=== PATIENT | female | born 1955 | race Caucasian/White ===

== ENCOUNTER 2016-07-27 08:10 | Emergency (ER) | payer MEDICARE, MEDICAID ==
[~2016-07-27 08:10] MED LIST: ACET50TA PO; ACID1CAP PO; ADV250INH INH; ALBU17IN2 INH; ALBUTEROL INH INH; ANTI25TA; ANTI50TA PO; ANTISOL30 AD; ANTIVERT PO; BABY81CH; BACITAB3 PO; BACT400T OR; CARI350T20 PO; CIPRHCOTIC AD; CLON0.5T PO; COLA100C PO; COLACE PO; CYCL10TA PO; DIFL50TA; DIPH2.5L; DIPH2.5L PO; DRIS50002 PO; DULC5TAB PO; ELIQ2.5T PO; ELIQ5TAB PO; FIBERCON PO; FLEX10TA2 PO; FLON0.05; FLON0.054; HYDR-3716 PO; HYDR12.55 PO; IBUP200C PO; IMMODIUM PO; IMOD2CHW PO; IMOD2TAB14 PO; KLON0.5T PO; KLONOPIN PO; KLOR20TA PO; LAMI25TA PO; LEVA250T PO; LIDO2JELLY TOP; LISI10TA4 PO; LOMO2.5T PO; LOPE2CA PO; LOPE2TAB PO; LORA10TA2 PO; MAAL600C PO; MACR100C3 PO; MECL-68 PO; MICR10CA PO; MIRA3350 PO; MOTR200T4; MOTR200T4 PO; NASONEX; NITR50CA2 PO; NORC7.5T PO; OMEP40CA2 PO; POLYBTL PO; POTA10CA2 PO; POTASSIUM PO; PROM125TA PO; PROM25SU5 PR; PROM25TA3 PO; PROM50TA2 PO; PROT1TAB2 PO; PULM0.25 INH; SALI0.653; SENO8.6T10 PO; SUDA30TA PO; SUDO30TA PO; TUMS500C PO; TYLE167L PO; TYLE325T5 PO; VALT500T OR; VICO5TAB; VICO5TAB PO; ZOFR20TA PO; ZPACK OR; ZYPR10TA PO; ZYPR2.5T2 PO; [UNRECOGNIZED DRUG - CODE] PO; compazine OR
[2016-07-27] MEDS ORDERED: AMOXICILLIN 500 MG CAP As Ordered ONE (09:53)
--- NOTE | 2016-07-27 10:19 | EDDOCDS ---
Physician Documentation [facility] Name: Sole Ramirez Age: 61 yrs Sex: Female : 1955 Arrival Date: 07/27/2016 Time: 08:10 Bed 18 Private MD: Koffi Shea Disposition: 07/27/16 09:32 Discharged to Home/Self Care. Impression: Streptococcal pharyngitis, Urinary tract infection, site not specified. - Condition is Stable. - Discharge Instructions: Strep Throat, Urinary Tract Infection. - Prescriptions for Amoxicillin 500 mg Oral Capsule - take 1 capsule by ORAL route every 8 hours for 10 days; 30 tablet. magic mouthwash Mucous Membrane Solution - as directed 5 milliliters by ORAL route 3-4 times daily As needed GARGLE, SWISH, SPIT. MAALOX, LIQUID BENADRYL, VISCOUS LIDOCAINE. 1:1:1; 237 milliliter. - Medication Reconciliation, Local Pharmacy Hours form. - Follow up: Emergency Department; When: As needed; Reason: Worsening of conditions. Follow up: Private Physician; When: 2 - 3 days; Reason: Wound/Symptom Recheck, Recheck today's complaints, Continuance of care. - Problem is new. - Symptoms are unchanged. Historical: - Allergies: Darvocet-N 100 (Hives); Darvon (itching); Demerol (Vomit); Macrodantin (Vomit); PENICILLINS (Hives); - Home Meds: 1. albuterol sulfate 90 mcg/actuation Inhl HFAA 2 puffs every 4-6 hours (Last dose: 07/27/2016 07:00) 2. Eliquis 5 mg oral tab 1 tab 2 times per day (Last dose: 07/27/2016 07:00) 3. hydrocodone-acetaminophen 7.5-750 mg Oral tab 1 tab every 4 hours as needed for Pain &#13(Last dose: 07/27/2016 07:00) 4. Klonopin 0.25 mg Oral tab 1 tab nightly (Last dose: 07/26/2016 20:00) 5. Lamictal 25 mg Oral tab 2 times per day (Last dose: 07/27/2016 07:00) 6. Lomotil 2.5-0.025 mg oral tab 2 tabs 3 times per day (Last dose: 07/27/2016 07:00) 7. loperamide 2 mg Oral tab as needed (Last dose: 07/27/2016 07:00) 8. meclizine 50 mg Oral tab 1 tab 2 times per day (Last dose: 07/27/2016 07:00) 9. Miralax 17 gram/dose Oral powd once daily (Last dose: 07/27/2016 07:00) 10. Motrin 400 mg Oral tab 1 tab every 4 hours (Last dose: 07/27/2016 07:00) 11. potassium chloride 20 mEq Oral TbER 1 tab as needed (Last dose: 07/27/2016 07:00) 12. promethazine 25 mg Oral tab 1 tab every 6 hours as needed (Last dose: 07/27/2016 07:00) 13. Sudafed 60 mg Oral tab 1 tab twice a day (Last dose: 07/27/2016 07:00) 14. Zyprexa 2.5 mg Oral tab once daily (Last dose: 07/27/2016 07:00) - PMHx: Anxiety; Asthma; Bipolar disorder; Cancer, Bone; Chronic Back pain; chronic vega catheter; DVT; GERD; spinal tumor; - PSHx: spinal tumor removed; Appendectomy; Hernia repair; - Social history: Smoking status: Patient states was never smoker of tobacco. No barriers to communication noted, Speaks appropriately for age. - Family history: Not pertinent. - : The pt / caregiver states he / she is on a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: Eliquis Home medication list is obtained from the patient, Unable to Verify Home Med List with the patient / caregiver. - Exposure Risk Screening:: None identified. Vital Signs: 07/27 08:16 BP 176 / 95; Pulse 82; Resp 18; Temp 97.3(TE); Pulse Ox 97% on R/A; Weight 77.11 kg / dem1 170 lbs; Height 4 ft. 11 in. (149.86 cm) (R); Pain 9/10; 09:36 BP 144 / 77; Pulse 74; Resp 18; Temp 97.9(O); Pulse Ox 96% on R/A; Pain 10/10; nb2 08:16 Body Mass Index 34.34 (77.11 kg, 149.86 cm) dem1 MDM: 08:30 Urinalysis Ordered. EDMS 08:30 Urine Culture Ordered. EDMS 08:39 Strep Screen, Nursing ordered. dt4 08:49 [facility] Payment Agreement was scanned into [employer] and attached to record. dm19 08:49 Financial registration complete. dm19 09:31 Amoxicillin 500 mg PO once ordered. dt4 Administered Medications: 09:52 Drug: Amoxicillin 500 mg [amoxicillin 500 mg capsule (1 caps)] Route: PO; ml6 Signatures: Dispatcher [employer] EDMS Adi Cain RN RN ml6 Letty Shaw, JOSH PAJesse dt4 Letty Henry dm19 The chart was reviewed and I authenticate all verbal orders and agree with the evaluation and treatment provided.Attachments: 08:49 [facility] Payment Agreement dm19 MTDD
--- NOTE | 2016-07-27 10:19 | EDDOCDS ---
Nurse's Notes [facility] Name: Sole Ramirez Age: 61 yrs Sex: Female : 1955 Arrival Date: 07/27/2016 Time: 08:10 Bed 18 Private MD: Koffi Shea Diagnosis: Streptococcal pharyngitis;Urinary tract infection, site not specified Presentation: 07/27 08:28 Presenting complaint: Patient states: states that she noticed blood in her catheter 2 ml6 days ago, patient states that she is suppose to change the tubing to her catheter biweekly, but hasn't changed it in two weeks. Adult Sepsis Screening: The patient does not have new or worsening altered mentation. Patient's respiratory rate is less than 22. Systolic blood pressure is greater than 100. Patient has a qSOFA score of 0- Negative Sepsis Screen. Suicide/Homicide risk assessment- the patient denies having any suicidal and/or homicidal ideations and does not present with any other emotional, behavioral or mental health complaints. Status: Patient is not a community service representative or dependent. Transition of care: patient was not received from another setting of care. 08:28 Acuity: KIM Level 4 ml6 08:28 Method Of Arrival: Ambulance ml6 Triage Assessment: 08:28 General: Appears in no apparent distress, comfortable, Behavior is appropriate for age, ml6 cooperative. Pain: Denies pain. HIV screening NA for this visit Offered previously. Neurological: No deficits noted. Level of Consciousness is awake, alert, Oriented to person, place, time, Players [employer] Representative are equal bilaterally Moves all extremities. Full function Gait is steady, Speech is normal. Cardiovascular: No deficits noted. Capillary refill < 3 seconds is brisk Heart tones S1 S2 present Edema is absent. Pulses are all present. : Vega in place to gravity drainage. Historical: - Allergies: Darvocet-N 100 (Hives); Darvon (itching); Demerol (Vomit); Macrodantin (Vomit); PENICILLINS (Hives); - Home Meds: 1. albuterol sulfate 90 mcg/actuation Inhl HFAA 2 puffs every 4-6 hours (Last dose: 07/27/2016 07:00) 2. Eliquis 5 mg oral tab 1 tab 2 times per day (Last dose: 07/27/2016 07:00) 3. hydrocodone-acetaminophen 7.5-750 mg Oral tab 1 tab every 4 hours as needed for Pain &#13(Last dose: 07/27/2016 07:00) 4. Klonopin 0.25 mg Oral tab 1 tab nightly (Last dose: 07/26/2016 20:00) 5. Lamictal 25 mg Oral tab 2 times per day (Last dose: 07/27/2016 07:00) 6. Lomotil 2.5-0.025 mg oral tab 2 tabs 3 times per day (Last dose: 07/27/2016 07:00) 7. loperamide 2 mg Oral tab as needed (Last dose: 07/27/2016 07:00) 8. meclizine 50 mg Oral tab 1 tab 2 times per day (Last dose: 07/27/2016 07:00) 9. Miralax 17 gram/dose Oral powd once daily (Last dose: 07/27/2016 07:00) 10. Motrin 400 mg Oral tab 1 tab every 4 hours (Last dose: 07/27/2016 07:00) 11. potassium chloride 20 mEq Oral TbER 1 tab as needed (Last dose: 07/27/2016 07:00) 12. promethazine 25 mg Oral tab 1 tab every 6 hours as needed (Last dose: 07/27/2016 07:00) 13. Sudafed 60 mg Oral tab 1 tab twice a day (Last dose: 07/27/2016 07:00) 14. Zyprexa 2.5 mg Oral tab once daily (Last dose: 07/27/2016 07:00) - PMHx: Anxiety; Asthma; Bipolar disorder; Cancer, Bone; Chronic Back pain; chronic vega catheter; DVT; GERD; spinal tumor; - PSHx: spinal tumor removed; Appendectomy; Hernia repair; - Social history: Smoking status: Patient states was never smoker of tobacco. No barriers to communication noted, Speaks appropriately for age. - Family history: Not pertinent. - : The pt / caregiver states he / she is on a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: Eliquis Home medication list is obtained from the patient, Unable to Verify Home Med List with the patient / caregiver. - Exposure Risk Screening:: None identified. Screenin:16 Screening information is obtained from the patient. Fall risk: No risks identified. ml6 Assistance ADL's: requires no assistance with activities of daily living. Abuse/DV Screen: The patient / caregiver reports he/she is: not in a situation that causes fear, pain or injury. Nutritional screening: No deficits noted. Advance Directives: Currently, there is no health care proxy. home support is adequate. Assessment: 08:38 General: Appears in no apparent distress, comfortable. General: see triage assessment. ml6 Pain: Denies pain. 10:17 General: Appears in no apparent distress, comfortable, Behavior is appropriate for age, ml6 cooperative. Pain: Denies pain. Neurological: No deficits noted. Level of Consciousness is awake, alert, Oriented to person, place, time, Players [employer] Representative are equal bilaterally. Cardiovascular: No deficits noted. Capillary refill < 3 seconds is brisk in bilateral fingers toes. Respiratory: No deficits noted. Airway is patent Respiratory effort is even, unlabored, Respiratory pattern is regular, symmetrical, Breath sounds are clear bilaterally. GI: No deficits noted. Abdomen is flat, non- distended Bowel sounds present X 4 quads. Abd is soft and non tender X 4 quads. Vital Signs: 08:16 BP 176 / 95; Pulse 82; Resp 18; Temp 97.3(TE); Pulse Ox 97% on R/A; Weight 77.11 kg; dem1 Height 4 ft. 11 in. (149.86 cm) (R); Pain 9/10; 09:36 BP 144 / 77; Pulse 74; Resp 18; Temp 97.9(O); Pulse Ox 96% on R/A; Pain 10/10; nb2 08:16 Body Mass Index 34.34 (77.11 kg, 149.86 cm) [facility] Vitals: 08:16 Log In Time N/A - ambulance arrival. dem1 09:09 Strep Screen is obtained and tested: Positive. ml6 ED Course: 08:11 Patient visited by Janis Pierre PCA. ar3 08:11 Koffi Shea MD is Private Physician. ar3 08:11 Patient moved to Waiting ar3 08:11 Patient moved to 18 ar3 08:18 Patient visited by Francisco Madden. dem1 08:18 Pt greeted and oriented to ED. Patient advised of names of staff involved in care, [facility] location of call [place], wait times and NPO status. Patient has correct armband on for positive identification. Placed in gown. Call light in reach. Side rails up X2. 08:29 Letty Shaw [facility]C [facility] dt4 08:29 Antonio Chairez MD is Attending Physician. dt4 08:29 Patient visited by Letty Shaw PA-C. dt4 08:29 Triage Initiated ml6 08:49 [facility] Payment Agreement was scanned into [employer] and attached to record. dm19 08:53 Patient visited by Adi Cain, GEORGE. ml6 09:00 Patient name changed from Sole\S\\S\Lettiere\S\ to Sole\S\J\S\Lettiere. EDMS 09:33 Adi Cain, GEORGE is Primary Nurse. ml6 09:37 Patient visited by Anita Ramos. nb2 10:16 The patient / caregiver is instructed regarding the plan of care and ED course. ml6 10:16 No IV's were initiated during this patient's visit. No procedures done that require ml6 assistance. Administered Medications: 09:52 Drug: Amoxicillin 500 mg [amoxicillin 500 mg capsule (1 caps)] Route: PO; ml6 Order Results: Lab Order: Urinalysis; SPEC'M 07/27/16 09:08 Test: APPEARANCE, URINE; Value: HAZY; Range: CLEAR; Status: F Test: COLOR, URINE; Value: YELLOW; Range: YELLOW; Status: F Test: PH,URINE; Value: 8.0; Range: 5.0-9.0; Units: UNITS; Status: F Test: SPECIFIC GRAVITY URINE AUTO; Value: 1.012; Range: 1.002-1.035; Status: F Test: PROTEIN, URINE AUTO; Value: 1+; Range: NEGATIVE; Abnormal: Above high normal; Units: mg/dL; Status: F Test: GLUCOSE, URINE (UA) AUTO; Value: NEGATIVE; Range: NEGATIVE; Units: mg/dL; Status: F Test: KETONE, URINE AUTO; Value: NEGATIVE; Range: NEGATIVE; Units: mg/dL; Status: F Test: UROBILINOGEN, URINE AUTO; Value: 0.2; Range: 0.0-2.0; Units: mg/dL; Status: F Test: BILIRUBIN, URINE AUTO; Value: NEGATIVE; Range: NEGATIVE; Status: F Test: NITRITE, URINE AUTO; Value: POSITIVE; Range: NEGATIVE; Status: F Test: LEUKOCYTE ESTERASE, URINE AUTO; Value: 1+; Range: NEGATIVE; Abnormal: Above high normal; Status: F Test: BLOOD, URINE BLOOD; Value: 2+; Range: NEGATIVE; Abnormal: Above high normal; Status: F Test: WBC, URINE AUTO; Value: 14; Range: 0-3; Abnormal: Above high normal; Units: /HPF; Status: F Test: RBC, URINE AUTO; Value: 177; Range: 0-3; Abnormal: Above high normal; Units: /HPF; Status: F Test: BACTERIA, URINE AUTO; Value: NEGATIVE; Range: NEGATIVE; Status: F Test: SQUAMOUS EPITHELIAL CELL UR AU; Value: 0; Range: 0-6; Units: /HPF; Status: F Test: MUCUS, URINE; Value: SMALL; Range: NEGATIVE; Status: F Test: HYALINE CAST, URINE AUTO; Value: 0; Range: 0-1; Units: /LPF; Status: F Test: AMORPHOUS SEDIMENT; Value: SMALL; Range: NEGATIVE; Abnormal: Above high normal; Status: F Outcome: 09:32 Discharge ordered by Provider. dt4 10:18 Discharge Assessment: patient administered narcotics - no. The following High Risk ml6 Discharge criteria are identified: None. Discharged to home via wheelchair. Condition: stable. Discharge instructions given to patient, Instructed on discharge instructions, follow up and referral plans. medication usage, Demonstrated understanding of instructions, medications, Pt was receptive of discharge instructions/ teaching. Prescriptions given X 2. No special radiology studies were completed. Property sent home with patient. :Personal belongings accompany Pt. 10:18 Patient left the ED. ml6 Signatures: Dispatcher [employer] EDMS Adi Cain RN RN ml6 Janis Pierre, SWEATBAND PERFORATOR SWEATBAND PERFORATOR ar3 Francisco Madden dem1 Letty Shaw PA-C PA-C dt4 Anita Ramos2 Letty Henry dm19 Corrections: (The following items were deleted from the chart) 08:18 08:16 BP 176 / 95; Pulse 82bpm; Resp 18bpm; Pulse Ox 97% RA; Temp 97.3F Temporal; dem1 Height 4 ft. 11 in. Reported; Pain 9/10; dem1 MTDD
--- NOTE | 2016-07-30 10:45 | EDDOCDS ---
Physician Documentation [facility] Name: Sole Ramirez Age: 61 yrs Sex: Female : 1955 Arrival Date: 07/27/2016 Time: 08:10 Bed 18 Private MD: Koffi Shea Disposition: 07/27/16 09:32 Discharged to Home/Self Care. Impression: Streptococcal pharyngitis, Urinary tract infection, site not specified. - Condition is Stable. - Discharge Instructions: Strep Throat, Urinary Tract Infection. - Prescriptions for Amoxicillin 500 mg Oral Capsule - take 1 capsule by ORAL route every 8 hours for 10 days; 30 tablet. magic mouthwash Mucous Membrane Solution - as directed 5 milliliters by ORAL route 3-4 times daily As needed GARGLE, SWISH, SPIT. MAALOX, LIQUID BENADRYL, VISCOUS LIDOCAINE. 1:1:1; 237 milliliter. - Medication Reconciliation, Local Pharmacy Hours form. - Follow up: Emergency Department; When: As needed; Reason: Worsening of conditions. Follow up: Private Physician; When: 2 - 3 days; Reason: Wound/Symptom Recheck, Recheck today's complaints, Continuance of care. - Problem is new. - Symptoms are unchanged. Historical: - Allergies: Darvocet-N 100 (Hives); Darvon (itching); Demerol (Vomit); Macrodantin (Vomit); PENICILLINS (Hives); - Home Meds: 1. albuterol sulfate 90 mcg/actuation Inhl HFAA 2 puffs every 4-6 hours (Last dose: 07/27/2016 07:00) 2. Eliquis 5 mg oral tab 1 tab 2 times per day (Last dose: 07/27/2016 07:00) 3. hydrocodone-acetaminophen 7.5-750 mg Oral tab 1 tab every 4 hours as needed for Pain &#13(Last dose: 07/27/2016 07:00) 4. Klonopin 0.25 mg Oral tab 1 tab nightly (Last dose: 07/26/2016 20:00) 5. Lamictal 25 mg Oral tab 2 times per day (Last dose: 07/27/2016 07:00) 6. Lomotil 2.5-0.025 mg oral tab 2 tabs 3 times per day (Last dose: 07/27/2016 07:00) 7. loperamide 2 mg Oral tab as needed (Last dose: 07/27/2016 07:00) 8. meclizine 50 mg Oral tab 1 tab 2 times per day (Last dose: 07/27/2016 07:00) 9. Miralax 17 gram/dose Oral powd once daily (Last dose: 07/27/2016 07:00) 10. Motrin 400 mg Oral tab 1 tab every 4 hours (Last dose: 07/27/2016 07:00) 11. potassium chloride 20 mEq Oral TbER 1 tab as needed (Last dose: 07/27/2016 07:00) 12. promethazine 25 mg Oral tab 1 tab every 6 hours as needed (Last dose: 07/27/2016 07:00) 13. Sudafed 60 mg Oral tab 1 tab twice a day (Last dose: 07/27/2016 07:00) 14. Zyprexa 2.5 mg Oral tab once daily (Last dose: 07/27/2016 07:00) - PMHx: Anxiety; Asthma; Bipolar disorder; Cancer, Bone; Chronic Back pain; chronic vega catheter; DVT; GERD; spinal tumor; - PSHx: spinal tumor removed; Appendectomy; Hernia repair; - Social history: Smoking status: Patient states was never smoker of tobacco. No barriers to communication noted, Speaks appropriately for age. - Family history: Not pertinent. - : The pt / caregiver states he / she is on a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: Eliquis Home medication list is obtained from the patient, Unable to Verify Home Med List with the patient / caregiver. - Exposure Risk Screening:: None identified. Vital Signs: 07/27 08:16 BP 176 / 95; Pulse 82; Resp 18; Temp 97.3(TE); Pulse Ox 97% on R/A; Weight 77.11 kg / dem1 170 lbs; Height 4 ft. 11 in. (149.86 cm) (R); Pain 9/10; 09:36 BP 144 / 77; Pulse 74; Resp 18; Temp 97.9(O); Pulse Ox 96% on R/A; Pain 10/10; nb2 08:16 Body Mass Index 34.34 (77.11 kg, 149.86 cm) dem1 MDM: 08:30 Urinalysis Ordered. EDMS 08:30 Urine Culture Ordered. EDMS 08:39 Strep Screen, Nursing ordered. dt4 08:49 [facility] Payment Agreement was scanned into [employer] and attached to record. dm19 08:49 Financial registration complete. dm19 09:31 Amoxicillin 500 mg PO once ordered. dt4 11:38 T-Sheet-- Draft Copy was scanned into [employer] and attached to record. [facility] Administered Medications: 09:52 Drug: Amoxicillin 500 mg [amoxicillin 500 mg capsule (1 caps)] Route: PO; ml6 Signatures: Dispatcher [employer] Adi Barker, RN RN ml6 Letty Shaw, JOSH MORENO dt4 Sunitha Garcia Diane dm19 The chart was reviewed and I authenticate all verbal orders and agree with the evaluation and treatment provided.Attachments: 08:49 [facility] Payment Agreement dm19 11:38 T-Sheet-- Draft Copy [facility] Chart Complete MTDD
--- NOTE | 2016-07-30 10:45 | EDDOCDS ---
Nurse's Notes [facility] Name: Sole Ramirez Age: 61 yrs Sex: Female : 1955 Arrival Date: 07/27/2016 Time: 08:10 Bed 18 Private MD: Koffi Shea Diagnosis: Streptococcal pharyngitis;Urinary tract infection, site not specified Presentation: 07/27 08:28 Presenting complaint: Patient states: states that she noticed blood in her catheter 2 ml6 days ago, patient states that she is suppose to change the tubing to her catheter biweekly, but hasn't changed it in two weeks. Adult Sepsis Screening: The patient does not have new or worsening altered mentation. Patient's respiratory rate is less than 22. Systolic blood pressure is greater than 100. Patient has a qSOFA score of 0- Negative Sepsis Screen. Suicide/Homicide risk assessment- the patient denies having any suicidal and/or homicidal ideations and does not present with any other emotional, behavioral or mental health complaints. Status: Patient is not a service line layer or dependent. Transition of care: patient was not received from another setting of care. 08:28 Acuity: KIM Level 4 ml6 08:28 Method Of Arrival: Ambulance ml6 Triage Assessment: 08:28 General: Appears in no apparent distress, comfortable, Behavior is appropriate for age, ml6 cooperative. Pain: Denies pain. HIV screening NA for this visit Offered previously. Neurological: No deficits noted. Level of Consciousness is awake, alert, Oriented to person, place, time, Farmworker Machine are equal bilaterally Moves all extremities. Full function Gait is steady, Speech is normal. Cardiovascular: No deficits noted. Capillary refill < 3 seconds is brisk Heart tones S1 S2 present Edema is absent. Pulses are all present. : Vega in place to gravity drainage. Historical: - Allergies: Darvocet-N 100 (Hives); Darvon (itching); Demerol (Vomit); Macrodantin (Vomit); PENICILLINS (Hives); - Home Meds: 1. albuterol sulfate 90 mcg/actuation Inhl HFAA 2 puffs every 4-6 hours (Last dose: 07/27/2016 07:00) 2. Eliquis 5 mg oral tab 1 tab 2 times per day (Last dose: 07/27/2016 07:00) 3. hydrocodone-acetaminophen 7.5-750 mg Oral tab 1 tab every 4 hours as needed for Pain &#13(Last dose: 07/27/2016 07:00) 4. Klonopin 0.25 mg Oral tab 1 tab nightly (Last dose: 07/26/2016 20:00) 5. Lamictal 25 mg Oral tab 2 times per day (Last dose: 07/27/2016 07:00) 6. Lomotil 2.5-0.025 mg oral tab 2 tabs 3 times per day (Last dose: 07/27/2016 07:00) 7. loperamide 2 mg Oral tab as needed (Last dose: 07/27/2016 07:00) 8. meclizine 50 mg Oral tab 1 tab 2 times per day (Last dose: 07/27/2016 07:00) 9. Miralax 17 gram/dose Oral powd once daily (Last dose: 07/27/2016 07:00) 10. Motrin 400 mg Oral tab 1 tab every 4 hours (Last dose: 07/27/2016 07:00) 11. potassium chloride 20 mEq Oral TbER 1 tab as needed (Last dose: 07/27/2016 07:00) 12. promethazine 25 mg Oral tab 1 tab every 6 hours as needed (Last dose: 07/27/2016 07:00) 13. Sudafed 60 mg Oral tab 1 tab twice a day (Last dose: 07/27/2016 07:00) 14. Zyprexa 2.5 mg Oral tab once daily (Last dose: 07/27/2016 07:00) - PMHx: Anxiety; Asthma; Bipolar disorder; Cancer, Bone; Chronic Back pain; chronic vega catheter; DVT; GERD; spinal tumor; - PSHx: spinal tumor removed; Appendectomy; Hernia repair; - Social history: Smoking status: Patient states was never smoker of tobacco. No barriers to communication noted, Speaks appropriately for age. - Family history: Not pertinent. - : The pt / caregiver states he / she is on a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: Eliquis Home medication list is obtained from the patient, Unable to Verify Home Med List with the patient / caregiver. - Exposure Risk Screening:: None identified. Screenin:16 Screening information is obtained from the patient. Fall risk: No risks identified. ml6 Assistance ADL's: requires no assistance with activities of daily living. Abuse/DV Screen: The patient / caregiver reports he/she is: not in a situation that causes fear, pain or injury. Nutritional screening: No deficits noted. Advance Directives: Currently, there is no health care proxy. home support is adequate. Assessment: 08:38 General: Appears in no apparent distress, comfortable. General: see triage assessment. ml6 Pain: Denies pain. 10:17 General: Appears in no apparent distress, comfortable, Behavior is appropriate for age, ml6 cooperative. Pain: Denies pain. Neurological: No deficits noted. Level of Consciousness is awake, alert, Oriented to person, place, time, Farmworker Machine are equal bilaterally. Cardiovascular: No deficits noted. Capillary refill < 3 seconds is brisk in bilateral fingers toes. Respiratory: No deficits noted. Airway is patent Respiratory effort is even, unlabored, Respiratory pattern is regular, symmetrical, Breath sounds are clear bilaterally. GI: No deficits noted. Abdomen is flat, non- distended Bowel sounds present X 4 quads. Abd is soft and non tender X 4 quads. Vital Signs: 08:16 BP 176 / 95; Pulse 82; Resp 18; Temp 97.3(TE); Pulse Ox 97% on R/A; Weight 77.11 kg; dem1 Height 4 ft. 11 in. (149.86 cm) (R); Pain 9/10; 09:36 BP 144 / 77; Pulse 74; Resp 18; Temp 97.9(O); Pulse Ox 96% on R/A; Pain 10/10; nb2 08:16 Body Mass Index 34.34 (77.11 kg, 149.86 cm) [facility] Vitals: 08:16 Log In Time N/A - ambulance arrival. dem1 09:09 Strep Screen is obtained and tested: Positive. ml6 ED Course: 08:11 Patient visited by Janis Pierre PCA. ar3 08:11 Koffi Shea MD is Private Physician. ar3 08:11 Patient moved to Waiting ar3 08:11 Patient moved to 18 ar3 08:18 Patient visited by Francisco Madden. dem1 08:18 Pt greeted and oriented to ED. Patient advised of names of staff involved in care, [facility] location of call [place], wait times and NPO status. Patient has correct armband on for positive identification. Placed in gown. Call light in reach. Side rails up X2. 08:29 [facility] dt4 08:29 Antonio Chairez MD is Attending Physician. dt4 08:29 Patient visited by Letty Shaw PA-C. dt4 08:29 Triage Initiated ml6 08:49 [facility] Payment Agreement was scanned into [employer] and attached to record. dm19 08:53 Patient visited by Adi Cain, GEORGE. ml6 09:00 Patient name changed from Sole\S\\S\Lettiere\S\ to Sole\S\J\S\Lettiere. EDMS 09:33 Adi Cain, GEORGE is Primary Nurse. ml6 09:37 Patient visited by Anita Ramos. nb2 10:16 The patient / caregiver is instructed regarding the plan of care and ED course. ml6 10:16 No IV's were initiated during this patient's visit. No procedures done that require ml6 assistance. 11:38 T-Sheet-- Draft Copy was scanned into [employer] and attached to record. seh Administered Medications: 09:52 Drug: Amoxicillin 500 mg [amoxicillin 500 mg capsule (1 caps)] Route: PO; ml6 Order Results: Lab Order: Urinalysis; SPEC'M 07/27/16 09:08 Test: APPEARANCE, URINE; Value: HAZY; Range: CLEAR; Status: F Test: COLOR, URINE; Value: YELLOW; Range: YELLOW; Status: F Test: PH,URINE; Value: 8.0; Range: 5.0-9.0; Units: UNITS; Status: F Test: SPECIFIC GRAVITY URINE AUTO; Value: 1.012; Range: 1.002-1.035; Status: F Test: PROTEIN, URINE AUTO; Value: 1+; Range: NEGATIVE; Abnormal: Above high normal; Units: mg/dL; Status: F Test: GLUCOSE, URINE (UA) AUTO; Value: NEGATIVE; Range: NEGATIVE; Units: mg/dL; Status: F Test: KETONE, URINE AUTO; Value: NEGATIVE; Range: NEGATIVE; Units: mg/dL; Status: F Test: UROBILINOGEN, URINE AUTO; Value: 0.2; Range: 0.0-2.0; Units: mg/dL; Status: F Test: BILIRUBIN, URINE AUTO; Value: NEGATIVE; Range: NEGATIVE; Status: F Test: NITRITE, URINE AUTO; Value: POSITIVE; Range: NEGATIVE; Status: F Test: LEUKOCYTE ESTERASE, URINE AUTO; Value: 1+; Range: NEGATIVE; Abnormal: Above high normal; Status: F Test: BLOOD, URINE BLOOD; Value: 2+; Range: NEGATIVE; Abnormal: Above high normal; Status: F Test: WBC, URINE AUTO; Value: 14; Range: 0-3; Abnormal: Above high normal; Units: /HPF; Status: F Test: RBC, URINE AUTO; Value: 177; Range: 0-3; Abnormal: Above high normal; Units: /HPF; Status: F Test: BACTERIA, URINE AUTO; Value: NEGATIVE; Range: NEGATIVE; Status: F Test: SQUAMOUS EPITHELIAL CELL UR AU; Value: 0; Range: 0-6; Units: /HPF; Status: F Test: MUCUS, URINE; Value: SMALL; Range: NEGATIVE; Status: F Test: HYALINE CAST, URINE AUTO; Value: 0; Range: 0-1; Units: /LPF; Status: F Test: AMORPHOUS SEDIMENT; Value: SMALL; Range: NEGATIVE; Abnormal: Above high normal; Status: F Lab Order: Urine Culture; SPEC'M 07/27/16 09:08 Test: URINE CULTURE; Value: ORGANISM 1: ESCHERICHIA COLI; Status: F Test: URINE CULTURE; Value: ESCHERICHIA COLI; Status: F Test: URINE CULTURE; Value: COLONY COUNT CFU/ml >100,000; Status: F Test: URINE CULTURE; Value: GRAM NEG SENSI - VITEK 80; Status: F Test: URINE CULTURE; Value: Method: VIT2; Status: F Test: URINE CULTURE; Value: EXTD BRD SPCTRM BETA LACTAMASE -; Status: F Test: URINE CULTURE; Value: TRIMETHOPRIM/SULFAMETHOXAZOLE <=20 S; Status: F Test: URINE CULTURE; Value: AMPICILLIN >=32 R; Status: F Test: URINE CULTURE; Value: GENTAMICIN <=1 S; Status: F Test: URINE CULTURE; Value: NITROFURANTOIN <=16 S; Status: F Test: URINE CULTURE; Value: CEFAZOLIN <=4 S; Status: F Test: URINE CULTURE; Value: LEVOFLOXACIN >=8 R; Status: F Test: URINE CULTURE; Value: TOBRAMYCIN <=1 S; Status: F Test: URINE CULTURE; Value: CEFTRIAXONE <=1 S; Status: F Test: URINE CULTURE; Value: CEFTAZIDIME <=1 S; Status: F Test: URINE CULTURE; Value: AMPICILLIN/SULBACTAM 16 I; Status: F Test: URINE CULTURE; Value: PIPERACILLIN/TAZOBACTAM <=4 S; Status: F Test: URINE CULTURE; Value: AZTREONAM <=1 S; Status: F Test: URINE CULTURE; Value: ERTAPENEM <=0.5 S; Status: F Test: URINE CULTURE; Value: MEROPENEM <=0.25 S; Status: F Test: URINE CULTURE; Value: TIGECYCLINE <=0.5 S; Status: F Test: URINE CULTURE; Value: CEFEPIME <=1 S; Status: F Outcome: 09:32 Discharge ordered by Provider. dt4 10:18 Discharge Assessment: patient administered narcotics - no. The following High Risk ml6 Discharge criteria are identified: None. Discharged to home via wheelchair. Condition: stable. Discharge instructions given to patient, Instructed on discharge instructions, follow up and referral plans. medication usage, Demonstrated understanding of instructions, medications, Pt was receptive of discharge instructions/ teaching. Prescriptions given X 2. No special radiology studies were completed. Property sent home with patient. :Personal belongings accompany Pt. 10:18 Patient left the ED. ml6 Signatures: Dispatcher [employer] Adi Barker RN RN ml6 Janis Pierre, [employer] ar3 Francisco Madden dem1 Letty Shaw PA-C PA-C dt4 Sunitha Garcia Nicole nb2 McLear, Diane dm19 Corrections: (The following items were deleted from the chart) 08:18 08:16 BP 176 / 95; Pulse 82bpm; Resp 18bpm; Pulse Ox 97% RA; Temp 97.3F Temporal; dem1 Height 4 ft. 11 in. Reported; Pain 9/10; dem1 Chart Complete MTDD
--- NOTE | 2016-07-30 10:45 | EDDOCDS ---
Physician Documentation [facility] Name: Sole Ramirez Age: 61 yrs Sex: Female : 1955 Arrival Date: 07/27/2016 Time: 08:10 Bed 18 Private MD: Koffi Shea Disposition: 07/27/16 09:32 Discharged to Home/Self Care. Impression: Streptococcal pharyngitis, Urinary tract infection, site not specified. - Condition is Stable. - Discharge Instructions: Strep Throat, Urinary Tract Infection. - Prescriptions for Amoxicillin 500 mg Oral Capsule - take 1 capsule by ORAL route every 8 hours for 10 days; 30 tablet. magic mouthwash Mucous Membrane Solution - as directed 5 milliliters by ORAL route 3-4 times daily As needed GARGLE, SWISH, SPIT. MAALOX, LIQUID BENADRYL, VISCOUS LIDOCAINE. 1:1:1; 237 milliliter. - Medication Reconciliation, Local Pharmacy Hours form. - Follow up: Emergency Department; When: As needed; Reason: Worsening of conditions. Follow up: Private Physician; When: 2 - 3 days; Reason: Wound/Symptom Recheck, Recheck today's complaints, Continuance of care. - Problem is new. - Symptoms are unchanged. Historical: - Allergies: Darvocet-N 100 (Hives); Darvon (itching); Demerol (Vomit); Macrodantin (Vomit); PENICILLINS (Hives); - Home Meds: 1. albuterol sulfate 90 mcg/actuation Inhl HFAA 2 puffs every 4-6 hours (Last dose: 07/27/2016 07:00) 2. Eliquis 5 mg oral tab 1 tab 2 times per day (Last dose: 07/27/2016 07:00) 3. hydrocodone-acetaminophen 7.5-750 mg Oral tab 1 tab every 4 hours as needed for Pain &#13(Last dose: 07/27/2016 07:00) 4. Klonopin 0.25 mg Oral tab 1 tab nightly (Last dose: 07/26/2016 20:00) 5. Lamictal 25 mg Oral tab 2 times per day (Last dose: 07/27/2016 07:00) 6. Lomotil 2.5-0.025 mg oral tab 2 tabs 3 times per day (Last dose: 07/27/2016 07:00) 7. loperamide 2 mg Oral tab as needed (Last dose: 07/27/2016 07:00) 8. meclizine 50 mg Oral tab 1 tab 2 times per day (Last dose: 07/27/2016 07:00) 9. Miralax 17 gram/dose Oral powd once daily (Last dose: 07/27/2016 07:00) 10. Motrin 400 mg Oral tab 1 tab every 4 hours (Last dose: 07/27/2016 07:00) 11. potassium chloride 20 mEq Oral TbER 1 tab as needed (Last dose: 07/27/2016 07:00) 12. promethazine 25 mg Oral tab 1 tab every 6 hours as needed (Last dose: 07/27/2016 07:00) 13. Sudafed 60 mg Oral tab 1 tab twice a day (Last dose: 07/27/2016 07:00) 14. Zyprexa 2.5 mg Oral tab once daily (Last dose: 07/27/2016 07:00) - PMHx: Anxiety; Asthma; Bipolar disorder; Cancer, Bone; Chronic Back pain; chronic vega catheter; DVT; GERD; spinal tumor; - PSHx: spinal tumor removed; Appendectomy; Hernia repair; - Social history: Smoking status: Patient states was never smoker of tobacco. No barriers to communication noted, Speaks appropriately for age. - Family history: Not pertinent. - : The pt / caregiver states he / she is on a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: Eliquis Home medication list is obtained from the patient, Unable to Verify Home Med List with the patient / caregiver. - Exposure Risk Screening:: None identified. Vital Signs: 07/27 08:16 BP 176 / 95; Pulse 82; Resp 18; Temp 97.3(TE); Pulse Ox 97% on R/A; Weight 77.11 kg / dem1 170 lbs; Height 4 ft. 11 in. (149.86 cm) (R); Pain 9/10; 09:36 BP 144 / 77; Pulse 74; Resp 18; Temp 97.9(O); Pulse Ox 96% on R/A; Pain 10/10; nb2 08:16 Body Mass Index 34.34 (77.11 kg, 149.86 cm) dem1 MDM: 08:30 Urinalysis Ordered. EDMS 08:30 Urine Culture Ordered. EDMS 08:39 Strep Screen, Nursing ordered. dt4 08:49 [facility] Payment Agreement was scanned into [employer] and attached to record. dm19 08:49 Financial registration complete. dm19 09:31 Amoxicillin 500 mg PO once ordered. dt4 11:38 T-Sheet-- Draft Copy was scanned into [employer] and attached to record. [facility] Administered Medications: 09:52 Drug: Amoxicillin 500 mg [amoxicillin 500 mg capsule (1 caps)] Route: PO; ml6 Signatures: Dispatcher [employer] Adi Barker, RN RN ml6 Letty Shaw, JOSH MORENO dt4 Sunitha Garcia Diane dm19 The chart was reviewed and I authenticate all verbal orders and agree with the evaluation and treatment provided.Attachments: 08:49 [facility] Payment Agreement dm19 11:38 T-Sheet-- Draft Copy [facility] Chart Complete MTDD
== END 2016-07-27 10:18 | disposition home or self-care (01) ==
LOC: M ED 08:10
DX: N39.0 Urinary tract infection, site not specified (principal); J02.0 Streptococcal pharyngitis; J45.909 Unspecified asthma, uncomplicated; F41.9 Anxiety disorder, unspecified; F31.9 Bipolar disorder, unspecified; G89.4 Chronic pain syndrome; M51.9 Unspecified thoracic, thoracolumbar and lumbosacral intervertebral disc disorder; K21.9 Gastro-esophageal reflux disease without esophagitis; Z96.0 Presence of urogenital implants; Z79.01 Long term (current) use of a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; Z79.899 Other long term (current) drug therapy; Z88.5 Allergy status to narcotic agent; Z88.0 Allergy status to penicillin; Z88.1 Allergy status to other antibiotic agents; Z86.718 Personal history of other venous thrombosis and embolism

== ENCOUNTER 2016-07-29 07:01 | Emergency (ER) | payer MEDICARE, MEDICAID ==
--- NOTE | 2016-07-29 08:39 | REP ---
CT Head without contrast HISTORY: Trauma COMPARISON: 10/08/2015 There is no intraparenchymal hemorrhage, acute infarct, mass or midline shift. The ventricular system and cortical sulci are dilated consistent with minimal volume loss. There is no extra cerebral collection. There is no fracture. The visualized sinuses are clear. IMPRESSION: Minimal volume loss. Signed by Myles Nesbitt MD 07/29/2016 08:30 A
[2016-07-29] MEDS ORDERED: ANEXSIA, NORCO 7.5MG/325MG TABLET(HYDROCODONE/APAP) As Ordered ONE (08:45)
--- NOTE | 2016-07-29 09:01 | REP ---
Clinical: Trauma. Technique: AP, lateral, bilateral oblique and sunrise views of the right and left knee. Comparison: Left knee dated 07/05/2016. Findings: Moderate, symmetric, tricompartmental osteoarthritic degenerative changes are appreciated. Left knee is unchanged when compared to prior examination. There is no evidence for acute fracture / compression injury or subluxation. A small chronic left suprapatellar effusion cannot be excluded. No right effusion identified. Impression: 1. Moderate symmetric bilateral tricompartmental osteoarthritic degenerative changes. 2. Cannot exclude small chronic left suprapatellar effusion. Signed by Boyd Ford MD 07/29/2016 08:53 A
--- NOTE | 2016-07-29 09:12 | REP ---
CT study of the cervical spine without contrast: History: Trauma. Comparison CT study is from November 15, 2014. Technique: Helical scanning is acquired and overlapping 2 mm high resolution axial images were generated and reviewed at bone and soft tissue window settings. Coronal and sagittal multiplanar re-formations images are generated. CT findings: There is no evidence of cervical spine element fracture. No skull base fracture is seen. Cervical vertebral body heights are preserved. Alignment is normal. There is reversal of the normal cervical lordosis and a levoconvex curve is seen on coronal multiplanar re-formation images. This may reflect spasm. There is degenerative disc disease at C5-6 and some osteoarthritic facet changes are noted. There is osteoarthritis is C1-2 again noted. Facet joints are normally aligned bilaterally at each cervical level on multiplanar re-formations images. There is no evidence of intraspinal or paraspinal hematoma. No extra vertebral abnormality is seen. Impression: Degenerative spondylosis, reversal of the normal cervical lordosis, and levoconvex curvature consistent with spasm. Otherwise negative CT study of the cervical spine without contrast. No fracture seen. Signed by Trung Jensen MD 07/29/2016 10:30 A
--- NOTE | 2016-07-29 09:13 | REP ---
CT THORACIC SPINE WITHOUT CONTRAST: HISTORY: Trauma. There is no acute fracture or subluxation. There is no definite disc bulge or herniation. The spinal canal and neural foramina are patent. The intervertebral discs are normal in height. There is scoliosis of the mid and lower thoracic spine convex to the left. IMPRESSION: There is no acute fracture or subluxation. Signed by Myles Nesbitt MD 07/29/2016 09:29 A
--- NOTE | 2016-07-29 09:14 | REP ---
CT lumbosacral spine 07/29/2016 Indication: Trauma Comparison: CT abdomen pelvis 05/20/2015 Technique: 4 mm reconstructed axial images were obtained of the lumbosacral spine without contrast. Sagittal and coronal reconstructed images were also created. Findings: There is significant rotatory dextroscoliosis of the lumbar spine. Advanced degenerative disc changes are noted at L1-2, L4-5, L5- S1. There has been previous bilateral L5 laminectomy defects. There is no acute fracture or paraspinal widening. Stable 9 mm hyperdense focus within the lower pole left kidney most compatible with hemorrhagic cyst. 1.3 cm exophytic cyst is noted off lower pole kidney. There is dilatation of left renal pelvis most compatible with a extrarenal pelvis. Visualized portions of the SI joints are intact. Benign appearing erosions are seen within the lower sacrum and coccyx, most compatible with a meningocele. Impression: Significant rotatory dextroscoliosis of the lumbar spine. No acute fracture or spondylolisthesis. Degenerative disc changes at multiple levels as above. Previous bilateral L5 laminectomies. Benign appearing erosive changes within the sacrum/coccyx most compatible with a meningocele, and unchanged. Stable probable hemorrhagic cyst lower pole left kidney. 1.3 cm exophytic cyst also off lower pole left kidney Signed by Lucero Jacobsen MD 07/29/2016 09:05 A
[2016-07-29] MEDS ORDERED: NITROFURANTOIN (MACROBID) 100 MG CAP As Ordered ONE (13:22)
--- NOTE | 2016-07-29 13:59 | EDDOCDS ---
Nurse's Notes [facility] Name: Sole Ramirez Age: 61 yrs Sex: Female : 1955 Arrival Date: 07/29/2016 Time: 07:01 Bed 7 Private MD: Diagnosis: Unspecified injury of head;Contusion of back wall of thorax;Contusion of knee;Urinary tract infection, site not specified Presentation: 07/29 07:05 Presenting complaint: EMS states: Patient reports falling and getting back up herself, mgs patient now reporting neck, back and bilateral knee pain. Patient has blood in catheter. 07:20 Acute neurological deficits are not present. Mechanism of Injury: Fall out of bed. jr Adult Sepsis Screening: The patient does not have new or worsening altered mentation. Patient's respiratory rate is less than 22. Systolic blood pressure is greater than 100. Patient has a qSOFA score of 0- Negative Sepsis Screen. Suicide/Homicide risk assessment- the patient denies having any suicidal and/or homicidal ideations and does not present with any other emotional, behavioral or mental health complaints. 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 Transition of care: patient was not received from another setting of care. 07:20 Acuity: KIM Level 3 r 07:20 Method Of Arrival: Ambulance jr Triage Assessment: 07:19 General: Appears in no apparent distress. Pain: Location: right low back, right knee jjr and left knee and CHASE. HIV screening NA for this visit Offered previously. Musculoskeletal: No deficits noted. cervical spine is non-tender. Historical: - Allergies: PENICILLINS (Hives); Darvocet-N 100 (Hives); Demerol (Vomit); Darvon (itching); Macrodantin (Vomit); - Home Meds: 1. promethazine 25 mg Oral tab 1 tab every 6 hours as needed 2. hydrocodone-acetaminophen 7.5-750 mg Oral tab 1 tab every 4 hours as needed for Pain 3. Klonopin 0.25 mg Oral tab 1 tab nightly 4. Motrin 400 mg Oral tab 1 tab every 4 hours 5. Lamictal 25 mg Oral tab 2 times per day 6. Sudafed 60 mg Oral tab 1 tab twice a day 7. potassium chloride 20 mEq Oral cpER 1 tab as needed 8. Zyprexa 10 mg oral tab qhs 9. albuterol sulfate 90 mcg/actuation Inhl HFAA 2 puffs every 4-6 hours 10. meclizine 50 mg Oral tab 1 tab 2 times per day 11. Miralax 17 gram/dose Oral powd once daily 12. Eliquis 5 mg oral tab 1 tab 2 times per day 13. loperamide 2 mg Oral tab as needed 14. Lomotil 2.5-0.025 mg oral tab 2 tabs prn - PMHx: Anxiety; Asthma; Bipolar disorder; Chronic Back pain; chronic vega catheter; DVT; GERD; spinal tumor; - PSHx: spinal tumor removed; Appendectomy; Hernia repair; - Social history: Smoking status: Patient states was never smoker of tobacco. No barriers to communication noted, The patient speaks fluent Faroese. - Family history: Not pertinent. - : The pt / caregiver states he / she is on a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: Eliquis Home medication list is obtained from the patient. - Exposure Risk Screening:: None identified. Screenin:20 Fall Risk. jjr 07:25 Screening information is obtained from the patient. Fall risk: At risk due to gait aa3 disturbance, immobility, prior history of falls. Nutritional screening: No deficits noted. 09:53 Assistance ADL's: Requires assistance with housework, assistance is provided by Home aa3 Health Aides. Abuse/DV Screen: The patient / caregiver reports he/she is: not in a situation that causes fear, pain or injury. home support is adequate. 13:57 Advance Directives: Currently, there is no health care proxy. There is no active DNR aa3 order. Assessment: 07:25 General: Appears in no apparent distress, Behavior is cooperative. Pain: Location: left aa3 side of neck, lower back, Pain currently is 9 out of 10 on a pain scale. Neurological: Level of Consciousness is awake, alert, Oriented to person, place, time. Cardiovascular: Capillary refill < 3 seconds. Respiratory: Airway is patent Respiratory effort is even, unlabored, Respiratory pattern is regular, symmetrical. : Vega in place Patient has chronic vega catheter Urine is cloudy. Musculoskeletal: Reports numbness in right foot and left foot. 08:38 General: Patient currently getting scans done. . aa3 08:52 General: Appears in no apparent distress, comfortable, Behavior is cooperative. Pain: aa3 Location: left neck, bilateral knees, lower back Pain currently is 8 out of 10 on a pain scale. Neurological: Level of Consciousness is awake, alert, Oriented to person, place, time. 09:00 Reassessment: Reassessment: Patient's vega catheter bag switched to new bag. Urine in aa3 new bag, clear and yellow. No foul odor noted. . 09:44 Reassessment: Patient sleeping soundly in bed, with no distress noted. Respirations aa3 even and unlabored. Patient wakes easily to verbal stimuli. States her pain is still 8/10. Patient resting comfortably. Safety precautions in place, will continue to monitor.. 10:59 General: Appears in no apparent distress, comfortable, Behavior is appropriate for age, aa3 cooperative. Neurological: Level of Consciousness is awake, alert. Cardiovascular: Capillary refill < 3 seconds. Respiratory: Airway is patent Respiratory effort is even, unlabored, Respiratory pattern is regular, symmetrical. : Vega in place to gravity drainage Urine is clear. 11:45 General: Appears in no apparent distress, comfortable, Behavior is appropriate for age, ms18 cooperative, pleasant. Neurological: Level of Consciousness is awake, alert, obeys commands, Oriented to person, place, time. Respiratory: Airway is patent Respiratory effort is even, unlabored. : catheter changed at this time. Derm: Skin is pink, warm & dry. 12:26 General:. aa3 Vital Signs: 07:12 BP 129 / 72; Pulse 82; Resp 18; Temp 97.4(O); Pulse Ox 95% on R/A; Weight 58.97 kg (R); jr Height 4 ft. 11 in. (149.86 cm) (R); Pain 9/10; 13:12 BP 123 / 69; Pulse 82; Resp 18; Temp 97.6(O); Pulse Ox 98% on R/A; Pain 9/10; ct3 07:12 Body Mass Index 26.26 (58.97 kg, 149.86 cm) [facility] Vitals: 07:12 Log In Time N/A - ambulance arrival. [facility] ED Course: 07:01 Patient visited by Trudi Coon, Filter Pulp Washer. deg 07:01 Patient moved to Waiting deg 07:03 Patient moved to 13 deg 07:06 Patient moved to 7 deg 07:21 Triage Initiated jjr 07:25 Sunitha Nair,GEORGE is Primary Nurse. aa3 07:26 Patient visited by Sunitha Nair RN. aa3 07:46 Gab Longoria MD is Attending Physician. br1 07:54 Patient visited by Gab Longoria MD. br1 08:38 Patient visited by Sunitha Nair RN. aa3 08:52 Patient visited by Sunitha Nair RN. aa3 09:00 CT Head Without Contrast Returned. EDMS 09:12 [facility] Payment Agreement was scanned into [employer] and attached to record. mm15 09:13 [facility] Payment Agreement was scanned into [employer] and attached to record. mm15 09:23 Knee, Complete Returned. EDMS 09:23 CT Spine,Cervical W/o Contrast Returned. EDMS 09:23 CT Spine,Thoracic W/o Contrast Returned. EDMS 09:23 CT Spine, Lumbar W/o Contrast Returned. EDMS 09:53 The patient / caregiver is instructed regarding the plan of care and ED course. Diet: aa3 Patient given regular meal. Tolerated well. 09:55 Patient visited by Sunitha Nair RN. aa3 10:57 Patient visited by Renetta Dukes PCA. ct3 11:00 Patient visited by Sunitha Nair RN. aa3 11:45 Patient has correct armband on for positive identification. Placed in gown. Call light ms18 in reach. Property :Personal belongings accompany Pt. 11:45 Vega cath inserted 16 Fr. Balloon inflated. To gravity drainage. ms18 11:47 Patient visited by Flakita Oliva RN. ms18 12:30 Patient visited by Renetta Dukes PCA. ct3 13:08 Patient visited by Gab Longoria MD. br1 13:11 Daisy Rodriguez is Referral Physician. br1 13:11 [facility] is Referral Physician. br1 13:13 Patient visited by Renetta Dukes PCA. ct3 13:57 No IV's were initiated during this patient's visit. No procedures done that require aa3 assistance. Administered Medications: 08:52 Drug: HYDROcodone-acetaminophen 1 tabs [hydrocodone 7.5 mg-acetaminophen 325 mg tablet aa3 (1 tabs)] Route: PO; 13:24 Drug: Nitrofurantoin 100 mg [nitrofurantoin macrocrystal 50 mg capsule (2 caps)] Route: hs1 PO; Order Results: Radiology Order: CT Head Without Contrast Test: CT Head Without Contrast REASON FOR EXAMINATION: Trauma; CT Head without contrast; ; HISTORY: Trauma; ; COMPARISON: 10/08/2015; ; There is no intraparenchymal hemorrhage, acute infarct, mass or midline shift.; The ventricular system and cortical sulci are dilated consistent with minimal; volume loss. There is no extra cerebral collection. There is no fracture. The; visualized sinuses are clear.; ; IMPRESSION: Minimal volume loss.; ; ; ; ; Signed by; Myles Nesbitt MD 07/29/2016 08:30 A; Radiology Order: CT Spine,Cervical W/o Contrast Test: CT Spine,Cervical W/o Contrast REASON FOR EXAMINATION: Trauma; CT study of the cervical spine without contrast:; ; History: Trauma. Comparison CT study is from November 15, 2014.; ; Technique: Helical scanning is acquired and overlapping 2 mm high resolution; axial images were generated and reviewed at bone and soft tissue window settings.; Coronal and sagittal multiplanar re-formations images are generated.; ; CT findings: There is no evidence of cervical spine element fracture. No skull; base fracture is seen. Cervical vertebral body heights are preserved. Alignment; is normal. There is reversal of the normal cervical lordosis and a levoconvex; curve is seen on coronal multiplanar re-formation images. This may reflect; spasm. There is degenerative disc disease at C5-6 and some osteoarthritic facet; changes are noted. There is osteoarthritis is C1-2 again noted. Facet joints are; normally aligned bilaterally at each cervical level on multiplanar re-formations; images. There is no evidence of intraspinal or paraspinal hematoma. No extra; vertebral abnormality is seen.; ; Impression:; ; Degenerative spondylosis, reversal of the normal cervical lordosis, and; levoconvex curvature consistent with spasm. Otherwise negative CT study of the; cervical spine without contrast. No fracture seen.; ; ; Signed by; Trung Jensen MD 07/29/2016 10:30 A; Radiology Order: CT Spine,Thoracic W/o Contrast Test: CT Spine,Thoracic W/o Contrast REASON FOR EXAMINATION: Trauma; CT THORACIC SPINE WITHOUT CONTRAST:; ; HISTORY: Trauma.; ; There is no acute fracture or subluxation. There is no definite disc bulge or; herniation. The spinal canal and neural foramina are patent. The intervertebral; discs are normal in height. There is scoliosis of the mid and lower thoracic; spine convex to the left.; ; IMPRESSION:; ; There is no acute fracture or subluxation.; ; ; Signed by; Myles Nesbitt MD 07/29/2016 09:29 A; Radiology Order: CT Spine, Lumbar W/o Contrast Test: CT Spine, Lumbar W/o Contrast REASON FOR EXAMINATION: Trauma; CT lumbosacral spine 07/29/2016; ; Indication: Trauma; ; Comparison: CT abdomen pelvis 05/20/2015; ; Technique: 4 mm reconstructed axial images were obtained of the lumbosacral; spine without contrast. Sagittal and coronal reconstructed images were also; created.; ; Findings: There is significant rotatory dextroscoliosis of the lumbar spine.; Advanced degenerative disc changes are noted at L1-2, L4-5, L5- S1. There has; been previous bilateral L5 laminectomy defects.; ; There is no acute fracture or paraspinal widening.; ; Stable 9 mm hyperdense focus within the lower pole left kidney most compatible; with hemorrhagic cyst. 1.3 cm exophytic cyst is noted off lower pole kidney.; There is dilatation of left renal pelvis most compatible with a extrarenal; pelvis. Visualized portions of the SI joints are intact. Benign appearing; erosions are seen within the lower sacrum and coccyx, most compatible with a; meningocele.; ; Impression:; ; Significant rotatory dextroscoliosis of the lumbar spine. No acute fracture or; spondylolisthesis.; ; Degenerative disc changes at multiple levels as above. Previous bilateral L5; laminectomies.; ; Benign appearing erosive changes within the sacrum/coccyx most compatible with a; meningocele, and unchanged.; ; Stable probable hemorrhagic cyst lower pole left kidney. 1.3 cm exophytic cyst; also off lower pole left kidney; ; ; ; ; ; ; Signed by; Lucero Jacobsen MD 07/29/2016 09:05 A; Radiology Order: Knee, Complete Test: Knee, Complete REASON FOR EXAMINATION: Trauma; Clinical: Trauma.; ; Technique: AP, lateral, bilateral oblique and sunrise views of the right and; left knee.; ; Comparison: Left knee dated 07/05/2016.; ; Findings:; Moderate, symmetric, tricompartmental osteoarthritic degenerative changes are; appreciated. Left knee is unchanged when compared to prior examination. There; is no evidence for acute fracture / compression injury or subluxation. A small; chronic left suprapatellar effusion cannot be excluded. No right effusion; identified.; ; Impression:; 1. Moderate symmetric bilateral tricompartmental osteoarthritic degenerative; changes.; 2. Cannot exclude small chronic left suprapatellar effusion.; ; ; Signed by; Boyd Ford MD 07/29/2016 08:53 A; Outcome: 13:13 Discharge ordered by Provider. br1 13:56 Discharge Assessment: Patient awake and alert. Oriented to person, place and time. aa3 Patient verbalized understanding of disposition instructions. Patient has no functional deficits. patient administered narcotics - no. The following High Risk Discharge criteria are identified: None. Discharged to home via ambulance, via wheelchair. Condition: good. Discharge instructions given to patient, Instructed on discharge instructions, follow up and referral plans. medication usage, Demonstrated understanding of instructions, medications, Pt was receptive of discharge instructions/ teaching. Prescriptions given X 2. CT Study completed. 13:57 Patient left the ED. aa3 Signatures: Dispatcher [employer] EDMS Trudi Coon, Filter Pulp Washer Unit deg Gab Longoria MD MD br1 Jesusita Jacobson RN Flory Sim RN RN hs1 Renetta Dukes, LEADERSHIP COACH LEADERSHIP COACH ct3 Vale Morris mm15 Sunitha Nair RN RN aa3 Flakita Oliva,GEORGE RN ms18 Adi Vegas,GEORGE RN mgs MTDD
--- NOTE | 2016-07-29 13:59 | EDDOCDS ---
Physician Documentation [facility] Name: Sole Ramirez Age: 61 yrs Sex: Female : 1955 Arrival Date: 07/29/2016 Time: 07:01 Bed 7 Private MD: Disposition: 07/29/16 13:13 Discharged to Home/Self Care. Impression: Unspecified injury of head, Contusion of back wall of thorax, Contusion of knee, Urinary tract infection, site not specified. - Condition is Stable. - Discharge Instructions: Back Pain, Adult, Head Injury, Adult, Knee Effusion, Urinary Tract Infection. - Prescriptions for Macrobid 100 mg Oral Capsule - take 100 milligrams by ORAL route every 12 hours for 7 days; 14 capsule. ZOFRAN ODT 4 mg - dissolve 1 tablet by ORAL route 4 times per day As needed do not chew, do not swallow whole; 10 tablet. - Medication Reconciliation, Local Pharmacy Hours form. - Follow up: Daisy Rodriguez; When: 4 - 5 days; Reason: Recheck today's complaints. Follow up: [facility]; When: 4 - 5 days; Reason: Further diagnostic work-up. - Problem is new. - Symptoms have improved. - Notes: You were seen in the ED for back and knee pain after rolling out of bed. CT scan of the head, neck and back showed no acute fractures. Xrays of the knees revealed no acute fractures but possible small joint effusion on the left. Urine test from previous visits shows UTI as well. You may return home. You may switch the antibiotic to Macrobid and may take Zofran as needed for nausea. You may follow up at this week's already scheduled Orthopedic appointment and also with your primary doctor - please call to arrange to be seen. Return to the ED for any new or worse pain, or any other concerns. Historical: - Allergies: PENICILLINS (Hives); Darvocet-N 100 (Hives); Demerol (Vomit); Darvon (itching); Macrodantin (Vomit); - Home Meds: 1. promethazine 25 mg Oral tab 1 tab every 6 hours as needed 2. hydrocodone-acetaminophen 7.5-750 mg Oral tab 1 tab every 4 hours as needed for Pain 3. Klonopin 0.25 mg Oral tab 1 tab nightly 4. Motrin 400 mg Oral tab 1 tab every 4 hours 5. Lamictal 25 mg Oral tab 2 times per day 6. Sudafed 60 mg Oral tab 1 tab twice a day 7. potassium chloride 20 mEq Oral cpER 1 tab as needed 8. Zyprexa 10 mg oral tab qhs 9. albuterol sulfate 90 mcg/actuation Inhl HFAA 2 puffs every 4-6 hours 10. meclizine 50 mg Oral tab 1 tab 2 times per day 11. Miralax 17 gram/dose Oral powd once daily 12. Eliquis 5 mg oral tab 1 tab 2 times per day 13. loperamide 2 mg Oral tab as needed 14. Lomotil 2.5-0.025 mg oral tab 2 tabs prn - PMHx: Anxiety; Asthma; Bipolar disorder; Chronic Back pain; chronic vega catheter; DVT; GERD; spinal tumor; - PSHx: spinal tumor removed; Appendectomy; Hernia repair; - Social history: Smoking status: Patient states was never smoker of tobacco. No barriers to communication noted, The patient speaks fluent Turkish. - Family history: Not pertinent. - : The pt / caregiver states he / she is on a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: Eliquis Home medication list is obtained from the patient. - Exposure Risk Screening:: None identified. Vital Signs: 07/29 07:12 BP 129 / 72; Pulse 82; Resp 18; Temp 97.4(O); Pulse Ox 95% on R/A; Weight 58.97 kg / jjr 130.01 lbs (R); Height 4 ft. 11 in. (149.86 cm) (R); Pain 9/10; 13:12 BP 123 / 69; Pulse 82; Resp 18; Temp 97.6(O); Pulse Ox 98% on R/A; Pain 9/10; ct3 07:12 Body Mass Index 26.26 (58.97 kg, 149.86 cm) jjr MDM: 07:56 Misc. Nursing Order ordered. br1 07:57 CT Head Without Contrast Ordered. EDMS 07:57 HYDROcodone-acetaminophen 7.5 mg-325 mg 1 tabs PO once ordered. br1 07:57 CT Spine,Cervical W/o Contrast Ordered. EDMS 07:57 CT Spine,Thoracic W/o Contrast Ordered. EDMS 07:57 CT Spine, Lumbar W/o Contrast Ordered. EDMS 07:57 Knee, Complete Ordered. EDMS 08:55 Financial registration complete. mm15 09:12 [facility] Payment Agreement was scanned into [email or web address] and attached to record. mm15 09:13 [facility] Payment Agreement was scanned into [employer] and attached to record. mm15 11:00 Misc. Nursing Order ordered. br1 13:09 Nitrofurantoin 100 mg PO once ordered. br1 Administered Medications: 08:52 Drug: HYDROcodone-acetaminophen 1 tabs [hydrocodone 7.5 mg-acetaminophen 325 mg tablet aa3 (1 tabs)] Route: PO; 13:24 Drug: Nitrofurantoin 100 mg [nitrofurantoin macrocrystal 50 mg capsule (2 caps)] Route: hs1 PO; Signatures: Dispatcher [employer] EDMS Gab Longoria MD MD br1 Jesusita Jacobson RN RN Vale Sue mm15 Sunitha Nair RN RN aa3 Flory Lu RN hs1 The chart was reviewed and I authenticate all verbal orders and agree with the evaluation and treatment provided.Attachments: 09:13 [facility] Payment Agreement mm15 MTDD
--- NOTE | 2016-07-31 14:59 | EDDOCDS ---
Physician Documentation [facility] Name: Sole Ramirez Age: 61 yrs Sex: Female : 1955 Arrival Date: 07/29/2016 Time: 07:01 Bed 7 Private MD: Disposition: 07/29/16 13:13 Discharged to Home/Self Care. Impression: Unspecified injury of head, Contusion of back wall of thorax, Contusion of knee, Urinary tract infection, site not specified. - Condition is Stable. - Discharge Instructions: Back Pain, Adult, Head Injury, Adult, Knee Effusion, Urinary Tract Infection. - Prescriptions for Macrobid 100 mg Oral Capsule - take 100 milligrams by ORAL route every 12 hours for 7 days; 14 capsule. ZOFRAN ODT 4 mg - dissolve 1 tablet by ORAL route 4 times per day As needed do not chew, do not swallow whole; 10 tablet. - Medication Reconciliation, Local Pharmacy Hours form. - Follow up: Daisy Rodriguez; When: 4 - 5 days; Reason: Recheck today's complaints. Follow up: [facility]; When: 4 - 5 days; Reason: Further diagnostic work-up. - Problem is new. - Symptoms have improved. - Notes: You were seen in the ED for back and knee pain after rolling out of bed. CT scan of the head, neck and back showed no acute fractures. Xrays of the knees revealed no acute fractures but possible small joint effusion on the left. Urine test from previous visits shows UTI as well. You may return home. You may switch the antibiotic to Macrobid and may take Zofran as needed for nausea. You may follow up at this week's already scheduled Orthopedic appointment and also with your primary doctor - please call to arrange to be seen. Return to the ED for any new or worse pain, or any other concerns. Historical: - Allergies: PENICILLINS (Hives); Darvocet-N 100 (Hives); Demerol (Vomit); Darvon (itching); Macrodantin (Vomit); - Home Meds: 1. promethazine 25 mg Oral tab 1 tab every 6 hours as needed 2. hydrocodone-acetaminophen 7.5-750 mg Oral tab 1 tab every 4 hours as needed for Pain 3. Klonopin 0.25 mg Oral tab 1 tab nightly 4. Motrin 400 mg Oral tab 1 tab every 4 hours 5. Lamictal 25 mg Oral tab 2 times per day 6. Sudafed 60 mg Oral tab 1 tab twice a day 7. potassium chloride 20 mEq Oral cpER 1 tab as needed 8. Zyprexa 10 mg oral tab qhs 9. albuterol sulfate 90 mcg/actuation Inhl HFAA 2 puffs every 4-6 hours 10. meclizine 50 mg Oral tab 1 tab 2 times per day 11. Miralax 17 gram/dose Oral powd once daily 12. Eliquis 5 mg oral tab 1 tab 2 times per day 13. loperamide 2 mg Oral tab as needed 14. Lomotil 2.5-0.025 mg oral tab 2 tabs prn - PMHx: Anxiety; Asthma; Bipolar disorder; Chronic Back pain; chronic vega catheter; DVT; GERD; spinal tumor; - PSHx: spinal tumor removed; Appendectomy; Hernia repair; - Social history: Smoking status: Patient states was never smoker of tobacco. No barriers to communication noted, The patient speaks fluent Azeri. - Family history: Not pertinent. - : The pt / caregiver states he / she is on a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: Eliquis Home medication list is obtained from the patient. - Exposure Risk Screening:: None identified. Vital Signs: 07/29 07:12 BP 129 / 72; Pulse 82; Resp 18; Temp 97.4(O); Pulse Ox 95% on R/A; Weight 58.97 kg / jjr 130.01 lbs (R); Height 4 ft. 11 in. (149.86 cm) (R); Pain 9/10; 13:12 BP 123 / 69; Pulse 82; Resp 18; Temp 97.6(O); Pulse Ox 98% on R/A; Pain 9/10; ct3 07:12 Body Mass Index 26.26 (58.97 kg, 149.86 cm) jjr MDM: 07:56 Misc. Nursing Order ordered. br1 07:57 CT Head Without Contrast Ordered. EDMS 07:57 HYDROcodone-acetaminophen 7.5 mg-325 mg 1 tabs PO once ordered. br1 07:57 CT Spine,Cervical W/o Contrast Ordered. EDMS 07:57 CT Spine,Thoracic W/o Contrast Ordered. EDMS 07:57 CT Spine, Lumbar W/o Contrast Ordered. EDMS 07:57 Knee, Complete Ordered. EDMS 08:55 Financial registration complete. mm15 09:12 [facility] Payment Agreement was scanned into [employer] and attached to record. mm15 09:13 [facility] Payment Agreement was scanned into [employer] and attached to record. mm15 11:00 Misc. Nursing Order ordered. br1 13:09 Nitrofurantoin 100 mg PO once ordered. br1 07/30 11:32 T-Sheet-- Draft Copy was scanned into [employer] and attached to record. gb 11:32 Radiology Report was scanned into [employer] and attached to record. gb Administered Medications: 07/29 08:52 Drug: HYDROcodone-acetaminophen 1 tabs [hydrocodone 7.5 mg-acetaminophen 325 mg tablet aa3 (1 tabs)] Route: PO; 13:24 Drug: Nitrofurantoin 100 mg [nitrofurantoin macrocrystal 50 mg capsule (2 caps)] Route: hs1 PO; Signatures: Dispatcher [employer] EDMS Deonna Sy, Reg Reg gb Gab Longoria MD MD br1 Jesusita Jacobson RN RN Vale Sue mm15 Sunitha Nair RN RN aa3 Flory Lu RN hs1 The chart was reviewed and I authenticate all verbal orders and agree with the evaluation and treatment provided.Attachments: 09:13 [facility] Payment Agreement mm15 07/30 11:32 T-Sheet-- Draft Copy gb Chart Complete MTDD
--- NOTE | 2016-07-31 14:59 | EDDOCDS ---
Physician Documentation [facility] Name: Sole Ramirez Age: 61 yrs Sex: Female : 1955 Arrival Date: 07/29/2016 Time: 07:01 Bed 7 Private MD: Disposition: 07/29/16 13:13 Discharged to Home/Self Care. Impression: Unspecified injury of head, Contusion of back wall of thorax, Contusion of knee, Urinary tract infection, site not specified. - Condition is Stable. - Discharge Instructions: Back Pain, Adult, Head Injury, Adult, Knee Effusion, Urinary Tract Infection. - Prescriptions for Macrobid 100 mg Oral Capsule - take 100 milligrams by ORAL route every 12 hours for 7 days; 14 capsule. ZOFRAN ODT 4 mg - dissolve 1 tablet by ORAL route 4 times per day As needed do not chew, do not swallow whole; 10 tablet. - Medication Reconciliation, Local Pharmacy Hours form. - Follow up: Daisy Rodriguez; When: 4 - 5 days; Reason: Recheck today's complaints. Follow up: [facility]; When: 4 - 5 days; Reason: Further diagnostic work-up. - Problem is new. - Symptoms have improved. - Notes: You were seen in the ED for back and knee pain after rolling out of bed. CT scan of the head, neck and back showed no acute fractures. Xrays of the knees revealed no acute fractures but possible small joint effusion on the left. Urine test from previous visits shows UTI as well. You may return home. You may switch the antibiotic to Macrobid and may take Zofran as needed for nausea. You may follow up at this week's already scheduled Orthopedic appointment and also with your primary doctor - please call to arrange to be seen. Return to the ED for any new or worse pain, or any other concerns. Historical: - Allergies: PENICILLINS (Hives); Darvocet-N 100 (Hives); Demerol (Vomit); Darvon (itching); Macrodantin (Vomit); - Home Meds: 1. promethazine 25 mg Oral tab 1 tab every 6 hours as needed 2. hydrocodone-acetaminophen 7.5-750 mg Oral tab 1 tab every 4 hours as needed for Pain 3. Klonopin 0.25 mg Oral tab 1 tab nightly 4. Motrin 400 mg Oral tab 1 tab every 4 hours 5. Lamictal 25 mg Oral tab 2 times per day 6. Sudafed 60 mg Oral tab 1 tab twice a day 7. potassium chloride 20 mEq Oral cpER 1 tab as needed 8. Zyprexa 10 mg oral tab qhs 9. albuterol sulfate 90 mcg/actuation Inhl HFAA 2 puffs every 4-6 hours 10. meclizine 50 mg Oral tab 1 tab 2 times per day 11. Miralax 17 gram/dose Oral powd once daily 12. Eliquis 5 mg oral tab 1 tab 2 times per day 13. loperamide 2 mg Oral tab as needed 14. Lomotil 2.5-0.025 mg oral tab 2 tabs prn - PMHx: Anxiety; Asthma; Bipolar disorder; Chronic Back pain; chronic vega catheter; DVT; GERD; spinal tumor; - PSHx: spinal tumor removed; Appendectomy; Hernia repair; - Social history: Smoking status: Patient states was never smoker of tobacco. No barriers to communication noted, The patient speaks fluent Yoruba. - Family history: Not pertinent. - : The pt / caregiver states he / she is on a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: Eliquis Home medication list is obtained from the patient. - Exposure Risk Screening:: None identified. Vital Signs: 07/29 07:12 BP 129 / 72; Pulse 82; Resp 18; Temp 97.4(O); Pulse Ox 95% on R/A; Weight 58.97 kg / jjr 130.01 lbs (R); Height 4 ft. 11 in. (149.86 cm) (R); Pain 9/10; 13:12 BP 123 / 69; Pulse 82; Resp 18; Temp 97.6(O); Pulse Ox 98% on R/A; Pain 9/10; ct3 07:12 Body Mass Index 26.26 (58.97 kg, 149.86 cm) jjr MDM: 07:56 Misc. Nursing Order ordered. br1 07:57 CT Head Without Contrast Ordered. EDMS 07:57 HYDROcodone-acetaminophen 7.5 mg-325 mg 1 tabs PO once ordered. br1 07:57 CT Spine,Cervical W/o Contrast Ordered. EDMS 07:57 CT Spine,Thoracic W/o Contrast Ordered. EDMS 07:57 CT Spine, Lumbar W/o Contrast Ordered. EDMS 07:57 Knee, Complete Ordered. EDMS 08:55 Financial registration complete. mm15 09:12 [facility] Payment Agreement was scanned into HuodongxingHOST and attached to record. mm15 09:13 [facility] Payment Agreement was scanned into MEDHOST and attached to record. mm15 11:00 Misc. Nursing Order ordered. br1 13:09 Nitrofurantoin 100 mg PO once ordered. br1 07/30 11:32 T-Sheet-- Draft Copy was scanned into HuodongxingHOST and attached to record. gb 11:32 Radiology Report was scanned into HuodongxingHOST and attached to record. gb Administered Medications: 07/29 08:52 Drug: HYDROcodone-acetaminophen 1 tabs [hydrocodone 7.5 mg-acetaminophen 325 mg tablet aa3 (1 tabs)] Route: PO; 13:24 Drug: Nitrofurantoin 100 mg [nitrofurantoin macrocrystal 50 mg capsule (2 caps)] Route: hs1 PO; Signatures: Dispatcher MedHost EDMS Deonna Sy, Reg Reg gb Gab Longoria MD MD br1 Jesusita Jacobson RN RN Vale Sue mm15 Sunitha Nair RN RN aa3 Flory Lu RN hs1 The chart was reviewed and I authenticate all verbal orders and agree with the evaluation and treatment provided.Attachments: 09:13 [facility] Payment Agreement mm15 07/30 11:32 T-Sheet-- Draft Copy gb Chart Complete MTDD
--- NOTE | 2016-07-31 14:59 | EDDOCDS ---
Nurse's Notes [facility] Name: Sole Ramirez Age: 61 yrs Sex: Female : 1955 Arrival Date: 07/29/2016 Time: 07:01 Bed 7 Private MD: Diagnosis: Unspecified injury of head;Contusion of back wall of thorax;Contusion of knee;Urinary tract infection, site not specified Presentation: 07/29 07:05 Presenting complaint: EMS states: Patient reports falling and getting back up herself, mgs patient now reporting neck, back and bilateral knee pain. Patient has blood in catheter. 07:20 Acute neurological deficits are not present. Mechanism of Injury: Fall out of bed. jr Adult Sepsis Screening: The patient does not have new or worsening altered mentation. Patient's respiratory rate is less than 22. Systolic blood pressure is greater than 100. Patient has a qSOFA score of 0- Negative Sepsis Screen. Suicide/Homicide risk assessment- the patient denies having any suicidal and/or homicidal ideations and does not present with any other emotional, behavioral or mental health complaints. Status: Patient is not a sales service technician or dependent. Transition of care: patient was not received from another setting of care. 07:20 Acuity: KIM Level 3 r 07:20 Method Of Arrival: Ambulance jr Triage Assessment: 07:19 General: Appears in no apparent distress. Pain: Location: right low back, right knee jjr and left knee and CHASE. HIV screening NA for this visit Offered previously. Musculoskeletal: No deficits noted. cervical spine is non-tender. Historical: - Allergies: PENICILLINS (Hives); Darvocet-N 100 (Hives); Demerol (Vomit); Darvon (itching); Macrodantin (Vomit); - Home Meds: 1. promethazine 25 mg Oral tab 1 tab every 6 hours as needed 2. hydrocodone-acetaminophen 7.5-750 mg Oral tab 1 tab every 4 hours as needed for Pain 3. Klonopin 0.25 mg Oral tab 1 tab nightly 4. Motrin 400 mg Oral tab 1 tab every 4 hours 5. Lamictal 25 mg Oral tab 2 times per day 6. Sudafed 60 mg Oral tab 1 tab twice a day 7. potassium chloride 20 mEq Oral cpER 1 tab as needed 8. Zyprexa 10 mg oral tab qhs 9. albuterol sulfate 90 mcg/actuation Inhl HFAA 2 puffs every 4-6 hours 10. meclizine 50 mg Oral tab 1 tab 2 times per day 11. Miralax 17 gram/dose Oral powd once daily 12. Eliquis 5 mg oral tab 1 tab 2 times per day 13. loperamide 2 mg Oral tab as needed 14. Lomotil 2.5-0.025 mg oral tab 2 tabs prn - PMHx: Anxiety; Asthma; Bipolar disorder; Chronic Back pain; chronic vega catheter; DVT; GERD; spinal tumor; - PSHx: spinal tumor removed; Appendectomy; Hernia repair; - Social history: Smoking status: Patient states was never smoker of tobacco. No barriers to communication noted, The patient speaks fluent Bulgarian. - Family history: Not pertinent. - : The pt / caregiver states he / she is on a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: Eliquis Home medication list is obtained from the patient. - Exposure Risk Screening:: None identified. Screenin:20 Fall Risk. jjr 07:25 Screening information is obtained from the patient. Fall risk: At risk due to gait aa3 disturbance, immobility, prior history of falls. Nutritional screening: No deficits noted. 09:53 Assistance ADL's: Requires assistance with housework, assistance is provided by Home aa3 Health Aides. Abuse/DV Screen: The patient / caregiver reports he/she is: not in a situation that causes fear, pain or injury. home support is adequate. 13:57 Advance Directives: Currently, there is no health care proxy. There is no active DNR aa3 order. Assessment: 07:25 General: Appears in no apparent distress, Behavior is cooperative. Pain: Location: left aa3 side of neck, lower back, Pain currently is 9 out of 10 on a pain scale. Neurological: Level of Consciousness is awake, alert, Oriented to person, place, time. Cardiovascular: Capillary refill < 3 seconds. Respiratory: Airway is patent Respiratory effort is even, unlabored, Respiratory pattern is regular, symmetrical. : Vega in place Patient has chronic vega catheter Urine is cloudy. Musculoskeletal: Reports numbness in right foot and left foot. 08:38 General: Patient currently getting scans done. . aa3 08:52 General: Appears in no apparent distress, comfortable, Behavior is cooperative. Pain: aa3 Location: left neck, bilateral knees, lower back Pain currently is 8 out of 10 on a pain scale. Neurological: Level of Consciousness is awake, alert, Oriented to person, place, time. 09:00 Reassessment: Reassessment: Patient's vega catheter bag switched to new bag. Urine in aa3 new bag, clear and yellow. No foul odor noted. . 09:44 Reassessment: Patient sleeping soundly in bed, with no distress noted. Respirations aa3 even and unlabored. Patient wakes easily to verbal stimuli. States her pain is still 8/10. Patient resting comfortably. Safety precautions in place, will continue to monitor.. 10:59 General: Appears in no apparent distress, comfortable, Behavior is appropriate for age, aa3 cooperative. Neurological: Level of Consciousness is awake, alert. Cardiovascular: Capillary refill < 3 seconds. Respiratory: Airway is patent Respiratory effort is even, unlabored, Respiratory pattern is regular, symmetrical. : Vega in place to gravity drainage Urine is clear. 11:45 General: Appears in no apparent distress, comfortable, Behavior is appropriate for age, ms18 cooperative, pleasant. Neurological: Level of Consciousness is awake, alert, obeys commands, Oriented to person, place, time. Respiratory: Airway is patent Respiratory effort is even, unlabored. : catheter changed at this time. Derm: Skin is pink, warm & dry. 12:26 General:. aa3 Vital Signs: 07:12 BP 129 / 72; Pulse 82; Resp 18; Temp 97.4(O); Pulse Ox 95% on R/A; Weight 58.97 kg (R); jr Height 4 ft. 11 in. (149.86 cm) (R); Pain 9/10; 13:12 BP 123 / 69; Pulse 82; Resp 18; Temp 97.6(O); Pulse Ox 98% on R/A; Pain 9/10; ct3 07:12 Body Mass Index 26.26 (58.97 kg, 149.86 cm) [facility] Vitals: 07:12 Log In Time N/A - ambulance arrival. [facility] ED Course: 07:01 Patient visited by Trudi Coon, Emergency Nurse. deg 07:01 Patient moved to Waiting deg 07:03 Patient moved to 13 deg 07:06 Patient moved to 7 deg 07:21 Triage Initiated jjr 07:25 Sunitha Nair,GEORGE is Primary Nurse. aa3 07:26 Patient visited by Sunitha Nair RN. aa3 07:46 Gab Longoria MD is Attending Physician. br1 07:54 Patient visited by Gab Longoria MD. br1 08:38 Patient visited by Sunitha Nair RN. aa3 08:52 Patient visited by Sunitha Nair RN. aa3 09:00 CT Head Without Contrast Returned. EDMS 09:12 [facility] Payment Agreement was scanned into Synack and attached to record. mm15 09:13 [facility] Payment Agreement was scanned into [employer] and attached to record. mm15 09:23 Knee, Complete Returned. EDMS 09:23 CT Spine,Cervical W/o Contrast Returned. EDMS 09:23 CT Spine,Thoracic W/o Contrast Returned. EDMS 09:23 CT Spine, Lumbar W/o Contrast Returned. EDMS 09:53 The patient / caregiver is instructed regarding the plan of care and ED course. Diet: aa3 Patient given regular meal. Tolerated well. 09:55 Patient visited by Sunitha Nair RN. aa3 10:57 Patient visited by Renetta Dukes PCA. ct3 11:00 Patient visited by Sunitha Nair RN. aa3 11:45 Patient has correct armband on for positive identification. Placed in gown. Call light ms18 in reach. Property :Personal belongings accompany Pt. 11:45 Vega cath inserted 16 Fr. Balloon inflated. To gravity drainage. ms18 11:47 Patient visited by Flakita Oliva RN. ms18 12:30 Patient visited by Renetta Dukes PCA. ct3 13:08 Patient visited by Gab Longoria MD. br1 13:11 Daiys Rodriguez is Referral Physician. br1 13:11 [facility] is Referral Physician. br1 13:13 Patient visited by Renetta Dukes PCA. ct3 13:57 No IV's were initiated during this patient's visit. No procedures done that require aa3 assistance. 07/30 11:32 T-Sheet-- Draft Copy was scanned into Synack and attached to record. gb 11:32 Radiology Report was scanned into Synack and attached to record. gb Administered Medications: 07/29 08:52 Drug: HYDROcodone-acetaminophen 1 tabs [hydrocodone 7.5 mg-acetaminophen 325 mg tablet aa3 (1 tabs)] Route: PO; 13:24 Drug: Nitrofurantoin 100 mg [nitrofurantoin macrocrystal 50 mg capsule (2 caps)] Route: hs1 PO; Order Results: Radiology Order: CT Head Without Contrast Test: CT Head Without Contrast REASON FOR EXAMINATION: Trauma; CT Head without contrast; ; HISTORY: Trauma; ; COMPARISON: 10/08/2015; ; There is no intraparenchymal hemorrhage, acute infarct, mass or midline shift.; The ventricular system and cortical sulci are dilated consistent with minimal; volume loss. There is no extra cerebral collection. There is no fracture. The; visualized sinuses are clear.; ; IMPRESSION: Minimal volume loss.; ; ; ; ; Signed by; Myles Nesbtit MD 07/29/2016 08:30 A; Radiology Order: CT Spine,Cervical W/o Contrast Test: CT Spine,Cervical W/o Contrast REASON FOR EXAMINATION: Trauma; CT study of the cervical spine without contrast:; ; History: Trauma. Comparison CT study is from November 15, 2014.; ; Technique: Helical scanning is acquired and overlapping 2 mm high resolution; axial images were generated and reviewed at bone and soft tissue window settings.; Coronal and sagittal multiplanar re-formations images are generated.; ; CT findings: There is no evidence of cervical spine element fracture. No skull; base fracture is seen. Cervical vertebral body heights are preserved. Alignment; is normal. There is reversal of the normal cervical lordosis and a levoconvex; curve is seen on coronal multiplanar re-formation images. This may reflect; spasm. There is degenerative disc disease at C5-6 and some osteoarthritic facet; changes are noted. There is osteoarthritis is C1-2 again noted. Facet joints are; normally aligned bilaterally at each cervical level on multiplanar re-formations; images. There is no evidence of intraspinal or paraspinal hematoma. No extra; vertebral abnormality is seen.; ; Impression:; ; Degenerative spondylosis, reversal of the normal cervical lordosis, and; levoconvex curvature consistent with spasm. Otherwise negative CT study of the; cervical spine without contrast. No fracture seen.; ; ; Signed by; Trung Jensen MD 07/29/2016 10:30 A; Radiology Order: CT Spine,Thoracic W/o Contrast Test: CT Spine,Thoracic W/o Contrast REASON FOR EXAMINATION: Trauma; CT THORACIC SPINE WITHOUT CONTRAST:; ; HISTORY: Trauma.; ; There is no acute fracture or subluxation. There is no definite disc bulge or; herniation. The spinal canal and neural foramina are patent. The intervertebral; discs are normal in height. There is scoliosis of the mid and lower thoracic; spine convex to the left.; ; IMPRESSION:; ; There is no acute fracture or subluxation.; ; ; Signed by; Myles Nesbitt MD 07/29/2016 09:29 A; Radiology Order: CT Spine, Lumbar W/o Contrast Test: CT Spine, Lumbar W/o Contrast REASON FOR EXAMINATION: Trauma; CT lumbosacral spine 07/29/2016; ; Indication: Trauma; ; Comparison: CT abdomen pelvis 05/20/2015; ; Technique: 4 mm reconstructed axial images were obtained of the lumbosacral; spine without contrast. Sagittal and coronal reconstructed images were also; created.; ; Findings: There is significant rotatory dextroscoliosis of the lumbar spine.; Advanced degenerative disc changes are noted at L1-2, L4-5, L5- S1. There has; been previous bilateral L5 laminectomy defects.; ; There is no acute fracture or paraspinal widening.; ; Stable 9 mm hyperdense focus within the lower pole left kidney most compatible; with hemorrhagic cyst. 1.3 cm exophytic cyst is noted off lower pole kidney.; There is dilatation of left renal pelvis most compatible with a extrarenal; pelvis. Visualized portions of the SI joints are intact. Benign appearing; erosions are seen within the lower sacrum and coccyx, most compatible with a; meningocele.; ; Impression:; ; Significant rotatory dextroscoliosis of the lumbar spine. No acute fracture or; spondylolisthesis.; ; Degenerative disc changes at multiple levels as above. Previous bilateral L5; laminectomies.; ; Benign appearing erosive changes within the sacrum/coccyx most compatible with a; meningocele, and unchanged.; ; Stable probable hemorrhagic cyst lower pole left kidney. 1.3 cm exophytic cyst; also off lower pole left kidney; ; ; ; ; ; ; Signed by; Lucero Jacobsen MD 07/29/2016 09:05 A; Radiology Order: Knee, Complete Test: Knee, Complete REASON FOR EXAMINATION: Trauma; Clinical: Trauma.; ; Technique: AP, lateral, bilateral oblique and sunrise views of the right and; left knee.; ; Comparison: Left knee dated 07/05/2016.; ; Findings:; Moderate, symmetric, tricompartmental osteoarthritic degenerative changes are; appreciated. Left knee is unchanged when compared to prior examination. There; is no evidence for acute fracture / compression injury or subluxation. A small; chronic left suprapatellar effusion cannot be excluded. No right effusion; identified.; ; Impression:; 1. Moderate symmetric bilateral tricompartmental osteoarthritic degenerative; changes.; 2. Cannot exclude small chronic left suprapatellar effusion.; ; ; Signed by; Boyd Ford MD 07/29/2016 08:53 A; Outcome: 13:13 Discharge ordered by Provider. br1 13:56 Discharge Assessment: Patient awake and alert. Oriented to person, place and time. aa3 Patient verbalized understanding of disposition instructions. Patient has no functional deficits. patient administered narcotics - no. The following High Risk Discharge criteria are identified: None. Discharged to home via ambulance, via wheelchair. Condition: good. Discharge instructions given to patient, Instructed on discharge instructions, follow up and referral plans. medication usage, Demonstrated understanding of instructions, medications, Pt was receptive of discharge instructions/ teaching. Prescriptions given X 2. CT Study completed. 13:57 Patient left the ED. aa3 Signatures: Dispatcher MedHost EDMS Trudi Coon, Emergency Nurse Unit deg Deonna Sy, Reg Reg Gab Buckley MD MD br1 Jesusita Jacobson RN RN Flory Perry RN RN hs1 Renetta Dukes, BLOW MOLDING MACHINE OPERATOR BLOW MOLDING MACHINE OPERATOR ct3 Vale Morris mm15 Sunitha Nair RN RN aa3 Flakita Oliva RN RN ms18 Adi Vegas,GEORGE RN mgs Chart Complete MTDD
== END 2016-07-29 13:57 | disposition home or self-care (01) ==
LOC: M ED 07:01
DX: S09.90XA Unspecified injury of head, initial encounter (principal); S30.0XXA Contusion of lower back and pelvis, initial encounter; S80.02XA Contusion of left knee, initial encounter; S80.01XA Contusion of right knee, initial encounter; W06.XXXA Fall from bed, initial encounter; Y92.003 Bedroom of unspecified non-institutional (private) residence as the place of occurrence of the external cause; Y93.89 Activity, other specified; Y99.8 Other external cause status; N39.0 Urinary tract infection, site not specified; F41.9 Anxiety disorder, unspecified; J45.909 Unspecified asthma, uncomplicated; F31.9 Bipolar disorder, unspecified; Z86.718 Personal history of other venous thrombosis and embolism; K21.9 Gastro-esophageal reflux disease without esophagitis; Z79.01 Long term (current) use of a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; Z79.899 Other long term (current) drug therapy; Z88.0 Allergy status to penicillin; Z88.8 Allergy status to other drugs, medicaments and biological substances; Z79.51 Long term (current) use of inhaled steroids
CPT/HCPCS: 70450; 72125; 72128; 72131; 73564; 99284; P9612

== ENCOUNTER 2016-08-02 15:46 | Emergency (ER) | payer MEDICARE, MEDICAID ==
[2016-08-02] MEDS ORDERED: ACETAMINOPHEN 325 MG TAB As Ordered ONE (17:55)
--- NOTE | 2016-08-02 18:15 | REP ---
Clinical: Fall with bilateral knee pain. Technique: AP, lateral, bilateral oblique views of the right and left knee. Findings: Moderate tricompartmental osteoarthritic degenerative changes are appreciated bilaterally. Findings include osteophytosis, spurring of the tibial spines and chondrocalcinosis. No obvious acute fracture or dislocation. No definite effusion. Impression: Moderate tricompartmental osteoarthritic degenerative changes appear relatively symmetric. No obvious acute fracture or dislocation. Signed by Boyd Ford MD 08/02/2016 06:06 P
--- NOTE | 2016-08-02 18:17 | REP ---
Clinical: Pain with recent trauma/fall. Technique: AP, lateral, swimmers, and open mouth views. Comparison: 07/04/2012. Findings: Moderate to early advanced degenerative disc osteophyte complexes are appreciated along with age-related osteopenia. Alignment is maintained. No obvious acute fracture / compression injury or subluxation. Open mouth view demonstrates normal C1-C2 articulation and odontoid process. Impression: Osteopenia and moderate to early advanced multilevel degenerative changes. No obvious acute fracture or subluxation. Signed by Boyd Ford MD 08/02/2016 06:08 P
--- NOTE | 2016-08-02 20:31 | EDDOCDS ---
Physician Documentation [facility] Name: Sole Ramirez Age: 61 yrs Sex: Female : 1955 Arrival Date: 08/02/2016 Time: 15:46 Bed 30 Private MD: Daisy Rodriguez Disposition: 08/02/16 19:06 Discharged to Home/Self Care. Impression: Fall from chair, Abrasion of back wall of thorax, Contusion of knee. - Condition is Stable. - Discharge Instructions: Back Pain, Adult, Knee Pain, Fall Prevention and Home Safety. - Medication Reconciliation, Local Pharmacy Hours form. - Follow up: Emergency Department; When: As needed; Reason: Worsening of conditions. Follow up: Daisy Rodriguez; When: 2 - 3 days; Reason: Wound/Symptom Recheck, Recheck today's complaints, Continuance of care. - Problem is new. - Symptoms are unchanged. Historical: - Allergies: Darvocet-N 100 (Hives); Darvon (itching); Demerol (Vomit); Macrodantin (Vomit); PENICILLINS (Hives); - Home Meds: 1. albuterol sulfate 90 mcg/actuation Inhl HFAA 2 puffs every 4-6 hours 2. Eliquis 5 mg oral tab 1 tab 2 times per day 3. hydrocodone-acetaminophen 7.5-750 mg Oral tab 1 tab every 4 hours as needed for Pain 4. Klonopin 0.25 mg Oral tab 1 tab nightly 5. Lamictal 25 mg Oral tab 2 times per day 6. Lomotil 2.5-0.025 mg oral tab 2 tabs prn 7. loperamide 2 mg Oral tab as needed 8. meclizine 50 mg Oral tab 1 tab 2 times per day 9. Miralax 17 gram/dose Oral powd once daily 10. Motrin 400 mg Oral tab 1 tab every 4 hours 11. potassium chloride 20 mEq Oral cpER 1 tab as needed 12. promethazine 25 mg Oral tab 1 tab every 6 hours as needed 13. Sudafed 60 mg Oral tab 1 tab twice a day 14. Zyprexa 10 mg Oral tab QHS - PMHx: Anxiety; Asthma; Bipolar disorder; Chronic Back pain; chronic vega catheter; DVT; GERD; spinal tumor; - PSHx: spinal tumor removal; - Social history: Smoking status: Patient states former smoker of tobacco. No barriers to communication noted. - Family history: Not pertinent. - : The pt / caregiver states he / she is on a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: Eliquis Home medication list is obtained from the patient. - Exposure Risk Screening:: None identified. Vital Signs: 08/02 16:01 BP 130 / 88; Pulse 95; Resp 20; Temp 100.0(TE); Pulse Ox 96% on R/A; nb2 MDM: 17:28 Spine, Cerv-3 View; No Collar Ordered. EDMS 17:29 Knee, Complete Ordered. EDMS 17:35 Acetaminophen Tablet 650 mg PO once ordered. dt4 17:36 Consult PFS/PSA/Senior Net Programmer: Safety Concerns ordered. dt4 17:39 ED course: PT WITH PRESSURED SPEECH, TANGENTIAL THOUGHTS. UNABLE TO ANSWER ALL dt4 PROVIDER'S QUESTIONS, PT AGITATED. SWEARING AT STAFF. MADE AWARE BY KURT ALANIS THAT PT MADE SUICIDAL REMARK TO HER WHILE SHE WAS IN THE ROOM. PSA CONSULT PLACED AT THAT TIME.. 19:09 Financial registration complete. zo 19:09 Consult PFS/PSA/Senior Net Programmer: Safety Concerns complete. af2 19:24 [facility] Payment Agreement was scanned into prollie and attached to record. zo Administered Medications: 17:57 Drug: Acetaminophen 650 mg [acetaminophen 325 mg tablet (2 tabs)] Route: PO; jmk 19:09 Follow up: Response: No Adverse Reaction af2 Signatures: Dispatcher MedHost EDMS Sanford Alexis RN RN jmk Peters, Mary, RN RN mcp Olin, Zoeann zo O'Hagan, Michael, PA PA mo1 Letty Shaw PA-C PAJesse dt4 So Gonzales RN RN af2 The chart was reviewed and I authenticate all verbal orders and agree with the evaluation and treatment provided.Attachments: 19:24 [facility] Payment Agreement [facility]
--- NOTE | 2016-08-02 20:32 | EDDOCDS ---
Nurse's Notes [facility] Name: Sole Ramirez Age: 61 yrs Sex: Female : 1955 Arrival Date: 08/02/2016 Time: 15:46 Bed 30 Private MD: Daisy Rodriguez Diagnosis: Fall from chair;Abrasion of back wall of thorax;Contusion of knee Presentation: 08/02 15:54 Presenting complaint: EMS states: pt lifting box with legs going numb and falling kc3 today. Pt c/o leg and knee pain. Adult Sepsis Screening: The patient does not have new or worsening altered mentation. Patient's respiratory rate is less than 22. Systolic blood pressure is greater than 100. Patient has a qSOFA score of 0- Negative Sepsis Screen. Suicide/Homicide risk assessment- the patient denies having any suicidal and/or homicidal ideations and does not present with any other emotional, behavioral or mental health complaints. Status: Patient is not a service vehicle operator or dependent. Transition of care: patient was not received from another setting of care. 15:54 Acuity: KIM Level 4 kc3 15:54 Method Of Arrival: Ambulance kc3 Triage Assessment: 16:00 General: Appears overall presentation unchanged from multiple prior ED visits, last jmk being 48 hours prior to arrival. Whimpering and variety of complaints that vary from back pain to dizziness to headache and overall pain. Vega intact with cloudy urine. Hesitant to provide history as she views questions as to mechanism of injury as interrogation and elects not to provide information/. Historical: - Allergies: Darvocet-N 100 (Hives); Darvon (itching); Demerol (Vomit); Macrodantin (Vomit); PENICILLINS (Hives); - Home Meds: 1. albuterol sulfate 90 mcg/actuation Inhl HFAA 2 puffs every 4-6 hours 2. Eliquis 5 mg oral tab 1 tab 2 times per day 3. hydrocodone-acetaminophen 7.5-750 mg Oral tab 1 tab every 4 hours as needed for Pain 4. Klonopin 0.25 mg Oral tab 1 tab nightly 5. Lamictal 25 mg Oral tab 2 times per day 6. Lomotil 2.5-0.025 mg oral tab 2 tabs prn 7. loperamide 2 mg Oral tab as needed 8. meclizine 50 mg Oral tab 1 tab 2 times per day 9. Miralax 17 gram/dose Oral powd once daily 10. Motrin 400 mg Oral tab 1 tab every 4 hours 11. potassium chloride 20 mEq Oral cpER 1 tab as needed 12. promethazine 25 mg Oral tab 1 tab every 6 hours as needed 13. Sudafed 60 mg Oral tab 1 tab twice a day 14. Zyprexa 10 mg Oral tab QHS - PMHx: Anxiety; Asthma; Bipolar disorder; Chronic Back pain; chronic vega catheter; DVT; GERD; spinal tumor; - PSHx: spinal tumor removal; - Social history: Smoking status: Patient states former smoker of tobacco. No barriers to communication noted. - Family history: Not pertinent. - : The pt / caregiver states he / she is on a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: Eliquis Home medication list is obtained from the patient. - Exposure Risk Screening:: None identified. Screenin:07 Screening information is obtained from the patient. Fall risk: At risk due to prior k history of falls. Assistance ADL's: requires no assistance with activities of daily living. Abuse/DV Screen: The patient / caregiver reports he/she is: not in a situation that causes fear, pain or injury. Nutritional screening: No deficits noted. Advance Directives: Currently, there is no health care proxy. There is no active DNR order. There is no living will. There is no Power of Fuel Cell Test Engineer. Advance directive information has not previously been placed in an [facility] medical record. Further advance directive information is declined. home support is adequate. Assessment: 16:07 General: Appears presently resting in right side laying position and is resistant to jmk interventions. Manipulative with responses and becomes argumentative. resistant ot performing of body survey . 17:11 General: Appears throwing medical equipment at staff. demanding blankets, Vaseline, x jmk rays, departure etc. etc. 18:23 General: Appears stated during her tirade that she intended to kill self. awaiting PSA jmk intervention. 18:31 General: Pt given sandwich and orange juice per request. . kc3 19:09 General: Appears in no apparent distress, Behavior is agitated, uncooperative, pt af2 assisted to get dressed at this time, shouting making threats, states to EMRE Rodriguez "I will call the police on you.". Neurological: Level of Consciousness is awake, alert, Speech is normal. Respiratory: Airway is patent Respiratory effort is even, unlabored. Derm: Skin is normal. Musculoskeletal: No deficits noted. 19:26 General: this screenplay writer called medicaid for transport home, [facility] to take pt home via af2 stretcher. . Social Work Consult: 19:11 Social Work Note: Met with Pt at bedside per request EMRE Rodriguez. Pt was A&Ox3, calm and rb cooperative, denied SI/HI, denied AH/VH, used good eye contact, and pleasant to talk with. Pt stated foot hurts when she walks on it. Pt uses a walker at home. Pt declines referrals for services in the home. No safety concerns noted. No further interventions needed at this time. Vital Signs: 16:01 BP 130 / 88; Pulse 95; Resp 20; Temp 100.0(TE); Pulse Ox 96% on R/A; nb2 Vitals: 16:01 Log In Time N/A - ambulance arrival. nb2 ED Course: 15:48 Patient visited by Madalyn Mancuso, Lumber Tailer. lbd 15:48 Daisy Rodriguez is Private Physician. lbd 15:48 Patient moved to Waiting lbd 15:48 Patient moved to I4 / M4 lbd 15:56 Triage Initiated kc3 16:01 Patient visited by Anita Ramos. nb2 16:01 Placed in gown. Bed in low position. Call light in reach. Side rails up X2. nb2 17:18 Patient visited by Shandra Rodriguez PCA. jb5 17:18 Patient visited by Shandra Rodriguez PCA. jb5 17:18 elevated feet per patient swab for dry mouth. jb5 17:21 Letty Shaw PA-C is PHCP. dt4 17:21 Sunitha Shepard MD is Attending Physician. dt4 17:21 Patient visited by Letty Shaw PA-C. dt4 17:29 Warm blanket given. Pillow given. jb5 17:30 PO fluids given. jb5 17:31 ice pack given. jb5 17:32 Patient visited by Shandra Rodriguez PCA. jb5 18:02 PHCP role handed off by Letty Shaw PA-C mo1 18:02 Jasen Rodriguez PA is PHCP. mo1 18:31 Patient visited by Pamela Campos RN. kc3 19:05 Daisy Rodriguez is Referral Physician. mo1 19:08 Knee, Complete Returned. EDMS 19:08 Spine, Cerv-3 View; No Collar Returned. EDMS 19:17 Patient visited by So Gonzales RN. af2 19:24 [facility] Payment Agreement was scanned into [employer] and attached to record. zo 19:27 Patient visited by So Gonzales RN. af2 19:28 Patient moved to 30 ajs 19:35 Pt ambulated from stretcher to chair with staff by side. pt noted to ambulate without ajs assistance from staff. Pt agitated with discharge findings, yelling at staff. Pt states that she "wants to rip out his gut" when referring to EMRE Rodriguez. Pt also states she is going to have the mafia come after physician that saw her and kill him in his car. Pt states she wants the physician that saw her arrested and that staff needs to call the police. Pt assisted to wheelchair and wheeled to RM 30 to await transportation home while wheeling pt to room pt ripped part of purell dispenser off the wall and grabbed the linen cart. marketing strategist aware. 19:[address] ajs Administered Medications: 17:57 Drug: Acetaminophen 650 mg [acetaminophen 325 mg tablet (2 tabs)] Route: PO; jmk 19:09 Follow up: Response: No Adverse Reaction af2 Output: 17:30 Urine: 700.00ml (Vega); Total: 700.00ml. jb5 Order Results: Radiology Order: Spine, Cerv-3 View; No Collar Test: Spine, Cerv-3 View; No Collar REASON FOR EXAMINATION: PT STATES FALL, NECK PAIN; Clinical: Pain with recent trauma/fall.; ; Technique: AP, lateral, swimmers, and open mouth views.; ; Comparison: 07/04/2012.; ; Findings:; Moderate to early advanced degenerative disc osteophyte complexes are appreciated; along with age-related osteopenia. Alignment is maintained. No obvious acute; fracture / compression injury or subluxation. Open mouth view demonstrates; normal C1-C2 articulation and odontoid process.; ; Impression:; Osteopenia and moderate to early advanced multilevel degenerative changes.; No obvious acute fracture or subluxation.; ; ; Signed by; Boyd Ford MD 08/02/2016 06:08 P; Radiology Order: Knee, Complete Test: Knee, Complete REASON FOR EXAMINATION: PT STATES FALL, BILAT KNEE PAIN; Clinical: Fall with bilateral knee pain.; ; Technique: AP, lateral, bilateral oblique views of the right and left knee.; ; Findings: Moderate tricompartmental osteoarthritic degenerative changes are; appreciated bilaterally. Findings include osteophytosis, spurring of the tibial; spines and chondrocalcinosis. No obvious acute fracture or dislocation. No; definite effusion.; ; Impression:; Moderate tricompartmental osteoarthritic degenerative changes appear relatively; symmetric.; No obvious acute fracture or dislocation.; ; ; Signed by; Boyd Ford MD 08/02/2016 06:06 P; Outcome: 19:06 Discharge ordered by Provider. mo1 20:30 Patient left the ED. mcp Signatures: Dispatcher [employer] EDMS Madalyn Mancuso, Lumber Tailer Unit lbd Sanford Alexis RN RN jmk Peters, Mary, RN RN chandana Vargas, Jojo, PSA PSA rb Shandra Rodriguez, ENERGY CONSERVATION ENGINEER ENERGY CONSERVATION ENGINEER jb5 Janis Robles Amanda ajs O'Hagan, Michael, PA PA mo1 Letty Shaw PA-C PA-C dt4 So GonzalesRN RN af2 Pamela Campos,GEORGE RN kc3 Anita Ramos2 MTDD
--- NOTE | 2016-08-04 21:31 | EDDOCDS ---
Physician Documentation [facility] Name: Sole Ramirez Age: 61 yrs Sex: Female : 1955 Arrival Date: 08/02/2016 Time: 15:46 Bed 30 Private MD: Daisy Rodriguez Disposition: 08/02/16 19:06 Discharged to Home/Self Care. Impression: Fall from chair, Abrasion of back wall of thorax, Contusion of knee. - Condition is Stable. - Discharge Instructions: Back Pain, Adult, Knee Pain, Fall Prevention and Home Safety. - Medication Reconciliation, Local Pharmacy Hours form. - Follow up: Emergency Department; When: As needed; Reason: Worsening of conditions. Follow up: Daisy Rodriguez; When: 2 - 3 days; Reason: Wound/Symptom Recheck, Recheck today's complaints, Continuance of care. - Problem is new. - Symptoms are unchanged. Historical: - Allergies: Darvocet-N 100 (Hives); Darvon (itching); Demerol (Vomit); Macrodantin (Vomit); PENICILLINS (Hives); - Home Meds: 1. albuterol sulfate 90 mcg/actuation Inhl HFAA 2 puffs every 4-6 hours 2. Eliquis 5 mg oral tab 1 tab 2 times per day 3. hydrocodone-acetaminophen 7.5-750 mg Oral tab 1 tab every 4 hours as needed for Pain 4. Klonopin 0.25 mg Oral tab 1 tab nightly 5. Lamictal 25 mg Oral tab 2 times per day 6. Lomotil 2.5-0.025 mg oral tab 2 tabs prn 7. loperamide 2 mg Oral tab as needed 8. meclizine 50 mg Oral tab 1 tab 2 times per day 9. Miralax 17 gram/dose Oral powd once daily 10. Motrin 400 mg Oral tab 1 tab every 4 hours 11. potassium chloride 20 mEq Oral cpER 1 tab as needed 12. promethazine 25 mg Oral tab 1 tab every 6 hours as needed 13. Sudafed 60 mg Oral tab 1 tab twice a day 14. Zyprexa 10 mg Oral tab QHS - PMHx: Anxiety; Asthma; Bipolar disorder; Chronic Back pain; chronic vega catheter; DVT; GERD; spinal tumor; - PSHx: spinal tumor removal; - Social history: Smoking status: Patient states former smoker of tobacco. No barriers to communication noted. - Family history: Not pertinent. - : The pt / caregiver states he / she is on a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: Eliquis Home medication list is obtained from the patient. - Exposure Risk Screening:: None identified. Vital Signs: 08/02 16:01 BP 130 / 88; Pulse 95; Resp 20; Temp 100.0(TE); Pulse Ox 96% on R/A; nb2 MDM: 17:28 Spine, Cerv-3 View; No Collar Ordered. EDMS 17:29 Knee, Complete Ordered. EDMS 17:35 Acetaminophen Tablet 650 mg PO once ordered. dt4 17:36 Consult PFS/PSA/Freight Brakeman: Safety Concerns ordered. dt4 17:39 ED course: PT WITH PRESSURED SPEECH, TANGENTIAL THOUGHTS. UNABLE TO ANSWER ALL dt4 PROVIDER'S QUESTIONS, PT AGITATED. SWEARING AT STAFF. MADE AWARE BY KURT ALANIS THAT PT MADE SUICIDAL REMARK TO HER WHILE SHE WAS IN THE ROOM. PSA CONSULT PLACED AT THAT TIME.. 19:09 Financial registration complete. zo 19:09 Consult PFS/PSA/Freight Brakeman: Safety Concerns complete. af2 19:24 [facility] Payment Agreement was scanned into [employer] and attached to record. zo 08/03 09:27 T-Sheet-- Draft Copy was scanned into [employer] and attached to record. gb Administered Medications: 08/02 17:57 Drug: Acetaminophen 650 mg [acetaminophen 325 mg tablet (2 tabs)] Route: PO; jmk 19:09 Follow up: Response: No Adverse Reaction af2 Signatures: Dispatcher [employer] EDSanford Koo RN RN jmk Peters, Mary, RN RN mcp Barnhardt, Gloria, Anderson Reg Janis Osborne Michael, PA PA mo1 Letty Shaw PA-C PAJesse dt4 So Gonzales RN RN af2 The chart was reviewed and I authenticate all verbal orders and agree with the evaluation and treatment provided.Attachments: 19:24 [facility] Payment Agreement zo 08/03 09:27 T-Sheet-- Draft Copy gb Chart Complete MTDD
--- NOTE | 2016-08-04 21:31 | EDDOCDS ---
Nurse's Notes [facility] Name: Sole Ramirez Age: 61 yrs Sex: Female : 1955 Arrival Date: 08/02/2016 Time: 15:46 Bed 30 Private MD: Daisy Rodriguez Diagnosis: Fall from chair;Abrasion of back wall of thorax;Contusion of knee Presentation: 08/02 15:54 Presenting complaint: EMS states: pt lifting box with legs going numb and falling kc3 today. Pt c/o leg and knee pain. Adult Sepsis Screening: The patient does not have new or worsening altered mentation. Patient's respiratory rate is less than 22. Systolic blood pressure is greater than 100. Patient has a qSOFA score of 0- Negative Sepsis Screen. Suicide/Homicide risk assessment- the patient denies having any suicidal and/or homicidal ideations and does not present with any other emotional, behavioral or mental health complaints. Status: Patient is not a school services officer or dependent. Transition of care: patient was not received from another setting of care. 15:54 Acuity: KIM Level 4 kc3 15:54 Method Of Arrival: Ambulance kc3 Triage Assessment: 16:00 General: Appears overall presentation unchanged from multiple prior ED visits, last jmk being 48 hours prior to arrival. Whimpering and variety of complaints that vary from back pain to dizziness to headache and overall pain. Vega intact with cloudy urine. Hesitant to provide history as she views questions as to mechanism of injury as interrogation and elects not to provide information/. Historical: - Allergies: Darvocet-N 100 (Hives); Darvon (itching); Demerol (Vomit); Macrodantin (Vomit); PENICILLINS (Hives); - Home Meds: 1. albuterol sulfate 90 mcg/actuation Inhl HFAA 2 puffs every 4-6 hours 2. Eliquis 5 mg oral tab 1 tab 2 times per day 3. hydrocodone-acetaminophen 7.5-750 mg Oral tab 1 tab every 4 hours as needed for Pain 4. Klonopin 0.25 mg Oral tab 1 tab nightly 5. Lamictal 25 mg Oral tab 2 times per day 6. Lomotil 2.5-0.025 mg oral tab 2 tabs prn 7. loperamide 2 mg Oral tab as needed 8. meclizine 50 mg Oral tab 1 tab 2 times per day 9. Miralax 17 gram/dose Oral powd once daily 10. Motrin 400 mg Oral tab 1 tab every 4 hours 11. potassium chloride 20 mEq Oral cpER 1 tab as needed 12. promethazine 25 mg Oral tab 1 tab every 6 hours as needed 13. Sudafed 60 mg Oral tab 1 tab twice a day 14. Zyprexa 10 mg Oral tab QHS - PMHx: Anxiety; Asthma; Bipolar disorder; Chronic Back pain; chronic vega catheter; DVT; GERD; spinal tumor; - PSHx: spinal tumor removal; - Social history: Smoking status: Patient states former smoker of tobacco. No barriers to communication noted. - Family history: Not pertinent. - : The pt / caregiver states he / she is on a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: Eliquis Home medication list is obtained from the patient. - Exposure Risk Screening:: None identified. Screenin:07 Screening information is obtained from the patient. Fall risk: At risk due to prior k history of falls. Assistance ADL's: requires no assistance with activities of daily living. Abuse/DV Screen: The patient / caregiver reports he/she is: not in a situation that causes fear, pain or injury. Nutritional screening: No deficits noted. Advance Directives: Currently, there is no health care proxy. There is no active DNR order. There is no living will. There is no Power of Concrete Finisher Apprentice. Advance directive information has not previously been placed in an [facility] medical record. Further advance directive information is declined. home support is adequate. Assessment: 16:07 General: Appears presently resting in right side laying position and is resistant to jmk interventions. Manipulative with responses and becomes argumentative. resistant ot performing of body survey . 17:11 General: Appears throwing medical equipment at staff. demanding blankets, Vaseline, x jmk rays, departure etc. etc. 18:23 General: Appears stated during her tirade that she intended to kill self. awaiting PSA jmk intervention. 18:31 General: Pt given sandwich and orange juice per request. . kc3 19:09 General: Appears in no apparent distress, Behavior is agitated, uncooperative, pt af2 assisted to get dressed at this time, shouting making threats, states to EMRE Rodriguez "I will call the police on you.". Neurological: Level of Consciousness is awake, alert, Speech is normal. Respiratory: Airway is patent Respiratory effort is even, unlabored. Derm: Skin is normal. Musculoskeletal: No deficits noted. 19:26 General: this financial writer called medicaid for transport home, [facility] to take pt home via af2 stretcher. . Social Work Consult: 19:11 Social Work Note: Met with Pt at bedside per request EMRE Rodriguez. Pt was A&Ox3, calm and rb cooperative, denied SI/HI, denied AH/VH, used good eye contact, and pleasant to talk with. Pt stated foot hurts when she walks on it. Pt uses a walker at home. Pt declines referrals for services in the home. No safety concerns noted. No further interventions needed at this time. Vital Signs: 16:01 BP 130 / 88; Pulse 95; Resp 20; Temp 100.0(TE); Pulse Ox 96% on R/A; nb2 Vitals: 16:01 Log In Time N/A - ambulance arrival. nb2 ED Course: 15:48 Patient visited by Madalyn Mancuso, Junior Qa Analyst. lbd 15:48 Daisy Rodriguez is Private Physician. lbd 15:48 Patient moved to Waiting lbd 15:48 Patient moved to I4 / M4 lbd 15:56 Triage Initiated kc3 16:01 Patient visited by Anita Ramos. nb2 16:01 Placed in gown. Bed in low position. Call light in reach. Side rails up X2. nb2 17:18 Patient visited by Shandra Rodriguez PCA. jb5 17:18 Patient visited by Shandra Rodriguez PCA. jb5 17:18 elevated feet per patient swab for dry mouth. jb5 17:21 Letty Shaw PA-C is PHCP. dt4 17:21 Sunitha Shepard MD is Attending Physician. dt4 17:21 Patient visited by Letty Shaw PA-C. dt4 17:29 Warm blanket given. Pillow given. jb5 17:30 PO fluids given. jb5 17:31 ice pack given. jb5 17:32 Patient visited by Shandra Rodriguez PCA. jb5 18:02 PHCP role handed off by Letty Shaw PA-C mo1 18:02 Jasen Rodriguez PA is PHCP. mo1 18:31 Patient visited by Pamela Campos RN. kc3 19:05 Daisy Rodriguez is Referral Physician. mo1 19:08 Knee, Complete Returned. EDMS 19:08 Spine, Cerv-3 View; No Collar Returned. EDMS 19:17 Patient visited by So Gonzales RN. af2 19:24 [facility] Payment Agreement was scanned into [employer] and attached to record. zo 19:27 Patient visited by So Gonzales RN. af2 19:28 Patient moved to 30 ajs 19:35 Pt ambulated from stretcher to chair with staff by side. pt noted to ambulate without ajs assistance from staff. Pt agitated with discharge findings, yelling at staff. Pt states that she "wants to rip out his gut" when referring to EMRE Rodriguez. Pt also states she is going to have the mafia come after physician that saw her and kill him in his car. Pt states she wants the physician that saw her arrested and that staff needs to call the police. Pt assisted to wheelchair and wheeled to RM 30 to await transportation home while wheeling pt to room pt ripped part of purell dispenser off the wall and grabbed the linen cart. residential designer aware. 19:[address] ajs 08/03 09:27 T-Sheet-- Draft Copy was scanned into [employer] and attached to record. gb Administered Medications: 08/02 17:57 Drug: Acetaminophen 650 mg [acetaminophen 325 mg tablet (2 tabs)] Route: PO; jmk 19:09 Follow up: Response: No Adverse Reaction af2 Output: 17:30 Urine: 700.00ml (Vega); Total: 700.00ml. jb5 Order Results: Radiology Order: Spine, Cerv-3 View; No Collar Test: Spine, Cerv-3 View; No Collar REASON FOR EXAMINATION: PT STATES FALL, NECK PAIN; Clinical: Pain with recent trauma/fall.; ; Technique: AP, lateral, swimmers, and open mouth views.; ; Comparison: 07/04/2012.; ; Findings:; Moderate to early advanced degenerative disc osteophyte complexes are appreciated; along with age-related osteopenia. Alignment is maintained. No obvious acute; fracture / compression injury or subluxation. Open mouth view demonstrates; normal C1-C2 articulation and odontoid process.; ; Impression:; Osteopenia and moderate to early advanced multilevel degenerative changes.; No obvious acute fracture or subluxation.; ; ; Signed by; Boyd Ford MD 08/02/2016 06:08 P; Radiology Order: Knee, Complete Test: Knee, Complete REASON FOR EXAMINATION: PT STATES FALL, BILAT KNEE PAIN; Clinical: Fall with bilateral knee pain.; ; Technique: AP, lateral, bilateral oblique views of the right and left knee.; ; Findings: Moderate tricompartmental osteoarthritic degenerative changes are; appreciated bilaterally. Findings include osteophytosis, spurring of the tibial; spines and chondrocalcinosis. No obvious acute fracture or dislocation. No; definite effusion.; ; Impression:; Moderate tricompartmental osteoarthritic degenerative changes appear relatively; symmetric.; No obvious acute fracture or dislocation.; ; ; Signed by; Boyd Ford MD 08/02/2016 06:06 P; Outcome: 19:06 Discharge ordered by Provider. mo1 20:30 Patient left the ED. [facility] Signatures: Dispatcher [employer] EDMS Madalyn Mancuso, Junior Qa Analyst Unit lbd Sanford Alexis RN RN jmk Peters, Mary RN RN [facility] Jojo Vargas, PSA PSA rb Deonna Sy, Anderson Reg gb Shandra Rodriguez, HORSE BUYER HORSE BUYER jb5 Janis Robles Amanda ajs O'Hagan, Michael, PA PA mo1 Letty Shaw PA-C PA-C dt4 So Gonzales RN RN af2 Pamela Campos,GEORGE RN kc3 Anita Ramos Chart Complete MTDD
--- NOTE | 2016-08-04 21:31 | EDDOCDS ---
Physician Documentation [facility] Name: Sole Ramirez Age: 61 yrs Sex: Female : 1955 Arrival Date: 08/02/2016 Time: 15:46 Bed 30 Private MD: Daisy Rodriguez Disposition: 08/02/16 19:06 Discharged to Home/Self Care. Impression: Fall from chair, Abrasion of back wall of thorax, Contusion of knee. - Condition is Stable. - Discharge Instructions: Back Pain, Adult, Knee Pain, Fall Prevention and Home Safety. - Medication Reconciliation, Local Pharmacy Hours form. - Follow up: Emergency Department; When: As needed; Reason: Worsening of conditions. Follow up: Daisy Rodriguez; When: 2 - 3 days; Reason: Wound/Symptom Recheck, Recheck today's complaints, Continuance of care. - Problem is new. - Symptoms are unchanged. Historical: - Allergies: Darvocet-N 100 (Hives); Darvon (itching); Demerol (Vomit); Macrodantin (Vomit); PENICILLINS (Hives); - Home Meds: 1. albuterol sulfate 90 mcg/actuation Inhl HFAA 2 puffs every 4-6 hours 2. Eliquis 5 mg oral tab 1 tab 2 times per day 3. hydrocodone-acetaminophen 7.5-750 mg Oral tab 1 tab every 4 hours as needed for Pain 4. Klonopin 0.25 mg Oral tab 1 tab nightly 5. Lamictal 25 mg Oral tab 2 times per day 6. Lomotil 2.5-0.025 mg oral tab 2 tabs prn 7. loperamide 2 mg Oral tab as needed 8. meclizine 50 mg Oral tab 1 tab 2 times per day 9. Miralax 17 gram/dose Oral powd once daily 10. Motrin 400 mg Oral tab 1 tab every 4 hours 11. potassium chloride 20 mEq Oral cpER 1 tab as needed 12. promethazine 25 mg Oral tab 1 tab every 6 hours as needed 13. Sudafed 60 mg Oral tab 1 tab twice a day 14. Zyprexa 10 mg Oral tab QHS - PMHx: Anxiety; Asthma; Bipolar disorder; Chronic Back pain; chronic vega catheter; DVT; GERD; spinal tumor; - PSHx: spinal tumor removal; - Social history: Smoking status: Patient states former smoker of tobacco. No barriers to communication noted. - Family history: Not pertinent. - : The pt / caregiver states he / she is on a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: Eliquis Home medication list is obtained from the patient. - Exposure Risk Screening:: None identified. Vital Signs: 08/02 16:01 BP 130 / 88; Pulse 95; Resp 20; Temp 100.0(TE); Pulse Ox 96% on R/A; nb2 MDM: 17:28 Spine, Cerv-3 View; No Collar Ordered. EDMS 17:29 Knee, Complete Ordered. EDMS 17:35 Acetaminophen Tablet 650 mg PO once ordered. dt4 17:36 Consult PFS/PSA/Dog Sitter: Safety Concerns ordered. dt4 17:39 ED course: PT WITH PRESSURED SPEECH, TANGENTIAL THOUGHTS. UNABLE TO ANSWER ALL dt4 PROVIDER'S QUESTIONS, PT AGITATED. SWEARING AT STAFF. MADE AWARE BY KURT ALANIS THAT PT MADE SUICIDAL REMARK TO HER WHILE SHE WAS IN THE ROOM. PSA CONSULT PLACED AT THAT TIME.. 19:09 Financial registration complete. zo 19:09 Consult PFS/PSA/Dog Sitter: Safety Concerns complete. af2 19:24 [facility] Payment Agreement was scanned into [employer] and attached to record. zo 08/03 09:27 T-Sheet-- Draft Copy was scanned into [employer] and attached to record. gb Administered Medications: 08/02 17:57 Drug: Acetaminophen 650 mg [acetaminophen 325 mg tablet (2 tabs)] Route: PO; jmk 19:09 Follow up: Response: No Adverse Reaction af2 Signatures: Dispatcher [employer] EDSanford Koo RN RN jmk Peters, Mary, RN RN mcp Barnhardt, Gloria, Anderson Reg Janis Osborne Michael, PA PA mo1 Letty Shaw PA-C PAJesse dt4 So Gonzales RN RN af2 The chart was reviewed and I authenticate all verbal orders and agree with the evaluation and treatment provided.Attachments: 19:24 [facility] Payment Agreement zo 08/03 09:27 T-Sheet-- Draft Copy gb Chart Complete MTDD
== END 2016-08-02 20:30 | disposition home or self-care (01) ==
LOC: M ED 15:46
DX: S80.01XA Contusion of right knee, initial encounter (principal); S20.229A Contusion of unspecified back wall of thorax, initial encounter; W07.XXXA Fall from chair, initial encounter; Y92.019 Unspecified place in single-family (private) house as the place of occurrence of the external cause; Y93.89 Activity, other specified; Y99.8 Other external cause status; F31.9 Bipolar disorder, unspecified; J45.909 Unspecified asthma, uncomplicated; M54.9 Dorsalgia, unspecified; Z86.718 Personal history of other venous thrombosis and embolism; K21.9 Gastro-esophageal reflux disease without esophagitis; Z87.891 Personal history of nicotine dependence; Z79.01 Long term (current) use of a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; Z79.51 Long term (current) use of inhaled steroids; Z79.899 Other long term (current) drug therapy; Z88.8 Allergy status to other drugs, medicaments and biological substances; Z88.0 Allergy status to penicillin

== ENCOUNTER 2016-08-11 08:33 | Emergency (ER) | payer MEDICARE, MEDICAID ==
--- NOTE | 2016-08-11 09:30 | REP ---
PA and lateral chest 08/11/2016 Indication: Cough Comparison: PA and lateral chest 03/25/2016, 03/14/2015 Findings: Cardiomediastinal silhouette is normal. Small amount of fibrotic scarring is identified in the lingula and left lower lobe. There is mild eventration of the right hemidiaphragm without change. There is generalized osteopenia within the spine; and moderate rotatory dextroscoliosis with apex at approximately T12-L1. Impression: No acute cardiopulmonary process or interval change Signed by Lucero Jacobsen MD 08/11/2016 09:21 A
[2016-08-11] MEDS ORDERED: ANEXSIA, NORCO 7.5MG/325MG TABLET(HYDROCODONE/APAP) As Ordered ONE ×2 (09:36→14:33)
[2016-08-11 10:07] LABS: CALCIUM OXALATE CRYSTALS SMALL
[2016-08-11 10:27] LABS: BASO % 0.4 % (0.0-1.0); EOS # 0.1 K/mm3 (0.0-0.50); LARGE UNSTAINED CELL # 0.1 K/mm3 (0.0-0.4); LARGE UNSTAINED CELL % 2.3 % (0.0-4.0); LYMPH # 1.3 K/mm3 (1.5-4.5); LYMPH % 39.1 % (24.0-44.0); MEAN CORPUSCULAR HGB CONC 30.1 g/dl (32.0-36.5); MEAN CORPUSCULAR VOLUME 99.8 fl (80.0-96.0); MONO # 0.1 K/mm3 (0.0-0.8); MONO % 3.4 % (0.0-5.0); NEUTROPHILS # 1.7 K/mm3 (1.8-7.7); NEUTROPHILS % 50.8 % (36.0-66.0); PLATELET COUNT, AUTOMATED 155 k/mm3 (150-450); RED CELL DISTRIBUTION WIDTH 14.1 % (11.5-14.5); WHITE BLOOD COUNT 3.2 K/mm3 (4.0-10.0)
[2016-08-11 10:49] LABS: ANION GAP 6 MEQ/L (8-16); BLOOD UREA NITROGEN 13 MG/DL (7-18); CALCIUM LEVEL 8.7 MG/DL (8.8-10.2); CARBON DIOXIDE LEVEL 31 MEQ/L (21-32); CHLORIDE LEVEL 106 MEQ/L (98-107); CREATININE FOR GFR 0.75 MG/DL (0.55-1.02); GLOMERULAR FILTRATION RATE > 60.0 (>45); GLUCOSE, FASTING 101 MG/DL (80-110); SODIUM LEVEL 143 MEQ/L (136-145)
--- NOTE | 2016-08-11 15:52 | EDDOCDS ---
Nurse's Notes [facility] Name: Sole Ramirez Age: 61 yrs Sex: Female : 1955 Arrival Date: 08/11/2016 Time: 08:33 Bed 8 Private MD: Koffi Shea Diagnosis: Acute pharyngitis;Hematuria Presentation: 08/11 08:35 Presenting complaint: EMS states: cough, pain in buttocks and blood in urinary pml catheter. Adult Sepsis Screening: The patient does not have new or worsening altered mentation. Patient's respiratory rate is less than 22. Systolic blood pressure is greater than 100. Patient has a qSOFA score of 0- Negative Sepsis Screen. Suicide/Homicide risk assessment- the patient denies having any suicidal and/or homicidal ideations and does not present with any other emotional, behavioral or mental health complaints. Status: Patient is not a vice president of consulting services or dependent. Transition of care: patient was not received from another setting of care. 08:35 Acuity: KIM Level 4 pml 08:35 Method Of Arrival: Ambulance pml Triage Assessment: 08:39 General: Appears in no apparent distress, Behavior is appropriate for age, cooperative. pml Pain: Location: sore throat Pain currently is 10 out of 10 on a pain scale. HIV screening NA for this visit Offered previously. The patient is triaged at the bedside. See Assessment in Nurses Notes section of ED record. Neurological: Level of Consciousness is awake, alert, Oriented to person, place, time. EENT: Reports pain when swallowing. Cardiovascular: Capillary refill < 3 seconds. Respiratory: Airway is patent Respiratory effort is even, unlabored, Respiratory pattern is regular, symmetrical. GI: Abdomen is non- distended. : Reports hematuria noted in bag last night - urine dark erick with sediment. : Vega in place to gravity drainage. Derm: Skin is pink, warm & dry. Historical: - Allergies: Darvocet-N 100 (Hives); Darvon (itching); Demerol (Vomit); Macrodantin (Vomit); PENICILLINS (Hives); - Home Meds: 1. albuterol sulfate 90 mcg/actuation Inhl HFAA 2 puffs every 4-6 hours 2. Eliquis 5 mg oral tab 1 tab 2 times per day 3. hydrocodone-acetaminophen 7.5-750 mg Oral tab 1 tab every 4 hours as needed for Pain &#13(Last dose: 08/10/2016) 4. Klonopin 0.25 mg Oral tab 1 tab nightly (Last dose: 08/10/2016) 5. Lomotil 2.5-0.025 mg oral tab 2 tabs prn 6. loperamide 2 mg Oral tab as needed 7. meclizine 50 mg Oral tab 1 tab 2 times per day 8. Miralax 17 gram/dose Oral powd once daily 9. Motrin 400 mg Oral tab 1 tab every 4 hours 10. Sudafed 60 mg Oral tab 1 tab twice a day 11. Zyprexa 10 mg Oral tab QHS - PMHx: Anxiety; Asthma; Bipolar disorder; Chronic Back pain; chronic vega catheter; DVT; GERD; spinal tumor; - PSHx: spinal tumor removal; - Social history: Smoking status: Patient states was never smoker of tobacco. No barriers to communication noted, The patient speaks fluent Scottish, Speaks appropriately for age. - Family history: Not pertinent. - : The pt / caregiver states he / she is on a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: [employer] Home medication list is obtained from the patient. - Exposure Risk Screening:: None identified. Screenin:53 Screening information is obtained from the patient. Fall risk: No risks identified. pml Assistance ADL's: requires no assistance with activities of daily living. Abuse/DV Screen: The patient / caregiver reports he/she is: not in a situation that causes fear, pain or injury. Nutritional screening: No deficits noted. Advance Directives: Currently, there is no health care proxy. home support is adequate. Assessment: 08:41 General: see triage note. pml 09:53 General: Appears in no apparent distress, Behavior is appropriate for age, cooperative. pml Pain: Location: sore throat and buttocks. Neurological: Level of Consciousness is awake, alert, Oriented to person, place, time. Cardiovascular: Capillary refill < 3 seconds. Respiratory: Airway is patent Respiratory effort is even, unlabored. GI: Abdomen is non- distended. Derm: Skin is pink, warm & dry. 11:30 General: Appears in no apparent distress, comfortable, Behavior is cooperative, first [facility] contact with patient, report received from GEORGE Zepeda. Patient reports back pain 10/10 unrelieved from medications and ongoing pain in upper chest when coughing. Respiratory: Airway is patent Respiratory effort is even, unlabored, Breath sounds are clear bilaterally. 12:30 General: patient offered turkey sandwich/boxed lunch per request, patient refuses [facility] stating "I don't like it". 13:30 General: patient has declined to eat meal tray placed at bedside, states "I don't want [facility] that, I want something else". 14:40 General: patient has wheeled herself into hallway states no one is helping me and my [facility] foot hurts and I can't get my boot on. Nursing acoustical tile carpenters supervisor aware and obtained soup per patient request. Dr. Longoria in room to evaluate, offered patient Xray of foot, patient refuses. . 14:55 General: Patient refuses pain meds after multiple attempts to offer, prolonged [facility] discussion and many explanations patient states "I'll just take meds when I get home". 15:00 General: approached room and found patient walking around in room, observed bearing [facility] weight on both feet, patient returns to wheelchair when approached by this racebook writer. 15:16 General: patient stating she won't sign discharge papers. [facility] Social Work Consult: 15:04 Social Work Note: Patient transportation via [employer] stretcher arranged with [employer], as the Service was unable to secure any transport via ambulette at this time. Vital Signs: 08:40 BP 153 / 71; Pulse 85; Resp 18; Temp 99.0(TE); Pulse Ox 98% on R/A; Weight 86.18 kg ct3 (R); Height 5 ft. 3 in. (160.02 cm) (R); 11:30 BP 139 / 70; Pulse 74; Resp 16; Pulse Ox 96% ; Pain 10/10; cjh 08:40 Body Mass Index 33.66 (86.18 kg, 160.02 cm) ct3 Vitals: 08:41 Log In Time N/A - ambulance arrival. ct3 09:19 Strep Screen is obtained and tested: Negative, a GATSNEG culture is ordered in [facility] and sent. ED Course: 08:34 Patient visited by Janis Pierre PCA. ar3 08:34 Patient moved to Waiting ar3 08:35 Katelyn MartinGEORGE is Primary Nurse. ar3 08:35 Koffi Shea MD is Private Physician. ar3 08:35 Patient moved to 8 ar3 08:36 Triage Initiated pml 08:41 Patient visited by Katelyn Martin RN. pml 08:41 Patient visited by Renetta Dukes PCA. ct3 08:41 Patient has correct armband on for positive identification. Placed in gown. Bed in low ct3 position. Call light in reach. Side rails up X2. Cardiac monitoring not applicable on this patient. 09:01 Gab Longoria MD is Attending Physician. br1 09:26 Patient visited by Gab Longoria MD. br1 09:46 Chest, 2 View (pa\\E\\lat) Returned. EDMS 09:53 Patient visited by Katelyn Martin RN. pml 09:53 The patient / caregiver is instructed regarding the plan of care and ED course. pml 09:53 Labs drawn. (by ED staff). Sent per order to lab. pml 09:53 No IV's were initiated during this patient's visit. No procedures done that require pml assistance. 09:54 Patient visited by Katelyn Martin RN. pml 10:00 Diet: Patient given snack. Patient given juice. nb2 10:20 [facility] Payment Agreement was scanned into [employer] and attached to record. mpb 11:01 Patient visited by Renetta Dukes PCA. ct3 11:32 Patient visited by Maria R Chang RN. cjh 11:45 Diet: Patient given juice. nb2 12:30 Patient visited by Renetta Dukes PCA. ct3 13:38 Patient visited by Renetta Dukes PCA. ct3 14:08 Patient visited by Gab Longoria MD. br1 14:10 Koffi Shea MD is Referral Physician. br1 15:52 Patient visited by Chester Tobin RN. bcj Administered Medications: 09:40 Drug: HYDROcodone-acetaminophen 1 tabs [hydrocodone 7.5 mg-acetaminophen 325 mg tablet pml (1 tabs)] Route: PO; 11:32 Follow up: Response: Confirmed pt not driving.; No Adverse Reaction; No significant cjh change. 15:26 Not Given (Patient Refused): HYDROcodone-acetaminophen 7.5 mg-325 mg 1 tabs PO once cjh Order Results: Lab Order: Urinalysis; SPEC'M 08/11/16 09:51 Test: APPEARANCE, URINE; Value: CLOUDY; Range: CLEAR; Abnormal: Above high normal; Status: F Test: COLOR, URINE; Value: YELLOW; Range: YELLOW; Status: F Test: PH,URINE; Value: 6.0; Range: 5.0-9.0; Units: UNITS; Status: F Test: SPECIFIC GRAVITY URINE AUTO; Value: 1.020; Range: 1.002-1.035; Status: F Test: PROTEIN, URINE AUTO; Value: 1+; Range: NEGATIVE; Abnormal: Above high normal; Units: mg/dL; Status: F Test: GLUCOSE, URINE (UA) AUTO; Value: NEGATIVE; Range: NEGATIVE; Units: mg/dL; Status: F Test: KETONE, URINE AUTO; Value: NEGATIVE; Range: NEGATIVE; Units: mg/dL; Status: F Test: UROBILINOGEN, URINE AUTO; Value: 0.2; Range: 0.0-2.0; Units: mg/dL; Status: F Test: BILIRUBIN, URINE AUTO; Value: NEGATIVE; Range: NEGATIVE; Status: F Test: NITRITE, URINE AUTO; Value: POSITIVE; Range: NEGATIVE; Status: F Test: LEUKOCYTE ESTERASE, URINE AUTO; Value: 3+; Range: NEGATIVE; Abnormal: Above high normal; Status: F Test: BLOOD, URINE BLOOD; Value: 3+; Range: NEGATIVE; Abnormal: Above high normal; Status: F Test: WBC, URINE AUTO; Value: 137; Range: 0-3; Abnormal: Above high normal; Units: /HPF; Status: F Test: RBC, URINE AUTO; Value: TNTC; Range: 0-3; Abnormal: Above high normal; Units: /HPF; Status: F Test: BACTERIA, URINE AUTO; Value: NEGATIVE; Range: NEGATIVE; Status: F Test: SQUAMOUS EPITHELIAL CELL UR AU; Value: 10; Range: 0-6; Units: /HPF; Status: F Test: TRANSITIONAL EPITHELIAL AUTO; Value: 2; Range: NONE; Units: /HPF; Status: F Test: HYALINE CAST, URINE AUTO; Value: 0; Range: 0-1; Units: /LPF; Status: F Test: AMORPHOUS SEDIMENT; Value: SMALL; Range: NEGATIVE; Abnormal: Above high normal; Status: F Test: CALCIUM OXALATE CRYSTALS; Value: SMALL; Range: NONE; Status: F Lab Order: CBC with Diff; SPEC'M 08/11/16 10:21 Test: WHITE BLOOD COUNT; Value: 3.2; Range: 4.0-10.0; Abnormal: Below low normal; Units: K/mm3; Status: F Test: RED BLOOD COUNT; Value: 3.68; Range: 4.00-5.40; Abnormal: Below low normal; Units: M/mm3; Status: F Test: HEMOGLOBIN; Value: 11.1; Range: 12.0-16.0; Abnormal: Below low normal; Units: g/dl; Status: F Test: HEMATOCRIT; Value: 36.8; Range: 36.0-47.0; Units: %; Status: F Test: MEAN CORPUSCULAR VOLUME; Value: 99.8; Range: 80.0-96.0; Abnormal: Above high normal; Units: fl; Status: F Test: MEAN CORPUSCULAR HEMOGLOBIN; Value: 30.0; Range: 27.0-33.0; Units: pg; Status: F Test: MEAN CORPUSCULAR HGB CONC; Value: 30.1; Range: 32.0-36.5; Abnormal: Below low normal; Units: g/dl; Status: F Test: RED CELL DISTRIBUTION WIDTH; Value: 14.1; Range: 11.5-14.5; Units: %; Status: F Test: PLATELET COUNT, AUTOMATED; Value: 155; Range: 150-450; Units: k/mm3; Status: F Test: NEUTROPHILS %; Value: 50.8; Range: 36.0-66.0; Units: %; Status: F Test: LYMPH %; Value: 39.1; Range: 24.0-44.0; Units: %; Status: F Test: MONO %; Value: 3.4; Range: 0.0-5.0; Units: %; Status: F Test: EOS %; Value: 4.0; Range: 0.0-3.0; Abnormal: Above high normal; Units: %; Status: F Test: BASO %; Value: 0.4; Range: 0.0-1.0; Units: %; Status: F Test: LARGE UNSTAINED CELL %; Value: 2.3; Range: 0.0-4.0; Units: %; Status: F Test: NEUTROPHILS #; Value: 1.7; Range: 1.8-7.7; Abnormal: Below low normal; Units: K/mm3; Status: F Test: LYMPH #; Value: 1.3; Range: 1.5-4.5; Abnormal: Below low normal; Units: K/mm3; Status: F Test: MONO #; Value: 0.1; Range: 0.0-0.8; Units: K/mm3; Status: F Test: EOS #; Value: 0.1; Range: 0.0-0.50; Units: K/mm3; Status: F Test: BASO #; Value: 0.0; Range: 0.0-0.2; Units: K/mm3; Status: F Test: LARGE UNSTAINED CELL #; Value: 0.1; Range: 0.0-0.4; Units: K/mm3; Status: F Lab Order: [facility]; SPEC'M 08/11/16 10:21 Test: GLUCOSE, FASTING; Value: 101; Range: 80-110; Units: MG/DL; Status: F Test: BLOOD UREA NITROGEN; Value: 13; Range: 7-18; Units: MG/DL; Status: F Test: CREATININE FOR GFR; Value: 0.75; Range: 0.55-1.02; Units: MG/DL; Status: F Test: GLOMERULAR FILTRATION RATE; Value: > 60.0; Range: >45; Status: F Test: SODIUM LEVEL; Value: 143; Range: 136-145; Units: MEQ/L; Status: F Test: POTASSIUM SERUM; Value: 4.0; Range: 3.5-5.1; Units: MEQ/L; Status: F Test: CHLORIDE LEVEL; Value: 106; Range: 98-107; Units: MEQ/L; Status: F Test: CARBON DIOXIDE LEVEL; Value: 31; Range: 21-32; Units: MEQ/L; Status: F Test: ANION GAP; Value: 6; Range: 8-16; Abnormal: Below low normal; Units: MEQ/L; Status: F Test: CALCIUM LEVEL; Value: 8.7; Range: 8.8-10.2; Abnormal: Below low normal; Units: MG/DL; Status: F Test Note: ; Units are mL/min/1.73 m2 Chronic Kidney Disease Staging per NKF: Stage I & II GFR >=60 Normal to Mildly Decreased Stage III GFR 30-59 Moderately Decreased Stage IV GFR 15-29 Severely Decreased Stage V GFR <15 Very Little GFR Left ESRD GFR <15 on EMOTIONAL DISABILITIES TEACHER Radiology Order: Chest, 2 View (pa\\E\\lat) Test: Chest, 2 View (pa\\E\\lat) REASON FOR EXAMINATION: Cough; PA and lateral chest 08/11/2016; ; Indication: Cough; ; Comparison: PA and lateral chest 03/25/2016, 03/14/2015; ; Findings: Cardiomediastinal silhouette is normal. Small amount of fibrotic; scarring is identified in the lingula and left lower lobe. There is mild; eventration of the right hemidiaphragm without change.; ; There is generalized osteopenia within the spine; and moderate rotatory; dextroscoliosis with apex at approximately T12-L1.; ; Impression: No acute cardiopulmonary process or interval change; ; ; ; ; Signed by; Lucero Jacobsen MD 08/11/2016 09:21 A; Outcome: 14:13 Discharge ordered by Provider. br1 15:23 Discharge Assessment: Patient awake, alert and oriented x 3. No cognitive and/or cjh functional deficits noted. Patient verbalized understanding of disposition instructions. patient administered narcotics - yes. Pt provided with safe discharge. The following High Risk Discharge criteria are identified: None. Discharged to home via ambulance, [facility]. Condition: good Condition: stable. Discharge instructions given to patient, Instructed on discharge instructions, follow up and referral plans. Demonstrated understanding of patient refuses to sign paper work, states she doesn't want to call for appointment with PCP in morning because she thinks she will have to crawl around all night and be in the morning. Provider aware and heard discussing at length her observed abilities and patient continues to refuse offer of XRay evaluation of right foot. No special radiology studies were completed. Property :Personal belongings accompany Pt. 15:51 Patient left the ED. ar3 Signatures: Dispatcher [employer] EDChester Butterfield RN RN bcj LaFontaine, Jon, HENRIQUE PSA Gab Landin MD MD br1 Gabby, Janis, GRADES 1 6 TUTOR GRADES 1 6 TUTOR ar3 Dukes, Renetta, GRADES 1 6 TUTOR GRADES 1 6 TUTOR ct3 Katelyn MartinRN RN Maria R Blount RN RN [facility] Jasen Conteh, Anita Perez nb2 Corrections: (The following items were deleted from the chart) 15:34 10:00 Diet: Patient given juice. nb2 nb2 MTDD
--- NOTE | 2016-08-11 15:52 | EDDOCDS ---
Physician Documentation [facility] Name: Sole Ramirez Age: 61 yrs Sex: Female : 1955 Arrival Date: 08/11/2016 Time: 08:33 Bed 8 Private MD: Koffi Shea Disposition: 08/11/16 14:13 Discharged to Home/Self Care. Impression: Acute pharyngitis, Hematuria. - Condition is Stable. - Discharge Instructions: Vega Catheter Care, Adult, Pharyngitis. - Medication Reconciliation, Local Pharmacy Hours form. - Follow up: Koffi Shea MD; When: 2 - 3 days; Reason: Recheck today's complaints. - Problem is new. - Symptoms are unchanged. - Notes: You were seen in the ED for sore throat, cough and blood in the urinary catheter. Bloodwork showed no acute findings. Urine tests showed the blood in the urine. Strep test is negative and chest Xray showed no other acute findings. You may return home to follow up with your primary doctor. Please call tomorrow to arrange to be seen. Return to the ED for fever, trouble breathing or swallowing, or any other concerns. Historical: - Allergies: Darvocet-N 100 (Hives); Darvon (itching); Demerol (Vomit); Macrodantin (Vomit); PENICILLINS (Hives); - Home Meds: 1. albuterol sulfate 90 mcg/actuation Inhl HFAA 2 puffs every 4-6 hours 2. Eliquis 5 mg oral tab 1 tab 2 times per day 3. hydrocodone-acetaminophen 7.5-750 mg Oral tab 1 tab every 4 hours as needed for Pain &#13(Last dose: 08/10/2016) 4. Klonopin 0.25 mg Oral tab 1 tab nightly (Last dose: 08/10/2016) 5. Lomotil 2.5-0.025 mg oral tab 2 tabs prn 6. loperamide 2 mg Oral tab as needed 7. meclizine 50 mg Oral tab 1 tab 2 times per day 8. Miralax 17 gram/dose Oral powd once daily 9. Motrin 400 mg Oral tab 1 tab every 4 hours 10. Sudafed 60 mg Oral tab 1 tab twice a day 11. Zyprexa 10 mg Oral tab QHS - PMHx: Anxiety; Asthma; Bipolar disorder; Chronic Back pain; chronic vega catheter; DVT; GERD; spinal tumor; - PSHx: spinal tumor removal; - Social history: Smoking status: Patient states was never smoker of tobacco. No barriers to communication noted, The patient speaks fluent Guamanian, Speaks appropriately for age. - Family history: Not pertinent. - : The pt / caregiver states he / she is on 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[facility] [place] [facility] is obtained from the patient. - Exposure Risk Screening:: None identified. Vital Signs: 08/11 08:40 BP 153 / 71; Pulse 85; Resp 18; Temp 99.0(TE); Pulse Ox 98% on R/A; Weight 86.18 kg / ct3 189.99 lbs (R); Height 5 ft. 3 in. (160.02 cm) (R); 11:30 BP 139 / 70; Pulse 74; Resp 16; Pulse Ox 96% ; Pain 10/10; cjh 08:40 Body Mass Index 33.66 (86.18 kg, 160.02 cm) ct3 MDM: 08:50 Strep Screen, Nursing ordered. br1 08:52 Chest, 2 View (pa\E\lat) Ordered. EDMS 09:19 GATS (NEGATIVE STREP SCREEN) Ordered. EDMS 09:27 HYDROcodone-acetaminophen 7.5 mg-325 mg 1 tabs PO once ordered. br1 09:27 Urinalysis Ordered. EDMS 09:27 CBC with Diff Ordered. EDMS 09:27 BMP Ordered. EDMS 09:27 Urine Culture Ordered. EDMS 10:19 Financial registration complete. mpb 10:20 [facility] Payment Agreement was scanned into [employer] and attached to record. mpb 13:43 Urinalysis Reviewed. br1 13:43 CBC with Diff Reviewed. br1 13:43 BMP Reviewed. br1 13:43 Chest, 2 View (pa\E\lat) Reviewed. br1 14:01 HYDROcodone-acetaminophen 7.5 mg-325 mg 1 tabs PO once ordered. br1 14:41 ED course: Called to bedside to assess patient's right foot as she is now complaining br1 of pain. Patient has no deformity, complains of tenderness to palpation. Is able to bear weight on foot in ED. Offered patient Xray of foot, patient declines and states she wishes DC home. Will proceed with plan for DC home. Conversation witnessed by Maria R Chang RN and Renée Norman RN, nursing magnetic prospecting supervisor.. Administered Medications: 09:40 Drug: HYDROcodone-acetaminophen 1 tabs [hydrocodone 7.5 mg-acetaminophen 325 mg tablet pml (1 tabs)] Route: PO; 11:32 Follow up: Response: Confirmed pt not driving.; No Adverse Reaction; No significant cjh change. 15:26 Not Given (Patient Refused): HYDROcodone-acetaminophen 7.5 mg-325 mg 1 tabs PO once [facility] Signatures: Dispatcher [employer] EDGab Rojas MD MD br1 Janis Pierre, HVAC SHEET METAL INSTALLER HVAC SHEET METAL INSTALLER ar3 Katelyn Martin RN RN pml Jasen Conteh, Reg Reg mpb Maria R Chang RN [facility] The chart was reviewed and I authenticate all verbal orders and agree with the evaluation and treatment provided.Attachments: 10:20 [facility] Payment Agreement [email or web address] MTDD
--- NOTE | 2016-08-13 16:53 | EDDOCDS ---
Physician Documentation [facility] Name: Sole Ramirez Age: 61 yrs Sex: Female : 1955 Arrival Date: 08/11/2016 Time: 08:33 Bed 8 Private MD: Koffi Shea Disposition: 08/11/16 14:13 Discharged to Home/Self Care. Impression: Acute pharyngitis, Hematuria. - Condition is Stable. - Discharge Instructions: Vega Catheter Care, Adult, Pharyngitis. - Medication Reconciliation, Local Pharmacy Hours form. - Follow up: Koffi Shea MD; When: 2 - 3 days; Reason: Recheck today's complaints. - Problem is new. - Symptoms are unchanged. - Notes: You were seen in the ED for sore throat, cough and blood in the urinary catheter. Bloodwork showed no acute findings. Urine tests showed the blood in the urine. Strep test is negative and chest Xray showed no other acute findings. You may return home to follow up with your primary doctor. Please call tomorrow to arrange to be seen. Return to the ED for fever, trouble breathing or swallowing, or any other concerns. Historical: - Allergies: Darvocet-N 100 (Hives); Darvon (itching); Demerol (Vomit); Macrodantin (Vomit); PENICILLINS (Hives); - Home Meds: 1. albuterol sulfate 90 mcg/actuation Inhl HFAA 2 puffs every 4-6 hours 2. Eliquis 5 mg oral tab 1 tab 2 times per day 3. hydrocodone-acetaminophen 7.5-750 mg Oral tab 1 tab every 4 hours as needed for Pain &#13(Last dose: 08/10/2016) 4. Klonopin 0.25 mg Oral tab 1 tab nightly (Last dose: 08/10/2016) 5. Lomotil 2.5-0.025 mg oral tab 2 tabs prn 6. loperamide 2 mg Oral tab as needed 7. meclizine 50 mg Oral tab 1 tab 2 times per day 8. Miralax 17 gram/dose Oral powd once daily 9. Motrin 400 mg Oral tab 1 tab every 4 hours 10. Sudafed 60 mg Oral tab 1 tab twice a day 11. Zyprexa 10 mg Oral tab QHS - PMHx: Anxiety; Asthma; Bipolar disorder; Chronic Back pain; chronic vega catheter; DVT; GERD; spinal tumor; - PSHx: spinal tumor removal; - Social history: Smoking status: Patient states was never smoker of tobacco. No barriers to communication noted, The patient speaks fluent [place]guill[place], Speaks appropriately for age. - Family history: Not pertinent. - : The pt / caregiver states he / she is on a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: [facility] is obtained from the patient. - Exposure Risk Screening:: None identified. Vital Signs: 08/11 08:40 BP 153 / 71; Pulse 85; Resp 18; Temp 99.0(TE); Pulse Ox 98% on R/A; Weight 86.18 kg / ct3 189.99 lbs (R); Height 5 ft. 3 in. (160.02 cm) (R); 11:30 BP 139 / 70; Pulse 74; Resp 16; Pulse Ox 96% ; Pain 10/10; cjh 08:40 Body Mass Index 33.66 (86.18 kg, 160.02 cm) ct3 MDM: 08:50 Strep Screen, Nursing ordered. br1 08:52 Chest, 2 View (pa\E\lat) Ordered. EDMS 09:19 GATS (NEGATIVE STREP SCREEN) Ordered. EDMS 09:27 HYDROcodone-acetaminophen 7.5 mg-325 mg 1 tabs PO once ordered. br1 09:27 Urinalysis Ordered. EDMS 09:27 CBC with Diff Ordered. EDMS 09:27 BMP Ordered. EDMS 09:27 Urine Culture Ordered. EDMS 10:19 Financial registration complete. mpb 10:20 [facility] Payment Agreement was scanned into [employer] and attached to record. mpb 13:43 Urinalysis Reviewed. br1 13:43 CBC with Diff Reviewed. br1 13:43 BMP Reviewed. br1 13:43 Chest, 2 View (pa\E\lat) Reviewed. br1 14:01 HYDROcodone-acetaminophen 7.5 mg-325 mg 1 tabs PO once ordered. br1 14:41 ED course: Called to bedside to assess patient's right foot as she is now complaining br1 of pain. Patient has no deformity, complains of tenderness to palpation. Is able to bear weight on foot in ED. Offered patient Xray of foot, patient declines and states she wishes DC home. Will proceed with plan for DC home. Conversation witnessed by Maria R Chang RN and Renée Norman RN, nursing field pipe lines supervisor.. 08/12 11:21 T-Sheet-- Draft Copy was scanned into [employer] and attached to record. 11:21 Radiology Report was scanned into [employer] and attached to record. gb 08/13 12:15 Lab / Xray Callback was scanned into [employer] and attached to record. [email or web address] Administered Medications: 08/11 09:40 Drug: HYDROcodone-acetaminophen 1 tabs [hydrocodone 7.5 mg-acetaminophen 325 mg tablet pml (1 tabs)] Route: PO; 11:32 Follow up: Response: Confirmed pt not driving.; No Adverse Reaction; No significant cj change. 15:26 Not Given (Patient Refused): HYDROcodone-acetaminophen 7.5 mg-325 mg 1 tabs PO once cj Signatures: Dispatcher [employer] EDMS Deonna Sy, Reg Reg gb Gab Longoria MD MD br1 Janis Pierre, STATION AGENT STATION AGENT ar3 Rajiv Doan jml1 Katelyn MartinRN RN pml Jasen Conteh, Reg Reg mpMaria R Fuentes RN [facility] The chart was reviewed and I authenticate all verbal orders and agree with the evaluation and treatment provided.Attachments: 10:20 [facility] Payment Agreement b 08/12 11:21 T-Sheet-- Draft Copy gb Chart Complete MTDD
--- NOTE | 2016-08-13 16:53 | EDDOCDS ---
Physician Documentation [facility] Name: Sole Ramirez Age: 61 yrs Sex: Female : 1955 Arrival Date: 08/11/2016 Time: 08:33 Bed 8 Private MD: Koffi Shea Disposition: 08/11/16 14:13 Discharged to Home/Self Care. Impression: Acute pharyngitis, Hematuria. - Condition is Stable. - Discharge Instructions: Vega Catheter Care, Adult, Pharyngitis. - Medication Reconciliation, Local Pharmacy Hours form. - Follow up: Koffi Shea MD; When: 2 - 3 days; Reason: Recheck today's complaints. - Problem is new. - Symptoms are unchanged. - Notes: You were seen in the ED for sore throat, cough and blood in the urinary catheter. Bloodwork showed no acute findings. Urine tests showed the blood in the urine. Strep test is negative and chest Xray showed no other acute findings. You may return home to follow up with your primary doctor. Please call tomorrow to arrange to be seen. Return to the ED for fever, trouble breathing or swallowing, or any other concerns. Historical: - Allergies: Darvocet-N 100 (Hives); Darvon (itching); Demerol (Vomit); Macrodantin (Vomit); PENICILLINS (Hives); - Home Meds: 1. albuterol sulfate 90 mcg/actuation Inhl HFAA 2 puffs every 4-6 hours 2. Eliquis 5 mg oral tab 1 tab 2 times per day 3. hydrocodone-acetaminophen 7.5-750 mg Oral tab 1 tab every 4 hours as needed for Pain &#13(Last dose: 08/10/2016) 4. Klonopin 0.25 mg Oral tab 1 tab nightly (Last dose: 08/10/2016) 5. Lomotil 2.5-0.025 mg oral tab 2 tabs prn 6. loperamide 2 mg Oral tab as needed 7. meclizine 50 mg Oral tab 1 tab 2 times per day 8. Miralax 17 gram/dose Oral powd once daily 9. Motrin 400 mg Oral tab 1 tab every 4 hours 10. Sudafed 60 mg Oral tab 1 tab twice a day 11. Zyprexa 10 mg Oral tab QHS - PMHx: Anxiety; Asthma; Bipolar disorder; Chronic Back pain; chronic vega catheter; DVT; GERD; spinal tumor; - PSHx: spinal tumor removal; - Social history: Smoking status: Patient states was never smoker of tobacco. No barriers to communication noted, The patient speaks fluent Brazilian, Speaks appropriately for age. - Family history: Not pertinent. - : The pt / caregiver states he / she is on a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: [facility] is obtained from the patient. - Exposure Risk Screening:: None identified. Vital Signs: 08/11 08:40 BP 153 / 71; Pulse 85; Resp 18; Temp 99.0(TE); Pulse Ox 98% on R/A; Weight 86.18 kg / ct3 189.99 lbs (R); Height 5 ft. 3 in. (160.02 cm) (R); 11:30 BP 139 / 70; Pulse 74; Resp 16; Pulse Ox 96% ; Pain 10/10; cjh 08:40 Body Mass Index 33.66 (86.18 kg, 160.02 cm) ct3 MDM: 08:50 Strep Screen, Nursing ordered. br1 08:52 Chest, 2 View (pa\E\lat) Ordered. EDMS 09:19 GATS (NEGATIVE STREP SCREEN) Ordered. EDMS 09:27 HYDROcodone-acetaminophen 7.5 mg-325 mg 1 tabs PO once ordered. br1 09:27 Urinalysis Ordered. EDMS 09:27 CBC with Diff Ordered. EDMS 09:27 BMP Ordered. EDMS 09:27 Urine Culture Ordered. EDMS 10:19 Financial registration complete. mpb 10:20 [facility] Payment Agreement was scanned into [employer] and attached to record. mpb 13:43 Urinalysis Reviewed. br1 13:43 CBC with Diff Reviewed. br1 13:43 BMP Reviewed. br1 13:43 Chest, 2 View (pa\E\lat) Reviewed. br1 14:01 HYDROcodone-acetaminophen 7.5 mg-325 mg 1 tabs PO once ordered. br1 14:41 ED course: Called to bedside to assess patient's right foot as she is now complaining br1 of pain. Patient has no deformity, complains of tenderness to palpation. Is able to bear weight on foot in ED. Offered patient Xray of foot, patient declines and states she wishes DC home. Will proceed with plan for DC home. Conversation witnessed by Maria R Chang RN and Renée Norman RN, nursing solar panel installation supervisor.. 08/12 11:21 T-Sheet-- Draft Copy was scanned into [employer] and attached to record. 11:21 Radiology Report was scanned into [employer] and attached to record. gb 08/13 12:15 Lab / Xray Callback was scanned into [employer] and attached to record. [email or web address] Administered Medications: 08/11 09:40 Drug: HYDROcodone-acetaminophen 1 tabs [hydrocodone 7.5 mg-acetaminophen 325 mg tablet pml (1 tabs)] Route: PO; 11:32 Follow up: Response: Confirmed pt not driving.; No Adverse Reaction; No significant cj change. 15:26 Not Given (Patient Refused): HYDROcodone-acetaminophen 7.5 mg-325 mg 1 tabs PO once cj Signatures: Dispatcher [employer] EDMS Deonna Sy, Reg Reg gb Gab Longoria MD MD br1 Janis Pierre, SENIOR QUALITY ASSURANCE ENGINEER SENIOR QUALITY ASSURANCE ENGINEER ar3 Rajiv Doan jml1 Katelyn MartinRN RN pml Jasen Conteh, Reg Reg mpMaria R Fuentes RN [facility] The chart was reviewed and I authenticate all verbal orders and agree with the evaluation and treatment provided.Attachments: 10:20 [facility] Payment Agreement b 08/12 11:21 T-Sheet-- Draft Copy gb Chart Complete MTDD
--- NOTE | 2016-08-13 16:53 | EDDOCDS ---
Nurse's Notes [facility] Name: Sole Ramirez Age: 61 yrs Sex: Female : 1955 Arrival Date: 08/11/2016 Time: 08:33 Bed 8 Private MD: Koffi Shea Diagnosis: Acute pharyngitis;Hematuria Presentation: 08/11 08:35 Presenting complaint: EMS states: cough, pain in buttocks and blood in urinary pml catheter. Adult Sepsis Screening: The patient does not have new or worsening altered mentation. Patient's respiratory rate is less than 22. Systolic blood pressure is greater than 100. Patient has a qSOFA score of 0- Negative Sepsis Screen. Suicide/Homicide risk assessment- the patient denies having any suicidal and/or homicidal ideations and does not present with any other emotional, behavioral or mental health complaints. Status: Patient is not a director service or dependent. Transition of care: patient was not received from another setting of care. 08:35 Acuity: KIM Level 4 pml 08:35 Method Of Arrival: Ambulance pml Triage Assessment: 08:39 General: Appears in no apparent distress, Behavior is appropriate for age, cooperative. pml Pain: Location: sore throat Pain currently is 10 out of 10 on a pain scale. HIV screening NA for this visit Offered previously. The patient is triaged at the bedside. See Assessment in Nurses Notes section of ED record. Neurological: Level of Consciousness is awake, alert, Oriented to person, place, time. EENT: Reports pain when swallowing. Cardiovascular: Capillary refill < 3 seconds. Respiratory: Airway is patent Respiratory effort is even, unlabored, Respiratory pattern is regular, symmetrical. GI: Abdomen is non- distended. : Reports hematuria noted in bag last night - urine dark erick with sediment. : Vega in place to gravity drainage. Derm: Skin is pink, warm & dry. Historical: - Allergies: Darvocet-N 100 (Hives); Darvon (itching); Demerol (Vomit); Macrodantin (Vomit); PENICILLINS (Hives); - Home Meds: 1. albuterol sulfate 90 mcg/actuation Inhl HFAA 2 puffs every 4-6 hours 2. Eliquis 5 mg oral tab 1 tab 2 times per day 3. hydrocodone-acetaminophen 7.5-750 mg Oral tab 1 tab every 4 hours as needed for Pain &#13(Last dose: 08/10/2016) 4. Klonopin 0.25 mg Oral tab 1 tab nightly (Last dose: 08/10/2016) 5. Lomotil 2.5-0.025 mg oral tab 2 tabs prn 6. loperamide 2 mg Oral tab as needed 7. meclizine 50 mg Oral tab 1 tab 2 times per day 8. Miralax 17 gram/dose Oral powd once daily 9. Motrin 400 mg Oral tab 1 tab every 4 hours 10. Sudafed 60 mg Oral tab 1 tab twice a day 11. Zyprexa 10 mg Oral tab QHS - PMHx: Anxiety; Asthma; Bipolar disorder; Chronic Back pain; chronic evga catheter; DVT; GERD; spinal tumor; - PSHx: spinal tumor removal; - Social history: Smoking status: Patient states was never smoker of tobacco. No barriers to communication noted, The patient speaks fluent Ghanaian, Speaks appropriately for age. - Family history: Not pertinent. - : The pt / caregiver states he / she is on a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: EliBlowtorch Home medication list is obtained from the patient. - Exposure Risk Screening:: None identified. Screenin:53 Screening information is obtained from the patient. Fall risk: No risks identified. pml Assistance ADL's: requires no assistance with activities of daily living. Abuse/DV Screen: The patient / caregiver reports he/she is: not in a situation that causes fear, pain or injury. Nutritional screening: No deficits noted. Advance Directives: Currently, there is no health care proxy. home support is adequate. Assessment: 08:41 General: see triage note. pml 09:53 General: Appears in no apparent distress, Behavior is appropriate for age, cooperative. pml Pain: Location: sore throat and buttocks. Neurological: Level of Consciousness is awake, alert, Oriented to person, place, time. Cardiovascular: Capillary refill < 3 seconds. Respiratory: Airway is patent Respiratory effort is even, unlabored. GI: Abdomen is non- distended. Derm: Skin is pink, warm & dry. 11:30 General: Appears in no apparent distress, comfortable, Behavior is cooperative, first [facility] contact with patient, report received from GEORGE Zepeda. Patient reports back pain 10/10 unrelieved from medications and ongoing pain in upper chest when coughing. Respiratory: Airway is patent Respiratory effort is even, unlabored, Breath sounds are clear bilaterally. 12:30 General: patient offered turkey sandwich/boxed lunch per request, patient refuses [facility] stating "I don't like it". 13:30 General: patient has declined to eat meal tray placed at bedside, states "I don't want [facility] that, I want something else". 14:40 General: patient has wheeled herself into hallway states no one is helping me and my [facility] foot hurts and I can't get my boot on. Nursing booking supervisor aware and obtained soup per patient request. Dr. Longoria in room to evaluate, offered patient Xray of foot, patient refuses. . 14:55 General: Patient refuses pain meds after multiple attempts to offer, prolonged [facility] discussion and many explanations patient states "I'll just take meds when I get home". 15:00 General: approached room and found patient walking around in room, observed bearing [facility] weight on both feet, patient returns to wheelchair when approached by this signwriter. 15:16 General: patient stating she won't sign discharge papers. [facility] Social Work Consult: 15:04 Social Work Note: Patient transportation via [employer] stretcher arranged with [employer], as the Service was unable to secure any transport via ambulette at this time. Vital Signs: 08:40 BP 153 / 71; Pulse 85; Resp 18; Temp 99.0(TE); Pulse Ox 98% on R/A; Weight 86.18 kg ct3 (R); Height 5 ft. 3 in. (160.02 cm) (R); 11:30 BP 139 / 70; Pulse 74; Resp 16; Pulse Ox 96% ; Pain 10/10; cjh 08:40 Body Mass Index 33.66 (86.18 kg, 160.02 cm) ct3 Vitals: 08:41 Log In Time N/A - ambulance arrival. ct3 09:19 Strep Screen is obtained and tested: Negative, a GATSNEG culture is ordered in [facility] and sent. ED Course: 08:34 Patient visited by Janis Pierre PCA. ar3 08:34 Patient moved to Waiting ar3 08:35 Katelyn MartinGEORGE is Primary Nurse. ar3 08:35 Koffi Shea MD is Private Physician. ar3 08:35 Patient moved to 8 ar3 08:36 Triage Initiated pml 08:41 Patient visited by Katelyn Martin RN. pml 08:41 Patient visited by Renetta Dukes PCA. ct3 08:41 Patient has correct armband on for positive identification. Placed in gown. Bed in low ct3 position. Call light in reach. Side rails up X2. Cardiac monitoring not applicable on this patient. 09:01 Gab Longoria MD is Attending Physician. br1 09:26 Patient visited by Gab Longoria MD. br1 09:46 Chest, 2 View (pa\\E\\lat) Returned. EDMS 09:53 Patient visited by Katelyn Martin RN. pml 09:53 The patient / caregiver is instructed regarding the plan of care and ED course. pml 09:53 Labs drawn. (by ED staff). Sent per order to lab. pml 09:53 No IV's were initiated during this patient's visit. No procedures done that require pml assistance. 09:54 Patient visited by Katelyn Martin RN. pml 10:00 Diet: Patient given snack. Patient given juice. nb2 10:20 [facility] [place] Agreement was scanned into [facility]LL[facility] and attached to record. mpb 11:01 Patient visited by Renetta Dukes PCA. ct3 11:32 Patient visited by Maria R Chang RN. cjh 11:45 Diet: Patient given juice. nb2 12:30 Patient visited by Renetta Dukes PCA. ct3 13:38 Patient visited by Renetta Dukes PCA. ct3 14:08 Patient visited by Gab Longoria MD. br1 14:10 Koffi Shea MD is Referral Physician. br1 15:52 Patient visited by Chester Tobin RN. bcj 08/12 11:21 T-Sheet-- Draft Copy was scanned into HOLLR and attached to record. gb 11:21 Radiology Report was scanned into HOLLR and attached to record. gb 08/13 12:15 Lab / Xray Callback was scanned into HOLLR and attached to record. [email or web address] Administered Medications: 08/11 09:40 Drug: HYDROcodone-acetaminophen 1 tabs [hydrocodone 7.5 mg-acetaminophen 325 mg tablet pml (1 tabs)] Route: PO; 11:32 Follow up: Response: Confirmed pt not driving.; No Adverse Reaction; No significant cjh change. 15:26 Not Given (Patient Refused): HYDROcodone-acetaminophen 7.5 mg-325 mg 1 tabs PO once [facility] Order Results: Lab Order: GATS (NEGATIVE STREP SCREEN); SPEC'M 08/11/16 09:14 Test: GATS CULTURE (NEG STREP SCR); Value: GATS RESULT NEGATIVE FOR STREP PYOGENES (GROUP A); Status: F Lab Order: Urinalysis; SPEC'M 08/11/16 09:51 Test: APPEARANCE, URINE; Value: CLOUDY; Range: CLEAR; Abnormal: Above high normal; Status: F Test: COLOR, URINE; Value: YELLOW; Range: YELLOW; Status: F Test: PH,URINE; Value: 6.0; Range: 5.0-9.0; Units: UNITS; Status: F Test: SPECIFIC GRAVITY URINE AUTO; Value: 1.020; Range: 1.002-1.035; Status: F Test: PROTEIN, URINE AUTO; Value: 1+; Range: NEGATIVE; Abnormal: Above high normal; Units: mg/dL; Status: F Test: GLUCOSE, URINE (UA) AUTO; Value: NEGATIVE; Range: NEGATIVE; Units: mg/dL; Status: F Test: KETONE, URINE AUTO; Value: NEGATIVE; Range: NEGATIVE; Units: mg/dL; Status: F Test: UROBILINOGEN, URINE AUTO; Value: 0.2; Range: 0.0-2.0; Units: mg/dL; Status: F Test: BILIRUBIN, URINE AUTO; Value: NEGATIVE; Range: NEGATIVE; Status: F Test: NITRITE, URINE AUTO; Value: POSITIVE; Range: NEGATIVE; Status: F Test: LEUKOCYTE ESTERASE, URINE AUTO; Value: 3+; Range: NEGATIVE; Abnormal: Above high normal; Status: F Test: BLOOD, URINE BLOOD; Value: 3+; Range: NEGATIVE; Abnormal: Above high normal; Status: F Test: WBC, URINE AUTO; Value: 137; Range: 0-3; Abnormal: Above high normal; Units: /HPF; Status: F Test: RBC, URINE AUTO; Value: TNTC; Range: 0-3; Abnormal: Above high normal; Units: /HPF; Status: F Test: BACTERIA, URINE AUTO; Value: NEGATIVE; Range: NEGATIVE; Status: F Test: SQUAMOUS EPITHELIAL CELL UR AU; Value: 10; Range: 0-6; Units: /HPF; Status: F Test: TRANSITIONAL EPITHELIAL AUTO; Value: 2; Range: NONE; Units: /HPF; Status: F Test: HYALINE CAST, URINE AUTO; Value: 0; Range: 0-1; Units: /LPF; Status: F Test: AMORPHOUS SEDIMENT; Value: SMALL; Range: NEGATIVE; Abnormal: Above high normal; Status: F Test: CALCIUM OXALATE CRYSTALS; Value: SMALL; Range: NONE; Status: F Lab Order: Urine Culture; SPEC'M 08/11/16 09:51 Test: URINE CULTURE; Value: <EXTERNAL COMMENT eCWMed> FULL REPORT IN LAB NOTES (eCW and Medent).; Status: F Test: URINE CULTURE; Value: ORGANISM 1: KLEBSIELLA PNEUMONIAE; Status: F Test: URINE CULTURE; Value: KLEBSIELLA PNEUMONIAE; Status: F Test: URINE CULTURE; Value: COLONY COUNT CFU/ml >100,000; Status: F Test: URINE CULTURE; Value: GRAM NEG SENSI - VITEK 80; Status: F Test: URINE CULTURE; Value: Method: VIT2; Status: F Test: URINE CULTURE; Value: EXTD BRD SPCTRM BETA LACTAMASE -; Status: F Test: URINE CULTURE; Value: TRIMETHOPRIM/SULFAMETHOXAZOLE <=20 S; Status: F Test: URINE CULTURE; Value: AMPICILLIN >=32 R; Status: F Test: URINE CULTURE; Value: GENTAMICIN <=1 S; Status: F Test: URINE CULTURE; Value: NITROFURANTOIN 256 R; Status: F Test: URINE CULTURE; Value: CEFAZOLIN <=4 S; Status: F Test: URINE CULTURE; Value: LEVOFLOXACIN 1 S; Status: F Test: URINE CULTURE; Value: TOBRAMYCIN <=1 S; Status: F Test: URINE CULTURE; Value: CEFTRIAXONE <=1 S; Status: F Test: URINE CULTURE; Value: CEFTAZIDIME <=1 S; Status: F Test: URINE CULTURE; Value: AMPICILLIN/SULBACTAM 16 I; Status: F Test: URINE CULTURE; Value: PIPERACILLIN/TAZOBACTAM 8 S; Status: F Test: URINE CULTURE; Value: AZTREONAM <=1 S; Status: F Test: URINE CULTURE; Value: ERTAPENEM <=0.5 S; Status: F Test: URINE CULTURE; Value: MEROPENEM <=0.25 S; Status: F Test: URINE CULTURE; Value: CEFEPIME <=1 S; Status: F Lab Order: CBC with Diff; SPEC'M 08/11/16 10:21 Test: WHITE BLOOD COUNT; Value: 3.2; Range: 4.0-10.0; Abnormal: Below low normal; Units: K/mm3; Status: F Test: RED BLOOD COUNT; Value: 3.68; Range: 4.00-5.40; Abnormal: Below low normal; Units: M/mm3; Status: F Test: HEMOGLOBIN; Value: 11.1; Range: 12.0-16.0; Abnormal: Below low normal; Units: g/dl; Status: F Test: HEMATOCRIT; Value: 36.8; Range: 36.0-47.0; Units: %; Status: F Test: MEAN CORPUSCULAR VOLUME; Value: 99.8; Range: 80.0-96.0; Abnormal: Above high normal; Units: fl; Status: F Test: MEAN CORPUSCULAR HEMOGLOBIN; Value: 30.0; Range: 27.0-33.0; Units: pg; Status: F Test: MEAN CORPUSCULAR HGB CONC; Value: 30.1; Range: 32.0-36.5; Abnormal: Below low normal; Units: g/dl; Status: F Test: RED CELL DISTRIBUTION WIDTH; Value: 14.1; Range: 11.5-14.5; Units: %; Status: F Test: PLATELET COUNT, AUTOMATED; Value: 155; Range: 150-450; Units: k/mm3; Status: F Test: NEUTROPHILS %; Value: 50.8; Range: 36.0-66.0; Units: %; Status: F Test: LYMPH %; Value: 39.1; Range: 24.0-44.0; Units: %; Status: F Test: MONO %; Value: 3.4; Range: 0.0-5.0; Units: %; Status: F Test: EOS %; Value: 4.0; Range: 0.0-3.0; Abnormal: Above high normal; Units: %; Status: F Test: BASO %; Value: 0.4; Range: 0.0-1.0; Units: %; Status: F Test: LARGE UNSTAINED CELL %; Value: 2.3; Range: 0.0-4.0; Units: %; Status: F Test: NEUTROPHILS #; Value: 1.7; Range: 1.8-7.7; Abnormal: Below low normal; Units: K/mm3; Status: F Test: LYMPH #; Value: 1.3; Range: 1.5-4.5; Abnormal: Below low normal; Units: K/mm3; Status: F Test: MONO #; Value: 0.1; Range: 0.0-0.8; Units: K/mm3; Status: F Test: EOS #; Value: 0.1; Range: 0.0-0.50; Units: K/mm3; Status: F Test: BASO #; Value: 0.0; Range: 0.0-0.2; Units: K/mm3; Status: F Test: LARGE UNSTAINED CELL #; Value: 0.1; Range: 0.0-0.4; Units: K/mm3; Status: F Lab Order: [facility]; SPEC'M 08/11/16 10:21 Test: GLUCOSE, FASTING; Value: 101; Range: 80-110; Units: MG/DL; Status: F Test: BLOOD UREA NITROGEN; Value: 13; Range: 7-18; Units: MG/DL; Status: F Test: CREATININE FOR GFR; Value: 0.75; Range: 0.55-1.02; Units: MG/DL; Status: F Test: GLOMERULAR FILTRATION RATE; Value: > 60.0; Range: >45; Status: F Test: SODIUM LEVEL; Value: 143; Range: 136-145; Units: MEQ/L; Status: F Test: POTASSIUM SERUM; Value: 4.0; Range: 3.5-5.1; Units: MEQ/L; Status: F Test: CHLORIDE LEVEL; Value: 106; Range: 98-107; Units: MEQ/L; Status: F Test: CARBON DIOXIDE LEVEL; Value: 31; Range: 21-32; Units: MEQ/L; Status: F Test: ANION GAP; Value: 6; Range: 8-16; Abnormal: Below low normal; Units: MEQ/L; Status: F Test: CALCIUM LEVEL; Value: 8.7; Range: 8.8-10.2; Abnormal: Below low normal; Units: MG/DL; Status: F Test Note: ; Units are mL/min/1.73 m2 Chronic Kidney Disease Staging per NKF: Stage I & II GFR >=60 Normal to Mildly Decreased Stage III GFR 30-59 Moderately Decreased Stage IV GFR 15-29 Severely Decreased Stage V GFR <15 Very Little GFR Left ESRD GFR <15 on [facility]SM[facility] APPRENTICE Radiology Order: Chest, 2 View (pa\\E\\lat) Test: Chest, 2 View (pa\\E\\lat) REASON FOR EXAMINATION: Cough; PA and lateral chest 08/11/2016; ; Indication: Cough; ; Comparison: PA and lateral chest 03/25/2016, 03/14/2015; ; Findings: Cardiomediastinal silhouette is normal. Small amount of fibrotic; scarring is identified in the lingula and left lower lobe. There is mild; eventration of the right hemidiaphragm without change.; ; There is generalized osteopenia within the spine; and moderate rotatory; dextroscoliosis with apex at approximately T12-L1.; ; Impression: No acute cardiopulmonary process or interval change; ; ; ; ; Signed by; Lucero Jacobsen MD 08/11/2016 09:21 A; Outcome: 14:13 Discharge ordered by Provider. br1 15:23 Discharge Assessment: Patient awake, alert and oriented x 3. No cognitive and/or cjh functional deficits noted. Patient verbalized understanding of disposition instructions. patient administered narcotics - yes. Pt provided with safe discharge. The following High Risk Discharge criteria are identified: None. Discharged to home via ambulance, [facility]. Condition: good Condition: stable. Discharge instructions given to patient, Instructed on discharge instructions, follow up and referral plans. Demonstrated understanding of patient refuses to sign paper work, states she doesn't want to call for appointment with PCP in morning because she thinks she will have to crawl around all night and be in the morning. Provider aware and heard discussing at length her observed abilities and patient continues to refuse offer of XRay evaluation of right foot. No special radiology studies were completed. Property :Personal belongings accompany Pt. 15:51 Patient left the ED. ar3 08/13 11:39 Urine culture report reviewed with Dr. Villalta and report to be faxed to PCP.:. naheed Signatures: Dispatcher [employer] Christy Davila RN RN Chester Proctor RN RN bcJayson Lawler, PSA PSA jl Deonna Sy, Reg Reg gb Gab Longoria MD MD br1 Janis Pierre, STREET AND BUILDING DECORATOR STREET AND BUILDING DECORATOR ar3 Renetta Dukes, STREET AND BUILDING DECORATOR STREET AND BUILDING DECORATOR ct3 Rajiv Doan jml1 Katelyn MartinRN RN Maria R BlountRN RN [facility] Jasen Conteh, Reg Reg mpAnita Awad nb2 Corrections: (The following items were deleted from the chart) 08/11 15:34 10:00 Diet: Patient given juice. nb2 nb2 Chart Complete MTDD
== END 2016-08-11 15:51 | disposition home or self-care (01) ==
LOC: M ED 08:33
DX: J02.9 Acute pharyngitis, unspecified (principal); R31.9 Hematuria, unspecified; F31.9 Bipolar disorder, unspecified; J45.909 Unspecified asthma, uncomplicated; G89.29 Other chronic pain; M54.9 Dorsalgia, unspecified; K21.9 Gastro-esophageal reflux disease without esophagitis; Z86.718 Personal history of other venous thrombosis and embolism; Z79.01 Long term (current) use of a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; Z92.240 Personal history of inhaled steroid therapy; Z79.891 Long term (current) use of opiate analgesic; Z79.899 Other long term (current) drug therapy; Z88.0 Allergy status to penicillin; Z88.5 Allergy status to narcotic agent; Z88.8 Allergy status to other drugs, medicaments and biological substances

== ENCOUNTER 2016-08-27 09:27 | Emergency (ER) | payer MEDICARE, MEDICAID ==
[2016-08-27] MEDS ORDERED: ANEXSIA, NORCO 7.5MG/325MG TABLET(HYDROCODONE/APAP) As Ordered ONE (09:59)
--- NOTE | 2016-08-27 12:20 | EDDOCDS ---
Nurse's Notes [facility] Name: Sole Ramirez Age: 61 yrs Sex: Female : 1955 Arrival Date: 08/27/2016 Time: 09:27 Bed 17 Private MD: Koffi Shea Diagnosis: Acute frontal sinusitis;Acute upper respiratory infection, unspecified;Cystitis-chronic Presentation: 08/27 09:31 Presenting complaint: EMS states: Sore throat headache and Vega catheter irritation. mlb1 Risk factors: Stridor is not present. Drooling is not present. Shortness of breath is not present. Cellulitis is not present. Adult Sepsis Screening: The patient does not have new or worsening altered mentation. Patient's respiratory rate is less than 22. Systolic blood pressure is greater than 100. Patient has a qSOFA score of 0- Negative Sepsis Screen. Suicide/Homicide risk assessment- the patient denies having any suicidal and/or homicidal ideations and does not present with any other emotional, behavioral or mental health complaints. Status: Patient is not a guest service agent or dependent. Transition of care: patient was not received from another setting of care. 09:31 Acuity: KIM Level 4 mlb1 09:31 Method Of Arrival: Ambulance mlb1 Triage Assessment: 09:34 General: Appears in no apparent distress, comfortable, Behavior is appropriate for age, mlb1 cooperative. Pain: Location: head, back, throat Pain currently is 10 out of 10 on a pain scale. HIV screening NA for this visit Offered previously. The patient is triaged at the bedside. See Assessment in Nurses Notes section of ED record. EENT: Throat is clear. Respiratory: No deficits noted. Historical: - Allergies: Darvocet-N 100 (Hives); Darvon (itching); Demerol (Vomit); Macrodantin (Vomit); PENICILLINS (Hives); - Home Meds: 1. albuterol sulfate 90 mcg/actuation Inhl HFAA 2 puffs every 4-6 hours 2. Eliquis 5 mg oral tab 1 tab 2 times per day 3. hydrocodone-acetaminophen 7.5-750 mg Oral tab 1 tab every 4 hours as needed for Pain 4. Klonopin 0.25 mg Oral tab 1 tab nightly 5. Lamictal 25 mg Oral tab 2 times per day 6. Lomotil 2.5-0.025 mg oral tab 2 tabs prn 7. loperamide 2 mg Oral tab as needed 8. meclizine 50 mg Oral tab 1 tab 2 times per day 9. Miralax 17 gram/dose Oral powd once daily 10. Motrin 400 mg Oral tab 1 tab every 4 hours 11. Sudafed 60 mg Oral tab 1 tab twice a day 12. Zyprexa 10 mg Oral tab QHS - PMHx: Anxiety; Asthma; Bipolar disorder; Chronic Back pain; chronic vega catheter; DVT; GERD; spinal tumor; - PSHx: spinal tumor removal; - Social history: Smoking status: Patient states was never smoker of tobacco. No barriers to communication noted, The patient speaks fluent Portuguese, Speaks appropriately for age. - Family history: Not pertinent. - : The pt / caregiver states he / she is on a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: [facility] Home medication list is obtained from the patient. - Exposure Risk Screening:: None identified. Screenin:37 Screening information is obtained from the patient. Fall risk: No risks identified. mlb1 Assistance ADL's: requires no assistance with activities of daily living. Abuse/DV Screen: The patient / caregiver reports he/she is: not in a situation that causes fear, pain or injury. Nutritional screening: No deficits noted. Advance Directives: Currently, there is no health care proxy. home support is adequate. Assessment: 09:35 General: Appears in no apparent distress, comfortable, Behavior is appropriate for age, mlb1 cooperative. Pain: Location: head, back, throat Pain currently is 10 out of 10 on a pain scale. Neurological: Level of Consciousness is awake, alert, Oriented to person, place, time. EENT: Throat is clear. Respiratory: Airway is patent Respiratory effort is even, unlabored, Breath sounds are clear bilaterally. : Vega in place to gravity drainage. Derm: No deficits noted. 11:34 General: Appears in no apparent distress, comfortable, Behavior is inappropriate for ttb age, uncooperative. Neurological: Level of Consciousness is awake, alert. Respiratory: Airway is patent Respiratory effort is even, unlabored, Respiratory pattern is regular, symmetrical. GI: other pt tolerated large meal prior to DC. 12:00 General: pt given extra meal and soup per request : she states she has now missed her ttb [id number] delivery.. 12:17 General: pharmacy contacted regarding pt concerns for hard copy of scripts. No hard ttb copy needed for home delivery per [employer]. 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 . Vital Signs: 09:35 BP 158 / 90; Pulse 87; Resp 18; Temp 97.2(O); Pulse Ox 98% on R/A; Weight 68.04 kg (R); ct3 Height 4 ft. 11 in. (149.86 cm) (R); Pain 10/10; 11:47 BP 148 / 95; Pulse 101; Resp 19; Temp 99.5(T); Pulse Ox 98% on R/A; lr2 09:35 Body Mass Index 30.30 (68.04 kg, 149.86 cm) ct3 Vitals: 09:35 Log In Time N/A - ambulance arrival. ct3 10:01 Strep Screen is obtained and tested: Negative, a GATSNEG culture is ordered in [place] [address] and sent. ED Course: 09:28 Patient visited by Madalyn Mancuso, Content Creation Manager. lbd 09:28 Patient moved to Waiting lbd 09:29 Koffi Shea MD is Private Physician. lbd 09:29 So Gonzales,GEORGE is Primary Nurse. lbd 09:29 Patient moved to 17 lbd 09:30 Patient visited by Jasen Rivera, GEORGE. mlb1 09:31 Patient visited by Jasen Rivera, RN. mlb1 09:32 Triage Initiated mlb1 09:36 Patient visited by Renetta Dukes PCA. ct3 09:37 Patient visited by Jasen Rivera, RN. mlb1 09:37 The patient / caregiver is instructed regarding the plan of care and ED course. mlb1 09:42 Jos Zimmerman PA-C is PHCP. cc10 09:42 Sunitha Shepard MD is Attending Physician. cc10 09:54 Patient visited by Jos Zimmerman PA-C. cc10 09:54 Patient visited by Jos Zimmerman PA-C. cc10 09:58 Urine Culture Sent. mlb1 09:58 UA Sent. mlb1 10:04 GATS (NEGATIVE STREP SCREEN) Sent. mlb1 10:22 Koffi Shea MD is Referral Physician. cc10 10:26 [facility] Payment Agreement was scanned into [employer] and attached to record. mm15 10:42 Vega cath removed intact, balloon deflated. mlb1 10:42 Vega cath inserted 16 Fr. Balloon inflated. To gravity drainage. mlb1 11:19 Primary Nurse role handed off by So Gonzales RN mcp 11:34 Patient has correct armband on for positive identification. ttb 11:34 No IV's were initiated during this patient's visit. No procedures done that require ttb assistance. Labs drawn. (by ED staff). 11:36 Patient visited by Marylu Anders RN. ttb 11:48 Patient visited by Roxanne Ohara. lr2 Administered Medications: 10:04 Drug: HYDROcodone-acetaminophen 1 tabs [hydrocodone 7.5 mg-acetaminophen 325 mg tablet mlb1 (1 tabs)] Route: PO; Order Results: Lab Order: UA; SPEC'M 08/27/16 09:56 Test: APPEARANCE, URINE; Value: CLOUDY; Range: CLEAR; Abnormal: Above high normal; Status: F Test: COLOR, URINE; Value: YELLOW; Range: YELLOW; Status: F Test: PH,URINE; Value: 6.0; Range: 5.0-9.0; Units: UNITS; Status: F Test: SPECIFIC GRAVITY URINE AUTO; Value: 1.018; Range: 1.002-1.035; Status: F Test: PROTEIN, URINE AUTO; Value: 1+; Range: NEGATIVE; Abnormal: Above high normal; Units: mg/dL; Status: F Test: GLUCOSE, URINE (UA) AUTO; Value: NEGATIVE; Range: NEGATIVE; Units: mg/dL; Status: F Test: KETONE, URINE AUTO; Value: NEGATIVE; Range: NEGATIVE; Units: mg/dL; Status: F Test: UROBILINOGEN, URINE AUTO; Value: 0.2; Range: 0.0-2.0; Units: mg/dL; Status: F Test: BILIRUBIN, URINE AUTO; Value: NEGATIVE; Range: NEGATIVE; Status: F Test: NITRITE, URINE AUTO; Value: POSITIVE; Range: NEGATIVE; Status: F Test: LEUKOCYTE ESTERASE, URINE AUTO; Value: 3+; Range: NEGATIVE; Abnormal: Above high normal; Status: F Test: BLOOD, URINE BLOOD; Value: 3+; Range: NEGATIVE; Abnormal: Above high normal; Status: F Test: WBC, URINE AUTO; Value: TNTC; Range: 0-3; Abnormal: Above high normal; Units: /HPF; Status: F Test: RBC, URINE AUTO; Value: TNTC; Range: 0-3; Abnormal: Above high normal; Units: /HPF; Status: F Test: BACTERIA, URINE AUTO; Value: 3+; Range: NEGATIVE; Abnormal: Above high normal; Status: F Test: SQUAMOUS EPITHELIAL CELL UR AU; Value: 10; Range: 0-6; Units: /HPF; Status: F Test: MUCUS, URINE; Value: SMALL; Range: NEGATIVE; Status: F Test: HYALINE CAST, URINE AUTO; Value: 0; Range: 0-1; Units: /LPF; Status: F Test: URIC ACID CRYSTALS; Value: SMALL; Range: NONE; Status: F Outcome: 10:22 Discharge ordered by Provider. cc10 11:34 Discharge Assessment: Patient awake, alert and oriented x 3. No cognitive and/or ttb functional deficits noted. Patient verbalized understanding of disposition instructions. Patient awake and alert. patient administered narcotics - no. The following High Risk Discharge criteria are identified: None. Discharged to home via wheelchair, [facility]. Condition: good Condition: stable Condition: improved. Discharge instructions given to patient, Instructed on discharge instructions, follow up and referral plans. medication usage, Demonstrated understanding of instructions, medications, Other uncooperative at discharge. Prescriptions given X 2. No special radiology studies were completed. Property :Personal belongings accompany Pt. 12:19 Patient left the ED. ttb Signatures: Madalyn Mancuso, Content Creation Manager Unit lbd Louise Conte RN RN mcp Barney, Michael B, RN RN mlb1 Renetta Dukes, CAKE BATTER MIXER CAKE BATTER MIXER ct3 Marylu Anders RN RN ttb Vale Morris mm15 Jos Zimmerman PA-C PAElenoC cc10 Roxanne Ohara lr2 MTDD
--- NOTE | 2016-08-27 12:20 | EDDOCDS ---
Physician Documentation [facility] Name: Sole Ramirez Age: 61 yrs Sex: Female : 1955 Arrival Date: 08/27/2016 Time: 09:27 Bed 17 Private MD: Koffi Shea Disposition: 08/27/16 10:22 Discharged to Home/Self Care. Impression: Acute frontal sinusitis, Acute upper respiratory infection, unspecified, Cystitis - chronic. - Condition is Stable. - Discharge Instructions: Sinusitis, Adult, Urinary Tract Infection. - Prescriptions for lidocaine HCl 2 % Mucous Membrane solution - take 15 milliliter by ORAL route every 3 hours As needed; 200 milliliter. Levaquin 500 mg Oral Tablet - take 1 tablet by ORAL route once daily for 7 days; 7 tablet. - Medication Reconciliation form. - Follow up: Koffi Shea MD; When: Call to arrange an appointment; Reason: Wound/Symptom Recheck, Recheck today's complaints, Worsening of conditions, Continuance of care. - Problem is an ongoing problem. - Symptoms are unchanged. Historical: - Allergies: Darvocet-N 100 (Hives); Darvon (itching); Demerol (Vomit); Macrodantin (Vomit); PENICILLINS (Hives); - Home Meds: 1. albuterol sulfate 90 mcg/actuation Inhl HFAA 2 puffs every 4-6 hours 2. Eliquis 5 mg oral tab 1 tab 2 times per day 3. hydrocodone-acetaminophen 7.5-750 mg Oral tab 1 tab every 4 hours as needed for Pain 4. Klonopin 0.25 mg Oral tab 1 tab nightly 5. Lamictal 25 mg Oral tab 2 times per day 6. Lomotil 2.5-0.025 mg oral tab 2 tabs prn 7. loperamide 2 mg Oral tab as needed 8. meclizine 50 mg Oral tab 1 tab 2 times per day 9. Miralax 17 gram/dose Oral powd once daily 10. Motrin 400 mg Oral tab 1 tab every 4 hours 11. Sudafed 60 mg Oral tab 1 tab twice a day 12. Zyprexa 10 mg Oral tab QHS - PMHx: Anxiety; Asthma; Bipolar disorder; Chronic Back pain; chronic vega catheter; DVT; GERD; spinal tumor; - PSHx: spinal tumor removal; - Social history: Smoking status: Patient states was never smoker of tobacco. No barriers to communication noted, The patient speaks fluent Cymro, Speaks appropriately for age. - Family history: Not pertinent. - : The pt / caregiver states he / she is on a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: Eliqu Home medication list is obtained from the patient. - Exposure Risk Screening:: None identified. Vital Signs: 08/27 09:35 BP 158 / 90; Pulse 87; Resp 18; Temp 97.2(O); Pulse Ox 98% on R/A; Weight 68.04 kg / ct3 150 lbs (R); Height 4 ft. 11 in. (149.86 cm) (R); Pain 10/10; 11:47 BP 148 / 95; Pulse 101; Resp 19; Temp 99.5(T); Pulse Ox 98% on R/A; lr2 09:35 Body Mass Index 30.30 (68.04 kg, 149.86 cm) ct3 MDM: 09:42 Strep Screen, Nursing ordered. cc10 09:44 UA Ordered. EDMS 09:44 Urine Culture Ordered. EDMS 09:56 HYDROcodone-acetaminophen 7.5 mg-325 mg 1 tabs PO once ordered. cc10 10:01 GATS (NEGATIVE STREP SCREEN) Ordered. EDMS 10:20 UA Reviewed. cc10 10:25 Financial registration complete. mm15 10:26 [facility] Payment Agreement was scanned into [employer] and attached to record. mm15 10:31 Vega ordered. cc10 10:31 Misc. Nursing Order ordered. cc10 Administered Medications: 10:04 Drug: HYDROcodone-acetaminophen 1 tabs [hydrocodone 7.5 mg-acetaminophen 325 mg tablet mlb1 (1 tabs)] Route: PO; Signatures: Dispatcher [employer] EDMS Jasen Rivera RN RN mlb1 Marylu Anders RN RN Vale Xiong mm15 Jos Zimmerman PA-C PAJesse cc10 The chart was reviewed and I authenticate all verbal orders and agree with the evaluation and treatment provided.Attachments: 10:26 [facility] Payment Agreement mm15 MTDD
--- NOTE | 2016-08-29 13:19 | EDDOCDS ---
Physician Documentation [facility] Name: Sole Ramirez Age: 61 yrs Sex: Female : 1955 Arrival Date: 08/27/2016 Time: 09:27 Bed 17 Private MD: Koffi Shea Disposition: 08/27/16 10:22 Discharged to Home/Self Care. Impression: Acute frontal sinusitis, Acute upper respiratory infection, unspecified, Cystitis - chronic. - Condition is Stable. - Discharge Instructions: Sinusitis, Adult, Urinary Tract Infection. - Prescriptions for lidocaine HCl 2 % Mucous Membrane solution - take 15 milliliter by ORAL route every 3 hours As needed; 200 milliliter. Levaquin 500 mg Oral Tablet - take 1 tablet by ORAL route once daily for 7 days; 7 tablet. - Medication Reconciliation form. - Follow up: Koffi Shea MD; When: Call to arrange an appointment; Reason: Wound/Symptom Recheck, Recheck today's complaints, Worsening of conditions, Continuance of care. - Problem is an ongoing problem. - Symptoms are unchanged. Historical: - Allergies: Darvocet-N 100 (Hives); Darvon (itching); Demerol (Vomit); Macrodantin (Vomit); PENICILLINS (Hives); - Home Meds: 1. albuterol sulfate 90 mcg/actuation Inhl HFAA 2 puffs every 4-6 hours 2. Eliquis 5 mg oral tab 1 tab 2 times per day 3. hydrocodone-acetaminophen 7.5-750 mg Oral tab 1 tab every 4 hours as needed for Pain 4. Klonopin 0.25 mg Oral tab 1 tab nightly 5. Lamictal 25 mg Oral tab 2 times per day 6. Lomotil 2.5-0.025 mg oral tab 2 tabs prn 7. loperamide 2 mg Oral tab as needed 8. meclizine 50 mg Oral tab 1 tab 2 times per day 9. Miralax 17 gram/dose Oral powd once daily 10. Motrin 400 mg Oral tab 1 tab every 4 hours 11. Sudafed 60 mg Oral tab 1 tab twice a day 12. Zyprexa 10 mg Oral tab QHS - PMHx: Anxiety; Asthma; Bipolar disorder; Chronic Back pain; chronic vega catheter; DVT; GERD; spinal tumor; - PSHx: spinal tumor removal; - Social history: Smoking status: Patient states was never smoker of tobacco. No barriers to communication noted, The patient speaks fluent French, Speaks appropriately for age. - Family history: Not pertinent. - : The pt / caregiver states he / she is on a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: [facility] Home medication list is obtained from the patient. - Exposure Risk Screening:: None identified. Vital Signs: 08/27 09:35 BP 158 / 90; Pulse 87; Resp 18; Temp 97.2(O); Pulse Ox 98% on R/A; Weight 68.04 kg / ct3 150 lbs (R); Height 4 ft. 11 in. (149.86 cm) (R); Pain 10/10; 11:47 BP 148 / 95; Pulse 101; Resp 19; Temp 99.5(T); Pulse Ox 98% on R/A; lr2 09:35 Body Mass Index 30.30 (68.04 kg, 149.86 cm) ct3 MDM: 09:42 Strep Screen, Nursing ordered. cc10 09:44 UA Ordered. EDMS 09:44 Urine Culture Ordered. EDMS 09:56 HYDROcodone-acetaminophen 7.5 mg-325 mg 1 tabs PO once ordered. cc10 10:01 GATS (NEGATIVE STREP SCREEN) Ordered. EDMS 10:20 UA Reviewed. cc10 10:25 Financial registration complete. mm15 10:26 [facility] Payment Agreement was scanned into [employer] and attached to record. mm15 10:31 Vega ordered. cc10 10:31 Misc. Nursing Order ordered. cc10 15:34 T-Sheet-- Draft Copy was scanned into [employer] and attached to record. gb Administered Medications: 10:04 Drug: HYDROcodone-acetaminophen 1 tabs [hydrocodone 7.5 mg-acetaminophen 325 mg tablet mlb1 (1 tabs)] Route: PO; Signatures: Dispatcher Med[employer] EDMS Deonna Sy, Jasen Oneill RN RN mlb1 Marylu Anders RN RN Vale Xiong mm15 Jos Zimmerman PAElenoC PA-C cc10 The chart was reviewed and I authenticate all verbal orders and agree with the evaluation and treatment provided.Attachments: 10:26 [facility] Payment Agreement mm15 15:34 T-Sheet-- Draft Copy gb Chart Complete MTDD
--- NOTE | 2016-08-29 13:19 | EDDOCDS ---
Physician Documentation [facility] Name: Sole Ramirez Age: 61 yrs Sex: Female : 1955 Arrival Date: 08/27/2016 Time: 09:27 Bed 17 Private MD: Koffi Shea Disposition: 08/27/16 10:22 Discharged to Home/Self Care. Impression: Acute frontal sinusitis, Acute upper respiratory infection, unspecified, Cystitis - chronic. - Condition is Stable. - Discharge Instructions: Sinusitis, Adult, Urinary Tract Infection. - Prescriptions for lidocaine HCl 2 % Mucous Membrane solution - take 15 milliliter by ORAL route every 3 hours As needed; 200 milliliter. Levaquin 500 mg Oral Tablet - take 1 tablet by ORAL route once daily for 7 days; 7 tablet. - Medication Reconciliation form. - Follow up: Koffi Shea MD; When: Call to arrange an appointment; Reason: Wound/Symptom Recheck, Recheck today's complaints, Worsening of conditions, Continuance of care. - Problem is an ongoing problem. - Symptoms are unchanged. Historical: - Allergies: Darvocet-N 100 (Hives); Darvon (itching); Demerol (Vomit); Macrodantin (Vomit); PENICILLINS (Hives); - Home Meds: 1. albuterol sulfate 90 mcg/actuation Inhl HFAA 2 puffs every 4-6 hours 2. Eliquis 5 mg oral tab 1 tab 2 times per day 3. hydrocodone-acetaminophen 7.5-750 mg Oral tab 1 tab every 4 hours as needed for Pain 4. Klonopin 0.25 mg Oral tab 1 tab nightly 5. Lamictal 25 mg Oral tab 2 times per day 6. Lomotil 2.5-0.025 mg oral tab 2 tabs prn 7. loperamide 2 mg Oral tab as needed 8. meclizine 50 mg Oral tab 1 tab 2 times per day 9. Miralax 17 gram/dose Oral powd once daily 10. Motrin 400 mg Oral tab 1 tab every 4 hours 11. Sudafed 60 mg Oral tab 1 tab twice a day 12. Zyprexa 10 mg Oral tab QHS - PMHx: Anxiety; Asthma; Bipolar disorder; Chronic Back pain; chronic vega catheter; DVT; GERD; spinal tumor; - PSHx: spinal tumor removal; - Social history: Smoking status: Patient states was never smoker of tobacco. No barriers to communication noted, The patient speaks fluent Solomon Islander, Speaks appropriately for age. - Family history: Not pertinent. - : The pt / caregiver states he / she is on a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: [facility] Home medication list is obtained from the patient. - Exposure Risk Screening:: None identified. Vital Signs: 08/27 09:35 BP 158 / 90; Pulse 87; Resp 18; Temp 97.2(O); Pulse Ox 98% on R/A; Weight 68.04 kg / ct3 150 lbs (R); Height 4 ft. 11 in. (149.86 cm) (R); Pain 10/10; 11:47 BP 148 / 95; Pulse 101; Resp 19; Temp 99.5(T); Pulse Ox 98% on R/A; lr2 09:35 Body Mass Index 30.30 (68.04 kg, 149.86 cm) ct3 MDM: 09:42 Strep Screen, Nursing ordered. cc10 09:44 UA Ordered. EDMS 09:44 Urine Culture Ordered. EDMS 09:56 HYDROcodone-acetaminophen 7.5 mg-325 mg 1 tabs PO once ordered. cc10 10:01 GATS (NEGATIVE STREP SCREEN) Ordered. EDMS 10:20 UA Reviewed. cc10 10:25 Financial registration complete. mm15 10:26 [facility] Payment Agreement was scanned into [employer] and attached to record. mm15 10:31 Vega ordered. cc10 10:31 Misc. Nursing Order ordered. cc10 15:34 T-Sheet-- Draft Copy was scanned into [employer] and attached to record. gb Administered Medications: 10:04 Drug: HYDROcodone-acetaminophen 1 tabs [hydrocodone 7.5 mg-acetaminophen 325 mg tablet mlb1 (1 tabs)] Route: PO; Signatures: Dispatcher [employer] EDMS Deonna Sy, Jasen Oneill RN RN mlb1 Marylu Anders RN RN Vale Xiong mm15 Jos Zimmerman PAElenoC PA-C cc10 The chart was reviewed and I authenticate all verbal orders and agree with the evaluation and treatment provided.Attachments: 10:26 [facility] Payment Agreement mm15 15:34 T-Sheet-- Draft Copy gb Chart Complete MTDD
--- NOTE | 2016-08-29 13:20 | EDDOCDS ---
Nurse's Notes [facility] Name: Sole Ramirez Age: 61 yrs Sex: Female : 1955 Arrival Date: 08/27/2016 Time: 09:27 Bed 17 Private MD: Koffi Shea Diagnosis: Acute frontal sinusitis;Acute upper respiratory infection, unspecified;Cystitis-chronic Presentation: 08/27 09:31 Presenting complaint: EMS states: Sore throat headache and Vega catheter irritation. mlb1 Risk factors: Stridor is not present. Drooling is not present. Shortness of breath is not present. Cellulitis is not present. Adult Sepsis Screening: The patient does not have new or worsening altered mentation. Patient's respiratory rate is less than 22. Systolic blood pressure is greater than 100. Patient has a qSOFA score of 0- Negative Sepsis Screen. Suicide/Homicide risk assessment- the patient denies having any suicidal and/or homicidal ideations and does not present with any other emotional, behavioral or mental health complaints. Status: Patient is not a support services rep or dependent. Transition of care: patient was not received from another setting of care. 09:31 Acuity: KIM Level 4 mlb1 09:31 Method Of Arrival: Ambulance mlb1 Triage Assessment: 09:34 General: Appears in no apparent distress, comfortable, Behavior is appropriate for age, mlb1 cooperative. Pain: Location: head, back, throat Pain currently is 10 out of 10 on a pain scale. HIV screening NA for this visit Offered previously. The patient is triaged at the bedside. See Assessment in Nurses Notes section of ED record. EENT: Throat is clear. Respiratory: No deficits noted. Historical: - Allergies: Darvocet-N 100 (Hives); Darvon (itching); Demerol (Vomit); Macrodantin (Vomit); PENICILLINS (Hives); - Home Meds: 1. albuterol sulfate 90 mcg/actuation Inhl HFAA 2 puffs every 4-6 hours 2. Eliquis 5 mg oral tab 1 tab 2 times per day 3. hydrocodone-acetaminophen 7.5-750 mg Oral tab 1 tab every 4 hours as needed for Pain 4. Klonopin 0.25 mg Oral tab 1 tab nightly 5. Lamictal 25 mg Oral tab 2 times per day 6. Lomotil 2.5-0.025 mg oral tab 2 tabs prn 7. loperamide 2 mg Oral tab as needed 8. meclizine 50 mg Oral tab 1 tab 2 times per day 9. Miralax 17 gram/dose Oral powd once daily 10. Motrin 400 mg Oral tab 1 tab every 4 hours 11. Sudafed 60 mg Oral tab 1 tab twice a day 12. Zyprexa 10 mg Oral tab QHS - PMHx: Anxiety; Asthma; Bipolar disorder; Chronic Back pain; chronic vega catheter; DVT; GERD; spinal tumor; - PSHx: spinal tumor removal; - Social history: Smoking status: Patient states was never smoker of tobacco. No barriers to communication noted, The patient speaks fluent Bahraini, Speaks appropriately for age. - Family history: Not pertinent. - : The pt / caregiver states he / she is on a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: EliquPixplit Home medication list is obtained from the patient. - Exposure Risk Screening:: None identified. Screenin:37 Screening information is obtained from the patient. Fall risk: No risks identified. mlb1 Assistance ADL's: requires no assistance with activities of daily living. Abuse/DV Screen: The patient / caregiver reports he/she is: not in a situation that causes fear, pain or injury. Nutritional screening: No deficits noted. Advance Directives: Currently, there is no health care proxy. home support is adequate. Assessment: 09:35 General: Appears in no apparent distress, comfortable, Behavior is appropriate for age, mlb1 cooperative. Pain: Location: head, back, throat Pain currently is 10 out of 10 on a pain scale. Neurological: Level of Consciousness is awake, alert, Oriented to person, place, time. EENT: Throat is clear. Respiratory: Airway is patent Respiratory effort is even, unlabored, Breath sounds are clear bilaterally. : Vega in place to gravity drainage. Derm: No deficits noted. 11:34 General: Appears in no apparent distress, comfortable, Behavior is inappropriate for ttb age, uncooperative. Neurological: Level of Consciousness is awake, alert. Respiratory: Airway is patent Respiratory effort is even, unlabored, Respiratory pattern is regular, symmetrical. GI: other pt tolerated large meal prior to DC. 12:00 General: pt given extra meal and soup per request : she states she has now missed her ttb [id number] delivery.. 12:17 General: pharmacy contacted regarding pt concerns for hard copy of scripts. No hard ttb copy needed for home delivery per pharmacy benefits coordinator. Pt escorted out at this time with [facility] shag truck driver in WC. . Vital Signs: 09:35 BP 158 / 90; Pulse 87; Resp 18; Temp 97.2(O); Pulse Ox 98% on R/A; Weight 68.04 kg (R); ct3 Height 4 ft. 11 in. (149.86 cm) (R); Pain 10/10; 11:47 BP 148 / 95; Pulse 101; Resp 19; Temp 99.5(T); Pulse Ox 98% on R/A; lr2 09:35 Body Mass Index 30.30 (68.04 kg, 149.86 cm) ct3 Vitals: 09:35 Log In Time N/A - ambulance arrival. ct3 10:01 Strep Screen is obtained and tested: Negative, a GATSNEG culture is ordered in [place] [id number] and sent. ED Course: 09:28 Patient visited by Madalyn Mancuso, Quality Improvement Consultant. lbd 09:28 Patient moved to Waiting lbd 09:29 Koffi Shea MD is Private Physician. lbd 09:29 So Gonzales,GEORGE is Primary Nurse. lbd 09:29 Patient moved to 17 lbd 09:30 Patient visited by Jasen Rivera, GEORGE. mlb1 09:31 Patient visited by Jasen Rivera, RN. mlb1 09:32 Triage Initiated mlb1 09:36 Patient visited by Renetta Dukes PCA. ct3 09:37 Patient visited by Jasen Rivera, RN. mlb1 09:37 The patient / caregiver is instructed regarding the plan of care and ED course. mlb1 09:42 Jos Zimmerman PA-C is PHCP. cc10 09:42 Sunitha Shepard MD is Attending Physician. cc10 09:54 Patient visited by Jos Zimmerman PA-C. cc10 09:54 Patient visited by Jos Zimmerman PA-C. cc10 09:58 Urine Culture Sent. mlb1 09:58 UA Sent. mlb1 10:04 GATS (NEGATIVE STREP SCREEN) Sent. mlb1 10:22 Koffi Shea MD is Referral Physician. cc10 10:26 [facility] Payment Agreement was scanned into [employer] and attached to record. mm15 10:42 Vega cath removed intact, balloon deflated. mlb1 10:42 Vega cath inserted 16 Fr. Balloon inflated. To gravity drainage. mlb1 11:19 Primary Nurse role handed off by So Gonzales RN mcp 11:34 Patient has correct armband on for positive identification. ttb 11:34 No IV's were initiated during this patient's visit. No procedures done that require ttb assistance. Labs drawn. (by ED staff). 11:36 Patient visited by Marylu Anders RN. ttb 11:48 Patient visited by Roxanne Ohara. lr2 15:34 T-Sheet-- Draft Copy was scanned into [employer] and attached to record. gb Administered Medications: 10:04 Drug: HYDROcodone-acetaminophen 1 tabs [hydrocodone 7.5 mg-acetaminophen 325 mg tablet mlb1 (1 tabs)] Route: PO; Order Results: Lab Order: UA; SPEC'M 08/27/16 09:56 Test: APPEARANCE, URINE; Value: CLOUDY; Range: CLEAR; Abnormal: Above high normal; Status: F Test: COLOR, URINE; Value: YELLOW; Range: YELLOW; Status: F Test: PH,URINE; Value: 6.0; Range: 5.0-9.0; Units: UNITS; Status: F Test: SPECIFIC GRAVITY URINE AUTO; Value: 1.018; Range: 1.002-1.035; Status: F Test: PROTEIN, URINE AUTO; Value: 1+; Range: NEGATIVE; Abnormal: Above high normal; Units: mg/dL; Status: F Test: GLUCOSE, URINE (UA) AUTO; Value: NEGATIVE; Range: NEGATIVE; Units: mg/dL; Status: F Test: KETONE, URINE AUTO; Value: NEGATIVE; Range: NEGATIVE; Units: mg/dL; Status: F Test: UROBILINOGEN, URINE AUTO; Value: 0.2; Range: 0.0-2.0; Units: mg/dL; Status: F Test: BILIRUBIN, URINE AUTO; Value: NEGATIVE; Range: NEGATIVE; Status: F Test: NITRITE, URINE AUTO; Value: POSITIVE; Range: NEGATIVE; Status: F Test: LEUKOCYTE ESTERASE, URINE AUTO; Value: 3+; Range: NEGATIVE; Abnormal: Above high normal; Status: F Test: BLOOD, URINE BLOOD; Value: 3+; Range: NEGATIVE; Abnormal: Above high normal; Status: F Test: WBC, URINE AUTO; Value: TNTC; Range: 0-3; Abnormal: Above high normal; Units: /HPF; Status: F Test: RBC, URINE AUTO; Value: TNTC; Range: 0-3; Abnormal: Above high normal; Units: /HPF; Status: F Test: BACTERIA, URINE AUTO; Value: 3+; Range: NEGATIVE; Abnormal: Above high normal; Status: F Test: SQUAMOUS EPITHELIAL CELL UR AU; Value: 10; Range: 0-6; Units: /HPF; Status: F Test: MUCUS, URINE; Value: SMALL; Range: NEGATIVE; Status: F Test: HYALINE CAST, URINE AUTO; Value: 0; Range: 0-1; Units: /LPF; Status: F Test: URIC ACID CRYSTALS; Value: SMALL; Range: NONE; Status: F Lab Order: Urine Culture; SPEC'M 08/27/16 09:56 Test: URINE CULTURE; Value: <EXTERNAL COMMENT eCWMed> FULL REPORT IN LAB NOTES (eCW and Medent).; Status: F Test: URINE CULTURE; Value: URINE CULTURE RESULT SPECIMEN APPEARS CONTAMINATED; Status: F Lab Order: GATS (NEGATIVE STREP SCREEN); SPEC'M 08/27/16 09:56 Test: GATS CULTURE (NEG STREP SCR); Value: GATS RESULT NEGATIVE FOR STREP PYOGENES (GROUP A); Status: F Test: GATS CULTURE (NEG STREP SCR); Value: <EXTERNAL COMMENT eCWMed> FULL REPORT IN LAB NOTES (eCW and Medent).; Status: F Outcome: 10:22 Discharge ordered by Provider. cc10 11:34 Discharge Assessment: Patient awake, alert and oriented x 3. No cognitive and/or ttb functional deficits noted. Patient verbalized understanding of disposition instructions. Patient awake and alert. patient administered narcotics - no. The following High Risk Discharge criteria are identified: None. Discharged to home via wheelchair, [facility]. Condition: good Condition: stable Condition: improved. Discharge instructions given to patient, Instructed on discharge instructions, follow up and referral plans. medication usage, Demonstrated understanding of instructions, medications, Other uncooperative at discharge. Prescriptions given X 2. No special radiology studies were completed. Property :Personal belongings accompany Pt. 12:19 Patient left the ED. ttb Signatures: Madalyn Mancuso, Quality Improvement Consultant Unit lbd Louise Conte, RN RN Deonna Jett, Anderson Reg charity Rivera, Jasen Jeffers RN RN mlb1 Renetta Dukes, FINANCE BUSINESS MANAGER FINANCE BUSINESS MANAGER ct3 Marylu Anders, GEORGE RN ttb Vale Morris mm15 Jos Zimmerman, PA-C PA-C cc10 Roxanne Ohara lr2 Chart Complete MTDD
== END 2016-08-27 12:19 | disposition home or self-care (01) ==
LOC: M ED 09:27
DX: J01.90 Acute sinusitis, unspecified (principal); J45.909 Unspecified asthma, uncomplicated; F31.9 Bipolar disorder, unspecified; M54.9 Dorsalgia, unspecified; Z86.718 Personal history of other venous thrombosis and embolism; K21.9 Gastro-esophageal reflux disease without esophagitis; Z85.830 Personal history of malignant neoplasm of bone; Z79.01 Long term (current) use of a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; Z79.899 Other long term (current) drug therapy; Z88.5 Allergy status to narcotic agent; Z88.8 Allergy status to other drugs, medicaments and biological substances; Z88.0 Allergy status to penicillin; Z93.6 Other artificial openings of urinary tract status
CPT/HCPCS: 36415; 81001; 87086; 87880; 99284; P9612

== ENCOUNTER 2016-09-19 01:16 | Emergency (ER) | payer MEDICARE, MEDICAID ==
[~2016-09-19] VITALS: Ht 149.9 cm; Wt 59.9 kg
[2016-09-19] MEDS ORDERED: NS 1,000 ML IV ONE (03:00)
[2016-09-19] MEDS ORDERED: ONDANSETRON 4MG/2ML VIAL (J2405) IV ONE (03:00)
[2016-09-19 03:27] LABS: BASO % 0.2 % (0.0-1.0); EOS # 0.1 K/mm3 (0.0-0.50); LARGE UNSTAINED CELL # 0.1 K/mm3 (0.0-0.4); LARGE UNSTAINED CELL % 1.1 % (0.0-4.0); LYMPH # 0.8 K/mm3 (1.5-4.5); LYMPH % 15.4 % (24.0-44.0); MEAN CORPUSCULAR HGB CONC 33.5 g/dl (32.0-36.5); MEAN CORPUSCULAR VOLUME 92.4 fl (80.0-96.0); MONO # 0.2 K/mm3 (0.0-0.8); MONO % 4.4 % (0.0-5.0); NEUTROPHILS # 3.7 K/mm3 (1.8-7.7); NEUTROPHILS % 76.9 % (36.0-66.0); PLATELET COUNT, AUTOMATED 164 k/mm3 (150-450); RED CELL DISTRIBUTION WIDTH 13.9 % (11.5-14.5); WHITE BLOOD COUNT 4.9 K/mm3 (4.0-10.0)
[2016-09-19 04:19] LABS: ALBUMIN 3.7 GM/DL (3.2-5.2); ALBUMIN/GLOBULIN RATIO 1.06 (1.00-1.93); ALKALINE PHOSPHATASE 65 U/L (45-117); ALT/SGPT 17 U/L (12-78); ANION GAP 7 MEQ/L (8-16); AST/SGOT 16 U/L (15-37); BILIRUBIN,DIRECT < 0.1 MG/DL (0.0-0.2); BILIRUBIN,TOTAL 0.4 MG/DL (0.2-1.0); BLOOD UREA NITROGEN 22 MG/DL (7-18); CALCIUM LEVEL 8.6 MG/DL (8.8-10.2); CARBON DIOXIDE LEVEL 32 MEQ/L (21-32); CHLORIDE LEVEL 107 MEQ/L (98-107); CREATININE FOR GFR 0.97 MG/DL (0.55-1.02); GLOMERULAR FILTRATION RATE > 60.0 (>45); GLUCOSE, FASTING 119 MG/DL (80-110); POTASSIUM SERUM 3.6 MEQ/L (3.5-5.1); SODIUM LEVEL 146 MEQ/L (136-145); TOTAL PROTEIN 7.2 GM/DL (6.4-8.2)
[2016-09-19] MEDS ORDERED: ONDA4TAB6 PO (05:41)
[2016-09-19] MEDS ORDERED: ZOFR4TAB3 PO (05:42)
[2016-09-19 06:06] VITALS: BP 136/75
== END 2016-09-19 07:10 | disposition home or self-care (01) ==
LOC: EDBD 01:16 → M ED 03:47
DX: A09 Infectious gastroenteritis and colitis, unspecified (principal); Z88.6 Allergy status to analgesic agent; Z88.0 Allergy status to penicillin; Z88.8 Allergy status to other drugs, medicaments and biological substances; Z91.040 Latex allergy status; Z86.718 Personal history of other venous thrombosis and embolism; M19.90 Unspecified osteoarthritis, unspecified site; M54.9 Dorsalgia, unspecified; D64.9 Anemia, unspecified; K58.9 Irritable bowel syndrome, unspecified; F31.9 Bipolar disorder, unspecified; Z79.899 Other long term (current) drug therapy
CPT/HCPCS: 36415; 80048; 80076; 83690; 85025; 93041; 96374; 99285; J2405

== ENCOUNTER 2016-10-07 08:39 | Emergency (ER) | payer MEDICARE, MEDICAID ==
[~2016-10-07 08:39] MED LIST changes: +ONDA4TAB6 PO; +ZOFR4TAB3 PO
[2016-10-07 09:59] LABS: CALCIUM OXALATE CRYSTALS MODERATE; RENAL EPITHELIAL CELLS 1 /HPF
--- NOTE | 2016-10-07 10:14 | REP ---
Clinical: Cough. Technique: PA and lateral. Comparison: 08/11/2016. Findings: Mediastinum and cardiac silhouette are stable. Lung webb demonstrate chronic stable changes without acute consolidation, effusion, or pneumothorax. Skeletal structures demonstrate age-related degenerative changes. Impression: Chronic stable changes. No acute cardiopulmonary process. Signed by Boyd Ford MD 10/07/2016 10:06 A
[2016-10-07] MEDS ORDERED: CIPR500T89 PO (10:33)
[2016-10-07] MEDS ORDERED: ZITHTAB PO (10:34)
[2016-10-07] MEDS ORDERED: PYRI200T5 PO (10:35)
[2016-10-07 11:01] VITALS: BP 116/58
== END 2016-10-07 11:02 | disposition home or self-care (01) ==
LOC: M ED 09:19
DX: J01.10 Acute frontal sinusitis, unspecified (principal); N39.0 Urinary tract infection, site not specified; Z79.899 Other long term (current) drug therapy; Z88.6 Allergy status to analgesic agent; Z88.8 Allergy status to other drugs, medicaments and biological substances; Z91.040 Latex allergy status; Z88.0 Allergy status to penicillin; Z88.5 Allergy status to narcotic agent; Z88.1 Allergy status to other antibiotic agents

== ENCOUNTER 2016-10-10 07:30 | Emergency (ER) | payer MEDICARE, MEDICAID ==
[~2016-10-10 07:30] MED LIST changes: +CIPR500T89 PO; +PYRI200T5 PO; +ZITHTAB PO
--- NOTE | 2016-10-10 09:27 | REP ---
Clinical: Lower back pain. Technique: AP, lateral, bilateral oblique and cone down views of the lumbosacral spine. Comparison: 06/25/2015. Findings: Advanced chronic marked dextroconvex scoliosis and associated multilevel degenerative changes are again noted and essentially unchanged. There is no obvious acute fracture / compression injury or subluxation. Impression: Advanced marked scoliosis and multilevel degenerative changes similar to prior examination. No obvious acute fracture / compression injury. Signed by Boyd Ford MD 10/10/2016 08:56 A
[2016-10-10] MEDS ORDERED: FLON1SPR (09:43)
[2016-10-10] MEDS ORDERED: ZITHTAB PO (09:43)
[2016-10-10 09:56] VITALS: BP 132/78
== END 2016-10-10 10:10 | disposition home or self-care (01) ==
LOC: EDBD 07:30 → M ED 08:36
DX: J01.90 Acute sinusitis, unspecified (principal); M54.5 Low back pain; Z88.6 Allergy status to analgesic agent; Z88.0 Allergy status to penicillin; Z91.040 Latex allergy status; Z79.899 Other long term (current) drug therapy; G43.909 Migraine, unspecified, not intractable, without status migrainosus; D43.4 Neoplasm of uncertain behavior of spinal cord; N31.9 Neuromuscular dysfunction of bladder, unspecified; Z86.718 Personal history of other venous thrombosis and embolism; J45.909 Unspecified asthma, uncomplicated; K57.32 Diverticulitis of large intestine without perforation or abscess without bleeding; F31.9 Bipolar disorder, unspecified

== ENCOUNTER 2016-10-14 05:26 | Emergency (ER) | payer MEDICARE, MEDICAID ==
[~2016-10-14] VITALS: Ht 149.9 cm; Wt 72.6 kg
[~2016-10-14 05:26] MED LIST changes: -COLA100C PO; +COLA100C3 PO; +FLON1SPR
[2016-10-14] MEDS ORDERED: LAMI25TA PO (05:52)
[2016-10-14] MEDS ORDERED: ZYPR10TA PO (05:52)
[2016-10-14] MEDS ORDERED: MECL-68 PO (05:52)
[2016-10-14] MEDS ORDERED: K-TA1TAB PO (05:52)
[2016-10-14] MEDS ORDERED: ALBU17IN2 INH (05:52)
[2016-10-14] MEDS ORDERED: ELIQ5TAB PO (05:52)
[2016-10-14] MEDS ORDERED: SUDA30TA PO (05:52)
[2016-10-14] MEDS ORDERED: MIRA3350 PO (05:52)
[2016-10-14] MEDS ORDERED: LOMO2.5T PO (05:52)
[2016-10-14] MEDS ORDERED: LOPE2TAB5 PO (05:52)
[2016-10-14 09:57] LABS: ANION GAP 6 MEQ/L (8-16); BLOOD UREA NITROGEN 23 MG/DL (7-18); CALCIUM LEVEL 9.3 MG/DL (8.8-10.2); CARBON DIOXIDE LEVEL 31 MEQ/L (21-32); CHLORIDE LEVEL 106 MEQ/L (98-107); CREATININE FOR GFR 0.97 MG/DL (0.55-1.02); GLOMERULAR FILTRATION RATE > 60.0 (>45); GLUCOSE, FASTING 94 MG/DL (80-110); POTASSIUM SERUM 3.9 MEQ/L (3.5-5.1); SODIUM LEVEL 143 MEQ/L (136-145)
[2016-10-14 10:40] VITALS: BP 119/73
== END 2016-10-14 11:16 | disposition home or self-care (01) ==
LOC: EDBD 05:26 → M ED 06:30
DX: T36.8X5A Adverse effect of other systemic antibiotics, initial encounter (principal)

== ENCOUNTER 2016-12-17 07:19 | Emergency (ER) | payer MEDICARE, MEDICAID ==
[~2016-12-17 07:19] MED LIST changes: +K-TA1TAB PO; +LOPE2TAB5 PO
--- NOTE | 2016-12-17 09:24 | REP ---
CT CERVICAL SPINE WITHOUT CONTRAST: HISTORY: Trauma. COMPARISON: 07/29/2016 There is no acute fracture or subluxation. A disc bulge is present at the C5-6 level. There is minimal narrowing of the spinal canal. Bilateral uncinate process hypertrophy is present. This produces minimal narrowing of the C5 neural foramina. The remaining neural foramina are patent. The C5-6 intervertebral disc is decreased in height consistent with disc degeneration. Anterior osteophytes are present at the C1-2, C4-5 and C5-6 levels. There is loss of the normal lordotic curve. IMPRESSION: 1. There is no acute fracture or subluxation. 2. There is cervical spondylosis at the C1-2, C4-5, and C5-6 levels. Signed by Myles Nesbitt MD 12/17/2016 09:26 A
--- NOTE | 2016-12-17 09:25 | REP ---
THORACIC SPINE: Three views of the thoracic spine performed. There is no compression fracture. There is mild diffuse spurring. There is curvature of the thoracolumbar spine convex to the right. The posterior elements appear intact. IMPRESSION: No evidence of acute fracture or dislocation. Scoliosis with degenerative changes. Signed by Andrei Crump MD 12/19/2016 06:53 P
--- NOTE | 2016-12-17 09:33 | REP ---
LUMBOSACRAL SPINE SERIES: Five views of the lumbosacral spine are performed and compared to a prior study of 10/10/2016. There is significant curvature of the lumbar spine, convex to the right. There is no compression fracture. There is spurring and disc space narrowing mainly on the left at L1-2. There is moderate disc space narrowing with subchondral sclerosis and vacuum at L5-S1. IMPRESSION: Arthritic changes and scoliosis without evidence of acute fracture or dislocation. Signed by Andrei Crump MD 12/19/2016 06:53 P
--- NOTE | 2016-12-17 09:35 | REP ---
LEFT KNEE: Five views of the left knee are performed. There is no acute fracture or dislocation. There is mild medial joint space narrowing with subchondral sclerosis and spurring. There is moderate patellofemoral compartment narrowing with subchondral sclerosis. There is moderate lateral patellar facet spurring. IMPRESSION: Degenerative changes. No evidence of acute fracture or dislocation. Signed by Andrei Crump MD 12/19/2016 06:53 P
--- NOTE | 2016-12-17 09:36 | REP ---
RIGHT FOOT SERIES: Four views right foot performed. There is no acute fracture or dislocation. There is mild narrowing at the 1st metatarsophalangeal joint. There is a moderate sized inferior calcaneal spur. IMPRESSION: Mild degenerative changes. No acute fracture or dislocation. Signed by Andrei Crump MD 12/19/2016 06:53 P
[2016-12-17 09:43] VITALS: BP 131/78
[2017-01-04] MEDS ORDERED: CIPR500T89 PO (16:22)
== END 2016-12-17 10:02 | disposition home or self-care (01) ==
LOC: M ED 07:42
DX: T14.8 Other injury of unspecified body region (principal); Y92.018 Other place in single-family (private) house as the place of occurrence of the external cause; W01.0XXA Fall on same level from slipping, tripping and stumbling without subsequent striking against object, initial encounter; Y93.89 Activity, other specified; Y99.8 Other external cause status; F41.9 Anxiety disorder, unspecified; F33.9 Major depressive disorder, recurrent, unspecified; Z79.899 Other long term (current) drug therapy; Z79.51 Long term (current) use of inhaled steroids; Z79.01 Long term (current) use of a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; Z88.0 Allergy status to penicillin; Z88.8 Allergy status to other drugs, medicaments and biological substances; Z91.040 Latex allergy status

== ENCOUNTER 2017-01-04 11:30 | Emergency (ER) | payer MEDICARE, MEDICAID ==
[~2017-01-04] VITALS: Ht 162.6 cm; Wt 60.0 kg
[~2017-01-04 11:30] MED LIST changes: +BACITAB PO; -BACITAB3 PO; +CARI350T PO; -CARI350T20 PO; +CIPR-249 PO; -CIPR500T89 PO; -COLA100C3 PO; +COLA100C5 PO; -IBUP200C PO; +IBUP200C10 PO; +LEVA1TAB PO; -LEVA250T PO; +LOPE2CAP PO; -LOPE2TAB PO; -NORC7.5T PO; +NORC7.5T35 PO; +PROM12.55 PO; -PROM125TA PO; -PROM50TA2 PO; +PROM50TA4 PO; +PYRI1TAB5 PO; -PYRI200T5 PO; +SALI0.6523; -SALI0.653
[2017-01-04] MEDS ORDERED: LOMO2.5T PO (11:57)
[2017-01-04] MEDS ORDERED: MIRA3350 PO (11:57)
[2017-01-04] MEDS ORDERED: MOTR200T44 PO (11:57)
[2017-01-04] MEDS ORDERED: KLON0.5T PO (11:57)
[2017-01-04] MEDS ORDERED: PROM25TA GT (11:57)
[2017-01-04] MEDS ORDERED: VICO7.5T11 PO (11:57)
[2017-01-04] MEDS ORDERED: ELIQ2.5T PO (11:57)
[2017-01-04] MEDS ORDERED: HYDR-3716 PO (11:57)
[2017-01-04 12:50] LABS: BASO % 0.3 % (0.0-1.0); EOS # 0.1 K/mm3 (0.0-0.50); EOS % 2.7 % (0.0-3.0); LARGE UNSTAINED CELL # 0.1 K/mm3 (0.0-0.4); LARGE UNSTAINED CELL % 1.7 % (0.0-4.0); LYMPH # 1.7 K/mm3 (1.5-4.5); MEAN CORPUSCULAR HEMOGLOBIN 32.3 pg (27.0-33.0); MEAN CORPUSCULAR HGB CONC 33.6 g/dl (32.0-36.5); MEAN CORPUSCULAR VOLUME 96.3 fl (80.0-96.0); MONO # 0.2 K/mm3 (0.0-0.8); MONO % 4.1 % (0.0-5.0); NEUTROPHILS # 2.3 K/mm3 (1.8-7.7); NEUTROPHILS % 53.3 % (36.0-66.0); PLATELET COUNT, AUTOMATED 177 k/mm3 (150-450); RED CELL DISTRIBUTION WIDTH 13.6 % (11.5-14.5); WHITE BLOOD COUNT 4.3 K/mm3 (4.0-10.0)
[2017-01-04 13:03] LABS: CALCIUM OXALATE CRYSTALS SMALL
[2017-01-04 13:09] LABS: INR 1.01
[2017-01-04] MEDS ORDERED: GASTROGRAFIN SOLUTION 30ML (Q9963) PO ONE ×2 (13:45)
[2017-01-04 13:58] LABS: ALBUMIN 3.7 GM/DL (3.2-5.2); ALBUMIN/GLOBULIN RATIO 0.93 (1.00-1.93); ALKALINE PHOSPHATASE 69 U/L (45-117); ALT/SGPT 18 U/L (12-78); ANION GAP 4 MEQ/L (8-16); AST/SGOT 17 U/L (15-37); BILIRUBIN,DIRECT < 0.1 MG/DL (0.0-0.2); BILIRUBIN,TOTAL 0.3 MG/DL (0.2-1.0); BLOOD UREA NITROGEN 15 MG/DL (7-18); CALCIUM LEVEL 9.1 MG/DL (8.8-10.2); CARBON DIOXIDE LEVEL 29 MEQ/L (21-32); CHLORIDE LEVEL 105 MEQ/L (98-107); CREATININE FOR GFR 0.78 MG/DL (0.55-1.02); GLOMERULAR FILTRATION RATE > 60.0 (>45); GLUCOSE, FASTING 82 MG/DL (80-110); POTASSIUM SERUM 4.2 MEQ/L (3.5-5.1); SODIUM LEVEL 138 MEQ/L (136-145); TOTAL PROTEIN 7.7 GM/DL (6.4-8.2)
[2017-01-04] MEDS ORDERED: CIPROFLOXACIN 400 MG in APPROPRIATE DILUENT 1 EA IV ONE (14:30)
[2017-01-04] MEDS ORDERED: ISOVUE-370 76% 100ML VIAL (Q9967) As Ordered ONE (15:12)
[2017-01-04] MEDS ORDERED: CIPR-249 PO (16:22)
[2017-01-04] MEDS ORDERED: GI COCKTAIL 50ML BTL(HYOSCYAMINE/MAALOX/LIDOCAINE VISCOUS)(1:3:1) PO ONE (16:30)
[2017-01-04 18:18] VITALS: BP 147/77
--- NOTE | 2017-01-05 08:17 | REP ---
CT abdomen and pelvis with IV and with oral contrast: History: Diffuse abdominal pain. Comparison CT study is from May 20, 2015. CT contrast dose: 100 ml of Isovue [address] findings: Preliminary meat dresser radiograph demonstrates a moderate dextroconvex scoliotic curve in the lumbar spine. The lung bases are essentially clear. There are clips in the gallbladder fossa consistent with cholecystectomy. There is intra- and extrahepatic biliary ductal dilation noted with common bile duct measuring up to 20 mm in AP dimension gradually tapering distally. No pancreatic mass or cholelithiasis is seen by CT criteria. The common bile duct had a similar appearance on CT study of the abdomen from May 20, 2015. Pancreas is otherwise unremarkable. No adrenal lesion is seen on either side. The kidneys enhance symmetrically and are morphologically intact. There are several scattered small hepatic cysts again noted. Normal caliber aorta is seen. There is a small ventral hernia near the umbilicus containing unobstructed loops of air and fluid-filled small bowel. A Islas catheter is seen in the urinary bladder. The appendix is surgically absent. Small and large intestinal bowel loops are otherwise unremarkable. There are degenerative disc and facet changes in the lumbar spine. There are perineural cysts in the sacrum. These are unchanged from 2015. The ventral hernia is unchanged from the April 2015 prior study. Impression: No acute abnormality noted. Post cholecystectomy biliary ductal dilation, CBD measuring up to 2.0 cm, but unchanged from the April 2015 study. Stable hepatic cysts. Scoliosis and degenerative spondylosis changes. Stable ventral hernia containing nonobstructed loop of small bowel. Signed by Trung Jensen MD 01/05/2017 09:00 A
== END 2017-01-04 18:19 | disposition home or self-care (01) ==
LOC: M ED 13:31
DX: N30.00 Acute cystitis without hematuria (principal); K43.1 Incisional hernia with gangrene; Z79.01 Long term (current) use of a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; G89.29 Other chronic pain; R10.9 Unspecified abdominal pain; N31.9 Neuromuscular dysfunction of bladder, unspecified; J45.909 Unspecified asthma, uncomplicated; F41.9 Anxiety disorder, unspecified; M54.30 Sciatica, unspecified side; F31.9 Bipolar disorder, unspecified; D33.4 Benign neoplasm of spinal cord; Z96.0 Presence of urogenital implants; Z86.718 Personal history of other venous thrombosis and embolism; Z79.899 Other long term (current) drug therapy; Z88.0 Allergy status to penicillin; Z88.5 Allergy status to narcotic agent; Z88.8 Allergy status to other drugs, medicaments and biological substances; Z91.040 Latex allergy status
CPT/HCPCS: 36415; 74177; 80048; 80076; 81001; 83690; 85025; 85610; 87088; 87186; 93041; 96374; 99285; J0744; Q9963; Q9967

== ENCOUNTER 2017-01-09 04:56 | Emergency (ER) | payer MEDICARE, MEDICAID ==
[~2017-01-09] VITALS: Ht 152.4 cm; Wt 61.4 kg
[~2017-01-09 04:56] MED LIST changes: +MOTR200T44 PO; +PROM25TA GT; +VICO7.5T11 PO
[2017-01-09 06:55] LABS: BASO % 0.4 % (0.0-1.0); EOS # 0.1 K/mm3 (0.0-0.50); EOS % 3.3 % (0.0-3.0); LARGE UNSTAINED CELL # 0.1 K/mm3 (0.0-0.4); LYMPH # 1.8 K/mm3 (1.5-4.5); LYMPH % 42.5 % (24.0-44.0); MEAN CORPUSCULAR HEMOGLOBIN 31.8 pg (27.0-33.0); MEAN CORPUSCULAR HGB CONC 32.8 g/dl (32.0-36.5); MEAN CORPUSCULAR VOLUME 96.9 fl (80.0-96.0); MONO # 0.2 K/mm3 (0.0-0.8); MONO % 4.5 % (0.0-5.0); NEUTROPHILS % 47.3 % (36.0-66.0); PLATELET COUNT, AUTOMATED 187 k/mm3 (150-450); RED CELL DISTRIBUTION WIDTH 13.5 % (11.5-14.5); WHITE BLOOD COUNT 4.1 K/mm3 (4.0-10.0)
[2017-01-09 07:04] LABS: INR 1.16
[2017-01-09 07:08] LABS: ANION GAP 4 MEQ/L (8-16); BLOOD UREA NITROGEN 20 MG/DL (7-18); CALCIUM LEVEL 9.2 MG/DL (8.8-10.2); CARBON DIOXIDE LEVEL 31 MEQ/L (21-32); CHLORIDE LEVEL 109 MEQ/L (98-107); CREATININE FOR GFR 0.88 MG/DL (0.55-1.02); GLOMERULAR FILTRATION RATE > 60.0 (>45); GLUCOSE, FASTING 95 MG/DL (80-110); POTASSIUM SERUM 3.4 MEQ/L (3.5-5.1); SODIUM LEVEL 144 MEQ/L (136-145)
[2017-01-09] MEDS ORDERED: BACT800T5 PO (07:45)
[2017-01-09] MEDS ORDERED: BACTRIM 160MG/800MG DS TAB PO ONE (07:45)
[2017-01-09 08:40] VITALS: BP 170/81
== END 2017-01-09 10:16 | disposition home or self-care (01) ==
LOC: EDBD 04:56 → M ED 06:34
DX: R31.9 Hematuria, unspecified (principal); B96.20 Unspecified Escherichia coli [E. coli] as the cause of diseases classified elsewhere; R19.7 Diarrhea, unspecified; H81.09 Meniere's disease, unspecified ear; Z96.0 Presence of urogenital implants; Z79.899 Other long term (current) drug therapy; Z88.0 Allergy status to penicillin; Z88.8 Allergy status to other drugs, medicaments and biological substances; Z91.040 Latex allergy status

== ENCOUNTER 2017-01-26 00:46 | Emergency (ER) | payer MEDICARE, MEDICAID ==
[~2017-01-26] VITALS: Ht 152.4 cm; Wt 64.0 kg
[~2017-01-26 00:46] MED LIST changes: +BACT800T5 PO
[2017-01-26 02:08] LABS: CALCIUM OXALATE CRYSTALS SMALL
[2017-01-26] MEDS ORDERED: CIPR-249 PO (02:49)
[2017-01-26 02:54] VITALS: BP 115/63
[2017-01-26] MEDS ORDERED: CIPROFLOXACIN 500 MG TAB PO ONE (03:00)
[2017-01-26] MEDS: FOSFOMYCIN TROMETHAMINE 3 GM POWDER PACKET (MONUROL) PO ONE (03:05)
== END 2017-01-26 03:17 | disposition home or self-care (01) ==
LOC: M ED 00:46 → EDBD 00:46 → M ED 03:17
DX: N39.0 Urinary tract infection, site not specified (principal); N31.9 Neuromuscular dysfunction of bladder, unspecified

== ENCOUNTER 2017-01-30 18:58 | Emergency (ER) | payer MEDICARE, MEDICAID ==
[~2017-01-30] VITALS: Ht 157.5 cm; Wt 53.2 kg
[2017-01-30] MEDS ORDERED: ONDANSETRON 4MG/2ML VIAL (J2405) IV ONE (20:30)
[2017-01-30 20:57] LABS: BASO % 0.5 % (0.0-1.0); EOS # 0.1 K/mm3 (0.0-0.50); EOS % 2.7 % (0.0-3.0); LARGE UNSTAINED CELL % 0.8 % (0.0-4.0); LYMPH # 1.1 K/mm3 (1.5-4.5); MEAN CORPUSCULAR HEMOGLOBIN 31.1 pg (27.0-33.0); MEAN CORPUSCULAR HGB CONC 31.9 g/dl (32.0-36.5); MEAN CORPUSCULAR VOLUME 97.5 fl (80.0-96.0); MONO # 0.2 K/mm3 (0.0-0.8); MONO % 4.4 % (0.0-5.0); NEUTROPHILS # 2.6 K/mm3 (1.8-7.7); NEUTROPHILS % 65.5 % (36.0-66.0); PLATELET COUNT, AUTOMATED 176 k/mm3 (150-450); RED CELL DISTRIBUTION WIDTH 13.6 % (11.5-14.5)
[2017-01-30] MEDS: MORPHINE 4 MG/ML 1ML SYRINGE IV PRN ×2 (21:10→21:40)
[2017-01-30 21:13] LABS: ALBUMIN 3.5 GM/DL (3.2-5.2); ALBUMIN/GLOBULIN RATIO 0.81 (1.00-1.93); ALKALINE PHOSPHATASE 93 U/L (45-117); ALT/SGPT 65 U/L (12-78); ANION GAP 5 MEQ/L (8-16); AST/SGOT 26 U/L (15-37); BILIRUBIN,DIRECT < 0.1 MG/DL (0.0-0.2); BILIRUBIN,TOTAL 0.1 MG/DL (0.2-1.0); BLOOD UREA NITROGEN 18 MG/DL (7-18); CALCIUM LEVEL 9.4 MG/DL (8.8-10.2); CARBON DIOXIDE LEVEL 29 MEQ/L (21-32); CHLORIDE LEVEL 108 MEQ/L (98-107); CREATININE FOR GFR 0.72 MG/DL (0.55-1.02); GLOMERULAR FILTRATION RATE > 60.0 (>45); GLUCOSE, FASTING 97 MG/DL (80-110); POTASSIUM SERUM 3.7 MEQ/L (3.5-5.1); SODIUM LEVEL 142 MEQ/L (136-145); TOTAL PROTEIN 7.8 GM/DL (6.4-8.2)
[2017-01-30] MEDS ORDERED: ISOVUE-370 76% 100ML VIAL (Q9967) As Ordered ONE (22:26)
--- NOTE | 2017-01-30 23:20 | REPUSA ---
CT of the abdomen and pelvis with contrast Clinical statement: Pain. Technique: Multiple axial CT images were obtained from the base of the lungs through the floor of the pelvis utilizing 5 mm axial slices after administration of oral and nonionic intravenous contrast. C oronal and sagittal reconstructions were also obtained. Comparison: 01/04/2017. Findings: Chest: The visualized lung bases are clear. Abdomen: The spleen, pancreas, kidneys, and adrenal glands are unremarkable. Multiple low attenuation lesions are scattered throughout the liver. The patient is status post hysterectomy. Prominence of t he extrahepatic intrahepatic biliary ducts are noted. The aorta is within normal limits. There is no evidence of abdominal lymphadenopathy or ascites. Pelvis: The bowel is unremarkable, with no obstructive or inflammatory changes. There is a small midl ine abdominal wall hernia inferior to the umbilicus. No herniating bowel is seen at this site. The ur inary bladder is catheterized. Circumferential bladder wall thickening is noted. The other pelvic str uctures appear grossly intact. There is no evidence of pelvic lymphadenopathy or ascites. Bones: There are no suspicious osseous abnormalities seen. Severe dextroscoliosis is appreciated. Sev ere multilevel degenerative disc disease is noted, most severe L1/L2, L4/L5, and L5/S1. Impression: 1. No acute abnormality to explain the patient's pain. 2. Multiple hepatic cysts, grossly stable. 3. Stable intrahepatic and extrahepatic biliary ductal dilatation, which could be iatrogenic in natur e. The patient is status post cholecystectomy. 4. No obstructive or inflammatory bowel changes. 5. Stable midline anterior abdominal wall hernia. No herniating or incarcerated bowel is seen at this site. 6. Circumferential bladder wall thickening within a catheter is bladder. Cystitis cannot be excluded. This finding is grossly stable. 7. Stable scoliosis and severe multilevel degenerative disc disease.
[2017-01-31 02:55] VITALS: BP 131/90
== END 2017-01-31 03:22 | disposition home or self-care (01) ==
LOC: EDBD 18:58 → M ED 18:58
DX: N39.0 Urinary tract infection, site not specified (principal)
CPT/HCPCS: 74177; 80048; 80076; 81001; 83690; 85025; 87088; 87186; 93041; 96374; 99284; J2405; Q9967

== ENCOUNTER → 2017-03-13 | Outpatient (REF) | payer MEDICARE, MEDICAID ==
[~2017-03-13] MED LIST changes: +AZIT-12 PO; +GUAI100S7 PO; +[UNRECOGNIZED DRUG - CODE] XX
== END ==
LOC: M SMT 17:05
PROVIDERS: ATTEND Urology
DX: N31.9 Neuromuscular dysfunction of bladder, unspecified (principal); Z79.899 Other long term (current) drug therapy

== ENCOUNTER 2017-03-29 15:52 | Emergency (ER) | payer MEDICARE, MEDICAID ==
[~2017-03-29] VITALS: Ht 157.5 cm; Wt 155.0 kg
[~2017-03-29 15:52] MED LIST changes: -AZIT-12 PO; -GUAI100S7 PO; -[UNRECOGNIZED DRUG - CODE] XX
[2017-03-29 17:49] VITALS: BP 137/68
== END 2017-03-29 17:55 | disposition home or self-care (01) ==
LOC: EDBD 15:52 → M ED 15:52
DX: T83.84XA Pain due to genitourinary prosthetic devices, implants and grafts, initial encounter (principal); N31.9 Neuromuscular dysfunction of bladder, unspecified

== ENCOUNTER 2017-04-08 08:28 | Emergency (ER) | payer MEDICARE, MEDICAID ==
[~2017-04-08] VITALS: Ht 157.5 cm; Wt 75.0 kg
[2017-04-08 08:35] VITALS: BP 142/83
[2017-04-08] MEDS ORDERED: SUDA30TA PO (08:43)
[2017-04-08] MEDS ORDERED: BACT800T5 PO (09:25)
[2017-04-08] MEDS ORDERED: BACTRIM 160MG/800MG DS TAB PO ONE (09:30)
== END 2017-04-08 10:22 | disposition home or self-care (01) ==
LOC: M ED 08:28
DX: J01.90 Acute sinusitis, unspecified (principal)

== ENCOUNTER 2017-04-20 08:58 | Emergency (ER) | payer MEDICARE, MEDICAID ==
[~2017-04-20] VITALS: Ht 149.9 cm; Wt 85.9 kg
[2017-04-20 08:59] VITALS: BP 153/83
[2017-04-20] MEDS ORDERED: AZIT-12 PO (09:44)
[2017-04-20] MEDS ORDERED: GUAI100S7 PO (09:44)
[2017-04-20] MEDS ORDERED: guaiFENesin SYRUP 200 MG/10 ML UDC PO ONE (09:45)
[2017-04-20] MEDS ORDERED: ACETAMINOPHEN 325 MG TAB PO ONE (09:45)
[2017-04-20] MEDS ORDERED: AZITHROMYCIN 250 MG TAB PO ONE (09:45)
== END 2017-04-20 10:07 | disposition home or self-care (01) ==
LOC: M ED 08:58
DX: J06.9 Acute upper respiratory infection, unspecified (principal); F41.9 Anxiety disorder, unspecified; F33.9 Major depressive disorder, recurrent, unspecified; G43.909 Migraine, unspecified, not intractable, without status migrainosus; N31.9 Neuromuscular dysfunction of bladder, unspecified; Z79.899 Other long term (current) drug therapy; Z79.01 Long term (current) use of a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; Z88.0 Allergy status to penicillin; Z88.8 Allergy status to other drugs, medicaments and biological substances; Z91.040 Latex allergy status

== ENCOUNTER 2017-05-15 08:51 | Emergency (ER) | payer MEDICARE, MEDICAID ==
[~2017-05-15] VITALS: Ht 149.9 cm; Wt 81.8 kg
[~2017-05-15 08:51] MED LIST changes: +AZIT-12 PO; +GUAI100S7 PO
[2017-05-15] MEDS ORDERED: FLEET ENEMA PR PRN (09:15)
[2017-05-15 09:37] LABS: MEAN CORPUSCULAR HEMOGLOBIN 30.7 pg (27.0-33.0); MEAN CORPUSCULAR HGB CONC 32.5 g/dl (32.0-36.5); MEAN CORPUSCULAR VOLUME 94.5 fl (80.0-96.0); RED CELL DISTRIBUTION WIDTH 14.2 % (11.5-14.5); WHITE BLOOD COUNT 6.8 10^3/uL (4.0-10.0)
[2017-05-15 09:40] LABS: CBCMD ORDERED? YES (YES)
[2017-05-15 09:56] LABS: BANDS 1 % (< 11); EOSINOPHILS 7 % (0-5)
--- NOTE | 2017-05-15 10:06 | REP ---
RIGHT SHOULDER SERIES: Three views of the right shoulder are performed. There is mild narrowing and spurring at the acromioclavicular and glenohumeral joints. I see no acute fracture or dislocation. IMPRESSION: Mild degenerative changes. Signed by Andrei Crump MD 05/15/2017 02:35 P
--- NOTE | 2017-05-15 10:07 | REP ---
RIGHT ANKLE SERIES, FOUR VIEWS: Four views of the right ankle are performed. There is no acute fracture or dislocation. There is moderate inferior calcaneal spurring. The ankle mortise is anatomic. IMPRESSION: No fracture or dislocation. Calcaneal spurring. Signed by Andrei Crump MD 05/15/2017 02:35 P
[2017-05-15 10:11] LABS: ANION GAP 8 MEQ/L (8-16); BLOOD UREA NITROGEN 18 MG/DL (7-18); CALCIUM LEVEL 9.7 MG/DL (8.8-10.2); CARBON DIOXIDE LEVEL 28 MEQ/L (21-32); CHLORIDE LEVEL 107 MEQ/L (98-107); CREATININE FOR GFR 0.84 MG/DL (0.55-1.02); GLOMERULAR FILTRATION RATE > 60.0 (>45); GLUCOSE, FASTING 113 MG/DL (80-110); POTASSIUM SERUM 3.6 MEQ/L (3.5-5.1); SODIUM LEVEL 143 MEQ/L (136-145)
[2017-05-15 11:42] VITALS: BP 122/74
== END 2017-05-15 12:05 | disposition home or self-care (01) ==
LOC: M ED 08:51
DX: N90.89 Other specified noninflammatory disorders of vulva and perineum (principal); K59.00 Constipation, unspecified; S90.01XA Contusion of right ankle, initial encounter; S40.011A Contusion of right shoulder, initial encounter; X58.XXXA Exposure to other specified factors, initial encounter; Y92.89 Other specified places as the place of occurrence of the external cause; Y93.89 Activity, other specified; Y99.8 Other external cause status; Z96.0 Presence of urogenital implants; J45.909 Unspecified asthma, uncomplicated; N31.9 Neuromuscular dysfunction of bladder, unspecified; F41.9 Anxiety disorder, unspecified; F33.9 Major depressive disorder, recurrent, unspecified; M54.9 Dorsalgia, unspecified; Z87.440 Personal history of urinary (tract) infections; Z79.899 Other long term (current) drug therapy; Z79.01 Long term (current) use of a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; Z88.0 Allergy status to penicillin; Z88.8 Allergy status to other drugs, medicaments and biological substances; Z91.040 Latex allergy status

== ENCOUNTER 2017-05-18 19:12 | Emergency (ER) | payer MEDICARE, MEDICAID ==
[~2017-05-18] VITALS: Ht 149.9 cm; Wt 48.6 kg
[2017-05-18 19:12] VITALS: BP 146/76
[2017-05-18 22:21] LABS: CALCIUM OXALATE CRYSTALS SMALL
== END 2017-05-18 23:00 | disposition home or self-care (01) ==
LOC: M ED 19:12
DX: N39.0 Urinary tract infection, site not specified (principal); N02.9 Recurrent and persistent hematuria with unspecified morphologic changes

== ENCOUNTER 2017-05-31 13:29 | Emergency (ER) | payer MEDICARE, MEDICAID ==
[~2017-05-31] VITALS: Ht 149.9 cm; Wt 72.7 kg
[2017-05-31] MEDS ORDERED: [UNRECOGNIZED DRUG - CODE] XX (15:38)
[2017-05-31] MEDS ORDERED: BACT800T5 PO (15:38)
[2017-05-31 15:43] VITALS: BP 136/72
[2017-05-31] MEDS ORDERED: BACTRIM 160MG/800MG DS TAB PO ONE (15:45)
== END 2017-05-31 16:05 | disposition home or self-care (01) ==
LOC: M ED 13:29
DX: Z45.89 Encounter for adjustment and management of other implanted devices (principal); N30.91 Cystitis, unspecified with hematuria; K59.00 Constipation, unspecified; J45.909 Unspecified asthma, uncomplicated; I25.10 Atherosclerotic heart disease of native coronary artery without angina pectoris; N31.9 Neuromuscular dysfunction of bladder, unspecified; G43.909 Migraine, unspecified, not intractable, without status migrainosus; F41.9 Anxiety disorder, unspecified; F33.9 Major depressive disorder, recurrent, unspecified; Z87.19 Personal history of other diseases of the digestive system; Z86.718 Personal history of other venous thrombosis and embolism; Z79.899 Other long term (current) drug therapy; Z79.01 Long term (current) use of a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; Z88.0 Allergy status to penicillin; Z88.8 Allergy status to other drugs, medicaments and biological substances; Z91.040 Latex allergy status

== ENCOUNTER 2017-06-06 13:28 | Emergency (ER) | payer MEDICARE, MEDICAID ==
[~2017-06-06] VITALS: Ht 149.9 cm; Wt 63.3 kg
[~2017-06-06 13:28] MED LIST changes: +[UNRECOGNIZED DRUG - CODE] XX
[2017-06-06 15:19] LABS: MEAN CORPUSCULAR HEMOGLOBIN 30.2 pg (27.0-33.0); MEAN CORPUSCULAR VOLUME 97.7 fl (80.0-96.0); PLATELET COUNT, AUTOMATED 174 10^3/uL (150-450); RED CELL DISTRIBUTION WIDTH 13.8 % (11.5-14.5); WHITE BLOOD COUNT 3.7 10^3/uL (4.0-10.0)
[2017-06-06 18:33] LABS: ALBUMIN 3.3 GM/DL (3.2-5.2); ALKALINE PHOSPHATASE 73 U/L (45-117); ALT/SGPT 39 U/L (12-78); ANION GAP 5 MEQ/L (8-16); AST/SGOT 32 U/L (7-37); BILIRUBIN,DIRECT 0.1 MG/DL (0.0-0.2); BILIRUBIN,TOTAL 0.4 MG/DL (0.2-1.0); BLOOD UREA NITROGEN 17 MG/DL (7-18); CARBON DIOXIDE LEVEL 31 MEQ/L (21-32); CHLORIDE LEVEL 103 MEQ/L (98-107); CREATININE FOR GFR 0.91 MG/DL (0.55-1.02); GLOMERULAR FILTRATION RATE > 60.0 (>45); GLUCOSE, FASTING 97 MG/DL (80-110); POTASSIUM SERUM 4.6 MEQ/L (3.5-5.1); SODIUM LEVEL 139 MEQ/L (136-145); TOTAL PROTEIN 6.6 GM/DL (6.4-8.2)
[2017-06-06 18:34] LABS: METHADONE URINE NEGATIVE (NEGATIVE)
[2017-06-06 19:57] VITALS: BP 139/82
== END 2017-06-06 22:18 | disposition home or self-care (01) ==
LOC: M ED 13:28 → EDBD 13:28 → M ED 22:18
DX: Z96.0 Presence of urogenital implants (principal); R31.9 Hematuria, unspecified; D64.9 Anemia, unspecified; F31.9 Bipolar disorder, unspecified; F22 Delusional disorders; Z79.899 Other long term (current) drug therapy; Z79.01 Long term (current) use of a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; Z88.0 Allergy status to penicillin; Z88.8 Allergy status to other drugs, medicaments and biological substances; Z91.040 Latex allergy status
CPT/HCPCS: 36415; 80048; 80076; 80307; 84443; 85027; 87088; 87186; 99284; G0480

== ENCOUNTER 2017-06-23 12:39 | Emergency (ER) | payer MEDICARE, MEDICAID ==
[~2017-06-23] VITALS: Ht 149.9 cm; Wt 59.1 kg
[2017-06-23 12:40] VITALS: BP 133/84
--- NOTE | 2017-06-23 17:39 | REP ---
Right ankle complete: 06/23/2017: Comparison: 05/15/2017. Clinical history: Trauma, lateral ankle pain. The four views show soft tissue swelling prominent about the anterolateral aspect of the ankle. The mortise joint was symmetric and preserved. I do not see evidence of a fracture of the distal tibia-fibula. There is no talar dome osteochondral defect. No Achilles insertional spur but there is a moderate sized plantar calcaneal spur and a dorsal spur in the anterior process of the talus on the lateral view. Subtalar joints intact. The talonavicular, calcaneocuboid joints normal. The visualized tarsal bones and their articulations included were unremarkable. Impression: 1. Prominent soft tissue swelling anterolateral aspect of the ankle without visible or displaced fracture, avulsion or disruption of the mortise joint. 2. Plantar calcaneal spur. No other significant finding Signed by Arthur Serra MD 06/24/2017 08:18 P
--- NOTE | 2017-06-23 17:41 | REP ---
Right foot series complete: 06/23/2017: Comparison: 12/17/2016, ankle series 06/23/2017. No findings trauma, lateral pain. There is soft tissue swelling anterolateral aspect of the ankle and hind foot. Prominent plantar calcaneal spur. A small dorsal spur on the anterior process of the talus. Talonavicular, calcaneocuboid joints normal. Tarsal bones and articulations are without fracture, subluxation. The TMT and MTP joints show degenerative changes mostly at the first MTP joint minimally at the other joints. No tarsal or metatarsal fractures. The phalanges without fracture. There are some degenerative changes at the IP joints. Impression: 1. Prominent soft tissue swelling anterolateral aspect of the ankle and hind foot without visible or displaced fracture, avulsion, subluxation or other acute finding. There are degenerative changes first MTP joint and some of the tarsal articulations and IP joints. Plantar calcaneal spur. No acute fracture. Signed by Arthur Serra MD 06/24/2017 08:18 P
== END 2017-06-23 18:19 | disposition home or self-care (01) ==
LOC: M ED 12:39
DX: S93.401A Sprain of unspecified ligament of right ankle, initial encounter (principal); X50.1XXA Overexertion from prolonged static or awkward postures, initial encounter; Y92.099 Unspecified place in other non-institutional residence as the place of occurrence of the external cause; Y93.01 Activity, walking, marching and hiking; Y99.9 Unspecified external cause status

== ENCOUNTER 2017-09-01 05:57 | Emergency (ER) | payer MEDICARE, MEDICAID | END 2017-09-01 08:56 | disposition home or self-care (01) | LOC: M ED 05:57 | DX: S93.402A Sprain of unspecified ligament of left ankle, initial encounter (principal); T83.098A Other mechanical complication of other urinary catheter, initial encounter; X58.XXXA Exposure to other specified factors, initial encounter; Y92.89 Other specified places as the place of occurrence of the external cause; J44.9 Chronic obstructive pulmonary disease, unspecified; F31.9 Bipolar disorder, unspecified; N31.9 Neuromuscular dysfunction of bladder, unspecified; Z79.899 Other long term (current) drug therapy; Z79.01 Long term (current) use of a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; Z88.0 Allergy status to penicillin; Z88.8 Allergy status to other drugs, medicaments and biological substances; Z91.040 Latex allergy status | CPT/HCPCS: 73610 ==

== ENCOUNTER 2017-09-06 21:16 | Emergency (ER) | payer MEDICARE, MEDICAID ==
[2017-09-06 22:25] LABS: APPEARANCE, URINE TURBID (CLEAR); BACTERIA, URINE AUTO 3+ (NEGATIVE); BILIRUBIN, URINE AUTO NEGATIVE (NEGATIVE); BLOOD, URINE BLOOD 3+ (NEGATIVE); COLOR, URINE RED (YELLOW); GLUCOSE, URINE (UA) AUTO NEGATIVE (NEGATIVE); KETONE, URINE AUTO NEGATIVE (NEGATIVE); LEUKOCYTE ESTERASE, URINE AUTO 2+ (NEGATIVE); NITRITE, URINE AUTO POSITIVE (NEGATIVE); PROTEIN, URINE AUTO 2+ mg/dL (NEGATIVE); RBC, URINE AUTO TNTC /HPF (0-3); SPECIFIC GRAVITY URINE AUTO 1.025 (1.002-1.035); SQUAMOUS EPITHELIAL CELL UR AU 13 /HPF (0-6); UROBILINOGEN, URINE AUTO 0.2 mg/dL (0.0-2.0); WBC, URINE AUTO TNTC /HPF (0-3)
[2017-09-06 22:27] LABS: BASO % 0.8 % (0.0-1.0); EOS # 0.2 10^3/uL (0.0-0.50); EOS % 4.1 % (0.0-3.0); HEMATOCRIT 34.3 % (36.0-47.0); HEMOGLOBIN 11.2 g/dl (12.0-16.0); IMMATURE GRANULOCYTE % 0.6 % (0-3.0); LYMPH # 2.3 10^3/uL (1.5-4.5); LYMPH % 45.9 % (24.0-44.0); MEAN CORPUSCULAR HEMOGLOBIN 29.6 pg (27.0-33.0); MEAN CORPUSCULAR HGB CONC 32.7 g/dl (32.0-36.5); MEAN CORPUSCULAR VOLUME 90.5 fl (80.0-96.0); MONO # 0.3 10^3/uL (0.0-0.8); MONO % 5.7 % (0.0-5.0); NEUTROPHILS # 2.1 10^3/uL (1.8-7.7); NEUTROPHILS % 42.9 % (36.0-66.0); RED BLOOD COUNT 3.79 10^6/uL (4.00-5.40); RED CELL DISTRIBUTION WIDTH 13.8 % (11.5-14.5); WHITE BLOOD COUNT 4.9 10^3/uL (4.0-10.0)
[2017-09-06 22:32] LABS: INR 1.11; PROTHROMBIN TIME 14.5 SECONDS (12.4-14.5)
[2017-09-06 22:39] LABS: PLATELET COUNT, AUTOMATED 155 10^3/uL (150-450); POS COUNT POS FLAG
[2017-09-06 22:46] LABS: ALBUMIN 3.6 GM/DL (3.2-5.2); ALKALINE PHOSPHATASE 77 U/L (45-117); ALT/SGPT 19 U/L (12-78); ANION GAP 8 MEQ/L (8-16); AST/SGOT 40 U/L (7-37); BILIRUBIN,DIRECT < 0.1 MG/DL (0.0-0.2); BILIRUBIN,TOTAL 0.3 MG/DL (0.2-1.0); BLOOD UREA NITROGEN 22 MG/DL (7-18); CALCIUM LEVEL 9.4 MG/DL (8.8-10.2); CARBON DIOXIDE LEVEL 28 MEQ/L (21-32); CHLORIDE LEVEL 106 MEQ/L (98-107); CREATININE FOR GFR 0.79 MG/DL (0.55-1.30); GLOMERULAR FILTRATION RATE > 60.0 (>45); GLUCOSE, FASTING 122 MG/DL (70-100); SODIUM LEVEL 142 MEQ/L (136-145); TOTAL PROTEIN 7.6 GM/DL (6.4-8.2)
[2017-09-06 22:47] LABS: POTASSIUM SERUM 5.1 MEQ/L (3.5-5.1)
[2017-09-06] MEDS: BACTRIM 160MG/800MG DS TAB PO ×2 (23:15→23:30)
== END 2017-09-06 23:56 | disposition home or self-care (01) ==
LOC: M ED 21:16
DX: N39.0 Urinary tract infection, site not specified (principal); R31.9 Hematuria, unspecified; F41.9 Anxiety disorder, unspecified; K21.9 Gastro-esophageal reflux disease without esophagitis; F31.9 Bipolar disorder, unspecified; G89.29 Other chronic pain; M54.9 Dorsalgia, unspecified; Z86.718 Personal history of other venous thrombosis and embolism; N31.9 Neuromuscular dysfunction of bladder, unspecified; Z96.0 Presence of urogenital implants; Z79.01 Long term (current) use of a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; Z79.899 Other long term (current) drug therapy; Z88.8 Allergy status to other drugs, medicaments and biological substances; Z88.0 Allergy status to penicillin; Z91.040 Latex allergy status
CPT/HCPCS: 73610

== ENCOUNTER 2017-09-21 07:28 | Emergency (ER) | payer MEDICARE, MEDICAID | END 2017-09-21 10:24 | disposition home or self-care (01) | LOC: M ED 07:28 | DX: R19.7 Diarrhea, unspecified (principal); I51.9 Heart disease, unspecified; F31.9 Bipolar disorder, unspecified; N31.9 Neuromuscular dysfunction of bladder, unspecified; Z79.01 Long term (current) use of a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; Z79.2 Long term (current) use of antibiotics; Z79.899 Other long term (current) drug therapy; Z98.890 Other specified postprocedural states; Z86.018 Personal history of other benign neoplasm | CPT/HCPCS: 87507 ==

== ENCOUNTER 2017-10-18 05:36 | Emergency (ER) | payer MEDICARE, MEDICAID | END 2017-10-18 07:39 | disposition home or self-care (01) | LOC: M ED 05:36 | DX: M25.571 Pain in right ankle and joints of right foot (principal); G89.29 Other chronic pain; N31.9 Neuromuscular dysfunction of bladder, unspecified; N39.0 Urinary tract infection, site not specified; I10 Essential (primary) hypertension; R01.1 Cardiac murmur, unspecified; R22.41 Localized swelling, mass and lump, right lower limb; J45.909 Unspecified asthma, uncomplicated; K21.9 Gastro-esophageal reflux disease without esophagitis; Z79.899 Other long term (current) drug therapy; Z88.8 Allergy status to other drugs, medicaments and biological substances; Z91.040 Latex allergy status; Z88.0 Allergy status to penicillin; Z86.69 Personal history of other diseases of the nervous system and sense organs; Z87.448 Personal history of other diseases of urinary system; Z98.890 Other specified postprocedural states | CPT/HCPCS: 99284 ==

== ENCOUNTER 2017-10-19 06:53 | Emergency (ER) | payer MEDICARE, MEDICAID ==
[2017-10-19] MEDS: BACTRIM 160MG/800MG DS TAB PO ×2 (08:56)
[2017-10-19] MEDS: FLUCONAZOLE 50MG TABLET PO (08:56)
== END 2017-10-19 10:41 | disposition home or self-care (01) ==
LOC: M ED 06:53
DX: B37.3 Candidiasis of vulva and vagina (principal); N39.0 Urinary tract infection, site not specified; N31.9 Neuromuscular dysfunction of bladder, unspecified; J45.909 Unspecified asthma, uncomplicated; K21.9 Gastro-esophageal reflux disease without esophagitis; F31.9 Bipolar disorder, unspecified; Z79.899 Other long term (current) drug therapy; Z88.8 Allergy status to other drugs, medicaments and biological substances; Z88.0 Allergy status to penicillin; Z86.718 Personal history of other venous thrombosis and embolism; Z98.890 Other specified postprocedural states; Z86.011 Personal history of benign neoplasm of the brain
CPT/HCPCS: 99283

== ENCOUNTER 2017-11-04 06:12 | Emergency (ER) | payer MEDICARE, MEDICAID ==
[2017-11-04 07:29] LABS: APPEARANCE, URINE MANUAL CLOUDY (CLEAR); BILIRUBIN, URINE MANUAL OBSCURED (NEGATIVE); BLOOD URINE MANUAL OBSCURED (NEGATIVE); COLOR, URINE MANUAL ORANGE (YELLOW); GLUCOSE, URINE (UA) MANUAL OBSCURED mg/dL (NEGATIVE); KETONE, URINE MANUAL OBSCURED mg/dL (NEGATIVE); LEUKOCYTE ESTERASE, URINE MAN OBSCURED (NEGATIVE); MICROSCOPIC INDICATED? MAN YES (NO); NITRITE, URINE MANUAL OBSCURED (NEGATIVE); PH,URINE MAN OBSCURED UNITS (5.0 - 7.0); PROTEIN, URINE MANUAL OBSCURED mg/dL (NEGATIVE); SPECIFIC GRAVITY,URINE MANUAL 1.024 (1.002-1.035); UROBILINOGEN, URINE MANUAL OBSCURED mg/dl (NORMAL)
[2017-11-04 07:40] LABS: RBC, URINE TNTC /hpf (0-3); WBC, URINE TNTC /hpf (0-3)
[2017-11-04 07:41] LABS: BACTERIA, URINE LARGE AMOUNT; HYALINE CAST, URINE NONE SEEN /lpf (0-1); MICROSCOPIC EXAM PERFORMED; SQUAMOUS EPITHELIAL CELL URINE LARGE AMOUNT /hpf (SMALL AMT)
== END 2017-11-04 08:16 | disposition home or self-care (01) ==
LOC: M ED 06:12
DX: N30.90 Cystitis, unspecified without hematuria (principal); Z96.0 Presence of urogenital implants; J45.909 Unspecified asthma, uncomplicated; R56.9 Unspecified convulsions; G43.909 Migraine, unspecified, not intractable, without status migrainosus; K21.9 Gastro-esophageal reflux disease without esophagitis; F41.9 Anxiety disorder, unspecified; F33.9 Major depressive disorder, recurrent, unspecified; Z79.899 Other long term (current) drug therapy; Z79.01 Long term (current) use of a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; Z88.0 Allergy status to penicillin; Z88.8 Allergy status to other drugs, medicaments and biological substances; Z91.040 Latex allergy status
CPT/HCPCS: 81000

== ENCOUNTER 2017-11-09 07:05 | Emergency (ER) | payer MEDICARE, MEDICAID ==
[2017-11-09 08:45] LABS: BASO % 0.6 % (0.0-1.0); EOS # 0.1 10^3/uL (0.0-0.50); EOS % 3.6 % (0.0-3.0); HEMATOCRIT 33.8 % (36.0-47.0); HEMOGLOBIN 10.8 g/dl (12.0-15.5); LYMPH # 1.1 10^3/uL (1.5-4.5); LYMPH % 32.7 % (24.0-44.0); MEAN CORPUSCULAR HEMOGLOBIN 29.5 pg (27.0-33.0); MEAN CORPUSCULAR VOLUME 92.3 fl (80.0-96.0); MONO # 0.2 10^3/uL (0.0-0.8); MONO % 7.2 % (0.0-5.0); NEUTROPHILS # 1.9 10^3/uL (1.8-7.7); NEUTROPHILS % 55.9 % (36.0-66.0); PLATELET COUNT, AUTOMATED 179 10^3/uL (150-450); RED BLOOD COUNT 3.66 10^6/uL (4.00-5.40); RED CELL DISTRIBUTION WIDTH 14.6 % (11.5-14.5); WHITE BLOOD COUNT 3.3 10^3/uL (4.0-10.0)
[2017-11-09] MEDS: NS 1,000 ML IV (08:45)
[2017-11-09 09:29] LABS: ANION GAP 6 MEQ/L (8-16); BLOOD UREA NITROGEN 13 MG/DL (7-18); CALCIUM LEVEL 8.8 MG/DL (8.8-10.2); CARBON DIOXIDE LEVEL 27 MEQ/L (21-32); CHLORIDE LEVEL 111 MEQ/L (98-107); CREATININE FOR GFR 0.74 MG/DL (0.55-1.30); GLOMERULAR FILTRATION RATE > 60.0 (>45); GLUCOSE, FASTING 95 MG/DL (70-100); POTASSIUM SERUM 3.7 MEQ/L (3.5-5.1); SODIUM LEVEL 144 MEQ/L (136-145)
[2017-11-09 09:30] LABS: ALBUMIN 3.3 GM/DL (3.2-5.2); ALBUMIN/GLOBULIN RATIO 0.79 (1.00-1.93); ALKALINE PHOSPHATASE 78 U/L (45-117); ALT/SGPT 13 U/L (12-78); AMYLASE 43 U/L (25-115); AST/SGOT 13 U/L (7-37); BILIRUBIN,TOTAL 0.2 MG/DL (0.2-1.0); TOTAL PROTEIN 7.5 GM/DL (6.4-8.2)
[2017-11-09 09:31] LABS: BILIRUBIN,DIRECT < 0.1 MG/DL (0.0-0.2); LIPASE 118 U/L (73-393)
[2017-11-09] MEDS: MAGNESIUM CITRATE 300 ML BTL PO (10:15)
== END 2017-11-09 14:00 | disposition home or self-care (01) ==
LOC: M ED 07:05
DX: R19.7 Diarrhea, unspecified (principal); F31.9 Bipolar disorder, unspecified; N31.9 Neuromuscular dysfunction of bladder, unspecified; Z79.01 Long term (current) use of a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; Z87.440 Personal history of urinary (tract) infections; Z86.69 Personal history of other diseases of the nervous system and sense organs; Z87.19 Personal history of other diseases of the digestive system; Z88.8 Allergy status to other drugs, medicaments and biological substances; Z91.040 Latex allergy status; Z88.0 Allergy status to penicillin; Z79.899 Other long term (current) drug therapy
CPT/HCPCS: 82150

== ENCOUNTER 2017-11-13 07:53 | Emergency (ER) | payer MEDICARE, MEDICAID | END 2017-11-13 09:50 | disposition home or self-care (01) | LOC: M ED 07:53 | DX: T45.515A Adverse effect of a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, initial encounter (principal); Y92.9 Unspecified place or not applicable; Y93.9 Activity, unspecified; Z96.0 Presence of urogenital implants; F31.9 Bipolar disorder, unspecified; Z79.899 Other long term (current) drug therapy; Z88.8 Allergy status to other drugs, medicaments and biological substances; Z91.040 Latex allergy status; Z88.0 Allergy status to penicillin | CPT/HCPCS: 99284 ==

== ENCOUNTER 2017-11-18 11:56 | Emergency (ER) | payer MEDICARE, MEDICAID | END 2017-11-18 14:19 | disposition home or self-care (01) | LOC: M ED 11:56 | DX: R30.0 Dysuria (principal); Z96.0 Presence of urogenital implants; N31.9 Neuromuscular dysfunction of bladder, unspecified; K21.9 Gastro-esophageal reflux disease without esophagitis; M54.9 Dorsalgia, unspecified; G43.909 Migraine, unspecified, not intractable, without status migrainosus; F31.9 Bipolar disorder, unspecified; F41.9 Anxiety disorder, unspecified; Z88.8 Allergy status to other drugs, medicaments and biological substances; Z88.0 Allergy status to penicillin; Z91.040 Latex allergy status; Z79.899 Other long term (current) drug therapy; Z79.01 Long term (current) use of a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 | CPT/HCPCS: 87088; 87186 ==

== ENCOUNTER 2017-11-29 04:47 | Emergency (ER) | payer MEDICARE, MEDICAID | END 2017-11-29 06:59 | disposition home or self-care (01) | LOC: M ED 04:47 | DX: T83.098A Other mechanical complication of other urinary catheter, initial encounter (principal); Y92.9 Unspecified place or not applicable; Y93.9 Activity, unspecified; N31.9 Neuromuscular dysfunction of bladder, unspecified; Z86.718 Personal history of other venous thrombosis and embolism; D64.9 Anemia, unspecified; F31.9 Bipolar disorder, unspecified; Z79.899 Other long term (current) drug therapy; Z88.0 Allergy status to penicillin; Z88.8 Allergy status to other drugs, medicaments and biological substances; Z91.040 Latex allergy status | CPT/HCPCS: 51702 ==

== ENCOUNTER 2017-12-01 14:20 | Emergency (ER) | payer MEDICARE, MEDICAID | END 2017-12-01 16:30 | disposition home or self-care (01) | LOC: M ED 14:20 | DX: T83.098A Other mechanical complication of other urinary catheter, initial encounter (principal); Z96.0 Presence of urogenital implants; Z79.899 Other long term (current) drug therapy; Z79.01 Long term (current) use of a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; Z88.0 Allergy status to penicillin; Z88.8 Allergy status to other drugs, medicaments and biological substances; Z91.040 Latex allergy status | CPT/HCPCS: 99283 ==

== ENCOUNTER → 2018-01-09 | Outpatient (REF) | payer MEDICARE, MEDICAID | LOC: M SMT 16:54 | DX: R82.90 Unspecified abnormal findings in urine (principal) | CPT/HCPCS: 87186 ==

== ENCOUNTER 2018-01-19 17:47 | Emergency (ER) | payer MEDICARE, MEDICAID ==
[2018-01-19 18:17] LABS: BASO % 0.3 % (0.0-1.0); EOS # 0.2 10^3/uL (0.0-0.50); EOS % 2.1 % (0.0-3.0); HEMATOCRIT 36.6 % (36.0-47.0); HEMOGLOBIN 11.6 g/dl (12.0-15.5); IMMATURE GRANULOCYTE % 0.3 % (0-3.0); LYMPH # 1.7 10^3/uL (1.5-4.5); LYMPH % 23.3 % (24.0-44.0); MEAN CORPUSCULAR HEMOGLOBIN 28.6 pg (27.0-33.0); MEAN CORPUSCULAR HGB CONC 31.7 g/dl (32.0-36.5); MEAN CORPUSCULAR VOLUME 90.4 fl (80.0-96.0); MONO # 0.3 10^3/uL (0.0-0.8); MONO % 4.5 % (0.0-5.0); NEUTROPHILS # 4.9 10^3/uL (1.8-7.7); NEUTROPHILS % 69.5 % (36.0-66.0); PLATELET COUNT, AUTOMATED 219 10^3/uL (150-450); RED BLOOD COUNT 4.05 10^6/uL (4.00-5.40); RED CELL DISTRIBUTION WIDTH 14.8 % (11.5-14.5); WHITE BLOOD COUNT 7.1 10^3/uL (4.0-10.0)
[2018-01-19] MEDS: PANTOPRAZOLE 40MG INJ (PROTONIX) (C9113) IV (18:27)
[2018-01-19] MEDS: PROMETHAZINE INJ 25 MG/ML VIAL (J2550) IV (18:27)
[2018-01-19] MEDS: LOPERAMIDE 2 MG CAP PO (18:27)
[2018-01-19] MEDS: NS 1,000 ML IV (18:27)
[2018-01-19 18:45] LABS: ALBUMIN 3.5 GM/DL (3.2-5.2); ALBUMIN/GLOBULIN RATIO 0.76 (1.00-1.93); ALKALINE PHOSPHATASE 83 U/L (45-117); ALT/SGPT 19 U/L (12-78); AMYLASE 85 U/L (25-115); ANION GAP 9 MEQ/L (8-16); AST/SGOT 17 U/L (7-37); BILIRUBIN,DIRECT < 0.1 MG/DL (0.0-0.2); BILIRUBIN,TOTAL 0.2 MG/DL (0.2-1.0); BLOOD UREA NITROGEN 16 MG/DL (7-18); CALCIUM LEVEL 9.2 MG/DL (8.8-10.2); CARBON DIOXIDE LEVEL 25 MEQ/L (21-32); CHLORIDE LEVEL 107 MEQ/L (98-107); CREATININE FOR GFR 0.73 MG/DL (0.55-1.30); GLOMERULAR FILTRATION RATE > 60.0 (>45); GLUCOSE, FASTING 110 MG/DL (70-100); LIPASE 231 U/L (73-393); POTASSIUM SERUM 3.7 MEQ/L (3.5-5.1); SODIUM LEVEL 141 MEQ/L (136-145); TOTAL PROTEIN 8.1 GM/DL (6.4-8.2)
== END 2018-01-19 20:53 | disposition home or self-care (01) ==
LOC: M ED 17:47
DX: R19.7 Diarrhea, unspecified (principal); Z88.8 Allergy status to other drugs, medicaments and biological substances; Z88.0 Allergy status to penicillin; Z91.040 Latex allergy status; Z79.899 Other long term (current) drug therapy; Z79.01 Long term (current) use of a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
CPT/HCPCS: C9113

== ENCOUNTER 2018-01-27 07:34 | Emergency (ER) | payer MEDICARE, MEDICAID | END 2018-01-27 10:00 | disposition home or self-care (01) | LOC: M ED 07:34 | DX: T83.038A Leakage of other urinary catheter, initial encounter (principal); Y73.2 Prosthetic and other implants, materials and accessory gastroenterology and urology devices associated with adverse incidents; M25.579 Pain in unspecified ankle and joints of unspecified foot; G89.29 Other chronic pain; J45.909 Unspecified asthma, uncomplicated; J44.9 Chronic obstructive pulmonary disease, unspecified; G43.909 Migraine, unspecified, not intractable, without status migrainosus; N31.9 Neuromuscular dysfunction of bladder, unspecified; K21.9 Gastro-esophageal reflux disease without esophagitis; M54.9 Dorsalgia, unspecified; F31.9 Bipolar disorder, unspecified; Z86.718 Personal history of other venous thrombosis and embolism; Z79.899 Other long term (current) drug therapy; Z79.01 Long term (current) use of a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; Z88.8 Allergy status to other drugs, medicaments and biological substances; Z88.0 Allergy status to penicillin; Z88.1 Allergy status to other antibiotic agents; Z91.040 Latex allergy status | CPT/HCPCS: 51702 ==

== ENCOUNTER 2018-01-29 08:52 | Emergency (ER) | payer MEDICARE, MEDICAID | END 2018-01-29 11:29 | disposition home or self-care (01) | LOC: M ED 08:52 | DX: R31.9 Hematuria, unspecified (principal); Z79.899 Other long term (current) drug therapy; Z79.01 Long term (current) use of a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; Z88.8 Allergy status to other drugs, medicaments and biological substances; Z88.0 Allergy status to penicillin; Z91.040 Latex allergy status; Z88.1 Allergy status to other antibiotic agents; Z96.0 Presence of urogenital implants; Z86.19 Personal history of other infectious and parasitic diseases | CPT/HCPCS: 99283; 99284 ==

== ENCOUNTER 2018-01-29 19:50 | Emergency (ER) | payer MEDICARE, MEDICAID | END 2018-01-29 22:13 | disposition home or self-care (01) | LOC: M ED 19:50 | DX: Z46.6 Encounter for fitting and adjustment of urinary device (principal); J45.909 Unspecified asthma, uncomplicated; F31.9 Bipolar disorder, unspecified; N31.9 Neuromuscular dysfunction of bladder, unspecified; Z79.899 Other long term (current) drug therapy; Z79.01 Long term (current) use of a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; Z88.0 Allergy status to penicillin; Z88.8 Allergy status to other drugs, medicaments and biological substances; Z91.040 Latex allergy status | CPT/HCPCS: 99284 ==

== ENCOUNTER 2018-02-12 07:34 | Emergency (ER) | payer MEDICARE, MEDICAID | END 2018-02-12 09:48 | disposition home or self-care (01) | LOC: M ED 07:34 | DX: R09.81 Nasal congestion (principal); G43.909 Migraine, unspecified, not intractable, without status migrainosus; F31.9 Bipolar disorder, unspecified; N31.9 Neuromuscular dysfunction of bladder, unspecified; Z96.0 Presence of urogenital implants; Z79.899 Other long term (current) drug therapy; Z88.8 Allergy status to other drugs, medicaments and biological substances; Z88.0 Allergy status to penicillin | CPT/HCPCS: 99284 ==

== ENCOUNTER 2018-03-01 08:12 | Emergency (ER) | payer MEDICARE, MEDICAID | END 2018-03-01 11:34 | disposition home or self-care (01) | LOC: M ED 08:12 | DX: R19.7 Diarrhea, unspecified (principal); K21.9 Gastro-esophageal reflux disease without esophagitis; F31.9 Bipolar disorder, unspecified | CPT/HCPCS: 87507 ==

== ENCOUNTER 2018-03-02 05:24 | Emergency (ER) | payer MEDICARE, MEDICAID ==
[2018-03-02 06:53] LABS: BASO % 0.2 % (0.0-1.0); EOS # 0.2 10^3/uL (0.0-0.50); EOS % 3.2 % (0.0-3.0); HEMATOCRIT 34.9 % (36.0-47.0); HEMOGLOBIN 10.6 g/dl (12.0-15.5); IMMATURE GRANULOCYTE % 0.2 % (0-3.0); LYMPH # 1.3 10^3/uL (1.5-4.5); LYMPH % 28.4 % (24.0-44.0); MEAN CORPUSCULAR HEMOGLOBIN 27.8 pg (27.0-33.0); MEAN CORPUSCULAR HGB CONC 30.4 g/dl (32.0-36.5); MEAN CORPUSCULAR VOLUME 91.6 fl (80.0-96.0); MONO # 0.3 10^3/uL (0.0-0.8); NEUTROPHILS # 2.9 10^3/uL (1.8-7.7); PLATELET COUNT, AUTOMATED 230 10^3/uL (150-450); RED BLOOD COUNT 3.81 10^6/uL (4.00-5.40); RED CELL DISTRIBUTION WIDTH 15.4 % (11.5-14.5); WHITE BLOOD COUNT 4.7 10^3/uL (4.0-10.0)
[2018-03-02 07:14] LABS: POS COUNT POS FLAG
[2018-03-02 07:31] LABS: ALBUMIN 3.4 GM/DL (3.2-5.2); ALBUMIN/GLOBULIN RATIO 0.85 (1.00-1.93); ALKALINE PHOSPHATASE 89 U/L (45-117); ALT/SGPT 19 U/L (12-78); ANION GAP 6 MEQ/L (8-16); AST/SGOT 23 U/L (7-37); BILIRUBIN,TOTAL 0.4 MG/DL (0.2-1.0); BLOOD UREA NITROGEN 17 MG/DL (7-18); CALCIUM LEVEL 9.1 MG/DL (8.8-10.2); CARBON DIOXIDE LEVEL 28 MEQ/L (21-32); CHLORIDE LEVEL 110 MEQ/L (98-107); CREATININE FOR GFR 0.72 MG/DL (0.55-1.30); GLOMERULAR FILTRATION RATE > 60.0 (>45); GLUCOSE, FASTING 95 MG/DL (70-100); POTASSIUM SERUM 4.4 MEQ/L (3.5-5.1); SODIUM LEVEL 144 MEQ/L (136-145); TOTAL PROTEIN 7.4 GM/DL (6.4-8.2)
== END 2018-03-02 08:32 | disposition home or self-care (01) ==
LOC: M ED 05:24
DX: D64.9 Anemia, unspecified (principal); R19.7 Diarrhea, unspecified; J44.9 Chronic obstructive pulmonary disease, unspecified; J45.909 Unspecified asthma, uncomplicated; N31.9 Neuromuscular dysfunction of bladder, unspecified; F31.9 Bipolar disorder, unspecified; Z88.8 Allergy status to other drugs, medicaments and biological substances; Z91.040 Latex allergy status; Z88.0 Allergy status to penicillin; Z79.01 Long term (current) use of a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; Z79.899 Other long term (current) drug therapy
CPT/HCPCS: 80053

== ENCOUNTER 2018-03-05 06:32 | Emergency (ER) | payer MEDICARE, MEDICAID ==
[2018-03-05 07:57] LABS: BASO % 0.2 % (0.0-1.0); EOS # 0.1 10^3/uL (0.0-0.50); EOS % 2.9 % (0.0-3.0); HEMATOCRIT 35.2 % (36.0-47.0); HEMOGLOBIN 10.6 g/dl (12.0-15.5); IMMATURE GRANULOCYTE % 0.2 % (0-3.0); LYMPH # 1.1 10^3/uL (1.5-4.5); MEAN CORPUSCULAR HEMOGLOBIN 27.5 pg (27.0-33.0); MEAN CORPUSCULAR HGB CONC 30.1 g/dl (32.0-36.5); MEAN CORPUSCULAR VOLUME 91.2 fl (80.0-96.0); MONO # 0.3 10^3/uL (0.0-0.8); MONO % 5.7 % (0.0-5.0); NEUTROPHILS # 3.1 10^3/uL (1.8-7.7); PLATELET COUNT, AUTOMATED 229 10^3/uL (150-450); RED BLOOD COUNT 3.86 10^6/uL (4.00-5.40); WHITE BLOOD COUNT 4.6 10^3/uL (4.0-10.0)
[2018-03-05 08:28] LABS: ANION GAP 8 MEQ/L (8-16); BLOOD UREA NITROGEN 17 MG/DL (7-18); CALCIUM LEVEL 9.1 MG/DL (8.8-10.2); CARBON DIOXIDE LEVEL 27 MEQ/L (21-32); CHLORIDE LEVEL 109 MEQ/L (98-107); GLOMERULAR FILTRATION RATE > 60.0 (>45); GLUCOSE, FASTING 105 MG/DL (70-100); POTASSIUM SERUM 4.1 MEQ/L (3.5-5.1); SODIUM LEVEL 144 MEQ/L (136-145)
== END 2018-03-05 12:01 | disposition home or self-care (01) ==
LOC: M ED 06:32
DX: S92.151A Displaced avulsion fracture (chip fracture) of right talus, initial encounter for closed fracture (principal); W19.XXXA Unspecified fall, initial encounter; Y92.89 Other specified places as the place of occurrence of the external cause; R19.7 Diarrhea, unspecified; T83.011A Breakdown (mechanical) of indwelling urethral catheter, initial encounter; Y84.6 Urinary catheterization as the cause of abnormal reaction of the patient, or of later complication, without mention of misadventure at the time of the procedure; Z96.0 Presence of urogenital implants; K21.9 Gastro-esophageal reflux disease without esophagitis; N31.9 Neuromuscular dysfunction of bladder, unspecified; R56.9 Unspecified convulsions; J44.9 Chronic obstructive pulmonary disease, unspecified; Z86.718 Personal history of other venous thrombosis and embolism; G43.909 Migraine, unspecified, not intractable, without status migrainosus; M54.9 Dorsalgia, unspecified; Z79.899 Other long term (current) drug therapy; Z79.01 Long term (current) use of a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; Z88.8 Allergy status to other drugs, medicaments and biological substances; Z88.0 Allergy status to penicillin; Z91.040 Latex allergy status; Z87.440 Personal history of urinary (tract) infections
CPT/HCPCS: 73610

== ENCOUNTER 2018-03-19 06:27 | Emergency (ER) | payer MEDICARE, MEDICAID ==
[2018-03-19 08:30] LABS: BASO % 0.2 % (0.0-1.0); EOS # 0.2 10^3/uL (0.0-0.50); EOS % 3.5 % (0.0-3.0); HEMATOCRIT 34.8 % (36.0-47.0); HEMOGLOBIN 10.7 g/dl (12.0-15.5); IMMATURE GRANULOCYTE % 0.2 % (0-3.0); LYMPH # 1.3 10^3/uL (1.5-4.5); LYMPH % 29.2 % (24.0-44.0); MEAN CORPUSCULAR HEMOGLOBIN 27.6 pg (27.0-33.0); MEAN CORPUSCULAR HGB CONC 30.7 g/dl (32.0-36.5); MEAN CORPUSCULAR VOLUME 89.9 fl (80.0-96.0); MONO # 0.3 10^3/uL (0.0-0.8); MONO % 5.9 % (0.0-5.0); NEUTROPHILS # 2.8 10^3/uL (1.8-7.7); PLATELET COUNT, AUTOMATED 191 10^3/uL (150-450); RED BLOOD COUNT 3.87 10^6/uL (4.00-5.40); RED CELL DISTRIBUTION WIDTH 14.8 % (11.5-14.5); WHITE BLOOD COUNT 4.6 10^3/uL (4.0-10.0)
[2018-03-19 08:56] LABS: ANION GAP 7 MEQ/L (8-16); BLOOD UREA NITROGEN 22 MG/DL (7-18); CALCIUM LEVEL 8.7 MG/DL (8.8-10.2); CARBON DIOXIDE LEVEL 30 MEQ/L (21-32); CHLORIDE LEVEL 109 MEQ/L (98-107); CREATININE FOR GFR 0.73 MG/DL (0.55-1.30); GLOMERULAR FILTRATION RATE > 60.0 (>45); GLUCOSE, FASTING 85 MG/DL (70-100); POTASSIUM SERUM 3.9 MEQ/L (3.5-5.1); SODIUM LEVEL 146 MEQ/L (136-145)
[2018-03-19 09:18] LABS: AMORPHOUS SEDIMENT MODERATE (NEGATIVE); APPEARANCE, URINE CLOUDY (CLEAR); BACTERIA, URINE AUTO NEGATIVE (NEGATIVE); BILIRUBIN, URINE AUTO NEGATIVE (NEGATIVE); BLOOD, URINE BLOOD 3+ (NEGATIVE); COLOR, URINE YELLOW (YELLOW); GLUCOSE, URINE (UA) AUTO NEGATIVE (NEGATIVE); KETONE, URINE AUTO NEGATIVE (NEGATIVE); LEUKOCYTE ESTERASE, URINE AUTO 3+ (NEGATIVE); NITRITE, URINE AUTO NEGATIVE (NEGATIVE); PROTEIN, URINE AUTO 2+ mg/dL (NEGATIVE); RBC, URINE AUTO TNTC /HPF (0-3); SPECIFIC GRAVITY URINE AUTO 1.018 (1.002-1.035); SQUAMOUS EPITHELIAL CELL UR AU 4 /HPF (0-6); UROBILINOGEN, URINE AUTO 0.2 mg/dL (0.0-2.0); WBC, URINE AUTO 23 /HPF (0-3); YEAST LIKE CELL URINE AUTO SMALL
== END 2018-03-19 10:27 | disposition home or self-care (01) ==
LOC: M ED 06:27
DX: R31.9 Hematuria, unspecified (principal); Z96.0 Presence of urogenital implants; J44.9 Chronic obstructive pulmonary disease, unspecified; K21.9 Gastro-esophageal reflux disease without esophagitis; N31.9 Neuromuscular dysfunction of bladder, unspecified; Z79.899 Other long term (current) drug therapy; Z79.01 Long term (current) use of a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; Z88.0 Allergy status to penicillin; Z88.8 Allergy status to other drugs, medicaments and biological substances; Z91.040 Latex allergy status
CPT/HCPCS: 80048

== ENCOUNTER 2018-04-25 14:20 | Emergency (ER) | payer MEDICARE, MEDICAID | END 2018-04-25 15:20 | disposition home or self-care (01) | LOC: M ED 14:20 | DX: Z45.89 Encounter for adjustment and management of other implanted devices (principal); N31.9 Neuromuscular dysfunction of bladder, unspecified; Z79.899 Other long term (current) drug therapy; Z79.01 Long term (current) use of a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; Z88.0 Allergy status to penicillin; Z88.8 Allergy status to other drugs, medicaments and biological substances; Z91.040 Latex allergy status | CPT/HCPCS: 51702 ==

== ENCOUNTER 2018-04-28 02:30 | Emergency (ER) | payer MEDICARE, MEDICAID | END 2018-04-28 04:32 | disposition home or self-care (01) | LOC: M ED 02:30 | DX: Z46.6 Encounter for fitting and adjustment of urinary device (principal); N31.9 Neuromuscular dysfunction of bladder, unspecified; J45.909 Unspecified asthma, uncomplicated; Z79.01 Long term (current) use of a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; Z79.899 Other long term (current) drug therapy; Z88.8 Allergy status to other drugs, medicaments and biological substances; Z88.0 Allergy status to penicillin; Z91.040 Latex allergy status | CPT/HCPCS: 51702 ==

== ENCOUNTER 2018-04-29 19:30 | Emergency (ER) | payer MEDICARE, MEDICAID ==
[2018-04-29 21:09] LABS: BASO % 0.5 % (0.0-1.0); EOS # 0.2 10^3/uL (0.0-0.50); EOS % 3.8 % (0.0-3.0); HEMATOCRIT 34.4 % (36.0-47.0); HEMOGLOBIN 10.6 g/dl (12.0-15.5); IMMATURE GRANULOCYTE % 0.3 % (0-3.0); LYMPH % 34.1 % (24.0-44.0); MEAN CORPUSCULAR HEMOGLOBIN 27.1 pg (27.0-33.0); MEAN CORPUSCULAR HGB CONC 30.8 g/dl (32.0-36.5); MONO # 0.4 10^3/uL (0.0-0.8); MONO % 6.7 % (0.0-5.0); NEUTROPHILS # 3.2 10^3/uL (1.8-7.7); NEUTROPHILS % 54.6 % (36.0-66.0); PLATELET COUNT, AUTOMATED 215 10^3/uL (150-450); RED BLOOD COUNT 3.91 10^6/uL (4.00-5.40); RED CELL DISTRIBUTION WIDTH 15.9 % (11.5-14.5); WHITE BLOOD COUNT 5.8 10^3/uL (4.0-10.0)
[2018-04-29 21:16] LABS: KETONE, URINE AUTO RFX NEGATIVE (NEGATIVE); MUCUS, URINE RFX SMALL (NEGATIVE); NITRITE, URINE AUTO RFX NEGATIVE (NEGATIVE); RBC, URINE AUTO RFX 21 /HPF (0-3); SPECIFIC GRAVITY UR AUTO RFX 1.033 (1.002-1.035); SQUAM EPITHELIAL CELL UR AURFX 6 /HPF (0-6)
[2018-04-29 21:33] LABS: LACTIC ACID SEPSIS PROTOCOL 1.9 MMOL/L (0.4-2.0)
[2018-04-29 21:34] LABS: ALBUMIN 3.2 GM/DL (3.2-5.2); ALBUMIN/GLOBULIN RATIO 0.78 (1.00-1.93); ALKALINE PHOSPHATASE 93 U/L (45-117); ALT/SGPT 26 U/L (12-78); ANION GAP 7 MEQ/L (8-16); AST/SGOT 21 U/L (7-37); BILIRUBIN,DIRECT < 0.1 MG/DL (0.0-0.2); BILIRUBIN,TOTAL 0.1 MG/DL (0.2-1.0); BLOOD UREA NITROGEN 18 MG/DL (7-18); CARBON DIOXIDE LEVEL 28 MEQ/L (21-32); CHLORIDE LEVEL 109 MEQ/L (98-107); CREATININE FOR GFR 0.86 MG/DL (0.55-1.30); GLOMERULAR FILTRATION RATE > 60.0 (>45); GLUCOSE, FASTING 98 MG/DL (70-100); POTASSIUM SERUM 3.5 MEQ/L (3.5-5.1); SODIUM LEVEL 144 MEQ/L (136-145); TOTAL PROTEIN 7.3 GM/DL (6.4-8.2)
[2018-04-29 21:39] LABS: LEUKOCYTE ESTERASE UR AUTO RFX 3+ (NEGATIVE); WBC, URINE AUTO RFX 55 /HPF (0-3)
== END 2018-04-30 00:45 | disposition home or self-care (01) ==
LOC: M ED 04-30 00:45
DX: R10.31 Right lower quadrant pain (principal); N31.9 Neuromuscular dysfunction of bladder, unspecified; Z96.0 Presence of urogenital implants; Z79.899 Other long term (current) drug therapy; Z79.01 Long term (current) use of a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; Z88.0 Allergy status to penicillin; Z88.5 Allergy status to narcotic agent; Z88.8 Allergy status to other drugs, medicaments and biological substances; Z91.040 Latex allergy status
CPT/HCPCS: 74176

== ENCOUNTER 2018-05-16 07:51 | Emergency (ER) | payer MEDICARE, MEDICAID ==
[2018-05-16] MEDS: NS 1,000 ML IV (08:38)
[2018-05-16 08:46] LABS: BASO % 0.4 % (0.0-1.0); EOS # 0.1 10^3/uL (0.0-0.50); EOS % 1.8 % (0.0-3.0); HEMATOCRIT 35.4 % (36.0-47.0); IMMATURE GRANULOCYTE % 0.4 % (0-3.0); LYMPH # 1.5 10^3/uL (1.5-4.5); LYMPH % 26.7 % (24.0-44.0); MEAN CORPUSCULAR HEMOGLOBIN 27.2 pg (27.0-33.0); MEAN CORPUSCULAR HGB CONC 31.1 g/dl (32.0-36.5); MEAN CORPUSCULAR VOLUME 87.4 fl (80.0-96.0); MONO # 0.3 10^3/uL (0.0-0.8); MONO % 5.5 % (0.0-5.0); NEUTROPHILS # 3.6 10^3/uL (1.8-7.7); NEUTROPHILS % 65.2 % (36.0-66.0); PLATELET COUNT, AUTOMATED 224 10^3/uL (150-450); RED BLOOD COUNT 4.05 10^6/uL (4.00-5.40); RED CELL DISTRIBUTION WIDTH 16.3 % (11.5-14.5); WHITE BLOOD COUNT 5.5 10^3/uL (4.0-10.0)
[2018-05-16 09:18] LABS: BLOOD UREA NITROGEN 19 MG/DL (7-18); CREATININE FOR GFR 0.88 MG/DL (0.55-1.30); GLUCOSE, FASTING 119 MG/DL (70-100)
[2018-05-16 09:19] LABS: LACTIC ACID SEPSIS PROTOCOL 1.7 MMOL/L (0.4-2.0)
[2018-05-16 09:19] LABS: ALBUMIN 3.6 GM/DL (3.2-5.2); ALBUMIN/GLOBULIN RATIO 0.97 (1.00-1.93); ALKALINE PHOSPHATASE 94 U/L (45-117); ALT/SGPT 19 U/L (12-78); ANION GAP 8 MEQ/L (8-16); AST/SGOT 13 U/L (7-37); BILIRUBIN,DIRECT < 0.1 MG/DL (0.0-0.2); BILIRUBIN,TOTAL 0.2 MG/DL (0.2-1.0); CALCIUM LEVEL 9.5 MG/DL (8.8-10.2); CARBON DIOXIDE LEVEL 28 MEQ/L (21-32); CHLORIDE LEVEL 108 MEQ/L (98-107); GLOMERULAR FILTRATION RATE > 60.0 (>45); LIPASE 186 U/L (73-393); SODIUM LEVEL 144 MEQ/L (136-145); TOTAL PROTEIN 7.3 GM/DL (6.4-8.2)
== END 2018-05-16 11:25 | disposition home or self-care (01) ==
LOC: M ED 07:51
DX: R19.7 Diarrhea, unspecified (principal); Z46.6 Encounter for fitting and adjustment of urinary device; K21.9 Gastro-esophageal reflux disease without esophagitis; Z88.8 Allergy status to other drugs, medicaments and biological substances; Z91.040 Latex allergy status; Z88.0 Allergy status to penicillin; Z79.899 Other long term (current) drug therapy
CPT/HCPCS: 83690

== ENCOUNTER 2018-05-17 06:13 | Emergency (ER) | payer MEDICARE, MEDICAID | END 2018-05-17 08:40 | disposition home or self-care (01) | LOC: M ED 06:13 | DX: R19.7 Diarrhea, unspecified (principal); Z46.6 Encounter for fitting and adjustment of urinary device; N31.9 Neuromuscular dysfunction of bladder, unspecified; R51 Headache; J44.9 Chronic obstructive pulmonary disease, unspecified; K21.9 Gastro-esophageal reflux disease without esophagitis; F31.9 Bipolar disorder, unspecified; Z86.718 Personal history of other venous thrombosis and embolism; M54.5 Low back pain; Z79.899 Other long term (current) drug therapy; Z79.01 Long term (current) use of a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; Z88.8 Allergy status to other drugs, medicaments and biological substances; Z91.040 Latex allergy status; Z88.0 Allergy status to penicillin | CPT/HCPCS: 87507 ==

== ENCOUNTER 2018-05-20 17:06 | Emergency (ER) | payer MEDICARE, MEDICAID ==
[2018-05-20 18:53] LABS: BASO % 0.3 % (0.0-1.0); EOS # 0.1 10^3/uL (0.0-0.50); EOS % 1.6 % (0.0-3.0); HEMATOCRIT 35.8 % (36.0-47.0); HEMOGLOBIN 10.8 g/dl (12.0-15.5); IMMATURE GRANULOCYTE % 0.1 % (0-3.0); LYMPH % 14.5 % (24.0-44.0); MEAN CORPUSCULAR HEMOGLOBIN 26.7 pg (27.0-33.0); MEAN CORPUSCULAR HGB CONC 30.2 g/dl (32.0-36.5); MEAN CORPUSCULAR VOLUME 88.4 fl (80.0-96.0); MONO # 0.3 10^3/uL (0.0-0.8); MONO % 4.6 % (0.0-5.0); NEUTROPHILS # 5.5 10^3/uL (1.8-7.7); NEUTROPHILS % 78.9 % (36.0-66.0); PLATELET COUNT, AUTOMATED 210 10^3/uL (150-450); RED BLOOD COUNT 4.05 10^6/uL (4.00-5.40); RED CELL DISTRIBUTION WIDTH 16.3 % (11.5-14.5)
[2018-05-20 19:19] LABS: ANION GAP 9 MEQ/L (8-16); BLOOD UREA NITROGEN 14 MG/DL (7-18); CALCIUM LEVEL 8.7 MG/DL (8.8-10.2); CARBON DIOXIDE LEVEL 27 MEQ/L (21-32); CHLORIDE LEVEL 108 MEQ/L (98-107); CREATININE FOR GFR 0.69 MG/DL (0.55-1.30); GLOMERULAR FILTRATION RATE > 60.0 (>45); GLUCOSE, FASTING 110 MG/DL (70-100); SODIUM LEVEL 144 MEQ/L (136-145)
[2018-05-26 14:15] LABS: BEDSIDE GLUCOSE 134 MG/DL (80-115)
== END 2018-05-20 20:40 | disposition home or self-care (01) ==
LOC: M ED 17:06
DX: R53.1 Weakness (principal); K21.9 Gastro-esophageal reflux disease without esophagitis; Z87.440 Personal history of urinary (tract) infections; Z86.718 Personal history of other venous thrombosis and embolism; Z88.8 Allergy status to other drugs, medicaments and biological substances; Z91.040 Latex allergy status; Z88.0 Allergy status to penicillin; Z96.0 Presence of urogenital implants
CPT/HCPCS: 80048

== ENCOUNTER 2018-07-18 05:06 | Emergency (ER) | payer MEDICARE, MEDICAID ==
[~2018-07-18 05:06] MED LIST changes: +CARI1TAB7 PO; -CARI350T PO; -CLON0.5T PO; +CLON0.5T8 PO; +COLE1TAB PO; +DIPH2.5T14 PO; -DRIS50002 PO; +DRIS50003 PO; +FLUTISP; +GUAI100S27 PO; -GUAI100S7 PO; +IBUP-1114 PO; -IBUP200C10 PO; +IBUP200C25 PO; +LAMO10TA PO; -LEVA1TAB PO; +LEVA250T13 PO; +LOPE2TAB3 PO; +LORA-243 PO; -LORA10TA2 PO; +MACR100C43 PO; +MECL-86 PO; +MIRA33504 PO; -NITR50CA2 PO; +NITR50CA34 PO; +OLAN2.5T PO; +POLY33503 PO; -PROM12.55 PO; +PROM12.56 PO; -PROM25TA GT; +PROM25TA12 GT; -SALI0.6523; +SALI0.6528; -ZOFR20TA PO; +ZOFR4TAB14 PO; +ZOFR4TAB16 PO; -ZOFR4TAB3 PO
[2018-07-18 05:18] VITALS: BP 148/78
[2018-07-18 05:29] LABS: BASO % 0.4 % (0.0-1.0); EOS # 0.2 10^3/uL (0.0-0.50); EOS % 3.3 % (0.0-3.0); HEMATOCRIT 36.5 % (36.0-47.0); HEMOGLOBIN 11.3 g/dl (12.0-15.5); LYMPH # 1.4 10^3/uL (1.5-4.5); LYMPH % 29.4 % (24.0-44.0); MEAN CORPUSCULAR HEMOGLOBIN 27.7 pg (27.0-33.0); MEAN CORPUSCULAR VOLUME 89.5 fl (80.0-96.0); MONO # 0.2 10^3/uL (0.0-0.8); NEUTROPHILS % 61.7 % (36.0-66.0); PLATELET COUNT, AUTOMATED 195 10^3/uL (150-450); RED BLOOD COUNT 4.08 10^6/uL (4.00-5.40); WHITE BLOOD COUNT 4.8 10^3/uL (4.0-10.0)
[2018-07-18] MEDS ORDERED: BACT400T PO (06:02)
[2018-07-18] MEDS ORDERED: BACTRIM 160MG/800MG DS TAB PO ONE (06:15)
== END 2018-07-18 06:21 | disposition home or self-care (01) ==
LOC: M ED 05:06 → EDBD 05:06 → M ED 06:21
DX: N30.01 Acute cystitis with hematuria (principal); N31.9 Neuromuscular dysfunction of bladder, unspecified; Z79.01 Long term (current) use of a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; Z79.899 Other long term (current) drug therapy; Z88.8 Allergy status to other drugs, medicaments and biological substances; Z91.040 Latex allergy status; Z88.0 Allergy status to penicillin

== ENCOUNTER 2018-07-25 18:07 | Emergency (ER) | payer MEDICARE, MEDICAID ==
[~2018-07-25 18:07] MED LIST changes: +BACT400T PO
[2018-07-25 20:14] LABS: BASO % 0.4 % (0.0-1.0); EOS # 0.3 10^3/uL (0.0-0.50); EOS % 4.6 % (0.0-3.0); HEMATOCRIT 36.5 % (36.0-47.0); HEMOGLOBIN 11.3 g/dl (12.0-15.5); LYMPH # 2.7 10^3/uL (1.5-4.5); LYMPH % 39.9 % (24.0-44.0); MEAN CORPUSCULAR HEMOGLOBIN 27.7 pg (27.0-33.0); MEAN CORPUSCULAR VOLUME 89.5 fl (80.0-96.0); MONO # 0.4 10^3/uL (0.0-0.8); MONO % 6.3 % (0.0-5.0); NEUTROPHILS # 3.3 10^3/uL (1.8-7.7); NEUTROPHILS % 48.5 % (36.0-66.0); PLATELET COUNT, AUTOMATED 198 10^3/uL (150-450); RED BLOOD COUNT 4.08 10^6/uL (4.00-5.40); WHITE BLOOD COUNT 6.8 10^3/uL (4.0-10.0)
[2018-07-25 20:19] LABS: BLOOD UREA NITROGEN 14 MG/DL (7-18); CARBON DIOXIDE LEVEL 27 MEQ/L (21-32); CHLORIDE LEVEL 109 MEQ/L (98-107); CREATININE FOR GFR 0.72 MG/DL (0.55-1.30); GLOMERULAR FILTRATION RATE > 60.0 (>45); GLUCOSE, FASTING 84 MG/DL (70-100); POTASSIUM SERUM 4.6 MEQ/L (3.5-5.1); SODIUM LEVEL 144 MEQ/L (136-145)
[2018-07-25] MEDS ORDERED: ISOVUE-370 76% 100ML VIAL (Q9967) As Ordered ONE (20:22)
[2018-07-25 21:09] LABS: INR 1.07; PARTIAL THROMBOPLASTIN TIME 29.4 SECONDS (25.4-37.6); PROTHROMBIN TIME 14.1 SECONDS (12.1-14.4)
--- NOTE | 2018-07-25 23:02 | REPVR ---
EXAM: CT Abdomen and Pelvis With Contrast EXAM DATE/TIME: 07/25/2018 8:27 PM CLINICAL HISTORY: 63 years old, female; Condition or disease; Hernia; Complications not specified; Other: Umbilical; Additional info: Umbilical hernia R/O obstruction TECHNIQUE: Axial computed tomography images of the abdomen and pelvis with intravenous contrast. All CT scans at this facility use at least one of these dose optimization techniques: automated exposure control; mA and/or kV adjustment per patient size (includes targeted exams where dose is matched to clinical indication); or iterative reconstruction. Coronal and sagittal reformatted images were created and reviewed. CONTRAST: 100 ml of ISOVUE 370 administered intravenously. COMPARISON: CT ABD PELVIS W/O CONTRAST 04/29/2018 8:42 PM FINDINGS: Lower thorax: Lung bases appear clear. There is mild cardiomegaly. ABDOMEN: Liver: There several scattered cysts throughout the liver. Gallbladder and bile ducts: There is severe intrahepatic biliary dilatation and the common bile duct measures 2.5 CM. This is unchanged since 01/30/2017 exam. The patient is status post cholecystectomy. Pancreas: The pancreas is normal in size. Spleen: The spleen is normal in size. Adrenals: Normal adrenal glands. Kidneys and ureters: Normal kidneys. Small cyst lower pole left kidney. There is no evidence of stone in the right or left ureter. Stomach and bowel: There is a large amount stool throughout the colon consistent with constipation. There is moderate dilatation of all of the small bowel and filled with secretions. This could be the result of ileus or enteritis. If there is concern for developing bowel obstruction than I would recommend oral contrast and a followup CT scan to ensure that the contrast enters the right colon. There are secretions within the cecum at the right pelvis. PELVIS: Bladder: Normal urinary bladder. Reproductive: Unremarkable as visualized. ABDOMEN and PELVIS: Intraperitoneal space: There is no evidence of pneumoperitoneum. There is no evidence of free fluid in the abdomen or pelvis. Bones/joints: There is severe scoliosis as the thoracolumbar junction convexity to the right. There is sclerosis and osteophyte formation along the right side of the lower lumbar spine and along the left side at the thoracolumbar junction. Soft tissues: There is a 4 CM umbilical hernia with protrusion of mesenteric fat and a single loop of small bowel. This loop of small bowel has secretions and not a point of obstruction. Vasculature: Portal vein and splenic vein are prominent. The aorta opacifies and appears intact. Lymph nodes: Normal. No enlarged lymph nodes. IMPRESSION: 1. Severe biliary dilatation unchanged since 2017. 2. Moderate distention of almost all of the small bowel and filled with secretions. This may be the result of ileus or enteritis. If there is further concern of developing bowel obstruction suggest correlation with CT scan with oral contrast to be followed to the colon. 3. Severe changes of constipation. 4. Umbilical hernia measuring 4 cm with protrusion of a fluid filled loop of small bowel but not a point of obstruction. Electronically signed by: Nilay Ann On 07/25/2018 23:01:56 PM
[2018-07-25] MEDS ORDERED: META0.52 PO (23:43)
[2018-07-26 00:08] VITALS: BP 121/65
[2018-07-26] MEDS ORDERED: GAS1CHW PO (08:10)
[2018-07-26] MEDS ORDERED: CYCL10TA PO (08:10)
[2018-07-26] MEDS ORDERED: ANTA1CHW4 PO (08:10)
[2018-07-26] MEDS ORDERED: VOLT1GEL15 TOP (08:10)
[2018-07-26] MEDS ORDERED: LAMI25TA PO (08:10)
[2018-07-26] MEDS ORDERED: MAPA325T2 PO (08:10)
[2018-07-26] MEDS ORDERED: ZYPR10TA PO (08:10)
[2018-07-26] MEDS ORDERED: ADV100INH INH (08:10)
[2018-07-26] MEDS ORDERED: PROAAER10 INH (08:10)
[2018-07-26] MEDS ORDERED: BANO25CA PO (08:10)
[2018-07-26] MEDS ORDERED: K-TA10TA2 PO (08:10)
[2018-07-26] MEDS ORDERED: FLEET ENEMA PR ONE (09:00)
[2018-07-26] MEDS ORDERED: COLA100C5 PO (11:57)
--- NOTE | 2018-07-28 09:12 | ED PDOC ---
Post-Departure Follow-Up dr guillen faxed fomal report of ct abd/p for fu Antonio Adorno MD Jul 28, 2018 09:12
== END 2018-07-26 00:30 | disposition home or self-care (01) ==
LOC: M ED 19:50
DX: K59.00 Constipation, unspecified (principal); K42.9 Umbilical hernia without obstruction or gangrene; N31.9 Neuromuscular dysfunction of bladder, unspecified; J45.909 Unspecified asthma, uncomplicated; J44.9 Chronic obstructive pulmonary disease, unspecified; G43.909 Migraine, unspecified, not intractable, without status migrainosus; Z88.0 Allergy status to penicillin; Z88.8 Allergy status to other drugs, medicaments and biological substances; Z91.040 Latex allergy status; Z79.899 Other long term (current) drug therapy; Z79.2 Long term (current) use of antibiotics; Z79.01 Long term (current) use of a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; Z87.891 Personal history of nicotine dependence
CPT/HCPCS: 36415; 74177; 80048; 80053; 81001; 82150; 83690; 85025; 85610; 85730; 99284; Q9967

== ENCOUNTER 2018-07-26 07:52 | Emergency (ER) | payer MEDICARE, MEDICAID ==
[~2018-07-26] VITALS: Ht 149.9 cm; Wt 57.3 kg
[~2018-07-26 07:52] MED LIST changes: +META0.52 PO
[2018-07-26 08:03] VITALS: BP 140/78
[2018-07-26] MEDS ORDERED: ZYPR10TA PO (08:10)
[2018-07-26] MEDS ORDERED: MAPA325T2 PO (08:10)
[2018-07-26] MEDS ORDERED: GAS1CHW PO (08:10)
[2018-07-26] MEDS ORDERED: K-TA10TA2 PO (08:10)
[2018-07-26] MEDS ORDERED: CYCL10TA PO (08:10)
[2018-07-26] MEDS ORDERED: BANO25CA PO (08:10)
[2018-07-26] MEDS ORDERED: ADV100INH INH (08:10)
[2018-07-26] MEDS ORDERED: PROAAER10 INH (08:10)
[2018-07-26] MEDS ORDERED: ANTA1CHW4 PO (08:10)
[2018-07-26] MEDS ORDERED: VOLT1GEL15 TOP (08:10)
[2018-07-26] MEDS ORDERED: LAMI25TA PO (08:10)
[2018-07-26] MEDS ORDERED: METHYLNALTREXONE BROMIDE 12 MG/0.6 ML VIAL (RELISTOR) SC ONE (09:45)
[2018-07-26] MEDS ORDERED: NS 1,000 ML IV ONE (09:45)
[2018-07-26 10:46] LABS: BASO % 0.5 % (0.0-1.0); EOS # 0.2 10^3/uL (0.0-0.50); EOS % 2.5 % (0.0-3.0); HEMATOCRIT 39.5 % (36.0-47.0); HEMOGLOBIN 12.4 g/dl (12.0-15.5); LYMPH # 2.4 10^3/uL (1.5-4.5); LYMPH % 40.4 % (24.0-44.0); MEAN CORPUSCULAR HEMOGLOBIN 28.1 pg (27.0-33.0); MEAN CORPUSCULAR HGB CONC 31.4 g/dl (32.0-36.5); MEAN CORPUSCULAR VOLUME 89.6 fl (80.0-96.0); MONO # 0.3 10^3/uL (0.0-0.8); MONO % 5.4 % (0.0-5.0); NEUTROPHILS % 50.9 % (36.0-66.0); PLATELET COUNT, AUTOMATED 240 10^3/uL (150-450); RED BLOOD COUNT 4.41 10^6/uL (4.00-5.40)
[2018-07-26 11:13] LABS: ALT/SGPT 23 U/L (12-78); BLOOD UREA NITROGEN 13 MG/DL (7-18); CALCIUM LEVEL 9.2 MG/DL (8.8-10.2); CARBON DIOXIDE LEVEL 25 MEQ/L (21-32); CHLORIDE LEVEL 109 MEQ/L (98-107); GLOMERULAR FILTRATION RATE > 60.0 (>45); GLUCOSE, FASTING 80 MG/DL (70-100); POTASSIUM SERUM 4.4 MEQ/L (3.5-5.1); SODIUM LEVEL 141 MEQ/L (136-145)
[2018-07-26 11:14] LABS: ALBUMIN 3.7 GM/DL (3.2-5.2); AMYLASE 62 U/L (25-115); BILIRUBIN,TOTAL 0.3 MG/DL (0.2-1.0); LIPASE 147 U/L (73-393); TOTAL PROTEIN 8.1 GM/DL (6.4-8.2)
[2018-07-26] MEDS ORDERED: COLA100C5 PO (11:57)
== END 2018-07-26 13:18 | disposition home or self-care (01) ==
LOC: M ED 07:52
DX: K59.00 Constipation, unspecified (principal); K42.9 Umbilical hernia without obstruction or gangrene; N31.9 Neuromuscular dysfunction of bladder, unspecified; J45.909 Unspecified asthma, uncomplicated; J44.9 Chronic obstructive pulmonary disease, unspecified; G43.909 Migraine, unspecified, not intractable, without status migrainosus; Z88.0 Allergy status to penicillin; Z88.8 Allergy status to other drugs, medicaments and biological substances; Z91.040 Latex allergy status; Z79.899 Other long term (current) drug therapy; Z79.2 Long term (current) use of antibiotics; Z79.01 Long term (current) use of a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; Z87.891 Personal history of nicotine dependence
CPT/HCPCS: 36415; 74177; 80048; 80053; 81001; 82150; 83690; 85025; 85610; 85730; 99284; Q9967

== ENCOUNTER 2018-07-31 14:04 | Emergency (ER) | payer MEDICARE, MEDICAID ==
[~2018-07-31] VITALS: Ht 149.9 cm; Wt 57.0 kg
[~2018-07-31 14:04] MED LIST changes: +ADV100INH INH; +ANTA1CHW4 PO; +BANO25CA PO; +GAS1CHW PO; +K-TA10TA2 PO; +MAPA325T2 PO; +PROAAER10 INH; +VOLT1GEL15 TOP
[2018-07-31 14:17] VITALS: BP 139/70
[2018-07-31] MEDS ORDERED: MAGNESIUM CITRATE 300 ML BTL PO ONE (16:00)
[2018-07-31] MEDS ORDERED: BISACODYL 10 MG SUPP PR ONE (16:00)
--- NOTE | 2018-07-31 16:48 | REP ---
Abdomen series: Three views. History: Constipation. Comparison radiographs are from July 24, 2018. Findings: Upright chest radiograph shows no evidence of infiltrate or free subdiaphragmatic air. Heart size is borderline. There is a levoconvex thoracic curvature. There is an old healed rib fracture on the right side. Supine and erect views of the abdomen show severe dextroconvex lumbar curvature. There are clips in right upper quadrant. The bowel gas pattern shows less stool in the right colon and rectum when compared with the recent prior study of 07/24/2018. There is still formed stool in the left colon. Impression: Moderate stool persists in the left colon. There is less stool visible in the rectum and right colon when compared with the July 24, 2018 study. Severe rotoscoliosis. Right upper quadrant clips. Electronically Signed by Trung Jensen MD 07/31/2018 06:57 P
== END 2018-07-31 17:39 | disposition home or self-care (01) ==
LOC: EDBD 14:04 → M ED 14:04
DX: K59.00 Constipation, unspecified (principal); J45.909 Unspecified asthma, uncomplicated; Z79.899 Other long term (current) drug therapy; Z79.01 Long term (current) use of a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; Z88.0 Allergy status to penicillin; Z88.8 Allergy status to other drugs, medicaments and biological substances; Z91.040 Latex allergy status

== ENCOUNTER 2018-08-06 05:49 | Emergency (ER) | payer MEDICARE, MEDICAID ==
[~2018-08-06] VITALS: Ht 149.9 cm; Wt 65.9 kg
[2018-08-06] MEDS ORDERED: FLEET ENEMA PR ONE (07:00)
[2018-08-06] MEDS ORDERED: LACT10SO29 PO (07:55)
--- NOTE | 2018-08-06 08:02 | REP ---
ACUTE ABDOMINAL SERIES: Three views. HISTORY: Abdomen pain. Constipation. Comparison chest x-ray July 31, 2018. FINDINGS: Upright chest radiograph shows a levoconvex scoliotic curve. The lungs are well inflated and free of infiltrate. Heart size is borderline unchanged. There is no evidence of free subdiaphragmatic air. There is an old healed rib fracture on the right. Supine and erect views of the abdomen demonstrate a moderate to marked dextroconvex rotoscoliotic curve in the lumbar spine. There are clips in right upper quadrant consistent with a previous cholecystectomy. The bowel gas pattern is unremarkable with air and stool in a nondistended colon. Flank stripes are intact. Sacrum and SI joints are intact. IMPRESSION: Scoliosis. Clips in the right upper quadrant. Bowel gas pattern is normal. Borderline heart size unchanged. Electronically Signed by Trung Jensen MD 08/06/2018 08:57 A
[2018-08-06 08:44] VITALS: BP 154/85
== END 2018-08-06 08:54 | disposition home or self-care (01) ==
LOC: M ED 05:49
DX: K59.00 Constipation, unspecified (principal); R32 Unspecified urinary incontinence; M41.9 Scoliosis, unspecified; Z79.02 Long term (current) use of antithrombotics/antiplatelets; Z79.899 Other long term (current) drug therapy; Z91.040 Latex allergy status; Z88.0 Allergy status to penicillin; Z88.8 Allergy status to other drugs, medicaments and biological substances

== ENCOUNTER 2018-08-23 17:18 | Emergency (ER) | payer MEDICARE, MEDICAID ==
[~2018-08-23] VITALS: Ht 149.9 cm; Wt 50.0 kg
[~2018-08-23 17:18] MED LIST changes: +LACT10SO29 PO
[2018-08-23] MEDS ORDERED: NS 1,000 ML IV ONE (18:30)
[2018-08-23] MEDS ORDERED: ONDANSETRON 4MG/2ML VIAL (J2405) IV ONE (18:30)
[2018-08-23 18:48] LABS: BASO % 0.4 % (0.0-1.0); EOS # 0.2 10^3/uL (0.0-0.50); EOS % 2.7 % (0.0-3.0); HEMATOCRIT 38.9 % (36.0-47.0); HEMOGLOBIN 11.9 g/dl (12.0-15.5); LYMPH # 1.7 10^3/uL (1.5-4.5); MEAN CORPUSCULAR HEMOGLOBIN 28.5 pg (27.0-33.0); MEAN CORPUSCULAR HGB CONC 30.6 g/dl (32.0-36.5); MEAN CORPUSCULAR VOLUME 93.1 fl (80.0-96.0); MONO # 0.3 10^3/uL (0.0-0.8); MONO % 5.7 % (0.0-5.0); NEUTROPHILS # 3.4 10^3/uL (1.8-7.7); PLATELET COUNT, AUTOMATED 198 10^3/uL (150-450); RED BLOOD COUNT 4.18 10^6/uL (4.00-5.40); WHITE BLOOD COUNT 5.6 10^3/uL (4.0-10.0)
[2018-08-23 19:10] LABS: ALBUMIN 3.5 GM/DL (3.2-5.2); ALT/SGPT 57 U/L (12-78); BILIRUBIN,DIRECT < 0.1 MG/DL (0.0-0.2); BILIRUBIN,TOTAL 0.1 MG/DL (0.2-1.0); BLOOD UREA NITROGEN 16 MG/DL (7-18); CALCIUM LEVEL 8.8 MG/DL (8.8-10.2); CARBON DIOXIDE LEVEL 26 MEQ/L (21-32); CHLORIDE LEVEL 109 MEQ/L (98-107); CREATININE FOR GFR 0.76 MG/DL (0.55-1.30); GLOMERULAR FILTRATION RATE > 60.0 (>45); GLUCOSE, FASTING 129 MG/DL (70-100); LIPASE 150 U/L (73-393); POTASSIUM SERUM 4.5 MEQ/L (3.5-5.1); SODIUM LEVEL 142 MEQ/L (136-145); TOTAL PROTEIN 7.3 GM/DL (6.4-8.2)
--- NOTE | 2018-08-23 19:17 | REP ---
Clinical: Diarrhea. Technique: Upright view of the chest and abdomen with supine view of the abdomen and pelvis. Findings: Lung bases are clear. No free air below the diaphragm to suspect pneumoperitoneum. Bowel gas pattern is nonspecific. No evidence for obstruction or perforation. No obvious organomegaly. Severe scoliosis. Prior cholecystectomy. Impression: Nonspecific bowel gas pattern. Electronically Signed by Boyd Ford MD 08/23/2018 07:09 P
[2018-08-23] MEDS ORDERED: GI COCKTAIL 50ML BTL(HYOSCYAMINE/MAALOX/LIDOCAINE VISCOUS)(1:3:1) PO ONE (21:00)
[2018-08-23] MEDS ORDERED: BACT800T5 PO (21:45)
[2018-08-23 21:55] VITALS: BP 152/83
[2018-08-23] MEDS ORDERED: BACTRIM 160MG/800MG DS TAB PO ONE (22:30)
[2018-08-25] MEDS ORDERED: FLUTISP (14:18)
[2018-08-25] MEDS ORDERED: LINZ290C PO (14:18)
== END 2018-08-23 23:20 | disposition home or self-care (01) ==
LOC: M ED 17:18
DX: N30.01 Acute cystitis with hematuria (principal); R19.7 Diarrhea, unspecified; N31.9 Neuromuscular dysfunction of bladder, unspecified; G43.909 Migraine, unspecified, not intractable, without status migrainosus; J45.909 Unspecified asthma, uncomplicated; J44.9 Chronic obstructive pulmonary disease, unspecified; Z87.440 Personal history of urinary (tract) infections; M54.9 Dorsalgia, unspecified; F41.9 Anxiety disorder, unspecified; F32.9 Major depressive disorder, single episode, unspecified; Z79.01 Long term (current) use of a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; Z79.899 Other long term (current) drug therapy; Z88.8 Allergy status to other drugs, medicaments and biological substances; Z88.0 Allergy status to penicillin; Z91.040 Latex allergy status
CPT/HCPCS: 74019; 80048; 80076; 81001; 83690; 85025; 87086; 87507; 96361; 96374; 99284; J2405

== ENCOUNTER 2018-08-28 11:48 | Emergency (ER) | payer MEDICARE, MEDICAID ==
[~2018-08-28] VITALS: Ht 149.9 cm; Wt 76.8 kg
[~2018-08-28 11:48] MED LIST changes: +LINZ290C PO
--- NOTE | 2018-08-28 13:00 | REP ---
KUB: Single view. History: Constipation versus obstruction. Comparison study August 23, 2018. Findings: Supine view of the abdomen demonstrates a marked dextroconvex lumbar scoliotic curve. There are clips in right upper quadrant. There is moderate amount of formed stool in the left colon within the pelvis. Moderate formed stool seen in the ascending colon and near the splenic flexure. No small bowel dilation is seen. No evidence of obstruction. Flank stripes are intact. No mass or organomegaly. Impression: Moderate stool proximally and distally in the colon. No evidence of obstruction. Electronically Signed by Trung Jensen MD 08/28/2018 03:36 P
[2018-08-28] MEDS ORDERED: FLEET ENEMA PR STA (13:16)
[2018-08-28 14:51] VITALS: BP 139/90
== END 2018-08-28 15:09 | disposition home or self-care (01) ==
LOC: EDBD 11:48 → M ED 11:48
DX: K59.00 Constipation, unspecified (principal); G43.909 Migraine, unspecified, not intractable, without status migrainosus; Z87.440 Personal history of urinary (tract) infections; Z79.01 Long term (current) use of a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; Z79.899 Other long term (current) drug therapy; Z88.0 Allergy status to penicillin; Z88.8 Allergy status to other drugs, medicaments and biological substances; Z91.040 Latex allergy status

== ENCOUNTER 2018-09-02 09:25 | Inpatient (IN) | payer MEDICARE, MEDICAID ==
[~2018-09-02] VITALS: Ht 149.9 cm; Wt 69.8 kg
[2018-09-02] MEDS: MIRALAX *UNIT DOSE* 17GM PACKET PO SCH (09:00)
[2018-09-02] MEDS: FLUTICASONE PROP 0.05% NASAL SPRAY 16 GM (FLONASE) SCH (09:00)
[~2018-09-02 09:25] MED LIST changes: +GLYCOPYRROLATE INJ 0.2 MG/ML 2 ML VIAL As Ordered ONE; +LIDOCAINE 2% JELLY 30 ML As Ordered ONE; +LIDOCAINE PRES-FREE 2% 10ML AMP As Ordered ONE; +MIDAZOLAM INJ 2 MG/2 ML VIAL (J2250) As Ordered ONE; +NEOSTIGMINE 10 MG/10 ML VIAL (J2710) As Ordered ONE; +ONDANSETRON 4MG/2ML VIAL (J2405) As Ordered ONE; +PROPOFOL 200 MG/20 ML VIAL As Ordered ONE; +ROCURONIUM BROMIDE 50 MG/5 ML VIAL As Ordered ONE; +dexameTHASONE 4 MG/ML 1ML VIAL (J1100) As Ordered ONE; +fentaNYL 100 MCG/2 ML INJECTION (J3010) As Ordered ONE
[2018-09-02] MEDS ORDERED: LevoFLOXacin IV 500 MG in APPROPRIATE DILUENT 1 EA IV ONE (09:45)
[2018-09-02] MEDS ORDERED: BUPIVACAINE/EPIN 0.25% 30 ML VIAL As Ordered ONE (10:45)
[2018-09-02] MEDS ORDERED: LR 1,000 ML IV ONE (11:30)
[2018-09-02] MEDS ORDERED: BUPIVACAINE LIPOSOME/PF 1.3% 20ML VIAL (13.3MG/ML)(EXPAREL)(C9290 PER1MG) As Ordered ONE (11:44)
[2018-09-02] MEDS ORDERED: BUPIVACAINE HCL 0.25% 30 ML VIAL As Ordered ONE (11:44)
[2018-09-02] MEDS ORDERED: fentaNYL 100 MCG/2 ML INJECTION (J3010) As Ordered ONE (11:49)
[2018-09-02] MEDS ORDERED: LABETALOL HCL 100 MG/20 ML VIAL As Ordered ONE (12:01)
[2018-09-02] MEDS ORDERED: ROCURONIUM BROMIDE 50 MG/5 ML VIAL As Ordered ONE (12:31)
[2018-09-02] MEDS ORDERED: D5W/LR 1,000 ML IV SCH (13:20)
[2018-09-02] MEDS ORDERED: MECLIZINE 25 MG TABLET PO PRN (13:30)
[2018-09-02] MEDS ORDERED: MORPHINE 4 MG/ML 1ML VIAL/SYRINGE (J2270) IV PRN (13:30)
[2018-09-02] MEDS ORDERED: IPRATROPIUM 0.5MG/ALBUTEROL 2.5MG INH SOL UD 3ML (DUONEB)(J7620) NEB PRN (13:30)
[2018-09-02] MEDS ORDERED: KETOROLAC 30 MG/ML VIAL (J1885) IV PRN (13:30)
[2018-09-02] MEDS: IPRATROPIUM 0.5MG/ALBUTEROL 2.5MG INH SOL UD 3ML (DUONEB)(J7620) NEB SCH ×2 (14:00→20:00)
[2018-09-02] MEDS ORDERED: METOCLOPRAMIDE INJ 10MG/2ML VIAL (J2765) IV PRN (14:15)
[2018-09-02] MEDS ORDERED: LR 1,000 ML IV SCH (14:15)
[2018-09-02] MEDS ORDERED: ONDANSETRON 4MG/2ML VIAL (J2405) IV PRN (14:15)
[2018-09-02] MEDS ORDERED: fentaNYL 100 MCG/2 ML INJECTION (J3010) IV PRN (14:15)
[2018-09-02] MEDS ORDERED: PERCOCET 5MG/325MG TAB PO PRN (14:15)
[2018-09-02] MEDS ORDERED: ALBUTEROL SULFATE 2.5 MG/0.5 ML INH NEB SOLN INH ONE (15:15)
[2018-09-02 15:16] VITALS: BP 130/61
[2018-09-02 15:45] VITALS: BP 127/66
[2018-09-02] MEDS: CALCIUM CARBONATE 500 MG CHEW U/D PO SCH ×2 (16:00→21:06)
[2018-09-02 17:00] VITALS: BP 129/70
[2018-09-02 18:05] VITALS: BP 127/72
[2018-09-02 19:00] VITALS: BP 127/68
[2018-09-02] MEDS: ADVAIR HFA 45/21MCG INHALER INH SCH (20:43)
[2018-09-02] MEDS: PROMETHAZINE 25 MG TAB PO SCH ×2 (21:01→23:15)
[2018-09-02] MEDS: BACTRIM 160MG/800MG DS TAB PO SCH (21:05)
[2018-09-02] MEDS: OLANZapine 5 MG TAB PO SCH (21:05)
[2018-09-02] MEDS: NORCO, ANEXSIA 5/325MG TABLET (HYDROcodone/ACETAMINOPHEN) PO PRN (21:05)
[2018-09-02] MEDS: clonazePAM 0.5 MG TAB PO SCH (21:06)
[2018-09-02] MEDS: DOCUSATE SODIUM 100 MG CAP PO SCH (21:06)
[2018-09-02] MEDS: PERCOCET 5MG/325MG TAB PO PRN (22:27)
[2018-09-02 23:22] VITALS: BP 168/76
[2018-09-03] MEDS ORDERED: clonazePAM 0.5 MG TAB PO ONE
[2018-09-03] MEDS: NORCO, ANEXSIA 5/325MG TABLET (HYDROcodone/ACETAMINOPHEN) PO PRN ×4 (04:25→23:16)
[2018-09-03 04:41] VITALS: BP 161/72
[2018-09-03] MEDS: PROMETHAZINE 25 MG TAB PO SCH ×4 (05:52→23:16)
[2018-09-03] MEDS: PERCOCET 5MG/325MG TAB PO PRN (05:53)
[2018-09-03] MEDS: ADVAIR HFA 45/21MCG INHALER INH SCH ×2 (07:48→20:08)
[2018-09-03] MEDS: IPRATROPIUM 0.5MG/ALBUTEROL 2.5MG INH SOL UD 3ML (DUONEB)(J7620) NEB SCH ×3 (07:48→20:00)
--- NOTE | 2018-09-03 09:23 | RO ---
DATE OF PROCEDURE: 09/02/2018 PREOPERATIVE DIAGNOSIS: Incisional hernia. POSTOPERATIVE DIAGNOSIS: Incisional hernia. PROCEDURE: Laparoscopic incisional hernia repair with Ventralight mesh (15 cm round). SURGEON: Dr. Griffin Shepherd RISK MANAGEMENT SPECIALIST: ANESTHESIA: General endotracheal anesthesia. ESTIMATED BLOOD LOSS: Minimal. FLUIDS: Crystalloid. BRIEF PROCEDURE SUMMARY: The patient was brought to the operating room and was given general anesthesia. After adequate anesthesia and preoperative antibiotics were given, the patient was prepped and draped in the usual sterile fashion. Next, a right subcostal incision was made with skin knife. Blunt dissection was carried down to fascia. The fascia was entered and the peritoneum was entered using a Veress needle. The Veress needle was used to insufflate up to 15 mm of pressure. Then a dilating 5 mm trocar was placed. Once this was placed, the numerous adhesions of the omentum up against the anterior abdominal wall was appreciated on the previous mesh repair. In the periumbilical area, the patient did have a few fascial defects that were present. Thus at this point, a right lower quadrant 5 mm trocar was placed and later on two 5 mm left lower quadrant trocars were placed. Using a harmonic scalpel, the adhesions were taken down off the mesh itself and in portions the mesh was actually taken down right off the abdominal wall in this area. Most of the omentum was taken down and provided better exposure to the fascia/the mesh underlying this area. Eventually after extensive dissection in this area with care noting that no bowel was up against the anterior abdominal wall and just the omentum; thus, a 12 mm trocar was placed at the umbilicus and a 15 cm mesh was placed with Secure Straps circumferentially. Exparel was placed circumferentially as well and all trocars removed under direct visualization. #4-0 Vicryl was used to close all incisions. Steri-Strips and a dry sterile dressing was applied. The patient was awakened, extubated and brought to recovery room awake, alert and hemodynamically stable. Sponge and needle counts were correct times two.
--- NOTE | 2018-09-03 09:27 | IPN ---
DATE: 09/03/2018 The patient underwent laparoscopic incisional hernia repair yesterday and today has her usual complaints, which is everything (essentially is nervous about everything, is nervous about a wound falling apart, her insides falling out, her ability to reach up, worried about taking a shower, and the worries continue on for several minutes). In any case, she is actually doing very well and moving around in bed fine without any complaints of pain or discomfort. When she is moving, she does not seem to have any wincing and she is moving fine. She is eating a breakfast without nausea and tolerating this well. Her incisions are healing nicely without any erythema, drainage or discharge. IMPRESSION AND PLAN: The patient is status post laparoscopic incisional hernia repair and seems to be doing quite well at this point. Unfortunately, subjectively, she does not think she is doing well and mostly this an anxiety issue that has been going on for years. I have known her for years and this is as per normal as can be seen with her multiple ER visits. She will continue to have ongoing issues. One day she will have some diarrhea and other days constipation, some urinary incontinence, etc., and I expect those things to continue on even after discharge. However, today will keep her in the hospital and will watch her and encourage her to get up and move around and see if we can make her more comfortable with some of the activities that she is about to do when she is discharged.
[2018-09-03 10:00] VITALS: BP 129/60
[2018-09-03] MEDS: BACTRIM 160MG/800MG DS TAB PO SCH ×2 (10:12→20:12)
[2018-09-03] MEDS: DOCUSATE SODIUM 100 MG CAP PO SCH ×3 (10:12→20:15)
[2018-09-03] MEDS: CALCIUM CARBONATE 500 MG CHEW U/D PO SCH ×3 (10:13→20:12)
[2018-09-03] MEDS: FLUTICASONE PROP 0.05% NASAL SPRAY 16 GM (FLONASE) SCH (10:13)
[2018-09-03] MEDS: MIRALAX *UNIT DOSE* 17GM PACKET PO SCH (10:13)
[2018-09-03 14:00] VITALS: BP 134/68
[2018-09-03 18:00] VITALS: BP 154/84
[2018-09-03] MEDS: clonazePAM 0.5 MG TAB PO SCH (20:12)
[2018-09-03] MEDS: OLANZapine 5 MG TAB PO SCH (20:12)
[2018-09-03 22:00] VITALS: BP 139/68
[2018-09-04 02:00] VITALS: BP 142/72
[2018-09-04] MEDS: PERCOCET 5MG/325MG TAB PO PRN (02:00)
[2018-09-04] MEDS: PROMETHAZINE 25 MG TAB PO SCH ×2 (05:11→11:27)
[2018-09-04] MEDS: NORCO, ANEXSIA 5/325MG TABLET (HYDROcodone/ACETAMINOPHEN) PO PRN ×2 (05:12→11:56)
[2018-09-04 06:00] VITALS: BP 146/70
[2018-09-04] MEDS: IPRATROPIUM 0.5MG/ALBUTEROL 2.5MG INH SOL UD 3ML (DUONEB)(J7620) NEB SCH ×2 (07:41→13:24)
[2018-09-04] MEDS: ADVAIR HFA 45/21MCG INHALER INH SCH (07:42)
[2018-09-04] MEDS: DOCUSATE SODIUM 100 MG CAP PO SCH (09:00)
[2018-09-04] MEDS: FLUTICASONE PROP 0.05% NASAL SPRAY 16 GM (FLONASE) SCH (09:00)
[2018-09-04] MEDS: MIRALAX *UNIT DOSE* 17GM PACKET PO SCH (09:00)
[2018-09-04] MEDS ORDERED: PERCOCET PO (09:25)
[2018-09-04] MEDS: BACTRIM 160MG/800MG DS TAB PO SCH (11:27)
[2018-09-04] MEDS: CALCIUM CARBONATE 500 MG CHEW U/D PO SCH (11:28)
--- NOTE | 2018-09-28 05:46 | DSES ---
DATE OF ADMISSION: 09/02/2018 DATE OF DISCHARGE: 09/04/2018 PRINCIPAL DIAGNOSIS: Incisional hernia. BRIEF HISTORY OF PRESENT ILLNESS: The patient is a 63-year-old female who had a previous incisional hernia repair and developed a recurrence at the lower portion of the incision. She now presents for treatment/evaluation of this. HOSPITAL COURSE SUMMARY: The patient had a laparoscopic incisional hernia repair and circumferentially I was able to anesthetize this and she actually had relatively good pain relief but because of anxiety issues she did not feel comfortable going home. She was kept overnight and then the following day it was hard to mobilize her adequately to feel comfortable that she would do well and thus was kept for a few days; eventually getting her comfortable enough to move around well enough. She was tolerating a regular diet, had no nausea or vomiting, had incisions which were clean, dry and healing nicely without any erythema, drainage or discharge. No significant ecchymosis was appreciated. DISCHARGE MEDICATIONS: She was discharged home on the following medications: - Vicodin - Mapap - albuterol - Tums - Eliquis - Banophen - clonazepam - Bentyl - Lomotil - fluconazole - fluticasone - loperamide - Meclizine - Zyprexa - promethazine - Sudafed - Advair diskus - simethicone The patient was instructed to follow up with me in two weeks. Follow up with her primary care the next week.
== END 2018-09-04 13:45 | disposition home or self-care (01) | DRG 876 ==
LOC: M SDC 09:25 → M MS4PR 15:35 → M SDC 09-03 09:37 → M MS4PR 09-03 09:38
PROVIDERS: ADMIT Surgery; ATTEND Surgery
PROC: 0WUF4JZ Supplement Abdominal Wall with Synthetic Substitute, Percutaneous Endoscopic Approach (ICD-10-PCS; principal; 2018-09-02 12:00)
DX: F41.8 Other specified anxiety disorders (principal); K43.2 Incisional hernia without obstruction or gangrene; K21.9 Gastro-esophageal reflux disease without esophagitis; J45.909 Unspecified asthma, uncomplicated

== ENCOUNTER 2018-09-09 19:52 | Emergency (ER) | payer MEDICARE, MEDICAID ==
[~2018-09-09 19:52] MED LIST changes: -GLYCOPYRROLATE INJ 0.2 MG/ML 2 ML VIAL As Ordered ONE; -LIDOCAINE 2% JELLY 30 ML As Ordered ONE; -LIDOCAINE PRES-FREE 2% 10ML AMP As Ordered ONE; -MIDAZOLAM INJ 2 MG/2 ML VIAL (J2250) As Ordered ONE; -NEOSTIGMINE 10 MG/10 ML VIAL (J2710) As Ordered ONE; -ONDANSETRON 4MG/2ML VIAL (J2405) As Ordered ONE; +PERCOCET PO; -PROPOFOL 200 MG/20 ML VIAL As Ordered ONE; -ROCURONIUM BROMIDE 50 MG/5 ML VIAL As Ordered ONE; -dexameTHASONE 4 MG/ML 1ML VIAL (J1100) As Ordered ONE; -fentaNYL 100 MCG/2 ML INJECTION (J3010) As Ordered ONE
[2018-09-09] MEDS ORDERED: OXYC1TAB23 (20:11)
[2018-09-09] MEDS ORDERED: SIMETHICONE 80 MG CHEW TAB PO ONE (21:30)
[2018-09-09 22:01] VITALS: BP 128/74
== END 2018-09-09 23:02 | disposition home or self-care (01) ==
LOC: M ED 19:52
DX: R10.9 Unspecified abdominal pain (principal); G89.18 Other acute postprocedural pain; Z79.899 Other long term (current) drug therapy; Z79.01 Long term (current) use of a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; Z88.0 Allergy status to penicillin; Z88.8 Allergy status to other drugs, medicaments and biological substances; Z91.040 Latex allergy status

== ENCOUNTER 2018-09-17 11:36 | Emergency (ER) | payer MEDICARE, MEDICAID ==
[~2018-09-17] VITALS: Ht 149.9 cm; Wt 68.2 kg
[~2018-09-17 11:36] MED LIST changes: +OXYC1TAB23
[2018-09-17] MEDS ORDERED: MAALSUS2 PO (15:23)
[2018-09-17 15:28] VITALS: BP 129/73
== END 2018-09-17 15:37 | disposition home or self-care (01) ==
LOC: M ED 11:36
DX: K59.09 Other constipation (principal); K29.70 Gastritis, unspecified, without bleeding; R10.9 Unspecified abdominal pain; Z88.8 Allergy status to other drugs, medicaments and biological substances; Z88.0 Allergy status to penicillin; Z91.040 Latex allergy status; Z79.899 Other long term (current) drug therapy; Z79.51 Long term (current) use of inhaled steroids

== ENCOUNTER 2018-09-19 18:11 | Emergency (ER) | payer MEDICARE, MEDICAID ==
[~2018-09-19] VITALS: Ht 149.9 cm; Wt 70.0 kg
[~2018-09-19 18:11] MED LIST changes: +MAALSUS2 PO
--- NOTE | 2018-09-19 20:38 | REP ---
Clinical: Abdominal pain. Technique: Supine and cross-table lateral views of the abdomen and pelvis. Findings: The bowel gas pattern is essentially nonspecific and without obstruction or perforation. Moderate fecal stasis and possible constipation cannot be excluded. No organomegaly. Evidence of prior cholecystectomy. Advanced scoliosis and degenerative changes. Impression: Nonspecific bowel gas pattern without obstruction or perforation. Possible moderate fecal stasis. Electronically Signed by Boyd Ford MD 09/19/2018 08:29 P
[2018-09-19 22:40] LABS: AMORPHOUS SEDIMENT MODERATE (NEGATIVE); APPEARANCE, URINE TURBID (CLEAR); BACTERIA, URINE AUTO 1+ (NEGATIVE); BILIRUBIN, URINE AUTO NEGATIVE (NEGATIVE); BLOOD, URINE BLOOD 3+ (NEGATIVE); COLOR, URINE AMBER (YELLOW); GLUCOSE, URINE (UA) AUTO NEGATIVE (NEGATIVE); KETONE, URINE AUTO NEGATIVE (NEGATIVE); LEUKOCYTE ESTERASE, URINE AUTO 2+ (NEGATIVE); MUCUS, URINE SMALL (NEGATIVE); NITRITE, URINE AUTO NEGATIVE (NEGATIVE); PROTEIN, URINE AUTO 2+ mg/dL (NEGATIVE); RBC, URINE AUTO TNTC /HPF (0-3); SPECIFIC GRAVITY URINE AUTO 1.027 (1.002-1.035); SQUAMOUS EPITHELIAL CELL UR AU 4 /HPF (0-6); TRIPLE PHOSPHATE CRYSTALS SMALL; UROBILINOGEN, URINE AUTO 0.2 mg/dL (0.0-2.0); WBC, URINE AUTO 41 /HPF (0-3)
[2018-09-19] MEDS ORDERED: BACT800T5 PO (23:00)
[2018-09-19] MEDS ORDERED: BACTRIM 160MG/800MG DS TAB PO ONE (23:00)
[2018-09-19 23:03] VITALS: BP 125/67
== END 2018-09-19 23:47 | disposition home or self-care (01) ==
LOC: M ED 18:11
DX: R19.7 Diarrhea, unspecified (principal); N39.0 Urinary tract infection, site not specified; Z88.8 Allergy status to other drugs, medicaments and biological substances; Z91.040 Latex allergy status; Z88.0 Allergy status to penicillin; Z79.899 Other long term (current) drug therapy; Z79.01 Long term (current) use of a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; Z79.51 Long term (current) use of inhaled steroids
CPT/HCPCS: 74019; 81001; 87088; 87186; 99284; P9612

== ENCOUNTER 2018-11-12 05:25 | Emergency (ER) | payer MEDICARE, MEDICAID ==
[~2018-11-12] VITALS: Ht 149.9 cm; Wt 75.0 kg
[~2018-11-12 05:25] MED LIST changes: -ACET50TA PO; +GAS125CH PO; -GAS1CHW PO; +GUAI100L6 PO; -GUAI100S27 PO; +LAMO100T80 PO; -LAMO10TA PO; +MAPA500T17 PO; +NORC1TAB8 PO; -NORC7.5T35 PO; -OLAN2.5T PO; +OLAN2.5T25 PO
--- NOTE | 2018-11-12 08:25 | REP ---
KUB: Two views. History: History of hernia. Comparison abdominal films are from September 19, 2018. Findings: There is a moderate to marked dextroconvex scoliotic curve in the lumbar spine with degenerative disc and facet changes as before. The bowel gas pattern is normal with air and stool in a nondistended colon proximally and distally. There are clips in the right upper quadrant suggesting previous cholecystectomy. No small or large bowel dilation is seen. Flank stripes are intact. There is some pleural thickening at the left base laterally blunting the left lateral pleural angle. Similar changes were noted in September. Impression: Blunted left lateral pleural angle. Normal bowel gas pattern. Scoliosis. Right upper quadrant clips. No acute abdominal abnormality. Electronically Signed by Trung Jensen MD 11/12/2018 08:58 A
[2018-11-12 08:42] LABS: BASO % 0.4 % (0.0-1.0); EOS # 0.1 10^3/uL (0.0-0.50); EOS % 2.7 % (0.0-3.0); HEMATOCRIT 37.8 % (36.0-47.0); HEMOGLOBIN 11.7 g/dl (12.0-15.5); LYMPH # 1.4 10^3/uL (1.5-4.5); LYMPH % 29.3 % (24.0-44.0); MEAN CORPUSCULAR HEMOGLOBIN 28.4 pg (27.0-33.0); MEAN CORPUSCULAR VOLUME 91.7 fl (80.0-96.0); MONO # 0.3 10^3/uL (0.0-0.8); MONO % 5.9 % (0.0-5.0); NEUTROPHILS # 2.9 10^3/uL (1.8-7.7); NEUTROPHILS % 61.3 % (36.0-66.0); PLATELET COUNT, AUTOMATED 229 10^3/uL (150-450); RED BLOOD COUNT 4.12 10^6/uL (4.00-5.40); WHITE BLOOD COUNT 4.8 10^3/uL (4.0-10.0)
[2018-11-12 08:54] LABS: ALBUMIN 3.8 GM/DL (3.2-5.2); ALT/SGPT 25 U/L (12-78); BILIRUBIN,DIRECT < 0.1 MG/DL (0.0-0.2); BILIRUBIN,TOTAL 0.2 MG/DL (0.2-1.0); BLOOD UREA NITROGEN 20 MG/DL (7-18); CALCIUM LEVEL 10.8 MG/DL (8.8-10.2); CARBON DIOXIDE LEVEL 32 MEQ/L (21-32); CHLORIDE LEVEL 106 MEQ/L (98-107); CREATININE FOR GFR 0.87 MG/DL (0.55-1.30); GLOMERULAR FILTRATION RATE > 60.0 (>45); GLUCOSE, FASTING 97 MG/DL (70-100); LIPASE 184 U/L (73-393); POTASSIUM SERUM 4.3 MEQ/L (3.5-5.1); SODIUM LEVEL 142 MEQ/L (136-145); TOTAL PROTEIN 7.6 GM/DL (6.4-8.2)
[2018-11-12] MEDS ORDERED: PYRI1TAB5 PO (09:10)
[2018-11-12 09:38] VITALS: BP 148/86
== END 2018-11-12 09:49 | disposition home or self-care (01) ==
LOC: M ED 05:25
DX: R30.0 Dysuria (principal); E86.0 Dehydration; R10.9 Unspecified abdominal pain; R79.89 Other specified abnormal findings of blood chemistry; M25.571 Pain in right ankle and joints of right foot; G89.29 Other chronic pain; M54.9 Dorsalgia, unspecified; G43.909 Migraine, unspecified, not intractable, without status migrainosus; J45.909 Unspecified asthma, uncomplicated; K57.92 Diverticulitis of intestine, part unspecified, without perforation or abscess without bleeding; M41.9 Scoliosis, unspecified; Z87.891 Personal history of nicotine dependence; Z88.0 Allergy status to penicillin; Z88.8 Allergy status to other drugs, medicaments and biological substances; Z91.040 Latex allergy status; Z79.899 Other long term (current) drug therapy; Z79.01 Long term (current) use of a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; Z79.51 Long term (current) use of inhaled steroids

== ENCOUNTER 2019-02-06 08:31 | Emergency (ER) | payer MEDICARE, MEDICAID ==
[~2019-02-06] VITALS: Ht 149.9 cm; Wt 63.6 kg
[2019-02-06] MEDS ORDERED: AZELASTINE 137MCG NASAL SPY 30 ML (ASTELIN) ONE (09:00)
[2019-02-06] MEDS ORDERED: AZEL1SPR3 NARES (09:55)
[2019-02-06 10:11] VITALS: BP 156/93
== END 2019-02-06 10:34 | disposition home or self-care (01) ==
LOC: M ED 08:31
DX: J30.9 Allergic rhinitis, unspecified (principal); F31.9 Bipolar disorder, unspecified; G43.909 Migraine, unspecified, not intractable, without status migrainosus; J45.909 Unspecified asthma, uncomplicated; J44.9 Chronic obstructive pulmonary disease, unspecified; K21.9 Gastro-esophageal reflux disease without esophagitis; Z86.718 Personal history of other venous thrombosis and embolism; I80.9 Phlebitis and thrombophlebitis of unspecified site; N31.9 Neuromuscular dysfunction of bladder, unspecified; Z79.01 Long term (current) use of a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; Z79.899 Other long term (current) drug therapy; Z88.0 Allergy status to penicillin; Z88.8 Allergy status to other drugs, medicaments and biological substances; Z91.040 Latex allergy status

== ENCOUNTER 2019-03-09 08:37 | Emergency (ER) | payer MEDICARE, MEDICAID ==
[~2019-03-09 08:37] MED LIST changes: +AZEL1SPR3 NARES; -VICO7.5T11 PO; +VICO7.5T12 PO
[2019-03-09] MEDS ORDERED: ACETAMINOPHEN 325 MG TAB PO ONE (11:30)
--- NOTE | 2019-03-09 11:30 | REP ---
CT BRAIN WITHOUT CONTRAST: CT brain performed without IV contrast and compared to prior study of 07/29/2016. There is mild age related atrophy. There is no midline shift or mass effect. Crump-white differentiation is well maintained. There is no acute intracranial hemorrhage or extra-axial fluid collection. There is no skull fracture. IMPRESSION: No acute intracranial hemorrhage or skull fracture. Electronically Signed by Andrei Crump MD 03/10/2019 09:34 A
--- NOTE | 2019-03-09 11:32 | REP ---
RIGHT ANKLE, FOUR VIEWS: Four views of the right ankle are performed. There is no acute fracture or dislocation. The ankle mortise is anatomic. There is mild to moderate inferior calcaneal spurring. A rounded calcific density at the dorsal aspect of the talonavicular joint could represent an old fracture. IMPRESSION: No acute fracture or dislocation. Electronically Signed by Andrei Crump MD 03/10/2019 09:34 A
--- NOTE | 2019-03-09 11:35 | REP ---
LUMBOSACRAL SPINE, FIVE VIEWS: Five views of the lumbosacral spine are performed and compared to a prior study of 10/10/2016. No definite compression fracture is seen. There is fairly significant right thoracolumbar scoliosis which somewhat limits the exam. Diffuse disc space narrowing, subchondral sclerosis, and spurring is noted once again with vacuum phenomenon at L4-5 and L5-S1. There is also sclerosis and spurring at the posterior facet joints diffusely. IMPRESSION: Diffuse degenerative changes with significant right thoracolumbar scoliosis. No definite acute fracture or dislocation. Electronically Signed by Andrei Crump MD 03/10/2019 09:38 A
[2019-03-09 11:53] VITALS: BP 180/90
== END 2019-03-09 11:58 | disposition home or self-care (01) ==
LOC: M ED 08:37 → EDBD 08:37 → M ED 11:58
DX: S93.401A Sprain of unspecified ligament of right ankle, initial encounter (principal); S90.31XA Contusion of right foot, initial encounter; M54.5 Low back pain; W01.0XXA Fall on same level from slipping, tripping and stumbling without subsequent striking against object, initial encounter; Y92.092 Bedroom in other non-institutional residence as the place of occurrence of the external cause; N31.9 Neuromuscular dysfunction of bladder, unspecified; Z86.718 Personal history of other venous thrombosis and embolism; K21.9 Gastro-esophageal reflux disease without esophagitis; K58.9 Irritable bowel syndrome, unspecified; F41.9 Anxiety disorder, unspecified; F32.9 Major depressive disorder, single episode, unspecified; M51.36 Other intervertebral disc degeneration, lumbar region; Z88.0 Allergy status to penicillin; Z88.8 Allergy status to other drugs, medicaments and biological substances; Z88.1 Allergy status to other antibiotic agents; Z91.040 Latex allergy status; Z79.899 Other long term (current) drug therapy; Z79.01 Long term (current) use of a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; Z79.51 Long term (current) use of inhaled steroids

== ENCOUNTER → 2019-03-18 | Outpatient (REF) | payer MEDICARE, MEDICAID | LOC: M LAB REF 16:20 | PROVIDERS: ATTEND Nurse Practitioner Adult Health | DX: E83.52 Hypercalcemia (principal) ==

== ENCOUNTER 2019-03-27 06:32 | Emergency (ER) | payer MEDICARE, MEDICAID ==
[~2019-03-27] VITALS: Ht 149.9 cm; Wt 72.7 kg
--- NOTE | 2019-03-27 08:09 | REP ---
Clinical: Right ankle pain. Technique: AP, lateral, bilateral oblique views of the right ankle. Findings: Age-related osteopenia and degenerative changes are appreciated and limit evaluation for subtle injury. Lateral soft tissue swelling is appreciated. No obvious acute fracture or dislocation. Ankle mortise appears intact. Impression: Lateral swelling. No definite acute fracture. Electronically Signed by Boyd Ford MD 03/27/2019 08:01 A
--- NOTE | 2019-03-27 08:11 | REP ---
Clinical: Abdominal pain. Technique: Single supine view of the abdomen and pelvis. Comparison: 11/12/2018. Findings: Chronic rotoscoliosis. Bowel gas pattern is nonspecific and without obstruction or perforation. Fecal stasis and constipation cannot be excluded. No organomegaly. Impression: Findings suggest chronic constipation and appears stable compared to 11/12/2018. Electronically Signed by Boyd Ford MD 03/27/2019 08:02 A
[2019-03-27 09:30] VITALS: BP 142/88
== END 2019-03-27 09:34 | disposition home or self-care (01) ==
LOC: M ED 06:32
DX: K59.00 Constipation, unspecified (principal); S93.401A Sprain of unspecified ligament of right ankle, initial encounter; Y92.89 Other specified places as the place of occurrence of the external cause; Y93.89 Activity, other specified; Y99.8 Other external cause status; X58.XXXA Exposure to other specified factors, initial encounter; M41.9 Scoliosis, unspecified; R10.9 Unspecified abdominal pain; F31.9 Bipolar disorder, unspecified; J45.909 Unspecified asthma, uncomplicated; Z79.891 Long term (current) use of opiate analgesic; Z79.899 Other long term (current) drug therapy; Z88.0 Allergy status to penicillin; Z88.8 Allergy status to other drugs, medicaments and biological substances; Z90.49 Acquired absence of other specified parts of digestive tract

== ENCOUNTER 2019-06-12 01:19 | Emergency (ER) | payer MEDICARE, MEDICAID ==
[~2019-06-12] VITALS: Ht 149.9 cm; Wt 70.5 kg
[~2019-06-12 01:19] MED LIST changes: -OMEP40CA2 PO; +OMEP40CA97 PO
[2019-06-12] MEDS ORDERED: KLON0.5T PO (01:33)
[2019-06-12] MEDS ORDERED: LAMI25TA PO (01:43)
[2019-06-12] MEDS ORDERED: MECL-68 PO (01:43)
[2019-06-12] MEDS ORDERED: MOTR200T44 PO (01:43)
[2019-06-12] MEDS ORDERED: K-TA10TA2 PO (01:43)
[2019-06-12] MEDS ORDERED: ZITHTAB PO (01:52)
[2019-06-12 02:00] VITALS: BP 166/87
[2019-06-12] MEDS ORDERED: AZITHROMYCIN 250 MG TAB PO ONE (02:00)
== END 2019-06-12 02:45 | disposition home or self-care (01) ==
LOC: M ED 01:19
DX: J02.9 Acute pharyngitis, unspecified (principal); H81.09 Meniere's disease, unspecified ear; F31.9 Bipolar disorder, unspecified; Z79.01 Long term (current) use of a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; Z79.899 Other long term (current) drug therapy; Z88.0 Allergy status to penicillin; Z88.8 Allergy status to other drugs, medicaments and biological substances; Z91.040 Latex allergy status

== ENCOUNTER 2019-07-05 02:13 | Emergency (ER) | payer MEDICARE, MEDICAID ==
[~2019-07-05] VITALS: Ht 149.9 cm; Wt 70.4 kg
[~2019-07-05 02:13] MED LIST changes: +CLON0.5T2 PO; -CLON0.5T8 PO
[2019-07-05] MEDS ORDERED: CYCL10TA PO (04:43)
[2019-07-05] MEDS ORDERED: BANO25CA PO (04:43)
[2019-07-05] MEDS ORDERED: PHENAZOPYRIDINE 100 MG TAB PO ONE (05:15)
[2019-07-05 05:29] VITALS: BP 141/87
== END 2019-07-05 05:30 | disposition home or self-care (01) ==
LOC: M ED 02:13
DX: K59.00 Constipation, unspecified (principal); R39.9 Unspecified symptoms and signs involving the genitourinary system; N95.1 Menopausal and female climacteric states; K21.9 Gastro-esophageal reflux disease without esophagitis; Z86.718 Personal history of other venous thrombosis and embolism; Z79.01 Long term (current) use of a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; Z79.899 Other long term (current) drug therapy; Z88.0 Allergy status to penicillin; Z88.8 Allergy status to other drugs, medicaments and biological substances; Z91.040 Latex allergy status

== ENCOUNTER 2019-07-23 16:12 | Emergency (ER) | payer MEDICARE, MEDICAID ==
[~2019-07-23] VITALS: Ht 157.5 cm; Wt 72.7 kg
[2019-07-23 17:25] LABS: BASO % 0.3 % (0.0-1.0); EOS # 0.1 10^3/uL (0.0-0.5); EOS % 2.1 % (0.0-3.0); HEMATOCRIT 37.6 % (36.0-47.0); HEMOGLOBIN 11.6 g/dl (12.0-15.5); LYMPH # 1.1 10^3/uL (1.5-5.0); MEAN CORPUSCULAR HGB CONC 30.9 g/dl (32.0-36.5); MONO # 0.3 10^3/uL (0.0-0.8); MONO % 4.8 % (0.0-5.0); NEUTROPHILS # 4.3 10^3/uL (1.5-8.5); NEUTROPHILS % 73.6 % (36.0-66.0); PLATELET COUNT, AUTOMATED 222 10^3/uL (150-450); WHITE BLOOD COUNT 5.8 10^3/uL (4.0-10.0)
[2019-07-23 18:04] LABS: BLOOD UREA NITROGEN 23 MG/DL (7-18); CALCIUM LEVEL 9.1 MG/DL (8.8-10.2); CARBON DIOXIDE LEVEL 27 MEQ/L (21-32); CHLORIDE LEVEL 108 MEQ/L (98-107); CK-MB VALUE MASS 1.8 NG/ML (<3.6); CPK CREATINE PHOSPHOKINASE 95 U/L (26-192); GLOMERULAR FILTRATION RATE 59.6 (>45); GLUCOSE, FASTING 161 MG/DL (70-100); MB/CK RELATIVE INDEX 1.89 (< OR =4); POTASSIUM SERUM 3.8 MEQ/L (3.5-5.1); SODIUM LEVEL 143 MEQ/L (136-145); THYROID STIMULATING HORMONE 0.327 uIU/ML (0.358-3.740); TROPONIN I < 0.02 NG/ML (< 0.10)
--- NOTE | 2019-07-23 18:08 | REP ---
Portable chest x-ray: Single view. History: Syncope. Comparison chest x-ray: September 17, 2018. Findings: Today's views exposed at a somewhat lesser level of inspiration. No infiltrate is seen. Heart is mildly prominent, unchanged. There are old healed rib fractures on the right. There is a levoconvex curve in the thoracic spine and a dextroconvex scoliosis in the lumbar spine, unchanged. Impression: Thoracolumbar scoliosis. Old healed rib fractures on the right. Borderline heart size. Otherwise no acute disease. Electronically Signed by Trung Jensen MD 07/23/2019 06:43 P
--- NOTE | 2019-07-23 19:51 | ECGEPIP ---
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
[2019-07-23] MEDS ORDERED: methylPREDNISolone INJ 125 MG/2 ML VIAL (J2930) IV ONE (20:30)
[2019-07-23] MEDS ORDERED: LevoFLOXacin 250 MG TABLET PO ONE (20:30)
[2019-07-23] MEDS ORDERED: NS 500 ML IV ONE (20:30)
[2019-07-23] MEDS ORDERED: PRED20TA PO (20:38)
[2019-07-23] MEDS ORDERED: LEVA1TAB2 PO (20:38)
[2019-07-23 21:30] VITALS: BP 131/65
== END 2019-07-23 21:59 | disposition home or self-care (01) ==
LOC: M ED 16:12 → EDBD 16:12 → M ED 21:59
DX: J01.90 Acute sinusitis, unspecified (principal); N31.8 Other neuromuscular dysfunction of bladder; F31.9 Bipolar disorder, unspecified; M41.35 Thoracogenic scoliosis, thoracolumbar region; Z87.81 Personal history of (healed) traumatic fracture; Z79.01 Long term (current) use of a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; Z79.899 Other long term (current) drug therapy; Z88.0 Allergy status to penicillin; Z88.8 Allergy status to other drugs, medicaments and biological substances; Z91.040 Latex allergy status
CPT/HCPCS: 71045; 80048; 82550; 82553; 84443; 84484; 85025; 93005; 93041; 94760; 96361; 96374; 99285; J2930

== ENCOUNTER 2019-09-02 07:35 | Emergency (ER) | payer MEDICARE, MEDICAID ==
[~2019-09-02 07:35] MED LIST changes: +LEVA1TAB2 PO; -MECL-68 PO; +MECL1TAB31 PO; +PRED20TA PO
[2019-09-02 08:30] VITALS: BP 153/95
== END 2019-09-02 08:53 | disposition home or self-care (01) ==
LOC: M ED 07:35 → EDBD 07:35 → M ED 08:53
DX: F45.0 Somatization disorder (principal); F31.9 Bipolar disorder, unspecified; K21.9 Gastro-esophageal reflux disease without esophagitis; J45.909 Unspecified asthma, uncomplicated; G89.29 Other chronic pain; R10.9 Unspecified abdominal pain; Z79.01 Long term (current) use of a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; Z79.899 Other long term (current) drug therapy; Z88.0 Allergy status to penicillin; Z88.6 Allergy status to analgesic agent; Z88.8 Allergy status to other drugs, medicaments and biological substances; Z91.040 Latex allergy status

== ENCOUNTER 2019-09-26 08:51 | Emergency (ER) | payer MEDICARE, MEDICAID ==
[~2019-09-26] VITALS: Ht 149.9 cm; Wt 75.1 kg
--- NOTE | 2019-09-26 09:53 | REP ---
Chest x-ray: Two views. History: Shortness of breath and cough. Comparison chest x-ray: July 23, 2019. Findings: The lungs are symmetrically aerated and free of infiltrate. Pleural angles are sharp. Heart size is borderline unchanged. The aorta is tortuous. There are old healed rib fractures on the right. No infiltrate is seen. There are clips in right upper quadrant. Impression: No active disease. Electronically Signed by Trung Jensen MD 09/26/2019 09:45 A
[2019-09-26 09:55] VITALS: BP 146/70
[2019-09-26 10:20] LABS: INFLUENZA A AMPLIFICATION NEGATIVE (NEGATIVE); INFLUENZA B AMPLIFICATION NEGATIVE (NEGATIVE)
[2019-09-26] MEDS ORDERED: OXYMETAZOLINE NASAL SPRAY (AFRIN) ONE (10:45)
[2019-09-26] MEDS ORDERED: BENZ200C70 PO (10:46)
== END 2019-09-26 11:16 | disposition home or self-care (01) ==
LOC: M ED 08:51
DX: J06.9 Acute upper respiratory infection, unspecified (principal); B34.9 Viral infection, unspecified; R05 Cough; J45.909 Unspecified asthma, uncomplicated; E16.2 Hypoglycemia, unspecified; Z79.01 Long term (current) use of a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; Z79.899 Other long term (current) drug therapy; Z88.0 Allergy status to penicillin; Z88.6 Allergy status to analgesic agent; Z88.8 Allergy status to other drugs, medicaments and biological substances; Z91.040 Latex allergy status

== ENCOUNTER 2019-10-02 13:27 | Emergency (ER) | payer MEDICARE, MEDICAID ==
[~2019-10-02] VITALS: Ht 149.9 cm; Wt 75.1 kg
[~2019-10-02 13:27] MED LIST changes: +BENZ200C70 PO
[2019-10-02] MEDS ORDERED: NS 1,000 ML IV SCH (14:18)
[2019-10-02 15:07] LABS: BASO % 0.4 % (0.0-1.0); EOS # 0.2 10^3/uL (0.0-0.5); EOS % 2.9 % (0.0-3.0); HEMATOCRIT 38.9 % (36.0-47.0); HEMOGLOBIN 12.2 g/dl (12.0-15.5); LYMPH # 1.9 10^3/uL (1.5-5.0); LYMPH % 26.7 % (24.0-44.0); MEAN CORPUSCULAR HEMOGLOBIN 29.7 pg (27.0-33.0); MEAN CORPUSCULAR HGB CONC 31.4 g/dl (32.0-36.5); MEAN CORPUSCULAR VOLUME 94.6 fl (80.0-96.0); MONO # 0.6 10^3/uL (0.0-0.8); MONO % 7.9 % (0.0-5.0); NEUTROPHILS # 4.5 10^3/uL (1.5-8.5); PLATELET COUNT, AUTOMATED 215 10^3/uL (150-450); RED BLOOD COUNT 4.11 10^6/uL (4.00-5.40); WHITE BLOOD COUNT 7.2 10^3/uL (4.0-10.0)
[2019-10-02 15:39] LABS: ALBUMIN 3.5 GM/DL (3.2-5.2); ALT/SGPT 20 U/L (12-78); BILIRUBIN,DIRECT < 0.1 MG/DL (0.0-0.2); BILIRUBIN,TOTAL 0.2 MG/DL (0.2-1.0); BLOOD UREA NITROGEN 15 MG/DL (7-18); CALCIUM LEVEL 8.6 MG/DL (8.8-10.2); CARBON DIOXIDE LEVEL 31 MEQ/L (21-32); CHLORIDE LEVEL 109 MEQ/L (98-107); GLOMERULAR FILTRATION RATE > 60.0 (>45); GLUCOSE, FASTING 118 MG/DL (70-100); LIPASE 177 U/L (73-393); POTASSIUM SERUM 4.3 MEQ/L (3.5-5.1); SODIUM LEVEL 143 MEQ/L (136-145)
[2019-10-02 16:00] VITALS: BP 129/60
--- NOTE | 2019-10-03 10:03 | REP ---
REASON FOR EXAM: Generalized abdominal pain and diarrhea. COMPARISON: Multiple, the latest 07/25/2018, a contrast-enhanced exam. There is no change in the lung bases. Limited evaluation of the solid intra-abdominal organs shows no significant changes from the prior exam. There are hepatic cysts, status quo. Surgical clips are again seen in the gallbladder fossa from previous cholecystectomy. There is common bile duct dilatation, status quo. Limited evaluation of the pancreas, adrenal glands, and kidneys shows no significant changes. The bowel loops and their mesenteries are unremarkable. There is no free fluid or free air. CT pelvis: There is no mass or adenopathy. There is no free fluid or free air. The bowel loops and their mesenteries are unremarkable. Bone window technique throughout the examination shows chronic osseous changes, status quo. IMPRESSION: Limited examination shows essentially stable chronic changes without evidence of acute disease. Unreviewed
[2019-10-03] MEDS ORDERED: BACT800T5 PO (10:24)
== END 2019-10-02 17:11 | disposition home or self-care (01) ==
LOC: M ED 13:27
DX: R19.7 Diarrhea, unspecified (principal); J45.909 Unspecified asthma, uncomplicated; K21.9 Gastro-esophageal reflux disease without esophagitis; G43.909 Migraine, unspecified, not intractable, without status migrainosus; F41.9 Anxiety disorder, unspecified; F32.9 Major depressive disorder, single episode, unspecified; Z79.01 Long term (current) use of a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; Z79.899 Other long term (current) drug therapy; Z88.0 Allergy status to penicillin; Z88.6 Allergy status to analgesic agent; Z88.8 Allergy status to other drugs, medicaments and biological substances; Z91.040 Latex allergy status

== ENCOUNTER 2019-10-03 06:32 | Emergency (ER) | payer MEDICARE, MEDICAID ==
[~2019-10-03] VITALS: Ht 149.9 cm; Wt 72.7 kg
[2019-10-03 08:49] LABS: BASO % 0.4 % (0.0-1.0); EOS # 0.2 10^3/uL (0.0-0.5); EOS % 3.3 % (0.0-3.0); HEMATOCRIT 39.8 % (36.0-47.0); HEMOGLOBIN 12.4 g/dl (12.0-15.5); LYMPH # 1.6 10^3/uL (1.5-5.0); LYMPH % 28.3 % (24.0-44.0); MEAN CORPUSCULAR HEMOGLOBIN 29.6 pg (27.0-33.0); MEAN CORPUSCULAR HGB CONC 31.2 g/dl (32.0-36.5); MONO # 0.3 10^3/uL (0.0-0.8); NEUTROPHILS # 3.3 10^3/uL (1.5-8.5); NEUTROPHILS % 61.1 % (36.0-66.0); PLATELET COUNT, AUTOMATED 222 10^3/uL (150-450); RED BLOOD COUNT 4.19 10^6/uL (4.00-5.40); WHITE BLOOD COUNT 5.5 10^3/uL (4.0-10.0)
[2019-10-03 09:06] LABS: ALBUMIN 3.6 GM/DL (3.2-5.2); ALT/SGPT 21 U/L (12-78); BILIRUBIN,DIRECT < 0.1 MG/DL (0.0-0.2); BILIRUBIN,TOTAL 0.3 MG/DL (0.2-1.0); TOTAL PROTEIN 7.1 GM/DL (6.4-8.2)
[2019-10-03] MEDS ORDERED: BACT800T5 PO (10:24)
[2019-10-03] MEDS ORDERED: BACTRIM 160MG/800MG DS TAB PO ONE ×2 (10:30→11:00)
[2019-10-03 12:34] VITALS: BP 119/75
== END 2019-10-03 12:40 | disposition home or self-care (01) ==
LOC: M ED 06:32
DX: N39.0 Urinary tract infection, site not specified (principal); F03.90 Unspecified dementia, unspecified severity, without behavioral disturbance, psychotic disturbance, mood disturbance, and anxiety; M54.9 Dorsalgia, unspecified; Z87.440 Personal history of urinary (tract) infections; F41.9 Anxiety disorder, unspecified; F32.9 Major depressive disorder, single episode, unspecified; Z79.01 Long term (current) use of a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; Z79.899 Other long term (current) drug therapy; Z88.0 Allergy status to penicillin; Z88.8 Allergy status to other drugs, medicaments and biological substances; Z91.040 Latex allergy status

== ENCOUNTER 2019-11-06 08:21 | Emergency (ER) | payer MEDICARE, MEDICAID ==
[~2019-11-06] VITALS: Ht 175.3 cm; Wt 72.7 kg
[~2019-11-06 08:21] MED LIST changes: +CYCL-707 PO; -CYCL10TA PO
[2019-11-06] MEDS ORDERED: SUDO30TA PO (08:54)
[2019-11-06] MEDS ORDERED: IBUP200C33 PO (08:54)
[2019-11-06] MEDS ORDERED: CALCIUM CARBONATE PO (08:54)
[2019-11-06] MEDS ORDERED: CLON0.5T2 PO (08:54)
[2019-11-06 09:30] VITALS: BP 163/94
[2019-11-08] MEDS ORDERED: MACR100C43 PO (08:09)
== END 2019-11-06 10:28 | disposition home or self-care (01) ==
LOC: M ED 08:21 → EDBD 08:21 → M ED 10:28
DX: M25.571 Pain in right ankle and joints of right foot (principal); R30.0 Dysuria; J30.9 Allergic rhinitis, unspecified; J02.9 Acute pharyngitis, unspecified; Z88.0 Allergy status to penicillin; Z88.6 Allergy status to analgesic agent; Z88.8 Allergy status to other drugs, medicaments and biological substances; Z88.5 Allergy status to narcotic agent; Z91.040 Latex allergy status; Z79.899 Other long term (current) drug therapy; Z79.01 Long term (current) use of a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

== ENCOUNTER 2019-11-27 07:25 | Emergency (ER) | payer MEDICARE, MEDICAID ==
[~2019-11-27] VITALS: Ht 149.9 cm; Wt 61.4 kg
[~2019-11-27 07:25] MED LIST changes: +CALCIUM CARBONATE PO; +IBUP200C33 PO; -MAPA325T2 PO; +MAPA325T8 PO
[2019-11-27] MEDS ORDERED: PYRI1TAB5 PO (08:39)
[2019-11-27] MEDS ORDERED: BACT800T5 PO (08:39)
[2019-11-27] MEDS ORDERED: BACTRIM 160MG/800MG DS TAB PO ONE (08:45)
[2019-11-27] MEDS ORDERED: PHENAZOPYRIDINE 100 MG TAB PO ONE (08:45)
[2019-11-27 08:54] VITALS: BP 138/74
== END 2019-11-27 09:13 | disposition home or self-care (01) ==
LOC: M ED 07:25
DX: N39.0 Urinary tract infection, site not specified (principal); N30.00 Acute cystitis without hematuria; Z88.0 Allergy status to penicillin; Z88.8 Allergy status to other drugs, medicaments and biological substances; Z91.040 Latex allergy status

== ENCOUNTER 2019-12-26 05:00 | Emergency (ER) | payer MEDICARE, MEDICAID ==
[~2019-12-26] VITALS: Ht 149.9 cm; Wt 72.7 kg
[~2019-12-26 05:00] MED LIST changes: -LACT10SO29 PO; +LACT20EL PO
[2019-12-26 05:11] VITALS: BP 126/64
[2019-12-26] MEDS ORDERED: FOSFOMYCIN TROMETHAMINE 3 GM POWDER PACKET (MONUROL) PO ONE (06:15)
== END 2019-12-26 07:24 | disposition home or self-care (01) ==
LOC: M ED 05:00
DX: N39.0 Urinary tract infection, site not specified (principal); F41.9 Anxiety disorder, unspecified; M54.9 Dorsalgia, unspecified; G89.29 Other chronic pain; Z88.0 Allergy status to penicillin; Z88.6 Allergy status to analgesic agent; Z88.8 Allergy status to other drugs, medicaments and biological substances; Z88.1 Allergy status to other antibiotic agents; Z91.040 Latex allergy status; Z79.899 Other long term (current) drug therapy; Z79.01 Long term (current) use of a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

== ENCOUNTER 2020-01-01 08:02 | Emergency (ER) | payer MEDICARE, MEDICAID ==
[2020-01-01 08:11] VITALS: BP 145/63
== END 2020-01-01 09:48 | disposition home or self-care (01) ==
LOC: EDBD 08:02 → M ED 08:02
DX: R30.0 Dysuria (principal); L98.9 Disorder of the skin and subcutaneous tissue, unspecified; G43.909 Migraine, unspecified, not intractable, without status migrainosus; K21.9 Gastro-esophageal reflux disease without esophagitis; F41.9 Anxiety disorder, unspecified; F32.9 Major depressive disorder, single episode, unspecified; Z79.01 Long term (current) use of a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; Z79.899 Other long term (current) drug therapy; Z88.0 Allergy status to penicillin; Z88.6 Allergy status to analgesic agent; Z88.8 Allergy status to other drugs, medicaments and biological substances; Z91.040 Latex allergy status

== ENCOUNTER 2020-01-23 08:28 | Emergency (ER) | payer MEDICARE, MEDICAID ==
[~2020-01-23] VITALS: Ht 149.9 cm; Wt 72.3 kg
[2020-01-23] MEDS ORDERED: LAMI25TA PO (09:04)
[2020-01-23] MEDS ORDERED: NITROFURANTOIN (MACROBID) 100 MG CAP PO ONE (09:30)
[2020-01-23] MEDS ORDERED: MACR100C43 PO (11:07)
[2020-01-23 11:12] VITALS: BP 152/84
== END 2020-01-23 11:26 | disposition home or self-care (01) ==
LOC: M ED 08:28 → EDBD 08:28 → M ED 11:26
DX: N39.0 Urinary tract infection, site not specified (principal); F41.9 Anxiety disorder, unspecified; F32.9 Major depressive disorder, single episode, unspecified; Z87.440 Personal history of urinary (tract) infections; Z79.01 Long term (current) use of a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; Z79.899 Other long term (current) drug therapy; Z88.0 Allergy status to penicillin; Z88.6 Allergy status to analgesic agent; Z88.8 Allergy status to other drugs, medicaments and biological substances; Z91.040 Latex allergy status

== ENCOUNTER 2020-01-29 05:22 | Emergency (ER) | payer MEDICARE, MEDICAID ==
[~2020-01-29] VITALS: Ht 149.9 cm; Wt 70.5 kg
[2020-01-29 08:51] VITALS: BP 149/82
--- NOTE | 2020-01-29 10:01 | REP ---
RIGHT ANKLE COMPLETE: 01/29/2020. Clinical history: Ankle pain and tenderness. Comparison: 03/27/2019. Findings: Four view show the ankle mortise joint intact. There is no talar dome osteochondral defect. The distal tibia shows no fracture or focal bone lesion. The distal fibula is without evidence of acute fracture. There is a small spur at its inferior margin. Subtalar joints are intact. Prominent plantar calcaneal spur. There is a dorsal spur at the articular aspect of the anterior process of the talus as well as an ossific density superimposed over the talonavicular joint on that same lateral view representing old avulsion. This is unchanged from previous study. Visualized tarsal bones and proximal metatarsals included were unremarkable. Soft tissue swelling anterolateral aspect of the ankle. Impression: 1. Soft tissue swelling anterolateral ankle without visible or displaced acute fracture. 2. Spurring at the dorsal aspect of the talonavicular joint calculi from the talus and its anterior process and ossific density above the joint representing old avulsion. All of this stable. 3. Mortise joint preserved. 4. Plantar calcaneal spur. Electronically Signed by Arthur Serra MD 01/29/2020 09:53 A
--- NOTE | 2020-01-29 10:09 | REP ---
RIGHT FOOT COMPLETE: 01/29/2020. Comparison: 11/24/2012, CT 03/05/2018, ankle 03/27/2019. Clinical history: Pain and tenderness right foot. Findings: Four views are provided. Dorsal spur at the talonavicular joint on the anterior process of the talus and an ossific density adjacent to that spur overlying the joint proper with well corticated margins are again seen and unchanged from ankle series last year. It is new compared to the radiograph in 2017 and is seen on a CT in 2018. Subtalar joints are intact. There is a plantar calcaneal spur. The tarsal bones and articulations are grossly intact. Metatarsals and TMP joints were unremarkable. MTP joints show mild narrowing at the first MTP joint with small marginal osteophytes. IP joint of the great toe with small spurs. The other IP joints with slight narrowing but no significant spur formation. There is soft tissue swelling anterolateral aspect of the ankle and hind foot. Impression: 1. Some degenerative changes at the first MTP joint with heel spur, degenerative change at the talonavicular joint and an old avulsion fragment above the talonavicular joint, stable from last fall. 2. Soft tissue swelling anterolateral aspect of the ankle and hind foot. 3. No new finding. Electronically Signed by Arthur Serra MD 01/29/2020 10:00 A
== END 2020-01-29 09:07 | disposition home or self-care (01) ==
LOC: EDBD 05:22 → M ED 05:22
DX: R23.4 Changes in skin texture (principal); M77.31 Calcaneal spur, right foot; Z79.01 Long term (current) use of a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; Z79.899 Other long term (current) drug therapy; Z88.0 Allergy status to penicillin; Z88.6 Allergy status to analgesic agent; Z88.8 Allergy status to other drugs, medicaments and biological substances; Z91.040 Latex allergy status

== ENCOUNTER 2020-02-12 06:02 | Emergency (ER) | payer MEDICARE, MEDICAID ==
[~2020-02-12 06:02] MED LIST changes: -GAS125CH PO; -SUDO30TA PO; +SUDO30TA2 PO; +[UNRECOGNIZED DRUG - CODE] PO
== END 2020-02-12 09:20 | disposition home or self-care (01) ==
LOC: M ED 06:02
DX: N30.90 Cystitis, unspecified without hematuria (principal); S93.402A Sprain of unspecified ligament of left ankle, initial encounter; X50.9XXA Other and unspecified overexertion or strenuous movements or postures, initial encounter; Y92.512 Supermarket, store or market as the place of occurrence of the external cause

== ENCOUNTER 2020-02-19 07:45 | Emergency (ER) | payer MEDICARE, MEDICAID ==
[~2020-02-19 07:45] MED LIST changes: +LIDOCAINE 5% (LIDODERM) PATCH As Ordered ONE; +LIDOCAINE 5% (LIDODERM) PATCH ONE
== END 2020-02-19 08:20 | disposition home or self-care (01) ==
LOC: M ED 07:45
DX: M54.5 Low back pain (principal); M19.90 Unspecified osteoarthritis, unspecified site; E16.2 Hypoglycemia, unspecified; Z86.718 Personal history of other venous thrombosis and embolism

== ENCOUNTER 2020-02-25 11:45 | Emergency (ER) | payer MEDICARE, MEDICAID ==
[~2020-02-25 11:45] MED LIST changes: -LIDOCAINE 5% (LIDODERM) PATCH As Ordered ONE; -LIDOCAINE 5% (LIDODERM) PATCH ONE
--- NOTE | 2020-04-12 10:43 | REP ---
SOFT TISSUE NECK X-RAY: HISTORY: Soft tissue neck foreign body sensation. Feels like chicken bone stuck. FINDINGS: AP and lateral views were presented. There is some vascular and thyroid cartilage calcification noted. No opaque foreign body is appreciated. There are degenerative disc changes at C5-6 with disc space narrowing and anterior osteophyte formation. There is some straightening. The patient is edentulous. No glottic or subglottic airway narrowing is seen. IMPRESSION: No opaque foreign body seen. MTDD
== END 2020-02-25 15:34 | disposition home or self-care (01) ==
LOC: M ED 11:45
DX: S10.15XA Superficial foreign body of throat, initial encounter (principal); X58.XXXA Exposure to other specified factors, initial encounter; Y92.9 Unspecified place or not applicable; Y93.89 Activity, other specified; Y99.9 Unspecified external cause status

== ENCOUNTER 2020-04-01 05:13 | Emergency (ER) | payer MEDICARE, MEDICAID ==
[~2020-04-01] VITALS: Ht 149.9 cm; Wt 68.2 kg
[2020-04-01] MEDS ORDERED: ACET1TAB55 PO (05:35)
[2020-04-01] MEDS ORDERED: ADV100INH INH (05:35)
[2020-04-01] MEDS ORDERED: FLUTISP NARES (05:35)
[2020-04-01] MEDS ORDERED: CYCL-707 PO (05:35)
[2020-04-01] MEDS ORDERED: DIPH25TA4 PO (05:35)
[2020-04-01] MEDS ORDERED: ACETAMINOPHEN TAB 650MG DOSE (2X325MG) PO ONE (09:00)
[2020-04-01 10:15] VITALS: BP 145/86
--- NOTE | 2020-04-01 10:17 | REPVR ---
PROCEDURE INFORMATION: Exam: XR Right Tibia and Fibula Exam date and time: 04/01/2020 9:10 AM Age: 64 years old Clinical indication: Pain; Lower leg; Right; Additional info: Reported trauma TECHNIQUE: Imaging protocol: XR Right tibia and fibula. Views: 2 views. COMPARISON: CR Knee, complete 08/02/2016 5:42 PM FINDINGS: Bones/joints: Degenerative change at the ankle with bulky anterior talar osteophyte formation and large plantar enthesophyte. Large patellofemoral osteophytes. No acute fracture or traumatic malalignment. Soft tissues: Normal. IMPRESSION: No acute osseous abnormality. Electronically signed by: Sixto Galloway On 04/01/2020 10:17:37 AM
--- NOTE | 2020-04-01 10:19 | REPVR ---
PROCEDURE INFORMATION: Exam: XR Lumbosacral Spine, 4 or 5 Views Exam date and time: 04/01/2020 9:10 AM Age: 64 years old Clinical indication: Low back pain; Additional info: Reported trauma TECHNIQUE: Imaging protocol: XR of the lumbosacral spine, 4 or 5 views. COMPARISON: CR Spine. Lumbosacral, complete 03/09/2019 9:41 AM FINDINGS: Vertebrae: Severe dextroscoliosis again noted. There is moderate degenerative disc disease along the inner scoliotic curvature. No convincing acute lumbar spine fracture or traumatic malalignment. Soft tissues: Unremarkable. Intraperitoneal space: Right upper quadrant surgical clips are present. IMPRESSION: No acute lumbar spine fracture or traumatic malalignment within constraints of severe dextroscoliosis. If there are persistent symptoms, consider CT. Electronically signed by: Sixto Galloway On 04/01/2020 10:19:00 AM
[2020-04-01] MEDS ORDERED: PYRI1TAB5 PO (11:47)
== END 2020-04-01 10:45 | disposition home or self-care (01) ==
LOC: M ED 05:13
DX: R30.0 Dysuria (principal); Z79.899 Other long term (current) drug therapy; Z88.0 Allergy status to penicillin; Z88.8 Allergy status to other drugs, medicaments and biological substances; Z91.040 Latex allergy status

== ENCOUNTER 2020-04-23 11:14 | Inpatient (IN) | payer MEDICARE, MEDICAID ==
[~2020-04-23] VITALS: Ht 154.9 cm; Wt 68.0 kg
[~2020-04-23 11:14] MED LIST changes: +ACET1TAB55 PO; +DIPH25TA4 PO; +FLUTISP NARES
[2020-04-23] MEDS ORDERED: NS 1,000 ML IV ONE (11:45)
[2020-04-23 13:06] LABS: BASO % 0.4 % (0.0-1.0); EOS # 0.2 10^3/uL (0.0-0.5); EOS % 2.2 % (0.0-3.0); HEMATOCRIT 38.6 % (36.0-47.0); HEMOGLOBIN 12.1 g/dl (12.0-15.5); LYMPH # 1.7 10^3/uL (1.5-5.0); LYMPH % 25.2 % (24.0-44.0); MEAN CORPUSCULAR HEMOGLOBIN 29.7 pg (27.0-33.0); MEAN CORPUSCULAR HGB CONC 31.3 g/dl (32.0-36.5); MEAN CORPUSCULAR VOLUME 94.8 fl (80.0-96.0); MONO # 0.4 10^3/uL (0.0-0.8); MONO % 5.8 % (0.0-5.0); NEUTROPHILS # 4.5 10^3/uL (1.5-8.5); NEUTROPHILS % 66.3 % (36.0-66.0); PLATELET COUNT, AUTOMATED 219 10^3/uL (150-450); RED BLOOD COUNT 4.07 10^6/uL (4.00-5.40); WHITE BLOOD COUNT 6.8 10^3/uL (4.0-10.0)
[2020-04-23] MEDS: GASTROGRAFIN SOLUTION 30ML PO SCH ×2 (13:15→13:45)
[2020-04-23 13:16] LABS: INR 1.16
[2020-04-23 13:17] LABS: PARTIAL THROMBOPLASTIN TIME 32.5 SECONDS (24.2-38.5)
[2020-04-23 13:30] LABS: ALBUMIN 3.6 GM/DL (3.2-5.2); ALT/SGPT 24 U/L (12-78); BILIRUBIN,DIRECT < 0.1 MG/DL (0.0-0.2); BILIRUBIN,TOTAL 0.2 MG/DL (0.2-1.0); BLOOD UREA NITROGEN 18 MG/DL (7-18); CALCIUM LEVEL 9.7 MG/DL (8.8-10.2); CARBON DIOXIDE LEVEL 29 MEQ/L (21-32); CHLORIDE LEVEL 106 MEQ/L (98-107); CREATININE FOR GFR 0.96 MG/DL (0.55-1.30); GLOMERULAR FILTRATION RATE > 60.0 (>45); GLUCOSE, FASTING 106 MG/DL (70-100); LIPASE 244 U/L (73-393); POTASSIUM SERUM 4.2 MEQ/L (3.5-5.1); SODIUM LEVEL 140 MEQ/L (136-145); TOTAL PROTEIN 7.6 GM/DL (6.4-8.2)
[2020-04-23] MEDS ORDERED: ISOVUE-370 76% 100ML VIAL As Ordered ONE (13:41)
[2020-04-23 13:46] LABS: CPK CREATINE PHOSPHOKINASE 103 U/L (26-192); MB/CK RELATIVE INDEX 1.94 (< OR =4); TROPONIN I < 0.02 NG/ML (< 0.10)
--- NOTE | 2020-04-23 15:41 | REPVR ---
PROCEDURE INFORMATION: Exam: CT Abdomen And Pelvis With Contrast Exam date and time: 04/23/2020 2:24 PM Age: 64 years old Clinical indication: Abdominal pain; Additional info: Abd pain with heavy rectal bleeding TECHNIQUE: Imaging protocol: Computed tomography of the abdomen and pelvis with intravenous contrast. Radiation optimization: All CT scans at this facility use at least one of these dose optimization techniques: automated exposure control; mA and/or kV adjustment per patient size (includes targeted exams where dose is matched to clinical indication); or iterative reconstruction. Contrast material: ISOVUE 370; Contrast volume: 100 ml; Contrast route: INTRAVENOUS (IV); COMPARISON: 1. CT ABD PELVIS W/O CONTRAST 10/02/2019 2:29 PM 2. CR - Spine. Lumbosacral, complete 04/01/2020 9:10:[address] ABD/PEL W/IV CONTRAST ONLY 07/25/2018 8:20:47 PM FINDINGS: Lungs: There is mild discoid atelectasis or scar at the lung bases. Mildly tortuous distal thoracic aorta. Liver: Multiple small hypodense hepatic lesions are stable compared to 07/25/2018 and consistent with simple cysts the largest of these is in the inferior aspect of the left hepatic lobe measuring 1.9 cm. Gallbladder and bile ducts: There is persistent severe intra and extrahepatic biliary ductal dilatation in the setting of prior cholecystectomy. Pancreas: Normal. No ductal dilation. Spleen: Normal. No splenomegaly. Small splenule adjacent to the spleen. Adrenals: Normal. No mass. Kidneys and ureters: There is bilateral renal atrophy with multifocal renal cortical scarring, more pronounced on the left. There is again an extrarenal pelvis on the left, more dilated than on the prior studies. 1.1 cm exophytic simple cyst at the lower pole left kidney, unchanged. There are 5 and 7 mm hypodense lesions in the mid left kidney and a 4 mm hypodense lesion in the upper pole left kidney which may be new since 07/25/2018. Stomach and bowel: There is no bowel dilatation to indicate obstruction. No pneumatosis. There are multiple scattered diverticula in the colon, without adjacent fat stranding. Contrast has only reached the cecum at the ileocecal valve where it is slightly dilute and presumably ingested oral contrast rather than blood products or extravasated intravenous contrast, although this is difficult to confirm. Hyperdense material in 2 diverticula in the right colon appeared to be present on 10/02/2019. Hyperdense material in a diverticulum at the splenic flexure of the colon is new since 10/02/2019 and is indeterminate, either ingested radiodense material between that study and this study or intraluminal contrast extravasation from active bleeding. The cecum is located low in the central pelvis. Questionable mild wall thickening in the proximal jejunum. Appendix: Appendix is not visualized. Intraperitoneal space: There is no free fluid or free air. Ring of minimal fat stranding in the presacral fat is unchanged, likely residual scarring from prior fat necrosis or infarct. Vasculature: Small amount of atherosclerotic calcification in the iliac arteries bilaterally. No abdominal aortic aneurysm. Lymph nodes: There are small periaortic lymph nodes. Urinary bladder: There are small calcifications layering posteriorly in the bladder, changed in location since 10/02/2019. Reproductive: Unremarkable as visualized. Bones/joints: There is multilevel degenerative disc and facet disease in the lumbar spine. Postoperative changes from posterior decompression in the lower lumbar spine. There is severe dextroconvex thoracolumbar scoliosis, with severe levoconvex lower lumbar scoliosis. Soft tissues: There is atrophy of the left piriformis muscle. There is fatty atrophy of the right gluteus minimus muscle. Surgical clips and scarring in the subcutaneous fat of the posterior lower back. Calcification in the right breast from prior fat necrosis partially included. IMPRESSION: 1. Dense material in a diverticulum at the splenic flexure of the colon which appears new since 10/02/2019. This could represent ingested radiodense material between that study and this study or intraluminal contrast extravasation from active bleeding. 2. Suspected dilute oral contrast in the distal small bowel and cecum. Dilute oral contrast is more likely than dilute extravasated intraluminal contrast from active bleeding. 3. Multiple colonic diverticula without inflammatory changes to indicate diverticulitis. 4. Continued marked intra and extrahepatic biliary ductal dilatation status post cholecystectomy. 5. Stable simple hepatic cysts. 6. Small simple cyst in the lower pole left kidney. Three smaller 5-7 mm hypodense lesions in the upper to mid left kidney which may be new since 07/25/2018, difficult to characterize given their small size but statistically most likely cysts. COMMENTS: Consistent with the [employer]'s Incidental Findings Committee white paper (J Am Lowell Radiol 2018): Any incidental renal lesion less than 1.0 cm or classified as too small to characterize, or any incidental cystic renal lesion characterized as simple-appearing, is likely benign. No follow-up imaging is recommended for these lesions per consensus recommendations based on imaging criteria. Electronically signed by: Sadia Lennon On 04/23/2020 15:41:26 PM
[2020-04-23] MEDS ORDERED: POLY1POW38 PO (17:43)
[2020-04-23] MEDS ORDERED: OLAN2.5T25 PO (17:43)
--- NOTE | 2020-04-23 17:44 | HPEPDOC ---
[facility] Medical History & Physical Date of Admission Apr 23, 2020 Date of Service: Apr 23, 2020 Attending Physician: VIRGINIE PELAEZ MD History and Physical CHIEF COMPLAINT: rectal bleeding HISTORY OF PRESENT ILLNESS: Mrs. Ramirez is a 64 yo F with a history of bipolar disorder, DVTs (on eliquis), GI bleeding, anemia, asthma, presenting to the ED c/o of large bloody BM with clots this morning. Patient describes large formed clots, dark and bright blood mixed with stool. She is a poor historian. She is very concerned about getting a hospital bed at this time. At present time she denies dizziness, lightheadedness, chest pain, blurred vision. On arrival to the ED, BP 135/96, HR 98, RR 18, SpO2 97% on RA, T 98.1. Laboratory values significant for Hgb 12.1. HCT 38.6. PLT 219. BUN 18. LA 1.3. BG 106. AST 13. ALT 24. ALP 66. Trop < 0.02. EKG showing no acute ischemic changes. CT of the abdo men and pelvis with contrast showed dense material in a diverticulum splenic flexure of the colon, which could represent radiodense material between prior study and now versus luminal contrast extravasation suggestive of active bleeding from possibly a diverticulum. Last colonoscopy was in February 2016 for persistent diarrhea/anemia. Noted 2 small polyps of the rectosigmoid colon, removed with hot snare. Otherwise, sigmoid, descending, transverse, ascending, cecum and appendiceal orifice and il eocecal valve were normal. Recommendation was for repeat colonoscopy in 3-5 years for surveillance. Pathology showed inflammatory polyp. Admitted to hospitalist service for LGIB workup, monitoring of hemoglobin. PAST MEDICAL HISTORY: Panic attacks. Gastroesophageal reflux disease (GERD). Recurrent GI bleed Myxopapillary ependymoma. Asthma. Deep vein thromboses (DVTs). Bipolar disorder. Low back pain. Sciatica. Ankle contusion. Neck sprain. Chronic abdominal pain. PAST SURGICAL HISTORY: Laparoscopic incisional hernia repair Cholecystectomy. Total dental extraction. Previous spine surgery SOCIAL HISTORY: Patient denies smoking Patient denies etoh use Patient denies illicit drug use FAMILY HISTORY: Father - history of Alzheimer's, ALLERGIES: Please see below. REVIEW OF SYSTEMS: CONSTITUTIONAL: patient denies fevers, chills, dizziness HEENT: patient denies blurred vision, loss of vision, headache CARDIOVASCULAR: patient denies chest pain, palpitations. RESPIRATORY: patient denies shortness of breath, cough, hemoptysis. GASTROINTESTINAL: Describes gross blood per rectum with large clots, mixed with stool GENITOURINARY: patient denies dysuria, discharge. SKIN: patient denies rashes. MUSCULOSKELETAL: patient denies joint pain, neck pain. NEUROLOGICAL: patient denies focal weakness, numbness, seizures. PSYCHIATRIC: patient denies SI/HI. ENDOCRINE: patient denies polyuria, heat intolerance, cold intolerance. HEMATOLOGIC/LYMPHATIC: patient denies easy bruising. HOME MEDICATIONS: Please see below. PHYSICAL EXAMINATION: VITAL SIGNS: please see below General: NAD, comfortable HEENT: PERRLA, EOMI, sclerae clear Neck: supple, normal ROM, no JVD Respiratory: lungs CTAB, no wheeze, no rales, no crackles CVS: RRR, normal S1, S2, no murmurs Abdo: soft, no masses, no hepatosplenomegaly, BS+, no rebound tenderness. Examined bedside commode, lots of tissues with bloody smears, one small stool mixed with red blood Extremities: no edema, pulses 2+ MSK: no joint deformities, normal ROM. Right ankle in Aircast. Neuro: no focal neuro deficits, moving all 4 extremities, CN2-12 intact. Strength 5/5 in all 4 extremities. No nystagmus. Psych: Patient is alert and oriented 3, however, tangential, rapid speech, crying LABORATORY DATA: See below. IMAGING: FINDINGS: Lungs: There is mild discoid atelectasis or scar at the lung bases. Mildly tortuous distal thoracic aorta. Liver: Multiple small hypodense hepatic lesions are stable compared to 07/25/2018 and consistent with simple cysts the largest of these is in the inferior aspect of the left hepatic lobe measuring 1.9 cm. Gallbladder and bile ducts: There is persistent severe intra and extrahepatic biliary ductal dilatation in the setting of prior cholecystectomy. Pancreas: Normal. No ductal dilation. Spleen: Normal. No splenomegaly. Small splenule adjacent to the spleen. Adrenals: Normal. No mass. Kidneys and ureters: There is bilateral renal atrophy with multifocal renal cortical scarring, more pronounced on the left. There is again an extrarenal pelvis on the left, more dilated than on the prior studies. 1.1 cm exophytic simple cyst at the lower pole left kidney, unchanged. There are 5 and 7 mm hypodense lesions in the mid left kidney and a 4 mm hypodense lesion in the upper pole left kidney which may be new since 07/25/2018. Stomach and bowel: There is no bowel dilatation to indicate obstruction. No pneumatosis. There are multiple scattered diverticula in the colon, without adjacent fat stranding. Contrast has only reached the cecum at the ileocecal valve where it is slightly dilute and presumably ingested oral contrast rather than blood products or extravasated intravenous contrast, although this is difficult to confirm. Hyperdense material in 2 diverticula in the right colon appeared to be present on 10/02/2019. Hyperdense material in a diverticulum at the splenic flexure of the colon is new since 10/02/2019 and is indeterminate, either ingested radiodense material between that study and this study or intraluminal contrast extravasation from active bleeding. The cecum is located low in the central pelvis. Questionable mild wall thickening in the proximal jejunum. Appendix: Appendix is not visualized. Intraperitoneal space: There is no free fluid or free air. Ring of minimal fat stranding in the presacral fat is unchanged, likely residual scarring from prior fat necrosis or infarct. Vasculature: Small amount of atherosclerotic calcification in the iliac arteries bilaterally. No abdominal aortic aneurysm. Lymph nodes: There are small periaortic lymph nodes. Urinary bladder: There are small calcifications layering posteriorly in the bladder, changed in location since 10/02/2019. Reproductive: Unremarkable as visualized. Bones/joints: There is multilevel degenerative disc and facet disease in the lumbar spine. Postoperative changes from posterior decompression in the lower lumbar spine. There is severe dextroconvex thoracolumbar scoliosis, with severe levoconvex lower lumbar scoliosis. Soft tissues: There is atrophy of the left piriformis muscle. There is fatty atrophy of the right gluteus minimus muscle. Surgical clips and scarring in the subcutaneous fat of the posterior lower back. Calcification in the right breast from prior fat necrosis partially included. IMPRESSION: 1. Dense material in a diverticulum at the splenic flexure of the colon which appears new since 10/02/2019. This could represent ingested radiodense material between that study and this study or intraluminal contrast extravasation from active bleeding. 2. Suspected dilute oral contrast in the distal small bowel and cecum. Dilute oral contrast is more likely than dilute extravasated intraluminal contrast from active bleeding. 3. Multiple colonic diverticula without inflammatory changes to indicate diverticulitis. 4. Continued marked intra and extrahepatic biliary ductal dilatation status post cholecystectomy. 5. Stable simple hepatic cysts. 6. Small simple cyst in the lower pole left kidney. Three smaller 5-7 mm hypodense lesions in the upper to mid left kidney which may be new since 07/25/2018, difficult to characterize given their small size but statistically most likely cysts. MICROBIOLOGY: Please see below. ASSESSMENT: Mrs. Ramirez is a 64 yo F with a hx of bipolar disorder, DVTs (on eliquis), recurrent GI bleeding, asthma, presenting to the ED c/o of large bloody BM with clots this morning. On arrival hemoglobin normal and stable. Had repeat LGIB in the ED. CT of the abdomen and pelvis with contrast showed dense material in a diverticulum splenic flexure of the colon, which could represent radiodense material between prior study and now versus luminal contrast extravasation of active bleeding. I discussed the patient's case with Dr. Juan. He suspects based on CT findings that this could be a diverticular bleed. Given that hemoglobin is normal, patient has had a decrease in the f requency and volume of bloody bowel movements, advised to admit the patient and monitor hemoglobin closely. If patient should become acutely anemic, advised to consult him for inpatient colonoscopy. PLAN: #LGIB: Hgb 12.1. Asymptomatic at time of admission. Had a bloody BM with clots while in ED. Trend H/H q6h. Transfuse for Hgb < 7. Discussed case with Dr. Juan, based on CT findings, likely a diverticular bleed. To monitor for re- bleed. If stable hgb, consider outpatient colonoscopy vs inpatient in the event of acute worsening anemia. To consult if hgb should suddenly drop. CLD for now. #Hx of DVT: on eliquis 5 mg po bid at home. Hold in the setting of LGIB. Chronicity of use is unclear, however records suggest patient has been taking it since at least 2015. Will speak to patient's PCP to help determine frequency of DVTs, and any prior hypercoagulable workup. 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 Consider hematology input. Patient may be candidate for IVC filter based on thromboembolic history. # bipolar disorder: olanzapine 5 mg po QHS. Consider psychiatry consult in am if patient becomes increasingly upset, emotionally labile. #hx R ankle fx: states saw Dr. Denny. Currently wearing air cast. Will clarify with Dr. Denny's office any recent follow up. #Asthma: cont home advair #Back pain: cyclobenzaprine prn, norco 7.5 1 tab po q6h prn #Anxiety: home clonazepam 0.5 mg PO qhs DVT ppx: TEDs, SCDs. Hold chemoppx in setting of LGIB. Vital Signs Vital Signs Date Time Temp Pulse Resp B/P (MAP) Pulse Ox O2 Delivery O2 Flow Rate FiO2 04/23/20 13:15 98 135/96 (109) 97 04/23/20 12:47 99.1 18 Room Air Laboratory Data Labs 24H Laboratory Tests 2 04/23/20 12:55: Immature Granulocyte % (Auto) 0.1, Neutrophils (%) (Auto) 66.3H, Lymphocytes (%) (Auto) 25.2, Monocytes (%) (Auto) 5.8H, Eosinophils (%) (Auto) 2.2, Basophils (%) (Auto) 0.4, Neutrophils # (Auto) 4.5, Lymphocytes # (Auto) 1.7, Monocytes # (Auto) 0.4, Eosinophils # (Auto) 0.2, Basophils # (Auto) 0.0, Nucleated Red Blood Cells % (auto) 0.0, Prothrombin Time 15.0H, Prothromb Time International Ratio 1.16, Activated Partial Thromboplast Time 32.5, Anion Gap 5L, Glomerular Filtration Rate > 60.0, Calcium Level 9.7, Total Bilirubin 0.2, Direct Bilirubin < 0.1, Aspartate Amino Transf (AST/SGOT) 13, Alanine Aminotransferase (ALT/SGPT) 24, Alkaline Phosphatase 66, Total Creatine Kinase 103, Creatine Kinase MB 2.0, Creatine Kinase MB Relative Index 1.94, Troponin I < 0.02, Total Protein 7.6, Albumin 3.6, Albumin/Globulin Ratio 0.9L, Lipase 244 04/23/20 13:44: Lactic Acid Level 1.3 CBC/BMP Laboratory Tests 04/23/20 12:55 Microbiology Microbiology 04/23/20 Blood Culture, Received Pending 04/23/20 Blood Culture, Received Pending Home Medications Scheduled Apixaban (Eliquis) 5 Mg Tab, 5 MG PO BID Clonazepam (Clonazepam) 0.5 Mg Tablet, 0.5 MG PO QHS Olanzapine (Olanzapine) 2.5 Mg Tablet, 5 MG PO QHS Potassium Chloride (K-Tab ER) 10 Meq Tablet.er, 20 MEQ PO BID Pseudoephedrine HCl (Sudogest) 30 Mg Tablet, 30 MG PO BID Salmeterol/Fluticasone (Advair 100-50 Diskus) 1 Each Blst.w.dev, 1 PUFF INH BID diphenhydrAMINE HCl (diphenhydrAMINE HCl) 25 Mg Tablet, 25 MG PO QHS Scheduled PRN Acetaminophen (Acetaminophen) 325 Mg Tablet, 325 MG PO Q4H PRN for PAIN / FEVER Albuterol Sulfate (Proair Hfa) 108 Mcg/Act Aer, 2 PUFF INH Q4H PRN for wheezing Cyclobenzaprine HCl (Cyclobenzaprine HCl) 10 Mg Tablet, 10 MG PO BID PRN for MUSCLE SPASMS Fluticasone Propionate (Fluticasone Propionate) 16 Gm [place].susp, 2 SPRAY NARES DAILY PRN for CONGESTION Hydrocodone/Acetaminophen (Hydrocodone-Acetamin 7.5-325) 1 Tab Tab, 1 TAB PO Q6H PRN for PAIN Meclizine HCl (Meclizine HCl) 25 Mg Tablet, 25 MG PO Q8H PRN for NAUSEA OR VOMITING Polyethylene Glycol 3350 (Polyethylene Glycol 3350) 17 Gm Powd.pack, 17 GRAM PO DAILY PRN for CONSTIPATION Allergies Coded Allergies: Penicillins (Verified Allergy, Intermediate, RASH, 10/02/19) magnesium citrate (Verified Allergy, Intermediate, HIVES, 10/02/19) latex (Verified Allergy, Mild, 10/02/19) diazepam (Verified Adverse Reaction, Mild, SPINNING, 10/02/19) meperidine (Verified Adverse Reaction, Mild, DIZZINESS, 10/02/19) nitrofurantoin (Verified Adverse Reaction, Mild, GI UPSET, 10/02/19) propoxyphene (Verified Adverse Reaction, Mild, DIZZINESS, 10/02/19) A-FIB/CHADSVASC A-FIB History Current/History of A-Fib/PAF?: No Current PO Anticoag Therapy: No VIRGINIE PELAEZ MD Apr 23, 2020 17:44
[2020-04-23] MEDS ORDERED: ALBUTEROL 90 MCG/ACT 8GM HFA INHALER INH PRN (18:45)
[2020-04-23] MEDS ORDERED: FLUTICASONE PROP 0.05% NASAL SPRAY 16 GM (FLONASE) NARES PRN (18:45)
[2020-04-23] MEDS ORDERED: MIRALAX *UNIT DOSE* 17GM PACKET PO PRN (18:45)
[2020-04-23] MEDS: ADVAIR HFA 45/21MCG INHALER INH SCH (19:16)
[2020-04-23 19:40] VITALS: BP 153/95
[2020-04-23] MEDS ORDERED: OLANZapine 5 MG TAB PO ONE (20:00)
[2020-04-23] MEDS ORDERED: diphenhydrAMINE 25MG CAP PO ONE (20:00)
[2020-04-23] MEDS: POTASSIUM CHLORIDE 10 MEQ SR TABLET PO SCH (20:21)
[2020-04-23] MEDS: ANEXSIA, NORCO 7.5MG/325MG TABLET(HYDROCODONE/APAP) PO PRN (20:23)
[2020-04-23] MEDS: DOCUSATE SODIUM 100 MG CAP PO SCH (20:24)
[2020-04-23] MEDS: clonazePAM 0.5 MG TAB PO SCH (20:24)
[2020-04-23] MEDS: CYCLOBENZAPRINE 10MG TABLET PO PRN (20:24)
[2020-04-23] MEDS: PSEUDOEPHEDRINE 30 MG TAB PO SCH (21:00)
[2020-04-23 22:58] LABS: HEMOGLOBIN 11.5 g/dl (12.0-15.5)
[2020-04-24] MEDS: RAMELTEON 8 MG TAB (ROZEREM) PO PRN ×2 (01:03→20:45)
[2020-04-24] MEDS: ANEXSIA, NORCO 7.5MG/325MG TABLET(HYDROCODONE/APAP) PO PRN ×3 (04:44→20:44)
[2020-04-24 06:00] VITALS: BP 139/83
[2020-04-24 06:34] LABS: BASO % 0.4 % (0.0-1.0); EOS # 0.2 10^3/uL (0.0-0.5); HEMATOCRIT 37.1 % (36.0-47.0); HEMOGLOBIN 11.6 g/dl (12.0-15.5); LYMPH # 1.6 10^3/uL (1.5-5.0); LYMPH % 27.3 % (24.0-44.0); MEAN CORPUSCULAR HEMOGLOBIN 30.1 pg (27.0-33.0); MEAN CORPUSCULAR HGB CONC 31.3 g/dl (32.0-36.5); MEAN CORPUSCULAR VOLUME 96.4 fl (80.0-96.0); MONO # 0.4 10^3/uL (0.0-0.8); MONO % 7.5 % (0.0-5.0); NEUTROPHILS # 3.5 10^3/uL (1.5-8.5); NEUTROPHILS % 61.4 % (36.0-66.0); PLATELET COUNT, AUTOMATED 204 10^3/uL (150-450); RED BLOOD COUNT 3.85 10^6/uL (4.00-5.40); WHITE BLOOD COUNT 5.7 10^3/uL (4.0-10.0)
[2020-04-24 07:00] LABS: ALBUMIN 3.6 GM/DL (3.2-5.2); ALT/SGPT 21 U/L (12-78); BILIRUBIN,TOTAL 0.4 MG/DL (0.2-1.0); BLOOD UREA NITROGEN 9 MG/DL (7-18); CALCIUM LEVEL 9.1 MG/DL (8.8-10.2); CARBON DIOXIDE LEVEL 28 MEQ/L (21-32); CHLORIDE LEVEL 108 MEQ/L (98-107); GLOMERULAR FILTRATION RATE > 60.0 (>45); GLUCOSE, FASTING 107 MG/DL (70-100); MAGNESIUM LEVEL 2.2 MG/DL (1.8-2.4); POTASSIUM SERUM 4.2 MEQ/L (3.5-5.1); SODIUM LEVEL 140 MEQ/L (136-145); TOTAL PROTEIN 7.1 GM/DL (6.4-8.2)
[2020-04-24] MEDS: DOCUSATE SODIUM 100 MG CAP PO SCH ×3 (07:39→20:43)
[2020-04-24] MEDS: PSEUDOEPHEDRINE 30 MG TAB PO SCH ×2 (07:39→20:43)
[2020-04-24] MEDS: MECLIZINE 25 MG TABLET PO PRN (07:39)
[2020-04-24] MEDS: POTASSIUM CHLORIDE 10 MEQ SR TABLET PO SCH ×2 (07:39→20:44)
[2020-04-24] MEDS: ADVAIR HFA 45/21MCG INHALER INH SCH ×2 (07:55→20:15)
[2020-04-24] MEDS: CYCLOBENZAPRINE 10MG TABLET PO PRN ×2 (09:53→20:44)
[2020-04-24] MEDS ORDERED: FIORICET TAB PO ONE (10:00)
[2020-04-24] MEDS ORDERED: PROMETHAZINE 25 MG TAB PO ONE (12:00)
[2020-04-24 14:00] VITALS: BP 143/87
[2020-04-24 15:33] LABS: HEMATOCRIT 35.8 % (36.0-47.0); HEMOGLOBIN 11.2 g/dl (12.0-15.5)
[2020-04-24] MEDS ORDERED: LACTULOSE 20 GM/30 ML SYRUP UD PO ONE (18:15)
--- NOTE | 2020-04-24 18:33 | MHCRPDOC ---
[facility] Consultation Consultation DATE OF CONSULTATION: 04/24/20 CONSULTATION REQUESTED BY: VIRGINIE PELAEZ MD REASON FOR CONSULTATION: the patient has a h/o bipolar disorder RELEVANT HISTORY: As per previous notes: "Mrs. Ramirez is a 64 yo F with a history of bipolar disorder, DVTs (on eliquis), GI bleeding, anemia, asthma, presenting to the ED c/o of large bloody BM with clots this morning. Patient describes large formed clots, dark and bright blood mixed with stool. She is a poor historian. She is very concerned about getting a hospital bed at this time. At present time she denies dizziness, lightheadedness, chest pain, blurred vision. On arrival to the ED, BP 135/96, HR 98, RR 18, SpO2 97% on RA, T 98.1. Laboratory values significant for Hgb 12.1. HCT 38.6. PLT 219. BUN 18. LA 1.3. BG 106. AST 13. ALT 24. ALP 66. Trop < 0.02. EKG showing no acute ischemic changes. CT of the abdomen and pelvis with contrast showed dense material in a diverticulum splenic flexure of the colon, which could represent radiodense material between prior study and now versus luminal contrast extravasation suggestive of active bleeding from possibly a diverticulum. Last colonoscopy was in February 2016 for persistent diarrhea/anemia. Noted 2 small polyps of the rectosigmoid colon, removed with hot snare. Otherwise, sigmoid, descending, transverse, ascending, cecum and appendiceal orifice and ileocecal valve were normal. Recommendation was for repeat colonoscopy in 3-5 years for surveillance. Pathology showed inflammatory polyp. Admitted to hospitalist service for LGIB workup, monitoring of hemoglobin." PAST PSYCHIATRIC HISTORY: The patient confirms she has a h/o bipolar disorder. She says she used to see Dr. [place] but has not seen him in a long time because she thinks she is doing fine. she says she takes Zyprexa twice/day and Klonopin. she can't remember any other medications. She says she has never attempted suicide and says she has never had inpatient hospitalizations PAST MEDICAL HISTORY: As per previous records: "Panic attacks,Gastroesophageal reflux disease (GERD), Recurrent GI bleed, Myxopapillary ependymoma, Asthma, Deep vein thromboses (DVTs), Bipolar disorder, Low back pain, Sciatica, Ankle contusion, Neck sprain, Chronic abdominal pain. PAST SURGICAL HISTORY: Laparoscopic incisional hernia repair, Cholecystectomy, Total dental extraction,Previous spine surgery SOCIAL HISTORY: Patient denies smoking Patient denies etoh use Patient denies illicit drug use FAMILY HISTORY: Mother: According to the patient, her mother is Father: , had Alzheimer's Siblings: "I have a brother, he's a billionaire but he doesn't want to know anything about me, we don't talk" Children: None PERSONAL AND SOCIAL HISTORY: The patient was born and raised in [place]. Resides in: [place] Marital Status: D Children: None Employment: None SUBSTANCE ABUSE HISTORY: Smoking: Denies ETOH: Denies Illicit Drugs: Denies LEGAL HISTORY: . MENTAL STATUS EXAMINATION: Patient is a 64 year old female, who is alert, cooperative, pleasant, dressed in hospital gown, laying on hospital bed. Speech is rapid, pressured,normal tone and volume. Language skills are intact. Thought processes including: circumstantial, tangential, disorganized. Thought content: negative for suicidal ideation, negative for homicidal ideation, negative for paranoid delusions, for thought insertion positive for some grandiose delusions Abstract reasoning, and computation: unable to assess, patient has FOI, her thought process is very disorganized at this time, she can't focus Description of associations: loose Description of abnormal or psychotic thoughts: She denies TAV hallucinations, she is not responding to internal stimuli, has mild grandiose thoughts about some of her family members being in high and important jobs. Judgment: impaired. Insight: poor. Orientation to year, place and herself. Recent and remote memory: fair. Attention span and concentration: easily distracted. Language: adequate. Fund of knowledge: average. Mood: happy Affect: congruent with mood. DIAGNOSIS: 1. Bipolar I disorder, manic episode PLAN: 1. Will increase Zyprexa to 5 mgs PO TID 2. Will increase Klonopin to 0.5 mgs PO BID 3. Patient can't be transferred today to [facility] because she is having a colonoscopy on Friday 4. patient needs to continue on a 1:1, she is manic, impulsive, has poor insight and judgement 5. Will re evaluate after her medications are adjusted 6. Thanks for the consult Vital Signs Vital Signs Date Time Temp Pulse Resp B/P (MAP) Pulse Ox O2 Delivery O2 Flow Rate FiO2 04/24/20 14:00 98.4 83 18 143/87 (105) 94 Room Air Laboratory Data 24H Labs Laboratory Tests 2 04/24/20 06:14: Immature Granulocyte % (Auto) 0.4, Neutrophils (%) (Auto) 61.4, Lymphocytes (%) (Auto) 27.3, Monocytes (%) (Auto) 7.5H, Eosinophils (%) (Auto) 3.0, Basophils (%) (Auto) 0.4, Neutrophils # (Auto) 3.5, Lymphocytes # (Auto) 1.6, Monocytes # (Auto) 0.4, Eosinophils # (Auto) 0.2, Basophils # (Auto) 0.0, Nucleated Red Bl ood Cells % (auto) 0.0, Anion Gap 4L, Glomerular Filtration Rate > 60.0, Calcium Level 9.1, Magnesium Level 2.2, Total Bilirubin 0.4#, Aspartate Amino Transf (AST/SGOT) 15, Alanine Aminotransferase (ALT/SGPT) 21, Alkaline Phosphatase 58, Total Protein 7.1, Albumin 3.6, Albumin/Globulin Ratio 1.0L Home Medications Current Medications Current Medications Medications (Trade) Dose Ordered Sig/Marielle Route PRN Reason Start Time Stop Time Status Last Admin Dose Admin Acetaminophen/ Hydrocodone Bitart (Anexsia, [place] 7.5mg/325mg) 1 tab Q6H PRN PO PAIN 04/23/20 18:45 04/24/20 12:24 Albuterol Sulfate (Proventil, Ventolin Hfa) 2 puff Q4H PRN INH wheezing 04/23/20 18:45 Clonazepam (KlonoPIN) 0.5 mg QHS PO 04/23/20 21:00 04/23/20 20:24 Cyclobenzaprine HCl (Flexeril) 10 mg BID PRN PO MUSCLE SPASMS 04/23/20 18:45 04/24/20 09:53 Diatrizoate Meglum/ Diatrizoate Sod (Gastrografin) 10 ml Q30M PO 04/23/20 12:15 04/23/20 12:46 DC 04/23/20 13:45 Docusate Sodium (Colace) 100 mg BID PO 04/23/20 21:00 Fluticasone Propionate (Flonase 0.05% Nasal [place]) 2 spray DAILY PRN NARES CONGESTION 04/23/20 18:45 Home Med (Med Rec Complete!) ASDIRECTED XX 04/23/20 17:45 04/23/20 17:49 DC Meclizine HCl (Antivert) 25 mg Q8H PRN PO NAUSEA OR VOMITING 04/23/20 18:45 04/24/20 07:39 Polyethylene Glycol (Miralax) 1 pkt DAILY PRN PO CONSTIPATION 04/23/20 18:45 Potassium Chloride (Micro-K Extencaps) 20 meq BID PO 04/23/20 21:00 04/24/20 07:39 Pseudoephedrine HCl (Sudafed) 30 mg BID PO 04/23/20 21:00 04/24/20 07:39 Ramelteon (Rozerem) 8 mg QHS PRN PO INSOMNIA 04/24/20 00:45 Salmeterol Xinafoate/ Fluticasone (Advair Hfa 45-21 Mcg/Act) 2 puff BID INH 04/23/20 21:00 04/24/20 07:55 Scheduled Apixaban (Eliquis) 5 Mg Tab, 5 MG PO BID, (Reported) Clonazepam (Clonazepam) 0.5 Mg Tablet, 0.5 MG PO QHS, (Reported) Olanzapine (Olanzapine) 2.5 Mg Tablet, 5 MG PO QHS, (Reported) Potassium Chloride (K-Tab ER) 10 Meq Tablet.er, 20 MEQ PO BID, (Reported) Pseudoephedrine HCl (Sudogest) 30 Mg Tablet, 30 MG PO BID, (Reported) Salmeterol/Fluticasone (Advair 100-50 Diskus) 1 Each Blst.w.dev, 1 PUFF INH BID, (Reported) diphenhydrAMINE HCl (diphenhydrAMINE HCl) 25 Mg Tablet, 25 MG PO QHS, (Reported) Scheduled PRN Acetaminophen (Acetaminophen) 325 Mg Tablet, 325 MG PO Q4H PRN for PAIN / FEVER, (Reported) Albuterol Sulfate (Proair Hfa) 108 Mcg/Act Aer, 2 PUFF INH Q4H PRN for wheezing, (Reported) Cyclobenzaprine HCl (Cyclobenzaprine HCl) 10 Mg Tablet, 10 MG PO BID PRN for MUSCLE SPASMS, (Reported) Fluticasone Propionate (Fluticasone Propionate) 16 Gm [place].susp, 2 SPRAY NARES DAILY PRN for CONGESTION, (Reported) Hydrocodone/Acetaminophen (Hydrocodone-Acetamin 7.5-325) 1 Tab Tab, 1 TAB PO Q6H PRN for PAIN, (Reported) Meclizine HCl (Meclizine HCl) 25 Mg Tablet, 25 MG PO Q8H PRN for NAUSEA OR VOMITING, (Reported) Polyethylene Glycol 3350 (Polyethylene Glycol 3350) 17 Gm Powd.pack, 17 GRAM PO DAILY PRN for CONSTIPATION, (Reported) Allergies Coded Allergies: Penicillins (Verified Allergy, Intermediate, RASH, 10/02/19) magnesium citrate (Verified Allergy, Intermediate, HIVES, 10/02/19) latex (Verified Allergy, Mild, 10/02/19) diazepam (Verified Adverse Reaction, Mild, SPINNING, 10/02/19) meperidine (Verified Adverse Reaction, Mild, DIZZINESS, 10/02/19) nitrofurantoin (Verified Adverse Reaction, Mild, GI UPSET, 10/02/19) propoxyphene (Verified Adverse Reaction, Mild, DIZZINESS, 10/02/19) KAYLA PATEL MD Apr 24, 2020 18:25
--- NOTE | 2020-04-24 18:58 | IPNPDOC ---
Date Seen The patient was seen on 04/24/20. Progress Note SUBJECTIVE: Patient was seen and examined. Patient appears to be manic, tangential and difficult to maintain a conversation. Patient reports mild diffuse middle pain. He needs to have a small hard stools streaked with red blood. She denies chest pain, SOB, breath, palpitations. Just endorses a h eadache, back pain, numerous somatic complaints. She is seen ambulating with a walker. OBJECTIVE PHYSICAL EXAMINATION: General: NAD, comfortable HEENT: PERRLA, EOMI, sclerae clear Neck: supple, normal ROM, no JVD Respiratory: lungs CTAB, no wheeze, no rales, no crackles CVS: RRR, normal S1, S2, no murmurs Abdo: soft, no masses, no hepatosplenomegaly, BS+, no rebound tenderness. Rectal exam: small non bleeding anal fissure at 4 o'clock. No external hemorrhoids seen. Internal hemorrhoids palpated. Small amount of bright red blood on glove. Normal voluntary rectal tone. Extremities: no edema, pulses 2+ MSK: no joint deformities, normal ROM. Right ankle in Aircast. Neuro: no focal neuro deficits, moving all 4 extremities, CN2-12 intact. Strength 5/5 in all 4 extremities. No nystagmus. Psych: Patient is alert and oriented 3, however, tangential, rapid speech, manic LABORATORY DATA, IMAGING STUDIES, MICROBIOLOGY: Please see below. DVT prophylaxis ordered?: SCD, TEDs ASSESSMENT AND PLAN: rs. Ramirez is a 64 yo F with a hx of bipolar disorder, DVTs (on eliquis), recurrent GI bleeding, asthma, presenting to the ED c/o of large bloody BM with clots this morning. On arrival hemoglobin normal and stable. Had repeat LGIB in the ED. CT of the abdomen and pelvis with contrast showed dense material in a diverticulum splenic flexure of the colon, which could represent radiodense material between prior study and now versus luminal contrast extravasation of active bleeding. I discussed the patient's case with Dr. Juan. He suspects based on CT findings that this could be a diverticular bleed. Given that hemoglobin is normal, patient has had a decrease in the frequency and volume of bloody bowel movements, advised to admit the patient and monitor hemoglobin closely. Planned for colonsscopy with Dr. Juan on 04/26/20. PROBLEMS: #LGIB: Hgb 12.1. Asymptomatic at time of admission. Had a bloody BM with clots while in ED. Trend H/H q6h. Transfuse for Hgb < 7. Hgb remained 12.1 --> 11.2. Patient seen by Dr. Juan. Plan for colonoscopy 04/26/20. Patient agrees. #Hx of DVT: on eliquis 5 mg po bid at home. Hold in the setting of LGIB. Chronicity of use is unclear, however records suggest patient has been taking it since at least 2015. Spoke to PCP, Daisy Rodriguez. Patient recurrent DVT off eliquis, last one ~ 5 years ago. Obtained hematology consult, Dr. Tipton. Recommends await colonoscopy. Will help assess need for AC vs bleeding risk. # bipolar disorder: patient seen and evaluated by Dr. Villalpando. Patient is manic, impulsive, has poor insight and judgement. Zyprexa increased to 0.5 mg PO TID. Increased klonopin to 0.5 mg PO BID. Re-eval after colonoscopy, may consider [facility] transfer. #hx R ankle fx: states saw Dr. Denny. Currently wearing air cast. States she follows with Dr. Denny. #Asthma: cont home advair #Back pain: cyclobenzaprine prn, norco 7.5 1 tab po q6h prn #Anxiety: klonopin DVT ppx: TEDs, SCDs. Hold chemoppx in setting of LGIB. VS, I&O, 24H, Fishbone Vital Signs/I&O Vital Signs Date Time Temp Pulse Resp B/P (MAP) Pulse Ox O2 Delivery O2 Flow Rate FiO2 04/24/20 14:00 98.4 83 18 143/87 (105) 94 Room Air I&O- Last 24 Hours up to 6 AM 04/24/20 06:00 Intake Total 2080 ml Output Total 600 ml Balance 1480 ml Laboratory Data 24H LABS Laboratory Tests 2 04/24/20 06:14: Immature Granulocyte % (Auto) 0.4, Neutrophils (%) (Auto) 61.4, Lymphocytes (%) (Auto) 27.3, Monocytes (%) (Auto) 7.5H, Eosinophils (%) (Auto) 3.0, Basophils (%) (Auto) 0.4, Neutrophils # (Auto) 3.5, Lymphocytes # (Auto) 1.6, Monocytes # (Auto) 0.4, Eosinophils # (Auto) 0.2, Basophils # (Auto) 0.0, Nucleated Red Blood Cells % (auto) 0.0, Anion Gap 4L, Glomerular Filtration Rate > 60.0, Calcium Level 9.1, Magnesium Level 2.2, Total Bilirubin 0.4#, Aspartate Amino Transf (AST/SGOT) 15, Alanine Aminotransferase (ALT/SGPT) 21, Alkaline Phosphatase 58, Total Protein 7.1, Albumin 3.6, Albumin/Globulin Ratio 1.0L CBC/BMP Laboratory Tests 04/23/20 22:48 04/24/20 06:14 04/24/20 15:17 Microbiology Microbiology 04/23/20 Blood Culture - Preliminary, Resulted No growth after 24 hours . All specim... 04/23/20 Blood Culture - Preliminary, Resulted No growth after 24 hours . All specim... VIRGINIE PELAEZ MD Apr 24, 2020 18:58
--- NOTE | 2020-04-24 19:17 | CR.PDOC ---
General Date of Consultation: Apr 24, 2020 Referring Provider: VIRGINIE PELAEZ MD Primary Care Physician: Jr Shea Collins Attending Physician: VIRGINIE PELAEZ MD Consultation REASON FOR CONSULTATION/CHIEF COMPLAINT: History of DVT on apixaban anticoagulation, now with GI bleed. HISTORY OF PRESENT ILLNESS: 64-year-old on anticoagulation for recurrent DVTs since at least as far back as 2014. (Vascular ultrasound 06/25/2015 showed left lower extremity DVT.) The patient noted rectal bleeding with passage of blood clots in stools today. CT abdomen suggestive of diverticular bleeding. Hemoglobin seems to be trending down. ALLERGIES: Please see below. HOME MEDICATIONS: Please see below. PAST MEDICAL HISTORY: GERD. Asthma. History of DVTs. Bipolar disorder. Sciatica. PAST SURGICAL HISTORY: Laparoscopic incisional hernia repair. Cholecystectomy. SOCIAL HISTORY: Denies smoking. Does not drink alcohol. Lives by herself. REVIEW OF SYSTEMS: CONSTITUTIONAL: Reports mostly stable weight with weight going up and down area did no fevers. No night sweats. HEENT: Reports no difficulty swallowing. Occasional headaches. CARDIOVASCULAR: Reports no chest pain. No shortness of breath. No palpitations. RESPIRATORY: Reports no shortness of breath. No cough. GENITOURINARY: Reports no urinary problems. MUSCULOSKELETAL: Reports no joint pains. GASTROINTESTINAL: Reports hematochezia. No hematemesis. No nausea. No vomiting. SKIN: Reports easy bruising. NEUROLOGICAL: Reports no motor weakness. PSYCHIATRIC: Reports no anxiety. HEMATOLOGIC/LYMPHATIC: Reports rectal bleeding and easy bruising. No other bleeding issues noted PHYSICAL EXAMINATION: VITAL SIGNS: Please see below. GENERAL APPEARANCE: Alert, communicative, lying in bed, comfortable, not in dist ress HEENT: Pinkish conjunctiva, anicteric. Moist oral mucosa. RESPIRATORY: Fair air entry. Nor also rhonchi. CARDIOVASCULAR: S1, S2 regular. No murmur. ABDOMEN: Soft, nontender, no masses, positive bowel sounds. EXTREMITIES: No edema. Right leg brace/cast. NEUROLOGICAL: Alert, oriented to person and place and partly to time. PSYCHIATRIC: No anxiety. LABORATORY DATA: Please see below. ASSESSMENT/PLAN: History of recurrent DVT on apixaban anticoagulation, now with GI bleed. Agree with holding anticoagulation at this point in time. Continue monitoring hemoglobin/hematocrit . Transfusion support if necessary. I understand that patient is to have a colonoscopy tomorrow. Would consider restarting anticoagulation if hemoglobin/hematocrit stable and source of GI bleed can be controlled/addressed. Thank you for referring Ms. Sole Ramirez. Vital Signs/I&O Vital Signs Date Time Temp Pulse Resp B/P (MAP) Pulse Ox O2 Delivery O2 Flow Rate FiO2 04/24/20 14:00 98.4 83 18 143/87 (105) 94 Room Air I&O- Last 24 Hours up to 6 AM 04/24/20 06:00 Intake Total 2080 ml Output Total 600 ml Balance 1480 ml Laboratory Data Labs 24H Laboratory Tests 2 04/24/20 06:14: Immature Granulocyte % (Auto) 0.4, Neutrophils (%) (Auto) 61.4, Lymphocytes (%) (Auto) 27.3, Monocytes (%) (Auto) 7.5H, Eosinophils (%) (Auto) 3.0, Basophils (%) (Auto) 0.4, Neutrophils # (Auto) 3.5, Lymphocytes # (Auto) 1.6, Monocytes # (Auto) 0.4, Eosinophils # (Auto) 0.2, Basophils # (Auto) 0.0, Nucleated Red Blood Cells % (auto) 0.0, Anion Gap 4L, Glomerular Filtration Rate > 60.0, Calcium Level 9.1, Magnesium Level 2.2, Total Bilirubin 0.4#, Aspartate Amino Transf (AST/SGOT) 15, Alanine Aminotransferase (ALT/SGPT) 21, Alkaline Phosphatase 58, Total Protein 7.1, Albumin 3.6, Albumin/Globulin Ratio 1.0L CBC/BMP Laboratory Tests 04/23/20 22:48 04/24/20 06:14 04/24/20 15:17 Microbiology Microbiology 04/23/20 Blood Culture - Preliminary, Resulted No growth after 24 hours . All specim... 04/23/20 Blood Culture - Preliminary, Resulted No growth after 24 hours . All specim... Allergies Coded Allergies: Penicillins (Verified Allergy, Intermediate, RASH, 10/02/19) magnesium citrate (Verified Allergy, Intermediate, HIVES, 10/02/19) latex (Verified Allergy, Mild, 10/02/19) diazepam (Verified Adverse Reaction, Mild, SPINNING, 10/02/19) meperidine (Verified Adverse Reaction, Mild, DIZZINESS, 10/02/19) nitrofurantoin (Verified Adverse Reaction, Mild, GI UPSET, 10/02/19) propoxyphene (Verified Adverse Reaction, Mild, DIZZINESS, 10/02/19) Home Medications Scheduled Apixaban (Eliquis) 5 Mg Tab, 5 MG PO BID, (Reported) Clonazepam (Clonazepam) 0.5 Mg Tablet, 0.5 MG PO QHS, (Reported) Olanzapine (Olanzapine) 2.5 Mg Tablet, 5 MG PO QHS, (Reported) Potassium Chloride (K-Tab ER) 10 Meq Tablet.er, 20 MEQ PO BID, (Reported) Pseudoephedrine HCl (Sudogest) 30 Mg Tablet, 30 MG PO BID, (Reported) Salmeterol/Fluticasone (Advair 100-50 Diskus) 1 Each Blst.w.dev, 1 PUFF INH BID, (Reported) diphenhydrAMINE HCl (diphenhydrAMINE HCl) 25 Mg Tablet, 25 MG PO QHS, (Reported) Scheduled PRN Acetaminophen (Acetaminophen) 325 Mg Tablet, 325 MG PO Q4H PRN for PAIN / FEVER, (Reported) Albuterol Sulfate (Proair Hfa) 108 Mcg/Act Aer, 2 PUFF INH Q4H PRN for wheezing, (Reported) Cyclobenzaprine HCl (Cyclobenzaprine HCl) 10 Mg Tablet, 10 MG PO BID PRN for MUSCLE SPASMS, (Reported) Fluticasone Propionate (Fluticasone Propionate) 16 Gm [place].susp, 2 SPRAY NARES DAILY PRN for CONGESTION, (Reported) Hydrocodone/Acetaminophen (Hydrocodone-Acetamin 7.5-325) 1 Tab Tab, 1 TAB PO Q6H PRN for PAIN, (Reported) Meclizine HCl (Meclizine HCl) 25 Mg Tablet, 25 MG PO Q8H PRN for NAUSEA OR VOMITING, (Reported) Polyethylene Glycol 3350 (Polyethylene Glycol 3350) 17 Gm Powd.pack, 17 GRAM PO DAILY PRN for CONSTIPATION, (Reported) NANCY CHOI MD Apr 24, 2020 19:17
[2020-04-24] MEDS: OLANZapine 5 MG TAB PO SCH (20:44)
[2020-04-24] MEDS: clonazePAM 0.5 MG TAB PO SCH (20:45)
[2020-04-24 22:00] VITALS: BP 145/86
[2020-04-25] MEDS ORDERED: FAMOTIDINE 20 MG TAB PO ONE (00:45)
[2020-04-25 06:00] VITALS: BP 135/79
[2020-04-25 06:31] LABS: BASO % 0.5 % (0.0-1.0); EOS # 0.1 10^3/uL (0.0-0.5); EOS % 2.4 % (0.0-3.0); HEMATOCRIT 35.5 % (36.0-47.0); HEMOGLOBIN 11.1 g/dl (12.0-15.5); LYMPH # 1.2 10^3/uL (1.5-5.0); MEAN CORPUSCULAR HEMOGLOBIN 30.2 pg (27.0-33.0); MEAN CORPUSCULAR HGB CONC 31.3 g/dl (32.0-36.5); MEAN CORPUSCULAR VOLUME 96.5 fl (80.0-96.0); MONO # 0.4 10^3/uL (0.0-0.8); MONO % 6.8 % (0.0-5.0); PLATELET COUNT, AUTOMATED 194 10^3/uL (150-450); RED BLOOD COUNT 3.68 10^6/uL (4.00-5.40); WHITE BLOOD COUNT 5.8 10^3/uL (4.0-10.0)
[2020-04-25 06:58] LABS: ALBUMIN 3.3 GM/DL (3.2-5.2); ALT/SGPT 18 U/L (12-78); BILIRUBIN,TOTAL 0.6 MG/DL (0.2-1.0); BLOOD UREA NITROGEN 10 MG/DL (7-18); CALCIUM LEVEL 9.1 MG/DL (8.8-10.2); CARBON DIOXIDE LEVEL 25 MEQ/L (21-32); CHLORIDE LEVEL 110 MEQ/L (98-107); CREATININE FOR GFR 0.74 MG/DL (0.55-1.30); GLOMERULAR FILTRATION RATE > 60.0 (>45); GLUCOSE, FASTING 123 MG/DL (70-100); MAGNESIUM LEVEL 2.2 MG/DL (1.8-2.4); POTASSIUM SERUM 4.3 MEQ/L (3.5-5.1); SODIUM LEVEL 140 MEQ/L (136-145); TOTAL PROTEIN 7.2 GM/DL (6.4-8.2)
[2020-04-25] MEDS ORDERED: LACTULOSE 20 GM/30 ML SYRUP UD PO ONE (08:00)
[2020-04-25] MEDS: ADVAIR HFA 45/21MCG INHALER INH SCH ×2 (08:11→19:40)
[2020-04-25] MEDS: clonazePAM 0.5 MG TAB PO PRN (08:17)
[2020-04-25] MEDS: CYCLOBENZAPRINE 10MG TABLET PO PRN (08:17)
[2020-04-25] MEDS: POTASSIUM CHLORIDE 10 MEQ SR TABLET PO SCH ×2 (08:17→20:14)
[2020-04-25] MEDS: PSEUDOEPHEDRINE 30 MG TAB PO SCH ×2 (08:17→20:13)
[2020-04-25] MEDS: DOCUSATE SODIUM 100 MG CAP PO SCH ×3 (08:18→20:18)
[2020-04-25] MEDS: OLANZapine 5 MG TAB PO SCH ×3 (08:18→20:13)
[2020-04-25] MEDS: ANEXSIA, NORCO 7.5MG/325MG TABLET(HYDROCODONE/APAP) PO PRN (09:40)
[2020-04-25 14:00] VITALS: BP 142/89
[2020-04-25] MEDS ORDERED: POLYETHYLENE GLYCOL (MIRALAX) 238GM BOTTLE PO ONE (14:00)
[2020-04-25] MEDS ORDERED: ONDANSETRON 4MG/2ML VIAL IV SCH (18:00)
--- NOTE | 2020-04-25 18:10 | IPNPDOC ---
Date Seen The patient was seen on 04/25/20. Progress Note SUBJECTIVE: Patient still appearing to be in manic state with being difficult to redirect to conversation, rapid speaking. Nay worsened with diarrhea following colonoscopy prep. States that "she is going to ", pulled IV out. Still reporting mild diffuse abdominal pain. She denied chest pain, SOB, breath, palpitations. OBJECTIVE: PHYSICAL EXAMINATION: VS: Please see below General: NAD, sitting up at side of bed HEENT: PERRLA, EOMI, sclerae clear Neck: supple, normal ROM, no JVD Respiratory: lungs CTAB, no wheeze, no rales, no crackles CVS: RRR, normal S1, S2, no murmurs Abdo: soft, no masses, no hepatosplenomegaly, BS+, no rebound tenderness. : Deferred Extremities: no edema, pulses 2+ MSK: no joint deformities, normal ROM. Right ankle in Aircast. Neuro: no focal neuro deficits, moving all 4 extremities, CN2-12 intact. Strength 5/5 in all 4 extremities. No nystagmus. Psych: Patient is alert and oriented 3, however, tangential, rapid speech, manic LABORATORY DATA, IMAGING STUDIES, MICROBIOLOGY: Please see below. ASSESSMENT: Patient is a 64 yo F with a hx of bipolar disorder, DVTs (on eliquis), recurrent GI bleeding, asthma admitted and getting treated for acute lower GI bleed. PLAN: #LGIB, acute and possibly diverticular bleed from findings on CT. Hx of GI bleed in past. H/H . No transfusion this admission. Transfuse for Hgb < 7. GI consulted and following, plan for colonoscopy 04/26/20. #Hx of recurrent DVT on eliquis 5 mg po bid at home. Hold in the setting of LGIB. Chronicity of use is unclear, however records suggest patient has been taking it since at least 2016. Spoke to PCP, Daisy Rodriguez. Patient recurrent DVT off eliquis, last one ~ 5 years ago. Hematology recommends await colonoscopy. Will help assess need for AC vs bleeding risk. # Bipolar disorder. Patient seen and evaluated by Dr. Villalpando. Patient is manic, impulsive, has poor insight and judgement. Zyprexa increased to 0.5 mg PO TID. Increased klonopin to 0.5 mg PO BID. If patient continues to refuse PO meds, will need to discuss with psych about other options. Re-eval after colonoscopy, may consider [facility] transfer. #Hx R ankle fx. Currently wearing air cast. States she follows with Dr. Denny. #Asthma: Stable on RA. Cont home advair #Back pain: cyclobenzaprine prn, norco 7.5 1 tab po q6h prn #Anxiety: klonopin DVT ppx: TEDs, SCDs. Hold chemoppx in setting of LGIB. DISPOSITION: colonoscopy 04/26/20. GI following. Possibly transferring to [facility] after acute issues addressed inpatient. VS, I&O, 24H, Fishbone Vital Signs/I&O Vital Signs Date Time Temp Pulse Resp B/P (MAP) Pulse Ox O2 Delivery O2 Flow Rate FiO2 04/25/20 14:00 98.7 95 18 142/89 (106) 94 Room Air I&O- Last 24 Hours up to 6 AM 04/25/20 06:00 Intake Total 1620 ml Output Total 250 ml Balance 1370 ml Laboratory Data 24H LABS Laboratory Tests 2 04/25/20 06:00: Immature Granulocyte % (Auto) 0.3, Neutrophils (%) (Auto) 70.0H, Lymphocytes (%) (Auto) 20.0L, Monocytes (%) (Auto) 6.8H, Eosinophils (%) (Auto) 2.4, Basophils (%) (Auto) 0.5, Neutrophils # (Auto) 4.0, Lymphocytes # (Auto) 1.2L, Monocytes # (Auto) 0.4, Eosinophils # (Auto) 0.1, Basophils # (Auto) 0.0, Nucleated Red Blood Cells % (auto) 0.0, Anion Gap 5L, Glomerular Filtration Rate > 60.0, Calcium Level 9.1, Magnesium Level 2.2, Total Bilirubin 0.6, Aspartate Amino Tra nsf (AST/SGOT) 13, Alanine Aminotransferase (ALT/SGPT) 18, Alkaline Phosphatase 58, Total Protein 7.2, Albumin 3.3, Albumin/Globulin Ratio 0.8L 04/25/20 09:15: Coronavirus (COVID-19)(PCR) NEGATIVE CBC/BMP Laboratory Tests 04/25/20 06:00 Microbiology Microbiology 04/23/20 Blood Culture - Preliminary, Resulted No Growth after 48 hours. All Specime... 04/23/20 Blood Culture - Preliminary, Resulted No Growth after 48 hours. All Specime... Current Medications Current Medications Medications (Trade) Dose Ordered Sig/Marielle Route PRN Reason Start Time Stop Time Status Last Admin Dose Admin Acetaminophen/ Hydrocodone Bitart (Anexsia, [place] 7.5mg/325mg) 1 tab Q6H PRN PO PAIN 04/23/20 18:45 04/25/20 09:40 Albuterol Sulfate (Proventil, Ventolin Hfa) 2 puff Q4H PRN INH wheezing 04/23/20 18:45 Clonazepam (KlonoPIN) 0.5 mg BID PRN PO ANXIETY/AGITATION 04/24/20 18:45 04/25/20 08:17 Clonazepam (KlonoPIN) 0.5 mg QHS PO 04/23/20 21:00 04/24/20 20:45 Cyclobenzaprine HCl (Flexeril) 10 mg BID PRN PO MUSCLE SPASMS 04/23/20 18:45 04/25/20 08:17 Diatrizoate Meglum/ Diatrizoate Sod (Gastrografin) 10 ml Q30M PO 04/23/20 12:15 04/23/20 12:46 DC 04/23/20 13:45 Docusate Sodium (Colace) 100 mg BID PO 04/23/20 21:00 04/25/20 08:18 Fluticasone Propionate (Flonase 0.05% Nasal [place]) 2 spray DAILY PRN NARES CONGESTION 04/23/20 18:45 Home Med (Med Rec Complete!) ASDIRECTED XX 04/23/20 17:45 04/23/20 17:49 DC Meclizine HCl (Antivert) 25 mg Q8H PRN PO NAUSEA OR VOMITING 04/23/20 18:45 04/24/20 07:39 Olanzapine (ZyPREXA) 5 mg TID PO 04/24/20 21:00 04/25/20 08:18 Ondansetron HCl (ZOFRAN INJection) 4 mg Q4H IV 04/25/20 18:00 Polyethylene Glycol (Miralax) 1 pkt DAILY PRN PO CONSTIPATION 04/23/20 18:45 Potassium Chloride (Micro-K Extencaps) 20 meq BID PO 04/23/20 21:00 04/25/20 08:17 Pseudoephedrine HCl (Sudafed) 30 mg BID PO 04/23/20 21:00 04/25/20 08:17 Ramelteon (Rozerem) 8 mg QHS PRN PO INSOMNIA 04/24/20 00:45 04/24/20 20:45 Salmeterol Xinafoate/ Fluticasone (Advair Hfa 45-21 Mcg/Act) 2 puff BID INH 04/23/20 21:00 04/25/20 08:11 Allergies Coded Allergies: Penicillins (Verified Allergy, Intermediate, RASH, 10/02/19) magnesium citrate (Verified Allergy, Intermediate, HIVES, 10/02/19) latex (Verified Allergy, Mild, 10/02/19) diazepam (Verified Adverse Reaction, Mild, SPINNING, 10/02/19) meperidine (Verified Adverse Reaction, Mild, DIZZINESS, 10/02/19) nitrofurantoin (Verified Adverse Reaction, Mild, GI UPSET, 10/02/19) propoxyphene (Verified Adverse Reaction, Mild, DIZZINESS, 10/02/19) Gauri Bowie MD Apr 25, 2020 18:10
[2020-04-25 18:44] VITALS: BP 149/77
[2020-04-25] MEDS: ONDANSETRON 4 MG ORAL DISINTEGRATING TAB PO PRN (18:49)
[2020-04-25] MEDS: clonazePAM 0.5 MG TAB PO SCH (20:13)
[2020-04-25] MEDS: RAMELTEON 8 MG TAB (ROZEREM) PO PRN (20:13)
[2020-04-25 22:00] VITALS: BP 141/86
[2020-04-26] MEDS ORDERED: POLYETHYLENE GLYCOL (MIRALAX) 238GM BOTTLE PO ONE (05:00)
[2020-04-26 06:00] VITALS: BP 134/81
[2020-04-26 06:12] LABS: BASO % 0.4 % (0.0-1.0); EOS # 0.2 10^3/uL (0.0-0.5); EOS % 3.4 % (0.0-3.0); HEMATOCRIT 32.9 % (36.0-47.0); LYMPH # 1.1 10^3/uL (1.5-5.0); LYMPH % 23.2 % (24.0-44.0); MEAN CORPUSCULAR HEMOGLOBIN 29.3 pg (27.0-33.0); MEAN CORPUSCULAR HGB CONC 30.4 g/dl (32.0-36.5); MEAN CORPUSCULAR VOLUME 96.5 fl (80.0-96.0); MONO # 0.3 10^3/uL (0.0-0.8); MONO % 5.9 % (0.0-5.0); NEUTROPHILS # 3.2 10^3/uL (1.5-8.5); NEUTROPHILS % 66.9 % (36.0-66.0); PLATELET COUNT, AUTOMATED 181 10^3/uL (150-450); RED BLOOD COUNT 3.41 10^6/uL (4.00-5.40); WHITE BLOOD COUNT 4.7 10^3/uL (4.0-10.0)
[2020-04-26 06:40] LABS: ALBUMIN 3.3 GM/DL (3.2-5.2); ALT/SGPT 20 U/L (12-78); BILIRUBIN,TOTAL 0.5 MG/DL (0.2-1.0); BLOOD UREA NITROGEN 8 MG/DL (7-18); CALCIUM LEVEL 9.2 MG/DL (8.8-10.2); CARBON DIOXIDE LEVEL 26 MEQ/L (21-32); CHLORIDE LEVEL 113 MEQ/L (98-107); CREATININE FOR GFR 0.69 MG/DL (0.55-1.30); GLOMERULAR FILTRATION RATE > 60.0 (>45); GLUCOSE, FASTING 117 MG/DL (70-100); MAGNESIUM LEVEL 2.2 MG/DL (1.8-2.4); POTASSIUM SERUM 4.5 MEQ/L (3.5-5.1); SODIUM LEVEL 142 MEQ/L (136-145); TOTAL PROTEIN 6.9 GM/DL (6.4-8.2)
[2020-04-26] MEDS: ADVAIR HFA 45/21MCG INHALER INH SCH ×2 (07:50→20:27)
[2020-04-26] MEDS: ANEXSIA, NORCO 7.5MG/325MG TABLET(HYDROCODONE/APAP) PO PRN ×2 (08:11→20:44)
[2020-04-26] MEDS: ONDANSETRON 4 MG ORAL DISINTEGRATING TAB PO PRN (08:12)
[2020-04-26] MEDS: CYCLOBENZAPRINE 10MG TABLET PO PRN (08:12)
[2020-04-26] MEDS: clonazePAM 0.5 MG TAB PO PRN (08:12)
[2020-04-26] MEDS: PSEUDOEPHEDRINE 30 MG TAB PO SCH ×2 (08:12→20:44)
[2020-04-26] MEDS: OLANZapine 5 MG TAB PO SCH ×3 (08:12→20:44)
[2020-04-26] MEDS: POTASSIUM CHLORIDE 10 MEQ SR TABLET PO SCH ×2 (08:16→20:44)
[2020-04-26] MEDS: DOCUSATE SODIUM 100 MG CAP PO SCH ×2 (08:16→20:44)
[2020-04-26] MEDS ORDERED: LORazepam 2 MG/ML VIAL IV STA (11:01)
[2020-04-26] MEDS ORDERED: LORazepam 2 MG/ML VIAL IV ONE (11:30)
[2020-04-26] MEDS ORDERED: propofoL 200 MG/20 ML VIAL As Ordered ONE ×2 (15:44→16:31)
[2020-04-26] MEDS ORDERED: LIDOCAINE 2% 100MG/5ML SDV (FOR ANES.) As Ordered ONE (15:44)
--- NOTE | 2020-04-26 16:58 | ROOR ---
Patient Name: Sole Ramirez Procedure Date: 04/26/2020 4:09 PM Date of : 1955 Age: 64 Room: [facility] Gender: Female Note Status: Finalized Procedure: Colonoscopy Indications: Hematochezia Providers: Edis JUAN MD Referring MD: Daisy Rodriguez NP Requesting Provider: Medicines: Monitored Anesthesia Care Complications: No immediate complications. Procedure: Pre-Anesthesia Assessment: - The heart rate, respiratory rate, oxygen saturations, blood pressure, adequacy of pulmonary ventilation, and response to care were monitored throughout the procedure. The Colonoscope was introduced through the anus and advanced to 5 cm into the ileum. The colonoscopy was performed without difficulty. The patient tolerated the procedure well. The quality of the bowel preparation was adequate. Findings: The perianal and digital rectal examinations were normal. A single (solitary) ten mm ulcer was found in the mid rectum. Biopsies were taken with a cold forceps for histology. Internal hemorrhoids were found during retroflexion. The hemorrhoids were moderate. A 5 mm polyp was found in the splenic flexure. The polyp was sessile. The polyp was removed with a cold snare. Resection and retrieval were complete. To prevent bleeding after the polypectomy, one hemostatic clip was successfully placed. There was no bleeding at the end of the procedure. A few medium-mouthed diverticula were found in the entire colon. The exam was otherwise normal throughout the examined colon. The terminal ileum appeared normal. Impression: - A single (solitary) ulcer in the mid rectum, likely related to past fecal impaction Biopsied. - Moderate Internal hemorrhoids. - One 5 mm polyp at the splenic flexure, removed with a cold snare. Resected and retrieved. Clip was placed. - Mild diverticulosis in the entire examined colon. - The colon was otherwise normal. - The examined portion of the ileum was normal. Recommendation: - Use Lactulose at 1 tbsp PO BID indefinitely. - Repeat colonoscopy in 5 years for surveillance. - Return to referring physician as previously scheduled. - Pt does not need routine office follow up with me. Will place her on recall 5 years. Edis Juan MD Edis JUAN MD 04/26/2020 4:58:24 PM Electronically signed by Edis JUAN MD Number of Addenda: 0 Note Initiated On: 04/26/2020 4:09 PM Estimated Blood Loss: Estimated blood loss: none.
[2020-04-26 17:30] VITALS: BP 130/79
[2020-04-26] MEDS: MECLIZINE 25 MG TABLET PO PRN (17:40)
[2020-04-26 18:00] VITALS: BP 119/75
--- NOTE | 2020-04-26 18:02 | IPNPDOC ---
Date Seen The patient was seen on 04/26/20. Progress Note SUBJECTIVE: Even today, still appearing to be in manic state with being difficult to redirect to conversation, rapid speaking, demanding things such as [facility]", talking over me continuously. Increased agitation with nursing, apparently tried to punch one 04/25/20. Given one dose extra of ativan today for increased agitation. Feels overall "not good" but has previously had many somatic symptoms. OBJECTIVE: PHYSICAL EXAMINATION: VS: Please see below General: NAD, sitting up at side of bed, agitated HEENT: PERRLA, EOMI, sclerae clear Neck: supple, normal ROM, no JVD Respiratory: lungs CTAB, no wheeze, no rales, no crackles CVS: RRR, normal S1, S2, no murmurs Abdo: soft, no masses, no hepatosplenomegaly, BS+, no rebound tenderness. : Deferred Extremities: no edema, pulses 2+ MSK: no joint deformities, normal ROM. Right ankle in Aircast. Neuro: no focal neuro deficits, moving all 4 extremities, CN2-12 intact. Strength 5/5 in all 4 extremities. No nystagmus. Psych: tangential, rapid speech, manic LABORATORY DATA, IMAGING STUDIES, MICROBIOLOGY: Please see below. ASSESSMENT: Patient is a 64 yo F with a hx of bipolar disorder, DVTs (on eliquis), recurrent GI bleeding, asthma admitted and getting treated for acute lower GI bleed. PLAN: #LGIB, acute and possibly diverticular bleed from findings on CT. Hx of GI bleed in past. H/H stable. No transfusion this admission. Transfuse for Hgb < 7. GI consulted and following, plan for colonoscopy 04/26/20. #Hx of recurrent DVT on eliquis 5 mg po bid at home. Hold in the setting of LG IB. Chronicity of use is unclear, however records suggest patient has been taking it since at least 2015. Spoke to PCP, Daisy Rodriguez. Patient recurrent DVT off eliquis, last one ~ 5 years ago. Hematology recommends await colonoscopy. # Bipolar disorder. Patient seen and evaluated by Dr. Villalpando. Patient is manic, impulsive, has poor insight and judgement. Zyprexa increased to 0.5 mg PO TID. Increased klonopin to 0.5 mg PO BID. If patient continues to refuse PO meds, will need to discuss with psych about other options. Re-eval after colonoscopy, may consider [facility] transfer. #Hx R ankle fx. Currently wearing air cast. States she follows with Dr. Denny. #Asthma: Stable on RA. Cont home advair #Back pain: cyclobenzaprine prn, norco 7.5 1 tab po q6h prn #Anxiety: klonopin DVT ppx: TEDs, SCDs. Hold chemoppx in setting of LGIB. DISPOSITION: colonoscopy today, f/u results. GI following. Possibly transferring to [facility] after acute issues addressed inpatient. VS, I&O, 24H, Fishbone Vital Signs/I&O Vital Signs Date Time Temp Pulse Resp B/P (MAP) Pulse Ox O2 Delivery O2 Flow Rate FiO2 04/26/20 17:20 76 18 144/82 (102) 96 Room Air 04/26/20 16:55 98.2 I&O- Last 24 Hours up to 6 AM 04/26/20 06:00 Intake Total 1360 ml Output Total 300 ml Balance 1060 ml Laboratory Data 24H LABS Laboratory Tests 2 04/26/20 05:57: Immature Granulocyte % (Auto) 0.2, Neutrophils (%) (Auto) 66.9H, Lymphocytes (%) (Auto) 23.2L, Monocytes (%) (Auto) 5.9H, Eosinophils (%) (Auto) 3.4H, Basophils (%) (Auto) 0.4, Neutrophils # (Auto) 3.2, Lymphocytes # (Auto) 1.1L, Monocytes # (Auto) 0.3, Eosinophils # (Auto) 0.2, Basophils # (Auto) 0.0, Nucleated Red Blood Cells % (auto) 0.0, Anion Gap 3L, Glomerular Filtration Rate > 60.0, Calcium Level 9.2, Magnesium Level 2.2, Total Bilirubin 0.5, Aspartate Amino Transf (AST/SGOT) 13, Alanine Aminotransferase (ALT/SGPT) 20, Alkaline Phosphatase 62, Total Protein 6.9, Albumin 3.3, Albumin/Globulin Ratio 0.9L 04/26/20 14:41: Bedside Glucose (Misc Panel) 93 CBC/BMP Laboratory Tests 04/26/20 05:57 Microbiology Microbiology 04/23/20 Blood Culture - Preliminary, Resulted No Growth after 72 hours. All specime... 04/23/20 Blood Culture - Preliminary, Resulted No Growth after 72 hours. All specime... Current Medications Current Medications Medications (Trade) Dose Ordered Sig/Marielle Route PRN Reason Start Time Stop Time Status Last Admin Dose Admin Acetaminophen/ Hydrocodone Bitart (Anexsia, [place] 7.5mg/325mg) 1 tab Q6H PRN PO PAIN 04/23/20 18:45 04/26/20 08:11 Albuterol Sulfate (Proventil, Ventolin Hfa) 2 puff Q4H PRN INH wheezing 04/23/20 18:45 Clonazepam (KlonoPIN) 0.5 mg BID PRN PO ANXIETY/AGITATION 04/24/20 18:45 04/26/20 08:12 Clonazepam (KlonoPIN) 0.5 mg QHS PO 04/23/20 21:00 04/25/20 20:13 Cyclobenzaprine HCl (Flexeril) 10 mg BID PRN PO MUSCLE SPASMS 04/23/20 18:45 04/26/20 08:12 Diatrizoate Meglum/ Diatrizoate Sod (Gastrografin) 10 ml Q30M PO 04/23/20 12:15 04/23/20 12:46 DC 04/23/20 13:45 Docusate Sodium (Colace) 100 mg BID PO 04/23/20 21:00 04/25/20 08:18 Fluticasone Propionate (Flonase 0.05% Nasal [place]) 2 spray DAILY PRN NARES CONGESTION 04/23/20 18:45 Home Med (Med Rec Complete!) ASDIRECTED XX 04/23/20 17:45 04/23/20 17:49 DC Lactulose (Cephulac) 30 ml BID@0800,2000 PO 04/27/20 08:00 Lorazepam (Ativan) 1 mg STAT STAT IV 04/26/20 11:01 04/26/20 11:11 DC Meclizine HCl (Antivert) 25 mg Q8H PRN PO NAUSEA OR VOMITING 04/23/20 18:45 04/26/20 17:40 Olanzapine (ZyPREXA) 5 mg TID PO 04/24/20 21:00 04/26/20 08:12 Ondansetron HCl (ZOFRAN INJection) 4 mg Q4H IV 04/25/20 18:00 04/25/20 18:01 DC Ondansetron HCl (Zofran Odt) 4 mg Q4HP PRN PO NAUSEA OR VOMITING 04/25/20 18:00 04/26/20 08:12 Polyethylene Glycol (Miralax) 1 pkt DAILY PRN PO CONSTIPATION 04/23/20 18:45 Potassium Chloride (Micro-K Extencaps) 20 meq BID PO 04/23/20 21:00 04/26/20 08:16 Pseudoephedrine HCl (Sudafed) 30 mg BID PO 04/23/20 21:00 04/26/20 08:12 Ramelteon (Rozerem) 8 mg QHS PRN PO INSOMNIA 04/24/20 00:45 04/25/20 20:13 Salmeterol Xinafoate/ Fluticasone (Advair Hfa 45-21 Mcg/Act) 2 puff BID INH 04/23/20 21:00 04/26/20 07:50 Allergies Coded Allergies: Penicillins (Verified Allergy, Intermediate, RASH, 10/02/19) magnesium citrate (Verified Allergy, Intermediate, HIVES, 10/02/19) latex (Verified Allergy, Mild, 10/02/19) diazepam (Verified Adverse Reaction, Mild, SPINNING, 10/02/19) meperidine (Verified Adverse Reaction, Mild, DIZZINESS, 10/02/19) nitrofurantoin (Verified Adverse Reaction, Mild, GI UPSET, 10/02/19) propoxyphene (Verified Adverse Reaction, Mild, DIZZINESS, 10/02/19) Gauri Bowie MD Apr 26, 2020 18:02
[2020-04-26 19:00] VITALS: BP 120/77
[2020-04-26 20:00] VITALS: BP 121/77
[2020-04-26] MEDS: RAMELTEON 8 MG TAB (ROZEREM) PO PRN (20:43)
[2020-04-26] MEDS: clonazePAM 0.5 MG TAB PO SCH (20:44)
[2020-04-26 22:17] VITALS: BP 126/64
[2020-04-27 02:00] VITALS: BP 124/70
[2020-04-27 06:41] VITALS: BP 147/88
[2020-04-27] MEDS: ADVAIR HFA 45/21MCG INHALER INH SCH (07:39)
[2020-04-27 07:48] LABS: BASO % 0.6 % (0.0-1.0); EOS # 0.2 10^3/uL (0.0-0.5); HEMOGLOBIN 11.7 g/dl (12.0-15.5); LYMPH # 1.5 10^3/uL (1.5-5.0); LYMPH % 29.7 % (24.0-44.0); MEAN CORPUSCULAR HGB CONC 30.8 g/dl (32.0-36.5); MEAN CORPUSCULAR VOLUME 97.4 fl (80.0-96.0); MONO # 0.3 10^3/uL (0.0-0.8); MONO % 5.4 % (0.0-5.0); NEUTROPHILS # 3.1 10^3/uL (1.5-8.5); NEUTROPHILS % 61.1 % (36.0-66.0); PLATELET COUNT, AUTOMATED 215 10^3/uL (150-450)
[2020-04-27] MEDS ORDERED: LACTULOSE 20 GM/30 ML SYRUP UD PO SCH ×2 (08:00→09:00)
[2020-04-27] MEDS: PSEUDOEPHEDRINE 30 MG TAB PO SCH (08:06)
[2020-04-27] MEDS: DOCUSATE SODIUM 100 MG CAP PO SCH ×2 (08:06→09:00)
[2020-04-27] MEDS: OLANZapine 5 MG TAB PO SCH (08:06)
[2020-04-27] MEDS: POTASSIUM CHLORIDE 10 MEQ SR TABLET PO SCH (08:06)
[2020-04-27] MEDS: ANEXSIA, NORCO 7.5MG/325MG TABLET(HYDROCODONE/APAP) PO PRN (08:07)
[2020-04-27] MEDS ORDERED: DOCU100C16 PO (08:16)
[2020-04-27] MEDS ORDERED: OLAN5TAB PO (08:16)
[2020-04-27] MEDS ORDERED: LACT20EL PO (08:16)
[2020-04-27] MEDS ORDERED: CLON0.5T2 PO ×2 (08:16)
[2020-04-27 08:18] LABS: ALBUMIN 3.4 GM/DL (3.2-5.2); ALT/SGPT 21 U/L (12-78); BILIRUBIN,TOTAL 0.4 MG/DL (0.2-1.0); BLOOD UREA NITROGEN 11 MG/DL (7-18); CALCIUM LEVEL 8.9 MG/DL (8.8-10.2); CARBON DIOXIDE LEVEL 26 MEQ/L (21-32); CHLORIDE LEVEL 110 MEQ/L (98-107); CREATININE FOR GFR 0.92 MG/DL (0.55-1.30); GLOMERULAR FILTRATION RATE > 60.0 (>45); GLUCOSE, FASTING 168 MG/DL (70-100); POTASSIUM SERUM 4.3 MEQ/L (3.5-5.1); SODIUM LEVEL 141 MEQ/L (136-145); TOTAL PROTEIN 7.3 GM/DL (6.4-8.2)
[2020-04-27 10:00] VITALS: BP 136/88
--- NOTE | 2020-04-27 11:50 | MHIPNPDOC ---
[facility] Progress Note Progress Note DATE OF SERVICE: 04/27/20 HISTORY: Patient is a 64 year old Single, Retired/Disabled, Domiciled, Female who is consulted today at request of Dr. Bowie and Dr. Villalpando who evaluated patient on 04/24/20 (Please see Dr. Villalpando's Consultation on 04/24/20. To review, patient admitted to [address] [place] [address] for complaints of GI bleeding. She had a colonoscopy yesterday which showed inflammatory polyp. This patient also has a history of Bipolar Disorder. In today's visit, she reported that she is awaiting a cast for her right leg, as she had fractured it again. Reporting that she has fractured it 17 times over the course of several years. She also reports the need to return home because she has someone that is expected to be there to clean her home, states has several workers that are due today in her home. VITAL SIGNS: See below. NEW TEST RESULTS: Please see results CURRENT MEDICATIONS: See below. MENTAL STATUS EXAMINATION: Patient is a 64-year old Single, Retired/Disabled, Domiciled female, who is alert and oriented to person, place and time. She is calm and cooperative during interview. She is dressed in hospital gown, sitting upright in a chair. Her hygiene and grooming is fair, she makes good eye contact, no evidence of psychomotor retardation or agitation during the interview. She has a sitter with her, sitter was asked to leave during the consultation. Speech: Is rapid, mildly pressured but extremely Language skills are intact Thought processes including: disorganized, circumstantial and tangential Thought content: she denies depression, anxiety, suicidal/homicidal ideation, she is not observed with paranoia, auditory or visual hallucinations. She is however demonstrating manic behaviors and delusions of grandeur. Abstract reasoning, and computation: poor/impaired Description of associations: loose Description of abnormal or psychotic thoughts: no paranoia, rumination, dichotomous, psychotic thoughts but she has strong delusions of grandeur stating that she has a brother who is a billionaire and a neighbor who wants to give her money. Judgment: poor Insight: poor Orientation: Alert and oriented to person, place and time. Poor articulation as to her reason for admission. Recent and remote memory: Fair Attention span and concentration: Fair, is often not able to be redirected Language: average Fund of knowledge: Average Mood: euthymic Affect: flat DIAGNOSES: Bipolar Disorder, Recurrent, Manic Episode ASSESSMENT: Patient remains tangential, disorganized and circumstantial in speech. Throughout the interview patient was difficult to redirect and was manic and demonstrated delusions of grandeur. She is observed with symptoms of racing and excessive talking, delusions, irritability with other staff and had an episode where she threatened to harm a provider, delusions of grandeur and importance. Stating that she has been with Kelvin Parra of [facility] and had a baby with him, as well as having a baby with an [place] Or[place]. When asked why she is in the hospital today, she is unable to answer, reporting that she is waiting to be casted for fractured leg. The consult was discussed with Dr. Villalpando, given the patient's history and lack of insight and judgment our recommendation is to admit patient to [facility] for further hospitalization and stabilization. MANAGEMENT PLAN: At this time, patient can be admitted to [facility] as she exhibits moderate symptoms of Bipolar I Disorder. Patient will continue on medications that were recommended by Dr. Villalpando. TIME SPENT: 35 minutes. Vital Signs Vital Signs Date Time Temp Pulse Resp B/P (MAP) Pulse Ox O2 Delivery O2 Flow Rate FiO2 04/27/20 10:00 98.4 86 14 136/88 (104) 91 Room Air Laboratory Data 24H Labs Laboratory Tests 2 04/26/20 14:41: Bedside Glucose (Misc Panel) 93 04/27/20 07:28: Immature Granulocyte % (Auto) 0.2, Neutrophils (%) (Auto) 61.1, Lymphocytes (%) (Auto) 29.7, Monocytes (%) (Auto) 5.4H, Eosinophils (%) (Auto) 3.0, Basophils (%) (Auto) 0.6, Neutrophils # (Auto) 3.1, Lymphocytes # (Auto) 1.5, Monocytes # (Auto) 0.3, Eosinophils # (Auto) 0.2, Basophils # (Auto) 0.0, Nucleated Red Blo od Cells % (auto) 0.0, Anion Gap 5L, Glomerular Filtration Rate > 60.0, Calcium Level 8.9, Magnesium Level 2.0, Total Bilirubin 0.4, Aspartate Amino Transf (AST/SGOT) 15, Alanine Aminotransferase (ALT/SGPT) 21, Alkaline Phosphatase 65, Total Protein 7.3, Albumin 3.4, Albumin/Globulin Ratio 0.9L CBC/BMP Laboratory Tests 04/27/20 07:28 Current Medications Current Medications Medications (Trade) Dose Ordered Sig/Marielle Route PRN Reason Start Time Stop Time Status Last Admin Dose Admin Acetaminophen/ Hydrocodone Bitart (Anexsia, [place] 7.5mg/325mg) 1 tab Q6H PRN PO PAIN 04/23/20 18:45 04/27/20 08:07 Albuterol Sulfate (Proventil, Ventolin Hfa) 2 puff Q4H PRN INH wheezing 04/23/20 18:45 Clonazepam (KlonoPIN) 0.5 mg BID PRN PO ANXIETY/AGITATION 04/24/20 18:45 04/26/20 08:12 Clonazepam (KlonoPIN) 0.5 mg QHS PO 04/23/20 21:00 04/26/20 20:44 Cyclobenzaprine HCl (Flexeril) 10 mg BID PRN PO MUSCLE SPASMS 04/23/20 18:45 04/26/20 08:12 Diatrizoate Meglum/ Diatrizoate Sod (Gastrografin) 10 ml Q30M PO 04/23/20 12:15 04/23/20 12:46 DC 04/23/20 13:45 Docusate Sodium (Colace) 100 mg BID PO 04/23/20 21:00 04/25/20 08:18 Fluticasone Propionate (Flonase 0.05% Nasal [place]) 2 spray DAILY PRN NARES CONGESTION 04/23/20 18:45 Home Med (Med Rec Complete!) ASDIRECTED XX 04/23/20 17:45 04/23/20 17:49 DC Lactulose (Cephulac) 15 ml BID PO 04/27/20 09:00 Lactulose (Cephulac) 30 ml BID@0800,2000 PO 04/27/20 08:00 04/27/20 09:08 DC Lorazepam (Ativan) 1 mg STAT STAT IV 04/26/20 11:01 04/26/20 11:11 DC Meclizine HCl (Antivert) 25 mg Q8H PRN PO NAUSEA OR VOMITING 04/23/20 18:45 04/26/20 17:40 Miscellaneous (Unresolved Clarification Entry) SEE LABEL COMMENTS DAILY XX 04/26/20 09:00 04/27/20 09:14 DC Olanzapine (ZyPREXA) 5 mg TID PO 04/24/20 21:00 04/27/20 08:06 Ondansetron HCl (ZOFRAN INJection) 4 mg Q4H IV 04/25/20 18:00 04/25/20 18:01 DC Ondansetron HCl (Zofran Odt) 4 mg Q4HP PRN PO NAUSEA OR VOMITING 04/25/20 18:00 04/26/20 08:12 Polyethylene Glycol (Miralax) 1 pkt DAILY PRN PO CONSTIPATION 04/23/20 18:45 Potassium Chloride (Micro-K Extencaps) 20 meq BID PO 04/23/20 21:00 04/27/20 08:06 Pseudoephedrine HCl (Sudafed) 30 mg BID PO 04/23/20 21:00 04/27/20 08:06 Ramelteon (Rozerem) 8 mg QHS PRN PO INSOMNIA 04/24/20 00:45 04/26/20 20:43 Salmeterol Xinafoate/ Fluticasone (Advair Hfa 45-21 Mcg/Act) 2 puff BID INH 04/23/20 21:00 04/27/20 07:39 Allergies Coded Allergies: Penicillins (Verified Allergy, Intermediate, RASH, 10/02/19) magnesium citrate (Verified Allergy, Intermediate, HIVES, 10/02/19) latex (Verified Allergy, Mild, 10/02/19) diazepam (Verified Adverse Reaction, Mild, SPINNING, 10/02/19) meperidine (Verified Adverse Reaction, Mild, DIZZINESS, 10/02/19) nitrofurantoin (Verified Adverse Reaction, Mild, GI UPSET, 10/02/19) propoxyphene (Verified Adverse Reaction, Mild, DIZZINESS, 10/02/19) JHOAN LARSON NP Apr 27, 2020 11:50
--- NOTE | 2020-04-27 17:27 | DS.PDOC ---
Discharge Summary General Date of Admission Apr 23, 2020 at 17:32 Date of Discharge 04/28/20 Attending Physician: Gauri Bowie MD Discharge Summary HISTORY OF PRESENT ILLNESS: Mrs. Ramirez is a 64 yo F with a history of bipolar disorder, DVTs (on eliquis), GI bleeding, anemia, asthma, presenting to the ED c/o of large bloody BM with clots this morning. Patient describes large formed clots, dark and bright blood mixed with stool. She is a poor historian. She is very concerned about getting a hospital bed at this time. At present time she denies dizziness, lightheadedness, chest pain, blurred vision. On arrival to the ED, BP 135/96, HR 98, RR 18, SpO2 97% on RA, T 98.1. Laboratory values significant for Hgb 12.1. HCT 38.6. PLT 219. BUN 18. LA 1.3. BG 106. AST 13. ALT 24. ALP 66. Trop < 0.02. EKG showing no acute ischemic changes. CT of the abdomen and pelvis with contrast showed dense material in a diverticulum splenic flexure of the colon, which could represent radiodense material between prior study and now versus luminal contrast extravasation suggestive of active bleeding from possibly a diverticulum. Last colonoscopy was in February 2016 for persistent diarrhea/anemia. Noted 2 small polyps of the rectosigmoid colon, removed with hot snare. Otherwise, sigmoid, descending, transverse, ascending, cecum and appendiceal orifice and ileocecal valve were normal. Recommendation was for repeat colonoscopy in 3-5 years for surveillance. Pathology showed inflammatory polyp. Admitted to hospitalist service for LGIB workup, monitoring of hemoglobin. HOSPITAL COURSE: AC was stopped on admission. Patient's required no transfusions this hospital stay but she did have several bloody bowel movements seen. She was seen by GI and taken for colonoscopy on 04/27/20. A single (solitary) ulcer in the mid rectum, likely related to past fecal impaction was seen and biopsied. Other findings include: 1. moderate Internal hemorrhoids, 2. one 5 mm polyp at the splenic flexure, removed with a cold snare. Resected and retrieved. Clip was placed. 3. mild diverticulosis in the entire examined colon. It was recommended to use Lactulose at 1 tbsp PO BID indefinitely, repeat colonoscopy in 5 years for surveillance, return to referring physician as previously scheduled and the patient did not need routine office follow up with GI. Dr. Tipton (hematology/onc) had seen patient due to hx of recurrent DVt on xarelto. She recommended staying off AC for 2 weeks and reassessing possibility then to restart due to high risk of having recurrent DVT or PE. Dr. Villalpando, psychiatry, was consulted this stay due to bipolar I disorder, manic episode. Zyprexa was increased to 5 mgs PO TID, klonopin to 0.5 mgs PO BID and she had a 1:1 during her hospital stay. On 04/27/20, patient had not had bloody bowel movement in 48 hrs. She was reassessed by psychiatry and after discharge from inpatient, was involuntarily admitted to inpatient mental health unit. At the time of discharge , patient was hemodynamically stable. PAST MEDICAL HISTORY: Panic attacks. Gastroesophageal reflux disease (GERD). Recurrent GI bleed Myxopapillary ependymoma. Asthma. Deep vein thromboses (DVTs). Bipolar disorder. Low back pain. Sciatica. Ankle contusion. Neck sprain. Chronic abdominal pain. PAST SURGICAL HISTORY: Laparoscopic incisional hernia repair Cholecystectomy. Total dental extraction. Previous spine surgery SOCIAL HISTORY: Patient denies smoking Patient denies etoh use Patient denies illicit drug use FAMILY HISTORY: Father - history of Alzheimer's, ALLERGIES: Please see below. DISCHARGE MEDICATIONS: Please see below. PHYSICAL EXAMINATION: VS: Please see below General: NAD, sitting up at side of bed, agitated HEENT: PERRLA, EOMI, sclerae clear Neck: supple, normal ROM, no JVD Respiratory: lungs CTAB, no wheeze, no rales, no crackles CVS: RRR, normal S1, S2, no murmurs Abdo: soft, no masses, no hepatosplenomegaly, BS+, no rebound tenderness. : Deferred Extremities: no edema, pulses 2+ MSK: no joint deformities, normal ROM. Right ankle in Aircast. Neuro: no focal neuro deficits, moving all 4 extremities, CN2-12 intact. Strength 5/5 in all 4 extremities. No nystagmus. Psych: tangential, rapid speech, manic LABORATORY DATA, IMAGING STUDIES, MICROBIOLOGY: Colonoscopy: - A single (solitary) ulcer in the mid rectum, likely related to past fecal impaction Biopsied. - Moderate Internal hemorrhoids. - One 5 mm polyp at the splenic flexure, removed with a cold snare. Resected and retrieved. Clip was placed. - Mild diverticulosis in the entire examined colon. - The colon was otherwise normal. - The examined portion of the ileum was normal. ASSESSMENT: Patient is a 64 yo F with a hx of bipolar disorder, DVTs (on eliquis), recurrent GI bleeding, asthma admitted for lower GI bleed likely 2/2 to rectal ulcer bleeding and bipolar disorder, manic episode. PLAN: #LGIB, acute likely 2/2 to rectal ulcer. Hx of GI bleed in past. Bleeding has stopped, H/H stable. No transfusion this admission. Colonoscopy above. c/w lactulose BID indefinetly. Hold off on AC for now. Reassess when to restart by PCP in 2 weeks time. #Hx of recurrent DVT on eliquis 5 mg po bid at home. Held in the setting of recent LGIB but high risk according to heme/onc. Will need to f/u in 2 weeks with PCP to assess if patient can be restarted on AC at that time. Hematology recommends holding off on IVC filter placement currently. # Bipolar disorder, manic episode. C/w current meds. Admitting to [facility] after inpatient discharge. Dr. Villalpando discussed case today with me. #Hx R ankle fx. Currently wearing air cast. States she follows with Dr. Tracy bardales. #Asthma: Stable on RA. Cont home med #Chronic back pain: cyclobenzaprine prn, norco 7.5 1 tab po q6h prn #Anxiety: klonopin DISPOSITION: Discharging today to be admitted to [facility], Dr. Villalpando. Will need f/u with PCP in 2 weeks to reevaluate restarting xarelto due to high risk of clot formation and other complications. TIME SPENT ON DISCHARGE: Greater than 30 minutes. Vital Signs/I&Os Vital Signs Date Time Temp Pulse Resp B/P (MAP) Pulse Ox O2 Delivery O2 Flow Rate FiO2 04/27/20 10:00 98.4 86 14 136/88 (104) 91 Room Air I&O- Last 24 Hours up to 6 AM 04/27/20 06:00 Intake Total 500 ml Output Total 0 ml Balance 500 ml Laboratory Data Labs 24H Laboratory Tests 2 04/27/20 07:28: Immature Granulocyte % (Auto) 0.2, Neutrophils (%) (Auto) 61.1, Lymphocytes (%) (Auto) 29.7, Monocytes (%) (Auto) 5.4H, Eosinophils (%) (Auto) 3.0, Basophils ( %) (Auto) 0.6, Neutrophils # (Auto) 3.1, Lymphocytes # (Auto) 1.5, Monocytes # (Auto) 0.3, Eosinophils # (Auto) 0.2, Basophils # (Auto) 0.0, Nucleated Red Blood Cells % (auto) 0.0, Anion Gap 5L, Glomerular Filtration Rate > 60.0, Calcium Level 8.9, Magnesium Level 2.0, Total Bilirubin 0.4, Aspartate Amino Transf (AST/SGOT) 15, Alanine Aminotransferase (ALT/SGPT) 21, Alkaline Phosphatase 65, Total Protein 7.3, Albumin 3.4, Albumin/Globulin Ratio 0.9L CBC/BMP Laboratory Tests 04/27/20 07:28 Microbiology Microbiology 04/23/20 Blood Culture - Preliminary, Resulted No Growth after 72 hours. All specime... 04/23/20 Blood Culture - Preliminary, Resulted No Growth after 72 hours. All specime... Discharge Medications Scheduled Apixaban (Eliquis) 5 Mg Tab, 5 MG PO BID, (Reported) Clonazepam (Clonazepam) 0.5 Mg Tablet, 0.5 MG PO QHS Docusate Sodium (Docusate Sodium) 100 Mg Capsule, 100 MG PO BID Lactulose (Lactulose) 10 Gm/15 Ml Solution, 30 ML PO BID@0800,2000 Olanzapine (Olanzapine) 5 Mg Tablet, 5 MG PO TID Potassium Chloride (K-Tab ER) 10 Meq Tablet.er, 20 MEQ PO BID, (Reported) Pseudoephedrine HCl (Sudogest) 30 Mg Tablet, 30 MG PO BID, (Reported) Salmeterol/Fluticasone (Advair 100-50 Diskus) 1 Each Blst.w.dev, 1 PUFF INH BID, (Reported) Scheduled PRN Acetaminophen (Acetaminophen) 325 Mg Tablet, 325 MG PO Q4H PRN for PAIN / FEVER, (Reported) Albuterol Sulfate (Proair Hfa) 108 Mcg/Act Aer, 2 PUFF INH Q4H PRN for wheezing, (Reported) Clonazepam (Clonazepam) 0.5 Mg Tablet, 0.5 MG PO BID PRN for ANXIETY/AGITATION Cyclobenzaprine HCl (Cyclobenzaprine HCl) 10 Mg Tablet, 10 MG PO BID PRN for MUSCLE SPASMS, (Reported) Fluticasone Propionate (Fluticasone Propionate) 16 Gm [place].susp, 2 SPRAY NARES DAILY PRN for CONGESTION, (Reported) Hydrocodone/Acetaminophen (Hydrocodone-Acetamin 7.5-325) 1 Tab Tab, 1 TAB PO Q6H PRN for PAIN, (Reported) Meclizine HCl (Meclizine HCl) 25 Mg Tablet, 25 MG PO Q8H PRN for NAUSEA OR VOMITING, (Reported) Polyethylene Glycol 3350 (Polyethylene Glycol 3350) 17 Gm Powd.pack, 17 GRAM PO DAILY PRN for CONSTIPATION, (Reported) Allergies Coded Allergies: Penicillins (Verified Allergy, Intermediate, RASH, 10/02/19) magnesium citrate (Verified Allergy, Intermediate, HIVES, 10/02/19) latex (Verified Allergy, Mild, 10/02/19) diazepam (Verified Adverse Reaction, Mild, SPINNING, 10/02/19) meperidine (Verified Adverse Reaction, Mild, DIZZINESS, 10/02/19) nitrofurantoin (Verified Adverse Reaction, Mild, GI UPSET, 10/02/19) propoxyphene (Verified Adverse Reaction, Mild, DIZZINESS, 10/02/19) Gauri Bowie MD Apr 27, 2020 17:27
--- NOTE | 2020-05-01 16:09 | MHDSPDOC ---
[facility] Discharge Summary Discharge Summary DATE OF ADMISSION: Apr 23, 2020 at 17:32 DATE OF DISCHARGE: Apr 27, 2020 at 14:55 DISCHARGE DIAGNOSES: Bipolar I Disorder, Recurrent, Manic Episode REASON FOR ADMISSION: Patient is a 64 year old Single, Retired, Domiciled woman who is admitted directly to [facility] from [facility] for bipolar symptoms. She had initially been admitted to the hospital for GI bleeding and diarrhea. Possible Diverticulosis. She had a colonoscopy last week that showed an inflamed polyp. She was seen by this provider on [facility] and was circumstantial, tangential, hyperverbal and hypomanic. She had poor insight and judgment and was threatening to staff, agitated, and reporting that the staff were assaultive. She was mildly paranoid of the staff and was fabricating stories that she was being assaulted. CONSULTANTS INVOLVED: Please see consultations reports by medical provider TREATMENT AND PROGRESS ON THE UNIT : Patient was admitted to [facility] on a 2 PC status. She was afforded the following treatment modalities: 1) individual therapy 2) group therapy 3) medication management 4) milieu therapy 5) safe environment HOSPITAL COURSE: Patient was restarted on her medications and was hypomanic over the weekend. She appeared to be mildly paranoid, refusing to sign ROIs for providers. DISCHARGE ASSESSMENT: In today's interview, patient is calm and cooperative. She was not tangential, superficial, circumstantial and was greatly improved from my last assessment of the patient. She was calm and cooperative, still mildly grandiose but was stable. MENTAL STATUS EXAMINATION ON DISCHARGE: Patient is a 64-year old female, who is slam and cooperative in the interview. Her hygiene and grooming is well-kempt, eye contact is good. No psychomotor agitation or retardation Speech is spontaneous, fluid and normal rate, tone and volume. Language skills are intact Thought processes including: linear and goal oriented Thought content: denies depression, anxiety, suicidal ideation, homicidal i deation, manic, paranoia, delusion, psychosis or a/v hallucinations Abstract reasoning, and computation: fair. Description of associations: none notes, patient denies Description of abnormal or psychotic thoughts: none noted, patient denies. Judgment: fair to good Insight: fair to good Orientation to person, place, time and situation Recent and remote memory: intact Attention span and concentration: good Language: expansive Fund of knowledge: average. Mood: euthymic Affect: congruent with mood MEDICATIONS ON DISCHARGE: See Medication Reconciliation PLAN/FOLLOWUP ARRANGEMENTS: Patient is following up with her primary care provider and refused mental health outpatient services. The amount of time spent in the coordination of care for this patient was approximately 35 minutes. Vital Signs/I&Os Vital Signs Date Time Temp Pulse Resp B/P (MAP) Pulse Ox O2 Delivery O2 Flow Rate FiO2 04/27/20 10:00 98.4 86 14 136/88 (104) 91 Room Air Laboratory Data Microbiology Microbiology 04/23/20 Blood Culture - Final, Complete NO GROWTH AFTER 5 DAYS 04/23/20 Blood Culture - Final, Complete NO GROWTH AFTER 5 DAYS Medications Scheduled Aripiprazole (Abilify) 2 Mg Tablet, 2 MG PO DAILY for antipsychotic, #7 Divalproex Sodium (Depakote) 250 Mg Tablet.dr, 250 MG PO TID for Mood Stabilizer, #21 Olanzapine (Olanzapine) 5 Mg Tablet, 5 MG PO BID for antipsychotic, #14 Salmeterol/Fluticasone (Advair 100-50 Diskus) 1 Each Blst.w.dev, 1 PUFF INH BID, (Reported) Scheduled PRN Acetaminophen (Acetaminophen) 325 Mg Tablet, 325 MG PO Q4H PRN for PAIN / FEVER, (Reported) Albuterol Sulfate (Proair Hfa) 108 Mcg/Act Aer, 2 PUFF INH Q4H PRN for wheezing, (Reported) Clonazepam (Clonazepam) 0.5 Mg Tablet, 0.5 MG PO BID PRN for ANXIETY/AGITATION, #14 Cyclobenzaprine HCl (Cyclobenzaprine HCl) 10 Mg Tablet, 10 MG PO BID PRN for MUSCLE SPASMS, (Reported) Fluticasone Propionate (Fluticasone Propionate) 16 Gm [place].susp, 2 SPRAY NARES DAILY PRN for CONGESTION, (Reported) Hydrocodone/Acetaminophen (Hydrocodone-Acetamin 7.5-325) 1 Tab Tab, 1 TAB PO Q6H PRN for PAIN, (Reported) Meclizine HCl (Meclizine HCl) 25 Mg Tablet, 25 MG PO Q8H PRN for NAUSEA OR VOMITING, (Reported) Polyethylene Glycol 3350 (Polyethylene Glycol 3350) 17 Gm Powd.pack, 17 GRAM PO DAILY PRN for CONSTIPATION, (Reported) Allergies Coded Allergies: Penicillins (Verified Allergy, Intermediate, RASH, 10/02/19) magnesium citrate (Verified Allergy, Intermediate, HIVES, 10/02/19) latex (Verified Allergy, Mild, 10/02/19) diazepam (Verified Adverse Reaction, Mild, SPINNING, 10/02/19) meperidine (Verified Adverse Reaction, Mild, DIZZINESS, 10/02/19) nitrofurantoin (Verified Adverse Reaction, Mild, GI UPSET, 10/02/19) propoxyphene (Verified Adverse Reaction, Mild, DIZZINESS, 10/02/19) JHOAN LARSON NP May 01, 2020 16:09
== END 2020-04-27 14:55 | DRG 394 ==
LOC: M ED 11:14 → M ED INP 17:32 → ENRESERV 18:02 → M MS5PR 19:47
PROVIDERS: ADMIT Family Medicine; ATTEND Internal Medicine
PROC: 0W3P8ZZ Control Bleeding in Gastrointestinal Tract, Via Natural or Artificial Opening Endoscopic (ICD-10-PCS; 2020-04-26)
PROC: 0DBL8ZX Excision of Transverse Colon, Via Natural or Artificial Opening Endoscopic, Diagnostic (ICD-10-PCS; principal; 2020-04-26 14:30)
DX: K62.6 Ulcer of anus and rectum (principal); F31.2 Bipolar disorder, current episode manic severe with psychotic features; K59.00 Constipation, unspecified; Z79.01 Long term (current) use of a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; Z86.718 Personal history of other venous thrombosis and embolism; J45.909 Unspecified asthma, uncomplicated; K21.9 Gastro-esophageal reflux disease without esophagitis; M54.5 Low back pain; R10.9 Unspecified abdominal pain; K64.8 Other hemorrhoids; K57.30 Diverticulosis of large intestine without perforation or abscess without bleeding; D12.3 Benign neoplasm of transverse colon; F41.9 Anxiety disorder, unspecified; Z79.899 Other long term (current) drug therapy; Z88.0 Allergy status to penicillin; Z91.040 Latex allergy status; Z88.8 Allergy status to other drugs, medicaments and biological substances

== ENCOUNTER 2020-04-27 12:58 | Inpatient (IN) | payer MEDICARE, MEDICAID ==
[~2020-04-27] VITALS: Ht 154.9 cm; Wt 67.6 kg
[~2020-04-27 12:58] MED LIST changes: +DOCU100C16 PO; +OLAN5TAB PO; +POLY1POW38 PO
[2020-04-27] MEDS ORDERED: MAALOX 30 ML SUSP *UDC PO PRN (13:45)
[2020-04-27] MEDS ORDERED: MOM 30ML SUSPENSION UDC PO PRN (13:45)
[2020-04-27] MEDS ORDERED: MECLIZINE 25 MG TABLET PO PRN (15:30)
[2020-04-27] MEDS ORDERED: ALBUTEROL 90 MCG/ACT 8GM HFA INHALER INH PRN (15:30)
[2020-04-27] MEDS ORDERED: ACETAMINOPHEN 325 MG TAB PO PRN (15:30)
[2020-04-27] MEDS ORDERED: FLUTICASONE PROP 0.05% NASAL SPRAY 16 GM (FLONASE) NARES PRN (15:30)
[2020-04-27] MEDS: ARIPiprazole 2 MG TAB PO SCH (15:51)
[2020-04-27] MEDS: DIVALPROEX 250 MG TAB PO SCH ×2 (15:51→20:35)
[2020-04-27] MEDS: DOCUSATE SODIUM 100 MG CAP PO SCH (20:53)
[2020-04-27] MEDS: OLANZapine ORAL DISINTEGRATING TAB 5MG PO PRN (21:27)
[2020-04-28 06:33] VITALS: BP 150/80
[2020-04-28] MEDS: DOCUSATE SODIUM 100 MG CAP PO SCH ×2 (09:00→20:39)
[2020-04-28] MEDS: ARIPiprazole 2 MG TAB PO SCH (09:06)
[2020-04-28] MEDS: DIVALPROEX 250 MG TAB PO SCH ×3 (09:07→20:39)
[2020-04-28] MEDS: CYCLOBENZAPRINE 10MG TABLET PO PRN (09:07)
[2020-04-28] MEDS: clonazePAM 0.5 MG TAB PO PRN (09:07)
--- NOTE | 2020-04-28 12:58 | HPEPDOC ---
[facility] Medical History & Physical Date of Admission Apr 27, 2020 Date of Service: Apr 28, 2020 Attending Physician: Gauri Bowie MD History and Physical MEDICINE CONSULT H&P HISTORY OF PRESENT ILLNESS: Patient is a 64 yo F with a history of bipolar disorder, DVTs (on eliquis), GI bleeding, anemia, asthma with recent hospitalization on 04/23/20-04/27/20 for rectal bleeding. During her hospitalization AC was stopped on admission. Patient's required no transfusions this hospital stay but she did have several bloody bowel movements seen. She was seen by GI and taken for colonoscopy on 04/27/20. A single (solitary) ulcer in the mid rectum, likely related to past fecal impaction was seen and biopsied. Other findings include: 1. moderate Internal hemorrhoids, 2. one 5 mm polyp at the splenic flexure, removed with a cold snare. Resected and retrieved. Clip was placed. 3. mild diverticulosis in the entire examined colon. It was recommended to use Lactulose at 1 tbsp PO BID indefinitely, repeat colonoscopy in 5 years for surveillance, return to referring physician as previously scheduled and the patient did not need routine office follow up with GI. Dr. Tipton (hematology/onc) had seen patient due to hx of recurrent DVt on xarelto. She recommended staying off AC for 2 weeks and reassessing possibility then to restart due to high risk of having recurrent DVT or PE. Dr. Villalpando, psychiatry, was consulted that stay due to bipolar I disorder, manic episode. Zyprexa was increased to 5 mgs PO TID, klonopin to 0.5 mgs PO BID and she had a 1:1 during her hospital stay. On 04/27/20, patient had not had bloody bowel movement in 48 hrs. She was reassessed by psychiatry and after discharge from inpatient, was involuntarily admitted to inpatient mental health unit for bipolar disorder, sofia. At the time of discharge, patient was hemodynamically stable. Patient is still having pressured speech, manic state. She is also somewhat paranoid that the sitting is trying to "kill her" and "doesn't want her to do anything". She is demanding a new sitter. She is complaining about the state of her bedroom and bathroom. She denies HI/SI, VH or AH, chest pain, n/v/d or any more rectal bleeding since her discharge from inpatient. PAST MEDICAL HISTORY: Panic attacks. Gastroesophageal reflux disease (GERD). Recurrent GI bleed Myxopapillary ependymoma. Asthma. Deep vein thromboses (DVTs). Bipolar disorder. Low back pain. Sciatica. Ankle contusion. Neck sprain. Chronic abdominal pain. PAST SURGICAL HISTORY: Laparoscopic incisional hernia repair Cholecystectomy. Total dental extraction. Previous spine surgery SOCIAL HISTORY: Patient denies smoking Patient denies etoh use Patient denies illicit drug use FAMILY HISTORY: Father - history of Alzheimer's, ALLERGIES: Please see below. PHYSICAL EXAMINATION: VS: Please see below General: NAD, sitting up at side of bed, agitated HEENT: PERRLA, EOMI, sclerae clear Neck: supple, normal ROM, no JVD Respiratory: lungs CTAB, no wheeze, no rales, no crackles CVS: RRR, normal S1, S2, no murmurs Abdo: soft, no masses, no hepatosplenomegaly, BS+, no rebound tenderness. : Deferred Extremities: no edema, pulses 2+ MSK: no joint deformities, normal ROM. Right ankle in Aircast. Neuro: no focal neuro deficits, moving all 4 extremities, CN2-12 intact. Strength 5/5 in all 4 extremities. No nystagmus. Psych: tangential, rapid speech, manic LABORATORY DATA, IMAGING STUDIES, MICROBIOLOGY: Colonoscopy: - A single (solitary) ulcer in the mid rectum, likely related to past fecal impaction Biopsied. - Moderate Internal hemorrhoids. - One 5 mm polyp at the splenic flexure, removed with a cold snare. Resected and retrieved. Clip was placed. - Mild diverticulosis in the entire examined colon. - The colon was otherwise normal. - The examined portion of the ileum was normal. ASSESSMENT: Patient is a 64 yo F with a hx of bipolar disorder, DVTs (on eliquis), asthma admitted, recent diagnosis of lower GI bleed likely 2/2 to rectal ulcer bleeding and bipolar disorder, manic episode admitted to [facility] for bipolar disorder, sofia. PLAN: #LGIB, acute likely 2/2 to rectal ulcer. Hx of GI bleed in past. Bleeding has stopped, H/H stable. No transfusion this admission. Colonoscopy above. c/w lactulose BID indefinetly. Hold off on AC for now. Reassess when to restart by PCP in 2 weeks time. #Hx of recurrent DVT on eliquis 5 mg po bid at home. Held in the setting of recent LGIB but high risk according to heme/onc. Will need to f/u in 2 weeks with PCP to assess if patient can be restarted on AC at that time. Hematology recommends holding off on IVC filter placement currently. #Bipolar disorder, manic episode. C/w current meds. Plan per psychiatry. #Hx R ankle fx. Currently wearing air cast. States she follows with Dr. Denny. #Asthma: Stable on RA. Cont home med #Chronic back pain: cyclobenzaprine prn, norco 7.5 1 tab po q6h prn #Anxiety. Per psychiatry team DISPOSITION: Will need f/u with PCP in 2 weeks to reevaluate restarting xarelto due to high risk of clot formation and other complications. Vital Signs Vital Signs Date Time Temp Pulse Resp B/P (MAP) Pulse Ox O2 Delivery O2 Flow Rate FiO2 04/28/20 06:33 98.1 84 16 150/80 (103) Room Air Laboratory Data Labs 24H Laboratory Tests 2 04/28/20 11:00: Home Medications Scheduled Apixaban (Eliquis) 5 Mg Tab, 5 MG PO BID Clonazepam (Clonazepam) 0.5 Mg Tablet, 0.5 MG PO QHS Docusate Sodium (Docusate Sodium) 100 Mg Capsule, 100 MG PO BID Lactulose (Lactulose) 10 Gm/15 Ml Solution, 30 ML PO BID@0800,2000 Olanzapine (Olanzapine) 5 Mg Tablet, 5 MG PO TID Potassium Chloride (K-Tab ER) 10 Meq Tablet.er, 20 MEQ PO BID Pseudoephedrine HCl (Sudogest) 30 Mg Tablet, 30 MG PO BID Salmeterol/Fluticasone (Advair 100-50 Diskus) 1 Each Blst.w.dev, 1 PUFF INH BID Scheduled PRN Acetaminophen (Acetaminophen) 325 Mg Tablet, 325 MG PO Q4H PRN for PAIN / FEVER Albuterol Sulfate (Proair Hfa) 108 Mcg/Act Aer, 2 PUFF INH Q4H PRN for wheezing Clonazepam (Clonazepam) 0.5 Mg Tablet, 0.5 MG PO BID PRN for ANXIETY/AGITATION Cyclobenzaprine HCl (Cyclobenzaprine HCl) 10 Mg Tablet, 10 MG PO BID PRN for MUSCLE SPASMS Fluticasone Propionate (Fluticasone Propionate) 16 Gm [place].susp, 2 SPRAY NARES DAILY PRN for CONGESTION Hydrocodone/Acetaminophen (Hydrocodone-Acetamin 7.5-325) 1 Tab Tab, 1 TAB PO Q6H PRN for PAIN Meclizine HCl (Meclizine HCl) 25 Mg Tablet, 25 MG PO Q8H PRN for NAUSEA OR VOMITING Polyethylene Glycol 3350 (Polyethylene Glycol 3350) 17 Gm Powd.pack, 17 GRAM PO DAILY PRN for CONSTIPATION Allergies Coded Allergies: Penicillins (Verified Allergy, Intermediate, RASH, 10/02/19) magnesium citrate (Verified Allergy, Intermediate, HIVES, 10/02/19) latex (Verified Allergy, Mild, 10/02/19) diazepam (Verified Adverse Reaction, Mild, SPINNING, 10/02/19) meperidine (Verified Adverse Reaction, Mild, DIZZINESS, 10/02/19) nitrofurantoin (Verified Adverse Reaction, Mild, GI UPSET, 10/02/19) propoxyphene (Verified Adverse Reaction, Mild, DIZZINESS, 10/02/19) A-FIB/CHADSVASC A-FIB History Current/History of A-Fib/PAF?: No Current PO Anticoag Therapy: No Age/Risk Factor Scoring CHADSVASC: CHADSVASC Response (Comments) Value Age Risk Factor Age < 65 years old 0 Gender Risk Factor Female 1 Hx of CHF No 0 Hx of HTN No 0 Hx of Stroke/TIA/or VTE No 0 Hx of Diabetes No 0 Hx of Vascular Disease No 0 Total 1 Treatment Treatment ordered: NONE Reason Anticoagulant not given: Current bleeding Gauri Bowie MD Apr 28, 2020 12:58
[2020-04-28 18:02] VITALS: BP 142/76
[2020-04-29 06:45] VITALS: BP 154/99
[2020-04-29] MEDS: DOCUSATE SODIUM 100 MG CAP PO SCH (09:00)
[2020-04-29] MEDS: ARIPiprazole 2 MG TAB PO SCH (09:13)
[2020-04-29] MEDS: DIVALPROEX 250 MG TAB PO SCH ×3 (09:13→21:05)
[2020-04-29] MEDS: LOPERAMIDE 2 MG CAPLET PO PRN (16:59)
[2020-04-29 18:09] VITALS: BP 136/74
[2020-04-29] MEDS: clonazePAM 0.5 MG TAB PO PRN (21:04)
[2020-04-29] MEDS: CYCLOBENZAPRINE 10MG TABLET PO PRN (21:05)
[2020-04-29] MEDS: traZODone 50 MG TAB PO PRN (21:06)
[2020-04-30 07:03] VITALS: BP 143/81
[2020-04-30] MEDS: CYCLOBENZAPRINE 10MG TABLET PO PRN (08:21)
[2020-04-30] MEDS: DIVALPROEX 250 MG TAB PO SCH ×3 (08:22→21:10)
[2020-04-30] MEDS: ARIPiprazole 2 MG TAB PO SCH (08:22)
[2020-04-30] MEDS: LOPERAMIDE 2 MG CAPLET PO PRN (09:34)
[2020-04-30] MEDS: OLANZapine ORAL DISINTEGRATING TAB 5MG PO PRN (10:04)
[2020-04-30] MEDS: clonazePAM 0.5 MG TAB PO PRN (10:04)
[2020-04-30] MEDS ORDERED: LOPERAMIDE 2 MG CAPLET PO PRN (10:45)
--- NOTE | 2020-04-30 16:11 | MHIPN ---
DATE: 04/29/2020 The patient today was focused on the fact that her only problem is her colonoscopy. No insight as to why she is in the hospital. She kept tell me that she was deaf and wanted me to speak very loudly to her. MENTAL STATUS EXAMINATION: This patient appears to be alert. She is oriented times three. Her thoughts are very disorganized. Her insight is very poor. She appears to be having delusions, although I could not elicit any today. Insight and judgment are poor. She said HER mood was fine. Her affect appeared to be hypomanic. DIAGNOSIS: Bipolar disorder, type 1, manic with psychotic symptoms. TREATMENT PLAN: We will continue to monitor this patient for ongoing manic episode and psychotic symptoms, and we will continue to titrate her medications as indicated. ILA
[2020-04-30] MEDS: ANEXSIA, NORCO 7.5MG/325MG TABLET(HYDROCODONE/APAP) PO PRN (16:45)
[2020-04-30 18:16] VITALS: BP 127/73
[2020-04-30] MEDS: traZODone 50 MG TAB PO PRN (21:11)
[2020-05-01] MEDS: ANEXSIA, NORCO 7.5MG/325MG TABLET(HYDROCODONE/APAP) PO PRN (06:16)
[2020-05-01 06:38] VITALS: BP 131/78
[2020-05-01] MEDS: DIVALPROEX 250 MG TAB PO SCH (08:46)
[2020-05-01] MEDS: ARIPiprazole 2 MG TAB PO SCH (08:46)
[2020-05-01] MEDS ORDERED: OLAN5TAB PO (10:34)
[2020-05-01] MEDS ORDERED: CLON0.5T2 PO (10:34)
[2020-05-01] MEDS ORDERED: ABIL1TAB13 PO (10:34)
[2020-05-01] MEDS ORDERED: DEPA250T32 PO (10:41)
--- NOTE | 2020-05-02 09:38 | MHIPN ---
DATE: 04/30/2020 The patient today did come to see me in the office. She, however, just focused on her colonoscopy and her medical condition and I could not get her to describe her mood and could not really assess her further. MENTAL STATUS EXAMINATION: She does appear to be alert and oriented times three. Her speech is pressured. She has poor insight. Insight and judgment is poor. She denied suicidal or homicidal ideations. I could not elicit any psychotic symptoms but I suspect that she still has significant paranoid thoughts. Concentration is poor. Memory appears to be intact. Insight and judgment is poor. DIAGNOSIS: Bipolar disorder type 1, manic with psychotic symptoms. TREATMENT PLAN: The patient remains psychotic. We will continue her current medications as indicated. ILA
--- NOTE | 2020-05-02 11:02 | MHCR ---
DATE: 04/27/2020 BRIEF REASON FOR ADMISSION: The patient is a 64-year-old single retired, domicile female with a history of bipolar disorder. The patient is admitted to inpatient mental health unit on a 2PC. She was originally on 5 [facility] with complaints of gastrointestinal bleeding. She also has a history of deep venous thromboses (DVTs), anemia, asthma. She represented to the emergency department complaining of large bloody bowel movements with clots this morning and she had described these large formed clots, dark and bright red mixed with stool. She presented as a poor historian, very concerned about getting a cast for her leg. The patient was seen by Dr. Villalpando on 04/24/2020 and reassessed by this ghost writer, Brenda Hart, Nurse Practitioner, on 04/27/2020. The patient presented with tangential and circumstantial speech at that time. She is very delusional and grandiose. States that she did not need any more assessments by any providers as she needed to return home. Due to her agitation, physical threats to her doctor, continued manic behaviors, disorganized and scattered thinking, it was clear that the patient was not safe to discharge from medical and that she may have been exhibiting an exacerbation of her bipolar disorder. SUICIDE AND HOMICIDE HISTORY: The patient reports no suicide or homicide history. It was difficult to ascertain and she is very tangential and circumstantial. HOMICIDE OR VIOLENCE HISTORY: She reports no history of homicide or violent history, but again very difficult to ascertain as she has difficulty staying on topic and is tangential. EOTH/DRUG HISTORY: The patient denies any substance abuse history. She denies smoking and denies illicit drug use, denies alcohol use. PAST PSYCHIATRIC HISTORY: The patient confirms she has a history of bipolar disorder. She states she used to see Dr. [place], but has not seen him in quite a long time and feels that she is doing fine. She is prescribed Zyprexa twice daily and Klonopin and she cannot remember any other medication. She states she has never attempted to hurt herself during this portion of the conversation and states that she is doing well and does not need to be seen by psychiatrist. HISTORY AT ADMISSIONS: She reports no history of admissions, no past substance abuse treatment admissions. MEDICAL HISTORY: As per records, history of panic attacks, gastroesophageal reflux disease, recurrent gastrointestinal bleed, myxopapillary epidermoma, asthma, deep venous thrombosis, bipolar disorder, low back pain, sciatica, ankle contusion, neck sprain, chronic abdominal pain, cholecystectomy, total dental extractions, spine surgery. FAMILY HISTORY: Mother . Father and had Alzheimers. Siblings: I have a brother, he is a billionaire, but he does not want to know anything about me. We dont talk. Children: The patient has no children, but reports that she was twice, once by Kelvin Juarez from the [employer] and she also reports that she also had a baby by an Polish farhana. I believe the patient was very grandiose during this conversation. PERSONAL AND SOCIAL HISTORY: The patient was born and raised in [place], currently resides in [place] in an apartment in the [facility] area [facility]. . She is single, once and . No children. No current employment at this time. No history of legal issues. MENTAL STATUS EXAMINATION: The patient is a 64-year-old, single, retired, domicile female. She is alert and oriented, pleasant, dressed in a hospital gown, sitting upright in a chair. Speech is rapid, pressured, normal tone and volume. Language skills are intact. Thought processes include disorganized thinking, circumstantial and tangential. Thought content: She denies depression, anxiety, suicidal and homicidal ideation. Denies paranoia, delusions, but she is positive for grandiose delusions. Abstract reasoning and computation unable to assess. The patient has disorganized thinking and she is difficult to follow. She has difficulty focusing and paying attention, description of associations, loose description of abnormal or psychotic thoughts. She denies tactile, auditory and visual hallucinations. She is not responding to internal stimuli. She is moderately grandiose. believes that her family members are high powered and very important people. Judgment is very impaired. Insight is poor. Orientation: To person, place and time. Recent and remote memory: Fair. Attention span and concentration: She is easily distracted. Language: Adequate. Fund of knowledge: Average. Mood: Mildly irritable. Affect: Congruent with her mood. DIAGNOSIS: Bipolar I Disorder, recurrent manic episode. PLAN: Continue current medications. At this time, her medications are Zyprexa 5 mg 3 x daily, also Klonopin 0.5 mg twice daily as needed for anxiety. All other medical medications are continued. The patient has a sitter. She remains manic and impulsive, has poor insight and judgment and we are looking to stabilize her and return her to her apartment in her community. ILA
--- NOTE | 2020-06-02 14:00 | MHDSPDOC ---
[facility] Discharge Summary Discharge Summary DATE OF ADMISSION: Apr 27, 2020 at 15:00 DATE OF DISCHARGE: Apr 27, 2020 at 14:55 DISCHARGE DIAGNOSES: Bipolar I Disorder, Recurrent, Manic Episode REASON FOR ADMISSION: Patient is a 64 year old Single, Retired, Domiciled woman who is admitted directly to [facility] from [facility] for bipolar sympto ms. She had initially been admitted to the hospital for GI bleeding and diarrhea. Possible Diverticulosis. She had a colonoscopy last week that showed an inflamed polyp. She was seen by this provider on Pham and was circumstantial, tangential, hyperverbal and hypomanic. She had poor insight and judgment and was threatening to staff, agitated, and reporting that the staff were assaultive. She was mildly paranoid of the staff and was fabricating stories that she was being assaulted. CONSULTANTS INVOLVED: Please see consultations reports by medical provider TREATMENT AND PROGRESS ON THE UNIT : Patient was admitted to [facility] on a 2 PC status. She was afforded the following treatment modalities: 1) individual therapy 2) group therapy 3) medication management 4) milieu therapy 5) safe environment HOSPITAL COURSE: Patient was restarted on her medications and was hypomanic over the weekend. She appeared to be mildly paranoid, refusing to sign ROIs for providers. DISCHARGE ASSESSMENT: In today's interview, patient is calm and cooperative. She was not tangential, superficial, circumstantial and was greatly improved from my last assessment of the patient. She was calm and cooperative, still mildly grandiose but was stable. MENTAL STATUS EXAMINATION ON DISCHARGE: Patient is a 64-year old female, who is slam and cooperative in the interview. Her hygiene and grooming is well-kempt, eye contact is good. No psychomotor agitation or retardation Speech is spontaneous, fluid and normal rate, tone and volume. Language skills are intact Thought processes including: linear and goal oriented Thought content: denies depression, anxiety, suicidal ideation, homicidal ideation, manic, paranoia, delusion, psychosis or a/v hallucinations Abstract reasoning, and computation: fair. Description of associations: none notes, patient denies Description of abnormal or psychotic thoughts: none noted, patient denies. Judgment: fair to good Insight: fair to good Orientation to person, place, time and situation Recent and remote memory: intact Attention span and concentration: good Language: expansive Fund of knowledge: average. Mood: euthymic Affect: congruent with mood MEDICATIONS ON DISCHARGE: See Medication Reconciliation PLAN/FOLLOWUP ARRANGEMENTS: Patient is following up with her primary care provider and refused mental health outpatient services. The amount of time spent in the coordination of care for this patient was approximately 35 minutes. Medications Scheduled Aripiprazole (Abilify) 2 Mg Tablet, 2 MG PO DAILY for antipsychotic, #7 Divalproex Sodium (Depakote) 250 Mg Tablet.dr, 250 MG PO TID for Mood Stabilizer, #21 Olanzapine (Olanzapine) 5 Mg Tablet, 5 MG PO BID for antipsychotic, #14 Salmeterol/Fluticasone (Advair 100-50 Diskus) 1 Each Blst.w.dev, 1 PUFF INH BID, (Reported) Scheduled PRN Acetaminophen (Acetaminophen) 325 Mg Tablet, 325 MG PO Q4H PRN for PAIN / FEVER, (Reported) Albuterol Sulfate (Proair Hfa) 108 Mcg/Act Aer, 2 PUFF INH Q4H PRN for wheezing, (Reported) Clonazepam (Clonazepam) 0.5 Mg Tablet, 0.5 MG PO BID PRN for ANXIETY/AGITATION, #14 Cyclobenzaprine HCl (Cyclobenzaprine HCl) 10 Mg Tablet, 10 MG PO BID PRN for MUSCLE SPASMS, (Reported) Fluticasone Propionate (Fluticasone Propionate) 16 Gm [place].susp, 2 SPRAY NARES DAILY PRN for CONGESTION, (Reported) Hydrocodone/Acetaminophen (Hydrocodone-Acetamin 7.5-325) 1 Tab Tab, 1 TAB PO Q6H PRN for PAIN, (Reported) Meclizine HCl (Meclizine HCl) 25 Mg Tablet, 25 MG PO Q8H PRN for NAUSEA OR VOMITING, (Reported) Polyethylene Glycol 3350 (Polyethylene Glycol 3350) 17 Gm Powd.pack, 17 GRAM PO DAILY PRN for CONSTIPATION, (Reported) Miscellaneous Medications Simethicone (Gas Relief) 125 Mg Tab.chew, (Reported) Allergies Coded Allergies: Penicillins (Verified Allergy, Intermediate, RASH, 10/02/19) magnesium citrate (Verified Allergy, Intermediate, HIVES, 10/02/19) latex (Verified Allergy, Mild, 10/02/19) diazepam (Verified Adverse Reaction, Mild, SPINNING, 10/02/19) meperidine (Verified Adverse Reaction, Mild, DIZZINESS, 10/02/19) nitrofurantoin (Verified Adverse Reaction, Mild, GI UPSET, 10/02/19) propoxyphene (Verified Adverse Reaction, Mild, DIZZINESS, 10/02/19) JHOAN LARSON NP Jun 02, 2020 14:00
--- NOTE | 2020-06-02 14:08 | MHHPEPDOC ---
General Date Of Admission: Apr 28, 2020 Legal Status: 9.27 Chief Complaint "HISTORY: Patient is a 64 year old Single, Retired/Disabled, Domiciled, Female who is consulted today at request of Dr. Bowie and Dr. Villalpando who evaluated patient on 04/24/20 (Please see Dr. Villalpando's Consultation on 04/24/20. To review, patient admitted to [address] [place] [address] for complaints of GI bleeding. She had a colonoscopy yesterday which showed inflammatory polyp. This patient also has a history of Bipolar Disorder. In today's visit, she reported that she is awaiting a cast for her right leg, as she had fractured it again. Reporting that she has fractured it 17 times over the course of several years. She also reports the need to return home because she has someone that is expected to be there to clean her home, states has several workers that are due today in her home. As per previous notes: "Mrs. Ramirez is a 64 yo F with a history of bipolar disorder, DVTs (on eliquis), GI bleeding, anemia, asthma, presenting to the ED c/o of large bloody BM with clots this morning. Patient describes large formed clots, dark and bright blood mixed with stool. She is a poor historian. She is very concerned about getting a hospital bed at this time. At present time she denies dizziness, lightheadedness, chest pain, blurred vision. On arrival to the ED, BP 135/96, HR 98, RR 18, SpO2 97% on RA, T 98.1. Laboratory values significant for Hgb 12.1. HCT 38.6. PLT 219. BUN 18. LA 1.3. BG 106. AST 13. ALT 24. ALP 66. Trop < 0.02. EKG showing no acute ischemic changes. CT of the abdomen and pelvis with contrast showed dense material in a diverticulum splenic flexure of the colon, which could represent radiodense material between prior study and now versus luminal contrast extravasation suggestive of active bleeding from possibly a diverticulum. Last colonoscopy was in February 2016 for persistent diarrhea/anemia. Noted 2 small polyps of the rectosigmoid colon, removed with hot snare. Otherwise, sigmoid, descending, transverse, ascending, cecum and appendiceal orifice and ileocecal valve were normal. Recommendation was for repeat colonoscopy in 3-5 years for surveillance. Pathology showed inflammatory polyp. Admitted to hospitalist service for LGIB workup, monitoring of hemoglobin." PAST PSYCHIATRIC HISTORY: The patient confirms she has a h/o bipolar disorder. She says she used to see Dr. Colorado but has not seen him in a long time because she thinks she is doing fine. she says she takes Zyprexa twice/day and Klonopin. she can't remember any other medications. She says she has never attempted suicide and says she has never had inpatient hospitalizations PAST MEDICAL HISTORY: As per previous records: "Panic attacks,Gastroesophageal reflux disease (GERD), Recurrent GI bleed, Myxopapillary ependymoma, Asthma, Deep vein thromboses (DVTs), Bipolar disorder, Low back pain, Sciatica, Ankle contusion, Neck sprain, Chronic abdominal pain. PAST SURGICAL HISTORY: Laparoscopic incisional hernia repair, Cholecystectomy, Total dental extraction,Previous spine surgery SOCIAL HISTORY: Patient denies smoking Patient denies etoh use Patient denies illicit drug use FAMILY HISTORY: Mother: According to the patient, her mother is Father: , had Alzheimer's Siblings: "I have a brother, he's a billionaire but he doesn't want to know anything about me, we don't talk" Children: None PERSONAL AND SOCIAL HISTORY: The patient was born and raised in [place]. Resides in: [place] Marital Status: D Children: None Employment: None SUBSTANCE ABUSE HISTORY: Smoking: Denies ETOH: Denies Illicit Drugs: Denies LEGAL HISTORY: . MENTAL STATUS EXAMINATION: Patient is a 64 year old female, who is alert, cooperative, pleasant, dressed in hospital gown, laying on hospital bed. Speech: Is rapid, mildly pressured but extremely Language skills are intact Thought processes including: disorganized, circumstantial and tangential Thought content: she denies depression, anxiety, suicidal/homicidal ideation, she is not observed with paranoia, auditory or visual hallucinations. She is however demonstrating manic behaviors and delusions of grandeur. Abstract reasoning, and computation: poor/impaired Description of associations: loose Description of abnormal or psychotic thoughts: no paranoia, rumination, dichotomous, psychotic thoughts but she has strong delusions of grandeur stating that she has a brother who is a billionaire and a neighbor who wants to give her money. Judgment: poor Insight: poor Orientation: Alert and oriented to person, place and time. Poor articulation as to her reason for admission. Recent and remote memory: Fair Attention span and concentration: Fair, is often not able to be redirected Language: average Fund of knowledge: Average Mood: labile Affect: flat DIAGNOSIS: 1. Bipolar I disorder, manic episode PLAN: 1. Will increase Zyprexa to 5 mgs PO TID 2. Will increase Klonopin to 0.5 mgs PO BID 3. Patient can't be transferred today to [facility] because she is having a colonoscopy on Friday 4. patient needs to continue on a 1:1, she is manic, impulsive, has poor insight and judgement 5. Will re evaluate after her medications are adjusted 6. Thanks for the consult VITAL SIGNS: See below. NEW TEST RESULTS: Please see results CURRENT MEDICATIONS: See below. MANAGEMENT PLAN: At this time, patient can be admitted to [facility] as she exhibits moderate symptoms of Bipolar I Disorder. Patient will continue on medications that were recommended by Dr. Villalpando. TIME SPENT: 35 minutes. History of Present Illness HISTORY OF THE PRESENT ILLNESS: Patient is a 64 -year-old , female, who . Past Psychiatric History Previous Psychiatric Diagnosis: . Previous Psychiatric Admissions: . Suicide Attempts: . Psychiatric Follow-up: . Psychiatric medications: . Social History Childhood: . Abuse/Trauma:. Current Living Situation: . Education: . Employment: . Social Support: . Legal: . Marital: . A-FIB/CHADSVASC A-FIB History Current/History of A-Fib/PAF?: No Initial Treatment Plan 1. Patient was admitted on a [9.39] status. 2. Complete history was obtained. 3. With patients permission, family will be contacted and database will be expanded. 4. Patients medication regimen will be reviewed and changed accordingly. 5. Patient will be provided with protected environment. 6. Patient will be treated with individual, group, and milieu therapies. 7. Patient will receive supportive psych-education. 8. Discharge planning will commence immediately. 9. Outpatient follow-up treatment will be strongly recommended. 10. The initial treatment plan will focus initially on: * Depression. * Risk for suicide. ESTIMATED LENGTH OF STAY: - DAYS. TIME SPENT COUNSELING AND COORDINATING INITIAL CARE: minutes. Medications Scheduled Aripiprazole (Abilify) 2 Mg Tablet, 2 MG PO DAILY for antipsychotic Divalproex Sodium (Depakote) 250 Mg Tablet.dr, 250 MG PO TID for Mood Stabilizer Olanzapine (Olanzapine) 5 Mg Tablet, 5 MG PO BID for antipsychotic Salmeterol/Fluticasone (Advair 100-50 Diskus) 1 Each Blst.w.dev, 1 PUFF INH BID, (Reported) Scheduled PRN Acetaminophen (Acetaminophen) 325 Mg Tablet, 325 MG PO Q4H PRN for PAIN / FEVER, (Reported) Albuterol Sulfate (Proair Hfa) 108 Mcg/Act Aer, 2 PUFF INH Q4H PRN for wheezing, (Reported) Clonazepam (Clonazepam) 0.5 Mg Tablet, 0.5 MG PO BID PRN for ANXIETY/AGITATION Cyclobenzaprine HCl (Cyclobenzaprine HCl) 10 Mg Tablet, 10 MG PO BID PRN for MUSCLE SPASMS, (Reported) Fluticasone Propionate (Fluticasone Propionate) 16 Gm [place].susp, 2 SPRAY NARES DAILY PRN for CONGESTION, (Reported) Hydrocodone/Acetaminophen (Hydrocodone-Acetamin 7.5-325) 1 Tab Tab, 1 TAB PO Q6H PRN for PAIN, (Reported) Meclizine HCl (Meclizine HCl) 25 Mg Tablet, 25 MG PO Q8H PRN for NAUSEA OR VOMITING, (Reported) Polyethylene Glycol 3350 (Polyethylene Glycol 3350) 17 Gm Powd.pack, 17 GRAM PO DAILY PRN for CONSTIPATION, (Reported) Miscellaneous Medications Simethicone (Gas Relief) 125 Mg Tab.chew, (Reported) Allergies Coded Allergies: Penicillins (Verified Allergy, Intermediate, RASH, 10/02/19) magnesium citrate (Verified Allergy, Intermediate, HIVES, 10/02/19) latex (Verified Allergy, Mild, 10/02/19) diazepam (Verified Adverse Reaction, Mild, SPINNING, 10/02/19) meperidine (Verified Adverse Reaction, Mild, DIZZINESS, 10/02/19) nitrofurantoin (Verified Adverse Reaction, Mild, GI UPSET, 10/02/19) propoxyphene (Verified Adverse Reaction, Mild, DIZZINESS, 10/02/19) JHOAN LARSON NP Jun 02, 2020 14:07
--- NOTE | 2020-06-02 14:13 | MHDSPDOC ---
[facility] Discharge Summary Discharge Summary DATE OF ADMISSION: Apr 27, 2020 at 15:00 DATE OF DISCHARGE: Apr 27, 2020 at 14:55 DISCHARGE DIAGNOSES: Bipolar I Disorder, Recurrent, Manic Episode REASON FOR ADMISSION: Patient is a 64 year old Single, Retired, Domiciled woman who is admitted directly to [facility] from [place] for bipolar symptoms. She had initially been admitted to the hospital for GI bleeding and diarrhea. Possible Diverticulosis. She had a colonoscopy last week that showed an inflamed polyp. She was seen by this provider on [facility] and was circumstantial, tangential, hyperverbal and hypomanic. She had poor insight and judgment and was threatening to staff, agitated, and reporting that the staff were assaultive. She was mildly paranoid of the staff and was fabricating stories that she was being assaulted. CONSULTANTS INVOLVED: Please see consultations reports by medical provider TREATMENT AND PROGRESS ON THE UNIT : Patient was admitted to [facility] on a 2 PC status. She was afforded the following treatment modalities: 1) individual therapy 2) group therapy 3) medication management 4) milieu therapy 5) safe environment HOSPITAL COURSE: Patient was restarted on her medications and was hypomanic over the weekend. She appeared to be mildly paranoid, refusing to sign ROIs for providers. DISCHARGE ASSESSMENT: In today's interview, patient is calm and cooperative. She was not tangential, superficial, circumstantial and was greatly improved from my last assessment of the patient. She was calm and cooperative, still mildly grandiose but was stable. MENTAL STATUS EXAMINATION ON DISCHARGE: Patient is a 64-year old female, who is slam and cooperative in the interview. Her hygiene and grooming is well-kempt, eye contact is good. No psychomotor agitation or retardation Speech is spontaneous, fluid and normal rate, tone and volume. Language skills are intact Thought processes including: linear and goal oriented Thought content: denies depression, anxiety, suicidal ideation, homicidal i deation, manic, paranoia, delusion, psychosis or a/v hallucinations Abstract reasoning, and computation: fair. Description of associations: none notes, patient denies Description of abnormal or psychotic thoughts: none noted, patient denies. Judgment: fair to good Insight: fair to good Orientation to person, place, time and situation Recent and remote memory: intact Attention span and concentration: good Language: expansive Fund of knowledge: average. Mood: euthymic Affect: congruent with mood MEDICATIONS ON DISCHARGE: See Medication Reconciliation PLAN/FOLLOWUP ARRANGEMENTS: Patient is following up with her primary care provider and refused mental health outpatient services. The amount of time spent in the coordination of care for this patient was approximately 35 minutes. Medications Scheduled Aripiprazole (Abilify) 2 Mg Tablet, 2 MG PO DAILY for antipsychotic, #7 Divalproex Sodium (Depakote) 250 Mg Tablet.dr, 250 MG PO TID for Mood Stabilizer, #21 Olanzapine (Olanzapine) 5 Mg Tablet, 5 MG PO BID for antipsychotic, #14 Salmeterol/Fluticasone (Advair 100-50 Diskus) 1 Each Blst.w.dev, 1 PUFF INH BID, (Reported) Scheduled PRN Acetaminophen (Acetaminophen) 325 Mg Tablet, 325 MG PO Q4H PRN for PAIN / FEVER, (Reported) Albuterol Sulfate (Proair Hfa) 108 Mcg/Act Aer, 2 PUFF INH Q4H PRN for wheezing, (Reported) Clonazepam (Clonazepam) 0.5 Mg Tablet, 0.5 MG PO BID PRN for ANXIETY/AGITATION, #14 Cyclobenzaprine HCl (Cyclobenzaprine HCl) 10 Mg Tablet, 10 MG PO BID PRN for MUSCLE SPASMS, (Reported) Fluticasone Propionate (Fluticasone Propionate) 16 Gm [place].susp, 2 SPRAY NARES DAILY PRN for CONGESTION, (Reported) Hydrocodone/Acetaminophen (Hydrocodone-Acetamin 7.5-325) 1 Tab Tab, 1 TAB PO Q6H PRN for PAIN, (Reported) Meclizine HCl (Meclizine HCl) 25 Mg Tablet, 25 MG PO Q8H PRN for NAUSEA OR VOMITING, (Reported) Polyethylene Glycol 3350 (Polyethylene Glycol 3350) 17 Gm Powd.pack, 17 GRAM PO DAILY PRN for CONSTIPATION, (Reported) Miscellaneous Medications Simethicone (Gas Relief) 125 Mg Tab.chew, (Reported) Allergies Coded Allergies: Penicillins (Verified Allergy, Intermediate, RASH, 10/02/19) magnesium citrate (Verified Allergy, Intermediate, HIVES, 10/02/19) latex (Verified Allergy, Mild, 10/02/19) diazepam (Verified Adverse Reaction, Mild, SPINNING, 10/02/19) meperidine (Verified Adverse Reaction, Mild, DIZZINESS, 10/02/19) nitrofurantoin (Verified Adverse Reaction, Mild, GI UPSET, 10/02/19) propoxyphene (Verified Adverse Reaction, Mild, DIZZINESS, 10/02/19) JHOAN LARSON NP Jun 02, 2020 14:13
== END 2020-05-01 13:50 | disposition home or self-care (01) | DRG 885 ==
LOC: M PSY 15:00
PROVIDERS: ADMIT Psychiatry & Neurology Psychiatry; ATTEND Psychiatry & Neurology Psychiatry
DX: F31.2 Bipolar disorder, current episode manic severe with psychotic features (principal); K62.6 Ulcer of anus and rectum; K21.9 Gastro-esophageal reflux disease without esophagitis; J45.909 Unspecified asthma, uncomplicated; Z86.718 Personal history of other venous thrombosis and embolism; K64.8 Other hemorrhoids; K57.30 Diverticulosis of large intestine without perforation or abscess without bleeding; Z79.01 Long term (current) use of a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; F41.9 Anxiety disorder, unspecified; M54.5 Low back pain; Z79.899 Other long term (current) drug therapy; Z88.0 Allergy status to penicillin; Z91.040 Latex allergy status; Z88.8 Allergy status to other drugs, medicaments and biological substances

== ENCOUNTER 2020-06-01 08:12 | Emergency (ER) | payer MEDICARE, MEDICAID ==
[~2020-06-01] VITALS: Ht 149.9 cm; Wt 73.0 kg
[~2020-06-01 08:12] MED LIST changes: +ABIL1TAB13 PO; +DEPA250T32 PO
[2020-06-01] MEDS ORDERED: [UNRECOGNIZED DRUG - OTHER] (08:29)
[2020-06-01 08:32] VITALS: BP 141/72
--- NOTE | 2020-06-01 08:49 | REP ---
INDICATION: food bolus obstruction. COMPARISON: 02/25/2020 TECHNIQUE: Three views FINDINGS: Three views show no prevertebral soft tissue swelling. Do not see an air-fluid level in the upper neck. The nasopharynx, oropharynx and hypopharynx were normal the epiglottis and its folds are intact calcified thyroid cartilage again seen. No visible mass bones show no compression deformity there is spondylosis at C5-6 with anterior osteophytes. No visible mass or radiopaque foreign body IMPRESSION: 1. No radiopaque foreign body or may visible mass. Normal appearing calcifications of the thyroid cartilage. Airway intact. Epiglottis normal in appearance. 2. No prevertebral swelling or air-fluid level in the neck. Some degenerative changes in the spine. 3. X-ray file indicates the patient had a modified barium swallow on 07/31/2007. That study indicated repeated episodes of laryngeal penetration with thin liquids representing a level of swallowing dysfunction at that time.. <Electronically signed by Arthur Serra > 06/01/20 [id number]
--- NOTE | 2020-06-05 10:22 | ED PDOC ---
Post-Departure Follow-Up dr guillen faxed formal result of st neck for fu Antonio Adorno MD Jun 05, 2020 10:21
== END 2020-06-01 09:35 | disposition home or self-care (01) ==
LOC: M ED 08:12
DX: K22.4 Dyskinesia of esophagus (principal); G43.909 Migraine, unspecified, not intractable, without status migrainosus; N31.9 Neuromuscular dysfunction of bladder, unspecified; Z86.718 Personal history of other venous thrombosis and embolism; J45.909 Unspecified asthma, uncomplicated; K21.9 Gastro-esophageal reflux disease without esophagitis; Z87.440 Personal history of urinary (tract) infections; M54.9 Dorsalgia, unspecified; F41.9 Anxiety disorder, unspecified; F31.89 Other bipolar disorder; Z79.899 Other long term (current) drug therapy; Z88.0 Allergy status to penicillin; Z88.8 Allergy status to other drugs, medicaments and biological substances; Z91.040 Latex allergy status

== ENCOUNTER 2020-07-08 06:21 | Emergency (ER) | payer MEDICARE, MEDICAID ==
[~2020-07-08] VITALS: Ht 149.9 cm; Wt 72.7 kg
[~2020-07-08 06:21] MED LIST changes: +[UNRECOGNIZED DRUG - OTHER] PO
[2020-07-08] MEDS ORDERED: CIPR250T3 PO (06:46)
[2020-07-08] MEDS ORDERED: BENA25CA4 PO (06:51)
[2020-07-08] MEDS ORDERED: OLAN5TAB PO (06:51)
[2020-07-08] MEDS ORDERED: ARIP1TAB4 PO (06:51)
[2020-07-08] MEDS ORDERED: DIVA250T67 PO (06:52)
[2020-07-08 08:29] LABS: HEMATOCRIT 38.1 % (36.0-47.0); HEMOGLOBIN 11.6 g/dl (12.0-15.5); MEAN CORPUSCULAR HEMOGLOBIN 29.1 pg (27.0-33.0); MEAN CORPUSCULAR HGB CONC 30.4 g/dl (32.0-36.5); MEAN CORPUSCULAR VOLUME 95.5 fl (80.0-96.0); PLATELET COUNT, AUTOMATED 195 10^3/uL (150-450); RED BLOOD COUNT 3.99 10^6/uL (4.00-5.40); WHITE BLOOD COUNT 3.9 10^3/uL (4.0-10.0)
[2020-07-08 08:54] LABS: ALBUMIN 3.5 GM/DL (3.2-5.2); ALT/SGPT 119 U/L (12-78); BILIRUBIN,TOTAL 0.4 MG/DL (0.2-1.0); BLOOD UREA NITROGEN 14 MG/DL (7-18); CALCIUM LEVEL 9.2 MG/DL (8.8-10.2); CARBON DIOXIDE LEVEL 30 MEQ/L (21-32); CHLORIDE LEVEL 107 MEQ/L (98-107); CREATININE FOR GFR 0.83 MG/DL (0.55-1.30); GLOMERULAR FILTRATION RATE > 60.0 (>45); GLUCOSE, FASTING 89 MG/DL (70-100); POTASSIUM SERUM 4.5 MEQ/L (3.5-5.1); SODIUM LEVEL 142 MEQ/L (136-145); TOTAL PROTEIN 7.4 GM/DL (6.4-8.2)
== END 2020-07-08 10:19 | disposition home or self-care (01) ==
LOC: M ED 06:21
DX: R94.5 Abnormal results of liver function studies (principal); T36.95XA Adverse effect of unspecified systemic antibiotic, initial encounter; K21.9 Gastro-esophageal reflux disease without esophagitis; F31.9 Bipolar disorder, unspecified; Z87.19 Personal history of other diseases of the digestive system; Z79.899 Other long term (current) drug therapy; Z88.0 Allergy status to penicillin; Z88.8 Allergy status to other drugs, medicaments and biological substances; Z91.040 Latex allergy status

== ENCOUNTER 2020-07-15 04:48 | Emergency (ER) | payer MEDICARE, MEDICAID ==
[~2020-07-15] VITALS: Ht 149.9 cm; Wt 72.7 kg
[~2020-07-15 04:48] MED LIST changes: +ARIP1TAB4 PO; +BENA25CA4 PO; +CIPR250T3 PO; +DIVA250T67 PO
[2020-07-15] MEDS ORDERED: HYDR25OIN TOP (05:40)
[2020-07-15 06:30] VITALS: BP 150/77
== END 2020-07-15 06:50 | disposition home or self-care (01) ==
LOC: M ED 04:48
DX: S40.862A Insect bite (nonvenomous) of left upper arm, initial encounter (principal); W57.XXXA Bitten or stung by nonvenomous insect and other nonvenomous arthropods, initial encounter; Y92.099 Unspecified place in other non-institutional residence as the place of occurrence of the external cause; Y93.9 Activity, unspecified; Y99.9 Unspecified external cause status; K21.9 Gastro-esophageal reflux disease without esophagitis; F31.9 Bipolar disorder, unspecified; J45.909 Unspecified asthma, uncomplicated; K92.2 Gastrointestinal hemorrhage, unspecified; Z79.899 Other long term (current) drug therapy; Z88.0 Allergy status to penicillin; Z88.8 Allergy status to other drugs, medicaments and biological substances; Z91.040 Latex allergy status

== ENCOUNTER 2020-07-22 04:15 | Emergency (ER) | payer MEDICARE, MEDICAID ==
[~2020-07-22] VITALS: Ht 149.9 cm; Wt 68.0 kg
[~2020-07-22 04:15] MED LIST changes: +HYDR25OIN TOP
[2020-07-22] MEDS ORDERED: PROM50TA4 PO (05:18)
[2020-07-22] MEDS ORDERED: MIRA3350 PO (05:25)
[2020-07-22] MEDS ORDERED: LAMI25TA PO (05:25)
[2020-07-22] MEDS ORDERED: POTA10TA16 PO (05:25)
[2020-07-22] MEDS ORDERED: IBUP200T45 PO (05:25)
[2020-07-22] MEDS ORDERED: PSEU30TA85 PO (05:25)
[2020-07-22] MEDS ORDERED: KLON0.5T PO (05:25)
[2020-07-22 06:15] VITALS: BP 120/63
[2020-07-22] MEDS ORDERED: PYRI1TAB5 PO (06:18)
[2020-07-22] MEDS ORDERED: PHENAZOPYRIDINE 100 MG TAB PO ONE (06:30)
[2020-07-22] MEDS ORDERED: ELIQ5TAB PO (06:38)
== END 2020-07-22 06:50 | disposition home or self-care (01) ==
LOC: M ED 04:15
DX: R30.0 Dysuria (principal); N31.9 Neuromuscular dysfunction of bladder, unspecified; Z79.01 Long term (current) use of a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; Z79.899 Other long term (current) drug therapy; Z88.0 Allergy status to penicillin; Z88.8 Allergy status to other drugs, medicaments and biological substances; Z91.040 Latex allergy status

== ENCOUNTER 2020-08-12 06:25 | Emergency (ER) | payer MEDICARE, MEDICAID ==
[~2020-08-12] VITALS: Ht 149.9 cm; Wt 68.2 kg
[~2020-08-12 06:25] MED LIST changes: +IBUP200T45 PO; +POTA10TA16 PO; +PSEU30TA85 PO
[2020-08-12] MEDS ORDERED: BENZONATATE 100 MG CAP PO ONE (07:00)
[2020-08-12 07:35] LABS: RSV AMPLIFICATION NEGATIVE (NEGATIVE)
[2020-08-12] MEDS ORDERED: TESS100C PO (07:44)
[2020-08-12 07:56] VITALS: BP 146/69
--- NOTE | 2020-08-12 08:11 | REP ---
INDICATION: cough. COMPARISON: 10/16/2019 a two view exam TECHNIQUE: Portable FINDINGS: The technique utilized in obtaining the radiograph has magnified the cardiac silhouette and accentuated the interstitial markings. The superior mediastinal structures are midline. The cardiac silhouette is unremarkable in size, shape, and position. The diaphragmatic surfaces of the lungs are regular, and the costophrenic angles are clear. The pulmonary webb are clear. The imaged osseous structures are intact. IMPRESSION: There is no acute cardiopulmonary disease. No change from the prior exam other than technique. <Electronically signed by Kye Leary > 08/12/20 0832
[2020-08-12] MEDS ORDERED: PYRI1TAB5 PO (08:29)
[2020-08-12] MEDS ORDERED: FOSFOMYCIN TROMETHAMINE 3 GM POWDER PACKET (MONUROL) PO ONE (08:30)
== END 2020-08-12 08:45 | disposition home or self-care (01) ==
LOC: M ED 06:25
DX: J06.9 Acute upper respiratory infection, unspecified (principal); B34.9 Viral infection, unspecified; R05 Cough; N39.0 Urinary tract infection, site not specified; R30.0 Dysuria; J45.909 Unspecified asthma, uncomplicated; J44.9 Chronic obstructive pulmonary disease, unspecified; Z86.718 Personal history of other venous thrombosis and embolism; Z87.442 Personal history of urinary calculi; G89.29 Other chronic pain; M54.9 Dorsalgia, unspecified; M54.30 Sciatica, unspecified side; F31.9 Bipolar disorder, unspecified; K92.2 Gastrointestinal hemorrhage, unspecified; Z79.01 Long term (current) use of a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; Z79.899 Other long term (current) drug therapy; Z88.0 Allergy status to penicillin; Z88.8 Allergy status to other drugs, medicaments and biological substances; Z91.040 Latex allergy status

== ENCOUNTER 2020-09-08 23:34 | Emergency (ER) | payer MEDICARE, MEDICAID ==
[~2020-09-08] VITALS: Ht 149.9 cm; Wt 68.2 kg
[~2020-09-08 23:34] MED LIST changes: +LISI10TA22 PO; -LISI10TA4 PO; +TESS100C PO
[2020-09-09 00:43] LABS: BASO % 0.2 % (0.0-1.0); EOS # 0.2 10^3/uL (0.0-0.5); EOS % 3.3 % (0.0-3.0); HEMATOCRIT 38.6 % (36.0-47.0); HEMOGLOBIN 11.7 g/dl (12.0-15.5); LYMPH # 1.9 10^3/uL (1.5-5.0); LYMPH % 37.5 % (24.0-44.0); MEAN CORPUSCULAR HEMOGLOBIN 28.8 pg (27.0-33.0); MEAN CORPUSCULAR HGB CONC 30.3 g/dl (32.0-36.5); MEAN CORPUSCULAR VOLUME 95.1 fl (80.0-96.0); MONO # 0.4 10^3/uL (0.0-0.8); MONO % 7.9 % (2.0-8.0); NEUTROPHILS # 2.6 10^3/uL (1.5-8.5); NEUTROPHILS % 50.9 % (36.0-66.0); PLATELET COUNT, AUTOMATED 180 10^3/uL (150-450); RED BLOOD COUNT 4.06 10^6/uL (4.00-5.40); WHITE BLOOD COUNT 5.2 10^3/uL (4.0-10.0)
[2020-09-09 01:18] LABS: ALBUMIN 3.2 GM/DL (3.2-5.2); ALT/SGPT 16 U/L (12-78); BILIRUBIN,DIRECT < 0.1 MG/DL (0.0-0.2); BILIRUBIN,TOTAL 0.2 MG/DL (0.2-1.0); LIPASE 141 U/L (73-393); TOTAL PROTEIN 7.2 GM/DL (6.4-8.2)
--- OUTSIDE RECORDS SUMMARY | 2020-09-09 01:54 | CCD | Continuity of Care Document ---
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 NONI Villatoro Onset: 06/27/2015 Asthma without status asthmaticus NONI Villatoro Onset : 06/27/2015 Non-infective non-allergic rhinitis NONI Villatroo Ons et: 06/27/2015 Social History Type Date Description Comments Sex Unknown ETOH Use Denies alcohol use Tobacco Use Start: Unknown Patient has never smoked Allergies, Adverse Reactions, Alerts Active Allergies Reaction Severity Comments Date Penicillin 06/06/2010 Demerol 06/06/2010 Darvocet 06/06/2010 Darvon 06/06/2010 Medications Active Medications SIG Qnty Indications Ordering Provide r Date Olanzapine 5mg Tablets 1 by mouth three times a day 90tabs Daisy Rodriguez [facility] 07/12/2020 Acetaminophen 325mg Tablets Take One Tablet By Mouth Every 3 Hours as Needed Maximum Daily Dose = Six Tablets 180tabs Daisy Rodriguez, [facility] 06/06/2020 Diphenhydramine HCL 25mg Tablets Take One Tablet By Mouth Every Day (Benadryl) 30tabs Daisy lopez, [facility] 04/04/2020 Azelastine HCL (Nasal) 0.1% Soluti on [place] Two Sprays In One Nostril Every Day 30units Johana Camargo, [facility] 01/27/2020 Miralax 17GM/Scoop Powder use 17grams daily as needed for constipation in juice or water. 357gm Johana Camargo [facility] 01/04/2020 Multi Vitamin Tablets 1 by mouth every day 30tabs Johana Camargo [facility] 01/04/2020 FQ Prevail Protect Underwear Med Change as Needed Up To 8 Ti mes Per Day 234units Daisy Rodriguez, [facility] 05/25/2019 SM Gas Relief 125mg Chewtabs Chew 1 Tablet By Mouth After Each Meal And Before Bed 100units Daisy Rodriguez, [facility] 05/04/2019 Prevail Women Underwear SM-Med Change as Needed Up To 8 Times A Day 240units Johana Camargo, [facility] 12/07/2018 Ondansetron 4mg Tablets Dispers take one tablet by mouth every 6 hours as needed for nausea 45tabs EMRE Madison JR 06/30/2018 Prevail For Women Underwear/Small-Medium Misc Use as Directed. Uses 8 A Day DX:R15.9 240units Daisy Rodriguez, [facility] 06/17/2018 Sudogest 30mg Tablets Take One Tablet By Mouth Twice A Day 60tabs Daisy Rodriguez, [facility] 8 Cyclobenzaprine HCL 10mg Tablets take one tablet by mouth twice a day as needed 60tabs Daisy nunez, [facility] 08/28/2017 FQ Underpads 23X36 Apply To Bed as Needed Up To 10 Times Per Day 30 0units Johana Camargo [facility] 10/21/2016 Clonazepam 0.5mg Tablets Take One Tablet By Mouth Twice A Day Maximum Daily Dose = Two Tablets 60tabs Daisy Rodriguez, [facility] 10/01/2016 Sea Soft Nasal Mist 0.65% Solution Use Three Times A Day And as Needed as Directed 88units Susan Rodriguez, [facility] 10/01/2016 Diphenoxylate-Atropine 2.5-0.025mg Tablets take one tablet by mouth every day as ne eded for diarrhea maximum daily dose = 1 30tabs Daisy Rodriguez, [facility] 2016 Meclizine HCL 25mg Tablets Take One Tablet By Mouth Every 8 Hours as Needed For Dizziness 90tabs A00.0 Daisy Rodriguez, NONI 06/05/2016 Loperamide HCL 2mg Capsules take 1 capsule by mouth after each loose stool maximum daily dose = 5 capsules 150caps Michael Cuellar M.D. 03/28/2016 Vitamin D (Ergocalciferol) [id number] Capsules take 1 capsule by mouth every week 4caps Daisy Rodriguez, [facility] 02/11/2016 Baby Wipes Misc for chronic diarrhea dx K58.0 8Boxes Daisy Rodriguez, [facility] 01/02/2016 Underpads 34"X36" Misc apply to bed as needed up to 10 a day dx: 787.61 290units Daisy Rodriguez , [facility] 10/16/2015 Eliquis 5mg Tablets Take One Tablet By Mouth Twice A Day 180tabs Daisy Rodriguez, NONI 5 Hydrocodone-Acetaminophen 7.5-325mg Tablets Take One Tablet By Mouth Every 6 Hours a s Needed Maximum Daily Dose = Four Tablets 120tabs Daisy Rodriguez, [facility] 11/11/2013 Tums 500mg Chewtabs 2 by mouth three times a day, fruit flavored 180units Daisy Rodriguez, [facility] 10/05 Hearing Aid Batteries use as directed size 312 2Packs Daisy Rodriguez, [facility] 08/10/2012 Aripiprazole 2mg Tablets 1 by mouth every day 90tabs Daisy Rodriguez, NONI Divalproex Sodium 250mg Tablets DR twice a day 180tabs Daisy Rodriguez, [facility] History Medications Olanzapine 5mg Tablets Take 1 tab tid 90tabs Daisy Rodriguez, NONI 05/01/2020 - 2019 Medications Administered in Office Medication SIG Qnty Indications Ordering Provider Date Administration Of Flu Vaccine Inj ection Daisy Rodriguez, [facility] 06/10/2017 Administration Of Flu Vaccine Inj ection Daisy Torrescer, [facility] 05/16/2016 Administration Of Flu Vaccine Inj ection Daisy Burdick [place], [facility] 05/11/2015 Administration Of Flu Vaccine Inj ection Daisy Torrescer, [facility] 05/06/2012 Administration Of Flu Vaccine Inj ection Daisy TellezFreya Rodriguez, [facility] 05/15/2011 [facility] 05/02/2010 Administration Of Flu Vaccine Inj ection Daisy Burdick Jennifer, [facility] 04/20/2009 Administration Of Flu Vaccine Inj ectrosalie Burdick Jennifer, [facility] 05/12/2008 Administration Of Flu Vaccine Inj ection Daisy Burdick Jennifer, [facility] 05/11/2007 Administration Of Flu Vaccine Inj ection Daisy Burdick Jennifer, [facility] 07/07/2006 Administration Of Flu Vaccine Inj fei Burdick Jennifer, [facility] 05/06/2005 Administration Of Flu Vaccine Inj ection Daisy Burdick [place], [facility] 05/14/2004 Immunizations CPT Code Status Date Vaccine Lot # [id number] Given 05/01/2020 Influenza Vaccin e Quadrivalent Preser/Antibiotic Free Im Use [id number] U-Flu Given 05/10/2018 Influenza,Unspecified 04549 Given 06/10/2017 Influenza Vaccin e Quadrivalent Preser/Antibiotic Free Im Use [id number] Q2037 Given 05/16/2016 Fluvirin Virus Vaccine 76363 01 Q2037 Given 05/11/2015 Fluvirin Virus Vaccine 13428 01 Q2037 Given 07/04/2014 Fluvirin Virus Vaccine 37019 01 Q2037 Given 05/06/2012 Fluvirin Virus Vaccine Q2037 Given 05/15/2011 Fluvirin Virus Vaccine 39906 Given 07/04/2010 Pneumovax 23 19159 Given 05/02/2010 Influenza Virus Vaccine 83404 Given 04/20/2009 Influenza Virus Vaccine 96323 Given 05/12/2008 Influenza Virus Vaccine 69468 Given 05/11/2007 Influenza Virus Vaccine 85602 Given 07/07/2006 Influenza Virus Vaccine 80043 Given 05/06/2005 Influenza Virus Vaccine 64735 Given 05/14/2004 Influenza Virus Vaccine 74450 Given 05/12/2001 Tetanus Toxoid Vital Signs Date Vital Result Comment 08/31/2020 2:34pm BP Systolic 122 mmHg BP Diastolic 80 mmHg Heart Rate 102 /min Height 59 inches 4'11" Weight 157.00 lb O2 % BldC Oximetry 97 % BMI (Body Mass Index) 31.7 kg/m2 06/08/2020 2:23pm Heart Rate 94 /min Height 59 inches 4'11" Weight 156.00 lb O2 % BldC Oximetry 96 % BMI (Body Mass Index) 31.5 kg/m2 Results Test Acquired Date Facility Test Result H/L Range Note Ua W/ Reflex To Culture 08/12/2020 [facility] [address] [place] [address] [phone] Appearance, Urine RFX CLOUDY High Clear Color, Urine RFX YELLOW Normal Yellow PH,Urine RFX 7.0 units Normal 5.0-9.0 Specific [place] Ur Auto RFX 1.008 Normal 1.002-1.035 Protein, Urine Auto RFX 1+ mg/dL High Negative Glucose, Urine (Ua) Auto RFX NEGATIVE mg/dL Normal Negative Ketone, Urine Auto RFX NEGATIVE mg/dL Normal Negative Urobilinogen, Urine Auto RFX 0.2 mg/dL Normal 0.0-2.0 Bilirubin, Urine Auto RFX NEGATIVE Normal Negative Nitrite, Urine Auto RFX NEGATIVE Normal Negative Leukocyte Esterase Ur Auto RFX 3+ High Negative Blood, Urine Blood RFX 2+ High Negative WBC, Urine Auto RFX 9 /HPF High 0-3 RBC, Urine Auto RFX 9 /HPF High 0-3 Bacteria, Urine Auto RFX 2+ High Negative Squam Epithelial Cell Ur Aurfx 5 /HPF Normal 0-6 Mucus, Urine RFX SMALL Normal Negative Hyaline Cast, Urine Auto RFX 0 /LPF Normal 0-1 Amorphous Sediment RFX SMALL High Negative Reflex Urine Culture 08/12/2020 [facility] [address] [place] [address] [phone] Reflex Urine Culture FULL REPORT IN L <SEE NOTE> Norm al 1 Gats (Negative Strep Screen) 08/12/2020 [facility] [address] [place] [address] [phone] Gats Culture (Neg Strep SCR) FULL REPORT IN L <SEE N OTE> Normal 2 Influenza A/B RSV Covid Amp 08/12/2020 [facility] [address] [place] [address] [phone] Influenza A Amplification NEGATIVE Normal Negati ve 3 Influenza B Amplification NEGATIVE Normal Negative 4 RSV Amplification NEGATIVE Normal Negative 5 Sars Covid-19 Amplification NEGATIVE Normal Negative 6 Ua W/ Reflex To Culture 07/22/2020 [facility] [address] [place] [address] [phone] Appearance, Urine RFX HAZY Normal Clear Color, Urine RFX YELLOW Normal Yellow PH,Urine RFX 7.0 units Normal 5.0-9.0 Specific [place] Ur Auto RFX 1.005 Normal 1.002-1.035 Protein, Urine Auto RFX NEGATIVE mg/dL Normal Negative Glucose, Urine (Ua) Auto RFX NEGATIVE mg/dL Normal Negative Ketone, Urine Auto RFX NEGATIVE mg/dL Normal Negative Urobilinogen, Urine Auto RFX 0.2 mg/dL Normal 0.0-2.0 Bilirubin, Urine Auto RFX NEGATIVE Normal Negative Nitrite, Urine Auto RFX POSITIVE High Negative Leukocyte Esterase Ur Auto RFX 2+ High Negative Blood, Urine Blood RFX 1+ High Negative WBC, Urine Auto RFX 11 /HPF High 0-3 RBC, Urine Auto RFX 1 /HPF Normal 0-3 Bacteria, Urine Auto RFX 1+ High Negative Squam Epithelial Cell Ur Aurfx 0 /HPF Normal 0-6 Mucus, Urine RFX SMALL Normal Negative Hyaline Cast, Urine Auto RFX 0 /LPF Normal 0-1 Reflex Urine Culture 07/22/2020 [facility] enter [address] [place] [address] [phone] Reflex Urine Culture FULL REPORT IN L <SEE NOTE> Norm al 7 Urinalysis 07/01/2020 [facility] [address] [place] [address] [phone] Urinalysis (SEE NOTE) 8, 9 Source R Color yellow Normal: Yellow Clarity clear Normal: Clear Spec [place] 1.010 1.001 - 1.030 pH 7 5 - 9 Glucose NORM Normal: Negative Bilirubin NEG Normal: Negative Ketone NEG Normal: Negative Protein NEG Normal: Negative Nitrite POS Normal: Negative Blood 150 Abnormal Normal: Negative Leuk Est 500 Abnormal Normal: Negative Urobilinogen NOR less than 1.0 mg/dL Microscopic See Below WBC 5 - 7 Abnormal Normal: None Seen RBC 7 - 10 Abnormal Normal: None Seen Epithelial MODERATE Abnormal Normal: None Seen Bacteria 3+ LARGE Abnormal Normal: None Seen Culture Urine 07/01/2020 [facility] [address], [place] [id number] [phone] Culture Urine (SEE NOTE) 10 Complete Blood Count 06/08/2020 [facility] Truck Supervisor: [place] [address] [phone] WBC 5.4 x10*3/UL 4.1 - 10.9 RBC 4.16 x10*6/UL Low 4.20 - 6.30 Hemoglobin 12.5 g/dL 12.0 - 18.0 Hematocrit 37.8 % 37.0 - 51.0 MCV 91.0 fL 80.0 - 97.0 MCH 30.1 pg 26.0 - 32.0 MCHC 33.0 g/dL 31.0 - 38.0 RDW 14.4 % High 11.6 - 13.7 PLT 219 x10*3/UL 140 - 440 MPV 6.9 FL Low 7.8 - 11.0 Lymph % 27.9 % 10.0 - 58.5 Mid % 6.5 % 1.7 - 9.3 Neut % 65.6 % 37.0 - 92.0 Lymph # 1.5 x10*3/UL 0.6 - 4.1 Mid # 0.4 x10*3/UL 0.1 - 0.6 Neut # 3.5 x10*3/UL 2.0 - 7.8 Complete Blood Count 05/04/2020 [facility] Truck Supervisor: [place] [address] [phone] WBC 5.8 x10*3/UL 4.1 - 10.9 RBC 4.06 x10*6/UL Low 4.20 - 6.30 Hemoglobin 12.1 g/dL 12.0 - 18.0 Hematocrit 37.2 % 37.0 - 51.0 MCV 91.6 fL 80.0 - 97.0 MCH 29.8 pg 26.0 - 32.0 MCHC 32.6 g/dL 31.0 - 38.0 RDW 14.4 % High 11.6 - 13.7 PLT 240 x10*3/UL 140 - 440 MPV 7.1 FL Low 7.8 - 11.0 Lymph % 26.4 % 10.0 - 58.5 Mid % 7.1 % 1.7 - 9.3 Neut % 66.5 % 37.0 - 92.0 Lymph # 1.5 x10*3/UL 0.6 - 4.1 Mid # 0.5 x10*3/UL 0.1 - 0.6 Neut # 3.8 x10*3/UL 2.0 - 7.8 Comprehensive Chem Profile 05/04/2020 [facility] Truck Supervisor: [place] [address] [phone] Glucose 86 mg/dL 74 - 99 11 BUN 14 mg/dL 7 - 18 Creatinine 1.0 mg/dL 0.6 - 1.3 Sodium 144 mEq/L 136 - 145 Potassium 4.0 mEq/L 3.5 - 5.1 Chloride 105 mEq/L 98 - 107 Carbon Dioxide 36 mEq/L High 21 - 32 Calcium 9.9 mg/dL 8.5 - 10.1 Alk. Phosphatase 55 mg/dL 46 - 116 Total Bilirubin 0.2 mg/dL 0.2 - 1.0 Ast (Sgot) 23 U/L 15 - 37 Alt (SGPT) 26 U/L 12 - 78 Albumin 3.7 g/dL 3.4 - 5.0 Total Protein 7.7 g/dL 6.4 - 8.2 A/G Ratio 0.93 CALC Low 1.00 - 1.90 GFR 56 mL/min Low >60 GFR >= 60 mL/min >60 12 Lipid Profile 05/04/2020 [facility] Truck Supervisor: [place] [address] [phone] Cholesterol 180 mg/dL 131 - 200 Triglycerides 186 mg/dL High 30 - 150 HDL Cholesterol 55 mg/dL 35 - 60 LDL (Calculated) 88 CALC 50 - 159 Laboratory test finding 04/23/2020 [facility] [address] [place] [address] [phone] Lactic Acid Sepsis Protocol 1.3 mmol/L Normal 0.4- 2.0 13 Ua W/ Reflex To Culture 04/01/2020 [facility] [address], [place] [id number] [phone] Appearance, Urine RFX CLOUDY High Clear Color, Urine RFX YELLOW Normal Yellow PH,Urine RFX 8.0 units Normal 5.0-9.0 Specific [place] Ur Auto RFX 1.006 Normal 1.002-1.035 Protein, Urine Auto RFX NEGATIVE mg/dL Normal Negative Glucose, Urine (Ua) Auto RFX NEGATIVE mg/dL Normal Negative Ketone, Urine Auto RFX NEGATIVE mg/dL Normal Negative Urobilinogen, Urine Auto RFX 0.2 mg/dL Normal 0.0-2.0 Bilirubin, Urine Auto RFX NEGATIVE Normal Negative Nitrite, Urine Auto RFX NEGATIVE Normal Negative Leukocyte Esterase Ur Auto RFX NEGATIVE Normal Negative Blood, Urine Blood RFX NEGATIVE Normal Negative WBC, Urine Auto RFX 1 /HPF Normal 0-3 RBC, Urine Auto RFX 2 /HPF Normal 0-3 Bacteria, Urine Auto RFX NEGATIVE Normal Negative Squam Epithelial Cell Ur Aurfx 1 /HPF Normal 0-6 Hyaline Cast, Urine Auto RFX 0 /LPF Normal 0-1 Amorphous Sediment RFX LARGE High Negative Sedimentation Rate 03/18/2020 [facility] [address] [place] [address] [phone] Sed Rate 46 mm/hr High 0 - 30 Sed Rate Reenter 46 Laboratory test finding 03/18/2020 [facility] [address] [place] [address] [phone] Uric Acid 6.4 mg/dL 2.5 - 8.5 CRP (High Sensitivity) 6.67 mg/L High 1.00 - 3.00 14 1 FULL REPORT IN LAB NOTES (eC W and [facility]). ORGANISM 1: ESCHERICHIA COLI COLONY COUNT >100,000 ORGANISM 1: ESCHERICHIA COLI ESCHERICHIA COLI: REACTION TRIMETHOPRIM/SULFAMETHOXAZOLE IV 160mg TMP & 800mg SMXq6h <=20 S TRIMETHOPRIM/SULFAMETHOXAZOLE PO Bactrim DS Bid <=20 S AMPICILLIN IV 500mg q6h >=32 R AMPICILLIN PO 500mg q6h fasting >=32 R GENTAMICIN IV 80mg q8h <=1 S NITROFURANTOIN PO 100mg BID <=16 S CEFAZOLIN IV 1gm q8h <=4 S LEVOFLOXACIN IV 500mg qd >=8 R LEVOFLOXACIN PO 250mg qd >=8 R LEVOFLOXACIN PO 500mg qd >=8 R TOBRAMYCIN IV 80mg q8h <=1 S CEFTRIAXONE IV 1gm q24h <=1 S CEFTAZIDIME IV 1gm q8h <=1 S AMPICILLIN/SULBACTAM IV 1.5g q6h >=32 R PIPERACILLIN/TAZOBACTAM IV 2.25 gm q6h <=4 S AZTREONAM IV 1gm q8h <=1 S ERTAPENEM IV 1gm qd <=0.5 S MEROPENEM IV 1 gm q8h <=0.25 S MEROPENEM IV 500 mg q8h <=0.25 S TIGECYCLINE IV 50mg q12h <=0.5 S CEFEPIME IV 1 gm q12h <=1 S CEFEPIME IV 2 gm q12h <=1 S EXTD BRD SPCTRM BETA LACTAMASE IV NEGATIVE FOR ESBL 2 FULL REPORT IN LAB NOTES (eC W and [facility]). NEGATIVE FOR STREP PYOGENES (GROUP A) 3 Negative results do not prec lude influenza or RSV virus infection and should not be used as the sole basis for treatment or other patient management decisions. 4 Negative results do not prec lude influenza or RSV virus infection and should not be used as the sole basis for treatment or other patient management decisions. 5 Negative results do not prec lude influenza or RSV virus infection and should not be used as the sole basis for treatment or other patient management decisions. 6 A false negative result may occur if a specimen is improperly collected, transported or handled. False negative results may also occur if inadequate numbers of organisms are present in the specimen. As with any molecular test, mutations within the target regions of Xpert Xpress SARS-CoV-2 could affect primer and/or probe binding resulting in failure to detect the presence of virus. This test cannot rule out diseases caused by other bacterial or viral pathogens. DISCLAIMER: Testing was performed using the [employer] SARS-CoV-2 test. This test was developed and its performance characteristics determined by [employer]. This test has not been FDA cleared or approved. This test has been authorized by FDA under an Emergency Use Authorization (EUA). This test is only authorized for the duration of time the declaration that circumstances exist justifying the authorization of the emergency use of in vitro diagnostic tests for detection of SARS-CoV-2 virus and/or diagnosis of COVID-19 infection under section 564(b)(1) of the Act, 21 U.S.C. 360bbb-3(b)(1), unless the authorization is terminated or revoked sooner. 7 FULL REPORT IN LAB NOTES (eC W and [facility]). ORGANISM 1: ESCHERICHIA COLI COLONY COUNT >100,000 ORGANISM 2: ENTEROCOCCUS FAECALIS COLONY COUNT 40,000 ORGANISM 1: ESCHERICHIA COLI ORGANISM 2: ENTEROCOCCUS FAECALIS ESCHERICHIA COLI: REACTION TRIMETHOPRIM/SULFAMETHOXAZOLE IV 160mg TMP & 800mg SMXq6h <=20 S TRIMETHOPRIM/SULFAMETHOXAZOLE PO Bactrim DS Bid <=20 S AMPICILLIN IV 500mg q6h >=32 R AMPICILLIN PO 500mg q6h fasting >=32 R GENTAMICIN IV 80mg q8h <=1 S NITROFURANTOIN PO 100mg BID 64 I CEFAZOLIN IV 1gm q8h <=4 S LEVOFLOXACIN IV 500mg qd >=8 R LEVOFLOXACIN PO 250mg qd >=8 R LEVOFLOXACIN PO 500mg qd >=8 R TOBRAMYCIN IV 80mg q8h <=1 S CEFTRIAXONE IV 1gm q24h <=1 S CEFTAZIDIME IV 1gm q8h <=1 S AMPICILLIN/SULBACTAM IV 1.5g q6h 16 I PIPERACILLIN/TAZOBACTAM IV 2.25 gm q6h <=4 S AZTREONAM IV 1gm q8h <=1 S ERTAPENEM IV 1gm qd <=0.5 S MEROPENEM IV 1 gm q8h <=0.25 S MEROPENEM IV 500 mg q8h <=0.25 S TIGECYCLINE IV 50mg q12h <=0.5 S CEFEPIME IV 1 gm q12h <=1 S CEFEPIME IV 2 gm q12h <=1 S EXTD BRD SPCTRM BETA LACTAMASE IV NEGATIVE FOR ESBL ENTEROCOCCUS FAECALIS: REACTION TETRACYCLINE PO 250 mg qid >=16 R PENICILLIN G IV 1 mu q6H 2 S PENICILLIN G IV 1 mu q6h 2 S PENICILLIN G PO 250mg q6h fasting 2 S AMPICILLIN IV 500mg q6h <=2 S AMPICILLIN PO 500mg q6h fasting <=2 S ERYTHROMYCIN IV 500mg q6h >=8 R ERYTHROMYCIN PO 500mg q6h >=8 R GENTAMICIN 500 IV 80mg q8h R NITROFURANTOIN PO 100mg BID <=16 S LEVOFLOXACIN IV 500mg qd >=8 R LEVOFLOXACIN PO 250mg qd >=8 R LEVOFLOXACIN PO 500mg qd >=8 R CIPROFLOXACIN IV 400mg bid >=8 R CIPROFLOXACIN PO 500mg q12h >=8 R VANCOMYCIN IV 500mg q8h 1 S LINEZOLID (ZYVOX) IV 600MG Q12HR 1 S LINEZOLID (ZYVOX) PO 600MG Q12HR 1 S 8 SOURCE: Clean Catch 9 URINALYSIS 10 _CULTURE URINE_ ^$[id number] ^^[id number] $$[id number] ^^[id number] $$673514 $$285661 $$145897 $$679063 $$599861 $$043966 $$317479 $$254181 $$586115 $$716053 $$699610 $$487665 $$752289 $$770257 $$139041 $$432253 $$302898 $$176755 $$906298 $$510598 $$828367 $$087023 $$331155 ^^[id number] $$727363 $$001334 $$[id number] -- Continued on next page -- Patient: LETTIERE SOLE Order: [id number] Page 2 Culture: CULTURE URINE Status: Final -- Continued on next page -- Patient: LETTIERE SOLE Order: [id number] Page 2 Culture: CULTURE URINE Status: Prelim -- Continued on next page -- Patient: CANDIDO MARIO Order: [id number] Page 2 Culture: CULTURE URINE Status: Prelim $$[id number] $$[id number] REPORTED DATE/TIME: 07/05/2020 11:06 Culture: CULTURE URINE Status: Final Isolate 1 Escherichia coli Flag: A . . . . . . .1 Greater than 100,000 colony forming units per mL Cefazolin <=4 ug/mL Cefazolin with an YONG <=16 predicts susceptibility to the oral agents cefaclor, cefdinir, cefpodoxime, cefprozil, cefuroxime, cephalexin, and loracarbef when used for therapy of uncomplicated urinary tract infections due to E. coli, Klebsiella pneumoniae, and Proteus mirabilis. Previous result entered on 07/04/2020 10:19 ET Gram negative rods Previous result entered on 07/03/2020 14:54 ET Microbiological testing to rule out the presence of possible pathogens is in progress. Urine Culture,Comprehensive: P1 Escherichia coli Flag: A Patient: CANDIDO MARIO Order: [id number] Page 3 Culture: CULTURE URINE Status: Final ISOLATE 1 Escherichia coli Isolate 1 Antibiotic YONG Int Units ug/mL Amoxicillin/Clavulanic Acid S S . . . . . .20-8 Ampicillin S S . . . . . .28-1 Cefepime S S . . . . . .6644-9 Ceftriaxone S S . . . . . .141-2 Cefuroxime S S . . . . . .145-3 Ciprofloxacin S S . . . . . .185-9 Ertapenem S S . . . . . .58907-8 Gentamicin S S . . . . . .267-5 Imipenem S S . . . . . .279-0 Levofloxacin S S . . . . . .80421-2 Meropenem S S . . . . . .6652-2 Nitrofurantoin S S . . . . . .363-2 Piperacillin/Tazobactam S S . . . . . .412-7 Tetracycline S S . . . . . .496-0 Tobramycin S S . . . . . .508-2 Trimethoprim/Sulfa S S . . . . . .516-5 P1 Test performed by: [facility] #: [id number] [address] [place] [address] [address] [id number] [facility] [address] Cardiovascular Tech : Ross Jeffers MD NPI #: Truck Supervisor : 07/03/20.1551.XMT.SENT REF 07/04/20.1209.XMT.SENT REF 07/05/20.1201.XMT.SENT REF 11 100-125 mg/dL PRE-DIABET ES/FASTING >126 mg/dL DIABETES/FASTING 12 CHRONIC KIDNEY DISEASE STAGI NG PER NKF STAGE I & II GFR >= 60 NORMAL TO MILDLY DECREASED STAGE III GFR 30-59 MODERATELY DECREASED STAGE IV GFR 15-29 SEVERELY DECREASED STAGE V GFR <15 VERY LITTLE GFR LEFT ESRD GFR <15 ON PLANT OPERATOR CONTROL ROOM OPERATOR 13 Y/N query for Sepsis Lactate Rule: Y 14 CDC/S HS-CRP CUT-OFF: RELATIVE RISK: <1.0 mg/L Low 1.0 - 3.0 mg/L A verage >3.0 mg/L High Optimally, the average of HS-CRP results repeated two weeks apart should be used for risk assessment. Procedures Date Code Description Status 04/26/2020 95812952 Colonoscopy Completed 09/30/2019 [id number] Mammogram Completed 09/10/2019 [id number] Mammogram Completed 06/08/2018 [id number] Bone Mineral Density Test Comple laureen 06/08/2018 [id number] Mammogram Completed 02/26/2016 [id number] Colonoscopy Completed 10/02/2015 [id number] Mammogram Completed 08/04/2014 [id number] Mammogram Completed 07/19/2013 [id number] Mammogram Completed 11/10/2012 [id number] Colonoscopy Completed 06/10/2012 [id number] Bone Mineral Density Test Comple laureen 06/10/2012 [id number] Mammogram Completed 06/06/2011 [id number] Mammogram Completed 05/10/2010 [id number] Mammogram Completed Medical Devices Description No Information Available Encounters Type Date Location Provider Dx Diagnosis Office Visit 06/08/2020 2:45p [facility].CNONI Vázquez K62.5 Hemorrhage of anus and rectum 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 F31.9 Bipolar disorder, unspecifie d Office Visit 05/04/2020 2:45p [facility], PNONI Obando K62.5 Hemorrhage of anus and rectum 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 M48.061 Spinal stenosis, lumbar billy on without neurogenic eric E55.9 Vitamin D deficiency, unspec ified F41.1 Generalized anxiety disorder F31.9 Bipolar disorder, unspecifie d E78.00 Pure hypercholesterolemia, u nspecified Assessments Date Code Description Provider 08/31/2020 F31.9 Bipolar disorder, unspecified Na NONI Cassidy 08/31/2020 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 of NONI Villatoro 08/31/2020 Z79.01 senior care (current) use of a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 NONI Villatoro 08/31/2020 M48.061 Spinal stenosis, lumbar region w ithout neurogenic claudicati Daisy Rodriguez, ANP 08/31/2020 E55.9 Vitamin D deficiency, unspecifie d Daisy Rodriguez, ANP 08/31/2020 F41.1 Generalized anxiety disorder Kayla Rodriguez, ANP 08/31/2020 K62.5 Hemorrhage of anus and rectum Na wendy Rodriguez, ANP 06/08/2020 K62.5 Hemorrhage of anus and rectum Na wendy Rodriguez, ANP 06/08/2020 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 of Daisy Rodriguez, ANP 06/08/2020 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 Daisy Rodriguez, ANP 06/08/2020 F31.9 Bipolar disorder, unspecified Na wendy Rodriguez, ANP 05/04/2020 K62.5 Hemorrhage of anus and rectum Na wendy Rodriguez, ANP 05/04/2020 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 of Daisy Rodriguez, ANP 05/04/2020 Z79.01 senior care (current) use of a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 Daisy Rodriguez, ANP 05/04/2020 M48.061 Spinal stenosis, lumbar region w [facility] neurogenic claudicati Daisy Rodriguez, ANP 05/04/2020 E55.9 Vitamin D deficiency, unspecifie d Daisy Rodriguez, ANP 05/04/2020 F41.1 Generalized anxiety disorder Kayla Rodriguez, ANP 05/04/2020 F31.9 Bipolar disorder, unspecified Na wendy Rodriguez, ANP 05/04/2020 E78.00 Pure hypercholesterolemia, unspe cified NONI Villatoro Plan of Treatment Future Appointment(s):* 11/30/2020 2:40 pm - NONI Villatoro at [facility] 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
--- OUTSIDE RECORDS SUMMARY | 2020-09-09 01:54 | CCD | Continuity of Care Document ---
Author Author Sole Rodriguez Organization Unknown Address [address] [facility] [address] [place] [address] Phone [phone] Care Team Providers Care Ecommerce Analyst Name Role Phone Daisy Rodriguez AUTM [phone] Gurinder Gallagher MD AUTM [phone] Griffin Shepherd JR, MD AUTM [phone] Problems Active Problems Provider Date Retention of [...] Onset : 06/27/2015 Non-infective non-allergic rhinitis NONI Villatoro Ons et: 06/27/2015 Social History Type Date [...] mouth three times a day 90tabs Daisy Rodriguez, NONI 07/12/2020 Acetaminophen 325mg Tablets Take One Tablet By Mouth Every 3 Hours as Needed Maximum Daily Dose = Six Tablets 180tabs Daisy Rodriguez, NONI 06/06/2020 Diphenhydramine HCL 25mg Tablets Take One Tablet By Mouth Every Day (Benadryl) 30tabs Daisy Black icer, [facility] 04/04/2020 Azelastine HCL (Nasal) 0.1% Soluti on [place] Two Sprays In One Nostril Every Day 30units Johana Camargo [facility] 01/27/2020 Miralax 17GM/Scoop Powder use 17grams daily as needed for constipation in juice or water. 357gm Johana Camargo [facility] 01/04/2020 Multi Vitamin Tablets 1 by mouth every day 30tabs Johana Camargo [facility] 01/04/2020 Guaifenesin 100mg/5ML Liquid 10ml by mouth bid 240ml Koffi Shea MD 08/31/2019 Nitrofurantoin Monohydrate/Macrocrystals 100mg Capsules 1 by mouth twice a day for 7 days 14caps Jonelle Pina FNP 07/06/2019 FQ Prevail Protect Underwear Med Change as Needed Up To 8 Ti mes Per Day 234units Daisy Rodriguez, NONI 05/25/2019 Glucose 4gm Chewtabs Chew 2 Tablets By Mouth as Needed 40units Daisy Rodriguez, NONI 05/11/2019 SM Gas Relief 125mg Chewtabs Chew 1 Tablet By Mouth After Each Meal And Before Bed 100units Daisy Rodriguez, NONI 05/04/2019 Tessalon Perles 100mg Capsules 2 by mouth every 8 hours as needed please deliver early tomorrow morning 30caps Daisy Rodriguez, NONI 03/04/2019 Prevail Women Underwear SM-Med Change as Needed Up To 8 Times A Day 240units Johana Camargo [facility] 12/07/2018 Mapap 325mg Tablets take one tablet by mouth every 3 hours as needed maximum daily dose = 6 tablets 180tabs Jonelle Pina FNP 07/13/2018 Ondansetron 4mg Tablets Dispers take one tablet by mouth every 6 hours as needed for nausea 45tabs EMRE Madison JR 06/30/2018 Prevail For Women Underwear/Small-Medium Misc Use as Directed. Uses 8 A Day DX:R15.9 240units Daisy Rodriguez, [facility] 06/17/2018 Sudogest 30mg Tablets Take One Tablet By Mouth Twice A Day 60tabs Daisy Rodriguez, NONI 8 Pedialyte Solution ta ke as needed 3000units Michael Cuellar M.D. 08/28/2017 Cyclobenzaprine HCL 10mg Tablets take one tablet by mouth twice a day as needed 60tabs Daisy nunez, NONI 08/28/2017 Antacid Calcium Regular Strength 500mg Chewtabs Take 2 Tablets By Mouth Three Times A Day 180units Johana Camargo, [facility] 11/18/2016 FQ Underpads 23X36 Apply To Bed as Needed Up To 10 Times Per Day 30 0units Johana Camagro [facility] 10/21/2016 Shower Chair Device shower chair dx: M48.07 in white with back 1units Daisy Rodriguez, ANP 0 10/09/2016 Sea Soft Nasal Mist 0.65% Solution Use Three Times A Day And as Needed as Directed 88units Susan Rodriguez, [facility] 10/01/2016 Clonazepam 0.5mg Tablets Take One Tablet By Mouth Twice A Day Maximum Daily Dose = Two Tablets 60tabs Daisy Rodriguez, NONI 10/01/2016 Fluticasone Propionate 50mcg/Act Suspension 2 sprays each nostril daily 16gm Daisy Peralta er, [facility] 09/03/2016 Bard ALL-Purpose Urethral Catheter 16"/F unnel End Cath 16" Misc 18 fr with 10cc balloon use as directed R33.9 2units Daisy Rodriguez, NONI 07/04/2016 Diphenoxylate-Atropine 2.5-0.025mg Tablets take one tablet by mouth every day as ne eded for diarrhea maximum daily dose = 1 30tabs Daisy Rodriguez, NONI 2016 Meclizine HCL 25mg Tablets Take One Tablet By Mouth Every 8 Hours as Needed For Dizziness 90tabs A00.0 Daisy Rodriguez, NONI 06/05/2016 Underpads 30"X36" Misc Use as Directed On Bedding And Chair 5-10 A Day 290units Johana Camargo, [facility] Colestid 1gm Tablets take three tablets by mouth twice a day, may increase mdd to 9 tablets during episodes of extreme diarrhea 180tabs Daisy Rodriguez, [facility] 04/04/2016 Walker With Wheels Misc walker with seat, 4 wheels, brakes as directed dx: M62.81 M48.06 1units Chandrakant Shea MD 04/01/2016 Loperamide HCL 2mg Capsules take 1 capsule by mouth after each loose stool maximum daily dose = 5 capsules 150caps Michael Cuellar M.D. 03/28/2016 Bedside Drainage Bag Misc medline dynd 54072 4000ml bag r33.9 2units Johana Camargo, [facility] 03/08/20 16 Vitamin D (Ergocalciferol) 15963Fxwa Capsules take 1 capsule by mouth every week 4caps Daisy Rodriguez, NONI 02/11/2016 Baby Wipes Misc for chronic diarrhea dx K58.0 8Boxes Daisy Rodriguez, NONI 01/02/2016 Depend Protection Briefs Maximum Absorbe ncy/Large Misc moderate to mild absorbancy incontinent r15.9 wt 135, waist 44 8/day 240units Daisy Rodriguez, NONI 01/02/2016 Urinary Leg Bag Straps Medium/23" Misc for daytime collection of urine dx: r33.9 2Mo Johana Camargo, [facility] 01/02/2016 Night Drainage Container Misc as needed for night urine collection dx: r33.9 4units Daisy Black icer, [facility] 01/02/2016 Underpads 34"X36" Misc apply to bed as needed up to 10 a day dx: 787.61 290units Daisy Rodriguez , NONI 10/16/2015 Eliquis 5mg Tablets Take One Tablet By Mouth Twice A Day 180tabs Dasiy Rodriguez, NONI 5 Colace 100mg Capsules 1 by mouth one a day 30caps Daisy Rodriguez, NONI 12/02/2013 Hydrocodone-Acetaminophen 7.5-325mg Tablets Take One Tablet By Mouth Every 6 Hours a s Needed Maximum Daily Dose = Four Tablets 120tabs Daisy Rodriguez, ANP 11/11/2013 Tums 500mg Chewtabs 2 by mouth three times a day, fruit flavored 180units Daisy Rodriguez, ANP 10/05 Hearing Aid Batteries use as directed size 312 2Packs Daisy Rodriguez, ANP 08/10/2012 Hospital Bed Mis with rails and mattress,semi electric. indefinitly 1units Daisy Black icer, ANP 03/09/2012 Aripiprazole 2mg Tablets 1 by mouth every day 90tabs Daisy Rodriguez, ANP Divalproex Sodium 250mg Tablets DR twice a day 180tabs Daisy Rodriguez, ANP History Medications Olanzapine 5mg Tablets Take 1 tab tid 90tabs Daisy Rodriguez, [facility] 05/01/2020 - 2019 Medications Administered in Office Medication SIG Qnty Indications Ordering Provider Date Administration Of Flu Vaccine Inj ection Daisy Rodriguez, [facility] 06/10/2017 Administration Of Flu Vaccine Inj ection Daisy Rodriguez, [facility] 05/16/2016 Administration Of Flu Vaccine Inj jamiion Daisy Rodriguez, [facility] 05/11/2015 Administration Of Flu Vaccine Inj jamiion Daisy Rodriguez, [facility] 05/06/2012 Administration Of Flu Vaccine Inj ection Daisy Rodriguez, [facility] 05/15/2011 Administration Of Flu Vaccine Inj jamiion Koffi Shea MD 05/02/2010 Administration Of Flu Vaccine Inj ection Daisy Rodriguez, [facility] 04/20/2009 Administration Of Flu Vaccine Inj ection Daisy Rodriguez, [facility] 05/12/2008 Administration Of Flu Vaccine Inj ection Daisy Rodriguez, [facility] 05/11/2007 Administration Of Flu Vaccine Inj jamiion Daisy Rodriguez, [facility] 07/07/2006 Administration Of Flu Vaccine Inj jamiion Daisy Rodriguez, [facility] 05/06/2005 Administration Of Flu Vaccine Inj ection Daisy Rodriguez, [facility] 05/14/2004 Immunizations CPT Code Status Date Vaccine Lot # [id number] Given 05/01/2020 Influenza Vaccin e Quadrivalent Preser/Antibiotic Free Im Use [id number] U-Flu Given 05/10/2018 Influenza,Unspecified 71490 Given 06/10/2017 Influenza Vaccin e Quadrivalent Preser/Antibiotic Free Im Use [id number] Q2037 Given 05/16/2016 Fluvirin Virus Vaccine 62647 01 Q2037 Given 05/11/2015 Fluvirin Virus Vaccine 52053 01 Q2037 Given 07/04/2014 Fluvirin Virus Vaccine 61062 01 Q2037 Given 05/06/2012 Fluvirin Virus Vaccine Q2037 Given 05/15/2011 Fluvirin Virus Vaccine 72794 Given 07/04/2010 Pneumovax 23 07912 Given 05/02/2010 Influenza Virus Vaccine 18763 Given 04/20/2009 Influenza Virus Vaccine 83081 Given 05/12/2008 Influenza Virus Vaccine 86028 Given 05/11/2007 Influenza Virus Vaccine 40543 Given 07/07/2006 Influenza Virus Vaccine 90975 Given 05/06/2005 Influenza Virus Vaccine 14423 Given 05/14/2004 Influenza Virus Vaccine 16334 Given 05/12/2001 Tetanus Toxoid Vital Signs Date [...] Note Ua W/ Reflex To Culture 08/12/2020 [facility] [address] [place] [address] [id number] [phone] Appearance, Urine RFX CLOUDY High Clear Color, Urine RFX YELLOW Normal Yellow PH,Urine RFX 7.0 units Normal 5.0-9.0 Specific [place] Ur Auto RFX 1.008 Normal 1.002-1.035 Protein, [...] SMALL High Negative Reflex Urine Culture 08/12/2020 [facility] enter [address] [place], [place] [id number] [phone] Reflex Urine Culture FULL REPORT IN L <SEE NOTE> Norm al 1 Gats (Negative Strep Screen) 08/12/2020 [facility] [address] [place], [place] [id number] [phone] Gats Culture (Neg Strep SCR) FULL REPORT IN L <SEE N OTE> Normal 2 Influenza A/B RSV Covid Amp [facility] [address] [place], [place] [id number] [phone] Influenza A Amplification NEGATIVE Normal Negati ve 3 Influenza B Amplification NEGATIVE Normal Negative 4 RSV Amplification NEGATIVE Normal Negative 5 Sars Covid-19 Amplification NEGATIVE Normal Negative 6 Ua W/ Reflex To Culture 07/22/2020 [facility] [address] [place] [address] [phone] Appearance, Urine RFX HAZY Normal Clear Color, Urine RFX YELLOW Normal Yellow PH,Urine RFX 7.0 units Normal 5.0-9.0 Specific [place] Ur Auto RFX 1.005 Normal 1.002-1.035 Protein, [...] /LPF Normal 0-1 Reflex Urine Culture 07/22/2020 [facility] enter [address] [place] [address] [phone] Reflex Urine Culture FULL REPORT IN L <SEE NOTE> Norm al 7 Urinalysis 07/01/2020 [facility] [address] [place] [address] [phone] Urinalysis (SEE NOTE) 8, 9 Source R Color yellow Normal: Yellow Clarity clear Normal: Clear Spec [place] 1.010 1.001 - 1.030 pH 7 5 [...] Abnormal Normal: None Seen Culture Urine 07/01/2020 [facility] [address] [place] [address] [phone] Culture Urine (SEE NOTE) 10 Complete Blood Count 06/08/2020 [facility] Waste Elimination: Dr Koffi Shea [place], [place] [id number] [phone] WBC 5.4 x10*3/UL 4.1 - 10.9 RBC [...] 2.0 - 7.8 Complete Blood Count 05/04/2020 [facility] Waste Elimination: [place] [address] [phone] WBC 5.8 x10*3/UL 4.1 - 10.9 RBC [...] 2.0 - 7.8 Comprehensive Chem Profile 05/04/2020 [facility] Waste Elimination: [place] [address] [phone] Glucose 86 mg/dL 74 - 99 11 [...] 60 mL/min >60 12 Lipid Profile 05/04/2020 [facility] Waste Elimination: [place] [address] [phone] Cholesterol 180 mg/dL 131 - 200 Triglycerides 186 mg/dL High 30 - 150 HDL Cholesterol 55 mg/dL 35 - 60 LDL (Calculated) 88 CALC 50 - 159 Laboratory test finding 04/23/[address] [address] [phone] Lactic Acid Sepsis Protocol 1.3 mmol/L Normal 0.4- 2.0 13 Ua W/ Reflex To Culture 04/01/[address] [address] [phone] Appearance, Urine RFX CLOUDY High Clear Color, Urine RFX YELLOW Normal Yellow PH,Urine RFX 8.0 units Normal 5.0-9.0 Specific [place] Ur Auto RFX 1.006 Normal 1.002-1.035 Protein, [...] RFX LARGE High Negative Sedimentation Rate 03/18/2020 [facility] [address] [place], [place] [id number] [phone] Sed Rate 46 mm/hr High 0 - 30 Sed Rate Reenter 46 Laboratory test finding 03/18/2020 [facility] [address] [place] [address] [phone] Uric Acid 6.4 mg/dL 2.5 - 8.5 [...] pathogens. DISCLAIMER: Testing was performed using the [employer] SARS-CoV-2 test. This test was developed and its performance characteristics determined by [employer]. This test has not been FDA cleared [...] Clean Catch 9 URINALYSIS 10 _CULTURE URINE_ ^$[id number] ^^[id number] $$430366 ^^[id number] $$531097 $$175720 $$598778 $$613999 $$524083 $$194075 $$229033 $$059089 $$887662 $$570189 $$149839 $$642451 $$653507 $$379134 $$724806 $$903281 $$151919 $$665524 $$228667 $$962811 $$957168 $$793504 $$713415 ^^960973 $$525894 $$319897 $$692438 -- Continued on next page -- Patient: CANDIDO MARIO Order: [id number] Page 2 Culture: CULTURE URINE Status: Final -- Continued on next page -- Patient: CANDIDO MARIO Order: [id number] Page 2 Culture: CULTURE URINE Status: Prelim -- Continued on next page -- Patient: CANDIDO MARIO Order: [id number] Page 2 Culture: CULTURE URINE Status: Prelim $$[id number] $$[id number] REPORTED DATE/TIME: 07/05/2020 11:06 Culture: CULTURE URINE [...] coli Flag: A Patient: CANDIDO MARIO Order: [id number] Page 3 Culture: CULTURE URINE Status: Final [...] S S . . . . . .40237-0 Gentamicin S S . . . . . .267-5 Imipenem S S . . . . . .279-0 Levofloxacin S S . . . . . .61055-5 Meropenem S S . . . . . .6652-2 Nitrofurantoin S S . . . . . .363-2 Piperacillin/Tazobactam S S . . . . . .412-7 Tetracycline S S . . . . . .496-0 Tobramycin S S . . . . . .508-2 Trimethoprim/Sulfa S S . . . . . .516-5 P1 [facility] performed [facility]: [facility] #: [id number] [address] [place] [id number] [facility] [address] [employer] : Ross Jeffers MD NPI #: Waste Elimination : 07/03/20.1551.XMT.SENT REF 07/04/20.1209.XMT.SENT REF 07/05/20.1201.XMT.SENT REF 11 100-125 mg/dL PRE-DIABET ES/FASTING >126 mg/dL DIABETES/FASTING 12 CHRONIC KIDNEY DISEASE STAGI NG PER NKF STAGE I & II GFR >= 60 NORMAL TO MILDLY DECREASED STAGE III GFR 30-59 MODERATELY DECREASED STAGE IV GFR 15-29 SEVERELY DECREASED STAGE V GFR <15 VERY LITTLE GFR LEFT ESRD GFR <15 ON BOOKMAKER'S CLERK 13 Y/N query for Sepsis Lactate Rule: Y 14 CDC/[facility] HS-CRP CUT-OFF: RELATIVE RISK: <1.0 mg/L Low 1.0 - 3.0 mg/L A verage >3.0 mg/L High Optimally, the average of HS-CRP results repeated two weeks apart should be used for risk assessment. Procedures Date Code Description Status 04/26/2020 [id number] Colonoscopy Completed 09/30/2019 [id number] Mammogram Completed 09/10/2019 [id number] Mammogram Completed 06/08/2018 [id number] Bone Mineral Density Test Comple laureen 06/08/2018 [id number] Mammogram Completed 02/26/2016 [id number] Colonoscopy Completed 10/02/2015 [id number] Mammogram Completed 08/04/2014 [id number] Mammogram Completed 07/19/2013 [id number] Mammogram Completed 11/10/2012 [id number] Colonoscopy Completed 06/10/2012 [id number] Bone Mineral Density Test Comple [facility] 06/10/2012 [id number] Mammogram Completed 06/06/2011 [id number] Mammogram Completed 05/10/2010 [id number] Mammogram Completed Medical Devices Description No Information Available Encounters Type Date Location Provider Dx Diagnosis [facility] K62.5 Hemorrhage of anus and rectum 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 of Daisy Rodriguez, NONI 06/08/2020 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 Daisy Rodriguez, NONI 06/08/2020 F31.9 Bipolar disorder, unspecified Na wendy Rodriguez, NONI 05/04/2020 K62.5 Hemorrhage of anus and rectum Na wendy Rodriguez, NONI 05/04/2020 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
--- OUTSIDE RECORDS SUMMARY | 2020-09-09 01:54 | CCD ---
Continuity of Care Document (CCD) Created on: 09/03/2020 MichelleNazia keenra External Reference #: [id number] : [id number] Sex: Female Author Author Sole Shea MD Organization Unknown Address [address] [facility] [address] [place] [address] Phone [phone] Care Team Providers Care Executive Marketing Assistant Name Role Phone Daisy Rodriguez AUTM [phone] Gurinder Gallagher MD AUTM [phone] Griffin Shepherd JR, MD AUTM [phone] Problems Active Problems Provider Date Retention of [...] Every Day (Benadryl) 30tabs Daisy Black icer, [facility] 04/04/2020 Azelastine HCL (Nasal) 0.1% [place] on [place] Two Sprays In One Nostril Every Day 30units Johana Camargo [facility] 01/27/2020 Miralax 17GM/Scoop Powder use 17grams daily as needed for constipation in juice or water. 357gm Johana Camargo [facility] 01/04/2020 Multi Vitamin Tablets 1 by mouth every day 30tabs Johana Camargo [facility] 01/04/2020 Guaifenesin 100mg/5ML Liquid 10ml by [...] 8 Times A Day 240units Johana Camargo [facility] 12/07/2018 Mapap 325mg Tablets take one tablet by mouth every 3 hours as needed maximum daily dose = 6 tablets 180tabs Jonelle Pina FNP 07/13/2018 Ondansetron 4mg Tablets Dispers take one tablet by mouth every 6 hours as needed for nausea 45tabs EMRE Madison JR 06/30/2018 Prevail For Women Underwear/Small-Medium Misc Use as Directed. Uses 8 A Day DX:R15.9 240units Daisy Rodriguez, NONI 06/17/2018 Sudogest 30mg Tablets Take One Tablet [...] Three Times A Day 180units Johana Camargo, [facility] 11/18/2016 FQ Underpads 23X36 Apply To Bed as Needed Up To 10 Times Per Day 30 0units Johana Camargo [facility] 10/21/2016 Shower Chair Device shower chair dx: M48.07 in white with back 1units Daisy Rodriguez, ANP 0 10/09/2016 Sea Soft Nasal Mist 0.65% Solution Use Three Times A Day And as Needed as Directed 88units Susan Rodriguez, NONI 10/01/2016 Clonazepam 0.5mg Tablets Take One Tablet By Mouth Twice A Day Maximum Daily Dose = Two Tablets 60tabs Daisy Rodriguez, NONI 10/01/2016 Fluticasone Propionate 50mcg/Act Suspension 2 sprays each nostril daily 16gm Daisy Peralta er, ANP 09/03/2016 Bard ALL-Purpose Urethral Catheter 16"/F unnel [...] And Chair 5-10 A Day 290units Johana Camargo [facility] Colestid 1gm Tablets take three tablets by mouth twice a day, may increase mdd to 9 tablets during episodes of extreme diarrhea 180tabs Daisy Rodriguez, [facility] 04/04/2016 Walker With Wheels Misc walker with seat, 4 wheels, brakes as directed dx: M62.81 M48.06 1units Chandrakant Shea MD 04/01/2016 Loperamide HCL 2mg Capsules take 1 capsule by mouth after each loose stool maximum daily dose = 5 capsules 150caps Michael Cuellar M.D. 03/28/2016 Bedside Drainage Bag Misc medline dynd 04301 4000ml bag r33.9 2units Johana Camargo, [facility] 03/08/20 16 Vitamin D (Ergocalciferol) 85492Fqjp Capsules take 1 capsule by mouth every [...] collection of urine dx: r33.9 2Mo Johana Camargo [facility] 01/02/2016 Night Drainage Container Misc as needed for night urine collection dx: r33.9 4units Daisy Black icer, [facility] 01/02/2016 Underpads 34"X36" Misc apply to bed as needed up to 10 a day dx: 787.61 290units Daisy Rodriguez , NONI 10/16/2015 Eliquis 5mg Tablets Take One Tablet By Mouth Twice A Day 180tabs Daisy Rodriguez, NONI 5 Colace 100mg Capsules 1 by mouth one a day 30caps Daisy Rodriguez, [facility] 12/02/2013 Hydrocodone-Acetaminophen 7.5-325mg Tablets Take One Tablet By Mouth Every 6 Hours a s Needed Maximum Daily Dose = Four Tablets 120tabs Daisy Rodriguez, [facility] 11/11/2013 Tums 500mg Chewtabs 2 by mouth three times a day, fruit flavored 180units Daisy Rodriguez, ANP 10/05 Hearing Aid Batteries use as directed size 312 2Packs Daisy Rodriguez, [facility] 08/10/2012 Hospital Bed Mis with rails and mattress,semi electric. indefinitly 1units Daisy Black icer, [facility] 03/09/2012 Aripiprazole 2mg Tablets 1 by mouth every day 90tabs Daisy Rodriguez, ANP Divalproex Sodium 250mg Tablets DR twice a day 180tabs Daisy Rodriguez, ANP History Medications Olanzapine 5mg Tablets Take 1 tab tid 90tabs Daisy Rodriguez, [facility] 05/01/2020 - 2019 Medications Administered in Office Medication SIG Qnty Indications Ordering Provider Date Administration Of Flu Vaccine Inj ection Daisy Rodriguez, [facility] 06/10/2017 Administration Of Flu Vaccine Inj ection Daisy Rodriguez, [facility] 05/16/2016 Administration Of Flu Vaccine Inj jamiion Daisy Rodriguez, [facility] 05/11/2015 Administration Of Flu Vaccine Inj jamiion Daisy Rodriguez, [facility] 05/06/2012 Administration Of Flu Vaccine Inj ection Daisy Rodriguez, [facility] 05/15/2011 Administration Of Flu Vaccine Inj jamiion Koffi Shea MD 05/02/2010 Administration Of Flu Vaccine Inj ection Daisy Rodriguez, [facility] 04/20/2009 Administration Of Flu Vaccine Inj ection Daisy Rodriguez, [facility] 05/12/2008 Administration Of Flu Vaccine Inj ection Daisy Rodriguez, [facility] 05/11/2007 Administration Of Flu Vaccine Inj jamiion Daisy Rodriguez, [facility] 07/07/2006 Administration Of Flu Vaccine Inj ection Daisy Rodriguez, [facility] 05/06/2005 Administration Of Flu Vaccine Inj ection Daisy Rodriguez, [facility] 05/14/2004 Immunizations CPT Code Status Date Vaccine Lot # [id number] Given 05/01/2020 Influenza Vaccin e Quadrivalent Preser/Antibiotic Free Im Use [id number] U-Flu Given 05/10/2018 Influenza,Unspecified 10627 Given 06/10/2017 Influenza Vaccin e Quadrivalent Preser/Antibiotic Free Im Use [id number] Q2037 Given 05/16/2016 Fluvirin Virus Vaccine 02940 01 Q2037 Given 05/11/2015 Fluvirin Virus Vaccine 44726 01 Q2037 Given 07/04/2014 Fluvirin Virus Vaccine 67785 01 Q2037 Given 05/06/2012 Fluvirin Virus Vaccine Q2037 Given 05/15/2011 Fluvirin Virus Vaccine 48604 Given 07/04/2010 Pneumovax 23 08527 Given 05/02/2010 Influenza Virus Vaccine 61643 Given 04/20/2009 Influenza Virus Vaccine 52389 Given 05/12/2008 Influenza Virus Vaccine 34924 Given 05/11/2007 Influenza Virus Vaccine 90114 Given 07/07/2006 Influenza Virus Vaccine 02522 Given 05/06/2005 Influenza Virus Vaccine 22583 Given 05/14/2004 Influenza Virus Vaccine 92388 Given 05/12/2001 Tetanus Toxoid Vital Signs Date [...] Note Ua W/ Reflex To Culture 08/12/[address] [id number] [phone] Appearance, Urine RFX CLOUDY High Clear Color, Urine RFX YELLOW Normal Yellow PH,Urine RFX 7.0 units Normal 5.0-9.0 Specific [place] Ur Auto RFX 1.008 Normal 1.002-1.035 Protein, [...] SMALL High Negative Reflex Urine Culture 08/12/2020 [facility] [address] [place], [place] [id number] [phone] Reflex Urine Culture FULL REPORT IN L <SEE NOTE> Norm al 1 Gats (Negative Strep Screen) 08/12/2020 [facility] [address] [place] [address] [id number] [phone] Gats Culture (Neg Strep SCR) FULL REPORT IN L <SEE N OTE> Normal 2 Influenza A/B RSV Covid Amp 08/[facility] [place] [address] [place], [place] [id number] [phone] Influenza A Amplification NEGATIVE Normal Negati ve 3 Influenza B Amplification NEGATIVE Normal Negative 4 RSV Amplification NEGATIVE Normal Negative 5 Sars Covid-19 Amplification NEGATIVE Normal Negative 6 Ua W/ Reflex To Culture 07/22/2020 [facility] [address] [place] [address] [phone] Appearance, Urine RFX HAZY Normal Clear Color, Urine RFX YELLOW Normal Yellow PH,Urine RFX 7.0 units Normal 5.0-9.0 Specific [place] Ur Auto RFX 1.005 Normal 1.002-1.035 Protein, [...] /LPF Normal 0-1 Reflex Urine Culture 07/22/2020 [facility] [address] [place], [place] [id number] [phone] Reflex Urine Culture FULL REPORT IN L <SEE NOTE> Norm al 7 Urinalysis 07/01/2020 [facility] [address] [place] [address] [phone] Urinalysis (SEE NOTE) 8, 9 Source R Color yellow Normal: Yellow Clarity clear Normal: Clear Spec [place] 1.010 1.001 - 1.030 pH 7 5 [...] Abnormal Normal: None Seen Culture Urine 07/01/2020 [facility] [address] [place] [address] [phone] Culture Urine (SEE NOTE) 10 Complete Blood Count 06/08/2020 [facility] Speech Language Pathologist Assistant: Dr Koffi Shea [place], [place] [id number] [phone] WBC 5.4 x10*3/UL 4.1 - 10.9 RBC [...] 2.0 - 7.8 Complete Blood Count 05/04/2020 [facility] Speech Language Pathologist Assistant: [place] [address] [phone] WBC 5.8 x10*3/UL 4.1 - 10.9 RBC [...] 2.0 - 7.8 Comprehensive Chem Profile 05/04/2020 [facility] Speech Language Pathologist Assistant: [place] [address] [phone] Glucose 86 mg/dL 74 - 99 11 [...] 60 mL/min >60 12 Lipid Profile 05/04/2020 [facility] Speech Language Pathologist Assistant: [place] [address] [phone] Cholesterol 180 mg/dL 131 - 200 Triglycerides 186 mg/dL High 30 - 150 HDL Cholesterol 55 mg/dL 35 - 60 LDL (Calculated) 88 CALC 50 - 159 Laboratory test finding 04/23/[address] [address] [phone] Lactic Acid Sepsis Protocol 1.3 mmol/L Normal 0.4- 2.0 13 Ua W/ Reflex To Culture 04/01/[address] [address] [phone] Appearance, Urine RFX CLOUDY High Clear Color, Urine RFX YELLOW Normal Yellow PH,Urine RFX 8.0 units Normal 5.0-9.0 Specific [place] Ur Auto RFX 1.006 Normal 1.002-1.035 Protein, [...] RFX LARGE High Negative [facility] [address] [place], [place] [id number] [phone] Sed Rate 46 mm/hr High 0 - 30 Sed Rate Reenter 46 Laboratory test finding 03/18/2020 [facility] [address] [place] [address] [phone] Uric Acid 6.4 mg/dL 2.5 - 8.5 [...] pathogens. DISCLAIMER: Testing was performed using the [employer] SARS-CoV-2 test. This test was developed and its performance characteristics determined by [employer]. This test has not been FDA cleared [...] Clean Catch 9 URINALYSIS 10 _CULTURE URINE_ ^$[id number] ^^[id number] $$801341 ^^[id number] $$901377 $$457382 $$521477 $$547347 $$010246 $$146538 $$362426 $$812284 $$802080 $$405975 $$350557 $$829403 $$439123 $$457062 $$448685 $$761751 $$246990 $$209070 $$395073 $$009400 $$354117 $$055696 $$740697 ^^405294 $$235851 $$872678 $$581829 -- Continued on next page -- Patient: CANDIDO MARIO Order: [id number] Page 2 Culture: CULTURE URINE Status: Final -- Continued on next page -- Patient: CANDIDO MARIO Order: [id number] Page 2 Culture: CULTURE URINE Status: Prelim -- Continued on next page -- Patient: CANDIDO MARIO Order: [id number] Page 2 Culture: CULTURE URINE Status: Prelim $$[id number] $$[id number] REPORTED DATE/TIME: 07/05/2020 11:06 Culture: CULTURE URINE [...] coli Flag: A Patient: CANDIDO MARIO Order: [id number] Page 3 Culture: CULTURE URINE Status: Final [...] S S . . . . . .22666-3 Gentamicin S S . . . . . .267-5 Imipenem S S . . . . . .279-0 Levofloxacin S S . . . . . .49083-8 Meropenem S S . . . . . .6652-2 Nitrofurantoin S S . . . . . .363-2 Piperacillin/Tazobactam S S . . . . . .412-7 Tetracycline S S . . . . . .496-0 Tobramycin S S . . . . . .508-2 Trimethoprim/Sulfa S S . . . . . .516-5 P1 Test performed by: Rose Islas [facility] #: [id number] [address] [id number] [facility] [id number] Airplane Pilot Supervisor : Ross Jeffers MD NPI #: Speech Language Pathologist Assistant : 07/03/20.1551.XMT.SENT REF 07/04/20.1209.XMT.SENT REF 07/05/20.1201.XMT.SENT REF 11 100-125 mg/dL PRE-DIABET ES/FASTING >126 mg/dL DIABETES/FASTING 12 CHRONIC KIDNEY DISEASE STAGI NG PER NKF STAGE I & II GFR >= 60 NORMAL TO MILDLY DECREASED STAGE III GFR 30-59 MODERATELY DECREASED STAGE IV GFR 15-29 SEVERELY DECREASED STAGE V GFR <15 VERY LITTLE GFR LEFT ESRD GFR <15 ON SONAR WATCHSTANDER 13 Y/N query for Sepsis Lactate Rule: Y 14 [facility] HS-CRP CUT-OFF: RELATIVE RISK: <1.0 mg/L Low 1.0 - 3.0 mg/L A verage >3.0 mg/L High Optimally, the average of HS-CRP results repeated two weeks apart should be used for risk assessment. Procedures Date Code Description Status 04/26/2020 [id number] Colonoscopy Completed 09/30/2019 [id number] Mammogram Completed 09/10/2019 [id number] Mammogram Completed 06/08/2018 966307232 Bone Mineral Density Test Comple laureen 06/08/2018 [id number] Mammogram Completed 02/26/2016 [id number] Colonoscopy Completed 10/02/2015 [id number] Mammogram Completed 08/04/2014 94714801 Mammogram Completed 07/19/2013 [id number] Mammogram Completed 11/10/2012 [id number] Colonoscopy Completed 06/10/2012 030552200 Bone Mineral Density Test Comple [facility] 06/10/2012 [id number] Mammogram Completed 06/06/2011 95832467 Mammogram Completed 05/10/2010 56583555 Mammogram Completed Medical Devices Description No Information Available Encounters Type Date Location Provider Dx Diagnosis Office Visit 06/08/2020 2[facility]p [facility] K62.5 Hemorrhage of anus and rectum 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
--- OUTSIDE RECORDS SUMMARY | 2020-09-09 01:56 | CCD ---
Author Author [facility] Organization [facility] Address Unknown Phone Unavailable Care Team Providers Care Petroleum Sampler Name Role Phone JENNY, J Daisy ANP Unavailable Unavailable JENNY, J Daisy ANP Unavailable Unavailable JENNY, J Daisy ANP Unavailable Unavailable JENNY, J Daisy ANP Unavailable Unavailable JENNY, J Daisy ANP Unavailable Unavailable JENNY, J Daisy ANP Unavailable Unavailable JENNY, J Daisy ANP Unavailable Unavailable JENNY, J Daisy ANP Unavailable Unavailable JENNY, J Daisy ANP Unavailable Unavailable JENNY, J Daisy ANP Unavailable Unavailable JENNY, J Daisy ANP Unavailable Unavailable JENNY, J Daisy ANP Unavailable Unavailable JENNY, J Daisy ANP Unavailable Unavailable JENNY, J Daisy ANP Unavailable Unavailable JENNY, J Daisy ANP Unavailable Unavailable JENNY, J Daisy ANP Unavailable Unavailable JENNY, J Daisy ANP Unavailable Unavailable JENNY, J Daisy ANP Unavailable Unavailable JENNY, J Daisy ANP Unavailable Unavailable JENNY, J Daisy ANP Unavailable Unavailable JENNY, J Daisy ANP Unavailable Unavailable JENNY, J Daisy ANP Unavailable Unavailable JENNY, J Daisy ANP Unavailable Unavailable JENNY, J Daisy ANP Unavailable Unavailable JENNY, J Daisy ANP Unavailable Unavailable JENNY, J Daisy ANP Unavailable Unavailable JENNY, J Daisy ANP Unavailable Unavailable JENNY, J Daisy ANP Unavailable Unavailable JENNY, J Daisy ANP Unavailable Unavailable JENNY, J Daisy ANP Unavailable Unavailable JENNY, J Daisy ANP Unavailable Unavailable JENNY, J Daisy ANP Unavailable Unavailable JENNY, J Daisy ANP Unavailable Unavailable JENNY, J Daisy ANP Unavailable Unavailable JENNY, J Daisy ANP Unavailable Unavailable JENNY, J Daisy ANP Unavailable Unavailable JENNY, J Daisy ANP Unavailable Unavailable JENNY, J Daisy ANP Unavailable Unavailable JENNY, J Daisy ANP Unavailable Unavailable JENNY, J Daisy ANP Unavailable Unavailable JENNY, J Daisy ANP Unavailable Unavailable JENNY, J Daisy ANP Unavailable Unavailable JENNY, J Daisy ANP Unavailable Unavailable JENNY, J Daisy ANP Unavailable Unavailable JENNY, J Daisy ANP Unavailable Unavailable JENNY, J Daisy ANP Unavailable Unavailable JENNY, J Daisy ANP Unavailable Unavailable JENNY, J Daisy ANP Unavailable Unavailable JENNY, J Daisy ANP Unavailable Unavailable JENNY, J Daisy ANP Unavailable Unavailable JENNY, J Daisy ANP Unavailable Unavailable JENNY, J Daisy ANP Unavailable Unavailable JENNY, J Daisy ANP Unavailable Unavailable JENNY, J Daisy ANP Unavailable Unavailable JENNY, J Daisy ANP Unavailable Unavailable JENNY, J Daisy ANP Unavailable Unavailable JENNY, J Daisy ANP Unavailable Unavailable JENNY, J Daisy ANP Unavailable Unavailable JENNY, J Daisy ANP Unavailable Unavailable JENNY, J Daisy ANP Unavailable Unavailable JENNY, J Daisy ANP Unavailable Unavailable JENNY, J Daisy ANP Unavailable Unavailable JENNY, J Daisy ANP Unavailable Unavailable JENNY, J Daisy ANP Unavailable Unavailable JENNY, J Daisy ANP Unavailable Unavailable JENNY, J Daisy ANP Unavailable Unavailable Lulu, Constance LINE INSPECTOR Unavailable Unavailable Lulu, Cosntance LINE INSPECTOR Unavailable Unavailable Lulu, Constance LINE INSPECTOR Unavailable Unavailable Lulu, Constance LINE INSPECTOR Unavailable Unavailable Lulu, Constance LINE INSPECTOR Unavailable Unavailable Lulu, Constance LINE INSPECTOR Unavailable Unavailable Lulu, Constance LINE INSPECTOR Unavailable Unavailable Lulu, Constance LINE INSPECTOR Unavailable Unavailable Lulu, Constance LINE INSPECTOR Unavailable Unavailable Lulu, Constance LINE INSPECTOR Unavailable Unavailable Lulu, Constance LINE INSPECTOR Unavailable Unavailable Lulu, Constance LINE INSPECTOR Unavailable Unavailable Lulu, Constance LINE INSPECTOR Unavailable Unavailable Lulu, Constance LINE INSPECTOR Unavailable Unavailable Lulu, Constance LINE INSPECTOR Unavailable Unavailable Lulu, Constance LINE INSPECTOR Unavailable Unavailable Lulu, Constance LINE INSPECTOR Unavailable Unavailable Lulu, Constance LINE INSPECTOR Unavailable Unavailable Lulu, Constance LINE INSPECTOR Unavailable Unavailable Lulu, Constance LINE INSPECTOR Unavailable Unavailable Lulu, Constance LINE INSPECTOR Unavailable Unavailable Lulu, Constance LINE INSPECTOR Unavailable Unavailable Lulu, Constance LINE INSPECTOR Unavailable Unavailable Lulu, Constance LINE INSPECTOR Unavailable Unavailable Lulu, Constance LINE INSPECTOR Unavailable Unavailable Lulu, Constance LINE INSPECTOR Unavailable Unavailable Lulu, Constance LINE INSPECTOR Unavailable Unavailable NON, PHYSICIAN STAFF Unavailable Unavailable KIARA SHERWOOD MD Unavailable Unavailable KIARA SHERWOOD MD Unavailable Unavailable KIARA SHERWOOD MD Unavailable Unavailable KIARA SHERWOOD MD Unavailable Unavailable KIARA SHERWOOD MD Unavailable Unavailable KIARA SHERWOOD MD Unavailable Unavailable KIARA SHERWOOD MD Unavailable Unavailable KIARA SHERWOOD MD Unavailable Unavailable KIARA SHERWOOD MD Unavailable Unavailable KIARA SHERWOOD MD Unavailable Unavailable KIARA SHERWOOD MD Unavailable Unavailable KIARA SHERWOOD MD Unavailable Unavailable JENNY, J Daisy ANP Unavailable Unavailable JENNY, J Daisy ANP Unavailable Unavailable JENNY, J Daisy ANP Unavailable Unavailable JENNY, J Daisy ANP Unavailable Unavailable JENNY, J Daisy ANP Unavailable Unavailable JENNY, J Daisy ANP Unavailable Unavailable JENNY, J Daisy ANP Unavailable Unavailable JENNY, J Daisy ANP Unavailable Unavailable JENNY, J Daisy ANP Unavailable Unavailable JENNY, J Daisy ANP Unavailable Unavailable JENNY, J Daisy ANP Unavailable Unavailable JENNY, J Daisy ANP Unavailable Unavailable JENNY, J Daisy ANP Unavailable Unavailable JENNY, J Daisy ANP Unavailable Unavailable JENNY, J Daisy ANP Unavailable Unavailable JENNY, J Daisy ANP Unavailable Unavailable JENNY, J Daisy ANP Unavailable Unavailable JENNY, J Daisy ANP Unavailable Unavailable JENNY, J Daisy ANP Unavailable Unavailable JENNY, J Daisy ANP Unavailable Unavailable JENNY, J Daisy ANP Unavailable Unavailable JENNY, J Daisy ANP Unavailable Unavailable JENNY, J Daisy ANP Unavailable Unavailable JENNY, J Daisy ANP Unavailable Unavailable JENNY, J Daisy ANP Unavailable Unavailable JENNY, J Daisy ANP Unavailable Unavailable JENNY, J Daisy ANP Unavailable Unavailable JENNY, J Daisy ANP Unavailable Unavailable JENNY, J Daisy ANP Unavailable Unavailable JENNY, J Daisy ANP Unavailable Unavailable JENNY, J Daisy ANP Unavailable Unavailable JENNY, J Daisy ANP Unavailable Unavailable JENNY, J Daisy ANP Unavailable Unavailable JENNY, J Daisy ANP Unavailable Unavailable JENNY, J Daisy ANP Unavailable Unavailable JENNY, J Daisy ANP Unavailable Unavailable JENNY, J Daisy ANP Unavailable Unavailable JENNY, J Daisy ANP Unavailable Unavailable JENNY, J Daisy ANP Unavailable Unavailable JENNY, J Daisy ANP Unavailable Unavailable JENNY, J Daisy ANP Unavailable Unavailable JENNY, J Daisy ANP Unavailable Unavailable JENNY, J Daisy ANP Unavailable Unavailable JENNY, J Daisy ANP Unavailable Unavailable JENNY, J Daisy ANP Unavailable Unavailable JENNY, J Daisy ANP Unavailable Unavailable JENNY, J Daisy ANP Unavailable Unavailable JENNY, J Daisy ANP Unavailable Unavailable JENNY, J Daisy ANP Unavailable Unavailable JENNY, J Daisy ANP Unavailable Unavailable JENNY, J Daisy ANP Unavailable Unavailable JENNY, J Daisy ANP Unavailable Unavailable JENNY, J Daisy ANP Unavailable Unavailable JENNY, J Daisy ANP Unavailable Unavailable JENNY, J Daisy ANP Unavailable Unavailable JENNY, J Daisy ANP Unavailable Unavailable JENNY, J Daisy ANP Unavailable Unavailable JENNY, J Daisy ANP Unavailable Unavailable JENNY, J Daisy ANP Unavailable Unavailable JENNY, J Daisy ANP Unavailable Unavailable JENNY, J Daisy ANP Unavailable Unavailable JENNY, J Daisy ANP Unavailable Unavailable JENNY, J Daisy ANP Unavailable Unavailable JENNY, J Daisy ANP Unavailable Unavailable JENNY, J Daisy ANP Unavailable Unavailable JENNY, J Daisy ANP Unavailable Unavailable Rosalinda BOYLE MD Unavailable Unavailable Rosalinda BOYLE MD Unavailable Unavailable Rosalinda BOYLE MD Unavailable Unavailable Rosalinda BOYLE MD Unavailable Unavailable Rosalinda BOYLE MD Unavailable Unavailable Rosalinda BOYLE MD Unavailable Unavailable Rosalinda BOYLE MD Unavailable Unavailable Rosalinda BOYLE MD Unavailable Unavailable Rosalinda BOYLE MD Unavailable Unavailable JENNY, J Daisy ANP Unavailable Unavailable JENNY, J Daisy ANP Unavailable Unavailable JENNY, J Daisy ANP Unavailable Unavailable JENNY, J Daisy ANP Unavailable Unavailable JENNY, J Daisy ANP Unavailable Unavailable JENNY, J Daisy ANP Unavailable Unavailable JENNY, J Daisy ANP Unavailable Unavailable JENNY, J Daisy ANP Unavailable Unavailable JENNY, J Daisy ANP Unavailable Unavailable JENNY, J Daisy ANP Unavailable Unavailable JENNY, J Daisy ANP Unavailable Unavailable JENNY, J Daisy ANP Unavailable Unavailable JENNY, J Daisy ANP Unavailable Unavailable JENNY, J Daisy ANP Unavailable Unavailable JENNY, J Daisy ANP Unavailable Unavailable JENNY, J Daisy ANP Unavailable Unavailable JENNY, J Daisy ANP Unavailable Unavailable JENNY, J Daiys ANP Unavailable Unavailable JENNY, J Daisy ANP Unavailable Unavailable JENNY, J Daisy ANP Unavailable Unavailable JENNY, J Daisy ANP Unavailable Unavailable JENNY, J Daisy ANP Unavailable Unavailable JENNY, J Daisy ANP Unavailable Unavailable JENNY, J Daisy ANP Unavailable Unavailable JENNY, J Daisy ANP Unavailable Unavailable JENNY, J Daisy ANP Unavailable Unavailable JENNY, J Daisy ANP Unavailable Unavailable JENNY, J Daisy ANP Unavailable Unavailable JENNY, J Daisy ANP Unavailable Unavailable JENNY, J Daisy ANP Unavailable Unavailable JENNY, J Daisy ANP Unavailable Unavailable JENNY, J Daisy ANP Unavailable Unavailable JENNY, J Daisy ANP Unavailable Unavailable JENNY, J Daisy ANP Unavailable Unavailable JENNY, J Daisy ANP Unavailable Unavailable JENNY, J Daisy ANP Unavailable Unavailable JENNY, J Daisy ANP Unavailable Unavailable JENNY, J Daisy ANP Unavailable Unavailable JENNY, J Daisy ANP Unavailable Unavailable JENNY, J Daisy ANP Unavailable Unavailable JENNY, J Daisy ANP Unavailable Unavailable JENNY, J Daisy ANP Unavailable Unavailable JENNY, J Daisy ANP Unavailable Unavailable JENNY, J Daisy ANP Unavailable Unavailable JENNY, J Daisy ANP Unavailable Unavailable JENNY, J Daisy ANP Unavailable Unavailable JENNY, J Daisy ANP Unavailable Unavailable JENNY, J Daisy ANP Unavailable Unavailable JENNY, J Daisy ANP Unavailable Unavailable JENNY, J Daisy ANP Unavailable Unavailable JENNY, J Daisy ANP Unavailable Unavailable JENNY, J Daisy ANP Unavailable Unavailable JENNY, J Daisy ANP Unavailable Unavailable JENNY, J Daisy ANP Unavailable Unavailable JENNY, J Daisy ANP Unavailable Unavailable JENNY, J Daisy ANP Unavailable Unavailable JENNY, J Daisy ANP Unavailable Unavailable JENNY, J Daisy ANP Unavailable Unavailable JENNY, J Daisy ANP Unavailable Unavailable JENNY, J Daisy ANP Unavailable Unavailable JENNY, J Daisy ANP Unavailable Unavailable JENNY, J Daisy ANP Unavailable Unavailable JENNY, J Daisy ANP Unavailable Unavailable JENNY, J Daisy ANP Unavailable Unavailable JENNY, J Daisy ANP Unavailable Unavailable JENNY, J Daisy ANP Unavailable Unavailable Re-disclosure Warning The records that you are about to access may contain information from federally-assisted alcohol or drug abuse programs. If such information is present, then the following federally mandated warning applies: This information has been disclosed to you from records protected by federal confidentiality rules (42 CFR part 2). The federal rules prohibit you from making any further disclosure of this information unless further disclosure is expressly permitted by the written consent of the person to whom it pertains or as otherwise permitted by 42 CFR part 2. A general authorization for the release of medical or other information is NOT sufficient for this purpose. The Federal rules restrict any use of the information to criminally investigate or prosecute any alcohol or drug abuse patient.The records that you are about to access may contain highly sensitive health information, the redisclosure of which is protected by Article 27-F of the [place] Public Health law. If you continue you may have access to information: Regarding HIV / AIDS; Provided by facilities licensed or operated by the [place] Office of Mental Health; or Provided by the [place] Office for People With Developmental Disabilities. If such information is present, then the following [place] mandated warning applies: This information has been disclosed to you from confidential records which are protected by state law. State law prohibits you from making any further disclosure of this information without the specific written consent of the person to whom it pertains, or as otherwise permitted by law. Any unauthorized further disclosure in violation of state law may result in a fine or long-term sentence or both. A general authorization for the release of medical or other information is NOT sufficient authorization for further disc losure. Family History Family Member Name Family Member Gender Family Member Status Date o f Status Description Data Source(s) Unknown Male Problem [facility] ([facility] () Unknown Female Problem [facility] ([facility]) Unknown Female Problem [facility] ([facility]) Unknown Female Problem [facility] ([facility]) Encounters Encounter Providers Location Date Indications Data Source(s ) Emergency Attender: HENRI BOYLE MDConsultant: [facility] ANP 07/01/2020 06:35:00 AM EST - 07/01/2020 07:46:00 AM EST [facility] Patient discharged. Outpatient Attender: Daisy Craig 01:45:00 PM EST [facility] ([facility] ) Outpatient Attender: Daisy Craig 02:45:00 PM EDT [facility] ([facility] ) Emergency Attender: HENRI BOYLE MDConsultant: [facility] ANP 03/18/2020 04:56:00 AM EDT - 03/18/2020 06:29:00 AM EDT [facility] Patient discharged. Emergency Attender: KIARA SHERWOOD MDConsultant: STAFF NON 03/02/2020 12:27:00 PM EDT - 03/02/2020 02:30:00 PM EDT [facility] Patient discharged. Outpatient Attender: Constance Craig 02:20:00 PM EDT [facility] ([facility] ) Outpatient Referrer: Daisy CHENEY 10/05/2019 10:34:00 AM EDT [facility] Outpatient Referrer: Daisy CHENEY 09/30/2019 01:49:00 PM EDT [facility] Outpatient Referrer: Daisy CHENEY 09/13/2019 09:40:00 AM EST [facility] Outpatient Referrer: Daisy CHENEY 09/10/2019 01:33:00 PM EST [facility] Outpatient Referrer: Daisy CHENEY 08/12/2019 11:13:00 AM EST [facility] Outpatient Referrer: Daisy CHENEY 08/11/2019 08:52:00 AM EST [facility] Outpatient Attender: Daisy Craig 01:30:00 PM EST [facility] ([facility] ) Immunizations Vaccine Date Status Description Data Source(s) Influenza, injectable, MDCK, preservative free, stefania valent 05/01/2020 02:55:00 PM EDT completed [facility] ([facility]) Medications Medication Brand Name Start Date Product Form Dose Route Admi nistrative Instructions Pharmacy Instructions Status Indications Reaction Description Data Source(s) 1 gram 09/05/2020 12:00:00 AM EST tablet 180 TAKE THREE TABLETS BY MOUTH TWICE A DAY MAY INCREASE DURING EPISODES OF EXTREME DIARRHEA MAXIMUM DAILY DOSE = 9 TABLETS TAKE THREE TABLETS BY MOUTH TWICE A DAY MAY INCREASE DURING EPISODES OF EXTREME DIARRHEA MAXIMUM DAILY DOSE = 9 TABLETS SOLD: 09/05/2020 [facility] 25 mg 09/03/2020 12:00:00 AM EST tablet 30 TAKE ONE TABLET BY MOUTH EVERY DAY (BENADRYL) TAKE ONE TABLET BY MOUTH EVERY DAY (BENADRYL) SOLD: 09/05/2020 [facility] olanzapine 5 MG Oral Tablet OLANZAPINE 09/03/2020 12:00:00 AM EST tabl et 90 TAKE ONE TABLET BY MOUTH THREE TIMES A DAY TAKE ONE TABLET BY MOUTH THREE TIMES A DAY SOLD: 09/05/2020 [facility] 0.5 mg 08/30/2020 12:00:00 AM EST tablet 60 TAKE ONE TABLET BY MOUTH TWICE A DAY MAXIMUM DAILY DOSE = TWO TABLETS TAKE ONE TABLET BY MOUTH TWICE A DAY MAXIMUM DAILY DOSE = TWO TABLETS SOLD: 09/05/2020 [facility] 8 % 08/30/2020 12:00:00 AM EST solution 6 APPL Y TO NAILS ONCE DAILY APPLY TO NAILS ONCE DAILY SOLD: 09/05/2020 [facility] 125 mg 08/12/2020 12:00:00 AM EST tablet,chewable 100 CHEW 1 TABLET BY MOUTH AFTER EACH MEAL AND BEFORE BED CHEW 1 TABLET BY MOUTH AFTER EACH MEAL A ND BEFORE BED SOLD: 08/15/2020 [facility] benzonatate 100 MG Oral Capsule BENZONATATE 08/12/2020 12:00:00 AM EST capsule 21 TAKE ONE CAPSULE BY MOUTH THREE TIMES A DAY FOR COUGH TAKE ONE CAPSULE BY MOUTH THREE TIMES A DAY FOR COUGH SOLD: 08/15/2020 [facility] 125 mg 08/12/2020 12:00:00 AM EST tablet,chewable 100 CHEW 1 TABLET BY MOUTH AFTER EACH MEAL AND BEFORE BED CHEW 1 TABLET BY MOUTH AFTER EACH MEAL A ND BEFORE BED SOLD: 09/05/2020 [facility] 7.5-325 mg 08/08/2020 12:00:00 AM EST tablet 120 TAKE ONE TABLET BY MOUTH EVERY 6 HOURS NEEDED MAXIMUM DAILY DOSE = 4 TABLETS TAKE ONE TABLET BY MOUTH EVERY 6 HOURS NEEDED MAXIMUM DAILY DOSE = 4 TABLETS SOLD: 08/15/2020 [facility] 25 mg 08/08/2020 12:00:00 AM EST tablet 30 TAKE ONE TABLET BY MOUTH EVERY DAY (BENADRYL) TAKE ONE TABLET BY MOUTH EVERY DAY (BENADRYL) SOLD: 08/08/2020 [facility] 150 mg 08/01/2020 12:00:00 AM EST tablet 1 TAKE 1 TABLET BY MOUTH IMMEDIATELY TAKE 1 TABLET BY MOUTH IMMEDIATELY SOLD: 08/01/2020 [facility] Cephalexin 500 MG Oral Capsule CEPHALEXIN 07/30/2020 12:00:00 AM EST capsule 21 TAKE ONE CAPSULE BY MOUTH THREE TIMES A DAY TAKE ONE C APSULE BY MOUTH THREE TIMES A DAY SOLD: 07/30/2020 [facility] 2 mg 07/27/2020 12:00:00 AM EST tablet 90 TAKE ONE TABLET BY MOUTH EVERY DAY TAKE ONE TABLET BY MOUTH EVERY DAY SOLD: 07/28/2020 [facility] 23 X 36 " 07/19/2020 12:00:00 AM EST pad 150 APPLY TO BED NEEDED FOR UP TO 10 A DAY APPLY TO BED NEEDED FOR UP TO 10 A DAY SOLD: 07/25/2020 [facility] 23 X 36 " 07/19/2020 12:00:00 AM EST pad 150 APPLY TO BED NEEDED FOR UP TO 10 A DAY APPLY TO BED NEEDED FOR UP TO 10 A DAY SOLD: 07/19/2020 [facility] 23 X 36 " 07/19/2020 12:00:00 AM EST pad 300 APPLY TO BED NEEDED FOR UP TO 10 A DAY APPLY TO BED NEEDED FOR UP TO 10 A DAY SOLD: 08/01/2020 [facility] 23 X 36 " 07/19/2020 12:00:00 AM EST pad 150 APPLY TO BED NEEDED FOR UP TO 10 A DAY APPLY TO BED NEEDED FOR UP TO 10 A DAY SOLD: 09/05/2020 [facility] 23 X 36 " 07/19/2020 12:00:00 AM EST pad 150 APPLY TO BED NEEDED FOR UP TO 10 A DAY APPLY TO BED NEEDED FOR UP TO 10 A DAY SOLD: 08/08/2020 [facility] 23 X 36 " 07/19/2020 12:00:00 AM EST pad 150 APPLY TO BED NEEDED FOR UP TO 10 A DAY APPLY TO BED NEEDED FOR UP TO 10 A DAY SOLD: 08/22/2020 [facility] 23 X 36 " 07/19/2020 12:00:00 AM EST pad 300 APPLY TO BED NEEDED FOR UP TO 10 A DAY APPLY TO BED NEEDED FOR UP TO 10 A DAY SOLD: 08/29/2020 [facility] olanzapine 5 MG Oral Tablet OLANZAPINE 07/18/2020 12:00:00 AM EST tabl et 60 TAKE ONE TABLET BY MOUTH TWICE A DAY (ZYPREXA) TAKE ONE TABLET BY MOUTH TWICE A DAY (ZYPREXA) SOLD: 08/15/2020 [facility] olanzapine 5 MG Oral Tablet OLANZAPINE 07/18/2020 12:00:00 AM EST tabl et 60 TAKE ONE TABLET BY MOUTH TWICE A DAY (ZYPREXA) TAKE ONE TABLET BY MOUTH TWICE A DAY (ZYPREXA) SOLD: 07/18/2020 [facility] 2.5 % 07/15/2020 12:00:00 AM EST ointment 40 APPLY TO AFFECTED AREA(S) ON LEFT ARM TWO TIMES A DAY APPLY TO AFFECTED AREA(S) ON LEFT ARM TWO TIMES A DAY SOLD: 07/18/2020 [facility] olanzapine 5 MG Oral Tablet Olanzapine 07/12/2020 12:00:00 AM EST ORAL active [facility] ([facility]) 0.5 mg 07/12/2020 12:00:00 AM EST tablet 60 TAKE ONE TABLET BY MOUTH TWICE A DAY MAXIMUM DAILY DOSE = TWO TABLETS TAKE ONE TABLET BY MOUTH TWICE A DAY MAXIMUM DAILY DOSE = TWO TABLETS SOLD: 07/18/2020 [facility] Cyclobenzaprine hydrochloride 10 MG Oral Tablet CYCLOBENZAPR INE HCL 07/11/2020 12:00:00 AM EST tablet 60 TAKE ONE TABLET BY MOUTH TWICE A DAY NEEDED TAKE ONE TABLET BY MOUTH TWICE A DAY NEEDED SOLD: 07/18/2020 [facility] Cyclobenzaprine hydrochloride 10 MG Oral Tablet CYCLOBENZAPR INE HCL 07/11/2020 12:00:00 AM EST tablet 60 TAKE ONE TABLET BY MOUTH TWICE A DAY NEEDED TAKE ONE TABLET BY MOUTH TWICE A DAY NEEDED SOLD: 08/08/2020 [facility] 25 mg 07/11/2020 12:00:00 AM EST tablet 30 TAKE ONE TABLET BY MOUTH EVERY DAY (BENADRYL) TAKE ONE TABLET BY MOUTH EVERY DAY (BENADRYL) SOLD: 07/11/2020 [facility] 250 mg 07/01/2020 12:00:00 AM EST tablet 14 TAKE ONE TABLET BY MOUTH TWICE A DAY TAKE ONE TABLET BY MOUTH TWICE A DAY SOLD: 07/04/2020 [facility] 7.5-325 mg 06/29/2020 12:00:00 AM EST tablet 120 TAKE ONE TABLET BY MOUTH EVERY 6 HOURS NEEDED MAXIMUM DAILY DOSE = FOUR TABLETS TAKE ONE TABLET BY MOUTH EVERY 6 HOURS NEEDED MAXIMUM DAILY DOSE = FOUR TABLETS SOLD: 07/04/2020 [facility] 325 mg 06/07/2020 12:00:00 AM EST tablet 180 TAKE ONE TABLET BY MOUTH EVERY 3 HOURS NEEDED MAXIMUM DAILY DOSE = SIX TABLETS TAKE ONE TABLET BY MOUTH EVERY 3 HOURS NEEDED MAXIMUM DAILY DOSE = SIX TABLETS SOLD: 08/08/2020 [facility] 25 mg 06/07/2020 12:00:00 AM EST tablet 30 TAKE ONE TABLET BY MOUTH EVERY DAY (BENADRYL) TAKE ONE TABLET BY MOUTH EVERY DAY (BENADRYL) SOLD: 06/13/2020 [facility] 325 mg 06/07/2020 12:00:00 AM EST tablet 180 TAKE ONE TABLET BY MOUTH EVERY 3 HOURS NEEDED MAXIMUM DAILY DOSE = SIX TABLETS TAKE ONE TABLET BY MOUTH EVERY 3 HOURS NEEDED MAXIMUM DAILY DOSE = SIX TABLETS SOLD: 07/11/2020 [facility] 325 mg 06/07/2020 12:00:00 AM EST tablet 180 TAKE ONE TABLET BY MOUTH EVERY 3 HOURS NEEDED MAXIMUM DAILY DOSE = SIX TABLETS TAKE ONE TABLET BY MOUTH EVERY 3 HOURS NEEDED MAXIMUM DAILY DOSE = SIX TABLETS SOLD: 06/13/2020 [facility] Acetaminophen 325 MG Oral Tablet Acetaminophen 06/06/2020 12:00:00 AM EST active [facility] ([facility]) Meclizine Hydrochloride 25 MG Oral Tablet MECLIZINE HCL 05/30/2020 12:00:00 AM EST tablet 90 TAKE ONE TABLET BY MOUTH VICKI RY 8 HOURS NEEDED FOR DIZZINESS TAKE ONE TABLET BY MOUTH EVERY 8 HOURS NEEDED FOR DIZZINESS SOLD: 07/25/2020 [facility] Meclizine Hydrochloride 25 MG Oral Tablet MECLIZINE HCL 05/30/2020 12:00:00 AM EST tablet 90 TAKE ONE TABLET BY MOUTH VICKI RY 8 HOURS NEEDED FOR DIZZINESS TAKE ONE TABLET BY MOUTH EVERY 8 HOURS NEEDED FOR DIZZINESS SOLD: 09/05/2020 [facility] Meclizine Hydrochloride 25 MG Oral Tablet MECLIZINE HCL 05/30/2020 12:00:00 AM EST tablet 90 TAKE ONE TABLET BY MOUTH VICKI RY 8 HOURS NEEDED FOR DIZZINESS TAKE ONE TABLET BY MOUTH EVERY 8 HOURS NEEDED FOR DIZZINESS SOLD: 05/30/2020 [facility] 0.5 mg 05/16/2020 12:00:00 AM EDT tablet 60 TAKE ONE TABLET BY MOUTH TWICE A DAY MAXIMUM DAILY DOSE = 2 TABLETS TAKE ONE TABLET BY MOUTH TWICE A DAY MAX IMUM DAILY DOSE = 2 TABLETS SOLD: 05/23/2020 [facility] 200 mg calcium (500 mg) 05/16/2020 12:00:00 AM EDT tablet,ch ewable 180 TAKE 2 TABLETS BY MOUTH THREE TIMES A DAY TAKE 2 TABLETS BY MOUTH THREE TIMES A DAY SOLD: 05/16/2020 [facility] 200 mg calcium (500 mg) 05/16/2020 12:00:00 AM EDT tablet,ch ewable 180 TAKE 2 TABLETS BY MOUTH THREE TIMES A DAY TAKE 2 TABLETS BY MOUTH THREE TIMES A DAY SOLD: 07/06/2020 [facility] 200 mg calcium (500 mg) 05/16/2020 12:00:00 AM EDT tablet,ch ewable 180 TAKE 2 TABLETS BY MOUTH THREE TIMES A DAY TAKE 2 TABLETS BY MOUTH THREE TIMES A DAY SOLD: 06/13/2020 [facility] 200 mg calcium (500 mg) 05/16/2020 12:00:00 AM EDT tablet,ch ewable 180 TAKE 2 TABLETS BY MOUTH THREE TIMES A DAY TAKE 2 TABLETS BY MOUTH THREE TIMES A DAY SOLD: 08/08/2020 [facility] 200 mg calcium (500 mg) 05/16/2020 12:00:00 AM EDT tablet,ch ewable 180 TAKE 2 TABLETS BY MOUTH THREE TIMES A DAY TAKE 2 TABLETS BY MOUTH THREE TIMES A DAY SOLD: 09/05/2020 [facility] 25 mg 05/16/2020 12:00:00 AM EDT tablet 30 TAKE ONE TABLET BY MOUTH EVERY DAY (BENADRYL) TAKE ONE TABLET BY MOUTH EVERY DAY (BENADRYL) SOLD: 05/16/2020 [facility] 23 X 36 " 05/09/2020 12:00:00 AM EDT pad 150 APPLY TO BED NEEDED UP TO 10 TIMES PER DAY APPLY TO BED NEEDED UP TO 10 TIMES PER DAY SOLD: 05/23/2020 [facility] 23 X 36 " 05/09/2020 12:00:00 AM EDT pad 150 APPLY TO BED NEEDED UP TO 10 TIMES PER DAY APPLY TO BED NEEDED UP TO 10 TIMES PER DAY SOLD: 05/30/2020 [facility] 23 X 36 " 05/09/2020 12:00:00 AM EDT pad 300 APPLY TO BED NEEDED UP TO 10 TIMES PER DAY APPLY TO BED NEEDED UP TO 10 TIMES PER DAY SOLD: 06/06/2020 [facility] 23 X 36 " 05/09/2020 12:00:00 AM EDT pad 150 APPLY TO BED NEEDED UP TO 10 TIMES PER DAY APPLY TO BED NEEDED UP TO 10 TIMES PER DAY SOLD: 07/11/2020 [facility] 23 X 36 " 05/09/2020 12:00:00 AM EDT pad 150 APPLY TO BED NEEDED UP TO 10 TIMES PER DAY APPLY TO BED NEEDED UP TO 10 TIMES PER DAY SOLD: 05/16/2020 [facility] 23 X 36 " 05/09/2020 12:00:00 AM EDT pad 150 APPLY TO BED NEEDED UP TO 10 TIMES PER DAY APPLY TO BED NEEDED UP TO 10 TIMES PER DAY SOLD: 06/27/2020 [facility] 23 X 36 " 05/09/2020 12:00:00 AM EDT pad 150 APPLY TO BED NEEDED UP TO 10 TIMES PER DAY APPLY TO BED NEEDED UP TO 10 TIMES PER DAY SOLD: 06/20/2020 [facility] 23 X 36 " 05/09/2020 12:00:00 AM EDT pad 300 APPLY TO BED NEEDED UP TO 10 TIMES PER DAY APPLY TO BED NEEDED UP TO 10 TIMES PER DAY SOLD: 05/09/2020 [facility] 23 X 36 " 05/09/2020 12:00:00 AM EDT pad 300 APPLY TO BED NEEDED UP TO 10 TIMES PER DAY APPLY TO BED NEEDED UP TO 10 TIMES PER DAY SOLD: 07/04/2020 [facility] DIAPER,BRIEF,ADULT, DISPOSABLE 05/07/2020 12:00:00 AM EDT mi sc 240 CHANGE NEEDED UP TO 8 TIMES A DAY CHANGE NEEDED UP TO 8 TIMES A DAY SOLD: 06/06/2020 [facility] DIAPER,BRIEF,ADULT, DISPOSABLE 05/07/2020 12:00:00 AM EDT mi sc 240 CHANGE NEEDED UP TO 8 TIMES A DAY CHANGE NEEDED UP TO 8 TIMES A DAY SOLD: 07/04/2020 [facility] DIAPER,BRIEF,ADULT, DISPOSABLE 05/07/2020 12:00:00 AM EDT mi sc 234 CHANGE NEEDED UP TO 8 TIMES A DAY CHANGE NEEDED UP TO 8 TIMES A DAY SOLD: 08/17/2020 [facility] 2 mg 05/07/2020 12:00:00 AM EDT tablet 90 TAKE ONE TABLET BY MOUTH EVERY DAY TAKE ONE TABLET BY MOUTH EVERY DAY SOLD: 05/09/2020 [facility] DIAPER,BRIEF,ADULT, DISPOSABLE 05/07/2020 12:00:00 AM EDT mi sc 240 CHANGE NEEDED UP TO 8 TIMES A DAY CHANGE NEEDED UP TO 8 TIMES A DAY SOLD: 05/09/2020 [facility] 250 mg 05/07/2020 12:00:00 AM EDT tablet,delayed release (DR/EC) 180 TAKE ONE TABLET BY MOUTH TWICE A DAY TAKE ONE TABLET BY MOUTH TWICE A DAY SOLD: 05/09/2020 [facility] 250 mg 05/07/2020 12:00:00 AM EDT tablet,delayed release (DR/EC) 180 TAKE ONE TABLET BY MOUTH TWICE A DAY TAKE ONE TABLET BY MOUTH TWICE A DAY SOLD: 07/28/2020 [facility] 4 mg 05/05/2020 12:00:00 AM EDT tablet,disintegrating 4 5 DISSOLVE ONE TABLET ON TONGUE EVERY 6 HOURS NEEDED FOR NAUSEA DISSOLVE ONE TABLET ON TONGUE EVERY 6 HOURS NEEDED FOR NAUSEA SOLD: 06/20/2020 [facility] 4 mg 05/05/2020 12:00:00 AM EDT tablet,disintegrating 4 5 DISSOLVE ONE TABLET ON TONGUE EVERY 6 HOURS NEEDED FOR NAUSEA DISSOLVE ONE TABLET ON TONGUE EVERY 6 HOURS NEEDED FOR NAUSEA SOLD: 08/29/2020 [facility] 4 mg 05/05/2020 12:00:00 AM EDT tablet,disintegrating 4 5 DISSOLVE ONE TABLET ON TONGUE EVERY 6 HOURS NEEDED FOR NAUSEA DISSOLVE ONE TABLET ON TONGUE EVERY 6 HOURS NEEDED FOR NAUSEA SOLD: 05/09/2020 [facility] 2.5-0.025 mg 05/02/2020 12:00:00 AM EDT tablet 30 TAKE ONE TABLET BY MOUTH EVERY DAY NEEDED FOR DIARRHEA MAXIMUM DAILY DOSE = ONE TABLET TAKE ONE TABLET BY MOUTH EVERY DAY NEEDED FOR DIARRHEA MAXIMUM DAILY DOSE = ONE TABLET SOLD: 05/02/2020 [facility] 250 mg 05/01/2020 12:00:00 AM EDT tablet,delayed release (DR/EC) 21 TAKE ONE TABLET BY MOUTH THREE TIMES A DAY FOR MOOD STABILIZER (DEPAKOTE) TAKE ONE TABLET BY MOUTH THREE TIMES A DAY FOR MOOD STABILIZER (DEPAKOTE) SOLD: 05/02/2020 [facility] olanzapine 5 MG Oral Tablet OLANZAPINE 05/01/2020 12:00:00 AM EDT tabl et 14 TAKE ONE TABLET BY MOUTH TWICE A DAY TAKE ONE TABLET BY MOUTH TWICE A DAY SOLD: 05/02/2020 [facility] olanzapine 5 MG Oral Tablet OLANZAPINE 05/01/2020 12:00:00 AM EDT tabl et 14 TAKE ONE TABLET BY MOUTH TWICE A DAY TAKE ONE TABLET BY MOUTH TWICE A DAY SOLD: 06/20/2020 [facility] 2 mg 05/01/2020 12:00:00 AM EDT tablet 7 TAKE ONE TABLET BY MOUTH EVERY DAY TAKE ONE TABLET BY MOUTH EVERY DAY SOLD: 05/02/2020 [facility] olanzapine 5 MG Oral Tablet OLANZAPINE 05/01/2020 12:00:00 AM EDT tabl et 14 TAKE ONE TABLET BY MOUTH TWICE A DAY TAKE ONE TABLET BY MOUTH TWICE A DAY SOLD: 06/13/2020 [facility] olanzapine 5 MG Oral Tablet OLANZAPINE 05/01/2020 12:00:00 AM EDT tabl et 14 TAKE ONE TABLET BY MOUTH TWICE A DAY TAKE ONE TABLET BY MOUTH TWICE A DAY SOLD: 05/30/2020 [facility] olanzapine 5 MG Oral Tablet OLANZAPINE 05/01/2020 12:00:00 AM EDT tabl et 14 TAKE ONE TABLET BY MOUTH TWICE A DAY TAKE ONE TABLET BY MOUTH TWICE A DAY SOLD: 06/06/2020 [facility] olanzapine 5 MG Oral Tablet Olanzapine 05/01/2020 12:00:00 AM EDT completed [facility] ([facility]) 0.5 mg 05/01/2020 12:00:00 AM EDT tablet 14 TAKE ONE TABLET BY MOUTH TWICE A DAY NEEDED FOR ANXIETY/ AGITATION MAXIMUM DAILY DOSE = 2 TABLETS TAKE ONE TABLET BY MOUTH TWICE A DAY NEEDED FOR ANXIETY/ AGITATION MAXIMUM DAILY DOSE = 2 TABLETS SOLD: 05/02/2020 [facility] 7.5-325 mg 04/19/2020 12:00:00 AM EDT tablet 120 TAKE ONE TABLET BY MOUTH EVERY 6 HOURS NEEDED MAXIMUM DAILY DOSE = 4 TAKE ONE TABLET BY MOUTH EVERY 6 HOURS NEEDED MAXIMUM DAILY DOSE = 4 SOLD: 04/20/2020 [facility] 30 mg 04/18/2020 12:00:00 AM EDT tablet 60 TAKE ONE TABLET BY MOUTH TWICE A DAY TAKE ONE TABLET BY MOUTH TWICE A DAY SOLD: 04/18/2020 [facility] 30 mg 04/18/2020 12:00:00 AM EDT tablet 60 TAKE ONE TABLET BY MOUTH TWICE A DAY TAKE ONE TABLET BY MOUTH TWICE A DAY SOLD: 06/27/2020 [facility] 30 mg 04/18/2020 12:00:00 AM EDT tablet 60 TAKE ONE TABLET BY MOUTH TWICE A DAY TAKE ONE TABLET BY MOUTH TWICE A DAY SOLD: 08/29/2020 [facility] 30 mg 04/18/2020 12:00:00 AM EDT tablet 60 TAKE ONE TABLET BY MOUTH TWICE A DAY TAKE ONE TABLET BY MOUTH TWICE A DAY SOLD: 08/01/2020 [facility] 30 mg 04/18/2020 12:00:00 AM EDT tablet 60 TAKE ONE TABLET BY MOUTH TWICE A DAY TAKE ONE TABLET BY MOUTH TWICE A DAY SOLD: 05/16/2020 [facility] 125 mg 04/14/2020 12:00:00 AM EDT tablet,chewable 100 CHEW 1 TABLET BY MOUTH AFTER EACH MEAL AND BEFORE BED CHEW 1 TABLET BY MOUTH AFTER EACH MEAL A ND BEFORE BED SOLD: 07/25/2020 [facility] 125 mg 04/14/2020 12:00:00 AM EDT tablet,chewable 100 CHEW 1 TABLET BY MOUTH AFTER EACH MEAL AND BEFORE BED CHEW 1 TABLET BY MOUTH AFTER EACH MEAL A ND BEFORE BED SOLD: 05/23/2020 [facility] 125 mg 04/14/2020 12:00:00 AM EDT tablet,chewable 100 CHEW 1 TABLET BY MOUTH AFTER EACH MEAL AND BEFORE BED CHEW 1 TABLET BY MOUTH AFTER EACH MEAL A ND BEFORE BED SOLD: 05/02/2020 [facility] 125 mg 04/14/2020 12:00:00 AM EDT tablet,chewable 100 CHEW 1 TABLET BY MOUTH AFTER EACH MEAL AND BEFORE BED CHEW 1 TABLET BY MOUTH AFTER EACH MEAL A ND BEFORE BED SOLD: 04/18/2020 [facility] 125 mg 04/14/2020 12:00:00 AM EDT tablet,chewable 40 CHEW 1 TABLET BY MOUTH AFTER EACH MEAL AND BEFORE BED CHEW 1 TABLET BY MOUTH AFTER EACH MEAL A ND BEFORE BED SOLD: 07/11/2020 [facility] 125 mg 04/14/2020 12:00:00 AM EDT tablet,chewable 50 CHEW 1 TABLET BY MOUTH AFTER EACH MEAL AND BEFORE BED CHEW 1 TABLET BY MOUTH AFTER EACH MEAL A ND BEFORE BED SOLD: 06/20/2020 [facility] Diphenhydramine Hydrochloride 25 MG Oral Tablet Diphenhydram ine HCL 04/04/2020 12:00:00 AM EDT active M [facility] ([facility]) 25 mg 04/04/2020 12:00:00 AM EDT tablet 30 TAKE ONE TABLET BY MOUTH EVERY DAY (BENADRYL) TAKE ONE TABLET BY MOUTH EVERY DAY (BENADRYL) SOLD: 04/04/2020 [facility] 300 mg 03/08/2020 12:00:00 AM EDT capsule 20 TAKE ONE CAPSULE BY MOUTH TWICE A DAY FOR 10 DAYS TAKE ONE CAPSULE BY MOUTH TWICE A DAY FOR 10 DAYS SOLD : 03/08/2020 [facility] 25 mg 03/07/2020 12:00:00 AM EDT tablet 30 TAKE ONE TABLET BY MOUTH EVERY DAY (BENADRYL) TAKE ONE TABLET BY MOUTH EVERY DAY (BENADRYL) SOLD: 03/07/2020 [facility] 400-80 mg 03/02/2020 12:00:00 AM EDT tablet 10 TAKE ONE TABLET BY MOUTH TWICE A DAY TAKE ONE TABLET BY MOUTH TWICE A DAY SOLD: 03/07/2020 [facility] 0.5 mg 02/22/2020 12:00:00 AM EDT tablet 60 TAKE ONE TABLET BY MOUTH TWICE A DAY MAXIMUM DAILY DOSE = 2 TAKE ONE TABLET BY MOUTH TWICE A DAY MAX IMUM DAILY DOSE = 2 SOLD: 02/22/2020 [facility] 300 mg 02/12/2020 12:00:00 AM EDT capsule 20 TAKE ONE CAPSULE BY MOUTH TWICE A DAY FOR 10 DAYS TAKE ONE CAPSULE BY MOUTH TWICE A DAY FOR 10 DAYS SOLD : 02/12/2020 [facility] olanzapine 2.5 MG Oral Tablet OLANZAPINE 02/08/2020 12:00:00 AM EDT ta blet 60 TAKE TWO TABLETS BY MOUTH AT BEDTIME TAKE TWO TABLETS BY MOUTH AT BEDTIME SOLD: 04/18/2020 [facility] olanzapine 2.5 MG Oral Tablet OLANZAPINE 02/08/2020 12:00:00 AM EDT ta blet 60 TAKE TWO TABLETS BY MOUTH AT BEDTIME TAKE TWO TABLETS BY MOUTH AT BEDTIME SOLD: 03/07/2020 [facility] olanzapine 2.5 MG Oral Tablet OLANZAPINE 02/08/2020 12:00:00 AM EDT ta blet 60 TAKE TWO TABLETS BY MOUTH AT BEDTIME TAKE TWO TABLETS BY MOUTH AT BEDTIME SOLD: 02/08/2020 [facility] 137 mcg (0.1 %) 01/27/2020 12:00:00 AM EDT aerosol,spray 30 SPRAY TWO SPRAYS IN ONE NOSTRIL ONCE DAILY SPRAY TWO SPRAYS IN ONE NOSTRIL ONCE DAILY SOLD: 05/16/2020 [facility] 137 mcg (0.1 %) 01/27/2020 12:00:00 AM EDT aerosol,spray 30 SPRAY TWO SPRAYS IN ONE NOSTRIL ONCE DAILY SPRAY TWO SPRAYS IN ONE NOSTRIL ONCE DAILY SOLD: 01/31/2020 [facility] Azelastine HCL (Nasal) Azelastine HCL (Nasal) 01/27/2020 12:00:00 AM E DT active [facility] ([facility]) 50 mcg/actuation 01/25/2020 12:00:00 AM EDT spray,suspension 16 SPRAY TWO SPRAYS IN EACH NOSTRIL EVERY DAY SPRAY TWO SPRAYS IN EACH NOSTRIL EVERY DAY SOLD: 06/27/2020 [facility] 50 mcg/actuation 01/25/2020 12:00:00 AM EDT spray,suspension 16 SPRAY TWO SPRAYS IN EACH NOSTRIL EVERY DAY SPRAY TWO SPRAYS IN EACH NOSTRIL EVERY DAY SOLD: 01/25/2020 [facility] 100 mg 01/23/2020 12:00:00 AM EDT capsule 10 TAKE ONE CAPSULE BY MOUTH TWICE A DAY TAKE ONE CAPSULE BY MOUTH TWICE A DAY SOLD: 01/25/2020 [facility] Cyclobenzaprine hydrochloride 10 MG Oral Tablet CYCLOBENZAPR INE HCL 01/19/2020 12:00:00 AM EDT tablet 60 TAKE ONE TABLET BY MOUTH TWICE A DAY NEEDED TAKE ONE TABLET BY MOUTH TWICE A DAY NEEDED SOLD: 06/13/2020 [facility] Cyclobenzaprine hydrochloride 10 MG Oral Tablet CYCLOBENZAPR INE HCL 01/19/2020 12:00:00 AM EDT tablet 60 TAKE ONE TABLET BY MOUTH TWICE A DAY NEEDED TAKE ONE TABLET BY MOUTH TWICE A DAY NEEDED SOLD: 02/15/2020 [facility] Cyclobenzaprine hydrochloride 10 MG Oral Tablet CYCLOBENZAPR INE HCL 01/19/2020 12:00:00 AM EDT tablet 60 TAKE ONE TABLET BY MOUTH TWICE A DAY NEEDED TAKE ONE TABLET BY MOUTH TWICE A DAY NEEDED SOLD: 01/25/2020 [facility] Cyclobenzaprine hydrochloride 10 MG Oral Tablet CYCLOBENZAPR INE HCL 01/19/2020 12:00:00 AM EDT tablet 60 TAKE ONE TABLET BY MOUTH TWICE A DAY NEEDED TAKE ONE TABLET BY MOUTH TWICE A DAY NEEDED SOLD: 05/16/2020 [facility] Cyclobenzaprine hydrochloride 10 MG Oral Tablet CYCLOBENZAPR INE HCL 01/19/2020 12:00:00 AM EDT tablet 60 TAKE ONE TABLET BY MOUTH TWICE A DAY NEEDED TAKE ONE TABLET BY MOUTH TWICE A DAY NEEDED SOLD: 04/04/2020 [facility] 100-50 mcg/dose 01/13/2020 12:00:00 AM EDT blister with roxy ce 60 INHALE ONE PUFF BY MOUTH TWICE A DAY INHALE ONE PUFF BY MOUTH TWICE A DAY SOLD: 05/16/2020 [facility] 100-50 mcg/dose 01/13/2020 12:00:00 AM EDT blister with roxy ce 60 INHALE ONE PUFF BY MOUTH TWICE A DAY INHALE ONE PUFF BY MOUTH TWICE A DAY SOLD: 01/15/2020 [facility] 325 mg 01/04/2020 12:00:00 AM EDT tablet 180 TAKE ONE TABLET BY MOUTH EVERY 3 HOURS NEEDED MAXIMUM DAILY DOSE = SIX TABLETS TAKE ONE TABLET BY MOUTH EVERY 3 HOURS NEEDED MAXIMUM DAILY DOSE = SIX TABLETS SOLD: 04/11/2020 [facility] 325 mg 01/04/2020 12:00:00 AM EDT tablet 180 TAKE ONE TABLET BY MOUTH EVERY 3 HOURS NEEDED MAXIMUM DAILY DOSE = SIX TABLETS TAKE ONE TABLET BY MOUTH EVERY 3 HOURS NEEDED MAXIMUM DAILY DOSE = SIX TABLETS SOLD: 01/25/2020 [facility] 325 mg 01/04/2020 12:00:00 AM EDT tablet 180 TAKE ONE TABLET BY MOUTH EVERY 3 HOURS NEEDED MAXIMUM DAILY DOSE = SIX TABLETS TAKE ONE TABLET BY MOUTH EVERY 3 HOURS NEEDED MAXIMUM DAILY DOSE = SIX TABLETS SOLD: 02/29/2020 [facility] 325 mg 01/04/2020 12:00:00 AM EDT tablet 180 TAKE ONE TABLET BY MOUTH EVERY 3 HOURS NEEDED MAXIMUM DAILY DOSE = SIX TABLETS TAKE ONE TABLET BY MOUTH EVERY 3 HOURS NEEDED MAXIMUM DAILY DOSE = SIX TABLETS SOLD: 01/04/2020 [facility] 325 mg 01/04/2020 12:00:00 AM EDT tablet 180 TAKE ONE TABLET BY MOUTH EVERY 3 HOURS NEEDED MAXIMUM DAILY DOSE = SIX TABLETS TAKE ONE TABLET BY MOUTH EVERY 3 HOURS NEEDED MAXIMUM DAILY DOSE = SIX TABLETS SOLD: 05/16/2020 [facility] POLYETHYLENE GLYCOL 3350 142 MG/ML Oral Solution [Miralax] M iralax 01/04/2020 12:00:00 AM EDT active M [facility] ([facility]) Multi Vitamin 01/04/2020 12:00:00 AM EDT ORAL acti ve [facility] ([facility]) Cephalexin 500 MG Oral Capsule CEPHALEXIN 01/03/2020 12:00:00 AM EDT capsule 14 TAKE ONE CAPSULE BY MOUTH TWICE A DAY FOR 7 DAYS TAKE ONE CAPSULE BY MOUTH TWICE A DAY FOR 7 DAYS SOLD: 01/04/2020 [facility] 2.5-0.025 mg 01/01/2020 12:00:00 AM EDT tablet 30 TAKE ONE TABLET BY MOUTH EVERY 4 HOURS NEEDED MAXIMUM DAILY DOSE = SIX TABLETS TAKE ONE TABLET BY MOUTH EVERY 4 HOURS NEEDED MAXIMUM DAILY DOSE = SIX TABLETS SOLD: 01/01/2020 [facility] 0.5 mg 12/28/2019 12:00:00 AM EDT tablet 60 TAKE ONE TABLET BY MOUTH TWICE A DAY MAXIMUM DAILY DOSE = TWO TABLETS TAKE ONE TABLET BY MOUTH TWICE A DAY MAXIMUM DAILY DOSE = TWO TABLETS SOLD: 12/28/2019 [facility] 2 mg 12/28/2019 12:00:00 AM EDT capsule 150 TAKE 1 CAPSULE BY MOUTH AFTER EACH LOOSE STOOL MAXIMUM DAILY DOSE = 5 CAPSULES TAKE 1 CAPSULE BY MOUTH AFTER EACH LOOSE STOOL MAXIMUM DAILY DOSE = 5 CAPSULES SOLD: 05/02/2020 [facility] 2.5-0.025 mg 12/28/2019 12:00:00 AM EDT tablet 30 TAKE ONE TABLET BY MOUTH EVERY DAY NEEDED MAXIMUM DAILY DOSE = ONE TABLET TAKE ONE TABLET BY MOUTH EVERY DAY NEEDED MAXIMUM DAILY DOSE = ONE TABLET SOLD: 12/28/2019 [facility] 2 mg 12/28/2019 12:00:00 AM EDT capsule 150 TAKE 1 CAPSULE BY MOUTH AFTER EACH LOOSE STOOL MAXIMUM DAILY DOSE = 5 CAPSULES TAKE 1 CAPSULE BY MOUTH AFTER EACH LOOSE STOOL MAXIMUM DAILY DOSE = 5 CAPSULES SOLD: 12/28/2019 [facility] 30 mg 12/21/2019 12:00:00 AM EDT tablet 60 TAKE ONE TABLET BY MOUTH TWICE A DAY TAKE ONE TABLET BY MOUTH TWICE A DAY SOLD: 03/21/2020 [facility] 30 mg 12/21/2019 12:00:00 AM EDT tablet 60 TAKE ONE TABLET BY MOUTH TWICE A DAY TAKE ONE TABLET BY MOUTH TWICE A DAY SOLD: 02/15/2020 [facility] 30 mg 12/21/2019 12:00:00 AM EDT tablet 60 TAKE ONE TABLET BY MOUTH TWICE A DAY TAKE ONE TABLET BY MOUTH TWICE A DAY SOLD: 12/21/2019 [facility] 30 mg 12/21/2019 12:00:00 AM EDT tablet 60 TAKE ONE TABLET BY MOUTH TWICE A DAY TAKE ONE TABLET BY MOUTH TWICE A DAY SOLD: 01/18/2020 [facility] 23 X 36 " 12/20/2019 12:00:00 AM EDT pad 300 APPLY TO BED NEEDED UP TO 10 TIMES DAILY APPLY TO BED NEEDED UP TO 10 TIMES DAILY SOLD: 12/21/2019 [facility] 23 X 36 " 12/20/2019 12:00:00 AM EDT pad 150 APPLY TO BED NEEDED UP TO 10 TIMES DAILY APPLY TO BED NEEDED UP TO 10 TIMES DAILY SOLD: 02/08/2020 [facility] 23 X 36 " 12/20/2019 12:00:00 AM EDT pad 300 APPLY TO BED NEEDED UP TO 10 TIMES DAILY APPLY TO BED NEEDED UP TO 10 TIMES DAILY SOLD: 02/15/2020 [facility] 23 X 36 " 12/20/2019 12:00:00 AM EDT pad 150 APPLY TO BED NEEDED UP TO 10 TIMES DAILY APPLY TO BED NEEDED UP TO 10 TIMES DAILY SOLD: 02/29/2020 [facility] 23 X 36 " 12/20/2019 12:00:00 AM EDT pad 150 APPLY TO BED NEEDED UP TO 10 TIMES DAILY APPLY TO BED NEEDED UP TO 10 TIMES DAILY SOLD: 03/07/2020 [facility] 23 X 36 " 12/20/2019 12:00:00 AM EDT pad 150 APPLY TO BED NEEDED UP TO 10 TIMES DAILY APPLY TO BED NEEDED UP TO 10 TIMES DAILY SOLD: 01/11/2020 [facility] 23 X 36 " 12/20/2019 12:00:00 AM EDT pad 300 APPLY TO BED NEEDED UP TO 10 TIMES DAILY APPLY TO BED NEEDED UP TO 10 TIMES DAILY SOLD: 01/18/2020 [facility] 23 X 36 " 12/20/2019 12:00:00 AM EDT pad 300 APPLY TO BED NEEDED UP TO 10 TIMES DAILY APPLY TO BED NEEDED UP TO 10 TIMES DAILY SOLD: 03/14/2020 [facility] 7.5-325 mg 12/07/2019 12:00:00 AM EDT tablet 120 TAKE ONE TABLET BY MOUTH EVERY 6 HOURS NEEDED MAXIMUM DAILY DOSE = 4 TABLETS TAKE ONE TABLET BY MOUTH EVERY 6 HOURS NEEDED MAXIMUM DAILY DOSE = 4 TABLETS SOLD: 12/07/2019 [facility] 0.1 % 12/02/2019 12:00:00 AM EDT ointment 15 APPLY TO HAND TWO TIMES A DAY FOR 10 DAYS APPLY TO HAND TWO TIMES A DAY FOR 10 DAYS SOLD: 12/07/2019 [facility] 0.5 mg 11/30/2019 12:00:00 AM EDT tablet 60 TAKE ONE TABLET BY MOUTH TWICE A DAY MAXIMUM DAILY DOSE = 2 TABLETS TAKE ONE TABLET BY MOUTH TWICE A DAY MAX IMUM DAILY DOSE = 2 TABLETS SOLD: 11/30/2019 [facility] 800-160 mg 11/27/2019 12:00:00 AM EDT tablet 14 TAKE ONE TABLET BY MOUTH EVERY 12 HOURS UNTIL GONE TAKE ONE TABLET BY MOUTH EVERY 12 HOURS UNTIL GONE SOLD: 11/30/2019 [facility] 200 mg calcium (500 mg) 11/26/2019 12:00:00 AM EDT tablet,ch ewable 180 TAKE TWO TABLETS BY MOUTH THREE TIMES A DAY TAKE TWO TABLETS BY MOUTH THREE TIMES A DAY SOLD: 02/15/2020 [facility] 200 mg calcium (500 mg) 11/26/2019 12:00:00 AM EDT tablet,ch ewable 180 TAKE TWO TABLETS BY MOUTH THREE TIMES A DAY TAKE TWO TABLETS BY MOUTH THREE TIMES A DAY SOLD: 12/28/2019 [facility] 200 mg calcium (500 mg) 11/26/2019 12:00:00 AM EDT tablet,ch ewable 180 TAKE TWO TABLETS BY MOUTH THREE TIMES A DAY TAKE TWO TABLETS BY MOUTH THREE TIMES A DAY SOLD: 04/11/2020 [facility] 200 mg calcium (500 mg) 11/26/2019 12:00:00 AM EDT tablet,ch ewable 180 TAKE TWO TABLETS BY MOUTH THREE TIMES A DAY TAKE TWO TABLETS BY MOUTH THREE TIMES A DAY SOLD: 11/30/2019 [facility] DIAPER,BRIEF,ADULT, DISPOSABLE 11/15/2019 12:00:00 AM EDT mi sc 240 CHANGE NEEDED UP TO 8 TIMES A DAY CHANGE NEEDED UP TO 8 TIMES A DAY SOLD: 01/18/2020 [facility] DIAPER,BRIEF,ADULT, DISPOSABLE 11/15/2019 12:00:00 AM EDT mi sc 240 CHANGE NEEDED UP TO 8 TIMES A DAY CHANGE NEEDED UP TO 8 TIMES A DAY SOLD: 11/16/2019 [facility] DIAPER,BRIEF,ADULT, DISPOSABLE 11/15/2019 12:00:00 AM EDT mi sc 240 CHANGE NEEDED UP TO 8 TIMES A DAY CHANGE NEEDED UP TO 8 TIMES A DAY SOLD: 03/14/2020 [facility] DIAPER,BRIEF,ADULT, DISPOSABLE 11/15/2019 12:00:00 AM EDT mi sc 240 CHANGE NEEDED UP TO 8 TIMES A DAY CHANGE NEEDED UP TO 8 TIMES A DAY SOLD: 02/15/2020 [facility] DIAPER,BRIEF,ADULT, DISPOSABLE 11/15/2019 12:00:00 AM EDT mi sc 240 CHANGE NEEDED UP TO 8 TIMES A DAY CHANGE NEEDED UP TO 8 TIMES A DAY SOLD: 12/14/2019 [facility] DIAPER,BRIEF,ADULT, DISPOSABLE 11/15/2019 12:00:00 AM EDT mi sc 240 CHANGE NEEDED UP TO 8 TIMES A DAY CHANGE NEEDED UP TO 8 TIMES A DAY SOLD: 04/11/2020 [facility] 7.5-325 mg 11/10/2019 12:00:00 AM EDT tablet 120 TAKE ONE TABLET BY MOUTH EVERY 6 HOURS NEEDED MAXIMUM DAILY DOSE = FOUR TABLETS TAKE ONE TABLET BY MOUTH EVERY 6 HOURS NEEDED MAXIMUM DAILY DOSE = FOUR TABLETS SOLD: 11/16/2019 [facility] 125 mg 11/09/2019 12:00:00 AM EDT tablet,chewable 42 ONE BY MOUTH FOUR TIMES A DAY AFTER MEALS AND AT BEDTIME ONE BY MOUTH FOUR TIMES A DAY AFTER MEAL S AND AT BEDTIME SOLD: 12/07/2019 [facility] 125 mg 11/09/2019 12:00:00 AM EDT tablet,chewable 100 ONE BY MOUTH FOUR TIMES A DAY AFTER MEALS AND AT BEDTIME ONE BY MOUTH FOUR TIMES A DAY AFTER MEAL S AND AT BEDTIME SOLD: 11/09/2019 [facility] 100-50 mcg/dose 11/09/2019 12:00:00 AM EDT blister with roxy ce 60 INHALE ONE PUFF BY MOUTH TWICE A DAY INHALE ONE PUFF BY MOUTH TWICE A DAY SOLD: 11/09/2019 [facility] 100 mg 11/08/2019 12:00:00 AM EDT capsule 14 TAKE ONE CAPSULE BY MOUTH TWICE A DAY TAKE ONE CAPSULE BY MOUTH TWICE A DAY SOLD: 11/09/2019 [facility] 0.5 mg 10/27/2019 12:00:00 AM EDT tablet 60 TAKE ONE TABLET BY MOUTH TWICE A DAY MAXIMUM DAILY DOSE = 2 TABLETS TAKE ONE TABLET BY MOUTH TWICE A DAY MAX IMUM DAILY DOSE = 2 TABLETS SOLD: 11/02/2019 [facility] 23 X 36 " 10/27/2019 12:00:00 AM EDT pad 150 APPLY TO BED NEEDED UP TO 10 TIMES PER DAY APPLY TO BED NEEDED UP TO 10 TIMES PER DAY SOLD: 11/01/2019 [facility] 23 X 36 " 10/27/2019 12:00:00 AM EDT pad 150 APPLY TO BED NEEDED UP TO 10 TIMES PER DAY APPLY TO BED NEEDED UP TO 10 TIMES PER DAY SOLD: 03/21/2020 [facility] 23 X 36 " 10/27/2019 12:00:00 AM EDT pad 150 APPLY TO BED NEEDED UP TO 10 TIMES PER DAY APPLY TO BED NEEDED UP TO 10 TIMES PER DAY SOLD: 11/23/2019 [facility] 23 X 36 " 10/27/2019 12:00:00 AM EDT pad 150 APPLY TO BED NEEDED UP TO 10 TIMES PER DAY APPLY TO BED NEEDED UP TO 10 TIMES PER DAY SOLD: 03/28/2020 [facility] 23 X 36 " 10/27/2019 12:00:00 AM EDT pad 300 APPLY TO BED NEEDED UP TO 10 TIMES PER DAY APPLY TO BED NEEDED UP TO 10 TIMES PER DAY SOLD: 04/11/2020 [facility] 23 X 36 " 10/27/2019 12:00:00 AM EDT pad 150 APPLY TO BED NEEDED UP TO 10 TIMES PER DAY APPLY TO BED NEEDED UP TO 10 TIMES PER DAY SOLD: 04/18/2020 [facility] 23 X 36 " 10/27/2019 12:00:00 AM EDT pad 300 APPLY TO BED NEEDED UP TO 10 TIMES PER DAY APPLY TO BED NEEDED UP TO 10 TIMES PER DAY SOLD: 11/09/2019 [facility] 23 X 36 " 10/27/2019 12:00:00 AM EDT pad 150 APPLY TO BED NEEDED UP TO 10 TIMES PER DAY APPLY TO BED NEEDED UP TO 10 TIMES PER DAY SOLD: 05/02/2020 [facility] 23 X 36 " 10/27/2019 12:00:00 AM EDT pad 150 APPLY TO BED NEEDED UP TO 10 TIMES PER DAY APPLY TO BED NEEDED UP TO 10 TIMES PER DAY SOLD: 04/04/2020 [facility] 7.5-325 mg 10/13/2019 12:00:00 AM EDT tablet 120 TAKE ONE TABLET BY MOUTH EVERY 6 HOURS NEEDED MAXIMUM DAILY DOSE = 4 TAKE ONE TABLET BY MOUTH EVERY 6 HOURS NEEDED MAXIMUM DAILY DOSE = 4 SOLD: 10/19/2019 [facility] 5 mg 10/12/2019 12:00:00 AM EDT tablet 180 TAKE ONE TABLET BY MOUTH TWICE A DAY TAKE ONE TABLET BY MOUTH TWICE A DAY SOLD: 07/18/2020 [facility] 2 mg 10/12/2019 12:00:00 AM EDT capsule 150 TAKE 1 CAPSULE BY MOUTH AFTER EACH LOOSE STOOL MAXIMUM DAILY DOSE = 5 CAPSULES TAKE 1 CAPSULE BY MOUTH AFTER EACH LOOSE STOOL MAXIMUM DAILY DOSE = 5 CAPSULES SOLD: 10/19/2019 [facility] 25 mg 10/12/2019 12:00:00 AM EDT capsule 30 TAKE ONE CAPSULE BY MOUTH EVERY DAY (BENADRYL) TAKE ONE CAPSULE BY MOUTH EVERY DAY (BENADRYL) SOLD: 020 [facility] 25 mg 10/12/2019 12:00:00 AM EDT capsule 30 TAKE ONE CAPSULE BY MOUTH EVERY DAY (BENADRYL) TAKE ONE CAPSULE BY MOUTH EVERY DAY (BENADRYL) SOLD: 020 [facility] 5 mg 10/12/2019 12:00:00 AM EDT tablet 180 TAKE ONE TABLET BY MOUTH TWICE A DAY TAKE ONE TABLET BY MOUTH TWICE A DAY SOLD: 10/19/2019 [facility] 5 mg 10/12/2019 12:00:00 AM EDT tablet 180 TAKE ONE TABLET BY MOUTH TWICE A DAY TAKE ONE TABLET BY MOUTH TWICE A DAY SOLD: 02/08/2020 [facility] 25 mg 10/12/2019 12:00:00 AM EDT capsule 30 TAKE ONE CAPSULE BY MOUTH EVERY DAY (BENADRYL) TAKE ONE CAPSULE BY MOUTH EVERY DAY (BENADRYL) SOLD: [facility] 25 mg 10/12/2019 12:00:00 AM EDT capsule 30 TAKE ONE CAPSULE BY MOUTH EVERY DAY (BENADRYL) TAKE ONE CAPSULE BY MOUTH EVERY DAY (BENADRYL) SOLD: [facility] 25 mg 10/12/2019 12:00:00 AM EDT capsule 30 TAKE ONE CAPSULE BY MOUTH EVERY DAY (BENADRYL) TAKE ONE CAPSULE BY MOUTH EVERY DAY (BENADRYL) SOLD: [facility] ELECTROLYTES/DEXTROSE 10/05/2019 12:00:00 AM EDT solution 3 000 DIRECTED NEEDED DIRECTED NEEDED SOLD: 10/11/2019 [facility] 125 mg 10/04/2019 12:00:00 AM EDT tablet,chewable 100 TAKE 1 TABLET BY MOUTH AFTER EACH MEAL AND BEFORE BED TAKE 1 TABLET BY MOUTH AFTER EACH MEAL A ND BEFORE BED SOLD: 10/11/2019 [facility] 125 mg 10/04/2019 12:00:00 AM EDT tablet,chewable 100 TAKE 1 TABLET BY MOUTH AFTER EACH MEAL AND BEFORE BED TAKE 1 TABLET BY MOUTH AFTER EACH MEAL A ND BEFORE BED SOLD: 02/08/2020 [facility] 125 mg 10/04/2019 12:00:00 AM EDT tablet,chewable 35 TAKE 1 TABLET BY MOUTH AFTER EACH MEAL AND BEFORE BED TAKE 1 TABLET BY MOUTH AFTER EACH MEAL A ND BEFORE BED SOLD: 01/01/2020 [facility] 125 mg 10/04/2019 12:00:00 AM EDT tablet,chewable 100 TAKE 1 TABLET BY MOUTH AFTER EACH MEAL AND BEFORE BED TAKE 1 TABLET BY MOUTH AFTER EACH MEAL A ND BEFORE BED SOLD: 01/18/2020 [facility] 125 mg 10/04/2019 12:00:00 AM EDT tablet,chewable 100 TAKE 1 TABLET BY MOUTH AFTER EACH MEAL AND BEFORE BED TAKE 1 TABLET BY MOUTH AFTER EACH MEAL A ND BEFORE BED SOLD: 03/21/2020 [facility] 800-160 mg 10/04/2019 12:00:00 AM EDT tablet 10 TAKE ONE TABLET BY MOUTH EVERY 12 HOURS TAKE ONE TABLET BY MOUTH EVERY 12 HOURS SOLD: 10/04/2019 [facility] 125 mg 10/04/2019 12:00:00 AM EDT tablet,chewable 100 TAKE 1 TABLET BY MOUTH AFTER EACH MEAL AND BEFORE BED TAKE 1 TABLET BY MOUTH AFTER EACH MEAL A ND BEFORE BED SOLD: 02/29/2020 [facility] 25 mg 09/28/2019 12:00:00 AM EDT tablet 90 TAKE ONE TABLET BY MOUTH EVERY 8 HOURS NEEDED FOR DIZZINESS TAKE ONE TABLET BY MOUTH EVERY 8 HOURS A S NEEDED FOR DIZZINESS SOLD: 02/15/2020 [facility] 25 mg 09/28/2019 12:00:00 AM EDT tablet 90 TAKE ONE TABLET BY MOUTH EVERY 8 HOURS NEEDED FOR DIZZINESS TAKE ONE TABLET BY MOUTH EVERY 8 HOURS A S NEEDED FOR DIZZINESS SOLD: 04/04/2020 [facility] 0.5 mg 09/28/2019 12:00:00 AM EDT tablet 60 TAKE ONE TABLET BY MOUTH TWICE A DAY MAXIMUM DAILY DOSE = 2 TABLETS TAKE ONE TABLET BY MOUTH TWICE A DAY MAX IMUM DAILY DOSE = 2 TABLETS SOLD: 10/04/2019 [facility] 25 mg 09/28/2019 12:00:00 AM EDT tablet 90 TAKE ONE TABLET BY MOUTH EVERY 8 HOURS NEEDED FOR DIZZINESS TAKE ONE TABLET BY MOUTH EVERY 8 HOURS A S NEEDED FOR DIZZINESS SOLD: 01/04/2020 [facility] 25 mg 09/28/2019 12:00:00 AM EDT tablet 90 TAKE ONE TABLET BY MOUTH EVERY 8 HOURS NEEDED FOR DIZZINESS TAKE ONE TABLET BY MOUTH EVERY 8 HOURS A S NEEDED FOR DIZZINESS SOLD: 11/23/2019 [facility] 25 mg 09/28/2019 12:00:00 AM EDT tablet 90 TAKE ONE TABLET BY MOUTH EVERY 8 HOURS NEEDED FOR DIZZINESS TAKE ONE TABLET BY MOUTH EVERY 8 HOURS A S NEEDED FOR DIZZINESS SOLD: 10/04/2019 [facility] benzonatate 200 MG Oral Capsule BENZONATATE 09/26/2019 12:00:00 AM EST capsule 30 TAKE ONE CAPSULE BY MOUTH THREE TIMES A DAY NEEDED FOR COUGH TAKE ONE CAPSULE BY MOUTH THREE TIMES A DAY NEEDED FOR COUGH SOLD: 09/28/2019 [facility] 7.5-325 mg 09/14/2019 12:00:00 AM EST tablet 120 TAKE ONE TABLET BY MOUTH EVERY 6 HOURS MAXIMUM DAILY DOSE = FOUR TABLETS TAKE ONE TABLET BY MOUTH EVERY 6 HOURS MAXIMUM DAILY DOSE = FOUR TABLETS SOLD: 09/14/2019 [facility] Guaifenesin 20 MG/ML Oral Solution Guaifenesin 08/31/2019 12:00:00 AM EST ORAL active [facility]ENT ([facility]) 4 mg 08/31/2019 12:00:00 AM EST tablet,disintegrating 4 5 TAKE ONE TABLET BY MOUTH EVERY 6 HOURS NEEDED FOR NAUSEA TAKE ONE TABLET BY MOUTH EVERY 6 HOURS NEEDED FOR NAUSEA SOLD: 10/19/2019 [facility] 100 mg/5 mL 08/31/2019 12:00:00 AM EST liquid 240 TAKE 10ML BY MOUTH TWO TIMES A DAY TAKE 10ML BY MOUTH TWO TIMES A DAY SOLD: 08/31/2019 [facility] 4 mg 08/31/2019 12:00:00 AM EST tablet,disintegrating 4 5 TAKE ONE TABLET BY MOUTH EVERY 6 HOURS NEEDED FOR NAUSEA TAKE ONE TABLET BY MOUTH EVERY 6 HOURS NEEDED FOR NAUSEA SOLD: 12/07/2019 [facility] 4 mg 08/31/2019 12:00:00 AM EST tablet,disintegrating 4 5 TAKE ONE TABLET BY MOUTH EVERY 6 HOURS NEEDED FOR NAUSEA TAKE ONE TABLET BY MOUTH EVERY 6 HOURS NEEDED FOR NAUSEA SOLD: 10/04/2019 [facility] 4 mg 08/31/2019 12:00:00 AM EST tablet,disintegrating 4 5 TAKE ONE TABLET BY MOUTH EVERY 6 HOURS NEEDED FOR NAUSEA TAKE ONE TABLET BY MOUTH EVERY 6 HOURS NEEDED FOR NAUSEA SOLD: 08/31/2019 [facility] 2.5 mg 08/22/2019 12:00:00 AM EST tablet 60 TAKE TWO TABLETS BY MOUTH AT BEDTIME (ZYPREXA) TAKE TWO TABLETS BY MOUTH AT BEDTIME (ZYPREXA) SOLD: 09/14/2019 [facility] 2.5 mg 08/22/2019 12:00:00 AM EST tablet 60 TAKE TWO TABLETS BY MOUTH AT BEDTIME (ZYPREXA) TAKE TWO TABLETS BY MOUTH AT BEDTIME (ZYPREXA) SOLD: 08/24/2019 [facility] 2.5 mg 08/22/2019 12:00:00 AM EST tablet 60 TAKE TWO TABLETS BY MOUTH AT BEDTIME (ZYPREXA) TAKE TWO TABLETS BY MOUTH AT BEDTIME (ZYPREXA) SOLD: 12/28/2019 [facility] 2.5 mg 08/22/2019 12:00:00 AM EST tablet 60 TAKE TWO TABLETS BY MOUTH AT BEDTIME (ZYPREXA) TAKE TWO TABLETS BY MOUTH AT BEDTIME (ZYPREXA) SOLD: 11/16/2019 [facility] 2.5 mg 08/22/2019 12:00:00 AM EST tablet 60 TAKE TWO TABLETS BY MOUTH AT BEDTIME (ZYPREXA) TAKE TWO TABLETS BY MOUTH AT BEDTIME (ZYPREXA) SOLD: 10/04/2019 [facility] 2.5 mg 08/22/2019 12:00:00 AM EST tablet 60 TAKE TWO TABLETS BY MOUTH AT BEDTIME (ZYPREXA) TAKE TWO TABLETS BY MOUTH AT BEDTIME (ZYPREXA) SOLD: 12/07/2019 [facility] 0.5 mg 08/17/2019 12:00:00 AM EST tablet 60 TAKE ONE TABLET BY MOUTH TWICE A DAY MAXIMUM DAILY DOSE = 2 TABLETS TAKE ONE TABLET BY MOUTH TWICE A DAY MAX IMUM DAILY DOSE = 2 TABLETS SOLD: 08/17/2019 [facility] 1 gram 07/27/2019 12:00:00 AM EST tablet 180 TAKE THREE TABLETS BY MOUTH TWICE A DAY MAY INCREASE DURING EPISODES OF EXTREME DIARRHEA MAXIMUM DAILY DOSE = 9 TABLETS TAKE THREE TABLETS BY MOUTH TWICE A DAY MAY INCREASE DURING EPISODES OF EXTREME DIARRHEA MAXIMUM DAILY DOSE = 9 TABLETS SOLD: 07/27/2019 [facility] 1 gram 07/27/2019 12:00:00 AM EST tablet 150 TAKE THREE TABLETS BY MOUTH TWICE A DAY MAY INCREASE DURING EPISODES OF EXTREME DIARRHEA MAXIMUM DAILY DOSE = 9 TABLETS TAKE THREE TABLETS BY MOUTH TWICE A DAY MAY INCREASE DURING EPISODES OF EXTREME DIARRHEA MAXIMUM DAILY DOSE = 9 TABLETS SOLD: 07/28/2020 [facility] 1 gram 07/27/2019 12:00:00 AM EST tablet 180 TAKE THREE TABLETS BY MOUTH TWICE A DAY MAY INCREASE DURING EPISODES OF EXTREME DIARRHEA MAXIMUM DAILY DOSE = 9 TABLETS TAKE THREE TABLETS BY MOUTH TWICE A DAY MAY INCREASE DURING EPISODES OF EXTREME DIARRHEA MAXIMUM DAILY DOSE = 9 TABLETS SOLD: 10/04/2019 [facility] 500 mg 07/24/2019 12:00:00 AM EST tablet 10 TAKE ONE TABLET BY MOUTH EVERY DAY TAKE ONE TABLET BY MOUTH EVERY DAY SOLD: 07/24/2019 [facility] 20 mg 07/24/2019 12:00:00 AM EST tablet 15 TAKE THREE TABLETS BY MOUTH EVERY DAY WITH FOOD TAKE THREE TABLETS BY MOUTH EVERY DAY WITH FOOD SOLD: 2019 [facility] 0.5 mg 07/13/2019 12:00:00 AM EST tablet 60 TAKE ONE TABLET BY MOUTH TWICE A DAY MAXIMUM DAILY DOSE = 2 TABLETS TAKE ONE TABLET BY MOUTH TWICE A DAY MAX IMUM DAILY DOSE = 2 TABLETS SOLD: 07/13/2019 [facility] 23 X 36 " 07/07/2019 12:00:00 AM EST pad 300 APPLY TO BED NEEDED UP TO 10 TIMES PER DAY APPLY TO BED NEEDED UP TO 10 TIMES PER DAY SOLD: 10/11/2019 [facility] 23 X 36 " 07/07/2019 12:00:00 AM EST pad 300 APPLY TO BED NEEDED UP TO 10 TIMES PER DAY APPLY TO BED NEEDED UP TO 10 TIMES PER DAY SOLD: 07/20/2019 [facility] 23 X 36 " 07/07/2019 12:00:00 AM EST pad 150 APPLY TO BED NEEDED UP TO 10 TIMES PER DAY APPLY TO BED NEEDED UP TO 10 TIMES PER DAY SOLD: 07/20/2019 [facility] 23 X 36 " 07/07/2019 12:00:00 AM EST pad 300 APPLY TO BED NEEDED UP TO 10 TIMES PER DAY APPLY TO BED NEEDED UP TO 10 TIMES PER DAY SOLD: 09/21/2019 [facility] 23 X 36 " 07/07/2019 12:00:00 AM EST pad 90 APPLY TO BED NEEDED UP TO 10 TIMES PER DAY APPLY TO BED NEEDED UP TO 10 TIMES PER DAY SOLD: 07/13/2019 [facility] 23 X 36 " 07/07/2019 12:00:00 AM EST pad 300 APPLY TO BED NEEDED UP TO 10 TIMES PER DAY APPLY TO BED NEEDED UP TO 10 TIMES PER DAY SOLD: 08/31/2019 [facility] 23 X 36 " 07/07/2019 12:00:00 AM EST pad 150 APPLY TO BED NEEDED UP TO 10 TIMES PER DAY APPLY TO BED NEEDED UP TO 10 TIMES PER DAY SOLD: 09/12/2019 [facility] 23 X 36 " 07/07/2019 12:00:00 AM EST pad 60 APPLY TO BED NEEDED UP TO 10 TIMES PER DAY APPLY TO BED NEEDED UP TO 10 TIMES PER DAY SOLD: 08/10/2019 [facility] 325 mg 07/06/2019 12:00:00 AM EST tablet 180 TAKE ONE TABLET BY MOUTH EVERY 3 HOURS NEEDED MAXIMUM DAILY DOSE = 6 TABLETS TAKE ONE TABLET BY MOUTH EVERY 3 HOURS NEEDED MAXIMUM DAILY DOSE = 6 TABLETS SOLD: 09/14/2019 [facility] 325 mg 07/06/2019 12:00:00 AM EST tablet 180 TAKE ONE TABLET BY MOUTH EVERY 3 HOURS NEEDED MAXIMUM DAILY DOSE = 6 TABLETS TAKE ONE TABLET BY MOUTH EVERY 3 HOURS NEEDED MAXIMUM DAILY DOSE = 6 TABLETS SOLD: 08/17/2019 [facility] 325 mg 07/06/2019 12:00:00 AM EST tablet 180 TAKE ONE TABLET BY MOUTH EVERY 3 HOURS NEEDED MAXIMUM DAILY DOSE = 6 TABLETS TAKE ONE TABLET BY MOUTH EVERY 3 HOURS NEEDED MAXIMUM DAILY DOSE = 6 TABLETS SOLD: 10/04/2019 [facility] 325 mg 07/06/2019 12:00:00 AM EST tablet 80 TAKE ONE TABLET BY MOUTH EVERY 3 HOURS NEEDED MAXIMUM DAILY DOSE = 6 TABLETS TAKE ONE TABLET BY MOUTH EVERY 3 HOURS NEEDED MAXIMUM DAILY DOSE = 6 TABLETS SOLD: 11/16/2019 [facility] 325 mg 07/06/2019 12:00:00 AM EST tablet 180 TAKE ONE TABLET BY MOUTH EVERY 3 HOURS NEEDED MAXIMUM DAILY DOSE = 6 TABLETS TAKE ONE TABLET BY MOUTH EVERY 3 HOURS NEEDED MAXIMUM DAILY DOSE = 6 TABLETS SOLD: 12/14/2019 [facility] 30 mg 06/13/2019 12:00:00 AM EST tablet 60 TAKE ONE TABLET BY MOUTH TWICE A DAY TAKE ONE TABLET BY MOUTH TWICE A DAY SOLD: 08/31/2019 [facility] 30 mg 06/13/2019 12:00:00 AM EST tablet 60 TAKE ONE TABLET BY MOUTH TWICE A DAY TAKE ONE TABLET BY MOUTH TWICE A DAY SOLD: 09/28/2019 [facility] 30 mg 06/13/2019 12:00:00 AM EST tablet 40 TAKE ONE TABLET BY MOUTH TWICE A DAY TAKE ONE TABLET BY MOUTH TWICE A DAY SOLD: 07/13/2019 [facility] 30 mg 06/13/2019 12:00:00 AM EST tablet 60 TAKE ONE TABLET BY MOUTH TWICE A DAY TAKE ONE TABLET BY MOUTH TWICE A DAY SOLD: 11/23/2019 [facility] 30 mg 06/13/2019 12:00:00 AM EST tablet 60 TAKE ONE TABLET BY MOUTH TWICE A DAY TAKE ONE TABLET BY MOUTH TWICE A DAY SOLD: 10/26/2019 [facility] 0.2 % 06/04/2019 12:00:00 AM EST drops 2 INSTILL ONE DROP IN EACH EYE ONCE DAILY DIRECTED INSTILL ONE DROP IN EACH EYE ONCE DAILY DIRECTED SO LD: 04/04/2020 [facility] 0.2 % 06/04/2019 12:00:00 AM EST drops 2 INSTILL ONE DROP IN EACH EYE ONCE DAILY DIRECTED INSTILL ONE DROP IN EACH EYE ONCE DAILY DIRECTED SO LD: 02/22/2020 [facility] 0.2 % 06/04/2019 12:00:00 AM EST drops 2 INSTILL ONE DROP IN EACH EYE ONCE DAILY DIRECTED INSTILL ONE DROP IN EACH EYE ONCE DAILY DIRECTED SO LD: 12/21/2019 [facility] DIAPER,BRIEF,ADULT, DISPOSABLE 06/01/2019 12:00:00 AM EST mi sc 240 CHANGE NEEDED UP TO 8 TIMES PER DAY CHANGE NEEDED UP TO 8 TIMES PER DAY SOLD: 08/31/2019 [facility] DIAPER,BRIEF,ADULT, DISPOSABLE 06/01/2019 12:00:00 AM EST mi sc 240 CHANGE NEEDED UP TO 8 TIMES PER DAY CHANGE NEEDED UP TO 8 TIMES PER DAY SOLD: 07/27/2019 [facility] DIAPER,BRIEF,ADULT, DISPOSABLE 06/01/2019 12:00:00 AM EST mi sc 240 CHANGE NEEDED UP TO 8 TIMES PER DAY CHANGE NEEDED UP TO 8 TIMES PER DAY SOLD: 10/11/2019 [facility] DIAPER,BRIEF,ADULT, DISPOSABLE 06/01/2019 12:00:00 AM EST mi sc 240 CHANGE NEEDED UP TO 8 TIMES PER DAY CHANGE NEEDED UP TO 8 TIMES PER DAY SOLD: 09/21/2019 [facility] DIAPER,BRIEF,ADULT, DISPOSABLE 06/01/2019 12:00:00 AM EST mi sc 240 CHANGE NEEDED UP TO 8 TIMES PER DAY CHANGE NEEDED UP TO 8 TIMES PER DAY SOLD: 07/16/2019 [facility] 200 mg calcium (500 mg) 05/18/2019 12:00:00 AM EDT tablet,ch ewable 180 TAKE 2 TABLETS BY MOUTH THREE TIMES A DAY TAKE 2 TABLETS BY MOUTH THREE TIMES A DAY SOLD: 10/26/2019 [facility] Cyclobenzaprine hydrochloride 10 MG Oral Tablet CYCLOBENZAPR INE HCL 05/18/2019 12:00:00 AM EDT tablet 60 TAKE ONE TABLET BY MOUTH TWICE A DAY NEEDED TAKE ONE TABLET BY MOUTH TWICE A DAY NEEDED SOLD: 10/04/2019 [facility] 200 mg calcium (500 mg) 05/18/2019 12:00:00 AM EDT tablet,ch ewable 180 TAKE 2 TABLETS BY MOUTH THREE TIMES A DAY TAKE 2 TABLETS BY MOUTH THREE TIMES A DAY SOLD: 07/13/2019 [facility] Cyclobenzaprine hydrochloride 10 MG Oral Tablet CYCLOBENZAPR INE HCL 05/18/2019 12:00:00 AM EDT tablet 60 TAKE ONE TABLET BY MOUTH TWICE A DAY NEEDED TAKE ONE TABLET BY MOUTH TWICE A DAY NEEDED SOLD: 09/14/2019 [facility] 200 mg calcium (500 mg) 05/18/2019 12:00:00 AM EDT tablet,ch ewable 180 TAKE 2 TABLETS BY MOUTH THREE TIMES A DAY TAKE 2 TABLETS BY MOUTH THREE TIMES A DAY SOLD: 08/31/2019 [facility] Cyclobenzaprine hydrochloride 10 MG Oral Tablet CYCLOBENZAPR INE HCL 05/18/2019 12:00:00 AM EDT tablet 60 TAKE ONE TABLET BY MOUTH TWICE A DAY NEEDED TAKE ONE TABLET BY MOUTH TWICE A DAY NEEDED SOLD: 07/13/2019 [facility] 200 mg calcium (500 mg) 05/18/2019 12:00:00 AM EDT tablet,ch ewable 180 TAKE 2 TABLETS BY MOUTH THREE TIMES A DAY TAKE 2 TABLETS BY MOUTH THREE TIMES A DAY SOLD: 09/28/2019 [facility] 125 mg 05/06/2019 12:00:00 AM EDT tablet,chewable 100 TAKE 1 TABLET BY MOUTH AFTEREACH MEAL AND BEFORE BED TAKE 1 TABLET BY MOUTH AFTEREACH MEAL AN D BEFORE BED SOLD: 07/20/2019 [facility] 125 mg 05/06/2019 12:00:00 AM EDT tablet,chewable 100 TAKE 1 TABLET BY MOUTH AFTEREACH MEAL AND BEFORE BED TAKE 1 TABLET BY MOUTH AFTEREACH MEAL AN D BEFORE BED SOLD: 08/10/2019 [facility] 125 mg 05/06/2019 12:00:00 AM EDT tablet,chewable 100 TAKE 1 TABLET BY MOUTH AFTEREACH MEAL AND BEFORE BED TAKE 1 TABLET BY MOUTH AFTEREACH MEAL AN D BEFORE BED SOLD: 08/31/2019 [facility] 25 mg 03/30/2019 12:00:00 AM EDT capsule 30 TAKE ONE CAPSULE BY MOUTH EVERY DAY (BENADRYL) TAKE ONE CAPSULE BY MOUTH EVERY DAY (BENADRYL) SOLD: [facility] 4 mg 03/30/2019 12:00:00 AM EDT tablet,disintegrating 4 5 TAKE ONE TABLET BY MOUTH EVERY 6 HOURS NEEDED FOR NAUSEA TAKE ONE TABLET BY MOUTH EVERY 6 HOURS NEEDED FOR NAUSEA SOLD: 07/13/2019 [facility] 25 mg 03/30/2019 12:00:00 AM EDT capsule 30 TAKE ONE CAPSULE BY MOUTH EVERY DAY (BENADRYL) TAKE ONE CAPSULE BY MOUTH EVERY DAY (BENADRYL) SOLD: 020 [facility] 137 mcg (0.1 %) 03/18/2019 12:00:00 AM EDT aerosol,spray 30 SPRAY TWO SPRAYS IN ONE NOSTRIL EVERY DAY SPRAY TWO SPRAYS IN ONE NOSTRIL EVERY DAY SOLD: 08/17/2019 [facility] ELECTROLYTES/DEXTROSE 03/18/2019 12:00:00 AM EDT solution 3 000 TAKE NEEDED TAKE NEEDED SOLD: 08/31/2019 [facility] 137 mcg (0.1 %) 03/18/2019 12:00:00 AM EDT aerosol,spray 30 SPRAY TWO SPRAYS IN ONE NOSTRIL EVERY DAY SPRAY TWO SPRAYS IN ONE NOSTRIL EVERY DAY SOLD: 11/23/2019 [facility] 137 mcg (0.1 %) 03/18/2019 12:00:00 AM EDT aerosol,spray 30 SPRAY TWO SPRAYS IN ONE NOSTRIL EVERY DAY SPRAY TWO SPRAYS IN ONE NOSTRIL EVERY DAY SOLD: 10/04/2019 [facility] ELECTROLYTES/DEXTROSE 03/18/2019 12:00:00 AM EDT solution 3 000 TAKE NEEDED TAKE NEEDED SOLD: 07/13/2019 [facility] 137 mcg (0.1 %) 03/18/2019 12:00:00 AM EDT aerosol,spray 30 SPRAY TWO SPRAYS IN ONE NOSTRIL EVERY DAY SPRAY TWO SPRAYS IN ONE NOSTRIL EVERY DAY SOLD: 07/20/2019 [facility] 25 mg 03/10/2019 12:00:00 AM EDT tablet 90 TAKE ONE TABLET BY MOUTH EVERY 8 HOURS NEEDED FOR DIZZINESS TAKE ONE TABLET BY MOUTH EVERY 8 HOURS A S NEEDED FOR DIZZINESS SOLD: 08/17/2019 [facility] 2.5 mg 01/22/2019 12:00:00 AM EDT tablet 60 TAKE TWO TABLETS BY MOUTH AT BEDTIME (ZYPREXA) TAKE TWO TABLETS BY MOUTH AT BEDTIME (ZYPREXA) SOLD: 07/13/2019 [facility] 50 mcg/actuation 12/01/2018 12:00:00 AM EDT spray,suspension 16 SPRAY TWO SPRAYS IN EACH NOSTRIL EVERY DAY SPRAY TWO SPRAYS IN EACH NOSTRIL EVERY DAY SOLD: 07/20/2019 [facility] 5 mg 07/28/2018 12:00:00 AM EST tablet 180 TAKE ONE TABLET BY MOUTH TWICE A DAY TAKE ONE TABLET BY MOUTH TWICE A DAY SOLD: 07/20/2019 [facility] Insurance Providers Payer name Policy type / Coverage type Policy ID Covered democrat ID Covered democrat's relationship to laura Policy Laura Plan Information EMEDNY [id number] SP [id number] MEDICARE [id number] SP [id number] MEDICARE PART A -O/P [id number] 18 [id number] MEDICAID -O/P EMERGENCY ROOM [id number] MEDICARE C [id number] S [id number] MEDICAID M [id number] S [id number] MEDICARE PART A -O/P [id number] 18 [id number] MEDICARE PART A -O/P [id number] MEDICAID [id number] SP [id number] MEDICAID [id number] SP [id number] Medicaid Medigap Part B [id number] Self [id number] Medicare [place] Medicare Primary [id number] Self [id number] [place] B [id number] Self [id number] BS [place] Medig[place] Part B [id number] Self [id number] Medicaid Medigap Part B [id number] Self [id number] Medicare [place] Medicare Primary [id number] Self [id number] Medicaid [place] Medig[place] Part B [id number] Self [id number] Medicare - NGS Medicare Primary [id number] Self [id number] [place] Medigap Part B [id number] Self [id number] MEDICARE [id number] SP [id number] [facility] [id number] Self [id number] Medicare Pending [facility] To [facility] Govt Serv Medicare Primary [id number] Self [id number] ANSI-Medicare Part B [id number] ANSI-Medicaid [id number] ANS-Medicaid [id number] ANS-Medicare Part B [id number] ANS-Medicaid [id number] ANSI-Medicare Part B [id number] Medicaid [facility] Part B [id number] Self [id number] [facility] Primary [id number] Self [id number] ANSI-Medicare Part B [id number] ANS-Medicaid [id number] ANS-Medicare Part B [id number] ANSI-Medicaid [id number] ANSI-Medicare Part B [id number] ANSI-Medicaid [id number] ANSI-Medicare Part B [id number] ANSI-Medicaid [id number] ANSI-Medicaid [id number] ANSI-Medicare Part B [id number] MEDICARE [id number] SP [id number] ANSI-Medicare Part B [id number] ANSI-Medicaid [id number] Medicaid Medigap Part B [id number] Self [id number] Medicare [place] [employer]t [employer] Medicare Primary [id number] Self [id number] [place] Med[place] Part B [id number] Self [id number] Medicare - [place] Medicare Primary [id number] Self [id number] ANSI-Medicaid [id number] ANSI-Medicare Part B [id number] ANSI-Medicare Part B [id number] ANSI-Medicaid [id number] MEDICARE C [id number] S [id number] Medicaid Medigap Part B [id number] Self [id number] Medicare [place] Medicare Primary [id number] Self [id number] Medicaid Medigap Part B [id number] Self [id number] Medicare [place] Medicare Primary [id number] Self [id number] Medicaid Medigap Part B [id number] Self [id number] Medicare [place] Medicare Primary [id number] Self [id number] Medicaid Medigap Part B [id number] Self [id number] Medicare [place] Medicare Primary [id number] Self [id number] [facility] C [id number] S [id number] MEDICARE [id number] SP [id number] BS [place] Medig[place] Part B Self BS [place] Commercial [phone] Self [phone] Medicaid Medigap Part B 1 1 Self 1 1 Medicare [place] Medicare Primary Self BS [place] Medigap Part B Self BS [place] Medigap Part B [id number] Self [id number] [place] Part B Self Medicare [facility] Medicare Primary Self BS [place] [facility] Part B Self [place] 306/806 NOT ACTIVE SP NOT ACTIVE MEDICARE [id number] SP [id number] SELF PAY UNAVAILABLE SP UNAVAILA BLE [place] 306/806 [id number] SP [id number] [place] BCBS S [id number] S [id number] [place] P[place] 302/307 [id number] SP [id number] A [id number] Problems, Conditions, and Diagnoses Code Display Name Description Problem Type Effective Dates Data Source(s) Z70155 Personal history of urinary (tract) infe ctions Personal history of urinary (tract) infections Diagnosis 07/01/2020 06:35:00 AM [facility] 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 long-term (current) use of antithrombotics/antiplatelets Diagnosis 020 06:35:00 AM [facility] G8929 Other chronic pain Other chronic pain Diagnosis 06/2020 06:35:00 AM [facility] E119 Type 2 diabetes mellitus without complic ations Type 2 diabetes mellitus without complications Diagnosis 07/01/2020 06:35:00 AM [facility] [id number] Pain in right ankle and joints of right foot Pain in right ankle and joints of right foot Diagnosis 07/01/2020 06:35:00 AM [facility] N3000 Acute cystitis without hematuria Acute cystitis without hematuria Diagnosis 07/01/2020 06:35:00 AM [facility] R300 Dysuria Dysuria Diagnosis 07/01/2020 06:35:00 AM [facility] [id number] Unspecified place in unspeci fied non-institutional (private) residence as the place of occurrence of the external cause Unspecified place in unspecified non-institutional (private) residence as the place of occurrence of the external cause Diagnosis 03/18/2020 04:56:00 AM EDT [facility] [id number] Fall (on) (from) other stairs and steps, initial encounter Fall (on) (from) other stairs and steps, initial encounter Diagnosis 03/18 04:56:00 AM EDT [facility] [id number] Type 2 diabetes mellitus with hypoglycem ia without coma Type 2 diabetes mellitus with hypoglycemia without coma Diagnosis 03/18/2020 04:56:00 AM EDT [facility] [id number] Primary osteoarthritis, right ankle and foot Primary osteoarthritis, right ankle and foot Diagnosis 03/18/2020 04:56:00 AM EDT [facility] [id number] Unspecified injury of right ankle, initi al encounter Unspecified injury of right ankle, initial encounter Diagnosis 03/18/2020 04:56:00 AM EDT [facility] [id number] Overexertion from prolonged static or awkward postures, initial encounter Overexertion from prolonged static or aw kward postures, initial encounter Diagnosis [id number] Sp[facility] of unspecified ligament of right ankle, initial encounter Sprain of unspecified ligament of right ankle, initial encounter Diagnosis 03/02/2020 12:27:00 PM EDT [facility] Surgeries/Procedures Procedure Description Date Indications Data Source(s) Colonoscopy 04/26/2020 12:00:00 AM EDT [facility] ([facility]) Mammogram 09/30/2019 12:00:00 AM EDT [facility] ([facility]) Mammogram 09/10/2019 12:00:00 AM EST [facility] ([facility]) Results ID Date Data Source [id number] 08/12/2020 08:01:00 AM EST [facility] ([facility]) Name Value Range Interpretation Code Description Data Melanie rce(s) Supporting Document(s) Reflex Urine Culture Laboratory test result [facility] ([facility]) <content>FULL REPORT IN LAB NOTES ([facility] a nd [facility]).</content>
<content></content>
<content>ORGANISM 1: ESCHERICHIA COLI</content>
<content></content>
<content>COLONY COUNT > 100,000</content>
<content></content>
<content></content>
<content>O RGANISM 1: ESCHERICHIA COLI</content>
<content></content>
<content> ESCHERICHIA COLI: REACTION</content>
<content>TRIMETHOPRIM/SULFAMETHOXAZOLE IV 160mg TMP & 800mg SMXq6h <=20 S</content>
<content> TRIMETHOPRIM/SULFAMETHOXAZOLE PO Bactrim DS Bid <=20 S</content>
<content>AMPICILLIN IV 500mg q6h >=32 R</content>
<content>AMPICILLIN PO 500mg q6h fasting >=32 R</content>
<content>GENTAMICIN IV 80mg q8h <=1 S</content>
<content>NITROFURANTOIN PO 100mg BID <=16 S</content>
<content>CEFAZOLIN IV 1gm q8h <=4 S</content>
<content>LEVOFLOXACIN IV 500mg qd >=8 R</content>
<content>LEVOFLOXACIN PO 250mg qd >=8 R</content>
<content>LEVOFLOXACIN PO 500mg qd >=8 R</content>
<content>TOBRAMYCIN IV 80mg q8h <=1 S</content>
<content> CEFTRIAXONE IV 1gm q24h <=1 S</content>
<content>CEFTAZIDIME IV 1gm q8h <=1 S</content>
<content>AMPICILLIN/SULBACTAM IV 1.5g q6h >=32 R</content>
<content>PIPERACILLIN/TAZOBACTAM IV 2.25 gm q6h <=4 S</content>
<content>AZTREONAM IV 1gm q8h <=1 S</content>
<content>ERTAPENEM IV 1gm qd <=0.5 S</content>
<content> MEROPENEM IV 1 gm q8h <=0.25 S</content>
<content>MEROPENEM IV 500 mg q8h <=0.25 S</content>
<content>TIGECYCLINE IV 50mg q12h <=0.5 S</content>
<content>CEFEPIME IV 1 gm q12h <=1 S</content>
<content>CEFEPIME IV 2 gm q12h <=1 S</content>
<content>EXTD BRD SPCTRM BETA LACTAMASE IV NEGATIVE FOR ESBL</content>
<content></content> ID Date Data Source [id number] 08/12/2020 08:01:00 AM EST [facility] Name Value Range Interpretation Code Description Data Melanie rce(s) Supporting Document(s) Color, Urine RFX Laboratory test result [facility]) Appearance, Urine RFX Laboratory test [facility] Protein, Urine Auto RFX Laboratory test result [facility]) PH,Urine RFX 7.0 units 5.0-9.0 [facility] ([facility]) Specific Dawson Ur Auto RFX 1.008 1.002-1.035 [facility] Ketone, Urine Auto RFX Laboratory test result [facility] ([facility]) Glucose, Urine (Ua) Auto RFX Laboratory test result [facility]) Urobilinogen, Urine Auto RFX 0.2 mg/dL 0.0-2.0 [facility]) Nitrite, Urine Auto RFX Laboratory test result [facility] ([facility]) Bilirubin, Urine Auto RFX Laboratory test result [facility] ([facility]) Leukocyte Esterase Ur Auto RFX Laboratory test result [facility] ([facility]) WBC, Urine Auto RFX 9 /HPF 0-3 [facility] ([facility] Blood, Urine Blood RFX Laboratory test result [facility] ([facility]) RBC, Urine Auto RFX 9 /HPF 0-3 [facility] ([facility] Squam Epithelial Cell Ur Aurfx 5 /HPF 0-6 [facility] ([facility]) Mucus, Urine RFX Laboratory test result [facility] ([facility]) Bacteria, Urine Auto RFX Laboratory test result [facility] ([facility]) Hyaline Cast, Urine Auto RFX 0 /LPF 0-1 M [facility] ([facility]) Amorphous Sediment RFX Laboratory test result [facility] ([facility]) ID Date Data Source [id number] 08/12/2020 07:52:00 AM EST [facility] ([facility] Name Value Range Interpretation Code Description Data Melanie rce(s) Supporting Document(s) Gats Culture (Neg Strep SCR) Laboratory test result [facility] ([facility]) FULL REPORT IN LAB NOTES ([facility] and [facility] ). NEGATIVE FOR STREP PYOGENES (GROUP A) ID Date Data Source [id number] 08/12/2020 06:51:00 AM EST [facility] ([facility] Name Value Range Interpretation Code Description Data Melanie rce(s) Supporting Document(s) Influenza A Amplification Laboratory test result [facility] ([facility]) Negative results do not preclude influen za or RSV virus infection and should not be used as the sole basis for treatment or other patient management decisions. Influenza B Amplification Laboratory test result [facility] ([facility] Negative results do not preclude influen za or RSV virus infection and should not be used as the sole basis for treatment or other patient management decisions. RSV Amplification Laboratory test result [facility] ([facility] Negative results do not preclude influen za or RSV virus infection and should not be used as the sole basis for treatment or other patient management decisions. Laboratory test finding (navigational concept) Laboratory test result [facility] ([facility]) A false negative result may occur if a s pecimen is improperly collected, transported or handled. False [...] pathogens. DISCLAIMER: Testing was performed using the [employer] SARS-CoV-2 test. This test was developed and its performance characteristics determined by [employer]. This test has not been FDA cleared [...] the authorization is terminated or revoked sooner. ID Date Data Source [id number] 08/12/2020 06:51:00 AM EST [facility] Name Value Range Interpretation Code Description Data Melanie rce(s) Supporting Document(s) SARS coronavirus 2 RNA [Presence] in Res piratory specimen by [facility] with probe detection NEGATIVE [facility] This lab was ordered by [facility] a nd reported by [facility]. ID Date Data Source [id number] 07/22/2020 04:54:00 AM EST [facility] ([facility]) Name Value Range Interpretation Code Description Data Melanie rce(s) Supporting Document(s) Reflex Urine Culture Laboratory test result [facility] ([facility]) <content>FULL REPORT IN LAB NOTES ([facility] a nd [facility]).</content>
<content></content>
<content>ORGANISM 1: ESCHERICHIA COLI</content>
<content></content>
<content>COLONY COUNT >100,000</content>
<content></content>
<content>ORGANISM 2: ENTEROCOCCUS FAECALIS</content>
<content></content>
<content>COLONY COUNT 40,000</content>
<content> </content>
<content></content>
<content>ORGANISM 1: ESCHERICHIA COLI</content>
<content>ORGANISM 2: ENTEROCOCCUS FAECALIS</content>
<content></content>
<content>ESCHERICHIA COLI: REACTION</content>
<content>TRIMETHOPRIM/SULFAMETHOXAZOLE IV 160mg TMP & 800mg SMXq6h <=20 S</content>
<content> TRIMETHOPRIM/SULFAMETHOXAZOLE PO Bactrim DS Bid <=20 S</content>
<content>AMPICILLIN IV 500mg q6h >=32 R</content>
<content>AMPICILLIN PO 500mg q6h fasting >=32 R</content>
<content>GENTAMICIN IV 80mg q8h <=1 S</content>
<content>NITROFURANTOIN PO 100mg BID 64 I</content>
<content>CEFAZOLIN IV 1gm q8h <=4 S</content>
<content>LEVOFLOXACIN IV 500mg qd >=8 R</content>
<content>LEVOFLOXACIN PO 250mg qd >=8 R</content>
<content>LEVOFLOXACIN PO 500mg qd >=8 R</content>
<content>TOBRAMYCIN IV 80mg q8h <=1 S</content>
<content> CEFTRIAXONE IV 1gm q24h <=1 S</content>
<content>CEFTAZIDIME IV 1gm q8h <=1 S</content>
<content>AMPICILLIN/SULBACTAM IV 1.5g q6h 16 I</content>
<content>PIPERACILLIN/TAZOBACTAM IV 2.25 gm q6h <=4 S</content>
<content>AZTREONAM IV 1gm q8h <=1 S</content>
<content>ERTAPENEM IV 1gm qd <=0.5 S</content>
<content> MEROPENEM IV 1 gm q8h <=0.25 S</content>
<content>MEROPENEM IV 500 mg q8h <=0.25 S</content>
<content>TIGECYCLINE IV 50mg q12h <=0.5 S</content>
<content>CEFEPIME IV 1 gm q12h <=1 S</content>
<content>CEFEPIME IV 2 gm q12h <=1 S</content>
<content>EXTD BRD SPCTRM BETA LACTAMASE IV NEGATIVE FOR ESBL</content>
<content></content>
<content>ENTEROCOCCUS FAECALIS: REACTION</content>
<content>TETRACYCLINE PO 250 mg qid >=16 R</content>
<content>PENICILLIN G IV 1 mu q6H 2 S</content>
<content>PENICILLIN G IV 1 mu q6h 2 S</content>
<content>PENICILLIN G PO 250mg q6h fasting 2 S</content>
<content>AMPICILLIN IV 500mg q6h <=2 S</content>
<content>AMPICILLIN PO 500mg q6h fasting <=2 S</content>
<content>ERYTHROMYCIN IV 500mg q6h >=8 R</content>
<content>ERYTHROMYCIN PO 500mg q6h >=8 R</content>
<content>GENTAMICIN 500 IV 80mg q8h R</content>
<content>NITROFURANTOIN PO 100mg BID <=16 S</content>
<content>LEVOFLOXACIN IV 500mg qd >=8 R</content>
<content> LEVOFLOXACIN PO 250mg qd >=8 R</content>
<content>LEVOFLOXACIN PO 500mg qd >=8 R</content>
<content>CIPROFLOXACIN IV 400mg bid >=8 R</content>
<content>CIPROFLOXACIN PO 500mg q12h >=8 R</content>
<content>VANCOMYCIN IV 500mg q8h 1 S</content>
<content>LINEZOLID (ZYVOX) IV 600MG Q12HR 1 S</content>
<content> LINEZOLID (ZYVOX) PO 600MG Q12HR 1 S</content>
<content></content> ID Date Data Source [id number] 07/22/2020 04:54:00 AM EST [facility] ([facility]) Name Value Range Interpretation Code Description Data Melanie rce(s) Supporting Document(s) Color, Urine RFX Laboratory test result [facility] ([facility]) Appearance, Urine RFX Laboratory test result [facility] ([facility]) PH,Urine RFX 7.0 units 5.0-9.0 [facility] ([facility]) Specific Dawson Ur Auto RFX 1.005 1.002-1.035 [facility] ([facility]) Protein, Urine Auto RFX Laboratory test result [facility] ([facility]) Glucose, Urine (Ua) Auto RFX Laboratory test result [facility] ([facility]) Ketone, Urine Auto RFX Laboratory test result [facility] ([facility]) Urobilinogen, Urine Auto RFX 0.2 mg/dL 0.0-2.0 [facility] ([facility]) Bilirubin, Urine Auto RFX Laboratory test result [facility] ([facility]) Nitrite, Urine Auto RFX Laboratory test result [facility] ([facility]) Leukocyte Esterase Ur Auto RFX Laboratory test result [facility] ([facility]) Blood, Urine Blood RFX Laboratory test result [facility] ([facility]) WBC, Urine Auto RFX 11 /HPF 0-3 [facility] ([facility]) Bacteria, Urine Auto RFX Laboratory test result [facility] ([facility]) RBC, Urine Auto RFX 1 /HPF 0-3 [facility] ([facility]) Squam Epithelial Cell Ur Aurfx 0 /HPF 0-6 [facility] ([facility]) Mucus, Urine RFX Laboratory test result [facility] ([facility]) Hyaline Cast, Urine Auto RFX 0 /LPF 0-1 M [facility] ([facility]) ID Date Data Source [id number] 07/01/2020 06:35:00 AM EST [facility] 1 OrderSheet [facility] Emergency Department [address] [place] [address] Phone #: ext- [phone] 07/01/2020 06:35 Patient: FABIANO RAMIREZ Sex: F : 1955 Age: 64yWEIGHT:76.2 kg (M)ALLERGIES: Darvacet, Demerol, MicrodentinCHIEF COMPLAINT: dysuriaDIAGNOSIS: Urinary tract infectious diseaseLAB ORDERSOrder Description Priority Entered Acknowledged InitialedUrinalysis (Clean STAT 06:47 07/01/2020 06:54 Tamia Hemphill) Tamia EganNFreya R.NFreya; Per protocol; Henri Boyle PhysicianCulture, Urine STAT 07:31 07/01/2020 07:35 Antionette(Urine, Clean Xavier Keenan) Physician;DIAGNOSTIC STUDY ORDERSOrder Description Priority Entered Acknowledged InitialedMEDICATION/IV/DRIP/FLUID ORDERSOrder Description Priority Entered Acknowledged InitialedGENERAL ORDERSOrder Description Priority Entered Acknowledged InitialedSplint (Aircast) R 06:49 07/01/2020 06:50 Tamia Clements RN; Starr Rollins Verbal order per; Xavier Robertson Physician[Electronically signed by Liset Adan (07:46 07/01/2020)][Electronically signed by Xavier Robertson Physician (08:41 07/01/2020)][Electronically locked by Liset Adan (07:46 07/01/2020)] Name Value Range Interpretation Code Description Data Melanie rce(s) Supporting Document(s) ID Date Data Source [id number] 07/01/2020 06:35:00 AM EST [facility] 1 Medication Reconciliation Report [facility] Emergency Department [address] [place] [address] Phone #: ext- [phone] 07/01/2020 06:35 Patient: FABIANO RAMIREZ Sex: F : 1955 Age: 64yWeight: 76.2 kgHeight/Length: 59 in.BMI: 34.0ALLERGIES: Darvacet, Demerol, MicrodentinThe patient's Home Medications are listed below:CONTINUE TAKING THE FOLLOWING MEDICATIONS: Albuterol Sulfate Inhalation 2 unit doses Eliquis Oral HYDROcodone-Acetaminophen Oral (7.5-325 mg/15mL), prn KlonoPIN Oral 0.25 mg, at bedtime LaMICtal Oral (25 mg), 2x a day Meclizine HCl Oral 50 mg, 2x a day MiraLax Oral 1 packet Motrin IB Oral 400, prn Potassium Chloride Oral (20 meq), 2x a day Promethazine HCl Oral (25 mg), prn Sudafed Oral 60 mg, 2x a day ZyPREXA Oral (10 mg), at bedtimeThe source(s) of the original Home Medication information:Not obtained.The following Medications were given to the patient in the Emergency Department: 2 Medication Reconciliation Report [facility] Emergency Department [address] [place] [address] Phone #: ext- [phone] 07/01/2020 06:35 Patient: FABIANO RAMIREZ Sex: F : 1955 Age: 64yNone.The following Medications were prescribed to the patient:ciprofloxacin 250 mg tablet Take 1 tablet twice a day for 7 days -- Dispense 14 tablet. Refills: 0.Substitution permitted.Pharmacy - [id number] - [address] ; [place] [address]. . -- Xavier Robertson, Physician Name Value Range Interpretation Code Description Data Melanie rce(s) Supporting Document(s) ID Date Data Source [id number] 07/01/2020 06:35:00 AM EST [facility] 1 Medication Administration Record [facility] Emergency Department [address] [place] [address] Phone #: ext- [phone] 07/01/2020 06:35 Patient: FABIANO RAMIREZ Sex: F : 1955 Age: 64yWeight: 76.2 kgHeight/Length: 59 inBMI: 34ALLERGIES: Darvacet, Demerol, MicrodentinDate/Time Medication Administered Medication Ordered Name Value Range Interpretation Code Description Data Melanie rce(s) Supporting Document(s) ID Date Data Source [id number] 07/01/2020 06:35:00 AM EST [facility] 1 General Instructions [facility] Emergency Department [address] [place] [address] Phone #: ext- [phone] 07/01/2020 06:35 Patient: FABIANO RAMIREZ Sex: F : 1955 Age: 64yAcute urinary tract infection with cystitis. No hem aturia.Chronic right ankle pain.INSTRUCTIONSDrink plenty of fluids.Warnings: GENERAL WARNINGS: Return or contact your physician immediately if your conditionworsens or changes unexpectedly, if not improving as expected, or if other problems arise.Your Current Medications: Your current home medications have been reviewed.CONTINUE TAKING THE FOLLOWING MEDICATIONS:Albuterol Sulfate Inhalation : 2 unit doses.HYDROcodone-Acetaminophen Oral : Solution 7.5-325 mg/15mL, prn.LaMICtal Oral : Tablet 25 mg, 2x a day.MiraLax Oral : 1 packet.Motrin IB Oral : 400, prn.Potassium Chloride Oral : Packet 20 meq, 2x a day.ZyPREXA Oral : Tablet 10 mg, at bedtime.Eliquis Oral.KlonoPIN Oral : 0.25 mg, at bedtime.Meclizine HCl Oral : 50 mg 2x a day.Promethazine HCl Oral : Tablet 25 mg, prn.Sudafed Oral : 60 mg 2x a day.Prescription Medications:ciprofloxacin 250 mg tablet Take 1 tablet twice a day for 7 days -- Dispense 14 tablet. Refills: 0.Substitution permitted.Pharmacy - [id number] - [address] ; [place] [address]. .Follow-up:Follow up with your healthcare provider in four days. Call for an appointment.Understanding of the discharge instructions v erbalized by patient. ADDITIONAL INFORMATION 2 General Instructions [facility] Emergency Department [address] [place] [address] Phone #: ext- [phone] 07/01/2020 06:35 Patient: FABIANO RAMIREZ Sex: F : 1955 Age: 64yBladder Infection, Female (Adult)Urine normally doesn't have any germs (bacteria) in it. But bacteria can get into the urinary tract fromthe skin around the rectum. Or they can travel in the blood from other parts of the body. Once theyare in your urinary tract, they can cause infection in these areas: The urethra (urethritis) The bladder (cystitis) The kidneys (pyelonephritis)The most common place for an infection is in the bladder. This is called a bladder infection. This isone of the most common infections in women. Most bladder infections are easily treated. They arenot serious unless the infection spreads to the kidney.The terms bladder infection, UTI, and cystitis are often used to describe the same thing. But they arenot always the same. Cystitis is an inflammation of the bladder. The most common cause of cystitis isan infection.SymptomsThe infection causes inflammation in the urethra and bladder. This causes many of the symptoms.The most common symptoms of a bladder infection are: Pain or burning when urinating 3 General Instructions [facility] Emergency Department [address] [place] [address] Phone #: ext- [phone] 07/01/2020 06:35 Patient: FABIANO RAMIREZ Sex: F : 1955 Age: 64y Having to urinate more often than normal Urgent need to urinate Only a small amount of urine comes out Blood in urine Belly (abdominal) discomfort. This is often in the lower belly above the pubic bone. Cloudy urine Strong- or bad-smelling urine Unable to urinate (urinary retention) Unable to hold urine in (urinary incontinence) Fever Loss of appetite Confusion (in older adults)CausesBladder infections are not contagious. You can't get one from someone else, from a toilet seat, orfrom sharing a bath.The most common cause of bladder infections is bacteria from the bowels. The bacteria get onto theskin around the opening of the urethra. From there, they can get into the urine. Then they travel up tothe bladder, causing inflammation and infection. This often happens because of: Wiping incorrectly after urinating. Always wipe from front to back. Bowel incontinence Procedures such as having a catheter put in Older age Not emptying your bladder. This can give bacteria a chance to grow in your urine. Fluid loss (dehydration) Constipation Having sex 4 General In structions [facility] Emergency Department [address] [place] [address] Phone #: ext- [phone] 07/01/2020 06:35 Patient: FABIANO RAMIREZ Sex: F : 1955 Age: 64y Using a diaphragm for controlTreatmentBladder infections are diagnosed by a urine test and urine culture. They are treated with antibiotics.They often clear up quickly without problems. Treatment helps prevent a more serious kidneyinfection.MedicinesMedicines can help in the treatment of a bladder infection: Take antibiotics until they are used up, even if you feel better. It's important to finish them to make sure the in fection has cleared. You can use acetaminophen or ibuprofen for pain, fever, or discomfort, unless another medicine was prescribed. If you have long-term (chronic) liver or kidney disease, talk with your healthcare provider before using these medicines. Also talk with your provider if you've ever had a stomach ulcer or GI (gastrointestinal) bleeding, or are taking blood-thinner medicines. If you are given phenazopydridine to reduce burning with urination, it will make your urine a bright orange color. This can stain clothing.Care and preventionThese self-care steps can help prevent future infections: Drink plenty of fluids. This helps to prevent dehydration and flush out your bladder. Do this unless you must restrict fluids for other health reasons, or your healthcare provider told you not to. Clean yourself correctly after going to the bathroom. Wipe from front to back after using the toilet. This helps prevent the spread of bacteria. Urinate more often. Don't try to hold urine in for a long time. Wear loose-fitting clothes and cotton underwear. Don't wear tight-fitting pants. Improve your diet and prevent constipation. Eat more fresh fruits and vegetables, and fiber. Eat less junk foods and fatty foods. Don't have sex until your symptoms are gone. Don't have caffeine, alcohol, and spicy foods. These can irritate your bladder. Urinate right after you have sex to flush out your bladder. 5 General Instructions [facility] Emergency Department [address] [place] [address] Phone #: sqk- [phone] 07/01/2020 06:35 Patient: FAIBANO RAMIREZ Sex: F : 1955 Age: 64y If you use control pills and have frequent bladder infections, discuss it with your healthcare provider.Follow-up careCall your healthcare provider if all symptoms are not gone after 3 days of treatment. This is especiallyimportant if you have repeat infections.If a culture was done, you will be told if your treatment needs to be changed. If directed, you cancall to find out the results.If X-rays were done, you will be told if the results will affect your treatment.Call 911Call 911 if any of the following occur: Trouble breathing Hard to wake up or confusion Fainting (loss of consciousness) Fast heart rateWhen to get medical adviceCall your healthcare provider right away if any of these occur: Fever of 100.4F (38.0C) or higher, or as directed by your healthcare provider Symptoms are not better after 3 days of treatment Back or belly pain that gets worse Repeated vomiting, or unable to keep medicine down Weakness or dizziness Vaginal discharge Pain, redness, or swelling in the outer vaginal area (labia) [id number] [employer]. [address] [place] [address]. All rights reserved. This information is not intended as asubstitute for professional medical care. Always follow your healthcare professional's instructions. You have been given the following additional information: Bladder Infection, Female (Adult) 6 General Instructions [facility] Emergency Department [address] [place] [address] Phone #: ext- [phone] 07/01/2020 06:35 Patient: FABIANO RAMIREZ Sex: F : 1955 Age: 64y(Electronically signed by Xavier Robertson, Physician 07/01/2020 08:41) Name Value Range Interpretation Code Description Data Melanie rce(s) Supporting Document(s) ID Date Data Source [id number] 07/01/2020 06:35:00 AM EST [facility] 1 Clinical Report - Nurses [facility] Emergency Department [address] [place] [address] Phone #: ext- [phone] 07/01/2020 06:35 Patient: FABIANO RAMIREZ Sex: F : 1955 Age: 64yTRIAGEArrived by EMS. Historian: patient.Triage time: 06:35 07/01/2020. Acuity: LEVEL 4.Chief Complaint: PAINFUL URINATION.Onset. (2 days). 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 No suspected or confirmed signs of infection present.--06:47 07/01/20 Tamia Clements R.N.06:43 07/01/20. BP: 133/83. MAP: 99. HR: 83. RR: 16. O2 saturation: 98%. Temp: 97.4 F. Pain level now:02/27. --06:47 07/01/20 Tamia Clements R.N.Weight: 76.2 kg measured. Height/Length: 59 inches Per Patient. BMI: 34. --06:35 07/01/20 Tamia Barker R.N.MedicationsAlbuterol Sulfate Inhalation 2 unit doses. Eliquis Oral. HYDROcodone-Acetaminophen Oral (Solution 7.5-325 m g/15mL), as needed. KlonoPIN Oral 0.25 mg, at bedtime. LaMICtal Oral (Tablet 25 mg), 2x a day. Meclizine HCl Oral 50 mg, 2x a day. MiraLax Oral 1 packet. Motrin IB Oral 400, as needed. Potassium Chloride Oral (Packet 20 meq), 2x a day. Promethazine HCl Oral (Tablet 25 mg), as needed. Sudafed Oral 60 mg, 2x a day. ZyPREXA Oral (Tablet 10 mg), at bedtime. --06:48 07/01/20 Tamia Clements R.N.AllergiesDarvacet. --06:48 07/01/20 Tamia Clements R.N.Demerol.Microdentin. --06:48 07/01/20 Tamia Clements R.N.PROBLEMS: 2 Clinical Report - Nurses [facility] Emergency Department [address] [place] [address] Phone #: ext- [phone] 07/01/2020 06:35 Patient: FABIANO RAMIREZ Sex: F : 1955 Age: 64y Diabetes Mellitus Type 2. Contusion. Arthritis. Ankle Injury. Cervical Strain. Spinal Tumor. Sprain. UTI - Urinary Tract Infection. Hypoglycemia. Incontinence. Lower Extremity Pain. --06:48 07/01/20 Tamia Clements R.N. ADDITIONAL SURGERIES: Appendectomy. Hernia Repair. Spinal surgery. --06:48 07/01/20 Tamia Clements R.N. History PAST MEDICAL HX: ( hx multiple UTIs). --06:47 07/01/20 Tamia Clements R.N. SOCIAL HX: Never smoker. No alcohol use or drug use. She was offered HIV testing but declined and hepatitis C testing but declined. She has not traveled outside the [place] Infectious disease exposure: No infectious disease exposure. SELF HARM ASSESSMENT: Self harm assessment was performed. The patient answered "no" to the question(s) "Do you have thoughts of harming or killing yourself?" and "Do you have a plan for harming or killing yourself?". ABUSE ASSESSMENT: No report of abuse. FALL RISK ASSESSMENT: Fall risk assessment completed. Risk factors identified include severe pain and patient impairment of mobility. Fall interventions initiated. Bed in low position. Brakes on. Call light in reach of patient. --06:54 07/01/20 Tamia Clements R.N. FAMILY HX: Negative - denies family medical history. --07:23 07/01/20 Xavier Robertson, Physician.PHYSICAL ASSESSMENTTo room via nate eganGENERAL / NEURO / PSYCH: Alert. Oriented X 4. Appears anxious.HEENT: Mucous membranes are pink.RESPIRATORY: Respirations not labored.CVS: Capillary refill less than 2 seconds.GI / : No emesis noted. Pain with urination. She has had frequency of urination. Urgency ofurination. Patient is incontinent of urine. 3 Clinical Report - Nurses [facility] Emergency Department [address] [place] [address] Phone #: ext- [phone] 07/01/2020 06:35 Patient: FABIANO RAMIREZ Sex: F : 1955 Age: 64y SKIN: Skin is warm and dry. --06:50 07/01/20 Tamia Clements R.N.NURSING PROGRESS NOTESReassurance given. Call light placed in reach. Bed placed in lowest position. Brakes of bed on.--06:48 07/01/20 Tamia Clements R.N. Urine collected. --06:49 07/01/20 Tamia Clements R.N. Point of Care Testing: Finger stick glucose: 144. --06:55 07/01/20 Tamia Clements R.N. Patient ID band checked for patient name and birthdate: patient confirmed. Instructions provided to collect clean catch urine and patient verbalized understanding. Clean catch urine collected with return of cloudy urine; sample sent to lab for urinalysis. Specimen labeled in the presence of the patient. --06:59 07/01/20 Alessandro Clements RN ( Dr. Robertson in room to assess patient.). --07:20 07/01/20 Liset Adan.DISPOSITION / DISCHARGE Condition at departure: unchanged. No learning barriers present. Discharge instructions provided and reviewed with the patient. Reviewed medication(s). Treatments reviewed. Patient verbalized understanding. The patient was discharged by the physician. She was discharged home and unaccompanied at time of discharge. She left ambulatory and via taxi. Driving (taxi). --07:45 07/01/20 Liset Adan 07:44 07/01/20. BP: 144/92. MAP: 109. HR: 95. RR: 18. O2 saturation: 99%. Temp: 98.7 F. Pain level now: 0/10. --07:45 07/01/20 Liset Adan Departure time: 07:46 07/01/2020. --07:46 07/01/20 Liset Adan.Locked/Released at 07/01/2020 07:46 by Liset Adan Name Value Range Interpretation Code Description Data Melanie rce(s) Supporting Document(s) ID Date Data Source [id number] 07/01/2020 06:35:00 AM EST [facility] 1 Clinical Report - Physicians/Mid Levels [facility] Emergency Department [address] [place] [address] Phone #: ext- [phone] 07/01/2020 06:35 Patient: FABIANO RAMIREZ Sex: F : 1955 Age: 64y Time Seen: 07:17 07/01/2020. Arrived- By ambulance. Historian- patient. Disposition decision: 07:31 07/01/2020.HISTORY OF PRESENT ILLNESS Chief Complaint: DYSURIA. This started 2 days ago and still present. The symptoms are described as moderate. Modifying factors. Not worsened by anything. Not relieved by anything. No abdominal pain, pelvic pain, vaginal pain, low back pain or missed period(s). No irregular periods, abnormal bleeding, vaginal discharge, vaginal itching or genital lesions. She has had pain with urination and urgency of urination. The patient has had urinary frequency. Not sexually active. Denies current . Similar symptoms previously. Patient has had similar symptoms occasionally. Recent medical care: Not recently seen/assessed.REVIEW OF SYSTEMSNo nausea, vomiting, diarrhea, black stools or headache. No fever, chill s, anorexia, eye discomfort orsore throat. No cough, difficulty breathing, chest pain, skin rash or enlarged lymph nodes. The patienthas had moderate joint pain (chronic right ankle pain).PAST HISTORYSee nurses notes. Problems: Fall. Diabetes Mellitus Type 2. Contusion. Arthritis. Ankle Injury. Cervical Strain. Spinal Tumor. Sprain. UTI - Urinary Tract Infection. Hypoglycemia. Incontinence. Lower Extremity Pain. Additional Surgeries: Appendectomy. 2 Clinical Report - Physicians/Mid Levels [facility] Emergency Department [address] [place] [address] Phone #: ext- [phone] 07/01/2020 06:35 Patient: FABIANO RAMIREZ Sex: F : 1955 Age: 64y Hernia Repair. Spinal surgery. Medications: Albuterol Sulfate Inhalation 2 unit doses. Eliquis Oral. HYDROcodone-Acetaminophen Oral (Solution 7.5-325 mg/15mL), as needed. KlonoPIN Oral 0.25 mg, at bedtime. LaMICtal Oral (Tablet 25 mg), 2x a day. Meclizine HCl Oral 50 mg, 2x a day. MiraLax Oral 1 packet. Motrin IB Oral 400, as needed. Potassium Chloride Oral (Packet 20 meq), 2x a day. Promethazine HCl Oral (Tablet 25 mg), as needed. Sudafed Oral 60 mg, 2x a day. ZyPREXA Oral (Tablet 10 mg), at bedtime. Allergies: Darvacet. Demerol. Microdentin.SOCIAL HISTORYNever smoker. No alcohol use or drug use. No recent t ravel. Resides in an apartment.FAMILY HISTORYNegative - denies family medical history.ADDITIONAL NOTESThe nursing notes have been reviewed with agreement regarding the chief complaint, HPI, ROS, PMH andpatient medications and allergies.PHYSICAL EXAMVital Signs: 07/01/2020 06:43 BP: 133/83. MAP: 99. HR: 83. RR: 16. O2 saturation: 98%. Temp: 97.4 F.Pain level now: 02/27. Have been reviewed. Blood pressure normal. Heart rate normal. Respiratoryrate normal. Temperature normal. Oxygen saturation normal.Appearance: Alert. Oriented X3. Patient in mild distress.HEENT: Normal external inspection.ENT: Pharynx no rmal.Neck: Neck supple.CVS: Heart sounds normal.Respiratory: No respiratory distress. Painless inspiration. Breath sounds normal. Chest nontender.Abdomen: Soft and nontender. Bowel sounds normal. No organomegaly. No mass.Back: Normal external inspection.Skin: Skin warm and dry. Normal skin color. No rash. Normal skin turgor. 3 Clinical Report - Physicians/Mid Levels [facility] Emergency Department [address] [place] [address] Phone #: ext- [phone] 07/01/2020 06:35 Patient: FABIANO RAMIREZ Sex: F : 1955 Age: 64y Extremities: No lower extremity edema. (right ankle pain with internal strain). Neuro: Oriented X 3. Mood/affect normal. No motor deficit. No sensory deficit.LABS, X-RAYS, AND EKGLaboratory Tests: Laboratory tests have been ordered, with results reviewed and considered in themedical decision making process. Urinalysis: (OLE: 07/01/2020 06:50) ( MsgRcvd 07/01/2020 07:08) Final results Test Result Flag Units (Reference) URINALYSIS URINALYSIS SOURCE R COLOR yellow (NORMAL: Yello CLARITY clear (NORMAL: Clear SPEC GRAVITY 1.010 (1.001 - 1.030 pH 7 (5 - 9) GLUCOSE NORM (NORMAL: Negat BILIRUBIN NEG (NORMAL: Negat KETONE NEG (NORMAL: Negat PROTEIN NEG (NORMAL: Negat NITRITE POS (NORMAL: Negat BLOOD 150 A (NORMAL: Negat LEUK EST 500 A (NORMAL: Negat UROBILINOGEN NOR (less than 1.0 MICROSCOPIC See Below WBC 5 - 7 A (NORMAL: NONE RBC 7 - 10 A (NORMAL: NONE EPITHELIAL MODERATE A (NORMAL: NONE BACTERIA 3+ LARGE A (NORMAL: NONE . Bedside Tests: Glucose - 144 (performed at bedside).PROGRESS AND PROCEDURESCourse of Care: 07:25 Jul 01 2020. (Patient's history obtained and exam completed. Treatment plandiscussed and agreed upon. UA suspicious for UTI. Will treat with Cipro 250 mg BiD for 7 days. Will returnif worsen and follow up with PMD. New Air cast splint provided and patient will continue to use walker asprevious.). Disposition: Condition: stable.CLINICAL IMPRESSION Acute urinary tract infection with cystitis. No hematuria. Chronic right ankle pain.INSTRUCTIONS 4 Clinical Report - Physicians/[facility] Emergency Department [address] [place] [address] Phone #: ext- [phone] 07/01/2020 06:35 Patient: FABIANO RAMIREZ Sex: F : 1955 Age: 64y Drink plenty of fluids. Warnings: GENERAL WARNINGS: Return or contact your physician immediately if your condition worsens or changes unexpectedly, if not improving as expected, or if other problems arise. Your Current Medications: Your current home medications have been reviewed. CONTINUE TAKING THE FOLLOWING MEDICATIONS: Albuterol Sulfate Inhalation : 2 unit doses. HYDROcodone-Acetaminophen Oral : Solution 7.5-325 mg/15mL, prn. LaMICtal Oral : Tablet 25 mg, 2x a day. MiraLax Oral : 1 packet. Motrin IB Oral : 400, prn. Potassium Chloride Oral : Packet 20 meq, 2x a day. ZyPREXA Oral : Tablet 10 mg, at bedtime. Eliquis Oral. KlonoPIN Oral : 0.25 mg, at bedtime. Meclizine HCl Oral : 50 mg 2x a day. Promethazine HCl Oral : Tablet 25 mg, prn. Sudafed Oral : 60 mg 2x a day. Prescription Medications: ciprofloxacin 250 mg tablet Take 1 tablet twice a day for 7 days -- Dispense 14 tablet. Refills: 0. Substitution permitted. Pharmacy - [id number] - [address] ; [place] [address]. . Follow-up: Follow up with your healthcare provider in four days. Call for an appointment. Understanding of the discharge instructions verbalized by patient.(Electronically signed by Xavier Robertson, Physician 07/01/2020 08:41) Name Value Range Interpretation Code Description Data Melanie rce(s) Supporting Document(s) ID Date Data Source [id number] 07/01/2020 06:50:00 AM EST [facility] ([facility]) Name Value Range Interpretation Code Description Data Melanie rce(s) Supporting Document(s) Culture Urine Laboratory test result [facility] ([facility]) SOURCE: Clean Catch ID Date Data Source [id number] 07/01/2020 06:50:00 AM EST [facility] ([facility]) Name Value Range Interpretation Code Description Data Melanie rce(s) Supporting Document(s) Source Laboratory test result [facility] ([facility]) SOURCE: Clean Catch Urinalysis Laboratory test result [facility] ([facility]) SOURCE: Clean Catch Color Laboratory test result [facility] ([facility]) SOURCE: Clean Catch Clarity Laboratory test result [facility] ([facility]) SOURCE: Clean Catch pH 7 5-9 [facility] SOURCE: Clean Catch Spec Dawson 1.010 1.001-1.030 [facility] ([facility]) SOURCE: Clean Catch Glucose Laboratory test result [facility] ([facility]) SOURCE: Clean Catch Ketone Laboratory test result [facility] ([facility]) SOURCE: Clean Catch Bilirubin Laboratory test result [facility] ([facility]) SOURCE: Clean Catch Protein Laboratory test result [facility] ([facility]) SOURCE: Clean Catch Nitrite Laboratory test [facility] SOURCE: Clean Catch Blood 150 Abnormal (applies to non-numeric res ults) [facility] ([facility]) SOURCE: Clean Catch Leuk Est 500 Abnormal (applies to non-numeric res ults) [facility] SOURCE: Clean Catch Urobilinogen Laboratory test result [facility] SOURCE: Clean Catch WBC Laboratory test result Abnormal (applies to non -numeric results) [facility] [facility] SOURCE: Clean Catch Microscopic Laboratory test result [facility] SOURCE: Clean Catch RBC Laboratory test result Abnormal (applies to non -numeric results) [facility] [facility] SOURCE: Clean Catch Bacteria Laboratory test result Abnormal (applies to non -numeric results) [facility] [facility] SOURCE: Clean Catch Epithelial Laboratory test result Abnormal (applies to non -numeric results) [facility] [facility] SOURCE: Clean Catch ID Date Data Source [id number] 07/05/2020 12:01:00 PM [facility] Name Value Range Interpretation Code Description Data Melanie rce(s) Supporting Document(s) CULTURE URINE [facility] _CULTURE URINE_$$[id number]$$[id number]$$199158$$491408$$814532$$272560$$261656$$993896$$538342$$ 925688$$610610$$554181$$576223$$796464$$079510$$745648$$755249$$074944$$180657$$ 170103$$938865$$249018$$077251$$809193$$734738$$111138$$200103 -- Continued on next page --Patient: CANDIDO MARIO Order: [id number] Page 2Culture: CULTURE URINE Status: Final ==== -- Continued on next page --Patient: CNADIDO MARIO Order: [id number] Page 2Culture: CULTURE URINE Status: Prelim ===== -- Continued on next page --Patient: CANDIDO MARIO Order: [id number] Page 2Culture: CULTURE URINE Status: Prelim =====$$[id number]$$[id number] DATE/TIME: 07/05/2020 11:06Culture: CULTURE URINE Status: FinalIsolate 1 Escherichia coli Flag: A . . . . . . .1Greater than 100,000 colony forming units per mLCefazolin <=4 ug/mLCefazolin with an YONG <=16 predicts susceptibility to the oral agentscefaclor, cefdinir, cefpodoxime, cefprozil, cefuroxime, cephalexin,and loracarbef when used for therapy of uncomplicated urinary tractinfections due to E. coli, Klebsiella pneumoniae, and Proteusmirabilis. Previous result entered on 07/04/2020 10:19 ET Gram negative rods Previous result entered on 07/03/2020 14:54 ET Microbiological testing to rule out the presence of possible pathogensis in progress.Urine Culture,Comprehensive: Y7Wrgddopohac coli Flag: APatient: CANDIDO MARIO Order: [id number] Page 3Culture: CULTURE URINE Status: Final ====ISOLATE 1 Escherichia coli Isolate 1Antibiotic YONG IntUnits ug/mL ----Amoxicillin/Clavulanic Acid S S . . . . . .20-8Ampicillin S S . . . . . .28-1Cefepime S S . . . . . .6644-9Ceftriaxone S S . . . . . .141-2Cefuroxime S S . . . . . .145-3Ciprofloxacin S S . . . . . .185-9Ertapenem S S . . . . . .99627-3Urnhknrwwi S S . . . . . .267-5Imipenem S S . . . . . .279- 0Levofloxacin S S . . . . . .51271-3Vmmfipblh S S . . . . . .6652-2Nitrofurantoin S S . . . . . .363-2Piperacillin/Tazobactam S S . . . . . .412-7Tetracycline S S . . . . . .496-0Tobramycin S S . . . . . .508-2Trimethoprim/Sulfa S S . . . . . .516-5P1 Test performed by: Rose HURTADO #: [id number] [address] [place] [address] [id number] [facility] [id number] Director : Ross Jeffers MD NPI #:Forensic Audit Expert : 07/03/201551.XMT.SENT REF 07/04/20.XMT.SENT REF 07/05/20.XMT.SENT REF ID Date Data Source [id number] 07/01/2020 07:08:00 AM EST [facility] Name Value Range Interpretation Code Description Data Melanie rce(s) Supporting Document(s) [facility] COL[facility] yellow NORMAL: Yellow [facility] CLARITY clear NORMAL: Clear [facility] Specific gravity of Urine by Test strip 1.010 1.001 - 1.030 [facility] pH 7 5 - 9 [facility] al Glucose [Mass/volume] in Urine by Test strip NORM NORMAL: Negat [facility] Bilirubin.total [Presence] in Urine by Test strip NEG NORMAL: Negative [facility] Ketones [Presence] in Urine by Test strip NEG NORMAL: Negative [facility] Protein [Mass/volume] in Urine by Test strip NEG NORMAL: Negat [facility] Nitrite [Presence] in Urine by Test strip POS NORMAL: Negative [facility] BLOOD 150 NORMAL: Negative [facility] Leukocyte esterase [Presence] in Urine by Test strip 500 KANE L: Negative [facility] Urobilinogen [Mass/volume] in Urine by Test strip NOR less deanna n 1.0 mg/dL [facility] MICROSCOPIC See Below [facility] ital WBC 5 - 7 NORMAL: NONE SEEN A [facility] Erythrocytes [#/volume] in Urine by Test strip 7 - 10 NORMAL: NON E SEEN A [facility] EPITHELIAL MODERATE NORMAL: NONE SEEN A [facility] Bacteria [Presence] in Urine sediment by Light microscopy 3+ LARGE NORMAL: NONE SEEN A [facility] ID Date Data Source [id number] 06/08/2020 02:10:00 PM EST [facility] ([facility]) Name Value Range Interpretation Code Description Data Melanie rce(s) Supporting Document(s) Leukocytes [#/volume] in Blood by Automated count 5.4 x10*3/UL 4.1-10 .9 [facility] ([facility]) Hemoglobin [Mass/volume] in Blood 12.5 g/dL 12.0-18.0 [facility] ([facility]) Erythrocytes [#/volume] in Blood by Automated count 4.16 x10*6/UL 4.2 0-6.30 [facility] ([facility]) Hematocrit [Volume Fraction] of Blood by Automated count 37.8 % 3 7.0-51.0 [facility] ([facility]) MCH 30.1 pg 26.0-32.0 [facility] [facility]) MCV 91.0 fL 80.0-97.0 [facility] [facility]) Platelets [#/volume] in Blood by Automated count 219 x10*3/UL 140-440 [facility] ([facility]) MCHC 33.0 g/dL 31.0-38.0 [facility] [facility] Erythrocyte distribution width [Ratio] by Automated count 14.4 % 11.6-13.7 [facility] ([facility]) MPV 6.9 FL 7.8-11.0 [facility] [facility]) Mid % 6.5 % 1.7-9.3 [facility] ([place] [facility]) Lymph % 27.9 % 10.0-58.5 [facility] ([place] [facility]) Neut % 65.6 % 37.0-92.0 [facility] [facility]) Lymph # 1.5 x10*3/UL 0.6-4.1 [facility] ([facility]) Mid # 0.4 x10*3/UL 0.1-0.6 [facility] ([facility]) Neut # 3.5 x10*3/UL 2.0-7.8 [facility] ([facility]) ID Date Data Source [id number] 05/04/2020 01:59:00 PM EDT [facility] ([facility]) Name Value Range Interpretation Code Description Data Melanie rce(s) Supporting Document(s) Triglyceride [Mass/volume] in Serum or Plasma 186 mg/dL 30-150 [facility] ([facility]) Cholesterol in HDL [Mass/volume] in Serum or Plasma 55 mg/dL 35-60 [facility] ([facility]) Cholesterol [Mass/volume] in Serum or Plasma 180 mg/dL 131-200 [facility] ([facility]) Cholesterol in LDL [Mass/volume] in Serum or Plasma by calcu lation 88 CALC 50-159 [facility] ([facility]) ID Date Data Source [id number] 05/04/2020 01:59:00 PM EDT [facility] ([facility]) Name Value Range Interpretation Code Description Data Melanie rce(s) Supporting Document(s) Creatinine 1.0 mg/dL 0.6-1.3 [facility] Glucose [Mass/volume] in Serum or Plasma 86 mg/dL 74-99 [facility] ([facility]) 100-125 mg/dL PRE-DIABETES/FASTING >126 mg/dL DIABETES/FASTING Urea nitrogen [Mass/volume] in Serum or Plasma 14 mg/dL 7-18 [facility] ([facility]) Sodium [Moles/volume] in Serum or Plasma 144 meq/L 136-145 [facility] ([facility]) Chloride [Moles/volume] in Serum or Plasma 105 meq/L 98-107 [facility] ([facility]) Potassium [Moles/volume] in Serum or Plasma 4.0 meq/L 3.5-5.1 [facility] ([facility]) Calcium [Mass/volume] in Serum or Plasma 9.9 mg/dL 8.5-10.1 [facility] ([facility]) Alkaline phosphatase isoenzyme [Units/volume] in Serum or Pl asma 55 mg/dL 46-116 [facility] ([facility]) Carbon dioxide, total [Moles/volume] in Serum or Plasma 36 meq/L 21 -32 [facility] ([facility]) Total Bilirubin 0.2 mg/dL 0.2-1.0 [facility] ([facility]) Aspartate aminotransferase [Enzymatic activity/volume] in Serum or Plasma 23 U/L 15-37 [facility] ([facility] ) Alanine aminotransferase [Enzymatic activity/volume] in Seru m or Plasma 26 U/L 12-78 [facility] ([facility]) Albumin [Mass/volume] in Serum or Plasma 3.7 g/dL 3.4-5.0 [facility] ([facility]) A/G Ratio 0.93 CALC 1.00-1.90 [facility] ([facility]) Proteinase 3 Ab [Units/volume] in Serum 7.7 g/dL 6.4-8.2 [facility] Glomerular filtration rate/1.73 sq M pre dicted among blacks [Volume Rate/Area] in Serum or Plasma by Creatinine-based formula (MDRD) Laboratory test result [facility] ([facility]) <content>CHRONIC KIDNEY DISEASE STAGING PER NKF</content>
<content></content>
<content>STAGE I & II GFR >= 60 NORMAL TO MILDLY DECREASED</content>
<content>STAGE III GFR 30-59 MODERATELY DECREASED</content>
<content>STAGE IV GFR 15-29 SEVERELY DECREASED</content>
<content>STAGE V GFR <15 VERY LITTLE GFR LEFT</content>
<content>ESRD GFR <15 ON DATA TRANSCRIBER</content>
<content></content> Glomerular filtration rate/1.73 sq M pre dicted among non-blacks [Volume Rate/Area] in Serum or Plasma by Creatinine-based formula (MDRD) 56 mL/min [facility] ID Date Data Source [id number] 05/04/2020 01:59:00 PM EDT [facility] Name Value Range Interpretation Code Description Data Melanie rce(s) Supporting Document(s) Leukocytes [#/volume] in Blood by Automated count 5.8 x10*3/UL 4.1-10 .9 [facility] [facility] Erythrocytes [#/volume] in Blood by Automated count 4.06 x10*6/UL 4.2 0-6.30 [facility] ([facility]) Hemoglobin [Mass/volume] in Blood 12.1 g/dL 12.0-18.0 [facility] ([facility]) MCV 91.6 fL 80.0-97.0 [facility] ([facility]) Hematocrit [Volume Fraction] of Blood by Automated count 37.2 % 3 7.0-51.0 [facility] ([facility]) MCHC 32.6 g/dL 31.0-38.0 [facility] [facility]) Erythrocyte distribution width [Ratio] by Automated count 14.4 % 11.6-13.7 [facility] ([facility]) MCH 29.8 pg 26.0-32.0 [facility] ([place] [facility]) MPV 7.1 FL 7.8-11.0 [facility] ([place] [facility]) Lymph % 26.4 % 10.0-58.5 [facility] ([place] [facility]) Platelets [#/volume] in Blood by Automated count 240 x10*3/UL 140-440 [facility] ([facility]) Mid % 7.1 % 1.7-9.3 [facility] ([place] [facility]) Neut % 66.5 % 37.0-92.0 [facility] ([facility]) Lymph # 1.5 x10*3/UL 0.6-4.1 [facility] ([facility]) Neut # 3.8 x10*3/UL 2.0-7.8 [facility] ([facility]) Mid # 0.5 x10*3/UL 0.1-0.6 [facility] ([facility]) ID Date Data Source [id number] 04/23/2020 01:44:00 PM EDT [facility] Name Value Range Interpretation Code Description Data Melanie rce(s) Supporting Document(s) Lactate [Mass/volume] in Serum or Plasma 1.3 mmol/L 0.4-2.0 [facility] [facility] Y/N query for Sepsis Lactate Rule: Y ID Date Data Source [id number] 04/01/2020 06:10:00 AM EDT [facility] Name Value Range Interpretation Code Description Data Melanie rce(s) Supporting Document(s) Color, Urine RFX Laboratory test result [facility] ([facility]) Appearance, Urine RFX Laboratory test result [facility] [facility] Specific Dawson Ur Auto RFX 1.006 1.002-1.035 [facility] ([facility]) PH,Urine RFX 8.0 units 5.0-9.0 [facility] ([facility]) Protein, Urine Auto RFX Laboratory test result [facility] [facility] Ketone, Urine Auto RFX Laboratory test result [facility] ([facility]) Glucose, Urine (Ua) Auto RFX Laboratory test result [facility] [facility] Bilirubin, Urine Auto RFX Laboratory test result [facility] ([facility]) Urobilinogen, Urine Auto RFX 0.2 mg/dL 0.0-2.0 [facility] ([facility]) Nitrite, Urine Auto RFX Laboratory test result [facility] ([facility]) Blood, Urine Blood RFX Laboratory test result [facility] [facility] WBC, Urine Auto RFX 1 /HPF 0-3 [facility] Leukocyte Esterase Ur Auto RFX Laboratory test result [facility] ([facility]) Squam Epithelial Cell Ur Aurfx 1 /HPF 0-6 [facility] ([facility] Bacteria, Urine Auto RFX Laboratory test result [facility] ([facility]) RBC, Urine Auto RFX 2 /HPF 0-3 [facility] ([facility] Hyaline Cast, Urine Auto RFX 0 /LPF 0-1 M EDENT ([facility]) Amorphous Sediment RFX Laboratory test result [facility] ([facility]) ID Date Data Source [id number] 03/21/2020 08:47:00 [place] [address] PHONE: [phone] FAX: [phone] Name .................. : YUNIGavin OCHOARA Acct Number.................. : [id number] ROOM. ................. : TR-06 MR Number ................... : [id number] Stay type ............. : E/R Discharge Date......... ... : 03/18/20 Admit Date ......... : 03/18/20 Admit Phys .................... : PABLITOS YONY Date of ....... : 1955 Family Phys ................... : JENNY NAN Phone .................. : [phone] Age ................................ : 64 Film# .................. .:[id number] Sex ................................. : F Unsigned transcriptions are preliminary reports and do not represent a medical or legal document FOOT COMPLETE-[address] [place] [id number] COMPLETE:03/18/20 05:31 KJE [id number] Reason(s): Pain RIGHT FOOT X-RAY: HISTORY: Pain. COMPARISON: None. FINDINGS: No fracture or malalignment. Osteopenia is noted. Mild hallux valgus. Mild midfoot degenerative arthritis. Moderate size claudicated plantar calcaneal spur. IMPRESSION: No acute findings. Electronically Reviewed and Signed By Shashank Kitchen MD , 03/21/20 08:47, APM Transcribe Initials: SHANNAN , Transcribe Date: 03/18/20 09:23, Dictation Date: Copy for: 710 MED REC DISCHARGED Page 1 of 1 Name Value Range Interpretation Code Description Data Melanie rce(s) Supporting Document(s) ID Date Data Source [id number] 03/21/2020 08:47:00 AM EDT [facility] [address] [place] [address] PHONE: [phone] FAX: [phone] Name .................. : CANDIDO MARIO Acct Number.................. : [id number] ROOM. ................. : TR-06 Number ................... : [id number] Stay type ............. : E/R Discharge Date......... ... : 03/18/20 Admit Date ......... : 03/18/20 Admit Phys .................... : TAMAR BHAKTA Date of ....... : 1955 Family Phys ................... : JENNY NAN Phone .................. : [phone] Age ................................ : 64 Film# .................. .:[id number] Sex ................................. : F Unsigned transcriptions are preliminary reports and do not represent a medical or legal document ANKLE COMPLETE RT [id number] COMPLETE:03/18/20 05:31 E [id number] Reas on(s): Trauma/Injury RIGHT ANKLE X-RAY: 3-VIEWS HISTORY: Trauma/injury. COMPARISON: None. FINDINGS: No fracture, malalignment or destructive osseous abnormality. Symmetric ankle mortise. No syndesmotic widening. No ankle joint effusion. Mild lateral malleolar soft tissue swelling. IMPRESSION: No fracture. Electronically Reviewed and Signed By Shashank Kitchen MD , 03/21/20 08:47, APM Transcribe Initials: SHANNAN , Transcribe Date: 03/18/20 09:21, Dictation Date: Copy for: 710 MED REC DISCHARGED Page 1 of 1 Name Value Range Interpretation Code Description Data Melanie rce(s) Supporting Document(s) ID Date Data Source [id number] 03/18/2020 04:56:00 AM EDT [facility] 1 OrderSheet [facility] Emergency Department [address] [place] [address] Phone #: ext- [phone] 03/18/2020 04:56 Patient: FABIANO RAMIREZ Sex: F : 1955 Age: 64yWEIGHT:73.0 kg (M) HEIGHT:59 inches (S) BMI:32.5ALLERGIES: Darvacet, Demerol, MicrodentinCHIEF COMPLAINT: Rt, ankle, Rt, footDIAGNOSIS: Arthritis, Urinary tract infectious disease, Pain in lower limbLAB ORDERSOrder Description Priority Entered Acknowledged InitialedUric Acid STAT 05:14 03/18/2020 06:04 Henri Oliva R.N. Physician;Sed. Rate STAT 05:14 03/18/2020 06:04 Henri Oliva R.N. Physician;CRP STAT 05:14 03/18/2020 06:04 Henri Oliva R.N. Physician;DIAGNOSTIC STUDY ORDERSOrder Description Priority Entered Acknowledged InitialedAnkle Complete STAT 05:07 03/18/2020 06:04 Right Henri Oliva R.N.(Oxygen?(No)) Physician; Reason for Study: Trauma/InjuryFoot Complete STAT 05:07 03/18/2020 06:04 Right Henri Oliva R.N.(Oxygen?(No)) Physician; Reason for Study: Pain, Trauma/InjuryMEDICATION/IV/DRIP/FLUID ORDERSOrder Description Priority Entered Acknowledged InitialedGENERAL ORDERSOrder Description Priority Entered Acknowledged InitialedOrthopedic Shoe (R 05:43 03/18/2020 06:04 demetrio Oliva) Henri Inman R.N. Physician;[Electronically signed by Storm Oliva R.N. (06:29 03/18/2020)] 2 OrderSheet [facility] Emergency Department [address] [place] [address] Phone #: ext- [phone] 03/18/2020 04:56 Patient: FABIANO RAMIREZ Sex: F : 1955 Age: 64y[Electronically signed by Henri Boyle Physician (07:31 03/19/2020)][Electronically locked by Storm Oliva R.N. (06:29 03/18/2020)] Name Value Range Interpretation Code Description Data Melanie rce(s) Supporting Document(s) ID Date Data Source [id number] 03/18/2020 04:56:00 AM EDT [facility] 1 Medication Reconciliation Report [facility] Emergency Department [address] [place] [address] Phone #: ext- [phone] 03/18/2020 04:56 Patient: FABIANO RAMIREZ Sex: F : 1955 Age: 64yWeight: 73.0 kgHeight/Length: 59 in.BMI: 32.5ALLERGIES: Darvacet, Demerol, MicrodentinThe patient's Home Medications are listed below:THE FOLLOWING MEDICATIONS NEED TO BE RECONCILED: Albuterol Sulfate Inhalation 2 unit doses Eliquis Oral HYDROcodone-Acetaminophen Oral (7.5-325 mg/15mL), prn KlonoPIN Oral 0.25 mg, at bedtime LaMICtal Oral (25 mg), 2x a day Meclizine HCl Oral 50 mg, 2x a day MiraLax Oral 1 packet Motrin IB Oral 400, prn Potassium Chloride Oral (20 meq), 2x a day Promethazine HCl Oral (25 mg), prn Sudafed Oral 60 mg, 2x a day ZyPREXA Oral (10 mg), at bedtimeThe source(s) of the original Home Medication information:Not obtained.The following Medications were given to the patient in the Emergency Department: 2 Medication Reconciliation Report [facility] Emergency Department [address] [place] [address] Phone #: ext- [phone] 03/18/2020 04:56 Patient: FABIANO RAMIREZ Sex: F : 1955 Age: 64yNone.The following Medications were prescribed to the patient:None. Name Value Range Interpretation Code Description Data Melanie rce(s) Supporting Document(s) ID Date Data Source [id number] 03/18/2020 04:56:00 AM EDT [facility] 1 Medication Administration Record [facility] Emergency Department [address] [place] [address] Phone #: ext- [phone] 03/18/2020 04:56 Patient: FABIANO RAMIREZ Sex: F : 1955 Age: 64yWeight: 73.0 kgHeight/Length: 59 inBMI: 32.5ALLERGIES: Darvacet, Demerol, MicrodentinDate/Time Medication Administered Medication Ordered Name Value Range Interpretation Code Description Data Melanie rce(s) Supporting Document(s) ID Date Data Source [id number] 03/18/2020 04:56:00 AM EDT [facility] 1 General Instructions [facility] Emergency Department [address] [place] [address] Phone #: ext- [phone] 03/18/2020 04:56 Patient: FABIANO RAMIREZ Sex: F : 1955 Age: 64yAcute right ankle and foot pain (and chronic).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 Aeruginosa - Treated). No hematuria. Not associated withindwelling catheter or obstruction .INSTRUCTIONSApply ice. Elevate affected areas above chest level. Wear fracture shoe as needed. You may walk andbear weight as tolerated.(Motrin / Tylenol for pain. Follow-up with primary MD for further treatment of UTI / arthritis. Need to usevery cushioned footwear and gel inserts to minimize impact from footfalls.).Follow-up:Follow up with a driver's education instructor as needed. Call for the next available appointment. Reason for referral:evaluation, treatment and R foot / ankle pain.Understanding of the discharge instructions verbalized by patient. ADDITIONAL INFORMATIONOsteoa rthritisOsteoarthritis (also called degenerative joint disease) happens when the cartilage in a joint becomesdamaged and worn. This may be due to age, wear and tear, overuse of the joint, or other problems.Osteoarthritis can affect any joint. But it is most common in hands, knees, spine, hips, and feet.Symptoms include joint stiffness, pain, and swelling.Home care When a joint is more sore than usual, rest it for a day or two. Heat can help relieve stiffness. Take a hot bath or apply a heating pad for up to 30 minutes at a time. If symptoms are worse in the morning, using heat just after awakening can help relax the muscle and soothe the joints. Ice helps relieve pain and swelling. It is often used after activity. Use a cold pack wrapped in a thin cloth on the joint for 10 to 15 minutes at a time. 2 General Instructions [facility] Emergency Department [address] [place] [address] Phone #: ext- [phone] 03/18/2020 04:56 Patient: FABIANO RAMIREZ Sex: F : 1955 Age: 64y Alternating hot and cold can also help relieve pain. Try this for 20 minutes at a time, several times per day. Exercise helps prevent the muscles and ligaments around the joint from becoming weak. It also helps maintain function in the joint. Be as active as you can. Talk to your healthcare provider about what activity program is best for you. Excess weight puts a lot of extra strain on weight-bearing joints of the lower back, hips, knees, feet and ankles. If you are overweight, talk to your healthcare provider about a safe and effective weight loss program. Use anti-inflammatory medicines as prescribed for pain. This includes acetaminophen or NSAIDs such as ibuprofen or naproxen. If needed, topical or injected medicines may be recommended. Talk to your healthcare provider if these options are not enough to manage your pain. Talk with your healthcare provider about devices that might help improve your function and reduce pain.Follow-up careFollow up with your healthcare provider as advised by our staff.When to seek medical adviceCall your healthcare provider right away if any of these occur: Redness or swelling of a painful joint Discharge or pus from a painful joint Fever of 100.4F (38C) or higher, or as directed by your healthcare provider Worsening joint pain Decreased ability to move the joint or bear weight on the joint 4519-[address] [employer]. [address] [place] [address], [place] [address]. All rights reserved. This information is not intended as asubstitute for professional medical care. Always follow your healthcare professional's instructions.Arthralgia 3 General Instructions [facility] Emergency Department [address] [place] [address] Phone #: ext- [phone] 03/18/2020 04:56 Patient: FABIANO RAMIREZ Sex: F : 1955 Age: 64yArthralgia is the term for pain in or around the joint. It is a symptom, not a disease. This pain mayinvolve one or more joints. In some cases, the pain moves from joint to joint.There are many causes for joint pain. These include: Injury Osteoarthritis (wearing out of the joint surface) Gout (inflammation of the joint due to crystals in the joint fluid) Infection inside the joint Bursitis (inflammation of the fluid-filled sacs around the joint) Autoimmune disorders such as rheumatoid arthritis or lupus Tendonitis (inflammation of chords that attach muscle to bone)Home care Rest the involved joint(s) until your symptoms improve. You may be prescribed pain medicine. If none is prescribed, you may use acetaminophen or ibuprofen to control pain and inflammation.Follow-up careFollow up with your healthcare provider or as advised. 4 General Instructions [facility] Emergency Department [address] [place] [address] Phone #: ext- [phone] 03/18/2020 04:56 Patient: FABIANO RAMIREZ Sex: F : 1955 Age: 64yWhen to seek medical adviceContact your healthcare provider right away if any of the following occurs: Pain, swelling, or redness of joint increases Pain worsens or recurs after a period of improvement Pain moves to other joints You cannot bear weight on the affected joint You cannot move the affected joint Joint appears deformed New rash appears Fever of 100.4F (38C) or higher, or as directed by your healthcare provider 9417-3744 [employer]. [address] [place] [address], [place] [address]. All rights reserved. This information is not intended as asubstitute for professional medical care. Always follow your healthcare professional's instructions.Bladder Infection, Female (Adult)Urine is normally doesn't have any bacteria in it. But bacteria can get into the urinary tract from theskin around the rectum. Or they can travel in the blood from elsewhere in the body. Once they are inyour urinary tract, they can cause infection in the urethra (urethritis), the bladder (cystitis), or the 5 General Instructions [facility] Emergency Department [address] [place] [address] Phone #: ext- [phone] 03/18/2020 04:56 Patient: FABIANO RAMIREZ Sex: F : 1955 Age: 64ykidneys (pyelonephritis).The most common place for an infection is in the bladder. This is called a bladder infection. This isone of the most common infections in women. Most bladder infections are easily treated. They arenot serious unless the infection spreads to the kidney.The phrases "bladder infection," "UTI," and "cystitis" are often used to describe the same thing. Butthey are not always the same. Cystitis is an inflammation of the bladder. The most common cause ofcystitis is an infection.SymptomsThe infection causes inflammation in the urethra and bladder. This causes many of the symptoms.The most common symptoms of a bladder infection are: Pain or burning when urinating Having to urinate more often than usual Urgent need to urinate Only a small amount of urine comes out Blood in urine Abdominal discomfort. This is usually in the lower abdomen above the pubic bone. Cloudy urine Strong- or bad-smelling urine Unable to urinate (urinary retention) Unable to hold urine in (urinary incontinence) Fever Loss of appetite Confusion (in older adults)CausesBladder infections are not contagious. You can't get one from someone else, from a toilet seat, orfrom sharing a bath.The most common cause of bladder infections is bacteria from the bowels. The bacteria get onto theskin around the opening of the urethra. From there, they can get into the urine and travel up to thebladder, causing inflammation and infection. This usually happens because of: 6 General Instructions [facility] Emergency Department [address] [place] [address] Phone #: ext- [phone] 03/18/2020 04:56 Patient: FABIANO RAMIREZ Sex: F : 1955 Age: 64y Wiping improperly after urinating. Always wipe from front to back. Bowel incontinence Procedures such as having a catheter inserted Older age Not emptying your bladder. This can allow bacteria a chance to grow in your urine. Dehydration Constipation Sex Use of a diaphragm for controlTreatmentBladder infections are diagnosed by a urine test. They are treated with antibiotics and usually clear upquickly without complications. Treatment helps prevent a more serious kidney infection.MedicinesMedicines can help in the treatment of a bladder infection: Take antibiotics until they are used up, even if you feel better. It is important to finish them to make sure the infection has cleared. You can use acetaminophen or ibuprofen for pain, fever, or discomfort, unless another medicine was prescribed. If you have chronic liver or kidney disease, talk with your healthcare provider before using these medicines. Also talk with your provider if you've ever had a stomach ulcer or gastrointestinal bleeding, or are taking blood-thinner medicines. If you are given phenazopydridine to reduce burning with urination, it will cause your urine to become a bright orange color. This can stain clothing.Care and preventionThese self-care steps can help prevent future infections: Drink plenty of fluids to prevent dehydration and flush out your bladder. Do this unless you must restrict fluids for other health reasons, or your doctor told you not to. Proper cleaning after going to the bathroom is important. Wipe from front to back after using 7 General Instructions [facility] Emergency Department [address] [place] [address] Phone #: ext- [phone] 03/18/2020 04:56 Patient: FABIANO RAMIREZ Sex: F : 1955 Age: 64y the toilet to prevent the spread of bacteria. Urinate more often. Don't try to hold urine in for a long time. Wear loose-fitting clothes and cotton underwear. Avoid tight-fitting pants. Improve your diet and prevent constipation. Eat more fresh fruit and vegetables, and fiber, and less junk and fatty foods. Avoid sex until your symptoms are gone. Avoid caffeine, alcohol, and spicy foods. These can irritate your bladder. Urinate right after intercourse to flush out your bladder. If you use control pills and have frequent bladder infections, discuss it with your doctor.Follow-up careCall your healthcare provider if all symptoms are not gone after 3 days of treatment. This is especiallyimportant if you have repeat infections.If a culture was done, you will be told if your treatment needs to be changed. If directed, you cancall to find out the results.If X-rays were done, you will be told if the results will affect your treatment.Call [phone] if any of the following occur: Trouble breathing Hard to wake up or confusion Fainting or loss of consciousness Rapid heart rateWhen to seek medical adviceCall your healthcare provider right away if any of these occur: Fever of 100.4F (38.0C) or higher, or as directed by your healthcare provider Symptoms are not better by the third day of treatment Back or belly (abdominal) pain that gets worse Repeated vomiting, or unable to keep medicine down 8 General Instructions [facility] Emergency Department [address] [place] [address] Phone #: ext- [phone] 03/18/2020 04:56 Patient: FABIANO RAMIREZ Sex: F : 1955 Age: 64y Weakness or dizziness Vaginal discharge Pain, redness, or swelling in the outer vaginal area (labia) [phone] [employer]. [address] [place] [address], [place] [address]. All rights reserved. This information is not intended as asubstitute for professional medical care. Always follow your healthcare professional's instructions.OsteoarthritisOsteoarthritis (also called degenerative joint disease) happens when the cartilage in a joint becomesdamaged and worn. This may be due to age, wear and tear, overuse of the joint, or other problems.Osteoarthritis can affect any joint. But it is most common in hands, knees, spine, hips, and feet.Symptoms include joint stiffness, pain, and swelling.Home care When a joint is more sore than usual, rest it for a day or two. Heat can help relieve stiffness. Take a hot bath or apply a heating pad for up to 30 minutes at a time. If symptoms are worse in the morning, using heat just after awakening can help relax the muscle and soothe the joints. Ice helps relieve pain and swelling. It is often used after activity. Use a cold pack wrapped in a thin cloth on the joint for 10 to 15 minutes at a time. Alternating hot and cold can also help relieve pain. Try this for 20 minutes at a time, several times per day. Exercise helps prevent the muscles and ligaments around the joint from becoming weak. It also helps maintain function in the joint. Be as active as you can. Talk to your healthcare provider about what activity program is best for you. Excess weight puts a lot of extra strain on weight-bearing joints of the lower back, hips, knees, feet and ankles. If you are overweight, talk to your healthcare provider about a safe and effective weight loss program. Use anti-inflammatory medicines as prescribed for pain. This includes acetaminophen or NSAIDs such as ibuprofen or naproxen. If needed, topical or injected medicines may be recommended. Talk to your healthcare provider if these options are not enough to manage your pain. Talk with your healthcare provider about devices that might help improve your function and reduce pain. 9 General Instructions [facility] Emergency Department [address] [place] [address] Phone #: ext- [phone] 03/18/2020 04:56 Patient: FABIANO RAMIREZ Sex: F D OB: 1955 Age: 64yFollow-up careFollow up with your healthcare provider as advised by our staff.When to seek medical adviceCall your healthcare provider right away if any of these occur: Redness or swelling of a painful joint Discharge or pus from a painful joint Fever of 100.4F (38C) or higher, or as directed by your healthcare provider Worsening joint pain Decreased ability to move the joint or bear weight on the joint [phone] [employer]. [address] [place] [address]. All rights reserved. This information is not intended as asubstitute for professional medical care. Always follow your healthcare professional's instructions. You have been given the following additional information: Osteoarthritis Arthralgia Bladder Infection, Female (Adult) Osteoarthritis You may walk and bear weight as tolerated.(Electronically signed by Henri Boyle, Physician 03/19/2020 07:31) Name Value Range Interpretation Code Description Data Melanie rce(s) Supporting Document(s) ID Date Data Source [id number] 03/18/2020 04:56:00 AM EDT [facility] 1 Clinical Report - Nurses [facility] Emergency Department [address] [place] [address] Phone #: ext- [phone] 03/18/2020 04:56 Patient: FABIANO RAMIREZ Sex: F : 1955 Age: 64yTRIAGEArrived by EMS. Historian: patient.Triage time: 05:01 03/18/2020. Acuity: LEVEL 4.Chief Complaint: INJURY TO RIGHT ANKLE.Alert. No acute distress.This occurred (actual time) (03/02/2020). Occurred 05:03 03/02/2020. ( originally injured right ankle on03/02/2020). She has had trouble walking. 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 Sepsis Screen negative. No suspected or confirmed signs ofinfection present.ARRON COMA SCORE: 15- eyes open- spo ntaneous (4); best verbal response- oriented (5); bestmotor response- obeys commands (6). --05:10 03/18/20 Storm Oliva R.N.05:04 03/18/20. BP: 164/82. MAP: 109. HR: 90. RR: 16. O2 saturation: 98%. Temp: 98.2 F. Pain levelnow: 5/10. --06:25 03/18/20 Storm Oliva R.N.Weight: 73 kg measured. Height/Length: 59 inches Per Patient. BMI: 32.5. --05:08 03/18/20 Storm Oliva R.N.MedicationsAlbuterol Sulfate Inhalation 2 unit doses. Eliquis Oral. HYDROcodone-Acetaminophen Oral (Solution 7.5-325 mg/15mL), as needed. KlonoPIN Oral 0.25 mg, at bedtime. LaMICtal Oral (Tablet 25 mg), 2x a day. Meclizine HCl Oral 50 mg, 2x a day. MiraLax Oral 1 packet. Motrin IB Oral 400, as needed. Potassium Chloride Oral (Packet 20 meq), 2x a day. Promethazine HCl Oral (Tablet 25 mg), as needed. Sudafed Oral 60 mg, 2x a day. ZyPREXA Oral (Tablet 10 mg), at bedtime. --05:02 03/18/20 Storm Oliva R.N. 2 Clinical Report - Nurses [facility] Emergency Department [address] [place] [address] Phone #: ext- [phone] 03/18/2020 04:56 Patient: FABIANO RAMIREZ Sex: F : 1955 Age: 64yAllergiesDarvacet.Demerol.Microdentin. --05:02 03/18/20 Storm Oliva R.N.PROBLEMS:Diabetes Mellitus Type 2.Fall.Contusion.Ankle Injury.Cervical Strain.Sprain.UTI - Urinary Tract Infection.Spinal Tumor.Hypoglycemia.Incontin ence. --05:02 03/18/20 Storm Oliva R.N.HistoryPAST MEDICAL HX: Tetanus status: up-to-date. Immunizations: up-to-date. The patient ispost-menopausal. ( pt is currently taking Bactrim DS for a ongoing bladder infection).SOCIAL HX: Never smoker. She was offered HIV testing but declined. Patient education was provided.She was offered hepatitis C testing but declined. Patient education was provided. She has not traveledoutside the [place]Infectious disease exposure: The patient was not exposed to chicken pox, measles, mumps, meningitis,staph, strep, mono, C-diff, MRSA, VRE, CRE, influenza, Corey flu, H1N1 flu, Hepatitis A, B and C,Coronavirus, MERS, SARS, tuberculosis, Ebola, HIV, Typhoid or Zika.SELF HARM ASSESSMENT: Self harm assessment was performed. The patient answered "no" to thequestion(s) "Have you recently felt down, depressed, or hopeless?", "Do you have thoughts of harming orkilling yourself?", "Do you have a plan for harming or killing yourself?", "Have you recently had thoughtsabout harming or killing others?", "Do you have any dangerous items in your possession?", "Have younoticed less interest or pleasure in doing things?", "Are you here because you tried to hurt yourself?" and"Have you ever tried to hurt yourself before today?".ABUSE ASSESSMENT: Abuse assessment. Abuse denied. No suspicion of abuse.NUTRITIONAL RISK ASSESSMENT: The nutritional risk assessment revealed no deficiencies.FUNCTIONAL ASSESSMENT: Functional assessment: no impairments noted.LEARNING NEEDS ASSESSMENT: The learning needs assessment revealed no barriers.FALL RISK ASSESSMENT: Fall risk assessment completed. Risk factors identified include weakness and 3 Clinical Report - Nurses [facility] Emergency Department [address] [place] [address] Phone #: ext- [phone] 03/18/2020 04:56 Patient: FABIANO RAMIREZ Sex: F : 1955 Age: 64y patient history of fall and impairment of mobility. Fall interventions initiated. Side rails up x2. Bed in low position. Brakes on. Patient visible from nurses' station. Call light in reach of patient. Instructed not to get up without assistance. Instructions given to patient. Verbalizes understanding. SKIN INTEGRITY ASSESSMENT: Skin integrity risk assessment completed. No skin integrity risk identified. --05:03/18/20 Storm Oliva R.N. Assessment The patient states feels the same. --05:03/18/20 Storm Oliva R.N. Interventions Identification band on patient. --05:03/18/20 Storm Oliva R.N. Advanced care plan. Patient does not have advanced directive. --05:03/18/20 Storm Oliva R.N.PHYSICAL [id number]:03/18/20. To room via stretcher.GENERAL / NEURO / PSYCH: Oriented X 4. Alert. Appears in no acute distress. Appears anxious.EXTREMITIES: Capillary refill is less than 2 seconds in the extremities. Extremity pulses are withinnormal limits. Extremities exhibit normal ROM. Limping gait. Neuro-vascular status intact to theextremity.SKIN: Skin intact. Skin is warm and dry. --06:06 03/18/20 Storm Oliva R.N.NURSING PROGRESS NOTESExtremities: Neuro-vascular status intact to the extremities. Reassessment acuity: LEVEL 4. The patientreports no complaints and she is calm, resting quietly and sleeping.GENERAL / NEURO / PSYCH: Alert. Oriented X 4.RESPIRATORY: No respiratory distress.CVS: Capillary refill less than 2 seconds.SKIN: Skin is warm and dry. Two patient identifiers checked. Call light placed in reach. Side rails up x2. Bed placed in lowest position. Brakes of bed on. --06:07 03/18/20 Storm Oliva R.N.DISPOSITION / DISCHARGE Condition at departure: improved. No learning barriers present. Discharge instructions provided and reviewed with the patient. Reviewed warnings. Reviewed medication(s). Treatments reviewed. Reviewed referrals. Patient verbalized understanding. Written instructions p rovided in Eritrean. The patient was discharged by the physician. She was discharged home. She left ambulatory and via taxi. Patient driving. ( pt to the waiting room to wait for cab). Patient has no belongings. --06:08 03/18/20 Storm Oliva R.N. 06:07 03/18/20. BP: 155/85. MAP: 108. HR: 92. RR: 20. O2 saturation: 98%. Temp: 97.8 F. Pain level now: 08/30. --06:08 03/18/20 Storm Oliva R.N. Departure time: 06:23 03/18/2020. --06:23 03/18/20 Storm Oliva R.N. 4 Clinical Report - Nurses [facility] Emergency Department [address] [place] [address] Phone #: ext- [phone] 03/18/2020 04:56 Patient: FABIANO RAMIREZ Sex: F : 1955 Age: 64yLocked/Released at 03/18/2020 06:29 by Storm Oliva R.N. Name Value Range Interpretation Code Description Data Melanie rce(s) Supporting Document(s) ID Date Data Source [id number] 03/18/2020 04:56:00 AM EDT [facility] 1 Clinical Report - Physicians/Mid Levels [facility] Emergency Department [address] [place] [address] Phone #: ext- [phone] 03/18/2020 04:56 Patient: FABIANO RAMIREZ Sex: F : 1955 Age: 64y Time Seen: 05:00 03/18/2020. Arrived- By ambulance. Historian- EMS personnel. Disposition decision: 05:37 03/18/2020.HISTORY OF PRESENT ILLNESS Chief Complaint: Injury to the right foot and right ankle. The injury happened about 2 weeks ago. The patient sustained an inversion injury while walking. Occurred at home. Patient is experiencing moderate pain. No injury to the head or neck or other injury.REVIEW OF SYSTEMSThe patient complains of pain on weight bearing. No swelling, tingling, weakness, numbness or suspectedforeign body. No skin laceration.PAST HISTORYPast history not negative. See nurses notes. DMFallContusionsAnkle injuryCervical strainSprainChronic UTIsSpinal tumorHypoglycemiaIncontinenceAnticoagulationChronic pain. Tetanus immunization status is up-to-date.SOCIAL HISTORYNever smoker. No alcohol use or drug use. No recent travel.ADDITIONAL NOTESThe nursing notes have been reviewed with agreement regarding the chief complaint, HPI, ROS, PMH andpatient medications and allergies.PHYSICAL EXAMAppearance: Alert. Oriented X3. Anxious. Appears to be in pain. In distress. Patient in moderatedistress. No backboard or C- collar.Skin: Skin intact. Skin warm and dry.Extremities: Moderate soft-tissue tenderness in the right lateral and dorsal foot and right lateral andanterior ankle. Ankle injury present. Ankle stable. Right lateral ankle and anterior ankle. Foot injury 2 Clinical Report - Physicians/Mid Levels [facility] Emergency Department [address] [place] [address] Phone #: ext- [phone] 03/18/2020 04:56 Patient: FABIANO RAMIREZ Sex: F : 1955 Age: 64y present. No signs of infection present in the feet or ankles. Foot and ankle exam otherwise negative. Extremities otherwise negative. Neuro, Vascular and Tendons: Vascular status intact. Sensation intact. Motor intact. Tendon function intact. Gait: Normal gait. Neuro: Oriented X 3. No sensory deficit.LABS, X-RAYS, AND EKGX-Rays: Right ankle negative.Laboratory Tests: Laboratory tests have been ordered, with results reviewed and considered in themedical decision making process. Uric Acid: (OLE: 03/18/2020 05:40) ( [facility] 03/18/2020 06:10) Final results Test Result Flag Units (Reference) URIC ACID 6.4 MG/DL (2.5 - 8.5) Sed. Rate: (OLE: 03/18/2020 05:40) ( [facility] 03/18/2020 06:05) Final results Test Result Flag Units (Reference) SED RATE 46 H mm/hr (0 - 30) SED RATE REENTER 46 CRP: (OLE: 03/18/2020 05:40) ( [facility] 03/18/2020 06:10) Final results Test Result Flag Units (Reference) CRP-HS 6.67 H MG/L (1.00 - 3.00) CDC/AHS HS-CRP CUT-OFF: RELATIVE RISK: <1.0 mg/L Low 1.0 - 3.0 mg/L Average >3.0 mg/L High Optimally, the average of HS-CRP results repeated two weeks apart should be used for risk assessment. Ankle Complete Right: (OLE: 03/18/2020 05:07) ( MsgRcvd 03/18/2020 09:23) In Progress ANKLE COMPLETE RT Reason(s): Trauma/Injury TRANSPORTATION: IV? O2? Oxygen?(No) Room: ED Exam ANKLE COMPLETE RT [facility] [address] [place] [address] PHONE: [phone] FAX: [phone] Name .................. : CANDIDO MARIO Acct Number.................. : [id number] ROOM. ................. : TR-06 Number ................... : [id number] Stay type ............. : E/R Discharge Date......... ... : 03/18/20 Admit Date ......... : 03/18/20 Admit Phys .................... : TAMAR BHAKTA Date of ....... : 1955 Family Phys ................... : JENNY NAN Phone .................. : [phone] Age ................................ : 64 Film# .................. .:[id number] Sex ................................. : F Unsigned transcriptions are preliminary reports and do not represent a medical or legal document [place] [id number] COMPLETE:03/18/20 05:31 KJE [id number] Reason(s): Trauma/Injury 3 Clinical Report - Physicians/Mid Levels [facility] Emergency Department [address] [place] [address] Phone #: ext- [phone] 03/18/2020 04:56 Patient: FABIANO RAMIREZ Sex: F : 1955 Age: 64y RIGHT ANKLE X-RAY: 3-VIEWS HISTORY: Trauma/injury. COMPARISON: None. FINDINGS: No fracture, malalignment or destructive osseous abnormality. Symmetric ankle mortise. No syndesmotic widening. No ankle joint effusion. Mild lateral malleolar soft tissue swelling. IMPRESSION: No fracture. Electronically Reviewed and Signed By DCTNAME , SIGNDATE, APM Transcribe Initials: SHANNAN , Transcribe Date: 03/18/20 09:21, Dictation Date: <<REPDIST>> Page1 of 1Foot Complete Right: (OLE: 03/18/2020 05:07) ( MsgRcvd 03/18/2020 09:24) In ProgressFOOT COMPLETE-3 OR MORE VW RTReason(s): PainTRANSPORTATION: WC IV? O2? Oxygen?(No) Room: ED Exam FOOT COMPLETE-3 [place] [address] PHONE: [phone] FAX: [phone] Name .............. .... : CANDIDO MARIO Acct Number.................. : [id number] ROOM. ................. : TR-06 MR Number ................... : [id number] Stay type ............. : E/R Discharge Date......... ... : 03/18/20 Admit Date ......... : 03/18/20 Admit Phys .................... : VENERUS YONY Date of ....... : 1955 Family Phys ................... : JENNY Vehrity Phone .................. : [phone] Age ................................ : 64 Film# .................. .:[id number] Sex ................................. : F Unsigned transcriptions are preliminary reports and do not represent a medical or legal document [place] COMPLETE-[address] [place] [id number] COMPLETE:03/18/20 05:31 KJE [id number] Reason(s): Pain Trauma/Injury 4 Clinical Report - Physicians/Mid Levels [facility] Emergency Department [address] [place] [address] Phone #: ext- [phone] 03/18/2020 04:56 Patient: FABIANO RAMIREZ Sex: F : 1955 Age: 64y RIGHT FOOT X-RAY: HISTORY: Pain. COMPARISON: None. FINDINGS: No fracture or malalignment. Osteopenia is noted. Mild hallux valgus. Mild midfoot degenerative arthritis. Moderate size claudicated plantar calcaneal spur. IMPRESSION: No acute findings. Electronically Reviewed and Signed By DCTARVIND SIGNDATE, DARIEL Transcribe Initials: SHANNAN , Transcribe Date: 03/18/20 09:23, Dictation Date: <<REPDIST>> Page 1 of 1 . Note - Tests: (R foot - Heel spur. Osteoarthritic changes.).PROGRESS AND PROCEDURESCourse of Care: 05:Mar 18 2020. Patient is stable. 05:Mar 18 2020. No evidence of any acute bony injury to R foot or ankle. She does have some arthritic and osteopenic changes. I recommend cushioned footwear with gel or foam inserts for more shock absorption. Pt. has P. aeruginosa UTI from cx done at [facility] ED visit 2 weeks ago. She is finishing a Bactrim Rx. Will discharge. Need to get repeat urinalysis with primary physician and treatment for osteoarthritis. Disposition: Discharged home in good and improved condition (05:Mar 18 2020). Condition: good.CLINICAL IMPRESSION Acute right ankle and foot pain (and chronic). 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 Chronic urinary tract infection with cystitis (P. Aeruginosa - Treated). No hematuria. Not associated with indwelling catheter or obstruction. 5 Clinical Report - Physicians/Mid Levels [facility] Emergency Department [address] [place] [address] Phone #: ext- [phone] 03/18/2020 04:56 Patient: FABIANO RAMIREZ Sex: F : 1955 Age: 64 yINSTRUCTIONS Apply ice. Elevate affected areas above chest level. Wear fracture shoe as needed. You may walk and bear weight as tolerated. (Motrin / Tylenol for pain. Follow-up with primary MD for further treatment of UTI / arthritis. Need to use very cushioned footwear and gel inserts to minimize impact from footfalls.). Follow-up: Follow up with a driver's education instructor as needed. Call for the next available appointment. Reason for referral: evaluation, treatment and R foot / ankle pain. Understanding of the discharge instructions verbalized by patient.(Electronically signed by Henri Boyle, Physician 03/19/2020 07:31) Name Value Range Interpretation Code Description Data Melanie rce(s) Supporting Document(s) ID Date Data Source [id number] 03/18/2020 05:40:00 AM EDT [facility] ([facility]) Name Value Range Interpretation Code Description Data Melanie rce(s) Supporting Document(s) Urate [Mass/volume] in Serum or Plasma 6.4 mg/dL 2.5-8.5 [facility] ([facility]) C reactive protein [Mass/volume] in Serum or Plasma by High sensitivity method 6.67 mg/L 1.00-3.00 [facility] ([facility] ) <content>CDC/S HS-CRP CUT-OFF: RELATIVE RISK:</content>
<content><1.0 mg/L Low</content>
<content>1.0 - 3.0 mg/L Average</laron nt>
<content>>3.0 mg/L High</content>
<content>Optimally, the average of HS-CRP results repeated</content>
<content>two weeks apart should be used for risk assessment.</content>
<content></content> ID Date Data Source [id number] 03/18/2020 05:40:00 AM EDT [facility] ([facility]) Name Value Range Interpretation Code Description Data Melanie rce(s) Supporting Document(s) Sed Rate 46 mm/hr 0-30 [facility] ([facility]) Sed Rate Reenter 46 [facility] ([facility]) ID Date Data Source [id number] 03/18/2020 06:10:00 AM EDT [facility] Name Value Range Interpretation Code Description Data Melanie rce(s) Supporting Document(s) C reactive protein [Mass/volume] in Serum or Plasma by High sensitivity method 6.67 MG/L 1.00 - 3.00 [facility]/S HS-CRP CUT-OFF: RELATIVE RISK: <1.0 mg/L Low 1.0 - 3.0 mg/L Average >3.0 mg/L High Optimally, the average of HS-CRP results repeated two weeks apart should be used for risk assessment. ID Date Data Source [id number] 03/18/2020 06:10:00 AM EDT [facility] Name Value Range Interpretation Code Description Data Melanie rce(s) Supporting Document(s) Urate [Mass/volume] in Serum or Plasma 6.4 MG/DL 2.5 - 8.5 [facility] ID Date Data Source [id number] 03/18/2020 06:05:00 AM EDT [facility] Name Value Range Interpretation Code Description Data Melanie rce(s) Supporting Document(s) Erythrocyte sedimentation rate by Westergren method 46 mm/hr 0 - 30 H [facility] SED RATE REENTER 46 [facility] ID Date Data Source [id number] 03/02/2020 12:27:00 PM EDT [facility] 1 OrderSheet [facility] Emergency Department [address] [place] [address] Phone #: ext- [phone] 03/02/2020 12:19 Patient: FABIANO RAMIREZ Sex: F : 1955 Age: 64yWEIGHT:73.4 kg HEIGHT:59 inches BMI:32.7ALLERGIES: Darvacet, Demerol, MicrodentinCHIEF COMPLAINT: Rt, ankleDIAGNOSIS: Sprain of joint, Urinary tract infectious diseaseLAB ORDERSOrder Description Priority Entered Acknowledged InitialedUrinalysis (Clean STAT 12:49 03/02/2020 12:51 TerryCatch) Charlene Wang RN PA;DIAGNOSTIC STUDY ORDERSOrder Description Priority Entered Acknowledged InitialedAnkle Complete STAT 12:49 03/02/2020 12:51 BonillayRight Charlene Wang RN(Oxygen?(No)) PA; Reason for Study: rolled ankle this AM now c/o lateral ankle painFoot Complete STAT 12:49 03/02/2020 12:51 Criss Wang RN(Oxygen?(No)) PA; Reason for Study: lateral foot pain after rolling ankle this AMMEDICATION/IV/DRIP/FLUID ORDERSOrder Description Priority Entered Acknowledged InitialedGENERAL ORDERSOrder Description Priority Entered Acknowledged InitialedSplint (Aircast) R 14:05 03/02/2020 14:25 Sylwia Kohli RN PA;Orthopedic Shoe 14:05 03/02/2020 14:25 Concha Kohli RN PA;[Electronically signed by Ac Wang RN (16:00 03/02/2020)][Electronically signed by Charlene Fuentes (22:54 03/02/2020)][Electronically locked by Ac Wang RN (16:00 03/02/2020)] Name Value Range Interpretation Code Description Data Melanie rce(s) Supporting Document(s) ID Date Data Source [id number] 03/02/2020 12:27:00 PM EDT [facility] 1 Medication Reconciliation Report [facility] Emergency Department [address] [place] [address] Phone #: ext- [phone] 03/02/2020 12:19 Patient: FABIANO RAMIREZ Sex: F : 1955 Age: 64yWeight: 73.4 kgHeight/Length: 59 in.BMI: 32.7ALLERGIES: Darvacet, Demerol, MicrodentinThe patient's Home Medications are listed below:CONTINUE TAKING THE FOLLOWING MEDICATIONS: Albuterol Sulfate Inhalation 2 unit doses Eliquis Oral HYDROcodone-Acetaminophen Oral (7.5-325 mg/15mL), prn KlonoPIN Oral 0.25 mg, at bedtime LaMICtal Oral (25 mg), 2x a day Meclizine HCl Oral 50 mg, 2x a day MiraLax Oral 1 packet Motrin IB Oral 400, prn Potassium Chloride Oral (20 meq), 2x a day Promethazine HCl Oral (25 mg), prn Sudafed Oral 60 mg, 2x a day ZyPREXA Oral (10 mg), at bedtimeThe source(s) of the original Home Medication information:Not obtained.The following Medications were given to the patient in the Emergency Department: 2 Medication Reconciliation Report [facility] Emergency Department [address] [place] [address] Phone #: ext- [phone] 03/02/2020 12:19 Patient: FABIANO RAMIREZ Sex: F : 1955 Age: 64yNone.The following Medications were prescribed to the patient:Cipro 500 mg tablet Take 1 tablet twice a day -- Dispense 10 tablet. Refills: 0. Substitution permitted.[facility] [employer] [address] - [address] [place] [address]. .Bactrim 400 mg-80 mg tablet Take 1 tablet twice a day -- Dispense 10 tablet. Refills: 0. Substitutionpermitted.[employer] [address] - [address] [facility] [facility] ; [place] [address]. . -- EMRE Puga Name Value Range Interpretation Code Description Data [facility] Supporting Document(s) ID Date Data Source [id number] 03/02/2020 12:27:00 PM EDT [facility] 1 Medication Administration Record [facility] Emergency Department [address] [place] [address] Phone #: ext- [phone] 03/02/2020 12:19 Patient: FABIANO RAMIREZ Sex: F : 1955 Age: 64yWeight: 73.4 kgHeight/Length: 59 inBMI: 32.7ALLERGIES: Microdentin, Darvacet, DemerolDate/Time Medication Administered Medication Ordered Name Value Range Interpretation Code Description Data [facility](s) Supporting Document(s) ID Date Data Source [id number] 03/02/2020 12:27:00 PM EDT [facility] 1 General Instructions [facility] Emergency Department [address] [place] [address] Phone #: ext [phone] 03/02/2020 12:19 Patient: FABIANO RAMIREZ Sex: F : 1955 Age: 64ySprain of the right ankle.Acute urinary tract infection with cystitis.heel spur noted on foot x-ray (chronic).INSTRUCTIONSApply ice. Wear air splint as needed. Elevate affected areas above chest level.(Take the prescribed medication as directed for the UTI. You can wear the foot and ankle brace asneeded for the foot and ankle pain. Because the pain is chronic, you may want to speak your regularprovider to see if you would benefit from an orthopedic consult.).War nings: GENERAL WARNINGS: Return or contact your physician immediately if your conditionworsens or changes unexpectedly, if not improving as expected, or if other problems arise. Specificallyreturn if problem worsens or fails to resolve.Your Current Medications: Your current home medications have been reviewed.CONTINUE TAKING THE FOLLOWING MEDICATIONS:Albuterol Sulfate Inhalation : 2 unit doses.Eliquis Oral.HYDROcodone-Acetaminophen Oral : Solution 7.5-325 mg/15mL, prn.KlonoPIN Oral : 0.25 mg, at bedtime.LaMICtal Oral : Tablet 25 mg, 2x a day.Meclizine HCl Oral : 50 mg 2x a day.MiraLax Oral : 1 packet.Motrin IB Oral : 400, prn.Potassium Chloride Oral : Packet 20 meq, 2x a day.Promethazine HCl Oral : Tablet 25 mg, prn.Sudafed Oral : 60 mg 2x a day.ZyPREXA Oral : Tablet 10 mg, at bedtime.Prescription Medications:Cipro 500 mg tablet Take 1 tablet twice a day -- Dispense 10 tablet. Refills: 0. Substitution permitted.[employer] [address] - [address] [place] [address]. Phone: .Bactrim 400 mg-80 mg tablet Take 1 tablet twice a day -- Dispense 10 tablet. Refills: 0. Substitutionpermitted.[employer] #02 - [address] [place] [address]. Phone: [phone] General Instructions [facility] Emergency Department [address] [place] [address] Phone #: ext- [phone] 03/02/2020 12:19 Patient: FABIANO RAMIREZ Sex: F : 1955 Age: [id number] .Understanding of the discharge instructions verbalized by patient. ADDITIONAL INFORMATIONAnkle Sprain (Adult)An ankle sprain is a stretching or tearing of the ligaments that hold the ankle joint together. There areno broken bones.An ankle sprain is a common injury for both children and adults. It happens when the ankle turns,twists, or rolls in an awkward way. This can be caused by a sports injury. Or it can happen from doingsomething as simple as stepping on an uneven surface.Ligaments are made of tough connective tissue. Normally, ligaments stretch a certain amount andthen go back to their normal place. A sprain happens when a ligament is forced to stretch more thanthe normal amount. A severe sprain can actually tear the ligaments. If you have a severe sprain, youmay have felt or heard something like a pop when you were injured.Ankle sprains are given a grade depending on whether they are mild, moderate, or severe: Grade 1 sprain. A mild sprain with minor stretching and damage to the ligament. Grade 2 sprain. A moderate sprain where the ligament is partly torn. Grade 3 sprain. The most severe kind of sprain. The ligament is completely torn.Most sprains take about 4 to 6 weeks to heal. A severe sprain can take several months to recover. 3 General Instructions [facility] Emergency Department [address] [place] [address] Phone #: ext- [phone] 03/02/2020 12:19 Patient: FABIANO RAMIREZ Sex: F : 1955 Age: 64yYour healthcare provider may order X-rays to be sure you don't have a fracture, or broken bone.The injured area will feel sore. Swelling and pain may make it hard to walk. You may need crutches ifwalking is painful. Or your pr ovider may have you use a cast boot or air splint. This will depend on thegrade of ankle sprain that you have.Home care For a Grade 1 sprain, use RICE (rest, ice, compression, and elevation): Rest your ankle. Don't walk on it. Ice should be used right away to help control swelling. Place an ice pack over the injured area for 20 minutes. Do this every 3 to 6 hours for the first 24 to 48 hours. Keep using ice packs to ease pain and swelling as needed. To make an ice pack, put ice cubes in a plastic bag that seals at the top. Wrap the bag in a clean, thin towel or cloth. Never put ice or an ice pack directly on the skin. The ice pack can be put right on the cast, bandage, or splint. As the ice melts, be careful that the cast, bandage, or splint doesn't get wet. If you have a boot, open it to apply an ice pack, unless told otherwise by your provider. Compression devices help to control swelling. They also keep the ankle from moving and support your injured ankle. These devices include dressings, bandages, and wraps. Elevate or raise your ankle above the level of your heart when sitting or lying down. This is very important for the first 48 hours. Follow the RICE guidelines for a Grade 2 sprain. This type of sprain will take longer to heal. Your provider may have you wear a splint, cast, or brace to keep your ankle from moving. If you have a Grade 3 sprain, you are at risk for long-term ankle instability. In rare cases, surgery may be needed. Your provider may have you wear a short leg cast or a walking boot for 2 to 3 weeks. After 48 hours, it may be helpful to apply heat for 20 minutes several times a day. You can do this with a heating pad or warm compress. Or you may want to go back and forth between using ice and heat. Never apply heat directly to the skin. Always wrap the heating pad or warm compress in a clean, thin towel or cloth. You may use [id number] pain medicine (NSAIDS or nonsteroidal anti-inflammatory drugs) to control pain, unless another pain medicine was prescribed. Talk with your provider before using these medicines if you have chronic liver or kidney disease, or have ever had a stomach ulcer or gastrointestinal bleeding. Follow any rehabilitation exercises your provider gives you. These can help you be more flexible and improve your balance and coordination. This is helpful in preventing long-term 4 General Instructions [facility] Emergency Department [address] [place] [address] Phone #: ext- [phone] 03/02/2020 12:19 Patient: FABIANO RAMIREZ Sex: F : 1955 Age: 64y ankle problems.PreventionTo help prevent ankle sprains, it's important to have good strength, balance, and flexibility. Be sureto: Always warm up before you exercise or do something very active Be careful when walking or running on uneven or cracked surfaces Wear shoes that are in good condition and fit well Listen to your body's signals to slow down when you are in pain or tiredFollow-up careAny X-rays you had today don't show any broken bones, breaks, or fractures. Sometimes fracturesdon't show up on the first X-ray. Bruises and sprains can sometimes hurt as much as a fracture.These injuries can take time to heal completely. If your symptoms don't get better or they get worse,talk with your healthcare provider. You may need a repeat X- ray.Follow up with your healthcare provider, or as advised. Check for any warning signs listed below.When to seek medical adviceCall your healthcare provider right away if any of these occur: Fever of 100.4 F (38 C) or higher, or as directed by your healthcare provider Chills The injury doesn't seem to be healing The swelling comes back The cast or splint has a bad smell The plaster cast or splint gets wet or soft The fiberglass cast or splint gets wet and does not dry for 24 hours The pain or swelling increases, or redness appears Your toes become cold, blue, numb, or tingly The skin is discolored (looks blue, purple, or barboza), has blisters, or is irritated You re-injure your ankle 5 General Instructions [facility] Emergency Department [address] [place] [address] Phone #: ext- [phone] 03/02/2020 12:19 ------- Patient: FABIANO RAMIREZ Sex: F : 1955 Age: 64y [id number] [employer]. [address] [place], [place] [id number]. All rights reserved. This information is not intended as asubstitute for professional medical care. Always follow your healthcare professional's instructions.Bladder Infection, Female (Adult)Urine is normally doesn't have any bacteria in it. But bacteria can get into the urinary tract from theskin around the rectum. Or they can travel in the blood from elsewhere in the body. Once they are inyour urinary tract, they can cause infection in the urethra (urethritis), the bladder (cystitis), or thekidneys (pyelonephritis).The most common place for an infection is in the bladder. This is called a bladder infection. This isone of the most common infections in women. Most bladder infections are easily treated. They arenot serious unless the infection spreads to the kidney.The phrases "bladder infection," "UTI," and "cystitis" are often used to describe the same thing. Butthey are not always the same. Cystitis is an inflammation of the bladder. The most common cause ofcystitis is an infection.SymptomsThe infection causes inflammation in the urethra and bladder. This causes many of the symptoms.The most common symptoms of a bladder infection are: Pain or burning when urinating Having to urinate more often than usual 6 General Instructions [facility] Emergency Department [address] [place] [address] Phone #: ext- [phone] 03/02/2020 12:19 Patient: FABIANO RAMIREZ Sex: F : 1955 Age: 64y Urgent need to urinate Only a small amount of urine comes out Blood in urine Abdominal discomfort. This is usually in the lower abdomen above the pubic bone. Cloudy urine Strong- or bad-smelling urine Unable to urinate (urinary retention) Unable to hold urine in (urinary incon tinence) Fever Loss of appetite Confusion (in older adults)CausesBladder infections are not contagious. You can't get one from someone else, from a toilet seat, orfrom sharing a bath.The most common cause of bladder infections is bacteria from the bowels. The bacteria get onto theskin around the opening of the urethra. From there, they can get into the urine and travel up to thebladder, causing inflammation and infection. This usually happens because of: Wiping improperly after urinating. Always wipe from front to back. Bowel incontinence Procedures such as having a catheter inserted Older age Not emptying your bladder. This can allow bacteria a chance to grow in your urine. Dehydration Constipation Sex Use of a diaphragm for control 7 General Instructions [facility] Emergency Department [address] [place] [address] Phone #: ext- [phone] 03/02/2020 12:19 Patient: FABIANO RAMIREZ Sex: F : 1955 Age: 64yTreatmentBladder infections are diagnosed by a urine test. They are treated with antibiotics and usually clear upquickly without complications. Treatment helps prevent a more serious kidney infection.MedicinesMedicines can help in the treatment of a bladder infection: Take antibiotics until they are used up, even if you feel better. It is important to finish them to make sure the infection has cleared. You can use acetaminophen or ibuprofen for pain, fever, or discomfort, unless another medicine was prescribed. If you have chronic liver or kidney disease, talk with your healthcare provider before using these medicines. Also talk with your provider if you've ever had a stomach ulcer or gastrointestinal bleeding, or are taking blood-thinner medicines. If you are given phenazopydridine to reduce burning with urination, it will cause your urine to become a bright orange color. This can stain clothing.Care and preventionThese self-care steps can help prevent future infections: Drink plenty of fluids to prevent dehydration and flush out your bladder. Do this unless you must restrict fluids for other health reasons, or your doctor told you not to. Proper cleaning after going to the bathroom is important. Wipe from front to back after using the toilet to prevent the spread of bacteria. Urinate more often. Don't try to hold urine in for a long time. Wear loose-fitting clothes and cotton underwear. Avoid tight-fitting pants. Improve your diet and prevent co nstipation. Eat more fresh fruit and vegetables, and fiber, and less junk and fatty foods. Avoid sex until your symptoms are gone. Avoid caffeine, alcohol, and spicy foods. These can irritate your bladder. Urinate right after intercourse to flush out your bladder. If you use control pills and have frequent bladder infections, discuss it with your doctor.Follow-up careCall your healthcare provider if all symptoms are not gone after 3 days of treatment. This is especially 8 General Instructions [facility] Emergency Department [address] [place] [address] Phone #: ext- [phone] 03/02/2020 12:19 Patient: FABIANO RAMIREZ Sex: F : 1955 Age: 64yimportant if you have repeat infections.If a culture was done, you will be told if your treatment needs to be changed. If directed, you cancall to find out the results.If X-rays were done, you will be told if the results will affect your treatment.Call [phone] if any of the following occur: Trouble breathing Hard to wake up or confusion Fainting or loss of consciousness Rapid heart rateWhen to seek medical adviceCall your healthcare provider right away if any of these occur: Fever of 100.4F (38.0C) or higher, or as directed by your healthcare provider Symptoms are not better by the third day of treatment Back or belly (abdominal) pain that gets worse Repeated vomiting, or unable to keep medicine down Weakness or dizziness Vaginal discharge Pain, redness, or swelling in the outer vaginal area (labia) [id number] [employer]. [address] [place] [address], [place] [address]. All rights reserved. This information is not intended as asubstitute for professional medical care. Always follow your healthcare professional's instructions. You have been given the following additional information: Ankle Sprain (Adult) Bladder Infection, Female (Adult) 9 General Instructions [facility] Emergency Department [address] [place] [address] Phone #: ext- [phone] 03/02/2020 12:19 Patient: FABIANO RAMIREZ Sex: F : 1955 Age: 64y(Electronically signed by EMRE Puga 03/02/2020 22:55) Name Value Range Interpretation Code Description Data Melanie rce(s) Supporting Document(s) ID Date Data Source [id number] 03/02/2020 12:27:00 PM EDT [facility] 1 Clinical Report - Nurses [facility] Emergency Department [address] [place] [address] Phone #: [phone] ext- [phone] 03/02/2020 12:19 Patient: FABIANO RAMIREZ Sex: F : 1955 Age: 64yTRIAGEArrived by EMS. Historian: patient. ( per pt she rolled ankle this am. pt put herself in a soft cast andwalking boot.).Triage time: 12:21 03/02/2020. Acuity: LEVEL 4.Chief Complaint: RIGHT LOWER EXTREMITY PAIN.Alert.This started just prior to arrival.Treatment APPRAISAL TECHNICIAN:None. --12:28 03/02/20 Kelly Mahmood R.N.12:03/02/20. BP: 150/84. HR: 97. RR: 16. O2 saturation: 95%. Temp: 99.0 F. Pain level now 04/29.--12:03/02/20 Kelly Mahmood R.N.Weight: 73.4 kg. Height/Length: 59 inches. BMI: 32.7. --12:03/02/20 Kelly Mahmood R.N.MedicationsPromethazine HCl Oral (Tablet 25 mg), as needed. --12:03/02/20 Kelly Mahmood R.N. HYDROcodone-Acetaminophen Oral (Solution 7.5-325 mg/15mL), as needed. --12:03/02/20Kelly Mahmood R.N. KlonoPIN Oral 0.25 mg, at bedtime. --12:03/02/20 Kelly Mahmood R.N. Motrin IB Oral 400, as needed. --12:03/02/20 Kelly Mahmood R.N. LaMICtal Oral (Tablet 25 mg), 2x a day. --12:03/02/20 Kelly Mahmood R.N. Sudafed Oral 60 mg, 2x a day. --12:03/02/20 Kelly Mahmood R.N. Potassium Chloride Oral (Packet 20 meq), 2x a day. --12:03/02/20 Kelly Mahmood R.N. ZyPREXA Oral (Tablet 10 mg), at bedtime. --12:03/02/20 Kelly Mahmood R.N. Albuterol Sulfate Inhalation 2 unit doses. --12:03/02/20 Kelly Mahmood R.N. Meclizine HCl Oral 50 mg, 2x a day. --12:03/02/20 Kelly Mahmood R.N. MiraLax Oral 1 packet. --12:03/02/20 Kelly Mahmood R.N. Eliquis Oral. --12:03/02/20 Kelly Mahmood R.N.AllergiesDemerol. --12:03/02/20 Kelly Mahmood R.N.Darvacet. --12:03/02/20 Kelly Mahmood R.N.Microdentin. --12:03/02/20 Kelly Mahmood R.N.HistoryPAST MEDICAL HX: Tetanus status: up-to-date. Immunizations: up-to-date.SOCIAL HX: Never smoker. No alcohol use or drug use. The patient was offered HIV testing but 2 Clinical Report - Nurses [facility] Emergency Department [address] [place] [address] Phone #: ext- [phone] 03/02/2020 12:19 Patient: FABIANO RAMIREZ Sex: F : 1955 Age: 64y declined. The patient has not traveled outside the [place] Infectious disease exposure: No infectious disease exposure. The patient was not exposed to Coronavirus. Patient is not a known carrier of tuberculosis, hepatitis, HIV, MRSA or VRE. Patient is not a known carrier of CRE. SELF HARM ASSESSMENT: Self harm assessment was performed. The patient answered "no" to the question(s) "Have you recently felt down, depressed, or hopeless?", "Do you have thoughts of harming or killing yourself?", "Do you have a plan for harming or killing yourself?", "Have you recently had thoughts about harming or killing others?", "Do you have any dangerous items in your possession?", "Have you noticed less interest or pleasure in doing things?", "Are you here because you tried to hurt yourself?" and "Have you ever tried to hurt yourself before today?". ABUSE ASSESSMENT: Abuse assessment. Abuse denied. No suspicion of abuse. No report of abuse. --12:28 03/02/20 Kelly Mahmood R.N. FALL RISK ASSESSMENT: Fall risk assessment completed. Risk factors identified include weakness. Fall interventions initiated. Patient placed on stretcher. Side rails up x2. Bed in low position. Brakes on. Patient visible from nurses' station. Call light in reach of patient. Instructions given to patient. --15:59 03/02/20 Ac Wang RN. Interventions Identification band on patient. To treatment room. --12:28 03/02/20 Kelly Mahmood R.N.PHYSICAL [id number] 03/02/20. Ambulatory to room.GENERAL / NEURO / PSYCH: Oriented X 4.EXTREMITIES: Extremity pulses are within normal limits. Right foot: tenderness and swelling (top). ( ptwearing air cast and cast shoe).SKIN: Skin is warm and dry. --12:44 03/02/20 Ac Wang RN.NURSING PROGRESS NOTESBed placed in lowest position. Brakes of bed on. --12:03/02/20 Kelly Mahmood R.N. Checked patient name and birthdate: patient confirmed. Clean catch urine collected; sample sent to lab for urinalysis. Specimen labeled in the presence of the patient ([id number]). Two patient identifiers checked. Call light placed in reach. Side rails up x 2. Bed placed in lowest position. Brakes of bed on. Patient ready for evaluation- PA notified. --12:45 03/02/20 Ac Wang RN 12:52 03/02/20. Patient transported to radiology by wheelchair with career guidance technician. ([id number]). --12:57 03/02/20 Ac Wang RN 13:01 03/02/20. BP: 93/42. MAP: 59. HR: 91. RR: 24. O2 saturation: 100%. --13:01 03/02/20 Kelly Sotelo ED, ER Tech1 3 Clinical Report - Nurses [facility] Emergency Department [address] [place] [address] Phone #: ext- [phone] 03/02/2020 12:19 Patient: FABIANO RAMIREZ Sex: F : 1955 Age: 64y Patient returned from radiology by wheelchair with career guidance technician. ([id number]). --13: 08 03/02/20 Ac Wang RN ( 1330 pt moved to hallway 3 to open rm 7 for ambulance). --13:58 03/02/20 Ac Wang RN ( 1345 pt fitted with new air cast and cast shoe). --16:00 03/02/20 Ac Wang RN.DISPOSITION / DISCHARGE 14:08 03/02/20. BP: 124/76. MAP: 92. HR: 75. RR: 16. O2 saturation: 99%. Temp: 98.1 F. --14:08 03/02/20 [facility] Tech1 Departure time: 14:30 03/02/2020. --15:35 03/02/20 Concha Kohli RN Departure time: 14:30 03/02/2020. Condition at departure: unchanged. No learning barriers present. Discharge instructions provided and reviewed with the patient. Reviewed medication(s) side effects, precautions, dosing and course information. Prescription(s) sent electronically to pharmacy. Reviewed splint care instructions. Reviewed referrals. Provided to follow-up provider. Patient verbalized understanding. Written instructions provided in Eritrean. The patient was discharged by the physician assistant news director. She was discharged home. She left in a wheelchair and via taxi. --15:57 03/02/20 Ac Wang RN 14:30 03/02/20. Pain level now: 2/10. --15:58 03/02/20 Ac Wang RN.Locked/Released at 03/02/2020 16:00 by Ac Wang RN Name Value Range Interpretation Code Description Data Melanie rce(s) Supporting Document(s) ID Date Data Source [id number] 03/02/2020 12:27:00 PM EDT [facility] 1 Clinical Report - Physicians/Mid Levels [facility] Emergency Department [address] [place] [address] Phone #: ext- [phone] 03/02/2020 12:19 Patient: FABIANO RAMIREZ Sex: F : 1955 Age: 64y Time Seen: 12:21 03/02/2020. Arrived- By private vehicle. Historian- patient (Pt is a poor historian). Disposition decision: 14:04 03/02/2020.HISTORY OF PRESENT ILLNESS Chief Complaint: Injury to the right ankle. The injury happened just prior to arrival. The patient sustained a twisting injury (Pt states she rolled her right ankle this AM and now has lateral foot and ankle pain. She reports a longstanding h/o right ankle problems. She broke it several times as a child. She now wears an air splint routinely to help stabilize it. She does not follow podiatry ortho for this matter. No numbness or tingling). Occurred at home. Patient is experiencing moderate pain. No other injury. (Pt also c/o some urinary urgency and frequency for the past few days. She thinks she might have a UTI. She reports a h/o chronic UTIs. No fever or chills. She also states her seasonal allergies are exacerbated right now as well. She usually takes benadryl but only at night because it makes her tired.).REVIEW OF SYSTEMSNo chills, fatigue, fever, double vision or ear pain. No chest pain, cough, difficulty breathing, abdominalpain or diarrhea. No nausea, vomiting, skin rash or headache. She has had nasal congestion, urinaryproblems, joint pain, and difficulty with urination. She has had a runny nose (allergies). She has had asore throat (allergies). The patient has had urinary frequency.PAST HISTORYMedications:Eliquis Oral. MiraLax Oral 1 packet. Meclizine HCl Oral 50 mg , 2x a day. Albuterol Sulfate Inhalation 2 unit doses. ZyPREXA Oral (Tablet 10 mg), at bedtime. Potassium Chloride Oral (Packet 20 meq), 2x a day. Sudafed Oral 60 mg, 2x a day. LaMICtal Oral (Tablet 25 mg), 2x a day. Motrin IB Oral 400, as needed. KlonoPIN Oral 0.25 mg, at bedtime. HYDROcodone-Acetaminophen Oral (Solution 7.5-325 mg/15mL), as needed. Promethazine HCl Oral (Tablet 25 mg), as needed.Allergies:Darvacet.Demerol. 2 Clinical Report - Physicians/Mid Levels [facility] Emergency Department [address] [place] [address] Phone #: ext- [phone] 03/02/2020 12:19 Patient: FABIANO RAMIREZ Sex: F : 1955 Age: 64y Microdentin.SOCIAL HISTORYNever smoker. No alcohol use or drug use.ADDITIONAL NOTESThe nursing notes have been reviewed with agreement regarding the chief complaint, HPI, ROS, PMH andpatient medications and allergies.PHYSICAL EXAMVital Signs: 03/02/2020 12:21 BP: 150/84. MAP: 106. HR: 97. RR: 16. O2 saturation: 95%. Temp: 99.0 F.Have been reviewed and appear to be correct. Hypertensive. Heart rate normal. Respiratory ratenormal. Temperature normal. Oxygen saturation normal.Appearance: Alert. Oriented X3. No acute distress.Head: Head atraumatic.Eyes: Eyes normal inspection.ENT: Ears normal. Nose normal. Pharynx normal.Neck: Normal inspection.CVS: Normal heart rate and rhythm. Heart sounds normal.Respiratory: No respiratory distress. Breath sounds normal. Chest nontender.Abdomen: No visible injury. Soft and nontender.Back: Normal inspectio n.Skin: Skin intact. Skin warm and dry.Extremities: Right lateral ankle: moderate tenderness of the lateral ligaments. Neurovascular intactdistally. No erythema, swelling, laceration or deformity. No limitation in ROM. Right foot: moderatetenderness located in the proximal dorsal lateral aspect of the foot. Limited weight bearing secondary topain. No erythema or swelling. Foot and ankle exam otherwise negative. Extremities otherwise negative.CONFEDERATED SALISH ANKLE RULES: The need for X-rays is supported by the presence of bony tenderness at theposterior edge or tip of the lateral malleolus.Gait: The patient was unable to bear weight. (pt presents via EMS. states she cannot weight bear althoughshe was able to transfer from the bed to the commode).Neuro, Vascular and Tendons: Vascular status intact. Sensation intact. Motor intact. Tendon functionintact.Neuro: Oriented X 3.LABS, X-RAYS, AND EKGLaboratory Tests: Urinalysis: (OLE: 03/02/2020 12:40) ( MsgRcvd 03/02/2020 13:09) Final results Test Result Flag Units (Reference) URINALYSIS URINALYSIS SOURCE Clean Catch COLOR yellow (NORMAL: Yello CLARITY clear (NORMAL: Clear SPEC GRAVITY 1.010 (1.001 - 1.030 3 Clinical Report - Physicians/Mid Levels [facility] Emergency Department [address] [place] [address] Phone #: ext- [phone] 03/02/2020 12:19 --- Patient: FABIANO RAMIREZ Sex: F : 1955 Age: 64y pH 7 (5 - 9) GLUCOSE NORM (NORMAL: Negat BILIRUBIN NEG (NORMAL: Negat KETONE NEG (NORMAL: Negat PROTEIN NEG (NORMAL: Negat NITRITE POS (NORMAL: Negat BLOOD 10 A (NORMAL: Negat LEUK EST 500 A (NORMAL: Negat UROBILINOGEN NOR (less than 1.0 MICROSCOPIC See Below WBC 40 - 50 A (NORMAL: NONE RBC 1 - 3 (NORMAL: NONE EPITHELIAL MANY A (NORMAL: NONE BACTERIA 2+ MOD A (NORMAL: NONE Ankle Complete Right: (OLE: 03/02/2020 12:49) ( MsgRcvd 03/02/2020 15:57) In Progress ANKLE COMPLETE RT Reason(s): rolled ankle this AM now c/o lateral ankle pain TRANSPORTATION: S IV? O2? Oxygen?(No) Room: ED Foot Complete Right: (OLE: 03/02/2020 12:49) ( MsgRcvd 03/02/2020 15:57) In Progress FOOT COMPLETE-3 OR MORE VW RT Reason(s): lateral foot pain after rolling ankle this AM TRANSPORTATION: WC IV? O2? Oxygen?(No) Room: ED.PROGRESS AND PROCEDURESCourse of Care: 12:56 03/02/20. Right foot and ankle pain after rolling it this AM. X-rays ordered. Willadjust plan prn based on results. Pt also c/o UTI symptoms. UA pending. 13:15 03/02/20. UA consistent with UTI. Pt afebrile and tolerating PO well. Will treat with bactrim and adjust plan prn based on urine culture and sensitivity. 14:03 03/02/20. right ankle x-ray: Hoang richard Michael - 03/02/2020 1:44:19 PM No acute disease right foot x- ray: Hoang richard Michael - 03/02/2020 1:43:24 PM inf calc spur. Disposition: Discharged home. Discharge decision based on the following: patient's condition is stable; patient's exam is stable; moderately abnormal test results; stable condition on repeat evaluation; social support is adequate; transportation is available; follow-up is available; clinical impression is consistent with outpatient treatment.CLINICAL IMPRESSION Sprain of the right ankle. Acute urinary tract infection with cystitis. heel spur noted on foot x- ray (chronic). 4 Clinical Report - Physicians/Mid Levels [facility] Emergency Department [address] [place] [address] Phone #: ext- [phone] 03/02/2020 12:19 Patient: [facility]ABIAN[facility]IRE[id number] Sex: F : 1955 Age: 64yINSTRUCTIONS Apply ice. Wear air splint as needed. Elevate affected areas above chest level. (Take the prescribed medication as directed for the UTI. You can wear the foot and ankle brace as needed for the foot and ankle pain. Because the pain is chronic, you may want to speak your regular provider to see if you would benefit from an orthopedic consult.). Warnings: GENERAL WARNINGS: Return or contact your physician immediately if your condition worsens or changes unexpectedly, if not improving as expected, or if other problems arise. Specifically return if problem worsens or fails to resolve. Your Current Medications: Your current home medications have been reviewed. CONTINUE TAKING THE FOLLOWING MEDICATIONS: Albuterol Sulfate Inhalation : 2 unit doses. Eliquis Oral. HYDROcodone-Acetaminophen Oral : Solution 7.5-325 mg/15mL, prn. KlonoPIN Oral : 0.25 mg, at bedtime. LaMICtal Oral : Tablet 25 mg, 2x a day. Meclizine HCl Oral : 50 mg 2x a day. MiraLax Oral : 1 packet. Motrin IB Oral : 400, prn. Potassium Chloride Oral : Packet 20 meq, 2x a day. Promethazine HCl Oral : Tablet 25 mg, prn. Sudafed Oral : 60 mg 2x a day. ZyPREXA Oral : Tablet 10 mg, at bedtime. Prescription Medications: Cipro 500 mg tablet Take 1 tablet twice a day -- Dispense 10 tablet. Refills: 0. Substitution permitted. [employer] [id number] - [address] [place] [address]. . Bactrim 400 mg-80 mg tablet Take 1 tablet twice a day -- Dispense 10 tablet. Refills: 0. Substitution permitted. [employer] [address][id number] - [address] [facility] ; [place] [address]. . Understanding of the discharge instructions verbalized by patient. 5 Clinical Report - Physicians/Mid Levels [facility] Emergency Department [address] [place] [address] Phone #: ext- [phone] 03/02/2020 12:19 Patient: FABIANO RAMIREZ Sex: F : 1955 Age: 64y(Electronically signed by EMRE Puga 03/02/2020 22:55) Name Value Range Interpretation Code Description Data Melanie rce(s) Supporting Document(s) ID Date Data Source [id number] 03/02/2020 12:27:00 PM EDT [facility] FABIANO RAMIRE[facility] VisitID: [id number] Date: 11:50Pt urine grew pseudomonas aeruginosea; Pt was d/c on Cipro 500mg PO BID, and Bactrim PO SSCx0cync; Cipro is resistent and bactrim not tested. Attempted to call pt multiple times on 03/05/20 but said"busy", left voicemail for emergency contact who did not call back. Called again today at 1004 and ptanswered, per MD boyle yesterday pt is supposed to reculture urine in 10 days, pt verbalizedunderstanding; Pt states antbx will be delivered tomorrow and she was talked to at length about when tocome back to ER, or if she feels worse in any way, fever, unable to get prescriptions, etc, and sheverbalized understanding.(Electronically signed by Rhiannon Latham R.N. - 03/06/2020 11:50) Name Value Range Interpretation Code Description Data Melanie rce(s) Supporting Document(s) ID Date Data Source [id number] 03/06/2020 09:28:00 AM EDT [address] [address] [place] [address] PHONE: [phone] FAX: [phone] Name .................. : CANDIDO MARIO Acct Number.................. : [id number] [facility]......... [facility] Number ................... : [id number] Stay type ............. : E/R Discharge Date......... ... : 03/02/20 Admit Date ......... : 03/02/20 Admit Phys .................... : GREG Kenny Date of ....... : 1955 Family Phys ................... : NON STAFF Phone .................. : [phone] Age ................................ : 64 Film# .................. .:[id number] Sex ................................. : F Unsigned transcriptions are preliminary reports and do not represent a medical or legal document [place] COMPLETE RT [id number] COMPLETE:03/02/20 15:57 MICHAEL [id number] Reason(s): rolled ankle this AM now c/o lateral ankle pain RIGHT ANKLE X- RAY: HISTORY: Trauma. FINDINGS: There is prominent inferior calcaneal spurring. No acute fractures are seen. The ankle mortise is intact. The bony density adjacent to the dorsal aspect of the talonavicular joint suggests an old nonunited fracture. IMPRESSION: Inferior calcaneal spurring. Electronically Reviewed and Signed By Jasen Bolton MD , 03/06/20 09:28, [facility] Transcribe Initials: DZ , Transcribe Date: 03/03/20 06:07, Dictation Date: Copy for: MAYE CHARLENE via fax Copy for: EMERGENCY DEPT via modem Copy for: 710 MED REC DISCHARGED Page 1 of 1 Name Value Range Interpretation Code Description Data Melanie rce(s) Supporting Document(s) ID Date Data Source [id number] 03/06/2020 09:28:00 AM EDT [facility] [address] [place] [address] PHONE: [phone] FAX: [phone] Name .................. : CANDIDO MARIO Acct Number.................. : [id number] ROOM. ................. : TR-07 Number ................... : [id number] Stay type ............. : E/R Discharge Date......... ... : 03/02/20 Admit Date ......... : 03/02/20 Admit Phys .................... : AMERNATH L Date of ....... : 1955 Family Phys ................... : NON STAFF Phone .................. : [phone] Age ................................ : 64 Film# .................. .:[id number] Sex ................................. : F Unsigned transcriptions are preliminary reports and do not represent a medical or legal document [place]OT COMPLETE-[address] [place] [id number] COMPLETE:03/02/20 15:57 MICHAEL [id number] Reason(s): lateral foot pain after rolling ankle this AM RIGHT FOOT X-RAY: HISTORY: Trauma. FINDINGS: There is prominent inferior calcaneal spurring. A bony density adjacent to the dorsal aspects of the talonavicular joint suggests an old fracture. No acute fractures are seen. The articular surfaces are intact. IMPRESSION: Inferior calcaneal spurring. Electronically Reviewed and Signed By Jasen Bolton MD , 03/06/20 09:28, [facility] Transcribe Initials: SHANNAN , Transcribe Date: 03/03/20 06:06, Dictation Date: Copy for: MAYE CHANG via fax Copy for: EMERGENCY DEPT via modem Copy for: 710 MED REC DISCHARGED Page 1 of 1 Name Value Range Interpretation Code Description Data Melanie rce(s) Supporting Document(s) ID Date Data Source [id number] 03/05/2020 03:48:00 PM EDT [facility] Name Value Range Interpretation Code Description Data Melanie rce(s) Supporting Document(s) CULTURE URINE [facility] spital _CULTURE URINE_$$[id number]$$[id number]$$855320$$393512$$363649$$820727$$705032$$825776$$982022$$ 158658$$717348$$806141$$671522$$723368$$917386$$950660$$836987$$045348$$979265$$ 843234$$058208$$189135$$183685$$913148$$613852$$847135$$967855 -- Continued on next page --Patient: CANDIDO MARIO Order: [id number] Page 2Culture: CULTURE URINE Status: Final ==== -- Continued on next page --Patient: CANDIDO MARIO Order: [id number] Page 2Culture: CULTURE URINE Status: Prelim =====$$[id number]$$[id number] DATE/TIME: 03/05/2020 15:05Culture: CULTURE URINE Status: FinalIsolate 1 Pseudomonas aeruginosa Flag: A . . . . . . .5Greater than 100,000 colony forming units per mL Previous result entered on 03/04/2020 05:39 ET Gram negative rodsUrine Culture,Comprehensive: [id number] aeruginosa Flag: APatient: CANDIDO MARIO Order: [id number] Page 3Culture: CULTURE URINE Status: Final ====ISOLATE 1 Pseudomonas aeruginosa Isolate 1Antibiotic YONG IntUnits ug/mL -----Amikacin S S . . . . . .12-5Cefepime S S . . . . . .6644-9Ceftazidime S S . . . . . .133-9Ciprofloxacin R R . . . . . .185-9Gentamicin I I . . . . . .267-5Imipenem S S . . . . . .279-0Levofloxacin R R . . . . . .63378- 8Meropenem S S . . . . . .6652-2Piperacillin S S . . . . . .408-5Ticarcillin S S . . . . . .500-9Tobramycin S S . . . . . .508-2P1 Test performed by: [facility] #: [id number] [address] [place] [address] [id number] [facility] [id number] Director : Ross Jeffers MD NPI #:Forensic Audit Expert : 03/05/[email or web address].SENT REF 03/05/20.1548.XMT.SENT REF ID Date Data Source [id number] 03/02/2020 01:08:00 PM EDT [facility] Name Value Range Interpretation Code Description Data Melanie rce(s) Supporting Document(s) URINALYSIS [facility] Hospi alberto URINALYSIS SOURCE Clean Catch [facility] ital COLOR yellow NORMAL: Yellow [facility] H ospital CLARITY clear NORMAL: Clear [facility] Ho spital Specific gravity of Urine by Test strip 1.010 1.001 - 1.030 [facility] pH 7 5 - 9 [facility] Glucose [Mass/volume] in Urine by Test strip NORM [facility] Bilirubin.total [Presence] in Urine by Test strip NEG NORMAL: Negative [facility] Ketones [Presence] in Urine by Test strip NEG NORMAL: Negative [facility] Protein [Mass/volume] in Urine by Test strip NEG [facility]AL[facility] Nitrite [Presence] in Urine by Test strip POS NORMAL: Negative [facility] BLOOD 10 NORMAL: Negative [facility] Leukocyte esterase [Presence] in Urine by Test strip 500 KANE L: Negative [facility] Urobilinogen [Mass/volume] in Urine by Test strip NOR less deanna n 1.0 mg/dL [facility] MICROSCOPIC See Below [facility] Hosp ital WBC 40 - 50 NORMAL: NONE SEEN A [facility] Erythrocytes [#/volume] in Urine by Test strip 1 - 3 NORMAL: NON E SEEN [facility] EPITHELIAL MANY NORMAL: NONE SEEN A [facility] Bacteria [Presence] in Urine sediment by Light microscopy 2+ MOD NORMAL: NONE SEEN A [facility] ID Date Data Source [id number] 01/23/2020 09:17:00 AM EDT [facility] ([facility]) Name Value Range Interpretation Code Description Data Melanie rce(s) Supporting Document(s) Bedside Glucose 115 mg/dL 80-115 [facility] ([facility]) ID Date Data Source [id number] 01/23/2020 08:56:00 AM EDT [facility] ([facility]) Name Value Range Interpretation Code Description Data Melanie rce(s) Supporting Document(s) Reflex Urine Culture Laboratory test result [facility] ([facility]) <content>FULL REPORT IN LAB NOTES ([facility] a nd [facility]).</content>
<content></content>
<content>ORGANISM 1: PSEUDOMONAS AERUGINOSA</content>
<content></content>
<content>COLONY COUNT 50,000</content>
<content></content>
<content></content>
<content>OR GANISM 1: PSEUDOMONAS AERUGINOSA</content>
<content></content>
<content> PSEUDOMONAS AERUGINOSA: REACTION</content>
<content>GENTAMICIN IV 80mg q8h 8 I</content>
<content>LEVOFLOXACIN IV 500mg qd >=8 R</content>
<content>LEVOFLOXACIN PO 250mg qd >=8 R</content>
<content>LEVOFLOXACIN PO 500mg qd >=8 R</content>
<content>TOBRAMYCIN IV 80mg q8h <=1 S</content>
<content>CEFTAZIDIME IV 1gm q8h 2 S</content>
<content>PIPERACILLIN/TAZOBACTAM IV 2.25 gm q6h <=4 S</content>
<content>MEROPENEM IV 1 gm q8h 0.5 S</content>
<content>MEROPENEM IV 500 mg q8h 0.5 S</content>
<content>CEFEPIME IV 1 gm q12h 4 S</content>
<content> CEFEPIME IV 2 gm q12h 4 S</content>
<content></content> ID Date Data Source [id number] 01/23/2020 08:56:00 AM EDT [facility] Name Value Range Interpretation Code Description Data Melanie rce(s) Supporting Document(s) Appearance, Urine RFX Laboratory test result [facility] Specific [place] Ur Auto RFX 1.006 1.002-1.035 [facility] PH,Urine RFX 8.0 units 5.0-9.0 [facility] Color, Urine RFX Laboratory test result [facility] Protein, Urine Auto RFX Laboratory test result [facility] Ketone, Urine Auto RFX Laboratory test result [facility] Glucose, Urine (Ua) Auto RFX Laboratory test result [facility] Urobilinogen, Urine Auto RFX 2.0 mg/dL 0.0-2.0 [facility] Nitrite, Urine Auto RFX Laboratory test result [facility] Bilirubin, Urine Auto RFX Laboratory test result [facility] Leukocyte Esterase Ur Auto RFX Laboratory test result [facility] WBC, Urine Auto RFX 16 /HPF 0-3 [facility] Blood, Urine Blood RFX Laboratory test result [facility] RBC, Urine Auto RFX 7 /HPF 0-3 [facility] Squam Epithelial Cell Ur Aurfx 1 /HPF 0-6 [facility] ([facility]) Bacteria, Urine Auto RFX Laboratory test result [facility] Hyaline Cast, Urine Auto RFX 0 /LPF 0-1 M [facility] Amorphous Sediment RFX Laboratory test result [facility] ID Date Data Source [id number] 01/01/2020 08:31:00 AM EDT [facility] Name Value Range Interpretation Code Description Data Melanie rce(s) Supporting Document(s) Reflex Urine Culture Laboratory test result [facility] <content>FULL REPORT IN LAB NOTES ([facility]).</content>
<content></content>
<content>ORGANISM 1: ENTEROCOCCUS FAECALIS</content>
<content></content>
<content>COLONY COUNT >100,000</content>
<content></content>
<content></content>
<content> ORGANISM 1: ENTEROCOCCUS FAECALIS</content>
<content></content>
<content>ENTEROCOCCUS FAECALIS: REACTION</content>
<content>TETRACYCLINE PO 250 mg qid >=16 R</content>
<content> PENICILLIN G IV 1 mu q6H 2 S</content>
<content>PENICILLIN G IV 1 mu q6h 2 S</content>
<content>PENICILLIN G PO 250mg q6h fasting 2 S</content>
<content>AMPICILLIN IV 500mg q6h <=2 S</content>
<content>AMPICILLIN PO 500mg q6h fasting <=2 S</content>
<content>ERYTHROMYCIN IV 500mg q6h >=8 R</content>
<content>ERYTHROMYCIN PO 500mg q6h >=8 R</content>
<content>GENTAMICIN 500 IV 80mg q8h R</content>
<content>NITROFURANTOIN PO 100mg BID <=16 S</content>
<content>LEVOFLOXACIN IV 500mg qd >=8 R</content>
<content> LEVOFLOXACIN PO 250mg qd >=8 R</content>
<content>LEVOFLOXACIN PO 500mg qd >=8 R</content>
<content>CIPROFLOXACIN IV 400mg bid >=8 R</content>
<content>CIPROFLOXACIN PO 500mg q12h >=8 R</content>
<content>VANCOMYCIN IV 500mg q8h 1 S</content>
<content>LINEZOLID (ZYVOX) IV 600MG Q12HR 1 S</content>
<content> LINEZOLID (ZYVOX) PO 600MG Q12HR 1 S</content>
<content></content> ID Date Data Source [id number] 01/01/2020 08:31:00 AM EDT [facility] Name Value Range Interpretation Code Description Data Melanie rce(s) Supporting Document(s) PH,Urine RFX 7.0 units 5.0-9.0 [facility] Color, Urine RFX Laboratory test result [facility]) Appearance, Urine RFX Laboratory test result [facility] Specific Dawson Ur Auto RFX 1.016 1.002-1.035 [facility] Glucose, Urine (Ua) Auto RFX Laboratory test result [facility] Protein, Urine Auto RFX Laboratory test result [facility]) Urobilinogen, Urine Auto RFX 0.2 mg/dL 0.0-2.0 [facility]) Bilirubin, Urine Auto RFX Laboratory test result [facility] Ketone, Urine Auto RFX Laboratory test result [facility]) Nitrite, Urine Auto RFX Laboratory test result [facility] WBC, Urine Auto RFX 5 /HPF 0-3 [facility] ([facility] Blood, Urine Blood RFX Laboratory test result [facility] ([facility]) Leukocyte Esterase Ur Auto RFX Laboratory test result [facility] ([facility]) RBC, Urine Auto RFX 1 /HPF 0-3 [facility] ([facility]) Bacteria, Urine Auto RFX Laboratory test result [facility] ([facility]) Mucus, Urine RFX Laboratory test result [facility] ([facility]) Squam Epithelial Cell Ur Aurfx 3 /HPF 0-6 [facility] ([facility]) Hyaline Cast, Urine Auto RFX 0 /LPF 0-1 M [facility] ([facility]) ID Date Data Source [id number] 12/26/2019 05:47:00 AM EDT [facility] ([facility]) Name Value Range Interpretation Code Description Data Melanie rce(s) Supporting Document(s) Reflex Urine Culture Laboratory test result [facility] <content>FULL REPORT IN LAB NOTES ([facility] a [facility]).</content>
<content></content>
<content>ORGANISM 1: ENTEROCOCCUS FAECALIS</content>
<content></content>
<content>COLONY COUNT >100,000</content>
<content></content>
<content></content>
<content> ORGANISM 1: ENTEROCOCCUS FAECALIS</content>
<content></content>
<content>ENTEROCOCCUS FAECALIS: REACTION</content>
<content>TETRACYCLINE PO 250 mg qid >=16 R</content>
<content> PENICILLIN G IV 1 mu q6H 4 S</content>
<content>PENICILLIN G IV 1 mu q6h 4 S</content>
<content>PENICILLIN G PO 250mg q6h fasting 4 S</content>
<content>AMPICILLIN IV 500mg q6h <=2 S</content>
<content>AMPICILLIN PO 500mg q6h fasting <=2 S</content>
<content>ERYTHROMYCIN IV 500mg q6h >=8 R</content>
<content>ERYTHROMYCIN PO 500mg q6h >=8 R</content>
<content>GENTAMICIN 500 IV 80mg q8h R</content>
<content>NITROFURANTOIN PO 100mg BID <=16 S</content>
<content>LEVOFLOXACIN IV 500mg qd >=8 R</content>
<content> LEVOFLOXACIN PO 250mg qd >=8 R</content>
<content>LEVOFLOXACIN PO 500mg qd >=8 R</content>
<content>CIPROFLOXACIN IV 400mg bid >=8 R</content>
<content>CIPROFLOXACIN PO 500mg q12h >=8 R</content>
<content>VANCOMYCIN IV 500mg q8h 1 S</content>
<content>LINEZOLID (ZYVOX) IV 600MG Q12HR 1 S</content>
<content> LINEZOLID (ZYVOX) PO 600MG Q12HR 1 S</content>
<content></content> ID Date Data Source [id number] 12/26/2019 05:47:00 AM EDT [facility] Name Value Range Interpretation Code Description Data Melanie rce(s) Supporting Document(s) Appearance, Urine RFX Laboratory test result [facility]) Specific [place] Ur Auto RFX 1.015 1.002-1.035 [facility] PH,Urine RFX 7.0 units 5.0-9.0 [facility] ([facility]) Color, Urine RFX Laboratory test result [facility] ([facility]) Protein, Urine Auto RFX Laboratory test result [facility] Glucose, Urine (Ua) Auto RFX Laboratory test result [facility] ([facility]) Ketone, Urine Auto RFX Laboratory test result [facility] ([facility]) Nitrite, Urine Auto RFX Laboratory test result [facility] Urobilinogen, Urine Auto RFX 0.2 mg/dL 0.0-2.0 [facility]) Bilirubin, Urine Auto RFX Laboratory test result [facility]) Leukocyte Esterase Ur Auto RFX Laboratory test result [facility] ([facility]) WBC, Urine Auto RFX 6 /HPF 0-3 [facility] Blood, Urine Blood RFX Laboratory test result [facility] ([facility]) RBC, Urine Auto RFX 13 /HPF 0-3 [facility] Mucus, Urine RFX Laboratory test result [facility] ([facility]) Hyaline Cast, Urine Auto RFX 0 /LPF 0-1 [facility] ([facility]) Squam Epithelial Cell Ur Aurfx 3 /HPF 0-6 [facility] ([facility]) Bacteria, Urine Auto RFX Laboratory test result [facility] ([facility]) Amorphous Sediment RFX Laboratory test result [facility] ([facility]) ID Date Data Source [id number] 11/27/2019 07:23:00 AM EDT [facility] Name Value Range Interpretation Code Description Data Melanie rce(s) Supporting Document(s) Reflex Urine Culture Laboratory test result [facility]) FULL REPORT IN LAB NOTES ([facility] ). SPECIMEN APPEARS CONTAMINATED ID Date Data Source [id number] 11/27/2019 07:23:00 AM EDT [facility] Name Value Range Interpretation Code Description Data Melanie rce(s) Supporting Document(s) Appearance, Urine RFX Laboratory test result [facility] ([facility]) Color, Urine RFX Laboratory test result [facility] ([facility]) PH,Urine RFX 7.0 units 5.0-9.0 [facility] ([facility]) Glucose, Urine (Ua) Auto RFX Laboratory test result [facility] ([facility]) Protein, Urine Auto RFX Laboratory test result [facility] ([facility]) Specific Dawson Ur Auto RFX 1.006 1.002-1.035 [facility] ([facility]) Urobilinogen, Urine Auto RFX 0.2 mg/dL 0.0-2.0 [facility] Bilirubin, Urine Auto RFX Laboratory test result [facility] ([facility]) Ketone, Urine Auto RFX Laboratory test result [facility] Blood, Urine Blood RFX Laboratory test result [facility]) Leukocyte Esterase Ur Auto RFX Laboratory test result [facility]) Nitrite, Urine Auto RFX Laboratory test result [facility]) Bacteria, Urine Auto RFX Laboratory test result [facility] RBC, Urine Auto RFX 4 /HPF 0-3 [facility] WBC, Urine Auto RFX 12 /HPF 0-3 [facility] Mucus, Urine RFX Laboratory test result [facility] ([facility]) Squam Epithelial Cell Ur Aurfx 8 /HPF 0-6 [facility] Hyaline Cast, Urine Auto RFX 0 /LPF 0-1 [facility] Amorphous Sediment RFX Laboratory test result [facility] ID Date Data Source [id number] 11/06/2019 08:38:00 AM EDT [facility] ([facility]) Name Value Range Interpretation Code Description Data Melanie rce(s) Supporting Document(s) Reflex Urine Culture Laboratory test result [facility] ([facility]) <content>FULL REPORT IN LAB NOTES ([facility] a nd [facility]).</content>
<content></content>
<content>ORGANISM 1: ENTEROCOCCUS FAECALIS</content>
<content></content>
<content>COLONY COUNT >100,000</content>
<content></content>
<content></content>
<content> ORGANISM 1: ENTEROCOCCUS FAECALIS</content>
<content></content>
<content>ENTEROCOCCUS FAECALIS: REACTION</content>
<content>TETRACYCLINE PO 250 mg qid >=16 R</content>
<content> PENICILLIN G IV 1 mu q6H 2 S</content>
<content>PENICILLIN G IV 1 mu q6h 2 S</content>
<content>PENICILLIN G PO 250mg q6h fasting 2 S</content>
<content>AMPICILLIN IV 500mg q6h <=2 S</content>
<content>AMPICILLIN PO 500mg q6h fasting <=2 S</content>
<content>ERYTHROMYCIN IV 500mg q6h >=8 R</content>
<content>ERYTHROMYCIN PO 500mg q6h >=8 R</content>
<content>GENTAMICIN 500 IV 80mg q8h R</content>
<content>NITROFURANTOIN PO 100mg BID <=16 S</content>
<content>LEVOFLOXACIN IV 500mg qd >=8 R</content>
<content> LEVOFLOXACIN PO 250mg qd >=8 R</content>
<content>LEVOFLOXACIN PO 500mg qd >=8 R</content>
<content>CIPROFLOXACIN IV 400mg bid >=8 R</content>
<content>CIPROFLOXACIN PO 500mg q12h >=8 R</content>
<content>VANCOMYCIN IV 500mg q8h 1 S</content>
<content>LINEZOLID (ZYVOX) IV 600MG Q12HR 1 S</content>
<content> LINEZOLID (ZYVOX) PO 600MG Q12HR 1 S</content>
<content></content> ID Date Data Source [id number] 11/06/2019 08:38:00 AM EDT [facility] Name Value Range Interpretation Code Description Data Melanie rce(s) Supporting Document(s) Gats Culture (Neg Strep SCR) Laboratory test result [facility] FULL REPORT IN LAB NOTES ([facility] and [facility] ). NEGATIVE FOR STREP PYOGENES (GROUP A) ID Date Data Source [id number] 11/06/2019 08:38:00 AM EDT [facility] Name Value Range Interpretation Code Description Data Melanie rce(s) Supporting Document(s) Appearance, Urine RFX Laboratory test result [facility] ([facility]) Color, Urine RFX Laboratory test result [facility] ([facility]) PH,Urine RFX 8.0 units 5.0-9.0 [facility] Protein, Urine Auto RFX Laboratory test result [facility] Glucose, Urine (Ua) Auto RFX Laboratory test result [facility] Specific Dawson Ur Auto RFX 1.003 1.002-1.035 [facility] Ketone, Urine Auto RFX Laboratory test result [facility] Nitrite, Urine Auto RFX Laboratory test result [facility] ([facility]) Urobilinogen, Urine Auto RFX 0.2 mg/dL 0.0-2.0 [facility] ([facility] Bilirubin, Urine Auto RFX Laboratory test result [facility] ([facility]) WBC, Urine Auto RFX 3 /HPF 0-3 [facility] Leukocyte Esterase Ur Auto RFX Laboratory test result [facility] ([facility]) Blood, Urine Blood RFX Laboratory test result [facility]) Squam Epithelial Cell Ur Aurfx 2 /HPF 0-6 [facility] ([facility]) Bacteria, Urine Auto RFX Laboratory test result [facility] ([facility]) RBC, Urine Auto RFX 1 /HPF 0-3 [facility] ([facility]) Mucus, Urine RFX Laboratory test result [facility] ([facility]) Hyaline Cast, Urine Auto RFX 0 /LPF 0-1 M [facility] ([facility] Amorphous Sediment RFX Laboratory test result [facility]) ID Date Data Source [id number] 10/03/2019 09:43:00 AM EDT [facility] ([facility]) Name Value Range Interpretation Code Description Data Melanie rce(s) Supporting Document(s) Appearance, Urine RFX Laboratory test result [facility] ([facility]) Color, Urine RFX Laboratory test result [facility] ([facility]) Specific Dawson Ur Auto RFX 1.023 1.002-1.035 [facility] PH,Urine RFX 6.0 units 5.0-9.0 [facility] ([facility]) Protein, Urine Auto RFX Laboratory test result [facility] ([facility]) Glucose, Urine (Ua) Auto RFX Laboratory test result [facility] ([facility]) Urobilinogen, Urine Auto RFX 0.2 mg/dL 0.0-2.0 [facility] ([facility]) Ketone, Urine Auto RFX Laboratory test result [facility] ([facility]) Blood, Urine Blood RFX Laboratory test result [facility] ([facility]) Nitrite, Urine Auto RFX Laboratory test result [facility] ([facility]) Bilirubin, Urine Auto RFX Laboratory test result [facility] ([facility]) Leukocyte Esterase Ur Auto RFX Laboratory test result [facility] ([facility]) Bacteria, Urine Auto RFX Laboratory test result [facility] ([facility]) WBC, Urine Auto RFX 41 /HPF 0-3 [facility] ([facility] RBC, Urine Auto RFX 11 /HPF 0-3 [facility] ([facility]) Squam Epithelial Cell Ur Aurfx 8 /HPF 0-6 [facility] ([facility]) Mucus, Urine RFX Laboratory test result [facility] ([facility]) Hyaline Cast, Urine Auto RFX 0 /LPF 0-1 M [facility] ([facility]) Calcium Oxalate Crystals RFX Laboratory test result [facility] ([facility]) ID Date Data Source [id number] 10/03/2019 09:43:00 AM EDT [facility] ([facility]) Name Value Range Interpretation Code Description Data Melanie rce(s) Supporting Document(s) Reflex Urine Culture Laboratory test result [facility]) FULL REPORT IN LAB NOTES (eCW and [facility] ). SPECIMEN APPEARS CONTAMINATED ID Date Data Source [id number] 10/03/2019 08:28:00 AM EDT [facility] ([facility]) Name Value Range Interpretation Code Description Data Melanie rce(s) Supporting Document(s) Laboratory test finding (navigational concept) 38.0 % 38.0-51.0 [facility] ([facility]) Laboratory test finding (navigational concept) 143 meq/L 136-145 [facility] ([facility]) Laboratory test finding (navigational concept) 81 mg/dL 70-105 [facility] ([facility]) Laboratory test finding (navigational concept) 4.1 meq/L 3.5-5.1 [facility] ([facility]) Laboratory test finding (navigational concept) 104 meq/L 98-109 [facility] ([facility]) Laboratory test finding (navigational concept) 5.0 mg/dL 4.5-5.3 [facility] ([facility]) Laboratory test finding (navigational concept) 28.0 MM/L 23.0-27.0 [facility] ([facility]) Laboratory test finding (navigational concept) 0.9 mg/dL 0.6-1.3 [facility] ([facility]) Laboratory test finding (navigational concept) 12 mg/dL 8-26 [facility] ([facility]) ID Date Data Source [id number] 10/03/2019 08:23:00 AM EDT [facility] ([facility]) Name Value Range Interpretation Code Description Data Melanie rce(s) Supporting Document(s) Red Blood Count 4.19 10 4.00-5.40 [facility] ([facility]) White Blood Count 5.5 10 4.0-10.0 [facility] ([facility]) Mean Corpuscular Volume 95.0 fl 80.0-96.0 [facility] ([facility]) Hemoglobin 12.4 g/dL 12.0-15.5 [facility] ([facility]) Hematocrit 39.8 % 36.0-47.0 [facility] [facility] Mean Corpuscular Hemoglobin 29.6 pg 27.0-33.0 [place] [facility] ([facility]) Platelet Count, Automated 222 10 150-450 [facility] NT ([facility]) Mean Corpuscular HGB Conc 31.2 g/dL 32.0-36.5 [facility] NT ([facility]) Red Cell Distribution Width 15.4 % 11.5-14.5 [place] [facility] ([facility]) Lymph % 28.3 % 24.0-44.0 [facility] ([place] [facility]) [place] % 6.0 % 0.0-5.0 [facility] ([place] [facility]) Eos % 3.3 % 0.0-3.0 [facility] ([place] [facility]) Neutrophils % 61.1 % 36.0-66.0 [facility] ([facility]) Immature Granulocyte % 0.9 % 0-3.0 [facility] ([facility]) Baso % 0.4 % 0.0-1.0 [facility] ([place] [facility]) Nucleated Red Blood Cell % 0.0 % 0-0 MED [facility] ([facility]) [place] # 0.3 10 0.0-0.8 [facility] ([place] [facility]) Lymph # 1.6 10 1.5-5.0 [facility] ([place] [facility]) Neutrophils # 3.3 10 1.5-8.5 [facility] ([facility]) Eos # 0.2 10 0.0-0.5 [facility] ([place] [facility]) Baso # 0.0 10 0.0-0.2 [facility] ([place] [facility]) ID Date Data Source [id number] 10/03/2019 08:23:00 AM EDT [facility] ([facility]) Name Value Range Interpretation Code Description Data Melanie rce(s) Supporting Document(s) Alt/SGPT 21 U/L 12-78 [facility] ([place] [facility]) Alkaline Phosphatase 66 U/L 45-117 [facility] ([facility]) Ast/Sgot 15 U/L 7-37 [facility] ([place] [facility]) Bilirubin,Total 0.3 mg/dL 0.2-1.0 [facility] ([facility]) Total Protein 7.1 GM/DL 6.4-8.2 [facility] ([facility]) Bilirubin,Direct Laboratory test result 0.0-0.2 [facility] ([facility]) Albumin/Globulin Ratio 1.03 1.00-1.93 [facility] ([facility]) Albumin 3.6 GM/DL 3.2-5.2 [facility] ([place] [facility]) ID Date Data Source [id number] 10/02/2019 02:57:00 PM EDT [facility] ([facility]) Name Value Range Interpretation Code Description Data Melanie rce(s) Supporting Document(s) Lipoprotein lipase [Enzymatic activity/volume] in Serum or P lasma 177 U/L 73-393 [facility] ([facility]) ID Date Data Source [id number] 10/02/2019 02:57:00 PM EDT [facility] ([facility]) Name Value Range Interpretation Code Description Data Melanie rce(s) Supporting Document(s) Glucose, Fasting 118 mg/dL 70-100 [facility] ([facility]) Creatinine For GFR 0.80 mg/dL 0.55-1.30 [facility] ([facility]) Blood Urea Nitrogen 15 mg/dL 7-18 [facility] ([facility]) Glomerular Filtration Rate Laboratory test result [facility] ([facility]) <content>Units are mL/min/1.73 m2</content>
<content></content>
<content>Chronic Kidney Disease Staging per NKF:</content>
<content></content>
<content>Stage I & II GFR >=60 Normal to Mildly Decreased</content>
<content>Stage III GFR 30-59 Moderately Decreased</content>
<content>Stage IV GFR 15-29 Severely Decreased</content>
<content>Stage V GFR <15 Very Little GFR Left</content>
<content>ESRD GFR <15 on DATA TRANSCRIBER</content>
<content></content> Sodium Level 143 meq/L 136-145 [facility] ([facility]) Chloride Level 109 meq/L 98-107 [facility] ([facility]) Potassium Serum 4.3 meq/L 3.5-5.1 [facility] ([facility]) Anion Gap 3 meq/L 8-16 [facility] ([place] [facility]) Calcium Level 8.6 mg/dL 8.8-10.2 [facility] ([facility]) Carbon Dioxide Level 31 meq/L 21-32 [facility] ([facility]) ID Date Data Source [id number] 10/02/2019 02:57:00 PM EDT [facility] ([facility]) Name Value Range Interpretation Code Description Data Melanie rce(s) Supporting Document(s) Alkaline Phosphatase 69 U/L 45-117 [facility] Ast/Sgot 17 U/L 7-37 [facility] ([place] [facility]) Alt/SGPT 20 U/L 12-78 [facility] ([place] [facility]) Albumin 3.5 GM/DL 3.2-5.2 [facility] ([place] [facility]) Bilirubin,Total 0.2 mg/dL 0.2-1.0 [facility] ([facility]) Total Protein 7.0 GM/DL 6.4-8.2 [facility] ([facility]) Bilirubin,Direct Laboratory test result 0.0-0.2 [facility] ([facility]) Albumin/Globulin Ratio 1.00 1.00-1.93 [facility] ([facility]) ID Date Data Source [id number] 10/02/2019 02:57:00 PM EDT [facility] ([facility]) Name Value Range Interpretation Code Description Data Melanie rce(s) Supporting Document(s) Red Blood Count 4.11 10 4.00-5.40 [facility] ([facility]) Hemoglobin 12.2 g/dL 12.0-15.5 [facility] [facility]) White Blood Count 7.2 10 4.0-10.0 [facility] ([facility]) Mean Corpuscular Hemoglobin 29.7 pg 27.0-33.0 [place] [facility] ([facility]) Mean Corpuscular Volume 94.6 fl 80.0-96.0 [facility] ([facility]) Mean Corpuscular HGB Conc 31.4 g/dL 32.0-36.5 MED[facility] NT ([facility]) Hematocrit 38.9 % 36.0-47.0 [facility] ([place] [facility]) Neutrophils % 62.0 % 36.0-66.0 [facility] ([facility]) Platelet Count, Automated 215 10 150-450 [facility] NT ([facility]) Red Cell Distribution Width 15.3 % 11.5-14.5 [facility] ([facility]) [place] % 7.9 % 0.0-5.0 [facility] ([place] [facility]) Lymph % 26.7 % 24.0-44.0 [facility] ([place] [facility]) Eos % 2.9 % 0.0-3.0 [facility] ([place] [facility]) Baso % 0.4 % 0.0-1.0 [facility] ([place] [facility]) Neutrophils # 4.5 10 1.5-8.5 [facility] ([facility]) Nucleated Red Blood Cell % 0.0 % 0-0 [facility] ([facility]) Immature Granulocyte % 0.1 % 0-3.0 [facility] ([facility]) Lymph # 1.9 10 1.5-5.0 [facility] ([place] [facility]) [place] # 0.6 10 0.0-0.8 [facility] ([place] [facility]) Eos # 0.2 10 0.0-0.5 [facility] ([place] [facility]) Baso # 0.0 10 0.0-0.2 [facility] ([place] [facility]) ID Date Data Source [id number] 09/30/2019 12:00:00 AM EDT [facility] [place] Patient Name:FABIANO [id number] [facility] Date of : 1955 [address] Date of Exam:09/30/2019ANDREW Malin [id number]#: [phone]: [phone] EXAM: MAMMO UNI DIAGNOSTIC INCLUD CAD AND ULTRASOUND BREAST UNI LIMITEDCLINICAL INFORMATION: Diagnostic left breast.Diagnostic digital magnified spot compression views were obtained leftbreast as part of a diagnostic workup along with ultrasonography due to apotential maury-density in the retroareolar region of the left breast.The diagnostic digital magnified spot compression views show normal breastparenchyma. There is no mass. There are no suspicious calcifications.Diagnostic ultrasonography left breast region of interest shows no cysticor solid masses.IMPRESSION:BI-RADS Category 2 - Benign mammogram. There is no mammographic evidenceor ultrasonographic evidence of malignant alteration of the left breast.Routine bilateral screening mammography recommended at its regularlyscheduled annual interval.NANCY Reynoso/Prem mckeon for referring FABIANO RAMIREZ to our office. Electronically Signed - DORIAN GASCA DO 09/30/19 16:17 Name Value Range Interpretation Code Description Data Melanie rce(s) Supporting Document(s) ID Date Data Source [id number] 09/30/2019 12:00:00 AM EDT [facility] Daisy Cheney, [place] Patient Name:FABIANO [id number] [facility] Date of : 1955 [facility] [id number]#: [phone]: [phone] EXAM: MAMMO UNI DIAGNOSTIC INCLUD CAD AND ULTRASOUND BREAST UNI LIMITEDCLINICAL INFORMATION: Diagnostic left breast.Diagnostic digital magnified spot compression views were obtained leftbreast as part of a diagnostic workup along with ultrasonography due to apotential maury-density in the retroareolar region of the left breast.The diagnostic digital magnified spot compression views show normal breastparenchyma. There is no mass. There are no suspicious calcifications.Diagnostic ultrasonography left breast region of interest shows no cysticor solid masses.IMPRESSION:BI-RADS Category 2 - Benign mammogram. There is no mammographic evidenceor ultrasonographic evidence of malignant alteration of the left breast.Routine bilateral screening mammography recommended at its regularlyscheduled annual interval.NANCY Reynoso/Prem mckeon for referring FABIANO RAMIREZ to our office. Electronically Signed - DORIAN GASCA DO 09/30/19 16:17 Name Value Range Interpretation Code Description Data Melanie rce(s) Supporting Document(s) ID Date Data Source [id number] 09/26/2019 09:36:00 AM EDT [facility] ([facility]) Name Value Range Interpretation Code Description Data Melanie rce(s) Supporting Document(s) Gats Culture (Neg Strep SCR) Laboratory test result [facility] ([facility]) FULL REPORT IN LAB NOTES (eCW and [facility] ). NEGATIVE FOR STREP PYOGENES (GROUP A) ID Date Data Source [id number] 09/26/2019 09:36:00 AM EDT [facility] ([facility]) Name Value Range Interpretation Code Description Data Melanie rce(s) Supporting Document(s) Influenza A Amplification Laboratory test result [facility] ([facility]) Negative results do not preclude influen za or RSV virus infection and should not be used as the sole basis for treatment or other patient management decisions. Influenza B Amplification Laboratory test result [facility] ([facility]) Negative results do not preclude influen za or RSV virus infection and should not be used as the sole basis for treatment or other patient management decisions. ID Date Data Source [id number] 09/10/2019 12:00:00 AM EST [facility] [place] Patient Name:FABIANO [id number] [facility] Date [facility] : 1955[facility] Date of Exam:09/10/2019ANDREW Malin [id number]#: [phone]: [phone] EXAM: MAMMO SCREENING WITH CADCLINICAL INFORMATION: Screening.BILATERAL BREAST SCREENING MAMMOGRAPHY WITH 3D TOMOSYNTHESIS:There are no palpable abnormalities or other breast complaints.The patient states that she has not had a clinical breast examination inover a year.Comparison studies are 08/04/2014 and 06/08/2018.The Volpara volumetric breast density category is B, there are scatteredareas of fibroglandular density.There is a new 5 mm nodule in the subareolar zone of the left breast.There are no other focal suspicious findings.There is a stable benign nodule anteriorly in the right breast containi ngbenign calcifications, not significantly changed from comparison studies.The small 5 mm nodule in the subareolar zone of the left breast isidentified on tomosynthesis, but only on the MLO tomosynthesis images.IMPRESSION:BI-RADS Category 0 - Incomplete: Needs Additional Imaging Evaluation.RECOMMENDATION:The patient should return for spot compression views of the left breast andleft breast ultrasound for further evaluation of this nodule.Our office will attempt to contact the patient for additional imaging.This mammogram was interpreted with the aid of an TLB-csdbudflxetosqbw-hjsrp detection system. A. Negative mammogram reports should not delay biopsy if a dominantor clinically suspicious mass is present. B. Not all breast cancers are identified by mammography ortomosynthesis. C. Adenosis and dense breasts may obscure a lesion.Patient letter M0.Based on the personal and family history information your patient suppliedat the time of imaging, her lifetime risk of breast cancer estimated by theTyrer-Cuzick model is 11.8%. Given that this patient has less than 20% TCrisk score, no further medical management is currently recommended at thistime.Andrei Garsia GUANAKITO/Prem you for referring FABIANO RAMIREZ to our office.Electronically Signed - ANDREI GARSIA MD 09/10/19 15:51 Name Value Range Interpretation Code Description Data Melanie rce(s) Supporting Document(s) ID Date Data Source [id number] 08/05/2019 03:16:00 PM EST [facility] ([facility]) Name Value Range Interpretation Code Description Data Melanie rce(s) Supporting Document(s) Glucose [Mass/volume] in Serum or Plasma 104 mg/dL 74-99 [facility] ([facility]) 100-125 mg/dL PRE-DIABETES/FASTING >126 mg/dL DIABETES/FASTING Creatinine 1.1 mg/dL 0.6-1.3 [facility] ([facility] Urea nitrogen [Mass/volume] in Serum or Plasma 18 mg/dL 7-18 [facility] ([facility]) Sodium [Moles/volume] in Serum or Plasma 144 meq/L 136-145 [facility] ([facility]) Chloride [Moles/volume] in Serum or Plasma 104 meq/L 98-107 [facility] ([facility]) Potassium [Moles/volume] in Serum or Plasma 4.1 meq/L 3.5-5.1 [facility] ([facility]) Calcium [Mass/volume] in Serum or Plasma 9.7 mg/dL 8.5-10.1 [facility] ([facility]) Carbon dioxide, total [Moles/volume] in Serum or Plasma 35 meq/L 21 -32 [facility] ([facility]) Alkaline phosphatase isoenzyme [Units/volume] in Serum or Pl asma 56 mg/dL 46-116 [facility] ([facility]) Alanine aminotransferase [Enzymatic activity/volume] in Seru m or Plasma 22 U/L 12-78 [facility] ([facility]) Total Bilirubin 0.3 mg/dL 0.2-1.0 [facility] ([facility]) Aspartate aminotransferase [Enzymatic activity/volume] in Serum or Plasma 12 U/L 15-37 [facility] ([facility] ) A/G Ratio 0.97 CALC 1.00-1.90 [facility] ([facility]) Proteinase 3 Ab [Units/volume] in Serum 7.3 g/dL 6.4-8.2 [facility] Albumin [Mass/volume] in Serum or Plasma 3.6 g/dL 3.4-5.0 [facility] [facility] Glomerular filtration rate/1.73 sq M pre dicted among blacks [Volume Rate/Area] in Serum or Plasma by Creatinine-based formula (MDRD) >= 60 mL/min [facility] <content>CHRONIC KIDNEY DISEASE STAGING PER NKF</content>
<content></content>
<content>STAGE I & II GFR >= 60 NORMAL TO MILDLY DECREASED</content>
<content>STAGE III GFR 30-59 MODERATELY DECREASED</content>
<content>STAGE IV GFR 15-29 SEVERELY DECREASED</content>
<content>STAGE V GFR <15 VERY LITTLE GFR LEFT</content>
<content>ESRD GFR <15 ON DATA TRANSCRIBER</content>
<content></content> Glomerular filtration rate/1.73 sq M pre dicted among non-blacks [Volume Rate/Area] in Serum or Plasma by Creatinine-based formula (MDRD) 50 mL/min [facility] ID Date Data Source [id number] 08/05/2019 03:16:00 PM EST [facility] ([facility]) Name Value Range Interpretation Code Description Data Melanie rce(s) Supporting Document(s) Hemoglobin [Mass/volume] in Blood 11.7 g/dL 12.0-18.0 [facility] ([facility]) Leukocytes [#/volume] in Blood by Automated count 9.0 x10*3/UL 4.1-10 .9 [facility] ([facility]) Erythrocytes [#/volume] in Blood by Automated count 3.99 x10*6/UL 4.2 0-6.30 [facility] MCV 89.8 fL 80.0-97.0 [facility] ([facility]) Hematocrit [Volume Fraction] of Blood by Automated count 35.9 % 3 7.0-51.0 [facility] ([facility]) MCH 29.2 pg 26.0-32.0 [facility] ([facility]) MCHC 32.5 g/dL 31.0-38.0 [facility] ([facility]) Platelets [#/volume] in Blood by Automated count 208 x10*3/UL 140-440 [facility] Erythrocyte distribution width [Ratio] by Automated count 15.3 % 11.6-13.7 [facility] ([facility] [facility] Lymph % 34.6 % 10.0-58.5 [facility] ([facility]) Mid % 8.0 % 1.7-9.3 [facility] ([facility]) MPV 6.7 FL 7.8-11.0 [facility] ([facility]) Lymph # 3.1 x10*3/UL 0.6-4.1 [facility] ([facility] [facility] Neut % 57.4 % 37.0-92.0 [facility] ([facility]) Neut # 5.2 x10*3/UL 2.0-7.8 [facility] ([facility]) Mid # 0.7 x10*3/UL 0.1-0.6 [facility] ([facility]) ID Date Data Source [id number] 07/23/2019 04:55:00 PM EST [facility] ([facility]) Name Value Range Interpretation Code Description Data Melanie rce(s) Supporting Document(s) Thyrotropin [Units/volume] in Serum or Plasma by Detec tion limit <= 0.05 mIU/L 0.327 uIU/ML 0.358-3.740 [facility] ([facility] [facility] By: Y By: Y ID Date Data Source [id number] 07/23/2019 04:55:00 PM EST [facility] ([facility]) Name Value Range Interpretation Code Description Data Melanie rce(s) Supporting Document(s) Glucose, Fasting 161 mg/dL 70-100 [facility] ([facility]) Creatinine For GFR 1.00 mg/dL 0.55-1.30 [facility] ([facility]) Blood Urea Nitrogen 23 mg/dL 7-18 [facility] ([facility]) Glomerular Filtration Rate 59.6 [facility] ([facility]) <content>Units are mL/min/1.73 m2</content>
<content></content>
<content>Chronic Kidney Disease Staging per NKF:</content>
<content></content>
<content>Stage I & II GFR >=60 Normal to Mildly Decreased</content>
<content>Stage III GFR 30- 59 Moderately Decreased</content>
<content>Stage IV GFR 15-29 Severely Decreased</content>
<content>Stage V GFR <15 Very Little GFR Left</content>
<content>ESRD GFR <15 on DATA TRANSCRIBER</content>
<content></content> Sodium Level 143 meq/L 136-145 [facility] ([facility]) Potassium Serum 3.8 meq/L 3.5-5.1 [facility] ([facility]) Chloride Level 108 meq/L 98-107 [facility] ([facility]) Calcium Level 9.1 mg/dL 8.8-10.2 [facility] ([facility]) Carbon Dioxide Level 27 meq/L 21-32 [facility] ([facility]) Anion Gap 8 meq/L 8-16 [facility] [facility] [facility] Date Data Source [id number] 07/23/2019 04:55:00 PM EST [facility] ([facility]) Name Value Range Interpretation Code Description Data Melanie rce(s) Supporting Document(s) CK-MB Value Mass 1.8 ng/mL [facility] ([facility]) CPK Creatine Phosphokinase 95 U/L 26-192 [facility] ([facility]) Troponin I < 0.02 ng/mL [facility] ([facility]) <content>Troponin I Reference Interval f or Siemens [place] LOCI:</content>
<content></content>
<content>99th Percentile= 0.00-0.045 ng/ml</content>
<content></content>
<content>Risk Stratification:</content>
<content><= 0.10 ng/ml Decreased Risk for Adverse Clinical</content>
<content>Events.</content>
<content>0.10-1.50 ng/ml Increased Risk for Adverse Clinical</content>
<content>Events. Evaluation of additional</content>
<content>criterion and/or repeat testing in 2-6</content>
<content>hours is suggested to rule out myocardial</content>
<content>damage.</content>
<content>>= 1.50 ng/ml Indicative of Myocardial Injury.</content>
<content></content> MB/CK Relative Index 1.89 [facility] ([facility]) <content>DIAGNOSIS CRITERIA</content>
<content>MMB ng/ml Relative Index (RI)</content>
<content>NON-AMI < or = 5 N/A</content>
<content>BARBOZA ZONE > 5 < or = 4</content>
<content>AMI > 5 > 4</content>
<content></content> ID Date Data Source [id number] 07/23/2019 04:55:00 PM EST [facility] ([facility]) Name Value Range Interpretation Code Description Data Melanie rce(s) Supporting Document(s) White Blood Count 5.8 10 4.0-10.0 [facility] ([facility]) Hemoglobin 11.6 g/dL 12.0-15.5 [facility] ([facility]) Red Blood Count 4.00 10 4.00-5.40 [facility] ([facility]) Hematocrit 37.6 % 36.0-47.0 [facility] [facility] Mean Corpuscular Volume 94.0 fl 80.0-96.0 [facility] ([facility]) Mean Corpuscular Hemoglobin 29.0 pg 27.0-33.0 [facility] ([facility]) Mean Corpuscular HGB Conc 30.9 g/dL 32.0-36.5 [facility] NT ([facility]) Platelet Count, Automated 222 10 150-450 [facility] ([facility]) Neutrophils % 73.6 % 36.0-66.0 [facility] ([facility]) Red Cell Distribution Width 16.1 % 11.5-14.5 [facility] ([facility]) Eos % 2.1 % 0.0-3.0 [facility] [facility] [place] % 4.8 % 0.0-5.0 [facility] ([place] [facility]) Lymph % 19.0 % 24.0-44.0 [facility] ([place] [facility]) Immature Granulocyte % 0.2 % 0-3.0 [facility] ([facility]) Nucleated Red Blood Cell % 0.0 % 0-0 [facility] ([facility]) Baso % 0.3 % 0.0-1.0 [facility] ([place] [facility]) [place] # 0.3 10 0.0-0.8 [facility] ([place] [facility]) Lymph # 1.1 10 1.5-5.0 [facility] ([place] [facility]) Neutrophils # 4.3 10 1.5-8.5 [facility] ([facility]) Baso # 0.0 10 0.0-0.2 [facility] [facility] Eos # 0.1 10 0.0-0.5 [facility] ([place] [facility]) Procedure Vital Signs ID Date Data Source UNK Name Value Range Interpretation Code Description Data Source(s) Body mass index (BMI) [Ratio] 31.7 kg/m2 31.7 k g/m2 [facility] ([facility]) Oxygen saturation in Arterial blood by Pulse oximetry 97 % 97 % [facility] ([facility]) Body weight 157.00 [lb_av] 157.00 [lb_av] [facility] T ([facility]) Body height 59 [in_i] 59 [in_i] [facility] ([facility]) 4'11" Heart rate 102 /min 102 /min [facility] ([facility]) Diastolic blood pressure 80 mm[Hg] 80 mm[Hg] [facility] ([facility]) Systolic blood pressure 122 mm[Hg] 122 mm[Hg] [facility] ([facility]) Body mass index (BMI) [Ratio] 31.5 kg/m2 31.5 k g/m2 [facility] Oxygen saturation in Arterial blood by Pulse oximetry 96 % 96 % [facility] ([facility]) Body weight 156.00 [lb_av] 156.00 [lb_av] [facility] T ([facility]) Body height 59 [in_i] 59 [in_i] [facility] " Heart rate 94 /min 94 /min [facility] ([facility]) Body mass index (BMI) [Ratio] 31.3 kg/m2 31.3 k g/m2 [facility] ([facility]) Oxygen saturation in Arterial blood by Pulse oximetry 96 % 96 % [facility] Body weight 155.00 [lb_av] 155.00 [lb_av] [facility] T ([facility]) Body height 59 [in_i] 59 [in_i] [facility] ([facility]) " Heart rate 94 /min 94 /min [facility] ([facility]) Diastolic blood pressure 72 mm[Hg] 72 mm[Hg] [facility] ([facility]) Systolic blood pressure 116 mm[Hg] 116 mm[Hg] [facility] ([facility]) Body mass index (BMI) [Ratio] 32.7 kg/m2 32.7 k g/m2 [facility] Body weight 162.00 [lb_av] 162.00 [lb_av] [facility] T ([facility]) Body height 59 [in_i] 59 [in_i] [facility] ([facility]) " Body temperature 98.0 [degF] 98.0 [degF] [facility] Heart rate 80 /min 80 /min [facility] Diastolic blood pressure 80 mm[Hg] 80 mm[Hg] [facility] ([facility]) RT Arm Systolic blood pressure 136 mm[Hg] 136 mm[Hg] M MAGDI ([facility]) RT Arm Body mass index (BMI) [Ratio] 33.9 kg/m2 33.9 k g/m2 [facility] ([facility]) Body weight 168.00 [lb_av] 168.00 [lb_av] NIXON Daniels ([facility]) Body height 59 [in_i] 59 [in_i] [facility] ([facility]) 4'11" Heart rate 90 /min 90 /min [facility] ([facility]) Diastolic blood pressure 78 mm[Hg] 78 mm[Hg] [facility] ([facility]) Systolic blood pressure 132 mm[Hg] 132 mm[Hg] MAGDI ([facility])
[2020-09-09 02:05] VITALS: BP 122/70
--- NOTE | 2020-09-09 08:45 | REP ---
INDICATION: Abdominal Pain. COMPARISON: 08/12/2020. TECHNIQUE: Single-view chest. Patient declined the abdominal portion of the examination. FINDINGS: PA chest. Of the lung webb are well inflated. Some minor linear scarring in the left CP angle. I see no dense consolidation or pleural effusion. Heart size is borderline but there is left ventricular configuration without left atrial enlargement, vascular redistribution or pulmonary edema. The aorta is mildly tortuous but without gross aneurysm. Airway midline. No widening of the mediastinum. Visualized bones show no acute finding. No free air under the diaphragm. IMPRESSION: Left ventricular configuration of the heart without vascular redistribution, pulmonary edema, pleural effusion or acute infiltrate. Some linear atelectatic change or scarring left CP angle. Lungs otherwise clear. <Electronically signed by Arthur Serra > 09/09/20 [id number]
== END 2020-09-09 02:08 | disposition home or self-care (01) ==
LOC: M ED 23:34
DX: R19.5 Other fecal abnormalities (principal); G43.909 Migraine, unspecified, not intractable, without status migrainosus; K21.9 Gastro-esophageal reflux disease without esophagitis; M54.9 Dorsalgia, unspecified; J45.909 Unspecified asthma, uncomplicated; F31.89 Other bipolar disorder; F41.9 Anxiety disorder, unspecified; Z86.718 Personal history of other venous thrombosis and embolism; N31.9 Neuromuscular dysfunction of bladder, unspecified; Z79.01 Long term (current) use of a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; Z79.899 Other long term (current) drug therapy; Z88.0 Allergy status to penicillin; Z88.8 Allergy status to other drugs, medicaments and biological substances; Z91.040 Latex allergy status

== ENCOUNTER 2020-09-16 03:50 | Emergency (ER) | payer MEDICARE, MEDICAID ==
--- OUTSIDE RECORDS SUMMARY | 2020-09-16 03:55 | CCD | Continuity of Care Document ---
Author Author Sole Rodriguez Organization Unknown Address [address] [facility] [address] [place] [address] Phone [phone] Care Team Providers Care Radial Drill Press Operator Name Role Phone Daisy Rodriguez AUTM [phone] Gurinder Gallagher MD AUTM [phone] Griffin Shepherd JR, MD AUTM [phone] Problems Active Problems Provider Date Retention of [...] SIG Qnty Indications Ordering Provide r Date Colestipol HCL 1gm Tablets Take Three Tablets By Mouth Twice A Day May Increase During Episodes Of Extreme Diarrhea Maximum Daily Dose = 9 Tablets 180tabs Daisy Rodriguez, [facility] 09/05/2020 Olanzapine 5mg Tablets 1 by mouth three times a day 90tabs Daisy Rodriguez, [facility] 07/12/2020 Acetaminophen 325mg Tablets Take One Tablet By Mouth Every 3 Hours as Needed Maximum Daily Dose = Six Tablets 180tabs Daisy Rodriguez, [facility] 06/06/2020 Diphenhydramine HCL 25mg Tablets Take One Tablet By Mouth Every Day (Benadryl) 30tabs Daisy lopez, [facility] 04/04/2020 Azelastine HCL (Nasal) 0.1% Sol[place] on [place] Two Sprays In One Nostril Every Day 30units Johana Camargo, [facility] 01/27/2020 Miralax 17GM/Scoop Powder use 17grams daily as needed for constipation in juice or water. 357gm Johana Camargo, [facility] 01/04/2020 Multi Vitamin Tablets 1 by mouth every day 30tabs Johana Camargo [facility] 01/04/2020 FQ Prevail Protect Underwear Med Change as Needed Up To 8 Ti mes Per Day 234units Daisy Rodriguez, [facility] 05/25/2019 SM Gas Relief 125mg Chewtabs Chew 1 Tablet By Mouth After Each Meal And Before Bed 100units Daisy Rodriguez, [facility] 05/04/2019 Prevail Women Underwear SM-Med Change as Needed Up To 8 Times A Day 240units Johana Camargo, [facility] 12/07/2018 Ondansetron 4mg Tablets Dispers take one tablet by mouth every 6 hours as needed for nausea 45tabs EMRE Madison JR 06/30/2018 Prevail For Women Underwear/Small-Medium Misc Use as Directed. Uses 8 A Day DX:R15.9 240units Daisy Rodriguez, [facility] 06/17/2018 Sudogest 30mg Tablets Take One Tablet By Mouth Twice A Day 60tabs Daisy Rodriguez, [facility] 8 Cyclobenzaprine HCL 10mg Tablets take one tablet by mouth twice a day as needed 60tabs Daisy nunez, [facility] 08/28/2017 FQ Underpads 23X36 Apply To Bed as Needed Up To 10 Times Per Day 30 0units Johana Camargo, [facility] 10/21/2016 Clonazepam 0.5mg Tablets Take One Tablet By Mouth Twice A Day Maximum Daily Dose = Two Tablets 60tabs Daisy Rodriguez, [facility] 10/01/2016 Sea Soft Nasal Mist 0.65% Solution Use Three Times A Day And as Needed as Directed 88units Susan Rodriguez, [facility] 10/01/2016 Diphenoxylate-Atropine 2.5-0.025mg Tablets take one tablet by mouth every day as ne eded for diarrhea maximum daily dose = 1 30tabs Daisy Rodriguez, NONI 2016 Meclizine HCL 25mg Tablets Take One Tablet By Mouth Every 8 Hours as Needed For Dizziness 90tabs A00.0 Daisy Rodriguez, [facility] 06/05/2016 Loperamide HCL 2mg Capsules take 1 capsule by mouth after each loose stool maximum daily dose = 5 capsules 150caps Michael Cuellar M.D. 03/28/2016 Vitamin D (Ergocalciferol) [id number] Capsules take 1 capsule by mouth every week 4caps Daisy Rodriguez, [facility]I 02/11/2016 Baby Wipes Misc for chronic diarrhea dx K58.0 8Boxes Daisy Rodriguez, [facility] 01/02/2016 Underpads 34"X36" Misc apply to bed as needed up to 10 a day dx: 787.61 290units Daisy Rodriguez , [facility] 10/16/2015 Eliquis 5mg Tablets Take One Tablet By Mouth Twice A Day 180tabs Daisy Rodriguez, [facility] 5 Hydrocodone-Acetaminophen 7.5-325mg Tablets Take One Tablet By Mouth Every 6 Hours a s Needed Maximum Daily Dose = Four Tablets 120tabs Daisy Rodriguez, [facility] 11/11/2013 Tums 500mg Chewtabs 2 by mouth three times a day, fruit flavored 180units Daisy Rodriguez, ANP 10/05 Hearing Aid Batteries use as directed size 312 2Packs Daisy Rodriguez, [facility]I 08/10/2012 Aripiprazole 2mg Tablets 1 by mouth every day 90tabs Daisy Rodriguez, ANP Divalproex Sodium 250mg Tablets DR twice a day 180tabs Daisy Rodriguez, [facility] History Medications Olanzapine 5mg Tablets Take 1 tab tid 90tabs Daisy Rodriguez, [facility] 05/01/2020 - 2019 Medications Administered in Office Medication SIG Qnty Indications Ordering Provider Date Administration Of Flu Vaccine Inj [facility] Daisy Rodriguez, [facility] 06/10/2017 Administration Of Flu Vaccine Inj ection Daisy Rodriguez, [facility] 05/16/2016 Administration Of Flu Vaccine Inj ection Daisy Rodriguez, [facility] 05/11/2015 Administration Of Flu Vaccine Inj ection Daisy Rodriguez, [facility] 05/06/2012 Administration Of Flu Vaccine Inj ection Daisy Rodriguez, [facility] 05/15/2011 [facility] 05/02/2010 [facility], [facility] 04/20/2009 Administration Of Flu Vaccine Inj ection Daisy Rodriguez, [facility] 05/12/2008 Administration Of Flu Vaccine Inj ection Daisy Rodriguez, [facility] 05/11/2007 Administration Of Flu Vaccine Inj ection Daisy Rodriguez, [facility] 07/07/2006 Administration Of Flu Vaccine Inj ection Daisy Rodriguez, [facility] 05/06/2005 Administration Of Flu Vaccine Inj ection Daisy Rodriguez, [facility] 05/14/2004 Immunizations CPT Code Status Date Vaccine Lot # [id number] Given 05/01/2020 Influenza Vaccin e Quadrivalent Preser/Antibiotic Free Im Use [id number] U-Flu Given 05/10/2018 Influenza,Unspecified 84153 Given 06/10/2017 Influenza Vaccin e Quadrivalent Preser/Antibiotic Free Im Use [id number] Q2037 Given 05/16/2016 Fluvirin Virus Vaccine 15800 01 Q2037 Given 05/11/2015 Fluvirin Virus Vaccine 02511 01 Q2037 Given 07/04/2014 Fluvirin Virus Vaccine 07378 01 Q2037 Given 05/06/2012 Fluvirin Virus Vaccine Q2037 Given 05/15/2011 Fluvirin Virus Vaccine 45880 Given 07/04/2010 Pneumovax 23 31746 Given 05/02/2010 Influenza Virus Vaccine 80498 Given 04/20/2009 Influenza Virus Vaccine 64926 Given 05/12/2008 Influenza Virus Vaccine 23329 Given 05/11/2007 Influenza Virus Vaccine 33381 Given 07/07/2006 Influenza Virus Vaccine 02025 Given 05/06/2005 Influenza Virus Vaccine 46388 Given 05/14/2004 Influenza Virus Vaccine 71558 Given 05/12/2001 Tetanus Toxoid Vital Signs Date [...] Date Facility Test Result H/L Range Note Istat Chem8+ Panel 09/09/2020 [facility] nter [address] [place], [place] [id number] [phone] iSTAT HCT 39.0 % Normal 38.0-51.0 iSTAT Glucose 85 mg/dL Normal 70-105 iSTAT Sodium 142 mEq/L Normal 136-145 iSTAT Potassium 4.1 mEq/L Normal 3.5-5.1 iSTAT CA++ 5.1 mg/dL Normal 4.5-5.3 iSTAT Chloride 106 mEq/L Normal 98-109 iSTAT Co2 29.0 MM/L High 23.0-27.0 iSTAT BUN 18 mg/dL Normal 8-26 iSTAT Creatinine 0.9 mg/dL Normal 0.6-1.3 CBC With Differential 09/09/2020 [facility] [address], [place] [id number] [phone] White Blood Count 5.2 10 Normal 4.0-10.0 Red Blood Count 4.06 10 Normal 4.00-5.40 Hemoglobin 11.7 g/dL Low 12.0-15.5 Hematocrit 38.6 % Normal 36.0-47.0 Mean Corpuscular Volume 95.1 fl Normal 80.0-96.0 Mean Corpuscular Hemoglobin 28.8 pg Normal 27.0-33.0 Mean Corpuscular HGB Conc 30.3 g/dL Low 32.0-36.5 Red Cell Distribution Width 14.7 % High 11.5-14.5 Platelet Count, Automated 180 10 Normal 150-450 Neutrophils % 50.9 % Normal 36.0-66.0 Lymph % 37.5 % Normal 24.0-44.0 [place] % 7.9 % Normal 2.0-8.0 Eos % 3.3 % High 0.0-3.0 Baso % 0.2 % Normal 0.0-1.0 Immature Granulocyte % 0.2 % Normal 0-3.0 Nucleated Red Blood Cell % 0.0 % Normal 0-0 Neutrophils # 2.6 10 Normal 1.5-8.5 Lymph # 1.9 10 Normal 1.5-5.0 [place] # 0.4 10 Normal 0.0-0.8 Eos # 0.2 10 Normal 0.0-0.5 Baso # 0.0 10 Normal 0.0-0.2 Liver Profile 09/09/2020 [facility] nter [address] [place] [address] [phone] Ast/Sgot 10 U/L Normal 7-37 Alt/SGPT 16 U/L Normal 12-78 Alkaline Phosphatase 60 U/L Normal 45-117 Bilirubin,Total 0.2 mg/dL Normal 0.2-1.0 Bilirubin,Direct < 0.1 mg/dL Normal 0.0-0.2 Total Protein 7.2 GM/DL Normal 6.4-8.2 Albumin 3.2 GM/DL Normal 3.2-5.2 Albumin/Globulin Ratio 0.8 Low 1.2-2.2 Laboratory test finding 09/09/[address] [address] [phone] Lipase 141 U/L Normal 73-393 Ua W/ Reflex To Culture 08/12/[address] [address] [phone] Appearance, Urine RFX CLOUDY High Clear Color, Urine RFX YELLOW Normal Yellow PH,Urine RFX 7.0 units Normal 5.0-9.0 Specific [place] Ur Auto RFX 1.008 Normal 1.002-1.035 Protein, [...] SMALL High Negative Reflex Urine Culture 08/12/2020 [facility] [address] [place] [address] [phone] Reflex Urine Culture FULL REPORT IN L <SEE NOTE> Norm al 1 Gats (Negative Strep Screen) 08/12/2020 [facility] [address] [place], [place] [id number] [phone] Gats Culture (Neg Strep SCR) FULL REPORT IN L <SEE N OTE> Normal 2 Influenza A/B RSV Covid Amp 08/12/[address] [id number] [phone] Influenza A Amplification NEGATIVE Normal Negati ve 3 Influenza B Amplification NEGATIVE Normal Negative 4 RSV Amplification NEGATIVE Normal Negative 5 Sars Covid-19 Amplification NEGATIVE Normal Negative 6 Ua W/ Reflex To Culture 07/22/2020 [facility] [address] [place] [address] [phone] Appearance, Urine RFX HAZY Normal Clear Color, Urine RFX YELLOW Normal Yellow PH,Urine RFX 7.0 units Normal 5.0-9.0 Specific [place] Ur Auto RFX 1.005 Normal 1.002-1.035 Protein, [...] /LPF Normal 0-1 Reflex Urine Culture 07/22/2020 [facility] [address] [place], [place] [address]88[address] [phone] Reflex Urine Culture FULL REPORT IN L <SEE NOTE> Norm al 7 Culture Urine 07/01/2020 [facility] [address] [place], [place] [id number] [phone] Culture Urine (SEE NOTE) 8, 9 Urinalysis 07/01[facility] [address] [place], [place] [id number] [phone] Urinalysis (SEE NOTE) 10 Source R Color yellow Normal: Yellow Clarity clear Normal: Clear Spec [place] 1.010 1.001 - 1.030 pH 7 5 [...] Bacteria 3+ LARGE Abnormal Normal: None Seen Complete Blood Count 06/08/2020 [facility] Machinist 2Nd Shift: Dr Koffi Shea [place], [place] [id number] [phone] WBC 5.4 x10*3/UL 4.1 - 10.9 RBC [...] 2.0 - 7.8 Complete Blood Count 05/04/2020 [facility]y [facility] Machinist 2Nd Shift: [place] [address] [phone] WBC 5.8 x10*3/UL 4.1 - 10.9 RBC [...] 2.0 - 7.8 Comprehensive Chem Profile 05/04/2020 [facility] [employer] 2Nd Shift: [place] [address] [phone] Glucose 86 mg/dL 74 - 99 11 [...] 60 mL/min >60 12 Lipid Profile 05/04/2020 [facility] Machinist 2Nd Shift: [place] [address] [phone] Cholesterol 180 mg/dL 131 - 200 Triglycerides 186 mg/dL High 30 - 150 HDL Cholesterol 55 mg/dL 35 - 60 LDL (Calculated) 88 CALC 50 - 159 Laboratory test finding 04/23/[address] [address] [phone] Lactic Acid Sepsis Protocol 1.3 mmol/L Normal 0.4- 2.0 13 Ua W/ Reflex To Culture 04/01/[address] [address] [phone] Appearance, Urine RFX CLOUDY High Clear Color, Urine RFX YELLOW Normal Yellow PH,Urine RFX 8.0 units Normal 5.0-9.0 Specific [place] Ur Auto RFX 1.006 Normal 1.002-1.035 Protein, [...] RFX LARGE High Negative Sedimentation Rate 03/18/2020 [facility] [address] [place] [address] [phone] Sed Rate 46 mm/hr High 0 - 30 Sed Rate Reenter 46 Laboratory test finding 03/18/2020 [facility] [address] [place], [place] [address]159854 [phone] Uric Acid 6.4 mg/dL 2.5 - 8.5 CRP (High Sensitivity) 6.67 mg/L High 1.00 - 3.00 14 1 FULL REPORT IN LAB NOTES (eC W and Medgeetha). ORGANISM 1: ESCHERICHIA COLI COLONY COUNT >100,000 [...] pathogens. DISCLAIMER: Testing was performed using the [employer] SARS-CoV-2 test. This test was developed and its performance characteristics determined by [employer]. This test has not been FDA cleared [...] 1 S 8 SOURCE: Clean Catch 9 _CULTURE URINE_ ^$[id number] ^^[id number] $$[id number] ^^[id number] $$[id number] $$805335 $$403579 $$848052 $$160734 $$276015 $$317976 $$687726 $$856916 $$005217 $$536111 $$121375 $$278426 $$312902 $$502000 $$996877 $$787001 $$624296 $$612644 $$056332 $$577562 $$824317 $$896070 ^^739287 $$654633 $$829629 $$939739 -- Continued on next page -- Patient: CANDIDO MARIO Order: [id number] Page 2 Culture: CULTURE URINE Status: Final -- Continued on next page -- Patient: CANDIDO MARIO Order: [id number] Page 2 Culture: CULTURE URINE Status: Prelim -- Continued on next page -- Patient: CANDIDO MARIO Order: [id number] Page 2 Culture: CULTURE URINE Status: Prelim $$[id number] $$[id number] REPORTED DATE/TIME: 07/05/2020 11:06 Culture: CULTURE URINE [...] coli Flag: A Patient: CANDIDO MARIO Order: [id number] Page 3 Culture: CULTURE URINE Status: Final [...] S S . . . . . .80108-6 Gentamicin S S . . . . . .267-5 Imipenem S S . . . . . .279-0 Levofloxacin S S . . . . . .43777-7 Meropenem S S . . . . . .6652-2 Nitrofurantoin S S . . . . . .363-2 Piperacillin/Tazobactam S S . . . . . .412-7 Tetracycline S S . . . . . .496-0 Tobramycin S S . . . . . .508-2 Trimethoprim/Sulfa S S . . . . . .516-5 P1 [facility] performed [facility]: [facility] KATY #: [id number] [address] [id number] [facility] [address] Transportation Planning Technician : Ross Jeffers MD NPI #: Machinist 2Nd Shift : 07/03/20.1551.XMT.SENT REF 07/04/20.1209.XMT.SENT REF 07/05/20.1201.XMT.SENT REF 10 URINALYSIS 11 100-125 mg/dL PRE-DIABET ES/FASTING >126 mg/dL DIABETES/FASTING 12 CHRONIC KIDNEY DISEASE STAGI NG PER NKF STAGE I & II GFR >= 60 NORMAL TO MILDLY DECREASED STAGE III GFR 30-59 MODERATELY DECREASED STAGE IV GFR 15-29 SEVERELY DECREASED STAGE V GFR <15 VERY LITTLE GFR LEFT ESRD GFR <15 ON CHILD CARE TEACHER 13 Y/N query for Sepsis Lactate Rule: Y 14 CDC/[facility] HS-CRP CUT-OFF: RELATIVE RISK: <1.0 mg/L Low 1.0 - 3.0 mg/L A verage >3.0 mg/L High Optimally, the average of HS-CRP results repeated two weeks apart should be used for risk assessment. Procedures Date Code Description Status 04/26/2020 04385549 Colonoscopy Completed 09/30/2019 [id number] Mammogram Completed 09/10/2019 [id number] Mammogram Completed 06/08/2018 875994232 Bone Mineral Density Test Comple [facility] 06/08/2018 [id number] Mammogram Completed 02/26/2016 77047023 Colonoscopy Completed 10/02/2015 97558127 Mammogram Completed 08/04/2014 [id number] Mammogram Completed 07/19/2013 [id number] Mammogram Completed 11/10/2012 [id number] Colonoscopy Completed 06/10/2012 063406929 Bone Mineral Density Test Comple [facility] 06/10/2012 78660646 Mammogram Completed 06/06/2011 62355450 Mammogram Completed 05/10/2010 03929066 Mammogram Completed Medical Devices Description No Information Available Encounters Type Date Location Provider Dx Diagnosis Office Visit 08/31/2020 2:40p [facility], NONI Rao F31.9 Bipolar disorder, unspecified 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 M48.061 Spinal stenosis, lumbar billy on without neurogenic eric E55.9 Vitamin D deficiency, unspec ified F41.1 Generalized anxiety disorder K62.5 Hemorrhage of anus and rectu m Office Visit 06/08/2020 2:45p [facility], Vicky Rodriguez, NONI K62.5 Hemorrhage of anus and rectum 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 F31.9 Bipolar disorder, unspecifie d Office Visit 05/04/2020 2:45p [facility], NONI Rao K62.5 Hemorrhage of anus and rectum 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 Z79.01 prison (current) use of a 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 M48.061 Spinal stenosis, lumbar billy on without neurogenic eric E55.9 Vitamin D deficiency, unspec ified F41.1 Generalized anxiety disorder F31.9 Bipolar disorder, unspecifie d E78.00 Pure hypercholesterolemia, u nspecified Assessments Date Code Description Provider 08/31/2020 F31.9 Bipolar disorder, unspecified Na wendy Rodriguez, NONI 08/31/2020 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 of Daisy Rodriguez, NONI 08/31/2020 Z79.01 truck terminal manager (current) use of a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 Daisy Rodriguez, NONI 08/31/2020 M48.061 Spinal stenosis, lumbar region w ithout neurogenic claudicati Daisy Rodriguez, NONI 08/31/2020 E55.9 Vitamin D deficiency, unspecifie d Daisy Rodriguez, NONI 08/31/2020 F41.1 Generalized anxiety disorder Kayla Rodriguez, NONI 08/31/2020 K62.5 Hemorrhage of anus and rectum Na wendy Rodriguez, NONI 06/08/2020 K62.5 Hemorrhage of anus and rectum Na wendy Rodriguez, ANP 06/08/2020 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 of Daisy Rodriguez, NONI 06/08/2020 Z79.01 truck terminal manager (current) use of a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 Daisy Rodriguez, NONI 06/08/2020 F31.9 Bipolar disorder, unspecified Na wendy Rodriguez, ANP 05/04/2020 K62.5 Hemorrhage of anus and rectum Na wendy Rodriguez, ANP 05/04/2020 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 of Daisy Rodriguez, NONI 05/04/2020 Z79.01 truck terminal manager (current) use of a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 Daisy Rodriguez, NONI 05/04/2020 M48.061 Spinal stenosis, lumbar region w ithout neurogenic claudicati NONI Villatoro 05/04/2020 E55.9 Vitamin D deficiency, unspecifie d Daisy Rodriguez, NONI 05/04/2020 F41.1 Generalized anxiety disorder Kayla Rodriguez, NONI 05/04/2020 F31.9 Bipolar disorder, unspecified Na wendy Rodriguez, NONI 05/04/2020 E78.00 Pure hypercholesterolemia, unspe cified NONI Villatoro Plan of Treatment Future Appointment(s):* 11/30/2020 2:40 pm - NONI Villatoro at [facility] 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
--- OUTSIDE RECORDS SUMMARY | 2020-09-16 03:55 | CCD | Continuity of Care Document ---
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 Onse t: 08/09/2014 Ependymoma of spinal [...] Dose = 9 Tablets 180tabs Daisy Rodriguez, [facility] 09/05/2020 Olanzapine 5mg Tablets 1 by mouth three times a day 90tabs Daisy Rodriguez, [facility] 07/12/2020 Acetaminophen 325mg Tablets Take One Tablet By Mouth Every 3 Hours as Needed Maximum Daily Dose = Six Tablets 180tabs Daisy Rodriguez, [facility] 06/06/2020 Diphenhydramine HCL 25mg Tablets Take One Tablet By Mouth Every Day (Benadryl) 30tabs Daisy lopez, [facility] 04/04/2020 Azelastine HCL (Nasal) 0.1% [place] Two Sprays In One Nostril Every Day 30units Johana Camargo, [facility] 01/27/2020 Miralax 17GM/Scoop Powder use 17grams daily as needed for constipation in juice or water. 357gm Johana Camargo, [facility] 01/04/2020 Multi Vitamin Tablets 1 by mouth every day 30tabs Johana Camargo [facility] 01/04/2020 FQ Prevail Protect Underwear Med Change as Needed Up To 8 Ti mes Per Day 234units Daisy Rodriguez, [facility] 05/25/2019 SM Gas Relief 125mg Chewtabs Chew 1 Tablet By Mouth After Each Meal And Before Bed 100units Daisy Rodriguez, [facility] 05/04/2019 Prevail Women Underwear SM-Med Change as Needed Up To 8 Times A Day 240units Johana Camargo, [facility] 12/07/2018 Ondansetron 4mg Tablets Dispers take one tablet by mouth every 6 hours as needed for nausea 45tabs EMRE Madison JR 06/30/2018 Prevail For Women Underwear/Small-Medium Misc Use as Directed. Uses 8 A Day DX:R15.9 240units Daisy Rodriguez, [facility] 06/17/2018 Sudogest 30mg Tablets Take One Tablet By Mouth Twice A Day 60tabs Daisy Rodriguez, [facility] 8 Cyclobenzaprine HCL 10mg Tablets take one tablet by mouth twice a day as needed 60tabs Daisy nunez, [facility] 08/28/2017 FQ Underpads 23X36 Apply To Bed as Needed Up To 10 Times Per Day 30 0units Johana Camargo, [facility] 10/21/2016 Clonazepam 0.5mg Tablets Take One Tablet By Mouth Twice A Day Maximum Daily Dose = Two Tablets 60tabs Daisy Rodriguez, [facility] 10/01/2016 Sea Soft Nasal Mist 0.65% Solution Use Three Times A Day And as Needed as Directed 88units Susan Rodriguez, [facility] 10/01/2016 Diphenoxylate-Atropine 2.5-0.025mg Tablets take one tablet by mouth every day as ne eded for diarrhea maximum daily dose = 1 30tabs Daisy Rodriguez, NONI 2016 Meclizine HCL 25mg Tablets Take One Tablet By Mouth Every 8 Hours as Needed For Dizziness 90tabs A00.0 Daisy Rodriguez, [facility] 06/05/2016 Loperamide HCL 2mg Capsules take 1 capsule by mouth after each loose stool maximum daily dose = 5 capsules 150caps Michael Cuellar M.D. 03/28/2016 Vitamin D (Ergocalciferol) [id number] Capsules take 1 capsule by mouth every week 4caps Daisy Rodriguez, NONI 02/11/2016 Baby Wipes Misc for chronic diarrhea dx K58.0 8Boxes Daisy Rodriguez, [facility] 01/02/2016 Underpads 34"X36" Misc apply to bed as needed up to 10 a day dx: 787.61 290units Daisy Rodriguez , [facility] 10/16/2015 Eliquis 5mg Tablets Take One Tablet By Mouth Twice A Day 180tabs Daisy Rodriguez, [facility] 5 Hydrocodone-Acetaminophen 7.5-325mg Tablets Take One Tablet By Mouth Every 6 Hours a s Needed Maximum Daily Dose = Four Tablets 120tabs Daisy Rodriguez, [facility] 11/11/2013 Tums 500mg Chewtabs 2 by mouth three times a day, fruit flavored 180units Daisy Rodriguez, ANP 10/05 Hearing Aid Batteries use as directed size 312 2Packs Daisy Rodriguez, NONI 08/10/2012 Aripiprazole 2mg Tablets 1 by mouth every day 90tabs Daisy Rodriguez, ANP Divalproex Sodium 250mg Tablets DR twice a day 180tabs Daisy Rodriguez, [facility] History Medications Olanzapine 5mg Tablets Take 1 tab tid 90tabs Daisy Rodriguez, [facility] 05/01/2020 - 2019 Medications Administered in Office Medication SIG Qnty Indications Ordering Provider Date Administration Of Flu Vaccine Inj [facility] Daisy Rodriguez, [facility] 06/10/2017 Administration Of Flu Vaccine Inj ection Daisy Rodriguez, [facility] 05/16/2016 Administration Of Flu Vaccine Inj ection Daisy Rodriguez, [facility] 05/11/2015 Administration Of Flu Vaccine Inj ection Daisy Rodriguez, [facility] 05/06/2012 Administration Of Flu Vaccine Inj ection Daisy Rodriguez, [facility] 05/15/2011 [facility] 05/02/2010 [facility] Daisy Rodriguez, [facility] 04/20/2009 Administration Of Flu Vaccine Inj ection Daisy Rodriguez, [facility] 05/12/2008 Administration Of Flu Vaccine Inj ection Daisy Rodriguez, [facility] 05/11/2007 Administration Of Flu Vaccine Inj ection Daisy Rodriguez, [facility] 07/07/2006 Administration Of Flu Vaccine Inj ection Daisy Rodriguez, [facility] 05/06/2005 Administration Of Flu Vaccine Inj ection Daisy Rodriguez, [facility] 05/14/2004 Immunizations CPT Code Status Date Vaccine Lot # [id number] Given 05/01/2020 Influenza Vaccin e Quadrivalent Preser/Antibiotic Free Im Use [id number] U-Flu Given 05/10/2018 Influenza,Unspecified 52539 Given 06/10/2017 Influenza Vaccin e Quadrivalent Preser/Antibiotic Free Im Use [id number] Q2037 Given 05/16/2016 Fluvirin Virus Vaccine 71992 01 Q2037 Given 05/11/2015 Fluvirin Virus Vaccine 73992 01 Q2037 Given 07/04/2014 Fluvirin Virus Vaccine 80630 01 Q2037 Given 05/06/2012 Fluvirin Virus Vaccine Q2037 Given 05/15/2011 Fluvirin Virus Vaccine 59394 Given 07/04/2010 Pneumovax 23 27629 Given 05/02/2010 Influenza Virus Vaccine 84098 Given 04/20/2009 Influenza Virus Vaccine 99493 Given 05/12/2008 Influenza Virus Vaccine 95980 Given 05/11/2007 Influenza Virus Vaccine 70527 Given 07/07/2006 Influenza Virus Vaccine 36796 Given 05/06/2005 Influenza Virus Vaccine 80460 Given 05/14/2004 Influenza Virus Vaccine 20254 Given 05/12/2001 Tetanus Toxoid Vital Signs Date [...] H/L Range Note Istat Chem8+ Panel 09/09/2020 [facility] nter [address] [place], [place] [address] [phone] iSTAT HCT 39.0 % Normal 38.0-51.0 iSTAT Glucose 85 mg/dL Normal 70-105 iSTAT Sodium 142 mEq/L Normal 136-145 iSTAT Potassium 4.1 mEq/L Normal 3.5-5.1 iSTAT CA++ 5.1 mg/dL Normal 4.5-5.3 iSTAT Chloride 106 mEq/L Normal 98-109 iSTAT Co2 29.0 MM/L High 23.0-27.0 iSTAT BUN 18 mg/dL Normal 8-26 iSTAT Creatinine 0.9 mg/dL Normal 0.6-1.3 CBC With Differential 09/09/2020 [facility] [address] [place], [place] [id number] [phone] White Blood Count 5.2 10 Normal 4.0-10.0 [...] 36.0-66.0 Lymph % 37.5 % Normal 24.0-44.0 [place] % 7.9 % Normal 2.0-8.0 Eos % 3.3 % High 0.0-3.0 Baso % 0.2 % Normal 0.0-1.0 Immature Granulocyte % 0.2 % Normal 0-3.0 Nucleated Red Blood Cell % 0.0 % Normal 0-0 Neutrophils # 2.6 10 Normal 1.5-8.5 Lymph # 1.9 10 Normal 1.5-5.0 [place] # 0.4 10 Normal 0.0-0.8 Eos # 0.2 10 Normal 0.0-0.5 Baso # 0.0 10 Normal 0.0-0.2 Liver Profile 09/09/2020 [facility] nter [address] [place] [phone] [phone] Ast/Sgot 10 U/L Normal 7-37 Alt/SGPT 16 U/L Normal 12-78 Alkaline Phosphatase 60 U/L Normal 45-117 Bilirubin,Total 0.2 mg/dL Normal 0.2-1.0 Bilirubin,Direct < 0.1 mg/dL Normal 0.0-0.2 Total Protein 7.2 GM/DL Normal 6.4-8.2 Albumin 3.2 GM/DL Normal 3.2-5.2 Albumin/Globulin Ratio 0.8 Low 1.2-2.2 Laboratory test finding 09/09/[address] [address] [phone] Lipase 141 U/L Normal 73-393 Ua W/ Reflex To Culture 08/12/[address] [address] [phone] Appearance, Urine RFX CLOUDY High Clear Color, Urine RFX YELLOW Normal Yellow PH,Urine RFX 7.0 units Normal 5.0-9.[address] [place] Ur Auto RFX 1.008 Normal 1.002-1.035 Protein, [...] SMALL High Negative Reflex Urine Culture 08/12/2020 [facility] [address] [place] [phone] Reflex Urine Culture FULL REPORT IN L <SEE NOTE> Norm al 1 Gats (Negative Strep Screen) 08/12/2020 [facility] [address] [place], [place] [address] [phone] Gats Culture (Neg Strep SCR) FULL REPORT IN L <SEE N OTE> Normal 2 Influenza A/B RSV Covid Amp 08/12/[address] [id number] [phone] Influenza A Amplification NEGATIVE Normal Negati ve 3 Influenza B Amplification NEGATIVE Normal Negative 4 RSV Amplification NEGATIVE Normal Negative 5 Sars Covid-19 Amplification NEGATIVE Normal Negative 6 Ua W/ Reflex To Culture 07/22/2020 [facility] [address] [place] [address] [phone] Appearance, Urine RFX HAZY Normal Clear Color, Urine RFX YELLOW Normal Yellow PH,Urine RFX 7.0 units Normal 5.0-9.[address] [place] Ur Auto RFX 1.005 Normal 1.002-1.035 Protein, [...] /LPF Normal 0-1 Reflex Urine Culture 07/22/2020 [facility] [address] [place], [place] [address] [phone] Reflex Urine Culture FULL REPORT IN L <SEE NOTE> Norm al 7 Culture Urine 07/01/2020 [facility] [address] [place], [place] [address] [phone] Culture Urine (SEE NOTE) 8, 9 [facility]inalysis [facility] [address] [place], [place] [address] [phone] Urinalysis (SEE NOTE) 10 Source R Color yellow Normal: Yellow Clarity clear Normal: Clear Spec [place] 1.010 1.001 - 1.030 pH 7 5 [...] Normal: None Seen Complete Blood Count 06/08/2020 [facility] Workers Compensation Attorney: Dr Koffi Shea [place], [place] [id number] [phone] WBC 5.4 x10*3/UL 4.1 - 10.9 RBC [...] 2.0 - 7.8 Complete Blood Count 05/04/2020 [facility] Workers Compensation Attorney: [place] [address] [phone] WBC 5.8 x10*3/UL 4.1 - 10.9 RBC [...] 2.0 - 7.8 Comprehensive Chem Profile 05/04/2020 [facility] Workers Compensation Attorney: [place] [address] [phone] Glucose 86 mg/dL 74 - 99 11 [...] 60 mL/min >60 12 Lipid Profile 05/04/2020 [facility] Workers Compensation Attorney: [place] [address] [phone] Cholesterol 180 mg/dL 131 - 200 Triglycerides 186 mg/dL High 30 - 150 HDL Cholesterol 55 mg/dL 35 - 60 LDL (Calculated) 88 CALC 50 - 159 Laboratory test finding 04/23/[address] [address] [phone] Lactic Acid Sepsis Protocol 1.3 mmol/L Normal 0.4- 2.0 13 Ua W/ Reflex To Culture 04/01/[address] [address] [phone] Appearance, Urine RFX CLOUDY High Clear Color, Urine RFX YELLOW Normal Yellow PH,Urine RFX 8.0 units Normal 5.0-9.[address] [place] Ur Auto RFX 1.006 Normal 1.002-1.035 Protein, [...] RFX LARGE High Negative Sedimentation Rate 03/18/2020 [facility] [address] [place] [address] [phone] Sed Rate 46 mm/hr High 0 - 30 Sed Rate Reenter 46 Laboratory test finding 03/18/2020 [facility] [address] [place], [place] [address] [phone] Uric Acid 6.4 mg/dL 2.5 - 8.5 [...] pathogens. DISCLAIMER: Testing was performed using the [employer] SARS-CoV-2 test. This test was developed and its performance characteristics determined by [employer]. This test has not been FDA cleared [...] 8 SOURCE: Clean Catch 9 _CULTURE URINE_ ^$[id number] ^^[id number] $$[id number] ^^[id number] $$808927 $$385099 $$013838 $$202553 $$480910 $$854379 $$241692 $$613429 $$876277 $$147938 $$511576 $$775797 $$025042 $$333299 $$237206 $$573608 $$662158 $$795585 $$598269 $$372341 $$697890 $$676618 $$769977 ^^854163 $$775472 $$293804 $$859042 -- Continued on next page -- Patient: CANDIDO MARIO Order: [id number] Page 2 Culture: CULTURE URINE Status: Final -- Continued on next page -- Patient: CANDIDO MARIO Order: [id number] Page 2 Culture: CULTURE URINE Status: Prelim -- Continued on next page -- Patient: CANDIDO MARIO Order: [id number] Page 2 Culture: CULTURE URINE Status: Prelim $$[id number] $$[id number] REPORTED DATE/TIME: 07/05/2020 11:06 Culture: CULTURE URINE [...] coli Flag: A Patient: CANDIDO MARIO Order: [id number] Page 3 Culture: CULTURE URINE Status: Final [...] S S . . . . . .69234-9 Gentamicin S S . . . . . .267-5 Imipenem S S . . . . . .279-0 Levofloxacin S S . . . . . .56249-1 Meropenem S S . . . . . .6652-2 Nitrofurantoin S S . . . . . .363-2 Piperacillin/Tazobactam S S . . . . . .412-7 Tetracycline S S . . . . . .496-0 Tobramycin S S . . . . . .508-2 Trimethoprim/Sulfa S S . . . . . .516-5 P1 [facility] KATY #: [id number] [address] [id number] [facility] [address] Costume Draper : Ross Jeffers MD NPI #: Workers Compensation Attorney : 07/03/20.1551.XMT.SENT REF 07/04/20.1209.XMT.SENT REF 07/05/20.1201.XMT.SENT REF 10 URINALYSIS 11 100-125 mg/dL PRE-DIABET ES/FASTING >126 mg/dL DIABETES/FASTING 12 CHRONIC KIDNEY DISEASE STAGI NG PER NKF STAGE I & II GFR >= 60 NORMAL TO MILDLY DECREASED STAGE III GFR 30-59 MODERATELY DECREASED STAGE IV GFR 15-29 SEVERELY DECREASED STAGE V GFR <15 VERY LITTLE GFR LEFT ESRD GFR <15 ON DENTAL PROSTHETIST 13 Y/N query for Sepsis Lactate Rule: Y 14 CDC/[facility] HS-CRP CUT-OFF: RELATIVE RISK: <1.0 mg/L Low 1.0 - 3.0 mg/L A verage >3.0 mg/L High Optimally, the average of HS-CRP results repeated two weeks apart should be used for risk assessment. Procedures Date Code Description Status 04/26/2020 71352001 Colonoscopy Completed 09/30/2019 [id number] Mammogram Completed 09/10/2019 [id number] Mammogram Completed 06/08/2018 [id number] Bone Mineral Density Test Comple [facility] 06/08/2018 [id number] Mammogram Completed 02/26/2016 [id number] Colonoscopy Completed 10/02/2015 [id number] Mammogram Completed 08/04/2014 [id number] Mammogram Completed 07/19/2013 [id number] Mammogram Completed 11/10/2012 [id number] Colonoscopy Completed 06/10/2012 [id number] Bone Mineral Density Test Comple [facility] 06/10/2012 [id number] Mammogram Completed 06/06/2011 [id number] Mammogram Completed 05/10/2010 [id number] Mammogram Completed Medical Devices Description No Information Available Encounters Type Date Location Provider Dx Diagnosis Office Visit 08/31/2020 2:40p [facility], NONI Rao F31.9 Bipolar disorder, unspecified 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 M48.061 Spinal stenosis, lumbar billy on without neurogenic eric E55.9 Vitamin D deficiency, unspec ified F41.1 Generalized anxiety disorder K62.5 Hemorrhage of anus and rectu m Office Visit 06/08/2020 2:45p [facility], Vicky Rodriguez, NONI K62.5 Hemorrhage of anus and rectum 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 F31.9 Bipolar disorder, unspecifie d Office Visit 05/04/2020 2:45p [facility], NONI Rao K62.5 Hemorrhage of anus and rectum 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 Z79.01 assisted (current) use of a 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 M48.061 Spinal [...] veins of Daisy Rodriguez, NONI 08/31/2020 Z79.01 exterminator termite (current) use of a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 Daisy Rodriguez, [...] veins of Daisy Rodriguez, NONI 06/08/2020 Z79.01 exterminator termite (current) use of a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 Daisy Rodriguez, NONI 06/08/2020 F31.9 Bipolar disorder, unspecified Na wendy Rodriguez, ANP 05/04/2020 K62.5 Hemorrhage of anus and rectum Na wendy Rodriguez, ANP 05/04/2020 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
--- OUTSIDE RECORDS SUMMARY | 2020-09-16 03:57 | CCD ---
Author Author [facility] Organization [facility] Address Unknown Phone Unavailable Care Team Providers Care Intervention Analyst Name Role Phone JENNY, J Daisy ANP [...] J Daisy ANP Unavailable Unavailable Lulu, Constance VEGETABLE PACKER Unavailable Unavailable Lulu, Constance VEGETABLE PACKER Unavailable Unavailable Lulu, Constance VEGETABLE PACKER Unavailable Unavailable Lulu, Constance VEGETABLE PACKER Unavailable Unavailable Lulu, Constance VEGETABLE PACKER Unavailable Unavailable Lulu, Constance VEGETABLE PACKER Unavailable Unavailable Lulu, Constance VEGETABLE PACKER Unavailable Unavailable Lulu, Constance VEGETABLE PACKER Unavailable Unavailable Lulu, Constance VEGETABLE PACKER Unavailable Unavailable Lulu, Constance VEGETABLE PACKER Unavailable Unavailable Lulu, Constance VEGETABLE PACKER Unavailable Unavailable Lulu, Constance VEGETABLE PACKER Unavailable Unavailable Lulu, Constance VEGETABLE PACKER Unavailable Unavailable Lulu, Constance VEGETABLE PACKER Unavailable Unavailable Lulu, Constance VEGETABLE PACKER Unavailable Unavailable Lulu, Constance VEGETABLE PACKER Unavailable Unavailable Lulu, Constance VEGETABLE PACKER Unavailable Unavailable Lulu, Constance VEGETABLE PACKER Unavailable Unavailable Lulu, Constance VEGETABLE PACKER Unavailable Unavailable Lulu, Constance VEGETABLE PACKER Unavailable Unavailable Lulu, Constance VEGETABLE PACKER Unavailable Unavailable Lulu, Constance VEGETABLE PACKER Unavailable Unavailable Lulu, Constance VEGETABLE PACKER Unavailable Unavailable Lulu, Constance VEGETABLE PACKER Unavailable Unavailable Lulu, Constance VEGETABLE PACKER Unavailable Unavailable Lulu, Constance VEGETABLE PACKER Unavailable Unavailable Lulu, Constance VEGETABLE PACKER Unavailable Unavailable NON, PHYSICIAN STAFF Unavailable Unavailable [...] Unavailable JENNY, J Daisy ANP Unavailable Unavailable JNENY, J Daisy ANP Unavailable Unavailable JENNY, J [...] is protected by Article 27-F of the [facility] Public Health law. If you continue you may have access to information: Regarding HIV / AIDS; Provided by facilities licensed or operated by the [facility] Office of Mental Health; or Provided by the [facility] Office for People With Developmental Disabilities. If such information is present, then the following [facility] mandated warning applies: This information has been [...] law may result in a fine or fdc sentence or both. A general authorization for the release of medical or other information is NOT sufficient authorization for further disc losure. Family History Family Member Name Family Member Gender Family Member Status Date o f Status Description Data Source(s) Unknown Male Problem [facility] ([facility] () Unknown Female Problem [facility] ([facility]) Unknown Female Problem [facility] ([facility]) Unknown Female Problem [facility] ([facility]) Encounters Encounter Providers Location Date Indications Data Source(s ) Outpatient Attender: Daisy Craig 05/2021 01:40:00 PM EST [facility] ([facility] ) Emergency Attender: HENRI BOYLE MDConsultant: Daisy CHENEY 07/01/2020 06:35:00 AM EST - 07/01/2020 07:46:00 AM EST [facility] Patient discharged. Outpatient Attender: Daisy Craig 01:45:00 PM EST [facility] ([facility] ) Outpatient Attender: Daisy Craig 02:45:00 PM EDT [facility] ([facility] ) Emergency Attender: HENRI BOYLE MDConsultant: Daisy CHENEY 03/18/2020 04:56:00 AM EDT - 03/18/2020 06:29:00 AM EDT [facility] Patient discharged. Emergency Attender: KIARA SHERWOOD MDConsultant: STAFF SHARMAINE 03/02/2020 12:27:00 PM EDT - 03/02/2020 02:30:00 PM EDT [facility] Patient discharged. Outpatient Attender: Constance Craig 02:20:00 PM EDT [facility] ([facility] ) Outpatient Referrer: Daisy CHENEY 10/05/2019 [...] Referrer: Daisy CHENEY 08/11/2019 08:52:00 AM EST [facility] Outpatient Attender: Daisy CHENEY Shabbir Craig 01:30:00 PM EST [facility] ([facility] ) Immunizations Vaccine Date Status Description Data Source(s) Influenza, injectable, MDCK, preservative free, stefania valent 05/01/2020 02:55:00 PM EDT completed [facility]) Medications Medication Brand Name Start Date Product Form Dose Route Admi nistrative Instructions Pharmacy Instructions Status Indications Reaction Description Data Source(s) 2.5-0.025 mg 09/12/2020 12:00:00 AM EST tablet 30 TAKE ONE TABLET BY MOUTH EVERY DAY NEEDED FOR DIARRHEA MAXIMUM DAILY DOSE = ONE TABLET TAKE ONE TABLET BY MOUTH EVERY DAY NEEDED FOR DIARRHEA MAXIMUM DAILY DOSE = ONE TABLET SOLD: 09/12/2020 [facility] 1 gram 09/05/2020 12:00:00 AM EST tablet 180 TAKE THREE TABLETS BY MOUTH TWICE A DAY MAY INCREASE DURING EPISODES OF EXTREME DIARRHEA MAXIMUM DAILY DOSE = 9 TABLETS TAKE THREE TABLETS BY MOUTH TWICE A DAY MAY INCREASE DURING EPISODES OF EXTREME DIARRHEA MAXIMUM DAILY DOSE = 9 TABLETS SOLD: 09/05/2020 [facility] Colestipol Hydrochloride 1000 MG Oral Tablet Colestipol HCL 09/05/2020 12:00:00 AM EST active [facility] ([facility]) 25 mg 09/03/2020 12:00:00 AM EST tablet [...] TIMES A DAY FOR COUGH SOLD: 08/15/2020 [facility] 125 mg 08/12/2020 12:00:00 AM EST [...] FOR UP TO 10 A DAY SOLD: 09/12/2020 [facility] 23 X 36 " 07/19/2020 [...] TWICE A DAY (ZYPREXA) SOLD: 07/18/2020 [facility] 2.5 % 07/15/2020 12:00:00 AM EST ointment 40 APPLY TO AFFECTED AREA(S) ON LEFT ARM TWO TIMES A DAY APPLY TO AFFECTED AREA(S) ON LEFT ARM TWO TIMES A DAY SOLD: 07/18/2020 [facility] olanzapine 5 MG Oral Tablet Olanzapine 07/12/2020 12:00:00 AM EST ORAL active [facility] ([facility]) 0.5 mg 07/12/2020 12:00:00 AM EST tablet 60 TAKE ONE TABLET BY MOUTH TWICE A DAY MAXIMUM DAILY DOSE = TWO TABLETS TAKE ONE TABLET BY MOUTH TWICE A DAY MAXIMUM DAILY DOSE = TWO TABLETS SOLD: 07/18/2020 [facility] Cyclobenzaprine hydrochloride 10 MG Oral Tablet CYCLOBENZAPR INE HCL 07/11/2020 12:00:00 AM EST tablet 60 TAKE ONE TABLET BY MOUTH TWICE A DAY NEEDED TAKE ONE TABLET BY MOUTH TWICE A DAY NEEDED SOLD: 09/12/2020 [facility] Cyclobenzaprine hydrochloride 10 MG Oral Tablet CYCLOBENZAPR INE HCL 07/11/2020 12:00:00 AM EST tablet 60 TAKE ONE TABLET BY MOUTH TWICE A DAY NEEDED TAKE ONE TABLET BY MOUTH TWICE A DAY NEEDED SOLD: 07/18/2020 [facility] Cyclobenzaprine hydrochloride 10 MG Oral [...] MAXIMUM DAILY DOSE = SIX TABLETS SOLD: 09/12/2020 [facility] 325 mg 06/07/2020 12:00:00 AM [...] DOSE = 2 TABLETS SOLD: 05/23/2020 [facility] 200 mg calcium (500 mg) 05/16/2020 [...] Olanzapine 05/01/2020 12:00:00 AM EDT completed [facility] ([facility]) 0.5 mg 05/01/2020 12:00:00 AM EDT [...] MEAL A ND BEFORE BED SOLD: 05/02/2020 [facility] 125 mg 04/14/2020 12:00:00 AM [...] 04/04/2020 12:00:00 AM EDT active M EDENT ([facility]) 25 mg 04/04/2020 12:00:00 AM EDT [...] BY MOUTH TWICE A DAY SOLD: 01/25/2020 [facility] Cyclobenzaprine hydrochloride 10 [...] iralax 01/04/2020 12:00:00 AM EDT active M BRITTANEYENT ([facility]) Multi Vitamin 01/04/2020 12:00:00 AM EDT ORAL acti ve MEDTRES ([facility]) Cephalexin 500 MG Oral Capsule CEPHALEXIN 01/03/2020 12:00:00 AM EDT capsule 14 TAKE ONE CAPSULE BY MOUTH TWICE A DAY FOR 7 DAYS TAKE ONE CAPSULE BY MOUTH TWICE A DAY FOR 7 DAYS SOLD: 01/04/2020 [facility] 2.5-0.025 mg 01/01/2020 12:00:00 AM EDT [...] UP TO 10 TIMES DAILY SOLD: 01/18/2020 [facility] 23 X 36 [...] MOUTH EVERY DAY (BENADRYL) SOLD: [facility] 5 mg 10/12/2019 12:00:00 AM [...] CAPSULE BY MOUTH EVERY DAY (BENADRYL) SOLD: 07/21/2 020 [facility] ELECTROLYTES/DEXTROSE 10/05/2019 12:00:00 AM EDT [...] BY MOUTH EVERY 12 HOURS SOLD: 10/04/2019 [facility] 125 mg 10/04/2019 12:00:00 AM EDT tablet,chewable 100 TAKE 1 TABLET BY MOUTH AFTER EACH MEAL AND BEFORE BED TAKE 1 TABLET BY MOUTH AFTER EACH MEAL A ND BEFORE BED SOLD: 02/29/2020 [facility] 25 mg 09/28/2019 12:00:00 AM EDT tablet 90 TAKE ONE TABLET BY MOUTH EVERY 8 HOURS NEEDED FOR DIZZINESS TAKE ONE TABLET BY MOUTH EVERY 8 HOURS A S NEEDED FOR DIZZINESS SOLD: 02/15/2020 [facility] 25 mg 09/28/2019 12:00:00 AM EDT [...] S NEEDED FOR DIZZINESS SOLD: 10/04/2019 [facility] benzonatate 200 MG Oral Capsule BENZONATATE [...] DAILY DOSE = FOUR TABLETS SOLD: 09/14/2019 [facility] Guaifenesin 20 MG/ML Oral Solution Guaifenesin 08/31/2019 12:00:00 AM EST ORAL active [facility] 4 mg 08/31/2019 12:00:00 AM EST tablet,disintegrating 4 5 TAKE ONE TABLET BY MOUTH EVERY 6 HOURS NEEDED FOR NAUSEA TAKE ONE TABLET BY MOUTH EVERY 6 HOURS NEEDED FOR NAUSEA SOLD: 10/19/2019 [facility] 100 mg/5 mL 08/31/2019 12:00:00 AM EST liquid 240 TAKE 10ML BY MOUTH TWO TIMES A DAY TAKE 10ML BY MOUTH TWO TIMES A DAY SOLD: 08/31/2019 [facility] 4 mg 08/31/2019 12:00:00 AM EST [...] DAY WITH FOOD SOLD: 2019 [facility] 23 X 36 " 07/07/2019 [...] BY MOUTH TWICE A DAY SOLD: 10/26/2019 [facility] 0.2 % 06/04/2019 12:00:00 AM EST [...] TIMES PER DAY SOLD: 09/21/2019 [facility] 200 mg calcium (500 mg) [...] A DAY NEEDED SOLD: 10/04/2019 [facility] Cyclobenzaprine hydrochloride 10 MG Oral [...] TIMES A DAY SOLD: 08/31/2019 [facility] 200 mg calcium (500 mg) [...] (BENADRYL) SOLD: 020 [facility] 25 mg 03/30/2019 12:00:00 AM EDT capsule 30 TAKE ONE CAPSULE BY MOUTH EVERY DAY (BENADRYL) TAKE ONE CAPSULE BY MOUTH EVERY DAY (BENADRYL) SOLD: [facility] 137 mcg (0.1 %) 03/18/2019 12:00:00 AM EDT aerosol,spray 30 SPRAY TWO SPRAYS IN ONE NOSTRIL EVERY DAY SPRAY TWO SPRAYS IN ONE NOSTRIL EVERY DAY SOLD: 08/17/2019 [facility] ELECTROLYTES/DEXTROSE 03/18/2019 12:00:00 AM EDT solution 3 000 TAKE NEEDED TAKE NEEDED SOLD: 08/31/2019 [facility] 137 mcg (0.1 %) 03/18/2019 12:00:00 AM EDT aerosol,spray 30 SPRAY TWO SPRAYS IN ONE NOSTRIL EVERY DAY SPRAY TWO SPRAYS IN ONE NOSTRIL EVERY DAY SOLD: 11/23/2019 [facility] 137 mcg (0.1 %) 03/18/2019 12:00:00 AM EDT aerosol,spray 30 SPRAY TWO SPRAYS IN ONE NOSTRIL EVERY DAY SPRAY TWO SPRAYS IN ONE NOSTRIL EVERY DAY SOLD: 10/04/2019 [facility] 137 mcg (0.1 %) 03/18/2019 [...] FOR DIZZINESS SOLD: 08/17/2019 [facility] 50 mcg/actuation 12/01/2018 12:00:00 AM EDT spray,suspension [...] to laura Policy Laura Plan Information EMEDNY [id number] SP [id number] MEDICARE [id number] SP [id number] MEDICARE PART A -O/P [id number] 18 [id number] MEDICAID -O/P EMERGENCY ROOM [id number] MEDICARE C [id number] S [id number] MEDICAID M [id number] S [id number] MEDICARE PART A -O/P [id number] 18 [id number] MEDICARE PART A -O/P [id number] MEDICAID [id number] SP [id number] MEDICAID [id number] SP [id number] Medicaid Medigap Part B [id number] Self [id number] Medicare [place] Govt Servic Medicare Primary [id number] Self [id number] [place] Medigap Part B [id number] Self [id number] BS [place] Medigap Part B [id number] Self [id number] Medicaid Medigap Part B [id number] Self [id number] Medicare [place] Medicare Primary [id number] Self [id number] [place] Medig[place] Part B [id number] Self [id number] Medicare - [place] Medicare Primary [id number] Self [id number] [place] Medigap Part B [id number] Self [id number] MEDICARE [id number] SP [id number] Medicaid Medigap Part B [id number] Self [id number] Medicare [place] Medicare Primary [id number] Self [id number] ANSI-Medicare Part B [id number] ANSI-Medicaid [id number] ANSI-Medicaid [id number] ANSI-Medicare Part B [id number] ANSI-Medicaid [id number] ANSI-Medicare Part B [id number] Medicaid Medigap Part B [id number] Self [id number] Medicare [facility] Govt Servic Medicare Primary [id number] Self [id number] ANSI-Medicare Part B [id number] ANSI-Medicaid [id number] ANSI-Medicare Part B [id number] ANSI-Medicaid [id number] ANSI-Medicare Part B [id number] ANSI-Medicaid [id number] ANSI-Medicare Part B [id number] ANSI-Medicaid [id number] ANSI-Medicaid [id number] ANSI-Medicare Part B [id number] MEDICARE [id number] SP [id number] ANSI-Medicare Part B [id number] ANSI-Medicaid [id number] Medicaid Medigap Part B [id number] Self [id number] Medicare [place] Govt [place] Medicare Primary [id number] Self [id number] Medicaid [place] Medigap Part B [id number] Self [id number] Medicare - [facility] Medicare Primary [id number] Self [id number] ANSI-Medicaid [id number] ANSI-Medicare Part B [id number] ANSI-Medicare Part B [id number] [facility]-Medicaid [id number] MEDICARE C [id number] S [id number] Medicaid Medigap Part B [id number] Self [id number] Medicare [place] Medicare Primary [id number] Self [id number] Medicaid Medigap Part B [id number] Self [id number] Medicare [place] Medicare Primary [id number] Self [id number] Medicaid Medigap Part B [id number] Self [id number] Medicare [place] Medicare Primary [id number] Self [id number] Medicaid Medigap Part B [id number] Self [id number] Medicare [place] Medicare Primary [id number] Self [id number] [facility] C [id number] S [id number] MEDICARE [id number] SP [id number] BS [place] Medigap Part B Self BS [place] Trad/[place] Commercial 302/802 Self [id number] Medicaid Medigap Part B 1 1 Self 1 1 Medicare Nat[place] Govt [facility] Medicare Primary Self BS [place] Medigap Part B Self BS [place] Medigap Part B [id number] Self [id number] Medicaid [place] Medigap Part B Self [place] Primary Self BS [place] Medigap Part B Self [place] 306/806 NOT ACTIVE SP NOT ACTIVE MEDICARE [id number] SP [id number] SELF PAY UNAVAILABLE SP UNAVAILA BLE [place] 306/806 [id number] SP [id number] [place] BCBS S [id number] S [id number] [place]BS [place] PPO 302/307 [id number] SP [id number] Problems, Conditions, and Diagnoses Code Display Name Description Problem Type Effective Dates Data Source(s) Z90053 Personal history of urinary (tract) infe ctions Personal history of urinary (tract) infections Diagnosis 07/01/2020 06:35:00 AM [facility] Z7902 FDC (current) use of antithromboti cs/antiplatelets FDC (current) use of antithrombotics/antiplatelets Diagnosis 020 06:35:00 AM [facility] G8929 Other chronic pain Other chronic pain Diagnosis 06/2020 06:35:00 AM [facility] E119 Type 2 diabetes mellitus without complic ations Type 2 diabetes mellitus without complications Diagnosis 07/01/2020 06:35:00 AM [facility] K62608 Pain in right ankle and joints of right foot Pain in right ankle and joints of right foot Diagnosis 07/01/2020 06:35:00 AM [facility] N3000 Acute cystitis without hematuria Acute cystitis without hematuria Diagnosis 07/01/2020 06:35:00 AM [facility] R300 Dysuria Dysuria Diagnosis 07/01/2020 06:35:00 AM [facility] L05991 Unspecified place in unspeci fied non-institutional (private) residence as the place of occurrence of the external cause Unspecified place in unspecified non-institutional (private) residence as the place of occurrence of the external cause Diagnosis 03/18/2020 04:56:00 AM [facility] [id number] Fall (on) (from) other stairs and steps, initial encounter Fall (on) (from) other stairs and steps, initial encounter Diagnosis 03/18 04:56:00 AM [facility] Z02456 Type 2 diabetes mellitus with hypoglycem ia without coma Type 2 diabetes mellitus with hypoglycemia without coma Diagnosis 03/18/2020 04:56:00 AM [facility] F70245 Primary osteoarthritis, right ankle and foot Primary osteoarthritis, right ankle and foot Diagnosis 03/18/2020 04:56:00 AM [facility] [id number] Unspecified injury of right ankle, initi al encounter Unspecified injury of right ankle, initial encounter Diagnosis 03/18/2020 04:56:00 AM [facility] [id number] Overexertion from prolonged static or awkward postures, initial encounter Overexertion from prolonged static or aw kward postures, initial encounter Diagnosis 03/02/2020 12:27:00 PM [facility] [id number] Sprain of unspecified ligament of right ankle, initial encounter Sprain of unspecified ligament of right ankle, initial encounter Diagnosis 03/02/2020 12:27:00 PM [facility] Surgeries/Procedures Procedure Description Date Indications Data Source(s) Colonoscopy 04/26/2020 12:00:00 AM EDT M EDENT ([facility]) Mammogram 09/30/2019 12:00:00 AM EDT EDENT ([facility]) Mammogram 09/10/2019 12:00:00 AM EST EDENT ([facility]) Results ID Date Data Source [id number] 09/09/2020 12:43:00 AM EST MEDENT ([facility]) Name Value Range Interpretation Code Description Data Melanie rce(s) Supporting Document(s) Laboratory test finding (navigational concept) 39.0 % 38.0-51.0 [facility] ([facility]) Laboratory test finding (navigational concept) 142 meq/L 136-145 [facility] ([facility]) Laboratory test finding (navigational concept) 85 mg/dL 70-105 [facility] ([facility]) Laboratory test finding (navigational concept) 4.1 meq/L 3.5-5.1 [facility] ([facility]) Laboratory test finding (navigational concept) 5.1 mg/dL 4.5-5.3 [facility] ([facility]) Laboratory test finding (navigational concept) 106 meq/L 98-109 [facility] ([facility]) Laboratory test finding (navigational concept) 18 mg/dL 8-26 [facility] ([facility]) Laboratory test finding (navigational concept) 29.0 MM/L 23.0-27.0 [facility] ([facility]) Laboratory test finding (navigational concept) 0.9 mg/dL 0.6-1.3 [facility] ([facility]) ID Date Data Source [id number] 09/09/2020 12:37:00 AM EST [facility] ([facility]) Name Value Range Interpretation Code Description Data Melanie rce(s) Supporting Document(s) Lipoprotein lipase [Enzymatic activity/volume] in Serum or P lasma 141 U/L 73-393 [facility] ([facility]) ID Date Data Source [id number] 09/09/2020 12:37:00 AM EST [facility] ([facility]) Name Value Range Interpretation Code Description Data Melanie rce(s) Supporting Document(s) Ast/Sgot 10 U/L 7-37 [facility] Alt/SGPT 16 U/L 12-78 [facility] Alkaline Phosphatase 60 U/L 45-117 [facility] Bilirubin,Total 0.2 mg/dL 0.2-1.0 [facility] ([facility]) Bilirubin,Direct Laboratory test result 0.0-0.2 [facility] ([facility]) Total Protein 7.2 GM/DL 6.4-8.2 [facility] ([facility]) Albumin/Globulin Ratio 0.8 1.2-2.2 [facility] ([facility]) Albumin 3.2 GM/DL 3.2-5.2 [facility] ([place] [facility]) ID Date Data Source [id number] 09/09/2020 12:37:00 AM EST [facility] ([facility]) Name Value Range Interpretation Code Description Data Melanie rce(s) Supporting Document(s) Red Blood Count 4.06 10 4.00-5.40 [facility] White Blood Count 5.2 10 4.0-10.0 [facility] Hemoglobin 11.7 g/dL 12.0-15.5 [facility] Hematocrit 38.6 % 36.0-47.0 [facility] Mean Corpuscular Volume 95.1 fl 80.0-96.0 [facility] ([facility]) Mean Corpuscular Hemoglobin 28.8 pg 27.0-33.0 ME DENT ([facility]) Mean Corpuscular HGB Conc 30.3 g/dL 32.0-36.5 MEDE NT ([facility]) Red Cell Distribution Width 14.7 % 11.5-14.5 ME DENT ([facility]) Platelet Count, Automated 180 10 150-450 MEDE NT ([facility]) Neutrophils % 50.9 % 36.0-66.0 [facility] ([facility]) Lymph % 37.5 % 24.0-44.0 [facility] [facility] Eos % 3.3 % 0.0-3.0 [facility] ([place] [facility] [place] % 7.9 % 2.0-8.0 [facility] [facility] Baso % 0.2 % 0.0-1.0 [facility] ([place] [facility]) Immature Granulocyte % 0.2 % 0-3.0 [facility] ([facility]) Neutrophils # 2.6 10 1.5-8.5 [facility] ([facility]) Nucleated Red Blood Cell % 0.0 % 0-0 MED ENT ([facility]) Lymph # 1.9 10 1.5-5.0 [facility] [facility] Gu[place]upe # 0.4 10 0.0-0.8 [facility] [facility] Eos # 0.2 10 0.0-0.5 [facility] [facility] Baso # 0.0 10 0.0-0.2 [facility] [facility] ID Date Data Source [id number] 08/12/2020 08:01:00 AM EST MED[facility] ([facility]) Name Value Range Interpretation Code Description Data Melanie rce(s) Supporting Document(s) Reflex Urine Culture Laboratory test result [facility] ([facility]) <content>FULL REPORT IN LAB NOTES (eCW [...] R</content>
<content>TOBRAMYCIN IV 80mg q8h <=1 S</content>
<content>CEFTRIAXONE IV 1gm q24h <=1 S</content>
<content>CEFTAZIDIME IV [...] FOR ESBL</content>
<content></content> ID Date Data Source [id number] 08/12/2020 08:01:00 AM EST [facility] Name Value Range Interpretation Code Description Data Melanie rce(s) Supporting Document(s) Appearance, Urine RFX Laboratory test result [facility] Color, Urine RFX Laboratory test result [facility] PH,Urine RFX 7.0 units 5.0-9.0 [facility] Protein, Urine Auto RFX Laboratory test result [facility] Specific [place] Ur Auto RFX 1.008 1.002-1.035 [facility] Ketone, Urine Auto RFX Laboratory test result MED[facility] ([facility]) Glucose, Urine (Ua) Auto RFX Laboratory test result [facility] Nitrite, Urine Auto RFX Laboratory test result [facility] Bilirubin, Urine Auto RFX Laboratory test result [facility] ([facility]) Urobilinogen, Urine Auto RFX 0.2 mg/dL 0.0-2.0 [facility] Blood, Urine Blood RFX Laboratory test result [facility] ([facility]) Leukocyte Esterase Ur Auto RFX Laboratory test result [facility] [facility]) WBC, Urine Auto RFX 9 /HPF 0-3 [facility] ([facility] RBC, Urine Auto RFX 9 /HPF 0-3 [facility] ([facility]) Squam Epithelial Cell Ur Aurfx 5 /HPF 0-6 [facility] ([facility]) Mucus, Urine RFX Laboratory test result [facility] ([facility]) Bacteria, Urine Auto RFX Laboratory test result [facility] ([facility] Hyaline Cast, Urine Auto RFX 0 /LPF 0-1 M [facility] ([facility]) Amorphous Sediment RFX Laboratory test result [facility] ([facility]) ID Date Data Source [id number] 08/12/2020 07:52:00 AM EST [facility] ([facility] Name Value Range Interpretation Code Description Data Melanie rce(s) Supporting Document(s) Gats Culture (Neg Strep SCR) Laboratory test result [facility] ([facility]) FULL REPORT IN LAB NOTES (eCW and [facility] ). NEGATIVE FOR STREP PYOGENES (GROUP A) ID Date Data Source [id number] 08/12/2020 06:51:00 AM EST [facility] ([facility] Name Value Range Interpretation Code Description Data Melanie rce(s) Supporting Document(s) Influenza A Amplification Laboratory test result [facility] ([facility]) Negative results do not preclude influen za or RSV virus infection and should not be used as the sole basis for treatment or other patient management decisions. RSV Amplification Laboratory test result [facility] ([facility]) Negative results do not preclude influen za or RSV virus infection and should not be used as the sole basis for treatment or other patient management decisions. Influenza B Amplification Laboratory test result [facility] ([facility]) Negative results do not preclude influen za or RSV virus infection and should not be used as the sole basis for treatment or other patient management decisions. Laboratory test finding (navigational concept) Laboratory test result [facility] ([facility]) A false negative result may occur [...] pathogens. DISCLAIMER: Testing was performed using the [employer] SARS-CoV-2 test. This test was developed and its performance characteristics determined by [employer]. This test has not been FDA cleared [...] or revoked sooner. ID Date Data Source [id number] 08/12/2020 06:51:00 AM EST [facility] Name Value Range Interpretation Code Description Data Melanie rce(s) Supporting Document(s) SARS coronavirus 2 RNA [Presence] in Res piratory specimen by MILAGROS with probe detection NEGATIVE [facility] This lab was ordered by [facility] a nd reported by [facility]. ID Date Data Source [id number] 07/22/2020 04:54:00 AM EST [facility] ([facility]) Name Value Range Interpretation Code Description Data Melanie rce(s) Supporting Document(s) Reflex Urine Culture Laboratory test result [facility] ([facility]) <content>FULL REPORT IN LAB NOTES (eCW [...] 1 S</content>
<content></content> ID Date Data Source [id number] 07/22/2020 04:54:00 AM EST [facility] ([facility]) Name Value Range Interpretation Code Description Data Melanie rce(s) Supporting Document(s) Appearance, Urine RFX Laboratory test result [facility] ([facility] PH,Urine RFX 7.0 units 5.0-9.0 [facility] ([facility]) Color, Urine RFX Laboratory test result [facility] ([facility] Specific [place] Ur Auto RFX 1.005 1.002-1.035 [facility] ([facility]) Protein, Urine Auto RFX Laboratory test result [facility] ([facility]) Glucose, Urine (Ua) Auto RFX Laboratory test result [facility] ([facility]) Ketone, Urine Auto RFX Laboratory test result [facility] ([facility] Urobilinogen, Urine Auto RFX 0.2 mg/dL 0.0-2.0 [facility] ([facility]) Bilirubin, Urine Auto RFX Laboratory test result [facility] ([facility]) Nitrite, Urine Auto RFX Laboratory test result [facility] ([facility]) Leukocyte Esterase Ur Auto RFX Laboratory test result [facility] ([facility]) Blood, Urine Blood RFX Laboratory test result [facility] ([facility]) WBC, Urine Auto RFX 11 /HPF 0-3 [facility] ([facility]) Bacteria, Urine Auto RFX Laboratory test result [facility] ([facility]) RBC, Urine Auto RFX 1 /HPF 0-3 [facility] ([facility]) Squam Epithelial Cell Ur Aurfx 0 /HPF 0-6 [facility] ([facility]) Mucus, Urine RFX Laboratory test result [facility] ([facility]) Hyaline Cast, Urine Auto RFX 0 /LPF 0-1 M [facility] ([facility]) ID Date Data Source [id number] 07/01/2020 06:35:00 AM [facility] 1 OrderSheet [facility] Emergency Department [address] [place] [address] Phone #: ext- [phone] 07/01/2020 06:35 Patient: FABIANO RAMIREZ Sex: F : 1955 Age: 64yWEIGHT:76.2 kg (M)ALLERGIES: Darvacet, Demerol, MicrodentinCHIEF COMPLAINT: dysuriaDIAGNOSIS: Urinary tract infectious diseaseLAB ORDERSOrder Description Priority Entered Acknowledged InitialedUrinalysis (Clean STAT 06:47 07/01/2020 06:54 Tamia Hemphill) Tamia Clements RFreyaN. R.N.; Per protocol; Henri Boyle PhysicianCulture, Urine STAT 07:31 07/01/2020 07:35 Antionette,(Urine, Clean Xavier Keenan) Physician;DIAGNOSTIC STUDY ORDERSOrder Description [...] rce(s) Supporting Document(s) ID Date Data Source [id number] 07/01/2020 06:35:00 AM EST [facility] 1 Medication Reconciliation Report [facility] Emergency Department [address] [place] [address] Phone #: ext- [phone] 07/01/2020 06:35 Patient: [...] the Emergency Department: 2 Medication Reconciliation Report [facility] Emergency Department [address] [place] [address] Phone #: ext- [phone] 07/01/2020 06:35 Patient: FABIANO RAMIREZ Sex: F : 1955 Age: 64yNone.The following Medications were prescribed to the patient:ciprofloxacin 250 mg tablet Take 1 tablet twice a day for 7 days -- Dispense 14 tablet. Refills: 0.Substitution permitted.Pharmacy - [facility] - [address] [facility] ; [place] [address]. . -- Xavier Robertson, Physician Name Value Range Interpretation Code Description Data Melanie rce(s) Supporting Document(s) ID Date Data Source [id number] 07/01/2020 06:35:00 AM [facility] 1 Medication Administration Record [facility] Emergency Department [address] [place] [address] Phone #: ext- [phone] 07/01/2020 06:35 Patient: FABIANO RAMIREZ Sex: F : 1955 Age: 64yWeight: 76.2 kgHeight/Length: 59 inBMI: 34ALLERGIES: Darvacet, Demerol, MicrodentinDate/Time Medication Administered Medication Ordered Name Value Range Interpretation Code Description Data Melanei rce(s) Supporting Document(s) ID Date Data Source [id number] 07/01/2020 06:35:00 AM [facility] 1 General Instructions [facility] Emergency Department [address] [place] [address] Phone #: ext- [phone] 07/01/2020 06:35 Patient: [...] Dispense 14 tablet. Refills: 0.Substitution permitted.Pharmacy - [facility] - [address] [facility] ; [place] [address]. .Follow-up:Follow up with your healthcare provider in four days. Call for an appointment.Understanding of the discharge instructions v erbalized by patient. ADDITIONAL INFORMATION 2 General Instructions [facility] Emergency Department [address] [place] [address] Phone #: ext- [phone] 07/01/2020 06:35 Patient: [...] or burning when urinating 3 General Instructions [facility] Emergency Department [address] [place] [address] Phone #: ext- [phone] 07/01/2020 06:35 Patient: [...] Constipation Having sex 4 General In structions [facility] Emergency Department [address] [place] [address] Phone #: ext- [phone] 07/01/2020 06:35 Patient: [...] flush out your bladder. 5 General Instructions [facility] Emergency Department [address] [place] [address] Phone #: [phone]- [phone] 07/01/2020 06:35 Patient: FABIANO RAMIREZ Sex: F [...] if the results will affect your treatment.Call [phone] if any of the following occur: [...] swelling in the outer vaginal area (labia) [employer]. [address] [place] [address]. All rights reserved. This information is not intended as asubstitute for professional medical care. Always follow your healthcare professional's instructions. You have been given the following additional information: Bladder Infection, Female (Adult) 6 General Instructions [facility] Emergency Department [address] [place] [address] Phone #: ext- [phone] 07/01/2020 06:35 Patient: FABIANO RAMIREZ Sex: F : 1955 Age: 64y(Electronically signed by Xavier Robertson, Physician 07/01/2020 08:41) Name Value Range Interpretation Code Description Data Melanie rce(s) Supporting Document(s) ID Date Data Source [id number] 07/01/2020 06:35:00 AM EST [facility] 1 Clinical Report - Nurses [facility] Emergency Department [address] [place] [address] Phone #: ext- [phone] 07/01/2020 06:35 Patient: FABIANO RAMIREZ Sex: F : 1955 Age: 64yTRIAGEArrived by EMS. Historian: patient.Triage time: 06:35 07/01/2020. Acuity: LEVEL 4.Chief Complaint: PAINFUL URINATION.Onset. (2 days). 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 No suspected or confirmed signs of infection present.--06:47 07/01/20 Tamia Clements R.N.06:43 07/01/20. BP: 133/83. MAP: 99. HR: 83. RR: 16. O2 saturation: 98%. Temp: 97.4 F. Pain level now:8/10. --06:47 07/01/20 Tamia Clements R.N.Weight: 76.2 kg [...] Clements R.N.PROBLEMS: 2 Clinical Report - Nurses [facility] Emergency Department [address] [place] [address] Phone #: ext- [phone] 07/01/2020 06:35 Patient: [...] 07/01/20 Xavier Robertson, Physician.PHYSICAL ASSESSMENTTo room via stretche r.GENERAL / NEURO / PSYCH: Alert. Oriented X 4. Appears anxious.HEENT: Mucous membranes are pink.RESPIRATORY: Respirations not labored.CVS: Capillary refill less than 2 seconds.GI / : No emesis noted. Pain with urination. She has had frequency of urination. Urgency ofurination. Patient is incontinent of urine. 3 Clinical Report - Nurses [facility] Emergency Department [address] [place] [address] Phone #: ext- [phone] 07/01/2020 06:35 Patient: FABIANO RAMIREZ Sex: F : 1955 Age: 64y SKIN: Skin is warm and dry. --06:50 07/01/20 Tamia Clements R.N.NURSING PROGRESS NOTESReassurance given. Call light placed in reach. Bed placed in lowest position. Brakes of bed on.--06:48 07/01/20 Taima Clements R.N. Urine collected. --06:49 07/01/20 Tamia [...] rce(s) Supporting Document(s) ID Date Data Source [id number] 07/01/2020 06:35:00 AM EST [facility] 1 Clinical Report - Physicians/Mid Levels [facility] Emergency Department [address] [place] [address] Phone #: ext- [phone] 07/01/2020 06:35 [id number] Sex: F : 1955 Age: 64y Time [...] Appendectomy. 2 Clinical Report - Physicians/Mid Levels [facility] Emergency Department [address] [place] [address] Phone #: ext- [phone] 07/01/2020 06:35 [facility]: [id number] Sex: F : 1955 Age: 64y Hernia [...] turgor. 3 Clinical Report - Physicians/Mid Levels [facility] Emergency Department [address] [place] [address] Phone #: ext- [phone] 07/01/2020 06:35 Patient: [...] right ankle pain.INSTRUCTIONS 4 Clinical Report - Physicians/Mid Levels [facility] Emergency Department [address] [place] [address] Phone #: ext- [phone] 07/01/2020 06:35 Patient: [...] tablet. Refills: 0. Substitution permitted. Pharmacy - [facility] - [address] [facility] ; [place] [address]. . Follow-up: Follow up with your healthcare provider in four days. Call for an appointment. Understanding of the discharge instructions verbalized by patient.(Electronically signed by Xavier Robertson, Physician 07/01/2020 08:41) Name Value Range Interpretation Code Description Data Melanie rce(s) Supporting Document(s) ID Date Data Source [id number] 07/01/2020 06:50:00 AM EST [facility] ([facility] Name Value Range Interpretation Code Description Data [facility] rce(s) Supporting Document(s) Source Laboratory test result [facility] ([facility]) SOURCE: Clean Catch Urinalysis Laboratory test result [facility] ([facility]) SOURCE: Clean Catch Color Laboratory test result [facility] ([facility]) SOURCE: Clean Catch Clarity Laboratory test result [facility] ([facility]) SOURCE: Clean Catch Glucose Laboratory test result [facility] ([facility]) SOURCE: Clean Catch pH 7 5-9 [facility] SOURCE: Clean Catch Spec [place] 1.010 1.001-1.030 [facility] ([facility]) SOURCE: Clean Catch Ketone Laboratory test result [facility] ([facility]) SOURCE: Clean Catch Bilirubin Laboratory test result [facility] ([facility]) SOURCE: Clean Catch Protein Laboratory test result [facility] ([facility]) SOURCE: Clean Catch Nitrite Laboratory test result [facility] ([facility]) SOURCE: Clean Catch Leuk Est 500 Abnormal (applies to non-numeric res ults) [facility] ([facility]) SOURCE: Clean Catch Blood 150 Abnormal (applies to non-numeric res ults) [facility] ([facility]) SOURCE: Clean Catch Urobilinogen Laboratory test result [facility] NT ([facility]) SOURCE: Clean Catch WBC Laboratory test result Abnormal (applies to non -numeric results) [facility] ([facility]) SOURCE: Clean Catch Microscopic Laboratory test result [facility] T ([facility]) SOURCE: Clean Catch Epithelial Laboratory test result Abnormal (applies to non -numeric results) [facility] ([facility]) SOURCE: Clean Catch RBC Laboratory test result Abnormal (applies to non -numeric results) [facility] ([facility]) SOURCE: Clean Catch Bacteria Laboratory test result Abnormal (applies to non -numeric results) [facility] ([facility]) SOURCE: Clean Catch ID Date Data Source [id number] 07/01/2020 06:50:00 AM EST [facility] ([facility] Name Value Range Interpretation Code Description Data Melanie rce(s) Supporting Document(s) Culture Urine Laboratory test result [facility] ([facility]) SOURCE: Clean Catch ID Date Data Source [id number] 07/05/2020 12:01:00 PM EST [facility] Name Value Range Interpretation Code Description Data Melanie rce(s) Supporting Document(s) CULTURE URINE [facility] _CULTURE URINE_$$[id number]$$[id number]$$[id number]$$048830$$130975$$193614$$465199$$522670$$613281$$ 255444$$492812$$205358$$956551$$018465$$081480$$925307$$442461$$539415$$431632$$ 190685$$882643$$373165$$018264$$063641$$224031$$967432$$937614 -- Continued on next page --Patient: CANDIDO MARIO Order: [id number] Page 2Culture: CULTURE URINE Status: Final ==== -- Continued on next page --Patient: CANDIDO OCHOARA Order: [id number] Page 2Culture: CULTURE URINE Status: Prelim ===== -- Continued on next page --Patient: CANDIDO MARIO Order: [id number] Page 2Culture: CULTURE URINE Status: Prelim =====$$[id number]$$[id number] DATE/TIME: 07/05/2020 11:06Culture: CULTURE URINE Status: FinalIsolate [...] presence of possible pathogensis in progress.Urine Culture,Comprehensive: [id number] coli Flag: APatient: CANDIDO MARIO Order: [id number] Page 3Culture: CULTURE URINE Status: Final ====ISOLATE [...] S S . . . . . .69889-8Rkvqvwmcmp S S . . . . . .267-5Imipenem S S . . . . . .279- 0Levofloxacin S S . . . . . .01899-8Knixglvpj S S . . . . . .6652-2Nitrofurantoin S S . . . . . .363-2Piperacillin/Tazobactam S S . . . . . .412-7Tetracycline S S . . . . . .496-0Tobramycin S S . . . . . .508-2Trimethoprim/Sulfa S S . . . . . .516-5P1 Test performed by: Rose HURTADO #: [id number] [address] [place] [address] [id number] [facility] [id number] Director : Ross Jeffers MD NPI #:Development Eng : 07/03/20.1551.XMT.SENT REF 07/04/20.1209.XMT.SENT REF 07/05/20.1201.XMT.SENT REF ID Date Data Source [id number] 07/01/2020 07:08:00 AM EST [facility] Name Value Range Interpretation Code Description Data Melanie rce(s) Supporting Document(s) [facility] COL[facility] yellow NORMAL: Yellow [facility] CLARITY clear NORMAL: Clear [facility] Specific gravity of Urine by Test strip 1.010 1.001 - 1.030 [facility] pH 7 5 - 9 [facility] al Glucose [Mass/volume] in Urine by Test strip NORM NORMAL: Negat [facility] Bilirubin.total [Presence] in Urine by Test strip NEG NORMAL: Negative [facility] Ketones [Presence] in Urine by Test strip NEG NORMAL: Negative [facility] Protein [Mass/volume] in Urine by Test strip NEG NORMAL: Negat [facility] Nitrite [Presence] in Urine by Test strip POS NORMAL: Negative [facility] BLOOD 150 NORMAL: Negative [facility] Leukocyte esterase [Presence] in Urine by Test strip 500 KANE L: Negative [facility] Urobilinogen [Mass/volume] in Urine by Test strip NOR less deanna n 1.0 mg/dL [facility] MICROSCOPIC See Below [facility] ital WBC 5 - 7 NORMAL: NONE SEEN A [facility] Erythrocytes [#/volume] in Urine by Test strip 7 - 10 NORMAL: NON E SEEN A [facility] EPITHELIAL MODERATE NORMAL: NONE SEEN A [facility] Bacteria [Presence] in Urine sediment by Light microscopy 3+ LARGE NORMAL: NONE SEEN A [facility] ID Date Data Source [id number] 06/08/2020 02:10:00 PM EST [facility] ([facility]) Name Value Range Interpretation Code Description Data Melanie rce(s) Supporting Document(s) Erythrocytes [#/volume] in Blood by Automated count 4.16 x10*6/UL 4.2 0-6.30 [facility] ([facility]) Leukocytes [#/volume] in Blood by Automated count 5.4 x10*3/UL 4.1-10 .9 [facility] ([facility]) Hemoglobin [Mass/volume] in Blood 12.5 g/dL 12.0-18.0 [facility] ([facility]) Hematocrit [Volume Fraction] of Blood by Automated count 37.8 % 3 7.0-51.0 [facility] ([facility]) MCHC 33.0 g/dL 31.0-38.0 [facility] MCH 30.1 pg 26.0-32.0 [facility] MCV 91.0 fL 80.0-97.0 [facility] Platelets [#/volume] in Blood by Automated count 219 x10*3/UL 140-440 [facility] Erythrocyte distribution width [Ratio] by Automated count 14.4 % 11.6-13.7 [facility] ([facility]) MPV 6.9 FL 7.8-11.0 [facility] Mid % 6.5 % 1.7-9.3 [facility] Lymph % 27.9 % 10.0-58.5 [facility] Neut % 65.6 % 37.0-92.0 [facility] Lymph # 1.5 x10*3/UL 0.6-4.1 [facility] ([facility]) Neut # 3.5 x10*3/UL 2.0-7.8 [facility] ([facility]) Mid # 0.4 x10*3/UL 0.1-0.6 [facility] ([facility]) ID Date Data Source [id number] 05/04/2020 01:59:00 PM EDT [facility] ([facility]) Name Value Range Interpretation Code Description Data Melanie rce(s) Supporting Document(s) Triglyceride [Mass/volume] in Serum or Plasma 186 mg/dL 30-150 [facility] ([facility]) Cholesterol in HDL [Mass/volume] in Serum or Plasma 55 mg/dL 35-60 [facility] ([facility]) Cholesterol [Mass/volume] in Serum or Plasma 180 mg/dL 131-200 [facility] ([facility]) Cholesterol in LDL [Mass/volume] in Serum or Plasma by calcu lation 88 CALC 50-159 [facility] ([facility]) ID Date Data Source [id number] 05/04/2020 01:59:00 PM EDT [facility] ([facility]) Name Value Range Interpretation Code Description Data Melanie rce(s) Supporting Document(s) Creatinine 1.0 mg/dL 0.6-1.3 [facility] Glucose [Mass/volume] in Serum or Plasma 86 mg/dL 74-99 [facility] ([facility]) 100-125 mg/dL PRE-DIABETES/FASTING >126 mg/dL DIABETES/FASTING Urea nitrogen [Mass/volume] in Serum or Plasma 14 mg/dL 7-18 [facility] ([facility]) Sodium [Moles/volume] in Serum or Plasma 144 meq/L 136-145 [facility] ([facility]) Potassium [Moles/volume] in Serum or Plasma 4.0 meq/L 3.5-5.1 [facility] ([facility]) Chloride [Moles/volume] in Serum or Plasma 105 meq/L 98-107 [facility] ([facility]) Carbon dioxide, total [Moles/volume] in Serum or Plasma 36 meq/L 21 -32 [facility] ([facility]) Total Bilirubin 0.2 mg/dL 0.2-1.0 [facility] ([facility]) Calcium [Mass/volume] in Serum or Plasma 9.9 mg/dL 8.5-10.1 [facility] ([facility]) Alkaline phosphatase isoenzyme [Units/volume] in Serum or Pl asma 55 mg/dL 46-116 [facility] ([facility]) Aspartate aminotransferase [Enzymatic activity/volume] in Serum or Plasma 23 U/L 15-37 [facility] ([facility] ) Alanine aminotransferase [Enzymatic activity/volume] in Seru m or Plasma 26 U/L 12-78 [facility] ([facility]) Albumin [Mass/volume] in Serum or Plasma 3.7 g/dL 3.4-5.0 [facility] ([facility]) A/G Ratio 0.93 CALC 1.00-1.90 [facility] Proteinase 3 Ab [Units/volume] in Serum 7.7 g/dL 6.4-8.2 [facility] Glomerular filtration rate/1.73 sq M pre dicted among blacks [Volume Rate/Area] in Serum or Plasma by Creatinine-based formula (MDRD) Laboratory test result [facility] ([facility]) <content>CHRONIC KIDNEY DISEASE STAGING PER NKF</content>
<content></content>
<content>STAGE I & II GFR >= 60 NORMAL TO MILDLY DECREASED</content>
<content>STAGE III GFR 30-59 MODERATELY DECREASED</content>
<content>STAGE IV GFR 15-29 SEVERELY DECREASED</content>
<content>STAGE V GFR <15 VERY LITTLE GFR LEFT</content>
<content>ESRD GFR <15 ON VICE PRESIDENT OF SOFTWARE ENGINEERING</content>
<content></content> Glomerular filtration rate/1.73 sq M pre dicted among non-blacks [Volume Rate/Area] in Serum or Plasma by Creatinine-based formula (MDRD) 56 mL/min [facility] ID Date Data Source [id number] 05/04/2020 01:59:00 PM EDT [facility] Name Value Range Interpretation Code Description Data Melanie rce(s) Supporting Document(s) Leukocytes [#/volume] in Blood by Automated count 5.8 x10*3/UL 4.1-10 .9 [facility] ([facility]) Hemoglobin [Mass/volume] in Blood 12.1 g/dL 12.0-18.0 [facility] ([facility]) Hematocrit [Volume Fraction] of Blood by Automated count 37.2 % 3 7.0-51.0 [facility] Erythrocytes [#/volume] in Blood by Automated count 4.06 x10*6/UL 4.2 0-6.30 [facility] ([facility]) MCV 91.6 fL 80.0-97.0 [facility] MCH 29.8 pg 26.0-32.0 [facility] ([facility]) MCHC 32.6 g/dL 31.0-38.0 [facility] ([facility]) Erythrocyte distribution width [Ratio] by Automated count 14.4 % 11.6-13.7 [facility] Platelets [#/volume] in Blood by Automated count 240 x10*3/UL 140-440 [facility] ([facility]) MPV 7.1 FL 7.8-11.0 [facility] ([facility]) Lymph % 26.4 % 10.0-58.5 [facility] ([facility]) Mid % 7.1 % 1.7-9.3 [facility] ([facility]) Neut % 66.5 % 37.0-92.0 [facility] ([facility]) Mid # 0.5 x10*3/UL 0.1-0.6 [facility] ([facility]) Lymph # 1.5 x10*3/UL 0.6-4.1 [facility] ([facility]) Neut # 3.8 x10*3/UL 2.0-7.8 [facility] ([facility]) ID Date Data Source [id number] 04/23/2020 01:44:00 PM EDT [facility] ([facility]) Name Value Range Interpretation Code Description Data Melanie rce(s) Supporting Document(s) Lactate [Mass/volume] in Serum or Plasma 1.3 mmol/L 0.4-2.0 [facility] ([facility]) Y/N query for Sepsis Lactate Rule: Y ID Date Data Source [id number] 04/01/2020 06:10:00 AM EDT [facility] ([facility]) Name Value Range Interpretation Code Description Data Melanie rce(s) Supporting Document(s) Appearance, Urine RFX Laboratory test result [facility] ([facility]) Color, Urine RFX Laboratory test result [facility] ([facility]) PH,Urine RFX 8.0 units 5.0-9.0 [facility] ([facility]) Protein, Urine Auto RFX Laboratory test result [facility] ([facility]) Specific Marsing Ur Auto RFX 1.006 1.002-1.035 [facility] ([facility]) Ketone, Urine Auto RFX Laboratory test result [facility] ([facility]) Glucose, Urine (Ua) Auto RFX Laboratory test result [facility] ([facility]) Bilirubin, Urine Auto RFX Laboratory test result [facility] ([facility]) Urobilinogen, Urine Auto RFX 0.2 mg/dL 0.0-2.0 [facility] ([facility]) Leukocyte Esterase Ur Auto RFX Laboratory test result [facility] ([facility]) Nitrite, Urine Auto RFX Laboratory test result [facility] ([facility]) Blood, Urine Blood RFX Laboratory test result [facility] ([facility]) WBC, Urine Auto RFX 1 /HPF 0-3 [facility] ([facility]) Bacteria, Urine Auto RFX Laboratory test result [facility] ([facility]) RBC, Urine Auto RFX 2 /HPF 0-3 [facility] ([facility]) Squam Epithelial Cell Ur Aurfx 1 /HPF 0-6 [facility] ([facility]) Hyaline Cast, Urine Auto RFX 0 /LPF 0-1 M [facility]ENT ([facility]) Amorphous Sediment RFX Laboratory test result [facility] ([facility]) ID Date Data Source [id number] 03/21/2020 08:47:[address] [facility] [address] [place] [address] PHONE: [phone] FAX: [phone] Name .................. : CANDIDO MARIO Acct Number.................. : [id number] ROOM. ................. : TR-06 Number ................... : [id number] Stay type ............. : E/R Discharge Date......... ... : 03/18/20 Admit Date ......... : 03/18/20 Admit Phys .................... : VENERUS BR Date of ....... : 1955 Family Phys ................... : JENNY NAN Phone .................. : [phone] Age ................................ : 64 Film# .................. .:[id number] Sex ................................. : F Unsigned transcriptions are preliminary reports and do not represent a medical or legal document [place]OT COMPLETE-[address] [place] [id number] COMPLETE:03/18/20 05:31 KJE [id number] Reason(s): Pain RIGHT FOOT X-RAY: HISTORY: Pain. [...] rce(s) Supporting Document(s) ID Date Data Source [id number] 03/21/2020 08:47:[address] [facility] [address] [place] [address] PHONE: [phone] FAX: [phone] Name .................. : CANDIDO MARIO Acct Number.................. : [id number] [facility] ................... : [id number] Stay type ............. : E/R Discharge Date......... ... : 03/18/20 Admit Date ......... : 03/18/20 Admit Phys .................... : TAMAR BHAKTA Date of ....... : 1955 Family Phys ................... : JENNY NAN Phone .................. : [phone] Age ................................ : 64 Film# .................. .:[id number] Sex ................................. : F Unsigned transcriptions are preliminary reports and do not represent a medical or legal document ANKLE COMPLETE RT [id number] COMPLETE:03/18/20 05:31 KJE [id number] Reas on(s): Trauma/Injury RIGHT ANKLE X-RAY: 3-VIEWS [...] rce(s) Supporting Document(s) ID Date Data Source [id number] 03/18/2020 04:56:00 AM EDT [facility] 1 OrderSheet [facility] Emergency Department [address] [place] [address] Phone #: ext- [phone] 03/18/2020 04:56 Patient: FABIANO RAMIREZ Sex: F : 1955 Age: 64yWEIGHT:73.0 kg (M) HEIGHT:59 inches (S) BMI:32.5ALLERGIES: Darvacet, Demerol, MicrodentinCHIEF COMPLAINT: Rt, ankle, Rt, footDIAGNOSIS: Arthritis, Urinary tract infectious disease, Pain in lower limbLAB ORDERSOrder Description Priority Entered Acknowledged InitialedUric Acid STAT 05:03/18/2020 06:04 Henri Oliva R.N. Physician;Sed. Rate STAT 05:03/18/2020 06:04 Henri Oliva R.N. Physician;CRP STAT 05:03/18/2020 06:04 Henri Oliva R.N. Physician;DIAGNOSTIC STUDY ORDERSOrder Description Priority Entered Acknowledged InitialedAnkle Complete STAT 05:07 03/18/2020 06:04 Right Henri Oliva R.N.(Oxygen?(No)) Physician; Reason for Study: Trauma/InjuryFoot Complete STAT 05:03/18/2020 06:04 Right Henri Oliva R.N.(Oxygen?(No)) Physician; Reason for Study: Pain, Trauma/InjuryMEDICATION/IV/DRIP/FLUID ORDERSOrder Description Priority Entered Acknowledged InitialedGENERAL ORDERSOrder Description Priority Entered Acknowledged InitialedOrthopedic Shoe (R 05:43 03/18/2020 06:04 demetrio Oliva) Henri Inman R.N. Physician;[Electronically signed by Storm Oliva R.N. (06:03/18/2020)] 2 OrderSheet [facility] Emergency Department [address] [place] [address] Phone #: ext- [phone] 03/18/2020 04:56 Patient: FABIANO RAMIREZ Sex: F : 1955 Age: 64y[Electronically signed by Henri Boyle Physician (07:31 03/19/2020)][Electronically locked by Storm Oliva R.N. (:03/18/2020)] Name Value Range Interpretation Code Description Data Melanie rce(s) Supporting Document(s) ID Date Data Source [id number] 03/18/2020 04:56:00 AM EDT [facility] 1 Medication Reconciliation Report [facility] Emergency Department [address] [place] [address] Phone #: ext- [phone] 03/18/2020 04:56 Patient: [...] the Emergency Department: 2 Medication Reconciliation Report [facility] Emergency Department [address] [place] [address] Phone #: ext- [phone] 03/18/2020 04:56 Patient: FABIANO RAMIREZ Sex: F : 1955 Age: 64yNone.The following Medications were prescribed to the patient:None. Name Value Range Interpretation Code Description Data Melanie rce(s) Supporting Document(s) ID Date Data Source [id number] 03/18/2020 04:56:00 AM EDT [facility] 1 Medication Administration Record [facility] Emergency Department [address] [place] [address] Phone #: ext- [phone] 03/18/2020 04:56 Patient: FABIANO RAMIREZ Sex: F : 1955 Age: 64yWeight: 73.0 kgHeight/Length: 59 inBMI: 32.5ALLERGIES: Darvacet, Demerol, MicrodentinDate/Time Medication Administered Medication Ordered Name Value Range Interpretation Code Description Data Melanie rce(s) Supporting Document(s) ID Date Data Source [id number] 03/18/2020 04:56:00 AM EDT [facility] 1 General Instructions [facility] Emergency Department [address] [place] [address] Phone #: ext- [phone] 03/18/2020 04:56 Patient: [...] minimize impact from footfalls.).Follow-up:Follow up with a doll surgeon as needed. Call for the next available [...] minutes at a time. 2 General Instructions [facility] Emergency Department [address] [place] [address] Phone #: ext- [phone] 03/18/2020 04:56 Patient: [...] joint or bear weight on the joint [id number] [employer]. [address] [place] [address]. All rights reserved. This information is not intended as asubstitute for professional medical care. Always follow your healthcare professional's instructions.Arthralgia 3 General Instructions [facility] Emergency Department [address] [place] [address] Phone #: ext- [phone] 03/18/2020 04:56 Patient: [...] provider or as advised. 4 General Instructions [facility] Emergency Department [address] [place] [address] Phone #: ext- [phone] 03/18/2020 04:56 Patient: [...] or as directed by your healthcare provider [phone] [employer]. [address] [place] [address]. All rights reserved. This information is not [...] bladder (cystitis), or the 5 General Instructions [facility] Emergency Department [address] [place] [address] Phone #: ext- [phone] 03/18/2020 04:56 Patient: [...] usually happens because of: 6 General Instructions [facility] Emergency Department [address] [place] [address] Phone #: ext- [phone] 03/18/2020 04:56 Patient: [...] to back after using 7 General Instructions [facility] Emergency Department [address] [place] [address] Phone #: ext- [phone] 03/18/2020 04:56 Patient: FABIANO RAMIREZ Sex: F [...] if the results will affect your treatment.Call [phone] if any of the following occur: [...] to keep medicine down 8 General Instructions [facility] Emergency Department [address] [place] [address] Phone #: ext- [phone] 03/18/2020 04:56 Patient: FABIANO RAMIREZ Sex: F : 1955 Age: 64y Weakness or dizziness Vaginal discharge Pain, redness, or swelling in the outer vaginal area (labia) [id number] [employer] [place] [place] [address]. All rights reserved. This information is not [...] function and reduce pain. 9 General Instructions [facility] Emergency Department [address] [place] [address] Phone #: ext- [phone] 03/18/2020 04:56 Patient: [...] joint or bear weight on the joint [id number] [employer]. [address] [place] [place] [address]. All rights reserved. This information is not [...] rce(s) Supporting Document(s) ID Date Data Source [id number] 03/18/2020 04:56:00 AM EDT [facility] 1 Clinical Report - Nurses [facility] Emergency Department [address] [place] [address] Phone #: ext- [phone] 03/18/2020 04:56 Patient: [...] notification of patient arrival was received.EMS Treatment PALLIATIVE NURSE:See EMS report.SEPSIS SCREEN: SIRS Screen negative. Sepsis [...] Oliva R.N. 2 Clinical Report - Nurses [facility] Emergency Department [address] [place] [address] Phone #: ext- [phone] 03/18/2020 04:56 Patient: [...] weakness and 3 Clinical Report - Nurses [facility] Emergency Department [address] [place] [address] Phone #: ext- [phone] 03/18/2020 04:56 Patient: [...] Patient does not have advanced directive. --05:03/18/20 tSorm Oliva R.N.PHYSICAL CRHKLMPWIK30:05 08/29/20. To room via stretcher.GENERAL / NEURO / [...] verbalized understanding. Written instructions p rovided in [place] Islander. The patient was discharged by the physician. [...] Oliva R.N. 4 Clinical Report - Nurses [facility] Emergency Department [address] [place] [address] Phone #: ext- [phone] 03/18/2020 04:56 Patient: FABIANO RAMIREZ Sex: F : 1955 Age: 64yLocked/Released at 03/18/2020 06:29 by Storm Oliva R.N. Name Value Range Interpretation Code Description Data Melanie rce(s) Supporting Document(s) ID Date Data Source [id number] 03/18/2020 04:56:00 AM EDT [facility] 1 Clinical Report - Physicians/Mid Levels [facility] Emergency Department [address] [place] [address] Phone #: ext- [phone] 03/18/2020 04:56 Patient: [...] injury 2 Clinical Report - Physicians/Mid Levels [facility] Emergency Department [address] [place] [address] Phone #: ext- [phone] 03/18/2020 04:56 Patient: FABIANO RAMIREZ Sex: F [...] process. Uric Acid: (OLE: 03/18/2020 05:40) ( [employer] 03/18/2020 06:10) Final results Test Result Flag Units (Reference) URIC ACID 6.4 MG/DL (2.5 - 8.5) Sed. Rate: (OLE: 03/18/2020 05:40) ( [facility] 03/18/2020 06:05) Final results Test Result Flag Units (Reference) SED RATE 46 H mm/hr (0 - 30) SED RATE REENTER 46 CRP: (OLE: 03/18/2020 05:40) ( [employer] 03/18/2020 06:10) Final results Test Result Flag Units (Reference) CRP-HS 6.67 H MG/L (1.00 - 3.00) CDC/S HS-CRP CUT-OFF: RELATIVE RISK: <1.0 mg/L Low 1.0 - 3.0 mg/L Average >3.0 mg/L High Optimally, the average of HS-CRP results repeated two weeks apart should be used for risk assessment. Ankle Complete Right: (OLE: 03/18/2020 05:07) ( MsgRcvd 03/18/2020 09:23) In Progress ANKLE COMPLETE RT Reason(s): Trauma/Injury TRANSPORTATION: WC IV? O2? Oxygen?(No) Room: ED Exam ANKLE COMPLETE RT [facility] [address] [place] [address] PHONE: [phone] FAX: [phone] Name .................. : CANDIDO MARIO Acct Number.................. : [id number] ROOM. ................. : TR-06 MR Number ................... : [id number] Stay type ............. : E/R Discharge Date......... ... : 03/18/20 Admit Date ......... : 03/18/20 Admit Phys .................... : TAMAR BHAKTA Date of ....... : 1955 Family Phys ................... : JENNY GARCIA Phone .................. : [phone] Age ................................ : 64 Film# .................. .:[id number] Sex ................................. : F Unsigned transcriptions are preliminary reports and do not represent a medical or legal document ANKLE COMPLETE RT [id number] COMPLETE:03/18/20 05:31 KJE [id number] Reason(s): Trauma/Injury 3 Clinical Report - Physicians/Mid Levels [facility] Emergency Department [address] [place] [address] Phone #: ext- [phone] 03/18/2020 04:56 Patient: FABIANO RAMIREZ Sex: F [...] Exam FOOT COMPLETE-3 [place] [address] PHONE: [phone] FAX: [phone] Name .............. .... : CANDIDO MARIO Acct Number.................. : [id number] ROOM. ................. : TR-06 MR Number ................... : [id number] Stay type ............. : E/R Discharge Date......... ... : 03/18/20 Admit Date ......... : 03/18/20 Admit Phys .................... : TAMAR BHAKTA Date of ....... : 1955 Family Phys ................... : [employer] Phone .................. : [phone] Age ................................ : 64 Film# .................. .:[id number] Sex ................................. : F Unsigned transcriptions are preliminary reports and do not represent a medical or legal document [place]TE-[address] [place] [id number] COMPLETE:03/18/20 05:31 KJE [id number] Reason(s): Pain Trauma/Injury 4 Clinical Report - Physicians/Mid Levels [facility] Emergency Department [address] [place] [address] Phone #: ext- [phone] 03/18/2020 04:56 Patient: FABIANO RAMIREZ Sex: F : 1955 Age: 64y RIGHT FOOT X-RAY: HISTORY: Pain. COMPARISON: None. FINDINGS: No fracture or malalignment. Osteopenia is noted. Mild hallux valgus. Mild midfoot degenerative arthritis. Moderate size claudicated plantar calcaneal spur. IMPRESSION: No acute findings. Electronically Reviewed and Signed By DCTNAME , SIGNDATE, APM Transcribe Initials: SHANNAN , Transcribe Date: 03/18/20 09:23, Dictation Date: <<REPDIST>> Page 1 of 1 . Note - Tests: (R foot - Heel spur. Osteoarthritic changes.).PROGRESS AND PROCEDURESCourse of Care: 05:Mar 18 2020. Patient is stable. 05:36 Mar 18 2020. No evidence of any acute bony injury to R foot or ankle. She does have some arthritic and osteopenic changes. I recommend cushioned footwear with gel or foam inserts for more shock absorption. Pt. has P. aeruginosa UTI from cx done at [facility] ED visit 2 weeks ago. She is finishing a Bactrim Rx. Will discharge. Need to get repeat urinalysis with primary physician and treatment for osteoarthritis. Disposition: Discharged home in good and improved condition (05:37 Mar 18 2020). Condition: good.CLINICAL IMPRESSION Acute right ankle and foot pain (and chronic). 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 Chronic urinary tract infection with cystitis (P. Aeruginosa - Treated). No hematuria. Not associated with indwelling catheter or obstruction. 5 Clinical Report - Physicians/Mid Levels [facility] Emergency Department [address] [place] [address] Phone #: ext- [phone] 03/18/2020 04:56 Patient: FABIANO RAMIREZ Sex: F [...] from footfalls.). Follow-up: Follow up with a doll surgeon as needed. Call for the next available appointment. Reason for referral: evaluation, treatment and R foot / ankle pain. Understanding of the discharge instructions verbalized by patient.(Electronically signed by Henri Boyle, Physician 03/19/2020 07:31) Name Value Range Interpretation Code Description Data Melanie rce(s) Supporting Document(s) ID Date Data Source [id number] 03/18/2020 05:40:00 AM EDT [facility] ([facility]) Name Value Range Interpretation Code Description Data Melanie rce(s) Supporting Document(s) Urate [Mass/volume] in Serum or Plasma 6.4 mg/dL 2.5-8.5 [facility] ([facility]) C reactive protein [Mass/volume] in Serum or Plasma by High sensitivity method 6.67 mg/L 1.00-3.00 [facility] ([facility] ) <content>CDC/S HS-CRP CUT-OFF: RELATIVE RISK:</content>
<content><1.0 mg/L Low</content>
<content>1.0 - 3.0 mg/L Average</laron nt>
<content>>3.0 mg/L High</content>
<content>Optimally, the average of HS-CRP results repeated</content>
<content>two weeks apart should be used for risk assessment.</content>
<content></content> ID Date Data Source [id number] 03/18/2020 05:40:00 AM EDT [facility] ([facility]) Name Value Range Interpretation Code Description Data Melanie rce(s) Supporting Document(s) Sed Rate 46 mm/hr 0-30 [facility] ([facility]) Sed Rate Reenter 46 [facility] ([facility]) ID Date Data Source [id number] 03/18/2020 06:10:00 AM EDT [facility] Name Value Range Interpretation Code Description Data Melanie rce(s) Supporting Document(s) C reactive protein [Mass/volume] in Serum or Plasma by High sensitivity method 6.67 MG/L 1.00 - 3.00 H [facility] CDC/S HS-CRP CUT-OFF: RELATIVE RISK: <1.0 mg/L Low 1.0 - 3.0 mg/L Average >3.0 mg/L High Optimally, the average of HS-CRP results repeated two weeks apart should be used for risk assessment. ID Date Data Source [id number] 03/18/2020 06:10:00 AM EDT [facility] Name Value Range Interpretation Code Description Data Melanie rce(s) Supporting Document(s) Urate [Mass/volume] in Serum or Plasma 6.4 MG/DL 2.5 - 8.5 [facility] ID Date Data Source [id number] 03/18/2020 06:05:00 AM EDT [facility] Name Value Range Interpretation Code Description Data Melanie rce(s) Supporting Document(s) Erythrocyte sedimentation rate by Westergren method 46 mm/hr 0 - 30 H [facility] SED RATE REENTER 46 [facility] ID Date Data Source [id number] 03/02/2020 12:27:00 PM EDT [facility] 1 OrderSheet [facility] Emergency Department [address] [place] [address] Phone #: ext- [phone] 03/02/2020 12:19 Patient: FABIANO RAMIREZ Sex: F : 1955 Age: 64yWEIGHT:73.4 kg HEIGHT:59 inches BMI:32.7ALLERGIES: Marielena, Kristina, MicrodentinCHIEF COMPLAINT: Rt, ankleDIAGNOSIS: Sprain of joint, Urinary tract infectious diseaseLAB ORDERSOrder Description Priority Entered Acknowledged InitialedUrinalysis (Clean STAT 12:49 03/02/2020 12:51 TerryCatch) Anita Wang RN PA;DIAGNOSTIC STUDY ORDERSOrder Description Priority Entered Acknowledged InitialedAnkle Complete STAT 12:49 03/02/2020 12:51 Criss Wang RN(Oxygen?(No)) PA; Reason for Study: rolled [...] Ac Wang RN (16:00 03/02/2020)][Electronically signed by Anita Fuentes (22:54 03/02/2020)][Electronically locked by Ac Wang RN (16:00 03/02/2020)] Name Value Range Interpretation Code Description Data Melanie rce(s) Supporting Document(s) ID Date Data Source [id number] 03/02/2020 12:27:00 PM EDT [facility] 1 Medication Reconciliation Report [facility] Emergency Department [address] [place] [address] Phone #: ext- [phone] 03/02/2020 12:19 Patient: [...] the Emergency Department: 2 Medication Reconciliation Report [facility] Emergency Department [address] [place] [address] Phone #: ext- [phone] 03/02/2020 12:19 Patient: FABIANO RAMIREZ Sex: F : 1955 Age: 64yNone.The following Medications were prescribed to the patient:Cipro 500 mg tablet Take 1 tablet twice a day -- Dispense 10 tablet. Refills: 0. Substitution permitted.No [employer] [address] [facility] ; [place] [address]. .Bactrim 400 mg-80 mg tablet Take 1 tablet twice a day -- Dispense 10 tablet. Refills: 0. Substitutionpermitted.No [employer] [address] [facility] ; [place] [id number]. . -- EMRE Puga Name Value Range Interpretation Code Description Data Melanie rce(s) Supporting Document(s) ID Date Data Source [id number] 03/02/2020 12:27:00 PM EDT [place] [address] Medication Administration Record [facility] Emergency Department [address] [place] [address] Phone #: ext [phone] 03/02/2020 12:19 Patient: FABIANO RAMIREZ Sex: F : 1955 Age: 64yWeight: 73.4 kgHeight/Length: 59 inBMI: 32.7ALLERGIES: Microdentin, Darvacet, DemerolDate/Time Medication Administered Medication Ordered Name Value Range Interpretation Code Description Data Melanie e(s) Supporting Document(s) ID Date Data Source [id number] 03/02/2020 12:27:00 PM EDT [facility] 1 General Instructions [facility] Emergency Department [address] [place] [address] Phone #: ext [phone] 03/02/2020 12:19 Patient: FABIANO RAMIREZ Sex: F [...] you would benefit from an orthopedic consult.).War [place]: GENERAL WARNINGS: Return or contact your physician [...] -- Dispense 10 tablet. Refills: 0. Substitution permitted.No [employer] [address] [place] [address]. Phone: .Bactrim 400 mg-80 mg tablet Take 1 tablet twice a day -- Dispense 10 tablet. Refills: 0. Substitutionpermitted.No [employer] [address] [place] [address]. Phone: [phone] General Instructions [facility] Emergency Department [address] [place] [address] Phone #: ext- [phone] 03/02/2020 12:19 Patient: FABIANO RAMIREZ Sex: F : 1955 Age: [id number] .Understanding of the discharge instructions verbalized by [...] several months to recover. 3 General Instructions [facility] Emergency Department [address] [place] [address] Phone #: ext- [phone] 03/02/2020 12:19 Patient: FABIANO RAMIREZ Sex: F [...] thin towel or cloth. You may use [id number] pain medicine (NSAIDS or nonsteroidal anti-inflammatory drugs) [...] helpful in preventing long-term 4 General Instructions [facility] Emergency Department [address] [place] [address] Phone #: ext- [phone] 03/02/2020 12:19 Patient: [...] You re-injure your ankle 5 General Instructions [facility] Emergency Department [address] [place] [address] Phone #: ext- [phone] 03/02/2020 12:19 ------- Patient: FABIANO RAMIREZ Sex: F : 1955 Age: 64y [id number] [employer] [place] [address], [place] [id number]. All rights reserved. This information is not [...] more often than usual 6 General Instructions [facility] Emergency Department [address] [place] [address] Phone #: ext- [phone] 03/02/2020 12:19 Patient: [...] a diaphragm for control 7 General Instructions [facility] Emergency Department [address] [place] [address] Phone #: ext- [phone] 03/02/2020 12:19 Patient: [...] treatment. This is especially 8 General Instructions [facility] Emergency Department [address] [place] [address] Phone #: ext- [phone] 03/02/2020 12:19 Patient: [...] swelling in the outer vaginal area (labia) [id number] [employer]. [address] [place] [address]. All rights reserved. This information is not intended as asubstitute for professional medical care. Always follow your healthcare professional's instructions. You have been given the following additional information: Ankle Sprain (Adult) Bladder Infection, Female (Adult) 9 General Instructions [facility] Emergency Department [address] [place] [address] Phone #: ext- [phone] 03/02/2020 12:19 Patient: FABIANO RAMIREZ Sex: F : 1955 Age: 64y(Electronically signed by EMRE Puga 03/02/2020 22:55) Name Value Range Interpretation Code Description Data Melanie rce(s) Supporting Document(s) ID Date Data Source [id number] 03/02/2020 12:27:00 PM EDT [facility] 1 Clinical Report - Nurses [facility] Emergency Department [address] [place] [address] Phone #: [phone] ext- [phone] 03/02/2020 12:19 Patient: FABIANO RAMIREZ Sex: F : 1955 Age: 64yTRIAGEArrived by EMS. Historian: patient. ( per pt she rolled ankle this am. pt put herself in a soft cast andwalking boot.).Triage time: 12:21 03/02/2020. Acuity: LEVEL 4.Chief Complaint: RIGHT LOWER EXTREMITY PAIN.Alert.This started just prior to arrival.Treatment PALLIATIVE NURSE:None. --12:03/02/20 Kelly Mahmood R.N.12:03/02/20. BP: 150/84. HR: 97. RR: 16. O2 saturation: 95%. Temp: 99.0 F. Pain level now 04/29.--12:03/02/20 Kelly Mahmood R.N.Weight: 73.4 kg. Height/Length: 59 inches. BMI: 32.7. --12:03/02/20 Kelly Mahmood R.N.MedicationsPromethazine HCl Oral (Tablet 25 mg), as needed. --12:24 03/02/20 Kelly Mahmood R.N. HYDROcodone-Acetaminophen Oral (Solution 7.5-325 mg/15mL), as needed. --12:24 03/02/20Kelly Mahmood R.N. KlonoPIN Oral 0.25 mg, at bedtime. --12:24 03/02/20 Kelly Mahmood R.N. Motrin IB Oral 400, as needed. --12:25 03/02/20 Kelly Mahmood R.N. LaMICtal Oral (Tablet 25 mg), 2x a day. --12:03/02/20 Kelly Mahmood R.N. Sudafed Oral 60 mg, 2x a day. --12:25 03/02/20 Kelly Mahmood R.N. Potassium Chloride Oral (Packet 20 meq), 2x a day. --12:25 03/02/20 Kelly Mahmood R.N. ZyPREXA Oral (Tablet 10 mg), at bedtime. --12:26 03/02/20 Kelly Mahmood R.N. Albuterol Sulfate Inhalation 2 [...] testing but 2 Clinical Report - Nurses [facility] Emergency Department [address] [place] [address] Phone #: ext- [phone] 03/02/2020 12:19 Patient: [...] treatment room. --12:28 03/02/20 Kelly Mahmood R.N.PHYSICAL [id number] 03/02/20. Ambulatory to room.GENERAL / NEURO / PSYCH: Oriented X 4.EXTREMITIES: Extremity pulses are within normal limits. Right foot: tenderness and swelling (top). ( ptwearing air cast and cast shoe).SKIN: Skin is warm and dry. --12:44 03/02/20 Ac Wang RN.NURSING PROGRESS NOTESBed placed in lowest position. Brakes of bed on. --12:28 03/02/20 Kelly Mahmood R.N. Checked patient name and birthdate: patient confirmed. Clean catch urine collected; sample sent to lab for urinalysis. Specimen labeled in the presence of the patient (2825). Two patient identifiers checked. Call light placed in reach. Side rails up x 2. Bed placed in lowest position. Brakes of bed on. Patient ready for evaluation- PA notified. --12:45 03/02/20 Ac Wang RN 12:52 03/02/20. Patient transported to radiology by wheelchair with critical care technician. ([id number]). --12:57 03/02/20 Ac Wang RN 13:01 03/02/20. BP: 93/42. MAP: 59. HR: 91. RR: 24. O2 saturation: 100%. --13:01 03/02/20 [place] freight coordinator, [facility] Tech1 3 Clinical Report - Nurses [facility] Emergency Department [address] [place] [address] Phone #: ext- [phone] 03/02/2020 12:19 Patient: FABIANO RAMIREZ Sex: F : 1955 Age: 64y Patient returned from radiology by wheelchair with critical care technician. ([id number]). --13: 08 03/02/20 Ac Wang RN ( 1330 pt moved to hallway 3 to open rm 7 for ambulance). --13:58 03/02/20 Ac Wang RN ( 1345 pt fitted with new air cast and cast shoe). --16:00 03/02/20 Ac Wang RN.DISPOSITION / DISCHARGE 14:08 03/02/20. BP: 124/76. MAP: 92. HR: 75. RR: 16. O2 saturation: 99%. Temp: 98.1 F. --14:08 03/02/20 [facility] Tech, Kelly, Tech1 Departure time: 14:30 03/02/2020. --15:35 03/02/20 Concha Kohli RN Departure time: 14:30 03/02/2020. Condition at departure: unchanged. No learning barriers present. Discharge instructions provided and reviewed with the patient. Reviewed medication(s) side effects, precautions, dosing and course information. Prescription(s) sent electronically to pharmacy. Reviewed splint care instructions. Reviewed referrals. Provided to follow-up provider. Patient verbalized understanding. Written instructions provided in [place] Islander. The patient was discharged by the physician quality control assistant. She was discharged home. She left in a wheelchair and via taxi. --15:57 03/02/20 Ac Wang RN 14:30 03/02/20. Pain level now: 08/30. --15:58 03/02/20 Ac Wang RN.Locked/Released at 03/02/2020 16:00 by Ac Wang RN Name Value Range Interpretation Code Description Data Melanie rce(s) Supporting Document(s) ID Date Data Source [id number] 03/02/2020 12:27:00 PM EDT [facility] 1 Clinical Report - Physicians/Mid Levels [facility] Emergency Department [address] [place] [address] Phone #: ext- [phone] 03/02/2020 12:19 Patient: FABIANO RAMIREZ Sex: F [...] needed.Allergies:Darvacet.Demerol. 2 Clinical Report - Physicians/Mid Levels [facility] Emergency Department [address] [place] [address] Phone #: ext- [phone] 03/02/2020 12:19 Patient: [...] and ankle exam otherwise negative. Extremities otherwise negative.SELDOVIA ANKLE RULES: The need for X-rays is [...] 1.030 3 Clinical Report - Physicians/Mid Levels [facility] Emergency Department [address] [place] [address] Phone #: ext- [phone] 03/02/2020 12:19 --- Patient: FABIANO RAMIREZ Sex: [...] Ankle Complete Right: (OLE: 03/02/2020 12:49) ( NhgRcvd 03/02/2020 15:57) In Progress ANKLE COMPLETE RT [...] (chronic). 4 Clinical Report - Physicians/Mid Levels [facility] Emergency Department [address] [place] [address] Phone #: ext- [phone] 03/02/2020 12:19 Patient: FABIANO RAMIREZ Sex: F : 1955 Age: 64yINSTRUCTIONS Apply [...] Dispense 10 tablet. Refills: 0. Substitution permitted. [employer] #57 - [address] [facility] ; [place] [address]. . Bactrim 400 mg-80 mg tablet Take 1 tablet twice a day -- Dispense 10 tablet. Refills: 0. Substitution permitted. [employer] #65 - [address] [facility] ; [place] [id number]. . Understanding of the discharge instructions verbalized by patient. 5 Clinical Report - Physicians/Mid Levels [facility] Emergency Department [address] [place] [address] Phone #: ext- [phone] 03/02/2020 12:19 Patient: FABIANO RAMIREZ Sex: F : 1955 Age: 64y(Electronically signed by EMRE Puga 03/02/2020 22:55) Name Value Range Interpretation Code Description Data Melanie rce(s) Supporting Document(s) ID Date Data Source [id number] 03/02/2020 12:27:00 PM EDT [facility] Addenda for FABIANO RAMIREZ VisitID: [id number] Date: 11:50Pt urine grew pseudomonas aeruginosea; Pt was d/c on Cipro 500mg PO BID, and Bactrim PO [id number]; Cipro is resistent and bactrim not tested. [...] sheverbalized understanding.(Electronically signed by Rhiannon Latham R.N. 03/06/2020 11:50) Name Value Range Interpretation Code Description Data Melanie rce(s) Supporting Document(s) ID Date Data Source [id number] 03/06/2020 09:28:[address] [facility] [address] [place] [address] PHONE: [phone] FAX: [phone] Name .................. : CANDIDO MARIO Acct Number.................. : [id number] ROOM. ................. : TR-07 Number ................... : [id number] Stay type ............. : E/R Discharge Date......... ... : 03/02/20 Admit Date ......... : 03/02/20 Admit Phys .................... : AMERNATH L Date of ....... : 1955 Family Phys ................... : NON STAFF Phone .................. : [phone] Age ................................ : 64 Film# .................. .:[id number] Sex ................................. : F Unsigned transcriptions are preliminary reports and do not represent a medical or legal document [place]PLETE [place] [id number] COMPLETE:03/02/20 15:57 MICHAEL [id number] Reason(s): rolled ankle this AM now c/o [...] By Jasen Bolton MD , 03/06/20 09:28, [facility] Transcribe Initials: DZ , Transcribe Date: 03/03/20 06:07, Dictation Date: Copy for: MAYE CHANG via fax Copy for: EMERGENCY DEPT via modem Copy for: 710 MED REC DISCHARGED Page 1 of 1 Name Value Range Interpretation Code Description Data Melanie rce(s) Supporting Document(s) ID Date Data Source [id number] 03/06/2020 09:28:[address] [facility] [address] [place] [address] PHONE: [phone] FAX: [phone] Name .................. : CANDIDO MARIO Acct Number.................. : [id number] ROOM. ................. : TR-07 MR Number ................... : [id number] Stay type ............. : E/R Discharge Date......... ... : 03/02/20 Admit Date ......... : 03/02/20 Admit Phys .................... : PRESLEY Cox Date of ....... : 1955 Family Phys ................... : NON STAFF Phone .................. : [phone] Age ................................ : 64 Film# .................. .:[id number] Sex ................................. : F Unsigned transcriptions are preliminary reports and do not represent a medical or legal document FOOT COMPLETE-[address] [place] [id number] COMPLETE:03/02/20 15:57 MICHAEL [id number] Reason(s): lateral foot pain after rolling ankle this AM RIGHT FOOT X-RAY: HISTORY: Trauma. FINDINGS: There is prominent inferior calcaneal spurring. A bony density adjacent to the dorsal aspects of the talonavicular joint suggests an old fracture. No acute fractures are seen. The articular surfaces are intact. IMPRESSION: Inferior calcaneal spurring. Electronically Reviewed and Signed By Jasen Bolton MD , 03/06/20 09:28, [facility] Transcribe Initials: DZ , Transcribe Date: 03/03/20 06:06, Dictation Date: Copy for: MAYE CHANG via fax Copy for: EMERGENCY DEPT via modem Copy for: 710 MED REC DISCHARGED Page 1 of 1 Name Value Range Interpretation Code Description Data Melanie rce(s) Supporting Document(s) ID Date Data Source [id number] 03/05/2020 03:48:00 PM EDT [facility] Name Value Range Interpretation Code Description Data Melanie rce(s) Supporting Document(s) CULTURE URINE [facility] spital _CULTURE URINE_$$[id number]$$[id number]$$199438$$061692$$794004$$698075$$778898$$438189$$558071$$ 621572$$058222$$083114$$251783$$743731$$690123$$219779$$166828$$527150$$579267$$ 212173$$461273$$662969$$594850$$979874$$842026$$027295$$159411 -- Continued on next page --Patient: CANDIDO MARIO Order: [id number] Page 2Culture: CULTURE URINE Status: Final ==== -- Continued on next page --Patient: CANDIDO MARIO Order: [id number] Page 2Culture: CULTURE URINE Status: Prelim =====$$[id number]$$[id number] DATE/TIME: 03/05/2020 15:05Culture: CULTURE URINE Status: FinalIsolate 1 Pseudomonas aeruginosa Flag: A . . . . . . .5Greater than 100,000 colony forming units per mL Previous result entered on 03/04/2020 05:39 ET Gram negative rodsUrine Culture,Comprehensive: [id number] aeruginosa Flag: APatient: CANDIDO MARIO Order: [id number] Page 3Culture: CULTURE URINE Status: Final ====ISOLATE [...] R R . . . . . .24889- 8Meropenem S S . . . . . .6652-2Piperacillin S S . . . . . .408-5Ticarcillin S S . . . . . .500-9Tobramycin S S . . . . . .508-2P1 Test performed by: [facility] #: [id number] [address] [place] [address] [id number] [facility] [id number] Director : Ross Jeffers MD NPI #:Development Eng : 03/05/20.1453.XMT.SENT REF 03/05/20.1548.XMT.SENT REF ID Date Data Source [id number] 03/02/2020 01:08:00 PM EDT [facility] Name Value Range Interpretation Code Description Data Melanie rce(s) Supporting Document(s) URINALYSIS [facility] URINALYSIS SOURCE Clean Catch [facility] ital COLOR yellow NORMAL: Yellow [facility] CLARITY clear NORMAL: Clear [facility] Specific gravity of Urine by Test strip 1.010 1.001 - 1.030 [facility] pH 7 5 - 9 [facility] Glucose [Mass/volume] in Urine by Test strip NORM NORMAL: Negat [facility] Bilirubin.total [Presence] in Urine by Test strip NEG NORMAL: Negative [facility] Ketones [Presence] in Urine by Test strip NEG NORMAL: Negative [facility] Protein [Mass/volume] in Urine by Test strip NEG NORMAL: Negat [facility] Nitrite [Presence] in Urine by Test strip POS NORMAL: Negative [facility] BLOOD 10 NORMAL: Negative A [facility] Leukocyte esterase [Presence] in Urine by Test strip 500 KANE L: Negative A [facility] Urobilinogen [Mass/volume] in Urine by Test strip NOR less deanna n 1.0 mg/dL [facility] MICROSCOPIC See Below [facility] ital WBC 40 - 50 NORMAL: NONE SEEN A [facility] Erythrocytes [#/volume] in Urine by Test strip 1 - 3 NORMAL: NON E SEEN [facility] EPITHELIAL MANY NORMAL: NONE SEEN A [facility] Bacteria [Presence] in Urine sediment by Light microscopy 2+ MOD NORMAL: NONE SEEN A [facility] ID Date Data Source [id number] 01/23/2020 09:17:00 AM EDT [facility] ([facility]) Name Value Range Interpretation Code Description Data Melanie rce(s) Supporting Document(s) Bedside Glucose 115 mg/dL 80-115 [facility] ([facility]) ID Date Data Source [id number] 01/23/2020 08:56:00 AM EDT [facility] ([facility]) Name Value Range Interpretation Code Description Data Melanie rce(s) Supporting Document(s) Reflex Urine Culture Laboratory test result [facility] ([facility]) <content>FULL REPORT IN LAB NOTES (eCW [...] 4 S</content>
<content></content> ID Date Data Source [id number] 01/23/2020 08:56:00 AM EDT [facility] Name Value Range Interpretation Code Description Data Melanie rce(s) Supporting Document(s) Appearance, Urine RFX Laboratory test result [facility]) Specific [place] Ur Auto RFX 1.006 1.002-1.035 [facility] PH,Urine RFX 8.0 units 5.0-9.0 [facility]) Color, Urine RFX Laboratory test result [facility]) Protein, Urine Auto RFX Laboratory test result [facility]) Ketone, Urine Auto RFX Laboratory test result [facility]) Glucose, Urine (Ua) Auto RFX Laboratory test result [facility]) Urobilinogen, Urine Auto RFX 2.0 mg/dL 0.0-2.0 [facility] ([facility]) Nitrite, Urine Auto RFX Laboratory test result [facility]) Bilirubin, Urine Auto RFX Laboratory test result [facility]) Leukocyte Esterase Ur Auto RFX Laboratory test result [facility]) WBC, Urine Auto RFX 16 /HPF 0-3 [facility] Blood, Urine Blood RFX Laboratory test result [facility] ([facility]) RBC, Urine Auto RFX 7 /HPF 0-3 [facility] ([facility]) Squam Epithelial Cell Ur Aurfx 1 /HPF 0-6 [facility] ([facility]) Bacteria, Urine Auto RFX Laboratory test result [facility]) Hyaline Cast, Urine Auto RFX 0 /LPF 0-1 [facility] ([facility]) Amorphous Sediment RFX Laboratory test result [facility] ([facility]) ID Date Data Source [id number] 01/01/2020 08:31:00 AM EDT [facility] Name Value Range Interpretation Code Description Data Melanie rce(s) Supporting Document(s) Reflex Urine Culture Laboratory test result [facility]) <content>FULL REPORT IN LAB NOTES (eCW a [...] 1 S</content>
<content></content> ID Date Data Source [id number] 01/01/2020 08:31:00 AM EDT [facility] Name Value Range Interpretation Code Description Data Melanie rce(s) Supporting Document(s) PH,Urine RFX 7.0 units 5.0-9.0 [facility] ([facility]) Color, Urine RFX Laboratory test result [facility]) Appearance, Urine RFX Laboratory test result [facility]) Specific [place] Ur Auto RFX 1.016 1.002-1.035 [facility]) Glucose, Urine (Ua) Auto RFX Laboratory test result [facility]) Protein, Urine Auto RFX Laboratory test result [facility]) Urobilinogen, Urine Auto RFX 0.2 mg/dL 0.0-2.0 [facility] ([facility]) Bilirubin, Urine Auto RFX Laboratory test result [facility]) Ketone, Urine Auto RFX Laboratory test result [facility]) Nitrite, Urine Auto RFX Laboratory test result [facility]) WBC, Urine Auto RFX 5 /HPF 0-3 [facility] Blood, Urine Blood RFX Laboratory test result [facility]) Leukocyte Esterase Ur Auto RFX Laboratory test result [facility]) RBC, Urine Auto RFX 1 /HPF 0-3 [facility]) Bacteria, Urine Auto RFX Laboratory test result [facility]) Mucus, Urine RFX Laboratory test result [facility]) Squam Epithelial Cell Ur Aurfx 3 /HPF 0-6 [facility]) Hyaline Cast, Urine Auto RFX 0 /LPF 0-1 [facility]) ID Date Data Source [id number] 12/26/2019 05:47:00 AM EDT [facility] ([facility]) Name Value Range Interpretation Code Description Data Melanie rce(s) Supporting Document(s) Reflex Urine Culture Laboratory test result [facility] ([facility]) <content>FULL REPORT IN LAB NOTES (eCW [...] 1 S</content>
<content></content> ID Date Data Source [id number] 12/26/2019 05:47:00 AM EDT [facility] Name Value Range Interpretation Code Description Data Melanie rce(s) Supporting Document(s) Appearance, Urine RFX Laboratory test result [facility]) Specific [place] Ur Auto RFX 1.015 1.002-1.035 [facility] ([facility]) PH,Urine RFX 7.0 units 5.0-9.0 [facility] ([facility]) Color, Urine RFX Laboratory test result [facility] ([facility]) Protein, Urine Auto RFX Laboratory test result [facility] ([facility]) Glucose, Urine (Ua) Auto RFX Laboratory test result [facility] ([facility]) Ketone, Urine Auto RFX Laboratory test result [facility]) Nitrite, Urine Auto RFX Laboratory test result [facility] ([facility]) Urobilinogen, Urine Auto RFX 0.2 mg/dL 0.0-2.0 [facility] ([facility]) Bilirubin, Urine Auto RFX Laboratory test result [facility] ([facility]) Leukocyte Esterase Ur Auto RFX Laboratory test result [facility] ([facility]) WBC, Urine Auto RFX 6 /HPF 0-3 [facility] Blood, Urine Blood RFX Laboratory test result [facility] ([facility]) RBC, Urine Auto RFX 13 /HPF 0-3 [facility] Mucus, Urine RFX Laboratory test result [facility] ([facility]) Hyaline Cast, Urine Auto RFX 0 /LPF 0-1 M [facility] ([facility]) Squam Epithelial Cell Ur Aurfx 3 /HPF 0-6 [facility] ([facility]) Bacteria, Urine Auto RFX Laboratory test result [facility] ([facility]) Amorphous Sediment RFX Laboratory test result [facility] ([facility]) ID Date Data Source [id number] 11/27/2019 07:23:00 AM EDT [facility] ([facility]) Name Value Range Interpretation Code Description Data Melanie rce(s) Supporting Document(s) Reflex Urine Culture Laboratory test result [facility] ([facility]) FULL REPORT IN LAB NOTES ([facility] and [facility] ). SPECIMEN APPEARS CONTAMINATED ID Date Data Source [id number] 11/27/2019 07:23:00 AM EDT [facility] ([facility]) Name Value Range Interpretation Code Description Data Melanie rce(s) Supporting Document(s) Appearance, Urine RFX Laboratory test result [facility] ([facility]) Color, Urine RFX Laboratory test result [facility] ([facility]) PH,Urine RFX 7.0 units 5.0-9.0 [facility]) Glucose, Urine (Ua) Auto RFX Laboratory test result [facility]) Protein, Urine Auto RFX Laboratory test result [facility] Specific [place] Ur Auto RFX 1.006 1.002-1.035 [facility]) Urobilinogen, Urine Auto RFX 0.2 mg/dL 0.0-2.0 [facility]) Bilirubin, Urine Auto RFX Laboratory test result [facility]) Ketone, Urine Auto RFX Laboratory test result [facility]) Blood, Urine Blood RFX Laboratory test result [facility]) Leukocyte Esterase Ur Auto RFX Laboratory test result [facility]) Nitrite, Urine Auto RFX Laboratory test result [facility]) Bacteria, Urine Auto RFX Laboratory test result [facility] ([facility]) RBC, Urine Auto RFX 4 /HPF 0-3 [facility] WBC, Urine Auto RFX 12 /HPF 0-3 [facility] Mucus, Urine RFX Laboratory test result [facility] ([facility]) Squam Epithelial Cell Ur Aurfx 8 /HPF 0-6 [facility] Hyaline Cast, Urine Auto RFX 0 /LPF 0-1 [facility] ([facility]) Amorphous Sediment RFX Laboratory test result [facility] ([facility]) ID Date Data Source [id number] 11/06/2019 08:38:00 AM EDT [facility] ([facility]) Name Value Range Interpretation Code Description Data Melanie rce(s) Supporting Document(s) Reflex Urine Culture Laboratory test result [facility] ([facility]) <content>FULL REPORT IN LAB NOTES (eCW [...] 1 S</content>
<content></content> ID Date Data Source [id number] 11/06/2019 08:38:00 AM EDT [facility] ([facility]) Name Value Range Interpretation Code Description Data Melanie rce(s) Supporting Document(s) Gats Culture (Neg Strep SCR) Laboratory test result [facility] FULL REPORT IN LAB NOTES ([facility] and [facility] ). NEGATIVE FOR STREP PYOGENES (GROUP A) ID Date Data Source [id number] 11/06/2019 08:38:00 AM EDT [facility] ([facility] Name Value Range Interpretation Code Description Data Melanie rce(s) Supporting Document(s) Appearance, Urine RFX Laboratory test result [facility] ([facility] Color, Urine RFX Laboratory test result [facility] ([facility]) PH,Urine RFX 8.0 units 5.0-9.0 [facility] ([facility] Protein, Urine Auto RFX Laboratory test result [facility] ([facility]) Glucose, Urine (Ua) Auto RFX Laboratory test result [facility] ([facility]) Specific Marsing Ur Auto RFX 1.003 1.002-1.035 [facility] ([facility]) Ketone, Urine Auto RFX Laboratory test result [facility] ([facility]) Nitrite, Urine Auto RFX Laboratory test result [facility] ([facility]) Urobilinogen, Urine Auto RFX 0.2 mg/dL 0.0-2.0 [facility] ([facility] Bilirubin, Urine Auto RFX Laboratory test result [facility] ([facility]) WBC, Urine Auto RFX 3 /HPF 0-3 [facility] ([facility]) Leukocyte Esterase Ur Auto RFX Laboratory test result [facility] ([facility]) Blood, Urine Blood RFX Laboratory test result [facility] ([facility]) Squam Epithelial Cell Ur Aurfx 2 /HPF 0-6 [facility] ([facility]) Bacteria, Urine Auto RFX Laboratory test result [facility] ([facility]) RBC, Urine Auto RFX 1 /HPF 0-3 [facility] ([facility]) Mucus, Urine RFX Laboratory test result [facility] ([facility]) Hyaline Cast, Urine Auto RFX 0 /LPF 0-1 M [facility]ENT ([facility]) Amorphous Sediment RFX Laboratory test result [facility] ([facility]) ID Date Data Source [id number] 10/03/2019 09:43:00 AM EDT [facility] ([facility]) Name Value Range Interpretation Code Description Data Melanie rce(s) Supporting Document(s) Appearance, Urine RFX Laboratory test result [facility] ([facility]) Color, Urine RFX Laboratory test result [facility] ([facility] Specific [place] Ur Auto RFX 1.023 1.002-1.035 [facility] ([facility]) PH,Urine RFX 6.0 units 5.0-9.0 [facility]) Protein, Urine Auto RFX Laboratory test result [facility] ([facility]) Glucose, Urine (Ua) Auto RFX Laboratory test result [facility] ([facility]) Urobilinogen, Urine Auto RFX 0.2 mg/dL 0.0-2.0 [facility] ([facility]) Ketone, Urine Auto RFX Laboratory test result [facility] ([facility]) Blood, Urine Blood RFX Laboratory test result [facility] ([facility]) Nitrite, Urine Auto RFX Laboratory test result [facility] ([facility]) Bilirubin, Urine Auto RFX Laboratory test result [facility] ([facility]) Leukocyte Esterase Ur Auto RFX Laboratory test result [facility] ([facility]) Bacteria, Urine Auto RFX Laboratory test result [facility] ([facility]) WBC, Urine Auto RFX 41 /HPF 0-3 [facility] ([facility]) RBC, Urine Auto RFX 11 /HPF 0-3 [facility] ([facility]) Squam Epithelial Cell Ur Aurfx 8 /HPF 0-6 [facility] ([facility]) Mucus, Urine RFX Laboratory test result [facility] ([facility]) Hyaline Cast, Urine Auto RFX 0 /LPF 0-1 M [facility] ([facility]) Calcium Oxalate Crystals RFX Laboratory test result [facility] ([facility]) ID Date Data Source [id number] 10/03/2019 09:43:00 AM EDT [facility] ([facility]) Name Value Range Interpretation Code Description Data Melanie rce(s) Supporting Document(s) Reflex Urine Culture Laboratory test result [facility] ([facility]) FULL REPORT IN LAB NOTES (eCW and [facility] ). SPECIMEN APPEARS CONTAMINATED ID Date Data Source [id number] 10/03/2019 08:28:00 AM EDT [facility] ([facility] Name Value Range Interpretation Code Description Data Melanie rce(s) Supporting Document(s) Laboratory test finding (navigational concept) 38.0 % 38.0-51.0 [facility] ([facility]) Laboratory test finding (navigational concept) 143 meq/L 136-145 [facility] ([facility]) Laboratory test finding (navigational concept) 81 mg/dL 70-105 [facility] ([facility]) Laboratory test finding (navigational concept) 4.1 meq/L 3.5-5.1 [facility] ([facility]) Laboratory test finding (navigational concept) 104 meq/L 98-109 [facility] ([facility]) Laboratory test finding (navigational concept) 5.0 mg/dL 4.5-5.3 [facility] ([facility]) Laboratory test finding (navigational concept) 28.0 MM/L 23.0-27.0 [facility] ([facility]) Laboratory test finding (navigational concept) 0.9 mg/dL 0.6-1.3 [facility] ([facility]) Laboratory test finding (navigational concept) 12 mg/dL 8-26 [facility] ([facility]) ID Date Data Source [id number] 10/03/2019 08:23:00 AM EDT [facility] ([facility]) Name Value Range Interpretation Code Description Data Melanie rce(s) Supporting Document(s) Red Blood Count 4.19 10 4.00-5.40 [facility] ([facility]) White Blood Count 5.5 10 4.0-10.0 [facility] ([facility]) Mean Corpuscular Volume 95.0 fl 80.0-96.0 [facility] ([facility]) Hemoglobin 12.4 g/dL 12.0-15.5 [facility] Hematocrit 39.8 % 36.0-47.0 [facility] Mean Corpuscular Hemoglobin 29.6 pg 27.0-33.0 [place] [facility] ([facility]) Platelet Count, Automated 222 10 150-450 [facility] NT ([facility]) Mean Corpuscular HGB Conc 31.2 g/dL 32.0-36.5 [facility] NT ([facility]) Red Cell Distribution Width 15.4 % 11.5-14.5 ME [facility] ([facility]) Lymph % 28.3 % 24.0-44.0 [facility]) Guadalupe % 6.0 % 0.0-5.0 [facility] Eos % 3.3 % 0.0-3.0 [facility]) Neutrophils % 61.1 % 36.0-66.0 [facility] ([facility]) Immature Granulocyte % 0.9 % 0-3.0 [facility] ([facility]) Baso % 0.4 % 0.0-1.0 [facility]) Nucleated Red Blood Cell % 0.0 % 0-0 [facility] ([facility]) Guadalupe # 0.3 10 0.0-0.8 [facility] Lymph # 1.6 10 1.5-5.0 [facility] Neutrophils # 3.3 10 1.5-8.5 [facility] ([facility]) Eos # 0.2 10 0.0-0.5 [facility]) Baso # 0.0 10 0.0-0.2 [facility] [facility] ID Date Data Source [id number] 10/03/2019 08:23:00 AM EDT [facility] ([facility]) Name Value Range Interpretation Code Description Data Melanie rce(s) Supporting Document(s) Alt/SGPT 21 U/L 12-78 [facility] Alkaline Phosphatase 66 U/L 45-117 [facility] ([facility]) Ast/Sgot 15 U/L 7-37 [facility] [facility] Bilirubin,Total 0.3 mg/dL 0.2-1.0 [facility] ([facility]) Total Protein 7.1 GM/DL 6.4-8.2 [facility] ([facility]) Bilirubin,Direct Laboratory test result 0.0-0.2 [facility] ([facility]) Albumin/Globulin Ratio 1.03 1.00-1.93 [facility] ([facility]) Albumin 3.6 GM/DL 3.2-5.2 [facility] ([facility]) ID Date Data Source [id number] 10/02/2019 02:57:00 PM EDT [facility] ([facility]) Name Value Range Interpretation Code Description Data Melanie rce(s) Supporting Document(s) Lipoprotein lipase [Enzymatic activity/volume] in Serum or P lasma 177 U/L 73-393 [facility] ([facility]) ID Date Data Source [id number] 10/02/2019 02:57:00 PM EDT [facility] ([facility]) Name Value Range Interpretation Code Description Data Melanie rce(s) Supporting Document(s) Glucose, Fasting 118 mg/dL 70-100 [facility] ([facility]) Creatinine For GFR 0.80 mg/dL 0.55-1.30 [facility] ([facility] Blood Urea Nitrogen 15 mg/dL 7-18 [facility] ([facility]) Glomerular Filtration Rate Laboratory test result [facility] ([facility]) <content>Units are mL/min/1.73 m2</content>
<content></content>
<content>Chronic Kidney Disease Staging per NKF:</content>
<content></content>
<content>Stage I & II GFR >=60 Normal to Mildly Decreased</content>
<content>Stage III GFR 30-59 Moderately Decreased</content>
<content>Stage IV GFR 15-29 Severely Decreased</content>
<content>Stage V GFR <15 Very Little GFR Left</content>
<content>ESRD GFR <15 on [employer]ICE [employer]</content>
<content></content> Sodium Level 143 meq/L 136-145 [facility] ([facility]) Chloride Level 109 meq/L 98-107 [facility] ([facility]) Potassium Serum 4.3 meq/L 3.5-5.1 [facility] ([facility]) Anion Gap 3 meq/L 8-16 [facility] ([facility]) Calcium Level 8.6 mg/dL 8.8-10.2 [facility] ([facility]) Carbon Dioxide Level 31 meq/L 21-32 [facility] ([facility]) ID Date Data Source [id number] 10/02/2019 02:57:00 PM EDT [facility] ([facility]) Name Value Range Interpretation Code Description Data Melanie rce(s) Supporting Document(s) Alkaline Phosphatase 69 U/L 45-117 [facility] Ast/Sgot 17 U/L 7-37 [facility] ([place] [facility]) Alt/SGPT 20 U/L 12-78 [facility] [facility]) Albumin 3.5 GM/DL 3.2-5.2 [facility] ([place] [facility]) Bilirubin,Total 0.2 mg/dL 0.2-1.0 [facility] ([facility]) Total Protein 7.0 GM/DL 6.4-8.2 [facility] ([facility]) Bilirubin,Direct Laboratory test result 0.0-0.2 [facility] ([facility]) Albumin/Globulin Ratio 1.00 1.00-1.93 [facility] ([facility]) ID Date Data Source [id number] 10/02/2019 02:57:00 PM EDT [facility] ([facility]) Name Value Range Interpretation Code Description Data Melanie rce(s) Supporting Document(s) Red Blood Count 4.11 10 4.00-5.40 [facility] ([facility]) Hemoglobin 12.2 g/dL 12.0-15.5 [facility] [facility] White Blood Count 7.2 10 4.0-10.0 [facility] ([facility]) Mean Corpuscular Hemoglobin 29.7 pg 27.0-33.0 [place] [facility] ([facility]) Mean Corpuscular Volume 94.6 fl 80.0-96.0 [facility] ([facility]) Mean Corpuscular HGB Conc 31.4 g/dL 32.0-36.5 MED[facility] NT ([facility]) Hematocrit 38.9 % 36.0-47.0 [facility] ([facility]) Neutrophils % 62.0 % 36.0-66.0 [facility] ([facility]) Platelet Count, Automated 215 10 150-450 [facility] NT ([facility]) Red Cell Distribution Width 15.3 % 11.5-14.5 ME [facility] ([facility]) Guadalupe % 7.9 % 0.0-5.0 [facility]) Lymph % 26.7 % 24.0-44.0 [facility]) Eos % 2.9 % 0.0-3.0 [facility]) Baso % 0.4 % 0.0-1.0 [facility]) Neutrophils # 4.5 10 1.5-8.5 [facility] ([facility]) Nucleated Red Blood Cell % 0.0 % 0-0 MED [facility] ([facility]) Immature Granulocyte % 0.1 % 0-3.0 [facility] ([facility]) Lymph # 1.9 10 1.5-5.0 [facility]) Guadalupe # 0.6 10 0.0-0.8 [facility] ([facility]) Eos # 0.2 10 0.0-0.5 [facility] ([facility]) Baso # 0.0 10 0.0-0.2 [facility] ([facility]) ID Date Data Source [id number] 09/30/2019 12:00:00 AM EDT [facility] Daisy Cheney, Rnnp Patient Name:FABIANO [id number] [facility] Date of : 1955[facility] [address] Date of Exam:09/30/2019ANDREW Malin [id number]#: [phone]: [phone] EXAM: MAMMO UNI DIAGNOSTIC INCLUD CAD [...] recommended at its regularlyscheduled annual interval.NANCY Reynoso/Prem you for referring FABIANO RAMIREZ to our office. Electronically Signed - DORIAN GASCA DO 09/30/19 16:17 Name Value Range Interpretation Code Description Data Melanie rce(s) Supporting Document(s) ID Date Data Source [id number] 09/30/2019 12:00:00 AM EDT [facility] Imaging Daisy Cheney, Figueroa Patient Name:FABIANO [id number] Date of : 1955 [address] Date of Exam:09/30/2019ANDREW Malin [id number]#: [phone]: [phone] EXAM: MAMMO UNI DIAGNOSTIC INCLUD CAD [...] recommended at its regularlyscheduled annual interval.NANCY Reynoso/Prem you for referring FABIANO RAMIREZ to our office. Electronically Signed - DORIAN GASCA DO 09/30/19 16:17 Name Value Range Interpretation Code Description Data Melanie rce(s) Supporting Document(s) ID Date Data Source [id number] 09/26/2019 09:36:00 AM EDT [facility] ([facility]) Name Value Range Interpretation Code Description Data Melanie rce(s) Supporting Document(s) Gats Culture (Neg Strep SCR) Laboratory test result [facility] ([facility]) FULL REPORT IN LAB NOTES (eCW and [facility] ). NEGATIVE FOR STREP PYOGENES (GROUP A) ID Date Data Source [id number] 09/26/2019 09:36:00 AM EDT [facility] ([facility]) Name Value Range Interpretation Code Description Data Melanie rce(s) Supporting Document(s) Influenza A Amplification Laboratory test result [facility] ([facility]) Negative results do not preclude influen za or RSV virus infection and should not be used as the sole basis for treatment or other patient management decisions. Influenza B Amplification Laboratory test result [facility] ([facility]) Negative results do not preclude influen za or RSV virus infection and should not be used as the sole basis for treatment or other patient management decisions. ID Date Data Source [id number] 09/10/2019 12:00:00 AM EST [facility] Daisy Cheney, Rnnp Patient Name:FABIANO [id number] [facility] Date of : 1955 [facility] Date of Exam:09/10/2019ANDREW Malin [id number]#: [phone]: [phone] EXAM: MAMMO SCREENING WITH CADCLINICAL INFORMATION: [...] was interpreted with the aid of an XRE-ijetmcphepcfknod-[id number] detection system. A. Negative mammogram reports should [...] medical management is currently recommended at thistime.Andrei Garsia, GUANAKITO/Prem mckeon for referring FABIANO RAMIREZ to our office.Electronically Signed - ANDREI GARSIA MD 09/10/19 15:51 Name Value Range Interpretation Code Description Data Melanie rce(s) Supporting Document(s) ID Date Data Source [id number] 08/05/2019 03:16:00 PM EST [facility] ([facility]) Name Value Range Interpretation Code Description Data Melanie rce(s) Supporting Document(s) Glucose [Mass/volume] in Serum or Plasma 104 mg/dL 74-99 [facility] ([facility]) 100-125 mg/dL PRE-DIABETES/FASTING >126 mg/dL DIABETES/FASTING Creatinine 1.1 mg/dL 0.6-1.3 [facility] Urea nitrogen [Mass/volume] in Serum or Plasma 18 mg/dL 7-18 [facility] ([facility]) Sodium [Moles/volume] in Serum or Plasma 144 meq/L 136-145 [facility] ([facility]) Chloride [Moles/volume] in Serum or Plasma 104 meq/L 98-107 [facility] ([facility]) Potassium [Moles/volume] in Serum or Plasma 4.1 meq/L 3.5-5.1 [facility] ([facility]) Calcium [Mass/volume] in Serum or Plasma 9.7 mg/dL 8.5-10.1 [facility] ([facility]) Carbon dioxide, total [Moles/volume] in Serum or Plasma 35 meq/L 21 -32 [facility] ([facility]) Alkaline phosphatase isoenzyme [Units/volume] in Serum or Pl asma 56 mg/dL 46-116 [facility] ([facility]) Alanine aminotransferase [Enzymatic activity/volume] in Seru m or Plasma 22 U/L 12-78 [facility] ([facility]) Total Bilirubin 0.3 mg/dL 0.2-1.0 [facility] ([facility]) Aspartate aminotransferase [Enzymatic activity/volume] in Serum or Plasma 12 U/L 15-37 [facility] ([facility] A/G Ratio 0.97 CALC 1.00-1.90 [facility] ([facility]) Proteinase 3 Ab [Units/volume] in Serum 7.3 g/dL 6.4-8.2 [facility] ([facility]) Albumin [Mass/volume] in Serum or Plasma 3.6 g/dL 3.4-5.0 [facility] ([facility] Glomerular filtration rate/1.73 sq M pre dicted among blacks [Volume Rate/Area] in Serum or Plasma by Creatinine-based formula (MDRD) >= 60 mL/min [facility] ([facility]) <content>CHRONIC KIDNEY DISEASE STAGING PER NKF</content>
<content></content>
<content>STAGE I & II GFR >= 60 NORMAL TO MILDLY DECREASED</content>
<content>STAGE III GFR 30-59 MODERATELY DECREASED</content>
<content>STAGE IV GFR 15-29 SEVERELY DECREASED</content>
<content>STAGE V GFR <15 VERY LITTLE GFR LEFT</content>
<content>ESRD GFR <15 ON VICE PRESIDENT [employer]INEERING</content>
<content></content> Glomerular filtration rate/1.73 sq M pre dicted among non-blacks [Volume Rate/Area] in Serum or Plasma by Creatinine-based formula (MDRD) 50 mL/min [facility] ([facility] ID Date Data Source [id number] 08/05/2019 03:16:00 PM EST [facility] ([facility]) Name Value Range Interpretation Code Description Data Melanie rce(s) Supporting Document(s) Hemoglobin [Mass/volume] in Blood 11.7 g/dL 12.0-18.0 [facility] ([facility]) Leukocytes [#/volume] in Blood by Automated count 9.0 x10*3/UL 4.1-10 .9 [facility] ([facility]) Erythrocytes [#/volume] in Blood by Automated count 3.99 x10*6/UL 4.2 0-6.30 [facility] ([facility] MCV 89.8 fL 80.0-97.0 [facility] ([facility]) Hematocrit [Volume Fraction] of Blood by Automated count 35.9 % 3 7.0-51.0 [facility] ([facility]) MCH 29.2 pg 26.0-32.0 [facility] ([facility]) MCHC 32.5 g/dL 31.0-38.0 [facility] ([facility]) Platelets [#/volume] in Blood by Automated count 208 x10*3/UL 140-440 [facility] ([facility] Erythrocyte distribution width [Ratio] by Automated count 15.3 % 11.6-13.7 [facility] ([facility]) Lymph % 34.6 % 10.0-58.5 [facility] ([facility]) Mid % 8.0 % 1.7-9.3 [facility] ([facility]) MPV 6.7 FL 7.8-11.0 [facility] ([facility]) Lymph # 3.1 x10*3/UL 0.6-4.1 [facility] ([facility]) Neut % 57.4 % 37.0-92.0 [facility] ([facility]) Neut # 5.2 x10*3/UL 2.0-7.8 [facility] ([facility]) Mid # 0.7 x10*3/UL 0.1-0.6 [facility] ([facility]) ID Date Data Source [id number] 07/23/2019 04:55:00 PM EST [facility] ([facility]) Name Value Range Interpretation Code Description Data Melanie rce(s) Supporting Document(s) Thyrotropin [Units/volume] in Serum or Plasma by Detec tion limit <= 0.05 mIU/L 0.327 uIU/ML 0.358-3.740 [facility] ([facility] ) By: Y By: Y ID Date Data Source [id number] 07/23/2019 04:55:00 PM EST [facility] ([facility] Name Value Range Interpretation Code Description Data Melanie rce(s) Supporting Document(s) Glucose, Fasting 161 mg/dL 70-100 [facility] ([facility]) Creatinine For GFR 1.00 mg/dL 0.55-1.30 [facility] ([facility]) Blood Urea Nitrogen 23 mg/dL 7-18 [facility] ([facility]) Glomerular Filtration Rate 59.6 [facility] ([facility]) <content>Units are mL/min/1.73 m2</content>
<content></content>
<content>Chronic Kidney Disease Staging per NKF:</content>
<content></content>
<content>Stage I & II GFR >=60 Normal to Mildly Decreased</content>
<content>Stage III GFR 30- 59 Moderately Decreased</content>
<content>Stage IV GFR 15-29 Severely Decreased</content>
<content>Stage V GFR <15 Very Little GFR Left</content>
<content>ESRD GFR <15 on VICE PRESIDENT [employer]INEER[employer]</content>
<content></content> Sodium Level 143 meq/L 136-145 [facility] ([facility]) Potassium Serum 3.8 meq/L 3.5-5.1 [facility] ([facility]) Chloride Level 108 meq/L 98-107 [facility] ([facility]) Calcium Level 9.1 mg/dL 8.8-10.2 [facility] ([facility]) Carbon Dioxide Level 27 meq/L 21-32 [facility] ([facility]) Anion Gap 8 meq/L 8-16 [facility] ([facility]) ID Date Data Source [id number] 07/23/2019 04:55:00 PM EST [facility] ([facility]) Name Value Range Interpretation Code Description Data Melanie rce(s) Supporting Document(s) CK-MB Value Mass 1.8 ng/mL [facility] ([facility]) CPK Creatine Phosphokinase 95 U/L 26-192 [facility] ([facility]) Troponin I < 0.02 ng/mL [facility] ([facility]) <content>Troponin I Reference Interval f or Siemens [place] LOCI:</content>
<content></content>
<content>99th Percentile= 0.00-0.045 ng/ml</content>
<content></content>
<content>Risk Stratification:</content>
<content><= 0.10 ng/ml Decreased Risk for Adverse Clinical</content>
<content>Events.</content>
<content>0.10-1.50 ng/ml Increased Risk for Adverse Clinical</content>
<content>Events. Evaluation of additional</content>
<content>criterion and/or repeat testing in 2-6</content>
<content>hours is suggested to rule out myocardial</content>
<content>damage.</content>
<content>>= 1.50 ng/ml Indicative of Myocardial Injury.</content>
<content></content> MB/CK Relative Index 1.89 [facility] ([facility]) <content>DIAGNOSIS CRITERIA</content>
<content>MMB ng/ml Relative Index (RI)</content>
<content>NON-AMI < or = 5 N/A</content>
<content>BARBOZA ZONE > 5 < or = 4</content>
<content>AMI > 5 > 4</content>
<content></content> ID Date Data Source [id number] 07/23/2019 04:55:00 PM EST [facility] ([facility]) Name Value Range Interpretation Code Description Data Melanie rce(s) Supporting Document(s) White Blood Count 5.8 10 4.0-10.0 [facility] ([facility]) Hemoglobin 11.6 g/dL 12.0-15.5 [facility] ([facility] Red Blood Count 4.00 10 4.00-5.40 [facility] ([facility]) Hematocrit 37.6 % 36.0-47.0 [facility] ([facility]) Mean Corpuscular Volume 94.0 fl 80.0-96.0 [facility] ([facility]) Mean Corpuscular Hemoglobin 29.0 pg 27.0-33.0 ME [facility] ([facility]) Mean Corpuscular HGB Conc 30.9 g/dL 32.0-36.5 MED[facility] NT ([facility]) Platelet Count, Automated 222 10 150-450 [facility] ([facility]) Neutrophils % 73.6 % 36.0-66.0 [facility] ([facility]) Red Cell Distribution Width 16.1 % 11.5-14.5 [facility] ([facility]) Eos % 2.1 % 0.0-3.0 [facility] ([facility]) Guadalupe % 4.8 % 0.0-5.0 [facility] ([facility]) Lymph % 19.0 % 24.0-44.0 [facility] ([facility]) Immature Granulocyte % 0.2 % 0-3.0 [facility] ([facility]) Nucleated Red Blood Cell % 0.0 % 0-0 [facility] ([facility]) Baso % 0.3 % 0.0-1.0 [facility] ([facility]) Guadalupe # 0.3 10 0.0-0.8 [facility] ([facility]) Lymph # 1.1 10 1.5-5.0 [facility]) Neutrophils # 4.3 10 1.5-8.5 [facility] ([facility]) Baso # 0.0 10 0.0-0.2 [facility] ([facility] [facility]) Eos # 0.1 10 0.0-0.5 [facility] ([facility]) Procedure Vital Signs ID Date Data Source [id number] Name Value Range Interpretation Code Description Data Source(s) Body mass index (BMI) [Ratio] 31.7 kg/m2 31.7 k g/m2 [facility] ([facility]) Oxygen saturation in Arterial blood by Pulse oximetry 97 % 97 % [facility] ([facility]) Body weight 157.00 [lb_av] 157.00 [lb_av] [facility] T ([facility]) Body height 59 [in_i] 59 [in_i] [facility] ([facility]) 4'11" Heart rate 102 /min 102 /min [facility] ([facility]) Diastolic blood pressure 80 mm[Hg] 80 mm[Hg] [facility] ([facility]) Systolic blood pressure 122 mm[Hg] 122 mm[Hg] [facility] ([facility]) Body mass index (BMI) [Ratio] 31.5 kg/m2 31.5 k g/m2 [facility] ([facility]) Oxygen saturation in Arterial blood by Pulse oximetry 96 % 96 % [facility] ([facility]) Body weight 156.00 [lb_av] 156.00 [lb_av] MEDEN T ([facility]) Body height 59 [in_i] 59 [in_i] [facility] ([facility]) 4'11" Heart rate 94 /min 94 /min [facility] ([facility]) Body mass index (BMI) [Ratio] 31.3 kg/m2 31.3 k g/m2 [facility] ([facility]) Oxygen saturation in Arterial blood by Pulse oximetry 96 % 96 % [facility] ([facility]) Body weight 155.00 [lb_av] 155.00 [lb_av] MED[facility] T ([facility]) Body height 59 [in_i] 59 [in_i] [facility] 4'11" Heart rate 94 /min 94 /min [facility] ([facility]) Diastolic blood pressure 72 mm[Hg] 72 mm[Hg] [facility] ([facility]) Systolic blood pressure 116 mm[Hg] 116 mm[Hg] [facility] ([facility]) Body mass index (BMI) [Ratio] 32.7 kg/m2 32.7 k g/m2 [facility] ([facility]) Body weight 162.00 [lb_av] 162.00 [lb_av] MEDEN T ([facility]) Body height 59 [in_i] 59 [in_i] [facility] ([facility]) 4'11" Body temperature 98.0 [degF] 98.0 [degF] [facility] ([facility]) Heart rate 80 /min 80 /min [facility] ([facility]) Diastolic blood pressure 80 mm[Hg] 80 mm[Hg] [facility] ([facility]) RT Arm Systolic blood pressure 136 mm[Hg] 136 mm[Hg] [facility] RT Arm Body mass index (BMI) [Ratio] 33.9 kg/m2 33.9 k g/m2 [facility] ([facility]) Body weight 168.00 [lb_av] 168.00 [lb_av] [facility] Body height 59 [in_i] 59 [in_i] [facility] ([facility]) 4'11" Heart rate 90 /min 90 /min [facility] ([facility]) Diastolic blood pressure 78 mm[Hg] 78 mm[Hg] [facility] ([facility]) Systolic blood pressure 132 mm[Hg] 132 mm[Hg] [facility]
[2020-09-16] MEDS ORDERED: PYRI1TAB5 PO (06:19)
[2020-09-16] MEDS ORDERED: NEOSPORIN OINT 0.9 GM PKT TOP ONE (06:20)
[2020-09-16] MEDS ORDERED: NEOM28.3 TP (06:20)
--- OUTSIDE RECORDS SUMMARY | 2020-09-16 06:53 | CCD ---
Author Author [facility] Organization [facility] Address Unknown Phone Unavailable Care Team Providers Care All Purpose Clerk Name Role Phone JENNY, J Daisy ANP [...] J Daisy ANP Unavailable Unavailable Lulu, Constance LICENSED GUIDE Unavailable Unavailable Lulu, Constance LICENSED GUIDE Unavailable Unavailable Lulu, Constance LICENSED GUIDE Unavailable Unavailable Lulu, Constance LICENSED GUIDE Unavailable Unavailable Lulu, Constance LICENSED GUIDE Unavailable Unavailable Lulu, Constance LICENSED GUIDE Unavailable Unavailable Lulu, Constance LICENSED GUIDE Unavailable Unavailable Lulu, Constance LICENSED GUIDE Unavailable Unavailable Lulu, Constance LICENSED GUIDE Unavailable Unavailable Lulu, Constance LICENSED GUIDE Unavailable Unavailable Lulu, Constance LICENSED GUIDE Unavailable Unavailable Lulu, Constance LICENSED GUIDE Unavailable Unavailable Lulu, Constance LICENSED GUIDE Unavailable Unavailable Lulu, Constance LICENSED GUIDE Unavailable Unavailable Lulu, Constance LICENSED GUIDE Unavailable Unavailable Lulu, Constance LICENSED GUIDE Unavailable Unavailable Lulu, Constance LICENSED GUIDE Unavailable Unavailable Lulu, Constance LICENSED GUIDE Unavailable Unavailable Lulu, Constance LICENSED GUIDE Unavailable Unavailable Lulu, Constance LICENSED GUIDE Unavailable Unavailable Lulu, Constance LICENSED GUIDE Unavailable Unavailable Lulu, Constance LICENSED GUIDE Unavailable Unavailable Lulu, Constance LICENSED GUIDE Unavailable Unavailable Lulu, Constance LICENSED GUIDE Unavailable Unavailable Lulu, Constance LICENSED GUIDE Unavailable Unavailable Lulu, Constance LICENSED GUIDE Unavailable Unavailable Lulu, Constance LICENSED GUIDE Unavailable Unavailable NON, PHYSICIAN STAFF Unavailable Unavailable [...] is protected by Article 27-F of the [facility] Public Health law. If you continue you may have access to information: Regarding HIV / AIDS; Provided by facilities licensed or operated by the [facility] Office of Mental Health; or Provided by the [facility] Office for People With Developmental Disabilities. If such information is present, then the following [facility] mandated warning applies: This information has [...] law may result in a fine or fci sentence or both. A general authorization for the release of medical or other information is NOT sufficient authorization for further disc losure. Family History Family Member Name Family Member Gender Family Member Status Date o f Status Description Data Source(s) Unknown Male Problem [facility] ([facility] () Unknown Female Problem [facility] ([facility]) Unknown Female Problem [facility] ([facility]) Unknown Female Problem [facility] ([facility]) Encounters Encounter Providers Location Date Indications Data Source(s ) Outpatient Attender: Daisy Craig 05/2021 01:40:00 PM EST [facility] ([facility] ) Emergency Attender: HENRI BOYLE MDConsultant: Daisy CHENEY 07/01/2020 06:35:00 AM EST - 07/01/2020 07:46:00 AM EST [facility] Patient discharged. Outpatient Attender: Daisy Craig 01:45:00 PM EST [facility] ([facility] ) Outpatient Attender: Daisy Craig 02:45:00 PM EDT [facility] ([facility] ) Emergency Attender: HENRI BOYLE MDConsultant: Daisy CHENEY 03/18/2020 04:56:00 AM EDT - 03/18/2020 06:29:00 AM EDT [facility] Patient discharged. Emergency Attender: KIARA SHERWOOD MDConsultant: STAFF SHARMAINE 03/02/2020 12:27:00 PM EDT - 03/02/2020 02:30:00 PM EDT [facility] Patient discharged. Outpatient Attender: Constance Craig 02:20:00 PM EDT [facility] ([facility] ) Outpatient Referrer: Daisy CHENEY 10/05/2019 [...] Referrer: Daisy CHENEY 08/11/2019 08:52:00 AM EST [facility] Radiology Imaging Outpatient Attender: Daisy CHENEY [...] ARM TWO TIMES A DAY SOLD: 07/18/2020 [facility] olanzapine 5 MG Oral Tablet [...] UP TO 8 TIMES A DAY SOLD: 09/15/2020 [facility] DIAPER,BRIEF,ADULT, DISPOSABLE 05/07/2020 12:00:00 AM [...] Olanzapine 05/01/2020 12:00:00 AM EDT completed [facility] ([facility]) 0.5 mg 05/01/2020 12:00:00 AM EDT [...] 04/04/2020 12:00:00 AM EDT active M EDENT ([facility]) 25 mg 04/04/2020 12:00:00 AM EDT [...] IN ONE NOSTRIL ONCE DAILY SOLD: 05/16/2020 [facility] 137 mcg (0.1 %) 01/27/2020 12:00:00 AM EDT aerosol,spray 30 SPRAY TWO SPRAYS IN ONE NOSTRIL ONCE DAILY SPRAY TWO SPRAYS IN ONE NOSTRIL ONCE DAILY SOLD: 01/31/2020 [facility] Azelastine HCL (Nasal) Azelastine HCL (Nasal) 01/27/2020 12:00:00 AM E DT active [facility] ([facility]) 50 mcg/actuation 01/25/2020 12:00:00 AM EDT spray,suspension 16 SPRAY TWO SPRAYS IN EACH NOSTRIL EVERY DAY SPRAY TWO SPRAYS IN EACH NOSTRIL EVERY DAY SOLD: 06/27/2020 [facility] 50 mcg/actuation 01/25/2020 12:00:00 AM EDT spray,suspension 16 SPRAY TWO SPRAYS IN EACH NOSTRIL EVERY DAY SPRAY TWO SPRAYS IN EACH NOSTRIL EVERY DAY SOLD: 01/25/2020 [facility] 100 mg 01/23/2020 12:00:00 AM EDT capsule 10 TAKE ONE CAPSULE BY MOUTH TWICE A DAY TAKE ONE CAPSULE BY MOUTH TWICE A DAY SOLD: 01/25/2020 [facility] Cyclobenzaprine hydrochloride 10 MG Oral Tablet CYCLOBENZAPR INE HCL 01/19/2020 12:00:00 AM EDT tablet 60 TAKE ONE TABLET BY MOUTH TWICE A DAY NEEDED TAKE ONE TABLET BY MOUTH TWICE A DAY NEEDED SOLD: 06/13/2020 [facility] Cyclobenzaprine hydrochloride 10 MG Oral Tablet CYCLOBENZAPR INE HCL 01/19/2020 12:00:00 AM EDT tablet 60 TAKE ONE TABLET BY MOUTH TWICE A DAY NEEDED TAKE ONE TABLET BY MOUTH TWICE A DAY NEEDED SOLD: 02/15/2020 [facility] Cyclobenzaprine hydrochloride 10 MG Oral Tablet CYCLOBENZAPR INE HCL 01/19/2020 12:00:00 AM EDT tablet 60 TAKE ONE TABLET BY MOUTH TWICE A DAY NEEDED TAKE ONE TABLET BY MOUTH TWICE A DAY NEEDED SOLD: 01/25/2020 [facility] Cyclobenzaprine hydrochloride 10 MG Oral Tablet CYCLOBENZAPR INE HCL 01/19/2020 12:00:00 AM EDT tablet 60 TAKE ONE TABLET BY MOUTH TWICE A DAY NEEDED TAKE ONE TABLET BY MOUTH TWICE A DAY NEEDED SOLD: 05/16/2020 [facility] Cyclobenzaprine hydrochloride 10 MG Oral Tablet CYCLOBENZAPR [...] BY MOUTH TWICE A DAY SOLD: 01/15/2020 [facility] 325 mg 01/04/2020 12:00:00 AM EDT tablet 180 TAKE ONE TABLET BY MOUTH EVERY 3 HOURS NEEDED MAXIMUM DAILY DOSE = SIX TABLETS TAKE ONE TABLET BY MOUTH EVERY 3 HOURS NEEDED MAXIMUM DAILY DOSE = SIX TABLETS SOLD: 04/11/2020 [facility] 325 mg 01/04/2020 12:00:00 AM EDT tablet 180 TAKE ONE TABLET BY MOUTH EVERY 3 HOURS NEEDED MAXIMUM DAILY DOSE = SIX TABLETS TAKE ONE TABLET BY MOUTH EVERY 3 HOURS NEEDED MAXIMUM DAILY DOSE = SIX TABLETS SOLD: 01/25/2020 [facility] 325 mg 01/04/2020 12:00:00 AM EDT tablet 180 TAKE ONE TABLET BY MOUTH EVERY 3 HOURS NEEDED MAXIMUM DAILY DOSE = SIX TABLETS TAKE ONE TABLET BY MOUTH EVERY 3 HOURS NEEDED MAXIMUM DAILY DOSE = SIX TABLETS SOLD: 02/29/2020 [facility] 325 mg 01/04/2020 12:00:00 AM EDT tablet 180 TAKE ONE TABLET BY MOUTH EVERY 3 HOURS NEEDED MAXIMUM DAILY DOSE = SIX TABLETS TAKE ONE TABLET BY MOUTH EVERY 3 HOURS NEEDED MAXIMUM DAILY DOSE = SIX TABLETS SOLD: 01/04/2020 [facility] 325 mg 01/04/2020 12:00:00 AM EDT tablet 180 TAKE ONE TABLET BY MOUTH EVERY 3 HOURS NEEDED MAXIMUM DAILY DOSE = SIX TABLETS TAKE ONE TABLET BY MOUTH EVERY 3 HOURS NEEDED MAXIMUM DAILY DOSE = SIX TABLETS SOLD: 05/16/2020 [facility] POLYETHYLENE GLYCOL 3350 142 MG/ML Oral Solution [Miralax] M iralax 01/04/2020 12:00:00 AM EDT active M EDENT ([facility]) Multi Vitamin 01/04/2020 12:00:00 AM EDT ORAL acti ve [facility] ([facility]) Cephalexin 500 MG Oral Capsule CEPHALEXIN [...] BY MOUTH TWICE A DAY SOLD: 11/09/2019 [facility] 100 mg 11/08/2019 12:00:00 AM EDT [...] CAPSULE BY MOUTH EVERY DAY (BENADRYL) SOLD: 06/16/2 020 [facility] 25 mg 10/12/2019 12:00:00 [...] S NEEDED FOR DIZZINESS SOLD: 04/04/2020 [facility] 0.5 mg 09/28/2019 12:00:00 AM EDT [...] S NEEDED FOR DIZZINESS SOLD: 01/04/2020 [facility] 25 mg 09/28/2019 12:00:00 AM EDT tablet 90 TAKE ONE TABLET BY MOUTH EVERY 8 HOURS NEEDED FOR DIZZINESS TAKE ONE TABLET BY MOUTH EVERY 8 HOURS A S NEEDED FOR DIZZINESS SOLD: 11/23/2019 [facility] 25 mg 09/28/2019 12:00:00 [...] 12:00:00 AM EST ORAL active [facility] 4 mg 08/31/2019 12:00:00 AM [...] MEAL AN D BEFORE BED SOLD: 08/31/2019 [facility] 25 mg 03/30/2019 12:00:00 AM EDT capsule 30 TAKE ONE CAPSULE BY MOUTH EVERY DAY (BENADRYL) TAKE ONE CAPSULE BY MOUTH EVERY DAY (BENADRYL) SOLD: [facility] 25 mg 03/30/2019 12:00:00 AM EDT capsule 30 TAKE ONE CAPSULE BY MOUTH EVERY DAY (BENADRYL) TAKE ONE CAPSULE BY MOUTH EVERY DAY (BENADRYL) SOLD: [facility] 137 mcg (0.1 %) 03/18/2019 12:00:00 AM EDT aerosol,spray 30 SPRAY TWO SPRAYS IN ONE NOSTRIL EVERY DAY SPRAY TWO SPRAYS IN ONE NOSTRIL EVERY DAY SOLD: 08/17/2019 [facility] ELECTROLYTES/DEXTROSE 03/18/2019 12:00:00 AM EDT solution [...] IN ONE NOSTRIL EVERY DAY SOLD: 07/20/2019 [facility] 25 mg 03/10/2019 12:00:00 AM EDT [...] IN EACH NOSTRIL EVERY DAY SOLD: 07/20/2019 [facility] 5 mg 07/28/2018 12:00:00 AM EST tablet 180 TAKE ONE TABLET BY MOUTH TWICE A DAY TAKE ONE TABLET BY MOUTH TWICE A DAY SOLD: 07/20/2019 [facility] Insurance Providers Payer name Policy type / Coverage type Policy ID Covered constitution party ID Covered constitution party's relationship to laura Policy Laura Plan Information EMEDNY [id number] SP [id number] MEDICARE [id number] SP [id number] MEDICARE PART A -O/P [id number] 18 [id number] MEDICAID -O/P EMERGENCY ROOM [id number] MEDICARE C [id number] S [id number] MEDICAID M [id number] MEDICARE PART A -O/P [id number] 18 [id number] MEDICARE PART A -O/P [id number] 18 [id number] MEDICAID [id number] SP [id number] MEDICAID [id number] SP [id number] Medicaid Medigap Part B [id number] Self [id number] Medicare [place] Gov[place] Medicare Primary [id number] Self [id number] [place] Medig[place] Part B [id number] Self [id number] BS [place] Medigap Part B [id number] Self [id number] Medicaid Medigap Part B [id number] Self [id number] Medicare [place] Medicare Primary [id number] Self [id number] [place] Medig[place] Part B [id number] Self [id number] Medicare - NGS Medicare Primary [id number] Self [id number] [place] Medig[place] Part B [id number] Self [id number] MEDICARE [id number] SP [id number] Medicaid Medigap Part B [id number] Self [id number] Medicare [place] Medicare Primary [id number] Self [id number] ANSI-Medicare Part B [id number] ANSI-Medicaid [id number] ANSI-Medicaid [id number] ANSI-Medicare Part B [id number] ANSI-Medicaid [id number] ANSI-Medicare Part B [id number] Medicaid [facility] Part B [id number] Self [id number] Medicare [place] Govt Servic Medicare Primary [id number] Self [id number] ANSI-Medicare Part B [id number] ANSI-Medicaid [id number] ANSI-Medicare Part B [id number] ANSI-Medicaid [id number] ANSI-Medicare Part B [id number] ANSI-Medicaid [id number] ANSI-Medicare Part B [id number] ANSI-Medicaid [id number] ANSI-Medicaid [id number] ANSI-Medicare Part B [id number] MEDICARE [id number] SP [id number] ANSI-Medicare Part B [id number] ANSI-Medicaid [id number] Medicaid Medigap Part B [id number] Self [id number] Medicare [place] Medicare Primary [id number] Self [id number] [place] Medig[place] Part B [id number] Self [id number] Medicare - NGS Medicare Primary [id number] Self [id number] ANSI-Medicaid [id number] ANSI-Medicare Part B [id number] ANSI-Medicare Part B [id number] ANSI-Medicaid [id number] MEDICARE C [id number] S [id number] Medicaid Medigap Part B [id number] Self [id number] Medicare [place] Medicare Primary [id number] Self [id number] Medicaid Medigap Part B [id number] Self [id number] Medicare [place] Medicare Primary [id number] Self [id number] Medicaid Medigap Part B [id number] Self [id number] Medicare [place] Medicare Primary [id number] Self [id number] Medicaid Medigap Part B [id number] Self [id number] Medicare [place] Medicare Primary [id number] Self [id number] [facility] C [id number] S [id number] MEDICARE [id number] SP [id number] [place] Medigap Part B Self BS [place] Trad/[place] Commercial [phone] Self [id number] Medicaid Medigap Part B 1 1 Self 1 1 Medicare [place] Primary Self BS [place] Medigap Part B Self [place] Medigap Part B [id number] Self [id number] [place]ig[place] Part B Self Medicare [facility] Medicare Primary Self BS [place] Medigap Part B Self [place] 306/806 NOT ACTIVE SP NOT ACTIVE MEDICARE [id number] SP [id number] SELF PAY UNAVAILABLE SP UNAVAILA BLE [place] 306/806 [id number] SP [id number] [place] BCBS S [id number] S [id number] [place]BS [place] PPO 302/307 [id number] SP [id number] A [id number] Problems, Conditions, and Diagnoses Code Display Name Description Problem Type Effective Dates Data Source(s) N34142 Personal history of urinary (tract) infe ctions Personal history of urinary (tract) infections Diagnosis 07/01/2020 06:35:[address] [facility] Z7902 senior living (current) use of antithromboti cs/antiplatelets senior living (current) use of antithrombotics/antiplatelets Diagnosis 020 06:35:[address] [facility] G8929 Other chronic pain Other chronic pain Diagnosis 06/2020 06:35:[address] [facility] E119 Type 2 diabetes mellitus without complic ations Type 2 diabetes mellitus without complications Diagnosis 07/01/2020 06:35:00 AM [facility] E14664 Pain in right ankle and joints of right foot Pain in right ankle and joints of right foot Diagnosis 07/01/2020 06:35:[address] [facility] N3000 Acute cystitis without hematuria Acute cystitis without hematuria Diagnosis 07/01/2020 06:35:[address] [facility] R300 Dysuria Dysuria Diagnosis 07/01/2020 06:35:00 AM [facility] T11046 Unspecified place in unspeci fied non-institutional (private) residence as the place of occurrence of the external cause Unspecified place in unspecified non-institutional (private) residence as the place of occurrence of the external cause Diagnosis 03/18/2020 04:56:00 AM [facility] [id number] Fall (on) (from) other stairs and steps, initial encounter Fall (on) (from) other stairs and steps, initial encounter Diagnosis 03/18 04:56:00 AM [facility] E81645 Type 2 diabetes mellitus with hypoglycem ia without coma Type 2 diabetes mellitus with hypoglycemia without coma Diagnosis 03/18/2020 04:56:00 AM [facility] L27328 Primary osteoarthritis, right ankle and foot Primary osteoarthritis, right ankle and foot Diagnosis 03/18/2020 04:56:00 AM EDT [facility] [id number] Unspecified injury of right ankle, initi al encounter Unspecified injury of right ankle, initial encounter Diagnosis 03/18/2020 04:56:00 AM EDT [facility] [id number] Overexertion from prolonged static or awkward postures, initial encounter Overexertion from prolonged static or aw kward postures, initial encounter Diagnosis 03/02/2020 12:27:00 PM EDT [facility] [id number] Sprain of unspecified ligament of right ankle, initial encounter Sprain of unspecified ligament of right ankle, initial encounter Diagnosis 03/02/2020 12:27:00 PM EDT [facility] Surgeries/Procedures Procedure Description Date Indications Data Source(s) Colonoscopy 04/26/2020 12:00:00 AM EDT M [facility] ([facility]) Mammogram 09/30/2019 12:00:00 AM EDT ED[facility] ([facility]) Mammogram 09/10/2019 12:00:00 AM EST ED[facility] ([facility]) Results ID Date Data Source [id number] 09/09/2020 12:43:00 AM EST [facility] ([facility]) Name Value Range Interpretation Code Description Data Melanie rce(s) Supporting Document(s) Laboratory test finding (navigational concept) 39.0 % 38.0-51.0 [facility] ([facility]) Laboratory test finding (navigational concept) 142 meq/L 136-145 [facility] ([facility]) Laboratory test finding (navigational concept) 85 mg/dL 70-105 [facility] ([facility]) Laboratory test finding (navigational concept) 4.1 meq/L 3.5-5.1 [facility] ([facility]) Laboratory test finding (navigational concept) 5.1 mg/dL 4.5-5.3 [facility] ([facility]) Laboratory test finding (navigational concept) 106 meq/L 98-109 [facility] ([facility]) Laboratory test finding (navigational concept) 18 mg/dL 8-26 [facility] ([facility]) Laboratory test finding (navigational concept) 29.0 MM/L 23.0-27.0 [facility] ([facility]) Laboratory test finding (navigational concept) 0.9 mg/dL 0.6-1.3 [facility] ([facility]) ID Date Data Source [id number] 09/09/2020 12:37:00 AM EST [facility] ([facility]) Name Value Range Interpretation Code Description Data Melanie rce(s) Supporting Document(s) Lipoprotein lipase [Enzymatic activity/volume] in Serum or P lasma 141 U/L 73-393 [facility] ([facility]) ID Date Data Source [id number] 09/09/2020 12:37:00 AM EST [facility] ([facility]) Name Value Range Interpretation Code Description Data Melanie rce(s) Supporting Document(s) Ast/Sgot 10 U/L 7-37 [facility] Alt/SGPT 16 U/L 12-78 [facility] Alkaline Phosphatase 60 U/L 45-117 [facility] ([facility]) Bilirubin,Total 0.2 mg/dL 0.2-1.0 [facility] ([facility]) Bilirubin,Direct Laboratory test result 0.0-0.2 [facility] ([facility]) Total Protein 7.2 GM/DL 6.4-8.2 [facility] ([facility]) Albumin/Globulin Ratio 0.8 1.2-2.2 [facility] ([facility]) Albumin 3.2 GM/DL 3.2-5.2 [facility] ID Date Data Source [id number] 09/09/2020 12:37:00 AM EST [facility] ([facility]) Name Value Range Interpretation Code Description Data Melanie rce(s) Supporting Document(s) Red Blood Count 4.06 10 4.00-5.40 [facility] White Blood Count 5.2 10 4.0-10.0 [facility] ([facility]) Hemoglobin 11.7 g/dL 12.0-15.5 [facility] Hematocrit 38.6 % 36.0-47.0 [facility] Mean Corpuscular Volume 95.1 fl 80.0-96.0 [facility] ([facility]) Mean Corpuscular Hemoglobin 28.8 pg 27.0-33.0 ME DENT ([facility]) Mean Corpuscular HGB Conc 30.3 g/dL 32.0-36.5 MEDE NT ([facility]) Red Cell Distribution Width 14.7 % 11.5-14.5 ME DENT ([facility]) Platelet Count, Automated 180 10 150-450 MEDE NT ([facility]) Neutrophils % 50.9 % 36.0-66.0 [facility] ([facility]) Lymph % 37.5 % 24.0-44.0 [facility] Eos % 3.3 % 0.0-3.0 [facility]) [place] % 7.9 % 2.0-8.0 [facility] Baso % 0.2 % 0.0-1.0 [facility] Immature Granulocyte % 0.2 % 0-3.0 [facility] ([facility]) Neutrophils # 2.6 10 1.5-8.5 [facility] ([facility]) Nucleated Red Blood Cell % 0.0 % 0-0 MED ENT ([facility]) Lymph # 1.9 10 1.5-5.0 [facility] [place] # 0.4 10 0.0-0.8 [facility] Eos # 0.2 10 0.0-0.5 [facility] Baso # 0.0 10 0.0-0.2 [facility] ID Date Data Source [id number] 08/12/2020 08:01:00 AM EST [facility] ([facility]) Name Value Range Interpretation Code Description Data Melanie rce(s) Supporting Document(s) Reflex Urine Culture Laboratory test result [facility] ([facility]) <content>FULL REPORT IN LAB NOTES (eCW [...] FOR ESBL</content>
<content></content> ID Date Data Source [id number] 08/12/2020 08:01:00 AM EST [facility] Name Value Range Interpretation Code Description Data Melanie rce(s) Supporting Document(s) Appearance, Urine RFX Laboratory test result [facility] Color, Urine RFX Laboratory test result [facility] PH,Urine RFX 7.0 units 5.0-9.0 [facility] Protein, Urine Auto RFX Laboratory test result [facility] Specific [place] Ur Auto RFX 1.008 1.002-1.035 [facility] Ketone, Urine Auto RFX Laboratory test result [facility] Glucose, Urine (Ua) Auto RFX Laboratory test result [facility] Nitrite, Urine Auto RFX Laboratory test result [facility] Bilirubin, Urine Auto RFX Laboratory test result [facility] Urobilinogen, Urine Auto RFX 0.2 mg/dL 0.0-2.0 [facility] Blood, Urine Blood RFX Laboratory test result [facility] ([facility]) Leukocyte Esterase Ur Auto RFX Laboratory test result [facility] ([facility]) WBC, Urine Auto RFX 9 /HPF 0-3 [facility] ([facility]) RBC, Urine Auto RFX 9 /HPF 0-3 [facility] Squam Epithelial Cell Ur Aurfx 5 /HPF 0-6 [facility] ([facility]) Mucus, Urine RFX Laboratory test result [facility] ([facility]) Bacteria, Urine Auto RFX Laboratory test result [facility] ([facility]) Hyaline Cast, Urine Auto RFX 0 /LPF 0-1 M EDENT ([facility]) Amorphous Sediment RFX Laboratory test result [facility] ([facility]) ID Date Data Source [id number] 08/12/2020 07:52:00 AM EST [facility] ([facility]) Name Value Range Interpretation Code Description Data Melanie rce(s) Supporting Document(s) Gats Culture (Neg Strep SCR) Laboratory test result [facility] ([facility]) FULL REPORT IN LAB NOTES (eCW and [facility] ). NEGATIVE FOR STREP PYOGENES (GROUP A) ID Date Data Source [id number] 08/12/2020 06:51:00 AM EST [facility] ([facility]) Name Value Range Interpretation Code Description Data Melanie rce(s) Supporting Document(s) Influenza A Amplification Laboratory test result [facility] ([facility]) Negative results do not preclude influen za or RSV virus infection and should not be used as the sole basis for treatment or other patient management decisions. RSV Amplification Laboratory test result [facility] ([facility]) Negative results do not preclude influen za or RSV virus infection and should not be used as the sole basis for treatment or other patient management decisions. Influenza B Amplification Laboratory test result [facility] ([facility]) Negative results do not preclude influen za or RSV virus infection and should not be used as the sole basis for treatment or other patient management decisions. Laboratory test finding (navigational concept) Laboratory test result [facility] ([facility]) A false negative result may occur if [...] pathogens. DISCLAIMER: Testing was performed using the mii SARS-CoV-2 test. This test was developed and its performance characteristics determined by mii. This test has not been FDA cleared [...] or revoked sooner. ID Date Data Source [id number] 08/12/2020 06:51:00 AM EST [facility] Name Value Range Interpretation Code Description Data Melanie rce(s) Supporting Document(s) SARS coronavirus 2 RNA [Presence] in Res piratory specimen by MIL[facility] with probe detection NEGATIVE [facility] This lab was ordered by [facility] a nd reported by [facility]. ID Date Data Source [id number] 07/22/2020 04:54:00 AM EST [facility] ([facility]) Name Value Range Interpretation Code Description Data Melanie rce(s) Supporting Document(s) Reflex Urine Culture Laboratory test result [facility] ([facility]) <content>FULL REPORT IN LAB NOTES (eCW [...] 1 S</content>
<content></content> ID Date Data Source [id number] 07/22/2020 04:54:00 AM EST [facility] ([facility] Name Value Range Interpretation Code Description Data Melanie rce(s) Supporting Document(s) Appearance, Urine RFX Laboratory test result [facility]) PH,Urine RFX 7.0 units 5.0-9.0 [facility] Color, Urine RFX Laboratory test result [facility] ([facility]) Specific [place] Ur Auto RFX 1.005 1.002-1.035 [facility] Protein, Urine Auto RFX Laboratory test result [facility] Glucose, Urine (Ua) Auto RFX Laboratory test result [facility]) Ketone, Urine Auto RFX Laboratory test result [facility] ([facility]) Urobilinogen, Urine Auto RFX 0.2 mg/dL 0.0-2.0 [facility] ([facility]) Bilirubin, Urine Auto RFX Laboratory test result [facility] ([facility]) Nitrite, Urine Auto RFX Laboratory test result [facility]) Leukocyte Esterase Ur Auto RFX Laboratory test result [facility]) Blood, Urine Blood RFX Laboratory test result [facility]) WBC, Urine Auto RFX 11 /HPF 0-3 [facility] ([facility]) Bacteria, Urine Auto RFX Laboratory test result [facility] ([facility]) RBC, Urine Auto RFX 1 /HPF 0-3 [facility] Squam Epithelial Cell Ur Aurfx 0 /HPF 0-6 [facility]) Mucus, Urine RFX Laboratory test result [facility] Hyaline Cast, Urine Auto RFX 0 /LPF 0-1 M [facility] ([facility]) ID Date Data Source [id number] 07/01/2020 06:35:[address] [facility] 1 OrderSheet [facility] Emergency Department [address] [place] [address] Phone #: ext- [phone] 07/01/2020 06:35 Patient: FABIANO RAMIREZ Sex: F : 1955 Age: 64yWEIGHT:76.2 kg (M)ALLERGIES: Darvacet, Demerol, MicrodentinCHIEF COMPLAINT: dysuriaDIAGNOSIS: Urinary tract infectious diseaseLAB ORDERSOrder Description Priority Entered Acknowledged InitialedUrinalysis (Clean STAT 06:47 07/01/2020 06:54 Tamia Hemphill) Tamia Clements RFreyaNFreya R.N.; Per protocol; Henri Boyle PhysicianCulture, Urine STAT 07:31 07/01/2020 07:35 Antionette(Urine, Clean Xavier Keenan) Physician;DIAGNOSTIC STUDY ORDERSOrder Description Priority Entered Acknowledged InitialedMEDICATION/IV/DRIP/FLUID ORDERSOrder Description Priority Entered Acknowledged InitialedGENERAL ORDERSOrder Description Priority Entered Acknowledged InitialedSplint (Aircast) R 06:49 07/01/2020 06:50 Tamia Clements RN; Starr RFreyaNFreya Verbal order per; Xavier Robertson Physician[Electronically signed by Liset Adan (07:46 07/01/2020)][Electronically signed by Xavier Robertson Physician (08:41 07/01/2020)][Electronically locked by Liset Adan (07:46 07/01/2020)] Name Value Range Interpretation Code Description Data Melanie rce(s) Supporting Document(s) ID Date Data Source [id number] 07/01/2020 06:35:[address] [facility] 1 Medication Reconciliation Report [facility] Emergency Department [address] [place] [address] Phone #: ext- [phone] 07/01/2020 06:35 Patient: [...] the Emergency Department: 2 Medication Reconciliation Report [facility] Emergency Department [address] [place] [address] Phone #: ext- [phone] 07/01/2020 06:35 Patient: FABIANO RAMIREZ Sex: F : 1955 Age: 64yNone.The following Medications were prescribed to the patient:ciprofloxacin 250 mg tablet Take 1 tablet twice a day for 7 days -- Dispense 14 tablet. Refills: 0.Substitution permitted.Pharmacy - [id number] - [address] ; [place] [address]. . -- Xavier Robertson Physician Name Value Range Interpretation Code Description Data [facility](s) Supporting Document(s) ID Date Data Source [id number] 07/01/2020 06:35:00 AM [place] [address] Medication Administration Record [facility] Emergency Department [address] [place] [address] Phone #: ext- [phone] 07/01/2020 06:35 Patient: FABIANO RAMIREZ Sex: F : 1955 Age: 64yWeight: 76.2 kgHeight/Length: 59 inBMI: 34ALLERGIES: Darvacet, Demerol, MicrodentinDate/Time Medication Administered Medication Ordered Name Value Range Interpretation Code Description Data [facility](s) Supporting Document(s) ID Date Data Source [id number] 07/01/2020 06:35:[address] [facility] 1 General Instructions [facility] Emergency Department [address] [place] [address] Phone #: ext- [phone] 07/01/2020 06:35 Patient: FABIANO RAMIREZ Sex: F [...] Dispense 14 tablet. Refills: 0.Substitution permitted.Pharmacy - [id number] - [address] ; [place] [address]. .Follow-up:Follow up with your healthcare provider in four days. Call for an appointment.Understanding of the discharge instructions v erbalized by patient. ADDITIONAL INFORMATION 2 General Instructions [facility] Emergency Department [address] [place] [address] Phone #: ext- [phone] 07/01/2020 06:35 Patient: FABIANO RAMIREZ Sex: F [...] or burning when urinating 3 General Instructions [facility] Emergency Department [address] [place] [address] Phone #: ext- [phone] 07/01/2020 06:35 Patient: [...] Constipation Having sex 4 General In structions [facility] Emergency Department [address] [place] [address] Phone #: ext- [phone] 07/01/2020 06:35 Patient: [...] flush out your bladder. 5 General Instructions [facility] Emergency Department [address] [place] [address] Phone #: [phone] lmp- [phone] 07/01/2020 06:35 Patient: FABIANO RAMIREZ Sex: F [...] swelling in the outer vaginal area (labia) [id number] [employer]. [address] [place] [address]. All rights reserved. This information is not intended as asubstitute for professional medical care. Always follow your healthcare professional's instructions. You have been given the following additional information: Bladder Infection, Female (Adult) 6 General Instructions [facility] Emergency Department [address] [place] [address] Phone #: ext- [phone] 07/01/2020 06:35 Patient: FABIANO RAMIREZ Sex: F : 1955 Age: 64y(Electronically signed by Xavier Robertson, Physician 07/01/2020 08:41) Name Value Range Interpretation Code Description Data Melanie rce(s) Supporting Document(s) ID Date Data Source [id number] 07/01/2020 06:35:00 AM EST [facility] 1 Clinical Report - Nurses [facility] Emergency Department [address] [place] [address] Phone #: ext- [phone] 07/01/2020 06:35 Patient: FABIANO RAMIREZ Sex: F : 1955 Age: 64yTRIAGEArrived by EMS. Historian: patient.Triage time: 06:35 07/01/2020. Acuity: LEVEL 4.Chief Complaint: PAINFUL URINATION.Onset. (2 days). 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 [...] Clements R.N.PROBLEMS: 2 Clinical Report - Nurses [facility] Emergency Department [address] [place] [address] Phone #: ext- [phone] 07/01/2020 06:35 Patient: FABIANO RAMIREZ Sex: F : 1955 Age: 64y Diabetes Mellitus Type 2. Contusion. Arthritis. Ankle Injury. Cervical Strain. Spinal Tumor. Sprain. UTI - Urinary Tract Infection. Hypoglycemia. Incontinence. Lower Extremity Pain. --06:48 07/01/20 Tamia Celments R.N. ADDITIONAL SURGERIES: Appendectomy. Hernia Repair. Spinal [...] denies family medical history. --07:23 07/01/20 Xavier Robertson Physician.PHYSICAL ASSESSMENTTo room via [facility].GENERAL / NEURO / PSYCH: Alert. Oriented X 4. Appears anxious.HEENT: Mucous membranes are pink.RESPIRATORY: Respirations not labored.CVS: Capillary refill less than 2 seconds.GI / : No emesis noted. Pain with urination. She has had frequency of urination. Urgency ofurination. Patient is incontinent of urine. 3 Clinical Report - Nurses [facility] Emergency Department [address] [place] [address] Phone #: ext- [phone] 07/01/2020 06:35 Patient: [...] rce(s) Supporting Document(s) ID Date Data Source [id number] 07/01/2020 06:35:[address] [facility] 1 Clinical Report - Physicians/Mid Levels [facility] Emergency Department [address] [place] [address] Phone #: ext- [phone] 07/01/2020 06:35 Patient: [...] Appendectomy. 2 Clinical Report - Physicians/Mid Levels [facility] Emergency Department [address] [place] [address] Phone #: ext- [phone] 07/01/2020 06:35 Patient: [...] Normal skin turgor. 3 Clinical Report - Physicians/[facility] Emergency Department [address] [place] [address] Phone #: ext- [phone] 07/01/2020 06:35 Patient: [...] pain.INSTRUCTIONS 4 Clinical Report - Physicians/Mid Levels [facility] Emergency Department [address] [place] [address] Phone #: ext- [phone] 07/01/2020 06:35 Patient: FABIANO RAMIREZ Sex: F [...] tablet. Refills: 0. Substitution permitted. Pharmacy - [facility] - [address] ; [place] [address]. . Follow-up: Follow up with your healthcare provider in four days. Call for an appointment. Understanding of the discharge instructions verbalized by patient.(Electronically signed by Xavier Robertson, Physician 07/01/2020 08:41) Name Value Range Interpretation Code Description Data [facility] rce(s) Supporting Document(s) ID Date Data Source [id number] 07/01/2020 06:50:00 AM EST [facility] ([facility]) Name Value Range Interpretation Code Description Data Melanie rce(s) Supporting Document(s) Source Laboratory test result [facility] ([facility]) SOURCE: Clean Catch Urinalysis Laboratory test result [facility] ([facility]) SOURCE: Clean Catch Color Laboratory test result [facility] ([facility]) SOURCE: Clean Catch Clarity Laboratory test result [facility] ([facility]) SOURCE: Clean Catch Glucose Laboratory test result [facility] ([facility]) SOURCE: Clean Catch pH 7 5-9 [facility]) SOURCE: Clean Catch Spec [place] 1.010 1.001-1.030 [facility] ([facility]) SOURCE: Clean Catch Ketone Laboratory test result [facility] ([facility]) SOURCE: Clean Catch Bilirubin Laboratory test result [facility] ([facility]) SOURCE: Clean Catch Protein Laboratory test result [facility] ([facility]) SOURCE: Clean Catch Nitrite Laboratory test result [facility] ([facility]) SOURCE: Clean Catch Leuk Est 500 Abnormal (applies to non-numeric res ults) [facility] ([facility]) SOURCE: Clean Catch Blood 150 Abnormal (applies to non-numeric res ults) [facility]) SOURCE: Clean Catch Urobilinogen Laboratory test result [facility] ([facility]) SOURCE: Clean Catch WBC Laboratory test result Abnormal (applies to non -numeric results) [facility] ([facility]) SOURCE: Clean Catch Microscopic Laboratory test result [facility] T ([facility]) SOURCE: Clean Catch Epithelial Laboratory test result Abnormal (applies to non -numeric results) [facility] ([facility]) SOURCE: Clean Catch RBC Laboratory test result Abnormal (applies to non -numeric results) [facility] ([facility]) SOURCE: Clean Catch Bacteria Laboratory test result Abnormal (applies to non -numeric results) [facility] ([facility]) SOURCE: Clean Catch ID Date Data Source [id number] 07/01/2020 06:50:00 AM EST [facility] ([facility] Name Value Range Interpretation Code Description Data Melanie rce(s) Supporting Document(s) Culture Urine Laboratory test result [facility] ([facility]) SOURCE: Clean Catch ID Date Data Source [id number] 07/05/2020 12:01:[address] [facility] Name Value Range Interpretation Code Description Data Melanie rce(s) Supporting Document(s) CULTURE URINE [facility] _CULTURE URINE_$$[id number]$$[id number]$$[id number]$$437998$$963969$$902348$$448872$$070236$$366409$$ 609823$$682326$$175429$$441930$$380762$$481641$$778586$$552641$$918865$$113273$$ 121730$$090539$$419160$$812069$$444026$$953053$$469539$$[id number] -- Continued on next page --Patient: CANDIDO MARIO Order: [id number] Page 2Culture: CULTURE URINE Status: Final ==== -- Continued on next page --Patient: CANDIDO MARIO Order: [id number] Page 2Culture: CULTURE URINE Status: Prelim ===== -- Continued on next page --Patient: CANDIDO MARIO Order: [id number] Page 2Culture: CULTURE URINE Status: Prelim =====$$[id number]$$[id number] DATE/TIME: 07/05/2020 11:06Culture: CULTURE URINE Status: FinalIsolate [...] presence of possible pathogensis in progress.Urine Culture,Comprehensive: I7Peemdpcusie coli Flag: APatient: CANDIDO MARIO Order: [id number] Page 3Culture: CULTURE URINE Status: Final ====ISOLATE [...] S S . . . . . .17276-9Kkhceblpir S S . . . . . .267-5Imipenem S S . . . . . .279- 0Levofloxacin S S . . . . . .60466-1Sqekqyhck S S . . . . . .6652-2Nitrofurantoin S S . . . . . .363-2Piperacillin/Tazobactam S S . . . . . .412-7Tetracycline S S . . . . . .496-0Tobramycin S S . . . . . .508-2Trimethoprim/Sulfa S S . . . . . .516-5P1 Test performed by: [facility] CenterIA #: [id number] [address] [facility] [id number] [facility] [id number] Director : Ross Jeffers MD NPI #:Head Doffer : 07/03/20.1551.XMT.SENT REF 07/04/20.1209.XMT.SENT REF 07/05/20.1201.XMT.SENT REF ID Date Data Source [id number] 07/01/2020 07:08:00 AM EST [facility] Name Value Range Interpretation Code Description Data Melanie rce(s) Supporting Document(s) [facility] COL[facility] yellow NORMAL: Yellow [facility] CLARITY clear NORMAL: Clear [facility] Specific gravity of Urine by Test strip 1.010 1.001 - 1.030 [facility] pH 7 5 - 9 [facility] Glucose [Mass/volume] in Urine by Test strip NORM NORMAL: Negat [facility] Bilirubin.total [Presence] in Urine by Test strip NEG NORMAL: Negative [facility] Ketones [Presence] in Urine by Test strip NEG NORMAL: Negative [facility] Protein [Mass/volume] in Urine by Test strip NEG NORMAL: Negat [facility] Nitrite [Presence] in Urine by Test strip POS NORMAL: Negative [facility] BLOOD 150 NORMAL: Negative [facility] Leukocyte esterase [Presence] in Urine by Test strip 500 KANE L: Negative [facility] Urobilinogen [Mass/volume] in Urine by Test strip NOR less deanna n 1.0 mg/dL [facility] MICROSCOPIC See Below [facility] ital WBC 5 - 7 NORMAL: NONE SEEN A [facility] Erythrocytes [#/volume] in Urine by Test strip 7 - 10 NORMAL: NON E SEEN A [facility] EPITHELIAL MODERATE NORMAL: NONE SEEN A [facility] Bacteria [Presence] in Urine sediment by Light microscopy 3+ LARGE NORMAL: NONE SEEN A [facility] ID Date Data Source [id number] 06/08/2020 02:10:00 PM EST [facility] ([facility]) Name Value Range Interpretation Code Description Data Melanie rce(s) Supporting Document(s) Erythrocytes [#/volume] in Blood by Automated count 4.16 x10*6/UL 4.2 0-6.30 [facility] ([facility]) Leukocytes [#/volume] in Blood by Automated count 5.4 x10*3/UL 4.1-10 .9 [facility] ([facility]) Hemoglobin [Mass/volume] in Blood 12.5 g/dL 12.0-18.0 [facility] ([facility]) Hematocrit [Volume Fraction] of Blood by Automated count 37.8 % 3 7.0-51.0 [facility] ([facility]) MCHC 33.0 g/dL 31.0-38.0 [facility] MCH 30.1 pg 26.0-32.0 [facility] MCV 91.0 fL 80.0-97.0 [facility] Platelets [#/volume] in Blood by Automated count 219 x10*3/UL 140-440 [facility] ([facility]) Erythrocyte distribution width [Ratio] by Automated count 14.4 % 11.6-13.7 [facility] ([facility]) MPV 6.9 FL 7.8-11.0 [facility] Mid % 6.5 % 1.7-9.3 [facility] Lymph % 27.9 % 10.0-58.5 [facility] Neut % 65.6 % 37.0-92.0 [facility] Lymph # 1.5 x10*3/UL 0.6-4.1 [facility] ([facility]) Neut # 3.5 x10*3/UL 2.0-7.8 [facility] ([facility]) Mid # 0.4 x10*3/UL 0.1-0.6 [facility] ([facility]) ID Date Data Source [id number] 05/04/2020 01:59:00 PM EDT [facility] ([facility]) Name Value Range Interpretation Code Description Data Melanie rce(s) Supporting Document(s) Triglyceride [Mass/volume] in Serum or Plasma 186 mg/dL 30-150 [facility] ([facility]) Cholesterol in HDL [Mass/volume] in Serum or Plasma 55 mg/dL 35-60 [facility] ([facility]) Cholesterol [Mass/volume] in Serum or Plasma 180 mg/dL 131-200 [facility] ([facility]) Cholesterol in LDL [Mass/volume] in Serum or Plasma by calcu lation 88 CALC 50-159 [facility] ([facility]) ID Date Data Source [id number] 05/04/2020 01:59:00 PM EDT [facility]) Name Value Range Interpretation Code Description Data Melanie rce(s) Supporting Document(s) Creatinine 1.0 mg/dL 0.6-1.3 [facility] ([facility]) Glucose [Mass/volume] in Serum or Plasma 86 mg/dL 74-99 [facility] ([facility]) 100-125 mg/dL PRE-DIABETES/FASTING >126 mg/dL DIABETES/FASTING Urea nitrogen [Mass/volume] in Serum or Plasma 14 mg/dL 7-18 [facility] ([facility]) Sodium [Moles/volume] in Serum or Plasma 144 meq/L 136-145 [facility] ([facility]) Potassium [Moles/volume] in Serum or Plasma 4.0 meq/L 3.5-5.1 [facility] ([facility]) Chloride [Moles/volume] in Serum or Plasma 105 meq/L 98-107 [facility] ([facility]) Carbon dioxide, total [Moles/volume] in Serum or Plasma 36 meq/L 21 -32 [facility] ([facility]) Total Bilirubin 0.2 mg/dL 0.2-1.0 [facility] ([facility]) Calcium [Mass/volume] in Serum or Plasma 9.9 mg/dL 8.5-10.1 [facility] ([facility]) Alkaline phosphatase isoenzyme [Units/volume] in Serum or Pl asma 55 mg/dL 46-116 [facility] ([facility]) Aspartate aminotransferase [Enzymatic activity/volume] in Serum or Plasma 23 U/L 15-37 [facility] Alanine aminotransferase [Enzymatic activity/volume] in Seru m or Plasma 26 U/L 12-78 [facility]) Albumin [Mass/volume] in Serum or Plasma 3.7 g/dL 3.4-5.0 [facility] ([facility]) A/G Ratio 0.93 CALC 1.00-1.90 [facility] Proteinase 3 Ab [Units/volume] in Serum 7.7 g/dL 6.4-8.2 [facility] ([facility]) Glomerular filtration rate/1.73 sq M pre dicted among blacks [Volume Rate/Area] in Serum or Plasma by Creatinine-based formula (MDRD) Laboratory test result [facility] ([facility]) <content>CHRONIC KIDNEY DISEASE STAGING PER NKF</content>
<content></content>
<content>STAGE I & II GFR >= 60 NORMAL TO MILDLY DECREASED</content>
<content>STAGE III GFR 30-59 MODERATELY DECREASED</content>
<content>STAGE IV GFR 15-29 SEVERELY DECREASED</content>
<content>STAGE V GFR <15 VERY LITTLE GFR LEFT</content>
<content>ESRD GFR <15 ON DEVELOPMENT ANALYST</content>
<content></content> Glomerular filtration rate/1.73 sq M pre dicted among non-blacks [Volume Rate/Area] in Serum or Plasma by Creatinine-based formula (MDRD) 56 mL/min [facility] ID Date Data Source [id number] 05/04/2020 01:59:00 PM EDT [facility] Name Value Range Interpretation Code Description Data Melanie rce(s) Supporting Document(s) Leukocytes [#/volume] in Blood by Automated count 5.8 x10*3/UL 4.1-10 .9 [facility] ([facility]) Hemoglobin [Mass/volume] in Blood 12.1 g/dL 12.0-18.0 [facility] Hematocrit [Volume Fraction] of Blood by Automated count 37.2 % 3 7.0-51.0 [facility] ([facility]) Erythrocytes [#/volume] in Blood by Automated count 4.06 x10*6/UL 4.2 0-6.30 [facility] ([facility]) MCV 91.6 fL 80.0-97.0 [facility] MCH 29.8 pg 26.0-32.0 [facility] MCHC 32.6 g/dL 31.0-38.0 [facility] ([facility]) Erythrocyte distribution width [Ratio] by Automated count 14.4 % 11.6-13.7 [facility] Platelets [#/volume] in Blood by Automated count 240 x10*3/UL 140-440 [facility]) MPV 7.1 FL 7.8-11.0 [facility] Lymph % 26.4 % 10.0-58.5 [facility] Mid % 7.1 % 1.7-9.3 [facility] [facility] Neut % 66.5 % 37.0-92.0 [facility] ([facility]) Mid # 0.5 x10*3/UL 0.1-0.6 [facility] ([facility]) Lymph # 1.5 x10*3/UL 0.6-4.1 [facility] ([facility]) Neut # 3.8 x10*3/UL 2.0-7.8 [facility] ([facility]) ID Date Data Source [id number] 04/23/2020 01:44:00 PM EDT [facility] ([facility]) Name Value Range Interpretation Code Description Data Melanie rce(s) Supporting Document(s) Lactate [Mass/volume] in Serum or Plasma 1.3 mmol/L 0.4-2.0 [facility] ([facility]) Y/N query for Sepsis Lactate Rule: Y ID Date Data Source [id number] 04/01/2020 06:10:00 AM EDT [facility] ([facility]) Name Value Range Interpretation Code Description Data Melaine rce(s) Supporting Document(s) Appearance, Urine RFX Laboratory test result [facility] Color, Urine RFX Laboratory test result [facility]) PH,Urine RFX 8.0 units 5.0-9.0 [facility] Protein, Urine Auto RFX Laboratory test result [facility]) Specific [place] Ur Auto RFX 1.006 1.002-1.035 [facility]) Ketone, Urine Auto RFX Laboratory test result [facility]) Glucose, Urine (Ua) Auto RFX Laboratory test result [facility]) Bilirubin, Urine Auto RFX Laboratory test result [facility]) Urobilinogen, Urine Auto RFX 0.2 mg/dL 0.0-2.0 [facility]) Leukocyte Esterase Ur Auto RFX Laboratory test result [facility]) Nitrite, Urine Auto RFX Laboratory test result [facility]) Blood, Urine Blood RFX Laboratory test result [facility]) WBC, Urine Auto RFX 1 /HPF 0-3 [facility] Bacteria, Urine Auto RFX Laboratory test result [facility]) RBC, Urine Auto RFX 2 /HPF 0-3 [facility]) Squam Epithelial Cell Ur Aurfx 1 /HPF 0-6 [facility]) Hyaline Cast, Urine Auto RFX 0 /LPF 0-1 M [facility] ([facility]) Amorphous Sediment RFX Laboratory test result [facility] ([facility]) ID Date Data Source [id number] 03/21/2020 08:47:00 [place] [address] PHONE: [phone] FAX: [phone] Name .................. : CANDIDO MARIO Acct Number.................. : [id number] ROOM. ................. : TR-06 MR Number ................... : [id number] Stay type ............. : E/R Discharge Date......... ... : 03/18/20 Admit Date ......... : 03/18/20 Admit Phys .................... : VENERUS BR Date of ....... : 1955 Family Phys ................... : JENNY NAN Phone .................. : [phone] Age ................................ : 64 Film# .................. .:[id number] Sex ................................. : F Unsigned transcriptions are preliminary reports and do not represent a medical or legal document FOOT COMPLETE-[address] [place] [id number] COMPLETE:03/18/20 05:31 KJE 10014 Reason(s): Pain RIGHT FOOT X-RAY: HISTORY: Pain. [...] rce(s) Supporting Document(s) ID Date Data Source [id number] 03/21/2020 08:47:00 AM EDT [facility] [address] [place] [address] PHONE: [phone] FAX: [phone] Name .................. : CANDIDO MARIO Acct Number.................. : [id number] ROOM. ................. : TR-06 MR Number ................... : [id number] Stay type ............. : E/R Discharge Date......... ... : 03/18/20 Admit Date ......... : 03/18/20 Admit Phys .................... : VENERUS BR Date of ....... : 1955 Family Phys ................... : JENNY Roomster Phone .................. : [phone] Age ................................ : 64 Film# .................. .:[id number] Sex ................................. : F Unsigned transcriptions are preliminary reports and do not represent a medical or legal document [place]KLE COMPLETE [place] [id number] COMPLETE:03/18/20 05:31 KJE [id number] Reas on(s): Trauma/Injury RIGHT ANKLE X-RAY: 3-VIEWS [...] rce(s) Supporting Document(s) ID Date Data Source [id number] 03/18/2020 04:56:00 AM EDT [facility] 1 OrderSheet [facility] Emergency Department [address] [place] [address] Phone #: ext- [phone] 03/18/2020 04:56 Patient: [...] Acknowledged InitialedOrthopedic Shoe (R 05:43 03/18/2020 06:04 Pjfoot) Henri Inman R.N. Physician;[Electronically signed by Storm Oliva R.N. (:03/18/2020)] 2 OrderSheet [facility] Emergency Department [address] [place] [address] Phone #: ext- [phone] 03/18/2020 04:56 Patient: FABIANO RAMIREZ Sex: F : 1955 Age: 64y[Electronically signed by Henri Boyle Physician (07:31 03/19/2020)][Electronically locked by Storm Oliva R.N. (03/18/2020)] Name Value Range Interpretation Code Description Data Melanie rce(s) Supporting Document(s) ID Date Data Source [id number] 03/18/2020 04:56:00 AM EDT [facility] 1 Medication Reconciliation Report [facility] Emergency Department [address] [place] [address] Phone #: ext- [phone] 03/18/2020 04:56 Patient: [...] the Emergency Department: 2 Medication Reconciliation Report [facility] Emergency Department [address] [place] [address] Phone #: ext- [phone] 03/18/2020 04:56 Patient: FABIANO RAMIREZ Sex: F : 1955 Age: 64yNone.The following Medications were prescribed to the patient:None. Name Value Range Interpretation Code Description Data Melanie rce(s) Supporting Document(s) ID Date Data Source [id number] 03/18/2020 04:56:00 AM EDT [facility] 1 Medication Administration Record [facility] Emergency Department [address] [place] [address] Phone #: ext- [phone] 03/18/2020 04:56 Patient: FABIANO RAMIREZ Sex: F : 1955 Age: 64yWeight: 73.0 kgHeight/Length: 59 inBMI: 32.5ALLERGIES: Darvacet, Demerol, MicrodentinDate/Time Medication Administered Medication Ordered Name Value Range Interpretation Code Description Data Melanie rce(s) Supporting Document(s) ID Date Data Source [id number] 03/18/2020 04:56:00 AM EDT [facility] 1 General Instructions [facility] Emergency Department [address] [place] [address] Phone #: ext- [phone] 03/18/2020 04:56 Patient: [...] minimize impact from footfalls.).Follow-up:Follow up with a bilingual account manager as needed. Call for the next available [...] minutes at a time. 2 General Instructions [facility] Emergency Department [address] [place] [address] Phone #: ext- [phone] 03/18/2020 04:56 Patient: [...] joint or bear weight on the joint [phone] [employer]. [address] [place] [address] 12[address]. All rights reserved. This information is not intended as asubstitute for professional medical care. Always follow your healthcare professional's instructions.Arthralgia 3 General Instructions [facility] Emergency Department [address] [place] [address] Phone #: ext- [phone] 03/18/2020 04:56 Patient: [...] provider or as advised. 4 General Instructions [facility] Emergency Department [address] [place] [address] Phone #: ext- [phone] 03/18/2020 04:56 Patient: FAIBANO RAMIREZ Sex: F : 1955 Age: 64yWhen [...] or as directed by your healthcare provider [phone] [employer]. [address] [place] [address]. All rights reserved. This information is not [...] bladder (cystitis), or the 5 General Instructions [facility] Emergency Department [address] [place] [address] Phone #: ext- [phone] 03/18/2020 04:56 Patient: FABIANO RAMIREZ Sex: F [...] usually happens because of: 6 General Instructions [facility] Emergency Department [address] [place] [address] Phone #: ext- [phone] 03/18/2020 04:56 Patient: [...] to back after using 7 General Instructions [facility] Emergency Department [address] [place] [address] Phone #: ext- [phone] 03/18/2020 04:56 Patient: [...] if the results will affect your treatment.Call [phone] if any of the following occur: Trouble [...] to keep medicine down 8 General Instructions [facility] Emergency Department [address] [place] [address] Phone #: ext- [phone] 03/18/2020 04:56 Patient: FABIANO RAMIREZ Sex: F : 1955 Age: 64y Weakness or dizziness Vaginal discharge Pain, redness, or swelling in the outer vaginal area (labia) 5212-6998 [employer]. [address] [place] [address]. All rights reserved. This information is not [...] function and reduce pain. 9 General Instructions [facility] Emergency Department [address] [place] [address] Phone #: ext- [phone] 03/18/2020 04:56 Patient: [...] joint or bear weight on the joint [phone] [employer] [address] [place] [address]. All rights reserved. This information is not [...] rce(s) Supporting Document(s) ID Date Data Source [id number] 03/18/2020 04:56:00 AM EDT [facility] 1 Clinical Report - Nurses [facility] Emergency Department [address] [place] [address] Phone #: ext- [phone] 03/18/2020 04:56 Patient: FABIANO RAMIREZ Sex: F [...] notification of patient arrival was received.EMS Treatment WIND TURBINE BLADE REPAIR TECHNICIAN:See EMS report.SEPSIS SCREEN: SIRS Screen negative. Sepsis Screen negative. No suspected or confirmed signs ofinfection present.ARRON COMA SCORE: 15- eyes open- spo ntaneous (4); best verbal response- oriented (5); bestmotor response- obeys commands (6). --05:10 03/18/20 Storm Oliva R.N.05:04 03/18/20. BP: 164/82. MAP: 109. HR: 90. RR: 16. O2 saturation: 98%. Temp: 98.2 F. Pain levelnow: 10. --06:25 03/18/20 Storm Oliva R.N.Weight: 73 kg [...] Oliva R.N. 2 Clinical Report - Nurses [facility] Emergency Department [address] [place] [address] Phone #: ext- [phone] 03/18/2020 04:56 [id number] Sex: F : 1955 Age: 64yAllergiesDarvacet.Demerol.Microdentin. --05:02 [...] weakness and 3 Clinical Report - Nurses [facility] Emergency Department [address] [place] [address] Phone #: ext- [phone] 03/18/2020 04:56 Patient: [...] plan. Patient does not have advanced directive. --05:10 03/18/20 Storm Oliva R.N.PHYSICAL WEGYDRRWVC81:05 03/18/20. To room via stretcher.GENERAL / NEURO / [...] verbalized understanding. Written instructions p rovided in Niuean. The patient was discharged by the physician. She was discharged home. She left ambulatory and via taxi. Patient driving. ( pt to the waiting room to wait for cab). Patient has no belongings. --06:08 03/18/20 Sotrm Oliva R.N. 06:07 03/18/20. BP: 155/85. MAP: 108. HR: 92. RR: 20. O2 saturation: 98%. Temp: 97.8 F. Pain level now: 08/30. --06:08 03/18/20 Storm Oliva R.N. Departure time: 06:23 03/18/2020. --06:23 03/18/20 Storm Oliva R.N. 4 Clinical Report - Nurses [facility] Emergency Department [address] [place] [address] Phone #: ext [phone] 03/18/2020 04:56 Patient: FABIANO RAMIREZ Sex: F : 1955 Age: 64yLocked/Released at 03/18/2020 06:29 by Storm Oliva R.N. Name Value Range Interpretation Code Description Data Melanie rce(s) Supporting Document(s) ID Date Data Source [id number] 03/18/2020 04:56:00 AM EDT [facility] 1 Clinical Report - Physicians/Mid Levels [facility] Emergency Department [address] [place] [address] Phone #: ext [phone] 03/18/2020 04:56 Patient: FABIANO RAMIREZ Sex: [...] injury 2 Clinical Report - Physicians/Mid Levels [facility] Emergency Department [address] [place] [address] Phone #: ext- [phone] 03/18/2020 04:56 Patient: [...] process. Uric Acid: (OLE: 03/18/2020 05:40) ( [facility] 03/18/2020 06:10) Final results Test Result Flag Units (Reference) URIC ACID 6.4 MG/DL (2.5 - 8.5) Sed. Rate: (OLE: 03/18/2020 05:40) ( MsgRcvd 03/18/2020 06:05) Final results Test Result Flag Units (Reference) SED RATE 46 H mm/hr (0 - 30) SED RATE REENTER 46 CRP: (OLE: 03/18/2020 05:40) ( MsgRcvd 03/18/2020 06:10) Final results Test Result Flag [...] Oxygen?(No) Room: ED [place] [address] PHONE: [phone] FAX: [phone] Name .................. : ABRANJOHANNGavin FABIANO Acct Number.................. : [id number] ROOM. ................. : TR-06 Number ................... : [id number] Stay type ............. : E/R Discharge Date......... ... : 03/18/20 Admit Date ......... : 03/18/20 Admit Phys .................... : TAMAR BHAKTA Date of ....... : 1955 Family Phys ................... : JENNY GARCIA Phone .................. : [phone] Age ................................ : 64 Film# .................. .:[id number] Sex ................................. : F Unsigned transcriptions are preliminary reports and do not represent a medical or legal document ANKLE COMPLETE RT [id number] COMPLETE:03/18/20 05:31 KJE [id number] Reason(s): Trauma/Injury 3 Clinical Report - Physicians/Mid Levels [facility] Emergency Department [address] [place] [address] Phone #: ext- [phone] 03/18/2020 04:56 Patient: [...] Exam FOOT COMPLETE-3 [place] [address] PHONE: [phone] FAX: [phone] Name .............. .... : CANDIDO MARIO Acct Number.................. : [id number] ROOM. ................. : [address] Number ................... : [id number] Stay type ............. : E/R Discharge Date......... ... : 03/18/20 Admit Date ......... : 03/18/20 Admit Phys .................... : TAMAR BHAKTA Date of ....... : 1955 Family Phys ................... : JENNY NAN Phone .................. : [phone] Age ................................ : 64 Film# .................. .:[id number] Sex ................................. : F Unsigned transcriptions are preliminary reports and do not represent a medical or legal document [place]TE-[address] [place] [id number] COMPLETE:03/18/20 05:31 KJE 53905 Reason(s): Pain Trauma/Injury 4 Clinical Report - Physicians/Mid Levels [facility] Emergency Department [address] [place] [address] Phone #: ext- [phone] 03/18/2020 04:56 Patient: FABIANO RAMIREZ Sex: F [...] spur. Osteoarthritic changes.).PROGRESS AND PROCEDURESCourse of Care: 05:36 Mar 18 2020. Patient is stable. 05:36 Mar 18 2020. No evidence of any acute bony injury to R foot or ankle. She does have some arthritic and osteopenic changes. I recommend cushioned footwear with gel or foam inserts for more shock absorption. Pt. has P. aeruginosa UTI from cx done at [facility] ED visit 2 weeks ago. She is [...] obstruction. 5 Clinical Report - Physicians/Mid Levels [facility] Emergency Department [address] [place] [address] Phone #: ext- [phone] 03/18/2020 04:56 Patient: FABIANO RAMIREZ [facility]#: [id number] Sex: F : 1955 Age: 64 yINSTRUCTIONS Apply ice. Elevate affected areas above chest level. Wear fracture shoe as needed. You may walk and bear weight as tolerated. (Motrin / Tylenol for pain. Follow-up with primary MD for further treatment of UTI / arthritis. Need to use very cushioned footwear and gel inserts to minimize impact from footfalls.). Follow-up: Follow up with a bilingual account manager as needed. Call for the next available appointment. Reason for referral: evaluation, treatment and R foot / ankle pain. Understanding of the discharge instructions verbalized by patient.(Electronically signed by Henri Boyle, Physician 03/19/2020 07:31) Name Value Range Interpretation Code Description Data Melanie rce(s) Supporting Document(s) ID Date Data Source [id number] 03/18/2020 05:40:00 AM EDT [facility] ([facility]) Name Value Range Interpretation Code Description Data Melanie rce(s) Supporting Document(s) Urate [Mass/volume] in Serum or Plasma 6.4 mg/dL 2.5-8.5 [facility] ([facility]) C reactive protein [Mass/volume] in Serum or Plasma by High sensitivity method 6.67 mg/L 1.00-3.00 [facility] ([facility] ) <content>CDC/S HS-CRP CUT-OFF: RELATIVE RISK:</content>
<content><1.0 mg/L Low</content>
<content>1.0 - 3.0 mg/L Average</laron nt>
<content>>3.0 mg/L High</content>
<content>Optimally, the average of HS-CRP results repeated</content>
<content>two weeks apart should be used for risk assessment.</content>
<content></content> ID Date Data Source [id number] 03/18/2020 05:40:00 AM EDT [facility] ([facility]) Name Value Range Interpretation Code Description Data Melanie rce(s) Supporting Document(s) Sed Rate 46 mm/hr 0-30 [facility]) Sed Rate Reenter 46 [facility] ([facility]) ID Date Data Source [id number] 03/18/2020 06:10:00 AM EDT [facility] Name Value Range Interpretation Code Description Data Melanie rce(s) Supporting Document(s) C reactive protein [Mass/volume] in Serum or Plasma by High sensitivity method 6.67 MG/L 1.00 - 3.00 H [facility] CDC/S HS-CRP CUT-OFF: RELATIVE RISK: <1.0 mg/L Low 1.0 - 3.0 mg/L Average >3.0 mg/L High Optimally, the average of HS-CRP results repeated two weeks apart should be used for risk assessment. ID Date Data Source [id number] 03/18/2020 06:10:00 AM EDT [facility] Name Value Range Interpretation Code Description Data Melanie rce(s) Supporting Document(s) Urate [Mass/volume] in Serum or Plasma 6.4 MG/DL 2.5 - 8.5 [facility] ID Date Data Source [id number] 03/18/2020 06:05:00 AM EDT [facility] Name Value Range Interpretation Code Description Data Melanie rce(s) Supporting Document(s) Erythrocyte sedimentation rate by Westergren method 46 mm/hr 0 - 30 H [facility] SED RATE REENTER 46 [facility] ID Date Data Source [id number] 03/02/2020 12:27:00 PM EDT [facility] 1 OrderSheet [facility] Emergency Department [address] [place] [address] Phone #: ext- [phone] 03/02/2020 12:19 Patient: FABIANO RAMIREZ Sex: F : 1955 Age: 64yWEIGHT:73.4 kg HEIGHT:59 inches BMI:32.7ALLERGIES: Marielena Kristina, Kathleen COMPLAINT: Rt, ankleDIAGNOSIS: Sprain of joint, Urinary [...] rce(s) Supporting Document(s) ID Date Data Source [id number] 03/02/2020 12:27:00 PM EDT [facility] 1 Medication Reconciliation Report [facility] Emergency Department [address] [place] [address] Phone #: ext- [phone] 03/02/2020 12:19 Patient: FABIAON RAMIREZ Sex: F : 1955 Age: 64yWeight: [...] the Emergency Department: 2 Medication Reconciliation Report [facility] Emergency Department [address] [place] [address] Phone #: ext- [phone] 03/02/2020 12:19 Patient: FABIANO RAMIREZ Sex: F : 1955 Age: 64yNone.The following Medications were prescribed to the patient:Cipro 500 mg tablet Take 1 tablet twice a day -- Dispense 10 tablet. Refills: 0. Substitution permitted.Pharmacy - [facility] - [address] ; [place] [address]. .Bactrim 400 mg-80 mg tablet Take 1 tablet twice a day -- Dispense 10 tablet. Refills: 0. Substitutionpermitted.Pharmacy - [facility] - [address] ; [place] [address]. . -- EMRE Puga Name Value Range Interpretation Code Description Data Melanie rce(s) Supporting Document(s) ID Date Data Source [id number] 03/02/2020 12:27:00 PM EDT [facility] 1 Medication Administration Record [facility] Emergency Department [address] [place] [address] Phone #: ext- [phone] 03/02/2020 12:19 Patient: FABIANO RAMIREZ Sex: F : 1955 Age: 64yWeight: 73.4 kgHeight/Length: 59 inBMI: 32.7ALLERGIES: Microdentin, Darvacet, DemerolDate/Time Medication Administered Medication Ordered Name Value Range Interpretation Code Description Data Melanie rce(s) Supporting Document(s) ID Date Data Source [id number] 03/02/2020 12:27:00 PM EDT [facility] 1 General Instructions [facility] Emergency Department [address] [place] [address] Phone #: ext- [phone] 03/02/2020 12:19 Patient: [...] -- Dispense 10 tablet. Refills: 0. Substitution permitted.[facility] - [address] [place] [address]. Phone: .Bactrim 400 mg-80 mg tablet Take 1 tablet twice a day -- Dispense 10 tablet. Refills: 0. Substitutionpermitted.[facility] - [address] [place] [address]. Phone: [phone] 2 General Instructions [facility] Emergency Department [address] [place] [address] Phone #: ext- [phone] 03/02/2020 12:19 Patient: FABIANO RAMIREZ Sex: F : 1955 Age: 40y140- [phone] .Understanding of the discharge instructions verbalized by [...] several months to recover. 3 General Instructions [facility] Emergency Department [address] [place] [address] Phone #: ext- [phone] 03/02/2020 12:19 Patient: FABIANO RAMIREZ Sex: F [...] thin towel or cloth. You may use [id number]-wwn-swqmuop pain medicine (NSAIDS or nonsteroidal anti-inflammatory drugs) [...] helpful in preventing long-term 4 General Instructions [facility] Emergency Department [address] [place] [address] Phone #: ext- [phone] 03/02/2020 12:19 Patient: FABIANO RAMIREZ Sex: F [...] You re-injure your ankle 5 General Instructions [facility] Emergency Department [address] [place] [address] Phone #: ext- [phone] 03/02/2020 12:19 ------- Patient: FABIANO RAMIREZ Sex: F : 1955 Age: 64y [phone] [employer]. [address] [place] [address]. All rights reserved. This information is not [...] more often than usual 6 General Instructions [facility] Emergency Department [address] [place] [address] Phone #: ext- [phone] 03/02/2020 12:19 Patient: [...] a diaphragm for control 7 General Instructions [facility] Emergency Department [address] [place] [address] Phone #: ext- [phone] 03/02/2020 12:19 Patient: [...] treatment. This is especially 8 General Instructions [facility] Emergency Department [address] [place] [address] Phone #: ext- [phone] 03/02/2020 12:19 Patient: FABIANO RAMIREZ Sex: F : 1955 Age: 64yimportant if you have repeat infections.If a culture was done, you will be told if your treatment needs to be changed. If directed, you cancall to find out the results.If X-rays were done, you will be told if the results will affect your treatment.Call [phone] if any of the following occur: [...] swelling in the outer vaginal area (labia) 9690-2822 [employer]. [address] [place] [address]. All rights reserved. This information is not intended as asubstitute for professional medical care. Always follow your healthcare professional's instructions. You have been given the following additional information: Ankle Sprain (Adult) Bladder Infection, Female (Adult) 9 General Instructions [facility] Emergency Department [address] [place] [address] Phone #: ext- [phone] 03/02/2020 12:19 Patient: FABIANO RAMIREZ Sex: F : 1955 Age: 64y(Electronically signed by EMRE Puga 03/02/2020 22:55) Name Value Range Interpretation Code Description Data Melanie rce(s) Supporting Document(s) ID Date Data Source [id number] 03/02/2020 12:27:00 PM EDT [facility] 1 Clinical Report - Nurses [facility] Emergency Department [address] [place] [address] Phone #: cyw- [phone] 03/02/2020 12:19 Patient: FABIANO RAMIREZ Sex: F : 1955 Age: 64yTRIAGEArrived by EMS. Historian: patient. ( per pt she rolled ankle this am. pt put herself in a soft cast andwalking boot.).Triage time: 12:03/02/2020. Acuity: LEVEL 4.Chief Complaint: RIGHT LOWER EXTREMITY PAIN.Alert.This started just prior to arrival.Treatment WIND TURBINE BLADE REPAIR TECHNICIAN:None. --12:03/02/20 Kelly Mahmood R.N.12:03/02/20. BP: 150/84. HR: 97. RR: 16. O2 saturation: 95%. Temp: 99.0 F. Pain level now 10/10.--12:03/02/20 Kelly Mahmood R.N.Weight: 73.4 kg. Height/Length: 59 inches. BMI: 32.7. --12:20 03/02/20 Kelly Mahmood R.N.MedicationsPromethazine HCl Oral (Tablet 25 [...] Mahmood R.N.AllergiesDemerol. --12:03/02/20 Kelly Mahmood R.N.Darvacet. --12:03/02/20 eKlly Mahmood R.N.Microdentin. --12:03/02/20 Kelly Mahmood R.N.HistoryPAST MEDICAL HX: Tetanus status: up-to-date. Immunizations: up-to-date.SOCIAL HX: Never smoker. No alcohol use or drug use. The patient was offered HIV testing but 2 Clinical Report - Nurses [facility] Emergency Department [address] [place] [address] Phone #: ext- [phone] 03/02/2020 12:19 Patient: FABIANO RAMIREZ Sex: F [...] suspicion of abuse. No report of abuse. --12:03/02/20 Kelly Mahmood R.N. FALL RISK ASSESSMENT: Fall [...] treatment room. --12:28 03/02/20 Kelly Mahmood R.N.PHYSICAL [id number] 03/02/20. Ambulatory to room.GENERAL / NEURO / [...] labeled in the presence of the patient ([id number]). Two patient identifiers checked. Call light placed in reach. Side rails up x 2. Bed placed in lowest position. Brakes of bed on. Patient ready for evaluation- PA notified. --12:45 03/02/20 Ac Wang RN 12:52 03/02/20. Patient transported to radiology by wheelchair with senior environmental technician. ([id number]). --12:57 03/02/20 Ac Wang RN 13:01 03/02/20. BP: 93/42. MAP: 59. HR: 91. RR: 24. O2 saturation: 100%. --13:01 03/02/20 Mastic cadet deck, [facility] ER Tech1 3 Clinical Report - Nurses [facility] Emergency Department [address] [place] [address] Phone #: ext- [phone] 03/02/2020 12:19 Patient: FABIANO RAMIREZ Sex: F : 1955 Age: 64y Patient returned from radiology by wheelchair with senior environmental technician. ([id number]). --13: 08 03/02/20 Ac Wang RN ( 1330 pt moved to hallway 3 to open rm 7 for ambulance). --13:58 03/02/20 Ac Wang RN ( 1345 pt fitted with new air cast and cast shoe). --16:00 03/02/20 Ac Wang RN.DISPOSITION / DISCHARGE 14:08 03/02/20. BP: 124/76. MAP: 92. HR: 75. RR: 16. O2 saturation: 99%. Temp: 98.1 F. --14:08 03/02/20 Mastic cadet deck, Kelly, ER Tech1 Departure time: 14:30 03/02/2020. --15:35 03/02/20 Concha Kohli RN Departure time: 14:30 03/02/2020. Condition at departure: unchanged. No learning barriers present. Discharge instructions provided and reviewed with the patient. Reviewed medication(s) side effects, precautions, dosing and course information. Prescription(s) sent electronically to pharmacy. Reviewed splint care instructions. Reviewed referrals. Provided to follow-up provider. Patient verbalized understanding. Written instructions provided in Niuean. The patient was discharged by the physician food service assistant. She was discharged home. She left in a wheelchair and via taxi. --15:57 03/02/20 Ac Wang RN 14:30 03/02/20. Pain level now: 08/30. --15:58 03/02/20 Ac Wang RN.Locked/Released at 03/02/2020 16:00 by Ac Wang RN Name Value Range Interpretation Code Description Data Melanie rce(s) Supporting Document(s) ID Date Data Source [id number] 03/02/2020 12:27:00 PM EDT [facility] 1 Clinical Report - Physicians/Mid Levels [facility] Emergency Department [address] [place] [address] Phone #: ext- [phone] 03/02/2020 12:19 Patient: [...] needed.Allergies:Darvacet.Demerol. 2 Clinical Report - Physicians/Mid Levels [facility] Emergency Department [address] [place] [address] Phone #: ext- [phone] 03/02/2020 12:19 Patient: [...] and ankle exam otherwise negative. Extremities otherwise negative.[place] ANKLE RULES: The need for X-rays is [...] 1.030 3 Clinical Report - Physicians/Mid Levels [facility] Emergency Department [address] [place] [address] Phone #: ext- [phone] 03/02/2020 12:19 --- Patient: FABIANO RAMIREZ Sex: [...] Ankle Complete Right: (OLE: 03/02/2020 12:49) ( [facility] 03/02/2020 15:57) In Progress ANKLE COMPLETE RT Reason(s): rolled ankle this AM now c/o lateral ankle pain TRANSPORTATION: S IV? O2? Oxygen?(No) Room: ED Foot Complete Right: (OLE: 03/02/2020 12:49) ( [facility] 03/02/2020 15:57) In Progress FOOT COMPLETE-3 OR [...] (chronic). 4 Clinical Report - Physicians/Mid Levels [facility] Emergency Department [address] [place] [address] Phone #: ext- [phone] 03/02/2020 12:19 Patient: FABIANO RAMIREZ Sex: F [...] Dispense 10 tablet. Refills: 0. Substitution permitted. Pharmacy - [id number] - [address] ; [place] [address]. . Bactrim 400 mg-80 mg tablet Take 1 tablet twice a day -- Dispense 10 tablet. Refills: 0. Substitution permitted. Pharmacy - [id number] - [id number] ; [place] [address]. . Understanding of the discharge instructions verbalized by patient. 5 Clinical Report - Physicians/Mid Levels [facility] Emergency Department [address] [place] [address] Phone #: ext- [phone] 03/02/2020 12:19 Patient: FABIANO RAMIREZ Sex: F : 1955 Age: 64y(Electronically signed by EMRE Puga 03/02/2020 22:55) Name Value Range Interpretation Code Description Data Melanie rce(s) Supporting Document(s) ID Date Data Source [id number] 03/02/2020 12:27:00 PM EDT [facility] Addenda for FABIANO RAMIREZ VisitID: [id number] Date: 11:50Pt urine grew pseudomonas aeruginosea; Pt was d/c on Cipro 500mg PO BID, and Bactrim PO [id number]; Cipro is resistent and bactrim not tested. [...] rce(s) Supporting Document(s) ID Date Data Source [id number] 03/06/2020 09:28:00 AM EDT [facility] [address] [place] [address] PHONE: [phone] FAX: [phone] Name .................. : CANDIDO MARIO Acct Number.................. : [id number] ROOM. ................. : TR-07 Number ................... : [id number] Stay type ............. : E/R Discharge Date......... ... : 03/02/20 Admit Date ......... : 03/02/20 Admit Phys .................... : PRESLEY Cox Date of ....... : 1955 Family Phys ................... : NON STAFF Phone .................. : [phone] Age ................................ : 64 Film# .................. .:[id number] Sex ................................. : F Unsigned transcriptions are preliminary reports and do not represent a medical or legal document [place] [id number] COMPLETE:03/02/20 15:57 MICHAEL [id number] Reason(s): rolled ankle this AM now c/o [...] By Jasen Bolton MD , 03/06/20 09:28, [facility] Transcribe Initials: DZ , Transcribe Date: 03/03/20 06:07, Dictation Date: Copy for: MAYE CHANG via fax Copy for: EMERGENCY DEPT via modem Copy for: 710 MED REC DISCHARGED Page 1 of 1 Name Value Range Interpretation Code Description Data Melanie rce(s) Supporting Document(s) ID Date Data Source [id number] 03/06/2020 09:28:00 [place] [address] PHONE: [phone] FAX: [phone] Name .................. : CANDIDO MARIO Acct Number.................. : [id number] ROOM. ................. : TR-07 Number ................... : [id number] Stay type ............. : E/R Discharge Date......... ... : 03/02/20 Admit Date ......... : 03/02/20 Admit Phys .................... : PRESLEY Cox Date of ....... : 1955 Family Phys ................... : NON STAFF Phone .................. : [phone] Age ................................ : 64 Film# .................. .:[id number] Sex ................................. : F Unsigned transcriptions are preliminary reports and do not represent a medical or legal document [place]OT COMPLETE-[address] [place] [id number] COMPLETE:03/02/20 15:57 MICHAEL [id number] Reason(s): lateral foot pain after rolling ankle this AM RIGHT FOOT X-RAY: HISTORY: Trauma. FINDINGS: There is prominent inferior calcaneal spurring. A bony density adjacent to the dorsal aspects of the talonavicular joint suggests an old fracture. No acute fractures are seen. The articular surfaces are intact. IMPRESSION: Inferior calcaneal spurring. Electronically Reviewed and Signed By Jasen Bolton MD , 03/06/20 09:28, [facility] Transcribe Initials: DZ , Transcribe Date: 03/03/20 06:06, Dictation Date: Copy for: MAYE CHANG via fax Copy for: EMERGENCY DEPT via modem Copy for: 710 MED REC DISCHARGED Page 1 of 1 Name Value Range Interpretation Code Description Data Melanie rce(s) Supporting Document(s) ID Date Data Source [id number] 03/05/2020 03:48:00 PM EDT [facility] Name Value Range Interpretation Code Description Data [facility] rce(s) Supporting Document(s) CULTURE URINE [facility] spital _CULTURE URINE_$$[id number]$$775652$$404000$$396480$$242275$$546362$$075049$$530031$$881015$$ 082508$$907019$$366559$$740032$$643101$$555559$$062788$$927111$$800992$$744807$$ 173006$$629006$$249013$$435741$$449010$$093894$$820687$$166535 -- Continued on next page --Patient: CANDIDO MARIO Order: [id number] Page 2Culture: CULTURE URINE Status: Final ==== -- Continued on next page --Patient: CANDIDO MARIO Order: [id number] Page 2Culture: CULTURE URINE Status: Prelim =====$$[id number]$$[id number] DATE/TIME: 03/05/2020 15:05Culture: CULTURE URINE Status: FinalIsolate 1 Pseudomonas aeruginosa Flag: A . . . . . . .5Greater than 100,000 colony forming units per mL Previous result entered on 03/04/2020 05:39 ET Gram negative rodsUrine Culture,Comprehensive: [id number] aeruginosa Flag: APatient: CANDIDO OCHOARA Order: [id number] Page 3Culture: CULTURE URINE Status: Final ====ISOLATE [...] R R . . . . . .87203- 8Meropenem S S . . . . . .6652-2Piperacillin S S . . . . . .408-5Ticarcillin S S . . . . . .500-9Tobramycin S S . . . . . .508-2P1 Test performed by: 3 Four 5 Group [facility] #: [id number] [address] [place] [id number] [facility] [id number] Director : Ross Jeffers MD NPI #:Head Doffer : 03/05/20.1453.XMT.SENT REF 03/05/20.1548.XMT.SENT REF ID Date Data Source [id number] 03/02/2020 01:08:00 PM EDT [facility] Name Value Range Interpretation Code Description Data Melanie rce(s) Supporting Document(s) URINALYSIS [facility] alberto URINALYSIS SOURCE Clean Catch [facility] ital COLOR yellow NORMAL: Yellow [facility] CLARITY clear NORMAL: Clear [facility] spital Specific gravity of Urine by Test strip 1.010 1.001 - 1.030 [facility] 7 5 - [facility] Gl[facility] [Mass/volume] in Urine by Test strip NORM NORMAL: Negat gabe [facility] Bilirubin.total [Presence] in Urine by Test strip NEG NORMAL: Negative [facility] Ketones [Presence] in Urine by Test strip NEG NORMAL: Negative [facility] Protein [Mass/volume] in Urine by Test strip NEG NORMAL: Negat gabe [facility] Nitrite [Presence] in Urine by Test strip POS NORMAL: Negative [facility] BLOOD 10 NORMAL: Negative [facility] Leukocyte esterase [Presence] in Urine by Test strip 500 KANE L: Negative [facility] Urobilinogen [Mass/volume] in Urine by Test strip NOR less deanna n 1.0 mg/dL [facility] MICROSCOPIC See Below [facility] ital WBC 40 - 50 NORMAL: NONE SEEN A [facility] Erythrocytes [#/volume] in Urine by Test strip 1 - 3 NORMAL: NON E SEEN [facility] EPITHELIAL MANY NORMAL: NONE SEEN A [facility] Bacteria [Presence] in Urine sediment by Light microscopy 2+ MOD NORMAL: NONE SEEN A [facility] ID Date Data Source [id number] 01/23/2020 09:17:00 AM EDT [facility] ([facility]) Name Value Range Interpretation Code Description Data Melanie rce(s) Supporting Document(s) Bedside Glucose 115 mg/dL 80-115 [facility] ([facility]) ID Date Data Source [id number] 01/23/2020 08:56:00 AM EDT [facility] ([facility]) Name Value Range Interpretation Code Description Data Melanie rce(s) Supporting Document(s) Reflex Urine Culture Laboratory test result [facility] ([facility]) <content>FULL REPORT IN LAB NOTES (eCW [...] 4 S</content>
<content></content> ID Date Data Source [id number] 01/23/2020 08:56:00 AM EDT [facility] Name Value Range Interpretation Code Description Data Melanie rce(s) Supporting Document(s) Appearance, Urine RFX Laboratory test result [facility]) Specific [facility] Ur Auto RFX 1.006 1.002-1.035 [facility]) PH,Urine RFX 8.0 units 5.0-9.0 [facility] ([facility]) Color, Urine RFX Laboratory test result [facility] ([facility]) Protein, Urine Auto RFX Laboratory test result [facility]) Ketone, Urine Auto RFX Laboratory test result [facility] ([facility]) Glucose, Urine (Ua) Auto RFX Laboratory test result [facility] ([facility]) Urobilinogen, Urine Auto RFX 2.0 mg/dL 0.0-2.0 [facility] ([facility]) Nitrite, Urine Auto RFX Laboratory test result [facility]) Bilirubin, Urine Auto RFX Laboratory test result [facility] ([facility]) Leukocyte Esterase Ur Auto RFX Laboratory test result [facility]) WBC, Urine Auto RFX 16 /HPF 0-3 [facility] ([facility]) Blood, Urine Blood RFX Laboratory test result [facility]) RBC, Urine Auto RFX 7 /HPF 0-3 [facility]) Squam Epithelial Cell Ur Aurfx 1 /HPF 0-6 [facility]) Bacteria, Urine Auto RFX Laboratory test result [facility]) Hyaline Cast, Urine Auto RFX 0 /LPF 0-1 M [facility] ([facility]) Amorphous Sediment RFX Laboratory test result [facility]) ID Date Data Source [id number] 01/01/2020 08:31:00 AM EDT [facility]) Name Value Range Interpretation Code Description Data Melanie rce(s) Supporting Document(s) Reflex Urine Culture Laboratory test result [facility] ([facility]) <content>FULL REPORT IN LAB NOTES (eCW a [...] 1 S</content>
<content></content> ID Date Data Source [id number] 01/01/2020 08:31:00 AM EDT [facility]) Name Value Range Interpretation Code Description Data Melanie rce(s) Supporting Document(s) PH,Urine RFX 7.0 units 5.0-9.0 [facility] ([facility]) Color, Urine RFX Laboratory test result [facility] ([facility]) Appearance, Urine RFX Laboratory test result [facility]) Specific [place] Ur Auto RFX 1.016 1.002-1.035 [facility] ([facility]) Glucose, Urine (Ua) Auto RFX Laboratory test result [facility] ([facility]) Protein, Urine Auto RFX Laboratory test result [facility]) Urobilinogen, Urine Auto RFX 0.2 mg/dL 0.0-2.0 [facility] ([facility]) Bilirubin, Urine Auto RFX Laboratory test result [facility]) Ketone, Urine Auto RFX Laboratory test result [facility]) Nitrite, Urine Auto RFX Laboratory test result [facility]) WBC, Urine Auto RFX 5 /HPF 0-3 [facility] ([facility]) Blood, Urine Blood RFX Laboratory test result [facility] ([facility]) Leukocyte Esterase Ur Auto RFX Laboratory test result [facility]) RBC, Urine Auto RFX 1 /HPF 0-3 [facility] ([facility]) Bacteria, Urine Auto RFX Laboratory test result [facility]) Mucus, Urine RFX Laboratory test result [facility]) Squam Epithelial Cell Ur Aurfx 3 /HPF 0-6 [facility]) Hyaline Cast, Urine Auto RFX 0 /LPF 0-1 M [facility] ([facility]) ID Date Data Source [id number] 12/26/2019 05:47:00 AM EDT [facility] ([facility]) Name Value Range Interpretation Code Description Data Melanie rce(s) Supporting Document(s) Reflex Urine Culture Laboratory test result [facility] ([facility]) <content>FULL REPORT IN LAB NOTES (eCW a [...] 1 S</content>
<content></content> ID Date Data Source [id number] 12/26/2019 05:47:00 AM EDT [facility] Name Value Range Interpretation Code Description Data Melanie rce(s) Supporting Document(s) Appearance, Urine RFX Laboratory test result [facility]) Specific [place] Ur Auto RFX 1.015 1.002-1.035 [facility]) PH,Urine RFX 7.0 units 5.0-9.0 [facility] ([facility]) Color, Urine RFX Laboratory test result [facility]) Protein, Urine Auto RFX Laboratory test result [facility]) Glucose, Urine (Ua) Auto RFX Laboratory test result [facility] ([facility]) Ketone, Urine Auto RFX Laboratory test result [facility] ([facility]) Nitrite, Urine Auto RFX Laboratory test result [facility] ([facility]) Urobilinogen, Urine Auto RFX 0.2 mg/dL 0.0-2.0 [facility] ([facility]) Bilirubin, Urine Auto RFX Laboratory test result [facility] ([facility]) Leukocyte Esterase Ur Auto RFX Laboratory test result [facility] ([facility]) WBC, Urine Auto RFX 6 /HPF 0-3 [facility] ([facility]) Blood, Urine Blood RFX Laboratory test result [facility] ([facility]) RBC, Urine Auto RFX 13 /HPF 0-3 [facility] ([facility]) Mucus, Urine RFX Laboratory test result [facility] ([facility]) Hyaline Cast, Urine Auto RFX 0 /LPF 0-1 M [facility] ([facility]) Squam Epithelial Cell Ur Aurfx 3 /HPF 0-6 [facility] ([facility]) Bacteria, Urine Auto RFX Laboratory test result [facility] ([facility]) Amorphous Sediment RFX Laboratory test result [facility] ([facility]) ID Date Data Source [id number] 11/27/2019 07:23:00 AM EDT [facility] ([facility]) Name Value Range Interpretation Code Description Data Melanie rce(s) Supporting Document(s) Reflex Urine Culture Laboratory test result [facility] FULL REPORT IN LAB NOTES ([facility] and [facility] ). SPECIMEN APPEARS CONTAMINATED ID Date Data Source [id number] 11/27/2019 07:23:00 AM EDT [facility] ([facility]) Name Value Range Interpretation Code Description Data Melanie rce(s) Supporting Document(s) Appearance, Urine RFX Laboratory test result [facility] ([facility]) Color, Urine RFX Laboratory test result [facility] ([facility]) PH,Urine RFX 7.0 units 5.0-9.0 [facility] ([facility]) Glucose, Urine (Ua) Auto RFX Laboratory test result [facility] ([facility]) Protein, Urine Auto RFX Laboratory test result [facility] ([facility]) Specific [place] Ur Auto RFX 1.006 1.002-1.035 [facility]) Urobilinogen, Urine Auto RFX 0.2 mg/dL 0.0-2.0 [facility]) Bilirubin, Urine Auto RFX Laboratory test result [facility] ([facility]) Ketone, Urine Auto RFX Laboratory test result [facility] ([facility]) Blood, Urine Blood RFX Laboratory test result [facility] ([facility]) Leukocyte Esterase Ur Auto RFX Laboratory test result [facility] ([facility]) Nitrite, Urine Auto RFX Laboratory test result [facility] ([facility]) Bacteria, Urine Auto RFX Laboratory test result [facility] ([facility]) RBC, Urine Auto RFX 4 /HPF 0-3 [facility]) WBC, Urine Auto RFX 12 /HPF 0-3 [facility]) Mucus, Urine RFX Laboratory test result [facility] ([facility]) Squam Epithelial Cell Ur Aurfx 8 /HPF 0-6 [facility] ([facility]) Hyaline Cast, Urine Auto RFX 0 /LPF 0-1 M [facility] ([facility]) Amorphous Sediment RFX Laboratory test result [facility] ([facility]) ID Date Data Source [id number] 11/06/2019 08:38:00 AM EDT [facility] ([facility]) Name Value Range Interpretation Code Description Data Melanie rce(s) Supporting Document(s) Reflex Urine Culture Laboratory test result [facility] ([facility]) <content>FULL REPORT IN LAB NOTES (eCW a [...] 1 S</content>
<content></content> ID Date Data Source [id number] 11/06/2019 08:38:00 AM EDT [facility] ([facility]) Name Value Range Interpretation Code Description Data Melanie rce(s) Supporting Document(s) Gats Culture (Neg Strep SCR) Laboratory test result [facility] ([facility]) FULL REPORT IN LAB NOTES ([facility] and [facility] ). NEGATIVE FOR STREP PYOGENES (GROUP A) ID Date Data Source [id number] 11/06/2019 08:38:00 AM EDT [facility] Name Value Range Interpretation Code Description Data Melanie rce(s) Supporting Document(s) Appearance, Urine RFX Laboratory test result [facility] ([facility]) Color, Urine RFX Laboratory test result [facility] ([facility]) PH,Urine RFX 8.0 units 5.0-9.0 [facility] Protein, Urine Auto RFX Laboratory test result [facility] ([facility]) Glucose, Urine (Ua) Auto RFX Laboratory test result [facility] ([facility]) Specific [place] Ur Auto RFX 1.003 1.002-1.035 [facility]) Ketone, Urine Auto RFX Laboratory test result [facility] ([facility]) Nitrite, Urine Auto RFX Laboratory test result [facility] ([facility]) Urobilinogen, Urine Auto RFX 0.2 mg/dL 0.0-2.0 [facility] ([facility]) Bilirubin, Urine Auto RFX Laboratory test result [facility] ([facility]) WBC, Urine Auto RFX 3 /HPF 0-3 [facility]) Leukocyte Esterase Ur Auto RFX Laboratory test result [facility] ([facility]) Blood, Urine Blood RFX Laboratory test result [facility] ([facility]) Squam Epithelial Cell Ur Aurfx 2 /HPF 0-6 [facility] ([facility]) Bacteria, Urine Auto RFX Laboratory test result [facility]) RBC, Urine Auto RFX 1 /HPF 0-3 [facility]) Mucus, Urine RFX Laboratory test result [facility] ([facility]) Hyaline Cast, Urine Auto RFX 0 /LPF 0-1 M [facility]) Amorphous Sediment RFX Laboratory test result [facility] ([facility]) ID Date Data Source [id number] 10/03/2019 09:43:00 AM EDT [facility] ([facility]) Name Value Range Interpretation Code Description Data Melanie rce(s) Supporting Document(s) Appearance, Urine RFX Laboratory test result [facility] ([facility]) Color, Urine RFX Laboratory test result [facility] ([facility]) Specific [place] Ur Auto RFX 1.023 1.002-1.035 [facility] ([facility]) PH,Urine RFX 6.0 units 5.0-9.0 [facility] ([facility]) Protein, Urine Auto RFX Laboratory test result [facility] ([facility]) Glucose, Urine (Ua) Auto RFX Laboratory test result [facility] ([facility]) Urobilinogen, Urine Auto RFX 0.2 mg/dL 0.0-2.0 [facility] ([facility]) Ketone, Urine Auto RFX Laboratory test result [facility] ([facility]) Blood, Urine Blood RFX Laboratory test result [facility] ([facility]) Nitrite, Urine Auto RFX Laboratory test result [facility] ([facility]) Bilirubin, Urine Auto RFX Laboratory test result [facility] ([facility]) Leukocyte Esterase Ur Auto RFX Laboratory test result [facility] ([facility]) Bacteria, Urine Auto RFX Laboratory test result [facility] ([facility]) WBC, Urine Auto RFX 41 /HPF 0-3 [facility] RBC, Urine Auto RFX 11 /HPF 0-3 [facility] ([facility]) Squam Epithelial Cell Ur Aurfx 8 /HPF 0-6 [facility] Mucus, Urine RFX Laboratory test result [facility] ([facility]) Hyaline Cast, Urine Auto RFX 0 /LPF 0-1 M EDENT ([facility]) Calcium Oxalate Crystals RFX Laboratory test result [facility] ([facility]) ID Date Data Source [id number] 10/03/2019 09:43:00 AM EDT [facility]) Name Value Range Interpretation Code Description Data Melanie rce(s) Supporting Document(s) Reflex Urine Culture Laboratory test result [facility] ([facility]) FULL REPORT IN LAB NOTES (eCW and [facility] ). SPECIMEN APPEARS CONTAMINATED ID Date Data Source [id number] 10/03/2019 08:28:00 AM EDT [facility] ([facility]) Name Value Range Interpretation Code Description Data Melanie rce(s) Supporting Document(s) Laboratory test finding (navigational concept) 38.0 % 38.0-51.0 [facility] ([facility]) Laboratory test finding (navigational concept) 143 meq/L 136-145 [facility] ([facility]) Laboratory test finding (navigational concept) 81 mg/dL 70-105 [facility] ([facility]) Laboratory test finding (navigational concept) 4.1 meq/L 3.5-5.1 [facility] ([facility]) Laboratory test finding (navigational concept) 104 meq/L 98-109 [facility] ([facility]) Laboratory test finding (navigational concept) 5.0 mg/dL 4.5-5.3 [facility] ([facility]) Laboratory test finding (navigational concept) 28.0 MM/L 23.0-27.0 [facility] ([facility]) Laboratory test finding (navigational concept) 0.9 mg/dL 0.6-1.3 [facility] ([facility]) Laboratory test finding (navigational concept) 12 mg/dL 8-26 [facility] ([facility]) ID Date Data Source [id number] 10/03/2019 08:23:00 AM EDT [facility] ([facility]) Name Value Range Interpretation Code Description Data Melanie rce(s) Supporting Document(s) Red Blood Count 4.19 10 4.00-5.40 [facility] ([facility]) White Blood Count 5.5 10 4.0-10.0 [facility] ([facility]) Mean Corpuscular Volume 95.0 fl 80.0-96.0 [facility] ([facility]) Hemoglobin 12.4 g/dL 12.0-15.5 [facility] Hematocrit 39.8 % 36.0-47.0 [facility] Mean Corpuscular Hemoglobin 29.6 pg 27.0-33.0 CA DENT ([facility]) Platelet Count, Automated 222 10 150-450 MEDE NT ([facility]) Mean Corpuscular HGB Conc 31.2 g/dL 32.0-36.5 MEDE NT ([facility]) Red Cell Distribution Width 15.4 % 11.5-14.5 ME DENT ([facility]) Lymph % 28.3 % 24.0-44.0 [facility] [place] % 6.0 % 0.0-5.0 [facility] Eos % 3.3 % 0.0-3.0 [facility] Neutrophils % 61.1 % 36.0-66.0 [facility] ([facility]) Immature Granulocyte % 0.9 % 0-3.0 [facility] ([facility]) Baso % 0.4 % 0.0-1.0 [facility]) Nucleated Red Blood Cell % 0.0 % 0-0 MED ENT ([facility]) [place] # 0.3 10 0.0-0.8 [facility] Lymph # 1.6 10 1.5-5.0 [facility]) Neutrophils # 3.3 10 1.5-8.5 [facility] ([facility]) Eos # 0.2 10 0.0-0.5 [facility] Baso # 0.0 10 0.0-0.2 [facility]) ID Date Data Source [id number] 10/03/2019 08:23:00 AM EDT [facility] ([facility]) Name Value Range Interpretation Code Description Data Melanie rce(s) Supporting Document(s) Alt/SGPT 21 U/L 12-78 [facility] ([facility]) Alkaline Phosphatase 66 U/L 45-117 [facility] ([facility]) Ast/Sgot 15 U/L 7-37 [facility]) Bilirubin,Total 0.3 mg/dL 0.2-1.0 [facility] ([facility]) Total Protein 7.1 GM/DL 6.4-8.2 [facility] ([facility]) Bilirubin,Direct Laboratory test result 0.0-0.2 [facility] ([facility]) Albumin/Globulin Ratio 1.03 1.00-1.93 [facility] ([facility]) Albumin 3.6 GM/DL 3.2-5.2 [facility]) ID Date Data Source [id number] 10/02/2019 02:57:00 PM EDT [facility] ([facility]) Name Value Range Interpretation Code Description Data Melanie rce(s) Supporting Document(s) Lipoprotein lipase [Enzymatic activity/volume] in Serum or P lasma 177 U/L 73-393 [facility] ([facility]) ID Date Data Source [id number] 10/02/2019 02:57:00 PM EDT [facility] ([facility]) Name Value Range Interpretation Code Description Data Melanie rce(s) Supporting Document(s) Glucose, Fasting 118 mg/dL 70-100 [facility] ([facility]) Creatinine For GFR 0.80 mg/dL 0.55-1.30 [facility] ([facility]) Blood Urea Nitrogen 15 mg/dL 7-18 [facility] ([facility]) Glomerular Filtration Rate Laboratory test result [facility] ([facility]) <content>Units are mL/min/1.73 m2</content>
<content></content>
<content>Chronic Kidney Disease Staging per NKF:</content>
<content></content>
<content>Stage I & II GFR >=60 Normal to Mildly Decreased</content>
<content>Stage III GFR 30-59 Moderately Decreased</content>
<content>Stage IV GFR 15-29 Severely Decreased</content>
<content>Stage V GFR <15 Very Little GFR Left</content>
<content>ESRD GFR <15 on DEVELOPMENT ANALYST</content>
<content></content> Sodium Level 143 meq/L 136-145 [facility] ([facility]) Chloride Level 109 meq/L 98-107 [facility] ([facility]) Potassium Serum 4.3 meq/L 3.5-5.1 [facility] ([facility]) Anion Gap 3 meq/L 8-16 [facility]) Calcium Level 8.6 mg/dL 8.8-10.2 [facility] ([facility]) Carbon Dioxide Level 31 meq/L 21-32 [facility] ([facility]) ID Date Data Source [id number] 10/02/2019 02:57:00 PM EDT [facility] ([facility]) Name Value Range Interpretation Code Description Data Melanie rce(s) Supporting Document(s) Alkaline Phosphatase 69 U/L 45-117 [facility] ([facility]) Ast/Sgot 17 U/L 7-37 [facility]) Alt/SGPT 20 U/L 12-78 [facility] Albumin 3.5 GM/DL 3.2-5.2 [facility]) Bilirubin,Total 0.2 mg/dL 0.2-1.0 [facility] ([facility]) Total Protein 7.0 GM/DL 6.4-8.2 [facility] ([facility]) Bilirubin,Direct Laboratory test result 0.0-0.2 [facility] ([facility]) Albumin/Globulin Ratio 1.00 1.00-1.93 [facility] ([facility]) ID Date Data Source [id number] 10/02/2019 02:57:00 PM EDT [facility] ([facility]) Name Value Range Interpretation Code Description Data Melanie rce(s) Supporting Document(s) Red Blood Count 4.11 10 4.00-5.40 [facility] ([facility]) Hemoglobin 12.2 g/dL 12.0-15.5 [facility] White Blood Count 7.2 10 4.0-10.0 [facility] ([facility]) Mean Corpuscular Hemoglobin 29.7 pg 27.0-33.0 ME DENT ([facility]) Mean Corpuscular Volume 94.6 fl 80.0-96.0 [facility] ([facility]) Mean Corpuscular HGB Conc 31.4 g/dL 32.0-36.5 MEDE NT ([facility]) Hematocrit 38.9 % 36.0-47.0 [facility] Neutrophils % 62.0 % 36.0-66.0 [facility] ([facility]) Platelet Count, Automated 215 10 150-450 MED[facility] NT ([facility]) Red Cell Distribution Width 15.3 % 11.5-14.5 ME [facility] ([facility]) [place] % 7.9 % 0.0-5.0 [facility]) Lymph % 26.7 % 24.0-44.0 [facility]) Eos % 2.9 % 0.0-3.0 [facility] Baso % 0.4 % 0.0-1.0 [facility]) Neutrophils # 4.5 10 1.5-8.5 [facility] ([facility]) Nucleated Red Blood Cell % 0.0 % 0-0 MED ENT ([facility]) Immature Granulocyte % 0.1 % 0-3.0 [facility] ([facility]) Lymph # 1.9 10 1.5-5.0 [facility]) [place] # 0.6 10 0.0-0.8 [facility]) Eos # 0.2 10 0.0-0.5 [facility] Baso # 0.0 10 0.0-0.2 [facility]) ID Date Data Source [id number] 09/30/2019 12:00:00 AM EDT [facility] Daisy CheneyFidelnp Patient Name:JOSIE RAMIREZ60 [facility] Date of : 1955 [address] Date of Exam:09/30/2019ANDREW Malin [id number]#: [phone]: [phone] EXAM: MAMMO UNI DIAGNOSTIC INCLUD CAD [...] rce(s) Supporting Document(s) ID Date Data Source [id number] 09/30/2019 12:00:00 AM EDT [facility] Figueroa Kapadia Patient Name:LADY RAMIREZ-60 [facility] Date of : 1955 [address] [facility] [id number]#: [phone]: [phone] EXAM: MAMMO UNI DIAGNOSTIC INCLUD CAD [...] rce(s) Supporting Document(s) ID Date Data Source [id number] 09/26/2019 09:36:00 AM EDT [facility] ([facility]) Name Value Range Interpretation Code Description Data Melanie rce(s) Supporting Document(s) Gats Culture (Neg Strep SCR) Laboratory test result [facility] ([facility]) FULL REPORT IN LAB NOTES (eCW and [facility] ). NEGATIVE FOR STREP PYOGENES (GROUP A) ID Date Data Source [id number] 09/26/2019 09:36:00 AM EDT [facility] ([facility]) Name Value Range Interpretation Code Description Data Melanie rce(s) Supporting Document(s) Influenza A Amplification Laboratory test result [facility] ([facility]) Negative results do not preclude influen za or RSV virus infection and should not be used as the sole basis for treatment or other patient management decisions. Influenza B Amplification Laboratory test result [facility] ([facility]) Negative results do not preclude influen za or RSV virus infection and should not be used as the sole basis for treatment or other patient management decisions. ID Date Data Source [id number] 09/10/2019 12:00:00 AM EST [facility] Daisy Tellez Jenny Anp, Rnnp Patient Name:FABIANO [id number] [facility] Date of : 1955 [facility] Date of Exam:09/10/2019ANDREW Malin [id number]#: [phone]: [phone] EXAM: MAMMO SCREENING WITH CADCLINICAL INFORMATION: [...] was interpreted with the aid of an GET-drkxhiwmlcghcuvp-bhgha detection system. A. Negative mammogram reports should [...] further medical management is currently recommended at thistime.GUANAKITO Guthrie/Prem you for referring FABIANO RAMIREZ to our office.Electronically Signed - ROHAN GARSIA MD 09/10/19 15:51 Name Value Range Interpretation Code Description Data Melanie rce(s) Supporting Document(s) ID Date Data Source [id number] 08/05/2019 03:16:00 PM EST [facility] ([facility]) Name Value Range Interpretation Code Description Data Melanie rce(s) Supporting Document(s) Glucose [Mass/volume] in Serum or Plasma 104 mg/dL 74-99 [facility] ([facility]) 100-125 mg/dL PRE-DIABETES/FASTING >126 mg/dL DIABETES/FASTING Creatinine 1.1 mg/dL 0.6-1.3 [facility] Urea nitrogen [Mass/volume] in Serum or Plasma 18 mg/dL 7-18 [facility] ([facility]) Sodium [Moles/volume] in Serum or Plasma 144 meq/L 136-145 [facility] ([facility]) Chloride [Moles/volume] in Serum or Plasma 104 meq/L 98-107 [facility] ([facility]) Potassium [Moles/volume] in Serum or Plasma 4.1 meq/L 3.5-5.1 [facility] ([facility]) Calcium [Mass/volume] in Serum or Plasma 9.7 mg/dL 8.5-10.1 [facility] ([facility]) Carbon dioxide, total [Moles/volume] in Serum or Plasma 35 meq/L 21 -32 [facility] ([facility]) Alkaline phosphatase isoenzyme [Units/volume] in Serum or Pl asma 56 mg/dL 46-116 [facility] ([facility]) Alanine aminotransferase [Enzymatic activity/volume] in Seru m or Plasma 22 U/L 12-78 [facility] ([facility]) Total Bilirubin 0.3 mg/dL 0.2-1.0 [facility] ([facility]) Aspartate aminotransferase [Enzymatic activity/volume] in Serum or Plasma 12 U/L 15-37 [facility] ([facility] ) A/G Ratio 0.97 CALC 1.00-1.90 [facility] ([facility]) Proteinase 3 Ab [Units/volume] in Serum 7.3 g/dL 6.4-8.2 [facility] ([facility]) Albumin [Mass/volume] in Serum or Plasma 3.6 g/dL 3.4-5.0 [facility] ([facility]) Glomerular filtration rate/1.73 sq M pre dicted among blacks [Volume Rate/Area] in Serum or Plasma by Creatinine-based formula (MDRD) >= 60 mL/min [facility]) <content>CHRONIC KIDNEY DISEASE STAGING PER NKF</content>
<content></content>
<content>STAGE I & II GFR >= 60 NORMAL TO MILDLY DECREASED</content>
<content>STAGE III GFR 30-59 MODERATELY DECREASED</content>
<content>STAGE IV GFR 15-29 SEVERELY DECREASED</content>
<content>STAGE V GFR <15 VERY LITTLE GFR LEFT</content>
<content>ESRD GFR <15 ON DEVELOPMENT ANALYST</content>
<content></content> Glomerular filtration rate/1.73 sq M pre dicted among non-blacks [Volume Rate/Area] in Serum or Plasma by Creatinine-based formula (MDRD) 50 mL/min [facility] ([facility]) ID Date Data Source [id number] 08/05/2019 03:16:00 PM EST [facility] ([facility]) Name Value Range Interpretation Code Description Data Melanie rce(s) Supporting Document(s) Hemoglobin [Mass/volume] in Blood 11.7 g/dL 12.0-18.0 [facility] ([facility]) Leukocytes [#/volume] in Blood by Automated count 9.0 x10*3/UL 4.1-10 .9 [facility] ([facility]) Erythrocytes [#/volume] in Blood by Automated count 3.99 x10*6/UL 4.2 0-6.30 [facility] ([facility]) MCV 89.8 fL 80.0-97.0 [facility] Hematocrit [Volume Fraction] of Blood by Automated count 35.9 % 3 7.0-51.0 [facility] ([facility]) MCH 29.2 pg 26.0-32.0 [facility]) MCHC 32.5 g/dL 31.0-38.0 [facility] ([facility]) Platelets [#/volume] in Blood by Automated count 208 x10*3/UL 140-440 [facility] ([facility]) Erythrocyte distribution width [Ratio] by Automated count 15.3 % 11.6-13.7 [facility] ([facility]) Lymph % 34.6 % 10.0-58.5 [facility] Mid % 8.0 % 1.7-9.3 [facility]) MPV 6.7 FL 7.8-11.0 [facility] ([facility]) Lymph # 3.1 x10*3/UL 0.6-4.1 [facility] ([facility]) Neut % 57.4 % 37.0-92.0 [facility] Neut # 5.2 x10*3/UL 2.0-7.8 [facility] ([facility]) Mid # 0.7 x10*3/UL 0.1-0.6 [facility] ([facility]) ID Date Data Source [id number] 07/23/2019 04:55:00 PM EST [facility] ([facility]) Name Value Range Interpretation Code Description Data Melanie rce(s) Supporting Document(s) Thyrotropin [Units/volume] in Serum or Plasma by Detec tion limit <= 0.05 mIU/L 0.327 uIU/ML 0.358-3.740 [facility] ([facility] ) By: Y By: Y ID Date Data Source [id number] 07/23/2019 04:55:00 PM EST [facility] ([facility]) Name Value Range Interpretation Code Description Data Melanie rce(s) Supporting Document(s) Glucose, Fasting 161 mg/dL 70-100 [facility] ([facility]) Creatinine For GFR 1.00 mg/dL 0.55-1.30 [facility] ([facility]) Blood Urea Nitrogen 23 mg/dL 7-18 [facility] ([facility]) Glomerular Filtration Rate 59.6 [facility] ([facility]) <content>Units are mL/min/1.73 m2</content>
<content></content>
<content>Chronic Kidney Disease Staging per NKF:</content>
<content></content>
<content>Stage I & II GFR >=60 Normal to Mildly Decreased</content>
<content>Stage III GFR 30- 59 Moderately Decreased</content>
<content>Stage IV GFR 15-29 Severely Decreased</content>
<content>Stage V GFR <15 Very Little GFR Left</content>
<content>ESRD GFR <15 on DEVELOPMENT ANALYST</content>
<content></content> Sodium Level 143 meq/L 136-145 [facility] ([facility]) Potassium Serum 3.8 meq/L 3.5-5.1 [facility] ([facility]) Chloride Level 108 meq/L 98-107 [facility] ([facility]) Calcium Level 9.1 mg/dL 8.8-10.2 [facility] ([facility]) Carbon Dioxide Level 27 meq/L 21-32 [facility] ([facility]) Anion Gap 8 meq/L 8-16 [facility] ID Date Data Source [id number] 07/23/2019 04:55:00 PM EST [facility] ([facility]) Name Value Range Interpretation Code Description Data Melanie rce(s) Supporting Document(s) CK-MB Value Mass 1.8 ng/mL [facility] ([facility]) CPK Creatine Phosphokinase 95 U/L 26-192 [facility] ([facility]) Troponin I < 0.02 ng/mL [facility] ([facility]) <content>Troponin I Reference Interval f or Siemens [place] LOCI:</content>
<content></content>
<content>99th Percentile= 0.00-0.045 ng/ml</content>
<content></content>
<content>Risk Stratification:</content>
<content><= 0.10 ng/ml Decreased Risk for Adverse Clinical</content>
<content>Events.</content>
<content>0.10-1.50 ng/ml Increased Risk for Adverse Clinical</content>
<content>Events. Evaluation of additional</content>
<content>criterion and/or repeat testing in 2-6</content>
<content>hours is suggested to rule out myocardial</content>
<content>damage.</content>
<content>>= 1.50 ng/ml Indicative of Myocardial Injury.</content>
<content></content> MB/CK Relative Index 1.89 [facility] ([facility]) <content>DIAGNOSIS CRITERIA</content>
<content>MMB ng/ml Relative Index (RI)</content>
<content>NON-AMI < or = 5 N/A</content>
<content>BARBOZA ZONE > 5 < or = 4</content>
<content>AMI > 5 > 4</content>
<content></content> ID Date Data Source [id number] 07/23/2019 04:55:00 PM EST [facility] ([facility]) Name Value Range Interpretation Code Description Data Melanie rce(s) Supporting Document(s) White Blood Count 5.8 10 4.0-10.0 [facility] Hemoglobin 11.6 g/dL 12.0-15.5 [facility] Red Blood Count 4.00 10 4.00-5.40 [facility] ([facility]) Hematocrit 37.6 % 36.0-47.0 [facility] Mean Corpuscular Volume 94.0 fl 80.0-96.0 [facility] ([facility]) Mean Corpuscular Hemoglobin 29.0 pg 27.0-33.0 ME [facility] ([facility]) Mean Corpuscular HGB Conc 30.9 g/dL 32.0-36.5 MEDE NT ([facility]) Platelet Count, Automated 222 10 150-450 MED[facility] NT ([facility]) Neutrophils % 73.6 % 36.0-66.0 [facility] ([facility]) Red Cell Distribution Width 16.1 % 11.5-14.5 ME [facility] ([facility]) Eos % 2.1 % 0.0-3.0 [facility]) [place] % 4.8 % 0.0-5.0 [facility]) Lymph % 19.0 % 24.0-44.0 [facility]) Immature Granulocyte % 0.2 % 0-3.0 [facility] ([facility]) Nucleated Red Blood Cell % 0.0 % 0-0 MED [facility] ([facility]) Baso % 0.3 % 0.0-1.0 [facility]) [place] # 0.3 10 0.0-0.8 [facility]) Lymph # 1.1 10 1.5-5.0 [facility]) Neutrophils # 4.3 10 1.5-8.5 [facility] ([facility]) Baso # 0.0 10 0.0-0.2 [facility]) Eos # 0.1 10 0.0-0.5 [facility]) Procedure Vital Signs ID Date Data Source [id number] Name Value Range Interpretation Code Description Data Source(s) Body mass index (BMI) [Ratio] 31.7 kg/m2 31.7 k g/m2 [facility] ([facility]) Oxygen saturation in Arterial blood by Pulse oximetry 97 % 97 % [facility] ([facility]) Body weight 157.00 [lb_av] 157.00 [lb_av] [facility] Body height 59 [in_i] 59 [in_i] [facility]) 4'11" Heart rate 102 /min 102 /min [facility] ([facility]) Diastolic blood pressure 80 mm[Hg] 80 mm[Hg] [facility] ([facility]) Systolic blood pressure 122 mm[Hg] 122 mm[Hg] [facility] ([facility]) Body mass index (BMI) [Ratio] 31.5 kg/m2 31.5 k g/m2 [facility] ([facility]) Oxygen saturation in Arterial blood by Pulse oximetry 96 % 96 % [facility] ([facility]) Body weight 156.00 [lb_av] 156.00 [lb_av] [facility] ([facility]) Body height 59 [in_i] 59 [in_i] [facility] ([facility]) 4'11" Heart rate 94 /min 94 /min [facility] ([facility]) Body mass index (BMI) [Ratio] 31.3 kg/m2 31.3 k g/m2 [facility] ([facility]) Oxygen saturation in Arterial blood by Pulse oximetry 96 % 96 % [facility] ([facility]) Body weight 155.00 [lb_av] 155.00 [lb_av] [facility] ([facility]) Body height 59 [in_i] 59 [in_i] [facility] ([facility]) 4'11" Heart rate 94 /min 94 /min [facility]) Diastolic blood pressure 72 mm[Hg] 72 mm[Hg] [facility] ([facility]) Systolic blood pressure 116 mm[Hg] 116 mm[Hg] [facility] ([facility]) Body mass index (BMI) [Ratio] 32.7 kg/m2 32.7 k g/m2 [facility] [facility] ([facility]) Body weight 162.00 [lb_av] 162.00 [lb_av] [facility] ([facility]) Body height 59 [in_i] 59 [in_i] [facility] ([facility]) 4'11" Body temperature 98.0 [degF] 98.0 [degF] [facility] ([facility]) Heart rate 80 /min 80 /min [facility] ([facility]) Diastolic blood pressure 80 mm[Hg] 80 mm[Hg] [facility] ([facility]) RT Arm Systolic blood pressure 136 mm[Hg] 136 mm[Hg] [facility] ([facility]) RT Arm Body mass index (BMI) [Ratio] 33.9 kg/m2 33.9 k g/m2 [facility] ([facility]) Body weight 168.00 [lb_av] 168.00 [lb_av] [facility] Body height 59 [in_i] 59 [in_i] [facility] ([facility]) 4'11" Heart rate 90 /min 90 /min [facility] ([facility]) Diastolic blood pressure 78 mm[Hg] 78 mm[Hg] [facility] ([facility]) Systolic blood pressure 132 mm[Hg] 132 mm[Hg] [facility] ([facility])
[2020-09-16 07:30] VITALS: BP 152/81
== END 2020-09-16 07:35 | disposition home or self-care (01) ==
LOC: M ED 03:50
DX: L53.8 Other specified erythematous conditions (principal); R30.0 Dysuria; G43.909 Migraine, unspecified, not intractable, without status migrainosus; Z86.718 Personal history of other venous thrombosis and embolism; J45.909 Unspecified asthma, uncomplicated; J44.9 Chronic obstructive pulmonary disease, unspecified; K21.9 Gastro-esophageal reflux disease without esophagitis; K57.30 Diverticulosis of large intestine without perforation or abscess without bleeding; K59.00 Constipation, unspecified; F31.9 Bipolar disorder, unspecified; Z87.448 Personal history of other diseases of urinary system; Z79.01 Long term (current) use of a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; Z79.899 Other long term (current) drug therapy; Z88.0 Allergy status to penicillin; Z88.8 Allergy status to other drugs, medicaments and biological substances; Z91.040 Latex allergy status

== ENCOUNTER 2020-09-30 00:33 | Emergency (ER) | payer MEDICARE, MEDICAID ==
[~2020-09-30] VITALS: Ht 149.9 cm; Wt 50.0 kg
[~2020-09-30 00:33] MED LIST changes: +NEOM28.3 TP
[2020-09-30 00:43] VITALS: BP 137/79
== END 2020-09-30 02:10 | disposition home or self-care (01) ==
LOC: M ED 00:33
DX: B35.1 Tinea unguium (principal); J45.909 Unspecified asthma, uncomplicated; K21.9 Gastro-esophageal reflux disease without esophagitis; F41.0 Panic disorder [episodic paroxysmal anxiety]; M54.30 Sciatica, unspecified side; F31.9 Bipolar disorder, unspecified; Z86.718 Personal history of other venous thrombosis and embolism; Z79.899 Other long term (current) drug therapy; Z88.0 Allergy status to penicillin; Z88.8 Allergy status to other drugs, medicaments and biological substances; Z91.040 Latex allergy status

== ENCOUNTER 2020-10-23 02:09 | Emergency (ER) | payer MEDICARE, MEDICAID ==
[~2020-10-23] VITALS: Ht 149.9 cm; Wt 86.4 kg
[2020-10-23] MEDS ORDERED: ARIP1TAB4 PO (02:34)
[2020-10-23] MEDS ORDERED: BACT800T5 PO (02:34)
[2020-10-23] MEDS ORDERED: ONDA4TAB6 PO (02:34)
--- NOTE | 2020-10-23 03:43 | REPVR ---
PROCEDURE INFORMATION: Exam: CT Head Without Contrast Exam date and time: 10/23/2020 2:51 AM Age: 65 years old Clinical indication: Injury or trauma; Fall; Blunt trauma (contusions or hematomas) TECHNIQUE: Imaging protocol: Computed tomography of the head without contrast. Radiation optimization: All CT scans at this facility use at least one of these dose optimization techniques: automated exposure control; mA and/or kV adjustment per patient size (includes targeted exams where dose is matched to clinical indication); or iterative reconstruction. COMPARISON: CT Head without contrast 03/09/2019 9:34 AM FINDINGS: Brain: Normal. No hemorrhage. Unremarkable white matter. No mass effect. Cerebral ventricles: There is slight prominence of the central ventricular system. Bones/joints: Unremarkable. No acute fracture. Paranasal sinuses: Minimal left maxillary rounded mucosal thickening. Mastoid air cells: Visualized mastoid air cells are well aerated. Soft tissues: Unremarkable. IMPRESSION: 1. Minimal atrophic change for age which is similar to 03/09/2019. 2. Otherwise negative noncontrast head CT. Electronically signed by: Ronn Orlando On 10/23/2020 03:43:33 AM
--- NOTE | 2020-10-23 03:47 | REPVR ---
PROCEDURE INFORMATION: Exam: CT Cervical Spine Without Contrast Exam date and time: 10/23/2020 2:51 AM Age: 65 years old Clinical indication: Injury or trauma; Fall; Blunt trauma TECHNIQUE: Imaging protocol: Computed tomography images of the cervical spine without contrast. Radiation optimization: All CT scans at this facility use at least one of these dose optimization techniques: automated exposure control; mA and/or kV adjustment per patient size (includes targeted exams where dose is matched to clinical indication); or iterative reconstruction. COMPARISON: CT Spine,cervical w/o contrast 12/17/2016 7:58 AM FINDINGS: Vertebrae: No acute fracture. Normal alignment. C2-C3: No significant disc protrusion. No severe spinal canal stenosis. No significant neural foraminal narrowing. C3-C4: Slight anterolisthesis with no spinal or foraminal stenosis. C4-C5: Mild anterolisthesis with early degenerative change of the right apophyseal joint and no spinal or foraminal stenosis. C5-C6: Mild interspace narrowing with paracentral osteophytes and degenerative changes of the uncovertebral joints, right greater than left with no spinal or foraminal stenosis. C6-C7: No significant disc protrusion. No severe spinal canal stenosis. No significant neural foraminal narrowing. C7-T1: No significant disc protrusion. No severe spinal canal stenosis. No significant neural foraminal narrowing. Soft tissues: Unremarkable. Lungs: There is minimal biapical scar. IMPRESSION: 1. There has been little change from 12/17/2016. No interval acute fracture or subluxation. 2. Degenerative disc change at C5-C6 with no spinal or foraminal stenosis throughout. Electronically signed by: Ronn Orlando On 10/23/2020 03:47:51 AM
--- NOTE | 2020-10-23 04:00 | REPVR ---
PROCEDURE INFORMATION: Exam: XR Right Knee Exam date and time: 10/23/2020 3:11 AM Age: 65 years old Clinical indication: Pain; Knee; Right; Additional info: Right knee pain TECHNIQUE: Imaging protocol: XR Right knee. Views: 1 or 2 views. COMPARISON: CR Knee, complete 08/02/2016 5:42 PM FINDINGS: Bones/joints: No fracture or malalignment. Tricompartmental osteoarthritis, worst in the patellofemoral joint. Bones are osteopenic. No chondrocalcinosis or erosive changes. Soft tissues: Normal. IMPRESSION: 1. Osteoarthritis. 2. No fracture or malalignment. Electronically signed by: Louie Bhagat On 10/23/2020 04:00:03 AM
--- NOTE | 2020-10-23 04:02 | REPVR ---
PROCEDURE INFORMATION: Exam: XR Pelvis Exam date and time: 10/23/2020 3:11 AM Age: 65 years old Clinical indication: Pelvic pain; Additional info: Right knee pain TECHNIQUE: Imaging protocol: XR pelvis. Views: 1 or 2 view. COMPARISON: CT ABD/PEL W/IV ORAL CONTRAS 04/23/2020 2:04 PM FINDINGS: Bones/joints: There is a severe lumbar dextroscoliosis. Large amount of fecal material throughout the advanced SI joint DJD. No acute fracture or malalignment. Hip joints are unremarkable. Soft tissues: Unremarkable. IMPRESSION: 1. No acute fracture. 2. Advanced degenerative changes as above. 3. Constipation. Electronically signed by: Louie Bhagat On 10/23/2020 04:02:27 AM
--- NOTE | 2020-10-23 04:04 | REPVR ---
PROCEDURE INFORMATION: Exam: XR Right Ankle Exam date and time: 10/23/2020 3:11 AM Age: 65 years old Clinical indication: Pain; Ankle; Right; Additional info: Right ankle pain TECHNIQUE: Imaging protocol: XR Right ankle. Views: 3 or more views. COMPARISON: CR Ankle, complete RIGHT 02/12/2020 6:31 AM FINDINGS: Bones/joints: Bones are osteopenic. No fracture or malalignment. Soft tissues: Unremarkable. IMPRESSION: No fracture or malalignment. Electronically signed by: Louie Bhagat On 10/23/2020 04:05:10 AM
[2020-10-23] MEDS ORDERED: ACETAMINOPHEN TAB 650MG DOSE (2X325MG) PO ONE (04:05)
[2020-10-23 06:30] VITALS: BP 113/66
== END 2020-10-23 07:10 | disposition home or self-care (01) ==
LOC: M ED 02:09
DX: S83.91XA Sprain of unspecified site of right knee, initial encounter (principal); S93.491A Sprain of other ligament of right ankle, initial encounter; W19.XXXA Unspecified fall, initial encounter; Y92.009 Unspecified place in unspecified non-institutional (private) residence as the place of occurrence of the external cause; Y93.9 Activity, unspecified; Y99.9 Unspecified external cause status; K59.00 Constipation, unspecified; M46.1 Sacroiliitis, not elsewhere classified; M41.86 Other forms of scoliosis, lumbar region; M17.11 Unilateral primary osteoarthritis, right knee; M50.322 Other cervical disc degeneration at C5-C6 level; Z79.01 Long term (current) use of a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; Z79.899 Other long term (current) drug therapy; Z88.0 Allergy status to penicillin; Z88.8 Allergy status to other drugs, medicaments and biological substances; Z91.040 Latex allergy status

== ENCOUNTER 2020-10-29 10:17 | Emergency (ER) | payer MEDICARE, MEDICAID ==
[2020-10-29] MEDS ORDERED: CIPR250T26 PO (11:44)
[2020-10-29 12:29] VITALS: BP 124/75
== END 2020-10-29 12:31 | disposition home or self-care (01) ==
LOC: M ED 10:17
DX: N39.0 Urinary tract infection, site not specified (principal); K21.9 Gastro-esophageal reflux disease without esophagitis; J45.909 Unspecified asthma, uncomplicated; F31.9 Bipolar disorder, unspecified; Z87.448 Personal history of other diseases of urinary system; Q05.9 Spina bifida, unspecified; Z86.718 Personal history of other venous thrombosis and embolism; Z79.01 Long term (current) use of a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; Z79.899 Other long term (current) drug therapy; Z88.0 Allergy status to penicillin; Z88.8 Allergy status to other drugs, medicaments and biological substances; Z91.040 Latex allergy status

== ENCOUNTER 2020-11-04 19:40 | Emergency (ER) | payer MEDICARE, MEDICAID ==
[~2020-11-04] VITALS: Ht 154.9 cm; Wt 68.2 kg
[~2020-11-04 19:40] MED LIST changes: +CIPR250T26 PO
[2020-11-04] MEDS ORDERED: ACETAMINOPHEN 325 MG TAB PO ONE (21:50)
[2020-11-04] MEDS ORDERED: CIPROFLOXACIN 500MG TABLET PO ONE (22:35)
[2020-11-04] MEDS ORDERED: CIPR500T39 PO (22:36)
[2020-11-04 22:57] VITALS: BP 122/75
== END 2020-11-04 23:00 | disposition home or self-care (01) ==
LOC: M ED 19:40
DX: N39.0 Urinary tract infection, site not specified (principal); G43.909 Migraine, unspecified, not intractable, without status migrainosus; K21.9 Gastro-esophageal reflux disease without esophagitis; K59.00 Constipation, unspecified; Z86.718 Personal history of other venous thrombosis and embolism; J45.909 Unspecified asthma, uncomplicated; M54.9 Dorsalgia, unspecified; F31.9 Bipolar disorder, unspecified; Z87.19 Personal history of other diseases of the digestive system; N31.9 Neuromuscular dysfunction of bladder, unspecified; Z79.01 Long term (current) use of a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; Z79.899 Other long term (current) drug therapy; Z88.0 Allergy status to penicillin; Z88.8 Allergy status to other drugs, medicaments and biological substances; Z91.040 Latex allergy status

== ENCOUNTER 2020-11-10 14:11 | Emergency (ER) | payer MEDICARE, MEDICAID ==
[~2020-11-10] VITALS: Ht 149.9 cm; Wt 68.2 kg
[~2020-11-10 14:11] MED LIST changes: +CIPR500T39 PO
[2020-11-10] MEDS ORDERED: NS 1,000 ML IV ONE (14:25)
[2020-11-10 15:22] VITALS: BP 125/58
[2020-11-10 15:55] LABS: BASO % 0.6 % (0.0-1.0); EOS # 0.2 10^3/uL (0.0-0.5); EOS % 4.6 % (0.0-3.0); HEMATOCRIT 37.1 % (36.0-47.0); HEMOGLOBIN 11.7 g/dl (12.0-15.5); LYMPH # 1.6 10^3/uL (1.5-5.0); LYMPH % 30.6 % (24.0-44.0); MEAN CORPUSCULAR HEMOGLOBIN 30.5 pg (27.0-33.0); MEAN CORPUSCULAR HGB CONC 31.5 g/dl (32.0-36.5); MEAN CORPUSCULAR VOLUME 96.9 fl (80.0-96.0); MONO # 0.4 10^3/uL (0.0-0.8); MONO % 6.8 % (2.0-8.0); PLATELET COUNT, AUTOMATED 205 10^3/uL (150-450); RED BLOOD COUNT 3.83 10^6/uL (4.00-5.40); WHITE BLOOD COUNT 5.3 10^3/uL (4.0-10.0)
[2020-11-10 16:30] LABS: ALBUMIN 3.5 GM/DL (3.2-5.2); ALT/SGPT 30 U/L (12-78); BILIRUBIN,DIRECT < 0.1 MG/DL (0.0-0.2); BILIRUBIN,TOTAL 0.1 MG/DL (0.2-1.0); BLOOD UREA NITROGEN 13 MG/DL (7-18); CALCIUM LEVEL 8.9 MG/DL (8.8-10.2); CARBON DIOXIDE LEVEL 28 MEQ/L (21-32); CHLORIDE LEVEL 106 MEQ/L (98-107); CPK CREATINE PHOSPHOKINASE 70 U/L (26-192); CREATININE FOR GFR 0.75 MG/DL (0.55-1.30); GLOMERULAR FILTRATION RATE > 60.0 (>45); GLUCOSE, FASTING 104 MG/DL (70-100); LIPASE 163 U/L (73-393); MB/CK RELATIVE INDEX 4.29 (< OR =4); POTASSIUM SERUM 4.3 MEQ/L (3.5-5.1); SODIUM LEVEL 141 MEQ/L (136-145); TOTAL PROTEIN 7.4 GM/DL (6.4-8.2); TROPONIN I < 0.02 NG/ML (< 0.10)
[2020-11-10] MEDS ORDERED: ISOVUE-370 76% 100ML VIAL As Ordered ONE (16:38)
--- NOTE | 2020-11-11 06:23 | ECGEPIP ---
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
== END 2020-11-10 18:38 | disposition home or self-care (01) ==
LOC: M ED 14:11
DX: R10.9 Unspecified abdominal pain (principal); J45.909 Unspecified asthma, uncomplicated; F31.9 Bipolar disorder, unspecified; Z79.01 Long term (current) use of a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; Z79.899 Other long term (current) drug therapy; Z88.0 Allergy status to penicillin; Z88.8 Allergy status to other drugs, medicaments and biological substances; Z91.040 Latex allergy status

== ENCOUNTER 2020-11-11 03:05 | Emergency (ER) | payer MEDICARE, MEDICAID ==
[~2020-11-11] VITALS: Ht 152.4 cm; Wt 68.2 kg
[2020-11-11 03:33] VITALS: BP 139/76
== END 2020-11-11 05:25 | disposition home or self-care (01) ==
LOC: M ED 03:05
DX: R19.7 Diarrhea, unspecified (principal); F31.9 Bipolar disorder, unspecified; Z79.01 Long term (current) use of a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; Z79.899 Other long term (current) drug therapy; Z88.0 Allergy status to penicillin; Z88.8 Allergy status to other drugs, medicaments and biological substances; Z91.040 Latex allergy status

== ENCOUNTER 2020-11-16 09:36 | Emergency (ER) | payer MEDICARE, MEDICAID ==
[~2020-11-16] VITALS: Ht 149.9 cm; Wt 75.9 kg
[2020-11-16] MEDS ORDERED: CEPHALEXIN 500 MG CAP PO ONE (13:40)
[2020-11-16 13:45] VITALS: BP 122/73
[2020-11-16] MEDS ORDERED: CEFD300C PO (13:46)
== END 2020-11-16 14:00 | disposition home or self-care (01) ==
LOC: EDBD 09:36 → M ED 09:36
DX: N39.0 Urinary tract infection, site not specified (principal); J45.909 Unspecified asthma, uncomplicated; F31.9 Bipolar disorder, unspecified; B35.1 Tinea unguium; Z79.01 Long term (current) use of a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; Z79.899 Other long term (current) drug therapy; Z88.0 Allergy status to penicillin; Z88.8 Allergy status to other drugs, medicaments and biological substances; Z91.040 Latex allergy status

== ENCOUNTER 2020-11-30 11:32 | Emergency (ER) | payer MEDICARE, MEDICAID ==
[~2020-11-30 11:32] MED LIST changes: -BANO25CA PO; +CEFD300C PO; +DIPH-319 PO
--- NOTE | 2020-11-30 14:16 | REP ---
INDICATION: ?chicken bone. COMPARISON: 06/01/2020. TECHNIQUE: Three AP and lateral views soft tissues neck. FINDINGS: There is no prevertebral soft tissue swelling. The adenoids and palatine tonsils are not enlarged. The epiglottis is normal in size. No radiopaque foreign body is seen along the course of the widely patent airway. There are mild degenerative changes of the C5-6 disc. IMPRESSION: No radiographic evidence of radiopaque foreign body along the course of the airway. <Electronically signed by Andrei Crump > 11/30/20 [id number]
[2020-11-30] MEDS ORDERED: SULF1TAB23 PO (14:36)
[2020-11-30 15:00] VITALS: BP 140/84
== END 2020-11-30 15:05 | disposition home or self-care (01) ==
LOC: M ED 11:32
DX: N39.0 Urinary tract infection, site not specified (principal); R09.89 Other specified symptoms and signs involving the circulatory and respiratory systems; K21.9 Gastro-esophageal reflux disease without esophagitis; Z87.440 Personal history of urinary (tract) infections; F31.9 Bipolar disorder, unspecified; Z79.01 Long term (current) use of a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; Z79.899 Other long term (current) drug therapy; Z88.0 Allergy status to penicillin; Z88.8 Allergy status to other drugs, medicaments and biological substances; Z91.040 Latex allergy status

== ENCOUNTER 2020-12-07 12:40 | Emergency (ER) | payer MEDICARE, MEDICAID ==
[~2020-12-07] VITALS: Ht 149.9 cm; Wt 72.7 kg
[~2020-12-07 12:40] MED LIST changes: +SULF1TAB23 PO
--- NOTE | 2020-12-07 15:57 | REP ---
INDICATION: feels like chick bone stuck in throat. COMPARISON: 11/30/2020. TECHNIQUE: Three AP and lateral views soft tissues neck. FINDINGS: There is no change since the prior study. Adenoids are not enlarged. There is no prevertebral soft tissue swelling. The epiglottis is normal in size. The airway is widely patent. I see no radiopaque foreign body along the course of the airway or cervical esophagus. There are again degenerative changes of the cervical spine. IMPRESSION: No radiographic evidence of radiopaque foreign body along the course of the airway or cervical esophagus. Further evaluation may be made with noncontrast CT neck soft tissues if clinically indicated. <Electronically signed by Andrei Crump > 12/07/20 [id number]
[2020-12-07 17:14] VITALS: BP 152/72
--- NOTE | 2020-12-11 10:55 | ED PDOC ---
Post-Departure Follow-Up dr guillen faxed formal report of soft tssue neck for fu Antonio Adorno MD December 11, 2020 10:55
== END 2020-12-07 17:20 | disposition home or self-care (01) ==
LOC: M ED 12:40
DX: R09.89 Other specified symptoms and signs involving the circulatory and respiratory systems (principal); J44.9 Chronic obstructive pulmonary disease, unspecified; F31.9 Bipolar disorder, unspecified; N39.0 Urinary tract infection, site not specified; G89.29 Other chronic pain; M54.9 Dorsalgia, unspecified; G43.909 Migraine, unspecified, not intractable, without status migrainosus; Z86.718 Personal history of other venous thrombosis and embolism; Z79.01 Long term (current) use of a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; Z79.899 Other long term (current) drug therapy; Z88.0 Allergy status to penicillin; Z88.8 Allergy status to other drugs, medicaments and biological substances; Z91.040 Latex allergy status

== ENCOUNTER 2021-01-05 08:20 | Emergency (ER) | payer MEDICARE, MEDICAID ==
[~2021-01-05] VITALS: Ht 149.9 cm; Wt 68.2 kg
[~2021-01-05 08:20] MED LIST changes: +OMEP40CA4 PO; -OMEP40CA97 PO
[2021-01-05] MEDS ORDERED: NS 500 ML IV ONE ×2 (08:30→10:25)
--- NOTE | 2021-01-05 08:49 | REP ---
INDICATION: fall. COMPARISON: 09/09/2020. TECHNIQUE: Single portable AP view of the chest was performed. FINDINGS: There is cardiomegaly. The mediastinal silhouette is unchanged. There is poor ventilation, with mild bibasilar atelectatic change. IMPRESSION: No acute pulmonary disease.Poor ventilation with mild bibasilar discoid atelectasis. <Electronically signed by Andrei Crump > 01/05/21 0821
[2021-01-05 09:20] LABS: BASO % 0.5 % (0.0-1.0); EOS # 0.2 10^3/uL (0.0-0.5); EOS % 3.1 % (0.0-3.0); HEMOGLOBIN 12.1 g/dl (12.0-15.5); LYMPH # 1.5 10^3/uL (1.5-5.0); LYMPH % 25.1 % (24.0-44.0); MEAN CORPUSCULAR HEMOGLOBIN 30.2 pg (27.0-33.0); MEAN CORPUSCULAR VOLUME 97.3 fl (80.0-96.0); MONO # 0.5 10^3/uL (0.0-0.8); MONO % 7.7 % (2.0-8.0); NEUTROPHILS # 3.7 10^3/uL (1.5-8.5); NEUTROPHILS % 63.4 % (36.0-66.0); PLATELET COUNT, AUTOMATED 167 10^3/uL (150-450); RED BLOOD COUNT 4.01 10^6/uL (4.00-5.40); WHITE BLOOD COUNT 5.8 10^3/uL (4.0-10.0)
[2021-01-05 09:36] LABS: ALBUMIN 3.5 GM/DL (3.2-5.2); ALT/SGPT 21 U/L (12-78); AMYLASE 58 U/L (25-115); BILIRUBIN,DIRECT < 0.1 MG/DL (0.0-0.2); BILIRUBIN,TOTAL 0.2 MG/DL (0.2-1.0); CK-MB VALUE MASS 2.2 NG/ML (<3.6); CPK CREATINE PHOSPHOKINASE 71 U/L (26-192); LIPASE 129 U/L (73-393); NT-PRO BNP 16 PG/ML (<125); TOTAL PROTEIN 7.5 GM/DL (6.4-8.2); TROPONIN I < 0.02 NG/ML (< 0.10)
--- NOTE | 2021-01-05 10:23 | REPVR ---
PROCEDURE INFORMATION: Exam: CT Cervical Spine Without Contrast Exam date and time: 01/05/2021 8:33 AM Age: 65 years old Clinical indication: Neck pain; Additional info: Fall on eliquis TECHNIQUE: Imaging protocol: Computed tomography images of the cervical spine without contrast. Radiation optimization: All CT scans at this facility use at least one of these dose optimization techniques: automated exposure control; mA and/or kV adjustment per patient size (includes targeted exams where dose is matched to clinical indication); or iterative reconstruction. COMPARISON: CT Spine,cervical w/o contrast 10/23/2020 2:46 AM FINDINGS: Bones/joints: No acute fracture. Mild anterolisthesis of C4 on C5. Mild degenerative changes with facet joint arthropathy and mild anterior osteophyte formation. X Discs/Spinal canal/Neural foramina: No significant disc protrusion. No severe spinal canal stenosis. No significant neural foraminal narrowing. Lungs: Lung apices are normal. Soft tissues: Unremarkable. IMPRESSION: No acute findings. Electronically signed by: Lula Mcdonald On 01/05/2021 10:23:04 AM
--- NOTE | 2021-01-05 10:27 | REPVR ---
PROCEDURE INFORMATION: Exam: CT Head Without Contrast Exam date and time: 01/05/2021 8:33 AM Age: 65 years old Clinical indication: Pain; Headache; Additional info: Fall on eliquis TECHNIQUE: Imaging protocol: Computed tomography of the head without contrast. Radiation optimization: All CT scans at this facility use at least one of these dose optimization techniques: automated exposure control; mA and/or kV adjustment per patient size (includes targeted exams where dose is matched to clinical indication); or iterative reconstruction. COMPARISON: CT Head without contrast 10/23/2020 2:46 AM FINDINGS: Brain: There is no acute intracranial abnormality. Mild small vessel ischemic changes are seen. There is no mass, midline shift, or mass effect. Crump-white matter differentiation is preserved. There is no evidence of hemorrhage. There is no extra-axial fluid collection. Basal cisterns are patent. Cerebral ventricles: Mild prominence of ventricles and sulci representing volume loss. Paranasal sinuses: Visualized sinuses are clear. Mastoid air cells: Mastoid air cells are clear. Bones/joints: The visualized osseous structures are unremarkable. Soft tissues: Unremarkable. IMPRESSION: 1. Mild volume loss and small vessel ischemic changes. . 2. No acute intracranial abnormality. Electronically signed by: Lula Mcdonald On 01/05/2021 10:27:12 AM
[2021-01-05] MEDS ORDERED: NS 1,000 ML IV ONE (12:10)
[2021-01-05 12:48] LABS: BILIRUBIN, URINE MANUAL NEGATIVE (NEGATIVE); GLUCOSE, URINE (UA) MANUAL NEGATIVE (NEGATIVE); KETONE, URINE MANUAL NEGATIVE (NEGATIVE); UROBILINOGEN, URINE MANUAL NORMAL (NORMAL)
[2021-01-05 12:50] LABS: BACTERIA, URINE SMALL AMOUNT; HYALINE CAST, URINE NONE SEEN /lpf (0-1); SQUAMOUS EPITHELIAL CELL URINE SMALL AMOUNT /hpf (SMALL AMT)
[2021-01-05 15:10] VITALS: BP 122/71
--- NOTE | 2021-01-06 06:47 | ECGEPIP ---
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
== END 2021-01-05 15:14 | disposition home or self-care (01) ==
LOC: M ED 08:20
DX: R53.1 Weakness (principal); W06.XXXA Fall from bed, initial encounter; Y92.9 Unspecified place or not applicable; Y93.9 Activity, unspecified; Y99.9 Unspecified external cause status; R06.02 Shortness of breath; G43.909 Migraine, unspecified, not intractable, without status migrainosus; J44.9 Chronic obstructive pulmonary disease, unspecified; K21.9 Gastro-esophageal reflux disease without esophagitis; M54.9 Dorsalgia, unspecified; F31.89 Other bipolar disorder; F41.9 Anxiety disorder, unspecified; Z79.01 Long term (current) use of a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; Z79.899 Other long term (current) drug therapy; Z88.0 Allergy status to penicillin; Z88.8 Allergy status to other drugs, medicaments and biological substances; Z91.040 Latex allergy status

== ENCOUNTER 2021-01-27 06:05 | Emergency (ER) | payer MEDICARE, MEDICAID ==
[~2021-01-27] VITALS: Ht 149.9 cm; Wt 53.1 kg
[~2021-01-27 06:05] MED LIST changes: +OLAN1TAB16 PO; -OLAN5TAB PO
[2021-01-27] MEDS ORDERED: POTA20TA6 PO (06:22)
[2021-01-27] MEDS ORDERED: ZYPR10TA PO (06:23)
[2021-01-27] MEDS ORDERED: PYRI1TAB5 PO (10:12)
[2021-01-27] MEDS ORDERED: BACT800T5 PO (10:18)
[2021-01-27 10:41] VITALS: BP 146/80
== END 2021-01-27 11:12 | disposition home or self-care (01) ==
LOC: M ED 06:05
DX: N30.01 Acute cystitis with hematuria (principal); Z87.440 Personal history of urinary (tract) infections; K21.9 Gastro-esophageal reflux disease without esophagitis; K57.92 Diverticulitis of intestine, part unspecified, without perforation or abscess without bleeding; J45.909 Unspecified asthma, uncomplicated; Z86.718 Personal history of other venous thrombosis and embolism; G43.909 Migraine, unspecified, not intractable, without status migrainosus; N31.9 Neuromuscular dysfunction of bladder, unspecified; Z79.01 Long term (current) use of a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; Z79.899 Other long term (current) drug therapy; Z88.0 Allergy status to penicillin; Z88.8 Allergy status to other drugs, medicaments and biological substances; Z91.040 Latex allergy status

== ENCOUNTER 2021-02-05 15:39 | Emergency (ER) | payer MEDICARE, MEDICAID ==
[~2021-02-05 15:39] MED LIST changes: +POTA20TA6 PO
[2021-02-05 19:33] LABS: BASO % 0.5 % (0.0-1.0); EOS # 0.1 10^3/uL (0.0-0.5); HEMATOCRIT 36.8 % (36.0-47.0); HEMOGLOBIN 11.4 g/dl (12.0-15.5); LYMPH # 2.3 10^3/uL (1.5-5.0); LYMPH % 35.2 % (24.0-44.0); MEAN CORPUSCULAR HEMOGLOBIN 29.7 pg (27.0-33.0); MEAN CORPUSCULAR VOLUME 95.8 fl (80.0-96.0); MONO # 0.6 10^3/uL (0.0-0.8); MONO % 8.6 % (2.0-8.0); NEUTROPHILS # 3.5 10^3/uL (1.5-8.5); NEUTROPHILS % 53.5 % (36.0-66.0); PLATELET COUNT, AUTOMATED 199 10^3/uL (150-450); RED BLOOD COUNT 3.84 10^6/uL (4.00-5.40); WHITE BLOOD COUNT 6.5 10^3/uL (4.0-10.0)
[2021-02-05] MEDS ORDERED: BACT800T5 PO (20:03)
[2021-02-05 20:21] LABS: BLOOD UREA NITROGEN 22 MG/DL (7-18); CARBON DIOXIDE LEVEL 28 MEQ/L (21-32); CHLORIDE LEVEL 108 MEQ/L (98-107); CREATININE FOR GFR 0.88 MG/DL (0.55-1.30); GLOMERULAR FILTRATION RATE > 60.0 (>45); GLUCOSE, FASTING 103 MG/DL (70-100); POTASSIUM SERUM 4.1 MEQ/L (3.5-5.1); SODIUM LEVEL 141 MEQ/L (136-145)
[2021-02-05 20:35] VITALS: BP 167/83
== END 2021-02-05 20:59 | disposition home or self-care (01) ==
LOC: M ED 15:39
DX: N39.0 Urinary tract infection, site not specified (principal); R10.84 Generalized abdominal pain; R11.2 Nausea with vomiting, unspecified; K21.9 Gastro-esophageal reflux disease without esophagitis; K57.92 Diverticulitis of intestine, part unspecified, without perforation or abscess without bleeding; N31.9 Neuromuscular dysfunction of bladder, unspecified; Z79.01 Long term (current) use of a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; Z79.899 Other long term (current) drug therapy; Z88.0 Allergy status to penicillin; Z88.8 Allergy status to other drugs, medicaments and biological substances; Z91.040 Latex allergy status

== ENCOUNTER 2021-02-09 07:16 | Emergency (ER) | payer MEDICARE, MEDICAID ==
[~2021-02-09] VITALS: Ht 149.9 cm; Wt 81.8 kg
[2021-02-09 07:17] VITALS: BP 128/74
== END 2021-02-09 10:54 | disposition home or self-care (01) ==
LOC: M ED 07:16
DX: L25.9 Unspecified contact dermatitis, unspecified cause (principal); G43.909 Migraine, unspecified, not intractable, without status migrainosus; F31.9 Bipolar disorder, unspecified; Z86.718 Personal history of other venous thrombosis and embolism; N31.9 Neuromuscular dysfunction of bladder, unspecified; Z79.01 Long term (current) use of a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; Z79.899 Other long term (current) drug therapy; Z88.0 Allergy status to penicillin; Z88.8 Allergy status to other drugs, medicaments and biological substances; Z91.040 Latex allergy status

== ENCOUNTER 2021-02-11 21:10 | Emergency (ER) | payer MEDICARE, MEDICAID ==
[~2021-02-11] VITALS: Ht 149.9 cm; Wt 68.7 kg
[2021-02-11 21:11] VITALS: BP 131/71
== END 2021-02-11 22:10 | disposition home or self-care (01) ==
LOC: M ED 21:10
DX: Z48.00 Encounter for change or removal of nonsurgical wound dressing (principal); F41.0 Panic disorder [episodic paroxysmal anxiety]; K21.9 Gastro-esophageal reflux disease without esophagitis; F31.9 Bipolar disorder, unspecified; M54.9 Dorsalgia, unspecified; Z86.718 Personal history of other venous thrombosis and embolism; K92.2 Gastrointestinal hemorrhage, unspecified; M54.30 Sciatica, unspecified side; Z79.01 Long term (current) use of a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; Z79.899 Other long term (current) drug therapy; Z88.0 Allergy status to penicillin; Z88.8 Allergy status to other drugs, medicaments and biological substances; Z91.040 Latex allergy status

== ENCOUNTER 2021-02-16 12:36 | Emergency (ER) | payer MEDICARE, MEDICAID ==
[~2021-02-16] VITALS: Ht 157.5 cm; Wt 68.2 kg
--- NOTE | 2021-02-16 13:38 | REP ---
INDICATION: ?FB. COMPARISON: CT cervical spine 01/05/2021 TECHNIQUE: AP and 2 lateral views soft tissue neck FINDINGS: Cervical spondylosis with disc space narrowing and both anterior and posterior osteophytes at C5-6. There is a few mm of anterolisthesis of C4 on C5 unchanged. No compression deformity the other disc space heights and all vertebral body heights included were intact. No change in the prevertebral soft tissues. Dens and anterior arch of C1 show narrowing of that space. Airway grossly intact thyroid cartilage the calcification is present with no gross mass or foreign body identified at this time. Incidental note is that the patient is edentulous. IMPRESSION: 1. Calcifications the thyroid cartilage bilaterally and no visible soft tissue mass, airway stenosis, prevertebral soft tissue swelling nor other acute finding. 2. Cervical spondylosis at C5-6 with disc space narrowing anterior and posterior osteophytes and a few mm of anterolisthesis of C4 on C5 related to facet arthropathy. No compression fracture or other acute finding. <Electronically signed by Arthur Serra > 02/16/21 [id number]
[2021-02-16] MEDS ORDERED: ACETAMINOPHEN TAB 650MG DOSE (2X325MG) PO ONE (15:45)
[2021-02-16 16:36] VITALS: BP 187/97
== END 2021-02-16 16:53 | disposition home or self-care (01) ==
LOC: M ED 12:36
DX: L98.9 Disorder of the skin and subcutaneous tissue, unspecified (principal); R30.0 Dysuria; G43.909 Migraine, unspecified, not intractable, without status migrainosus; F31.9 Bipolar disorder, unspecified; N31.2 Flaccid neuropathic bladder, not elsewhere classified; Z86.718 Personal history of other venous thrombosis and embolism; M47.892 Other spondylosis, cervical region; M25.78 Osteophyte, vertebrae; M43.12 Spondylolisthesis, cervical region; Z79.01 Long term (current) use of a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; Z79.899 Other long term (current) drug therapy; Z88.0 Allergy status to penicillin; Z88.8 Allergy status to other drugs, medicaments and biological substances; Z91.040 Latex allergy status

== ENCOUNTER 2021-02-18 06:02 | Emergency (ER) | payer MEDICARE, MEDICAID ==
[~2021-02-18] VITALS: Ht 149.9 cm; Wt 64.0 kg
[2021-02-18 06:12] VITALS: BP 121/62
--- NOTE | 2021-02-18 11:29 | REP ---
INDICATION: trauma - stubbed. COMPARISON: Right foot, 01/29/2020 TECHNIQUE: Four views of the left foot were obtained. FINDINGS: There are no definite fractures or dislocations identified. There is mild arthritis of the 1st 4th and 5th MTP joints and the PIP joints of the 4th and 5th toes. There is a moderate plantar spur. IMPRESSION: 1. There are no acute fractures identified. 2. Mild multifocal arthropathy. 3. Plantar spur. 4. No significant change. <Electronically signed by Yazan Hung > 02/18/21 2040
== END 2021-02-18 10:07 | disposition home or self-care (01) ==
LOC: M ED 06:02
DX: L25.9 Unspecified contact dermatitis, unspecified cause (principal); F31.9 Bipolar disorder, unspecified; G43.909 Migraine, unspecified, not intractable, without status migrainosus; Z86.718 Personal history of other venous thrombosis and embolism; N31.9 Neuromuscular dysfunction of bladder, unspecified; M77.30 Calcaneal spur, unspecified foot; Z79.01 Long term (current) use of a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; Z79.899 Other long term (current) drug therapy; Z88.0 Allergy status to penicillin; Z88.8 Allergy status to other drugs, medicaments and biological substances; Z91.040 Latex allergy status

== ENCOUNTER 2021-02-24 00:05 | Emergency (ER) | payer MEDICARE, MEDICAID ==
[~2021-02-24] VITALS: Ht 149.9 cm; Wt 70.5 kg
[~2021-02-24 00:05] MED LIST changes: -PSEU30TA85 PO; +PSEU30TA86 PO
[2021-02-24 07:48] VITALS: BP 124/76
== END 2021-02-24 07:50 | disposition home or self-care (01) ==
LOC: M ED 00:05
DX: Z48.01 Encounter for change or removal of surgical wound dressing (principal); R21 Rash and other nonspecific skin eruption; B35.1 Tinea unguium; F41.9 Anxiety disorder, unspecified; F31.89 Other bipolar disorder; K21.9 Gastro-esophageal reflux disease without esophagitis; J45.909 Unspecified asthma, uncomplicated; M54.30 Sciatica, unspecified side; Z79.01 Long term (current) use of a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; Z79.899 Other long term (current) drug therapy; Z88.0 Allergy status to penicillin; Z88.8 Allergy status to other drugs, medicaments and biological substances; Z91.040 Latex allergy status

== ENCOUNTER 2021-03-01 05:44 | Emergency (ER) | payer MEDICARE, MEDICAID ==
[~2021-03-01] VITALS: Ht 149.9 cm; Wt 70.5 kg
[2021-03-01] MEDS ORDERED: DIPH2.5T14 PO (06:04)
[2021-03-01] MEDS ORDERED: CYCL-707 PO (06:04)
[2021-03-01] MEDS ORDERED: ARIP1TAB4 PO (06:04)
[2021-03-01] MEDS ORDERED: LOPE2CAP PO (06:04)
[2021-03-01] MEDS ORDERED: NS 1,000 ML IV SCH (06:40)
[2021-03-01 07:12] LABS: BASO % 0.4 % (0.0-1.0); EOS # 0.1 10^3/uL (0.0-0.5); EOS % 1.8 % (0.0-3.0); HEMATOCRIT 36.7 % (36.0-47.0); HEMOGLOBIN 11.4 g/dl (12.0-15.5); LYMPH % 20.2 % (24.0-44.0); MEAN CORPUSCULAR HEMOGLOBIN 29.6 pg (27.0-33.0); MEAN CORPUSCULAR HGB CONC 31.1 g/dl (32.0-36.5); MEAN CORPUSCULAR VOLUME 95.3 fl (80.0-96.0); MONO # 0.3 10^3/uL (0.0-0.8); MONO % 6.5 % (2.0-8.0); NEUTROPHILS # 3.6 10^3/uL (1.5-8.5); NEUTROPHILS % 70.7 % (36.0-66.0); PLATELET COUNT, AUTOMATED 200 10^3/uL (150-450); RED BLOOD COUNT 3.85 10^6/uL (4.00-5.40); WHITE BLOOD COUNT 5.1 10^3/uL (4.0-10.0)
[2021-03-01 07:35] LABS: ALT/SGPT 38 U/L (12-78); BILIRUBIN,DIRECT < 0.1 MG/DL (0.0-0.2); BILIRUBIN,TOTAL 0.2 MG/DL (0.2-1.0); BLOOD UREA NITROGEN 27 MG/DL (7-18); CALCIUM LEVEL 9.2 MG/DL (8.8-10.2); CARBON DIOXIDE LEVEL 28 MEQ/L (21-32); CHLORIDE LEVEL 109 MEQ/L (98-107); CREATININE FOR GFR 0.93 MG/DL (0.55-1.30); GLOMERULAR FILTRATION RATE > 60.0 (>45); GLUCOSE, FASTING 100 MG/DL (70-100); LIPASE 114 U/L (73-393); POTASSIUM SERUM 4.2 MEQ/L (3.5-5.1); SODIUM LEVEL 143 MEQ/L (136-145); TOTAL PROTEIN 6.9 GM/DL (6.4-8.2)
--- NOTE | 2021-03-01 08:15 | REP ---
INDICATION: abd pain. COMPARISON: Portable chest dated 01/05/2021, PA chest dated 09/09/2020 and supine abdomen dated 03/27/2019. TECHNIQUE: Upright PA chest, supine and upright abdomen. FINDINGS: Upright PA chest: Lung webb are clear except for a chronic parenchymal scar in the left costophrenic angle, unchanged.. Cardiac size is normal. The nelly, mediastinum, and skeletal structures are unremarkable. There is lumbar scoliosis convex right, unchanged. There is no free subdiaphragmatic air. Abdomen, supine and upright views: Are no there is no bowel distention or obstruction. There are no calcifications. There are surgical clips superimposed over the scoliotic mid lumbar spine. There is lumbar scoliosis convex right. This is unchanged. IMPRESSION: No acute cardiopulmonary findings. No bowel distention or obstruction. <Electronically signed by Andrei Lopez > 03/01/21 0812
[2021-03-01 09:25] VITALS: BP 137/75
== END 2021-03-01 09:15 | disposition home or self-care (01) ==
LOC: M ED 05:44
DX: R19.7 Diarrhea, unspecified (principal); J45.909 Unspecified asthma, uncomplicated; K21.9 Gastro-esophageal reflux disease without esophagitis; Z79.899 Other long term (current) drug therapy; Z88.0 Allergy status to penicillin; Z88.8 Allergy status to other drugs, medicaments and biological substances; Z91.040 Latex allergy status; Z87.19 Personal history of other diseases of the digestive system; Z87.39 Personal history of other diseases of the musculoskeletal system and connective tissue

== ENCOUNTER 2021-03-01 16:49 | Emergency (ER) | payer MEDICARE, MEDICAID ==
[~2021-03-01] VITALS: Ht 149.9 cm; Wt 68.2 kg
--- NOTE | 2021-03-01 17:23 | REP ---
INDICATION: chicken bone (ap and lateral please). COMPARISON: None. TECHNIQUE: There are three views. FINDINGS: No radiopaque foreign bodies are identified. There are is partial calcification of the thyroid cartilage. The prevertebral soft tissues are unremarkable. The facets are normally aligned. Visualized vertebral body heights, interspacing and alignment are normal. IMPRESSION: No identifiable foreign body on plain films. Consider follow-up CT. Thyroid cartilage calcification is noted. <Electronically signed by Andrei Lopez > 03/01/21 [id number]
[2021-03-01 19:57] VITALS: BP 123/63
== END 2021-03-01 20:35 | disposition home or self-care (01) ==
LOC: M ED 20:10
DX: E07.9 Disorder of thyroid, unspecified (principal); T18.9XXA Foreign body of alimentary tract, part unspecified, initial encounter; Z79.01 Long term (current) use of a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; Z79.899 Other long term (current) drug therapy; Z88.0 Allergy status to penicillin; Z88.8 Allergy status to other drugs, medicaments and biological substances; Z91.040 Latex allergy status

== ENCOUNTER 2021-03-03 17:40 | Emergency (ER) | payer MEDICARE, MEDICAID ==
--- NOTE | 2021-03-03 19:45 | REPVR ---
PROCEDURE INFORMATION: Exam: XR Abdomen Exam date and time: 03/03/2021 6:34 PM Age: 65 years old Clinical indication: Constipation; Additional info: Abd pain, eval for obstipation, sbo TECHNIQUE: Imaging protocol: XR of the abdomen. Views: 2 Views. Upright and supine views. COMPARISON: CR Abdomen,Flat Upright,PA CHEST 03/01/2021 6:37 AM (The report from this study was not available for review at the time of this interpretation.) FINDINGS: Gastrointestinal tract: There is a large amount of formed stool in the colon. No dilated loops of bowel are noted. No significant air-fluid levels are seen in the bowel. The bowel in the pelvis was not imaged. Intraperitoneal space: No intraperitoneal free air is identified. Organs: There are surgical clips in the right upper quadrant of the abdomen related to a cholecystectomy. Bones/joints: There is a severe dextrorotatory scoliosis of the lumbar spine. IMPRESSION: Large amount of formed stool in the colon. No radiographic evidence for a bowel obstruction. Electronically signed by: Hipolito Tyler On 03/03/2021 19:44:48 PM
[2021-03-03] MEDS ORDERED: MIRA3350 PO (20:27)
[2021-03-03 20:50] VITALS: BP 148/52
== END 2021-03-03 21:00 | disposition home or self-care (01) ==
LOC: M ED 17:40 → EDBD 17:40 → M ED 21:00
DX: K59.00 Constipation, unspecified (principal); K21.9 Gastro-esophageal reflux disease without esophagitis; G43.909 Migraine, unspecified, not intractable, without status migrainosus; J44.9 Chronic obstructive pulmonary disease, unspecified; Z87.19 Personal history of other diseases of the digestive system; Z87.448 Personal history of other diseases of urinary system; F31.89 Other bipolar disorder; Z86.718 Personal history of other venous thrombosis and embolism; Z79.82 Long term (current) use of aspirin; Z79.899 Other long term (current) drug therapy; Z88.0 Allergy status to penicillin; Z88.8 Allergy status to other drugs, medicaments and biological substances; Z91.040 Latex allergy status

== ENCOUNTER 2021-03-07 22:43 | Emergency (ER) | payer MEDICARE, MEDICAID ==
[~2021-03-07] VITALS: Ht 149.9 cm; Wt 71.4 kg
[2021-03-08] MEDS ORDERED: COLA100C5 PO (09:13)
[2021-03-08 09:20] VITALS: BP 142/74
== END 2021-03-08 09:51 | disposition home or self-care (01) ==
LOC: M ED 22:43
DX: R35.0 Frequency of micturition (principal); K59.00 Constipation, unspecified; J44.9 Chronic obstructive pulmonary disease, unspecified; F31.9 Bipolar disorder, unspecified; Z86.718 Personal history of other venous thrombosis and embolism; Z79.01 Long term (current) use of a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; Z79.899 Other long term (current) drug therapy; Z88.0 Allergy status to penicillin; Z88.8 Allergy status to other drugs, medicaments and biological substances; Z91.040 Latex allergy status

== ENCOUNTER 2021-03-15 15:21 | Emergency (ER) | payer MEDICARE, MEDICAID ==
[2021-03-15 15:22] VITALS: BP 120/69
[2021-03-15] MEDS ORDERED: TRIAMCINOLONE ACET 0.1% OINTMENT 15 GM TOP ONE (20:25)
== END 2021-03-15 21:54 | disposition home or self-care (01) ==
LOC: M ED 15:21
DX: L30.9 Dermatitis, unspecified (principal); Z79.01 Long term (current) use of a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; Z79.899 Other long term (current) drug therapy; Z88.0 Allergy status to penicillin; Z91.040 Latex allergy status; Z88.8 Allergy status to other drugs, medicaments and biological substances

== ENCOUNTER 2021-03-17 13:24 | Emergency (ER) | payer MEDICARE, MEDICAID ==
[~2021-03-17] VITALS: Ht 149.9 cm; Wt 130.0 kg
[2021-03-17 13:27] VITALS: BP 128/66
[2021-03-17] MEDS ORDERED: OPTI4PAD XX (15:45)
== END 2021-03-17 16:41 | disposition home or self-care (01) ==
LOC: M ED 13:24
DX: L30.9 Dermatitis, unspecified (principal); G43.909 Migraine, unspecified, not intractable, without status migrainosus; J45.909 Unspecified asthma, uncomplicated; F31.9 Bipolar disorder, unspecified; J44.9 Chronic obstructive pulmonary disease, unspecified; N31.9 Neuromuscular dysfunction of bladder, unspecified; Z86.718 Personal history of other venous thrombosis and embolism; Z79.01 Long term (current) use of a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; Z79.899 Other long term (current) drug therapy; Z88.0 Allergy status to penicillin; Z88.8 Allergy status to other drugs, medicaments and biological substances; Z91.040 Latex allergy status

== ENCOUNTER 2021-03-24 20:05 | Emergency (ER) | payer MEDICARE, MEDICAID ==
[~2021-03-24] VITALS: Ht 149.9 cm; Wt 58.0 kg
[~2021-03-24 20:05] MED LIST changes: +OPTI4PAD XX
[2021-03-24 20:08] VITALS: BP 131/66
[2021-03-24] MEDS ORDERED: APAP325T4 PO (20:23)
--- NOTE | 2021-03-25 02:01 | REPVR ---
PROCEDURE INFORMATION: Exam: XR Right Foot Exam date and time: 03/25/2021 1:24 AM Age: 65 years old Clinical indication: Pain TECHNIQUE: Imaging protocol: XR Right foot. Views: 3 or more views. COMPARISON: CR Foot, complete RIGHT 02/18/2021 7:59 AM FINDINGS: Bones/joints: There is no acute fracture or dislocation of the right foot. No bony destructive changes are noted. There is a well corticated ossicle adjacent to the dorsal aspect of the head of the talus, which is the sequela of old trauma. There is mild cortical irregularity involving the base of the proximal phalanges of the right 4th and 5th toes, which is best appreciated in the AP view and likely the sequela of old healed trauma. There is mild osteoarthritis of the right 1st metatarsophalangeal joint. Soft tissues: There is a plantar calcaneal spur at the origin of the right plantar fascia. There is a soft tissue ulcer lateral to the region of the base of the proximal phalanx of the right little toe and soft tissue swelling in this region. IMPRESSION: 1. Soft tissue ulcer lateral to the region of the base of the proximal phalanx of the right little toe and soft tissue swelling in this region. 2. No acute fracture, dislocation, or bony destructive changes in the right foot. Electronically signed by: Hipolito Tyler On 03/25/2021 02:00:56 AM
--- NOTE | 2021-03-25 02:01 | REPVR ---
PROCEDURE INFORMATION: Exam: XR Right Ankle Exam date and time: 03/25/2021 1:24 AM Age: 65 years old Clinical indication: Pain TECHNIQUE: Imaging protocol: XR Right ankle. Views: 3 or more views. COMPARISON: CR Ankle, complete 10/23/2020 2:36 AM FINDINGS: Bones/joints: There is no acute fracture or dislocation of the right ankle. No bony destructive changes are noted. There is a well corticated ossicle adjacent to the dorsal aspect of the head of the talus, which is the sequela of old trauma. Incidental note is made of a well corticated accessory ossicle lateral to the cuboid, which represents an os peroneum. Soft tissues: There is a plantar calcaneal spur at the origin of the right plantar fascia. IMPRESSION: No acute fracture, dislocation, or bony destructive changes involving the right ankle. Electronically signed by: Hipolito Tyler On 03/25/2021 02:01:17 AM
[2021-03-25] MEDS ORDERED: GNP1CRE5 TOP (02:49)
== END 2021-03-25 03:20 | disposition home or self-care (01) ==
LOC: M ED 20:05
DX: L97.519 Non-pressure chronic ulcer of other part of right foot with unspecified severity (principal); B35.3 Tinea pedis; L25.9 Unspecified contact dermatitis, unspecified cause; G43.909 Migraine, unspecified, not intractable, without status migrainosus; J44.9 Chronic obstructive pulmonary disease, unspecified; K21.9 Gastro-esophageal reflux disease without esophagitis; K59.00 Constipation, unspecified; M54.9 Dorsalgia, unspecified; F31.89 Other bipolar disorder; F41.9 Anxiety disorder, unspecified; N31.9 Neuromuscular dysfunction of bladder, unspecified; Z79.01 Long term (current) use of a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; Z79.899 Other long term (current) drug therapy; Z88.0 Allergy status to penicillin; Z88.8 Allergy status to other drugs, medicaments and biological substances; Z91.040 Latex allergy status

== ENCOUNTER 2021-03-30 02:59 | Emergency (ER) | payer MEDICARE, MEDICAID ==
[~2021-03-30] VITALS: Ht 149.9 cm; Wt 65.3 kg
[~2021-03-30 02:59] MED LIST changes: +APAP325T4 PO; +GNP1CRE5 TOP
[2021-03-30 08:38] VITALS: BP 120/72
== END 2021-03-30 09:33 | disposition home or self-care (01) ==
LOC: M ED 02:59
DX: L97.519 Non-pressure chronic ulcer of other part of right foot with unspecified severity (principal); Z48.00 Encounter for change or removal of nonsurgical wound dressing; G89.4 Chronic pain syndrome; M54.5 Low back pain; G43.909 Migraine, unspecified, not intractable, without status migrainosus; K21.9 Gastro-esophageal reflux disease without esophagitis; J45.909 Unspecified asthma, uncomplicated; F31.9 Bipolar disorder, unspecified; F41.9 Anxiety disorder, unspecified; Z88.0 Allergy status to penicillin; Z88.8 Allergy status to other drugs, medicaments and biological substances; Z91.040 Latex allergy status; Z79.01 Long term (current) use of a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; Z79.899 Other long term (current) drug therapy

== ENCOUNTER 2021-04-01 00:40 | Emergency (ER) | payer MEDICARE, MEDICAID ==
[~2021-04-01] VITALS: Ht 149.9 cm; Wt 65.6 kg
[2021-04-01 00:44] VITALS: BP 128/62
[2021-04-01] MEDS ORDERED: GABAPENTIN 100 MG CAP PO ONE (02:15)
[2021-04-01] MEDS ORDERED: NEUR100C PO (02:16)
== END 2021-04-01 03:15 | disposition home or self-care (01) ==
LOC: M ED 00:40
DX: G62.9 Polyneuropathy, unspecified (principal); G89.4 Chronic pain syndrome; M54.5 Low back pain; G43.909 Migraine, unspecified, not intractable, without status migrainosus; K21.9 Gastro-esophageal reflux disease without esophagitis; J45.909 Unspecified asthma, uncomplicated; F31.9 Bipolar disorder, unspecified; F41.1 Generalized anxiety disorder; Z88.0 Allergy status to penicillin; Z88.8 Allergy status to other drugs, medicaments and biological substances; Z91.040 Latex allergy status; Z79.01 Long term (current) use of a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; Z79.899 Other long term (current) drug therapy

== ENCOUNTER 2021-04-07 11:39 | Emergency (ER) | payer MEDICARE, MEDICAID ==
[~2021-04-07] VITALS: Ht 149.9 cm; Wt 65.0 kg
[~2021-04-07 11:39] MED LIST changes: +NEUR100C PO
== END 2021-04-07 15:27 | disposition home or self-care (01) ==
LOC: EDBD 11:39 → M ED 11:39
DX: J02.9 Acute pharyngitis, unspecified (principal); R30.9 Painful micturition, unspecified; L84 Corns and callosities; N31.9 Neuromuscular dysfunction of bladder, unspecified; K21.9 Gastro-esophageal reflux disease without esophagitis; F31.89 Other bipolar disorder; F41.9 Anxiety disorder, unspecified; Z79.01 Long term (current) use of a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; Z79.899 Other long term (current) drug therapy; Z88.0 Allergy status to penicillin; Z88.8 Allergy status to other drugs, medicaments and biological substances; Z91.040 Latex allergy status

== ENCOUNTER 2021-04-12 09:53 | Emergency (ER) | payer MEDICARE, MEDICAID ==
[2021-04-12 16:02] LABS: BASO % 0.2 % (0.0-1.0); EOS # 0.2 10^3/uL (0.0-0.5); EOS % 2.7 % (0.0-3.0); HEMATOCRIT 35.4 % (36.0-47.0); HEMOGLOBIN 11.2 g/dl (12.0-15.5); LYMPH # 1.6 10^3/uL (1.5-5.0); LYMPH % 29.9 % (24.0-44.0); MEAN CORPUSCULAR HEMOGLOBIN 29.9 pg (27.0-33.0); MEAN CORPUSCULAR HGB CONC 31.6 g/dl (32.0-36.5); MEAN CORPUSCULAR VOLUME 94.7 fl (80.0-96.0); MONO # 0.4 10^3/uL (0.0-0.8); MONO % 6.7 % (2.0-8.0); NEUTROPHILS # 3.3 10^3/uL (1.5-8.5); NEUTROPHILS % 60.1 % (36.0-66.0); PLATELET COUNT, AUTOMATED 169 10^3/uL (150-450); RED BLOOD COUNT 3.74 10^6/uL (4.00-5.40); WHITE BLOOD COUNT 5.5 10^3/uL (4.0-10.0)
[2021-04-12 16:14] LABS: INR 1.02; PROTHROMBIN TIME 13.8 SECONDS (12.7-14.5)
[2021-04-12 16:15] LABS: PARTIAL THROMBOPLASTIN TIME 34.2 SECONDS (25.9-37.0)
[2021-04-12 16:26] LABS: ALBUMIN 3.2 GM/DL (3.2-5.2); ALT/SGPT 16 U/L (12-78); BILIRUBIN,TOTAL 0.2 MG/DL (0.2-1.0); BLOOD UREA NITROGEN 17 MG/DL (7-18); CALCIUM LEVEL 8.9 MG/DL (8.8-10.2); CARBON DIOXIDE LEVEL 30 MEQ/L (21-32); CHLORIDE LEVEL 109 MEQ/L (98-107); CREATININE FOR GFR 0.66 MG/DL (0.55-1.30); GLOMERULAR FILTRATION RATE > 60.0 (>45); GLUCOSE, FASTING 96 MG/DL (70-100); SODIUM LEVEL 144 MEQ/L (136-145); TOTAL PROTEIN 6.9 GM/DL (6.4-8.2)
[2021-04-12 19:38] VITALS: BP 131/72
== END 2021-04-12 20:11 | disposition home or self-care (01) ==
LOC: M ED 09:53
DX: R30.0 Dysuria (principal); R19.5 Other fecal abnormalities; R35.0 Frequency of micturition; Z79.01 Long term (current) use of a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; Z79.899 Other long term (current) drug therapy; Z88.0 Allergy status to penicillin; Z88.8 Allergy status to other drugs, medicaments and biological substances; Z91.040 Latex allergy status

== ENCOUNTER 2021-04-22 07:57 | Emergency (ER) | payer MEDICARE, MEDICAID ==
[~2021-04-22] VITALS: Ht 154.9 cm; Wt 52.4 kg
[2021-04-22 10:56] VITALS: BP 137/73
== END 2021-04-22 11:04 | disposition home or self-care (01) ==
LOC: M ED 07:57
DX: L84 Corns and callosities (principal); F41.9 Anxiety disorder, unspecified; F31.89 Other bipolar disorder; G43.909 Migraine, unspecified, not intractable, without status migrainosus; N31.9 Neuromuscular dysfunction of bladder, unspecified; Z86.718 Personal history of other venous thrombosis and embolism; Z79.01 Long term (current) use of a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; Z79.899 Other long term (current) drug therapy; Z88.0 Allergy status to penicillin; Z88.8 Allergy status to other drugs, medicaments and biological substances; Z91.040 Latex allergy status

== ENCOUNTER 2021-04-27 22:51 | Emergency (ER) | payer MEDICARE, MEDICAID ==
[~2021-04-27] VITALS: Ht 149.9 cm; Wt 68.2 kg
[2021-04-27 22:51] VITALS: BP 131/67
== END 2021-04-28 01:30 | disposition left against medical advice (07) ==
LOC: M ED 22:51
DX: Z53.21 Procedure and treatment not carried out due to patient leaving prior to being seen by health care provider (principal)

== ENCOUNTER 2021-05-06 07:36 | Emergency (ER) | payer MEDICARE, MEDICAID ==
[~2021-05-06 07:36] MED LIST changes: -IBUP200T45 PO; +IBUP200T46 PO
--- OUTSIDE RECORDS SUMMARY | 2021-05-06 08:33 | CCD | Continuity of Care Document ---
Author Author Sole HERRING ANP Organization Unknown Address [address] [place] [address] Phone [phone] Problems Active Problems Provider Date Chronic rhinitis Gurinder Gallagher MD Onset: 10/10/2011 Asthma without status asthmaticus Lazara Herring, A.N.P. Onset: 09/27/2010 Sleep apnea NONI Rojas Onset: 01/13/2020 Syncope and collapse NONI Rojas Onset: 01/13/2020 Social History Type Date Description Comments Sex Unknown ETOH Use Denies alcohol use Tobacco Use Start: Unknown Denies Smoking Recreational Drug Use Denies Drug Use Smoking Status Reviewed: 09/07/20 Denies Smoking Allergies and adverse reactions Active Allergies Criticality Reaction | Severity Comments Date Nitrofurantoin, Macrocrystals / Nitrofurantoin, Monohy drate Unable to assess criticality 05/27/2013 Macrodantin Unable to assess criticality 08/17/2008 Demerol Unable to assess criticality 06/26/2007 Darvocet-N 100 Unable to assess criticality 06/26/2007 Penicillin Unable to assess criticality 06/26/2007 Darvon Unable to assess criticality 06/26/2007 Medications Active Medications SIG Qnty Indications Ordering Provide r Date Advair Diskus 100-50mcg/Dose Aeros ol inhale one puff by mouth twice a day 60units NONI Rojas 11/09/2019 Linzess 290mcg Capsules 1 by mouth each day 90caps Griffin Shepherd JR, MD 08/19/2018 Saline Nasal [place] 0.65% Solution 2 sprays each nostril each morning and as needed 44units Rosalinda Herring, A.N.P. 12/17/2016 Proair HFA 108(90Base) mcg/Act Aer osol Inhale Two Puffs By Mouth Four Times A Day as Needed 8.5units Lazara Herring, A.NFreyaPFreya 12/19/2015 Ondansetron 4mg Tablets Dispers Storm Barney PFreyaA. Ciclopirox 8% Solution Rolando Denny, (DPM) Olanzapine 5mg Tablets Daisy Rodriguez, A.N.P. Meclizine HCL 25mg Tablets Daisy Rodriguez, A.N.P. Colestipol HCL 1gm Tablets Daisy Rodriguez, A.N.P. Tums 500mg Chewtabs 2 by mouth 3 X every day Unknown Eliquis 5mg Tablets 1 tab by mouth twice a day Unknown Clonazepam 0.5mg Tablets 1 tab by mouth bid Unknown Loperamide HCL 2mg Tablets 1 tab by mouth -- upto two times per day, only when needed for diarrhea. stop if developing constipation. Unknown Hydrocodone-Acetaminophen 7.5-325mg Tablets 1 tab by mouth every 6 hours as needed Un known Cyclobenzaprine HCL 10mg Tablets 1 tab by mouth 2 times a day Unknown Benadryl Allergy 25mg Capsules 1 po qhs Unknown Miralax 3350NF Powder one by mouth daily as needed constipation >3 days Unknown Sudafed 12 Hour 120mg Tablets ER 1 2HR 1 by mouth twice a day Unknown Fluticasone Propionate 50mcg/Act Suspension [place] Two Sprays In Each Nostril Every Day 16units NONI Rojas Zyprexa (Olanzapine) 2.5mg Tablets 2 po qhs Unknown Meclizine HCL 25mg Tablets 1 po bid Unknown Immunizations CPT Code Status Date Vaccine Lot # [id number] Given 05/11/2015 Influenza Virus Split 3 Yrs And Above For Intramuscular Use [id number] Given 06/30/2014 Influenza Virus Split 3 Yrs And Above For Intramuscular Use Q2036 Given 05/26/2013 Influenza Vaccine 3 Years Of Age Or Older (Flulaval) Q2036 Given 05/01/2011 Influenza Vaccine 3 Years Of Age Or Older (Flulaval) 55018 Given 05/11/2009 Influenza Vaccine Vital Signs Date Vital Result Comment 09/07/2020 2:34pm BP Systolic 134 mmHg BP Diastolic 84 mmHg Heart Rate 87 /min O2 % BldC Oximetry 93 % Body Temperature 97.0 F Height 59 inches 4'11" Weight 152.00 lb BMI (Body Mass Index) 30.7 kg/m2 [place] Body Weight 100 lb Weight 68.947 kg BSA (Body Surface Area) 1.64 m2 01/13/2020 2:22pm BP Systolic 150 mmHg BP Diastolic 90 mmHg Heart Rate 76 /min Height 59 inches 4'11" [place] Body Weight 100 lb Results Description No Information Available Procedures Description No Information Available Medical Devices Description No Information Available Encounters Description No Information Available Assessments Description No Information Available Plan of Treatment Future Appointment(s):* 09/13/2021 3:00 pm - [facility]I Rojas at [facility] Pulmonary/Thoracic 09/07/2020 - NONI Rojas* J45.909 Unspecified asthma, uncomplicated * * New Labs:* [facility]/Valentino, Scheduled: 09/13/21 * Follow up:* Follow up in 12 months with [facility] Functional Status Description No Information Available Mental Status Description No Information Available Referrals Description No Information Available
--- OUTSIDE RECORDS SUMMARY | 2021-05-06 08:35 | CCD ---
Author Author [facility] Organization [facility] Address Unknown Phone Unavailable Care Team Providers Care Aeronautical Research Engineer Name Role Phone MARK, F XAVIER DO Unavailable Unavailable MARK, F XAVIER DO Unavailable Unavailable MARK, F XAVIER DO Unavailable Unavailable MARK, F XAVIER DO Unavailable Unavailable MARK, F XAVIER DO Unavailable Unavailable MARK, F XAVIER DO Unavailable Unavailable MARK, F XAVIER DO Unavailable Unavailable MARK, F XAVIER DO Unavailable Unavailable MARK, F XAVIER DO Unavailable Unavailable MARK, F XAVIER DO Unavailable Unavailable MARK, F XAVIER DO Unavailable Unavailable MARK, F XAVIER DO Unavailable Unavailable MARK, F XAVIER DO Unavailable Unavailable MARK, F XAVIER DO Unavailable Unavailable MARK, F XAVIER DO Unavailable Unavailable MARK, F XAVIER DO Unavailable Unavailable MARK, F XAVIER DO Unavailable Unavailable MARK, F XAVIER DO Unavailable Unavailable MARK, F XAVIER DO Unavailable Unavailable MARK, F XAVIER DO Unavailable Unavailable MARK, F XAVIER DO Unavailable Unavailable MARK, F XAVIER DO Unavailable Unavailable MARK, F XAVIER DO Unavailable Unavailable MARK, F XAVIER DO Unavailable Unavailable MARK, F XAVIER DO Unavailable Unavailable MARK, F XAVIER DO Unavailable Unavailable MARK, F XAVIER DO Unavailable Unavailable MARK, F XAVIER DO Unavailable Unavailable MARK, F XAVIER DO Unavailable Unavailable MARK, F XAVIER DO Unavailable Unavailable MARK, F XAVIER DO Unavailable Unavailable MARK, F XAVIER DO Unavailable Unavailable MARK, F XAVIER DO Unavailable Unavailable MARK, F XAVIER DO Unavailable [facility]available [facility] Unavailable Unavailable KIARA SHERWOOD MD Unavailable Unavailable KIARA SHERWOOD MD Unavailable Unavailable KIARA SHERWOOD MD Unavailable Unavailable KIARA SHERWOOD MD Unavailable Unavailable KIARA SHERWOOD MD Unavailable Unavailable KIARA SHERWOOD MD Unavailable Unavailable KIARA SHERWOOD MD Unavailable Unavailable KIARA SHERWOOD MD Unavailable Unavailable KIARA SHERWOOD MD Unavailable Unavailable KIARA SHERWOOD MD Unavailable Unavailable KIARA SHERWOOD MD Unavailable Unavailable KIARA SHERWOOD MD Unavailable Unavailable Serge Echeverria MD Unavailable Unavailable Serge Echeverria MD Unavailable Unavailable Serge Echeverria MD Unavailable Unavailable Serge Echeverria MD Unavailable Unavailable Serge Echeverria MD Unavailable Unavailable Serge Echeverria MD Unavailable Unavailable JENNY, J Daisy ANP [...] J Daisy ANP Unavailable Unavailable JENNY, J Adisy ANP Unavailable Unavailable JENNY, J Daisy ANP [...] JENNY, J Daisy ANP Unavailable Unavailable Rosalinda MEDELLIN MD Unavailable Unavailable Rosalinda MEDELLIN MD Unavailable Unavailable Rosalinda MEDELLIN MD Unavailable Unavailable Rosalinda MEDELLIN MD Unavailable Unavailable Rosalinda MEDELLIN MD Unavailable Unavailable Rosalinda MEDELLIN MD Unavailable Unavailable Rosalinda MEDELLIN MD Unavailable Unavailable Rosalinda MEDELLIN MD Unavailable Unavailable Rosalinda MEDELLIN MD Unavailable Unavailable JENNY, J Daisy ANP [...] J Daisy ANP Unavailable Unavailable JENNY, J Adisy ANP Unavailable Unavailable JENNY, J Daisy ANP [...] Unavailable JENNY, J Daisy ANP Unavailable Unavailable CHANLIECCO, C KAREN MD Unavailable Unavailable CHANLIECCO, C KAREN MD Unavailable Unavailable CHANLIECCO, C KAREN MD Unavailable Unavailable CHANLIECCO, C KAREN MD Unavailable Unavailable CHANLIECCO, C KAREN MD Unavailable Unavailable CHANLIECCO, C KAREN MD Unavailable Unavailable CHANLIECCO, C KAREN MD Unavailable Unavailable CHANLIECCO, C KAREN MD Unavailable Unavailable CHANLIECCO, C KAREN MD Unavailable Unavailable CHANLIECCO, C KAREN MD Unavailable Unavailable CHANLIECCO, C KAREN MD Unavailable Unavailable NON, PHYSICIAN STAFF Unavailable Unavailable Re-disclosure Warning The records that [...] is protected by Article 27-F of the [facility] Public Health law. If you continue you may have access to information: Regarding HIV / AIDS; Provided by facilities licensed or operated by the [facility] Office of Mental Health; or Provided by the [facility] Office for People With Developmental Disabilities. If such information is present, then the following [facility] mandated warning applies: This information has [...] law may result in a fine or long term sentence or both. A general authorization for the release of medical or other information is NOT sufficient authorization for further disc losure. Family History Family Member Name Family Member Gender Family Member Status Date o f Status Description Data Source(s) Unknown Male Problem [facility] ([facility] () Unknown Female Problem [facility] ([facility]) Unknown Female Problem [facility] ([facility]) Unknown Female Problem [facility] ([facility]) Encounters Encounter Providers Location Date Indications Data Source(s ) Emergency Attender: Serge Echeverria MDConsultant: Daisy CHENEY 03/04/2021 11:38:00 AM EDT - 03/04/2021 02:32:[address] [facility] Patient discharged. Emergency Attender: Serge Echeverria MDConsultant: Daisy CHENEY 02/17/2021 07:58:00 AM EDT - 02/17/2021 10:25:[address] [facility] Patient discharged. Emergency Attender: XAVIER ROBERTSON DOConsultant: Daisy CHENEY 12/10/2020 05:37:00 AM EDT - 12/10/2020 07:15:00 AM EDT [facility] Patient discharged. Emergency Attender: KAREN LILLY MDConsultant: Meli CHENEY 12/01/2020 12:20:00 PM EDT - 12/01/2020 04:50:00 PM EDT [facility] Patient discharged. Outpatient Attender: [facility] 10/14/2020 12:0 4:00 AM EDT [facility] Emergency Attender: KAREN LILLY MDConsultant: Meli CHENEY 10/13/2020 11:01:00 PM EDT - 10/14/2020 04:24:00 AM EDT [facility] Patient discharged. Outpatient Attender: Daisy Craig 05/2021 01:40:00 PM EST [facility] ([facility] ) Emergency Attender: HENRI MEDELLIN MDConsultant: Daisy TREVINO ANP 07/01/2020 06:35:00 AM EST - 07/01/2020 07:46:00 AM EST [facility] Patient discharged. Outpatient Attender: Daisy Craig 01:45:00 PM EST [facility] ([facility] ) Outpatient Attender: Daisy Craig 02:45:00 PM EDT [facility] ([facility] ) Emergency Attender: HENRI MEDELLIN MDConsultant: Daisy MCMAHON ER ANP 03/18/2020 04:56:00 AM EDT - 03/18/2020 06:29:00 AM EDT [facility] Patient discharged. Emergency Attender: KIARA SHERWOOD MDConsultant: STAFF NON 03/02/2020 12:27:00 PM EDT - 03/02/2020 02:30:00 PM EDT [facility] Patient discharged. Immunizations Vaccine Date Status Description Data Source(s) COVID-19 VACCINE [email or web address] 04/11/2021 12:00:00 AM EDT completed [facility] Vaccine Series Complete: YESThis Data wa s Submitted to [facility] Via [employer]. COVID-19 VACCINE Pfizer 03/21/2021 12:00:00 AM EDT completed [facility] Vaccine Series Complete: NOThis Data was Submitted to [facility] Via [employer]. Influenza, injectable, MDCK, preservative free, stefania valent 05/01/2020 02:55:00 PM EDT completed [facility] ([facility]) Medications Medication Brand Name Start Date Product Form Dose Route Admi nistrative Instructions Pharmacy Instructions Status Indications Reaction Description Data Source(s) 2 mg 04/24/2021 12:00:00 AM EDT capsule 150 TAKE 1 CAPSULE BY MOUTH AFTER EACH LOOSE STOOL MAXIMUM DAILY DOSE = 5 CAPSULES TAKE 1 CAPSULE BY MOUTH AFTER EACH LOOSE STOOL MAXIMUM DAILY DOSE = 5 CAPSULES SOLD: 04/24/2021 [facility] 0.5 mg 04/10/2021 12:00:00 AM EDT tablet 60 TAKE ONE TABLET BY MOUTH TWICE A DAY MAXIMUM DAILY DOSE = 2 TABLETS TAKE ONE TABLET BY MOUTH TWICE A DAY MAX IMUM DAILY DOSE = 2 TABLETS SOLD: 04/10/2021 [facility] Acetaminophen 325 MG / Hydrocodone Bitartrate 7.5 MG O ral Tablet 7.5-325 mg HYDROCODONE/ACETAMINOPHEN 04/10/2021 12:00:00 AM EDT tablet 120 TAKE ONE TABLET BY MOUTH EVERY 6 HOURS NEEDED MAXIMUM DAILY DOSE = 4 TABLETS TAKE ONE TABLET BY MOUTH EVERY 6 HOURS NEEDED MAXIMUM DAILY DOSE = 4 TABLETS SOLD: 04/10/2021 [facility] DIAPER,BRIEF,ADULT, DISPOSABLE 04/09/2021 12:00:00 AM EDT mi sc 234 USE DIRECTED 8 TIMES PER DAY USE DIRECTED 8 TIMES PER DAY SOLD: 05/01/2021 [facility] DIAPER,BRIEF,ADULT, DISPOSABLE 04/09/2021 12:00:00 AM EDT mi sc 234 USE DIRECTED 8 TIMES PER DAY USE DIRECTED 8 TIMES PER DAY SOLD: 04/10/2021 [facility] 100 mg 04/01/2021 12:00:00 AM EDT capsule 90 TAKE ONE CAPSULE BY MOUTH THREE TIMES A DAY TAKE ONE CAPSULE BY MOUTH THREE TIMES A DAY SOLD: 04/03/2021 [facility] 125 mg 03/31/2021 12:00:00 AM EDT tablet,chewable 100 CHEW 1 TABLET BY MOUTH AFTER EACH MEAL AND BEFORE BED CHEW 1 TABLET BY MOUTH AFTER EACH MEAL A ND BEFORE BED SOLD: 04/24/2021 [facility] 125 mg 03/31/2021 12:00:00 AM EDT tablet,chewable 100 CHEW 1 TABLET BY MOUTH AFTER EACH MEAL AND BEFORE BED CHEW 1 TABLET BY MOUTH AFTER EACH MEAL A ND BEFORE BED SOLD: 04/01/2021 [facility] 25 mg 03/27/2021 12:00:00 AM EDT tablet 90 TAKE ONE TABLET BY MOUTH EVERY DAY TAKE ONE TABLET BY MOUTH EVERY DAY SOLD: 04/03/2021 [facility] 1 % 03/25/2021 12:00:00 AM EDT cream 30 USE 1 APPLICATION TOPICALLY TWO TIMES A DAY TO RIGHT FOOT USE 1 APPLICATION TOPICALLY TWO TIMES A DAY TO RIGHT FOOT SOLD: 03/27/2021 [facility] 325 mg 03/19/2021 12:00:00 AM EDT tablet 180 TAKE ONE TABLET BY MOUTH EVERY 3 HOURS NEEDED MAXIMUM DAILY DOSE = 6 TABLETS TAKE ONE TABLET BY MOUTH EVERY 3 HOURS NEEDED MAXIMUM DAILY DOSE = 6 TABLETS SOLD: 04/10/2021 [facility] 325 mg 03/19/2021 12:00:00 AM EDT tablet 180 TAKE ONE TABLET BY MOUTH EVERY 3 HOURS NEEDED MAXIMUM DAILY DOSE = 6 TABLETS TAKE ONE TABLET BY MOUTH EVERY 3 HOURS NEEDED MAXIMUM DAILY DOSE = 6 TABLETS SOLD: 03/20/2021 [facility] 0.5 mg 03/13/2021 12:00:00 AM EDT tablet 60 TAKE ONE TABLET BY MOUTH TWICE A DAY MAXIMUM DAILY DOSE = 2 TABLETS TAKE ONE TABLET BY MOUTH TWICE A DAY MAX IMUM DAILY DOSE = 2 TABLETS SOLD: 03/15/2021 [facility] 100 mg 03/08/2021 12:00:00 AM EDT capsule 60 TAKE ONE CAPSULE BY MOUTH TWICE A DAY TAKE ONE CAPSULE BY MOUTH TWICE A DAY SOLD: 03/15/2021 [facility] 23 X 36 " 03/06/2021 12:00:00 AM EDT pad 300 APPLY TO BED NEEDED FOR UP TO 10 A DAY APPLY TO BED NEEDED FOR UP TO 10 A DAY SOLD: 05/01/2021 [facility] 23 X 36 " 03/06/2021 12:00:00 AM EDT pad 300 APPLY TO BED NEEDED FOR UP TO 10 A DAY APPLY TO BED NEEDED FOR UP TO 10 A DAY SOLD: 03/07/2021 [facility] 23 X 36 " 03/06/2021 12:00:00 AM EDT pad 150 APPLY TO BED NEEDED FOR UP TO 10 A DAY APPLY TO BED NEEDED FOR UP TO 10 A DAY SOLD: 04/01/2021 [facility] 23 X 36 " 03/06/2021 12:00:00 AM EDT pad 300 APPLY TO BED NEEDED FOR UP TO 10 A DAY APPLY TO BED NEEDED FOR UP TO 10 A DAY SOLD: 04/03/2021 [facility] 25 mg 03/04/2021 12:00:00 AM EDT tablet 30 TAKE ONE TABLET BY MOUTH EVERY DAY (BENADRYL) TAKE ONE TABLET BY MOUTH EVERY DAY (BENADRYL) SOLD: 03/06/2021 [facility] 800-160 mg 02/17/2021 12:00:00 AM EDT tablet 14 TAKE ONE TABLET BY MOUTH TWICE A DAY TAKE ONE TABLET BY MOUTH TWICE A DAY SOLD: 02/17/2021 [facility] Acetaminophen 325 MG / Hydrocodone Bitartrate 7.5 MG O ral Tablet 7.5-325 mg HYDROCODONE/ACETAMINOPHEN 02/14/2021 12:00:00 AM EDT tablet 120 TAKE ONE TABLET BY MOUTH EVERY 6 HOURS NEEDED MAXIMUM DAILY DOSE = 4 TABLETS TAKE ONE TABLET BY MOUTH EVERY 6 HOURS NEEDED MAXIMUM DAILY DOSE = 4 TABLETS SOLD: 02/17/2021 [facility] 0.5 mg 02/06/2021 12:00:00 AM EDT tablet 60 TAKE ONE TABLET BY MOUTH TWICE A DAY MAXIMUM DAILY DOSE = 2 TAKE ONE TABLET BY MOUTH TWICE A DAY MAX IMUM DAILY DOSE = 2 SOLD: 02/13/2021 [facility] 800-160 mg 02/06/2021 12:00:00 AM EDT tablet 20 TAKE ONE TABLET BY MOUTH TWICE A DAY TAKE ONE TABLET BY MOUTH TWICE A DAY SOLD: 02/06/2021 [facility] 800-160 mg 01/27/2021 12:00:00 AM EDT tablet 20 TAKE ONE TABLET BY MOUTH EVERY 12 HOURS TAKE ONE TABLET BY MOUTH EVERY 12 HOURS SOLD: 01/27/2021 [facility] Atropine Sulfate 0.025 MG / Diphenoxylat e Hydrochloride 2.5 MG Oral Tablet 2.5- 0.025 mg DIPHENOXYLATE HCL/ATROPINE 01/23/2021 12:00:00 AM EDT tablet 30 TAKE ONE TABLET BY MOUTH EVERY DAY NEEDED FOR DIARRHEA MAXIMUM DAILY DOSE = 1 TABLET TAKE ONE TABLET BY MOUTH EVERY DAY NE EDED FOR DIARRHEA MAXIMUM DAILY DOSE = 1 TABLET SOLD: 01/27/2021 [facility] 25 mg 01/23/2021 12:00:00 AM EDT tablet 30 TAKE ONE TABLET BY MOUTH EVERY DAY (BENADRYL) TAKE ONE TABLET BY MOUTH EVERY DAY (BENADRYL) SOLD: 01/27/2021 [facility] Meclizine Hydrochloride 25 MG Oral Tablet MECLIZINE HCL 01/09/2021 12:00:00 AM EDT tablet 90 TAKE ONE TABLET BY MOUTH VICKI RY 8 HOURS NEEDED FOR DIZZINESS TAKE ONE TABLET BY MOUTH EVERY 8 HOURS NEEDED FOR DIZZINESS SOLD: 01/09/2021 [facility] 0.5 mg 01/09/2021 12:00:00 AM EDT tablet 60 TAKE ONE TABLET BY MOUTH TWICE A DAY MAXIMUM DAILY DOSE = 2 TABLETS TAKE ONE TABLET BY MOUTH TWICE A DAY MAX IMUM DAILY DOSE = 2 TABLETS SOLD: 01/09/2021 [facility] Meclizine Hydrochloride 25 MG Oral Tablet MECLIZINE HCL 01/09/2021 12:00:00 AM EDT tablet 90 TAKE ONE TABLET BY MOUTH VICKI RY 8 HOURS NEEDED FOR DIZZINESS TAKE ONE TABLET BY MOUTH EVERY 8 HOURS NEEDED FOR DIZZINESS SOLD: 02/27/2021 [facility] Meclizine Hydrochloride 25 MG Oral Tablet MECLIZINE HCL 01/09/2021 12:00:00 AM EDT tablet 90 TAKE ONE TABLET BY MOUTH VICKI RY 8 HOURS NEEDED FOR DIZZINESS TAKE ONE TABLET BY MOUTH EVERY 8 HOURS NEEDED FOR DIZZINESS SOLD: 04/10/2021 [facility] 25 mg 12/28/2020 12:00:00 AM EDT tablet 30 TAKE ONE TABLET BY MOUTH EVERY DAY (BENADRYL) TAKE ONE TABLET BY MOUTH EVERY DAY (BENADRYL) SOLD: 12/30/2020 [facility] NITROFURANTOIN, MACROCRYSTALS 25 MG / Ni trofurantoin, Monohydrate 75 MG Oral Capsule 100 mg NITROFURANTOIN MONOHYD/M-CRYST 12/26/2020 12:00:00 AM EDT ca psule 14 TAKE ONE CAPSULE BY MOUTH TWICE A DAY FOR 7 DAYS TAKE ONE CAPSULE BY MOUTH TWICE A DAY FOR 7 DAYS SOLD: 12/26/2020 [facility] Ondansetron 4 MG Disintegrating Oral Tablet ONDANSETRON 12/19/2020 12:00:00 AM EDT tablet,disintegrating 45 TAKE ONE T ABLET BY MOUTH EVERY 6 HOURS NEEDED FOR NAUSEA TAKE ONE TABLET BY MOUTH EVERY 6 HOURS NEEDED FOR N AUSEA SOLD: 03/20/2021 [facility] Ondansetron 4 MG Disintegrating Oral Tablet ONDANSETRON 12/19/2020 12:00:00 AM EDT tablet,disintegrating 45 TAKE ONE T ABLET BY MOUTH EVERY 6 HOURS NEEDED FOR NAUSEA TAKE ONE TABLET BY MOUTH EVERY 6 HOURS NEEDED FOR N AUSEA SOLD: 02/06/2021 [facility] Ondansetron 4 MG Disintegrating Oral Tablet ONDANSETRON 12/19/2020 12:00:00 AM EDT tablet,disintegrating 45 TAKE ONE T ABLET BY MOUTH EVERY 6 HOURS NEEDED FOR NAUSEA TAKE ONE TABLET BY MOUTH EVERY 6 HOURS NEEDED FOR N AUSEA SOLD: 12/19/2020 [facility] Ondansetron 4 MG Disintegrating Oral Tablet ONDANSETRON 12/19/2020 12:00:00 AM EDT tablet,disintegrating 45 TAKE ONE T ABLET BY MOUTH EVERY 6 HOURS NEEDED FOR NAUSEA TAKE ONE TABLET BY MOUTH EVERY 6 HOURS NEEDED FOR N AUSEA SOLD: 01/09/2021 [facility] 0.5 mg 12/13/2020 12:00:00 AM EDT tablet 60 TAKE ONE TABLET BY MOUTH TWICE A DAY MAXIMUM DAILY DOSE = 2 TABLETS TAKE ONE TABLET BY MOUTH TWICE A DAY MAX IMUM DAILY DOSE = 2 TABLETS SOLD: 12/13/2020 [facility] Acetaminophen 325 MG / Hydrocodone Bitartrate 7.5 MG O ral Tablet 7.5-325 mg HYDROCODONE/ACETAMINOPHEN 12/13/2020 12:00:00 AM EDT tablet 120 TAKE ONE TABLET BY MOUTH EVERY 6 HOURS NEEDED MAXIMUM DAILY DOSE = 4 TABLETS TAKE ONE TABLET BY MOUTH EVERY 6 HOURS NEEDED MAXIMUM DAILY DOSE = 4 TABLETS SOLD: 12/13/2020 [facility] Cyclobenzaprine hydrochloride 10 MG Oral Tablet CYCLOBENZAPR INE HCL 12/12/2020 12:00:00 AM EDT tablet 60 TAKE ONE TABLET BY MOUTH TWICE A DAY NEEDED TAKE ONE TABLET BY MOUTH TWICE A DAY NEEDED SOLD: 03/27/2021 [facility] 125 mg 12/12/2020 12:00:00 AM EDT tablet,chewable 100 CHEW 1 TABLET BY MOUTH AFTER EACH MEAL AND BEFORE BED CHEW 1 TABLET BY MOUTH AFTER EACH MEAL A ND BEFORE BED SOLD: 02/06/2021 [facility] Cyclobenzaprine hydrochloride 10 MG Oral Tablet CYCLOBENZAPR INE HCL 12/12/2020 12:00:00 AM EDT tablet 60 TAKE ONE TABLET BY MOUTH TWICE A DAY NEEDED TAKE ONE TABLET BY MOUTH TWICE A DAY NEEDED SOLD: 04/16/2021 [facility] 125 mg 12/12/2020 12:00:00 AM EDT tablet,chewable 70 CHEW 1 TABLET BY MOUTH AFTER EACH MEAL AND BEFORE BED CHEW 1 TABLET BY MOUTH AFTER EACH MEAL A ND BEFORE BED SOLD: 03/15/2021 [facility] Cyclobenzaprine hydrochloride 10 MG Oral Tablet CYCLOBENZAPR INE HCL 12/12/2020 12:00:00 AM EDT tablet 60 TAKE ONE TABLET BY MOUTH TWICE A DAY NEEDED TAKE ONE TABLET BY MOUTH TWICE A DAY NEEDED SOLD: 02/27/2021 [facility] 125 mg 12/12/2020 12:00:00 AM EDT tablet,chewable 100 CHEW 1 TABLET BY MOUTH AFTER EACH MEAL AND BEFORE BED CHEW 1 TABLET BY MOUTH AFTER EACH MEAL A ND BEFORE BED SOLD: 01/17/2021 [facility] 125 mg 12/12/2020 12:00:00 AM EDT tablet,chewable 100 CHEW 1 TABLET BY MOUTH AFTER EACH MEAL AND BEFORE BED CHEW 1 TABLET BY MOUTH AFTER EACH MEAL A ND BEFORE BED SOLD: 12/12/2020 [facility] 23 X 36 " 12/12/2020 12:00:00 AM EDT pad 150 APPLY TO BED NEEDED FOR UP TO 10 A DAY APPLY TO BED NEEDED FOR UP TO 10 A DAY SOLD: 01/23/2021 [facility] 125 mg 12/12/2020 12:00:00 AM EDT tablet,chewable 100 CHEW 1 TABLET BY MOUTH AFTER EACH MEAL AND BEFORE BED CHEW 1 TABLET BY MOUTH AFTER EACH MEAL A ND BEFORE BED SOLD: 12/30/2020 [facility] 23 X 36 " 12/12/2020 12:00:00 AM EDT pad 300 APPLY TO BED NEEDED FOR UP TO 10 A DAY APPLY TO BED NEEDED FOR UP TO 10 A DAY SOLD: 02/27/2021 [facility] 23 X 36 " 12/12/2020 12:00:00 AM EDT pad 150 APPLY TO BED NEEDED FOR UP TO 10 A DAY APPLY TO BED NEEDED FOR UP TO 10 A DAY SOLD: 01/02/2021 [facility] 23 X 36 " 12/12/2020 12:00:00 AM EDT pad 300 APPLY TO BED NEEDED FOR UP TO 10 A DAY APPLY TO BED NEEDED FOR UP TO 10 A DAY SOLD: 01/09/2021 [facility] Cyclobenzaprine hydrochloride 10 MG Oral Tablet CYCLOBENZAPR INE HCL 12/12/2020 12:00:00 AM EDT tablet 60 TAKE ONE TABLET BY MOUTH TWICE A DAY NEEDED TAKE ONE TABLET BY MOUTH TWICE A DAY NEEDED SOLD: 12/12/2020 [facility] 23 X 36 " 12/12/2020 12:00:00 AM EDT pad 150 APPLY TO BED NEEDED FOR UP TO 10 A DAY APPLY TO BED NEEDED FOR UP TO 10 A DAY SOLD: 12/26/2020 [facility] 23 X 36 " 12/12/2020 12:00:00 AM EDT pad 150 APPLY TO BED NEEDED FOR UP TO 10 A DAY APPLY TO BED NEEDED FOR UP TO 10 A DAY SOLD: 02/13/2021 [facility] 23 X 36 " 12/12/2020 12:00:00 AM EDT pad 300 APPLY TO BED NEEDED FOR UP TO 10 A DAY APPLY TO BED NEEDED FOR UP TO 10 A DAY SOLD: 02/06/2021 [facility] 125 mg 12/12/2020 12:00:00 AM EDT tablet,chewable 100 CHEW 1 TABLET BY MOUTH AFTER EACH MEAL AND BEFORE BED CHEW 1 TABLET BY MOUTH AFTER EACH MEAL A ND BEFORE BED SOLD: 02/27/2021 [facility] Cyclobenzaprine hydrochloride 10 MG Oral Tablet CYCLOBENZAPR INE HCL 12/12/2020 12:00:00 AM EDT tablet 60 TAKE ONE TABLET BY MOUTH TWICE A DAY NEEDED TAKE ONE TABLET BY MOUTH TWICE A DAY NEEDED SOLD: 01/09/2021 [facility] 23 X 36 " 12/12/2020 12:00:00 AM EDT pad 300 APPLY TO BED NEEDED FOR UP TO 10 A DAY APPLY TO BED NEEDED FOR UP TO 10 A DAY SOLD: 12/12/2020 [facility] NITROFURANTOIN, MACROCRYSTALS 25 MG / Ni trofurantoin, Monohydrate 75 MG Oral Capsule 100 mg NITROFURANTOIN MONOHYD/M-CRYST 12/10/2020 12:00:00 AM EDT ca psule 14 TAKE ONE CAPSULE BY MOUTH TWICE A DAY TAKE ONE CAPSULE BY MOUTH TWICE A DAY SOLD: 12/12/2020 [facility] 25 mg 12/06/2020 12:00:00 AM EDT tablet 30 TAKE ONE TABLET BY MOUTH EVERY DAY (BENADRYL) TAKE ONE TABLET BY MOUTH EVERY DAY (BENADRYL) SOLD: 12/12/2020 [facility] 800-160 mg 11/30/2020 12:00:00 AM EDT tablet 6 TAKE ONE TABLET BY MOUTH TWICE A DAY TAKE ONE TABLET BY MOUTH TWICE A DAY SOLD: 12/04/2020 [facility] Acetaminophen 325 MG / Hydrocodone Bitartrate 7.5 MG O ral Tablet 7.5-325 mg HYDROCODONE/ACETAMINOPHEN 11/28/2020 12:00:00 AM EDT tablet 60 TAKE ONE TABLET BY MOUTH EVERY 6 HOURS NEEDED MAXIMUM DAILY DOSE = 4 TABLETS TAKE ONE TABLET BY MOUTH EVERY 6 HOURS NEEDED MAXIMUM DAILY DOSE = 4 TABLETS SOLD: 11/28/2020 [facility] 300 mg 11/21/2020 12:00:00 AM EDT capsule 5 TAKE ONE CAPSULE BY MOUTH TWICE A DAY TAKE ONE CAPSULE BY MOUTH TWICE A DAY SOLD: 11/21/2020 [facility] 300 mg 11/16/2020 12:00:00 AM EDT capsule 6 TAKE ONE CAPSULE BY MOUTH TWICE A DAY TAKE ONE CAPSULE BY MOUTH TWICE A DAY SOLD: 11/16/2020 [facility] 325 mg 11/14/2020 12:00:00 AM EDT tablet 180 TAKE ONE TABLET BY MOUTH EVERY 3 HOURS NEEDED MAXIMUM DAILY DOSE = 6 TABLETS TAKE ONE TABLET BY MOUTH EVERY 3 HOURS NEEDED MAXIMUM DAILY DOSE = 6 TABLETS SOLD: 12/30/2020 [facility] 325 mg 11/14/2020 12:00:00 AM EDT tablet 180 TAKE ONE TABLET BY MOUTH EVERY 3 HOURS NEEDED MAXIMUM DAILY DOSE = 6 TABLETS TAKE ONE TABLET BY MOUTH EVERY 3 HOURS NEEDED MAXIMUM DAILY DOSE = 6 TABLETS SOLD: 02/17/2021 [facility] 325 mg 11/14/2020 12:00:00 AM EDT tablet 180 TAKE ONE TABLET BY MOUTH EVERY 3 HOURS NEEDED MAXIMUM DAILY DOSE = 6 TABLETS TAKE ONE TABLET BY MOUTH EVERY 3 HOURS NEEDED MAXIMUM DAILY DOSE = 6 TABLETS SOLD: 01/23/2021 [facility] 325 mg 11/14/2020 12:00:00 AM EDT tablet 180 TAKE ONE TABLET BY MOUTH EVERY 3 HOURS NEEDED MAXIMUM DAILY DOSE = 6 TABLETS TAKE ONE TABLET BY MOUTH EVERY 3 HOURS NEEDED MAXIMUM DAILY DOSE = 6 TABLETS SOLD: 12/04/2020 [facility] 200 mg calcium (500 mg) 11/07/2020 12:00:00 AM EDT tablet,ch ewable 180 TAKE 2 TABLETS BY MOUTH THREE TIMES A DAY TAKE 2 TABLETS BY MOUTH THREE TIMES A DAY SOLD: 01/16/2021 [facility] Calcium Carbonate 500 MG Chewable Tablet Calcium Antacid 11/07/2020 12:00:00 AM EDT active [facility] ([facility]) 30 mg 11/07/2020 12:00:00 AM EDT tablet 60 TAKE ONE TABLET BY MOUTH TWICE A DAY TAKE ONE TABLET BY MOUTH TWICE A DAY SOLD: 12/19/2020 [facility] 30 mg 11/07/2020 12:00:00 AM EDT tablet 60 TAKE ONE TABLET BY MOUTH TWICE A DAY TAKE ONE TABLET BY MOUTH TWICE A DAY SOLD: 02/17/2021 [facility] 30 mg 11/07/2020 12:00:00 AM EDT tablet 60 TAKE ONE TABLET BY MOUTH TWICE A DAY TAKE ONE TABLET BY MOUTH TWICE A DAY SOLD: 01/23/2021 [facility] 30 mg 11/07/2020 12:00:00 AM EDT tablet 60 TAKE ONE TABLET BY MOUTH TWICE A DAY TAKE ONE TABLET BY MOUTH TWICE A DAY SOLD: 03/20/2021 [facility] NITROFURANTOIN, MACROCRYSTALS 25 MG / Ni trofurantoin, Monohydrate 75 MG Oral Capsule 100 mg NITROFURANTOIN MONOHYD/M-CRYST 11/07/2020 12:00:00 AM EDT ca psule 14 TAKE ONE CAPSULE BY MOUTH TWICE A DAY FOR 7 DAYS TAKE ONE CAPSULE BY MOUTH TWICE A DAY FOR 7 DAYS SOLD: 11/07/2020 [facility] 200 mg calcium (500 mg) 11/07/2020 12:00:00 AM EDT tablet,ch ewable 180 TAKE 2 TABLETS BY MOUTH THREE TIMES A DAY TAKE 2 TABLETS BY MOUTH THREE TIMES A DAY SOLD: 03/20/2021 [facility] 30 mg 11/07/2020 12:00:00 AM EDT tablet 60 TAKE ONE TABLET BY MOUTH TWICE A DAY TAKE ONE TABLET BY MOUTH TWICE A DAY SOLD: 04/11/2021 [facility] 200 mg calcium (500 mg) 11/07/2020 12:00:00 AM EDT tablet,ch ewable 180 TAKE 2 TABLETS BY MOUTH THREE TIMES A DAY TAKE 2 TABLETS BY MOUTH THREE TIMES A DAY SOLD: 12/19/2020 [facility] 200 mg calcium (500 mg) 11/07/2020 12:00:00 AM EDT tablet,ch ewable 180 TAKE 2 TABLETS BY MOUTH THREE TIMES A DAY TAKE 2 TABLETS BY MOUTH THREE TIMES A DAY SOLD: 02/18/2021 [facility] 200 mg calcium (500 mg) 11/07/2020 12:00:00 AM EDT tablet,ch ewable 180 TAKE 2 TABLETS BY MOUTH THREE TIMES A DAY TAKE 2 TABLETS BY MOUTH THREE TIMES A DAY SOLD: 11/07/2020 [facility] 30 mg 11/07/2020 12:00:00 AM EDT tablet 60 TAKE ONE TABLET BY MOUTH TWICE A DAY TAKE ONE TABLET BY MOUTH TWICE A DAY SOLD: 11/07/2020 [facility] NITROFURANTOIN, MACROCRYSTALS 25 MG / Ni trofurantoin, Monohydrate 75 MG Oral Capsule Nitrofurantoin Monohyd Macro 11/07/2020 12:00:00 AM EDT ORAL active [facility] ([facility]) 8 % 11/06/2020 12:00:00 AM EDT solution 6 APPLY TO AFFECTED AREA(S) ON NAILS ONCE DAILY APPLY TO AFFECTED AREA(S) ON NAILS ONCE DAILY SOLD: 11/07/2020 [facility] NITROFURANTOIN, MACROCRYSTALS 25 MG / Ni trofurantoin, Monohydrate 75 MG Oral Capsule 100 mg NITROFURANTOIN MONOHYD/M-CRYST 11/03/2020 12:00:00 AM EDT ca psule 10 TAKE ONE CAPSULE BY MOUTH TWICE A DAY FOR 5 DAYS TAKE ONE CAPSULE BY MOUTH TWICE A DAY FOR 5 DAYS SOLD: 11/03/2020 [facility] DIAPER,BRIEF,ADULT, DISPOSABLE 10/31/2020 12:00:00 AM EDT mi sc 234 USE DIRECTED 8 TIMES PER DAY USE DIRECTED 8 TIMES PER DAY SOLD: 03/13/2021 [facility] DIAPER,BRIEF,ADULT, DISPOSABLE 10/31/2020 12:00:00 AM EDT mi sc 234 USE DIRECTED 8 TIMES PER DAY USE DIRECTED 8 TIMES PER DAY SOLD: 02/12/2021 [facility] DIAPER,BRIEF,ADULT, DISPOSABLE 10/31/2020 12:00:00 AM EDT mi sc 234 USE DIRECTED 8 TIMES PER DAY USE DIRECTED 8 TIMES PER DAY SOLD: 01/09/2021 [facility] DIAPER,BRIEF,ADULT, DISPOSABLE 10/31/2020 12:00:00 AM EDT mi sc 234 USE DIRECTED 8 TIMES PER DAY USE DIRECTED 8 TIMES PER DAY SOLD: 11/21/2020 [facility] DIAPER,BRIEF,ADULT, DISPOSABLE 10/31/2020 12:00:00 AM EDT mi sc 234 USE DIRECTED 8 TIMES PER DAY USE DIRECTED 8 TIMES PER DAY SOLD: 10/31/2020 [facility] DIAPER,BRIEF,ADULT, DISPOSABLE 10/31/2020 12:00:00 AM EDT mi sc 234 USE DIRECTED 8 TIMES PER DAY USE DIRECTED 8 TIMES PER DAY SOLD: 12/12/2020 [facility] 250 mg 10/29/2020 12:00:00 AM EDT tablet 6 TAKE ONE TABLET BY MOUTH TWICE A DAY TAKE ONE TABLET BY MOUTH TWICE A DAY SOLD: 10/31/2020 [facility] 800-160 mg 10/14/2020 12:00:00 AM EDT tablet 14 TAKE ONE TABLET BY MOUTH TWICE A DAY TAKE ONE TABLET BY MOUTH TWICE A DAY SOLD: 10/14/2020 [facility] 5 mg 10/09/2020 12:00:00 AM EDT tablet 180 TAKE ONE TABLET BY MOUTH TWICE A DAY TAKE ONE TABLET BY MOUTH TWICE A DAY SOLD: 04/03/2021 [facility] 5 mg 10/09/2020 12:00:00 AM EDT tablet 180 TAKE ONE TABLET BY MOUTH TWICE A DAY TAKE ONE TABLET BY MOUTH TWICE A DAY SOLD: 01/02/2021 [facility] 5 mg 10/09/2020 12:00:00 AM EDT tablet 180 TAKE ONE TABLET BY MOUTH TWICE A DAY TAKE ONE TABLET BY MOUTH TWICE A DAY SOLD: 10/10/2020 [facility] 0.5 mg 10/03/2020 12:00:00 AM EDT tablet 60 TAKE ONE TABLET BY MOUTH TWICE A DAY MAXIMUM DAILY DOSE = 2 TABLETS TAKE ONE TABLET BY MOUTH TWICE A DAY MAX IMUM DAILY DOSE = 2 TABLETS SOLD: 10/03/2020 [facility] 7.5-325 mg 10/03/2020 12:00:00 AM EDT tablet 120 TAKE ONE TABLET BY MOUTH EVERY 6 HOURS NEEDED MAXIMUM DAILY DOSE = 4 TABLETS TAKE ONE TABLET BY MOUTH EVERY 6 HOURS NEEDED MAXIMUM DAILY DOSE = 4 TABLETS SOLD: 10/03/2020 [facility] 23 X 36 " 09/26/2020 12:00:00 AM EST pad 300 APPLY TO BED NEEDED FOR UP TO 10 A DAY APPLY TO BED NEEDED FOR UP TO 10 A DAY SOLD: 11/21/2020 [facility] 23 X 36 " 09/26/2020 12:00:00 AM EST pad 300 APPLY TO BED NEEDED FOR UP TO 10 A DAY APPLY TO BED NEEDED FOR UP TO 10 A DAY SOLD: 11/28/2020 [facility] 23 X 36 " 09/26/2020 12:00:00 AM EST pad 300 APPLY TO BED NEEDED FOR UP TO 10 A DAY APPLY TO BED NEEDED FOR UP TO 10 A DAY SOLD: 10/24/2020 [facility] 23 X 36 " 09/26/2020 12:00:00 AM EST pad 150 APPLY TO BED NEEDED FOR UP TO 10 A DAY APPLY TO BED NEEDED FOR UP TO 10 A DAY SOLD: 10/31/2020 [facility] 23 X 36 " 09/26/2020 12:00:00 AM EST pad 300 APPLY TO BED NEEDED FOR UP TO 10 A DAY APPLY TO BED NEEDED FOR UP TO 10 A DAY SOLD: 09/29/2020 [facility] 25 mg 09/26/2020 12:00:00 AM EST tablet 30 TAKE ONE TABLET BY MOUTH EVERY DAY (BENADRYL) TAKE ONE TABLET BY MOUTH EVERY DAY (BENADRYL) SOLD: 09/26/2020 [facility] 23 X 36 " 09/26/2020 12:00:00 AM EST pad 150 APPLY TO BED NEEDED FOR UP TO 10 A DAY APPLY TO BED NEEDED FOR UP TO 10 A DAY SOLD: 10/17/2020 [facility] 800-160 mg 09/20/2020 12:00:00 AM EST tablet 14 TAKE ONE TABLET BY MOUTH TWICE A DAY TAKE ONE TABLET BY MOUTH TWICE A DAY SOLD: 09/20/2020 [facility] Sulfamethoxazole 800 MG / Trimethoprim 160 MG Oral Tab let Sulfamethoxazole/Trimethoprim DS 09/20/2020 12:00:00 AM EST ORAL active [facility] ([facility]) 2.5-0.025 mg 09/12/2020 12:00:00 AM EST tablet [...] AM EST active [facility] ([facility]) 1 gram 09/05/2020 12:00:00 AM EST tablet 120 TAKE THREE TABLETS BY MOUTH TWICE A DAY MAY INCREASE DURING EPISODES OF EXTREME DIARRHEA MAXIMUM DAILY DOSE = 9 TABLETS TAKE THREE TABLETS BY MOUTH TWICE A DAY MAY INCREASE DURING EPISODES OF EXTREME DIARRHEA MAXIMUM DAILY DOSE = 9 TABLETS SOLD: 05/01/2021 [facility] 1 gram 09/05/2020 12:00:00 AM EST tablet 180 TAKE THREE TABLETS BY MOUTH TWICE A DAY MAY INCREASE DURING EPISODES OF EXTREME DIARRHEA MAXIMUM DAILY DOSE = 9 TABLETS TAKE THREE TABLETS BY MOUTH TWICE A DAY MAY INCREASE DURING EPISODES OF EXTREME DIARRHEA MAXIMUM DAILY DOSE = 9 TABLETS SOLD: 01/23/2021 [facility] 1 gram 09/05/2020 12:00:00 AM EST tablet 120 TAKE THREE TABLETS BY MOUTH TWICE A DAY MAY INCREASE DURING EPISODES OF EXTREME DIARRHEA MAXIMUM DAILY DOSE = 9 TABLETS TAKE THREE TABLETS BY MOUTH TWICE A DAY MAY INCREASE DURING EPISODES OF EXTREME DIARRHEA MAXIMUM DAILY DOSE = 9 TABLETS SOLD: 03/07/2021 [facility] 1 gram 09/05/2020 12:00:00 AM EST tablet 180 TAKE THREE TABLETS BY MOUTH TWICE A DAY MAY INCREASE DURING EPISODES OF EXTREME DIARRHEA MAXIMUM DAILY DOSE = 9 TABLETS TAKE THREE TABLETS BY MOUTH TWICE A DAY MAY INCREASE DURING EPISODES OF EXTREME DIARRHEA MAXIMUM DAILY DOSE = 9 TABLETS SOLD: 11/28/2020 [facility] olanzapine 5 MG Oral Tablet OLANZAPINE 09/03/2020 12:00:00 AM EST tabl et 60 TAKE ONE TABLET BY MOUTH THREE TIMES A DAY TAKE ONE TABLET BY MOUTH THREE TIMES A DAY SOLD: 02/06/2021 [facility] 25 mg 09/03/2020 12:00:00 AM EST tablet 30 TAKE ONE TABLET BY MOUTH EVERY DAY (BENADRYL) TAKE ONE TABLET BY MOUTH EVERY DAY (BENADRYL) SOLD: 09/05/2020 [facility] olanzapine 5 MG Oral Tablet OLANZAPINE 09/03/2020 12:00:00 AM EST tabl et 90 TAKE ONE TABLET BY MOUTH THREE TIMES A DAY TAKE ONE TABLET BY MOUTH THREE TIMES A DAY SOLD: 10/03/2020 [facility] olanzapine 5 MG Oral Tablet OLANZAPINE 09/03/2020 12:00:00 AM EST tabl et 90 TAKE ONE TABLET BY MOUTH THREE TIMES A DAY TAKE ONE TABLET BY MOUTH THREE TIMES A DAY SOLD: 11/07/2020 [facility] olanzapine 5 MG Oral Tablet OLANZAPINE 09/03/2020 12:00:00 AM EST tabl et 90 TAKE ONE TABLET BY MOUTH THREE TIMES A DAY TAKE ONE TABLET BY MOUTH THREE TIMES A DAY SOLD: 09/05/2020 [facility] olanzapine 5 MG Oral Tablet OLANZAPINE 09/03/2020 12:00:00 AM EST tabl et 90 TAKE ONE TABLET BY MOUTH THREE TIMES A DAY TAKE ONE TABLET BY MOUTH THREE TIMES A DAY SOLD: 04/03/2021 [facility] olanzapine 5 MG Oral Tablet OLANZAPINE 09/03/2020 12:00:00 AM EST tabl et 90 TAKE ONE TABLET BY MOUTH THREE TIMES A DAY TAKE ONE TABLET BY MOUTH THREE TIMES A DAY SOLD: 02/27/2021 [facility] 0.5 mg 08/30/2020 12:00:00 [...] BEFORE BED SOLD: 08/15/2020 [facility] 125 mg 08/12/2020 12:00:00 AM EST tablet,chewable 100 CHEW 1 TABLET BY MOUTH AFTER EACH MEAL AND BEFORE BED CHEW 1 TABLET BY MOUTH AFTER EACH MEAL A ND BEFORE BED SOLD: 10/31/2020 [facility] 125 mg 08/12/2020 12:00:00 AM EST tablet,chewable 100 CHEW 1 TABLET BY MOUTH AFTER EACH MEAL AND BEFORE BED CHEW 1 TABLET BY MOUTH AFTER EACH MEAL A ND BEFORE BED SOLD: 11/27/2020 [facility] 125 mg 08/12/2020 12:00:00 AM EST tablet,chewable 100 CHEW 1 TABLET BY MOUTH AFTER EACH MEAL AND BEFORE BED CHEW 1 TABLET BY MOUTH AFTER EACH MEAL A ND BEFORE BED SOLD: 09/05/2020 [facility] 125 mg 08/12/2020 12:00:00 AM EST tablet,chewable 85 CHEW 1 TABLET BY MOUTH AFTER EACH MEAL AND BEFORE BED CHEW 1 TABLET BY MOUTH AFTER EACH MEAL A ND BEFORE BED SOLD: 09/20/2020 [facility] benzonatate 100 MG Oral [...] EACH MEAL A ND BEFORE BED SOLD: 10/10/2020 [facility] 25 mg 08/08/2020 12:00:00 AM EST tablet 30 TAKE ONE TABLET BY MOUTH EVERY DAY (BENADRYL) TAKE ONE TABLET BY MOUTH EVERY DAY (BENADRYL) SOLD: 08/08/2020 [facility] 7.5-325 mg 08/08/2020 12:00:00 AM EST tablet 120 TAKE ONE TABLET BY MOUTH EVERY 6 HOURS NEEDED MAXIMUM DAILY DOSE = 4 TABLETS TAKE ONE TABLET BY MOUTH EVERY 6 HOURS NEEDED MAXIMUM DAILY DOSE = 4 TABLETS SOLD: 08/15/2020 [facility] 150 mg 08/01/2020 12:00:00 AM [...] ONE TABLET BY MOUTH EVERY DAY SOLD: 10/17/2020 [facility] 2 mg 07/27/2020 12:00:00 AM EST tablet 90 TAKE ONE TABLET BY MOUTH EVERY DAY TAKE ONE TABLET BY MOUTH EVERY DAY SOLD: 07/28/2020 [facility] 2 mg 07/27/2020 12:00:00 AM EST tablet 90 TAKE ONE TABLET BY MOUTH EVERY DAY TAKE ONE TABLET BY MOUTH EVERY DAY SOLD: 02/27/2021 [facility] 23 X 36 " 07/19/2020 [...] FOR UP TO 10 A DAY SOLD: 09/19/2020 [facility] 23 X 36 " 07/19/2020 12:00:00 AM EST pad 300 APPLY TO BED NEEDED FOR UP TO 10 A DAY APPLY TO BED NEEDED FOR UP TO 10 A DAY SOLD: 08/29/2020 [facility] 23 X 36 " 07/19/2020 [...] 10 A DAY SOLD: 07/19/2020 [facility] olanzapine 5 MG Oral Tablet OLANZAPINE 07/18/2020 12:00:00 AM EST tabl et 60 TAKE ONE TABLET BY MOUTH TWICE A DAY (ZYPREXA) TAKE ONE TABLET BY MOUTH TWICE A DAY (ZYPREXA) SOLD: 07/18/2020 [facility] olanzapine 5 MG Oral Tablet OLANZAPINE 07/18/2020 12:00:00 AM EST tabl et 60 TAKE ONE TABLET BY MOUTH TWICE A DAY (ZYPREXA) TAKE ONE TABLET BY MOUTH TWICE A DAY (ZYPREXA) SOLD: 08/15/2020 [facility] 2.5 % 07/15/2020 12:00:00 AM EST ointment 40 APPLY TO AFFECTED AREA(S) ON LEFT ARM TWO TIMES A DAY APPLY TO AFFECTED AREA(S) ON LEFT ARM TWO TIMES A DAY SOLD: 07/18/2020 [facility] olanzapine 5 MG Oral Tablet Olanzapine 07/12/2020 [...] MOUTH TWICE A DAY NEEDED SOLD: 08/08/2020 [facility] Cyclobenzaprine hydrochloride 10 MG Oral Tablet CYCLOBENZAPR INE HCL 07/11/2020 12:00:00 AM EST tablet 60 TAKE ONE TABLET BY MOUTH TWICE A DAY NEEDED TAKE ONE TABLET BY MOUTH TWICE A DAY NEEDED SOLD: 09/12/2020 [facility] 25 mg 07/11/2020 12:00:00 AM EST tablet 30 TAKE ONE TABLET BY MOUTH EVERY DAY (BENADRYL) TAKE ONE TABLET BY MOUTH EVERY DAY (BENADRYL) SOLD: 07/11/2020 [facility] Cyclobenzaprine hydrochloride 10 MG Oral Tablet CYCLOBENZAPR INE HCL 07/11/2020 12:00:00 AM EST tablet 60 TAKE ONE TABLET BY MOUTH TWICE A DAY NEEDED TAKE ONE TABLET BY MOUTH TWICE A DAY NEEDED SOLD: 10/10/2020 [facility] Cyclobenzaprine hydrochloride 10 MG Oral Tablet CYCLOBENZAPR INE HCL 07/11/2020 12:00:00 AM EST tablet 60 TAKE ONE TABLET BY MOUTH TWICE A DAY NEEDED TAKE ONE TABLET BY MOUTH TWICE A DAY NEEDED SOLD: 11/07/2020 [facility] Cyclobenzaprine hydrochloride 10 MG Oral Tablet CYCLOBENZAPR INE HCL 07/11/2020 12:00:00 AM EST tablet 60 TAKE ONE TABLET BY MOUTH TWICE A DAY NEEDED TAKE ONE TABLET BY MOUTH TWICE A DAY NEEDED SOLD: 07/18/2020 [facility] 250 mg 07/01/2020 12:00:00 AM [...] = FOUR TABLETS SOLD: 07/04/2020 [facility] 25 mg 06/07/2020 12:00:00 AM [...] = SIX TABLETS SOLD: 08/08/2020 [facility] 325 mg 06/07/2020 12:00:00 AM [...] MAXIMUM DAILY DOSE = SIX TABLETS SOLD: 10/10/2020 [facility] 325 mg 06/07/2020 12:00:00 AM EST tablet 180 TAKE ONE TABLET BY MOUTH EVERY 3 HOURS NEEDED MAXIMUM DAILY DOSE = SIX TABLETS TAKE ONE TABLET BY MOUTH EVERY 3 HOURS NEEDED MAXIMUM DAILY DOSE = SIX TABLETS SOLD: 06/13/2020 [facility] 325 mg 06/07/2020 12:00:00 AM EST tablet 180 TAKE ONE TABLET BY MOUTH EVERY 3 HOURS NEEDED MAXIMUM DAILY DOSE = SIX TABLETS TAKE ONE TABLET BY MOUTH EVERY 3 HOURS NEEDED MAXIMUM DAILY DOSE = SIX TABLETS SOLD: 07/11/2020 [facility] Acetaminophen 325 MG Oral Tablet Acetaminophen 06/06/2020 12:00:00 AM EST active [facility] ([facility]) Meclizine Hydrochloride 25 MG Oral Tablet MECLIZINE HCL 05/30/2020 12:00:00 AM EST tablet 90 TAKE ONE TABLET BY MOUTH VICKI RY 8 HOURS NEEDED FOR DIZZINESS TAKE ONE TABLET BY MOUTH EVERY 8 HOURS NEEDED FOR DIZZINESS SOLD: 10/10/2020 [facility] Meclizine Hydrochloride 25 MG Oral [...] EVERY 8 HOURS NEEDED FOR DIZZINESS SOLD: 11/28/2020 [facility] Meclizine Hydrochloride 25 MG Oral Tablet MECLIZINE HCL 05/30/2020 12:00:00 AM EST tablet 90 TAKE ONE TABLET BY MOUTH VICKI RY 8 HOURS NEEDED FOR DIZZINESS TAKE ONE TABLET BY MOUTH EVERY 8 HOURS NEEDED FOR DIZZINESS SOLD: 05/30/2020 [facility] 200 mg calcium (500 mg) 05/16/2020 12:00:00 AM EDT tablet,ch ewable 180 TAKE 2 TABLETS BY MOUTH THREE TIMES A DAY TAKE 2 TABLETS BY MOUTH THREE TIMES A DAY SOLD: 10/10/2020 [facility] 200 mg calcium (500 mg) 05/16/2020 12:00:00 AM EDT tablet,ch ewable 180 TAKE 2 TABLETS BY MOUTH THREE TIMES A DAY TAKE 2 TABLETS BY MOUTH THREE TIMES A DAY SOLD: 09/05/2020 [facility] 200 mg calcium (500 mg) 05/16/2020 12:00:00 AM EDT tablet,ch ewable 180 TAKE 2 TABLETS BY MOUTH THREE TIMES A DAY TAKE 2 TABLETS BY MOUTH THREE TIMES A DAY SOLD: 05/16/2020 [facility] 25 mg 05/16/2020 12:00:00 AM EDT tablet 30 TAKE ONE TABLET BY MOUTH EVERY DAY (BENADRYL) TAKE ONE TABLET BY MOUTH EVERY DAY (BENADRYL) SOLD: 05/16/2020 [facility] 200 mg calcium [...] TIMES A DAY SOLD: 06/13/2020 [facility] 0.5 mg 05/16/2020 12:00:00 AM [...] TIMES A DAY SOLD: 08/08/2020 [facility] 23 X 36 " 05/09/2020 [...] TIMES PER DAY SOLD: 07/04/2020 [facility] 23 X 36 " 05/09/2020 [...] TIMES PER DAY SOLD: 05/30/2020 [facility] 250 mg 05/07/2020 12:00:00 AM EDT tablet,delayed release (DR/EC) 180 TAKE ONE TABLET BY MOUTH TWICE A DAY TAKE ONE TABLET BY MOUTH TWICE A DAY SOLD: 03/20/2021 [facility] DIAPER,BRIEF,ADULT, DISPOSABLE 05/07/2020 12:00:00 AM EDT mi sc 240 CHANGE NEEDED UP TO 8 TIMES A DAY CHANGE NEEDED UP TO 8 TIMES A DAY SOLD: 05/09/2020 [facility] DIAPER,BRIEF,ADULT, DISPOSABLE [...] DIAPER,BRIEF,ADULT, DISPOSABLE 05/07/2020 12:00:00 AM EDT mi nd 240 CHANGE NEEDED UP TO 8 TIMES A DAY CHANGE NEEDED UP TO 8 TIMES A DAY SOLD: 06/06/2020 [facility] DIAPER,BRIEF,ADULT, DISPOSABLE 05/07/2020 12:00:00 AM EDT mi nd 234 CHANGE NEEDED UP TO 8 TIMES A DAY CHANGE NEEDED UP TO 8 TIMES A DAY SOLD: 10/10/2020 [facility] 2 mg 05/07/2020 12:00:00 AM EDT tablet 90 TAKE ONE TABLET BY MOUTH EVERY DAY TAKE ONE TABLET BY MOUTH EVERY DAY SOLD: 05/09/2020 [facility] 250 mg 05/07/2020 12:00:00 AM EDT tablet,delayed release (DR/EC) 180 TAKE ONE TABLET BY MOUTH TWICE A DAY TAKE ONE TABLET BY MOUTH TWICE A DAY SOLD: 05/09/2020 [facility] DIAPER,BRIEF,ADULT, DISPOSABLE 05/07/2020 12:00:00 AM EDT [facility] [place] NEEDED UP TO 8 TIMES A DAY CHANGE NEEDED UP TO 8 TIMES A DAY SOLD: 08/17/2020 [facility] 250 mg 05/07/2020 12:00:00 AM [...] NEEDED FOR NAUSEA SOLD: 06/20/2020 [facility] Ondansetron 4 MG Disintegrating Oral Tablet ONDANSETRON 05/05/2020 12:00:00 AM EDT tablet,disintegrating 45 DISSOLVE O NE TABLET ON TONGUE EVERY 6 HOURS NEEDED FOR NAUSEA DISSOLVE ONE TABLET ON TONGUE EVERY 6 HO URS NEEDED FOR NAUSEA SOLD: 11/21/2020 [facility] 4 mg 05/05/2020 12:00:00 AM EDT tablet,disintegrating 4 5 DISSOLVE ONE TABLET ON TONGUE EVERY 6 HOURS NEEDED FOR NAUSEA DISSOLVE ONE TABLET ON TONGUE EVERY 6 HOURS NEEDED FOR NAUSEA SOLD: 05/09/2020 [facility] 4 mg 05/05/2020 12:00:00 AM [...] EVERY 6 HOURS NEEDED FOR NAUSEA SOLD: 10/17/2020 [facility] 2.5-0.025 mg 05/02/2020 12:00:00 AM EDT tablet 30 TAKE ONE TABLET BY MOUTH EVERY DAY NEEDED FOR DIARRHEA MAXIMUM DAILY DOSE = ONE TABLET TAKE ONE TABLET BY MOUTH EVERY DAY NEEDED FOR DIARRHEA MAXIMUM DAILY DOSE = ONE TABLET SOLD: 05/02/2020 [facility] 0.5 mg 05/01/2020 12:00:00 AM EDT tablet 14 TAKE ONE TABLET BY MOUTH TWICE A DAY NEEDED FOR ANXIETY/ AGITATION MAXIMUM DAILY DOSE = 2 TABLETS TAKE ONE TABLET BY MOUTH TWICE A DAY NEEDED FOR ANXIETY/ AGITATION MAXIMUM DAILY DOSE = 2 TABLETS SOLD: 05/02/2020 [facility] olanzapine 5 MG Oral Tablet OLANZAPINE 05/01/2020 [...] TWICE A DAY SOLD: 05/02/2020 [facility] 250 mg 05/01/2020 12:00:00 AM EDT tablet,delayed release (DR/EC) 21 TAKE ONE TABLET BY MOUTH THREE TIMES A DAY FOR MOOD STABILIZER (DEPAKOTE) TAKE ONE TABLET BY MOUTH THREE TIMES A DAY FOR MOOD STABILIZER (DEPAKOTE) SOLD: 05/02/2020 [facility] olanzapine 5 MG Oral Tablet Olanzapine 05/01/2020 12:00:00 AM EDT completed [facility] ([facility]) 2 mg 05/01/2020 12:00:00 AM EDT tablet 7 TAKE ONE TABLET BY MOUTH EVERY DAY TAKE ONE TABLET BY MOUTH EVERY DAY SOLD: 05/02/2020 [facility] olanzapine 5 MG Oral Tablet OLANZAPINE 05/01/2020 12:00:00 AM EDT tabl et 14 TAKE ONE TABLET BY MOUTH TWICE A DAY TAKE ONE TABLET BY MOUTH TWICE A DAY SOLD: 06/20/2020 [facility] 7.5-325 mg 04/19/2020 12:00:00 AM EDT tablet [...] TABLET BY MOUTH TWICE A DAY SOLD: 09/19/2020 [facility] 30 mg 04/18/2020 12:00:00 AM EDT tablet 60 TAKE ONE TABLET BY MOUTH TWICE A DAY TAKE ONE TABLET BY MOUTH TWICE A DAY SOLD: 05/16/2020 [facility] 30 mg 04/18/2020 12:00:00 AM EDT tablet 60 TAKE ONE TABLET BY MOUTH TWICE A DAY TAKE ONE TABLET BY MOUTH TWICE A DAY SOLD: 04/18/2020 [facility] 30 mg 04/18/2020 12:00:00 AM EDT tablet 60 TAKE ONE TABLET BY MOUTH TWICE A DAY TAKE ONE TABLET BY MOUTH TWICE A DAY SOLD: 06/27/2020 [facility] 125 mg 04/14/2020 12:00:00 AM [...] BEFORE BED SOLD: 06/20/2020 [facility] 125 mg 04/14/2020 12:00:00 [...] BEFORE BED SOLD: 07/25/2020 [facility] 25 mg 04/04/2020 12:00:00 AM EDT tablet 30 TAKE ONE TABLET BY MOUTH EVERY DAY (BENADRYL) TAKE ONE TABLET BY MOUTH EVERY DAY (BENADRYL) SOLD: 04/04/2020 [facility] Diphenhydramine Hydrochloride 25 MG Oral Tablet Diphenhydram ine HCL 04/04/2020 12:00:00 AM EDT active [facility] ([facility]) 300 mg 03/08/2020 12:00:00 AM EDT capsule [...] TWICE A DAY SOLD: 03/07/2020 [facility] olanzapine 2.5 MG [...] MOUTH AT BEDTIME SOLD: 03/07/2020 [facility] 137 mcg (0.1 %) 01/27/2020 12:00:00 AM EDT aerosol,spray 30 SPRAY TWO SPRAYS IN ONE NOSTRIL ONCE DAILY SPRAY TWO SPRAYS IN ONE NOSTRIL ONCE DAILY SOLD: 05/16/2020 [facility] 50 mcg/actuation 01/25/2020 12:00:00 AM EDT spray,suspension 16 SPRAY TWO SPRAYS IN EACH NOSTRIL EVERY DAY SPRAY TWO SPRAYS IN EACH NOSTRIL EVERY DAY SOLD: 06/27/2020 [facility] Cyclobenzaprine hydrochloride 10 MG Oral [...] TWICE A DAY SOLD: 05/16/2020 [facility] 325 mg 01/04/2020 12:00:00 AM [...] = SIX TABLETS SOLD: 05/16/2020 [facility] 2 mg 12/28/2019 12:00:00 AM EDT capsule 150 TAKE 1 CAPSULE BY MOUTH AFTER EACH LOOSE STOOL MAXIMUM DAILY DOSE = 5 CAPSULES TAKE 1 CAPSULE BY MOUTH AFTER EACH LOOSE STOOL MAXIMUM DAILY DOSE = 5 CAPSULES SOLD: 05/02/2020 [facility] 30 mg 12/21/2019 12:00:00 AM EDT tablet 60 TAKE ONE TABLET BY MOUTH TWICE A DAY TAKE ONE TABLET BY MOUTH TWICE A DAY SOLD: 03/21/2020 [facility] 23 X 36 " 12/20/2019 12:00:00 AM EDT pad 300 APPLY TO BED NEEDED UP TO 10 TIMES DAILY APPLY TO BED NEEDED UP TO 10 TIMES DAILY SOLD: 03/14/2020 [facility] 23 X 36 " 12/20/2019 12:00:00 AM EDT pad 150 APPLY TO BED NEEDED UP TO 10 TIMES DAILY APPLY TO BED NEEDED UP TO 10 TIMES DAILY SOLD: 03/07/2020 [facility] 200 mg calcium (500 mg) 11/26/2019 12:00:00 AM EDT tablet,ch ewable 180 TAKE TWO TABLETS BY MOUTH THREE TIMES A DAY TAKE TWO TABLETS BY MOUTH THREE TIMES A DAY SOLD: 04/11/2020 [facility] DIAPER,BRIEF,ADULT, DISPOSABLE 11/15/2019 12:00:00 AM EDT mi sc 240 CHANGE NEEDED UP TO 8 TIMES A DAY CHANGE NEEDED UP TO 8 TIMES A DAY SOLD: 04/11/2020 [facility] DIAPER,BRIEF,ADULT, DISPOSABLE 11/15/2019 12:00:00 AM EDT mi sc 240 CHANGE NEEDED UP TO 8 TIMES A DAY CHANGE NEEDED UP TO 8 TIMES A DAY SOLD: 03/14/2020 [facility] 23 X 36 " 10/27/2019 [...] TIMES PER DAY SOLD: 04/04/2020 [facility] 23 X 36 " 10/27/2019 12:00:00 AM EDT pad 150 APPLY TO BED NEEDED UP TO 10 TIMES PER DAY APPLY TO BED NEEDED UP TO 10 TIMES PER DAY SOLD: 03/28/2020 [facility] 5 mg 10/12/2019 12:00:00 AM EDT tablet 180 TAKE ONE TABLET BY MOUTH TWICE A DAY TAKE ONE TABLET BY MOUTH TWICE A DAY SOLD: 07/18/2020 [facility] 125 mg 10/04/2019 12:00:00 AM EDT tablet,chewable 100 TAKE 1 TABLET BY MOUTH AFTER EACH MEAL AND BEFORE BED TAKE 1 TABLET BY MOUTH AFTER EACH MEAL A ND BEFORE BED SOLD: 03/21/2020 [facility] 25 mg 09/28/2019 12:00:00 AM EDT tablet 90 TAKE ONE TABLET BY MOUTH EVERY 8 HOURS NEEDED FOR DIZZINESS TAKE ONE TABLET BY MOUTH EVERY 8 HOURS A S NEEDED FOR DIZZINESS SOLD: 04/04/2020 [facility] 1 gram 07/27/2019 12:00:00 AM EST tablet 150 TAKE THREE TABLETS BY MOUTH TWICE A DAY MAY INCREASE DURING EPISODES OF EXTREME DIARRHEA MAXIMUM DAILY DOSE = 9 TABLETS TAKE THREE TABLETS BY MOUTH TWICE A DAY MAY INCREASE DURING EPISODES OF EXTREME DIARRHEA MAXIMUM DAILY DOSE = 9 TABLETS SOLD: 07/28/2020 [facility] 0.2 % 06/04/2019 12:00:00 AM EST drops 2 INSTILL ONE DROP IN EACH EYE ONCE DAILY DIRECTED INSTILL ONE DROP IN EACH EYE ONCE DAILY DIRECTED SO LD: 04/04/2020 [facility] Insurance Providers Payer name Policy type / Coverage type Policy ID Covered constitution party ID Covered constitution party's relationship to adams Policy [place] Plan Information Medicare Natl Govt [employer]ic Medicare Primary [id number] Self [id number] Medicare Natl Govt Servic Medicare Primary [id number] Self [id number] Medicare Natl Govt Servic Medicare Primary [id number] Self [id number] Medicare Natl Govt Servic Medicare Primary [id number] Self [id number] Medicare Natl Govt Servic Medicare Primary [id number] Self [id number] Medicare - NGS Medicare Primary [id number] Self [id number] Medicare Natl Govt Servic Medicare Primary [id number] Self Medicare Natl Govt Servic Medicare Primary [id number] Self [id number] Medicare - NGS Medicare Primary [id number] Self [id number] Medicare Natl Govt Servic Medicare Primary [id number] Self [id number] Medicare Natl Govt Servic Medicare Primary [id number] Self [id number] Medicare Natl Govt [facility] Medicare Primary [id number] Self [id number] [facility] B [id number] Self MEDICARE [id number] SP [id number] BS [place] [employer] Medigap Part B [id number] Self [id number] BS [place] [employer] Commercial [phone] [id number] Self [id number] MEDICARE [id number] SP [id number] [place] Primary [id number] Self Medicaid [place] Medig[place] Part B [id number] Self MEDICAID [id number] [facility] [id number] [id number] Self [id number] MEDICAID M [id number] S [id number] MEDICAID [id number] SP [id number] ANS-Medicare Part B [id number] ANSI-Medicaid [id number] ANSI-Medicare Part B [id number] ANSI-Medicaid [id number] ANSI-Medicare Part B [id number] ANSI-Medicaid [id number] ANSI-Medicare Part B [id number] ANSI-Medicaid [id number] ANSI-Medicaid [id number] ANSI-Medicare Part B [id number] MEDICARE [id number] SP [id number] ANSI-Medicare Part B [id number] ANSI-Medicaid [id number] Medicaid Medigap Part B [id number] 0.0 Self [id number] [place] [id number] Self [id number] ANSI-Medicaid [id number] ANSI-Medicare Part B [id number] ANSI-Medicare Part B [id number] ANSI-Medicaid [id number] MEDICARE C [id number] S [id number] A Medicaid Medigap Part B [id number] [id number] Self [id number] Medicaid Medigap Part B [id number] 0.0 Self [id number] Medicaid Medigap Part B [id number] 0.0 Self [id number] Medicaid Medigap Part B [id number] [id number] Self [id number] [facility] [id number] S [id number] MEDICARE [id number] SP [id number] [place] Med[place] Part B [id number] Self Medicaid Medigap Part B [id number] Self 1 1 [place] Medig[place] Part B [id number] Self [id number] [place] Medig[place] Part B [id number] Self [place] 306/806 NOT ACTIVE SP NOT ACTIVE SELF PAY UNAVAILABLE SP UNAVAILA BLE [place] 306/806 [id number] SP [id number] [place] BCBS S [id number] S [id number] [place] 302/307 [id number] SP [id number] [place] [id number] SP [id number] Y [id number] MEDICARE PART A -O/P [id number] 18 [id number] MEDICAID -O/P EMERGENCY ROOM [id number] [place] [id number] SP [id number] MEDICARE C [id number] S [id number] MEDICARE PART A -O/P [id number] 18 [id number] MEDICARE PART A -O/P [id number] 18 [id number] Medicaid Medigap Part B [id number] Self [id number] [place] [id number] Self [id number] Medicaid Medigap Part B [id number] [id number] Self [id number] Medicaid [place] Med[place] Part B [id number] Self [id number] [place] B [id number] Self [id number] [id number] MEDICARE [id number] SP [id number] [id number] Medicaid Medigap Part B [id number] [id number] Self [id number] ANSI-Medicare Part B [id number] ANSI-Medicaid [id number] ANSI-Medicaid [id number] ANSI-Medicare Part B [id number] ANSI-Medicaid [id number] ANSI-Medicare Part B [id number] Problems, Conditions, and Diagnoses Code Display Name Description Problem Type Effective Dates Data Source(s) Y52968 Presence of unspecified artificial hip j oint Presence of unspecified artificial hip joint Diagnosis 03/04/2021 11:38:00 AM EDT [facility] [id number] Personal history of nicotine dependence Personal history of nicotine dependence Diagnosis 03/04/2021 11:38:00 AM EDT [facility] 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 Diagnosis 03/04/2021 11:38:00 AM EDT [facility] E119 Type 2 diabetes mellitus without complic ations Type 2 diabetes mellitus without complications Diagnosis 03/04/2021 11:38:00 AM EDT [facility] I10 Essential (primary) hypertension Essential (primary) h ypertension Diagnosis 03/04/2021 11:38:00 AM EDT [facility] K5900 Constipation, unspecified Constipation, unspecified Di agnosis 03/04/2021 11:38:00 AM EDT [facility] N3000 Acute cystitis without hematuria Acute cystitis without hematuria Diagnosis [facility] J73852 Pressure ulcer of other site, unspecifie d stage Pressure ulcer of other site, unspecified stage Diagnosis 02/17/2021 07:58:00 AM [facility] F78544 Pain in right foot Pain in right foot Diagnosis 07:58:00 AM EDT [facility] G8929 Other chronic pain Other chronic pain Diagnosis [facility]:37[facility] Z48651 Pain in right ankle and joints of right foot Pain in right ankle and joints of right foot Diagnosis 12/10/2020 05:37:00 AM [facility] R300 Dysuria Dysuria Diagnosis 12/10/2020 05:37:00 AM ED [facility] R1312 Dysphagia, oropharyngeal phase Dysphagia, oropharyngea l phase Diagnosis 12/01/2020 12:20:00 [facility] J029 Acute pharyngitis, unspecified Acute pharyngitis, unsp ecified Diagnosis 12/01/2020 12:20:00 PM [facility] J75912 Unspecified asthma, uncomplicated Unspecified as thma, uncomplicated Diagnosis 10/13/2020 11:01:00 PM [facility] M419 Scoliosis, unspecified Scoliosis, unspecified Diagnosi s 10/13/2020 11:01:00 PM [facility] N3001 Acute cystitis with hematuria Acute cystitis with ilda turia Diagnosis 10/13/2020 11:01:00 PM T [facility] R05 Cough Cough Diagnosis 10/13/2020 11:01:00 PM ED [facility] D06924 Personal history of urinary (tract) infe ctions Personal history of urinary (tract) infections Diagnosis 07/01/2020 06:35:00 AM [facility] Z7902 retirement (current) use of 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 Diagnosis 020 06:35:00 AM [facility] Q06429 Unspecified place in unspeci fied non-institutional (private) residence as the place of occurrence of the external cause Unspecified place in unspecified non-institutional (private) residence as the place of occurrence of the external cause Diagnosis 03/18/2020 04:56:00 AM EDT [facility] [id number] Fall (on) (from) other stairs and steps, initial encounter Fall (on) (from) other stairs and steps, initial encounter Diagnosis 03/18 04:56:00 AM EDT [facility] U62527 Type 2 diabetes mellitus with hypoglycem ia without coma Type 2 diabetes mellitus with hypoglycemia without coma Diagnosis 03/18/2020 04:56:00 AM EDT [facility] V60072 Primary osteoarthritis, right ankle and foot Primary osteoarthritis, right ankle and foot Diagnosis 03/18/2020 04:56:00 AM EDT [facility] [id number] Unspecified injury of right ankle, initi al encounter Unspecified injury of right ankle, initial encounter Diagnosis 03/18/2020 04:56:00 AM EDT [facility] Surgeries/Procedures Procedure Description Date Indications Data Source(s) Colonoscopy 04/26/2020 12:00:00 AM EDT [facility]BAN[facility] ([facility]) Results ID Date Data Source [id number] 04/22/2021 08:18:00 AM EDT [facility] Name Value Range Interpretation Code Description Data Melanie rce(s) Supporting Document(s) SARS-CoV-2 (COVID 19) NEGATIVE - SARS-CoV-2 (COVID19) [facility] This lab was ordered by [facility] a nd reported by [facility]. ID Date Data Source [id number] 03/04/2021 11:38:00 AM EDT [facility] 1 OrderSheet [facility] Emergency Department [address] [place] [address] Phone #: ext- [phone] 03/04/2021 11:37 Patient: FABIANO RAMIREZ Sex: F : 1955 Age: 65yWEIGHT:77.1 kg (S) HEIGHT:59 inches (S) BMI:34.4ALLERGIES: Darvacet, Demerol, MicrodentinCHIEF COMPLAINT: abd pain, constipationDIAGNOSIS: ConstipationLAB ORDERSOrder Description Priority Entered Acknowledged InitialedDIAGNOSTIC STUDY ORDERSOrder Description Priority Entered Acknowledged InitialedAbdomen Multiview STAT 13:02 03/04/2021 13:03 Olga(Oxygen?(No)) Anita uFentes urgent care physician, 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 (14:35 03/04/2021)][Electronically signed by Anita Fuentes (07:30 03/05/2021)][Electronically locked by Tyler Ladd R.N. (14:35 03/04/2021)] Name Value Range Interpretation Code Description Data Melanie rce(s) Supporting Document(s) ID Date Data Source [id number] 03/04/2021 11:38:00 AM EDT [facility] 1 Medication Reconciliation Report [facility] Emergency Department [address] [place] [address] Phone #: ext- [phone] 03/04/2021 11:37 Patient: FABIANO RAMIREZ Sex: F : 1955 Age: 65yWeight: 77.1 kgHeight/Length: 59 in.BMI: 34.4ALLERGIES: Darvacet, Demerol, MicrodentinThe patient's Home Medications are [...] bedtimeThe source(s) of the original Home Medication information:patientThe following Medications were given to the patient in the Emergency Department: 2 Medication Reconciliation Report [facility] Emergency Department [address] [place] [address] Phone #: ext- [phone] 03/04/2021 11:37 Patient: FABIANO RAMIREZ Sex: F : 1955 Age: 65yNone.The following Medications were prescribed to the patient:None. Name Value Range Interpretation Code Description Data Melanie rce(s) Supporting Document(s) ID Date Data Source [id number] 03/04/2021 11:38:00 AM EDT [facility] 1 Medication Administration Record [facility] Emergency Department [address] [place] [address] Phone #: ext- [phone] 03/04/2021 11:37 Patient: FABIANO RAMIREZ Sex: F : 1955 Age: 65yWeight: 77.1 kgHeight/Length: 59 inBMI: 34.4ALLERGIES: Aviva Peguero DemerolDate/Time Medication Administered Medication Ordered Name Value Range Interpretation Code Description Data Melanie rce(s) Supporting Document(s) ID Date Data Source [id number] 03/04/2021 11:38:00 AM EDT [facility] 1 General Instructions [facility] Emergency Department [address] [place] [address] Phone #: ext- [phone] 03/04/2021 11:37 Patient: FABIANO RAMIREZ Sex: F : 1955 Age: 65yConstipation (resolving while in the ER).INSTRUCTIONSDrink plenty of fluids. Other diet: Apple juice seems to help so you can continue to take this.(You did well with apple juice in the ER to help you move your bowels. You can continue to drink this asneeded since you feel the constipation medications are too much. Follow up with your regular provider forrecheck this week).Warnings: Further evaluation is necessary. It is very important to follow up with a healthcare provider.GENERAL WARNINGS: Return or contact your physician immediately if your condition worsens orchanges unexpectedly, if not improving as expected, or if other problems arise. SPECIFICALLY, return ifyou develop fever, vomiting, the inability to keep fluids down, blood in vomitus or blood in diarrhea; or ifthere is no improvement in the pain in the abdomen.Your Current Medications: Your current home medications have [...] day.ZyPREXA Oral : Tablet 10 mg, at bedtime.Follow-up:Follow up with your healthcare provider Daisy Rodriguez NP Friday. Call for an appointment. Reason forreferral: evaluation and treatment. Summary of care provided to patient via paper.Understanding of the discharge instructions verbalized by patient. ADDITIONAL INFORMATION 2 General Instructions [facility] Emergency Department [address] [place] [address] Phone #: ext- [phone] 03/04/2021 11:37 Patient: FABIANO RAMIREZ Sex: F : 1955 Age: 65yConstipation (Adult)Constipation means that you have bowel movements that are less frequent than usual. Stools oftenbecome very hard and difficult to pass.Constipation is very common. At some point in life, it affects almost everyone. Since everyone'sbowel habits are different, what is constipation to one person may not be to another. Your healthcareprovider may do tests to diagnose constipation. It depends on what he or she finds when evaluating you.Symptoms of constipation include: Abdominal pain Bloating Vomiting Painful bowel movements Itching, swelling, bleeding, or pain around the anusCausesConstipation can have many causes. These include: Diet low in fiber Too much dairy Not drinking enough liquids Lack of exercise or physical activity (especially true for older adults) Changes in lifestyle or daily routine, including , aging, work, and travel 3 General Instructions [facility] Emergency Department [address] [place], [place] [id number] Phone #: ext- [phone] 03/04/2021 11:37 Patient: FABIANO RAMIREZ Sex: F : 1955 Age: 65y Frequent use or misuse of laxatives Ignoring the urge to have a bowel movement or delaying it until later Medicines, such as certain prescription pain medicines, iron supplements, antacids, certain antidepressants, and calcium supplements Diseases like irritable bowel syndrome, bowel obstructions, stroke, diabetes, thyroid disease, Parkinson disease, hemorrhoids, and colon cancerComplicationsPotential complications of constipation can include: Hemorrhoids Rectal bleeding from hemorrhoids or anal fissures (skin tears) Hernias Dependency on laxatives Chronic constipation Fecal impaction, a severe form of constipation in which a large amount of hard stool is in your rectum that you can't pass Bowel obstruction or perforationHome careAll treatment should be done after talking with your healthcare provider. This is especially true if youhave another medical problems, are taking prescription medicines, or are an older adult. Treatmentmost often involves lifestyle changes. You may also need medicines. Your healthcare provider will tellyou which will work best for you. Follow the advice below to help avoid this problem in the future.Lifestyle changesThese lifestyle changes can help prevent constipation: Diet. Eat a high-fiber diet, with fresh fruit and vegetables, and reduce dairy intake, meats, and processed foods Fluids. It's important to get enough fluids each day. Drink plenty of water when you eat more fiber. If you are on diet that limits the amount of fluid you can have, talk about this with your healthcare provider. Regular exercise. Check with your healthcare provider first. 4 General Instructions [facility] Emergency Department [address] [place] [address] Phone #: ext- [phone] 03/04/2021 11:37 Patient: FABIANO RAMIREZ Sex: F : 1955 Age: 65yMedicinesTake any medicines as directed. Some laxatives are safe to use only every now and then. Others canbe taken on a regular basis. While laxatives don't cause bowel dependence, they are treating thesymptoms. So your constipation may return if you don't make other changes. Talk with yourhealthcare provider or pharmacist if you have questions.Prescription pain medicines can cause constipation. If you are taking this kind of medicine, ask yourhealthcare provider if you should also take a stool softener.Medicines you may take to treat constipation include: Fiber supplements Stool softeners Laxatives Enemas Rectal suppositoriesFollow-up careFollow up with your healthcare provider if symptoms don't get better in the next few days. You mayneed to have more tests or see a specialist.Call [phone] if any of these occur: Trouble breathing Stiff, rigid abdomen that is severely painful to touch Confusion Fainting or loss of consciousness Rapid heart rate Chest painWhen to seek medical adviceCall your healthcare provider right away if any of these occur: Fever of 100.4F (38C) or higher, or as directed by your healthcare provider 5 General Instructions [facility] Emergency Department [address] [place] [address] Phone #: ext- [phone] 03/04/2021 11:37 Patient: FABIANO RAMIREZ Sex: F : 1955 Age: 65y Failure to resume normal bowel movements Pain in your abdomen or back gets worse Nausea or vomiting Swelling in your abdomen Blood in the stool Black, tarry stool Involuntary weight loss Weakness [id number] [employer] [address] [place] [address], [place] [address]. All rights reserved. This information is not intended as asubstitute for professional medical care. Always follow your healthcare professional's instructions.High-Fiber DietFiber is in fruits, vegetables, cereals, and grains. Fiber passes through your body undigested. Ahigh-fiber diet helps food move through your intestinal tract. The added bulk can help preventconstipation. In people with small pouches in the colon (diverticulosis), fiber helps clean out thepouches along the colon wall. It also prevents new pouches from forming. A high-fiber diet reducesthe risk of colon cancer. It also lowers blood cholesterol and prevents high blood sugar in people withdiabetes.The high-fiber foods that are listed below should be part of your diet. If you are not used to eatinghigh-fiber foods, start with 1 or 2 foods from this list. Every 3 to 4 days add a new food to your diet.Do this until you are eating 4 high-fiber foods per day. This should give you 20 to 35 grams of fiber aday. You need to drink a lot of water when you are on this diet. You should have 6 to 8 glasses ofwater a day. Water makes the fiber swell and increases the benefit.Foods high in fiber 6 Genera l Instructions [facility] Emergency Department [address] [place] [address] Phone #: ext- [phone] 03/04/2021 11:37 Patient: FABIANO RAMIREZ Sex: F : 1955 Age: 65yThese foods are high in fiber: Breads. Breads made with 100% whole-wheat flour; crys, wheat, or rye crackers; whole-grain tortillas, bran muffins Cereals. Whole-grain and bran cereals with bran (shredded wheat, wheat flakes, raisin bran, corn bran); oatmeal, rolled oats, granola, and brown rice Fruits. Fresh fruits and their edible skins (pears, prunes, raisins, berries, apples, and apricots); bananas, citrus fruit, mangoes, pineapple; and prune juice Nuts and seeds. Any nuts and seeds, such as walnuts, peanuts, almonds, and pumpkin seeds Vegetables. This includes all vegetables. They are best served raw or lightly cooked. Those higher in fiber include green peas, celery, eggplant, potatoes, spinach, broccoli, [place] sprouts, winter squash, carrots, cauliflower, soybeans, lentils, and fresh and dried beans of all kinds. Other. Popcorn; any spicesIf you have diverticulosisThere aren't any specific foods to avoid if you have diverticulosis. But each person is different. Theremay be some foods that make your symptoms worse. Keep track and don't eat foods that make youfeel worse. [id number] [employer] [place] [address]. All rights reserved. This information is not intended as asubstitute for professional medical care. Always follow your health childcare attendant's instructions. You have been given the following additional information: Constipation (Adult) High-Fiber Diet(Electronically signed by EMRE Puga 03/05/2021 07:30) Name Value Range Interpretation Code Description Data Melanie rce(s) Supporting Document(s) ID Date Data Source [id number] 03/04/2021 11:38:00 AM EDT [facility] 1 Clinical Report - Nurses [facility] Emergency Department [address] [place] [address] Phone #: ext- [phone] 03/04/2021 11:37 Patient: FABIANO RAMIREZ Sex: F : 1955 Age: 65yTRIAGEArrived by EMS. Historian: patient. Unaccompanied.Triage time: late entry - 11:34 03/04/2021. Acuity: LEVEL 3.Chief Complaint: ABDOMINAL PAIN and CONSTIPATION.Alert. No acute distress.Onset. (1 weeks ago). ( Pt hasnt had a normal BM in about a week. Pt was seen at [facility] yesterday andwas unable to tolerate a CT scan. She had a small BM 2 days ago. Pt has c/o of abd pain with a burningsensation.). She has had constipation.Treatment DECKHAND:None.SEPSIS SCREEN: SIRS SCREEN NEGATIVE. SEPSIS SCREEN NEGATIVE. No suspected or confirmedsigns of infection present. --11:45 03/04/21 So Ladd R.N.11:40 03/04/21. BP: 113/74. MAP: 87. HR: 95. RR: 18. O2 saturation: 98% on room air. Temp: 98.9 F(temporal). Pain level now: 04/29. --11:45 03/04/21 So Ladd R.N.Weight: 77.1 kg stated. Height/Length: 59 inches Per Patient. BMI: 34.4. --11:42 03/04/21 So Ladd R.N.MedicationsAlbuterol Sulfate Inhalation 2 unit doses. Eliquis [...] ZyPREXA Oral (Tablet 10 mg), at bedtime. --11:50 03/04/21 So Ladd R.N.AllergiesDemerol. --11:51 03/04/21 So Ladd R.N.Darvacet. 2 Clinical Report - Nurses [facility] Emergency Department [address] [place] [address] Phone #: ext- [phone] 03/04/2021 11:37 Patient: FABIANO RAMIREZ Sex: F : 1955 Age: 65yMicrodentin. --11:52 03/04/21 So Ladd R.N.PROBLEMS:Cystitis.Cough.Dysphagia.Diabetes Mellitus Type 2.Contusion.Arthritis.Ankle Injury.Chronic Back Pain.Cervical Strain.Spinal Tumor.Lower Extremity Pain.UTI - Urinary Tract Infection.Sprain.Incontinence.Islas Catheter.Fall.Hypoglycemia.Hypertension. --11:48 03/04/21 So Ladd R.N.Medication/allergy information source: the patient. --11:45 03/04/21 So Ladd R.N.ADDITIONAL SURGERIES:Appendectomy.Hernia Repair.Hip Prosthesis.Spinal surgery. --11:48 03/04/21 So Ladd R.N.HistoryPAST MEDICAL HX: The patient is post- menopausal.SOCIAL HX: Former smoker. No alcohol use or drug use. No recent travel. No known contact with asick individual. She was offered HIV testing but declined. Patient education was provided. She wasoffered hepatitis C testing but declined. Patient education was provided. She has not traveled outside the.[place].Infectious disease exposure: No infectious disease exposure. (COVID screen negative). Patient is not aknown carrier of tuberculosis, hepatitis, HIV, MRSA or VRE. Patient is not a known carrier of CRE.SELF HARM ASSESSMENT: Self harm assessment was performed. The patient answered "no" to thequestion(s) "Do you have thoughts of harming or killing yourself?", "Do you have a plan for harming orkilling yourself?" and "Have you recently had thoughts about harming or killing others?".ABUSE ASSESSMENT: Abuse assessment. The patient had positive responses to the question(s) "Do you 3 Clinical Report - Nurses [facility] Emergency Department [address] [place] [address] Phone #: ext- [phone] 03/04/2021 11:37 Patient: FABIANO RAMIREZ Sex: F : 1955 Age: 65y feel safe in your home?" (yes). Abuse denied. No suspicion of abuse. No report of abuse. NUTRITIONAL RISK ASSESSMENT: The nutritional risk assessment revealed no deficiencies. FUNCTIONAL ASSESSMENT: Functional assessment: no impairments noted. LEARNING NEEDS ASSESSMENT: The learning needs assessment revealed no ba rriers. FALL RISK ASSESSMENT: Fall risk assessment completed. Risk factors identified include weakness and patient medications and impairment of mobility. Fall interventions initiated. Patient placed on stretcher. Side rails up x2. Bed in low position. Brakes on. Patient visible from nurses' station and identified as a fall risk by chart flagged. Call light in reach of patient. Instructed not to get up without assistance. Instructions given to including fall prevention information. Verbalizes understanding. SKIN INTEGRITY ASSESSMENT: Skin integrity risk assessment completed. No skin integrity risk identified. --11:45 03/04/21 So Ladd R.N. Interventions Identification band on patient. --11:45 03/04/21 So Ladd R.N.PHYSICAL ASSESSMENTAmbulatory to room.GENERAL / NEURO / PSYCH: Alert. Oriented X 4. Appears in no acute distress.HEENT: Mucous membranes are pink.RESPIRATORY: Respirations not labored. Breath sounds within normal limits.CVS: Normal sinus rhythm noted. Capillary refill less than 2 seconds.GI / : Abdominal tenderness in the lower abdomen. Bowel sounds within normal limits.SKIN: Skin is warm and dry. --11:47 03/04/21 So Ladd R.N.NURSING PROGRESS NOTESMonitoring of patient in place. Patient gowned. Reassurance given. Three patient identifiers checked.Call light placed in reach. Side rails up x 2. Bed placed in lowest position. Brakes of bed on. Patientready for evaluation- ED physician notified. --11:45 03/04/21 So Ladd R.N. late entry - 12:40 03/04/21. Monitoring of patient in place. Patient gowned. Reassurance given. Rounding: Position: states comfortable. Personal care / toileting: assisted with toileting (sm BM noted ). Proximity of possessions / care items: call light within easy reach. Set expectations: advised patient of rounding protocol timing and asked if they needed anything else at this time. The patient is calm and resting quietly. Call light placed in reach. Patient waiting for evaluation. --13:00 03/04/21 So Ladd R.N. Rounding: Personal care / toileting: assisted with toileting. --13:22 03/04/21 So Ladd R.N. 4 Clinical Report - Nurses [facility] Emergency Department [address] [place] [address] Phone #: ext- [phone] 03/04/2021 11:37 Patient: FABIANO RAMIREZ Sex: F : 1955 Age: 65y Rounding: Personal care / toileting: assisted with toileting. --13:49 03/04/21 So Ladd R.N. late entry - 14:00 03/04/21. ( Pt had a moderate BM, PA aware). --14:35 03/04/21 So Ladd R.N.DISPOSITION / DISCHARGE 14:19 03/04/21. BP: 112/65. HR: 82. RR: 18. O2 saturation: 98%. Temp: 98.2 F. Pain level now 5/10. --14:19 03/04/21 [facility] Tech, BELINDA Kim Tech1 late entry - 14:32 03/04/21. Departure time: 14:32 03/04/2021. Tha Coma Scale: 15- eyes open- spontaneous (4); best verbal response- oriented (5); best motor response- obeys commands (6). Condition at departure: improved and stable. No learning barriers present. Discharge instructions provided and reviewed with the patient. Reviewed warnings. Reviewed referral to a primary care physician for followup. Patient verbalized understanding. Written instructions provided in Gabonese. The patient was discharged by the physician tiler's assistant. She was discharged home and unaccompanied at time of discharge. She left ambulatory and via taxi. 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 --14:34 03/04/21 So Ladd R.N.Locked/Released at 03/04/2021 14:35 by So Ladd R.N. Name Value Range Interpretation Code Description Data Melanie rce(s) Supporting Document(s) ID Date Data Source [id number] 03/04/2021 11:38:00 AM EDT [facility] 1 Clinical Report - Physicians/Mid Levels [facility] Emergency Department [address] [place] [address] Phone #: ext- [phone] 03/04/2021 11:37 Patient: FABIANO RAMIREZ Sex: F : 1955 Age: 65y Time Seen: 12:17 03/04/2021. Arrived- By private vehicle. Historian- patient (pt is a poor historian). Disposition decision: 13:59 03/04/2021.HISTORY OF PRESENT ILLNESS Chief Complaint: constipation. It is described as cramping. No radiation. It is described as located in the lower abdomen. This started about 1 weeks ago. At its maximum, severity described as 10 / 10. When seen in the E.D., severity described as 8 / 10. Modifying factors- (Symptoms slightly relief with small BM). Not worsened by anything. No nausea, loss of appetite, vomiting or diarrhea. (65yo female with numerous comorbidities presents to the ED by EMS for complaints of constipation x 2 days. She states she has only been able to have very small BM. She has not taken anything because "they all make he have uncontrolled BM all of my bed and bathroom." She was seen at [facility] yesterday but was unable to tolerate laying flat for the CT due to chronic back pain so she left. She currently only reports complaints of some lower abd discomfort and constipation. She states there symptoms can be relieved by apple juice and crys crackers. She denies any associated fevers, chill, n/V/D, CP, SOB. This happens frequently to her because of her chronic narcotic use. She is declining any medications to help move her bowels.). No recent travel. Similar symptoms previously. Patient has had similar symptoms many times. Recent medical care: The patient was seen recently by a health care provider ([facility] ED yesterday).REVIEW OF SYSTEMSNo chills, fatigue, fever, double vision or ear pain. No nasal congestion, runny nose, chest pain, cough ordifficulty breathing. No diarrhea, nausea, vomiting or headache. She has had a sore throat, abdominalpain, constipation and back pain (chronic, unchanged from baseline). The patient has had urinaryfrequency (unchanged from baseline).PAST HISTOR YProblems:Dysphagia.Diabetes Mellitus Type 2.Arthritis.Spinal Tumor.Incontinence.Hypertension. Additional Surgeries: Appendectomy. Hernia Repair. 2 Clinical Report - Physicians/Mid Levels [facility] Emergency Department [address] [place] [address] Phone #: ext- [phone] 03/04/2021 11:37 Patient: FABIANO RAMIREZ Sex: F : 1955 Age: 65y Hip Prosthesis. Spinal surgery. Medications: Albuterol Sulfate Inhalation 2 [...] mg), at bedtime. Allergies: Darvacet. Demerol. Microdentin.SOCIAL HISTORYFormer smoker. Drug use. No alcohol use.ADDITIONAL NOTESThe nursing notes have been reviewed with agreement regarding the chief complaint, HPI, ROS, PMH andpatient medications and allergies.PHYSICAL EXAMVital Signs: 03/04/2021 14:19 BP: 112/65. MAP: 80. HR: 82. RR: 18. O2 saturation: 98%. Temp: 98.2 F.03/04/2021 11:40 BP: 113/74. MAP: 87. HR: 95. RR: 18. O2 saturation: 98% on room air. Temp: 98.9 F.Pain level now: 04/29. Have been reviewed and appear to be correct. Blood pressure normal. Heartrate normal. Respiratory rate normal. Temperature normal. Oxygen saturation normal.Appearance: Alert. Oriented X3. No acute distress.Eyes: Eyes normal inspection.ENT: Ears normal. Nose normal. Pharynx normal.Neck: Normal inspection.CVS: Normal heart rate and rhythm. Heart sounds normal.Respiratory: No respiratory distress. Breath sounds normal. Chest nontender.Abdomen: Soft. Mild tenderness in the lower abdomen. Bowel sounds normal. No mass.Skin: Skin warm and dry. Normal skin color. No rash.Extremities: No lower extremity edema.Neuro: Oriented X 3. 3 Clinical Report - Physicians/Mid Levels [facility] Emergency Department [address] [place] [address] Phone #: ext- [phone] 03/04/2021 11:37 Patient: FABIANO RAMIREZ Sex: F : 1955 Age: 65yLABS, X-RAYS, AND EKGLaboratory Tests: Laboratory tests have been ordered, with results reviewed and considered in themedical decision making process. Abdomen Multiview: (LOE: 03/04/2021 13:02) ( MsgRcvd 03/04/2021 15:03) Final results Exam A[place] [address] PHONE: [phone] FAX: [phone] Name .................. : CANDIDO MARIO Acct Number.................. : [id number] ROOM. ................. : TR-03 MR Number ................... : [id number] Stay type ............. : E/R Discharge Date......... ... : Admit Date ......... : 03/04/21 Admit Phys .................... : IRMA Stallings Date of ....... : 1955 Family Phys ................... : [employer] Phone .................. : [phone] Age ................................ : 65 Film# .................. .:[id number] Sex ................................. : F Unsigned transcriptions are preliminary reports and do not represent a medical or legal document ABDOMEN MULTIPLE VIEW [id number] COMPLETE:03/04/21 13:02 [id number] Reason(s): constipation, lower abd pain ABDOMINAL RADIOGRAPH WITH PA CHEST 2 VIEW HISTORY: Constipation, lower abdominal pain COMPARISON: Chest 10/14/00. No prior abdomen. FINDINGS: Mildly enlarged cardiac silhouette similar to prior. Minimal basilar atelectasis. No pneumonia or edema. No free air. Clips over the right upper quadrant. Increased stool projects over the lower pelvis and perineal region. No bowel obstruction. Severe convex right thoracolumbar scoliosis. Short compensatory lumbosacral curve. IMPRESSION: Increased stool. Based on position correlate for rectal prolapse or abdominal wall hernia or laxity. Electronically Reviewed and Signed By Ta Shin MD , 03/04/21 15:03, CHRISTOPHERB Transcribe Initials: DZ , Transcribe Date: 03/04/21 13:29, Dictation Date: Copy for: 010 EMERGENCY SRV Copy for: MAYE CHANG via fax Copy for: EMERGENCY DEPT via modem Copy for: 710 MED REC 4 Clinical Report - Physicians/Mid Levels [facility] [place] [address] Phone #: ext- [phone] 03/04/2021 11:37 Patient: FABIANO RAMIREZ Sex: F : 1955 Age: 65y Page 1 of 1.PROGRESS AND PROCEDURESCourse of Care: Discussed treatment options with pt. Per her initial request, apple juice and crackersgiven. abd x- ray noted stool. After pt had 2 cups of juice she had number of BM while in the ED and statedshe felt better so she was dc home with precautions. Disposition: Discharged home. Discharge decision based on the following: patient's condition is stable; patient is ambulatory; patient drinking fluids; patient eating; patient's pain is controlled; patient's exam is improved; minimally abnormal test results; resolved condition on repeat evaluation; social support is adequate; transportation is available; follow-up is available; clinical impression is consistent with outpatient treatment.CLINICAL IMPRESSION Constipation (resolving while in the ER).INSTRUCTIONS Drink plenty of fluids. Other diet: Apple juice seems to help so you can continue to take this. (You did well with apple juice in the ER to help you move your bowels. You can continue to drink this as needed since you feel the constipation medications are too much. Follow up with your regular provider for recheck this week). Warnings: Further evaluation is necessary. It is very important to follow up with a healthcare provider. GENERAL WARNINGS: Return or contact your physician immediately if your condition worsens or changes unexpectedly, if not improving as expected, or if other problems arise. SPECIFICALLY, return if you develop fever, vomiting, the inability to keep fluids down, blood in vomitus or blood in diarrhea; or if there is no improvement in the pain in the abdomen. Your Current Medications: Your current home medications have been reviewed. CONTINUE TAKING THE FOLLOWING MEDICATIONS: Albuterol Sulfate Inhalation : 2 unit doses. Eliquis Oral. HYDROcodone-Acetaminophen Oral : Solution 7.5-325 mg/15mL, prn. KlonoPIN Oral : 0.25 mg, at bedtime. LaMICtal Oral : Tablet 25 mg, 2x a day. Meclizine HCl Oral : 50 mg 2x a day. MiraLax Oral : 1 packet. 5 Clinical Report - Physicians/Mid Levels [facility] Emergency Department [address] [place] [address] Phone #: ext- [phone] 03/04/2021 11:37 Patient: FABIANO RAMIREZ Sex: F : 1955 Age: 65y Motrin IB Oral : 400, prn. Potassium Chloride Oral : Packet 20 meq, 2x a day. Promethazine HCl Oral : Tablet 25 mg, prn. Sudafed Oral : 60 mg 2x a day. ZyPREXA Oral : Tablet 10 mg, at bedtime. Follow-up: Follow up with your [facility] provider Daisy Rodriguez NP Friday. Call for an appointment. Reason for referral: evaluation and treatment. Summary of care provided to patient via paper. Understanding of the discharge instructions verbalized by patient.(Electronically signed by EMRE Puga 03/05/2021 07:30) Name Value Range Interpretation Code Description Data Melanie rce(s) Supporting Document(s) ID Date Data Source [id number] 03/04/2021 03:03:00 PM EDT [facility] [address] [address] PHONE: [phone] FAX: [phone] Name .................. : CANDIDO MARIO Acct Number.................. : [id number] ROOM. ................. : [facility] MR Number ................... : [id number] Stay type ............. : E/R Discharge Date......... ... : Admit Date ......... : 03/04/21 Admit Phys .................... : IRMA Stallings Date of ....... : 1955 Family Phys ................... : JENNY NAN Phone .................. : [phone] Age ................................ : 65 Film# .................. .:[id number] Sex ................................. : F Unsigned transcriptions are preliminary reports and do not represent a medical or legal document ABDOMEN MULTIPLE VIEW [id number] COMPLETE:03/04/21 13:02 Reason(s): constipation, lower abd pain ABDOMINAL RADIOGRAPH WITH PA CHEST 2 VIEW HISTORY: Constipation, lower abdominal pain COMPARISON: Chest 10/14/00. No prior abdomen. FINDINGS: Mildly enlarged cardiac silhouette similar to prior. Minimal basilar atelectasis. No pneumonia or edema. No free air. Clips over the right upper quadrant. Increased stool projects over the lower pelvis and perineal reg ion. No bowel obstruction. Severe convex right thoracolumbar scoliosis. Short compensatory lumbosacral curve. IMPRESSION: Increased stool. Based on position correlate for rectal prolapse or abdominal wall hernia or laxity. Electronically Reviewed and Signed By Ta Shin MD , 03/04/21 15:03, TRISHA Transcribe Initials: SHANNAN , Transcribe Date: 03/04/21 13:29, Dictation Date: Copy for: 010 EMERGENCY SRV Copy for: MAYE CHANG via fax Copy for: EMERGENCY DEPT via modem Copy for: 710 MED REC Page 1 of 1 Name Value Range Interpretation Code Description Data Melanie rce(s) Supporting Document(s) ID Date Data Source [id number] 02/19/2021 09:47:00 [place] [address] PHONE: [phone] FAX: [phone] Name .................. : CANDIDO MARIO Acct Number.................. : [id number] ROOM. ................. : TR-02 Number ................... : [id number] Stay type ............. : E/R Discharge Date......... ... : 02/17/21 Admit Date ......... : 02/17/21 Admit Phys .................... : IRMA Stallings Date of ....... : 1955 Family Phys ................... : JENNY GARCIA Phone .................. : [phone] Age ................................ : 65 Film# .................. .:[id number] Sex ................................. 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 No other abnormalities. 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 Electronically Reviewed and Signed By NIGEL LEVINE MD , 02/19/21 09:47, [facility] Transcribe Initials: SHANNAN , Transcribe Date: 02/17/21 11:42, Dictation Date: Copy for: EMERGENCY DEPT via quintonm Copy for: 710 MED REC DISCHARGED Page 1 of 1 Name Value Range Interpretation Code Description Data Melanie rce(s) Supporting Document(s) ID Date Data Source [id number] 02/17/2021 07:58:00 AM EDT [facility] 1 OrderSheet [facility] Emergency Department [address] [place] [address] Phone #: ext- [phone] 02/17/2021 07:54 Patient: FABIANO RAMIREZ Sex: F : 1955 Age: 65yWEIGHT:67.8 kg (M) HEIGHT:59 inches (S) BMI:30.2ALLERGIES: Darvacet, Demerol, MicrodentinCHIEF COMPLAINT: painDIAGNOSIS: CystitisLAB ORDERSOrder Description Priority Entered Acknowledged InitialedUrinalysis (Clean STAT 08:31 02/17/2021 08:57 NareshCatch) Serge Echeverria ; Thomas RNCulture, Urine STAT 08:02/17/2021 08:57 Naresh(Urine, Clean Serge Echeverria ; Thomas RNCatch)DIAGNOSTIC STUDY ORDERSOrder Description Priority Entered Acknowledged InitialedToes Right STAT 08:02/17/2021 08:33 Naresh(Oxygen?(No)) Serge Echeverria ; Thomas VAZQUEZ Reason for Study: PainMEDICATION/IV/DRIP/FLUID ORDERSOrder Description Priority Entered Acknowledged InitialedGENERAL ORDERSOrder Description Priority Entered Acknowledged InitialedSplint (Aircast) R 10:13 02/17/2021 10:15 LiamhamSerge Harris ; urgent care physicianJulio Tech1[Electronically signed by Naresh Guzman RN (10:02/17/2021)][Electronically signed by Serge Echeverria (11:03 02/17/2021)][Electronically locked by Naresh Guzman RN (10:02/17/2021)] Name Value Range Interpretation Code Description Data Melanie rce(s) Supporting Document(s) ID Date Data Source [id number] 02/17/2021 07:58:00 AM EDT [facility] 1 Medication Reconciliation Report [facility] Emergency Department [address] [place] [address] Phone #: ext- [phone] 02/17/2021 07:54 Patient: FABIANO RAMIREZ Sex: F : 1955 Age: 65yWeight: 67.8 kgHeight/Length: 59 in.BMI: 30.2ALLERGIES: Darvacet, Demerol, MicrodentinThe patient's Home Medications are [...] the Emergency Department: 2 Medication Reconciliation Report [facility] Emergency Department [address] [place] [address] Phone #: ext- [phone] 02/17/2021 07:54 Patient: FABIANO RAMIREZ Sex: F : 1955 Age: 65yNone.The following Medications were prescribed to the patient:Bactrim DS 800 mg-160 mg tablet Take 1 tablet twice a day for 7 days -- Dispense 14 tablet. Refills: 0.Substitution permitted.Pharmacy - [id number] - [address] ; [place] [address]. . -- Serge Echeverria Name Value Range Interpretation Code Description Data Melanie rce(s) Supporting Document(s) ID Date Data Source [id number] 02/17/2021 07:58:00 AM EDT [facility] 1 Medication Administration Record [facility] Emergency Department [address] [place] [address] Phone #: ext- [phone] 02/17/2021 07:54 Patient: FABIANO RAMIREZ Sex: F : 1955 Age: 65yWeight: 67.8 kgHeight/Length: 59 inBMI: 30.2ALLERGIES: Darvacet, Demerol, MicrodentinDate/Time Medication Administered Medication Ordered Name Value Range Interpretation Code Description Data Melanie rce(s) Supporting Document(s) ID Date Data Source [id number] 02/17/2021 07:58:00 AM EDT [facility] 1 General Instructions [facility] Emergency Department [address] [place] [address] Phone #: ext- [phone] 02/17/2021 07:54 Patient: FABIANO RAMIREZ Sex: F : 1955 Age: 65ySuperficial pressure ulcer on the right 2nd toe. Skin breakdown present.Acute cystitis. No hematuria present.INSTRUCTIONSWear splint.Warnings: Further evaluation is necessary.GENERAL WARNINGS: Return or contact your physician immediately if your condition worsens orchanges unexpectedly, if not improving as expected, or [...] Oral : Tablet 10 mg, at bedtime.Prescription Medications:Bactrim DS 800 mg-160 mg tablet Take 1 tablet twice a day for 7 days -- Dispense 14 tablet. Refills: 0.Substitution permitted.Pharmacy - [id number] - [address] ; [place] [address]. .Follow-up:Follow up with your healthcare provider.Understanding of the discharge instructions verbalized by patient. 2 General Instructions [facility] Emergency Department [address] [place] [address] Phone #: ext- [phone] 02/17/2021 07:54 Patient: FABIANO RAMIREZ Sex: F : 1955 Age: 65y ADDITIONAL INFORMATIONBladder Infection, Female (Adult)Urine normally doesn't have any [...] common symptoms of a bladder infection are: 3 General Instructions [facility] Emergency Department [address] [place] [address] Phone #: ext- [phone] 02/17/2021 07:54 Patient: FABIANO RAMIREZ Sex: F : 1955 Age: 65y Pain or burning when urinating Having to urinate more often than normal [...] in your urine. Fluid loss (dehydration) Constipation 4 General Instructions [facility] Emergency Department [address] [place] [address] Phone #: ext- [phone] 02/17/2021 07:54 Patient: FABIANO RAMIREZ Sex: F : 1955 Age: 65y Having sex Using a diaphragm for controlTreatmentBladder infections are [...] or kidney disease, talk with your healthcare provid er before using these medicines. Also talk with your provider if you've ever had a stomach ulcer or GI (gastrointestinal) bleeding, or are taking blood- thinner medicines. If you are given phenazopydridine to [...] fresh fruits and vegetables, and fiber. Eat l ess junk foods and fatty foods. Don't have sex until your symptoms are gone. Don't have caffeine, alcohol, and spicy foods. These can irritate your bladder. 5 General Instructions [facility] Emergency Department [address] [place] [address] Phone #: ext- [phone] 02/17/2021 07:54 Patient: FABIANO RAMIREZ Sex: F : 1955 Age: 65y Urinate right after you have sex to flush out your bladder. If you [...] swelling in the outer vaginal area (labia) [id number] [employer]. [address] [place] [address]. All rights reserved. This information is not intended as asubstitute for professional medical care. Always follow your healthcare professional's instructions. 6 General Instructions [facility] Emergency Department [address] [place] [address] Phone #: ext- [phone] 02/17/2021 07:54 Patient: FABIANO RAMIREZ Sex: F : 1955 Age: 65yYou have been given the following additional information:Bladder Infection, Female (Adult)(Electronically signed by Serge Echeverria 02/17/2021 11:03) Name Value Range Interpretation Code Description Data Melanie rce(s) Supporting Document(s) ID Date Data Source [id number] 02/17/2021 07:58:00 AM EDT [facility] 1 Clinical Report - Nurses [facility] Emergency Department [address] [place] [address] Phone #: [phone] ext- [phone] 02/17/2021 07:54 Patient: FABIANO RAMIREZ Sex: F : 1955 Age: 65yTRIAGEArrived by EMS. Historian: patient.Acuity: LEVEL 4.Chief Complaint: RIGHT LOWER EXTREMITY PAIN.No injury occurred. Onset. (2 weeks ago). ( Pt states she has had right lower extremity pain for about thepast 2 weeks, she was seen here more than a couple weeks ago and an air splint was applied, she went [facility] and was released, she reports continued pain and now feels nausea).Treatment DECKHAND:None.EMS Treatment DECKHAND:EMS treatment verbally communicated and report reviewed. See report.SEPSIS SCREEN: SIRS SCREEN NEGATIVE. SEPSIS SCREEN NEGATIVE. No suspected or confirmedsigns of infection present.THA COMA SCORE: 15- eyes open- spontaneous (4); best verbal response- oriented (5); bestmotor response- obeys commands (6). --08:02 02/17/21 Naresh Guzman RN07:57 02/17/21. BP: 123/81. MAP: 95. HR: 101. RR: 18. O2 saturation: 94%. Temp: 97.9 F. Pain levelnow: 10. --08:02 02/17/21 Naresh Guzman RN.Weight: 67.8 kg measured. Height/Length: 59 inches Per Patient. BMI: 30.2. --07:57 02/17/21 GEORGE Cazares.MedicationsAlbuterol Sulfate Inhalation 2 unit doses. Eliquis Oral. HYDROcodone-Acetaminophen Oral (Solution 7.5-325 mg/15mL), as needed. KlonoPIN Oral 0.25 mg, at bedtime. LaMICtal Oral (Tablet 25 mg), 2x a day. Meclizine HCl Oral 50 mg, 2x a day. --07:59 02/17/21 Naresh Guzman RN MiraLax Oral 1 packet. Motrin IB Oral 400, as needed. Potassium Chloride Oral (Packet 20 meq), 2x a day. Promethazine HCl Oral (Tablet 25 mg), as needed. Sudafed Oral 60 mg, 2x a day. 2 Clinical Report - Nurses [facility] Emergency Department [address] [place] [address] Phone #: ext- [phone] 02/17/2021 07:54 Patient: FABIANO RAMIREZ Sex: F : 1955 Age: 65y ZyPREXA Oral (Tablet 10 mg), at bedtime. --07:59 02/17/21 Naresh Guzman RN. Allerg ies Bebetoet. Demerol. Microdentin. --07:59 02/17/21 Naresh Guzman RN. History PAST MEDICAL HX: Tetanus status: up-to-date. Immunizations: up-to-date. The patient is post-menopausal. SOCIAL HX: Never smoker. No alcohol use or drug use. She was offered HIV testing but declined and hepatitis C testing but declined. She has not traveled outside the [place] Infectious disease exposure: No infectious disease exposure. The patient was not exposed to Coronavirus. SELF HARM ASSESSMENT: Self harm assessment was [...] to hurt yourself before today?". ABUSE ASSESSMENT: No report of abuse. NUTRITIONAL RISK ASSESSMENT: The nutritional risk assessment revealed no deficiencies. FUNCTIONAL ASSESSMENT: Functional assessment: no impairments noted. LEARNING NEEDS ASSESSMENT: The learning needs assessment revealed no barriers. FALL RISK ASSESSMENT: Fall risk assessment completed. No risk factors identified. SKIN INTEGRITY ASSESSMENT: Skin integrity risk assessment completed. No skin integrity risk identified. --08:02 02/17/21 Naresh Guzman RN. Interventions To treatment room. --08:02/17/21 Naresh Guzman RN.PHYSICAL ASSESSMENTTo room via stretcher.GENERAL / NEURO / PSYCH: Oriented X 4. Alert. Appears in pain.EXTREMITIES: Extremity pulses are within normal limits. Neuro-vascular status intact to the extremity.No lower extremity edema. Right ankle: tenderness. ( much dry skin around all toes).SKIN: Skin intact. Skin is warm and dry. --08:02/17/21 Naresh Guzman RN. 3 Clinical Report - Nurses [facility] Emergency Department [address] [place] [address] Phone #: [phone]- [phone] 02/17/2021 07:54 Patient: FABIANO RAMIREZ Sex: F : 1955 Age: 65yNURSING PROGRESS NOTESNIBP monitor and pulse oximeter placed on patient; monitor alarms on. Extremity elevated. Patientgowned. Reassurance given. Call light placed in reach. Side rails up x 2. Bed placed in lowestposition. Brakes of bed on. Patient ready for evaluation- ED physician notified. --08:04 02/17/21 GEORGE Cazares 09:04 02/17/21. BP: 123/82. MAP: 95. HR: 84. RR: 18. O2 saturation: 99%. --09:04 02/17/21 Cyndi Victoria R.N. ( resting at present). --09:05 02/17/21 Cyndi Victoria R.N. 10:08 02/17/21. ( oob to bathroom walked with walker without any difficulty). --10:13 02/17/21 Cyndi Victoria R.N. ( crackers and ginerale given). --10:13 02/17/21 Cyndi Victoria R.N. 10:00 02/17/21. BP: 110/82. MAP: 91. HR: 87. RR: 18. O2 saturation: 95%. --10:15 02/17/21 Cyndi Victoria R.N. Short leg air splint applied to right ankle. Distal pulses intact, sensation intact and motor within normal limits. Patient tolerated the procedure well. Splinting applied by me. --10:18 02/17/21 Naresh Guzman RN.DISPOSITION / DISCHARGE Condition at departure: improved and stable. Discharge instructions provided and reviewed with the patient. Reviewed medication(s) side effects, precautions, dosing and course information. Prescription(s) sent electronically to pharmacy. Patient verbalized understanding. Written instructions provided in Gabonese. The patient was discharged by the physician. She was discharged home. She left ambulatory and via taxi. --10:25 02/17/21 Naresh Guzman RN 10:24 01/20 08/10. BP: 138/98. MAP: 111. HR: 98. RR: 18. O2 saturation: 100%. Pain level now: 10/28. --10:25 02/17/21 Naresh Guzman RN.Locked/Released at 02/17/2021 10:25 by Naresh Guzman RN Name Value Range Interpretation Code Description Data Melanie rce(s) Supporting Document(s) ID Date Data Source [id number] 02/17/2021 07:58:00 AM EDT [facility] 1 Clinical Report - Physicians/Mid Levels [facility] Emergency Department [address] [place] [address] Phone #: ext- [phone] 02/17/2021 07:54 Patient: FABIANO RAMIREZ Sex: F : 1955 Age: 65y Time Seen: 08:39 02/17/2021. Arrived- By ambulance. Historian- patient.HISTORY OF PRESENT ILLNESS Chief Complaint: LOWER EXTREMITY PAIN. This started several weeks and is still present. It has been constant. Severity is described as being moderate. The quality is noted to be aching. No radiation. Modifying factors- worsened by walking. Location: right toes. The patient has had redness and swelling. No difficulty walking. No bladder dysfunction or sensory loss. ( Patient repeatedly reporting pain in middle toes of right foot. No trauma. She states the ED at [facility] just wraps her toes, she thinks they wrapped it too tight. She wears a air cast and walks with a walker at home.). Patient denies an injury. Similar symptoms previously. Recent medical care: The patient was seen recently in the emergency department. ( Multiple times at [facility] for urinary complaints).REVIEW OF SYSTEMSNo chest pain, difficulty breathing, enlarged lymph nodes, neck pain or headache. No vomiting, diarrhea,anorexia, fever or headache. No diabetic symptoms or easy bruising. She has had back pain and pain,abdominal pain and difficulty with urination, and urination. She has had skin rash. All other systemsreviewed and are negative.PAST HISTORYSee nurses notes. Chronic back pain. No history of DVT or diabetes mellitus.SOCIAL HISTORYNever smoker. No alcohol use.ADDITIONAL NOTESThe nursing notes have been reviewed.PHYSICAL EXAMVital Signs: 02/17/2021 07:57 BP: 123/81. MAP: 95. HR: 101. RR: 18. O2 saturation: 94%. Temp: 97.9 F.Pain level now: 04/29.Appearance: Alert. Oriented X3. No acute distress.Eyes: Pupils equal, round and reactive to light.ENT: Nose normal. Pharynx normal.Neck: Normal inspection. 2 Clinical Report - Physicians/Mid Levels [facility] Emergency Department [address] [place] [address] Phone #: ext- [phone] 02/17/2021 07:54 Patient: FABIANO RAMIREZ [facility]#: [id number] Sex: F : 1955 Age: 65y CVS: Normal heart rate and rhythm. Heart sounds normal. Respiratory: No respiratory distress. Breath sounds normal. Abdomen: Soft and nontender. Mild tenderness. Back: Normal inspection. No tenderness. Skin: Skin warm and dry. N ormal skin color. Normal skin turgor. (erythema to right second toe, violaceous color without crepitus). Extremities: Right foot: tenderness located in the second toe(s). Lower extremities exhibit normal ROM. No lower extremity edema. (Dorsalis pedal pulses are 2+ bilaterally. scaly crusting deposits on interdigital spaces. Dried callus over tip of 2nd toe with tender shallow ulcer underneath). Extremities otherwise negative. Neuro, Vascular and Tendons: No pulse deficit present. Neuro: Oriented X 3. No motor deficit.LABS, X-RAYS, AND EKGX-Rays: Right toe(s).Rt Toes X-ray: No bony lesion or air in the soft tissue. No soft tissue swelling. The X-rays wereinterpreted by the radiologist.Laboratory Tests: Urinalysis: (OLE: 02/17/2021 08:55) ( MsgRcvd 02/17/2021 09:31) Final results Test Result Flag Units (Reference) URINALYSIS URINALYSIS SOURCE R COLOR yellow (NORMAL: Yello CLARITY hazy (NORMAL: Clear SPEC GRAVITY 1.015 (1.001 - 1.030 pH 8 (5 - 9) GLUCOSE NORM (NORMAL: Negat BILIRUBIN NEG (NORMAL: Negat KETONE NEG (NORMAL: Negat PROTEIN NEG (NORMAL: Negat NIT RITE NEG (NORMAL: Negat BLOOD 25 A (NORMAL: Negat LEUK EST 100 A (NORMAL: Negat UROBILINOGEN NOR (less than 1.0 MICROSCOPIC See Below WBC 10 - 15 A (NORMAL: NONE RBC 15 - 20 A (NORMAL: NONE EPITHELIAL MODERATE A (NORMAL: NONE BACTERIA 1+ SMALL (NORMAL: NONE AMORPH SED 2+ (NORMAL: NONE CRYSTALS See Below TRIPLE PHOS 3+ A (NORMAL: NONE.PROGRESS AND PROCEDURESCourse of Care: 09:26 02/17/21. Patient had a CT soft tissue neck done yesterday with urinalysis. Patienthalandy had multiple UA done over last several months at [facility]. Not currently on antibiotics 3 Clinical Report - Physicians/Mid Levels [facility] Emergency Department [address] [place] [address] Phone #: ext- [phone] 02/17/2021 07:54 Patient: FABIANO RAMIREZ Sex: F : 1955 Age: 65y 10:04 02/17/21. Laboratories reviewed from previous visits. Unclear if clean catch specimen was contaminated yesterday and today, or indicative of true urinary tract infection. Patient will be started on Bactrim DS. urine culture sent. New air cast splint applied per patient request. Old medical records ordered. Patient has had multiple ED visits. Disposition: Discharged. Condition: stable.CLINICAL IMPRESSION Superficial pressure ulcer on the right 2nd toe. Skin breakdown present. Acute cystitis. No hematuria present.INSTRUCTIONS Wear splint. Warnings: Further evaluation is necessary. GENERAL WARNINGS: Return or contact your physician [...] Tablet 10 mg, at bedtime. Prescription Medications: Bactrim DS 800 mg-160 mg tablet Take 1 tablet twice a day for 7 days -- Dispense 14 tablet. Refills: 0. Substitution permitted. Pharmacy - [id number] - [address] ; [place] [address]. . 4 Clinical Report - Physicians/Mid Levels [facility] Emergency Department [address] [place] [address] Phone #: ext- [phone] 02/17/2021 07:54 Patient: FABIANO RAMIREZ Sex: F : 1955 Age: 65y Follow-up: Follow up with your healthcare provider. Understanding of the discharge instructions verbalized by patient.(Electronically signed by Serge Echeverria 02/17/2021 11:03) Name Value Range Interpretation Code Description Data Melanie rce(s) Supporting Document(s) ID Date Data Source [id number] 02/20/2021 07:22:00 AM EDT [facility] Name Value Range Interpretation Code Description Data Melanie rce(s) Supporting Document(s) CULTURE URINE [facility] _CULTURE URINE_$$[id number]$$[id number]$$[id number]$$[id number]$$609425$$428961$$847196$$340892$$080528$$ 069160$$139187$$865671$$747953$$351320$$768605$$093722$$123231$$107648$$002745$$ 296325$$362543$$968842$$802652$$583973$$629938$$506596$$329257 -- Continued on next page --Patient: CANDIDO MARIO Order: [id number] Page 2Culture: CULTURE URINE Status: Final ====$$[id number]$$[id number] DATE/TIME: 02/19/2021 08:06Culture: CULTURE URINE Status: FinalUrine Culture,Comprehensive: [id number] urogenital flora25,000-50,000 colony forming units per mLP1 Test performed by: [facility]Day[facility] HospitalKATY #: [id number] [address] [id number] [facility] [id number] Director : Ross Jeffers MD NPI #:Embedded Processor : [id number]/[email or web address] REF ID Date Data Source [id number] 02/17/2021 09:31:00 AM EDT [facility] Name Value Range Interpretation Code Description Data Melanie rce(s) Supporting Document(s) [facility]INALYSIS SOURCE R [facility] COLOR yellow NORMAL: Yellow [facility] CLARITY hazy NORMAL: Clear [facility] Specific gravity of Urine by Test strip 1.015 1.001 - 1.030 [facility] pH 8 5 - 9 [facility] Glucose [Mass/volume] in Urine by Test strip NORM NORMAL: Negat [facility] Bilirubin.total [Presence] in Urine by Test strip NEG NORMAL: Negative [facility] Ketones [Presence] in Urine by Test strip NEG NORMAL: Negative [facility] Protein [Mass/volume] in Urine by Test strip NEG NORMAL: Negat [facility] Nitrite [Presence] in Urine by Test strip NEG NORMAL: Negative [facility] BLOOD 25 NORMAL: Negative [facility] LEUK EST 100 NORMAL: Negative [facility] Urobilinogen [Mass/volume] in Urine by Test strip NOR less deanna n 1.0 mg/dL [facility] MICROSCOPIC See Below [facility] ital WBC 10 - 15 NORMAL: NONE SEEN A [facility] Erythrocytes [#/volume] in Urine by Test strip 15 - 20 NORMAL: NON E SEEN A [facility] EPITHELIAL MODERATE NORMAL: NONE SEEN A [facility] Bacteria [Presence] in Urine sediment by Light microscopy 1+ SMALL NORMAL: NONE SEEN [facility] Amorphous sediment [Presence] in Urine sediment by Light yong roscopy 2+ NORMAL: NONE SEEN [facility] Crystals [type] in Urine sediment by Light microscopy See Below [facility] TRIPLE PHOS 3+ NORMAL: NONE SEEN A [facility] ID Date Data Source [id number] 12/10/2020 05:37:00 AM EDT [facility] 1 OrderSheet [facility] Emergency Department [address] [place] [address] Phone #: ext- [phone] 12/10/2020 05:37 Patient: FABIANO RAMIREZ Sex: F : 1955 Age: 65yWEIGHT:68.0 kg (S) HEIGHT:59 inches (S) BMI:30.3ALLERGIES: Darvacet, Demerol, MicrodentinCHIEF COMPLAINT: dysuriaDIAGNOSIS: Urinary tract infectious diseaseLAB ORDERSOrder Description Priority Entered Acknowledged InitialedUrinalysis (Clean STAT 05:49 12/10/2020 05:49 YannCatch) Roxanne LernerNFreya R.N.; Per protocol; Xavier Robertson PhysicianCulture, Urine STAT 06:58 12/10/2020 07:04 Yann(Urine, Clean Xavier EganNFreyaCatch) Physician;DIAGNOSTIC STUDY ORDERSOrder Description Priority Entered Acknowledged InitialedMEDICATION/IV/DRIP/FLUID ORDERSOrder Description Priority Entered Acknowledged InitialedMacrobid PO 100 07:02 12/10/2020 07:11 mg Yann (NOW) Xavier Oliveira R.N. Physician;GENERAL ORDERSOrder Description Priority Entered Acknowledged InitialedSplint (Aircast) R 07:03 12/10/2020 07:11 Madeline Lerner R.N. Physician;[Electronically signed by Xavier Robertson Physician (07:04 12/10/2020)][Electronically signed by Roxanne Lerner R.N. (07:14 12/10/2020)][Electronically locked by Roxanne Lerner R.N. (07:14 12/10/2020)] Name Value Range Interpretation Code Description Data Melanie rce(s) Supporting Document(s) ID Date Data Source [id number] 12/10/2020 05:37:00 AM EDT [facility] 1 Medication Reconciliation Report [facility] Emergency Department [address] [place] [address] Phone #: ext- [phone] 12/10/2020 05:37 Patient: FABIANO RAMIREZ Sex: F : 1955 Age: 65yWeight: 68.0 kgHeight/Length: 59 in.BMI: 30.3ALLERGIES: Darvacet, Demerol, MicrodentinThe patient's Home Medications are [...] patient in the Emergency Department: 2 Medication Re conciliation Report [facility] Emergency Department [address] [place] [address] Phone #: ext- [phone] 12/10/2020 05:37 Patient: FABIANO RAMIREZ Sex: F : 1955 Age: 65yMacrobid [PO] PO 100 mg, administered: 07:11 12/10/2020The following Medications were prescribed to the patient:Macrobid 100 mg capsule Take 1 capsule twice a day for 7 days -- Dispense 14 capsule. Refills: 0.Substitution permitted.Pharmacy - [id number] - [address] [place] [address]. . -- Xavier Robertson, Physician Name Value Range Interpretation Code Description Data Melanie rce(s) Supporting Document(s) ID Date Data Source [id number] 12/10/2020 05:37:00 AM EDT [facility] 1 Medication Administration Record [facility] Emergency Department [address] [place] [address] Phone #: [phone]- [phone] 12/10/2020 05:37 Patient: FABIANO RAMIREZ Sex: F : 1955 Age: 65yWeight: 68.0 kgHeight/Length: 59 inBMI: 30.3ALLERGIES: Darvacet, Demerol, Microdentin Date/Time Medication Administered Medication OrderedGiven MACROBID [PO] (NITROFURANTOIN Macrobid PO 100 mg (NOW)07:11 12/10/2020 MONOHYD MACRO)Roxanne Lerner R.N. Dose: 100 mg PO Name Value Range Interpretation Code Description Data Melanie rce(s) Supporting Document(s) ID Date Data Source [id number] 12/10/2020 05:37:00 AM EDT [facility] 1 General Instructions [facility] Emergency Department [address] [place] [address] Phone #: ext- [phone] 12/10/2020 05:37 Patient: FABIANO RAMIREZ Sex: F : 1955 Age: 65yAcute urinary tract infection with cystitis. No h ematuria.Chronic ankle pain.INSTRUCTIONSDrink plenty of fluids.(wear Air cast).Warnings: GENERAL WARNINGS: Return or contact your physician immediately if your conditionworsens or changes unexpectedly, if not improving as expected, or if other problems arise.Prescription Medications:Macrobid 100 mg capsule Take 1 capsule twice a day for 7 days -- Dispense 14 capsule. Refills: 0.Substitution permitted.Pharmacy - [id number] - [address] ; [place] [address]. .Follow-up:Follow up with your healthcare provider in three days for staple removal. Call for an appointment. Summaryof care provided to patient via paper.Understanding of the discharge instructions verbalized. ADDITIONAL INFORMATIONBladder Infection, Female (Adult) 2 General Instructions [facility] Emergency Department [address] [place] [address] Phone #: ext- [phone] 12/10/2020 05:37 Patient: FABIANO RAMIREZ Sex: F : 1955 Age: 65yUrine normally doesn't have any germs (bacteria) in [...] urinating Having to urinate more often than normal Urgent need to urinate 3 General Instructions [facility] Emergency Department [address] [place] [address] Phone #: ext- [phone] 12/10/2020 05:37 Patient: FABIANO RAMIREZ Sex: F : 1955 Age: 65y Only a small amount of urine comes [...] urine. Fluid loss (dehydration) Constipation Having sex Using a diaphragm for controlTreatment 4 General Instructions [facility] Emergency Department [address] [place] [address] Phone #: ext- [phone] 12/10/2020 05:37 Patient: FABIANO RAMIREZ Sex: F : 1955 Age: 65yBladder infections are diagnosed by a urine test [...] fluids. This helps to prevent dehydration and flu sh out your bladder. Do this unless you [...] have sex to flush out your bladder. If you use control pills and have frequent bladder infections, discuss it with your healthcare provider.Follow-up care 5 General Instructions [facility] Emergency Department [address] [place] [address] Phone #: ext- [phone] 12/10/2020 05:37 Patient: FABIANO RAMIREZ Sex: F : 1955 Age: 65yCall your healthcare provider if all symptoms are not gone after 3 days of treatment. This is especiallyimportant if you have repeat infections.If a culture was done, you will be told if your treatment needs to be changed. If directed, you cancall to find out the results.If X-rays were done, you will be told if the results will affect your treatment.Call [phone] if any of the following occur: [...] swelling in the outer vaginal area (labia) hyaqu. [address] [place] [address]. All rights reserved. This information is not intended as asubstitute for professional medical care. Always follow your healthcare professional's instructions. You have been given the following additional information: Bladder Infection, Female (Adult) 6 General Instructions [facility] Emergency Department [address] [place] [address] Phone #: ext- [phone] 12/10/2020 05:37 Patient: FABIANO RAMIREZ Sex: F : 1955 Age: 65y(Electronically signed by Xavier Robertson, Physician 12/10/2020 07:04) Name Value Range Interpretation Code Description Data Melanie rce(s) Supporting Document(s) ID Date Data Source [id number] 12/10/2020 05:37:00 AM EDT [facility] 1 Clinical Report - Nurses [facility] Emergency Department [address] [place] [address] Phone #: ext- [phone] 12/10/2020 05:37 Patient: FABIANO RAMIREZ Sex: F : 1955 Age: 65yTRIAGEArrived by EMS. Historian: EMS and patient. ( Patient states that she has a burning sensation when sheurinates. Patient also states that her aircast on her right foot is broken. Patient also complains of severeback pain.).Acuity: LEVEL 3.Chief Complaint: DYSURIA, BACK PAIN and LEG PAIN.Alert. No acute distress.This started today.Treatment DECKHAND:None.SEPSIS SCREEN: SIRS SCREEN NEGATIVE. SEPSIS SCREEN NEGATIVE. No suspected or confirmedsigns of infection present. --05:43 12/10/20 Noam Carney05:38 12/10/20. BP: 150/77 taken on the right arm, via an automated monitor, while sitting. MAP: 101.HR: 98 (regular, normal rate and strong). RR: 18 (regular, unlabored and normal). O2 saturation: 96% onroom air. Temp: 98.1 F (oral). Pain level now: 04/29. --05:43 12/10/20 Noam Carney.Weight: 68 kg stated. Height/Length: 59 inches Per Patient. BMI: 30.3. --05:37 12/10/20 Noam Carney .MedicationsAlbuterol Sulfate Inhalation 2 unit doses. Eliquis Oral. [...] ZyPREXA Oral (Tablet 10 mg), at bedtime. --05:41 12/10/20 Noam Carney.AllergiesDarvacet.Demerol. 2 Clinical Report - Nurses [facility] Emergency Department [address] [place] [address] Phone #: ext- [phone] 12/10/2020 05:37 Patient: FABIANO RAMIREZ Sex: F : 1955 Age: 65y Microdentin. --05:41 12/10/20 Noam Carney. PROBLEMS: Spinal Tumor. Lower Extremity Pain. UTI - Urinary Tract Infection. --05:41 12/10/20 Noam Carney. History SOCIAL HX: Never smoker. No alcohol use [...] suspicion of abuse. No report of abuse. NUTRITIONAL RISK ASSESSMENT: The nutritional risk assessment revealed no deficiencies. FUNCTIONAL ASSESSMENT: Functional assessment: no impairments noted. Functional assessment performed: uses walker. LEARNING NEEDS ASSESSMENT: The learning needs assessment revealed no barriers. FALL RISK ASSESSMENT: Fall risk assessment completed. No risk factors identified. Fall interventions initiated. Patient placed on stretcher. Side rails up x2. Bed in low position. Brakes on. Call light in reach of patient. SKIN INTEGRITY ASSESSMENT: Skin integrity risk assessment completed. No skin integrity risk identified. --05:43 12/10/20 Noam Carney. FAMILY HX: No significant family medical history. --06:21 12/10/20 Xavier Robertson, Physician. Interventions Identification band on patient. To treatment room. --05:43 12/10/20 Noam Carney.PHYSICAL ASSESSMENTTo room via stretcher.GENERAL / NEURO / PSYCH: Alert. Oriented X 4. Appears in no acute distress.HEENT: Pupils equal, round and reactive to light. No facial asymmetry noted. Mucous membranes are 3 Clinical Report - Nurses [facility] Emergency Department [address] [place] [address] Phone #: ext- [phone] 12/10/2020 05:37 Patient: FABIANO RAMIREZ [facility]#: [id number] Sex: F : 1955 Age: 65y pink. RESPIRATORY: Respirations not labored. Chest nontender. CVS: Capillary refill less than 2 seconds. Pulses within normal limits. GI / : ( pain with urination). Abdomen soft and nontender and normal bowel sounds. SKIN: Skin intact. Skin is warm and dry. Normal skin turgor. --05:44 12/10/20 Noam Carney.NURSING PROGRESS NOTES( Patient ambulatory to with walker and steady gait.). --05:44 12/10/20 Noam Carney 07:11 12/10/2020 Macrobid (Nitrofurantoin Monohyd Macro) PO 100 mg given. Allergies verified and confirmed 5 rights. Information reviewed with patient. Verbalizes understanding. --07:11 12/10/20 Roxanne Ibrahim R.N. Short leg velcro splint applied to right ankle. Distal pulses intact, sensation intact and motor within normal limits. Patient tolerated the procedure well. Splinting applied by me. --07:12 12/10/20 Roxanne Lerner R.N.DISPOSITION / DISCHARGE Condition at departure: stable. No learning barriers present. Discharge instructions provided and reviewed with the patient. Reviewed warnings. Reviewed medication(s). Treatments reviewed. Reviewed referrals. Patient verbalized understanding. Written instructions provided in Gabonese. The patient was discharged home and accompanied by taxi. Sh e left ambulatory and via private vehicle. Driving (taxi). --07:13 12/10/20 Roxanne Lerner R.N. 07:12 12/10/20. BP: 147/83. MAP: 104. HR: 94. RR: 19. O2 saturation: 96%. Temp: 98.1 F. Pain level now: 7/10. --07:13 12/10/20 Roxanne Lerner R.N. ( Pt is awaiting cab at this time to take her back home.). --07:14 12/10/20 Roxanne Lerner R.N.Locked/Released at 12/10/2020 07:14 by Roxanne Lerner R.N. Name Value Range Interpretation Code Description Data Melanie rce(s) Supporting Document(s) ID Date Data Source [id number] 12/10/2020 05:37:00 AM EDT [facility] 1 Clinical Report - Physicians/Mid Levels [facility] Emergency Department [address] [place] [address] Phone #: ext- [phone] 12/10/2020 05:37 Patient: FABIANO RAMIREZ Sex: F : 1955 Age: 65y Time Seen: 06:16 12/10/2020. Arrived- By ambulance. Historian- patient.HISTORY OF PRESENT ILLNESS Chief Complaint: DYSURIA. This started 2 days ago and still present. The symptoms are described as mild. Modifying factors- worsened by urination. Not relieved by anything. No abdominal pain, pelvic pain, vaginal pain, low back pain or flank pain. No missed period(s), abnormal bleeding, vaginal discharge, vaginal itching or genital lesions. No urgency of urination or hematuria. The patient has had pain with urination. The patient has had urinary frequency. Not sexually active. Does not use control measures. Denies current . Not receiving care. Similar symptoms previously. Patient has had similar symptoms frequently. Recent medical care: The patient was seen recently in the emergency department. ( Last week for similar complaints).REVIEW OF SYSTEMSNo nausea, vomiting, diarrhea, fever or chills. No anorexia. Pain in right ankle because air cast is looseand ripped. uses walker for ambulation.PAST HISTORYSee nurses notes. Problems: Diabetes Mellitus Type 2. Sprain. Hypertension. Incontinence. Hypoglycemia. Spinal Tumor. UTI - Urinary Tract Infection. Additional Surgeries: Appendectomy. Hernia Repair. Hip Prosthesis. Spinal surgery. 2 Clinical Report - Physicians/Mid Levels [facility] Emergency Department [address] [place] [address] Phone #: ext- [phone] 12/10/2020 05:37 Patient: FABIANO RAMIREZ Sex: F : 1955 Age: 65y Medications: Albuterol Sulfate Inhalation 2 unit doses. [...] smoker. No alcohol use or drug use. Is a local resident. Resides in an apartment.FAMILY HISTORYNo significant family medical history.ADDITIONAL NOTESThe nursing notes have been reviewed with agreement regarding the chief complaint, HPI, ROS and PMH.PHYSICAL EXAMVital Signs: 12/10/2020 05:38 BP: sitting 150/77. MAP: 101. HR: 98. RR: 18. O2 saturation: 96% on roomair. Temp: 98.1 F. Pain level now: 10. Have been reviewed as abnormal. Hypertensive. Heart ratenormal. Respiratory rate normal. Temperature normal. Oxygen saturation normal.Appearance: Alert. Oriented X3. No acute distress.HEENT: Normal external inspection.Neck: Neck supple.CVS: Heart sounds normal.Respiratory: No respiratory distress. Breath sounds normal. Chest nontender.Abdomen: Soft and nontender.Skin: Normal skin color.Extremities: Lower extremity edema. (tenderness right lower extremitie).Neuro: Oriented X 3. (ambulates well with walker).LABS, X-RAYS, AND EKGLaboratory Tests: Laboratory tests have been ordered, with results reviewed and considered in themedical decision making process. 3 Clinical Report - Physicians/Mid Levels [facility] Emergency Department [address] [place] [address] Phone #: ext- [phone] 12/10/2020 05:37 Patient: FABIANO RAMIREZ Sex: F : 1955 Age: 65y Urinalysis: (OLE: 12/10/2020 05:49) ( MsgRcvd 12/10/2020 06:55) Final results Test Result Flag Units (Reference) URINALYSIS URINALYSIS SOURCE R COLOR yellow (NORMAL: Yello CLARITY cloudy (NORMAL: Clear SPEC GRAVITY 1.015 (1.001 - 1.030 pH 8 (5 - 9) GLUCOSE NORM (NORMAL: Negat BILIRUBIN NEG (NORMAL: Negat KETONE NEG (NORMAL: Negat PROTEIN NEG (NORMAL: Negat NITRITE NEG (NORMAL: Negat BLOOD 10 A (NORMAL: Negat LEUK EST 500 A (NORMAL: Negat UROBILINOGEN NOR (less than 1.0 MICROSCOPIC See Below WBC 20 - 30 A (NORMAL: NONE RBC 3 - 5 (NORMAL: NONE EPITHELIAL MODERATE A (NORMAL: NONE BACTERIA 2+ MOD A (NORMAL: NONE AMORPH SED 2+ (NORMAL: NONE.PROGRESS AND PROCEDURESCourse of Care: 06:26 Dec 10 2020. (Patient's history obtained and exam completed. Recent ER chart reviewed. treatment plan discussed and agreed upon. Right air cast replaced. UA ordered.). Old ED records reviewed. (12/01/20).CLINICAL IMPRESSION Acute urinary tract infection with cystitis. No hematuria. Chronic ankle pain.INSTRUCTIONS Drink plenty of fluids. (wear Air cast). Warnings: GENERAL WARNINGS: Return or contact your physician immediately if your condition worsens or changes unexpectedly, if not improving as expected, or if other problems arise. 4 Clinical Report - Physicians/Mid Levels [facility] Emergency Department [address] [place] [address] Phone #: ext- [phone] 12/10/2020 05:37 Patient: FABIANO RAMIREZ Sex: F : 1955 Age: 65y Prescription Medications: Macrobid 100 mg capsule Take 1 capsule twice a day for 7 days -- Dispense 14 capsule. Refills: 0. Substitution permitted. Pharmacy - [id number] - [address] ; [place] [address]. . Follow-up: Follow up with your healthcare provider in three days for staple removal. Call for an appointment. Summary of care provided to patient via paper. Understanding of the discharge instructions verbalized.(Electronically signed by Xavier Robertson, Physician 12/10/2020 07:04) Name Value Range Interpretation Code Description Data Melanie rce(s) Supporting Document(s) ID Date Data Source [id number] 12/14/2020 09:42:00 AM EDT [facility] Name Value Range Interpretation Code Description Data Melanie rce(s) Supporting Document(s) CULTURE URINE [facility] _CULTURE URINE_$$[id number]$$[id number]$$534654$$606838$$167345$$422785$$719285$$162029$$574990$$ 354567$$398471$$403329$$885537$$904032$$492228$$686113$$438309$$059682$$767343$$ 626217$$918482$$928379$$829951$$013093$$882811$$562010$$[id number] -- Continued on next page --Patient: CANDIDO MARIO Order: Page 2Culture: CULTURE URINE Status: Final ==== -- Continued on next page --Patient: CANDIDO MARIO Order: Page 2Culture: CULTURE URINE Status: Prelim =====$$[id number]$$[id number] DATE/TIME: 12/14/2020 09:06Culture: CULTURE URINE Status: FinalIsolate 1 Escherichia coli Flag: A . . . . . . .15,000 Colonies/mLCefazolin <=4 ug/mLCefazolin with an YONG <=16 predicts susceptibility to the oral agentscefaclor, cefdinir, cefpodoxime, cefprozil, cefuroxime, cephalexin,and loracarbef when used for therapy of uncomplicated urinary tractinfections due to E. coli, Klebsiella pneumoniae, and Proteusmirabilis. Previous result entered on 12/13/2020 05:37 ET Escherichia coliUrine Culture,Comprehensive: T1Xxyapoynrmm coli Flag: APatient: CANDIDO MARIO Order: Page 3Culture: CULTURE URINE Status: Final ISOLATE 1 Escherichia coli Isolate 1Antibiotic YONG IntUnits ug/mL Amoxicillin/Clav ulanic Acid S S . . . . . .20-8Ampicillin R R . . . . . .28-1Cefepime S S . . . . . .6644-9Ceftriaxone S S . . . . . .141-2Ciprofloxacin R R . . . . . .185-9Ertapenem S S . . . . . .77235-9Zeosohxnnj S S . . . . . .267-5Imipenem S S . . . . . .279-0Levofloxacin R R . . . . . .99940- 8Meropenem S S . . . . . .6652-2Nitrofurantoin S S . . . . . .363-2Piperacillin/Tazobactam S S . . . . . .412-7Tetracycline S S . . . . . .496-0Tobramycin S S . . . . . .508-2 Trimethoprim/Sulfa S S . . . . . .516-5P1 Test performed by: [facility] #: [id number] [address] [place] [address] [id number] [facility] [id number] Director : Ross Jeffers MD NPI #:Embedded Processor : 12/13/20.1334.XMT.SENT REF 12/14/20.0942.XMT.SENT REF ID Date Data Source [id number] 12/10/2020 06:34:00 AM EDT [facility] Name Value Range Interpretation Code Description Data Melanie rce(s) Supporting Document(s) URINALYSIS [facility] URINALYSIS SOURCE R [facility] COLOR yellow NORMAL: Yellow [facility] CLARITY cloudy NORMAL: Clear [facility] Specific gravity of Urine by Test strip 1.015 1.001 - 1.030 [facility] pH 8 5 - 9 [facility] Glucose [Mass/volume] in Urine by Test strip NORM NORMAL: Negat [facility] Bilirubin.total [Presence] in Urine by Test strip NEG NORMAL: Negative [facility] Ketones [Presence] in Urine by Test strip NEG NORMAL: Negative [facility] Protein [Mass/volume] in Urine by Test strip NEG NORMAL: Negat [facility] Nitrite [Presence] in Urine by Test strip NEG NORMAL: Negative [facility] BLOOD 10 NORMAL: Negative [facility] Leukocyte esterase [Presence] in Urine by Test strip 500 KANE L: Negative [facility] Urobilinogen [Mass/volume] in Urine by Test strip NOR less deanna n 1.0 mg/dL [facility] MICROSCOPIC See Below [facility] ital WBC 20 - 30 NORMAL: NONE SEEN [facility] Erythrocytes [#/volume] in Urine by Test strip 3 - 5 NORMAL: NON E SEEN [facility] EPITHELIAL MODERATE NORMAL: NONE SEEN A [facility] Bacteria [Presence] in Urine sediment by Light microscopy 2+ MOD NORMAL: NONE SEEN [facility] Amorphous sediment [Presence] in Urine sediment by Light yong roscopy 2+ NORMAL: NONE SEEN [facility] ID Date Data Source [id number] 12/06/2020 09:09:00 AM EDT [facility] [address] [place] [address] PHONE: [phone] FAX: [phone] Name .................. : CANDIDO MARIO Acct Number.................. : [id number] ROOM. ................. : VT-05 Number ................... : [id number] Stay type ............. : E/R Discharge Date......... ... : 12/01/20 Admit Date ......... : 12/01/20 Admit Phys .................... : WENCESLAOCO Date of ....... : 1955 Family Phys ................... : JENNY NAN Phone .................. : [phone] Age ................................ : 65 Film# .................. .:[id number] Sex ................................. : F Unsigned transcriptions are preliminary reports and do not represent a medical or legal document CT ST NECK W/O CONTRAST [id number] COMPLETE:12/01/20 15:07 RUFUS [id number] Reason(s): evaluate for foreign body as she has fb sensation on swallowin CT SOFT TISSUE NECK WITHOUT CONTRAST, 12/01/20: This study was evaluated at the time of the examination. Preliminary results were generated and given to the emergency room at that time. Prior examination: None available. FINDINGS: CT scan of the soft tissues of the neck was obtained without the use of intravenous contrast at the request of their physician. There is no radiopaque foreign body noted on the current study. There is apparent dilatation of the proximal esophagus with what appears to be debris/soft tissue in the esophagus, and ENT consult is suggested for further evaluation and management. There is apposition of the true vocal cord, limiting evaluation. There are no other areas of airway narrowing. Soft tissues are not well evaluated without intravenous contrast. Significant or definitive adenopathy is not appreciated in the limits of the current non-contrast study. There is some mild bilobar scarring. Evaluation of the face was paranasal sinuses and mastoid air cells demonstrate a small amount of mucopurulence in the left mastoid sinus. Evaluation of the visualized skeleton demonstrates mild degenerative changes. IMPRESSION: No radiopaque foreign body is noted on the current study. Apparent dilatation of the proximal esophagus is the debris source/soft tissue in the proximal esophagus, and further evaluation, Page 1 of [address] [place] [address] PHONE: [phone] FAX: [phone] Name .................. : CANDIDO MARIO Acct Number.................. : [id number] ROOM. ................. : VT-05 MR Number ................... : [id number] Stay type ............. : E/R Discharge Date......... ... : 12/01/20 Admit Date ......... : 12/01/20 Admit Phys .................... : CHANLIECCO Date of ....... : Family Phys ................... : JENNY NAN Phone .................. : [phone] Age ................................ : 65 Film# .................. .:[id number] Sex ................................. : F Unsigned transcriptions are preliminary reports and do not represent a medical or legal document CT ST NECK W/O CONTRAST [id number] COMPLETE:12/01/20 15:07 RUFUS [id number] Reason(s): evaluate for foreign body as she has fb sensation on swallowin including an ENT consult, is suggested. These results were conveyed to the emergency room at the time of the examination. While performing the above CT examination, radiation dose reduction was accomplished utilizing automated exposure control, adjusting of the mA and kV based on the patient's body size and/or the use of imperative reconstructive techniques. CT dose 204 mGycm. Electronically Reviewed and Signed By Alf Glass MD , 12/06/20 09:09, RAYNE Transcribe Initials: TANVI, Transcribe Date: 12/05/20 10:47, Dictation Date: Copy for: EMERGENCY DEPT via modem Copy for: 710 MED REC DISCHARGED Page 2 of 2 Name Value Range Interpretation Code Description Data Melanie rce(s) Supporting Document(s) ID Date Data Source [id number] 12/01/2020 12:20:00 PM EDT [facility] 1 OrderSheet [facility] Emergency Department [address] [place] [address] Phone #: ext- [phone] 12/01/2020 12:07 Patient: FABIANO RAMIREZ Sex: F : 1955 Age: 65yWEIGHT:71.9 kg (M) HEIGHT:59 inches (S) BMI:32.0ALLERGIES: Darvacet, Demerol, MicrodentinCHIEF COMPLAINT: sore throat, FB sensation in throatDIAGNOSIS: DysphagiaLAB ORDERSOrder Description Priority Entered Acknowledged InitialedDIAGNOSTIC STUDY ORDERSOrder Description Priority Entered Acknowledged InitialedCT Neck Soft STAT 13:26 12/01/2020 13:30 Mikaela Landis W/O Cont Karen Lilly R.N.(Oxygen?(No)) ; Reason for Study: evaluate for foreign body as she has fb sensation on swallowing after she choked on chicken boneMEDICATION/IV/DRIP/FLUID ORDERSOrder Description Priority Entered Acknowledged InitialedGI Cocktail PO 50 12:34 12/01/2020 12:40 Boby,Blake with Lidocaine Karen Lilly R.N.Viscous ;Mouth/Throat 10mL, Maalox Oral 30mL, Oral10 mLAtivan IM 1 mg 14:20 12/01/2020 14:25 Boby,(HIGH ALERT Karen Lilly R.N.MEDICATION, ;NOW)GENERAL ORDERSOrder Description Priority Entered Acknowledged Initialed[Electronically signed by Myles Landis R.N. (16:50 12/01/2020)][Electronically signed by Kraen Lilly (19:10 12/01/2020)][Electronically locked by Myles Landis R.N. (16:50 12/01/2020)] Name Value Range Interpretation Code Description Data Melanie rce(s) Supporting Document(s) ID Date Data Source [id number] 12/01/2020 12:20:00 PM EDT [facility] 1 Medication Reconciliation Report [facility] Emergency Department [address] [place] [address] Phone #: ext- [phone] 12/01/2020 12:07 Patient: FABIANO RAMIREZ Sex: F : 1955 Age: 65yWeight: 71.9 kgHeight/Length: 59 in.BMI: 32.0ALLERGIES: Darvacet, Demerol, MicrodentinThe patient's Home Medications are [...] the Emergency Department: 2 Medication Reconciliation Report [facility] Emergency Department [address] [place] [address] Phone #: ext- [phone] 12/01/2020 12:07 Patient: FABIANO RAMIREZ Sex: F : 1955 Age: 65yGI Cocktail [PO] PO 50 mL, administered: 12:40 12/01/2020tivan [IM] IM 1 mg, administered: 14:25 12/01/2020The following Medications were prescribed to the patient:None. Name Value Range Interpretation Code Description Data Melanie rce(s) Supporting Document(s) ID Date Data Source [id number] 12/01/2020 12:20:00 PM EDT [facility] 1 Medication Administration Record [facility] Emergency Department [address] [place] [address] Phone #: ext- [phone] 12/01/2020 12:07 Patient: FABIANO RAMIREZ Sex: F : 1955 Age: 65yWeight: 71.9 kgHeight/Length: 59 inBMI: 32ALLERGIES: Darvacet, Demerol, Microdentin Date/Time Medication Administered Medication OrderedGiven GI COCKTAIL [PO] (CALCIUM GI Cocktail PO 50 mL with12:40 12/01/2020 CARBONATE ANTACID) Lidocaine Viscous Mouth/ThroatGroves, Ayo Bueno Dose: 50 mL Oral Suspension PO 10 mL, Maalox Oral 30 mL, Oral 10 mLGiven ATIVAN [IM] (LORAZEPAM) Ativan IM 1 mg (HIGH ALERT14:25 12/01/2020 Dose: 1 mg IM MEDICATION, NOW)Myles Landis R.N. Name Value Range Interpretation Code Description Data Melanie rce(s) Supporting Document(s) ID Date Data Source [id number] 12/01/2020 12:20:00 PM EDT [facility] 1 General Instructions [facility] Emergency Department [address] [place] [address] Phone #: ext- [phone] 12/01/2020 12:07 Patient: FABIANO RAMIREZ Sex: F : 1955 Age: 65yOropharyngeal dysphagia. Not secondary to CVA.INSTRUCTIONS(follow up with ENT and or GI for pain on swallowing. there is no foreign body on the Ct scan of thesoft tissue of the neck).Your Current Medications: Your current home medications have [...] day.ZyPREXA Oral : Tablet 10 mg, at bedtime.Follow-up:Follow up with your healthcare provider Friday if not better. Reason for referral: evaluation. Summary ofcare provided to patient via paper. Follow up with an ear, nose and throat physician (an material damage adjuster)and a wicker molded candles in three days. Reason for referral: evaluation. Summary of care provided to shanika paper. ADDITIONAL INFORMATIONDysphagia (Adult) 2 General Instructions [facility] Emergency Department [address] [place] [address] Phone #: ext- [phone] 12/01/2020 12:07 Patient: FABIANO RAMIREZ Sex: F : 1955 Age: 65y Dysphagia is trouble swallowing. If you have dysphagia,you may have symptoms that include: Choking or coughing when you eat or drink Food getting stuck Drooling Inability to swallow Pain behind the breastbone after swallowing Vomiting after you eat or drink Aspirating (inhaling into the lungs) foods or liquids when you swallowThe main causes of dysphagia are problems that affect the mouth, throat or tongue. Dysphagia maybe caused by a problem with the esophagus (tube that carries food from the mouth to the stomach).These include blockage, swelling, or irritation from acid reflux or injury. An infection of the esophagusor an allergic reaction in the esophagus can also cause dysphagia. Problems in the brain, such as astroke or Parkinson's disease, can affect the muscles that coordinate swallowing.Dysphagia is treated by treating the cause. Your healthcare provider may evaluate you using X-ray, 3 General Instructions [facility] Emergency Department [address] [place] [address] Phone #: ext- [phone] 12/01/2020 12:07 Patient: FABIANO RAMIREZ Sex: F : 1955 Age: 65yspecial esophagus monitors, a fiber optic evaluation of swallowing, or an upper endoscopy, whichuses a thin, lighted tube sent through the mouth to the esophagus. You may be given medicine toreduce stomach acid or control muscle spasms. If the problem doesn't go away, a procedure can bedone to widen (dilate) the esophagus. If you have muscle or nerve problems, you may be advised tosee a speech or occupational therapist. He or she may give you exercises and instructions to helpmake eating safer. If you have an infection or allergic condition, your healthcare provide will prescribemedicine for it.Home careTo help ease the symptoms of dysphagia: Take any medicine you've been given exactly as directed. Ask for liquid medicines if you need them. To make eating easier: o Eat slowly. o Eat in a relaxed setting. o Don't talk while you eat. o Take small bites. Chew slowly and completely before you swallow. o Sit upright during and after meals. Chewing food releases enzymes in your mouth that start the digestive process. Chew soft foods at least 5 to10 times. Chew more dense food (meats and vegetables) up to 30 times before swallowing. Count the number of times you chew until you get a sense of how soft the food needs to be before swallowing. o Don't eat dry bread products or meat fibers. o Puree solid foods if needed. Thicken liquids with milk, juice, broth, gravy, or starch to make them easier to swallow. o Ask your healthcare provider if a liquid diet may be better for you.Follow- up careFollow up with your healthcare provider or as directed. Your healthcare provider can give youinformation about tests you may need.When to seek medical adviceCall your healthcare provider right away for any of the followin General Instructions [facility] Emergency Department [address] [place] [address] Phone #: ext- [phone] 12/01/2020 12:07 Patient: FABIANO RAMIREZ Sex: F : 1955 Age: 65y Inability to keep down food or liquid Symptoms that get worse quickly Coughing that won't stop Continuing to lose weight Fever of 100.4F (38C) or higher, or as directed by your healthcare provider Other symptoms as indicated by your healthcare providerCall 911Cemanate health/[facility] for any of the following: Trouble breathing Inability to talk Drooling, inability to control secretions Loss of consciousness [phone] [employer]. [address] [place] [address]. All rights reserved. This information is not intended as asubstitute for professional medical care. Always follow your healthcare professional's instructions. You have been given the following additional information: Dysphagia (Adult)(Electronically signed by Karen Lilly 12/01/2020 19:10) Name Value Range Interpretation Code Description Data Melanie rce(s) Supporting Document(s) ID Date Data Source [id number] 12/01/2020 12:20:00 PM EDT [facility] 1 Clinical Report - Nurses [facility] Emergency Department [address] [place] [address] Phone #: ext- [phone] 12/01/2020 12:07 Patient: FABIANO RAMIREZ Sex: F : 1955 Age: 65yTRIAGEArrived by EMS. Historian: EMS and patient.Acuity: LEVEL 4.Chief Complaint: SORE THROAT.This started yesterday. ( Per EMS, they state pt got a piece of chicken caught in her throat yesterday andwent [facility] to have it extracted which she did but now per EMS, they state pt is still c/o a sore throat).EMS Treatment DECKHAND:EMS treatment verbally communicated and report reviewed. See report.SEPSIS SCREEN: SIRS SCREEN NEGATIVE: heart rate greater than 90. SEPSIS SCREEN NEGATIVE.No suspected or confirmed signs of infection present.THA COMA SCORE: 15- eyes open- spontaneous (4); best verbal response- oriented (5); bestmotor response- obeys commands (6). --12:12/01/20 Naresh Guzman RN12:12/01/20. BP: 137/77. MAP: 97. HR: 99. RR: 20. O2 saturation: 97% on room air. Temp: 98.3 F(oral). Pain level now: 01/27. --12:12/01/20 Naresh Guzman RN.Weight: 71.9 kg measured. Height/Length: 59 inches Per Patient. BMI: 32. --12:12/01/20 Naresh Guzman RN.MedicationsAlbuterol Sulfate Inhalation 2 unit doses. Eliquis Oral. --12:12/01/20 Naresh Guzman RN HYDROcodone-Acetaminophen Oral (Solution 7.5-325 mg/15mL), as needed. KlonoPIN Oral 0.25 mg, at bedtime. --12:12/01/20 Naresh Guzman RN LaMICtal Oral (Tablet 25 mg), 2x a day. Meclizine HCl Oral 50 mg, 2x a day. MiraLax Oral 1 packet. Mot rin IB Oral 400, as needed. Potassium Chloride Oral (Packet 20 meq), 2x a day. Promethazine HCl Oral (Tablet 25 mg), as needed. Sudafed Oral 60 mg, 2x a day. ZyPREXA Oral (Tablet 10 mg), at bedtime. --12:12/01/20 Naresh Guzman RN.AllergiesDarvacet. 2 Clinical Report - Nurses [facility] Emergency Department [address] [place] [address] Phone #: ext- [phone] 12/01/2020 12:07 Patient: FABIANO RAMIREZ Sex: F : 1955 Age: 65y Demerol. Microdentin. --12:12/01/20 Naresh Guzman RN. History PAST MEDICAL HX: Immunizations: up-to-date. The patient is post-menopausal. SOCIAL HX: Never smoker. No alcohol use or drug use. She was offered HIV testing but declined and hepatitis C testing but declined. She has not traveled outside the [place] Infectious disease exposure: No infectious disease exposure. The patient was not exposed to Coronavirus. SELF HARM ASSESSMENT: Self harm assessment was performed. The patient answered "no" to the question(s) "Have you recently felt down, depressed, or hopeless?", "Do you have thoughts of harming or killing yourself?", "Do you have a plan for harming or killing yourself?", "Have you recently had thoughts about harming or killing others?", "Do you have any martinez erous items in your possession?", "Have you noticed less interest or pleasure in doing things?", "Are you here because you tried to hurt yourself?" and "Have you ever tried to hurt yourself before today?". ABUSE ASSESSMENT: No report of abuse. NUTRITIONAL RISK ASSESSMENT: The nutritional risk assessment revealed no deficiencies. FUNCTIONAL ASSESSMENT: Functional assessment: no impairments noted. Functional assessment performed: requires assistance with the activities of daily living; uses walker. LEARNING NEEDS ASSESSMENT: The learning needs assessment revealed no barriers. FALL RISK ASSESSMENT: Fall risk assessment completed. Risk factors identified include patient history of fall and impairment of mobility. SKIN INTEGRITY ASSESSMENT: Skin integrity risk assessm ent completed. No skin integrity risk identified. --12:26 12/01/20 Naresh Guzman RN. Interventions To treatment room. --12:27 12/01/20 Naresh Guzman RN.PHYSICAL ASSESSMENTGENERAL / NEURO / PSYCH: Alert. Oriented X 4. Appears in no acute distress.HEENT: Pupils equal, round and reactive to light. Mouth within normal limits upon inspection. No dentalinjury noted.RESPIRATORY: Respirations not labored.SKIN: Skin is warm and dry. --12:46 12/01/20 Myles Landis R.N.NURSING PROGRESS NOTESNIBP monitor and pulse oximeter placed on patient; monitor alarms on. Patient gowned. Head of bedelevated. Reassurance given. Call light placed in reach. Side rails up x 2. Bed placed in lowest 3 Clinical Report - Nurses [facility] Emergency Department [address] [place] [address] Phone #: ext- [phone] 12/01/2020 12:07 [id number] Sex[facility] F : 1955 Age: 65y position. Brakes of bed on. Patient ready for evaluation- ED physician and PA notified. --12:27 12/01/20 Naresh Guzman RN 12:40 12/01/2020 GI Cocktail (Calcium Carbonate Antacid) PO Oral Suspension 50 mL given. --12:40 12/01/20 Myles Landis R.N. Reassessment after medication administered. Pain still present but improving. Overall patient status is improved- she states feels better. GENERAL / NEURO / PSYCH: Alert. Oriented X 4. --13:02 12/01/20 Myles Landis R.N. Patient returned from CT by wheelchair with tech. --14:20 12/01/20 Myles Landis R.N. ( Unable to get comfortable in CT). --14:21 12/01/20 Myles Landis R.N. 14:25 12/01/2020 Ativan (LORazepam) IM 1 mg given. Given in the left deltoid. Allergies verified and confirmed 5 rights. Information reviewed. Verbalizes understanding. --14:25 12/01/20 Myles Landis R.N. Patient returned from CT by wheelchair with tech. --15:07 12/01/20 Myles Landis R.N. ( Pt is erratic in behavior requesting to be put to sleep for CT. RN escorted back to ND and comple laureen.). --15:08 12/01/20 Myles Landis R.N.DISPOSITION / DISCHARGE No learning barriers present. Discharge instructions provided and reviewed with the patient and the patient left prior to discharge education being provided. Patient verbalized understanding. Written instructions provided in Gabonese. The patient was discharged by the physician. She was discharged home. She left ambulatory. Enrolled Nurse driving. --16:49 12/01/20 Myles Landis R.N. 16:48 12/01/20. BP: 142/86. MAP: 104. HR: 74. RR: 18. O2 saturation: 97%. Temp: deferred. Pain level now: 08/30. --16:49 12/01/20 Myles Landis R.N. Departure time: 16:50 12/01/2020. --16:50 12/01/20 Myles Landis R.N.Locked/Released at 12/01/2020 16:50 by Myles Landis R.N. Name Value Range Interpretation Code Description Data Melanie rce(s) Supporting Document(s) ID Date Data Source [id number] 12/01/2020 12:20:00 PM EDT [facility] 1 Clinical Report - Physicians/Mid Levels [facility] Emergency Department [address] [place] [address] Phone #: ext- [phone] 12/01/2020 12:07 Patient: FABIANO RAMIREZ Sex: F : 1955 Age: 65y Time Seen: 12:28 12/01/2020; initial patient contact, initial documentation. Arrived- By ambulance. Historian- patient. Disposition decision: 16:27 12/01/2020.HISTORY OF PRESENT ILLNESS Chief Complaint: SORE THROAT. FOREIGN BODY SENSATION IN THROAT. This started yesterday and is still present (persistent 1 day DECKHAND). It was abrupt in onset and has been constant. Pain described as moderate. The patient has had a sore throat. No mouth sores, nasal discharge or congestion or toothache. No swollen jaw or face, jaw pain or facial pain. (Patient states that she choked on a chicken bone yesterday and felt like there is something stuck on her throat. she has pain on swallowing. she was seen at [facility] where they did an xray of the soft tissue of the neck and was read as no foreign body. she was not given anything for pain. she states that she still has pain when she swallows so she called 911).REVIEW OF SYSTEMSNo fever, eye discomfort, cough, difficulty breathing or nausea. No diarrhea, abdominal pain, difficulty withurination, headache or fainting episodes. No joint pain, skin rash, enlarged lymph nodes or vomiting. Allother systems reviewed and are negative.PAST HISTORYSee nurses notes. Problems: Incontinence. Hypoglycemia. Hypertension. Lower Extremity Pain. UTI - Urinary Tract Infection. Sprain. Spinal Tumor. Islas Catheter. Cervical Strain. Arthritis. Ankle Injury. Contusion. Fall. Diabetes Mellitus Type 2. Cough. Additional Surgeries: 2 Clinical Report - Physicians/Mid Levels [facility] Emergency Department [address] [place] [address] Phone #: ext- [phone] 12/01/2020 12:07 Patient: FABIANO RAMIREZ Sex: F : 1955 Age: 65y Appendectomy. Hernia Repair. Hip Prosthesis. Spinal surgery. Medications: LaMICtal Oral (Tablet 25 mg), 2x a day. Meclizine HCl Oral 50 mg, 2x a day. MiraLax Oral 1 packet. Motrin IB Oral 400, as needed. Potassium Chloride Oral (Packet 20 meq), 2x a day. Promethazine HCl Oral (Tablet 25 mg), as needed. Sudafed Oral 60 mg, 2x a day. ZyPREXA Oral (Tablet 10 mg), at bedtime. HYDROcodone-Acetaminophen Oral (Solution 7.5-325 mg/15mL), as needed. KlonoPIN Oral 0.25 mg, at bedtime. Albuterol Sulfate Inhalation 2 unit doses. Eliquis Oral. Allergies: Darvacet. Demerol. Microdentin.SOCIAL HISTORYNever smoker. No alcohol use or drug use.ADDITIONAL NOTESThe nursing notes have been reviewed.PHYSICAL EXAMVital Signs: 12/01/2020 12:20 BP: 137/77. MAP: 97. HR: 99. RR: 20. O2 saturation: 97% on room air.Temp: 98.3 F. Pain level now: 01/27. Have been reviewed. Oxygen saturation normal.Appearance: Alert. No acute distress.Head: Normal external inspection.Eyes: Pupils equal, round and reactive to light. Conjunctivae and eyelids normal.ENT: Ears normal. Nose normal. Pharynx normal. Lips normal. Gums normal. No trismus present.Uvula midline. No muffled or hoarse voice or drooling. The mucous membranes are not dry.Neck: Normal inspection. Trachea midline. No adenopathy. Thyroid normal. Neck supple.CVS: Normal heart rate and rhythm. Heart sounds normal. Pulses normal.Respiratory: No respiratory distress. Painless inspiration. Breath sounds normal. Chest nontender.Abdomen: Soft and nontender. No organomegaly.Skin: Normal skin color. No rash. Normal skin turgor.Extremities: Extremities exhibit normal ROM. Extremities nontender.Neuro: Oriented X 3. 3 Clinical Report - Physicians/[facility] Emergency Department [address] [place] [address] Phone #: ext- [phone] 12/01/2020 12:07 Patient: FABIANO RAMIREZ Sex: F : 1955 Age: 65yLABS, X-RAYS, AND EKGCT Neck - Soft Tissue: (Quan aviles Andrew - 12/01/2020 4:12:45 PMNo radiopaque foreign body demonstrated current study. Apparent possible dilatation withdebris/undigested food in the esophagus. Incomplete distention of the visualized mid esophagus andclinical correlation is advised and further evaluation which should include ENT consult.). The study wasinterpreted by the radiologist.PROGRESS AND PROCEDURESCourse of Care: 13:27 12/01/20. patient was given GI cocktail to see if the pain on her throat will goaway. she states that she still feels something on the right side of the throat. will do CT scan of the softtissue of the neck 14:21 12/01/20. patient is anxious in ct scan and cannot lay down. will give her ativan 1 mg 16:22 12/01/20. ct of the soft tissue of the neck did not show any foreign body. she is able to swallow , no vomiting. will discharge the patient home. advised follow up with ENT and /or GI if symptoms persists. Patient counseled in person regarding the patient's stable condition and need for follow-up. Patient agrees with plan of care. 16:27. Disposition: Discharged home in good condition (16:27). Condition: good and stable. Discharge decision based on the following: patient's condition is stable; patient's exam is stable; no seriously abnormal test results; stable condition on multiple repeat evaluations; social support is adequate; transportation is available; follow-up is available; clinical impression is consistent with outpatient treatment.CLINICAL IMPRESSION Oropharyngeal dysphagia. Not secondary to CVA.INSTRUCTIONS (follow up with ENT and or GI for pain on swallowing. there is no foreign body on the Ct scan of the soft tissue of the neck). Your Current Medications: Your current home medications have been reviewed. CONTINUE TAKING THE FOLLOWING MEDICATIONS: Albuterol Sulfate Inhalation : 2 unit doses. Eliquis Oral. HYDROcodone- Acetaminophen Oral : Solution 7.5-325 mg/15mL, prn. KlonoPIN Oral : 0.25 mg, at bedtime. LaMICtal Oral : Tablet 25 mg, 2x a day. 4 Clinical Report - Physicians/Mid Levels [facility] Emergency Department [address] [place] [address] Phone #: ext- [phone] 12/01/2020 12:07 Patient: FABIANO RAMIREZ [facility]#: [id number] Sex: F : 1955 Age: 65y Meclizine HCl Oral : 50 mg 2x a day. MiraLax Oral : 1 packet. Motrin IB Oral : 400, prn. Potassium Chloride Oral : Packet 20 meq, 2x a day. Promethazine HCl Oral : Tablet 25 mg, prn. Sudafed Oral : 60 mg 2x a day. ZyPREXA Oral : Tablet 10 mg, at bedtime. Follow-up: Follow up with your healthcare provider Friday if not better. Reason for referral: evaluation. Summary of care provided to patient via paper. Follow up with an ear, nose and throat physician (an material damage adjuster) and a wicker molded candles in three days. Reason for referral: evaluation. Summary of care provided to patient via paper.(Electronically signed by Karen Lilly 12/01/2020 19:10) Name Value Range Interpretation Code Description Data Melanie rce(s) Supporting Document(s) ID Date Data Source [id number] 11/04/2020 09:59:00 PM EDT [facility] ([facility]) Name Value Range Interpretation Code Description Data Melanie rce(s) Supporting Document(s) Appearance, Urine RFX Laboratory test result [facility] ([facility]) PH,Urine RFX 7.0 units 5.0-9.0 [facility] ([facility]) Color, Urine RFX Laboratory test result [facility] ([facility]) Glucose, Urine (Ua) Auto RFX Laboratory test result [facility] ([facility]) Specific [place] Ur Auto RFX 1.013 1.002-1.035 [facility] ([facility]) Protein, Urine Auto RFX Laboratory test result [facility] ([facility]) Ketone, Urine Auto RFX Laboratory test result [facility] ([facility]) Urobilinogen, Urine Auto RFX 0.2 mg/dL 0.0-2.0 [facility] ([facility]) Bilirubin, Urine Auto RFX Laboratory test result [facility] ([facility]) Nitrite, Urine Auto RFX Laboratory test result [facility] ([facility]) Blood, Urine Blood RFX Laboratory test result [facility] ([facility]) Leukocyte Esterase Ur Auto RFX Laboratory test result [facility] ([facility]) RBC, Urine Auto RFX 2 /HPF 0-3 [facility] ([facility]) WBC, Urine Auto RFX 12 /HPF 0-3 [facility] ([facility]) Squam Epithelial Cell Ur Aurfx 1 /HPF 0-6 [facility] ([facility]) Mucus, Urine RFX Laboratory test result [facility] ([facility]) Bacteria, Urine Auto RFX Laboratory test result [facility] ([facility]) Hyaline Cast, Urine Auto RFX 1 /LPF 0-1 M [facility] ([facility]) ID Date Data Source [id number] 11/04/2020 09:59:00 PM EDT [facility] ([facility]) Name Value Range Interpretation Code Description Data Melanie rce(s) Supporting Document(s) Reflex Urine Culture Laboratory test result [facility] ([facility]) <content>FULL REPORT IN LAB NOTES (eCW a [...] 1 S</content>
<content></content> ID Date Data Source [id number] 10/29/2020 11:06:00 AM EDT [facility] ([facility]) Name Value Range Interpretation Code Description Data Melanie rce(s) Supporting Document(s) Reflex Urine Culture Laboratory test result [facility] ([facility]) <content>FULL REPORT IN LAB NOTES (eCW [...] 1 S</content>
<content>LINEZOLID (ZYVOX) IV 600MG Q12HR 2 S</content>
<content> LINEZOLID (ZYVOX) PO 600MG Q12HR 2 S</content>
<content></content> ID Date Data Source [id number] 10/29/2020 11:06:00 AM EDT [facility]) Name Value Range Interpretation Code Description Data Melanie rce(s) Supporting Document(s) Appearance, Urine RFX Laboratory test result [facility] ([facility]) PH,Urine RFX 7.0 units 5.0-9.0 [facility] ([facility]) Color, Urine RFX Laboratory test result [facility] ([facility]) Specific [place] Ur Auto RFX 1.012 1.002-1.035 [facility] ([facility]) Protein, Urine Auto RFX Laboratory test result [facility] ([facility]) Glucose, Urine (Ua) Auto RFX Laboratory test result [facility] ([facility]) Urobilinogen, Urine Auto RFX 0.2 mg/dL 0.0-2.0 [facility] ([facility]) Ketone, Urine Auto RFX Laboratory test result [facility] ([facility]) Bilirubin, Urine Auto RFX Laboratory test result [facility] ([facility]) Nitrite, Urine Auto RFX Laboratory test result [facility] ([facility]) Leukocyte Esterase Ur Auto RFX Laboratory test result [facility] ([facility]) WBC, Urine Auto RFX 29 /HPF 0-3 [facility] ([facility]) Blood, Urine Blood RFX Laboratory test result [facility] ([facility]) RBC, Urine Auto RFX 12 /HPF 0-3 [facility] ([facility]) Squam Epithelial Cell Ur Aurfx 1 /HPF 0-6 [facility] ([facility]) Bacteria, Urine Auto RFX Laboratory test result [facility] ([facility]) Hyaline Cast, Urine Auto RFX 1 /LPF 0-1 M [facility] ([facility]) Mucus, Urine RFX Laboratory test result [facility] ([facility]) Amorphous Sediment RFX Laboratory test result [facility] ([facility]) ID Date Data Source [id number] 10/29/2020 10:47:00 AM EDT [facility] Name Value Range Interpretation Code Description Data Melanie rce(s) Supporting Document(s) SARS COVID ANTIGEN NEGATIVE [facility] This lab was ordered by PEYTON vargas nd reported by [facility]. ID Date Data Source [id number] 10/29/2020 10:47:00 AM EDT [facility] ([facility]) Name Value Range Interpretation Code Description Data Melanie rce(s) Supporting Document(s) Laboratory test finding (navigational concept) Laboratory test result [facility] ([facility]) The Tory SARS Antigen ALISTAIR does not diff erentiate between SARS-CoV and SARS-CoV-2. Negative results do not rule out COVID-19 and should not be used as the sole basis for treatment. Negative results should be considered in the context of a patient's recent exposure, history and the presence of clinical signs and symptoms consistent with COVID-19. ID Date Data Source [id number] 10/19/2020 08:54:00 AM EDT [facility] [address] [place] [address] PHONE: [phone] FAX: [phone] Name .................. : CANDIDO MARIO Acct Number.................. : [id number] ROOM. ................. : TR-04 MR Number ................... : [id number] Stay type ............. : E/R Discharge Date......... ... : 10/14/20 Admit Date ......... : 10/13/20 Admit Phys .................... : [facility] Date of ....... : 1955 Family Phys ................... : JENNY Zoobean Phone . ................. : [phone] Age ................................ : 65 Film# .................. .:[id number] Sex ................................. : F Unsigned transcriptions are preliminary reports and do not represent a medical or legal document CHEST PORTABLE [id number] COMPLETE:10/14/20 00:54 [facility] 7229 Reason(s): cough hemoptysis PORTABLE CHEST X-RAY: CLINICAL HISTORY: 65-year-old woman with a cough and hemoptysis. COMPARISON: A prior study is not available for comparison. FINDINGS: A portable AP semi-upright chest study is obtained. The heart, mediastinum and vascularity are within normal limits. Atherosclerosis is seen. The lungs are not well-ventilated. I cannot exclude small areas of atelectasis or infiltrates within the lung bases. No effusion is seen. IMPRESSION: Question of small areas of atelectasis or less likely infiltrates within the lung bases. A follow up PA and lateral view of the chest would be helpful for evaluation of change. Electronically Reviewed and Signed By Blane Pfeiffer MD , 10/19/20 08:55, [facility] Transcribe Initials: DZ , Transcribe Date: 10/14/20 13:06, Dictation Date: Copy for: 710 MED REC DISCHARGED Page 1 of 1 Name Value Range Interpretation Code Description Data Melanie rce(s) Supporting Document(s) ID Date Data Source [id number] 10/16/2020 09:15:00 [place] [address] RESPIRATORY CARE REPORT ==== ---------NAME------- NUMBER SEX AGE ADMIT DISC. XRAY# F/C KELSEY MARIO [id number] F 65 10/13/20 10/14/20 [id number] MB4 E/R DATE OF : 1955 M/R# [id number] #: [id number] TR-04 LOCATION: EKG 45810 COMPLETE:10/14/20 0 0:29 T 64729 PHYSICIAN: VIJAYA Name Value Range Interpretation Code Description Data Melanie rce(s) Supporting Document(s) ID Date Data Source [id number] 10/13/2020 11:01:00 PM EDT [facility] 1 OrderSheet [facility] Emergency Department [address] [place] [address] Phone #: ext- [phone] 10/13/2020 23:01 Patient: FABIANO RAMIREZ Sex: F : 1955 Age: 65yWEIGHT:91.6 kg (M) HEIGHT:62 inches (S) BMI:37.0ALLERGIES: Darvacet, Demerol, MicrodentinDIAGNOSIS: Urinary tract infectious disease, CoughLAB ORDERSOrder Description Priority Entered Acknowledged InitialedBlood Culture STAT 23:47 10/13/2020 00:03 10/14/2020q10m X2 (Sched Karen Lilly Gregory23:47 10/13/2020) ;Blood Culture STAT 23:47 10/13/2020 00:03 10/14/2020q10m X2 (Karen Olvera Gregory23:57 10/13/2020) ;CBC w Diff STAT 23:47 10/13/2020 23:59 Vijaya Carney Victoria Gregory ;CMP STAT 23:47 10/13/2020 23:59 Vijaya Carney Victoria Gregory ;Culture, Urine STAT 23:47 10/13/2020 00:19 10/14/2020(Urine, Clean Karen Lilly VirginiaCatch) ;Lactic Acid STAT 23:47 10/13/2020 23:59 Vijaya Carney Victoria Gregory ;PT/INR STAT 23:47 10/13/2020 00:00 10/14/2020 Karen Lilly Gregory ;PT/PTT STAT 23:47 10/13/2020 Initialed: 00:00 10/14/2020 Noam Carney Victoria Cancelled: Duplicate Order 00:05 ; 10/14/2020 Urmila Lilly-T STAT 23:47 10/13/2020 00:00 10/14/2020 Karen Lilly Gregory ;Urinalysis (Clean STAT 23:47 10/13/2020 00:18 10/14/2020atch) Karen Lilly Virginia ;Venous Blood Gas STAT 23:47 10/13/2020 Initialed: 23:50 Karen Lilly Victoria Cancelled: Wrong Order 23:50 ; Karen Lilly 2 OrderSheet [facility] Emergency Department [address] [place] [address] Phone #: ext- [phone] 10/13/2020 23:01 Patient: FABIANO RAMIREZ Sex: F : 1955 Age: 65yCRP STAT 23:47 10/13/2020 00:00 10/14/2020 Karen Lilly Gregory ;ABG STAT 23:47 10/13/2020 Cancelled: Wrong Order 00:01 Karen Lilly 10/14/2020 Karen Lilly ;Magnesium STAT 23:47 10/13/2020 00:00 10/14/2020 Karen Lilly Gregory ;D-Dimer STAT 23:47 10/13/2020 00:00 10/14/2020 Karen Lilly Gregory ;Venous Blood Gas STAT 00:01 10/14/2020 00:02 Vijaya Carney Victoria Gregory ;BNP STAT 01:50 10/14/2020 01:53 Vijaya Lerner Victoria Laura R.N. ;DIAGNOSTIC STUDY ORDERSOrder Description Priority Entered Acknowledged InitialedChest Portable 1 STAT 23:47 10/13/2020 00:44 10/14/2020View (Oxygen? Karen Lilly Gregory(Yes)) ; Reason for Study: ciugh hemoptysisCT CTA CHEST STAT 01:50 10/14/2020 Ack'd: 01:53 02:35 Yann,(NONCOR) W Karen Jewell Laura Laura R.N.INC PP ; R.N.(Oxygen?(No))(IV?(Yes)) Reason for Study: hemoptysisMEDICATION/IV/DRIP/FLUID ORDERSOrder Description Priority Entered Acknowledged InitialedRocephin 01:49 10/14/2020 01:56 Angelika,(1gm/50mL) IVPB Karen Lilly1000 mg with ;Dextrose 50 mlspike bag (D5W)GENERAL ORDERSOrder Description Priority Entered Acknowledged InitialedAccucheck 23:47 10/13/2020 23:59 Angelika, 3 OrderSheet [facility] Emergency Department [address] [place] [address] Phone #: ext- [phone] 10/13/2020 23:01 Patient: FABIANO RAMIREZ Sex: F : 1955 Age: 65y Karen Lilly ;Blood Pressure 23:47 10/13/2020 23:59 Angelika,Monitor Karen Lilly ;EKG 23:47 10/13/2020 00:03 10/14/2020 Karen Lilly Gregory ;NPO 23:47 10/13/2020 23:59 Vijaya Carney Victoria Gregory ;Oxygen titrate to 23:47 10/13/2020 23:59 Angelika,92% Karen Lilly ;Pulse oximeter 23:47 10/13/2020 23:59 Angelika,(Continuous) Karen Lilly ;Saline Lock 23:47 10/13/2020 23:59 Vijaya Carney Victoria Gregory ;Vitals 23:47 10/13/2020 23:59 Vijaya Carney Victoria Gregory ;[Electronically signed by Noam Carney (04:25 10/14/2020)][Electronically signed by Karen Lilly (07:57 10/15/2020)][Electronically locked by Noam Carney (04:10/14/2020)] Name Value Range Interpretation Code Description Data Melanie rce(s) Supporting Document(s) ID Date Data Source [id number] 10/13/2020 11:01:00 PM EDT [facility] 1 Medication Reconciliation Report [facility] Emergency Department [address] [place] [address] Phone #: ext- [phone] 10/13/2020 23:01 Patient: FABIANO RAMIREZ Sex: F : 1955 Age: 65yWeight: 91.6 kgHeight/Length: 62 in.BMI: 37.0ALLERGIES: Darvacet, Demerol, MicrodentinThe patient's Home Medications are listed below:STOP TAKING THE FOLLOWING MEDICATIONS: Potassium Chloride Oral (20 meq), 2x a dayCONTINUE TAKING THE FOLLOWING MEDICATIONS: Albuterol Sulfate Inhalation 2 unit doses Eliquis Oral HYDROcodone-Acetaminophen Oral (7.5-325 mg/15mL), prn KlonoPIN Oral 0.25 mg, at bedtime LaMICtal Oral (25 mg), 2x a day Meclizine HCl Oral 50 mg, 2x a day MiraLax Oral 1 packet Motrin IB Oral 400, prn Promethazine HCl Oral (25 mg), prn Sudafed Oral 60 mg, 2x a day ZyPREXA Oral (10 mg), at bedtimeThe source(s) of the original Home Medication information:patient 2 Medication Reconciliation Report [facility] Emergency Department [address] [place] [address] Phone #: ext- [phone] 10/13/2020 23:01 Patient: FABIANO RAMIREZ Sex: F : 1955 Age: 65yThe following Medications were given to the patient in the Emergency Department:ROCEPHIN (1GM/50ML) [IVPB] IVPB bolus 0, then 1 gm 100 mL/hr, administered: 01:56 10/14/2020The following Medications were prescribed to the patient:Bactrim DS 800 mg-160 mg tablet Take 1 tablet twice a day for 7 days -- Dispense 14 tablet. Refills: 0.Substitution permitted.Pharmacy - [id number] - [address] ; [place] [address]. . -- Karen Lilly Name Value Range Interpretation Code Description Data Melanie rce(s) Supporting Document(s) ID Date Data Source [id number] 10/13/2020 11:01:00 PM EDT [facility] 1 Medication Administration Record [facility] Emergency Department [address] [place] [address] Phone #: ext- [phone] 10/13/2020 23:01 Patient: FABIANO RAMIREZ Sex: F : 1955 Age: 65yWeight: 91.6 kgHeight/Length: 62 inBMI: 37ALLERGIES: Darvacet, Demerol, Microdentin Date/Time Medication Administered Medication OrderedStart ROCEPHIN (1GM/50ML) [IVPB] Rocephin (1gm/50mL) IVPB 502037:56 10/14/2020 (CEFTRIAXONE SODIUM) mg with Dextrose 50 ml spike bagBisha, Noam, Dose: 1 gm IVPB (D5W)---- Rate: 100 mL/hr over 30 minute(s)Stop Dispensed: 50 mL bag02:58 10/14/2020 Site: #1 left Noam Estrada, Name Value Range Interpretation Code Description Data Melanie rce(s) Supporting Document(s) ID Date Data Source [id number] 10/13/2020 11:01:00 PM EDT [facility] 1 General Instructions [facility] Emergency Department [address] [place] [address] Phone #: ext- [phone] 10/13/2020 23:01 Patient: FABIANO RAMIREZ Sex: F : 1955 Age: 65yAcute coughAcute urinary tract infection with cystitis and hematuria.INSTRUCTIONS(the blood work were unremarkable CXR as well as CT scan of the chest did not show any pathology.you have a UTI. take the bactrim as prescribed. do not take potassium tablets while on bactrim .increase oral fluids.).Your Current Medications: Your current home medications have been reviewed.STOP TAKING THE FOLLOWING MEDICATIONS:Potassium Chloride Oral : Packet 20 meq, 2x a day.CONTINUE TAKING THE FOLLOWING MEDICATIONS:Albuterol Sulfate Inhalation : 2 unit doses.Eliquis Oral.HYDROcodone-Acetaminophen Oral : Solution 7.5-325 mg/15mL, prn.KlonoPIN Oral : 0.25 mg, at bedtime.LaMICtal Oral : Tablet 25 mg, 2x a day.Meclizine HCl Oral : 50 mg 2x a day.MiraLax Oral : 1 packet.Motrin IB Oral : 400, prn.Promethazine HCl Oral : Tablet 25 mg, prn.Sudafed Oral : 60 mg 2x a day.ZyPREXA Oral : Tablet 10 mg, at bedtime.Prescription Medications:Bactrim DS 800 mg-160 mg tablet Take 1 tablet twice a day for 7 days -- Dispense 14 tablet. Refills: 0.Substitution permitted.Pharmacy - [id number] - [address] [facility] ; [place] [address]. .Follow-up:Follow up with your healthcare provider Friday if not better. Reason for referral: evaluation. Summary ofcare provided to patient via paper. ADDITIONAL INFORMATION 2 General Instructions [facility] Emergency Department [address] [place] [address] Phone #: ext- [phone] 10/13/2020 23:01 Patient: FABIANO RAMIREZ Sex: F : 1955 Age: 65yViral Upper Respiratory Illness (Adult)You have a viral upper respiratory illness (URI), which is another term for the common cold. Thisillness is contagious during the first few days. It is spread through the air by coughing and sneezing. Itmay also be spread by direct contact (touching the sick person and then touching your own eyes,nose, or mouth). Frequent handwashing will decrease risk of spread. Most viral illnesses go awaywithin 7 to 10 days with rest and simple home remedies. Sometimes the illness may last for severalweeks. Antibiotics will not kill a virus, and they are generally not prescribed for this condition. 3 General Instructions [facility] Emergency Department [address] [place] [address] Phone #: ext- [phone] 10/13/2020 23:01 Patient: FABIANO RAMIREZ Sex: F : 1955 Age: 65yHome care If symptoms are severe, rest at home for the first 2 to 3 days. When you resume activity, don't let yourself get too tired. Don't smoke. If you need help stopping, talk with your healthcare provider. Avoid being exposed to cigarette smoke (yours or others'). You may use acetaminophen or ibuprofen to control pain and fever, unless another medicine was prescribed. If you have chronic liver or kidney disease, have ever had a stomach ulcer or gastrointestinal bleeding, or are taking blood-thinning medicines, talk with your healthcare provider before using these medicines. Aspirin should never be given to anyone under 18 years of age who is ill with a viral infection or fever. It may cause severe liver or brain damage. Your appetite may be poor, so a light diet i s fine. Stay well hydrated by drinking 6 to 8 glasses of fluids per day (water, soft drinks, juices, tea, or soup). Extra fluids will help loosen secretions in the nose and lungs. Dsjm-kvl-jojbvom cold medicines will not shorten the length of time you're sick, but they may be helpful for the following symptoms: cough, sore throat, and nasal and sinus congestion. If you take prescription medicines, ask your healthcare provider or pharmacist which ylsl-hwg-yxfcrsa medicines are safe to use. (Note: Don't use decongestants if you have high blood pressure.)Follow-up careFollow up with your healthcare provider, or as advised.When to seek medical adviceCall your healthcare provider right away if any of these occur: Cough with lots of colored sputum (mucus) Severe headache; face, neck, or ear pain Difficulty swallowing due to throat pain Fever of 100.4F (38C) or higher, or as directed by your healthcare provider Call 911 Call 911 if any of these occur: Chest pain, shortness of breath, wheezing, or difficulty breathing 4 General Instructions [facility] Emergency Department [address] [place] [address] Phone #: ext- [phone] 10/13/2020 23:01 Patient: FABIANO RAMIREZ Sex: F : 1955 Age: 65y Coughing up blood Very severe pain with swallowing, especially if it goes along with a muffled voice hyaqu. [address] [place] [address]. All rights reserved. This information is not intended as asubstitute for professional medical care. Always follow your healthcare professional's instructions.Bladder Infection, Female (Adult)Urine normally doesn't have any germs (bacteria) in it. But bacteria can get into the urinary tract fromthe skin around the rectum. Or they can travel in the blood from other parts of the body. Once theyare in your urinary tract, they can cause infection in these areas: The urethra (u rethritis) The bladder (cystitis) The kidneys (pyelonephritis)The most [...] The most common cause of cystitis isan infection. 5 General Instructions [facility] Emergency Department [address] [place] [address] Phone #: ext- [phone] 10/13/2020 23:01 Patient: FABIANO RAMIREZ Sex: F : 1955 Age: 65ySymptomsThe infection causes inflammation in the urethra and bladder. This causes many of the symptoms.The most common symptoms of a bladder infection are: Pain or burning when urinating Having to urinate more often than normal [...] having a catheter put in Older age 7 General Instructions [facility] Emergency Department [address] [place] [address] Phone #: ext- [phone] 10/13/2020 23:01 Patient: FABIANO RAMIREZ Sex: F : 1955 Age: 65y Not emptying your bladder. This can give bacteria a chance to grow in your urine. Fluid loss (dehydration) Constipation Having sex Using a diaphragm for controlTreatmentBladder infections are [...] more fresh fruits and vegetables, and fiber. 7 General Instructions [facility] Emergency Department [address] [place] [address] Phone #: ext- [phone] 10/13/2020 23:01 Patient: FABIANO RAMIREZ Sex: F : 1955 Age: 65y Eat less junk foods and fatty foods. Don't have sex until your symptoms are gone. Don't have caffeine, alcohol, and spicy foods. These can irritate your bladder. Urinate right after you have sex to flush out your bladder. If you [...] if the results will affect your treatment.Call [phone] if any of the following occur: Trouble [...] swelling in the outer vaginal area (labia) 8 General Instructions [facility] Emergency Department [address] [place] [address] Phone #: ext- [phone] 10/13/2020 23:01 Patient: FABIANO RAMIREZ Sex: F : 1955 Age: 65y [phone] [place] [address]. All rights reserved. This information is not intended as asubstitute for professional medical care. Always follow your healthcare professional's instructions. You have been given the following additional information: URI, Viral, No Abx (Adult) Bladder Infection, Female (Adult)(Electronically signed by Karen Lilly 10/15/2020 07:57) Name Value Range Interpretation Code Description Data Melanie rce(s) Supporting Document(s) ID Date Data Source [id number] 10/13/2020 11:01:00 PM EDT [facility] 1 Clinical Report - Nurses [facility] Emergency Department [address] [place] [address] Phone #: ext- [phone] 10/13/2020 23:01 Patient: FABIANO RAMIREZ Sex: F : 1955 Age: 65yTRIAGEArrived by EMS. Historian: patient.Triage time: 23:21 10/13/2020. Acuity: LEVEL 3.Chief Complaint: (She c/o a right ankle pain off and on x serveral months, she also states she hashematuria for about a week and her head is all "full" as if she has a cold or somthing. She is coughing atnight and sweating. and she has a sore throat).Alert. No acute distress.Onset. (See the triage note).Treatment DECKHAND:(she was seen here a few months ago for the ankle pain and given an air cast).THA COMA SCORE: 15- eyes open- spontaneous (4); best verbal response- oriented (5); bestmotor response- obeys commands (6). --23:35 10/13/20 Claudia Miguel RN23:20 10/13/20. BP: 143/85 taken on the right arm, while sitting. MAP: 104. HR: 85 (regular, normal rateand strong). RR: 22 (regular, unlabored and normal). O2 saturation: 91% on room air. Temp: 98.3 F(temporal). Pain level now: 01/27. --23:35 10/13/20 Claudia Miguel RN.Weight: 91.6 kg measured. Height/Length: 62 inches Per Patient. BMI: 37. --23:33 10/13/20 Claudia Miguel RN.MedicationsAlbuterol Sulfate Inhalation 2 unit doses. Eliquis Oral. [...] ZyPREXA Oral (Tablet 10 mg), at bedtime. --23:27 10/13/20 Claudia Miguel RN.AllergiesDarvacet. 2 Clinical Report - Nurses [facility] Emergency Department [address] [place] [address] Phone #: ext- [phone] 10/13/2020 23:01 Patient: FABIANO RAMIREZ Sex: F : 1955 Age: 65y Demerol. Microdentin. --23:27 10/13/20 Claudia Miguel RN. Medication/allergy information source: the patient. --23:35 10/13/20 Claudia Miguel RN. History PAST MEDICAL HX: Hypertension. Immunizations: status is unknown. SURGERY HX: Hip prosthesis. SOCIAL HX: No alcohol use or drug use. She [...] hurt yourself before today?". ABUSE ASSESSMENT: Abuse history: reports abuse. (denies). Abuse assessment. denies. --23:35 10/13/20 Claudia Miguel RN SOCIAL HX: Never smoker. --04:25 10/14/20 Noam Carney FALL RISK ASSESSMENT: Fall risk assessment completed. Risk factors identified include patient impairment of mobility. Fall interventions initiated. Patient placed on stretcher. Side rails up x2. Bed in low position. Brakes on. --04:25 10/14/20 Noam Carney.NURSING PROGRESS NOTESPatient gowned. Head of bed elevated. Reassurance given. Two patient identifiers checked. Call lightplaced in reach. Side rails up x 2. Bed placed in lowest position. Brakes of bed on. --23:38 10/13/20Roxanne Lerner R.N. 23:56 10/13/2020 Site #1 started via IV in the left antecubital space with an 20g angiocath, with aseptic technique and good blood return; one attempt. Blood drawn: rainbow set. Saline lock flushed with 10 mL saline. --23:56 10/13/20 Noam Carney Finger stick glucose: 101; performed by nurse; result shown to the ED physician. --23:57 10/13/20 Noam Carney 01:56 10/14/2020 Started 1 gm of ROCEPHIN (1GM/50ML) (cefTRIAXone Sodium) IVPB in bag #1 50 mL; at 100 mL/hr over 30 minute(s) via site #1. via IV pump. Allergies verified and confirmed 5 rights. IV patency established. IV site checked: no pain, redness, or swelling. IV flushed thoroughly pre- and 3 Clinical Report - Nurses [facility] Emergency Department [address] [place] [address] Phone #: ext- [phone] 10/13/2020 23:01 Patient: FABIANO RAMIREZ Sex: F : 1955 Age: 65y post-medication administration. Information reviewed with patient including reason for taking this medication, signs of allergic reaction and precautions. Verbalizes understanding. 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 --02:36 10/14/20 Roxanne Lerner R.N. 02:37 10/14/20. BP: 127/77. MAP: 93. HR: 82. RR: 18. O2 saturation: 94% on room air. --02:39 10/14/20 Roxanne Lerner R.N. The patient is calm and resting quietly. --02:39 10/14/20 Roxanne Lerner R.N. 02:58 10/14/2020 ROCEPHIN (1GM/50ML) IVPB via IV site #1 Discontinued: bag #1 infused. Total amount infused: 50 mL. IV patency established. IV site checked: no pain, redness, or swelling. IV flushed thoroughly. --02:58 10/14/20 Noam Carney.DISPOSITION / DISCHARGE 04:12 10/14/20. BP: 156/83 taken on the right arm, via an automated monitor, while standing. MAP: 107. HR: 95 (regular, normal rate and strong). RR: 16 (regular, unlabored and normal). O2 saturation: 97% on room air. Temp: 97.9 F (oral). Pain level now: 08/30. --04:12 10/14/20 Noam Carney Condition at departure: stable. No learning barriers present. Discharge instructions provided and reviewed with the patient. Reviewed warnings (return for worsening symptoms). Reviewed medication(s) side effects, precautions, dosing and course information (bactrim). Reviewed referral to a primary care physician. Patient verbalized understanding. Written instructions provided in Gabonese. No treatment instructions. The patient was discharged by the physician. She was discharged home. She left ambulatory and via taxi. 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 --04:24 10/14/20 Noam Carney.Locked/Released at 10/14/2020 04:25 by Noam Carney Name Value Range Interpretation Code Description Data Melanie rce(s) Supporting Document(s) ID Date Data Source [id number] 10/13/2020 11:01:00 PM EDT [facility] 1 Clinical Report - Physicians/Mid Levels [facility] Emergency Department [address] [place] [address] Phone #: ext- [phone] 10/13/2020 23:01 Patient: FABIANO RAMIREZ Sex: F : 1955 Age: 65y Time Seen: 23:22 10/13/2020; initial patient contact, initial documentation. Arrived- By ambulance. Historian- patient. Disposition decision: 04:07 10/14/2020.HISTORY OF PRESENT ILLNESS Chief Complaint: multiple complaints including sweating today with cough as well as hemotysis. she also complains of hematuria and pain on her right ankle x 2 months. This started cough and sweats started today. right ankle pain 2 months and hematuria started yesterday and is still present. At its maximum, severity described as moderate. When seen in the E.D., severity described as moderate. Modifying factors- worsened by cough. Not relieved by anything. No loss of appetite, weight loss, headache, visual disturbance or fatigue. No muscle aches or weakness. Denies sleep problem. No decreased urine output. (Patient states that she has asthma. denies smoking ravi es recent travels or ill contacts. she is not on oxygen at home).REVIEW OF SYSTEMSNo fever, sore throat, sinus drainage, nasal congestion or chest pain. No abdominal pain, nausea,vomiting, diarrhea or chills. No difficulty with urination or abnormal bleeding. She has had difficultybreathing, a cough and headache, skin rash and back pain. She has had calf pain, blackouts and doublevision. She has had difficulty with ambulation. All other systems reviewed and are negative.PAST HISTORYSee nurses notes. Problems: Contusion. Diabetes Mellitus Type 2. Fall. Arthritis. Cervical Strain. Spinal Tumor. Sprain. UTI - Urinary Tract Infection. Incontinence. Lower Extremity Pain. Additional Surgeries: Appendectomy. Hernia Repair. Spinal surgery. 2 Clinical Report - Physicians/Mid Levels [facility] Emergency Department [address] [place] [address] Phone #: ext- [phone] 10/13/2020 23:01 Patient: FABIANO RAMIREZ Sex: F : 1955 Age: 65y Medications: Albuterol Sulfate Inhalation 2 unit doses. [...] drug use.ADDITIONAL NOTESThe nursing notes have been reviewed.PHYSICAL EXAMVital Signs: Have been reviewed. Oxygen saturation: 91 % room air- oxygen saturation low.Appearance: Alert. No acute distress. Anxious.Eyes: Pupils equal, round and reactive to light. Eyes normal inspection.ENT: Pharynx normal.Neck: Normal inspection. Neck supple.CVS: Normal heart rate and rhythm. Heart sounds normal. Pulses normal.Respiratory: No respiratory distress. Decreased air movement. Painless inspiration. Chest nontender.Abdomen: No visible injury. Soft and nontender. Bowel sounds normal. No mass.Back: (she has kyphoscoliosis).Skin: Skin warm and dry. Normal skin color. No rash. Normal skin turgor.Extremities: Extremities exhibit normal ROM. No lower extremity edema. (mild tenderness on the rightankle. no deformity no swelling. toe nail fungil infection which is chronic as per patient).Neuro: Oriented X 3. No motor deficit. No sensory deficit.LABS, X-RAYS, AND EKGEKG: EKG time: 00:17 10/14/2020. No acute process. No acute ischemia. Normal EKG. Normalsinus rhythm. Rate: 86. LVH. Normal ST and T waves. Prior EKG unavailable. The study has beeninterpreted contemporaneously by me. The study has been independently viewed by me. The EKGappears to be a good tracing. I agree with and confirm the computer reading of the EKG. Interpretation 3 Clinical Report - Physicians/Mid Levels [facility] Emergency Department [address] [place] [address] Phone #: ext- [phone] 10/13/2020 23:01 Patient: FABIANO RAMIREZ Sex: F : 1955 Age: 65ytime: 00:25 10/14/2020.Chest X-ray: No acute disease. Cardiomegaly. Mediastinum normal. Great vessels normal. Noinfiltrate. Views: AP (portable). Technique: poor inspiration. The X-rays were independently viewed byme.Laboratory Tests:BNP: (OLE: 10/14/2020 00:01) ( MsgRcvd 10/14/2020 02:08) Final results Test Result Flag Units (Reference) BNP 20 PG/ML (0 - 125)CT CTA CHEST NON-CORONARY W CON INC PP: (OLE: 10/14/2020 01:50) ( MsgRcvd 10/14/2020 03:51)Final results Test Result Flag Units (Reference) CT CTA CHEST NON-CORONARY W CON INC PP [address] [place] [address] ---------NAME--------- NUMBER SEX AGE ADMIT DISC. XRAY# F/C TYPE CANDIDO MARIO [id number] F 65 10/13/20 [id number] E/R DATE OF : 1955 M/R# [id number] #: [id number] TR-04 LOCATION: TRANSCRIBED: 10/14/20 3:[address] CTA CHEST NON-CORONARY W [id number] COMPLETED:10/14/20 2:52 SR 7231 Reason(s): hemoptysis -- PHYSICIAN: VIJAYA -- -- R A D I O L O G Y R E P O R T -- PATIENT HISTORY: hemopstysis. isovue 370 75 ml [id number] exp 09/12. estimated dose 394.5. actual dose 395.6 mGy*cm. Time Out performed. Correct patient with 2 identifiers, type and amount of contrast used, correct body part and side all verified prior to examination. / COR SLAB MIP (DICOM Hx) EXAM: CTA Chest with Intravenous Contrast for PE evaluation -- CLINICAL HISTORY:hemopstysis. isovue 370 75 ml [id number] exp 09/12. estimated dose 394.5. actual dose 395.6 mGy*cm. Time Out performed. Correct patient with 2 identifiers, type and amount of contrast used, correct body part and side all verified prior to examination. -- TECHNIQUE: Axial CTA images of the chest with intravenous contrast using a pulmonary embolism protocol. Multiplanar reconstructed images were created and reviewed. All CT scans at this facility use dose modulation, iterative reconstruction, and/or weight- based dosing when appropriate to reduce radiation dose to as low as reasonably achievable. -- CONTRAST:With; Iodine 0 was administered without incident. -- COMPARISON:None provided. -- -- FINDINGS: -- PULMONARY ARTERIES: No evidence of central or segmental pulmonary embolism is -- seen. -- AORTA: There is no evidence for aneurysm or dissection of the thoracic aorta. 4 Clinical Report - Physicians/[facility] Emergency Department [address] [place] [address] Phone #: ext- [phone] 10/13/2020 23:01 Patient: FABIANO RAMIREZ Sex: F : 1955 Age: 65y -- LUNGS:Some minimal atelectasis or scarring is seen at the lung bases. The lungs are otherwise clear. The tracheobronchial tree is unremarkable. -- PLEURAL SPACES: No evidence of pneumothorax. No pleural effusion. -- HEART:There is moderate cardiomegaly. No pericardial ef fusion is seen. -- LYMPH NODES: No lymphadenopathy is evident. -- BONES:Moderate spinal scoliosis is noted. -- UPPER ABDOMEN: Images of the upper abdomen are unremarkable. -- -- IMPRESSION: -- No definite pulmonary embolus. -- No acute cardiopulmonary abnormality. -- While performing the above CT examination, radiation dose reduction was accomplished utilizing automated exposure control, adjusting of the mA and kV based on the patient's body size and/or the use of imperative reconstructive -- techniques. -- -- -- Electronically Signed By: Del Alicea MD , Radiologist Date/Time: 10/14/20 03:51Venous Blood Gas: (OLE: 10/14/2020 00:01) ( MsgRcvd 10/14/2020 00:22) Final results Test Result Flag Units (Reference) pH V 7.37 (7.32 - 7.43) pCO2 V 56.1 H mm/HG (38.0 - 51.0) pO2 V 39.7 mm/HG (30.0 - 55.0) HCO3 V 31.5 H meq/L (22.0 - 29.0) TCO2 V 33.2 H meq/L (22.0 - 29.0) BASE EXCESS 4.9 H (-2.0 - 2.0) O2 SAT V 73.4 % (40.0 - 85.0)CBC w Diff: (OLE: 10/14/2020 00:01) ( MsgRcvd 10/14/2020 00:10) Final results Test Result Flag Units (Reference) CBC W/AUTOMATED DIFF COMPLETE BLOOD COUNT WBC 5.8 10/uL (4.2 - 11.0) RBC 3.92 L 10/uL (4.20 - 5.40) HEMOGLOBIN 11.9 L g/dL (12.0 - 16.0) HEMATOCRIT 36.6 L % (37.0 - 47.0) MCV 93.4 fL (81.0 - 101) MCH 30.4 pg (27.0 - 34.0) MCHC 32.5 g/dL (31.0 - 36.0) RDW 15.5 H % (11.5 - 14.5) PLATELETS 204 10/uL (150 - 450) MPV 8.4 fL (7.4 - 10.4) NEUT 43.7 % (37.0 - 80.0) LYMPH 45.6 H % (25.0 - 40.0) MONO 6.2 % (3.0 - 8.0) EOS 4.0 % (0.0 - 7.0) 5 Clinical Report - Physicians/Mid Levels [facility] Emergency Department [address] [place] [address] Phone #: ext- [phone] 10/13/2020 23:01 Patient: FABIANO RAMIREZ Sex: F : 1955 Age: 65y BASO 0.3 % (0.0 - 2.5) %IG 0.2 H % (0.0 - 0.0) %NRBC 0.0 % (0.0 - 0.0) #NEUT 2.54 10/uL (2.00 - 6.90) #LYMPH 2.65 10/uL (0.60 - 3.40) #MONO 0.36 10/uL (0.00 - 0.90) #EOS 0.23 10/uL (0.00 - 0.70) #BASO 0.02 10/uL (0.00 - 0.20) #IG 0.01 10/uL (0.00 - 0.10) #NRBC 0.00 10/uL (0.00 - 0.00) MANUAL DIFF NOT INDICATED RBC MORPH NOT INDICATEDCMP: (OLE: 10/14/2020 00:01) ( MsgRcvd 10/14/2020 00:39) Final results Test Result Flag Units (Reference) COMPREHENSIVE METABOLIC PANEL COMPREHENSIVE METABOLIC PANEL SODIUM 140 mEq/L (134 - 153) POTASSIUM 3.9 mEq/L (3.6 - 5.0) CHLORIDE 102 mEq/L (98 - 107) CO2 31 H MEQ/L (22 - 30) GLUCOSE 94 MG/DL (70 - 99) BUN 12 MG/DL (7 - 21) CREATININE 0.8 MG/DL (0.7 - 1.5) BUN/CREAT 15 (8 - 27) TOTAL PROTEIN 7.0 G/DL (6.3 - 8.2) ALBUMIN 4.2 G/DL (3.9 - 5.0) GLOBULIN 2.8 GM/DL (2.4 - 3.2) A/G RATIO 1.5 (0.8 - 2.0) CALCIUM 10.1 MG/DL (8.4 - 10.2) TOTAL BILI <0.7 MG/DL (0.2 - 1.3) ALKALINE PHOS 62 U/L (38 - 126) SGOT/AST 14 U/L (5 - 40) SGPT/ALT 13 U/L (7 - 56) ANION GAP 7.0 L mmol/L (8.0 - 16.0) AGE 65 yrs NON-AA GFR >60 mL/min AFR AMER GFR >60 Male GFR Interprentation 20-49 yrs >60 mL/min Nsvcai67-84 yrs >56 mL/min Normal 60-69 yrs >49 mL/min Normal 70-79yrs>42 mL/min Normal 80 and above >35 mL/min Normal Female GFRInterpretation 20-39 yrs >60 mL/min Normal 40-49 yrs >58 mL/minNormal 50-59 yrs >51 mL/min Normal 60-69 yrs >45 mL/min Vxuxcg01-52 yrs >39 mL/min Normal 80 and above >32 mL/min NormalLactic Acid: (OLE: 10/14/2020 00:01) ( MsgRcvd 10/14/2020 00:22) Final results Test Result Flag Units (Reference) LACTIC ACID 1.4 MMOL/L (0.2 - 2.2)PT/INR: (OLE: 10/14/2020 00:01) ( MsgRcvd 10/14/2020 00:22) Final results Test Result Flag Units (Reference) PROTIME 15.3 SECONDS (11.0 - 15.5) INR 1.15 (0.93 - 1.23) \\BLDo\\INR INTERPRETATION\\BLDx\\ Therapeutic range for Coumadin andrelated oral a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. - International Normalized Ratio (INR): 2.0 - 3.0 for VenousThrombosis, Pulmonary Embolus, Tissue heart valves, Acute NC, Atrial Fibrillation, Valvular heartdisease and recurrent Systemic Embolism. - International Normalized Ratio (INR): 2.5 - 3.5 6 Clinical Report - Physicians/Mid Levels [facility] Emergency Department [address] [place] [address] Phone #: ext- [phone] 10/13/2020 23:01 Patient: FABIANO RAMIREZ Sex: F : 1955 Age: 65yfor Mechanical Prosthetic valve.PT/PTT: (OLE: 10/13/2020 23:47) ( MsgRcvd 10/14/2020 00:06) CanceledTroponin-T: (OLE: 10/14/2020 00:01) ( MsgRcvd 10/14/2020 00:39) Final results Test Result Flag Units (Reference) TROPONIN T <0.01 NG/ML (0.00 - 0.10) TROPONIN T0.1 ng/ml Recommended as the clinical threshold value forTroponin T.Urinalysis: (OLE: 10/13/2020 23:45) ( [facility] [place]/14/[place] 00:22) Final results Test Result Flag Units (Reference) URINALYSIS URINALYSIS SOURCE R COLOR yellow (NORMAL: Yello CLARITY hazy (NORMAL: Clear SPEC GRAVITY 1.010 (1.001 - 1.030 pH 7 (5 - 9) GLUCOSE NORM (NORMAL: Negat BILIRUBIN NEG (NORMAL: Negat KETONE NEG (NORMAL: Negat PROTEIN NEG (NORMAL: Negat NITRITE NEG (NORMAL: Negat BLOOD 25 A (NORMAL: Negat LEUK EST 500 A (NORMAL: Negat UROBILINOGEN NOR (less than 1.0 MICROSCOPIC See Below WBC 7 - 10 A (NORMAL: NONE RBC 1 - 3 (NORMAL: NONE EPITHELIAL MODERATE A (NORMAL: NONE BACTERIA 2+ MOD A (NORMAL: NONEVenous Blood Gas: (OLE: 10/13/2020 23:47) ( [facility] [place] 10/13/2020 23:50) CanceledCRP: (OLE: 10/14/2020 00:01) ( [facility] [place] 10/14/2020 00:40) Final results Test Result Flag Units (Reference) CRP-HS 11.76 H MG/L (1.00 - 3.00) CDC/AHS HS-CRP CUT-OFF: RELATIVE RISK: <1.0 mg/LLow 1.0 - 3.0 mg/L Average >3.0 mg/LHigh Optimally, the average of HS-CRP results repeated two weeks apart should be used forrisk assessment.ABG: (OLE: 10/13/2020 23:47) ( [facility] [place] 10/14/2020 00:02) CanceledMagnesium: (OLE: 10/14/2020 00:01) ( [facility] [place] 10/14/2020 00:40) Final results Test Result Flag Units (Reference) MAGNESIUM 2.2 MG/DL (1.7 - 2.2)Chest Portable 1 View: (OLE: 10/13/2020 23:47) ( MsgRcvd 10/14/2020 00:54) In [facility] PORTABLE 7 Clinical Report - Physicians/Mid Levels [facility] Emergency Department [address] [place] [address] Phone #: ext- [phone] 10/13/2020 23:01 Patient: FABIANO RAMIREZ Sex: F : 1955 Age: 65y Reason(s): ciugh hemoptysis TRANSPORTATION: P IV? O2? Oxygen?(Yes) Room: E D-Dimer: (OLE: 10/14/2020 00:01) ( MsgRcvd 10/14/2020 00:40) Final results Test Result Flag Units (Reference) D-DIMER QUANT 0.32 ug/mL (0.27 - 0.50).PROGRESS AND PROCEDURESCourse of Care: 00:14 10/14/20. her repeat O2 sat was 97 on RA. she is not on oxygen at home 03:57 10/14/20. patient has not had a cough or episode of hemoptysis in the ER. troponin, wbc were normal she has a UTI for which she was given Rocephin. will discharge her home with bactrim DS 1 tab BID x 7 days. Patient counseled in person regarding the patient's stable condition, test results, diagnosis and need for follow-up. Patient agrees with plan of care. 04:04. Disposition: Discharged home in good and improved condition (04:07). Condition: good and stable. Discharge decision based on the following: patient's condition is stable; patient is ambulatory; patient drinking fluids; patient's exam is stable; no seriously abnormal test results; stable condition on multiple repeat evaluations; social support is adequate; transportation is available; follow-up is available; clinical impression is consistent with outpatient treatment.CLINICAL IMPRESSION Acute cough Acute urinary tract infection with cystitis and hematuria.INSTRUCTIONS (the blood work were unremarkable CXR as well as CT scan of the chest did not show any pathology. you have a UTI. take the bactrim as prescribed. do not take potassium tablets while on bactrim . increase oral fluids.). Your Current Medications: Your current home medications have been reviewed. STOP TAKING THE FOLLOWING MEDICATIONS: Potassium Chloride Oral : Packet 20 meq, 2x a day. CONTINUE TAKING THE FOLLOWING MEDICATIONS: Albuterol Sulfate Inhalation : 2 unit doses. Eliquis Oral. 8 Clinical Report - Physicians/Mid Levels [facility] Emergency Department [address] [place] [address] Phone #: ext- [phone] 10/13/2020 23:01 Patient: FABIANO RAMIREZ Sex: F : 1955 Age: 65y HYDROcodone-Acetaminophen Oral : Solution 7.5-325 mg/15mL, prn. KlonoPIN Oral : 0.25 mg, at bedtime. LaMICtal Oral : Tablet 25 mg, 2x a day. Meclizine HCl Oral : 50 mg 2x a day. MiraLax Oral : 1 packet. Motrin IB Oral : 400, prn. Promethazine HCl Oral : Tablet 25 mg, prn. Sudafed Oral : 60 mg 2x a day. ZyPREXA Oral : Tablet 10 mg, at bedtime. Prescription Medications: Bactrim DS 800 mg-160 mg tablet Take 1 tablet twice a day for 7 days -- Dispense 14 tablet. Refills: 0. Substitution permitted. Pharmacy - [id number] - [address] ; [place] [address]. . Follow-up: Follow up with your healthcare provider Friday if not better. Reason for referral: evaluation. Summary of care provided to patient via paper.(Electronically signed by Karen Lilly 10/15/2020 07:57) Name Value Range Interpretation Code Description Data Melanie rce(s) Supporting Document(s) ID Date Data Source [id number] 10/14/2020 03:51:00 AM EDT [address] [place] [address] ---------NAME--------- NUMBER SEX AGE ADMIT DISC. XRAY# F/C TYPE CANDIDO MARIO [id number] F 65 10/13/20 [id number] E/R DATE OF : 1955 M/R# [id number] #: [id number] TR-04 LOCATION: TRANSCRIBED: 10/14/20 3:[address] CTA CHEST NON-CORONARY W [id number] COMPLETED:10/14/20 2:52 [facility] [place] [address] Reason(s): hemoptysis PHYSICIAN: VIJAYA R A D I O L O G Y R E P O R T PATIENT HISTORY:hemopstysis. isovue 370 75 ml [id number] exp 09/12. estimated dose 394.5. actualdose 395.6 mGy*cm.Time Out performed. Correct patient with 2 identifiers, type and amount ofcontrast used, correct body part and side all verified prior to examination. /COR SLAB MIP (DICOM Hx)EXAM: CTA Chest with Intravenous Contrast for PE evaluationCLINICAL HISTORY:hemopstysis. isovue 370 75 ml [id number] exp 09/12. estimated zdid523.5. actual dose 395.6 mGy*cm. Time Out performed. Correct patient with 2identifiers, type and amount of contrast used, correct body part and side allverified prior to examination.TECHNIQUE: Axial CTA images of the chest with intravenous contrast using apulmonary embolism protocol. Multiplanar reconstructed images were created andreviewed. All CT scans at this facility use dose modulation, iterativereconstruction, and/or weight-based dosing when appropriate to reduce radiationdose to as low as reasonably achievable.CONTRAST:With; Iodine 0 was administered without incident.COMPARISON:None provided.FINDINGS:PULMONARY ARTERIES: No evidence of central or segmental pulmonary embolism isseen.AORTA: There is no evidence for aneurysm or dissection of the thoracic aorta.LUNGS:Some minimal atelectasis or scarring is seen at the lung bases. The lungsare otherwise clear. The tracheobronchial tree is unremarkable.PLEURAL SPACES: No evidence of pneumothorax. No pleural effusion.HEART:There is moderate cardiomegaly. No pericardial ef fusion is seen.LYMPH NODES: No lymphadenopathy is evident.BONES:Moderate spinal scoliosis is noted.UPPER ABDOMEN: Images of the upper abdomen are unremarkable.IMPRESSION:No definite pulmonary embolus.No acute cardiopulmonary abnormality.While performing the above CT examination, radiation dose reduction wasaccomplished utilizing automated exposure control, adjusting of the mA and kVbased on the patient's body size and/or the use of imperative reconstructivetechniques.Electronically Signed By:Del Alicea MD , RadiologistDate/Time: 10/14/20 03:51 Name Value Range Interpretation Code Description Data Melanie rce(s) Supporting Document(s) ID Date Data Source [id number] 10/21/2020 06:30:00 AM EDT [facility] Name Value Range Interpretation Code Description Data [facility] rce(s) Supporting Document(s) CULTURE BLOOD [facility] spital _CULTURE BLOOD_ TEST [place]FORM [place] [address] CLIA# [id number] SEE SCANNED REPORT{ PRELIM ID Date Data Source [id number] 10/14/2020 12:35:00 AM EDT [facility] ([facility]) Name Value Range Interpretation Code Description Data Melanie rce(s) Supporting Document(s) Culture Blood Laboratory test result [facility] ([facility]) _CULTURE BLOOD_ TEST PERFORMED AT [address] [address] CLIA# [id number] SEE SCANNED REPORT { PRELIM ID Date Data Source [id number] 10/19/2020 11:49:00 AM EDT [facility] [address] Name Value Range Interpretation Code Description Data Melanie rce(s) Supporting Document(s) Bacteria identified in Blood by Culture [facility] NO GROWTH AFTER 5 DAYS ID Date Data Source [id number] 10/21/2020 06:29:00 AM EDT [facility] Name Value Range Interpretation Code Description Data Melanie rce(s) Supporting Document(s) CULTURE BLOOD [facility] _CULTURE BLOOD_ TEST PERFORM ED AT [address] [address] CLIA# [id number] SEE SCANNED REPORT{ PRELIM ID Date Data Source [id number] 10/14/2020 12:04:00 AM EDT [facility] ([facility]) Name Value Range Interpretation Code Description Data Melanie rce(s) Supporting Document(s) Culture Blood Laboratory test result [facility] ([facility]) _CULTURE BLOOD_ TEST PERFORMED AT [address] [address] CLIA# [id number] SEE SCANNED REPORT { PRELIM ID Date Data Source [id number] 10/14/2020 12:01:00 AM EDT [facility] ([facility]) Name Value Range Interpretation Code Description Data Melanie rce(s) Supporting Document(s) C reactive protein [Mass/volume] in Serum or Plasma by High sensitivity method 11.76 mg/L 1.00-3.00 [facility] ([facility] ) <content>CDC/S HS-CRP CUT-OFF: RELATIVE RISK:</content>
<content><1.0 mg/L Low</content>
<content>1.0 - 3.0 mg/L Average</laron nt>
<content>>3.0 mg/L High</content>
<content>Optimally, the average of HS-CRP results repeated</content>
<content>two weeks apart should be used for risk assessment.</content>
<content></content> Magnesium Serum 2.2 mg/dL 1.7-2.2 [facility] ([facility]) Natriuretic peptide.B prohormone N-Terminal [Mass/volu me] in Serum or Plasma 20 pg/mL 0-125 [facility] ([facility] ) Fibrin D-dimer [Presence] in Platelet poor plasma 0.32 ug/mL 0.27-0.5 0 [facility] ([facility]) ID Date Data Source [id number] 10/14/2020 12:01:00 AM EDT [facility] ([facility]) Name Value Range Interpretation Code Description Data Melanie rce(s) Supporting Document(s) Comprehensive [facility]abo Laboratory test result [facility] ([facility]) COMPREHENSIVE METABOLIC PANEL Sodium 140 meq/L 134-153 [facility]) Potassium 3.9 meq/L 3.6-5.0 [facility] ([facility]) Co2 31 meq/L 22-30 [facility] ([facility]) Chloride 102 meq/L 98-107 [facility] ([place] [facility]) BUN 12 mg/dL 7-21 [facility] [facility] Glucose 94 mg/dL 70-99 [facility] ([place] [facility]) Creatinine 0.8 mg/dL 0.7-1.5 [facility] ([facility]) Total Protein 7.0 g/dL 6.3-8.2 [facility] ([facility]) BUN/Creat 15 8-27 [facility] ([place] [facility]) Globulin 2.8 GM/DL 2.4-3.2 [facility] ([place] [facility]) Albumin 4.2 g/dL 3.9-5.0 [facility] ([place] [facility]) A/G Ratio 1.5 0.8-2.0 [facility] ([place] [facility]) Calcium 10.1 mg/dL 8.4-10.2 [facility] ([facility]) Total Bili Laboratory test result 0.2-1.3 [facility] ([facility]) Alkaline Phos 62 U/L 38-126 [facility] ([facility]) Sgot/Ast 14 U/L 5-40 [facility] ([place] [facility]) SGPT/Alt 13 U/L 7-56 [facility] ([facility]) Anion Gap 7.0 mmol/L 8.0-16.0 [facility] ([facility]) Non-Aa GFR Laboratory test result [facility] Age 65 yrs [facility] ([facility]) Afr Amer GFR Laboratory test result [facility] Male GFR Interprentation 20-49 yrs >60 mL/min Normal 50-59 yrs >56 mL/min Normal 60-69 yrs >49 mL/min Normal 70-79yrs >42 mL/min Normal 80 and above >35 mL/min Normal Female GFR Interpretation 20-39 yrs >60 mL/min Normal 40-49 yrs >58 mL/min Normal 50-59 yrs >51 mL/min Normal 60-69 yrs >45 mL/min Normal 70-79 yrs >39 mL/min Normal 80 and above >32 mL/min Normal ID Date Data Source [id number] 10/14/2020 12:01:00 AM EDT [facility] ([facility]) Name Value Range Interpretation Code Description Data Melanie rce(s) Supporting Document(s) Troponin T.cardiac [Mass/volume] in Serum or Plasma Laborato ry test result 0.00-0.10 [facility] ([facility] TROPONIN T 0.1 ng/ml Recommended as the clinical th reshold value for Troponin T. ID Date Data Source [id number] 10/14/2020 12:01:00 AM EDT [facility] ([facility]) Name Value Range Interpretation Code Description Data Melanie rce(s) Supporting Document(s) pCO2 V 56.1 mm/HG 38.0-51.0 [facility] ([facility]) pH V 7.37 7.32-7.43 [facility] ([place] [facility]) pO2 V 39.7 mm/HG 30.0-55.0 [facility] ([facility]) Hco3 V 31.5 meq/L 22.0-29.0 [facility] ([facility]) Tco2 V 33.2 meq/L 22.0-29.0 [facility] ([facility]) O2 Sat V 73.4 % 40.0-85.0 [facility] ([place] [facility]) Base Excess 4.9 [facility] ([facility]) ID Date Data Source [id number] 10/14/2020 12:01:00 AM EDT [facility] ([facility]) Name Value Range Interpretation Code Description Data Melanie rce(s) Supporting Document(s) Protime 15.3 s 11.0-15.5 [facility] ([place] [facility]) Inr 1.15 0.93-1.23 [facility] ([facility]) \\BLDo\\INR INTERPRETATION\\BLDx\\ Therapeutic range for Coumadin and related oral a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. -International Normalized Ratio (INR): 2 .0 - 3.0 for Venous Thrombosis, Pulmonary Embolus, Tissue heart valves, Acute NC, Atrial Fibrillation, Valvular heart disease and recurrent Systemic Embolism. -International Normalized Ratio (INR): 2 .5 - 3.5 for Mechanical Prosthetic valve. ID Date Data Source [id number] 10/14/2020 12:01:00 AM EDT [facility] ([facility]) Name Value Range Interpretation Code Description Data Melanie rce(s) Supporting Document(s) Lactate [Mass/volume] in Serum or Plasma 1.4 mmol/L 0.2-2.2 [facility] ID Date Data Source [id number] 10/14/2020 12:01:00 AM EDT [facility] ([facility]) Name Value Range Interpretation Code Description Data Melanie rce(s) Supporting Document(s) CBC W/Automated Diff Laboratory test result [facility] ([facility]) COMPLETE BLOOD COUNT WBC 5.8 10^3/uL 4.2-11.0 [facility] ([facility]) RBC 3.92 10^6/uL 4.20-5.40 [facility] ([facility]) Hematocrit 36.6 % 37.0-47.0 [facility] Hemoglobin 11.9 g/dL 12.0-16.0 [facility] MCV 93.4 fL 81.0-101 [facility]) MCH 30.4 pg 27.0-34.0 [facility]) RDW 15.5 % 11.5-14.5 [facility]) MCHC 32.5 g/dL 31.0-36.0 [facility]) Platelets 204 10^3/uL 150-450 [facility] ([facility]) MPV 8.4 fL 7.4-10.4 [facility]) Neut 43.7 % 37.0-80.0 [facility] Lymph 45.6 % 25.0-40.0 [facility]) Caldwell 6.2 % 3.0-8.0 [facility]) Baso 0.3 % 0.0-2.5 [facility]) Eos 4.0 % 0.0-7.0 [facility]) %Ig 0.2 % 0.0-0.0 [facility]) %NRBC 0.0 % 0.0-0.0 [facility]) #Neut 2.54 10^3/uL 2.00-6.90 [facility] ([facility]) #Lymph 2.65 10^3/uL 0.60-3.40 [facility] ([facility]) #Caldwell 0.36 10^3/uL 0.00-0.90 [facility] ([facility]) #Eos 0.23 10^3/uL 0.00-0.70 [facility] ([facility]) #Baso 0.02 10^3/uL 0.00-0.20 [facility] ([facility]) #Ig 0.01 10^3/uL 0.00-0.10 [facility] ([facility]) #NRBC 0.00 10^3/uL 0.00-0.00 [facility] ([facility]) Manual Diff Laboratory test result [facility] ([facility]) RBC Morph Laboratory test result [facility] ([facility]) ID Date Data Source [id number] 10/14/2020 02:08:[address] [facility] Value Range Interpretation Code Description Data Melanie rce(s) Supporting Document(s) BNP 20 PG/ML 0 - 125 [facility] ID Date Data Source [id number] 10/14/2020 12:40:[address] [facility] Value Range Interpretation Code Description Data Melanie rce(s) Supporting Document(s) Fibrin D-dimer FEU [Mass/volume] in Platelet poor plasma 0.32 ug /mL 0.27 - 0.50 [facility] ID Date Data Source [id number] 10/14/2020 12:39:[address] [facility] Value Range Interpretation Code Description Data Melanie rce(s) Supporting Document(s) Magnesium [Mass/volume] in Serum or Plasma 2.2 MG/DL 1.7 - 2.2 [facility] ID Date Data Source [id number] 10/14/2020 12:39:[address] [facility] Value Range Interpretation Code Description Data Melanie rce(s) Supporting Document(s) C reactive protein [Mass/volume] in Serum or Plasma by High sensitivity method 11.76 MG/L 1.00 - 3.00 [facility]/S HS-CRP CUT-OFF: RELATIVE RISK: <1.0 mg/L Low 1.0 - 3.0 mg/L Average >3.0 mg/L High Optimally, the average of HS-CRP results repeated two weeks apart should be used for risk assessment. ID Date Data Source [id number] 10/14/2020 12:39:00 AM EDT [facility] Name Value Range Interpretation Code Description Data Melanie rce(s) Supporting Document(s) COMPREHENSIVE METABOLIC PANEL [facility] COMPREHENSIVE METABOLIC PANEL Sodium [Moles/volume] in Serum or Plasma 140 mEq/L 134 - 153 [facility] Potassium [Moles/volume] in Serum or Plasma 3.9 mEq/L 3.6 - 5.0 [facility] Chloride [Moles/volume] in Serum or Plasma 102 mEq/L 98 - 107 [facility] Carbon dioxide, total [Moles/volume] in Serum or Plasma 31 MEQ/L 22 - 30 H [facility] Glucose [Mass/volume] in Serum or Plasma 94 MG/DL 70 - 99 [facility] BUN 12 MG/DL 7 - 21 [facility] al Creatinine [Mass/volume] in Serum or Plasma 0.8 MG/DL 0.7 - 1.5 [facility] BUN/CREAT 15 8 - 27 [facility] Protein [Mass/volume] in Serum or Plasma 7.0 G/DL 6.3 - 8.2 [facility] Albumin [Mass/volume] in Serum or Plasma 4.2 G/DL 3.9 - 5.0 [facility] Globulin [Mass/volume] in Serum by calculation 2.8 GM/DL 2.4 - 3.2 [facility] A/G RATIO 1.5 0.8 - 2.0 [facility] Calcium [Mass/volume] in Serum or Plasma 10.1 MG/DL 8.4 - 10.2 [facility] Bilirubin.total [Mass/volume] in Serum or Plasma <0.7 MG/DL 0.2 - 1.3 [facility] Alkaline phosphatase [Enzymatic activity/volume] in Serum or Plasma 62 U/L 38 - 126 [facility] Aspartate aminotransferase [Enzymatic activity/volume] in Serum or Plasma 14 U/L 5 - 40 [facility] Alanine aminotransferase [Enzymatic activity/volume] in Seru m or Plasma 13 U/L 7 - 56 [facility] Anion gap 3 in Serum or Plasma 7.0 mmol/L 8.0 - 16.0 L [facility] AGE 65 yrs [facility] NON-AA GFR >60 mL/min [facility] AFR AMER GFR >60 [facility] Male GFR In terprentation 20-49 yrs >60 mL/min Normal 50-59 yrs >56 mL/min Normal 60-69 yrs >49 mL/min Normal 70-79yrs >42 mL/min Normal 80 and above >35 mL/min Normal Female GFR Interpretation 20-39 yrs >60 mL/min Normal 40-49 yrs >58 mL/min Normal 50-59 yrs >51 mL/min Normal 60-69 yrs >45 mL/min Normal 70-79 yrs >39 mL/min Normal 80 and above >32 mL/min Normal ID Date Data Source [id number] 10/14/2020 12:39:00 AM EDT [facility] Name Value Range Interpretation Code Description Data Melanie rce(s) Supporting Document(s) TROPONIN T <0.01 NG/ML 0.00 - 0.10 [facility] TROPONIN T0.1 ng/ml Recommended as the c linical threshold value forTroponin T. ID Date Data Source [id number] 10/14/2020 12:22:00 AM T [facility] Name Value Range Interpretation Code Description Data Melanie rce(s) Supporting Document(s) Prothrombin time (PT) 15.3 SECONDS 11.0 - 15.5 [facility] INR in Platelet poor plasma by Coagulation assay 1.15 0.93 - 1. 23 [facility] \\BLDo\\INR INTERPRETATION\\BLDx\\ Therapeutic range for Coumadin and related oral a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. - International Normalized Ratio (INR): 2.0 - 3.0 for Venous Thrombosis, Pulmonary Embolus, Tissue heart valves, Acute NC, Atrial Fibrillation, Valvular heart disease and recurrent Systemic Embolism. -International Normalized Ratio (INR): 2.5 - 3.5 for Mechanical Prosthetic valve. ID Date Data Source [id number] 10/14/2020 12:22:00 AM T [facility] Name Value Range Interpretation Code Description Data Melanie rce(s) Supporting Document(s) Lactate [Moles/volume] in Serum or Plasma 1.4 MMOL/L 0.2 - 2.2 [facility] ID Date Data Source [id number] 10/14/2020 12:22:00 AM EDT [facility] Name Value Range Interpretation Code Description Data Melanie rce(s) Supporting Document(s) pH of Serum or Plasma 7.37 7.32 - 7.43 [facility] pCO2 V 56.1 mm/HG 38.0 - 51.0 H [facility] pO2 V 39.7 mm/HG 30.0 - 55.0 [facility] Bicarbonate [Moles/volume] in Venous blood 31.5 meq/L 22.0 - 29.0 H [facility] TCO2 V 33.2 meq/L 22.0 - 29.0 H [facility] Base excess in Blood by calculation 4.9 -2.0 - 2.0 H [facility] O2 SAT V 73.4 % 40.0 - 85.0 [facility] ID Date Data Source [id number] 10/14/2020 12:10:00 AM T [facility] Name Value Range Interpretation Code Description Data Melanie rce(s) Supporting Document(s) CBC W/AUTOMATED DIFF [facility] COMPLETE BLOOD COUNT Leukocytes [#/volume] in Blood by Automated count 5.8 10^3/uL 4.2 - 1 1.0 [facility] Erythrocytes [#/volume] in Blood by Automated count 3.92 10^6/uL 4. 20 - 5.40 L [facility] Hemoglobin [Mass/volume] in Blood 11.9 g/dL 12.0 - 16.0 L [facility] Hematocrit [Volume Fraction] of Blood by Automated count 36.6 % 3 7.0 - 47.0 L [facility] Erythrocyte mean corpuscular volume [Entitic volume] by Auto mated count 93.4 fL 81.0 - 101 [facility] Erythrocyte mean corpuscular hemoglobin [Entitic mass] by Automated count 30.4 pg 27.0 - 34.0 [facility] Erythrocyte mean corpuscular hemoglobin concentration [Mass/volume] by Automated count 32.5 g/dL 31.0 - 36.0 [facility] Erythrocyte distribution width [Ratio] by Automated count 15.5 % 11.5 - 14.5 [facility] [facility] Platelets [#/volume] in Blood by Automated count 204 10^3/uL 150 - 45 0 [facility] Platelet mean volume [Entitic volume] in Blood by Automated count 8.4 fL 7.4 - 10.4 [facility] Neutrophils/100 leukocytes in Blood by Automated count 43.7 % 37. 0 - 80.0 [facility] Lymphocytes/100 leukocytes in Blood by Manual count 45.6 % 25.0 - 40.0 H [facility] Monocytes/100 leukocytes in Blood by Automated count 6.2 % 3.0 - 8.0 [facility] Eosinophils/100 leukocytes in Blood by Automated count 4.0 % 0.0 - 7.0 [facility] Basophils/100 leukocytes in Blood by Automated count 0.3 % 0.0 - 2.5 [facility] %IG 0.2 % 0.0 - 0.0 [facility] %NRBC 0.0 % 0.0 - 0.0 [facility] al Neutrophils [#/volume] in Blood by Automated count 2.54 10^3/uL 2.00 - 6.90 [facility] Lymphocytes [#/volume] in Blood by Automated count 2.65 10^3/uL 0.60 - 3.40 [facility] Monocytes [#/volume] in Blood by Automated count 0.36 10^3/uL 0.00 - 0.90 [facility] Eosinophils [#/volume] in Blood by Automated count 0.23 10^3/uL 0.00 - 0.70 [facility] Basophils [#/volume] in Blood by Automated count 0.02 10^3/uL 0.00 - 0.20 [facility] #IG 0.01 10^3/uL 0.00 - 0.10 [facility] ospital #NRBC 0.00 10^3/uL 0.00 - 0.00 [facility]ital MANUAL DIFF NOT INDICATED [facility] RBC MORPH NOT INDICATED [facility] spital ID Date Data Source [id number] 10/18/2020 02:37:00 PM EDT [facility] Name Value Range Interpretation Code Description Data Melanie rce(s) Supporting Document(s) CULTURE URINE [facility] spital _CULTURE URINE_$$[id number]$$[id number]$$[id number]$$[id number]$$[id number]$$[id number]$$065025$$108026$$[id number]$$ 086146$$734173$$335055$$246809$$563026$$084763$$740644$$713714$$968585$$611908$$ 507144$$997900$$586192$$965799$$065472$$367511$$[id number]$$[id number] -- Continued on next page --Patient: LETTIERE FABIANO Order: [id number] Page 2Culture: CULTURE URINE Status: Final ==== -- Continued on next page --Patient: LETTIERE FABIANO Order: [id number] Page 2Culture: CULTURE URINE Status: Prelim ===== -- Continued on next page --Patient: LETTIERE FABIANO Order: [id number] Page 2Culture: CULTURE URINE Status: Prelim =====$$[id number]$$[id number] DATE/TIME: 10/18/2020 12:06Culture: CULTURE URINE Status: FinalIsolate 1 Enterococcus faecalis Flag: A . . . . . . .7Greater than 100,000 colony forming units per mL Previous result entered on 10/17/2020 14:24 ET Enterococcus faecalisSusceptibility results being verified. Final report to follow. Previous result entered on 10/17/2020 05:41 ET Microbiological testing to rule out the presence of possible pathogensis in progress.Urine Culture,Comprehensive: [id number] faecalis Flag: APatient: CANDIDO MARIO Order: [id number] Page 3Culture: CULTURE URINE Status: Final ISOLATE 1 Enterococcus faecalis Isolate 1Antibiotic YONG IntUnits ug/mL ----Ciprofloxacin R R . . . . . .185-9Levofloxacin R R . . . . . .12546-9Pnzsyjaasgpdfy S S . . . . . .363-2Penicillin S S . . . . . .6932-8Tetracycline R R . . . . . .496- 0Vancomycin S S . . . . . .524-9P1 Test performed by: [employer] Janel HURTADO #: [id number] [address] [place] [address] [id number] [facility] [address]Uksruza Director : Ross Jeffers MD NPI #:Embedded Processor : 10/17/2058.XMT.SENT REF 10/18/20.XMT.SENT REF 10/18/20.1437.XMT.SENT REF ID Date Data Source [id number] 10/13/2020 11:45:00 PM EDT [facility]) Name Value Range Interpretation Code Description Data Melanie rce(s) Supporting Document(s) Urinalysis Laboratory test result [facility] ([facility]) SOURCE: Clean Catch Source Laboratory test result [facility] ([facility]) SOURCE: Clean Catch Clarity Laboratory test result [facility] ([facility]) SOURCE: Clean Catch Color Laboratory test result [facility] ([facility] SOURCE: Clean Catch Spec [place] 1.010 1.001-1.030 [facility] ([facility] SOURCE: Clean Catch Glucose Laboratory test result [facility] ([facility] SOURCE: Clean Catch pH 7 5-9 [facility] ([facility]) SOURCE: Clean Catch Bilirubin Laboratory test result [facility] ([facility]) SOURCE: Clean Catch Ketone Laboratory test result [facility] ([facility] SOURCE: Clean Catch Protein Laboratory test result [facility] ([facility] SOURCE: Clean Catch Blood 25 Abnormal (applies to non-numeric res ults) [facility] ([facility]) SOURCE: Clean Catch Nitrite Laboratory test result [facility] ([facility] SOURCE: Clean Catch Leuk Est 500 Abnormal (applies to non-numeric res ults) [facility] ([facility]) SOURCE: Clean Catch Urobilinogen Laboratory test result [facility] NT ([facility] SOURCE: Clean Catch Microscopic Laboratory test result [facility] T ([facility] SOURCE: Clean Catch WBC Laboratory test result Abnormal (applies to non -numeric results) [facility] ([facility]) SOURCE: Clean Catch RBC Laboratory test result [facility] ([facility]) SOURCE: Clean Catch Epithelial Laboratory test result Abnormal (applies to non -numeric results) [facility] ([facility] SOURCE: Clean Catch Bacteria Laboratory test result Abnormal (applies to non -numeric results) [facility] ([facility]) SOURCE: Clean Catch ID Date Data Source [id number] 10/13/2020 11:45:00 PM EDT [facility] ([facility]) Name Value Range Interpretation Code Description Data Melanie rce(s) Supporting Document(s) Culture Urine Laboratory test result [facility] ([facility]) SOURCE: Clean Catch ID Date Data Source [id number] 10/14/2020 12:22:00 AM EDT [facility] Name Value Range Interpretation Code Description Data Melanie rce(s) Supporting Document(s) [facility]IS [facility] UR[facility]ALYS[facility] SOURCE R [facility] COLOR yellow NORMAL: Yellow [facility] CLARITY hazy NORMAL: Clear [facility] Specific gravity of Urine by Test strip 1.010 1.001 - 1.030 [facility] pH 7 5 - 9 [facility] al Glucose [Mass/volume] in Urine by Test strip NORM NORMAL: Negat [facility] Bilirubin.total [Presence] in Urine by Test strip NEG NORMAL: Negative [facility] Ketones [Presence] in Urine by Test strip NEG NORMAL: Negative [facility] Protein [Mass/volume] in Urine by Test strip NEG NORMAL: Negat [facility] Nitrite [Presence] in Urine by Test strip NEG NORMAL: Negative [facility] BLOOD 25 NORMAL: Negative [facility] Leukocyte esterase [Presence] in Urine by Test strip 500 KNAE L: Negative [facility] Urobilinogen [Mass/volume] in Urine by Test strip NOR less deanna n 1.0 mg/dL [facility] MICROSCOPIC See Below [facility] ital WBC 7 - 10 NORMAL: NONE SEEN A [facility] Erythrocytes [#/volume] in Urine by Test strip 1 - 3 NORMAL: NON E SEEN [facility] EPITHELIAL MODERATE NORMAL: NONE SEEN A [facility] Bacteria [Presence] in Urine sediment by Light microscopy 2+ MOD NORMAL: NONE SEEN A [facility] ID Date Data Source [id number] 09/16/2020 05:22:00 AM EST [facility] ([facility]) Name Value Range Interpretation Code Description Data Melanie rce(s) Supporting Document(s) Bedside Glucose 82 mg/dL 80-115 [facility] ([facility]) ID Date Data Source [id number] 09/16/2020 04:34:00 AM EST [facility] ([facility]) Name Value Range Interpretation Code Description Data Melanie rce(s) Supporting Document(s) Urine Culture Laboratory test result [facility] ([facility]) <content>FULL REPORT IN LAB NOTES (eCW [...] FOR ESBL</content>
<content></content> ID Date Data Source [id number] 09/09/2020 12:43:00 AM EST [facility] Name Value Range Interpretation Code Description Data Melanie rce(s) Supporting Document(s) Laboratory test finding (navigational concept) 39.0 % 38.0-51.0 [facility] ([facility]) Laboratory test finding (navigational concept) 85 mg/dL 70-105 [facility] ([facility]) Laboratory test finding (navigational concept) 4.1 meq/L 3.5-5.1 [facility] ([facility]) Laboratory test finding (navigational concept) 142 meq/L 136-145 [facility] ([facility]) Laboratory test finding (navigational concept) 5.1 mg/dL 4.5-5.3 [facility] ([facility]) Laboratory test finding (navigational concept) 106 meq/L 98-109 [facility] ([facility]) Laboratory test finding (navigational concept) 18 mg/dL 8-26 [facility] ([facility]) Laboratory test finding (navigational concept) 29.0 MM/L 23.0-27.0 [facility] ([facility]) Laboratory test finding (navigational concept) 0.9 mg/dL 0.6-1.3 [facility] ([facility]) ID Date Data Source [id number] 09/09/2020 12:37:00 AM EST [facility] ([facility]) Name Value Range Interpretation Code Description Data Melanie rce(s) Supporting Document(s) Lipoprotein lipase [Enzymatic activity/volume] in Serum or P lasma 141 U/L 73-393 [facility] ([facility]) ID Date Data Source [id number] 09/09/2020 12:37:00 AM EST [facility] ([facility]) Name Value Range Interpretation Code Description Data Melanie rce(s) Supporting Document(s) Ast/Sgot 10 U/L 7-37 [facility] Alt/SGPT 16 U/L 12-78 [facility] Alkaline Phosphatase 60 U/L 45-117 [facility] ([facility]) Bilirubin,Total 0.2 mg/dL 0.2-1.0 [facility] ([facility]) Bilirubin,Direct Laboratory test result 0.0-0.2 [facility] ([facility]) Total Protein 7.2 GM/DL 6.4-8.2 [facility] ([facility]) Albumin 3.2 GM/DL 3.2-5.2 [facility] ([facility]) Albumin/Globulin Ratio 0.8 1.2-2.2 [facility] ([facility]) ID Date Data Source [id number] 09/09/2020 12:37:00 AM EST [facility] ([facility]) Name Value Range Interpretation Code Description Data Emlanie rce(s) Supporting Document(s) White Blood Count 5.2 10 4.0-10.0 [facility] ([facility]) Hemoglobin 11.7 g/dL 12.0-15.5 [facility] Red Blood Count 4.06 10 4.00-5.40 [facility] ([facility]) Hematocrit 38.6 % 36.0-47.0 [facility] Mean Corpuscular Volume 95.1 fl 80.0-96.0 [facility] ([facility]) Mean Corpuscular Hemoglobin 28.8 pg 27.0-33.0 [facility] ([facility]) Mean Corpuscular HGB Conc 30.3 g/dL 32.0-36.5 [facility] NT ([facility]) Platelet Count, Automated 180 10 150-450 [facility] NT ([facility]) Red Cell Distribution Width 14.7 % 11.5-14.5 [facility] ([facility]) Neutrophils % 50.9 % 36.0-66.0 [facility] ([facility]) Lymph % 37.5 % 24.0-44.0 [facility]) [place] % 7.9 % 2.0-8.0 [facility] Eos % 3.3 % 0.0-3.0 [facility]) Baso % 0.2 % 0.0-1.0 [facility]) Immature Granulocyte % 0.2 % 0-3.0 [facility] ([facility]) Nucleated Red Blood Cell % 0.0 % 0-0 [facility] ([facility]) Neutrophils # 2.6 10 1.5-8.5 [facility] ([facility]) Lymph # 1.9 10 1.5-5.0 [facility]) [place] # 0.4 10 0.0-0.8 [facility]) Eos # 0.2 10 0.0-0.5 [facility]) Baso # 0.0 10 0.0-0.2 [facility]) ID Date Data Source [id number] 08/12/2020 08:01:00 AM EST [facility] ([facility]) Name Value Range Interpretation Code Description Data Melanie rce(s) Supporting Document(s) Reflex Urine Culture Laboratory test result [facility] ([facility]) <content>FULL REPORT IN LAB NOTES (eCW [...] FOR ESBL</content>
<content></content> ID Date Data Source [id number] 08/12/2020 08:01:00 AM EST [facility] Name Value Range Interpretation Code Description Data Melanie rce(s) Supporting Document(s) Color, Urine RFX Laboratory test result [facility] ([facility]) Appearance, Urine RFX Laboratory test result [facility] ([facility] PH,Urine RFX 7.0 units 5.0-9.0 [facility] [facility] Specific [place] Ur Auto RFX 1.008 1.002-1.035 [facility] ([facility]) Protein, Urine Auto RFX Laboratory test result [facility] ([facility] Ketone, Urine Auto RFX Laboratory test result [facility] ([facility] Glucose, Urine (Ua) Auto RFX Laboratory test result [facility] ([facility] Bilirubin, Urine Auto RFX Laboratory test result [facility] ([facility] Urobilinogen, Urine Auto RFX 0.2 mg/dL 0.0-2.0 [facility] ([facility] Nitrite, Urine Auto RFX Laboratory test result [facility] ([facility] Blood, Urine Blood RFX Laboratory test result [facility] ([facility]) Leukocyte Esterase Ur Auto RFX Laboratory test result [facility] ([facility]) WBC, Urine Auto RFX 9 /HPF 0-3 [facility] ([facility] Bacteria, Urine Auto RFX Laboratory test result [facility] ([facility]) RBC, Urine Auto RFX 9 /HPF 0-3 [facility] ([facility] Squam Epithelial Cell Ur Aurfx 5 /HPF 0-6 [facility] ([facility]) Hyaline Cast, Urine Auto RFX 0 /LPF 0-1 M [facility]ENT ([facility]) Mucus, Urine RFX Laboratory test result [facility] ([facility]) Amorphous Sediment RFX Laboratory test result [facility] ([facility]) ID Date Data Source [id number] 08/12/2020 07:52:00 AM EST [facility] ([facility]) Name Value Range Interpretation Code Description Data Melanie rce(s) Supporting Document(s) Gats Culture (Neg Strep SCR) Laboratory test result [facility] ([facility]) FULL REPORT IN LAB NOTES (eCW and [facility] ). NEGATIVE FOR STREP PYOGENES (GROUP A) ID Date Data Source [id number] 08/12/2020 06:51:00 AM EST [facility] ([facility]) Name Value Range Interpretation Code Description [...] pathogens. DISCLAIMER: Testing was performed using the [employer] SARS-CoV-2 test. This test was developed and its performance characteristics determined by [employer]. This test has not been FDA cleared [...] or revoked sooner. ID Date Data Source [id number] 08/12/2020 06:51:00 AM EST [facility] Name Value Range Interpretation Code Description Data Melanie rce(s) Supporting Document(s) SARS coronavirus 2 RNA [Presence] in Res piratory specimen by MILAGROS with probe detection NEGATIVE [facility] This lab was ordered by [facility] a nd reported by [facility]. ID Date Data Source [id number] 07/22/2020 04:54:00 AM EST [facility] ([facility]) Name Value Range Interpretation Code Description Data Melanie rce(s) Supporting Document(s) Reflex Urine Culture Laboratory test result [facility] ([facility]) <content>FULL REPORT IN LAB NOTES (eCW [...] 1 S</content>
<content></content> ID Date Data Source [id number] 07/22/2020 04:54:00 AM EST [facility] ([facility]) Name Value Range Interpretation Code Description Data Melanie rce(s) Supporting Document(s) Color, Urine RFX Laboratory test result [facility] ([facility]) Appearance, Urine RFX Laboratory test result [facility] ([facility]) PH,Urine RFX 7.0 units 5.0-9.0 [facility] Specific [place] Ur Auto RFX 1.005 1.002-1.035 [facility] ([facility]) Protein, Urine Auto RFX Laboratory test result [facility] ([facility]) Glucose, Urine (Ua) Auto RFX Laboratory test result [facility] ([facility]) Urobilinogen, Urine Auto RFX 0.2 mg/dL 0.0-2.0 [facility] ([facility]) Ketone, Urine Auto RFX Laboratory test result [facility] ([facility]) Nitrite, Urine Auto RFX Laboratory test result [facility] ([facility]) Bilirubin, Urine Auto RFX Laboratory test result [facility] ([facility]) Leukocyte Esterase Ur Auto RFX Laboratory test result [facility] ([facility]) Blood, Urine Blood RFX Laboratory test result [facility] ([facility]) WBC, Urine Auto RFX 11 /HPF 0-3 [facility] ([facility] RBC, Urine Auto RFX 1 /HPF 0-3 [facility] ([facility] Squam Epithelial Cell Ur Aurfx 0 /HPF 0-6 [facility] ([facility] Bacteria, Urine Auto RFX Laboratory test result [facility] ([facility]) Hyaline Cast, Urine Auto RFX 0 /LPF 0-1 M [facility] ([place] [facility]) Mucus, Urine RFX Laboratory test result [facility] ([facility]) ID Date Data Source [id number] 07/01/2020 06:35:00 AM [facility] 1 OrderSheet [facility] Emergency Department [address] [place] [address] Phone #: ext- [phone] 07/01/2020 06:35 Patient: FABIANO RAMIREZ Sex: F : 1955 Age: 64yWEIGHT:76.2 kg (M)ALLERGIES: Darvacet, Demerol, MicrodentinCHIEF COMPLAINT: dysuriaDIAGNOSIS: Urinary tract infectious diseaseLAB ORDERSOrder Description Priority Entered Acknowledged InitialedUrinalysis (Clean STAT 06:47 07/01/2020 06:54 Tamia Hemphill) Tamia EganNrFeya R.N.; Per protocol; Henri Medellin PhysicianCulture, Urine STAT 07:31 07/01/2020 07:35 Antionette(Urine, Clean Xavier Keenan) Physician;DIAGNOSTIC STUDY ORDERSOrder Description Priority Entered Acknowledged InitialedMEDICATION/IV/DRIP/FLUID ORDERSOrder Description Priority Entered Acknowledged InitialedGENERAL ORDERSOrder Description Priority Entered Acknowledged InitialedSplint (Aircast) R 06:49 07/01/2020 06:50 Tamia Clements RN; Starr R.NFreya Verbal order per; Xavier Robertson Physician[Electronically signed by Liset Adan (07:46 07/01/2020)][Electronically signed by Xavier Robertson Physician (08:41 07/01/2020)][Electronically locked by Liset Adan (07:46 07/01/2020)] Name Value Range Interpretation Code Description Data Melanie rce(s) Supporting Document(s) ID Date Data Source [id number] 07/01/2020 06:35:00 AM [facility] 1 Medication Reconciliation Report [facility] Emergency Department [address] [place] [address] Phone #: ext- [phone] 07/01/2020 06:35 Patient: [...] the Emergency Department: 2 Medication Reconciliation Report [facility] Emergency Department [address] [place] [address] Phone #: ext- [phone] 07/01/2020 06:35 Patient: FABIANO RAMIREZ Sex: F : 1955 Age: 64yNone.The following Medications were prescribed to the patient:ciprofloxacin 250 mg tablet Take 1 tablet twice a day for 7 days -- Dispense 14 tablet. Refills: 0.Substitution permitted.Pharmacy - [facility] - [address] ; [place] [address]. . -- Xavier Robertson Physician Name Value Range Interpretation Code Description Data [facility](s) Supporting Document(s) ID Date Data Source [id number] 07/01/2020 06:35:00 AM [facility] 1 Medication Administration Record [facility] Emergency Department [address] [place] [address] Phone #: ext- [phone] 07/01/2020 06:35 Patient: FABIANO RAMIREZ Sex: F : 1955 Age: 64yWeight: 76.2 kgHeight/Length: 59 inBMI: 34ALLERGIES: Darvacet, Demerol, MicrodentinDate/Time Medication Administered Medication Ordered Name Value Range Interpretation Code Description Data [facility](s) Supporting Document(s) ID Date Data Source [id number] 07/01/2020 06:35:00 AM [place] [address] General Instructions [facility] Emergency Department [address] [place] [address] Phone #: ext- [phone] 07/01/2020 06:35 Patient: FABIANO RAMIREZ Sex: F [...] Dispense 14 tablet. Refills: 0.Substitution permitted.Pharmacy - [facility] - [address] ; [place] [address]. .Follow-up:Follow up with your healthcare provider in four days. Call for an appointment.Understanding of the discharge instructions v erbalized by patient. ADDITIONAL INFORMATION 2 General Instructions [facility] Emergency Department [address] [place] [address] Phone #: ext- [phone] 07/01/2020 06:35 Patient: [...] or burning when urinating 3 General Instructions [facility] Emergency Department [address] [place] [address] Phone #: ext- [phone] 07/01/2020 06:35 Patient: [...] Constipation Having sex 4 General In structions [facility] Emergency Department [address] [place] [address] Phone #: ext- [phone] 07/01/2020 06:35 Patient: [...] flush out your bladder. 5 General Instructions [facility] Emergency Department [address] [place] [address] Phone #: [phone]- [phone] 07/01/2020 06:35 Patient: FABIANO RAMIREZ Sex: F [...] if the results will affect your treatment.Call [phone] if any of the following occur: Trouble [...] swelling in the outer vaginal area (labia) [phone] [place] [address]. All rights reserved. This information is not intended as asubstitute for professional medical care. Always follow your healthcare professional's instructions. You have been given the following additional information: Bladder Infection, Female (Adult) 6 General Instructions [facility] Emergency Department [address] [place] [address] Phone #: ext- [phone] 07/01/2020 06:35 Patient: FABIANO RAMIREZ Sex: F : 1955 Age: 64y(Electronically signed by Xavier Robertson, Physician 07/01/2020 08:41) Name Value Range Interpretation Code Description Data Melanie rce(s) Supporting Document(s) ID Date Data Source [id number] 07/01/2020 06:35:00 AM EST [facility] [facility] 1 Clinical Report - Nurses [facility] Emergency Department [address] [place] [address] Phone #: ext- [phone] 07/01/2020 06:35 Patient: FABIANO RAMIREZ Sex: F : 1955 Age: 64yTRIAGEArrived by EMS. Historian: patient.Triage time: 06:35 07/01/2020. Acuity: LEVEL 4.Chief Complaint: PAINFUL URINATION.Onset. (2 days). No fever.EMS Treatment DECKHAND:See EMS report.SEPSIS SCREEN: SEPSIS SCREEN NEGATIVE. No [...] Clements R.N.PROBLEMS: 2 Clinical Report - Nurses [facility] Emergency Department [address] [place] [address] Phone #: ext- [phone] 07/01/2020 06:35 [id number] Sex: F : 1955 Age: 64y Diabetes [...] 07/01/20 Xavier Robertson Physician.PHYSICAL ASSESSMENTTo room via [facility].GENERAL / NEURO / PSYCH: Alert. Oriented X 4. Appears anxious.HEENT: Mucous membranes are pink.RESPIRATORY: Respirations not labored.CVS: Capillary refill less than 2 seconds.GI / : No emesis noted. Pain with urination. She has had frequency of urination. Urgency ofurination. Patient is incontinent of urine. 3 Clinical Report - Nurses [facility] Emergency Department [address] [place] [address] Phone #: ext- [phone] 07/01/2020 06:35 Patient: [...] rce(s) Supporting Document(s) ID Date Data Source [id number] 07/01/2020 06:35:00 AM [facility] 1 Clinical Report - Physicians/Mid Levels [facility] Emergency Department [address] [place] [address] Phone #: ext- [phone] 07/01/2020 06:35 Patient: [...] Appendectomy. 2 Clinical Report - Physicians/Mid Levels [facility] Emergency Department [address] [place] [address] Phone #: ext- [phone] 07/01/2020 06:35 Patient: [...] saturation: 98%. Temp: 97.4 F.Pain level now: 8/10. Have been reviewed. Blood pressure normal. Heart [...] turgor. 3 Clinical Report - Physicians/Mid Levels [facility] Emergency Department [address] [place] [address] Phone #: ext- [phone] 07/01/2020 06:35 Patient: FABIANO RAMIREZ Sex: F [...] pain.INSTRUCTIONS 4 Clinical Report - Physicians/Mid Levels [facility] Emergency Department [address] [place] [address] Phone #: ext- [phone] 07/01/2020 06:35 Patient: [...] tablet. Refills: 0. Substitution permitted. Pharmacy - [id number] - [address] ; [place] [address]. . Follow-up: Follow up with your healthcare provider in four days. Call for an appointment. Understanding of the discharge instructions verbalized by patient.(Electronically signed by Xavier Robertson, Physician 07/01/2020 08:41) Name Value Range Interpretation Code Description [facility] Document(s) ID Date Data Source [id number] 07/01/2020 06:50:00 AM EST [facility] ([facility]) Name Value Range Interpretation Code Description Data [facility] rce(s) Supporting Document(s) Culture Urine Laboratory test result [facility] ([facility]) <content>_CULTURE URINE_</content>
<content>^$078347</content>
<content>^^834696</content>
<content>$$475741</content>
<content>^^522021</content>
<content>$$ 518697</content>
<content>$$129181</content>
<content>$$629842</content>
<content>$$ 318816</content>
<content>$$218384</content>
<content>$$811696</content>
<content> $$020706</content>
<content>$$463946</content>
<content>$$572355</conten t>
<content>$$815889</content>
<content>$$835583</content>
<content> $$526884</content>
<content>$$858824</content>
<content>$$713629</content>
<content>$$44793 0</content>
<content>$$988586</content>
<content>$$515172</content>
<content>$$898506</content>
<content>$$966912</content>
<content>$$838675</content>
<content>$$ 766719</content>
<content>$$552116</content>
<content>$$700534</content>
<content> ^^293667</content>
<content>$$847317</content>
<content>$$671462</conten t>
<content>$$060582</content>
<content></content>
<content>-- Continued on next page --</content>
<content>Patient: CANDIDO MARIO Order: [id number] Page 2</content>
<content>Culture: CULTURE URINE Status: Final</laron nt>
<content> < /content>
<content></content>
<content></content>
<content>-- Continued on next page --</content>
<content>Patient: LETTIERE FABIANO Order: [id number] Page 2</content>
<content>Culture: CULTURE URINE Status: Prelim</content>
<content> < /content>
<content></content>
<content></content>
<content>-- Continued on next page --</content>
<content>Patient: LETTIERE FABIANO Order: [id number] Page 2</content>
<content>Culture: CULTURE URINE Status: Prelim</content>
<content> < /content>
<content></content>
<content>$$497265</content>
<content>$ $734678</content>
<content></content>
<content>REPORTED DATE/TIME: 07/05/2020 11:06</content>
<content>Culture: CULTURE URINE Status: Final</content>
<content></content>
<content>Isolate 1 Escherichia coli Flag: A . . . . . . .1</content>
<content>Greater than 100,000 colony forming units per mL</content>
<content>Cefazolin <=4 ug/mL</content>
<content>Cefazolin with an YONG <=16 predicts susceptibility to the oral agents</content>
<content>cefaclor, cefdinir, cefpodoxime, cefprozil, cefuroxime, cephalexin,</content>
<content>and loracarbef when used for therapy of uncomplicated urinary tract</content>
<content> infections due to E. coli, Klebsiella pneumoniae, and Proteus</content>
<content>mirabilis.</content>
<content> Previous result entered on 07/04/2020 10:19 ET </content>
<content>Gram negative rods</content>
<content> Previous result entered on 07/03/2020 14:54 ET </content>
<content>Microbiological testing to rule out the presence of possible pathogens</content>
<content>is in progress.</content>
<content>Urine Culture,Comprehensive: P1</content>
<content>Escherichia coli Flag: A</content>
<content></content>
<content></content>
<content> Patient: CANDIDO MARIO Order: [id number] Page 3</content>
<content>Culture: CULTURE URINE Status: Final</content>
<content> < /content>
<content></content>
<content>ISOLATE 1 Escherichia coli</content>
<content></content>
<content>Isolate 1</content>
<content>Antibiotic YONG Int</content>
<content>Units ug/mL</content>
<content> < /content>
<content></content>
<content>Amoxicillin/Clavulanic Acid S S . . . . . .20-8</content>
<content>Ampicillin S S . . . . . .28-1</content>
<content>Cefepime S S . . . . . .6644-9</content>
<content>Ceftriaxone S S . . . . . .141-2</content>
<content>Cefuroxime S S . . . . . .145-3</content>
<content>Ciprofloxacin S S . . . . . .185-9</content>
<content>Ertapenem S S . . . . . .70984-7</content>
<content>Gentamicin S S . . . . . .267-5</content>
<content>Imipenem S S . . . . . .279-0</content>
<content>Levofloxacin S S . . . . . .00150-6</content>
<content>Meropenem S S . . . . . .6652-2</content>
<content>Nitrofurantoin S S . . . . . .363-2</content>
<content>Piperacillin/Tazobactam S S . . . . . .412-7</content>
<content>Tetracycline S S . . . . . .496-0</content>
<content>Tobramycin S S . . . . . .508-2</content>
<content>Trimethoprim/Sulfa S S . . . . . .516-5</content>
<content></content>
<content>P1 Test performed by: [facility] Janel HURTADO #: [id number]</content>
<content>[address]</content>
<content>[id number]</content>
<content>[place] [id number]</content>
<content>Plant Specialist : Ross Jeffers MD NPI #:</content>
<content>Embedded Processor :</content>
<content>07/03/20.1551.XMT.SENT REF</content>
<content>07/04/20.1209.XMT.SENT REF</content>
<content>07/05/20.1201.XMT.SENT REF</content>
<content></content>
<content></content> ID Date Data Source [id number] 07/01/2020 06:50:00 AM EST [facility] ([facility]) Name Value Range Interpretation Code Description Data Melanie rce(s) Supporting Document(s) Urinalysis Laboratory test result [facility] ([facility]) URINALYSIS Source Laboratory test result [facility] ([facility]) SOURCE: Clean Catch Color Laboratory test result [facility] ([facility]) SOURCE: Clean Catch Clarity Laboratory test result [facility] ([facility]) SOURCE: Clean Catch Spec [place] 1.010 1.001-1.030 [facility] ([facility]) SOURCE: Clean Catch pH 7 5-9 [facility]) SOURCE: Clean Catch Glucose Laboratory test result [facility] ([facility]) SOURCE: Clean Catch Bilirubin Laboratory test result [facility] ([facility]) SOURCE: Clean Catch Ketone Laboratory test result [facility] ([facility]) SOURCE: Clean Catch Protein Laboratory test result [facility] ([facility]) SOURCE: Clean Catch Nitrite Laboratory test result [facility] ([facility]) SOURCE: Clean Catch Blood 150 Abnormal (applies to non-numeric res ults) [facility] ([facility]) SOURCE: Clean Catch Leuk Est 500 Abnormal (applies to non-numeric res ults) [facility] ([facility]) SOURCE: Clean Catch Urobilinogen Laboratory test result MEDE NT ([facility]) SOURCE: Clean Catch Microscopic Laboratory test result [facility] SOURCE: Clean Catch WBC Laboratory test result Abnormal (applies to non -numeric results) [facility] ([facility]) SOURCE: Clean Catch RBC Laboratory test result Abnormal (applies to non -numeric results) [facility] ([facility]) SOURCE: Clean Catch Epithelial Laboratory test result Abnormal (applies to non -numeric results) [facility] ([facility]) SOURCE: Clean Catch Bacteria Laboratory test result Abnormal (applies to non -numeric results) [facility] ([facility]) SOURCE: Clean Catch ID Date Data Source [id number] 07/05/2020 12:01:00 PM [facility] Name Value Range Interpretation Code Description Data Melanie rce(s) Supporting Document(s) CULTURE URINE [facility] _CULTURE URINE_$$[id number]$$992698$$101920$$006545$$814898$$372191$$537259$$881546$$398341$$ 668502$$341704$$470817$$649708$$306541$$684140$$386612$$091698$$997140$$026512$$ 323994$$511590$$335709$$052136$$527190$$549350$$816589$$033630 -- Continued on next page --Patient: CANDIDO MARIO Order: [id number] Page 2Culture: CULTURE URINE Status: Final ==== -- Continued on next page --Patient: CANDIDO MARIO Order: [id number] Page 2Culture: CULTURE URINE Status: Prelim ===== -- Continued on next page --Patient: CANDIDO MARIO Order: [id number] Page 2Culture: CULTURE URINE Status: Prelim =====$$[id number]$$[id number] DATE/TIME: 07/05/2020 11:06Culture: CULTURE URINE Status: FinalIsolate [...] presence of possible pathogensis in progress.Urine Culture,Comprehensive: V7Izhhgwoenrf coli Flag: APatient: CANDIDO MARIO Order: [id number] Page 3Culture: CULTURE URINE Status: Final ====ISOLATE [...] S S . . . . . .19769-7Kjuvisvdtd S S . . . . . .267-5Imipenem S S . . . . . .279- 0Levofloxacin S S . . . . . .66102-8Yostmeuzu S S . . . . . .6652-2Nitrofurantoin S S . . . . . .363-2Piperacillin/Tazobactam S S . . . . . .412-7Tetracycline S S . . . . . .496-0Tobramycin S S . . . . . .508-2Trimethoprim/Sulfa S S . . . . . .516-5P1 Test performed by: Rose HURTADO #: [id number] [address] [place] [address] [id number] [place] [id number] Director : Ross Jeffers MD NPI #:Embedded Processor : 07/03/20.1551.XMT.SENT REF 07/04/20.1209.XMT.SENT REF 07/05/20.1201.XMT.SENT REF ID Date Data Source [id number] 07/01/2020 07:08:00 AM EST [facility] Name Value Range Interpretation Code Description Data Melanie rce(s) Supporting Document(s) [facility] COLOR yellow NORMAL: Yellow [facility] CLARITY clear NORMAL: Clear [facility] Specific gravity of Urine by Test strip 1.010 1.001 - 1.030 [facility] pH 7 5 - 9 [facility] al Glucose [Mass/volume] in Urine by Test strip NORM NORMAL: Negat [facility] Bilirubin.total [Presence] in Urine by Test strip NEG NORMAL: Negative [facility] Ketones [Presence] in Urine by Test strip NEG NORMAL: Negative [facility] Protein [Mass/volume] in Urine by Test strip NEG [facility]ORMAL: [facility] Nitrite [Presence] in Urine by Test strip POS NORMAL: Negative [facility] BLOOD 150 NORMAL: Negative [facility] Leukocyte esterase [Presence] in Urine by Test strip 500 KANE L: Negative [facility] Urobilinogen [Mass/volume] in Urine by Test strip NOR less deanna n 1.0 mg/dL [facility] MICROSCOPIC See Below [facility] ital WBC 5 - 7 NORMAL: NONE SEEN A [facility] Erythrocytes [#/volume] in Urine by Test strip 7 - 10 NORMAL: NON E SEEN A [facility] EPITHELIAL MODERATE NORMAL: NONE SEEN A [facility] Bacteria [Presence] in Urine sediment by Light microscopy 3+ LARGE NORMAL: NONE SEEN A [facility] ID Date Data Source [id number] 06/08/2020 02:10:00 PM EST [facility] ([facility]) Name Value Range Interpretation Code Description Data Melanie rce(s) Supporting Document(s) Erythrocytes [#/volume] in Blood by Automated count 4.16 x10*6/UL 4.2 0-6.30 [facility] ([facility]) Leukocytes [#/volume] in Blood by Automated count 5.4 x10*3/UL 4.1-10 .9 [facility] ([facility]) Hemoglobin [Mass/volume] in Blood 12.5 g/dL 12.0-18.0 [facility] ([facility]) Hematocrit [Volume Fraction] of Blood by Automated count 37.8 % 3 7.0-51.0 [facility] ([facility]) MCHC 33.0 g/dL 31.0-38.0 [facility] MCH 30.1 pg 26.0-32.0 [facility] MCV 91.0 fL 80.0-97.0 [facility]) Platelets [#/volume] in Blood by Automated count 219 x10*3/UL 140-440 [facility] Erythrocyte distribution width [Ratio] by Automated count 14.4 % 11.6-13.7 [facility] ([facility]) MPV 6.9 FL 7.8-11.0 [facility] ([facility]) Lymph % 27.9 % 10.0-58.5 [facility] ([facility] Neut % 65.6 % 37.0-92.0 [facility] Mid % 6.5 % 1.7-9.3 [facility] Neut # 3.5 x10*3/UL 2.0-7.8 [facility] ([facility]) Lymph # 1.5 x10*3/UL 0.6-4.1 [facility] ([facility]) Mid # 0.4 x10*3/UL 0.1-0.6 [facility] ([facility]) ID Date Data Source [id number] 05/04/2020 01:59:00 PM EDT [facility] ([facility]) Name Value Range Interpretation Code Description Data Melanie rce(s) Supporting Document(s) Triglyceride [Mass/volume] in Serum or Plasma 186 mg/dL 30-150 [facility] ([facility]) Cholesterol [Mass/volume] in Serum or Plasma 180 mg/dL 131-200 [facility] ([facility]) Cholesterol in HDL [Mass/volume] in Serum or Plasma 55 mg/dL 35-60 [facility] ([facility]) Cholesterol in LDL [Mass/volume] in Serum or Plasma by calcu lation 88 CALC 50-159 [facility] ([facility]) ID Date Data Source [id number] 05/04/2020 01:59:00 PM EDT [facility] ([facility]) Name Value Range Interpretation Code Description Data Melanie rce(s) Supporting Document(s) Glucose [Mass/volume] in Serum or Plasma 86 mg/dL 74-99 [facility] ([facility]) 100-125 mg/dL PRE-DIABETES/FASTING >126 mg/dL DIABETES/FASTING Urea nitrogen [Mass/volume] in Serum or Plasma 14 mg/dL 7-18 [facility] ([facility]) Creatinine 1.0 mg/dL 0.6-1.3 [facility] ([facility]) Sodium [Moles/volume] in Serum or Plasma 144 meq/L 136-145 [facility] ([facility]) Chloride [Moles/volume] in Serum or Plasma 105 meq/L 98-107 [facility] ([facility]) Potassium [Moles/volume] in Serum or Plasma 4.0 meq/L 3.5-5.1 [facility] ([facility]) Calcium [Mass/volume] in Serum or Plasma 9.9 mg/dL 8.5-10.1 [facility] ([facility]) Carbon dioxide, total [Moles/volume] in Serum or Plasma 36 meq/L 21 -32 [facility] ([facility]) Total Bilirubin 0.2 mg/dL 0.2-1.0 [facility] ([facility]) Alkaline phosphatase isoenzyme [Units/volume] in Serum or Pl asma 55 mg/dL 46-116 [facility] ([facility]) Aspartate aminotransferase [Enzymatic activity/volume] in Serum or Plasma 23 U/L 15-37 [facility] ([facility] ) Alanine aminotransferase [Enzymatic activity/volume] in Seru m or Plasma 26 U/L 12-78 [facility] Albumin [Mass/volume] in Serum or Plasma 3.7 g/dL 3.4-5.0 [facility] ([facility]) Proteinase 3 Ab [Units/volume] in Serum 7.7 g/dL 6.4-8.2 [facility] Glomerular filtration rate/1.73 sq M pre dicted among blacks [Volume Rate/Area] in Serum or Plasma by Creatinine-based formula (MDRD) Laboratory test result [facility] ([facility]) <content>CHRONIC KIDNEY DISEASE STAGING PER NKF</content>
<content></content>
<content>STAGE I & II GFR >= 60 NORMAL TO MILDLY DECREASED</content>
<content>STAGE III GFR 30-59 MODERATELY DECREASED</content>
<content>STAGE IV GFR 15-29 SEVERELY DECREASED</content>
<content>STAGE V GFR <15 VERY LITTLE GFR LEFT</content>
<content>ESRD GFR <15 ON COMMERCIAL LOAN CLOSER</content>
<content></content> A/G Ratio 0.93 CALC 1.00-1.90 [facility] ([facility]) Glomerular filtration rate/1.73 sq M pre dicted among non-blacks [Volume Rate/Area] in Serum or Plasma by Creatinine-based formula (MDRD) 56 mL/min [facility] ([facility] ID Date Data Source [id number] 05/04/2020 01:59:00 PM EDT [facility] Name Value Range Interpretation Code Description Data Melanie rce(s) Supporting Document(s) Leukocytes [#/volume] in Blood by Automated count 5.8 x10*3/UL 4.1-10 .9 [facility] ([facility] Hemoglobin [Mass/volume] in Blood 12.1 g/dL 12.0-18.0 [facility] ([facility] Erythrocytes [#/volume] in Blood by Automated count 4.06 x10*6/UL 4.2 0-6.30 [facility] ([facility] MCV 91.6 fL 80.0-97.0 [facility] ([facility]) Hematocrit [Volume Fraction] of Blood by Automated count 37.2 % 3 7.0-51.0 [facility] ([facility] MCHC 32.6 g/dL 31.0-38.0 [facility] ([facility]) MCH 29.8 pg 26.0-32.0 [facility] ([facility]) Erythrocyte distribution width [Ratio] by Automated count 14.4 % 11.6-13.7 [facility] ([facility] Platelets [#/volume] in Blood by Automated count 240 x10*3/UL 140-440 [facility] ([facility] MPV 7.1 FL 7.8-11.0 [facility] ([facility]) Lymph % 26.4 % 10.0-58.5 [facility] ([facility]) Mid % 7.1 % 1.7-9.3 [facility] ([facility]) Neut % 66.5 % 37.0-92.0 [facility] ([facility]) Neut # 3.8 x10*3/UL 2.0-7.8 [facility] ([facility]) Mid # 0.5 x10*3/UL 0.1-0.6 [facility] ([facility]) Lymph # 1.5 x10*3/UL 0.6-4.1 [facility] ([facility]) ID Date Data Source [id number] 04/23/2020 01:44:00 PM EDT [facility] Name Value Range Interpretation Code Description Data Melanie rce(s) Supporting Document(s) Lactate [Mass/volume] in Serum or Plasma 1.3 mmol/L 0.4-2.0 [facility] ([facility] Y/N query for Sepsis Lactate Rule: Y ID Date Data Source [id number] 04/01/2020 06:10:00 AM EDT [facility] Name Value Range Interpretation Code Description Data Melanie rce(s) Supporting Document(s) Appearance, Urine RFX Laboratory test result [facility] ([facility] Color, Urine RFX Laboratory test result [facility] ([facility] PH,Urine RFX 8.0 units 5.0-9.0 [facility] ([facility]) Protein, Urine Auto RFX Laboratory test result [facility] ([facility]) Specific [place] Ur Auto RFX 1.006 1.002-1.035 [facility] ([facility] Ketone, Urine Auto RFX Laboratory test result [facility] ([facility]) Glucose, Urine (Ua) Auto RFX Laboratory test result [facility] ([facility] Bilirubin, Urine Auto RFX Laboratory test result [...] Urine Auto RFX 1 /HPF 0-3 [facility] ([facility] Bacteria, Urine Auto RFX Laboratory test result [facility] ([facility]) RBC, Urine Auto RFX 2 /HPF 0-3 [facility] ([facility] Squam Epithelial Cell Ur Aurfx 1 /HPF 0-6 [facility] ([facility] Hyaline Cast, Urine Auto RFX 0 /LPF 0-1 M [facility] ([place] [facility] Amorphous Sediment RFX Laboratory test result [facility] ([facility]) ID Date Data Source [id number] 03/21/2020 08:47:00 AM EDT [facility] [address] [place] [address] PHONE: [phone] FAX: [phone] Name .................. : ABRANJOHANNGavin MARIO Acct Number.................. : [id number] ROOM. ................. : TR-06 MR Number ................... : [id number] Stay type ............. : E/R Discharge Date......... ... : 03/18/20 Admit Date ......... : 03/18/20 Admit Phys .................... : VENERUS BR Date of ....... : 1955 Family Phys ................... : JENNY NAN Phone .................. : [phone] Age ................................ : 64 Film# .................. .:[id number] Sex ................................. : F Unsigned transcriptions are preliminary reports and do not represent a medical or legal document [place] COMPLETE-[address] [place] [id number] COMPLETE:03/18/20 05:31 KJE [id number] Reason(s): Pain RIGHT FOOT X-RAY: HISTORY: Pain. [...] rce(s) Supporting Document(s) ID Date Data Source [id number] 03/21/2020 08:47:00 AM EDT [facility] [address] [place] [address] PHONE: [phone] FAX: [phone] Name .................. : CANDIDO MARIO Acct Number.................. : [id number] ROOM. ................. : [address] Number ................... : [id number] Stay type ............. : E/R Discharge Date......... ... : 03/18/20 Admit Date ......... : 03/18/20 Admit Phys .................... : VENERUS YONY Date of ....... : 1955 Family Phys ................... : JENNY NAN Phone .................. : [phone] Age ................................ : 64 Film# .................. .:[id number] Sex ................................. : F Unsigned transcriptions are preliminary reports and do not represent a medical or legal document ANKLE COMPLETE RT [id number] COMPLETE:03/18/20 05:31 KJE [id number] Reas on(s): Trauma/Injury RIGHT ANKLE X-RAY: 3-VIEWS [...] rce(s) Supporting Document(s) ID Date Data Source [id number] 03/18/2020 04:56:00 AM EDT [facility] 1 OrderSheet [facility] Emergency Department [address] [place] [address] Phone #: ext- [phone] 03/18/2020 04:56 Patient: [...] by Storm Oliva R.N. (06:03/18/2020)] 2 OrderSheet [facility] Emergency Department [address] [place] [address] Phone #: ext- [phone] 03/18/2020 04:56 Patient: FABIANO RAMIREZ Sex: F : 1955 Age: 64y[Electronically signed by Henri Medellin Physician (07:31 03/19/2020)][Electronically locked by Storm Oliva R.N. (:03/18/2020)] Name Value Range Interpretation Code Description Data Melanie rce(s) Supporting Document(s) ID Date Data Source [id number] 03/18/2020 04:56:00 AM EDT [facility] 1 Medication Reconciliation Report [facility] Emergency Department [address] [place] [address] Phone #: ext- [phone] 03/18/2020 04:56 Patient: [...] the Emergency Department: 2 Medication Reconciliation Report [facility] Emergency Department [address] [place] [address] Phone #: ext- [phone] 03/18/2020 04:56 Patient: FABIANO RAMIREZ Sex: F : 1955 Age: 64yNone.The following Medications were prescribed to the patient:None. Name Value Range Interpretation Code Description Data Melanie rce(s) Supporting Document(s) ID Date Data Source [id number] 03/18/2020 04:56:00 AM EDT [facility] 1 Medication Administration Record [facility] Emergency Department [address] [place] [address] Phone #: ext- [phone] 03/18/2020 04:56 Patient: FABIANO RAMIREZ Sex: F : 1955 Age: 64yWeight: 73.0 kgHeight/Length: 59 inBMI: 32.5ALLERGIES: Darvacet, Demerol, MicrodentinDate/Time Medication Administered Medication Ordered Name Value Range Interpretation Code Description Data Melanie rce(s) Supporting Document(s) ID Date Data Source [id number] 03/18/2020 04:56:00 AM EDT [facility] 1 General Instructions [facility] Emergency Department [address] [place] [address] Phone #: ext- [phone] 03/18/2020 04:56 Patient: [...] minimize impact from footfalls.).Follow-up:Follow up with a check examiner as needed. Call for the next available [...] minutes at a time. 2 General Instructions [facility] Emergency Department [address] [place] [address] Phone #: ext- [phone] 03/18/2020 04:56 Patient: [...] joint or bear weight on the joint [phone] [place] [address], [place] [address]. All rights reserved. This information is not intended as asubstitute for professional medical care. Always follow your healthcare professional's instructions.Arthralgia 3 General Instructions [facility] Emergency Department [address] [place] [address] Phone #: ext- [phone] 03/18/2020 04:56 Patient: [...] provider or as advised. 4 General Instructions [facility] Emergency Department [address] [place] [address] Phone #: ext- [phone] 03/18/2020 04:56 Patient: [...] or as directed by your healthcare provider [phone] [employer] [address] [place] [address], [place] [address]. All rights reserved. This information is not [...] bladder (cystitis), or the 5 General Instructions [facility] Emergency Department [address] [place] [address] Phone #: ext- [phone] 03/18/2020 04:56 Patient: [...] usually happens because of: 6 General Instructions [facility] Emergency Department [address] [place] [address] Phone #: ext- [phone] 03/18/2020 04:56 Patient: [...] to back after using 7 General Instructions [facility] Emergency Department [address] [place] [address] Phone #: ext- [phone] 03/18/2020 04:56 Patient: [...] if the results will affect your treatment.Call [phone] if any of the following occur: Trouble [...] to keep medicine down 8 General Instructions [facility] Emergency Department [address] [place] [address] Phone #: ext- [phone] 03/18/2020 04:56 Patient: FABIANO RAMIREZ Sex: F : 1955 Age: 64y Weakness or dizziness Vaginal discharge Pain, redness, or swelling in the outer vaginal area (labia) [phone] [place] [address]. All rights reserved. This information is not [...] function and reduce pain. 9 General Instructions [facility] Emergency Department [address] [place] [address] Phone #: ext- [phone] 03/18/2020 04:56 Patient: [...] joint or bear weight on the joint [phone] [employer] [address] [place] [address]. All rights reserved. This information is not intended as asubstitute for professional medical care. Always follow your healthcare professional's instructions. You have been given the following additional information: Osteoarthritis Arthralgia Bladder Infection, Female (Adult) Osteoarthritis You may walk and bear weight as tolerated.(Electronically signed by Henri Medellin, Physician 03/19/2020 07:31) Name Value Range Interpretation Code Description Data Melanie rce(s) Supporting Document(s) ID Date Data Source [id number] 03/18/2020 04:56:00 AM EDT [facility] 1 Clinical Report - Nurses [facility] Emergency Department [address] [place] [address] Phone #: ext- [phone] 03/18/2020 04:56 Patient: [...] notification of patient arrival was received.EMS Treatment DECKHAND:See EMS report.SEPSIS SCREEN: SIRS Screen negative. Sepsis Screen negative. No suspected or confirmed signs ofinfection present.THA COMA SCORE: 15- eyes open- spo ntaneous [...] Oliva R.N. 2 Clinical Report - Nurses [facility] Emergency Department [address] [place] [address] Phone #: ext- [phone] 03/18/2020 04:56 Patient: FABIANO RAMIREZ Sex: F : 1955 Age: 64yAllergiesDarvacet.Demerol.Microdentin. --05:03/18/20 Storm Oliva R.N.PROBLEMS:Diabetes Mellitus Type 2.Fall.Contusion.Ankle Injury.Cervical Strain.Sprain.UTI - Urinary Tract Infection.Spinal Tumor.Hypoglycemia.Incontin ence. --05:03/18/20 Storm Oliva R.N.HistoryPAST MEDICAL HX: Tetanus status: [...] weakness and 3 Clinical Report - Nurses [facility] Emergency Department [address] [place] [address] Phone #: ext- [phone] 03/18/2020 04:56 Patient: [...] have advanced directive. --05:03/18/20 Storm Oliva R.N.PHYSICAL ZAEROOTGJR80:03/18/20. To room via stretcher.GENERAL / NEURO / [...] verbalized understanding. Written instructions p rovided in Gabonese. The patient was discharged by the physician. [...] Oliva R.N. 4 Clinical Report - Nurses [facility] Emergency Department [address] [place] [address] Phone #: ext- [phone] 03/18/2020 04:56 Patient: FABIANO RAMIREZ Sex: F : 1955 Age: 64yLocked/Released at 03/18/2020 06:29 by Storm Oliva R.N. Name Value Range Interpretation Code Description Data Melanie rce(s) Supporting Document(s) ID Date Data Source [id number] 03/18/2020 04:56:00 AM EDT [facility] 1 Clinical Report - Physicians/Mid Levels [facility] Emergency Department [address] [place] [address] Phone #: ext- [phone] 03/18/2020 04:56 Patient: [...] injury 2 Clinical Report - Physicians/Mid Levels [facility] Emergency Department [address] [place] [address] Phone #: ext- [phone] 03/18/2020 04:56 Patient: FABIANO RAMIREZ Sex: F [...] process. Uric Acid: (OLE: 03/18/2020 05:40) ( [facility] 03/18/2020 06:10) Final results Test Result Flag Units (Reference) URIC ACID 6.4 MG/DL (2.5 - 8.5) Sed. Rate: (OLE: 03/18/2020 05:40) ( [facility] 03/18/[place] 06:05) Final results Test Result Flag Units (Reference) SED RATE 46 H mm/hr (0 - 30) SED RATE REENTER 46 CRP: (OLE: 03/18/2020 05:40) ( [facility] 03/18/2020 06:10) Final results Test Result Flag [...] Oxygen?(No) Room: ED Exam ANKLE COMPLETE RT [facility] [address] [place] [address] PHONE: [phone] FAX: [phone] Name .................. : CANDIDO MARIO Acct Number.................. : [id number] ROOM. ................. : TR-06 MR Number ................... : [id number] Stay type ............. : E/R Discharge Date......... ... : 03/18/20 Admit Date ......... : 03/18/20 Admit Phys .................... : TAMAR BHAKTA Date of ....... : 1955 Family Phys ................... : JENNY GARCIA Phone .................. : [phone] Age ................................ : 64 Film# .................. .:[id number] Sex ................................. : F Unsigned transcriptions are preliminary reports and do not represent a medical or legal document ANKLE COMPLETE RT [id number] COMPLETE:03/18/20 05:31 KJE [id number] Reason(s): Trauma/Injury 3 Clinical Report - Physicians/Mid Levels [facility] Emergency Department [address] [place] [address] Phone #: ext- [phone] 03/18/2020 04:56 Patient: FABIANO RAMIREZ Sex: F [...] Exam FOOT COMPLETE-3 OR MORE VW RT [address] [place] [address] PHONE: [phone] FAX: [phone] Name .............. .... : CANDIDO MARIO Acct Number.................. : [id number] ROOM. ................. : TR-06 MR Number ................... : [id number] Stay type ............. : E/R Discharge Date......... ... : 03/18/20 Admit Date ......... : 03/18/20 Admit Phys .................... : TAMAR BHAKTA Date of ....... : 1955 Family Phys ................... : [employer] Phone .................. : [phone] Age ................................ : 64 Film# .................. .:[id number] Sex ................................. : F Unsigned transcriptions are preliminary reports and do not represent a medical or legal document [place] COM[place]TE-[address] [place] [id number] COMPLETE:03/18/20 05:31 KJE [id number] Reason(s): Pain Trauma/Injury 4 Clinical Report - Physicians/Mid Levels [facility] Emergency Department [address] [place] [address] Phone #: ext- [phone] 03/18/2020 04:56 Patient: FABIANO RAMIREZ Sex: F [...] P. aeruginosa UTI from cx done at [facility] ED visit 2 weeks ago. She is [...] obstruction. 5 Clinical Report - Physicians/Mid Levels [facility] Emergency Department [address] [place] [address] Phone #: ext- [phone] 03/18/2020 04:56 Patient: [...] from footfalls.). Follow-up: Follow up with a check examiner as needed. Call for the next available appointment. Reason for referral: evaluation, treatment and R foot / ankle pain. Understanding of the discharge instructions verbalized by patient.(Electronically signed by Henri Medellin, Physician 03/19/2020 07:31) Name Value Range Interpretation Code Description Data Melanie rce(s) Supporting Document(s) ID Date Data Source [id number] 03/18/2020 05:40:00 AM EDT [facility] ([facility]) Name Value Range Interpretation Code Description Data Melanie rce(s) Supporting Document(s) Urate [Mass/volume] in Serum or Plasma 6.4 mg/dL 2.5-8.5 [facility] ([facility]) C reactive protein [Mass/volume] in Serum or Plasma by High sensitivity method 6.67 mg/L 1.00-3.00 [facility] ([facility] ) <content>CDC/S HS-CRP CUT-OFF: RELATIVE RISK:</content>
<content><1.0 mg/L Low</content>
<content>1.0 - 3.0 mg/L Average</laron nt>
<content>>3.0 mg/L High</content>
<content>Optimally, the average of HS-CRP results repeated</content>
<content>two weeks apart should be used for risk assessment.</content>
<content></content> ID Date Data Source [id number] 03/18/2020 05:40:00 AM EDT [facility] ([facility]) Name Value Range Interpretation Code Description Data Melanie rce(s) Supporting Document(s) Sed Rate 46 mm/hr 0-30 [facility] ([facility]) Sed Rate Reenter 46 [facility] ([facility]) ID Date Data Source [id number] 03/18/2020 06:10:00 AM EDT [facility] Name Value Range Interpretation Code Description Data Melanie rce(s) Supporting Document(s) C reactive protein [Mass/volume] in Serum or Plasma by High sensitivity method 6.67 MG/L 1.00 - 3.00 H [facility] CDC/S HS-CRP CUT-OFF: RELATIVE RISK: <1.0 mg/L Low 1.0 - 3.0 mg/L Average >3.0 mg/L High Optimally, the average of HS-CRP results repeated two weeks apart should be used for risk assessment. ID Date Data Source [id number] 03/18/2020 06:10:00 AM EDT [facility] Name Value Range Interpretation Code Description Data Melanie rce(s) Supporting Document(s) Urate [Mass/volume] in Serum or Plasma 6.4 MG/DL 2.5 - 8.5 [facility] ID Date Data Source [id number] 03/18/2020 06:05:00 AM EDT [facility] Name Value Range Interpretation Code Description Data Melanie rce(s) Supporting Document(s) Erythrocyte sedimentation rate by Westergren method 46 mm/hr 0 - 30 H [facility] SED RATE REENTER 46 [facility] ID Date Data Source [id number] 03/02/2020 12:27:00 PM EDT [facility] 1 OrderSheet [facility] Emergency Department [address] [place] [address] Phone #: ext- [phone] 03/02/2020 12:19 Patient: FABIANO RAMIREZ Sex: F : 1955 Age: 64yWEIGHT:73.4 kg HEIGHT:59 inches BMI:32.7ALLERGIES: Guillevacet, Demerol, MicrodentinCHIEF COMPLAINT: Rt, ankleDIAGNOSIS: Sprain of joint, Urinary tract infectious diseaseLAB ORDERSOrder Description Priority Entered Acknowledged InitialedUrinalysis (Clean STAT 12:49 03/02/2020 12:51 TerryCatch) Anita Wang RN PA;DIAGNOSTIC STUDY ORDERSOrder Description Priority Entered Acknowledged InitialedAnkle Complete STAT 12:49 03/02/2020 12:51 Salomonight Anita Wang RN(Oxygen?(No)) PA; Reason for Study: rolled [...] rce(s) Supporting Document(s) ID Date Data Source [id number] 03/02/2020 12:27:00 PM EDT [facility] 1 Medication Reconciliation Report [facility] Emergency Department [address] [place] [address] Phone #: ext- [phone] 03/02/2020 12:19 Patient: [...] the Emergency Department: 2 Medication Reconciliation Report [facility] Emergency Department [address] [place] [address] Phone #: ext- [phone] 03/02/2020 12:19 Patient: FABIANO RAMIREZ Sex: F : 1955 Age: 64yNone.The following Medications were prescribed to the patient:Cipro 500 mg tablet Take 1 tablet twice a day -- Dispense 10 tablet. Refills: 0. Substitution permitted.[facility] - [address] [facility] ; [place] [address]. .Bactrim 400 mg-80 mg tablet Take 1 tablet twice a day -- Dispense 10 tablet. Refills: 0. Substitutionpermitted.[facility] - [address] [facility] ; [place] [address]. . -- EMRE Puga Name Value Range Interpretation Code Description Data [facility] rce(s) Supporting Document(s) ID Date Data Source [id number] 03/02/2020 12:27:00 PM EDT [place] [address] Medication Administration Record [facility] Emergency Department [address] [place] [address] Phone #: ext- [phone] 03/02/2020 12:19 Patient: FABIANO RAMIREZ Sex: F : 1955 Age: 64yWeight: 73.4 kgHeight/Length: 59 inBMI: 32.7ALLERGIES: Microdentin, Darvacet, DemerolDate/Time Medication Administered Medication Ordered Name Value Range Interpretation Code Description Data [facility] Document(s) ID Date Data Source [id number] 03/02/2020 12:27:00 PM EDT [facility] 1 General Instructions [facility] Emergency Department [address] [place] [address] Phone #: ext- [phone] 03/02/2020 12:19 Patient: FABIANO RAMIREZ Sex: F [...] if you would benefit from an orthopedic consult.).Ceasar collins: GENERAL WARNINGS: Return or contact your physician [...] -- Dispense 10 tablet. Refills: 0. Substitution permitted.[facility] [address] [place] [address]. Phone: .Bactrim 400 mg-80 mg tablet Take 1 tablet twice a day -- Dispense 10 tablet. Refills: 0. Substitutionpermitted.[facility] - [address] [place] [address]. Phone: [phone] General Instructions [facility] Emergency Department [address] [place] [address] Phone #: ext- [phone] 03/02/2020 12:19 Patient: FABIANO RAMIREZ Sex: F : 1955 Age: [id number] .Understanding of the discharge instructions verbalized by [...] several months to recover. 3 General Instructions [facility] Emergency Department [address] [place] [address] Phone #: ext- [phone] 03/02/2020 12:19 Patient: FABIANO RAMIREZ Sex: F [...] thin towel or cloth. You may use [id number] pain medicine (NSAIDS or nonsteroidal anti-inflammatory drugs) [...] helpful in preventing long-term 4 General Instructions [facility] Emergency Department [address] [place] [address] Phone #: ext- [phone] 03/02/2020 12:19 Patient: [...] skin is discolored (looks blue, purple, or reyna), has blisters, or is irritated You re-injure your ankle 5 General Instructions [facility] Emergency Department [address] [place] [address] Phone #: ext- [phone] 03/02/2020 12:19 ------- Patient: FABIANO RAMIREZ Sex: F : 1955 Age: 64y [id number] [place] [address]. All rights reserved. This information is not [...] more often than usual 6 General Instructions [facility] Emergency Department [address] [place] [address] Phone #: ext- [phone] 03/02/2020 12:19 Patient: [...] a diaphragm for control 7 General Instructions [facility] Emergency Department [address] [place] [address] Phone #: ext- [phone] 03/02/2020 12:19 Patient: [...] treatment. This is especially 8 General Instructions [facility] Emergency Department [address] [place] [address] Phone #: ext- [phone] 03/02/2020 12:19 Patient: [...] swelling in the outer vaginal area (labia) [phone] [place] [address]. All rights reserved. This information is not intended as asubstitute for professional medical care. Always follow your healthcare professional's instructions. You have been given the following additional information: Ankle Sprain (Adult) Bladder Infection, Female (Adult) 9 General Instructions [facility] Emergency Department [address] [place] [address] Phone #: ext- [phone] 03/02/2020 12:19 Patient: FABIANO RAMIREZ Sex: F : 1955 Age: 64y(Electronically signed by EMRE Puga 03/02/2020 22:55) Name Value Range Interpretation Code Description Data Melanie rce(s) Supporting Document(s) ID Date Data Source [id number] 03/02/2020 12:27:00 PM EDT [facility] 1 Clinical Report - Nurses [facility] Emergency Department [address] [place] [address] Phone #: ext- [phone] 03/02/2020 12:19 Patient: FABIANO RAMIREZ Sex: F : 1955 Age: 64yTRIAGEArrived by EMS. Historian: patient. ( per pt she rolled ankle this am. pt put herself in a soft cast andwalking boot.).Triage time: 12:21 03/02/2020. Acuity: LEVEL 4.Chief Complaint: RIGHT LOWER EXTREMITY PAIN.Alert.This started just prior to arrival.Treatment DECKHAND:None. --12:03/02/20 Kelly Mahmood R.N.12:03/02/20. BP: 150/84. HR: 97. RR: 16. O2 saturation: 95%. Temp: 99.0 F. Pain level now 04/29.--12:03/02/20 Kelly Mahmood R.N.Weight: 73.4 kg. Height/Length: 59 inches. BMI: 32.7. --12:03/02/20 Kelly Mahmood R.N.MedicationsPromethazine HCl Oral (Tablet 25 mg), as needed. --12:24 03/02/20 Kelly Mahmood R.N. HYDROcodone-Acetaminophen Oral (Solution 7.5-325 mg/15mL), as needed. --12:24 03/02/20MinhttKelly nguyễn R.N. KlonoPIN Oral 0.25 mg, at bedtime. [...] testing but 2 Clinical Report - Nurses [facility] Emergency Department [address] [place] [address] Phone #: ext- [phone] 03/02/2020 12:19 Patient: [...] treatment room. --12:28 03/02/20 Kelly Mahmood R.N.PHYSICAL NPUMLYNALT25:44 03/02/20. Ambulatory to room.GENERAL / NEURO / [...] labeled in the presence of the patient (5149). Two patient identifiers checked. Call light placed in reach. Side rails up x 2. Bed placed in lowest position. Brakes of bed on. Patient ready for evaluation- PA notified. --12:45 03/02/20 Ac Wang RN 12:52 03/02/20. Patient transported to radiology by wheelchair with electrical service technician. ([id number]). --12:57 03/02/20 Ac Wang RN 13:01 03/02/20. BP: 93/42. MAP: 59. HR: 91. RR: 24. O2 saturation: 100%. --13:01 03/02/20 Formerly named [facility] Tech, [facility] Tech1 3 Clinical Report - Nurses [facility] Emergency Department [address] [place] [address] Phone #: ext- [phone] 03/02/2020 12:19 Patient: FABIANO RAMIREZ Sex: F : 1955 Age: 64y Patient returned from radiology by wheelchair with electrical service technician. ([id number]). --13: 08 03/02/20 Ac Wang RN ( 1330 pt moved to hallway 3 to open rm 7 for ambulance). --13:58 03/02/20 Ac Wang RN ( 1345 pt fitted with new air cast and cast shoe). --16:00 03/02/20 Ac Wang RN.DISPOSITION / DISCHARGE 14:08 03/02/20. BP: 124/76. MAP: 92. HR: 75. RR: 16. O2 saturation: 99%. Temp: 98.1 F. --14:08 03/02/[address] [facility], Kelly, Tech1 Departure time: 14:30 03/02/2020. --15:35 03/02/20 Concha Kohli RN Departure time: 14:30 03/02/2020. Condition at departure: unchanged. No learning barriers present. Discharge instructions provided and reviewed with the patient. Reviewed medication(s) side effects, precautions, dosing and course information. Prescription(s) sent electronically to pharmacy. Reviewed splint care instructions. Reviewed referrals. Provided to follow-up provider. Patient verbalized understanding. Written instructions provided in Gabonese. The patient was discharged by the physician tiler's assistant. She was discharged home. She left in a wheelchair and via taxi. --15:57 03/02/20 Ac Wang RN 14:30 03/02/20. Pain level now: 2/10. --15:58 03/02/20 Ac Wang RN.Locked/Released at 03/02/2020 16:00 by Ac Wang RN Name Value Range Interpretation Code Description Data Melanie rce(s) Supporting Document(s) ID Date Data Source [id number] 03/02/2020 12:27:00 PM EDT [facility] 1 Clinical Report - Physicians/Mid Levels [facility] Emergency Department [address] [place] [address] Phone #: ext- [phone] 03/02/2020 12:19 Patient: FABIANO RAMIREZ Sex: F [...] needed.Allergies:Darvacet.Demerol. 2 Clinical Report - Physicians/Mid Levels [facility] Emergency Department [address] [place] [address] Phone #: ext- [phone] 03/02/2020 12:19 Patient: [...] and ankle exam otherwise negative. Extremities otherwise negative.[place] ANKLE RULES: The need for X-rays is [...] 1.030 3 Clinical Report - Physicians/Mid Levels [facility] Emergency Department [address] [place] [address] Phone #: ext- [phone] 03/02/2020 12:19 --- Patient: FABIANO RAMIREZ Sex: [...] Ankle Complete Right: (OLE: 03/02/2020 12:49) ( [facility]02/[facility] 15:57) In Progress ANKLE COMPLETE RT Reason(s): rolled ankle this AM now c/o lateral ankle pain TRANSPORTATION: S IV? O2? Oxygen?(No) Room: ED Foot Complete Right: (OLE: 03/02/2020 12:49) ( [facility] 03/02/2020 15:57) In Progress FOOT COMPLETE-3 OR [...] (chronic). 4 Clinical Report - Physicians/Mid Levels [facility] Emergency Department [address] [place], [place] [id number] Phone #: ext- [phone] 03/02/2020 12:19 Patient: [...] tablet. Refills: 0. Substitution permitted. Pharmacy - [id number] - [address] ; [place] [address]. . Bactrim 400 mg-80 mg tablet Take 1 tablet twice a day -- Dispense 10 tablet. Refills: 0. Substitution permitted. Pharmacy - [id number] - [address] ; [place] [address]. . Understanding of the discharge instructions verbalized by patient. 5 Clinical Report - Physicians/Mid Levels [facility] Emergency Department [address] [place] [address] Phone #: ext- [phone] 03/02/2020 12:19 Patient: FABIANO RAMIREZ Sex: F : 1955 Age: 64y(Electronically signed by EMRE Puga 03/02/2020 22:55) Name Value Range Interpretation Code Description [facility] Supporting Document(s) ID Date Data Source [id number] 03/02/2020 12:27:00 PM EDT [facility] Addenda for FABIANO RAMIREZ VisitID: [id number] Date: 11:50Pt urine grew pseudomonas aeruginosea; Pt was d/c on Cipro 500mg PO BID, and Bactrim PO [id number]; Cipro is resistent and bactrim not tested. Attempted to call pt multiple times on 03/05/20 but said"busy", left voicemail for emergency contact who did not call back. Called again today at 1004 and ptanswered, per MD medellin yesterday pt is supposed to reculture urine [...] rce(s) Supporting Document(s) ID Date Data Source [id number] 03/06/2020 09:28:00 AM EDT [facility] [address] [place] [address] PHONE: [phone] FAX: [phone] Name .................. : CANDIDO MARIO Acct Number.................. : [id number] ROOM. ................. : TR-07 Number ................... : [id number] Stay type ............. : E/R Discharge Date......... ... : 03/02/20 Admit Date ......... : 03/02/20 Admit Phys .................... : AMERNATH L Date of ....... : 1955 Family Phys ................... : NON STAFF Phone .................. : [phone] Age ................................ : 64 Film# .................. .:[id number] Sex ................................. : F Unsigned transcriptions are preliminary reports and do not represent a medical or legal document [place] RT [id number] COMPLETE:03/02/20 15:57 MICHAEL [id number] Reason(s): rolled ankle this AM now c/o [...] By Jasen Bolton MD , 03/06/20 09:28, [facility] Transcribe Initials: DZ , Transcribe Date: 03/03/20 06:07, Dictation Date: Copy for: MAYE CHANG via fax Copy for: EMERGENCY DEPT via modem Copy for: 710 MED REC DISCHARGED Page 1 of 1 Name Value Range Interpretation Code Description Data Melanie rce(s) Supporting Document(s) ID Date Data Source [id number] 03/06/2020 09:28:00 [place] [address] PHONE: [phone] FAX: [phone] Name .................. : CANDIDO MARIO Acct Number.................. : [id number] ROOM. ................. : TR-07 Number ................... : [id number] Stay type ............. : E/R Discharge Date......... ... : 03/02/20 Admit Date ......... : 03/02/20 Admit Phys .................... : PRESLEY Cox Date of ....... : 1955 Family Phys ................... : NON STAFF Phone .................. : [phone] Age ................................ : 64 Film# .................. .:[id number] Sex ................................. : F Unsigned transcriptions are preliminary reports and do not represent a medical or legal document FOOT COMPLETE-[address] [place] [id number] COMPLETE:03/02/20 15:57 MICHAEL [id number] Reason(s): lateral foot pain after rolling ankle this AM RIGHT FOOT X-RAY: HISTORY: Trauma. FINDINGS: There is prominent inferior calcaneal spurring. A bony density adjacent to the dorsal aspects of the talonavicular joint suggests an old fracture. No acute fractures are seen. The articular surfaces are intact. IMPRESSION: Inferior calcaneal spurring. Electronically Reviewed and Signed By Jasen Bolton MD , 03/06/20 09:28, [facility] Transcribe Initials: DZ , Transcribe Date: 03/03/20 06:06, Dictation Date: Copy for: MAYE CHANG via fax Copy for: EMERGENCY DEPT via modem Copy for: 710 MED REC DISCHARGED Page 1 of 1 Name Value Range Interpretation Code Description Data Melanie rce(s) Supporting Document(s) Procedure Social History No Information Vital Signs ID Date Data Source UNK Name Value Range Interpretation Code Description Data Source(s) Systolic blood pressure 134 mm[Hg] 134 mm[Hg] [facility] Diastolic blood pressure 84 mm[Hg] 84 mm[Hg] [facility] ([facility]) Heart rate 87 /min 87 /min [facility] ([facility]) Oxygen saturation in Arterial blood by Pulse oximetry 93 % 93 % [facility] ([facility]) Body temperature 97.0 [degF] 97.0 [degF] [facility] ([facility]) Body height 59 [in_i] 59 [in_i] [facility] ([facility]) 4'11" Body weight 152.00 [lb_av] 152.00 [lb_av] [facility] ([facility]) Body mass index (BMI) [Ratio] 30.7 kg/m2 30.7 k g/m2 [facility] ([facility]) [place] body weight 100 [lb_av] 100 [lb_av] [facility] ([facility]) Body weight 68.947 kg 68.947 kg [facility] ([facility]) Body surface area Derived from formula 1.64 m2 1.64 m2 [facility] ([facility]) Systolic blood pressure 122 mm[Hg] 122 mm[Hg] [facility] Diastolic blood pressure 80 mm[Hg] 80 mm[Hg] [facility] ([facility]) Heart rate 102 /min 102 /min [facility] ([facility]) Body height 59 [in_i] 59 [in_i] [facility] 4'" Body weight 157.00 [lb_av] 157.00 [lb_av] [facility] ([facility]) Oxygen saturation in Arterial blood by Pulse oximetry 97 % 97 % [facility] Body mass index (BMI) [Ratio] 31.7 kg/m2 31.7 k g/m2 [facility] ([facility]) Body mass index (BMI) [Ratio] 31.5 kg/m2 31.5 k g/m2 [facility]) Heart rate 94 /min 94 /min [facility]) Body height 59 [in_i] 59 [in_i] [facility]) 4'11" Body weight 156.00 [lb_av] 156.00 [lb_av] [facility] ([facility]) Oxygen saturation in Arterial blood by Pulse oximetry 96 % 96 % [facility] ([facility]) Systolic blood pressure 116 mm[Hg] 116 mm[Hg] M [facility] Body mass index (BMI) [Ratio] 31.3 kg/m2 31.3 k g/m2 [facility]) Diastolic blood pressure 72 mm[Hg] 72 mm[Hg] [facility] ([facility]) Heart rate 94 /min 94 /min [facility] ([facility]) Body height 59 [in_i] 59 [in_i] [facility] ([facility]) 4'11" Body weight 155.00 [lb_av] 155.00 [lb_av] NIXON Daniels ([facility]) Oxygen saturation in Arterial blood by Pulse oximetry 96 % 96 % [facility] ([facility])
[2021-05-06] MEDS ORDERED: CIPR-249 PO (09:47)
[2021-05-06 10:05] VITALS: BP 120/71
[2021-05-06] MEDS ORDERED: CIPROFLOXACIN 500MG TABLET PO ONE (10:05)
== END 2021-05-06 10:19 | disposition home or self-care (01) ==
LOC: M ED 07:36 → EDBD 07:36 → M ED 10:19
DX: N39.0 Urinary tract infection, site not specified (principal); M21.611 Bunion of right foot; J45.909 Unspecified asthma, uncomplicated; Z87.440 Personal history of urinary (tract) infections; Z86.718 Personal history of other venous thrombosis and embolism; N31.9 Neuromuscular dysfunction of bladder, unspecified; Z79.01 Long term (current) use of a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; Z79.899 Other long term (current) drug therapy; Z88.0 Allergy status to penicillin; Z88.8 Allergy status to other drugs, medicaments and biological substances; Z91.040 Latex allergy status

== ENCOUNTER 2021-05-19 06:10 | Emergency (ER) | payer MEDICARE, MEDICAID ==
[~2021-05-19] VITALS: Ht 149.9 cm; Wt 65.9 kg
[2021-05-19 06:11] VITALS: BP 142/84
--- OUTSIDE RECORDS SUMMARY | 2021-05-19 06:21 | CCD ---
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 Name Role Phone MARK, F XAVIER DO [...] XAVIER DO Unavailable Unavailable [facility] Lab, [facility] [place] Unavailable Unavailable Serge Echeverria MD Unavailable Unavailable [...] Unavailable JENNY, J Daisy ANP Unavailable Unavailable EJNNY, J Daisy ANP Unavailable Unavailable JENNY, J [...] Unavailable JENNY, J Daisy ANP Unavailable Unavailable JENYN, J Daisy ANP Unavailable Unavailable JENNY, J [...] Unavailable JENNY, J Daisy ANP Unavailable Unavailable Chandrakant SAUCEDO MD Unavailable Unavailable Chandrakant SAUCEDO MD Unavailable Unavailable Chandrakant SAUCEDO MD Unavailable Unavailable Chandrakant SAUCEDO MD Unavailable Unavailable Chandrakant SAUCEDO MD Unavailable Unavailable Chandrakant SAUCEDO MD Unavailable Unavailable Chandrakant SAUCEDO MD Unavailable Unavailable Chandrakant SAUCEDO MD Unavailable Unavailable Chandrakant SAUCEDO MD Unavailable Unavailable Chandrakant SAUCEDO MD Unavailable Unavailable Chandrakant SAUCEDO MD Unavailable Unavailable Re-disclosure Warning The records that [...] is protected by Article 27-F of the [facility] Public Health law. If you continue you may have access to information: Regarding HIV / AIDS; Provided by facilities licensed or operated by the [facility] Office of Mental Health; or Provided by the [facility] Office for People With Developmental Disabilities. If such information is present, then the following [facility] mandated warning applies: This information has been [...] law may result in a fine or assisted sentence or both. A general authorization for the release of medical or other information is NOT sufficient authorization for further disc losure. Family History Family Member Name Family Member Gender Family Member Status Date o f Status Description Data Source(s) Unknown Male Problem [facility] ([facility] () Unknown Female Problem [facility] Unknown Female Problem [facility] ([facility]) Unknown Female Problem [facility] ([facility]) Encounters Encounter Providers Location Date Indications Data Source(s ) Emergency Attender: Serge Echeverria MDConsultant: Daisy CHENEY 03/04/2021 11:38:00 AM EDT - 03/04/2021 02:32:00 PM EDT [facility] Patient discharged. Emergency Attender: Serge Echeverria MDConsultant: Daisy RODRIGUEZ ANP 02/17/2021 07:58:00 AM EDT - 02/17/2021 10:25:00 AM EDT [facility] Patient discharged. Emergency Attender: XAVIER ROBERTSON DOConsultant: Daisy CHENEY 12/10/2020 05:37:00 AM EDT - 12/10/2020 07:15:00 AM EDT [facility] Patient discharged. Emergency Attender: KAREN SAUCEDO MDConsultant: Susan RODRIGUEZ ANP 12/01/2020 12:20:00 PM EDT - 12/01/2020 04:50:00 PM EDT [facility] Patient discharged. Outpatient Attender: [facility] 10/14/2020 12:0 4:00 AM EDT [facility] Emergency Attender: KAREN SAUCEDO MDConsultant: Susan RODRIGUEZ ANP 10/13/2020 11:01:00 PM EDT - 10/14/2020 04:24:00 AM EDT [facility] Patient discharged. Outpatient Attender: Daisy Craig 05/2021 01:40:00 PM EST [facility] ([facility] ) Emergency Attender: HENRI BOYLE MDConsultant: Daisy CHENEY 07/01/2020 06:35:00 AM EST - 07/01/2020 07:46:00 AM EST [facility] Patient discharged. Outpatient Attender: Daisy Craig 01:45:00 PM EST [facility] ([facility] ) Outpatient Attender: Daisy Craig 02:45:00 PM EDT [facility] ([facility] ) Emergency Attender: HENRI BOYLE MDConsultant: Daisy TREVINO ANP 03/18/2020 04:56:00 AM EDT - 03/18/2020 06:29:00 AM EDT [facility] Patient discharged. Immunizations Vaccine Date Status Description Data Source(s) COVID-19 VACCINE [facility] 04/11/2021 12:00:00 AM EDT completed [facility] Vaccine Series Complete: YESThis Data wa s Submitted to [facility]. COVID-19 VACCINE [facility] 03/21/2021 12:00:00 AM EDT [facility] Complete: NOThis Data was Submitted to [facility] [employer]. Influenza, injectable, MDCK, preservative free, stefania valent 05/01/2020 02:55:00 PM EDT completed [facility] Medications Medication Brand Name Start Date Product Form Dose Route Admi nistrative Instructions Pharmacy Instructions Status Indications Reaction Description Data Source(s) 30 mg 05/13/2021 12:00:00 AM EDT tablet 60 TAKE ONE TABLET BY MOUTH TWICE A DAY TAKE ONE TABLET BY MOUTH TWICE A DAY SOLD: 05/15/2021 [facility] Cyclobenzaprine hydrochloride 10 MG Oral Tablet CYCLOBENZAPR INE HCL 05/10/2021 12:00:00 AM EDT tablet 60 TAKE ONE TABLET BY MOUTH TWICE A DAY NEEDED TAKE ONE TABLET BY MOUTH TWICE A DAY NEEDED SOLD: 05/15/2021 [facility] 0.5 mg 05/09/2021 12:00:00 AM EDT tablet 60 TAKE ONE TABLET BY MOUTH TWICE A DAY MAXIMUM DAILY DOSE = 2 TAKE ONE TABLET BY MOUTH TWICE A DAY MAX IMUM DAILY DOSE = 2 SOLD: 05/15/2021 [facility] Acetaminophen 325 MG / Hydrocodone Bitartrate 7.5 MG O ral Tablet 7.5-325 mg HYDROCODONE/ACETAMINOPHEN 05/09/2021 12:00:00 AM EDT tablet 120 TAKE ONE TABLET BY MOUTH EVERY 6 HOURS NEEDED MAXIMUM DAILY DOSE = FOUR TABLETS TAKE ONE TABLET BY MOUTH EVERY 6 HOURS NEEDED MAXIMUM DAILY DOSE = FOUR TABLETS SOLD: 05/15/2021 [facility] ELECTROLYTES/DEXTROSE 05/08/2021 12:00:00 AM EDT solution 3 000 DRINK DIRECTED DRINK DIRECTED SOLD: 05/08/2021 [facility] 500 mg 05/06/2021 12:00:00 AM EDT tablet 14 TAKE ONE TABLET BY MOUTH TWICE A DAY UNTIL GONE TAKE ONE TABLET BY MOUTH TWICE A DAY UNTIL GONE SOLD: 2020 [facility] 2 mg 04/24/2021 12:00:00 AM EDT capsule [...] = 6 TABLETS SOLD: 03/20/2021 [facility] 325 mg 03/19/2021 12:00:00 AM EDT tablet 180 TAKE ONE TABLET BY MOUTH EVERY 3 HOURS NEEDED MAXIMUM DAILY DOSE = 6 TABLETS TAKE ONE TABLET BY MOUTH EVERY 3 HOURS NEEDED MAXIMUM DAILY DOSE = 6 TABLETS SOLD: 05/08/2021 [facility] 0.5 mg 03/13/2021 12:00:00 AM [...] FOR UP TO 10 A DAY SOLD: 05/15/2021 [facility] 23 X 36 " 03/06/2021 [...] DAILY DOSE = 4 TABLETS SOLD: 02/17/2021 [facility] 0.5 mg 02/06/2021 12:00:00 AM EDT tablet 60 TAKE ONE TABLET BY MOUTH TWICE A DAY MAXIMUM DAILY DOSE = 2 TAKE ONE TABLET BY MOUTH TWICE A DAY MAX IMUM DAILY DOSE = 2 SOLD: 02/13/2021 [facility] 800-160 mg 02/06/2021 12:00:00 AM EDT tablet 20 TAKE ONE TABLET BY MOUTH TWICE A DAY TAKE ONE TABLET BY MOUTH TWICE A DAY SOLD: 02/06/2021 [facility] 800-160 mg 01/27/2021 12:00:00 AM EDT tablet 20 TAKE ONE TABLET BY MOUTH EVERY 12 HOURS TAKE ONE TABLET BY MOUTH EVERY 12 HOURS SOLD: 01/27/2021 [facility] Atropine Sulfate 0.025 MG / Diphenoxylat [...] 8 HOURS NEEDED FOR DIZZINESS SOLD: 02/27/2021 [facility] Meclizine Hydrochloride 25 MG Oral [...] A DAY FOR 7 DAYS SOLD: 12/26/2020 [facility] Ondansetron 4 MG Disintegrating Oral Tablet [...] UP TO 10 A DAY SOLD: 12/12/2020 [facility] NITROFURANTOIN, MACROCRYSTALS 25 MG / Ni trofurantoin, [...] Antacid 11/07/2020 12:00:00 AM EDT active [facility] ([facility]) 30 mg 11/07/2020 12:00:00 AM EDT [...] DAY FOR 7 DAYS SOLD: 11/07/2020 [facility] 200 mg calcium (500 mg) 11/07/2020 [...] 11/07/2020 12:00:00 AM EDT ORAL active [facility] ([facility]) 8 % 11/06/2020 12:00:00 AM [...] A DAY FOR 5 DAYS SOLD: 11/03/2020 [facility] DIAPER,BRIEF,ADULT, DISPOSABLE 10/31/2020 12:00:00 AM EDT [...] BY MOUTH TWICE A DAY SOLD: 09/20/2020 [facility] Sulfamethoxazole 800 MG / Trimethoprim 160 MG Oral Tab let Sulfamethoxazole/Trimethoprim DS 09/20/2020 12:00:00 AM EST ORAL active [facility] 2.5-0.025 mg 09/12/2020 12:00:00 AM [...] DAILY DOSE = 9 TABLETS SOLD: 09/05/2020 [facility] Colestipol Hydrochloride 1000 MG Oral Tablet [...] MOUTH THREE TIMES A DAY SOLD: 02/06/2021 [facility] 25 mg 09/03/2020 12:00:00 AM EST tablet 30 TAKE ONE TABLET BY MOUTH EVERY DAY (BENADRYL) TAKE ONE TABLET BY MOUTH EVERY DAY (BENADRYL) SOLD: 09/05/2020 [facility] olanzapine 5 MG Oral Tablet OLANZAPINE 09/03/2020 12:00:00 AM EST tabl et 90 TAKE ONE TABLET BY MOUTH THREE TIMES A DAY TAKE ONE TABLET BY MOUTH THREE TIMES A DAY SOLD: 10/03/2020 [facility] olanzapine 5 MG Oral Tablet [...] UP TO 10 A DAY SOLD: 08/22/2020 [facility] 23 X 36 " 07/19/2020 12:00:00 AM EST pad 150 APPLY TO BED NEEDED FOR UP TO 10 A DAY APPLY TO BED NEEDED FOR UP TO 10 A DAY SOLD: 07/19/2020 [facility] olanzapine 5 MG Oral Tablet OLANZAPINE 07/18/2020 12:00:00 AM EST tabl et 60 TAKE ONE TABLET BY MOUTH TWICE A DAY (ZYPREXA) TAKE ONE TABLET BY MOUTH TWICE A DAY (ZYPREXA) SOLD: 07/18/2020 [facility] olanzapine 5 MG Oral Tablet OLANZAPINE 07/18/2020 [...] DOSE = TWO TABLETS SOLD: 07/18/2020 [facility] Cyclobenzaprine hydrochloride 10 MG Oral Tablet CYCLOBENZAPR INE HCL 07/11/2020 12:00:00 AM EST tablet 60 TAKE ONE TABLET BY MOUTH TWICE A DAY NEEDED TAKE ONE TABLET BY MOUTH TWICE A DAY NEEDED SOLD: 08/08/2020 [facility] Cyclobenzaprine hydrochloride 10 MG Oral Tablet CYCLOBENZAPR INE HCL 07/11/2020 12:00:00 AM EST tablet 60 TAKE ONE TABLET BY MOUTH TWICE A DAY NEEDED TAKE ONE TABLET BY MOUTH TWICE A DAY NEEDED SOLD: 09/12/2020 [facility] 25 mg 07/11/2020 12:00:00 AM [...] Acetaminophen 06/06/2020 12:00:00 AM EST active [facility] ([facility]) Meclizine Hydrochloride 25 MG Oral Tablet MECLIZINE HCL 05/30/2020 12:00:00 AM EST tablet 90 TAKE ONE TABLET BY MOUTH VICKI RY 8 HOURS NEEDED FOR DIZZINESS TAKE ONE TABLET BY MOUTH EVERY 8 HOURS NEEDED FOR DIZZINESS SOLD: 10/10/2020 [facility] Meclizine Hydrochloride 25 MG Oral Tablet MECLIZINE HCL 05/30/2020 12:00:00 AM EST tablet 90 TAKE ONE TABLET BY MOUTH VICKI RY 8 HOURS NEEDED FOR DIZZINESS TAKE ONE TABLET BY MOUTH EVERY 8 HOURS NEEDED FOR DIZZINESS SOLD: 09/05/2020 [facility] Meclizine Hydrochloride 25 MG Oral Tablet MECLIZINE [...] Olanzapine 05/01/2020 12:00:00 AM EDT completed [facility] ([facility]) 2 mg 05/01/2020 12:00:00 AM EDT [...] HCL 04/04/2020 12:00:00 AM EDT active [facility] olanzapine 2.5 MG Oral Tablet OLANZAPINE 02/08/2020 12:00:00 AM EDT ta blet 60 TAKE TWO TABLETS BY MOUTH AT BEDTIME TAKE TWO TABLETS BY MOUTH AT BEDTIME SOLD: 04/18/2020 [facility] 137 mcg (0.1 %) 01/27/2020 [...] TWICE A DAY SOLD: 03/21/2020 [facility] 200 mg calcium (500 mg) [...] TIMES A DAY SOLD: 04/11/2020 [facility] 23 X [...] BY MOUTH TWICE A DAY SOLD: 07/18/2020 [facility] 125 mg 10/04/2019 12:00:00 AM EDT tablet,chewable 100 TAKE 1 TABLET BY MOUTH AFTER EACH MEAL AND BEFORE BED TAKE 1 TABLET BY MOUTH AFTER EACH MEAL A ND BEFORE BED SOLD: 03/21/2020 [facility] 25 mg 09/28/2019 12:00:00 [...] type / Coverage type Policy ID Covered libertarian ID Covered libertarian's relationship to laura Policy Laura Plan Information Medicare Natl Govt Servic Medicare Primary [id number] Self [id number] Medicare Natl Govt Servic Medicare Primary [id number] Self [id number] Medicare Natl Govt Servic Medicare Primary [id number] Self [id number] Medicare Natl Govt Servic Medicare Primary [id number] Self [id number] Medicare Natl Govt Servic Medicare Primary [id number] Self [id number] Medicare - NGS Medicare Primary [id number] Self [id number] Medicare Natl Govt Servic Medicare Primary [id number] Self Medicare Natl Govt Servic Medicare Primary [id number] Self [id number] Medicare - NGS Medicare Primary [id number] Self [id number] Medicare Natl Govt Servic Medicare Primary [id number] Self [id number] Medicare Natl Govt Servic Medicare Primary [id number] Self 0 [id number] Medicare Natl Govt Servic Medicare Primary [id number] Self [id number] [place] Medig[place] Part B [id number] Self MEDICARE [id number] SP [id number] BS [place] Medigap Part B [id number] Self [id number] BS [place] Commercial [phone] [id number] Self [id number] MEDICARE [id number] SP [id number] [place] [id number] Self Medicaid [place] Med[place] Part B [id number] Self MEDICAID [id number] SP [id number] Medicaid Medigap Part B [id number] 0.0 Self [id number] MEDICAID M [id number] S [id number] MEDICAID [id number] SP [id number] ANSI-Medicare Part B [id number] ANSI-Medicaid [id number] ANSI-Medicare Part B [id number] ANSI-Medicaid [id number] ANSI-Medicare Part B [id number] ANSI-Medicaid [id number] ANSI-Medicare Part B [id number] ANSI-Medicaid [id number] ANSI-Medicaid [id number] ANSI-Medicare Part B [id number] MEDICARE [id number] SP [id number] ANSI-Medicare Part B [id number] ANSI-Medicaid [id number] Medicaid [facility] Part B [id number] 0.0 Self [id number] Medicaid [place] Medig[place] Part B [id number] Self [id number] ANSI-Medicaid [id number] ANSI-Medicare Part B [id number] ANSI-Medicare Part B [id number] ANSI-Medicaid [id number] MEDICARE C [id number] S [id number] A Medicaid Medigap Part B [id number] 0.0 Self [id number] Medicaid Medigap Part B [id number] 0.0 Self [id number] Medicaid Medigap Part B [id number] 0.0 Self [id number] Medicaid Medigap Part B [id number] 0.0 Self [id number] [facility] [id number] S [id number] MEDICARE [id number] SP [id number] [place] Med[place] Part B [id number] Self Medicaid Medigap Part B [id number] Self 1 1 BS [place] Medigap Part B [id number] Self [id number] BS [place] Medigap Part B [id number] Self [place] 306/806 NOT ACTIVE SP NOT ACTIVE SELF PAY UNAVAILABLE SP UNAVAILA BLE [place] 306/806 [id number] SP [id number] [place] BCBS S [id number] S [id number] BCBS [place] PPO 302/307 [id number] SP [id number] [place] [id number] SP [id number] Y [id number] MEDICARE PART A -O/P [id number] 18 [id number] MEDICAID -O/P EMERGENCY ROOM [id number] EMED[place] [id number] SP [id number] MEDICARE C [id number] S [id number] MEDICARE PART A -O/P [id number] 18 [id number] MEDICARE PART A -O/P [id number] 18 [id number] Medicaid Medigap Part B [id number] Self [id number] [place] Part B [id number] Self [id number] Medicaid Medigap Part B [id number] 0.0 Self [id number] [place] Part B [id number] Self [id number] BS Of [place] Med[place] Part B [id number] Self [id number] MEDICARE [id number] SP [id number] A75 Medicaid Medigap Part B [id number] 0.0 Self [id number] ANSI-Medicare Part B [id number] ANSI-Medicaid [id number] ANSI-Medicaid [id number] ANSI-Medicare Part B [id number] ANSI-Medicaid [id number] ANSI-Medicare Part B [id number] Problems, Conditions, and Diagnoses Code Display Name Description Problem Type Effective Dates Data Source(s) Z24010 Presence of unspecified artificial hip j oint Presence of unspecified artificial hip joint Diagnosis 03/04/2021 11:38:00 AM [facility] Z24070 Personal history of nicotine dependence Personal history of nicotine dependence Diagnosis 03/04/2021 11:38:00 AM [facility] Z7901 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 I10 Essential (primary) hypertension Essential (primary) h ypertension Diagnosis 03/04/2021 11:38:00 AM [facility] K5900 Constipation, unspecified Constipation, unspecified Di agnosis 03/04/2021 11:38:00 AM [facility] N3000 Acute cystitis without hematuria Acute cystitis without hematuria Diagnosis 02/17/2021 07:58:00 AM [facility] G30682 Pressure ulcer of other site, unspecifie d stage Pressure ulcer of other site, unspecified stage Diagnosis 02/17/2021 07:58:00 AM [facility] F78846 Pain in right foot Pain in right foot Diagnosis 07:58:00 AM EDT [facility] G8929 Other chronic pain Other chronic pain Diagnosis 05:37:00 AM EDT [facility] Q95457 Pain in right ankle and joints of right foot Pain in right ankle and joints of right foot Diagnosis 12/10/2020 05:37:00 AM EDT [facility] R300 Dysuria Dysuria Diagnosis 12/10/2020 05:37:00 AM ED T [facility] R1312 Dysphagia, oropharyngeal phase Dysphagia, oropharyngea l phase Diagnosis 12/01/2020 12:20:00 PM EDT [facility] J029 Acute pharyngitis, unspecified Acute pharyngitis, unsp ecified Diagnosis 12/01/2020 12:20:00 PM EDT [facility] H14617 Unspecified asthma, uncomplicated Unspecified as thma, uncomplicated Diagnosis 10/13/2020 11:01:00 PM EDT [facility] M419 Scoliosis, unspecified Scoliosis, unspecified Diagnosi s 10/13/2020 11:01:00 PM EDT [facility] N3001 Acute cystitis with hematuria Acute cystitis with ilda turia Diagnosis 10/13/2020 11:01:00 PM EDT [facility] R05 Cough Cough Diagnosis 10/13/2020 11:01:00 PM ED T [facility] K36614 Personal history of urinary (tract) infe ctions Personal history of urinary (tract) infections Diagnosis 07/01/2020 06:35:00 AM [facility] Z7902 group home (current) use of antithromboti cs/antiplatelets group home (current) use of antithrombotics/antiplatelets Diagnosis 020 06:35:00 AM [facility] Surgeries/Procedures Procedure Description Date Indications Data Source(s) Colonoscopy 04/26/2020 12:00:00 AM EDT [facility] ([facility]) Results ID Date Data Source [id number] 04/22/2021 08:18:00 AM EDT [facility] Name Value Range Interpretation Code Description Data Melanie rce(s) Supporting Document(s) SARS-CoV-2 (COVID 19) NEGATIVE - SARS-CoV-2 (COVID19) [facility] This lab was ordered by [facility] a nd reported by [facility]. ID Date Data Source [id number] 03/04/2021 11:38:00 AM EDT [facility] 1 OrderSheet [facility] Emergency Department [address] [place] [address] Phone #: ext- [phone] 03/04/2021 11:37 Patient: FABIANO RAMIREZ Sex: F : 1955 Age: 65yWEIGHT:77.1 kg (S) HEIGHT:59 inches (S) BMI:34.4ALLERGIES: Darvacet, Demerol, MicrodentinCHIEF COMPLAINT: abd pain, constipationDIAGNOSIS: ConstipationLAB ORDERSOrder Description Priority Entered Acknowledged InitialedDIAGNOSTIC STUDY ORDERSOrder Description Priority Entered Acknowledged InitialedAbdomen Multiview STAT 13:02 03/04/2021 13:03 Daquan(Oxygen?(No)) 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 (14:35 03/04/2021)][Electronically signed by Anita Fuentes (07:30 03/05/2021)][Electronically locked by Tyler Ladd R.N. (14:35 03/04/2021)] Name Value Range Interpretation Code Description Data Melanie rce(s) Supporting Document(s) ID Date Data Source [id number] 03/04/2021 11:38:00 AM EDT [facility] 1 Medication Reconciliation Report [facility] Emergency Department [address] [place] [address] Phone #: ext- [phone] 03/04/2021 11:37 Patient: [...] the Emergency Department: 2 Medication Reconciliation Report [facility] Emergency Department [address] [place] [address] Phone #: ext- [phone] 03/04/2021 11:37 Patient: FABIANO RAMIREZ Sex: F : 1955 Age: 65yNone.The following Medications were prescribed to the patient:None. Name Value Range Interpretation Code Description Data Melanie rce(s) Supporting Document(s) ID Date Data Source [id number] 03/04/2021 11:38:00 AM EDT [facility] 1 Medication Administration Record [facility] Emergency Department [address] [place] [address] Phone #: ext- [phone] 03/04/2021 11:37 Patient: FABIANO RAMIREZ Sex: F : 1955 Age: 65yWeight: 77.1 kgHeight/Length: 59 inBMI: 34.4ALLERGIES: Darvacet, Microdentin, DemerolDate/Time Medication Administered Medication Ordered Name Value Range Interpretation Code Description Data Melanie rce(s) Supporting Document(s) ID Date Data Source [id number] 03/04/2021 11:38:00 AM EDT [facility] 1 General Instructions [facility] Emergency Department [address] [place] [address] Phone #: ext- [phone] 03/04/2021 11:37 Patient: [...] by patient. ADDITIONAL INFORMATION 2 General Instructions [facility] Emergency Department [address] [place] [address] Phone #: ext- [phone] 03/04/2021 11:37 Patient: [...] aging, work, and travel 3 General Instructions [facility] Emergency Department [address] [place] [address] Phone #: ext- [phone] 03/04/2021 11:37 Patient: FABIANO RAMIREZ Sex: F [...] your healthcare provider first. 4 General Instructions [facility] Emergency Department [address] [place] [address] Phone #: ext- [phone] 03/04/2021 11:37 Patient: FABIANO RAMIREZ Sex: F [...] have more tests or see a specialist.Call [phone] if any of these occur: Trouble breathing Stiff, rigid abdomen that is severely painful to touch Confusion Fainting or loss of consciousness Rapid heart rate Chest painWhen to seek medical adviceCall your healthcare provider right away if any of these occur: Fever of 100.4F (38C) or higher, or as directed by your healthcare provider 5 General Instructions [facility] Emergency Department [address] [place] [address] Phone #: ext- [phone] 03/04/2021 11:37 Patient: FABIANO RAMIREZ Sex: F : 1955 Age: 65y Failure to resume normal bowel movements Pain in your abdomen or back gets worse Nausea or vomiting Swelling in your abdomen Blood in the stool Black, tarry stool Involuntary weight loss Weakness [id number] [employer]. [address] [place] [address]. All rights reserved. This information is not [...] high in fiber 6 Genera l Instructions [facility] Emergency Department [address] [place] [address] Phone #: ext- [phone] 03/04/2021 11:37 Patient: [...] green peas, celery, eggplant, potatoes, spinach, broccoli, [place] sprouts, winter squash, carrots, cauliflower, soybeans, lentils, and fresh and dried beans of all kinds. Other. Popcorn; any spicesIf you have diverticulosisThere aren't any specific foods to avoid if you have diverticulosis. But each person is different. Theremay be some foods that make your symptoms worse. Keep track and don't eat foods that make youfeel worse. 9475-1528 [employer]. [address] [place] [address]. All rights reserved. This information is not intended as asubstitute for professional medical care. Always follow your health career guidance counselor's instructions. You have been given the following additional information: Constipation (Adult) High-Fiber Diet(Electronically signed by EMRE Puga 03/05/2021 07:30) Name Value Range Interpretation Code Description Data Melanie rce(s) Supporting Document(s) ID Date Data Source [id number] 03/04/2021 11:38:00 AM EDT [facility] 1 Clinical Report - Nurses [facility] Emergency Department [address] [place] [address] Phone #: ext- [phone] 03/04/2021 11:37 Patient: FABIANO RAMIREZ Sex: F : 1955 Age: 65yTRIAGEArrived by EMS. Historian: patient. Unaccompanied.Triage time: late entry - 11:34 03/04/2021. Acuity: LEVEL 3.Chief Complaint: ABDOMINAL PAIN and CONSTIPATION.Alert. No acute distress.Onset. (1 weeks ago). ( Pt hasnt had a normal BM in about a week. Pt was seen at [facility] yesterday andwas unable to tolerate a CT scan. She had a small BM 2 days ago. Pt has c/o of abd pain with a burningsensation.). She has had constipation.Treatment HOSPITAL ATTENDANT:None.SEPSIS SCREEN: SIRS SCREEN NEGATIVE. SEPSIS SCREEN NEGATIVE. [...] Ladd R.N.Darvacet. 2 Clinical Report - Nurses [facility] Emergency Department [address] [place] [address] Phone #: ext- [phone] 03/04/2021 11:37 Patient: [...] "Do you 3 Clinical Report - Nurses [facility] Emergency Department [address] [place] [address] Phone #: ext- [phone] 03/04/2021 11:37 Patient: [...] integrity risk identified. --11:45 03/04/21 So Ladd RClaudia. Interventions Identification band on patient. --11:45 03/04/21 So Ladd RClaudia.PHYSICAL ASSESSMENTAmbulatory to room.GENERAL / NEURO / PSYCH: [...] Ladd R.N. 4 Clinical Report - Nurses [facility] Emergency Department [address] [place] [address] Phone #: ext- [phone] 03/04/2021 11:37 Patient: FABIANO RAMIREZ Sex: F [...] F. Pain level now 5/10. 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 Departure [...] Patient verbalized understanding. Written instructions provided in [place] Zealander. The patient was discharged by the physician lens assistant. She was discharged home and unaccompanied at time of discharge. She left ambulatory and via taxi. 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 --14:34 03/04/21 So Ladd R.N.Locked/Released at 03/04/2021 14:35 by So Ladd R.N. Name Value Range Interpretation Code Description Data Melanie rce(s) Supporting Document(s) ID Date Data Source [id number] 03/04/2021 11:38:00 AM EDT [facility] 1 Clinical Report - Physicians/Mid Levels [facility] Emergency Department [address] [place] [address] Phone #: ext- [phone] 03/04/2021 11:37 Patient: FABIANO RAMIREZ Sex: F [...] seen in the E.D., severity described as 10. Modifying factors- (Symptoms slightly relief with [...] bed and bathroom." She was seen at [facility] yesterday but was unable to tolerate laying [...] seen recently by a health care provider ([facility] ED yesterday).REVIEW OF SYSTEMSNo chills, fatigue, fever, [...] Repair. 2 Clinical Report - Physicians/Mid Levels [facility] Emergency Department [address] [place] [address] Phone #: ext- [phone] 03/04/2021 11:37 Patient: FABIANO RAMIREZ Sex: F [...] 3. 3 Clinical Report - Physicians/Mid Levels [facility] Emergency Department [address] [place] [address] Phone #: ext- [phone] 03/04/2021 11:37 Patient: FABIANO RAMIREZ Sex: F : 1955 Age: 65yLABS, X-RAYS, AND EKGLaboratory Tests: Laboratory tests have been ordered, with results reviewed and considered in themedical decision making process. Abdomen Multiview: (OLE: 03/04/2021 13:02) ( MsgRcvd 03/04/2021 15:03) Final results Exam ABDOMEN MULTIPLE VIEW [facility] [address] [place] [address] PHONE: [phone] FAX: [phone] Name .................. : CANDIDO MARIO Acct Number.................. : [id number] ROOM. ................. : TR-03 MR Number ................... : [id number] Stay type ............. : E/R Discharge Date......... ... : Admit Date ......... : 03/04/21 Admit Phys .................... : IRMA Stallings Date of ....... : 1955 Family Phys ................... : JENNY GARCIA Phone .................. : [phone] Age ................................ : 65 Film# .................. .:[id number] Sex ................................. : F Unsigned transcriptions are preliminary reports and do not represent a medical or legal document ABDOMEN MULTIPLE VIEW [id number] COMPLETE:03/04/21 13:02 [id number] Reason(s): constipation, lower abd pain ABDOMINAL RADIOGRAPH [...] By Ta Shin MD , 03/04/21 15:03, SCB Transcribe Initials: SHANNAN , Transcribe Date: 03/04/21 13:29, Dictation Date: Copy for: 010 EMERGENCY SRV Copy for: MAYE CHANG via fax Copy for: EMERGENCY DEPT via modem Copy for: 710 MED REC 4 Clinical Report - Physicians/Mid Levels [facility] [place] [address] Phone #: ext- [phone] 03/04/2021 11:37 Patient: FABIANO RAMIREZ Sex: F [...] packet. 5 Clinical Report - Physicians/Mid Levels [facility] Emergency Department [address] [place] [address] Phone #: ext- [phone] 03/04/2021 11:37 Patient: FABIANO RAMIREZ [facility] [id number] Sex: F : 1955 Age: 65y Motrin IB Oral : 400, prn. Potassium Chloride Oral : Packet 20 meq, 2x a day. Promethazine HCl Oral : Tablet 25 mg, prn. Sudafed Oral : 60 mg 2x a day. ZyPREXA Oral : Tablet 10 mg, at bedtime. Follow-up: Follow up with your [facility] provider Daisy Rodriguez NP Friday. Call for an appointment. Reason for referral: evaluation and treatment. Summary of care provided to patient via paper. Understanding of the discharge instructions verbalized by patient.(Electronically signed by EMRE Puga 03/05/2021 07:30) Name Value Range Interpretation Code Description Data Melanie rce(s) Supporting Document(s) ID Date Data Source [id number] 03/04/2021 03:03:00 PM EDT [facility] [address] [place] [address] PHONE: [phone] FAX: [phone] Name .................. : CANDIDO MARIO Acct Number.................. : [id number] ROOM. ................. : TR03 Number ................... : [id number] Stay type ............. : E/R Discharge Date......... ... : Admit Date ......... : 03/04/21 Admit Phys .................... : IRMA Stallings Date of ....... : 1955 Family Phys ................... : JENNY GARCIA Phone .................. : [phone] Age ................................ : 65 Film# .................. .:[id number] Sex ................................. : F Unsigned transcriptions are preliminary reports and do not represent a medical or legal document ABDOMEN MULTIPLE VIEW 25940 COMPLETE:03/04/21 13:02 72521 Reason(s): constipation, lower abd pain ABDOMINAL RADIOGRAPH [...] By Ta Shin MD , 03/04/21 15:03, SCB Transcribe Initials: DZ , Transcribe Date: 03/04/21 13:29, Dictation Date: Copy for: 010 EMERGENCY SRV Copy for: MAYE CHANG via fax Copy for: EMERGENCY DEPT via modem Copy for: 710 MED REC Page 1 of 1 Name Value Range Interpretation Code Description Data Melanie rce(s) Supporting Document(s) ID Date Data Source [id number] 02/19/2021 09:47:00 AM EDT [facility] [address] [place] [address] PHONE: [phone] FAX: [phone] Name .................. : CANDIDO MARIO Acct Number.................. : [id number] ROOM. ................. : TR-02 MR Number ................... : [id number] Stay type ............. : E/R Discharge Date......... ... : 02/17/21 Admit Date ......... : 02/17/21 Admit Phys .................... : IRMA Stallinsg Date of ....... : 1955 Family Phys ................... : Short Fuze Phone .................. : [phone] Age ................................ : 65 Film# .................. .:[id number] Sex ................................. : F Unsigned transcriptions are preliminary reports and do not represent a medical or legal document [place] [id number] COMPLETE:02/17/21 08:31 84247 Reason(s): Pain RIGHT TOE SERIES: FINDINGS: Amputation of the michelle of the second and third digits noted. No other abnormalities. 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 Electronically Reviewed and Signed By NIGEL LEVINE MD , 02/19/21 09:47, [facility] Transcribe Initials: SHANNAN , Transcribe Date: 02/17/21 11:42, Dictation Date: Copy for: EMERGENCY DEPT via [facility] Copy for: 710 MED REC DISCHARGED Page 1 of 1 Name Value Range Interpretation Code Description Data Melanie rce(s) Supporting Document(s) ID Date Data Source [id number] 02/17/2021 07:58:00 AM EDT [facility] 1 OrderSheet [facility] Emergency Department [address] [place] [address] Phone #: ext- [phone] 02/17/2021 07:54 Patient: FABIANO RAMIREZ Sex: F : 1955 Age: 65yWEIGHT:67.8 kg (M) HEIGHT:59 inches (S) BMI:30.2ALLERGIES: Darvacet, Demerol, MicrodentinCHIEF COMPLAINT: painDIAGNOSIS: CystitisLAB ORDERSOrder Description Priority Entered Acknowledged InitialedUrinalysis (Clean STAT 08:31 02/17/2021 08:57 NareshCatch) Serge Echeverria ; Thomas RNCulture, Urine STAT 08:31 02/17/2021 08:57 Naresh(Urine, Clean Serge Echeverria ; Thomas RNCatch)DIAGNOSTIC STUDY ORDERSOrder Description Priority Entered Acknowledged InitialedToes Right STAT 08:02/17/2021 08:33 Naresh(Oxygen?(No)) Serge Echeverria ; Thomas RN Reason for Study: PainMEDICATION/IV/DRIP/FLUID ORDERSOrder Description Priority Entered Acknowledged InitialedGENERAL ORDERSOrder Description Priority Entered Acknowledged InitialedSplint (Aircast) R 10:13 02/17/2021 10:15 Serge Resendez ; Julio Ibarra Tech1[Electronically signed by Naresh Guzman RN (10:02/17/2021)][Electronically signed by Serge Echeverria (11:03 02/17/2021)][Electronically locked by Naresh Guzman RN (:02/17/2021)] Name Value Range Interpretation Code Description Data Melanie rce(s) Supporting Document(s) ID Date Data Source [id number] 02/17/2021 07:58:00 AM EDT [facility] 1 Medication Reconciliation Report [facility] Emergency Department [address] [place] [address] Phone #: ext- [phone] 02/17/2021 07:54 Patient: [...] the Emergency Department: 2 Medication Reconciliation Report [facility] Emergency Department [address] [place] [address] Phone #: ext- [phone] 02/17/2021 07:54 Patient: FABIANO RAMIREZ Sex: F : 1955 Age: 65yNone.The following Medications were prescribed to the patient:Bactrim DS 800 mg-160 mg tablet Take 1 tablet twice a day for 7 days -- Dispense 14 tablet. Refills: 0.Substitution permitted.Pharmacy - [facility] - [id number] ; [place] [address]. . -- Serge Echeverria Name Value Range Interpretation Code Description Data [facility] rce(s) Supporting Document(s) ID Date Data Source [id number] 02/17/2021 07:58:00 AM EDT [place] [address] Medication Administration Record [facility] Emergency Department [address] [place] [address] Phone #: ext- [phone] 02/17/2021 07:54 Patient: FABIANO RAMIREZ Sex: F : 1955 Age: 65yWeight: 67.8 kgHeight/Length: 59 inBMI: 30.2ALLERGIES: Darvacet, Demerol, MicrodentinDate/Time Medication Administered Medication Ordered Name Value Range Interpretation Code Description Data [facility] Supporting Document(s) ID Date Data Source [id number] 02/17/2021 07:58:00 AM EDT [facility] 1 General Instructions [facility] Emergency Department [address] [place] [address] Phone #: ext [phone] 02/17/2021 07:54 Patient: FABIANO RAMIREZ Sex: F [...] Dispense 14 tablet. Refills: 0.Substitution permitted.Pharmacy - [facility] [address] [place] [address]. .Follow-up:Follow up with your healthcare provider.Understanding of the discharge instructions verbalized by patient. 2 General Instructions [facility] Emergency Department [address] [place] [address] Phone #: ext- [phone] 02/17/2021 07:54 Patient: FABIANO RAMIREZ Sex: F [...] a bladder infection are: 3 General Instructions [facility] Emergency Department [address] [place] [address] Phone #: ext- [phone] 02/17/2021 07:54 Patient: [...] Fluid loss (dehydration) Constipation 4 General Instructions [facility] Emergency Department [address] [place] [address] Phone #: ext- [phone] 02/17/2021 07:54 Patient: [...] can irritate your bladder. 5 General Instructions [facility] Emergency Department [address] [place] [address] Phone #: ext- [phone] 02/17/2021 07:54 Patient: [...] if the results will affect your treatment.Call [phone] if any of the following occur: Trouble [...] swelling in the outer vaginal area (labia) 8818-4641 [employer]. [address] [place] [address], [place] [address]. All rights reserved. This information is not intended as asubstitute for professional medical care. Always follow your healthcare professional's instructions. 6 General Instructions [facility] Emergency Department [address] [place] [address] Phone #: ext- [phone] 02/17/2021 07:54 Patient: FABIANO RAMIREZ Sex: F : 1955 Age: 65yYou have been given the following additional information:Bladder Infection, Female (Adult)(Electronically signed by Serge Echeverria 02/17/2021 11:03) Name Value Range Interpretation Code Description Data Melanie rce(s) Supporting Document(s) ID Date Data Source [id number] 02/17/2021 07:58:00 AM EDT [facility] 1 Clinical Report - Nurses [facility] Emergency Department [address] [place] [address] Phone #: qqd- [phone] 02/17/2021 07:54 Patient: FABIANO RAMIREZ Sex: F : 1955 Age: 65yTRIAGEArrived by EMS. Historian: patient.Acuity: LEVEL 4.Chief Complaint: RIGHT LOWER EXTREMITY PAIN.No injury occurred. Onset. (2 weeks ago). ( Pt states she has had right lower extremity pain for about thepast 2 weeks, she was seen here more than a couple weeks ago and an air splint was applied, she went [facility] yesterday and was released, she reports continued pain and now feels nausea).Treatment HOSPITAL ATTENDANT:None.EMS Treatment HOSPITAL ATTENDANT:EMS treatment verbally communicated and report reviewed. See report.SEPSIS SCREEN: SIRS SCREEN NEGATIVE. SEPSIS SCREEN NEGATIVE. No suspected or confirmedsigns of infection present.THA COMA SCORE: 15- eyes open- spontaneous (4); best verbal response- oriented (5); bestmotor response- obeys commands (6). --08:02 02/17/21 Naresh Guzman, RN07:57 02/17/21. BP: 123/81. MAP: 95. HR: 101. RR: 18. O2 saturation: 94%. Temp: 97.9 F. Pain levelnow: 04/29. --08:02 02/17/21 Naresh Guzman RN.Weight: 67.8 kg [...] a day. 2 Clinical Report - Nurses [facility] Emergency Department [address] [place] [address] Phone #: ext- [phone] 02/17/2021 07:54 Patient: FABIANO RAMIREZ Sex: F : 1955 Age: 65y ZyPREXA Oral (Tablet 10 mg), at bedtime. --07:59 02/17/21 Naresh Guzman RN. Allerg ies Darvacet. Demerol. Microdentin. --07:59 02/17/21 Naresh Guzman RN. [...] Naresh Guzman RN. Interventions To treatment room. --08:02 02/17/21 Naresh Guzman RN.PHYSICAL ASSESSMENTTo room via stretcher.GENERAL / NEURO / PSYCH: Oriented X 4. Alert. Appears in pain.EXTREMITIES: Extremity pulses are within normal limits. Neuro-vascular status intact to the extremity.No lower extremity edema. Right ankle: tenderness. ( much dry skin around all toes).SKIN: Skin intact. Skin is warm and dry. --08:04 02/17/21 Naresh Guzman RN. 3 Clinical Report - Nurses [facility] Emergency Department [address] [place] [address] Phone #: ext- [phone] 02/17/2021 07:54 Patient: FABIANO RAMIREZ Sex: F [...] Patient verbalized understanding. Written instructions provided in [place]alander. The patient was discharged by the physician. [...] rce(s) Supporting Document(s) ID Date Data Source [id number] 02/17/2021 07:58:00 AM EDT [facility] 1 Clinical Report - Physicians/Mid Levels [facility] Emergency Department [address] [place] [address] Phone #: ext- [phone] 02/17/2021 07:54 Patient: [...] No trauma. She states the ED at [facility] just wraps her toes, she thinks they wrapped it too tight. She wears a air cast and walks with a walker at home.). Patient denies an injury. Similar symptoms previously. Recent medical care: The patient was seen recently in the emergency department. ( Multiple times at [facility] for urinary complaints).REVIEW OF SYSTEMSNo chest [...] saturation: 94%. Temp: 97.9 F.Pain level now: 10/10.Appearance: Alert. Oriented X3. No acute distress.Eyes: Pupils equal, round and reactive to light.ENT: Nose normal. Pharynx normal.Neck: Normal inspection. 2 Clinical Report - Physicians/Mid Levels [facility] Emergency Department [address] [place] [address] Phone #: ext- [phone] 02/17/2021 07:54 Patient: FABIANO RAMIREZ Sex: F : 1955 Age: 65y CVS: [...] UA done over last several months at [facility]. Not currently on antibiotics 3 Clinical Report - Physicians/Mid Levels [facility] Emergency Department [address] [place] [address] Phone #: ext- [phone] 02/17/2021 07:54 Patient: [...] tablet. Refills: 0. Substitution permitted. Pharmacy - [facility] #48 - [address] ; [place] [address]. . 4 Clinical Report - Physicians/Mid Levels [facility] Emergency Department [address] [place] [address] Phone #: ext- [phone] 02/17/2021 07:54 Patient: FABIANO RAMIREZ Sex: F : 1955 Age: 65y Follow-up: Follow up with your healthcare provider. Understanding of the discharge instructions verbalized by patient.(Electronically signed by Serge Echeverria 02/17/2021 11:03) Name Value Range Interpretation Code Description Data Melanie rce(s) Supporting Document(s) ID Date Data Source [id number] 02/20/2021 07:22:00 AM EDT [facility] Name Value Range Interpretation Code Description Data Melanie rce(s) Supporting Document(s) CULTURE URINE [facility] _CULTURE URINE_$$[id number]$$[id number]$$[id number]$$354457$$287907$$040887$$046423$$344640$$232067$$ 431061$$520015$$127931$$286857$$594408$$573731$$749991$$365121$$485840$$602895$$ 428370$$382107$$364161$$903642$$976412$$360438$$930272$$056928 -- Continued on next page --Patient: CANDIDO MARIO Order: [id number] Page 2Culture: CULTURE URINE Status: Final ====$$[id number]$$[id number] DATE/TIME: 02/19/2021 08:06Culture: CULTURE URINE Status: FinalUrine Culture,Comprehensive: C7Cihwn urogenital flora25,000-50,000 colony forming units per mLP1 Test performed [facility]: [facility] KATY #: [id number] [address] [place] [address] [id number] [facility] [address]Otdflgi Director : Ross Jeffers MD NPI #:Varnisher Plasticoater : 02/20/21.0722.XMT.SENT REF ID Date Data Source [id number] 02/17/2021 09:31:00 AM EDT [facility] Name Value Range Interpretation Code Description Data Melanie rce(s) Supporting Document(s) URINALYSIS [facility] URINALYSIS SOURCE R [facility] COLOR yellow NORMAL: Yellow [facility] CLARITY hazy NORMAL: Clear [facility] Specific gravity of Urine by Test strip 1.015 1.001 - 1.030 [facility] pH 8 5 - 9 [facility] Glucose [Mass/volume] in Urine by Test strip NORM NORMAL: Negat [facility] Bilirubin.total [Presence] in Urine by Test strip NEG NORMAL: Negative [facility] Ketones [Presence] in Urine by Test strip NEG NORMAL: Negative [facility] Protein [Mass/volume] in Urine by Test strip NEG NORMAL: Negat [facility] Nitrite [Presence] in Urine by Test strip NEG NORMAL: Negative [facility] BLOOD 25 NORMAL: Negative A [facility] LEUK EST 100 NORMAL: Negative [facility] Urobilinogen [Mass/volume] in Urine by Test strip NOR less deanna n 1.0 mg/dL [facility] MICROSCOPIC See Below [facility] ital WBC 10 - 15 NORMAL: NONE SEEN A [facility] Erythrocytes [#/volume] in Urine by Test strip 15 - 20 NORMAL: NON E SEEN A [facility] EPITHELIAL MODERATE NORMAL: NONE SEEN A [facility] Bacteria [Presence] in Urine sediment by Light microscopy 1+ SMALL NORMAL: NONE SEEN [facility] Amorphous sediment [Presence] in Urine sediment by Light yong roscopy 2+ NORMAL: NONE SEEN [facility] Crystals [type] in Urine sediment by Light microscopy See Below [facility] TRIPLE PHOS 3+ NORMAL: NONE SEEN A [facility] ID Date Data Source [id number] 12/10/2020 05:37:00 AM EDT [facility] 1 OrderSheet [facility] Emergency Department [address] [place] [address] Phone #: ext- [phone] 12/10/2020 05:37 Patient: FABIANO RAMIREZ Sex: F : 1955 Age: 65yWEIGHT:68.0 kg (S) HEIGHT:59 inches (S) BMI:30.3ALLERGIES: Darvacet, Demerol, MicrodentinCHIEF COMPLAINT: dysuriaDIAGNOSIS: Urinary tract infectious diseaseLAB ORDERSOrder Description Priority Entered Acknowledged InitialedUrinalysis (Clean STAT 05:49 12/10/2020 05:49 Srinivasa Lerner) Roxanne Lerner R.N., R.N.; Per protocol; Xavier ArriagaCulture, Urine STAT 06:58 12/10/2020 07:04 Yann,(Urine, Clean Xavier Oliveira R.N.Catch) Physician;DIAGNOSTIC STUDY ORDERSOrder Description Priority Entered Acknowledged [...] rce(s) Supporting Document(s) ID Date Data Source [id number] 12/10/2020 05:37:00 AM EDT [facility] 1 Medication Reconciliation Report [facility] Emergency Department [address] [place] [address] Phone #: ext- [phone] 12/10/2020 05:37 Patient: [...] Emergency Department: 2 Medication Re conciliation Report [facility] Emergency Department [address] [place] [address] Phone #: ext- [phone] 12/10/2020 05:37 Patient: FABIANO RAMIREZ Sex: F : 1955 Age: 65yMacrobid [PO] PO 100 mg, administered: 07:11 12/10/2020The following Medications were prescribed to the patient:Macrobid 100 mg capsule Take 1 capsule twice a day for 7 days -- Dispense 14 capsule. Refills: 0.Substitution permitted.Pharmacy - [facility] - [address] ; [place] [address]. . -- Xavier Robertson, Physician Name Value Range Interpretation Code Description Data Melanie rce(s) Supporting Document(s) ID Date Data Source [id number] 12/10/2020 05:37:00 AM EDT [facility] 1 Medication Administration Record [facility] Emergency Department [address] [place] [address] Phone #: [phone] 12/10/2020 05:37 Patient: FABIANO RAMIREZ Sex: F : 1955 Age: 65yWeight: 68.0 kgHeight/Length: 59 inBMI: 30.3ALLERGIES: Darvacet, Demerol, Microdentin Date/Time Medication Administered Medication OrderedGiven MACROBID [PO] (NITROFURANTOIN Macrobid PO 100 mg (NOW)07:11 12/10/2020 MONOHYD MACRO)Roxanne Lerner R.N. Dose: 100 mg PO Name Value Range Interpretation Code Description Data Melanie rce(s) Supporting Document(s) ID Date Data Source [id number] 12/10/2020 05:37:00 AM EDT [facility] 1 General Instructions [facility] Emergency Department [address] [place] [address] Phone #: ext- [phone] 12/10/2020 05:37 Patient: [...] Dispense 14 capsule. Refills: 0.Substitution permitted.Pharmacy - [facility] #[id number] - [address] ; [place] [address]. .Follow-up:Follow up with your healthcare provider in three days for staple removal. Call for an appointment. Summaryof care provided to patient via paper.Understanding of the discharge instructions verbalized. ADDITIONAL INFORMATIONBladder Infection, Female (Adult) 2 General Instructions [facility] Emergency Department [address] [place] [address] Phone #: ext- [phone] 12/10/2020 05:37 Patient: [...] Urgent need to urinate 3 General Instructions [facility] Emergency Department [address] [place] [address] Phone #: ext- [phone] 12/10/2020 05:37 Patient: [...] a diaphragm for controlTreatment 4 General Instructions [facility] Emergency Department [address] [place] [address] Phone #: ext- [phone] 12/10/2020 05:37 Patient: [...] your healthcare provider.Follow-up care 5 General Instructions [facility] Emergency Department [address] [place] [address] Phone #: ext- [phone] 12/10/2020 05:37 Patient: [...] if the results will affect your treatment.Call [phone] if any of the following occur: [...] swelling in the outer vaginal area (labia) [id number] [employer]. [address] [place] [address]. All rights reserved. This information is not intended as asubstitute for professional medical care. Always follow your healthcare professional's instructions. You have been given the following additional information: Bladder Infection, Female (Adult) 6 General Instructions [facility] Emergency Department [address] [place] [address] Phone #: ext- [phone] 12/10/2020 05:37 Patient: FABIANO RAMIREZ [facility] [id number] Sex: F : 1955 Age: 65y(Electronically signed by Xavier Robertson, Physician 12/10/2020 07:04) Name Value Range Interpretation Code Description Data Melanie rce(s) Supporting Document(s) ID Date Data Source [id number] 12/10/2020 05:37:00 AM EDT [facility] 1 Clinical Report - Nurses [facility] Emergency Department [address] [place] [address] Phone #: ext- [phone] 12/10/2020 05:37 Patient: [...] LEG PAIN.Alert. No acute distress.This started today.Treatment HOSPITAL ATTENDANT:None.SEPSIS SCREEN: SIRS SCREEN NEGATIVE. SEPSIS SCREEN NEGATIVE. [...] Noam Carney.AllergiesDarvacet.Demerol. 2 Clinical Report - Nurses [facility] Emergency Department [address] [place] [address] Phone #: ext- [phone] 12/10/2020 05:37 Patient: [...] membranes are 3 Clinical Report - Nurses [facility] Emergency Department [address] [place] [address] Phone #: ext- [phone] 12/10/2020 05:37 Patient: FABIANO RAMIREZ Sex: F : 1955 Age: 65y pink. [...] with patient. Verbalizes understanding. --07:11 12/10/20 Roxanne Ibrahim, RFreyaN. Short leg velcro splint applied to right ankle. Distal pulses intact, sensation intact and motor within normal limits. Patient tolerated the procedure well. Splinting applied by me. --07:12 12/10/20 Roxanne Lerner RFreyaN.DISPOSITION / DISCHARGE Condition at departure: stable. No learning barriers present. Discharge instructions provided and reviewed with the patient. Reviewed warnings. Reviewed medication(s). Treatments reviewed. Reviewed referrals. Patient verbalized understanding. Written instructions provided in [place] Zealander. The patient was discharged home and accompanied by taxi. Sh e left ambulatory and via private vehicle. Driving (taxi). --07:13 12/10/20 Roxanne Lerner R.N. 07:12 12/10/20. BP: 147/83. MAP: 104. HR: 94. RR: 19. O2 saturation: 96%. Temp: 98.1 F. Pain level now: 01/27. --07:13 12/10/20 Roxanne Lerner R.N. ( Pt is awaiting cab at this time to take her back home.). --07:14 12/10/20 Roxanne Lerner R.N.Locked/Released at 12/10/2020 07:14 by Roxanne Lerner R.N. Name Value Range Interpretation Code Description Data Melanie rce(s) Supporting Document(s) ID Date Data Source [id number] 12/10/2020 05:37:00 AM EDT [facility] 1 Clinical Report - Physicians/Mid Levels [facility] Emergency Department [address] [place] [address] Phone #: ext- [phone] 12/10/2020 05:37 Patient: [...] Spinal surgery. 2 Clinical Report - Physicians/Mid [facility] Emergency Department [address] [place] [address] Phone #: ext- [phone] 12/10/2020 05:37 Patient: [...] roomair. Temp: 98.1 F. Pain level now: 1010. Have been reviewed as abnormal. Hypertensive. Heart [...] process. 3 Clinical Report - Physicians/Mid Levels [facility] Emergency Department [address] [place] [address] Phone #: ext- [phone] 12/10/2020 05:37 Patient: [...] arise. 4 Clinical Report - Physicians/Mid Levels [facility] Emergency Department [address] [place] [address] Phone #: ext- [phone] 12/10/2020 05:37 Patient: FABIANO RAMIREZ Sex: F : 1955 Age: 65y Prescription Medications: Macrobid 100 mg capsule Take 1 capsule twice a day for 7 days -- Dispense 14 capsule. Refills: 0. Substitution permitted. Pharmacy - [facility] #[facility] - [address] [place] [address]. . Follow-up: Follow up with your healthcare provider in three days for staple removal. Call for an appointment. Summary of care provided to patient via paper. Understanding of the discharge instructions verbalized.(Electronically signed by Xavier Robertson, Physician 12/10/2020 07:04) Name Value Range Interpretation Code Description Data Melanie rce(s) Supporting Document(s) ID Date Data Source [id number] 12/14/2020 09:42:00 AM EDT [facility] Name Value Range Interpretation Code Description Data Melanie rce(s) Supporting Document(s) CULTURE URINE [facility] _CULTURE URINE_$$[id number]$$696703$$983753$$832660$$799523$$161047$$199448$$138990$$064207$$ 329447$$650169$$488722$$624237$$316522$$479864$$598371$$576430$$037539$$689044$$ 124083$$000493$$286683$$603572$$473635$$425307$$503148$$211279 -- Continued on next page --Patient: CANDIDO MARIO Order: Page 2Culture: CULTURE URINE Status: Final ==== -- Continued on next page --Patient: CANDIDO MARIO Order: Page 2Culture: CULTURE URINE Status: Prelim =====$$[id number]$$[id number] DATE/TIME: 12/14/2020 09:06Culture: CULTURE URINE Status: FinalIsolate [...] on 12/13/2020 05:37 ET Escherichia coliUrine Culture,Comprehensive: J2Ldgtcgconah coli Flag: APatient: CANDIDO MARIO Order: [id number] Page 3Culture: CULTURE URINE Status: Final ISOLATE [...] S S . . . . . .11377-3Fburekzwhs S S . . . . . .267-5Imipenem S S . . . . . .279-0Levofloxacin R R . . . . . .36142- 8Meropenem S S . . . . . .6652-2Nitrofurantoin S S . . . . . .363-2Piperacillin/Tazobactam S S . . . . . .412-7Tetracycline S S . . . . . .496-0Tobramycin S S . . . . . .508-2 Trimethoprim/Sulfa S S . . . . . .516-5P1 Test performed by: [facility] #: [id number] [address] [place] [address] [id number] [facility] [id number] Director : Ross Jeffers MD NPI #:Varnisher Plasticoater : 12/13/20.1334.XMT.SENT REF 12/14/20.0942.XMT.SENT REF ID Date Data Source [id number] 12/10/2020 06:34:00 AM EDT [facility] Name Value Range Interpretation Code Description Data Melanie rce(s) Supporting Document(s) URINALYSIS [facility]to [facility] COL[facility] yellow NORMAL: Yellow [facility] CLARITY cloudy NORMAL: Clear [facility] Specific gravity of Urine by Test strip 1.015 1.001 - 1.030 [facility] pH 8 5 - 9 [facility] Glucose [Mass/volume] in Urine by Test strip NORM NORMAL: Negat [facility] Bilirubin.total [Presence] in Urine by Test strip NEG NORMAL: Negative [facility] Ketones [Presence] in Urine by Test strip NEG NORMAL: Negative [facility] Protein [Mass/volume] in Urine by Test strip NEG NORMAL: Negat [facility] Nitrite [Presence] in Urine by Test strip NEG NORMAL: Negative [facility] BLOOD 10 NORMAL: Negative [facility] Leukocyte esterase [Presence] in Urine by Test strip 500 KANE L: Negative [facility] Urobilinogen [Mass/volume] in Urine by Test strip NOR less deanna n 1.0 mg/dL [facility] MICROSCOPIC See Below [facility] ital WBC 20 - 30 NORMAL: NONE SEEN A [facility] Erythrocytes [#/volume] in Urine by Test strip 3 - 5 NORMAL: NON E SEEN [facility] EPITHELIAL MODERATE NORMAL: NONE SEEN A [facility] Bacteria [Presence] in Urine sediment by Light microscopy 2+ MOD NORMAL: NONE SEEN A [facility] Amorphous sediment [Presence] in Urine sediment by Light yong roscopy 2+ NORMAL: NONE SEEN [facility] ID Date Data Source [id number] 12/06/2020 09:09:00 AM EDT [facility] [address] [place] [address] PHONE: [phone] FAX: [phone] Name .................. : CANDIDO MARIO Acct Number.................. : [id number] ROOM. ................. : VT-05 Number ................... : [id number] Stay type ............. : E/R Discharge Date......... ... : 12/01/20 Admit Date ......... : 12/01/20 Admit Phys .................... : ROXANNEBANNER MD [facility] Date of ....... : 1955 Family Phys ................... : JENNY NAN Phone .................. : [phone] Age ................................ : 65 Film# .................. .:[id number] Sex ................................. : F Unsigned transcriptions are preliminary reports and do not represent a medical or legal document CT ST NECK W/O CONTRAST 53499 COMPLETE:12/01/20 15:07 RUFUS [id number] Reason(s): evaluate for foreign body as she [...] and further evaluation, Page 1 of 2 [place] [address] PHONE: [phone] FAX: [phone] Name .................. : CANDIDO MARIO Acct Number.................. : [id number] ROOM. ................. : VT-05 Number ................... : [id number] Stay type ............. : E/R Discharge Date......... ... : 12/01/20 Admit Date ......... : 12/01/20 Admit Phys .................... : VIJAYA Date of ....... : Family Phys ................... : JENNY NAN Phone .................. : [phone] Age ................................ : 65 Film# .................. .:[id number] Sex ................................. : F Unsigned transcriptions are preliminary reports and do not represent a medical or legal document CT ST NECK W/O CONTRAST 09909 COMPLETE:12/01/20 15:07 RUFUS [id number] Reason(s): evaluate for foreign body as she [...] By Alf Glass MD , 12/06/20 09:09, AML Transcribe Initials: SSR, Transcribe Date: 12/05/20 10:47, Dictation Date: Copy for: EMERGENCY DEPT via mode Copy for: 710 MED REC DISCHARGED Page 2 of 2 Name Value Range Interpretation Code Description Data Melanie rce(s) Supporting Document(s) ID Date Data Source [id number] 12/01/2020 12:20:00 PM EDT [facility] 1 OrderSheet [facility] Emergency Department [address] [place] [address] Phone #: ext- [phone] 12/01/2020 12:07 Patient: FABIANO RAMIREZ Sex: F : 1955 Age: 65yWEIGHT:71.9 kg (M) HEIGHT:59 inches (S) BMI:32.0ALLERGIES: Darvacet, Demerol, MicrodentinCHIEF COMPLAINT: sore throat, FB sensation in throatDIAGNOSIS: DysphagiaLAB ORDERSOrder Description Priority Entered Acknowledged InitialedDIAGNOSTIC STUDY ORDERSOrder Description Priority Entered Acknowledged InitialedCT Neck Soft STAT 13:26 12/01/2020 13:30 Boby,Tissue W/O Cont Karen Saucedo R.N.(Oxygen?(No)) ; Reason for Study: evaluate for foreign body as she has fb sensation on swallowing after she choked on chicken boneMEDICATION/IV/DRIP/FLUID ORDERSOrder Description Priority Entered Acknowledged InitialedGI Cocktail PO 50 12:34 12/01/2020 12:40 Boby,mL with Lidocaine Karen Saucedo R.N.Viscous ;Mouth/Throat 10mL, Maalox Oral 30mL, Oral10 mLAtivan IM 1 mg 14:20 12/01/2020 14:25 Boby,(HIGH ALERT Karen Saucedo R.N.MEDICATION, ;NOW)GENERAL ORDERSOrder Description Priority Entered Acknowledged Initialed[Electronically signed by Myles Landis R.N. (16:50 12/01/2020)][Electronically signed by Karen Saucedo (19:10 12/01/2020)][Electronically locked by Myles Landis R.N. (16:50 12/01/2020)] Name Value Range Interpretation Code Description Data Melanie rce(s) Supporting Document(s) ID Date Data Source [id number] 12/01/2020 12:20:00 PM EDT [facility] 1 Medication Reconciliation Report [facility] Emergency Department [address] [place] [address] Phone #: ext- [phone] 12/01/2020 12:07 Patient: [...] the Emergency Department: 2 Medication Reconciliation Report [facility] Emergency Department [address] [place] [address] Phone #: ext- [phone] 12/01/2020 12:07 Patient: FABIANO RAMIREZ Sex: F : 1955 Age: 65yGI Cocktail [PO] PO 50 mL, administered: 12:40 12/01/2020tivan [IM] IM 1 mg, administered: 14:25 12/01/2020The following Medications were prescribed to the patient:None. Name Value Range Interpretation Code Description Data Melanie rce(s) Supporting Document(s) ID Date Data Source [id number] 12/01/2020 12:20:00 PM EDT [facility] 1 Medication Administration Record [facility] Emergency Department [address] [place] [address] Phone #: ext- [phone] 12/01/2020 12:07 Patient: FABIANO RAMIREZ Sex: F : 1955 Age: 65yWeight: 71.9 kgHeight/Length: 59 inBMI: 32ALLERGIES: Darvacet, Demerol, Microdentin Date/Time Medication Administered Medication OrderedGiven GI COCKTAIL [PO] (CALCIUM GI Cocktail PO 50 mL with12:40 12/01/2020 CARBONATE ANTACID) Lidocaine Viscous Mouth/ThroatMyles Landis R.N. Dose: 50 mL Oral Suspension PO 10 mL, Maalox Oral 30 mL, Oral 10 mLGiven ATIVAN [IM] (LORAZEPAM) Ativan IM 1 mg (HIGH ALERT14:25 12/01/2020 Dose: 1 mg IM MEDICATION, NOW)Myles Landis R.N. Name Value Range Interpretation Code Description Data Melanie rce(s) Supporting Document(s) ID Date Data Source [id number] 12/01/2020 12:20:00 PM EDT [facility] 1 General Instructions [facility] Emergency Department [address] [place] [address] Phone #: ext- [phone] 12/01/2020 12:07 Patient: [...] an ear, nose and throat physician (an hatchery employee)and a photographic lithographer in three days. Reason for referral: evaluation. Summary of care provided to patientvia paper. ADDITIONAL INFORMATIONDysphagia (Adult) 2 General Instructions [facility] Emergency Department [address] [place] [address] Phone #: ext- [phone] 12/01/2020 12:07 Patient: FABIANO RAMIREZ [facility]#: [id number] Sex: F : 1955 Age: 65y Dysphagia [...] evaluate you using X-ray, 3 General Instructions [facility] Emergency Department [address] [place] [address] Phone #: ext- [phone] 12/01/2020 12:07 Patient: FABIANO RAMIREZ [facility]#: [id number] Sex: F : 1955 Age: 65yspecial esophagus [...] for any of the followin General Instructions [facility] Emergency Department [address] [place] [address] Phone #: vfm- [phone] 12/01/2020 12:07 Patient: FABIANO RAMIREZ Sex: F : 1955 Age: 65y Inability to keep down food or liquid Symptoms that get worse quickly Coughing that won't stop Continuing to lose weight Fever of 100.4F (38C) or higher, or as directed by your healthcare provider Other symptoms as indicated by your healthcare providerCall 46[facility] 98 for any of the following: Trouble breathing Inability to talk Drooling, inability to control secretions Loss of consciousness [id number] [employer] [place] [address]. All rights reserved. This information is not intended as asubstitute for professional medical care. Always follow your healthcare professional's instructions. You have been given the following additional information: Dysphagia (Adult)(Electronically signed by Karen Saucedo 12/01/2020 19:10) Name Value Range Interpretation Code Description Data Melanie rce(s) Supporting Document(s) ID Date Data Source [id number] 12/01/2020 12:20:00 PM EDT [facility] 1 Clinical Report - Nurses [facility] Emergency Department [address] [place] [address] Phone #: [phone]- [phone] 12/01/2020 12:07 Patient: FABIANO RAMIREZ Sex: F : 1955 Age: 65yTRIAGEArrived by EMS. Historian: EMS and patient.Acuity: LEVEL 4.Chief Complaint: SORE THROAT.This started yesterday. 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 See report.SEPSIS SCREEN: SIRS SCREEN NEGATIVE: heart rate greater than 90. SEPSIS SCREEN NEGATIVE.No suspected or confirmed signs of infection present.THA COMA SCORE: 15- eyes open- spontaneous (4); best verbal response- oriented (5); bestmotor response- obeys commands (6). --12:26 12/01/20 Naresh Guzman RN12:12/01/20. BP: 137/77. MAP: 97. HR: 99. RR: 20. O2 saturation: 97% on room air. Temp: 98.3 F(oral). Pain level now: 01/27. --12:12/01/20 Naresh Guzman RN.Weight: 71.9 kg measured. Height/Length: 59 inches Per Patient. BMI: 32. --12:12/01/20 Naresh Guzman RN.MedicationsAlbuterol Sulfate Inhalation 2 unit doses. Eliquis Oral. --12:28 12/01/20 Naresh Guzman RN HYDROcodone-Acetaminophen Oral (Solution 7.5-325 mg/15mL), as needed. KlonoPIN Oral 0.25 mg, at bedtime. --12:28 12/01/20 Naresh Guzman RN LaMICtal Oral (Tablet 25 mg), 2x a day. Meclizine HCl Oral 50 mg, 2x a day. MiraLax Oral 1 packet. Mot rin IB Oral 400, as needed. Potassium Chloride Oral (Packet 20 meq), 2x a day. Promethazine HCl Oral (Tablet 25 mg), as needed. Sudafed Oral 60 mg, 2x a day. ZyPREXA Oral (Tablet 10 mg), at bedtime. --12:28 12/01/20 Naresh Guzman RN.AllergiesDarvacet. 2 Clinical Report - Nurses [facility] Emergency Department [address] [place] [address] Phone #: ext- [phone] 12/01/2020 12:07 Patient: FABIANO RAMIREZ Sex: F : 1955 Age: 65y Demerol. Patriaentin. --12:28 12/01/20 Naresh Guzman RN. History PAST MEDICAL HX: [...] in lowest 3 Clinical Report - Nurses [facility] Emergency Department [address] [place] [address] Phone #: ext- [phone] 12/01/2020 12:07 Patient: FABIANO RAMIREZ Sex: F : 1955 Age: 65y position. [...] sleep for CT. RN escorted back to CT and comple laureen.). --15:08 12/01/20 Myles Landis R.N.DISPOSITION / DISCHARGE No learning barriers present. Discharge instructions provided and reviewed with the patient and the patient left prior to discharge education being provided. Patient verbalized understanding. Written instructions provided in [place]. The patient was discharged by the physician. She was discharged home. She left ambulatory. [employer] driving. --16:49 12/01/20 Myles Landis R.N. 16:48 12/01/20. BP: 142/86. MAP: 104. HR: 74. RR: 18. O2 saturation: 97%. Temp: deferred. Pain level now: 08/30. --16:49 12/01/20 Myles Landis R.N. Departure time: 16:50 12/01/2020. --16:50 12/01/20 Myles Landis R.N.Locked/Released at 12/01/2020 16:50 by Myles Landis R.N. Name Value Range Interpretation Code Description Data Melanie rce(s) Supporting Document(s) ID Date Data Source [id number] 12/01/2020 12:20:00 PM EDT [facility] 1 Clinical Report - Physicians/Mid Levels [facility] Emergency Department [address] [place] [address] Phone #: ext- [phone] 12/01/2020 12:07 Patient: FABIANO RAMIREZ Sex: F : 1955 Age: 65y Time Seen: 12:28 12/01/2020; initial patient contact, initial documentation. Arrived- By ambulance. Historian- patient. Disposition decision: 16:27 12/01/2020.HISTORY OF PRESENT ILLNESS Chief Complaint: SORE THROAT. FOREIGN BODY SENSATION IN THROAT. 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 It was abrupt in onset and has [...] pain on swallowing. she was seen at [facility] where they did an xray [...] Surgeries: 2 Clinical Report - Physicians/Mid Levels [facility] Emergency Department [address] [place] [address] Phone #: ext- [phone] 12/01/2020 12:07 Patient: FABIANO RAMIREZ Sex: F [...] room air.Temp: 98.3 F. Pain level now: 710. Have been reviewed. Oxygen saturation normal.Appearance: Alert. [...] 3. 3 Clinical Report - Physicians/Mid Levels [facility] Emergency Department [address] [place] [address] Phone #: ext- [phone] 12/01/2020 12:07 Patient: FABIANO RAMIREZ [facility]#: [id number] Sex: F : 1955 Age: 65yLABS, X-RAYS, [...] day. 4 Clinical Report - Physicians/Mid Levels [facility] Emergency Department [address] [place] [address] Phone #: ext- [phone] 12/01/2020 12:07 Patient: FABIANO RAMIREZ [facility]#: [id number] Sex: F : 1955 Age: 65y Meclizine [...] an ear, nose and throat physician (an hatchery employee) and a photographic lithographer in three days. Reason for referral: evaluation. Summary of care provided to patient via paper.(Electronically signed by Karen Saucedo 12/01/2020 19:10) Name Value Range Interpretation Code Description Data [facility](s) Supporting Document(s) ID Date Data Source [id number] 11/04/2020 09:59:00 PM EDT [facility] Name Value Range Interpretation Code Description Data [facility] Supporting Document(s) Appearance, Urine RFX Laboratory test result [facility] ([facility]) PH,Urine RFX 7.0 units 5.0-9.0 [facility] ([facility]) Color, Urine RFX Laboratory test result [facility] ([facility]) Glucose, Urine (Ua) Auto RFX Laboratory test result [facility] Specific [place] Ur Auto RFX 1.013 1.002-1.035 [facility] ([facility]) Protein, Urine Auto RFX Laboratory test result [facility] Ketone, Urine Auto RFX Laboratory test result [facility] ([facility]) Urobilinogen, Urine Auto RFX 0.2 mg/dL 0.0-2.0 [facility] Bilirubin, Urine Auto RFX Laboratory test result [facility] ([facility]) Nitrite, Urine Auto RFX Laboratory test result [facility] ([facility]) Blood, Urine Blood RFX Laboratory test result [facility] ([facility]) Leukocyte Esterase Ur Auto RFX Laboratory test result [facility] ([facility]) RBC, Urine Auto RFX 2 /HPF 0-3 [facility] WBC, Urine Auto RFX 12 /HPF 0-3 [facility] Squam Epithelial Cell Ur Aurfx 1 /HPF 0-6 [facility] ([facility]) Mucus, Urine RFX Laboratory test result [facility] ([facility]) Bacteria, Urine Auto RFX Laboratory test result [facility] ([facility]) Hyaline Cast, Urine Auto RFX 1 /LPF 0-1 M [facility] ([facility]) ID Date Data Source [id number] 11/04/2020 09:59:00 PM EDT [facility] ([facility]) Name Value Range Interpretation Code Description Data Melanie rce(s) Supporting Document(s) Reflex Urine Culture Laboratory test result [facility] ([facility]) <content>FULL REPORT IN LAB NOTES (eCW [...] 1 S</content>
<content></content> ID Date Data Source [id number] 10/29/2020 11:06:00 AM EDT [facility] ([facility]) Name Value Range Interpretation Code Description Data Melanie rce(s) Supporting Document(s) Reflex Urine Culture Laboratory test result [facility] ([facility]) <content>FULL REPORT IN LAB NOTES (eCW [...] 2 S</content>
<content></content> ID Date Data Source [id number] 10/29/2020 11:06:00 AM EDT [facility] Name Value Range Interpretation Code Description Data Melanie rce(s) Supporting Document(s) Appearance, Urine RFX Laboratory test result [facility] ([facility]) PH,Urine RFX 7.0 units 5.0-9.0 [facility] Color, Urine RFX Laboratory test result [facility] ([facility]) Specific [place] Ur Auto RFX 1.012 1.002-1.035 [facility] Protein, Urine Auto RFX Laboratory test result [facility] ([facility]) Glucose, Urine (Ua) Auto RFX Laboratory test result [facility] ([facility]) Urobilinogen, Urine Auto RFX 0.2 mg/dL 0.0-2.0 [facility] Ketone, Urine Auto RFX Laboratory test result [facility] Bilirubin, Urine Auto RFX Laboratory test result [facility] ([facility]) Nitrite, Urine Auto RFX Laboratory test result [facility] ([facility]) Leukocyte Esterase Ur Auto RFX Laboratory test result [facility] ([facility]) WBC, Urine Auto RFX 29 /HPF 0-3 [facility] Blood, Urine Blood RFX Laboratory test result [facility] ([facility]) RBC, Urine Auto RFX 12 /HPF 0-3 [facility] Squam Epithelial Cell Ur Aurfx 1 /HPF 0-6 [facility] ([facility]) Bacteria, Urine Auto RFX Laboratory test result [facility] ([facility]) Hyaline Cast, Urine Auto RFX 1 /LPF 0-1 M [facility] Mucus, Urine RFX Laboratory test result [facility] ([facility]) Amorphous Sediment RFX Laboratory test result [facility] ID Date Data Source [id number] 10/29/2020 10:47:00 AM EDT [facility] Name Value Range Interpretation Code Description Data Melanie rce(s) Supporting Document(s) SARS COVID ANTIGEN NEGATIVE [facility] This lab was ordered by PEYTON vargas nd reported by [facility]. ID Date Data Source [id number] 10/29/2020 10:47:00 AM EDT [facility] ([facility]) Name Value Range Interpretation Code Description Data Melanie rce(s) Supporting Document(s) Laboratory test finding (navigational concept) Laboratory test result [facility] ([facility]) The Tory SARS Antigen ALISTAIR does not diff erentiate between SARS-CoV and SARS-CoV-2. Negative results do not rule out COVID-19 and should not be used as the sole basis for treatment. Negative results should be considered in the context of a patient's recent exposure, history and the presence of clinical signs and symptoms consistent with COVID-19. ID Date Data Source [id number] 10/19/2020 08:54:00 [place] [address] PHONE: [phone] FAX: [phone] Name .................. : CANDIDO MARIO Acct Number.................. : [id number] ROOM. ................. : TR-04 MR Number ................... : [id number] Stay type ............. : E/R Discharge Date......... ... : 10/14/20 Admit Date ......... : 10/13/20 Admit Phys .................... : VIJAYA Date of ....... : 1955 Family Phys ................... : JENNY GARCIA Phone . ................. : [phone] Age ................................ : 65 Film# .................. .:[id number] Sex ................................. : F Unsigned transcriptions are preliminary reports and do not represent a medical or legal document CHEST PORTABLE [id number] COMPLETE:10/14/20 00:54 [facility] [place] Reason(s): cough hemoptysis PORTABLE CHEST X-RAY: [...] By Blane Pfeiffer MD , 10/19/20 08:55, [facility] Transcribe Initials: SHANNAN , Transcribe Date: 10/14/20 13:06, Dictation Date: Copy for: 710 MED REC DISCHARGED Page 1 of 1 Name Value Range Interpretation Code Description Data Melanie rce(s) Supporting Document(s) ID Date Data Source [id number] 10/16/2020 09:15:00 AM EDT [address] [address] RESPIRATORY CARE REPORT ==== ---------NAME------- NUMBER SEX AGE ADMIT DISC. XRAY# F/C KELSEY MARIO [id number] F 65 10/13/20 10/14/20 [id number] MB4 E/R DATE OF : 1955 M/R# [id number] #: [id number] TR-04 LOCATION: [facility] [address] COMPLETE:10/14/20 0 0:29 T [address] PHYSICIAN: VIJAYA Name Value Range Interpretation Code Description Data Melanie rce(s) Supporting Document(s) ID Date Data Source [id number] 10/13/2020 11:01:00 PM EDT [facility] 1 OrderSheet [facility] Emergency Department [address] [place] [address] Phone #: ext- [phone] 10/13/2020 23:01 Patient: FABIANO RAMIREZ Sex: F : 1955 Age: 65yWEIGHT:91.6 kg (M) HEIGHT:62 inches (S) BMI:37.0ALLERGIES: Darvacet, Demerol, MicrodentinDIAGNOSIS: Urinary tract infectious disease, CoughLAB ORDERSOrder Description Priority Entered Acknowledged InitialedBlood Culture STAT 23:47 10/13/2020 00:03 10/14/2020q10m X2 (Karen Olvera Gregory23:47 10/13/2020) ;Blood Culture STAT 23:47 10/13/2020 00:03 10/14/2020q10m X2 (Karen Olvera Gregory23:57 10/13/2020) ;CBC w Diff STAT 23:47 10/13/2020 23:59 Vijaya Carney Victoria Gregory ;CMP STAT 23:47 10/13/2020 23:59 Vijaya Carney Victoria Gregory ;Culture, Urine STAT 23:47 10/13/2020 00:19 10/14/2020(Urine, Clean Karen Saucedo VirginiaCatch) ;Lactic Acid STAT 23:47 10/13/2020 23:59 Vijaya Carney Victoria Gregory ;PT/INR STAT 23:47 10/13/2020 00:00 10/14/2020 Karen Saucedo Gregory ;PT/PTT STAT 23:47 10/13/2020 Initialed: 00:00 10/14/2020 Noam Carney Victoria Cancelled: Duplicate Order 00:05 ; 10/14/2020 Karen SaucedoTroponin-T STAT 23:47 10/13/2020 00:00 10/14/2020 Karen Saucedo Gregory ;Urinalysis (Clean STAT 23:47 10/13/2020 00:18 10/14/2020atch) Karen Saucedo Virginia ;Venous Blood Gas STAT 23:47 10/13/2020 Initialed: 23:50 Karen Saucedo Victoria Cancelled: Wrong Order 23:50 ; Karen Saucedo 2 OrderSheet [facility] Emergency Department [address] [place] [address] Phone #: ext- [phone] 10/13/2020 23:01 Patient: FABIANO RAMIREZ Sex: F : 1955 Age: 65yCRP STAT 23:47 10/13/2020 00:00 10/14/2020 Karen Saucedo Gregory ;ABG STAT 23:47 10/13/2020 Cancelled: Wrong Order 00:01 Karen Saucedo 10/14/2020 Karen Saucedo ;Magnesium STAT 23:47 10/13/2020 00:00 10/14/2020 Karen Saucedo Gregory ;D-Dimer STAT 23:47 10/13/2020 00:00 10/14/2020 Karen Saucedo Gregory ;Venous Blood Gas STAT 00:01 10/14/2020 00:02 Vijaya Carney Victoria Gregory ;BNP STAT 01:50 10/14/2020 01:53 Vijaya Lerner Victoria Laura R.NFreya ;DIAGNOSTIC STUDY ORDERSOrder Description Priority Entered Acknowledged InitialedChest Portable 1 STAT 23:47 10/13/2020 00:44 10/14/2020View (Oxygen? Karen Saucedo Gregory(Yes)) ; Reason for Study: ciugh hemoptysisCT CTA CHEST STAT 01:50 10/14/2020 Ack'd: 01:53 02:35 Yann,(NONCOR) W CON Karen Saucedo Laura Laura R.N.INC PP ; R.N.(Oxygen?(No))(IV?(Yes)) Reason for Study: hemoptysisMEDICATION/IV/DRIP/FLUID ORDERSOrder Description Priority Entered Acknowledged InitialedRocephin 01:49 10/14/2020 01:56 Angelika,(1gm/50mL) IVPB Karen Saucedo1000 mg with ;Dextrose 50 mlspike bag (D5W)GENERAL ORDERSOrder Description Priority Entered Acknowledged InitialedAccucheck 23:47 10/13/2020 23:59 Angelika, 3 OrderSheet [facility] Emergency Department [address] [place] [address] Phone #: ext- [phone] 10/13/2020 23:01 Patient: FABIANO RAMIREZ Sex: F : 1955 Age: 65y Karen Saucedo ;Blood Pressure 23:47 10/13/2020 23:59 Angelika,Monitor Karen Saucedo ;EKG 23:47 10/13/2020 00:03 10/14/2020 Karen Saucedo Gregory ;NPO 23:47 10/13/2020 23:59 Vijaya Carney Victoria Gregory ;Oxygen titrate to 23:47 10/13/2020 23:59 Angelika,92% Karen Saucedo ;Pulse oximeter 23:47 10/13/2020 23:59 Angelika,(Continuous) Karen Saucedo ;Saline Lock 23:47 10/13/2020 23:59 Vijaya Carney Victoria Gregory ;Vitals 23:47 10/13/2020 23:59 Vijaya Carney Victoria Gregory ;[Electronically signed by Noam Carney (04:25 10/14/2020)][Electronically signed by Karen Saucedo (07:57 10/15/2020)][Electronically locked by Noam Carney (04:25 10/14/2020)] Name Value Range Interpretation Code Description Data Melanie rce(s) Supporting Document(s) ID Date Data Source [id number] 10/13/2020 11:01:00 PM EDT [facility] 1 Medication Reconciliation Report [facility] Emergency Department [address] [place] [address] Phone #: ext- [phone] 10/13/2020 23:01 Patient: [...] Home Medication information:patient 2 Medication Reconciliation Report [facility] Emergency Department [address] [place] [address] Phone #: ext- [phone] 10/13/2020 23:01 Patient: [...] Dispense 14 tablet. Refills: 0.Substitution permitted.Pharmacy - [facility] - [address] ; [place] [address]. . -- Karen Saucedo Name Value Range Interpretation Code Description Data Melanie rce(s) Supporting Document(s) ID Date Data Source [id number] 10/13/2020 11:01:00 PM EDT [facility] 1 Medication Administration Record [facility] Emergency Department [address] [place] [address] Phone #: ext- [phone] 10/13/2020 23:01 Patient: FABIANO RAMIREZ Sex: F : 1955 Age: 65yWeight: 91.6 kgHeight/Length: 62 inBMI: 37ALLERGIES: Darvacet, Demerol, Microdentin Date/Time Medication Administered Medication OrderedStart ROCEPHIN (1GM/50ML) [IVPB] Rocephin (1gm/50mL) IVPB [id number] 10/14/2020 (CEFTRIAXONE SODIUM) mg with Dextrose 50 ml spike Noam Ramesh, Dose: 1 gm IVPB (D5W)---- Rate: 100 mL/hr over 30 minute(s)Stop Dispensed: 50 mL bag02:58 10/14/2020 Site: #1 left Noam Estrada, Name Value Range Interpretation Code Description Data Melanie rce(s) Supporting Document(s) ID Date Data Source [id number] 10/13/2020 11:01:00 PM EDT [facility] 1 General Instructions [facility] Emergency Department [address] [place] [address] Phone #: ext- [phone] 10/13/2020 23:01 Patient: [...] Dispense 14 tablet. Refills: 0.Substitution permitted.Pharmacy - [facility] #62 - [address] ; [place] [address]. .Follow-up:Follow up with your healthcare provider Friday if not better. Reason for referral: evaluation. Summary ofcare provided to patient via paper. ADDITIONAL INFORMATION 2 General Instructions [facility] Emergency Department [address] [place] [address] Phone #: ext- [phone] 10/13/2020 23:01 Patient: FABIANO RAMIREZ Sex: F [...] prescribed for this condition. 3 General Instructions [facility] Emergency Department [address] [place] [address] Phone #: ext- [phone] 10/13/2020 23:01 Patient: [...] loosen secretions in the nose and lungs. Yrpe-qih-iqeznyv cold medicines will not shorten the length of time you're sick, but they may be helpful for the following symptoms: cough, sore throat, and nasal and sinus congestion. If you take prescription medicines, ask your healthcare provider or pharmacist which hjfh-gyh-snoarhx medicines are safe to use. (Note: Don't [...] wheezing, or difficulty breathing 4 General Instructions [facility] Emergency Department [address] [place] [address] Phone #: ext- [phone] 10/13/2020 23:01 Patient: FABIANO RAMIREZ Sex: F : 1955 Age: 65y Coughing up blood Very severe pain with swallowing, especially if it goes along with a muffled voice [employer]. [address] [place] [address]. All rights reserved. This information is not [...] of cystitis isan infection. 5 General Instructions [facility] Emergency Department [address] [place], [place] [address] Phone #: [phone] qsy- [phone] 10/13/2020 23:01 Patient: FABIANO RAMIREZ Sex: F [...] put in Older age 6 General Instructions [facility] Emergency Department [address] [place] [address] Phone #: ext- [phone] 10/13/2020 23:01 Patient: FABIANO RAMIREZ Sex: F [...] and vegetables, and fiber. 7 General Instructions [facility] Emergency Department [address] [place] [address] Phone #: ext- [phone] 10/13/2020 23:01 Patient: FABIANO RAMIREZ Sex: F [...] the results will affect your treatment.Call 911Call [phone] if any of the following occur: Trouble [...] outer vaginal area (labia) 8 General Instructions [facility] Emergency Department [address] [place] [address] Phone #: ext- [phone] 10/13/2020 23:01 Patient: FABIANO RAMIREZ Sex: F : 1955 Age: 65y [id number] [employer] [place], [place] [address]. All rights reserved. This information is not intended as asubstitute for professional medical care. Always follow your healthcare professional's instructions. You have been given the following additional information: URI, Viral, No Abx (Adult) Bladder Infection, Female (Adult)(Electronically signed by Karen Saucedo 10/15/2020 07:57) Name Value Range Interpretation Code Description Data Melanie rce(s) Supporting Document(s) ID Date Data Source [id number] 10/13/2020 11:01:00 PM EDT [facility] 1 Clinical Report - Nurses [facility] Emergency Department [address] [place] [address] Phone #: ext- [phone] 10/13/2020 23:01 Patient: [...] No acute distress.Onset. 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 2 Clinical Report - Nurses [facility] Emergency Department [address] [place] [address] Phone #: ext- [phone] 10/13/2020 23:01 Patient: FABIANO RAMIREZ Sex: F : 1955 Age: 65y Demerol. Patriaentin. --23:27 10/13/20 Claudia Miguel RN. Medication/allergy information [...] pre- and 3 Clinical Report - Nurses [facility] Emergency Department [address] [place] [address] Phone #: ext- [phone] 10/13/2020 23:01 Patient: FABIANO RAMIREZ Sex: F : 1955 Age: 65y post-medication administration. Information reviewed with patient including reason for taking this medication, signs of allergic reaction and precautions. Verbalizes understanding. --01:56 10/14/20 Noam Carney Patient returned from [place] by wheelchair with mask and chief radiology. --02:36 10/14/20 Roxanne Lerner R.N. 02:37 10/14/20. [...] Patient verbalized understanding. Written instructions provided in [place]. No treatment instructions. The patient was discharged by the physician. She was discharged home. She left ambulatory and via taxi. 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 --04:24 10/14/20 Noam Carney.Locked/Released at 10/14/2020 04:25 by Noam Carney Name Value Range Interpretation Code Description Data Melanie rce(s) Supporting Document(s) ID Date Data Source [id number] 10/13/2020 11:01:00 PM EDT [facility] 1 Clinical Report - Physicians/Mid Levels [facility] Emergency Department [address] [place] [address] Phone #: ext- [phone] 10/13/2020 23:01 Patient: FABIANO RAMIREZ Sex: F [...] surgery. 2 Clinical Report - Physicians/Mid Levels [facility] Emergency Department [address] [place] [address] Phone #: ext- [phone] 10/13/2020 23:01 Patient: FABIANO RAMIREZ Sex: F [...] Interpretation 3 Clinical Report - Physicians/Mid Levels [facility] Emergency Department [address] [place] [address] Phone #: ext- [phone] 10/13/2020 23:01 Patient: FABIANO RAMIREZ Sex: F [...] (Reference) CT CTA CHEST NON-CORONARY W CON [facility] [address] [place] [address] ---------NAME--------- NUMBER SEX AGE ADMIT DISC. XRAY# F/C TYPE CANDIDO MARIO [id number] F 65 10/13/20 [id number] E/R DATE OF : 1955 M/R# [id number] #: [id number] TR-04 LOCATION: TRANSCRIBED: 10/14/20 3:[address] CTA CHEST NON-CORONARY W [id number] COMPLETED:10/14/20 2:52 [facility] [place] Reason(s): hemoptysis -- PHYSICIAN: VIJAYA -- -- R A D I O L O G Y R E P O R T -- PATIENT HISTORY: hemopstysis. isovue 370 75 ml [id number] exp 09/12. estimated dose 394.5. actual dose 395.6 mGy*cm. Time Out performed. Correct patient with 2 identifiers, type and amount of contrast used, correct body part and side all verified prior to examination. / COR SLAB MIP (DICOM Hx) EXAM: CTA Chest with Intravenous Contrast for PE evaluation -- CLINICAL HISTORY:hemopstysis. isovue 370 75 ml [id number] exp 09/12. estimated dose 394.5. actual dose [...] the thoracic aorta. 4 Clinical Report - Physicians/Mid [facility] Emergency Department [address] [place] [address] Phone #: ext- [phone] 10/13/2020 23:01 Patient: [...] 7.0) 5 Clinical Report - Physicians/Mid Levels [facility] Emergency Department [address] [place] [address] Phone #: ext- [phone] 10/13/2020 23:01 Patient: [...] Male GFR Interprentation 20-49 yrs >60 mL/min Qdkkgp89-83 yrs >56 mL/min Normal 60-69 yrs >49 mL/min Normal 70-79yrs>42 mL/min Normal 80 and above >35 mL/min Normal Female GFRInterpretation 20-39 yrs >60 mL/min Normal 40-49 yrs >58 mL/minNormal 50-59 yrs >51 mL/min Normal 60-69 yrs >45 mL/min Uiptec68-67 yrs >39 mL/min Normal 80 and above >32 mL/min NormalLactic Acid: (OLE: 10/14/2020 00:01) ( [facility] 10/14/2020 00:22) Final results Test Result Flag [...] VenousThrombosis, Pulmonary Embolus, Tissue heart valves, Acute UT, Atrial Fibrillation, Valvular heartdisease and recurrent Systemic Embolism. - International Normalized Ratio (INR): 2.5 - 3.5 6 Clinical Report - Physicians/Mid Levels [facility] Emergency Department [address] [place] [address] Phone #: ext- [phone] 10/13/2020 23:01 Patient: FABIANO RAMIREZ Sex: F : 1955 Age: 65yfor Mechanical Prosthetic valve.PT/PTT: (OLE: 10/13/2020 23:47) ( MsgRcvd 10/14/2020 00:06) CanceledTroponin-T: (OLE: 10/14/2020 00:01) ( MsgRcvd 10/14/2020 00:39) Final results Test Result Flag Units (Reference) TROPONIN T <0.01 NG/ML (0.00 - 0.10) TROPONIN T0.1 ng/ml Recommended as the clinical threshold value forTroponin T.Urinalysis: (OLE: 10/13/2020 23:45) ( MsgRcvd 10/14/2020 00:22) Final results Test [...] NONEVenous Blood Gas: (OLE: 10/13/2020 23:47) ( MsgRcvd 10/13/2020 23:50) CanceledCRP: (OLE: 10/14/2020 00:01) ( MsgRcvd 10/14/2020 00:40) Final results Test Result Flag Units (Reference) CRP-HS 11.76 H MG/L (1.00 - 3.00) CDC/S HS-CRP CUT-OFF: RELATIVE RISK: <1.0 mg/LLow 1.0 - 3.0 mg/L Average >3.0 mg/LHigh Optimally, the average of HS-CRP results repeated two weeks apart should be used forrisk assessment.ABG: (OLE: 10/13/2020 23:47) ( MsgRcvd 10/14/2020 00:02) CanceledMagnesium: (OLE: 10/14/2020 00:01) ( VtgRcvd 10/14/2020 00:40) Final results Test Result Flag Units (Reference) MAGNESIUM 2.2 MG/DL (1.7 - 2.2)Chest Portable 1 View: (OLE: 10/13/2020 23:47) ( MsgRcvd 10/14/2020 00:54) In ProgressCHEST PORTABLE 7 Clinical Report - Physicians/Mid Levels [facility] Emergency Department [address] [place] [address] Phone #: ext- [phone] 10/13/2020 23:01 Patient: [...] Oral. 8 Clinical Report - Physicians/Mid Levels [facility] Emergency Department [address] [place] [address] Phone #: [phone] ext- [phone] 10/13/2020 23:01 Patient: FABIANO RAMIREZ Sex: F [...] tablet. Refills: 0. Substitution permitted. Pharmacy - [facility] #68 - [address] ; [place] [address]. . Follow-up: Follow up with your healthcare provider Friday if not better. Reason for referral: evaluation. Summary of care provided to patient via paper.(Electronically signed by Karen Saucedo 10/15/2020 07:57) Name Value Range Interpretation Code Description Data Melanie rce(s) Supporting Document(s) ID Date Data Source [id number] 10/14/2020 03:51:00 AM EDT [facility] [address] [place] [address] ---------NAME--------- NUMBER SEX AGE ADMIT DISC. XRAY# F/C TYPE CANDIDO MARIO [id number] F 65 10/13/20 [id number] E/R DATE OF : 1955 M/R# [id number] #: [id number] TR-04 LOCATION: TRANSCRIBED: 10/14/20 3:[address] CTA CHEST NON-CORONARY W [id number] COMPLETED:10/14/20 2:52 [facility] [place] Reason(s): hemoptysis PHYSICIAN: VIJAYA R A D I O L O G Y R E P O R T PATIENT HISTORY:hemopstysis. isovue 370 75 ml [id number] exp 09/12. estimated dose 394.5. actualdose 395.6 mGy*cm.Time Out performed. Correct patient with 2 identifiers, type and amount ofcontrast used, correct body part and side all verified prior to examination. /COR SLAB MIP (DICOM Hx)EXAM: CTA Chest with Intravenous Contrast for PE evaluationCLINICAL HISTORY:hemopstysis. isovue 370 75 ml [id number] exp 09/12. estimated lrpd202.5. actual dose 395.6 mGy*cm. Time Out performed. [...] rce(s) Supporting Document(s) ID Date Data Source [id number] 10/21/2020 06:30:00 AM EDT [facility] Name Value Range Interpretation Code Description Data Melanie rce(s) Supporting Document(s) CULTURE BLOOD [facility] _CULTURE BLOOD_ [place] [address] CLIA# [id number] SEE SCANNED REPORT{ PRELIM ID Date Data Source [id number] 10/14/2020 12:35:00 AM EDT [facility] ([facility]) Name Value Range Interpretation Code Description Data Melanie rce(s) Supporting Document(s) Culture Blood Laboratory test result [facility] ([facility]) _CULTURE BLOOD_ [place] [address] CLIA# [id number] SEE SCANNED REPORT { PRELIM ID Date Data Source [id number] 10/19/2020 11:49:00 AM EDT [facility] [address] Name Value Range Interpretation Code Description Data Melanie rce(s) Supporting Document(s) Bacteria identified in Blood by Culture [facility] NO GROWTH AFTER 5 DAYS ID Date Data Source [id number] 10/21/2020 06:29:00 AM EDT [facility] Name Value Range Interpretation Code Description Data Melanie rce(s) Supporting Document(s) CULTURE BLOOD [facility] _CULTURE BLOOD_ TEST PERFORM ED AT [address] [address] CLIA# [id number] SEE SCANNED REPORT{ PRELIM ID Date Data Source [id number] 10/14/2020 12:04:00 AM EDT [facility] ([facility]) Name Value Range Interpretation Code Description Data Melanie rce(s) Supporting Document(s) Culture Blood Laboratory test result [facility] ([facility]) _CULTURE BLOOD_ TEST PERFORMED AT [facility] [address] [place] [address] CLIA# [id number] SEE SCANNED REPORT { PRELIM ID Date Data Source [id number] 10/14/2020 12:01:00 AM EDT [facility] ([facility]) Name Value Range Interpretation Code Description Data Melanie rce(s) Supporting Document(s) C reactive protein [Mass/volume] in Serum or Plasma by High sensitivity method 11.76 mg/L 1.00-3.00 [facility] ([facility] ) <content>CDC/S HS-CRP CUT-OFF: RELATIVE RISK:</content>
<content><1.0 mg/L Low</content>
<content>1.0 - 3.0 mg/L Average</laron nt>
<content>>3.0 mg/L High</content>
<content>Optimally, the average of HS-CRP results repeated</content>
<content>two weeks apart should be used for risk assessment.</content>
<content></content> Magnesium Serum 2.2 mg/dL 1.7-2.2 [facility] ([facility]) Natriuretic peptide.B prohormone N-Terminal [Mass/volu me] in Serum or Plasma 20 pg/mL 0-125 [facility] ([facility] ) Fibrin D-dimer [Presence] in Platelet poor plasma 0.32 ug/mL 0.27-0.5 0 [facility] ([facility]) ID Date Data Source [id number] 10/14/2020 12:01:00 AM EDT [facility] ([facility]) Name Value Range Interpretation Code Description Data Melanie rce(s) Supporting Document(s) Comprehensive [facility]abo Laboratory test result [facility] ([facility]) COMPREHENSIVE METABOLIC PANEL Sodium 140 meq/L 134-153 [facility] Potassium 3.9 meq/L 3.6-5.0 [facility] Co2 31 meq/L 22-30 [facility] Chloride 102 meq/L 98-107 [facility] BUN 12 mg/dL 7-21 [facility] [facility] Glucose 94 mg/dL 70-99 [facility] Creatinine 0.8 mg/dL 0.7-1.5 [facility] ([facility]) Total Protein 7.0 g/dL 6.3-8.2 [facility] ([facility]) BUN/Creat 15 8-27 [facility] Globulin 2.8 GM/DL 2.4-3.2 [facility] Albumin 4.2 g/dL 3.9-5.0 [facility]) A/G Ratio 1.5 0.8-2.0 [facility]) Calcium 10.1 mg/dL 8.4-10.2 [facility] ([facility]) Total Bili Laboratory test result 0.2-1.3 [facility] ([facility]) Alkaline Phos 62 U/L 38-126 [facility] ([facility]) Sgot/Ast 14 U/L 5-40 [facility] SGPT/Alt 13 U/L 7-56 [facility] ([facility] Anion Gap 7.0 mmol/L 8.0-16.0 [facility] ([facility]) Non-Aa GFR Laboratory test result [facility] ([facility]) Age 65 yrs [facility]) Afr Amer GFR Laboratory test result MEDE NT ([facility]) Male GFR Interprentation 20-49 yrs >60 mL/min [...] >32 mL/min Normal ID Date Data Source [id number] 10/14/2020 12:01:00 AM EDT [facility] ([facility]) Name Value Range Interpretation Code Description Data Melanie rce(s) Supporting Document(s) Troponin T.cardiac [Mass/volume] in Serum or Plasma Laborato ry test result 0.00-0.10 [facility] ([facility]) TROPONIN T 0.1 ng/ml Recommended as the clinical th reshold value for Troponin T. ID Date Data Source [id number] 10/14/2020 12:01:00 AM EDT [facility] ([facility]) Name Value Range Interpretation Code Description Data Melanie rce(s) Supporting Document(s) pCO2 V 56.1 mm/HG 38.0-51.0 [facility] ([facility] pH V 7.37 7.32-7.43 [facility] ([facility]) pO2 V 39.7 mm/HG 30.0-55.0 [facility] Hco3 V 31.5 meq/L 22.0-29.0 [facility] Tco2 V 33.2 meq/L 22.0-29.0 [facility] O2 Sat V 73.4 % 40.0-85.0 [facility] Base Excess 4.9 [facility] ([facility]) ID Date Data Source [id number] 10/14/2020 12:01:00 AM EDT [facility] ([facility]) Name Value Range Interpretation Code Description Data Melanie rce(s) Supporting Document(s) Protime 15.3 s 11.0-15.5 [facility] ([facility]) Inr 1.15 0.93-1.23 [facility] ([facility]) \\BLDo\\INR INTERPRETATION\\BLDx\\ Therapeutic range for Coumadin and related oral a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. -International Normalized Ratio (INR): 2 .0 - 3.0 for Venous Thrombosis, Pulmonary Embolus, Tissue heart valves, Acute UT, Atrial Fibrillation, Valvular heart disease and recurrent Systemic Embolism. -International Normalized Ratio (INR): 2 .5 - 3.5 for Mechanical Prosthetic valve. ID Date Data Source [id number] 10/14/2020 12:01:00 AM EDT [facility] ([facility]) Name Value Range Interpretation Code Description Data Melanie rce(s) Supporting Document(s) Lactate [Mass/volume] in Serum or Plasma 1.4 mmol/L 0.2-2.2 [facility] ([facility]) ID Date Data Source [id number] 10/14/2020 12:01:00 AM EDT [facility] ([facility]) Name Value Range Interpretation Code Description Data Melanie rce(s) Supporting Document(s) CBC W/Automated Diff Laboratory test result [facility] COMPLETE BLOOD COUNT WBC 5.8 10^3/uL 4.2-11.0 [facility] ([facility]) RBC 3.92 10^6/uL 4.20-5.40 [facility] ([facility]) Hematocrit 36.6 % 37.0-47.0 [facility] ([facility]) Hemoglobin 11.9 g/dL 12.0-16.0 [facility] ([facility]) MCV 93.4 fL 81.0-101 [facility] MCH 30.4 pg 27.0-34.0 [facility] RDW 15.5 % 11.5-14.5 [facility] MCHC 32.5 g/dL 31.0-36.0 [facility] ([facility]) Platelets 204 10^3/uL 150-450 [facility] ([facility]) MPV 8.4 fL 7.4-10.4 [facility] Neut 43.7 % 37.0-80.0 [facility] Lymph 45.6 % 25.0-40.0 [facility] [place] 6.2 % 3.0-8.0 [facility] Baso 0.3 % 0.0-2.5 [facility] Eos 4.0 % 0.0-7.0 [facility] %Ig 0.2 % 0.0-0.0 [facility] %NRBC 0.0 % 0.0-0.0 [facility] #Neut 2.54 10^3/uL 2.00-6.90 [facility] ([facility]) #Lymph 2.65 10^3/uL 0.60-3.40 [facility] ([facility]) #[place] 0.36 10^3/uL 0.00-0.90 [facility] ([facility]) #Eos 0.23 10^3/uL 0.00-0.70 [facility] ([facility]) #Baso 0.02 10^3/uL 0.00-0.20 [facility] ([facility]) #Ig 0.01 10^3/uL 0.00-0.10 [facility] ([facility]) #NRBC 0.00 10^3/uL 0.00-0.00 [facility] ([facility]) Manual Diff Laboratory test result [facility] T ([facility]) RBC Morph Laboratory test result [facility] ([facility]) ID Date Data Source [id number] 10/14/2020 02:08:00 AM EDT [facility] Value Range Interpretation Code Description Data Melanie rce(s) Supporting Document(s) BNP 20 PG/ML 0 - 125 [facility] ID Date Data Source [id number] 10/14/2020 12:40:00 AM EDT [facility] Value Range Interpretation Code Description Data Melanie rce(s) Supporting Document(s) Fibrin D-dimer FEU [Mass/volume] in Platelet poor plasma 0.32 ug /mL 0.27 - 0.50 [facility] ID Date Data Source [id number] 10/14/2020 12:39:00 AM EDT [facility] Name Value Range Interpretation Code Description Data Melanie rce(s) Supporting Document(s) Magnesium [Mass/volume] in Serum or Plasma 2.2 MG/DL 1.7 - 2.2 [facility] ID Date Data Source [id number] 10/14/2020 12:39:00 AM EDT [facility] Name Value Range Interpretation Code Description Data Melanie rce(s) Supporting Document(s) C reactive protein [Mass/volume] in Serum or Plasma by High sensitivity method 11.76 MG/L 1.00 - 3.00 H [facility]/S HS-CRP CUT-OFF: RELATIVE RISK: <1.0 mg/L Low 1.0 - 3.0 mg/L Average >3.0 mg/L High Optimally, the average of HS-CRP results repeated two weeks apart should be used for risk assessment. ID Date Data Source [id number] 10/14/2020 12:39:00 AM EDT [facility] Name Value Range Interpretation Code Description Data [facility] Supporting Document(s) COMPREHENSIVE METABOLIC PANEL [facility] COMPREHENSIVE METABOLIC PANEL Sodium [Moles/volume] in Serum or Plasma 140 mEq/L 134 - 153 [facility] Potassium [Moles/volume] in Serum or Plasma 3.9 mEq/L 3.6 - 5.0 [facility] Chloride [Moles/volume] in Serum or Plasma 102 mEq/L 98 - 107 [facility] Carbon dioxide, total [Moles/volume] in Serum or Plasma 31 MEQ/L 22 - 30 H [facility] Glucose [Mass/volume] in Serum or Plasma 94 MG/DL 70 - 99 [facility] BUN 12 MG/DL 7 - 21 [facility] Creatinine [Mass/volume] in Serum or Plasma 0.8 MG/DL 0.7 - 1.5 [facility] BUN/CREAT 15 8 - 27 [facility] Protein [Mass/volume] in Serum or Plasma 7.0 G/DL 6.3 - 8.2 [facility] Albumin [Mass/volume] in Serum or Plasma 4.2 G/DL 3.9 - 5.0 [facility] Globulin [Mass/volume] in Serum by calculation 2.8 GM/DL 2.4 - 3.2 [facility] A/G RATIO 1.5 0.8 - 2.0 [facility] Calcium [Mass/volume] in Serum or Plasma 10.1 MG/DL 8.4 - 10.2 [facility] Bilirubin.total [Mass/volume] in Serum or Plasma <0.7 MG/DL 0.2 - 1.3 [facility] Alkaline phosphatase [Enzymatic activity/volume] in Serum or Plasma 62 U/L 38 - 126 [facility] Aspartate aminotransferase [Enzymatic activity/volume] in Serum or Plasma 14 U/L 5 - 40 [facility] Alanine aminotransferase [Enzymatic activity/volume] in Seru m or Plasma 13 U/L 7 - 56 [facility] Anion gap 3 in Serum or Plasma 7.0 mmol/L 8.0 - 16.0 L [facility] AGE 65 yrs [facility] NON-AA GFR >60 mL/min [facility] AFR AMER GFR >60 [facility] Male GFR In terprentation [...] >32 mL/min Normal ID Date Data Source [id number] 10/14/2020 12:39:00 AM EDT [facility] Name Value Range Interpretation Code Description Data Melanie rce(s) Supporting Document(s) TROPONIN T <0.01 NG/ML 0.00 - 0.10 [facility] TROPONIN T0.1 ng/ml Recommended as the c linical threshold value forTroponin T. ID Date Data Source [id number] 10/14/2020 12:22:00 AM EDT [facility] Name Value Range Interpretation Code Description Data Melanie rce(s) Supporting Document(s) Prothrombin time (PT) 15.3 SECONDS 11.0 - 15.5 [facility] INR in Platelet poor plasma by Coagulation assay 1.15 0.93 - 1. 23 [facility] \\BLDo\\INR INTERPRETATION\\BLDx\\ Therapeutic range for Coumadin and related oral a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. - International Normalized Ratio (INR): 2.0 - 3.0 for Venous Thrombosis, Pulmonary Embolus, Tissue heart valves, Acute UT, Atrial Fibrillation, Valvular heart disease and recurrent Systemic Embolism. -International Normalized Ratio (INR): 2.5 - 3.5 for Mechanical Prosthetic valve. ID Date Data Source [id number] 10/14/2020 12:22:00 AM EDT [facility] Name Value Range Interpretation Code Description Data Melanie rce(s) Supporting Document(s) Lactate [Moles/volume] in Serum or Plasma 1.4 MMOL/L 0.2 - 2.2 [facility] ID Date Data Source [id number] 10/14/2020 12:22:00 AM EDT [facility] Name Value Range Interpretation Code Description Data Melanie rce(s) Supporting Document(s) pH of Serum or Plasma 7.37 7.32 - 7.43 [facility] pCO2 V 56.1 mm/HG 38.0 - 51.0 H [facility] pO2 V 39.7 mm/HG 30.0 - 55.0 [facility] pital Bicarbonate [Moles/volume] in Venous blood 31.5 meq/L 22.0 - 29.0 H [facility] TCO2 V 33.2 meq/L 22.0 - 29.0 H [facility] Base excess in Blood by calculation 4.9 -2.0 - 2.0 H [facility] O2 SAT V 73.4 % 40.0 - 85.0 [facility] ID Date Data Source [id number] 10/14/2020 12:10:00 AM EDT [facility] Name Value Range Interpretation Code Description Data Melanie rce(s) Supporting Document(s) CBC W/AUTOMATED DIFF [facility] COMPLETE BLOOD COUNT Leukocytes [#/volume] in Blood by Automated count 5.8 10^3/uL 4.2 - 1 1.0 [facility] Erythrocytes [#/volume] in Blood by Automated count 3.92 10^6/uL 4. 20 - 5.40 L [facility] Hemoglobin [Mass/volume] in Blood 11.9 g/dL 12.0 - 16.0 L [facility] Hematocrit [Volume Fraction] of Blood by Automated count 36.6 % 3 7.0 - 47.0 L [facility] Erythrocyte mean corpuscular volume [Entitic volume] by Auto mated count 93.4 fL 81.0 - 101 [facility] Erythrocyte mean corpuscular hemoglobin [Entitic mass] by Automated count 30.4 pg 27.0 - 34.0 [facility] Erythrocyte mean corpuscular hemoglobin concentration [Mass/volume] by Automated count 32.5 g/dL 31.0 - 36.0 [facility] Erythrocyte distribution width [Ratio] by Automated count 15.5 % 11.5 - 14.5 H [facility] Platelets [#/volume] in Blood by Automated count 204 10^3/uL 150 - 45 0 [facility] Platelet mean volume [Entitic volume] in Blood by Automated count 8.4 fL 7.4 - 10.4 [facility] Neutrophils/100 leukocytes in Blood by Automated count 43.7 % 37. 0 - 80.0 [facility] Lymphocytes/100 leukocytes in Blood by Manual count 45.6 % 25.0 - 40.0 H [facility] Monocytes/100 leukocytes in Blood by Automated count 6.2 % 3.0 - 8.0 [facility] Eosinophils/100 leukocytes in Blood by Automated count 4.0 % 0.0 - 7.0 [facility] Basophils/100 leukocytes in Blood by Automated count 0.3 % 0.0 - 2.5 [facility] %IG 0.2 % 0.0 - 0.0 H [facility] %NRBC 0.0 % 0.0 - 0.0 [facility] Neutrophils [#/volume] in Blood by Automated count 2.54 10^3/uL 2.00 - 6.90 [facility] Lymphocytes [#/volume] in Blood by Automated count 2.65 10^3/uL 0.60 - 3.40 [facility] Monocytes [#/volume] in Blood by Automated count 0.36 10^3/uL 0.00 - 0.90 [facility] Eosinophils [#/volume] in Blood by Automated count 0.23 10^3/uL 0.00 - 0.70 [facility] Basophils [#/volume] in Blood by Automated count 0.02 10^3/uL 0.00 - 0.20 [facility] #IG 0.01 10^3/uL 0.00 - 0.10 [facility] #NRBC 0.00 10^3/uL 0.00 - 0.00 [facility] MANUAL DIFF NOT INDICATED [facility] RBC MORPH NOT INDICATED [facility] ID Date Data Source [id number] 10/18/2020 02:37:00 PM EDT [facility] Name Value Range Interpretation Code Description Data Melanie rce(s) Supporting Document(s) CULTURE URINE [facility] _CULTURE URINE_$$[id number]$$[id number]$$321230$$680779$$[id number]$$428152$$833336$$856290$$752857$$ 615996$$405645$$791633$$069622$$562030$$066745$$261424$$650251$$120567$$424776$$ 534695$$342952$$452212$$629049$$413531$$732093$$536507$$[id number] -- Continued on next page --Patient: LETTIERE FABIANO Order: Page 2Culture: CULTURE URINE Status: Final ==== -- Continued on next page --Patient: LETTIERE FABIANO Order: [id number] Page 2Culture: CULTURE URINE Status: Prelim ===== -- Continued on next page --Patient: CANDIDO MARIO Order: [id number] Page 2Culture: CULTURE URINE Status: Prelim =====$$[id number]$$[id number] DATE/TIME: 10/18/2020 12:06Culture: CULTURE URINE Status: FinalIsolate 1 Enterococcus faecalis Flag: A . . . . . . .7Greater than 100,000 colony forming units per mL Previous result entered on 10/17/2020 14:24 ET Enterococcus faecalisSusceptibility results being verified. Final report to follow. Previous result entered on 10/17/2020 05:41 ET Microbiological testing to rule out the presence of possible pathogensis in progress.Urine Culture,Comprehensive: [id number] faecalis Flag: APatient: CANDIDO MARIO Order: [id number] Page 3Culture: CULTURE URINE Status: Final ISOLATE 1 Enterococcus faecalis Isolate 1Antibiotic YONG IntUnits ug/mL ----Ciprofloxacin R R . . . . . .185-9Levofloxacin R R . . . . . .94062-2Jylksdohbizvsz S S . . . . . .363-2Penicillin S S . . . . . .6932-8Tetracycline R R . . . . . .496- 0Vancomycin S S . . . . . .524-9P1 Test performed by: [facility] #: [id number] [address] [place] [address] [id number] [facility] [id number] Director : Ross Jeffers MD NPI #:Varnisher Plasticoater : 10/17/[email or web address].SENT REF 10/18/20.0700.XMT.SENT REF 10/18/20.1437.XMT.SENT REF ID Date Data Source [id number] 10/13/2020 11:45:00 PM EDT [facility] Name Value Range Interpretation Code Description Data Melanie rce(s) Supporting Document(s) Urinalysis Laboratory test result [facility] SOURCE: Clean Catch Source Laboratory test result [facility] SOURCE: Clean Catch Clarity Laboratory test result [facility] SOURCE: Clean Catch Color Laboratory test result [facility] SOURCE: Clean Catch Spec [place] 1.010 1.001-1.030 [facility] SOURCE: Clean Catch Glucose Laboratory test result [facility] SOURCE: Clean Catch pH 7 5-9 [facility] SOURCE: Clean Catch Bilirubin Laboratory test result [facility] ([facility]) SOURCE: Clean Catch Ketone Laboratory test result [facility] SOURCE: Clean Catch Protein Laboratory test result [facility] SOURCE: Clean Catch Blood 25 Abnormal (applies to non-numeric res ults) [facility] SOURCE: Clean Catch Nitrite Laboratory test result [facility] SOURCE: Clean Catch Leuk Est 500 Abnormal (applies to non-numeric res ults) [facility] ([facility]) SOURCE: Clean Catch Urobilinogen Laboratory test result [facility] NT ([facility]) SOURCE: Clean Catch Microscopic Laboratory test result [facility] T ([facility]) SOURCE: Clean Catch WBC Laboratory test result Abnormal (applies to non -numeric results) [facility] SOURCE: Clean Catch RBC Laboratory test result [facility] ([facility]) SOURCE: Clean Catch Epithelial Laboratory test result Abnormal (applies to non -numeric results) [facility] ([facility]) SOURCE: Clean Catch Bacteria Laboratory test result Abnormal (applies to non -numeric results) [facility]) SOURCE: Clean Catch ID Date Data Source [id number] 10/13/2020 11:45:00 PM EDT [facility] Name Value Range Interpretation Code Description Data Melanie rce(s) Supporting Document(s) Culture Urine Laboratory test result [facility] SOURCE: Clean Catch ID Date Data Source [id number] 10/14/2020 12:22:00 AM EDT [facility] Name Value Range Interpretation Code Description Data Melanie rce(s) Supporting Document(s) URINALYSIS [facility] alberto URINALYSIS SOURCE R [facility] COLOR yellow NORMAL: Yellow [facility] CLARITY hazy NORMAL: Clear [facility] Specific gravity of Urine by Test strip 1.010 1.001 - 1.030 [facility] pH 7 5 - 9 [facility] Glucose [Mass/volume] in Urine by Test strip NORM NORMAL: Negat [facility] Bilirubin.total [Presence] in Urine by Test strip NEG NORMAL: Negative [facility] Ketones [Presence] in Urine by Test strip NEG NORMAL: Negative [facility] Protein [Mass/volume] in Urine by Test strip NEG NORMAL: Negat [facility] Nitrite [Presence] in Urine by Test strip NEG NORMAL: Negative [facility] BLOOD 25 NORMAL: Negative [facility] Leukocyte esterase [Presence] in Urine by Test strip 500 KANE L: Negative [facility] Urobilinogen [Mass/volume] in Urine by Test strip NOR less deanna n 1.0 mg/dL [facility] MICROSCOPIC See Below [facility] WBC 7 - 10 NORMAL: NONE SEEN A [facility] Erythrocytes [#/volume] in Urine by Test strip 1 - 3 NORMAL: NON E SEEN [facility] EPITHELIAL MODERATE NORMAL: NONE SEEN A [facility] Bacteria [Presence] in Urine sediment by Light microscopy 2+ MOD NORMAL: NONE SEEN A [facility] ID Date Data Source [id number] 09/16/2020 05:22:00 AM EST [facility] ([facility]) Name Value Range Interpretation Code Description Data Melanie rce(s) Supporting Document(s) Bedside Glucose 82 mg/dL 80-115 [facility] ([facility]) ID Date Data Source [id number] 09/16/2020 04:34:00 AM EST [facility] ([facility]) Name Value Range Interpretation Code Description Data Melanie rce(s) Supporting Document(s) Urine Culture Laboratory test result [facility] ([facility]) <content>FULL REPORT IN LAB NOTES (eCW [...] FOR ESBL</content>
<content></content> ID Date Data Source [id number] 09/09/2020 12:43:00 AM EST [facility] ([facility]) Name Value Range Interpretation Code Description Data Melanie rce(s) Supporting Document(s) Laboratory test finding (navigational concept) 39.0 % 38.0-51.0 [facility] ([facility]) Laboratory test finding (navigational concept) 85 mg/dL 70-105 [facility] ([facility]) Laboratory test finding (navigational concept) 4.1 meq/L 3.5-5.1 [facility] ([facility]) Laboratory test finding (navigational concept) 142 meq/L 136-145 [facility] ([facility]) Laboratory test finding (navigational concept) 5.1 mg/dL 4.5-5.3 [facility] ([facility]) Laboratory test finding (navigational concept) 106 meq/L 98-109 [facility] ([facility]) Laboratory test finding (navigational concept) 18 mg/dL 8-26 [facility] ([facility]) Laboratory test finding (navigational concept) 29.0 MM/L 23.0-27.0 [facility] Laboratory test finding (navigational concept) 0.9 mg/dL 0.6-1.3 [facility] ([facility]) ID Date Data Source [id number] 09/09/2020 12:37:00 AM EST [facility] ([facility]) Name Value Range Interpretation Code Description Data Melanie rce(s) Supporting Document(s) Lipoprotein lipase [Enzymatic activity/volume] in Serum or P lasma 141 U/L 73-393 [facility] ([facility]) ID Date Data Source [id number] 09/09/2020 12:37:00 AM EST [facility] ([facility]) Name Value Range Interpretation Code Description Data Melanie rce(s) Supporting Document(s) Ast/Sgot 10 U/L 7-37 [facility] Alt/SGPT 16 U/L 12-78 [facility] Alkaline Phosphatase 60 U/L 45-117 [facility] ([facility]) Bilirubin,Total 0.2 mg/dL 0.2-1.0 [facility] ([facility]) Bilirubin,Direct Laboratory test result 0.0-0.2 [facility] ([facility]) Total Protein 7.2 GM/DL 6.4-8.2 [facility] ([facility]) Albumin 3.2 GM/DL 3.2-5.2 [facility] Albumin/Globulin Ratio 0.8 1.2-2.2 [facility] ([facility]) ID Date Data Source [id number] 09/09/2020 12:37:00 AM EST [facility] ([facility]) Name Value Range Interpretation Code Description Data Melanie rce(s) Supporting Document(s) White Blood Count 5.2 10 4.0-10.0 [facility] ([facility]) Hemoglobin 11.7 g/dL 12.0-15.5 [facility] Red Blood Count 4.06 10 4.00-5.40 [facility] ([facility]) Hematocrit 38.6 % 36.0-47.0 [facility] Mean Corpuscular Volume 95.1 fl 80.0-96.0 [facility] ([facility]) Mean Corpuscular Hemoglobin 28.8 pg 27.0-33.0 [facility] ([facility]) Mean Corpuscular HGB Conc 30.3 g/dL 32.0-36.5 [facility] ([facility]) Platelet Count, Automated 180 10 150-450 [facility] ([facility]) Red Cell Distribution Width 14.7 % 11.5-14.5 [facility] ([facility]) Neutrophils % 50.9 % 36.0-66.0 [facility] ([facility]) Lymph % 37.5 % 24.0-44.0 [facility] [place] % 7.9 % 2.0-8.0 [facility] Eos % 3.3 % 0.0-3.0 [facility] Baso % 0.2 % 0.0-1.0 [facility] Immature Granulocyte % 0.2 % 0-3.0 [facility] ([facility]) Nucleated Red Blood Cell % 0.0 % 0-0 [facility] ([facility]) Neutrophils # 2.6 10 1.5-8.5 [facility] ([facility]) Lymph # 1.9 10 1.5-5.0 [facility] [place] # 0.4 10 0.0-0.8 [facility] Eos # 0.2 10 0.0-0.5 [facility] Baso # 0.0 10 0.0-0.2 [facility] ID Date Data Source [id number] 08/12/2020 08:01:00 AM EST [facility] ([facility]) Name Value Range Interpretation Code Description Data Melanie rce(s) Supporting Document(s) Reflex Urine Culture Laboratory test result [facility] ([facility]) <content>FULL REPORT IN LAB NOTES (eCW [...] FOR ESBL</content>
<content></content> ID Date Data Source [id number] 08/12/2020 08:01:00 AM EST [facility] ([facility]) Name Value Range Interpretation Code Description Data Melanie rce(s) Supporting Document(s) Color, Urine RFX Laboratory test result [facility] ([facility]) Appearance, Urine RFX Laboratory test result [facility] ([facility]) PH,Urine RFX 7.0 units 5.0-9.0 [facility] ([facility]) Specific [place] Ur Auto RFX 1.008 1.002-1.035 [facility] ([facility]) Protein, Urine Auto RFX Laboratory test result [facility] ([facility]) Ketone, Urine Auto RFX Laboratory test result [facility] ([facility]) Glucose, Urine (Ua) Auto RFX Laboratory test result [facility] ([facility]) Bilirubin, Urine Auto RFX Laboratory test result [facility] ([facility]) Urobilinogen, Urine Auto RFX 0.2 mg/dL 0.0-2.0 [facility] ([facility]) Nitrite, Urine Auto RFX Laboratory test result [facility] ([facility]) Blood, Urine Blood RFX Laboratory test result [facility] ([facility]) Leukocyte Esterase Ur Auto RFX Laboratory test result [facility] ([facility]) WBC, Urine Auto RFX 9 /HPF 0-3 [facility] ([facility]) Bacteria, Urine Auto RFX Laboratory test result [facility] ([facility]) RBC, Urine Auto RFX 9 /HPF 0-3 [facility] ([facility]) Squam Epithelial Cell Ur Aurfx 5 /HPF 0-6 [facility] ([facility]) Hyaline Cast, Urine Auto RFX 0 /LPF 0-1 M EDENT ([facility]) Mucus, Urine RFX Laboratory test result [facility] ([facility]) Amorphous Sediment RFX Laboratory test result [facility] ([facility]) ID Date Data Source [id number] 08/12/2020 07:52:00 AM EST [facility]) Name Value Range Interpretation Code Description Data Melanie rce(s) Supporting Document(s) Gats Culture (Neg Strep SCR) Laboratory test result [facility] ([facility]) FULL REPORT IN LAB NOTES (eCW and [facility] ). NEGATIVE FOR STREP PYOGENES (GROUP A) ID Date Data Source [id number] 08/12/2020 06:51:00 AM EST [facility] ([facility]) Name Value Range Interpretation Code Description Data Melanie rce(s) Supporting Document(s) Influenza A Amplification Laboratory test result [facility] ([facility]) Negative results do not preclude influen za or RSV virus infection and should not be used as the sole basis for treatment or other patient management decisions. RSV Amplification Laboratory test result [facility] ([facility]) Negative results do not preclude influen za or RSV virus infection and should not be used as the sole basis for treatment or other patient management decisions. Influenza B Amplification Laboratory test result [facility] ([facility]) Negative results do not preclude influen za or RSV virus infection and should not be used as the sole basis for treatment or other patient management decisions. Laboratory test finding (navigational concept) Laboratory test result [facility] ([facility]) A false negative result may occur if [...] pathogens. DISCLAIMER: Testing was performed using the [employer] SARS-CoV-2 test. This test was developed and its performance characteristics determined by [employer]. This test has not been FDA cleared [...] or revoked sooner. ID Date Data Source [id number] 08/12/2020 06:51:00 AM EST [facility] Name Value Range Interpretation Code Description Data Melanie rce(s) Supporting Document(s) SARS coronavirus 2 RNA [Presence] in Res piratory specimen by MILAGROS with probe detection NEGATIVE [facility] This lab was ordered by [facility] a nd reported by [facility]. ID Date Data Source [id number] 07/22/2020 04:54:00 AM EST [facility] ([facility]) Name Value Range Interpretation Code Description Data Melanie rce(s) Supporting Document(s) Reflex Urine Culture Laboratory test result [facility] ([facility]) <content>FULL REPORT IN LAB NOTES (eCW [...] 1 S</content>
<content></content> ID Date Data Source [id number] 07/22/2020 04:54:00 AM EST [facility] Name Value Range Interpretation Code Description Data Melanie rce(s) Supporting Document(s) Color, Urine RFX Laboratory test result [facility] Appearance, Urine RFX Laboratory test result [facility] PH,Urine RFX 7.0 units 5.0-9.0 [facility] ([facility]) Specific [place] Ur Auto RFX 1.005 1.002-1.035 [facility] Protein, Urine Auto RFX Laboratory test result [facility] Glucose, Urine (Ua) Auto RFX Laboratory test result [facility] Urobilinogen, Urine Auto RFX 0.2 mg/dL 0.0-2.0 [facility] Ketone, Urine Auto RFX Laboratory test result [facility] Nitrite, Urine Auto RFX Laboratory test result [facility] Bilirubin, Urine Auto RFX Laboratory test result [facility] ([facility]) Leukocyte Esterase Ur Auto RFX Laboratory test result [facility] ([facility]) Blood, Urine Blood RFX Laboratory test result [facility] ([facility]) WBC, Urine Auto RFX 11 /HPF 0-3 [facility] ([facility]) RBC, Urine Auto RFX 1 /HPF 0-3 [facility] ([facility]) Squam Epithelial Cell Ur Aurfx 0 /HPF 0-6 [facility] ([facility]) Bacteria, Urine Auto RFX Laboratory test result [facility] ([facility]) Hyaline Cast, Urine Auto RFX 0 /LPF 0-1 M [facility] ([facility]) Mucus, Urine RFX Laboratory test result [facility] ([facility]) ID Date Data Source [id number] 07/01/2020 06:35:00 AM EST [facility] 1 OrderSheet [facility] Emergency Department [address] [place] [address] Phone #: ext- [phone] 07/01/2020 06:35 Patient: FABIANO RAMIREZ Sex: F : 1955 Age: 64yWEIGHT:76.2 kg (M)ALLERGIES: Darvacet, Demerol, MicrodentinCHIEF COMPLAINT: dysuriaDIAGNOSIS: Urinary tract infectious diseaseLAB ORDERSOrder Description Priority Entered Acknowledged InitialedUrinalysis (Clean STAT 06:47 07/01/2020 06:54 Tamia Hemphill) Tamia EganN. R.N.; Per protocol; Henri Boyle PhysicianCulture, Urine [...] rce(s) Supporting Document(s) ID Date Data Source [id number] 07/01/2020 06:35:00 AM EST [facility] 1 Medication Reconciliation Report [facility] Emergency Department [address] [place] [address] Phone #: ext- [phone] 07/01/2020 06:35 Patient: [...] the Emergency Department: 2 Medication Reconciliation Report [facility] Emergency Department [address] [place] [address] Phone #: ext- [phone] 07/01/2020 06:35 Patient: FABIANO RAMIREZ Sex: F : 1955 Age: 64yNone.The following Medications were prescribed to the patient:ciprofloxacin 250 mg tablet Take 1 tablet twice a day for 7 days -- Dispense 14 tablet. Refills: 0.Substitution permitted.Pharmacy - [facility] - [address] ; [place] [address]. . -- Xavier Robertson Physician Name Value Range Interpretation Code Description Data [facility](s) Supporting Document(s) ID Date Data Source [id number] 07/01/2020 06:35:00 AM EST [place] [address] Medication Administration Record [facility] Emergency Department [address] [place] [address] Phone #: ext- [phone] 07/01/2020 06:35 Patient: FABIANO RAMIREZ Sex: F : 1955 Age: 64yWeight: 76.2 kgHeight/Length: 59 inBMI: 34ALLERGIES: Darvacet, Demerol, MicrodentinDate/Time Medication Administered Medication Ordered Name Value Range Interpretation Code Description Data Melanie rce(s) Supporting Document(s) ID Date Data Source [id number] 07/01/2020 06:35:00 AM [facility] 1 General Instructions [facility] Emergency Department [address] [place] [address] Phone #: ext- [phone] 07/01/2020 06:35 Patient: [...] Dispense 14 tablet. Refills: 0.Substitution permitted.Pharmacy - [facility] #[facility] - [address] ; [place] [address]. .Follow-up:Follow up with your healthcare provider in four days. Call for an appointment.Understanding of the discharge instructions v erbalized by patient. ADDITIONAL INFORMATION 2 General Instructions [facility] Emergency Department [address] [place] [address] Phone #: ext- [phone] 07/01/2020 06:35 Patient: [...] or burning when urinating 3 General Instructions [facility] Emergency Department [address] [place] [address] Phone #: ext- [phone] 07/01/2020 06:35 Patient: [...] Fluid loss (dehydration) Constipation Having sex 4 [facility] Emergency Department [address] [place] [address] Phone #: ext- [phone] 07/01/2020 06:35 Patient: [...] flush out your bladder. 5 General Instructions [facility] Emergency Department [address] [place] [address] Phone #: gig- [phone] 07/01/2020 06:35 Patient: FABIANO RAMIREZ Sex: F [...] if the results will affect your treatment.Call [phone] [phone] if any of the following occur: Trouble [...] in the outer vaginal area (labia) [employer]. [address] [place] [address]. All rights reserved. This information is not intended as asubstitute for professional medical care. Always follow your healthcare professional's instructions. You have been given the following additional information: Bladder Infection, Female (Adult) 6 General Instructions [facility] Emergency Department [address] [place] [address] Phone #: ext- [phone] 07/01/2020 06:35 Patient: FABIANO RAMIREZ Sex: F : 1955 Age: 64y(Electronically signed by Xavier Robertson, Physician 07/01/2020 08:41) Name Value Range Interpretation Code Description Data Melanie rce(s) Supporting Document(s) ID Date Data Source [id number] 07/01/2020 06:35:00 AM [facility] 1 Clinical Report - Nurses [facility] Emergency Department [address] [place] [address] Phone #: ext- [phone] 07/01/2020 06:35 Patient: FABIANO RAMIREZ Sex: F : 1955 Age: 64yTRIAGEArrived by EMS. Historian: patient.Triage time: 06:35 07/01/2020. Acuity: LEVEL 4.Chief Complaint: PAINFUL URINATION.Onset. (2 days). 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 No [...] Clements R.N.PROBLEMS: 2 Clinical Report - Nurses [facility] Emergency Department [address] [place] [address] Phone #: ext- [phone] 07/01/2020 06:35 Patient: [...] 07/01/20 Xavier Robertson, Physician.PHYSICAL ASSESSMENTTo room via [facility] .GENERAL / NEURO / PSYCH: Alert. Oriented X 4. Appears anxious.HEENT: Mucous membranes are pink.RESPIRATORY: Respirations not labored.CVS: Capillary refill less than 2 seconds.GI / : No emesis noted. Pain with urination. She has had frequency of urination. Urgency ofurination. Patient is incontinent of urine. 3 Clinical Report - Nurses [facility] Emergency Department [address] [place] [address] Phone #: ext- [phone] 07/01/2020 06:35 Patient: FABIANO RAMIREZ Sex: F [...] rce(s) Supporting Document(s) ID Date Data Source [id number] 07/01/2020 06:35:00 AM [facility] 1 Clinical Report - Physicians/Mid Levels [facility] Emergency Department [address] [place] [address] Phone #: ext- [phone] 07/01/2020 06:35 Patient: [...] Appendectomy. 2 Clinical Report - Physicians/Mid Levels [facility] Emergency Department [address] [place] [address] Phone #: ext- [phone] 07/01/2020 06:35 Patient: FABIANO RAMIREZ [facility]#: [id number] Sex: F : 1955 Age: 64y Hernia [...] Normal skin turgor. 3 Clinical Report - Physicians/[facility] Emergency Department [address] [place] [address] Phone #: ext- [phone] 07/01/2020 06:35 Patient: FABIANO RAMIREZ Sex: F [...] pain.INSTRUCTIONS 4 Clinical Report - Physicians/Mid Levels [facility] Emergency Department [address] [place] [address] Phone #: ext- [phone] 07/01/2020 06:35 Patient: [...] tablet. Refills: 0. Substitution permitted. Pharmacy - [facility] #[facility] - [address] ; [place] [address]. . Follow-up: Follow up with your healthcare provider in four days. Call for an appointment. Understanding of the discharge instructions verbalized by patient.(Electronically signed by Xavier Robertson Physician 07/01/2020 08:41) Name Value Range Interpretation Code Description Data Melanie rce(s) Supporting Document(s) ID Date Data Source [id number] 07/01/2020 06:50:00 AM EST [facility] ([facility]) Name Value Range Interpretation Code Description Data Melanie rce(s) Supporting Document(s) Culture Urine Laboratory test result [facility] ([facility]) <content>_CULTURE URINE_</content>
<content>^$989445</content>
<content>^^675848</content>
<content>$$697865</content>
<content>^^125189</content>
<content>$$ 816176</content>
<content>$$705091</content>
<content>$$587373</content>
<content>$$ 033087</content>
<content>$$012734</content>
<content>$$593585</content>
<content> $$475591</content>
<content>$$417584</content>
<content>$$705295</conten t>
<content>$$793918</content>
<content>$$875863</content>
<content> $$148259</content>
<content>$$776555</content>
<content>$$643565</content>
<content>$$16306 0</content>
<content>$$093960</content>
<content>$$208238</content>
<content>$$380870</content>
<content>$$549995</content>
<content>$$154721</content>
<content>$$ 681060</content>
<content>$$309895</content>
<content>$$177251</content>
<content> ^^644574</content>
<content>$$738499</content>
<content>$$629988</conten t>
<content>$$575659</content>
<content></content>
<content>-- Continued on next page --</content>
<content>Patient: CANDIDO MARIO Order: [id number] Page 2</content>
<content>Culture: CULTURE URINE Status: Final</laron nt>
<content> < /content>
<content></content>
<content></content>
<content>-- Continued on next page --</content>
<content>Patient: CANDIDO MARIO Order: [id number] Page 2</content>
<content>Culture: CULTURE URINE Status: Prelim</content>
<content> < /content>
<content></content>
<content></content>
<content>-- Continued on next page --</content>
<content>Patient: CANDIDO MARIO Order: [id number] Page 2</content>
<content>Culture: CULTURE URINE Status: Prelim</content>
<content> < /content>
<content></content>
<content>$$403481</content>
<content>$ $666393</content>
<content></content>
<content>REPORTED DATE/TIME: 07/05/2020 11:06</content>
<content>Culture: CULTURE [...]
<content></content>
<content></content>
<content> Patient: CANDIDO MARIO Order: [id number] Page 3</content>
<content>Culture: CULTURE URINE Status: Final</content>
[...] S S . . . . . .22987-7</content>
<content>Gentamicin S S . . . . . .267-5</content>
<content>Imipenem S S . . . . . .279-0</content>
<content>Levofloxacin S S . . . . . .60152-1</content>
<content>Meropenem S S . . . . . .6652-2</content>
<content>Nitrofurantoin S S . . . . . .363-2</content>
<content>Piperacillin/Tazobactam S S . . . . . .412-7</content>
<content>Tetracycline S S . . . . . .496-0</content>
<content>Tobramycin S S . . . . . .508-2</content>
<content>Trimethoprim/Sulfa S S . . . . . .516-5</content>
<content></content>
<content>P1 Test performed by: Rose HURTADO #: [id number]</content>
<content>[address]</content>
<content>[id number]</content>
<content>[place] [address]</content>
<content>C4 Planner : Ross Jeffers MD NPI #:</content>
<content>Varnisher Plasticoater :</content>
<content>07/03/20.1551.XMT.SENT REF</content>
<content>07/04/20.1209.XMT.SENT REF</content>
<content>07/05/20.1201.XMT.SENT REF</content>
<content></content>
<content></content> ID Date Data Source [id number] 07/01/2020 06:50:00 AM EST [facility] ([facility]) Name Value Range Interpretation Code Description Data Melanie rce(s) Supporting Document(s) Urinalysis Laboratory test result [facility] ([facility]) URINALYSIS Source Laboratory test [facility] ([facility]) SOURCE: Clean Catch Color Laboratory test result [facility] ([facility]) SOURCE: Clean Catch Clarity Laboratory test result [facility] ([facility]) SOURCE: Clean Catch Spec [place] 1.010 1.001-1.030 [facility] SOURCE: Clean Catch pH 7 5-9 [facility] SOURCE: Clean Catch Glucose Laboratory test result [facility] ([facility]) SOURCE: Clean Catch Bilirubin Laboratory test result [facility] ([facility]) SOURCE: Clean Catch Ketone Laboratory test result [facility] ([facility]) SOURCE: Clean Catch Protein Laboratory test result [facility] ([facility]) SOURCE: Clean Catch Nitrite Laboratory test result [facility] ([facility]) SOURCE: Clean Catch Blood 150 Abnormal (applies to non-numeric res ults) [facility] ([facility]) SOURCE: Clean Catch Leuk Est 500 Abnormal (applies to non-numeric res ults) [facility] ([facility]) SOURCE: Clean Catch Urobilinogen Laboratory test result MEDE NT ([facility]) SOURCE: Clean Catch Microscopic Laboratory test result [facility] T ([facility]) SOURCE: Clean Catch WBC Laboratory test result Abnormal (applies to non -numeric results) [facility] ([facility]) SOURCE: Clean Catch RBC Laboratory test result Abnormal (applies to non -numeric results) [facility] ([facility]) SOURCE: Clean Catch Epithelial Laboratory test result Abnormal (applies to non -numeric results) [facility] ([facility]) SOURCE: Clean Catch Bacteria Laboratory test result Abnormal (applies to non -numeric results) [facility] ([facility]) SOURCE: Clean Catch ID Date Data Source [id number] 07/05/2020 12:01:00 PM EST [facility] Name Value Range Interpretation Code Description Data Melanie rce(s) Supporting Document(s) CULTURE URINE [facility] _CULTURE URINE_$$[id number]$$242483$$490521$$074513$$031525$$864100$$029312$$111799$$162886$$ 864112$$117619$$248659$$404982$$317811$$601656$$024046$$365568$$508911$$246966$$ 183756$$934389$$114715$$892638$$345201$$747521$$244712$$126560 -- Continued on next page --Patient: LETTIERE FABIANO Order: [id number] Page 2Culture: CULTURE URINE Status: Final ==== -- Continued on next page --Patient: LETTIERE FABIANO Order: [id number] Page 2Culture: CULTURE URINE Status: Prelim ===== -- Continued on next page --Patient: LETTIERE FABIANO Order: [id number] Page 2Culture: CULTURE URINE Status: Prelim =====$$430520$$847369PMJPZSEV DATE/TIME: 07/05/2020 11:06Culture: CULTURE URINE Status: FinalIsolate [...] presence of possible pathogensis in progress.Urine Culture,Comprehensive: Q4Euwcpnayiyd coli Flag: APatient: CANDIDO MARIO Order: [id number] Page 3Culture: CULTURE URINE Status: Final ====ISOLATE [...] S S . . . . . .04619-8Rrgepddvaa S S . . . . . .267-5Imipenem S S . . . . . .279- 0Levofloxacin S S . . . . . .29624-8Ayrmudppf S S . . . . . .6652-2Nitrofurantoin S S . . . . . .363-2Piperacillin/Tazobactam S S . . . . . .412-7Tetracycline S S . . . . . .496-0Tobramycin S S . . . . . .508-2Trimethoprim/Sulfa S S . . . . . .516-5P1 Test performed by: [facility] #: [id number] [address] [id number] [facility] [id number] Director : Ross Jeffers MD NPI #:Varnisher Plasticoater : 07/03/20.1551.XMT.SENT REF 07/04/20.1209.XMT.SENT REF 07/05/20.1201.XMT.SENT REF ID Date Data Source [id number] 07/01/2020 07:08:00 AM EST [facility] Name Value Range Interpretation Code Description Data Melanie rce(s) Supporting Document(s) URINALYSIS [facility] yellow NORMAL: Yellow [facility] CLARITY clear NORMAL: Clear [facility] Specific gravity of Urine by Test strip 1.010 1.001 - 1.030 [facility] pH 7 5 - 9 [facility] Glucose [Mass/volume] in Urine by Test strip NORM NORMAL: Negat [facility] Bilirubin.total [Presence] in Urine by Test strip NEG NORMAL: Negative [facility] Ketones [Presence] in Urine by Test strip NEG NORMAL: Negative [facility] Protein [Mass/volume] in Urine by Test strip NEG NORMAL: Negat [facility] Nitrite [Presence] in Urine by Test strip POS NORMAL: Negative [facility] BLOOD 150 NORMAL: Negative [facility] Leukocyte esterase [Presence] in Urine by Test strip 500 KANE L: Negative [facility] Urobilinogen [Mass/volume] in Urine by Test strip NOR less deanna n 1.0 mg/dL [facility] MICROSCOPIC See Below [facility] WBC 5 - 7 NORMAL: NONE SEEN A [facility] Erythrocytes [#/volume] in Urine by Test strip 7 - 10 NORMAL: NON E SEEN A [facility] EPITHELIAL MODERATE NORMAL: NONE SEEN A [facility] Bacteria [Presence] in Urine sediment by Light microscopy 3+ LARGE NORMAL: NONE SEEN A [facility] ID Date Data Source [id number] 06/08/2020 02:10:00 PM EST [facility] ([facility]) Name Value Range Interpretation Code Description Data Melanie rce(s) Supporting Document(s) Erythrocytes [#/volume] in Blood by Automated count 4.16 x10*6/UL 4.2 0-6.30 [facility] ([facility]) Leukocytes [#/volume] in Blood by Automated count 5.4 x10*3/UL 4.1-10 .9 [facility] ([facility]) Hemoglobin [Mass/volume] in Blood 12.5 g/dL 12.0-18.0 [facility] ([facility]) Hematocrit [Volume Fraction] of Blood by Automated count 37.8 % 3 7.0-51.0 [facility] ([facility]) MCHC 33.0 g/dL 31.0-38.0 [facility] MCH 30.1 pg 26.0-32.0 [facility] ([facility] MCV 91.0 fL 80.0-97.0 [facility] ([facility] Platelets [#/volume] in Blood by Automated count 219 x10*3/UL 140-440 [facility] ([facility]) Erythrocyte distribution width [Ratio] by Automated count 14.4 % 11.6-13.7 [facility] ([facility]) MPV 6.9 FL 7.8-11.0 [facility] Lymph % 27.9 % 10.0-58.5 [facility] Neut % 65.6 % 37.0-92.0 [facility] Mid % 6.5 % 1.7-9.3 [facility] Neut # 3.5 x10*3/UL 2.0-7.8 [facility] ([facility]) Lymph # 1.5 x10*3/UL 0.6-4.1 [facility] ([facility]) Mid # 0.4 x10*3/UL 0.1-0.6 [facility] ([facility]) ID Date Data Source [id number] 05/04/2020 01:59:00 PM EDT [facility] ([facility]) Name Value Range Interpretation Code Description Data Melanie rce(s) Supporting Document(s) Triglyceride [Mass/volume] in Serum or Plasma 186 mg/dL 30-150 [facility] ([facility]) Cholesterol [Mass/volume] in Serum or Plasma 180 mg/dL 131-200 [facility] ([facility]) Cholesterol in HDL [Mass/volume] in Serum or Plasma 55 mg/dL 35-60 [facility] ([facility]) Cholesterol in LDL [Mass/volume] in Serum or Plasma by calcu lation 88 CALC 50-159 [facility] ([facility]) ID Date Data Source [id number] 05/04/2020 01:59:00 PM EDT [facility] ([facility]) Name Value Range Interpretation Code Description Data Melanie rce(s) Supporting Document(s) Glucose [Mass/volume] in Serum or Plasma 86 mg/dL 74-99 [facility] ([facility]) 100-125 mg/dL PRE-DIABETES/FASTING >126 mg/dL DIABETES/FASTING Urea nitrogen [Mass/volume] in Serum or Plasma 14 mg/dL 7-18 [facility] ([facility]) Creatinine 1.0 mg/dL 0.6-1.3 [facility] Sodium [Moles/volume] in Serum or Plasma 144 meq/L 136-145 [facility] ([facility]) Chloride [Moles/volume] in Serum or Plasma 105 meq/L 98-107 [facility] ([facility]) Potassium [Moles/volume] in Serum or Plasma 4.0 meq/L 3.5-5.1 [facility] ([facility]) Calcium [Mass/volume] in Serum or Plasma 9.9 mg/dL 8.5-10.1 [facility] ([facility]) Carbon dioxide, total [Moles/volume] in Serum or Plasma 36 meq/L 21 -32 [facility] ([facility]) Total Bilirubin 0.2 mg/dL 0.2-1.0 [facility] ([facility]) Alkaline phosphatase isoenzyme [Units/volume] in Serum or Pl asma 55 mg/dL 46-116 [facility] ([facility]) Aspartate aminotransferase [Enzymatic activity/volume] in Serum or Plasma 23 U/L 15-37 [facility] ([facility] ) Alanine aminotransferase [Enzymatic activity/volume] in Seru m or Plasma 26 U/L 12-78 [facility] ([facility]) Albumin [Mass/volume] in Serum or Plasma 3.7 g/dL 3.4-5.0 [facility] ([facility]) Proteinase 3 Ab [Units/volume] in Serum 7.7 g/dL 6.4-8.2 [facility] ([facility]) Glomerular filtration rate/1.73 sq M pre dicted among blacks [Volume Rate/Area] in Serum or Plasma by Creatinine-based formula (MDRD) Laboratory test result [facility] <content>CHRONIC KIDNEY DISEASE STAGING PER NKF</content>
<content></content>
<content>STAGE I & II GFR >= 60 NORMAL TO MILDLY DECREASED</content>
<content>STAGE III GFR 30-59 MODERATELY DECREASED</content>
<content>STAGE IV GFR 15-29 SEVERELY DECREASED</content>
<content>STAGE V GFR <15 VERY LITTLE GFR LEFT</content>
<content>ESRD GFR <15 ON SECURITY SYSTEM ANALYST</content>
<content></content> A/G Ratio 0.93 CALC 1.00-1.90 [facility] Glomerular filtration rate/1.73 sq M pre dicted among non-blacks [Volume Rate/Area] in Serum or Plasma by Creatinine-based formula (MDRD) 56 mL/min [facility] ([facility]) ID Date Data Source [id number] 05/04/2020 01:59:00 PM EDT [facility] ([facility]) Name Value Range Interpretation Code Description Data Melanie rce(s) Supporting Document(s) Leukocytes [#/volume] in Blood by Automated count 5.8 x10*3/UL 4.1-10 .9 [facility] ([facility]) Hemoglobin [Mass/volume] in Blood 12.1 g/dL 12.0-18.0 [facility] ([facility]) Erythrocytes [#/volume] in Blood by Automated count 4.06 x10*6/UL 4.2 0-6.30 [facility] ([facility]) MCV 91.6 fL 80.0-97.0 [facility] ([facility] Hematocrit [Volume Fraction] of Blood by Automated count 37.2 % 3 7.0-51.0 [facility] ([facility]) MCHC 32.6 g/dL 31.0-38.0 [facility] ([facility]) MCH 29.8 pg 26.0-32.0 [facility] ([facility]) Erythrocyte distribution width [Ratio] by Automated count 14.4 % 11.6-13.7 [facility] ([facility]) Platelets [#/volume] in Blood by Automated count 240 x10*3/UL 140-440 [facility] ([facility]) MPV 7.1 FL 7.8-11.0 [facility] ([facility]) Lymph % 26.4 % 10.0-58.5 [facility] Mid % 7.1 % 1.7-9.3 [facility] Neut % 66.5 % 37.0-92.0 [facility] Neut # 3.8 x10*3/UL 2.0-7.8 [facility] ([facility]) Mid # 0.5 x10*3/UL 0.1-0.6 [facility] ([facility]) Lymph # 1.5 x10*3/UL 0.6-4.1 [facility] ID Date Data Source [id number] 04/23/2020 01:44:00 PM EDT [facility] Name Value Range Interpretation Code Description Data Melanie rce(s) Supporting Document(s) Lactate [Mass/volume] in Serum or Plasma 1.3 mmol/L 0.4-2.0 [facility] ([facility]) Y/N query for Sepsis Lactate Rule: Y ID Date Data Source [id number] 04/01/2020 06:10:00 AM EDT [facility] Name Value Range Interpretation Code Description Data Melanie rce(s) Supporting Document(s) Appearance, Urine RFX Laboratory test result [facility] Color, Urine RFX Laboratory test result [facility] PH,Urine RFX 8.0 units 5.0-9.0 [facility] Protein, Urine Auto RFX Laboratory test result [facility] ([facility]) Specific [place] Ur Auto RFX 1.006 1.002-1.035 [facility] ([facility]) Ketone, Urine Auto RFX Laboratory test result [facility] ([facility]) Glucose, Urine (Ua) Auto RFX Laboratory test result [facility] Bilirubin, Urine Auto RFX Laboratory test result [facility] ([facility]) Urobilinogen, Urine Auto RFX 0.2 mg/dL 0.0-2.0 [facility] Leukocyte Esterase Ur Auto RFX Laboratory test result [facility] Nitrite, Urine Auto RFX Laboratory test result [facility] ([facility]) Blood, Urine Blood RFX Laboratory test result [facility] WBC, Urine Auto RFX 1 /HPF 0-3 [facility] Bacteria, Urine Auto RFX Laboratory test result [facility] RBC, Urine Auto RFX 2 /HPF 0-3 [facility] Squam Epithelial Cell Ur Aurfx 1 /HPF 0-6 [facility] Hyaline Cast, Urine Auto RFX 0 /LPF 0-1 M [facility] ([facility]) Amorphous Sediment RFX Laboratory test result [facility] ([facility]) ID Date Data Source [id number] 03/21/2020 08:47:00 AM EDT [facility] [address] [place] [address] PHONE: [phone] FAX: [phone] Name .................. : CANDIDO MARIO Acct Number.................. : [id number] ROOM. ................. : TR-06 Number ................... : [id number] Stay type ............. : E/R Discharge Date......... ... : 03/18/20 Admit Date ......... : 03/18/20 Admit Phys .................... : VENERUS BR Date of ....... : 1955 Family Phys ................... : JENNY Sol [employer] Phone .................. : [phone] Age ................................ : 64 Film# .................. .:[id number] Sex ................................. : F Unsigned transcriptions are preliminary reports and do not represent a medical or legal document [place]OT COMPLETE-[address] [place] [id number] COMPLETE:03/18/20 05:31 KJE [id number] Reason(s): Pain RIGHT FOOT X-RAY: HISTORY: Pain. [...] rce(s) Supporting Document(s) ID Date Data Source [id number] 03/21/2020 08:47:00 AM EDT [facility] [address] [place] [address] PHONE: [phone] FAX: [phone] Name .................. : CANDIDO MARIO Acct Number.................. : [id number] ROOM. ................. : TR-06 Number ................... : [id number] Stay type ............. : E/R Discharge Date......... ... : 03/18/20 Admit Date ......... : 03/18/20 Admit Phys .................... : TAMAR BHAKTA Date of ....... : 1955 Family Phys ................... : JENNY JOSE Phone .................. : [phone] Age ................................ : 64 Film# .................. .:[id number] Sex ................................. : F Unsigned transcriptions are preliminary reports and do not represent a medical or legal document ANKLE COMPLETE [place] [id number] COMPLETE:03/18/20 05:31 KJE [id number] Reas on(s): Trauma/Injury RIGHT ANKLE X-RAY: 3-VIEWS [...] rce(s) Supporting Document(s) ID Date Data Source [id number] 03/18/2020 04:56:00 AM EDT [facility] 1 OrderSheet [facility] Emergency Department [address] [place] [address] Phone #: ext- [phone] 03/18/2020 04:56 Patient: FABIANO RAMIREZ [facility]#: [id number] Sex: F : 1955 Age: 64yWEIGHT:73.0 kg (M) HEIGHT:59 inches (S) BMI:32.5ALLERGIES: Marielena, Kristina, Patriaentin COMPLAINT: Rt, ankle, Rt, footDIAGNOSIS: Arthritis, Urinary [...] by Storm Oliva R.N. (06:03/18/2020)] 2 OrderSheet [facility] Emergency Department [address] [place] [address] Phone #: ext- [phone] 03/18/2020 04:56 Patient: FABIANO RAMIREZ Sex: F : 1955 Age: 64y[Electronically signed by Henri Boyle Physician (07:31 03/19/2020)][Electronically locked by Storm Oliva R.N. (06:29 03/18/2020)] Name Value Range Interpretation Code Description Data Melanie rce(s) Supporting Document(s) ID Date Data Source [id number] 03/18/2020 04:56:00 AM EDT [facility] 1 Medication Reconciliation Report [facility] Emergency Department [address] [place] [address] Phone #: ext- [phone] 03/18/2020 04:56 Patient: [...] the Emergency Department: 2 Medication Reconciliation Report [facility] Emergency Department [address] [place] [address] Phone #: ext- [phone] 03/18/2020 04:56 Patient: FABIANO RAMIREZ Sex: F : 1955 Age: 64yNone.The following Medications were prescribed to the patient:None. Name Value Range Interpretation Code Description Data [facility] Supporting Document(s) ID Date Data Source [id number] 03/18/2020 04:56:00 AM EDT [facility] 1 Medication Administration Record [facility] Emergency Department [address] [place] [address] Phone #: ext- [phone] 03/18/2020 04:56 Patient: FABIANO RAMIREZ Sex: F : 1955 Age: 64yWeight: 73.0 kgHeight/Length: 59 inBMI: 32.5ALLERGIES: Darvacet, Demerol, MicrodentinDate/Time Medication Administered Medication Ordered Name Value Range Interpretation Code Description Data [facility](s) Supporting Document(s) ID Date Data Source [id number] 03/18/2020 04:56:00 AM EDT [facility] 1 General Instructions [facility] Emergency Department [address] [place] [address] Phone #: ext- [phone] 03/18/2020 04:56 Patient: FABIANO RAMIREZ Sex: F [...] minimize impact from footfalls.).Follow-up:Follow up with a bus van driver as needed. Call for the next available [...] minutes at a time. 2 General Instructions [facility] Emergency Department [address] [place] [address] Phone #: ext- [phone] 03/18/2020 04:56 Patient: [...] joint or bear weight on the joint [id number] [employer]. [address] [place] [address]. All rights reserved. This information is not intended as asubstitute for professional medical care. Always follow your healthcare professional's instructions.Arthralgia 3 General Instructions [facility] Emergency Department [address] [place] [address] Phone #: ext- [phone] 03/18/2020 04:56 Patient: [...] provider or as advised. 4 General Instructions [facility] Emergency Department [address] [place] [address] Phone #: ext- [phone] 03/18/2020 04:56 Patient: [...] or as directed by your healthcare provider [phone] [employer]. [address] [place] [address]. All rights reserved. This information is not [...] bladder (cystitis), or the 5 General Instructions [facility] Emergency Department [address] [place] [address] Phone #: ext- [phone] 03/18/2020 04:56 Patient: [...] usually happens because of: 6 General Instructions [facility] Emergency Department [address] [place] [address] Phone #: ext- [phone] 03/18/2020 04:56 Patient: FABIANO RAMIREZ Sex: F [...] to back after using 7 General Instructions [facility] Emergency Department [address] [place] [address] Phone #: ext- [phone] 03/18/2020 04:56 Patient: FABIANO RAMIREZ Sex: F [...] if the results will affect your treatment.Call [phone] if any of the following occur: [...] to keep medicine down 8 General Instructions [facility] Emergency Department [address] [place] [address] Phone #: ext- [phone] 03/18/2020 04:56 Patient: FABIANO RAMIREZ Sex: F : 1955 Age: 64y Weakness or dizziness Vaginal discharge Pain, redness, or swelling in the outer vaginal area (labia) [id number] [employer] [place] [address]. All rights reserved. This information is not [...] function and reduce pain. 9 General Instructions [facility] Emergency Department [address] [place] [address] Phone #: ext- [phone] 03/18/2020 04:56 Patient: FABIANO RAMIREZ [facility]#: [id number] Sex: F D OB: 1955 Age: 64yFollow-up [...] joint or bear weight on the joint [phone] [employer]. [address] [place] [address]. All rights reserved. This information is not [...] rce(s) Supporting Document(s) ID Date Data Source [id number] 03/18/2020 04:56:00 AM EDT [facility] 1 Clinical Report - Nurses [facility] Emergency Department [address] [place] [address] Phone #: ext- [phone] 03/18/2020 04:56 Patient: [...] notification of patient arrival was received.EMS Treatment HOSPITAL ATTENDANT:See EMS report.SEPSIS SCREEN: SIRS Screen negative. Sepsis Screen negative. No suspected or confirmed signs ofinfection present.THA COMA SCORE: 15- eyes open- spo ntaneous (4); best verbal response- oriented (5); bestmotor response- obeys commands (6). --05:10 03/18/20 Storm Oliva R.N.05:04 03/18/20. BP: 164/82. MAP: 109. HR: 90. RR: 16. O2 saturation: 98%. Temp: 98.2 F. Pain levelnow: 11/27. --06:25 03/18/20 Storm Oliva R.N.Weight: 73 kg [...] Oliva R.N. 2 Clinical Report - Nurses [facility] Emergency Department [address] [place] [address] Phone #: ext- [phone] 03/18/2020 04:56 Patient: FABIANO RAMIREZ [facility]#: [id number] Sex: F : 1955 Age: 64yAllergiesDarvacet.Demerol.Microdentin. --05:02 [...] weakness and 3 Clinical Report - Nurses [facility] Emergency Department [address] [place] [address] Phone #: ext- [phone] 03/18/2020 04:56 Patient: FABIANO RAMIREZ Sex: F [...] have advanced directive. --05:03/18/20 Storm Oliva R.N.PHYSICAL [id number]:03/18/20. To room via stretcher.GENERAL / NEURO / PSYCH: Oriented X 4. Alert. Appears in no acute distress. Appears anxious.EXTREMITIES: Capillary refill is less than 2 seconds in the extremities. Extremity pulses are withinnormal limits. Extremities exhibit normal ROM. Limping gait. Neuro-vascular status intact to theextremity.SKIN: Skin intact. Skin is warm and dry. --06:03/18/20 Storm Oliva R.N.NURSING PROGRESS NOTESExtremities: Neuro-vascular status [...] in lowest position. Brakes of bed on. --06:03/18/20 Storm Oliva R.N.DISPOSITION / DISCHARGE Condition at departure: improved. No learning barriers present. Discharge instructions provided and reviewed with the patient. Reviewed warnings. Reviewed medication(s). Treatments reviewed. Reviewed referrals. Patient verbalized understanding. Written instructions p rovided in [place]. The patient was discharged by the physician. She was discharged home. She left ambulatory and via taxi. Patient driving. ( pt to the waiting room to wait for cab). Patient has no belongings. --06:03/18/20 Storm Oliva R.N. 06:07 03/18/20. BP: 155/85. MAP: 108. HR: 92. RR: 20. O2 saturation: 98%. Temp: 97.8 F. Pain level now: 08/30. --06:08 03/18/20 Storm Oliva R.N. Departure time: 06:23 03/18/2020. --06:23 03/18/20 Storm Oliva R.N. 4 Clinical Report - Nurses [facility] Emergency Department [address] [place] [address] Phone #: ext- [phone] 03/18/2020 04:56 Patient: FABIANO RAMIREZ Sex: F : 1955 Age: 64yLocked/Released at 03/18/2020 06:29 by Storm Oliva R.N. Name Value Range Interpretation Code Description Data Melanie rce(s) Supporting Document(s) ID Date Data Source [id number] 03/18/2020 04:56:00 AM EDT [facility] 1 Clinical Report - Physicians/Mid Levels [facility] Emergency Department [address] [place] [address] Phone #: ext [phone] 03/18/2020 04:56 Patient: FABIANO RAMIREZ Sex: F [...] injury 2 Clinical Report - Physicians/Mid Levels [facility] Emergency Department [address] [place] [address] Phone #: ext- [phone] 03/18/2020 04:56 Patient: FABIANO RAMIREZ [facility]#: [id number] Sex: F : 1955 Age: 64y present. [...] process. Uric Acid: (OLE: 03/18/2020 05:40) ( [facility] 03/18/2020 06:10) Final results Test Result Flag Units (Reference) URIC ACID 6.4 MG/DL (2.5 - 8.5) Sed. Rate: (OLE: 03/18/2020 05:40) ( [facility] 03/18/2020 06:05) Final results Test Result Flag Units (Reference) SED RATE 46 H mm/hr (0 - 30) SED RATE REENTER 46 CRP: (OLE: 03/18/2020 05:40) ( [facility] 03/18/2020 06:10) Final results Test Result Flag Units (Reference) CRP-HS 6.67 H MG/L (1.00 - 3.00) CDC/S HS-CRP CUT-OFF: RELATIVE RISK: <1.0 mg/L Low 1.0 - 3.0 mg/L Average >3.0 mg/L High Optimally, the average of HS-CRP results repeated two weeks apart should be used for risk assessment. Ankle Complete Right: (OLE: 03/18/2020 05:07) ( [facility] 03/18/2020 09:23) In Progress ANKLE COMPLETE RT Reason(s): Trauma/Injury TRANSPORTATION: WC IV? O2? Oxygen?(No) Room: ED [place] [address] PHONE: [phone] FAX: [phone] Name .................. : CANDIDO MARIO Acct Number.................. : [id number] ROOM. ................. : TR-06 MR Number ................... : [id number] Stay type ............. : E/R Discharge Date......... ... : 03/18/20 Admit Date ......... : 03/18/20 Admit Phys .................... : TAMAR BHAKTA Date of ....... : 1955 Family Phys ................... : JENNY NAN Phone .................. : [phone] Age ................................ : 64 Film# .................. .:[id number] Sex ................................. : F Unsigned transcriptions are preliminary reports and do not represent a medical or legal document ANKLE COMPLETE RT [id number] COMPLETE:03/18/20 05:31 KJE [id number] Reason(s): Trauma/Injury 3 Clinical Report - Physicians/Mid Levels [facility] Emergency Department [address] [place] [address] Phone #: ext- [phone] 03/18/2020 04:56 Patient: FABIANO RAMIREZ Sex: F : 1955 Age: 64y RIGHT ANKLE X-RAY: 3-VIEWS HISTORY: Trauma/injury. COMPARISON: None. FINDINGS: No fracture, malalignment or destructive osseous abnormality. Symmetric ankle mortise. No syndesmotic widening. No ankle joint effusion. Mild lateral malleolar soft tissue swelling. IMPRESSION: No fracture. Electronically Reviewed and Signed By JULIA SIGNDARIEL HOFFMAN Transcribe Initials: SHANNAN , Transcribe Date: 03/18/20 09:21, Dictation Date: <<REPDIST>> Page1 of 1Foot Complete Right: (OLE: 03/18/2020 05:07) ( [facility] 03/18/2020 09:24) In ProgressFOOT COMPLETE-3 OR MORE VW RTReason(s): PainTRANSPORTATION: WC IV? O2? Oxygen?(No) Room: ED Exam FOOT COMPLETE-3 OR MORE VW RT [facility] [address] [place] [address] PHONE: [phone] FAX: [phone] Name .............. .... : CANDIDO MARIO Acct Number.................. : [id number] ROOM. ................. : TR06 MR Number ................... : [id number] Stay type ............. : E/R Discharge Date......... ... : 03/18/20 Admit Date ......... : 03/18/20 Admit Phys .................... : TAMAR BHAKTA Date of ....... : 1955 Family Phys ................... : JENNY NAN Phone .................. : [phone] Age ................................ : 64 Film# .................. .:[id number] Sex ................................. : F Unsigned transcriptions are preliminary reports and do not represent a medical or legal document [place] COMPLETE-[address] [place] [id number] COMPLETE:03/18/20 05:31 KJE [id number] Reason(s): Pain Trauma/Injury 4 Clinical Report - Physicians/Mid Levels [facility] Emergency Department [address] [place] [address] Phone #: ext- [phone] 03/18/2020 04:56 Patient: [...] P. aeruginosa UTI from cx done at [facility] ED visit 2 weeks ago. She is [...] obstruction. 5 Clinical Report - Physicians/Mid Levels [facility] Emergency Department [address] [place] [address] Phone #: ext- [phone] 03/18/2020 04:56 Patient: [...] from footfalls.). 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 Call for the next available [...] blood pressure 134 mm[Hg] 134 mm[Hg] M [facility] ([facility], ) Diastolic blood pressure 84 mm[Hg] 84 mm[Hg] [facility] ([facility], ) Heart rate 87 /min 87 /min [facility] ([facility], ) Oxygen saturation in Arterial blood by Pulse oximetry 93 % 93 % [facility] ([facility], ) Body temperature 97.0 [degF] 97.0 [degF] [facility] ([facility]) Body height 59 [in_i] 59 [in_i] [facility] ([facility]) 4'11" Body weight 152.00 [lb_av] 152.00 [lb_av] [facility] Body mass index (BMI) [Ratio] 30.7 kg/m2 30.7 k g/m2 [facility] ([facility]) [place] body weight 100 [lb_av] 100 [lb_av] [facility] Body weight 68.947 kg 68.947 kg [facility] ([facility]) Body surface area Derived from formula 1.64 m2 1.64 m2 [facility] ([facility]) Systolic blood pressure 122 mm[Hg] 122 mm[Hg] [facility] ([facility]) Diastolic blood pressure 80 mm[Hg] 80 mm[Hg] [facility] ([facility]) Heart rate 102 /min 102 /min [facility] ([facility]) Body height 59 [in_i] 59 [in_i] [facility] ([facility]) 4'11" Body weight 157.00 [lb_av] 157.00 [lb_av] [facility] Oxygen saturation in Arterial blood by Pulse oximetry 97 % 97 % [facility] ([facility]) Body mass index (BMI) [Ratio] 31.7 kg/m2 31.7 k g/m2 [facility] ([facility]) Body mass index (BMI) [Ratio] 31.5 kg/m2 31.5 k g/m2 [facility] ([facility]) Heart rate 94 /min 94 /min [facility] ([facility]) Body height 59 [in_i] 59 [in_i] [facility] ([facility]) 4'11" Body weight 156.00 [lb_av] 156.00 [lb_av] [facility] ([facility]) Oxygen saturation in Arterial blood by Pulse oximetry 96 % 96 % [facility] ([facility]) Systolic blood pressure 116 mm[Hg] 116 mm[Hg] M [facility] Body mass index (BMI) [Ratio] 31.3 kg/m2 31.3 k g/m2 DILL[facility] ([facility]) Diastolic blood pressure 72 mm[Hg] 72 mm[Hg] DILLAN ([facility]) Heart rate 94 /min 94 /min [facility] ([facility]) Body height 59 [in_i] 59 [in_i] MEDTRES ([facility]) 4'11" Body weight 155.00 [lb_av] 155.00 [lb_av] NIXON T ([facility]) Oxygen saturation in Arterial blood by Pulse oximetry 96 % 96 % DILLAN ([facility])
--- OUTSIDE RECORDS SUMMARY | 2021-05-19 09:23 | CCD ---
Author Author [facility] Organization [facility] Address Unknown Phone Unavailable Care Team Providers Care Supervisor Welding Equipment Repairer Name Role Phone MARK, F XAVIER DO [...] XAVIER DO Unavailable Unavailable Hospital Lab, Area [place] Unavailable Unavailable Serge Echeverria MD Unavailable Unavailable [...] is protected by Article 27-F of the [facility] Public Health law. If you continue you may have access to information: Regarding HIV / AIDS; Provided by facilities licensed or operated by the [facility] Office of Mental Health; or Provided by the [facility] Office for People With Developmental Disabilities. If such information is present, then the following [facility] mandated warning applies: This information has [...] law may result in a fine or senior care sentence or both. A general authorization for the release of medical or other information is NOT sufficient authorization for further disc losure. Family History Family Member Name Family Member Gender Family Member Status Date o f Status Description Data Source(s) Unknown Male Problem [facility] ([facility] () Unknown Female Problem [facility] Unknown Female Problem [facility] ([facility]) Unknown Female Problem [facility] ([facility]) Encounters Encounter Providers Location Date Indications Data Source(s ) Emergency Attender: Serge Echeverria MDConsultant: Daisy CHENEY 03/04/2021 11:38:00 AM EDT - 03/04/2021 02:32:00 PM EDT [facility] Patient discharged. Emergency Attender: Serge Echeverria MDConsultant: Daisy RODRIGUEZ ANP 02/17/2021 07:58:00 AM EDT - 02/17/2021 10:25:00 AM EDT [facility] Patient discharged. Emergency Attender: XAVIER ROBERTSON DOConsultant: Daisy CHENEY 12/10/2020 05:37:00 AM EDT - 12/10/2020 07:15:00 AM EDT [facility] Patient discharged. Emergency Attender: KAREN SAUCEDO MDConsultant: Susan RODRIGUEZ ANP 12/01/2020 12:20:00 PM EDT - 12/01/2020 04:50:00 PM EDT [facility] Patient discharged. Outpatient Attender: [facility] 10/14/2020 12:0 4:00 AM EDT [facility] Emergency Attender: KAREN SAUCEDO MDConsultant: Susan RODRIGUEZ ANP 10/13/2020 11:01:00 PM EDT - 10/14/2020 04:24:00 AM EDT [facility] Patient discharged. Outpatient Attender: Daisy Craig 05/2021 01:40:00 PM EST [facility] ([facility] ) Emergency Attender: HENRI BOYLE MDConsultant: Daisy CHENEY 07/01/2020 06:35:00 AM EST - 07/01/2020 07:46:00 AM EST [facility] Patient discharged. Outpatient Attender: Daisy Craig 01:45:00 PM EST [facility] ([facility] ) Outpatient Attender: Daisy Craig 02:45:00 PM EDT [facility] ([facility] ) Emergency Attender: HENRI BOYLE MDConsultant: Daisy TREVINO ANP 03/18/2020 04:56:00 AM EDT - 03/18/2020 06:29:00 AM EDT [facility] Patient discharged. Immunizations Vaccine Date Status Description Data Source(s) COVID-19 VACCINE [facility] 04/11/2021 12:00:00 AM EDT completed [facility] Vaccine Series Complete: YESThis Data wa s Submitted to [facility] Via [employer]. COVID-19 VACCINE [facility] 03/21/2021 12:00:00 AM EDT completed [facility] Complete: NOThis Data was Submitted to [facility] Via [employer]. Influenza, injectable, MDCK, preservative free, stefania valent 05/01/2020 02:55:00 PM EDT completed [facility] Medications Medication Brand Name Start Date Product [...] UP TO 10 A DAY SOLD: 12/12/2020 [facility] NITROFURANTOIN, MACROCRYSTALS 25 MG / Ni trofurantoin, [...] Antacid 11/07/2020 12:00:00 AM EDT active [facility] ([facility]) 30 mg 11/07/2020 12:00:00 AM EDT [...] 09/20/2020 12:00:00 AM EST ORAL active [facility] ([facility]) 2.5-0.025 mg 09/12/2020 12:00:00 AM [...] DAILY DOSE = 9 TABLETS SOLD: 09/05/2020 [facility] Colestipol Hydrochloride 1000 MG Oral Tablet [...] MOUTH THREE TIMES A DAY SOLD: 10/03/2020 [facility] olanzapine 5 MG Oral Tablet [...] DOSE = TWO TABLETS SOLD: 07/18/2020 [facility] Cyclobenzaprine hydrochloride 10 MG Oral Tablet CYCLOBENZAPR [...] Acetaminophen 06/06/2020 12:00:00 AM EST active [facility] ([facility]) Meclizine Hydrochloride 25 MG Oral Tablet MECLIZINE HCL 05/30/2020 12:00:00 AM EST tablet 90 TAKE ONE TABLET BY MOUTH VICKI RY 8 HOURS NEEDED FOR DIZZINESS TAKE ONE TABLET BY MOUTH EVERY 8 HOURS NEEDED FOR DIZZINESS SOLD: 10/10/2020 [facility] Meclizine Hydrochloride 25 MG Oral Tablet MECLIZINE HCL 05/30/2020 12:00:00 AM EST tablet 90 TAKE ONE TABLET BY MOUTH VICKI RY 8 HOURS NEEDED FOR DIZZINESS TAKE ONE TABLET BY MOUTH EVERY 8 HOURS NEEDED FOR DIZZINESS SOLD: 09/05/2020 [employer] Meclizine Hydrochloride 25 MG Oral Tablet MECLIZINE [...] Olanzapine 05/01/2020 12:00:00 AM EDT completed [facility] ([facility]) 2 mg 05/01/2020 12:00:00 AM EDT [...] 04/04/2020 12:00:00 AM EDT active [facility]DI [facility] olanzapine 2.5 MG Oral Tablet OLANZAPINE 02/08/2020 [...] type / Coverage type Policy ID Covered republican ID Covered republican's relationship to laura Policy Laura Plan Information Medicare Natl Govt Servic Medicare Primary [id number] Self 0 [id number] Medicare Natl Govt Servic Medicare Primary [id number] Self [id number] Medicare Natl Govt Servic Medicare Primary [id number] Self 4 [id number] Medicare Natl Govt Servic Medicare Primary [id number] Self 0 [id number] Medicare Natl Govt Servic Medicare Primary [id number] Self [id number] Medicare - NGS Medicare Primary [id number] Self [id number] Medicare Natl Govt Servic Medicare Primary [id number] Self Medicare Natl Govt Servic Medicare Primary [id number] Self 4 [id number] Medicare - NGS Medicare Primary [id number] Self [id number] Medicare Natl Govt Servic Medicare Primary [id number] Self 4 [id number] Medicare Natl Govt Servic Medicare Primary [id number] Self 0 [id number] Medicare Natl Govt Servic Medicare Primary [id number] Self [id number] BS [place] Medig[place] Part B [id number] Self MEDICARE [id number] SP [id number] BS [place] Medigap Part B [id number] Self [id number] [place] Commercial [id number] Self [id number] MEDICARE [id number] SP [id number] Medicare [place] Primary [id number] Self [place] Med[place] Part B [id number] Self MEDICAID [id number] SP [id number] Medicaid Medigap Part B [id number] 0.0 Self [id number] MEDICAID M [id number] S [id number] MEDICAID [id number] SP [id number] ANSI-Medicare Part B [id number] ANSI-Medicaid [id number] ANSI-Medicare Part B [id number] ANSI-Medicaid [id number] ANSI-Medicare Part B [id number] ANSI-Medicaid [id number] ANSI-Medicare Part B [id number] ANSI-Medicaid [id number] ANSI-Medicaid [id number] ANSI-Medicare Part B [id number] MEDICARE [id number] SP [id number] ANSI-Medicare Part B [id number] ANSI-Medicaid [id number] Medicaid [facility] Part B [id number] 0.0 Self [id number] [place] Part B [id number] [id number] Self [id number] ANSI-Medicaid [id number] ANSI-Medicare Part B [id number] ANSI-Medicare Part B [id number] ANSI-Medicaid [id number] MEDICARE C [id number] S [id number] A Medicaid Medigap Part B [id number] 0.0 Self [id number] Medicaid Medigap Part B [id number] 0.0 Self [id number] Medicaid Medigap Part B [id number] 0.0 Self [id number] Medicaid Medigap Part B [id number] 0.0 Self [id number] [facility] [id number] S [id number] MEDICARE [id number] SP [id number] [place] Medigap Part B [id number] Self Medicaid Medigap Part B [id number] Self 1 1 BS [place] Medigap Part B [id number] Self [id number] BS [place] Medigap Part B [id number] Self [place] 306/806 NOT ACTIVE SP NOT ACTIVE SELF PAY UNAVAILABLE SP UNAVAILA BLE [place] 306/806 [id number] SP [id number] [place] BCBS S [id number] S [id number] [place] P[place] 302/307 [id number] SP [id number] [place] [id number] SP [id number] Y [id number] MEDICARE PART A -O/P [id number] 18 [id number] MEDICAID -O/P EMERGENCY ROOM [id number] EMEDNY [id number] SP [id number] MEDICARE C [id number] S [id number] MEDICARE PART A -O/P [id number] 18 [id number] MEDICARE PART A -O/P [id number] 18 [id number] Medicaid Medigap Part B [id number] Self [id number] [place] Medigap Part B [id number] Self [id number] Medicaid Medigap Part B [id number] 0.0 Self [id number] [place] Part B [id number] 5585.0 Self [id number] BS [place] Med[place]ap Part B [id number] Self [id number] [id number] MEDICARE [id number] SP [id number] Medicaid Medigap Part B [id number] 0.0 Self [id number] ANSI-Medicare Part B [id number] ANSI-Medicaid [id number] ANSI-Medicaid [id number] ANSI-Medicare Part B [id number] ANSI-Medicaid [id number] ANSI-Medicare Part B [id number] Problems, Conditions, and Diagnoses Code Display Name Description Problem Type Effective Dates Data Source(s) V27159 Presence of unspecified artificial hip j oint Presence of unspecified artificial hip joint Diagnosis 03/04/2021 11:38:00 AM [facility] D51614 Personal history of nicotine dependence Personal history of nicotine dependence Diagnosis 03/04/2021 11:38:00 AM [facility] Z7901 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 (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) 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 Diagnosis 03/04/2021 11:38:00 AM [facility] E119 Type 2 diabetes mellitus without complic ations Type 2 diabetes mellitus without complications Diagnosis 03/04/2021 11:38:00 AM [facility] I10 Essential (primary) hypertension Essential (primary) h ypertension Diagnosis 03/04/2021 11:38:00 AM [facility] K5900 Constipation, unspecified Constipation, unspecified Di agnosis 03/04/2021 11:38:00 AM [facility] N3000 Acute cystitis without hematuria Acute cystitis without hematuria Diagnosis 02/17/2021 07:58:00 AM [facility] P09167 Pressure ulcer of other site, unspecifie d stage Pressure ulcer of other site, unspecified stage Diagnosis 02/17/2021 07:58:00 AM [facility] E09333 Pain in right foot Pain in right foot Diagnosis 07:58:00 AM EDT [facility] G8929 Other chronic pain Other chronic pain Diagnosis 05:37:00 AM EDT [facility] O38262 Pain in right ankle and joints of right foot Pain in right ankle and joints of right foot Diagnosis 12/10/2020 05:37:00 AM EDT [facility] R300 Dysuria Dysuria Diagnosis 12/10/2020 05:37:00 AM ED T [facility] R1312 Dysphagia, oropharyngeal phase Dysphagia, oropharyngea l phase Diagnosis 12/01/2020 12:20:00 PM EDT [facility] J029 Acute pharyngitis, unspecified Acute pharyngitis, unsp ecified Diagnosis 12/01/2020 12:20:00 PM EDT [facility] Z57462 Unspecified asthma, uncomplicated Unspecified as thma, uncomplicated Diagnosis 10/13/2020 11:01:00 PM EDT [facility] M419 Scoliosis, unspecified Scoliosis, unspecified Diagnosi s 10/13/2020 11:01:00 PM EDT [facility] N3001 Acute cystitis with hematuria Acute cystitis with ilda turia Diagnosis 10/13/2020 11:01:00 PM EDT [facility] R05 Cough Cough Diagnosis 10/13/2020 11:01:00 PM ED T [facility] W55742 Personal history of urinary (tract) infe ctions Personal history of urinary (tract) infections Diagnosis 07/01/2020 06:35:[address] [facility] Z7902 jail (current) use of antithromboti cs/antiplatelets jail (current) use of antithrombotics/antiplatelets Diagnosis 020 06:35:00 AM [facility] Surgeries/Procedures Procedure Description Date Indications Data Source(s) Colonoscopy 04/26/2020 12:00:00 AM EDT Gustavo FAIRBANKS ([facility]) Results ID Date Data Source [id number] 04/22/2021 08:18:00 AM EDT [facility] Name Value Range Interpretation Code Description Data Melanie rce(s) Supporting Document(s) SARS-CoV-2 (COVID 19) NEGATIVE - SARS-CoV-2 (COVID19) [facility] This lab was ordered by [facility] a nd reported by [facility]. ID Date Data Source [id number] 03/04/2021 11:38:00 AM EDT [facility] 1 OrderSheet [facility] Emergency Department [address] [place] [address] Phone #: ext- [phone] 03/04/2021 11:37 Patient: FABIANO RAMIREZ Sex: F : 1955 Age: 65yWEIGHT:77.1 kg (S) HEIGHT:59 inches (S) BMI:34.4ALLERGIES: Darvacet, Demerol, MicrodentinCHIEF COMPLAINT: abd pain, constipationDIAGNOSIS: ConstipationLAB ORDERSOrder Description Priority Entered Acknowledged InitialedDIAGNOSTIC STUDY ORDERSOrder Description Priority Entered Acknowledged InitialedAbdomen Multiview STAT 13:02 03/04/2021 13:03 Daquan(Oxygen?(No)) Anita Fuentes electronic data processing auditor, 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 (14:35 03/04/2021)][Electronically signed by Anita Fuentes (07:30 03/05/2021)][Electronically locked by Tyler Ladd R.N. (14:35 03/04/2021)] Name Value Range Interpretation Code Description Data Melanie rce(s) Supporting Document(s) ID Date Data Source [id number] 03/04/2021 11:38:00 AM EDT [facility] 1 Medication Reconciliation Report [facility] Emergency Department [address] [place] [address] Phone #: ext- [phone] 03/04/2021 11:37 Patient: [...] the Emergency Department: 2 Medication Reconciliation Report [facility] Emergency Department [address] [place] [address] Phone #: ext- [phone] 03/04/2021 11:37 Patient: FABIANO RAMIREZ Sex: F : 1955 Age: 65yNone.The following Medications were prescribed to the patient:None. Name Value Range Interpretation Code Description Data Melanie rce(s) Supporting Document(s) ID Date Data Source [id number] 03/04/2021 11:38:00 AM EDT [facility] 1 Medication Administration Record [facility] Emergency Department [address] [place] [address] Phone #: ext- [phone] 03/04/2021 11:37 Patient: FABIANO RAMIREZ Sex: F : 1955 Age: 65yWeight: 77.1 kgHeight/Length: 59 inBMI: 34.4ALLERGIES: Darvacet, Microdentin, DemerolDate/Time Medication Administered Medication Ordered Name Value Range Interpretation Code Description Data Melanie rce(s) Supporting Document(s) ID Date Data Source [id number] 03/04/2021 11:38:00 AM EDT [facility] 1 General Instructions [facility] Emergency Department [address] [place] [address] Phone #: ext- [phone] 03/04/2021 11:37 Patient: [...] by patient. ADDITIONAL INFORMATION 2 General Instructions [facility] Emergency Department [address] [place] [address] Phone #: ext- [phone] 03/04/2021 11:37 Patient: [...] aging, work, and travel 3 General Instructions [facility] Emergency Department [address] [place] [address] Phone #: ext- [phone] 03/04/2021 11:37 Patient: FABIANO RAMIREZ Sex: F [...] your healthcare provider first. 4 General Instructions [facility] Emergency Department [address] [place] [address] Phone #: ext- [phone] 03/04/2021 11:37 Patient: FABIANO RAMIREZ Sex: F [...] have more tests or see a specialist.Call [phone] if any of these occur: Trouble breathing Stiff, rigid abdomen that is severely painful to touch Confusion Fainting or loss of consciousness Rapid heart rate Chest painWhen to seek medical adviceCall your healthcare provider right away if any of these occur: Fever of 100.4F (38C) or higher, or as directed by your healthcare provider 5 General Instructions [facility] Emergency Department [address] [place] [address] Phone #: ext- [phone] 03/04/2021 11:37 Patient: FABIANO RAMIREZ Sex: F : 1955 Age: 65y Failure to resume normal bowel movements Pain in your abdomen or back gets worse Nausea or vomiting Swelling in your abdomen Blood in the stool Black, tarry stool Involuntary weight loss Weakness [id number] [employer]. [address] [place] [address]. All rights reserved. This information is not [...] high in fiber 6 Genera l Instructions [facility] Emergency Department [address] [place] [address] Phone #: ext- [phone] 03/04/2021 11:37 Patient: [...] green peas, celery, eggplant, potatoes, spinach, broccoli, [place] sprouts, winter squash, carrots, cauliflower, soybeans, lentils, and fresh and dried beans of all kinds. Other. Popcorn; any spicesIf you have diverticulosisThere aren't any specific foods to avoid if you have diverticulosis. But each person is different. Theremay be some foods that make your symptoms worse. Keep track and don't eat foods that make youfeel worse. 4610-7286 [employer]. [address] [place] [address]. All rights reserved. This information is not intended as asubstitute for professional medical care. Always follow your health day care aide's instructions. You have been given the following additional information: Constipation (Adult) High-Fiber Diet(Electronically signed by EMRE Puga 03/05/2021 07:30) Name Value Range Interpretation Code Description Data Melanie rce(s) Supporting Document(s) ID Date Data Source [id number] 03/04/2021 11:38:00 AM EDT [facility] 1 Clinical Report - Nurses [facility] Emergency Department [address] [place] [address] Phone #: ext- [phone] 03/04/2021 11:37 Patient: FABIANO RAMIREZ Sex: F : 1955 Age: 65yTRIAGEArrived by EMS. Historian: patient. Unaccompanied.Triage time: late entry - 11:34 03/04/2021. Acuity: LEVEL 3.Chief Complaint: ABDOMINAL PAIN and CONSTIPATION.Alert. No acute distress.Onset. (1 weeks ago). ( Pt hasnt had a normal BM in about a week. Pt was seen at [facility] yesterday andwas unable to tolerate a CT scan. She had a small BM 2 days ago. Pt has c/o of abd pain with a burningsensation.). She has had constipation.Treatment PAYROLL OFFICER:None.SEPSIS SCREEN: SIRS SCREEN NEGATIVE. SEPSIS SCREEN NEGATIVE. [...] Ladd R.N.Darvacet. 2 Clinical Report - Nurses [facility] Emergency Department [address] [place] [address] Phone #: ext- [phone] 03/04/2021 11:37 Patient: [...] "Do you 3 Clinical Report - Nurses [facility] Emergency Department [address] [place] [address] Phone #: ext- [phone] 03/04/2021 11:37 Patient: [...] Ladd R.N. 4 Clinical Report - Nurses [facility] Emergency Department [address] [place] [address] Phone #: ext- [phone] 03/04/2021 11:37 Patient: FABIANO RAMIREZ Sex: F [...] F. Pain level now 5/10. --14:19 03/04/21 [place] electronic data processing auditorJulio ER Tech1 late entry - 14:32 03/04/21. [...] Patient verbalized understanding. Written instructions provided in Bel[place]an. The patient was discharged by the physician pest controller assistant. She was discharged home and unaccompanied at time of discharge. She left ambulatory and via taxi. 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 --14:34 03/04/21 So Ladd R.N.Locked/Released at 03/04/2021 14:35 by So Ladd R.N. Name Value Range Interpretation Code Description Data Melanie rce(s) Supporting Document(s) ID Date Data Source [id number] 03/04/2021 11:38:00 AM EDT [facility] 1 Clinical Report - Physicians/Mid Levels [facility] Emergency Department [address] [place] [address] Phone #: ext- [phone] 03/04/2021 11:37 Patient: FABIANO RAMIREZ Sex: F [...] bed and bathroom." She was seen at [facility] yesterday but was unable to tolerate [...] seen recently by a health care provider ([facility] yesterday).REVIEW OF SYSTEMSNo chills, fatigue, [...] Repair. 2 Clinical Report - Physicians/Mid Levels [facility] Emergency Department [address] [place] [address] Phone #: ext- [phone] 03/04/2021 11:37 Patient: FABIANO RAMIREZ Sex: F [...] 3. 3 Clinical Report - Physicians/Mid Levels [facility] Emergency Department [address] [place] [address] Phone #: ext- [phone] 03/04/2021 11:37 Patient: FABIANO RMAIREZ Sex: F : 1955 Age: 65yLABS, X-RAYS, AND EKGLaboratory Tests: Laboratory tests have been ordered, with results reviewed and considered in themedical decision making process. Abdomen Multiview: (OLE: 03/04/2021 13:02) ( MsgRcvd 03/04/2021 15:03) Final results Exam ABDOMEN MULTIPLE VIEW [facility] [address] [place] [address] PHONE: [phone] FAX: [phone] Name .................. : CANDIDO MARIO Acct Number.................. : [id number] ROOM. ................. : TR-03 MR Number ................... : [id number] Stay type ............. : E/R Discharge Date......... ... : Admit Date ......... : 03/04/21 Admit Phys .................... : IRMA Stallings Date of ....... : 1955 Family Phys ................... : JENNY GARCIA Phone .................. : [phone] Age ................................ : 65 Film# .................. .:[id number] Sex ................................. : F Unsigned transcriptions are preliminary reports and do not represent a medical or legal document ABDOMEN MULTIPLE VIEW [id number] COMPLETE:03/04/21 13:02 95279 Reason(s): constipation, lower abd pain ABDOMINAL RADIOGRAPH [...] REC 4 Clinical Report - Physicians/Mid Levels [facility] [place] [address] Phone #: ext- [phone] 03/04/2021 11:37 Patient: FABIANO RAMIREZ Sex: F [...] packet. 5 Clinical Report - Physicians/Mid Levels [facility] Emergency Department [address] [place] [address] Phone #: ext- [phone] 03/04/2021 11:37 [facility]: [id number] Sex: F : 1955 Age: 65y Motrin IB Oral : 400, prn. Potassium Chloride Oral : Packet 20 meq, 2x a day. Promethazine HCl Oral : Tablet 25 mg, prn. Sudafed Oral : 60 mg 2x a day. ZyPREXA Oral : Tablet 10 mg, at bedtime. Follow-up: Follow up with your [facility] provider Daisy Rodriguez NP Friday. Call for an appointment. Reason for referral: evaluation and treatment. Summary of care provided to patient via paper. Understanding of the discharge instructions verbalized by patient.(Electronically signed by EMRE Puga 03/05/2021 07:30) Name Value Range Interpretation Code Description Data Melanie rce(s) Supporting Document(s) ID Date Data Source [id number] 03/04/2021 03:03:00 PM EDT [facility] [address] [place] [address] PHONE: [phone] FAX: [phone] Name .................. : CANDIDO MARIO Acct Number.................. : [id number] ROOM. ................. : TR03 Number ................... : [id number] Stay type ............. : E/R Discharge Date......... ... : Admit Date ......... : 03/04/21 Admit Phys .................... : IRMA Stallings Date of ....... : 1955 Family Phys ................... : JENNY GARCIA Phone .................. : [phone] Age ................................ : 65 Film# .................. .:[id number] Sex ................................. : F Unsigned transcriptions are preliminary reports and do not represent a medical or legal document ABDOMEN MULTIPLE VIEW [id number] COMPLETE:03/04/21 13:02 01830 Reason(s): constipation, lower abd pain ABDOMINAL RADIOGRAPH [...] rce(s) Supporting Document(s) ID Date Data Source [id number] 02/19/2021 09:47:00 AM EDT [facility] [address] [place] [address] PHONE: [phone] FAX: [phone] Name .................. : CANDIDO MARIO Acct Number.................. : [id number] ROOM. ................. : TR-02 MR Number ................... : [id number] Stay type ............. : E/R Discharge Date......... ... : 02/17/21 Admit Date ......... : 02/17/21 Admit Phys .................... : IRMA Stallings Date of ....... : 1955 Family Phys ................... : [employer] Phone .................. : [phone] Age ................................ : 65 Film# .................. .:[id number] Sex ................................. 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 No other abnormalities. 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 Electronically Reviewed and Signed By NIGEL LEVINE MD , 02/19/21 09:47, [facility] Transcribe Initials: SHANNAN , Transcribe Date: 02/17/21 11:42, Dictation Date: Copy for: EMERGENCY DEPT via [facility] Copy for: 710 MED REC DISCHARGED Page 1 of 1 Name Value Range Interpretation Code Description Data Melanie rce(s) Supporting Document(s) ID Date Data Source [id number] 02/17/2021 07:58:00 AM EDT [facility] 1 OrderSheet [facility] Emergency Department [address] [place] [address] Phone #: ext- [phone] 02/17/2021 07:54 Patient: FABIANO RAMIREZ Sex: F : 1955 Age: 65yWEIGHT:67.8 kg (M) HEIGHT:59 inches (S) BMI:30.2ALLERGIES: Darvacet, Demerol, MicrodentinCHIEF COMPLAINT: painDIAGNOSIS: CystitisLAB ORDERSOrder Description Priority Entered Acknowledged InitialedUrinalysis (Clean STAT 08:31 02/17/2021 08:57 NareshCatch) Serge Echeverria ; Thomas RNCulture, Urine STAT 08:31 02/17/2021 08:57 Naresh(Urine, Clean Srege Echeverria ; Thomas RNCatch)DIAGNOSTIC STUDY ORDERSOrder Description [...] rce(s) Supporting Document(s) ID Date Data Source [id number] 02/17/2021 07:58:00 AM EDT [facility] 1 Medication Reconciliation Report [facility] Emergency Department [address] [place] [address] Phone #: ext- [phone] 02/17/2021 07:54 Patient: [...] the Emergency Department: 2 Medication Reconciliation Report [facility] Emergency Department [address] [place] [address] Phone #: ext- [phone] 02/17/2021 07:54 Patient: FABIANO RAMIREZ Sex: F : 1955 Age: 65yNone.The following Medications were prescribed to the patient:Bactrim DS 800 mg-160 mg tablet Take 1 tablet twice a day for 7 days -- Dispense 14 tablet. Refills: 0.Substitution permitted.Pharmacy - [facility] - [address] ; [place] [address]. . -- Serge Echeverria Name Value Range Interpretation Code Description Data [facility] rce(s) Supporting Document(s) ID Date Data Source [id number] 02/17/2021 07:58:00 AM EDT [place] [address] Medication Administration Record [facility] Emergency Department [address] [place] [address] Phone #: ext- [phone] 02/17/2021 07:54 Patient: FABIANO RAMIREZ Sex: F : 1955 Age: 65yWeight: 67.8 kgHeight/Length: 59 inBMI: 30.2ALLERGIES: Darvacet, Demerol, MicrodentinDate/Time Medication Administered Medication Ordered Name Value Range Interpretation Code Description [facility] Document(s) ID Date Data Source [id number] 02/17/2021 07:58:00 AM EDT [facility] 1 General Instructions [facility] Emergency Department [address] [place] [address] Phone #: ext [phone] 02/17/2021 07:54 Patient: FABIANO RAMIREZ Sex: F [...] Dispense 14 tablet. Refills: 0.Substitution permitted.Pharmacy - [facility] [address] [place] [address]. .Follow-up:Follow up with your healthcare provider.Understanding of the discharge instructions verbalized by patient. 2 General Instructions [facility] Emergency Department [address] [place] [address] Phone #: ext- [phone] 02/17/2021 07:54 Patient: FABIANO RAMIREZ Sex: F [...] a bladder infection are: 3 General Instructions [facility] Emergency Department [address] [place] [address] Phone #: ext- [phone] 02/17/2021 07:54 Patient: [...] Fluid loss (dehydration) Constipation 4 General Instructions [facility] Emergency Department [address] [place] [address] Phone #: ext- [phone] 02/17/2021 07:54 Patient: [...] can irritate your bladder. 5 General Instructions [facility] Emergency Department [address] [place] [address] Phone #: ext- [phone] 02/17/2021 07:54 Patient: [...] if the results will affect your treatment.Call [phone] [phone] if any of the following occur: [...] swelling in the outer vaginal area (labia) 9788-9721 [employer]. [address] [place] [address], [place] [address]. All rights reserved. This information is not intended as asubstitute for professional medical care. Always follow your healthcare professional's instructions. 6 General Instructions [facility] Emergency Department [address] [place] [address] Phone #: ext- [phone] 02/17/2021 07:54 Patient: FABIANO RAMIREZ Sex: F : 1955 Age: 65yYou have been given the following additional information:Bladder Infection, Female (Adult)(Electronically signed by Serge Echeverria 02/17/2021 11:03) Name Value Range Interpretation Code Description Data Melanie rce(s) Supporting Document(s) ID Date Data Source [id number] 02/17/2021 07:58:00 AM EDT [facility] 1 Clinical Report - Nurses [facility] Emergency Department [address] [place] [address] Phone #: [phone]- [phone] 02/17/2021 07:54 Patient: FABIANO RAMIREZ Sex: F : 1955 Age: 65yTRIAGEArrived by EMS. Historian: patient.Acuity: LEVEL 4.Chief Complaint: RIGHT LOWER EXTREMITY PAIN.No injury occurred. Onset. (2 weeks ago). ( Pt states she has had right lower extremity pain for about thepast 2 weeks, she was seen here more than a couple weeks ago and an air splint was applied, she went [facility] yesterday and was released, she reports continued pain and now feels nausea).Treatment PAYROLL OFFICER:None.EMS Treatment PAYROLL OFFICER:EMS treatment verbally communicated and report reviewed. See [...] Per Patient. BMI: 30.2. --07:57 02/17/21 GEORGE Czaares.MedicationsAlbuterol Sulfate Inhalation 2 unit doses. Eliquis Oral. [...] a day. 2 Clinical Report - Nurses [facility] Emergency Department [address] [place] [address] Phone #: ext- [phone] 02/17/2021 07:54 Patient: [...] Guzman RN. 3 Clinical Report - Nurses [facility] Emergency Department [address] [place] [address] Phone #: [phone] ext- [phone] 02/17/2021 07:54 Patient: FABIANO RAMIREZ Sex: F [...] Patient verbalized understanding. Written instructions provided in Belizean. The patient was discharged by the physician. [...] rce(s) Supporting Document(s) ID Date Data Source [id number] 02/17/2021 07:58:00 AM EDT [facility] 1 Clinical Report - Physicians/Mid Levels [facility] Emergency Department [address] [place] [address] Phone #: ext- [phone] 02/17/2021 07:54 Patient: [...] No trauma. She states the ED at [facility] just wraps her toes, she thinks they wrapped it too tight. She wears a air cast and walks with a walker at home.). Patient denies an injury. Similar symptoms previously. Recent medical care: The patient was seen recently in the emergency department. ( Multiple times at [facility] for urinary complaints).REVIEW OF SYSTEMSNo chest [...] inspection. 2 Clinical Report - Physicians/Mid Levels [facility] Emergency Department [address] [place] [address] Phone #: ext- [phone] 02/17/2021 07:54 Patient: FABIANO RAMIREZ Sex: F [...] UA done over last several months at [facility]. Not currently on antibiotics 3 Clinical Report - Physicians/Mid Levels [facility] Emergency Department [address] [place] [address] Phone #: ext- [phone] 02/17/2021 07:54 Patient: [...] tablet. Refills: 0. Substitution permitted. Pharmacy - [facility] - [address] ; [place] [address]. . 4 Clinical Report - Physicians/Mid Levels [facility] Emergency Department [address] [place] [address] Phone #: ext- [phone] 02/17/2021 07:54 Patient: FABIANO RAMIREZ Sex: F : 1955 Age: 65y Follow-up: Follow up with your healthcare provider. Understanding of the discharge instructions verbalized by patient.(Electronically signed by Serge Echeverria 02/17/2021 11:03) Name Value Range Interpretation Code Description Data Melanie rce(s) Supporting Document(s) ID Date Data Source [id number] 02/20/2021 07:22:00 AM EDT [facility] Name Value Range Interpretation Code Description Data Melanie rce(s) Supporting Document(s) CULTURE URINE [facility] spital _CULTURE URINE_$$[id number]$$815115$$690579$$819799$$083104$$568586$$588741$$273946$$355208$$ 237630$$822407$$617321$$864420$$288937$$430835$$606794$$210078$$542864$$983632$$ 005293$$030743$$015878$$477425$$579718$$084465$$351056$$825878 -- Continued on next page --Patient: CANDIDO MARIO Order: [id number] Page 2Culture: CULTURE URINE Status: Final ====$$[id number]$$[id number] DATE/TIME: 02/19/2021 08:06Culture: CULTURE URINE Status: FinalUrine Culture,Comprehensive: W4Qhqkf urogenital flora25,000-50,000 colony forming units per mLP1 Test performed by: [facility] KATY #: [id number] [address] [place] [address] [id number] [facility] [id number] Director : Ross Jeffers MD NPI #:Manager Logistic : 02/20/21.0722.XMT.SENT REF ID Date Data Source [id number] 02/17/2021 09:31:00 AM EDT [facility] Name Value Range Interpretation Code Description Data Melanie rce(s) Supporting Document(s) URINALYSIS [facility] URINALYSIS SOURCE R [facility] COLOR yellow NORMAL: Yellow [facility] CLARITY hazy NORMAL: Clear [facility] Specific gravity of Urine by Test strip 1.015 1.001 - 1.030 [facility] pH 8 5 - 9 [facility] Glucose [Mass/volume] in Urine by Test strip NORM NORMAL: Negat [facility] Bilirubin.total [Presence] in Urine by Test strip NEG NORMAL: Negative [facility] Ketones [Presence] in Urine by Test strip NEG NORMAL: Negative [facility] Protein [Mass/volume] in Urine by Test strip NEG NORMAL: Negat [facility] Nitrite [Presence] in Urine by Test strip NEG NORMAL: Negative [facility] BLOOD 25 NORMAL: Negative A [facility] LEUK EST 100 NORMAL: Negative [facility] Urobilinogen [Mass/volume] in Urine by Test strip NOR less deanna n 1.0 mg/dL [facility] MICROSCOPIC See Below [facility] ital WBC 10 - 15 NORMAL: NONE [facility]EN [facility] Erythrocytes [#/volume] in Urine by Test strip 15 - 20 NORMAL: NON E SEEN A [facility] EPITHELIAL MODERATE NORMAL: NONE SEEN A [facility] Bacteria [Presence] in Urine sediment by Light microscopy 1+ SMALL NORMAL: NONE SEEN [facility] Amorphous sediment [Presence] in Urine sediment by Light yong roscopy 2+ NORMAL: NONE SEEN [facility] Crystals [type] in Urine sediment by Light microscopy See Below [facility] TRIPLE PHOS 3+ NORMAL: NONE SEEN A [facility] ID Date Data Source [id number] 12/10/2020 05:37:00 AM EDT [facility] 1 OrderSheet [facility] Emergency Department [address] [place] [address] Phone #: ext- [phone] 12/10/2020 05:37 Patient: [...] rce(s) Supporting Document(s) ID Date Data Source [id number] 12/10/2020 05:37:00 AM EDT [facility] 1 Medication Reconciliation Report [facility] Emergency Department [address] [place] [address] Phone #: ext- [phone] 12/10/2020 05:37 Patient: [...] Emergency Department: 2 Medication Re conciliation Report [facility] Emergency Department [address] [place] [address] Phone #: ext- [phone] 12/10/2020 05:37 Patient: FABIANO RAMIREZ Sex: F : 1955 Age: 65yMacrobid [PO] PO 100 mg, administered: 07:11 12/10/2020The following Medications were prescribed to the patient:Macrobid 100 mg capsule Take 1 capsule twice a day for 7 days -- Dispense 14 capsule. Refills: 0.Substitution permitted.Pharmacy - [facility] - [address] ; [place] [address]. . -- Xavier Robertson, Physician Name Value Range Interpretation Code Description Data Melanie rce(s) Supporting Document(s) ID Date Data Source [id number] 12/10/2020 05:37:00 AM EDT [facility] 1 Medication Administration Record [facility] Emergency Department [address] [place] [address] Phone #: [phone] hzb- [phone] 12/10/2020 05:37 Patient: FABIANO RAMIREZ Sex: F : 1955 Age: 65yWeight: 68.0 kgHeight/Length: 59 inBMI: 30.3ALLERGIES: Darvacet, Demerol, Microdentin Date/Time Medication Administered Medication OrderedGiven MACROBID [PO] (NITROFURANTOIN Macrobid PO 100 mg (NOW)07:11 12/10/2020 MONOHYD MACRO)Roxanne Lerner R.N. Dose: 100 mg PO Name Value Range Interpretation Code Description Data Melanie rce(s) Supporting Document(s) ID Date Data Source [id number] 12/10/2020 05:37:00 AM EDT [facility] 1 General Instructions [facility] Emergency Department [address] [place] [address] Phone #: ext- [phone] 12/10/2020 05:37 Patient: [...] Dispense 14 capsule. Refills: 0.Substitution permitted.Pharmacy - [facility] - [address] ; [place] [address]. .Follow-up:Follow up with your healthcare provider in three days for staple removal. Call for an appointment. Summaryof care provided to patient via paper.Understanding of the discharge instructions verbalized. ADDITIONAL INFORMATIONBladder Infection, Female (Adult) 2 General Instructions [facility] Emergency Department [address] [place] [address] Phone #: ext- [phone] 12/10/2020 05:37 Patient: [...] Urgent need to urinate 3 General Instructions [facility] Emergency Department [address] [place] [address] Phone #: ext- [phone] 12/10/2020 05:37 Patient: [...] a diaphragm for controlTreatment 4 General Instructions [facility] Emergency Department [address] [place] [address] Phone #: ext- [phone] 12/10/2020 05:37 Patient: [...] your healthcare provider.Follow-up care 5 General Instructions [facility] Emergency Department [address] [place] [address] Phone #: ext- [phone] 12/10/2020 05:37 Patient: [...] if the results will affect your treatment.Call [phone] [phone] if any of the following occur: [...] swelling in the outer vaginal area (labia) 9582-4475 [employer]. [address] [place] [address]. All rights reserved. This information is not intended as asubstitute for professional medical care. Always follow your healthcare professional's instructions. You have been given the following additional information: Bladder Infection, Female (Adult) 6 General Instructions [facility] Emergency Department [address] [place] [address] Phone #: ext- [phone] 12/10/2020 05:37 [id number] Sex: F : 1955 Age: 65y(Electronically signed by Xavier Robertson, Physician 12/10/2020 07:04) Name Value Range Interpretation Code Description Data Melanie rce(s) Supporting Document(s) ID Date Data Source [id number] 12/10/2020 05:37:00 AM EDT [facility] 1 Clinical Report - Nurses [facility] Emergency Department [address] [place] [address] Phone #: ext- [phone] 12/10/2020 05:37 Patient: [...] LEG PAIN.Alert. No acute distress.This started today.Treatment PAYROLL OFFICER:None.SEPSIS SCREEN: SIRS SCREEN NEGATIVE. SEPSIS SCREEN NEGATIVE. [...] Noam Carney.AllergiesDarvacet.Demerol. 2 Clinical Report - Nurses [facility] Emergency Department [address] [place] [address] Phone #: ext- [phone] 12/10/2020 05:37 Patient: FABIANO RAMIRZE Sex: F : 1955 Age: 65y Microdentin. [...] membranes are 3 Clinical Report - Nurses [facility] Emergency Department [address] [place] [address] Phone #: ext- [phone] 12/10/2020 05:37 Patient: [...] Patient verbalized understanding. Written instructions provided in Belizean. The patient was discharged home and accompanied [...] rce(s) Supporting Document(s) ID Date Data Source [id number] 12/10/2020 05:37:00 AM EDT [facility] 1 Clinical Report - Physicians/Mid Levels [facility] Emergency Department [address] [place] [address] Phone #: ext- [phone] 12/10/2020 05:37 Patient: [...] surgery. 2 Clinical Report - Physicians/Mid [facility] Emergency Department [address] [place] [address] Phone #: ext- [phone] 12/10/2020 05:37 Patient: [...] process. 3 Clinical Report - Physicians/Mid Levels [facility] Emergency Department [address] [place] [address] Phone #: ext- [phone] 12/10/2020 05:37 Patient: [...] arise. 4 Clinical Report - Physicians/Mid Levels [facility] Emergency Department [address] [place] [address] Phone #: ext- [phone] 12/10/2020 05:37 Patient: FABIANO RAMIREZ Sex: F : 1955 Age: 65y Prescription Medications: Macrobid 100 mg capsule Take 1 capsule twice a day for 7 days -- Dispense 14 capsule. Refills: 0. Substitution permitted. Pharmacy - [facility] - [address] [place] [address]. . Follow-up: Follow up with your healthcare provider in three days for staple removal. Call for an appointment. Summary of care provided to patient via paper. Understanding of the discharge instructions verbalized.(Electronically signed by Xavier Robertson, Physician 12/10/2020 07:04) Name Value Range Interpretation Code Description Data Melanie rce(s) Supporting Document(s) ID Date Data Source [id number] 12/14/2020 09:42:00 AM EDT [facility] Name Value Range Interpretation Code Description Data Melanie rce(s) Supporting Document(s) CULTURE URINE [facility] _CULTURE URINE_$$575382$$016818$$665491$$465791$$283537$$805956$$258117$$255097$$438990$$ 477733$$091648$$022979$$957351$$383470$$866878$$544551$$304477$$105586$$765317$$ 056759$$773441$$938306$$333153$$418390$$156871$$863337$$837252 -- Continued on next page --Patient: CANDIDO MARIO Order: Page 2Culture: CULTURE URINE Status: Final ==== -- Continued on next page --Patient: CANDIDO MARIO Order: Page 2Culture: CULTURE URINE Status: Prelim =====$$[id number]$$[id number] DATE/TIME: 12/14/2020 09:06Culture: CULTURE URINE Status: FinalIsolate [...] on 12/13/2020 05:37 ET Escherichia coliUrine Culture,Comprehensive: K0Hzdyiciuzqr coli Flag: APatient: CANDIDO MARIO Order: [id number] Page 3Culture: CULTURE URINE Status: Final ISOLATE [...] S S . . . . . .06804-1Vjuxfjjnia S S . . . . . .267-5Imipenem S S . . . . . .279-0Levofloxacin R R . . . . . .13195- 8Meropenem S S . . . . . .6652-2Nitrofurantoin S S . . . . . .363-2Piperacillin/Tazobactam S S . . . . . .412-7Tetracycline S S . . . . . .496-0Tobramycin S S . . . . . .508-2 Trimethoprim/Sulfa S S . . . . . .516-5P1 [facility] by: [facility] #: [id number] [address] [place] [id number] [facility] [id number] Director : Ross Jeffers MD NPI #:Manager Logistic : 12/13/20.1334.XMT.SENT REF 12/14/20.0942.XMT.SENT REF ID Date Data Source [id number] 12/10/2020 06:34:00 AM EDT [facility] Name Value Range Interpretation Code Description Data Melanie rce(s) Supporting Document(s) URINALYSIS [facility] yellow NORMAL: Yellow [facility] CLARITY cloudy NORMAL: Clear [facility] Specific gravity of Urine by Test strip 1.015 1.001 - 1.030 [facility] pH 8 5 - 9 [facility] Glucose [Mass/volume] in Urine by Test strip NORM NORMAL: Negat [facility] Bilirubin.total [Presence] in Urine by Test strip NEG NORMAL: Negative [facility] Ketones [Presence] in Urine by Test strip NEG NORMAL: Negative [facility] Protein [Mass/volume] in Urine by Test strip NEG NORMAL: Negat [facility] Nitrite [Presence] in Urine by Test strip NEG NORMAL: Negative [facility] BLOOD 10 NORMAL: Negative [facility] Leukocyte esterase [Presence] in Urine by Test strip 500 KANE L: Negative [facility] Urobilinogen [Mass/volume] in Urine by Test strip NOR less deanna n 1.0 mg/dL [facility] MICROSCOPIC See Below [facility] ital WBC 20 - 30 NORMAL: NONE SEEN [facility] Erythrocytes [#/volume] in Urine by Test strip 3 - 5 NORMAL: NON E SEEN [facility] EPITHELIAL MODERATE NORMAL: NONE SEEN A [facility] Bacteria [Presence] in Urine sediment by Light microscopy 2+ MOD NORMAL: NONE SEEN A [facility] Amorphous sediment [Presence] in Urine sediment by Light yong roscopy 2+ NORMAL: NONE SEEN [facility] ID Date Data Source [id number] 12/06/2020 09:09:00 AM EDT [facility] [address] [place] [address] PHONE: [phone] FAX: [phone] Name .................. : CANDIDO MARIO Acct Number.................. : [id number] ROOM. ................. : [place]-05 Number ................... : [id number] Stay type ............. : E/R Discharge Date......... ... : 12/01/20 Admit Date ......... : 12/01/20 [facility] .................... [facility] Date of ....... : 1955 Family Phys ................... : JENNY NAN Phone .................. : [phone] Age ................................ : 65 Film# .................. .:[id number] Sex ................................. : F Unsigned transcriptions are preliminary reports and do not represent a medical or legal document CT ST NECK W/O CONTRAST 34574 COMPLETE:12/01/20 15:07 RUFUS [id number] Reason(s): evaluate for foreign body as she [...] and further evaluation, Page 1 of 2 [place] [address] PHONE: [phone] FAX: [phone] Name .................. : CANDIDO MARIO Acct Number.................. : [id number] ROOM. ................. : VT-05 Number ................... : [id number] Stay type ............. : E/R Discharge Date......... ... : 12/01/20 Admit Date ......... : 12/01/20 Admit Phys .................... : VIJAYA Date of ....... : Family Phys ................... : JENNY NAN Phone .................. : [phone] Age ................................ : 65 Film# .................. .:[id number] Sex ................................. : F Unsigned transcriptions are preliminary reports and do not represent a medical or legal document CT ST NECK W/O CONTRAST 68489 COMPLETE:12/01/20 15:07 RUFUS [id number] Reason(s): evaluate for foreign body as she [...] rce(s) Supporting Document(s) ID Date Data Source [id number] 12/01/2020 12:20:00 PM EDT [facility] 1 OrderSheet [facility] Emergency Department [address] [place] [address] Phone #: ext- [phone] 12/01/2020 12:07 Patient: [...] rce(s) Supporting Document(s) ID Date Data Source [id number] 12/01/2020 12:20:00 PM EDT [facility] 1 Medication Reconciliation Report [facility] Emergency Department [address] [place] [address] Phone #: ext- [phone] 12/01/2020 12:07 Patient: [...] the Emergency Department: 2 Medication Reconciliation Report [facility] Emergency Department [address] [place] [address] Phone #: ext- [phone] 12/01/2020 12:07 Patient: FABIANO RAMIREZ Sex: F : 1955 Age: 65yGI Cocktail [PO] PO 50 mL, administered: 12:40 12/01/2020tivan [IM] IM 1 mg, administered: 14:25 12/01/2020The following Medications were prescribed to the patient:None. Name Value Range Interpretation Code Description Data Melanie rce(s) Supporting Document(s) ID Date Data Source [id number] 12/01/2020 12:20:00 PM EDT [facility] 1 Medication Administration Record [facility] Emergency Department [address] [place] [address] Phone #: ext- [phone] 12/01/2020 12:07 Patient: [...] rce(s) Supporting Document(s) ID Date Data Source [id number] 12/01/2020 12:20:00 PM EDT [facility] 1 General Instructions [facility] Emergency Department [address] [place] [address] Phone #: ext- [phone] 12/01/2020 12:07 Patient: [...] an ear, nose and throat physician (an tavern keeper)and a sleep medicine physician in three days. Reason for referral: evaluation. Summary of care provided to patientvia paper. ADDITIONAL INFORMATIONDysphagia (Adult) 2 General Instructions [facility] Emergency Department [address] [place] [address] Phone #: ext- [phone] 12/01/2020 12:07 Patient: FABIANO RAMIREZ [facility]#: [id number] Sex: F : 1955 Age: 65y Dysphagia [...] evaluate you using X-ray, 3 General Instructions [facility] Emergency Department [address] [place] [address] Phone #: ext- [phone] 12/01/2020 12:07 [id number] Sex: F : 1955 Age: 65yspecial esophagus [...] for any of the followin General Instructions [facility] Emergency Department [address] [place] [address] Phone #: tra- [phone] 12/01/2020 12:07 Patient: FABIANO RAMIREZ Sex: F : 1955 Age: 65y Inability to keep down food or liquid Symptoms that get worse quickly Coughing that won't stop Continuing to lose weight Fever of 100.4F (38C) or higher, or as directed by your healthcare provider Other symptoms as indicated by your healthcare providerCall 00[facility] 64 for any of the following: Trouble breathing Inability to talk Drooling, inability to control secretions Loss of consciousness [phone] [employer]. [address] [place] [address]. All rights reserved. This information is not intended as asubstitute for professional medical care. Always follow your healthcare professional's instructions. You have been given the following additional information: Dysphagia (Adult)(Electronically signed by Karen Saucedo 12/01/2020 19:10) Name Value Range Interpretation Code Description Data Melanie rce(s) Supporting Document(s) ID Date Data Source [id number] 12/01/2020 12:20:00 PM EDT [facility] 1 Clinical Report - Nurses [facility] Emergency Department [address] [place] [address] Phone #: [phone] zrq- [phone] 12/01/2020 12:07 Patient: FABIANO RAMIREZ Sex: F : 1955 Age: 65yTRIAGEArrived by EMS. Historian: EMS and patient.Acuity: LEVEL 4.Chief Complaint: SORE THROAT.This started yesterday. 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 See [...] Guzman RN.AllergiesDarvacet. 2 Clinical Report - Nurses [facility] Emergency Department [address] [place] [address] Phone #: ext- [phone] 12/01/2020 12:07 Patient: [...] in lowest 3 Clinical Report - Nurses [facility] Emergency Department [address] [place] [address] Phone #: ext- [phone] 12/01/2020 12:07 Patient: FABIANO RAMIREZ Sex: F [...] Patient verbalized understanding. Written instructions provided in Belizean. The patient was discharged by the physician. She was discharged home. She left ambulatory. Adjustment Clerk driving. --16:49 12/01/20 Myles Landis R.N. 16:48 12/01/20. BP: 142/86. MAP: 104. HR: 74. RR: 18. O2 saturation: 97%. Temp: deferred. Pain level now: 08/30. --16:49 12/01/20 Myles Landis R.N. Departure time: 16:50 12/01/2020. --16:50 12/01/20 Myles Landis R.N.Locked/Released at 12/01/2020 16:50 by Myles Landis R.N. Name Value Range Interpretation Code Description Data Melanie rce(s) Supporting Document(s) ID Date Data Source [id number] 12/01/2020 12:20:00 PM EDT [facility] 1 Clinical Report - Physicians/Mid Levels [facility] Emergency Department [address] [place] [address] Phone #: ext- [phone] 12/01/2020 12:07 Patient: FABIANO RAMIREZ Sex: F : 1955 Age: 65y Time Seen: 12:28 12/01/2020; initial patient contact, initial documentation. Arrived- By ambulance. Historian- patient. Disposition decision: 16:27 12/01/2020.HISTORY OF PRESENT ILLNESS Chief Complaint: SORE THROAT. FOREIGN BODY SENSATION IN THROAT. 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 It was abrupt in onset and has [...] pain on swallowing. she was seen at [facility] where they did an xray [...] Surgeries: 2 Clinical Report - Physicians/Mid Levels [facility] Emergency Department [address] [place] [address] Phone #: ext- [phone] 12/01/2020 12:07 Patient: FABIANO RAMIREZ Sex: F [...] 3. 3 Clinical Report - Physicians/Mid Levels [facility] Emergency Department [address] [place] [address] Phone #: [phone] ext- [phone] 12/01/2020 12:07 [id number] Sex: F : 1955 Age: 65yLABS, X-RAYS, [...] day. 4 Clinical Report - Physicians/Mid Levels [facility] Emergency Department [address] [place] [address] Phone #: ext- [phone] 12/01/2020 12:07 [facility]: [id number] Sex: F : 1955 Age: 65y Meclizine [...] an ear, nose and throat physician (an tavern keeper) and a sleep medicine physician in three days. Reason for referral: evaluation. Summary of care provided to patient via paper.(Electronically signed by Karen Saucedo 12/01/2020 19:10) Name Value Range Interpretation Code Description Data [facility](s) Supporting Document(s) ID Date Data Source [id number] 11/04/2020 09:59:00 PM EDT [facility] Name Value Range Interpretation Code Description Data [facility] Supporting Document(s) Appearance, Urine RFX Laboratory test result [facility] ([facility]) PH,Urine RFX 7.0 units 5.0-9.0 [facility] ([facility]) Color, Urine RFX Laboratory test result [facility] ([facility]) Glucose, Urine (Ua) Auto RFX Laboratory test result [facility] Specific Cornish Ur Auto RFX 1.013 1.002-1.035 [facility] ([facility]) Protein, Urine Auto RFX Laboratory test result [facility]) Ketone, Urine Auto RFX Laboratory test result [facility] ([facility]) Urobilinogen, Urine Auto RFX 0.2 mg/dL 0.0-2.0 [facility] Bilirubin, Urine Auto RFX Laboratory test result [facility] ([facility]) Nitrite, Urine Auto RFX Laboratory test result [facility] ([facility]) Blood, Urine Blood RFX Laboratory test result [facility] ([facility]) Leukocyte Esterase Ur Auto RFX Laboratory test result [facility] ([facility]) RBC, Urine Auto RFX 2 /HPF 0-3 [facility] WBC, Urine Auto RFX 12 /HPF 0-3 [facility] ([facility] Squam Epithelial Cell Ur Aurfx 1 /HPF 0-6 [facility] ([facility]) Mucus, Urine RFX Laboratory test result [facility] ([facility]) Bacteria, Urine Auto RFX Laboratory test result [facility] ([facility]) Hyaline Cast, Urine Auto RFX 1 /LPF 0-1 M [facility] ([facility]) ID Date Data Source [id number] 11/04/2020 09:59:00 PM EDT [facility] ([facility]) Name Value Range Interpretation Code Description Data Melanie rce(s) Supporting Document(s) Reflex Urine Culture Laboratory test result [facility] ([facility]) <content>FULL REPORT IN LAB NOTES (eCW [...] 1 S</content>
<content></content> ID Date Data Source [id number] 10/29/2020 11:06:00 AM EDT [facility] ([facility]) Name Value Range Interpretation Code Description Data Melanie rce(s) Supporting Document(s) Reflex Urine Culture Laboratory test result [facility] ([facility]) <content>FULL REPORT IN LAB NOTES (eCW [...] 2 S</content>
<content></content> ID Date Data Source [id number] 10/29/2020 11:06:00 AM EDT [facility] Name Value Range Interpretation Code Description Data Melanie rce(s) Supporting Document(s) Appearance, Urine RFX Laboratory test result [facility] ([facility]) PH,Urine RFX 7.0 units 5.0-9.0 [facility] Color, Urine RFX Laboratory test result [facility] ([facility]) Specific Cornish Ur Auto RFX 1.012 1.002-1.035 [facility] Protein, Urine Auto RFX Laboratory test result [facility] ([facility]) Glucose, Urine (Ua) Auto RFX Laboratory test result [facility] ([facility]) Urobilinogen, Urine Auto RFX 0.2 mg/dL 0.0-2.0 [facility]) Ketone, Urine Auto RFX Laboratory test [facility]) Bilirubin, Urine Auto RFX Laboratory test result [facility] ([facility]) Nitrite, Urine Auto RFX Laboratory [facility]) Leukocyte Esterase Ur Auto RFX Laboratory test result [facility] ([facility]) WBC, Urine Auto RFX 29 /HPF 0-3 [facility] Blood, Urine Blood RFX Laboratory test result [facility] ([facility]) RBC, Urine Auto RFX 12 /HPF 0-3 [facility] Squam Epithelial Cell Ur Aurfx 1 /HPF 0-6 [facility] ([facility]) Bacteria, Urine Auto RFX Laboratory test result [facility] ([facility]) Hyaline Cast, Urine Auto RFX 1 /LPF 0-1 M [facility]) Mucus, Urine RFX Laboratory test result [facility] ([facility]) Amorphous Sediment RFX Laboratory test result [facility]) ID Date Data Source [id number] 10/29/2020 10:47:00 AM EDT [facility] Name Value Range Interpretation Code Description Data Melanie rce(s) Supporting Document(s) SARS COVID ANTIGEN NEGATIVE [facility] This lab was ordered by PEYTON vargas nd reported by [facility]. ID Date Data Source [id number] 10/29/2020 10:47:00 AM EDT [facility] ([facility]) Name Value Range Interpretation Code Description Data Melanie rce(s) Supporting Document(s) Laboratory test finding (navigational concept) Laboratory test result [facility] ([facility]) The Tory SARS Antigen ALISTAIR does not diff erentiate between SARS-CoV and SARS-CoV-2. Negative results do not rule out COVID-19 and should not be used as the sole basis for treatment. Negative results should be considered in the context of a patient's recent exposure, history and the presence of clinical signs and symptoms consistent with COVID-19. ID Date Data Source [id number] 10/19/2020 08:54:00 [place] [address] PHONE: [phone] FAX: [phone] Name .................. : CANDIDO MARIO Acct Number.................. : [id number] ROOM. ................. : TR-04 MR Number ................... : [id number] Stay type ............. : E/R Discharge Date......... ... : 10/14/20 Admit Date ......... : 10/13/20 Admit Phys .................... : VIJAYA Date of ....... : 1955 Family Phys ................... : JENNY GARCIA Phone . ................. : [phone] Age ................................ : 65 Film# .................. .:[id number] Sex ................................. : F Unsigned transcriptions are preliminary reports and do not represent a medical or legal document CHEST PORTABLE [id number] COMPLETE:10/14/20 00:54 [facility] [place] [place] [address] Reason(s): cough hemoptysis PORTABLE CHEST X-RAY: [...] By Blane Pfeiffer MD , 10/19/20 08:55, [facility] Transcribe Initials: SHANNAN , Transcribe Date: 10/14/20 13:06, Dictation Date: Copy for: 710 MED REC DISCHARGED Page 1 of 1 Name Value Range Interpretation Code Description Data Melanie rce(s) Supporting Document(s) ID Date Data Source [id number] 10/16/2020 09:15:00 AM EDT [address] [address] RESPIRATORY CARE REPORT ==== ---------NAME------- NUMBER SEX AGE ADMIT DISC. XRAY# F/C KELSEY MARIO [id number] F 65 10/13/20 10/14/20 [id number] MB4 E/R DATE OF : 1955 M/R# [id number] #: [id number] TR-04 LOCATION: [facility] [address] COMPLETE:10/14/20 0 0:29 T 74831 PHYSICIAN: VIJAYA Name Value Range Interpretation Code Description Data Melanie rce(s) Supporting Document(s) ID Date Data Source [id number] 10/13/2020 11:01:00 PM EDT [facility] 1 OrderSheet [facility] Emergency Department [address] [place] [address] Phone #: ext- [phone] 10/13/2020 23:01 Patient: [...] Order 23:50 ; Karen Saucedo 2 OrderSheet [facility] Emergency Department [address] [place] [address] Phone #: ext- [phone] 10/13/2020 23:01 Patient: [...] InitialedAccucheck 23:47 10/13/2020 23:59 Angelika, 3 OrderSheet [facility] Emergency Department [address] [place] [address] Phone #: ext- [phone] 10/13/2020 23:01 Patient: FABIANO RAMIREZ Sex: F [...] rce(s) Supporting Document(s) ID Date Data Source [id number] 10/13/2020 11:01:00 PM EDT [facility] 1 Medication Reconciliation Report [facility] Emergency Department [address] [place] [address] Phone #: ext- [phone] 10/13/2020 23:01 Patient: [...] Home Medication information:patient 2 Medication Reconciliation Report [facility] Emergency Department [address] [place] [address] Phone #: ext- [phone] 10/13/2020 23:01 Patient: [...] Dispense 14 tablet. Refills: 0.Substitution permitted.Pharmacy - [facility] - [address] ; [place] [address]. . -- Karen Saucedo Name Value Range Interpretation Code Description Data Melanie rce(s) Supporting Document(s) ID Date Data Source [id number] 10/13/2020 11:01:00 PM EDT [facility] 1 Medication Administration Record [facility] Emergency Department [address] [place] [address] Phone #: ext- [phone] 10/13/2020 23:01 Patient: FABIANO RAMIREZ Sex: F : 1955 Age: 65yWeight: 91.6 kgHeight/Length: 62 inBMI: 37ALLERGIES: Darvacet, Demerol, Microdentin Date/Time Medication Administered Medication OrderedStart ROCEPHIN (1GM/50ML) [IVPB] Rocephin (1gm/50mL) IVPB 240790:56 10/14/2020 (CEFTRIAXONE SODIUM) mg with Dextrose 50 ml spike Noam Ramesh, Dose: 1 gm IVPB (D5W)---- Rate: 100 mL/hr over 30 minute(s)Stop Dispensed: 50 mL bag02:58 10/14/2020 Site: #1 left Noam Estrada, Name Value Range Interpretation Code Description Data Melanie rce(s) Supporting Document(s) ID Date Data Source [id number] 10/13/2020 11:01:00 PM EDT [facility] 1 General Instructions [facility] Emergency Department [address] [place] [address] Phone #: ext- [phone] 10/13/2020 23:01 Patient: [...] Dispense 14 tablet. Refills: 0.Substitution permitted.Pharmacy - [facility] - [address] ; [place] [address]. .Follow-up:Follow up with your healthcare provider Friday if not better. Reason for referral: evaluation. Summary ofcare provided to patient via paper. ADDITIONAL INFORMATION 2 General Instructions [facility] Emergency Department [address] [place] [address] Phone #: ext- [phone] 10/13/2020 23:01 Patient: FABIANO RAMIREZ Sex: F [...] prescribed for this condition. 3 General Instructions [facility] Emergency Department [address] [place] [address] Phone #: ext- [phone] 10/13/2020 23:01 Patient: [...] loosen secretions in the nose and lungs. Mzif-ttk-xfhjiod cold medicines will not shorten the length of time you're sick, but they may be helpful for the following symptoms: cough, sore throat, and nasal and sinus congestion. If you take prescription medicines, ask your healthcare provider or pharmacist which uckr-xoy-brgqklw medicines are safe to use. (Note: Don't [...] wheezing, or difficulty breathing 4 General Instructions [facility] Emergency Department [address] [place] [address] Phone #: ext- [phone] 10/13/2020 23:01 Patient: FABIANO RAMIREZ Sex: F : 1955 Age: 65y Coughing up blood Very severe pain with swallowing, especially if it goes along with a muffled voice [employer]. [address] [place] [address]. All rights reserved. This information is not [...] of cystitis isan infection. 5 General Instructions [facility] Emergency Department [address] [place], [place] [address] Phone #: yod- [phone] 10/13/2020 23:01 Patient: FABIANO RAMIREZ Sex: F [...] put in Older age 7 General Instructions [facility] Emergency Department [address] [place] [address] Phone #: ext- [phone] 10/13/2020 23:01 Patient: FABIANO RAMIREZ Sex: F [...] and vegetables, and fiber. 7 General Instructions [facility] Emergency Department [address] [place] [address] Phone #: ext- [phone] 10/13/2020 23:01 Patient: FABIANO RAMIREZ Sex: F [...] the results will affect your treatment.Call 911Call 917 if any of the following occur: Trouble [...] outer vaginal area (labia) 8 General Instructions [facility] Emergency Department [address] [place] [address] Phone #: ext- [phone] 10/13/2020 23:01 Patient: FABIANO RAMIREZ Sex: F : 1955 Age: 65y [phone] [employer] [place], [place] [id number]. All rights reserved. This information is not intended as asubstitute for professional medical care. Always follow your healthcare professional's instructions. You have been given the following additional information: URI, Viral, No Abx (Adult) Bladder Infection, Female (Adult)(Electronically signed by Karen Saucedo 10/15/2020 07:57) Name Value Range Interpretation Code Description Data Melanie rce(s) Supporting Document(s) ID Date Data Source [id number] 10/13/2020 11:01:00 PM EDT [facility] 1 Clinical Report - Nurses [facility] Emergency Department [address] [place] [address] Phone #: ext- [phone] 10/13/2020 23:01 Patient: [...] No acute distress.Onset. 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 2 Clinical Report - Nurses [facility] Emergency Department [address] [place] [address] Phone #: ext- [phone] 10/13/2020 23:01 Patient: [...] pre- and 3 Clinical Report - Nurses [facility] Emergency Department [address] [place] [address] Phone #: ext- [phone] 10/13/2020 23:01 Patient: FABIANO RAMIREZ Sex: F : 1955 Age: 65y post-medication administration. Information reviewed with patient including reason for taking this medication, signs of allergic reaction and precautions. Verbalizes understanding. 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 --02:36 10/14/20 Roxanne Lerner R.N. 02:37 [...] Patient verbalized understanding. Written instructions provided in Belizean. No treatment instructions. The patient was discharged by the physician. She was discharged home. She left ambulatory and via taxi. 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 --04:24 10/14/20 Noam Carney.Locked/Released at 10/14/2020 04:25 by Noam Carney Name Value Range Interpretation Code Description Data Melanie rce(s) Supporting Document(s) ID Date Data Source [id number] 10/13/2020 11:01:00 PM EDT [facility] 1 Clinical Report - Physicians/Mid Levels [facility] Emergency Department [address] [place] [address] Phone #: ext- [phone] 10/13/2020 23:01 Patient: FABIANO RAMIREZ Sex: F [...] surgery. 2 Clinical Report - Physicians/Mid Levels [facility] Emergency Department [address] [place] [address] Phone #: ext- [phone] 10/13/2020 23:01 Patient: FABIANO RAMIREZ Sex: F [...] Interpretation 3 Clinical Report - Physicians/Mid Levels [facility] Emergency Department [address] [place] [address] Phone #: ext- [phone] 10/13/2020 23:01 Patient: FABIANO RAMIREZ Sex: F [...] (Reference) CT CTA CHEST NON-CORONARY W CON [facility] [address] [place] [address] ---------NAME--------- NUMBER SEX AGE ADMIT DISC. XRAY# F/C TYPE CANDIDO MARIO [id number] F 65 10/13/20 [id number] E/R DATE OF : 1955 M/R# [id number] #: [id number] TR-04 LOCATION: TRANSCRIBED: 10/14/20 3:[address] CTA CHEST NON-CORONARY W [id number] COMPLETED:10/14/20 2:52 [facility] [place] [address] Reason(s): hemoptysis -- PHYSICIAN: VIJAYA -- -- R A D I O L O G Y R E P O R T -- PATIENT HISTORY: hemopstysis. isovue 370 75 ml [id number] exp 09/12. estimated dose 394.5. actual dose 395.6 mGy*cm. Time Out performed. Correct patient with 2 identifiers, type and amount of contrast used, correct body part and side all verified prior to examination. / COR SLAB MIP (DICOM Hx) EXAM: CTA Chest with Intravenous Contrast for PE evaluation -- CLINICAL HISTORY:hemopstysis. isovue 370 75 ml [id number] exp 09/12. estimated dose 394.5. actual dose [...] aorta. 4 Clinical Report - Physicians/Mid [facility] Emergency Department [address] [place] [address] Phone #: ext- [phone] 10/13/2020 23:01 Patient: [...] 7.0) 5 Clinical Report - Physicians/Mid Levels [facility] Emergency Department [address] [place] [address] Phone #: ext- [phone] 10/13/2020 23:01 Patient: [...] Male GFR Interprentation 20-49 yrs >60 mL/min Urvypc32-15 yrs >56 mL/min Normal 60-69 yrs >49 mL/min Normal 70-79yrs>42 mL/min Normal 80 and above >35 mL/min Normal Female GFRInterpretation 20-39 yrs >60 mL/min Normal 40-49 yrs >58 mL/minNormal 50-59 yrs >51 mL/min Normal 60-69 yrs >45 mL/min Akbnny00-71 yrs >39 mL/min Normal 80 and above >32 mL/min NormalLactic Acid: (OLE: 10/14/2020 00:01) ( [facility] 10/14/2020 00:22) Final results Test Result Flag [...] VenousThrombosis, Pulmonary Embolus, Tissue heart valves, Acute [place], Atrial Fibrillation, Valvular heartdisease and recurrent Systemic Embolism. - International Normalized Ratio (INR): 2.5 - 3.5 6 Clinical Report - Physicians/Mid Levels [facility] Emergency Department [address] [place] [address] Phone #: ext- [phone] 10/13/2020 23:01 Patient: FABIANO RAMIREZ Sex: F [...] 10/14/2020 00:02) CanceledMagnesium: (OLE: 10/14/2020 00:01) ( NdgRcvd 10/14/2020 00:40) Final results Test Result Flag Units (Reference) MAGNESIUM 2.2 MG/DL (1.7 - 2.2)Chest Portable 1 View: (OLE: 10/13/2020 23:47) ( MsgRcvd 10/14/2020 00:54) In ProgressCHEST PORTABLE 7 Clinical Report - Physicians/Mid Levels [facility] Emergency Department [address] [place] [address] Phone #: ext- [phone] 10/13/2020 23:01 Patient: [...] Oral. 8 Clinical Report - Physicians/Mid Levels [facility] Emergency Department [address] [place] [address] Phone #: ext- [phone] 10/13/2020 23:01 Patient: FABIANO RAMIREZ Sex: F [...] tablet. Refills: 0. Substitution permitted. Pharmacy - [facility] - [address] ; [place] [address]. . Follow-up: Follow up with your healthcare provider Friday if not better. Reason for referral: evaluation. Summary of care provided to patient via paper.(Electronically signed by Karen Saucedo 10/15/2020 07:57) Name Value Range Interpretation Code Description Data Melanie rce(s) Supporting Document(s) ID Date Data Source [id number] 10/14/2020 03:51:00 AM EDT [facility] [address] [place] [address] ---------NAME--------- NUMBER SEX AGE ADMIT DISC. XRAY# F/C TYPE CANDIDO MARIO [id number] F 65 10/13/20 [id number] E/R DATE OF : 1955 M/R# [id number] #: [id number] TR-04 LOCATION: TRANSCRIBED: 10/14/20 3:[address] CTA CHEST NON-CORONARY W [id number] COMPLETED:10/14/20 2:52 [facility] [place] [address] Reason(s): hemoptysis PHYSICIAN: VIJAYA R A D I O L O G Y R E P O R T PATIENT HISTORY:hemopstysis. isovue 370 75 ml [id number] exp 09/12. estimated dose 394.5. actualdose 395.6 mGy*cm.Time Out performed. Correct patient with 2 identifiers, type and amount ofcontrast used, correct body part and side all verified prior to examination. /COR SLAB MIP (DICOM Hx)EXAM: CTA Chest with Intravenous Contrast for PE evaluationCLINICAL HISTORY:hemopstysis. isovue 370 75 ml [id number] exp 09/12. estimated pwwj764.5. actual dose 395.6 mGy*cm. Time Out performed. [...] rce(s) Supporting Document(s) ID Date Data Source [id number] 10/21/2020 06:30:00 AM EDT [facility] Name Value Range Interpretation Code Description Data Melanie rce(s) Supporting Document(s) CULTURE BLOOD [facility] _CULTURE BLOOD_ [place] [address] CLIA# [id number] SEE SCANNED REPORT{ PRELIM ID Date Data Source [id number] 10/14/2020 12:35:00 AM EDT [facility] ([facility]) Name Value Range Interpretation Code Description Data Melanie rce(s) Supporting Document(s) Culture Blood Laboratory test result [facility] ([facility]) _CULTURE BLOOD_ [place] [address] CLIA# [id number] SEE SCANNED REPORT { PRELIM ID Date Data Source [id number] 10/19/2020 11:49:00 AM EDT [facility] [address] Name Value Range Interpretation Code Description Data Melanie rce(s) Supporting Document(s) Bacteria identified in Blood by Culture [facility] NO GROWTH AFTER 5 DAYS ID Date Data Source [id number] 10/21/2020 06:29:00 AM EDT [facility] Name Value Range Interpretation Code Description Data Melanie rce(s) Supporting Document(s) CULTURE BLOOD [facility] _CULTURE BLOOD_ TEST PERFORM ED AT [address] [address] CLIA# [id number] SEE SCANNED REPORT{ PRELIM ID Date Data Source [id number] 10/14/2020 12:04:00 AM EDT [facility] ([facility]) Name Value Range Interpretation Code Description Data Melanie rce(s) Supporting Document(s) Culture Blood Laboratory test result [facility] ([facility]) _CULTURE BLOOD_ TEST PERFORMED AT [facility] [address] [place] [address] CLIA# [id number] SEE SCANNED REPORT { PRELIM ID Date Data Source [id number] 10/14/2020 12:01:00 AM EDT [facility] ([facility]) Name Value Range Interpretation Code Description Data Melanie rce(s) Supporting Document(s) C reactive protein [Mass/volume] in Serum or Plasma by High sensitivity method 11.76 mg/L 1.00-3.00 [facility] ([facility] ) <content>CDC/S HS-CRP CUT-OFF: RELATIVE RISK:</content>
<content><1.0 mg/L Low</content>
<content>1.0 - 3.0 mg/L Average</laron nt>
<content>>3.0 mg/L High</content>
<content>Optimally, the average of HS-CRP results repeated</content>
<content>two weeks apart should be used for risk assessment.</content>
<content></content> Magnesium Serum 2.2 mg/dL 1.7-2.2 [facility] ([facility]) Natriuretic peptide.B prohormone N-Terminal [Mass/volu me] in Serum or Plasma 20 pg/mL 0-125 [facility] ([facility] ) Fibrin D-dimer [Presence] in Platelet poor plasma 0.32 ug/mL 0.27-0.5 0 [facility] ([facility]) ID Date Data Source [id number] 10/14/2020 12:01:00 AM EDT [facility] ([facility]) Name Value Range Interpretation Code Description Data Melanie rce(s) Supporting Document(s) Comprehensive Metabo Laboratory test result [facility] ([facility]) COMPREHENSIVE METABOLIC PANEL Sodium 140 meq/L 134-153 [facility] Potassium 3.9 meq/L 3.6-5.0 [facility]) Co2 31 meq/L 22-30 [facility] Chloride 102 meq/L 98-107 [facility]) BUN 12 mg/dL 7-21 [facility] Glucose 94 mg/dL 70-99 [facility] Creatinine 0.8 mg/dL 0.7-1.5 [facility] ([facility]) Total Protein 7.0 g/dL 6.3-8.2 [facility] ([facility]) BUN/Creat 15 8-27 [facility] Globulin 2.8 GM/DL 2.4-3.2 [facility] Albumin 4.2 g/dL 3.9-5.0 [facility]) A/G Ratio 1.5 0.8-2.0 [facility]) Calcium 10.1 mg/dL 8.4-10.2 [facility] ([facility]) Total Bili Laboratory test result 0.2-1.3 [facility] ([facility]) Alkaline Phos 62 U/L 38-126 [facility] ([facility]) Sgot/Ast 14 U/L 5-40 [facility] SGPT/Alt 13 U/L 7-56 [facility]) Anion Gap 7.0 mmol/L 8.0-16.0 [facility] ([facility]) Non-Aa GFR Laboratory test result [facility] ([facility]) Age 65 yrs [facility]) Afr Amer GFR Laboratory test result [facility] ([facility]) Male GFR Interprentation 20-49 yrs >60 [...] >32 mL/min Normal ID Date Data Source [id number] 10/14/2020 12:01:00 AM EDT [facility] ([facility]) Name Value Range Interpretation Code Description Data Melanie rce(s) Supporting Document(s) Troponin T.cardiac [Mass/volume] in Serum or Plasma Laborato ry test result 0.00-0.10 [facility] ([facility]) TROPONIN T 0.1 ng/ml Recommended as the clinical th reshold value for Troponin T. ID Date Data Source [id number] 10/14/2020 12:01:00 AM EDT [facility] ([facility]) Name Value Range Interpretation Code Description Data Melanie rce(s) Supporting Document(s) pCO2 V 56.1 mm/HG 38.0-51.0 [facility] pH V 7.37 7.32-7.43 [facility]) pO2 V 39.7 mm/HG 30.0-55.0 [facility] Hco3 V 31.5 meq/L 22.0-29.0 [facility] Tco2 V 33.2 meq/L 22.0-29.0 [facility] O2 Sat V 73.4 % 40.0-85.0 [facility] Base Excess 4.9 [facility] ([facility]) ID Date Data Source [id number] 10/14/2020 12:01:00 AM EDT [facility] ([facility]) Name Value Range Interpretation Code Description Data Melanie rce(s) Supporting Document(s) Protime 15.3 s 11.0-15.5 [facility] Inr 1.15 0.93-1.23 [facility]) \\BLDo\\INR INTERPRETATION\\BLDx\\ Therapeutic range for Coumadin and related oral a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. -International Normalized Ratio (INR): 2 .0 - 3.0 for Venous Thrombosis, Pulmonary Embolus, Tissue heart valves, Acute [place], Atrial Fibrillation, Valvular heart disease and recurrent Systemic Embolism. -International Normalized Ratio (INR): 2 .5 - 3.5 for Mechanical Prosthetic valve. ID Date Data Source [id number] 10/14/2020 12:01:00 AM EDT [facility] ([facility]) Name Value Range Interpretation Code Description Data Melanie rce(s) Supporting Document(s) Lactate [Mass/volume] in Serum or Plasma 1.4 mmol/L 0.2-2.2 [facility] ([facility]) ID Date Data Source [id number] 10/14/2020 12:01:00 AM EDT [facility] ([facility]) Name Value Range Interpretation Code Description Data Melanie rce(s) Supporting Document(s) CBC W/Automated Diff Laboratory test result [facility] COMPLETE BLOOD COUNT WBC 5.8 10^3/uL 4.2-11.0 [facility] ([facility]) RBC 3.92 10^6/uL 4.20-5.40 [facility] ([facility]) Hematocrit 36.6 % 37.0-47.0 [facility] ([facility]) Hemoglobin 11.9 g/dL 12.0-16.0 [facility] ([facility]) MCV 93.4 fL 81.0-101 [facility]) MCH 30.4 pg 27.0-34.0 [facility] RDW 15.5 % 11.5-14.5 [facility] MCHC 32.5 g/dL 31.0-36.0 [facility]) Platelets 204 10^3/uL 150-450 [facility] ([facility]) MPV 8.4 fL 7.4-10.4 [facility] Neut 43.7 % 37.0-80.0 [facility] Lymph 45.6 % 25.0-40.0 [facility] [place] 6.2 % 3.0-8.0 [facility]) Baso 0.3 % 0.0-2.5 [facility] Eos 4.0 % 0.0-7.0 [facility] %Ig 0.2 % 0.0-0.0 [facility] %NRBC 0.0 % 0.0-0.0 [facility] #Neut 2.54 10^3/uL 2.00-6.90 [facility] ([facility]) #Lymph 2.65 10^3/uL 0.60-3.40 [facility] ([facility]) #Sussex 0.36 10^3/uL 0.00-0.90 [facility] ([facility]) #Eos 0.23 10^3/uL 0.00-0.70 [facility] ([facility]) #Baso 0.02 10^3/uL 0.00-0.20 [facility] ([facility]) #Ig 0.01 10^3/uL 0.00-0.10 [facility] ([facility]) #NRBC 0.00 10^3/uL 0.00-0.00 [facility] ([facility]) Manual Diff Laboratory test result [facility] ([facility]) RBC Morph Laboratory test result [facility] ([facility]) ID Date Data Source [id number] 10/14/2020 02:08:00 AM EDT [facility] Value Range Interpretation Code Description Data Melanie rce(s) Supporting Document(s) BNP 20 PG/ML 0 - 125 [facility] ID Date Data Source [id number] 10/14/2020 12:40:00 AM EDT [facility] Value Range Interpretation Code Description Data Melanie rce(s) Supporting Document(s) Fibrin D-dimer FEU [Mass/volume] in Platelet poor plasma 0.32 ug /mL 0.27 - 0.50 [facility] ID Date Data Source [id number] 10/14/2020 12:39:00 AM EDT [facility] Name Value Range Interpretation Code Description Data Melanie rce(s) Supporting Document(s) Magnesium [Mass/volume] in Serum or Plasma 2.2 MG/DL 1.7 - 2.2 [facility] ID Date Data Source [id number] 10/14/2020 12:39:00 AM EDT [facility] Name Value Range Interpretation Code Description Data Melanie rce(s) Supporting Document(s) C reactive protein [Mass/volume] in Serum or Plasma by High sensitivity method 11.76 MG/L 1.00 - 3.00 [facility]/S HS-CRP CUT-OFF: RELATIVE RISK: <1.0 mg/L Low 1.0 - 3.0 mg/L Average >3.0 mg/L High Optimally, the average of HS-CRP results repeated two weeks apart should be used for risk assessment. ID Date Data Source [id number] 10/14/2020 12:39:00 AM EDT [facility] Name Value Range Interpretation Code Description [facility] Supporting Document(s) COMPREHENSIVE METABOLIC PANEL [facility] COMPREHENSIVE METABOLIC PANEL Sodium [Moles/volume] in Serum or Plasma 140 mEq/L 134 - 153 [facility] Potassium [Moles/volume] in Serum or Plasma 3.9 mEq/L 3.6 - 5.0 [facility] Chloride [Moles/volume] in Serum or Plasma 102 mEq/L 98 - 107 [facility] Carbon dioxide, total [Moles/volume] in Serum or Plasma 31 MEQ/L 22 - 30 H [facility] Glucose [Mass/volume] in Serum or Plasma 94 MG/DL 70 - 99 [facility] BUN 12 MG[facility]DL 7 - 21 [facility] Creatinine [Mass/volume] in Serum or Plasma 0.8 MG/DL 0.7 - 1.5 [facility] BUN/CREAT 15 8 - 27 [facility] al Protein [Mass/volume] in Serum or Plasma 7.0 G/DL 6.3 - 8.2 [facility] Albumin [Mass/volume] in Serum or Plasma 4.2 G/DL 3.9 - 5.0 [facility] Globulin [Mass/volume] in Serum by calculation 2.8 GM/DL 2.4 - 3.2 [facility] A/G RATIO 1.5 0.8 - 2.0 [facility] Calcium [Mass/volume] in Serum or Plasma 10.1 MG/DL 8.4 - 10.2 [facility] Bilirubin.total [Mass/volume] in Serum or Plasma <0.7 MG/DL 0.2 - 1.3 [facility] Alkaline phosphatase [Enzymatic activity/volume] in Serum or Plasma 62 U/L 38 - 126 [facility] Aspartate aminotransferase [Enzymatic activity/volume] in Serum or Plasma 14 U/L 5 - 40 [facility] Alanine aminotransferase [Enzymatic activity/volume] in Seru m or Plasma 13 U/L 7 - 56 [facility] Anion gap 3 in Serum or Plasma 7.0 mmol/L 8.0 - 16.0 L [facility] AGE 65 yrs [facility] al NON-AA GFR >60 mL/min [facility] AFR AMER GFR >60 [facility] Male GFR In terprentation [...] >32 mL/min Normal ID Date Data Source [id number] 10/14/2020 12:39:00 AM EDT [facility] Name Value Range Interpretation Code Description Data Melanie rce(s) Supporting Document(s) TROPONIN T <0.01 NG/ML 0.00 - 0.10 [facility] TROPONIN T0.1 ng/ml Recommended as the c linical threshold value forTroponin T. ID Date Data Source [id number] 10/14/2020 12:22:00 AM EDT [facility] Name Value Range Interpretation Code Description Data Melanie rce(s) Supporting Document(s) Prothrombin time (PT) 15.3 SECONDS 11.0 - 15.5 [facility] INR in Platelet poor plasma by Coagulation assay 1.15 0.93 - 1. 23 [facility] \\BLDo\\INR INTERPRETATION\\BLDx\\ Therapeutic range for Coumadin and related oral a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. - International Normalized Ratio (INR): 2.0 - 3.0 for Venous Thrombosis, Pulmonary Embolus, Tissue heart valves, Acute [place], Atrial Fibrillation, Valvular heart disease and recurrent Systemic Embolism. -International Normalized Ratio (INR): 2.5 - 3.5 for Mechanical Prosthetic valve. ID Date Data Source [id number] 10/14/2020 12:22:00 AM EDT [facility] Name Value Range Interpretation Code Description Data Melanie rce(s) Supporting Document(s) Lactate [Moles/volume] in Serum or Plasma 1.4 MMOL/L 0.2 - 2.2 [facility] ID Date Data Source [id number] 10/14/2020 12:22:00 AM EDT [facility] Name Value Range Interpretation Code Description Data Melanie rce(s) Supporting Document(s) pH of Serum or Plasma 7.37 7.32 - 7.43 [facility] pCO2 V 56.1 mm/HG 38.0 - 51.0 H [facility] pO2 V 39.7 mm/HG 30.0 - 55.0 [facility] pital Bicarbonate [Moles/volume] in Venous blood 31.5 meq/L 22.0 - 29.0 H [facility] TCO2 V 33.2 meq/L 22.0 - 29.0 H [facility] Base excess in Blood by calculation 4.9 -2.0 - 2.0 H [facility] O2 SAT V 73.4 % 40.0 - 85.0 [facility] ID Date Data Source [id number] 10/14/2020 12:10:00 AM EDT [facility] Name Value Range Interpretation Code Description Data Melanie rce(s) Supporting Document(s) CBC W/AUTOMATED DIFF [facility] COMPLETE BLOOD COUNT Leukocytes [#/volume] in Blood by Automated count 5.8 10^3/uL 4.2 - 1 1.0 [facility] Erythrocytes [#/volume] in Blood by Automated count 3.92 10^6/uL 4. 20 - 5.40 L [facility] Hemoglobin [Mass/volume] in Blood 11.9 g/dL 12.0 - 16.0 L [facility] Hematocrit [Volume Fraction] of Blood by Automated count 36.6 % 3 7.0 - 47.0 L [facility] Erythrocyte mean corpuscular volume [Entitic volume] by Auto mated count 93.4 fL 81.0 - 101 [facility] Erythrocyte mean corpuscular hemoglobin [Entitic mass] by Automated count 30.4 pg 27.0 - 34.0 [facility] Erythrocyte mean corpuscular hemoglobin concentration [Mass/volume] by Automated count 32.5 g/dL 31.0 - 36.0 [facility] Erythrocyte distribution width [Ratio] by Automated count 15.5 % 11.5 - 14.5 H [facility] Platelets [#/volume] in Blood by Automated count 204 10^3/uL 150 - 45 0 [facility] Platelet mean volume [Entitic volume] in Blood by Automated count 8.4 fL 7.4 - 10.4 [facility] Neutrophils/100 leukocytes in Blood by Automated count 43.7 % 37. 0 - 80.0 [facility] Lymphocytes/100 leukocytes in Blood by Manual count 45.6 % 25.0 - 40.0 H [facility] Monocytes/100 leukocytes in Blood by Automated count 6.2 % 3.0 - 8.0 [facility] Eosinophils/100 leukocytes in Blood by Automated count 4.0 % 0.0 - 7.0 [facility] Basophils/100 leukocytes in Blood by Automated count 0.3 % 0.0 - 2.5 [facility] %IG 0.2 % 0.0 - 0.0 [facility] %NRBC 0.0 % 0.0 - 0.0 [facility] al Neutrophils [#/volume] in Blood by Automated count 2.54 10^3/uL 2.00 - 6.90 [facility] Lymphocytes [#/volume] in Blood by Automated count 2.65 10^3/uL 0.60 - 3.40 [facility] Monocytes [#/volume] in Blood by Automated count 0.36 10^3/uL 0.00 - 0.90 [facility] Eosinophils [#/volume] in Blood by Automated count 0.23 10^3/uL 0.00 - 0.70 [facility] Basophils [#/volume] in Blood by Automated count 0.02 10^3/uL 0.00 - 0.20 [facility] #IG 0.01 10^3/uL 0.00 - 0.10 [facility] #NRBC 0.00 10^3/uL 0.00 - 0.00 [facility] MANUAL DIFF NOT INDICATED [facility] RBC MORPH NOT INDICATED [facility] ID Date Data Source [id number] 10/18/2020 02:37:00 PM EDT [facility] Name Value Range Interpretation Code Description Data Melanie rce(s) Supporting Document(s) CULTURE URINE [facility] _CULTURE URINE_$$[id number]$$[id number]$$[id number]$$221617$$[id number]$$565388$$278505$$340418$$788111$$ 267696$$623027$$463198$$031461$$242226$$828882$$164590$$334813$$863335$$892852$$ 876503$$693725$$057279$$234397$$178105$$519083$$985601$$[id number] -- Continued on next page --Patient: LETTIERE FABIANO Order: Page 2Culture: CULTURE URINE Status: Final ==== -- Continued on next page --Patient: LETTIERE FABINAO Order: [id number] Page 2Culture: CULTURE URINE Status: Prelim ===== -- Continued on next page --Patient: CANDIDO MARIO Order: [id number] Page 2Culture: CULTURE URINE Status: Prelim =====$$[id number]$$[id number] DATE/TIME: 10/18/2020 12:06Culture: CULTURE URINE Status: FinalIsolate 1 Enterococcus faecalis Flag: A . . . . . . .7Greater than 100,000 colony forming units per mL Previous result entered on 10/17/2020 14:24 ET Enterococcus faecalisSusceptibility results being verified. Final report to follow. Previous result entered on 10/17/2020 05:41 ET Microbiological testing to rule out the presence of possible pathogensis in progress.Urine Culture,Comprehensive: T7Haunwvfloydh faecalis Flag: APatient: CANDIDO MARIO Order: [id number] Page 3Culture: CULTURE URINE Status: Final ISOLATE 1 Enterococcus faecalis Isolate 1Antibiotic YONG IntUnits ug/mL ----Ciprofloxacin R R . . . . . .185-9Levofloxacin R R . . . . . .22088-2Weomqxlwwthoev S S . . . . . .363-2Penicillin S S . . . . . .6932-8Tetracycline R R . . . . . .496- 0Vancomycin S S . . . . . .524-9P1 Test performed by: [facility] #: [id number] [address] [place] [address] [id number] [facility] [id number] Director : Ross Jeffers MD NPI #:Manager Logistic : 10/17/20.0658.XMT.SENT REF 10/18/20.0700.XMT.SENT REF 10/18/20.1437.XMT.SENT REF ID Date Data Source [id number] 10/13/2020 11:45:00 PM EDT [facility] Name Value Range Interpretation Code Description Data Melanie rce(s) Supporting Document(s) Urinalysis Laboratory test result [facility] SOURCE: Clean Catch Source Laboratory test result [facility] SOURCE: Clean Catch Clarity Laboratory test result [facility] SOURCE: Clean Catch Color Laboratory test result [facility] SOURCE: Clean Catch Spec Cornish 1.010 1.001-1.030 [facility] SOURCE: Clean Catch Glucose Laboratory test result [facility] SOURCE: Clean Catch pH 7 5-9 [facility]) SOURCE: Clean Catch Bilirubin Laboratory test result [facility] ([facility]) SOURCE: Clean Catch Ketone Laboratory test result [facility] SOURCE: Clean Catch Protein Laboratory test result [facility] SOURCE: Clean Catch Blood 25 Abnormal (applies to non-numeric res ults) [facility] SOURCE: Clean Catch Nitrite Laboratory test result [facility] SOURCE: Clean Catch Leuk Est 500 Abnormal (applies to non-numeric res ults) [facility] ([facility]) SOURCE: Clean Catch Urobilinogen Laboratory test result [facility] ([facility]) SOURCE: Clean Catch Microscopic Laboratory test result [facility] ([facility]) SOURCE: Clean Catch WBC Laboratory test result Abnormal (applies to non -numeric results) [facility] SOURCE: Clean Catch RBC Laboratory test result [facility] ([facility]) SOURCE: Clean Catch Epithelial Laboratory test result Abnormal (applies to non -numeric results) [facility] ([facility]) SOURCE: Clean Catch Bacteria Laboratory test result Abnormal (applies to non -numeric results) [facility] SOURCE: Clean Catch ID Date Data Source [id number] 10/13/2020 11:45:00 PM EDT [facility] Name Value Range Interpretation Code Description Data Melanie rce(s) Supporting Document(s) Culture Urine Laboratory test result [facility] SOURCE: Clean Catch ID Date Data Source [id number] 10/14/2020 12:22:00 AM EDT [facility] Name Value Range Interpretation Code Description Data Melanie rce(s) Supporting Document(s) URINALYSIS [facility] URINALYSIS SOURCE R [facility] COLOR yellow NORMAL: Yellow [facility] CLARITY hazy NORMAL: Clear [facility] Specific gravity of Urine by Test strip 1.010 1.001 - 1.030 [facility] 7 5 - [facility] Gl[facility] [Mass/volume] in Urine by Test strip NORM NORMAL: Negat [facility] Bilirubin.total [Presence] in Urine by Test strip NEG NORMAL: Negative [facility] Ketones [Presence] in Urine by Test strip NEG NORMAL: Negative [facility] Protein [Mass/volume] in Urine by Test strip NEG NORMAL: Negat [facility] Nitrite [Presence] in Urine by Test strip NEG NORMAL: Negative [facility] BLOOD 25 NORMAL: Negative [facility] Leukocyte esterase [Presence] in Urine by Test strip 500 KANE L: Negative [facility] Urobilinogen [Mass/volume] in Urine by Test strip NOR less deanna n 1.0 mg/dL [facility] MICROSCOPIC See Below [facility] WBC 7 - 10 NORMAL: NONE SEEN [facility] Erythrocytes [#/volume] in Urine by Test strip 1 - 3 NORMAL: NON E SEEN [facility] EPITHELIAL MODERATE NORMAL: NONE SEEN A [facility] Bacteria [Presence] in Urine sediment by Light microscopy 2+ MOD NORMAL: NONE SEEN A [facility] ID Date Data Source [id number] 09/16/2020 05:22:00 AM EST [facility] ([facility]) Name Value Range Interpretation Code Description Data Melanie rce(s) Supporting Document(s) Bedside Glucose 82 mg/dL 80-115 [facility] ([facility]) ID Date Data Source [id number] 09/16/2020 04:34:00 AM EST [facility] ([facility]) Name Value Range Interpretation Code Description Data Melanie rce(s) Supporting Document(s) Urine Culture Laboratory test result [facility] ([facility]) <content>FULL REPORT IN LAB NOTES (eCW [...] FOR ESBL</content>
<content></content> ID Date Data Source [id number] 09/09/2020 12:43:00 AM EST [facility] ([facility]) Name Value Range Interpretation Code Description Data Melanie rce(s) Supporting Document(s) Laboratory test finding (navigational concept) 39.0 % 38.0-51.0 [facility] ([facility]) Laboratory test finding (navigational concept) 85 mg/dL 70-105 [facility] ([facility]) Laboratory test finding (navigational concept) 4.1 meq/L 3.5-5.1 [facility] ([facility]) Laboratory test finding (navigational concept) 142 meq/L 136-145 [facility] ([facility]) Laboratory test finding (navigational concept) 5.1 mg/dL 4.5-5.3 [facility] ([facility]) Laboratory test finding (navigational concept) 106 meq/L 98-109 [facility] ([facility]) Laboratory test finding (navigational concept) 18 mg/dL 8-26 [facility] ([facility]) Laboratory test finding (navigational concept) 29.0 MM/L 23.0-27.0 [facility] Laboratory test finding (navigational concept) 0.9 mg/dL 0.6-1.3 [facility] ([facility]) ID Date Data Source [id number] 09/09/2020 12:37:00 AM EST [facility] ([facility]) Name Value Range Interpretation Code Description Data Melanie rce(s) Supporting Document(s) Lipoprotein lipase [Enzymatic activity/volume] in Serum or P lasma 141 U/L 73-393 [facility] ([facility]) ID Date Data Source [id number] 09/09/2020 12:37:00 AM EST [facility] ([facility]) Name Value Range Interpretation Code Description Data Melanie rce(s) Supporting Document(s) Ast/Sgot 10 U/L 7-37 [facility]) Alt/SGPT 16 U/L 12-78 [facility]) Alkaline Phosphatase 60 U/L 45-117 [facility] ([facility]) Bilirubin,Total 0.2 mg/dL 0.2-1.0 [facility] ([facility]) Bilirubin,Direct Laboratory test result 0.0-0.2 [facility] ([facility]) Total Protein 7.2 GM/DL 6.4-8.2 [facility] ([facility]) Albumin 3.2 GM/DL 3.2-5.2 [facility] Albumin/Globulin Ratio 0.8 1.2-2.2 [facility] ([facility]) ID Date Data Source [id number] 09/09/2020 12:37:00 AM EST [facility] ([facility]) Name Value Range Interpretation Code Description Data Melanie rce(s) Supporting Document(s) White Blood Count 5.2 10 4.0-10.0 [facility] ([facility]) Hemoglobin 11.7 g/dL 12.0-15.5 [facility] Red Blood Count 4.06 10 4.00-5.40 [facility] ([facility]) Hematocrit 38.6 % 36.0-47.0 [facility] Mean Corpuscular Volume 95.1 fl 80.0-96.0 [facility] ([facility]) Mean Corpuscular Hemoglobin 28.8 pg 27.0-33.0 [facility] ([facility]) Mean Corpuscular HGB Conc 30.3 g/dL 32.0-36.5 [facility] ([facility]) Platelet Count, Automated 180 10 150-450 [facility] ([facility]) Red Cell Distribution Width 14.7 % 11.5-14.5 [facility] ([facility]) Neutrophils % 50.9 % 36.0-66.0 [facility] ([facility]) Lymph % 37.5 % 24.0-44.0 [facility]) [place] % 7.9 % 2.0-8.0 [facility]) Eos % 3.3 % 0.0-3.0 [facility]) Baso % 0.2 % 0.0-1.0 [facility]) Immature Granulocyte % 0.2 % 0-3.0 [facility] ([facility]) Nucleated Red Blood Cell % 0.0 % 0-0 [facility] ([facility]) Neutrophils # 2.6 10 1.5-8.5 [facility] ([facility]) Lymph # 1.9 10 1.5-5.0 [facility] [place] # 0.4 10 0.0-0.8 [facility]) Eos # 0.2 10 0.0-0.5 [facility] Baso # 0.0 10 0.0-0.2 [facility] ID Date Data Source [id number] 08/12/2020 08:01:00 AM EST [facility] ([facility]) Name Value Range Interpretation Code Description Data Melanie rce(s) Supporting Document(s) Reflex Urine Culture Laboratory test result [facility] ([facility]) <content>FULL REPORT IN LAB NOTES (eCW [...] FOR ESBL</content>
<content></content> ID Date Data Source [id number] 08/12/2020 08:01:00 AM EST [facility] ([facility]) Name Value Range Interpretation Code Description Data Melanie rce(s) Supporting Document(s) Color, Urine RFX Laboratory test result [facility] ([facility]) Appearance, Urine RFX Laboratory test result [facility] ([facility]) PH,Urine RFX 7.0 units 5.0-9.0 [facility] ([facility]) Specific Cornish Ur Auto RFX 1.008 1.002-1.035 [facility] Protein, Urine Auto RFX Laboratory test result [facility] ([facility]) Ketone, Urine Auto RFX Laboratory test result [facility] ([facility]) Glucose, Urine (Ua) Auto RFX Laboratory test result [facility] ([facility]) Bilirubin, Urine Auto RFX Laboratory test result [facility] ([facility]) Urobilinogen, Urine Auto RFX 0.2 mg/dL 0.0-2.0 [facility] ([facility]) Nitrite, Urine Auto RFX Laboratory test result [facility] ([facility]) Blood, Urine Blood RFX Laboratory test result [facility] ([facility]) Leukocyte Esterase Ur Auto RFX Laboratory test result [facility] ([facility]) WBC, Urine Auto RFX 9 /HPF 0-3 [facility] ([facility]) Bacteria, Urine Auto RFX Laboratory test result [facility] ([facility]) RBC, Urine Auto RFX 9 /HPF 0-3 [facility] ([facility]) Squam Epithelial Cell Ur Aurfx 5 /HPF 0-6 [facility] ([facility]) Hyaline Cast, Urine Auto RFX 0 /LPF 0-1 M [facility] ([facility]) Mucus, Urine RFX Laboratory test result [facility] ([facility]) Amorphous Sediment RFX Laboratory test result [facility] ([facility]) ID Date Data Source [id number] 08/12/2020 07:52:00 AM EST [facility] Name Value Range Interpretation Code Description Data Melanie rce(s) Supporting Document(s) Gats Culture (Neg Strep SCR) Laboratory test result [facility] ([facility]) FULL REPORT IN LAB NOTES (eCW and [facility] ). NEGATIVE FOR STREP PYOGENES (GROUP A) ID Date Data Source [id number] 08/12/2020 06:51:00 AM EST [facility]) Name Value Range Interpretation Code Description Data Melanie rce(s) Supporting Document(s) Influenza A Amplification Laboratory test result [facility] ([facility]) Negative results do not preclude influen za or RSV virus infection and should not be used as the sole basis for treatment or other patient management decisions. RSV Amplification Laboratory test result [facility] ([facility]) Negative results do not preclude influen za or RSV virus infection and should not be used as the sole basis for treatment or other patient management decisions. Influenza B Amplification Laboratory test result [facility] ([facility]) Negative results do not preclude influen za or RSV virus infection and should not be used as the sole basis for treatment or other patient management decisions. Laboratory test finding (navigational concept) Laboratory test result [facility] ([facility]) A false negative result may occur [...] pathogens. DISCLAIMER: Testing was performed using the [employer] SARS-CoV-2 test. This test was developed and its performance characteristics determined by [employer]. This test has not been FDA cleared [...] or revoked sooner. ID Date Data Source [id number] 08/12/2020 06:51:00 AM EST [facility] Name Value Range Interpretation Code Description Data Melanie rce(s) Supporting Document(s) SARS coronavirus 2 RNA [Presence] in Res piratory specimen by MILAGROS with probe detection NEGATIVE [facility] This lab was ordered by [facility] a nd reported by [facility]. ID Date Data Source [id number] 07/22/2020 04:54:00 AM EST [facility] ([facility]) Name Value Range Interpretation Code Description Data Melanie rce(s) Supporting Document(s) Reflex Urine Culture Laboratory test result [facility] ([facility]) <content>FULL REPORT IN LAB NOTES (eCW [...] 1 S</content>
<content></content> ID Date Data Source [id number] 07/22/2020 04:54:00 AM EST [facility] Name Value Range Interpretation Code Description Data Melanie rce(s) Supporting Document(s) Color, Urine RFX Laboratory test result [facility]) Appearance, Urine RFX Laboratory test result [facility] PH,Urine RFX 7.0 units 5.0-9.0 [facility] ([facility]) Specific Cornish Ur Auto RFX 1.005 1.002-1.035 [facility] Protein, Urine Auto RFX Laboratory test result [facility]) Glucose, Urine (Ua) Auto RFX Laboratory test result [facility] Urobilinogen, Urine Auto RFX 0.2 mg/dL 0.0-2.0 [facility] Ketone, Urine Auto RFX Laboratory test result [facility] Nitrite, Urine Auto RFX Laboratory test result [facility] Bilirubin, Urine Auto RFX Laboratory test result [facility] ([facility]) Leukocyte Esterase Ur Auto RFX Laboratory test result [facility] ([facility]) Blood, Urine Blood RFX Laboratory test result [facility] ([facility]) WBC, Urine Auto RFX 11 /HPF 0-3 [facility] ([facility]) RBC, Urine Auto RFX 1 /HPF 0-3 [facility] ([facility]) Squam Epithelial Cell Ur Aurfx 0 /HPF 0-6 [facility] ([facility]) Bacteria, Urine Auto RFX Laboratory test result [facility] ([facility]) Hyaline Cast, Urine Auto RFX 0 /LPF 0-1 [facility] ([facility]) Mucus, Urine RFX Laboratory test result [facility] ([facility]) ID Date Data Source [id number] 07/01/2020 06:35:00 AM EST [facility] 1 OrderSheet [facility] Emergency Department [address] [place] [address] Phone #: ext- [phone] 07/01/2020 06:35 Patient: [...] rce(s) Supporting Document(s) ID Date Data Source [id number] 07/01/2020 06:35:00 AM EST [facility] 1 Medication Reconciliation Report [facility] Emergency Department [address] [place] [address] Phone #: ext- [phone] 07/01/2020 06:35 Patient: [...] the Emergency Department: 2 Medication Reconciliation Report [facility] Emergency Department [address] [place] [address] Phone #: ext- [phone] 07/01/2020 06:35 Patient: FABIANO RAMIREZ Sex: F : 1955 Age: 64yNone.The following Medications were prescribed to the patient:ciprofloxacin 250 mg tablet Take 1 tablet twice a day for 7 days -- Dispense 14 tablet. Refills: 0.Substitution permitted.Pharmacy - [facility] - [address] ; [place] [address]. . -- Xavier Robertson Physician Name Value Range Interpretation Code Description Data [facility](s) Supporting Document(s) ID Date Data Source [id number] 07/01/2020 06:35:00 AM EST [place] [address] Medication Administration Record [facility] Emergency Department [address] [place] [address] Phone #: ext- [phone] 07/01/2020 06:35 Patient: FABIANO RAMIREZ Sex: F : 1955 Age: 64yWeight: 76.2 kgHeight/Length: 59 inBMI: 34ALLERGIES: Darvacet, Demerol, MicrodentinDate/Time Medication Administered Medication Ordered Name Value Range Interpretation Code Description Data Melanie rce(s) Supporting Document(s) ID Date Data Source [id number] 07/01/2020 06:35:00 AM [facility] 1 General Instructions [facility] Emergency Department [address] [place] [address] Phone #: ext- [phone] 07/01/2020 06:35 Patient: [...] Dispense 14 tablet. Refills: 0.Substitution permitted.Pharmacy - [facility] - [address] ; [place] [address]. .Follow-up:Follow up with your healthcare provider in four days. Call for an appointment.Understanding of the discharge instructions v erbalized by patient. ADDITIONAL INFORMATION 2 General Instructions [facility] Emergency Department [address] [place] [address] Phone #: ext- [phone] 07/01/2020 06:35 Patient: [...] or burning when urinating 3 General Instructions [facility] Emergency Department [address] [place] [address] Phone #: ext- [phone] 07/01/2020 06:35 Patient: [...] Fluid loss (dehydration) Constipation Having sex 4 [facility] Emergency Department [address] [place] [address] Phone #: ext- [phone] 07/01/2020 06:35 Patient: [...] flush out your bladder. 5 General Instructions [facility] Emergency Department [address] [place] [address] Phone #: ccm- [phone] 07/01/2020 06:35 Patient: FABIANO RAMIREZ Sex: F [...] if the results will affect your treatment.Call [phone] if any of the following occur: Trouble [...] in the outer vaginal area (labia) [employer]. [address] [place] [address]. All rights reserved. This information is not intended as asubstitute for professional medical care. Always follow your healthcare professional's instructions. You have been given the following additional information: Bladder Infection, Female (Adult) 6 General Instructions [facility] Emergency Department [address] [place] [address] Phone #: ext- [phone] 07/01/2020 06:35 Patient: FABIANO RAMIREZ Sex: F : 1955 Age: 64y(Electronically signed by Xavier Robertson, Physician 07/01/2020 08:41) Name Value Range Interpretation Code Description Data Melanie rce(s) Supporting Document(s) ID Date Data Source [id number] 07/01/2020 06:35:00 AM [facility] 1 Clinical Report - Nurses [facility] Emergency Department [address] [place] [address] Phone #: ext- [phone] 07/01/2020 06:35 Patient: FABIANO RAMIREZ Sex: F : 1955 Age: 64yTRIAGEArrived by EMS. Historian: patient.Triage time: 06:35 07/01/2020. Acuity: LEVEL 4.Chief Complaint: PAINFUL URINATION.Onset. (2 days). 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 No [...] --06:48 07/01/20 Tamia Clements R.N.AllergiesDarvacet. --06:48 07/01/20 Tamai Clements R.N.Demerol.Microdentin. --06:48 07/01/20 Tamia Clements R.N.PROBLEMS: 2 Clinical Report - Nurses [facility] Emergency Department [address] [place] [address] Phone #: ext- [phone] 07/01/2020 06:35 Patient: [...] 07/01/20 Xavier Robertson, Physician.PHYSICAL ASSESSMENTTo [facility] .GENERAL / NEURO / PSYCH: Alert. Oriented X 4. Appears anxious.HEENT: Mucous membranes are pink.RESPIRATORY: Respirations not labored.CVS: Capillary refill less than 2 seconds.GI / : No emesis noted. Pain with urination. She has had frequency of urination. Urgency ofurination. Patient is incontinent of urine. 3 Clinical Report - Nurses [facility] Emergency Department [address] [place] [address] Phone #: ext- [phone] 07/01/2020 06:35 Patient: FABIANO RAMIREZ Sex: F [...] rce(s) Supporting Document(s) ID Date Data Source [id number] 07/01/2020 06:35:00 AM [facility] 1 Clinical Report - Physicians/Mid Levels [facility] Emergency Department [address] [place] [address] Phone #: ext- [phone] 07/01/2020 06:35 Patient: [...] Appendectomy. 2 Clinical Report - Physicians/Mid Levels [facility] Emergency Department [address] [place] [address] Phone #: ext- [phone] 07/01/2020 06:35 Patient: FABIANO RAMIREZ [facility]#: [id number] Sex: F : 1955 Age: 64y Hernia [...] Normal skin turgor. 3 Clinical Report - Physicians/[facility] Emergency Department [address] [place] [address] Phone #: ext- [phone] 07/01/2020 06:35 Patient: FABIANO RAMIREZ Sex: F [...] pain.INSTRUCTIONS 4 Clinical Report - Physicians/Mid Levels [facility] Emergency Department [address] [place] [address] Phone #: ext- [phone] 07/01/2020 06:35 Patient: [...] tablet. Refills: 0. Substitution permitted. Pharmacy - [facility] - [address] ; [place] [address]. . Follow-up: Follow up with your healthcare provider in four days. Call for an appointment. Understanding of the discharge instructions verbalized by patient.(Electronically signed by Xavier Robertson Physician 07/01/2020 08:41) Name Value Range Interpretation Code Description Data Melanie rce(s) Supporting Document(s) ID Date Data Source [id number] 07/01/2020 06:50:00 AM EST [facility] ([facility]) Name Value Range Interpretation Code Description Data Melanie rce(s) Supporting Document(s) Culture Urine Laboratory test result [facility] ([facility]) <content>_CULTURE URINE_</content>
<content>^$180732</content>
<content>^^653170</content>
<content>$$082760</content>
<content>^^335709</content>
<content>$$ 723380</content>
<content>$$280936</content>
<content>$$197333</content>
<content>$$ 985135</content>
<content>$$758810</content>
<content>$$408411</content>
<content> $$280854</content>
<content>$$793002</content>
<content>$$611805</conten t>
<content>$$568123</content>
<content>$$169350</content>
<content> $$856362</content>
<content>$$174775</content>
<content>$$339384</content>
<content>$$50231 0</content>
<content>$$791024</content>
<content>$$474240</content>
<content>$$512503</content>
<content>$$039303</content>
<content>$$810594</content>
<content>$$ 664640</content>
<content>$$397346</content>
<content>$$114542</content>
<content> ^^195992</content>
<content>$$772580</content>
<content>$$107907</conten t>
<content>$$883894</content>
<content></content>
<content>-- Continued on next page --</content>
<content>Patient: CANDIDO MARIO Order: [id number] Page 2</content>
<content>Culture: CULTURE URINE Status: Final</laron nt>
<content> < /content>
<content></content>
<content></content>
<content>-- Continued on next page --</content>
<content>Patient: CANDIDO MARIO Order: [id number] Page 2</content>
<content>Culture: CULTURE URINE Status: Prelim</content>
<content> < /content>
<content></content>
<content></content>
<content>-- Continued on next page --</content>
<content>Patient: CANDIDO MARIO Order: [id number] Page 2</content>
<content>Culture: CULTURE URINE Status: Prelim</content>
<content> < /content>
<content></content>
<content>$$307671</content>
<content>$ $498235</content>
<content></content>
<content>REPORTED DATE/TIME: 07/05/2020 11:06</content>
<content>Culture: CULTURE [...]
<content></content>
<content></content>
<content> Patient: CANDIDO MARIO Order: [id number] Page 3</content>
<content>Culture: CULTURE URINE Status: Final</content>
[...] S S . . . . . .24280-1</content>
<content>Gentamicin S S . . . . . .267-5</content>
<content>Imipenem S S . . . . . .279-0</content>
<content>Levofloxacin S S . . . . . .52564-4</content>
<content>Meropenem S S . . . . . .6652-2</content>
<content>Nitrofurantoin S S . . . . . .363-2</content>
<content>Piperacillin/Tazobactam S S . . . . . .412-7</content>
<content>Tetracycline S S . . . . . .496-0</content>
<content>Tobramycin S S . . . . . .508-2</content>
<content>Trimethoprim/Sulfa S S . . . . . .516-5</content>
<content></content>
<content>P1 Test performed by: Rose HURTADO #: [id number]</content>
<content>[address]</content>
<content>[id number]</content>
<content>[place] [id number]</content>
<content>Lawn Service Manager : Ross Jeffers MD NPI #:</content>
<content>Manager Logistic :</content>
<content>07/03/20.1551.XMT.SENT REF</content>
<content>07/04/20.1209.XMT.SENT REF</content>
<content>07/05/20.1201.XMT.SENT REF</content>
<content></content>
<content></content> ID Date Data Source [id number] 07/01/2020 06:50:00 AM EST [facility] ([facility]) Name Value Range Interpretation Code Description Data Melanie rce(s) Supporting Document(s) Urinalysis Laboratory test result [facility] ([facility]) URINALYSIS Source [facility] SOURCE: Clean Catch Color Laboratory test result [facility] ([facility]) SOURCE: Clean Catch Clarity Laboratory test result [facility] ([facility]) SOURCE: Clean Catch Spec Cornish 1.010 1.001-1.030 [facility] SOURCE: Clean Catch pH 7 5-9 [facility] SOURCE: Clean Catch Glucose Laboratory test result [facility] ([facility]) SOURCE: Clean Catch Bilirubin Laboratory test result [facility] ([facility]) SOURCE: Clean Catch Ketone Laboratory test result [facility] ([facility]) SOURCE: Clean Catch Protein Laboratory test result [facility] ([facility]) SOURCE: Clean Catch Nitrite Laboratory test result [facility] ([facility]) SOURCE: Clean Catch Blood 150 Abnormal (applies to non-numeric res ults) [facility] ([facility]) SOURCE: Clean Catch Leuk Est 500 Abnormal (applies to non-numeric res ults) [facility] ([facility]) SOURCE: Clean Catch Urobilinogen Laboratory test result [facility] ([facility]) SOURCE: Clean Catch Microscopic Laboratory test result [facility] ([facility]) SOURCE: Clean Catch WBC Laboratory test result Abnormal (applies to non -numeric results) [facility] ([facility]) SOURCE: Clean Catch RBC Laboratory test result Abnormal (applies to non -numeric results) [facility] ([facility]) SOURCE: Clean Catch Epithelial Laboratory test result Abnormal (applies to non -numeric results) [facility] ([facility]) SOURCE: Clean Catch Bacteria Laboratory test result Abnormal (applies to non -numeric results) [facility] SOURCE: Clean Catch ID Date Data Source [id number] 07/05/2020 12:01:00 PM EST [facility] Name Value Range Interpretation Code Description Data Melanie rce(s) Supporting Document(s) CULTURE URINE [facility] _CULTURE URINE_$$[id number]$$[id number]$$348093$$246968$$238019$$075169$$253902$$499092$$578676$$ 485305$$376087$$637415$$098417$$137833$$429541$$021586$$873397$$904860$$652310$$ 978177$$530263$$039000$$242470$$925021$$236499$$425197$$[id number] -- Continued on next page --Patient: LETTIERE FABIANO Order: [id number] Page 2Culture: CULTURE URINE Status: Final ==== -- Continued on next page --Patient: LETTIERE FABIANO Order: [id number] Page 2Culture: CULTURE URINE Status: Prelim ===== -- Continued on next page --Patient: LETTIERE FABIANO Order: [id number] Page 2Culture: CULTURE URINE Status: Prelim =====$$[id number]$$[id number] DATE/TIME: 07/05/2020 11:06Culture: CULTURE URINE Status: FinalIsolate [...] presence of possible pathogensis in progress.Urine Culture,Comprehensive: [id number] coli Flag: APatient: CANDIDO MARIO Order: [id number] Page 3Culture: CULTURE URINE Status: Final ====ISOLATE [...] S S . . . . . .68026-2Lphdczacnf S S . . . . . .267-5Imipenem S S . . . . . .279- 0Levofloxacin S S . . . . . .19130-7Sblqsymod S S . . . . . .6652-2Nitrofurantoin S S . . . . . .363-2Piperacillin/Tazobactam S S . . . . . .412-7Tetracycline S S . . . . . .496-0Tobramycin S S . . . . . .508-2Trimethoprim/Sulfa S S . . . . . .516-5P1 Test performed by: [employer] #: [id number] [address] [id number] [facility] [id number] Director : Ross Jeffers MD NPI #:Manager Logistic : 07/03/20.1551.XMT.SENT REF 07/04/20.1209.XMT.SENT REF 07/05/20.1201.XMT.SENT REF ID Date Data Source [id number] 07/01/2020 07:08:00 AM EST [facility] Name Value Range Interpretation Code Description Data Melanie rce(s) Supporting Document(s) URINALYSIS [facility] NORMAL: Yellow [facility] CLARITY clear NORMAL: Clear [facility] Specific gravity of Urine by Test strip 1.010 1.001 - 1.030 [facility] pH 7 5 - 9 [facility] Glucose [Mass/volume] in Urine by Test strip NORM NORMAL: Negat [facility] Bilirubin.total [Presence] in Urine by Test strip NEG NORMAL: Negative [facility] Ketones [Presence] in Urine by Test strip NEG NORMAL: Negative [facility] Protein [Mass/volume] in Urine by Test strip NEG NORMAL: Negat [facility] Nitrite [Presence] in Urine by Test strip POS NORMAL: Negative [facility] BLOOD 150 NORMAL: Negative [facility] Leukocyte esterase [Presence] in Urine by Test strip 500 KANE L: Negative [facility] Urobilinogen [Mass/volume] in Urine by Test strip NOR less deanna n 1.0 mg/dL [facility] MICROSCOPIC See Below [facility] WBC 5 - 7 NORMAL: NONE [facility] Erythrocytes [#/volume] in Urine by Test strip 7 - 10 NORMAL: NON E SEEN A [facility] EPITHELIAL MODERATE NORMAL: NONE SEEN A [facility] Bacteria [Presence] in Urine sediment by Light microscopy 3+ LARGE NORMAL: NONE SEEN A [facility] ID Date Data Source [id number] 06/08/2020 02:10:00 PM EST [facility] ([facility]) Name Value Range Interpretation Code Description Data Melanie rce(s) Supporting Document(s) Erythrocytes [#/volume] in Blood by Automated count 4.16 x10*6/UL 4.2 0-6.30 [facility] ([facility]) Leukocytes [#/volume] in Blood by Automated count 5.4 x10*3/UL 4.1-10 .9 [facility] ([facility]) Hemoglobin [Mass/volume] in Blood 12.5 g/dL 12.0-18.0 [facility] ([facility]) Hematocrit [Volume Fraction] of Blood by Automated count 37.8 % 3 7.0-51.0 [facility] ([facility]) MCHC 33.0 g/dL 31.0-38.0 [facility] MCH 30.1 pg 26.0-32.0 [facility] MCV 91.0 fL 80.0-97.0 [facility]) Platelets [#/volume] in Blood by Automated count 219 x10*3/UL 140-440 [facility] ([facility]) Erythrocyte distribution width [Ratio] by Automated count 14.4 % 11.6-13.7 [facility] ([facility]) MPV 6.9 FL 7.8-11.0 [facility]) Lymph % 27.9 % 10.0-58.5 [facility] Neut % 65.6 % 37.0-92.0 [facility]) Mid % 6.5 % 1.7-9.3 [facility] Neut # 3.5 x10*3/UL 2.0-7.8 [facility] ([facility]) Lymph # 1.5 x10*3/UL 0.6-4.1 [facility] ([facility]) Mid # 0.4 x10*3/UL 0.1-0.6 [facility] ([facility]) ID Date Data Source [id number] 05/04/2020 01:59:00 PM EDT [facility] ([facility]) Name Value Range Interpretation Code Description Data Melanie rce(s) Supporting Document(s) Triglyceride [Mass/volume] in Serum or Plasma 186 mg/dL 30-150 [facility] ([facility]) Cholesterol [Mass/volume] in Serum or Plasma 180 mg/dL 131-200 [facility] ([facility]) Cholesterol in HDL [Mass/volume] in Serum or Plasma 55 mg/dL 35-60 [facility] ([facility]) Cholesterol in LDL [Mass/volume] in Serum or Plasma by calcu lation 88 CALC 50-159 [facility] ([facility]) ID Date Data Source [id number] 05/04/2020 01:59:00 PM EDT [facility] ([facility]) Name Value Range Interpretation Code Description Data Melanie rce(s) Supporting Document(s) Glucose [Mass/volume] in Serum or Plasma 86 mg/dL 74-99 [facility] ([facility]) 100-125 mg/dL PRE-DIABETES/FASTING >126 mg/dL DIABETES/FASTING Urea nitrogen [Mass/volume] in Serum or Plasma 14 mg/dL 7-18 [facility] ([facility]) Creatinine 1.0 mg/dL 0.6-1.3 [facility] Sodium [Moles/volume] in Serum or Plasma 144 meq/L 136-145 [facility] ([facility]) Chloride [Moles/volume] in Serum or Plasma 105 meq/L 98-107 [facility] ([facility]) Potassium [Moles/volume] in Serum or Plasma 4.0 meq/L 3.5-5.1 [facility] ([facility]) Calcium [Mass/volume] in Serum or Plasma 9.9 mg/dL 8.5-10.1 [facility] ([facility]) Carbon dioxide, total [Moles/volume] in Serum or Plasma 36 meq/L 21 -32 [facility] ([facility]) Total Bilirubin 0.2 mg/dL 0.2-1.0 [facility] ([facility]) Alkaline phosphatase isoenzyme [Units/volume] in Serum or Pl asma 55 mg/dL 46-116 [facility] ([facility]) Aspartate aminotransferase [Enzymatic activity/volume] in Serum or Plasma 23 U/L 15-37 [facility] ([facility] ) Alanine aminotransferase [Enzymatic activity/volume] in Seru m or Plasma 26 U/L 12-78 [facility] ([facility]) Albumin [Mass/volume] in Serum or Plasma 3.7 g/dL 3.4-5.0 [facility] ([facility]) Proteinase 3 Ab [Units/volume] in Serum 7.7 g/dL 6.4-8.2 [facility] ([facility]) Glomerular filtration rate/1.73 sq M pre dicted among blacks [Volume Rate/Area] in Serum or Plasma by Creatinine-based formula (MDRD) Laboratory test result [facility] <content>CHRONIC KIDNEY DISEASE STAGING PER NKF</content>
<content></content>
<content>STAGE I & II GFR >= 60 NORMAL TO MILDLY DECREASED</content>
<content>STAGE III GFR 30-59 MODERATELY DECREASED</content>
<content>STAGE IV GFR 15-29 SEVERELY DECREASED</content>
<content>STAGE V GFR <15 VERY LITTLE GFR LEFT</content>
<content>ESRD GFR <15 ON PLATER HELPER</content>
<content></content> A/G Ratio 0.93 CALC 1.00-1.90 [facility] Glomerular filtration rate/1.73 sq M pre dicted among non-blacks [Volume Rate/Area] in Serum or Plasma by Creatinine-based formula (MDRD) 56 mL/min [facility] ([facility]) ID Date Data Source [id number] 05/04/2020 01:59:00 PM EDT [facility] ([facility]) Name Value Range Interpretation Code Description Data Melanie rce(s) Supporting Document(s) Leukocytes [#/volume] in Blood by Automated count 5.8 x10*3/UL 4.1-10 .9 [facility] ([facility]) Hemoglobin [Mass/volume] in Blood 12.1 g/dL 12.0-18.0 [facility] ([facility]) Erythrocytes [#/volume] in Blood by Automated count 4.06 x10*6/UL 4.2 0-6.30 [facility] ([facility]) MCV 91.6 fL 80.0-97.0 [facility]) Hematocrit [Volume Fraction] of Blood by Automated count 37.2 % 3 7.0-51.0 [facility] ([facility]) MCHC 32.6 g/dL 31.0-38.0 [facility]) MCH 29.8 pg 26.0-32.0 [facility]) Erythrocyte distribution width [Ratio] by Automated count 14.4 % 11.6-13.7 [facility] ([facility]) Platelets [#/volume] in Blood by Automated count 240 x10*3/UL 140-440 [facility] ([facility]) MPV 7.1 FL 7.8-11.0 [facility]) Lymph % 26.4 % 10.0-58.5 [facility] Mid % 7.1 % 1.7-9.3 [facility] Neut % 66.5 % 37.0-92.0 [facility] Neut # 3.8 x10*3/UL 2.0-7.8 [facility] ([facility]) Mid # 0.5 x10*3/UL 0.1-0.6 [facility] ([facility]) Lymph # 1.5 x10*3/UL 0.6-4.1 [facility] ID Date Data Source [id number] 04/23/2020 01:44:00 PM EDT [facility] Name Value Range Interpretation Code Description Data Melanie rce(s) Supporting Document(s) Lactate [Mass/volume] in Serum or Plasma 1.3 mmol/L 0.4-2.0 [facility] ([facility]) Y/N query for Sepsis Lactate Rule: Y ID Date Data Source [id number] 04/01/2020 06:10:00 AM EDT [facility] Name Value Range Interpretation Code Description Data Melanie rce(s) Supporting Document(s) Appearance, Urine RFX Laboratory test result [facility] Color, Urine RFX Laboratory test result [facility] PH,Urine RFX 8.0 units 5.0-9.0 [facility] Protein, Urine Auto RFX Laboratory test result [facility] ([facility]) Specific [place] Ur Auto RFX 1.006 1.002-1.035 [facility] ([facility]) Ketone, Urine Auto RFX Laboratory test result [facility] ([facility]) Glucose, Urine (Ua) Auto RFX Laboratory test result [facility] Bilirubin, Urine Auto RFX Laboratory test result [facility] ([facility]) Urobilinogen, Urine Auto RFX 0.2 mg/dL 0.0-2.0 [facility] Leukocyte Esterase Ur Auto RFX Laboratory test result [facility] Nitrite, Urine Auto RFX Laboratory test result [facility] ([facility]) Blood, Urine Blood RFX Laboratory test result [facility] WBC, Urine Auto RFX 1 /HPF 0-3 [facility] Bacteria, Urine Auto RFX Laboratory test result [facility] RBC, Urine Auto RFX 2 /HPF 0-3 [facility] ([facility] Squam Epithelial Cell Ur Aurfx 1 /HPF 0-6 [facility] Hyaline Cast, Urine Auto RFX 0 /LPF 0-1 [facility] ([facility]) Amorphous Sediment RFX Laboratory test result [facility] ([facility]) ID Date Data Source [id number] 03/21/2020 08:47:00 AM EDT [facility] [address] [place] [address] PHONE: [phone] FAX: [phone] Name .................. : CANDIDO MARIO Acct Number.................. : [id number] ROOM. ................. : TR-06 Number ................... : [id number] Stay type ............. : E/R Discharge Date......... ... : 03/18/20 Admit Date ......... : 03/18/20 Admit Phys .................... : VENERUS BR Date of ....... : 1955 Family Phys ................... : JENNY Ginx Phone .................. : [phone] Age ................................ : 64 Film# .................. .:[id number] Sex ................................. : F Unsigned transcriptions are preliminary reports and do not represent a medical or legal document [place]OT COMPLETE-[address] [place] [id number] COMPLETE:03/18/20 05:31 KJE [id number] Reason(s): Pain RIGHT FOOT X-RAY: HISTORY: Pain. [...] rce(s) Supporting Document(s) ID Date Data Source [id number] 03/21/2020 08:47:00 AM EDT [facility] [address] [place] [address] PHONE: [phone] FAX: [phone] Name .................. : CANDIDO MARIO Acct Number.................. : [id number] ROOM. ................. : TR-06 Number ................... : [id number] Stay type ............. : E/R Discharge Date......... ... : 03/18/20 Admit Date ......... : 03/18/20 Admit Phys .................... : TAMAR BHAKTA Date of ....... : 1955 Family Phys ................... : JENNY JOSE Phone .................. : [phone] Age ................................ : 64 Film# .................. .:[id number] Sex ................................. : F Unsigned transcriptions are preliminary reports and do not represent a medical or legal document ANKLE COMPLETE RT [id number] COMPLETE:03/18/20 05:31 KJE [id number] Reas on(s): Trauma/Injury RIGHT ANKLE X-RAY: 3-VIEWS [...] pressure 134 mm[Hg] 134 mm[Hg] M [facility] ([facility]) Diastolic blood pressure 84 mm[Hg] 84 mm[Hg] [facility] ([facility]) Heart rate 87 /min 87 /min [facility] ([facility]) Oxygen saturation in Arterial blood by Pulse oximetry 93 % 93 % [facility] ([facility]) Body temperature 97.0 [degF] 97.0 [degF] [facility] ([facility]) Body height 59 [in_i] 59 [in_i] [facility] ([facility]) 4'11" Body weight 152.00 [lb_av] 152.00 [lb_av] [facility] ([facility]) Body mass index (BMI) [Ratio] 30.7 kg/m2 30.7 k g/m2 [facility] ([facility]) [place] body weight 100 [lb_av] 100 [lb_av] [facility] ([facility]) Body weight 68.947 kg 68.947 kg [facility] ([facility]) Body surface area Derived from formula 1.64 m2 1.64 m2 [facility] ([facility]) Systolic blood pressure 122 mm[Hg] 122 mm[Hg] [facility] Diastolic blood pressure 80 mm[Hg] 80 mm[Hg] [facility] ([facility]) Heart rate 102 /min 102 /min [facility] ([facility]) Body height 59 [in_i] 59 [in_i] [facility] ([facility]) 4'11" Body weight 157.00 [lb_av] 157.00 [lb_av] [facility] ([facility]) Oxygen saturation in Arterial blood by Pulse oximetry 97 % 97 % [facility] ([facility]) Body mass index (BMI) [Ratio] 31.7 kg/m2 31.7 k g/m2 [facility] ([facility]) Body mass index (BMI) [Ratio] 31.5 kg/m2 31.5 k g/m2 [facility] ([facility]) Heart rate 94 /min 94 /min [facility] ([facility]) Body height 59 [in_i] 59 [in_i] [facility] ([facility]) 4'11" Body weight 156.00 [lb_av] 156.00 [lb_av] [facility] ([facility]) Oxygen saturation in Arterial blood by Pulse oximetry 96 % 96 % [facility] ([facility]) Systolic blood pressure 116 mm[Hg] 116 mm[Hg] [facility] Diastolic blood pressure 72 mm[Hg] 72 mm[Hg] [facility] ([facility]) Heart rate 94 /min 94 /min [facility] ([facility]) Body height 59 [in_i] 59 [in_i] [facility] ([facility]) 4'11" Body mass index (BMI) [Ratio] 31.3 kg/m2 31.3 k g/m2 [facility] ([facility]) Body weight 155.00 [lb_av] 155.00 [lb_av] [facility] ([facility]) Oxygen saturation in Arterial blood by Pulse oximetry 96 % 96 % [facility] ([facility])
== END 2021-05-19 13:11 | disposition home or self-care (01) ==
LOC: M ED 06:10
DX: R19.7 Diarrhea, unspecified (principal); F31.9 Bipolar disorder, unspecified; G43.909 Migraine, unspecified, not intractable, without status migrainosus; Z79.01 Long term (current) use of a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; Z79.899 Other long term (current) drug therapy; Z88.0 Allergy status to penicillin; Z88.8 Allergy status to other drugs, medicaments and biological substances; Z91.040 Latex allergy status

== ENCOUNTER 2021-05-26 07:32 | Emergency (ER) | payer MEDICARE, MEDICAID ==
[~2021-05-26] VITALS: Ht 149.9 cm; Wt 64.0 kg
--- OUTSIDE RECORDS SUMMARY | 2021-05-26 07:41 | CCD ---
Author Author [facility] Organization [facility] Address Unknown Phone Unavailable Care Team Providers Care Senior Java Software Developer Name Role Phone MARK, F XAVIER DO [...] XAVIER DO Unavailable Unavailable Hospital Lab, [facility] [place] Unavailable Unavailable Serge Echeverria MD Unavailable Unavailable [...] J Daisy ANP Unavailable Unavailable JENNY, J Diasy ANP Unavailable Unavailable JENNY, J Daisy ANP [...] Unavailable Rosalinda BOYLE MD Unavailable Unavailable Rosalinda OBYLE MD Unavailable Unavailable Rosalinda BOYLE MD Unavailable [...] is protected by Article 27-F of the [facility] Public Health law. If you continue you may have access to information: Regarding HIV / AIDS; Provided by facilities licensed or operated by the [facility] Office of Mental Health; or Provided by the [facility] Office for People With Developmental Disabilities. If such information is present, then the following [facility] mandated warning applies: This information has [...] [place] Unknown Female Problem [facility] Unknown Female Problem [facility] ([facility]) Unknown Female Problem [facility] ([facility]) Encounters Encounter Providers Location Date Indications Data Source(s ) Emergency Attender: Serge Echeverria MDConsultant: Daisy CHENEY 03/04/2021 11:38:00 AM EDT - 03/04/2021 02:32:00 PM EDT [facility] Patient discharged. Emergency Attender: Serge Echeverria MDConsultant: Daisy RODRIGUEZ ANP 02/17/2021 07:58:00 AM EDT - 02/17/2021 10:25:00 AM EDT [facility] Patient discharged. Emergency Attender: XAVIER ROBERTSON DOConsultant: Daisy CHENEY 12/10/2020 05:37:00 AM EDT - 12/10/2020 07:15:00 AM EDT [facility] Patient discharged. Emergency Attender: KAREN SAUCEDO MDConsultant: Susan RODRIGUEZ ANP 12/01/2020 12:20:00 PM EDT - 12/01/2020 04:50:00 PM EDT [facility] Patient discharged. Outpatient Attender: [facility] 10/14/2020 12:0 4:00 AM EDT [facility] Emergency Attender: KAREN SAUCEDO MDConsultant: Susan RODRIGUEZ ANP 10/13/2020 11:01:00 PM EDT - 10/14/2020 04:24:00 AM EDT [facility] Patient discharged. Outpatient Attender: Daisy Craig 05/2021 01:40:00 PM EST [facility] ([facility] ) Emergency Attender: HENRI BOYLE MDConsultant: Daisy TREVINO ANP 07/01/2020 06:35:00 AM EST - 07/01/2020 07:46:00 AM EST [facility] Patient discharged. Outpatient Attender: Daisy Craig 01:45:00 PM EST [facility] ([facility] ) Outpatient Attender: Daisy Craig 02:45:00 PM EDT [facility] ([facility] ) Immunizations Vaccine Date Status Description Data Source(s) COVID-19 VACCINE [facility] 04/11/2021 12:00:00 AM EDT completed [facility] Vaccine Series Complete: YESThis Data wa s Submitted to [facility] Via [employer]. COVID-19 VACCINE Pfizer 03/21/2021 12:00:00 AM EDT completed [facility] Vaccine Series Complete: NOThis Data was Submitted to [facility] [employer]. Influenza, injectable, MDCK, preservative free, stefania valent 05/01/2020 02:55:00 PM EDT completed [facility] ([facility]) Medications Medication Brand Name Start Date Product Form Dose Route Admi nistrative Instructions Pharmacy Instructions Status Indications Reaction Description Data Source(s) 200 mg calcium (500 mg) 05/21/2021 12:00:00 AM EDT tablet,ch ewable 180 TAKE 2 TABLETS BY MOUTH THREE TIMES A DAY TAKE 2 TABLETS BY MOUTH THREE TIMES A DAY SOLD: 05/22/2021 [facility] 30 mg 05/13/2021 12:00:00 AM EDT tablet [...] EACH MEAL A ND BEFORE BED SOLD: 05/22/2021 [facility] 125 mg 03/31/2021 12:00:00 [...] 8 HOURS NEEDED FOR DIZZINESS SOLD: 04/10/2021 [facility] Meclizine Hydrochloride 25 MG Oral Tablet MECLIZINE HCL 01/09/2021 12:00:00 AM EDT tablet 90 TAKE ONE TABLET BY MOUTH VICKI RY 8 HOURS NEEDED FOR DIZZINESS TAKE ONE TABLET BY MOUTH EVERY 8 HOURS NEEDED FOR DIZZINESS SOLD: 05/22/2021 [facility] 25 mg 12/28/2020 12:00:00 AM EDT tablet 30 TAKE ONE TABLET BY MOUTH EVERY DAY (BENADRYL) TAKE ONE TABLET BY MOUTH EVERY DAY (BENADRYL) SOLD: 12/30/2020 [facility] NITROFURANTOIN, MACROCRYSTALS 25 MG / Ni trofurantoin, Monohydrate 75 MG Oral Capsule 100 mg NITROFURANTOIN MONOHYD/M-CRYST 12/26/2020 12:00:00 AM EDT ca psule 14 TAKE ONE CAPSULE BY MOUTH TWICE A DAY FOR 7 DAYS TAKE ONE CAPSULE BY MOUTH TWICE A DAY FOR 7 DAYS SOLD: 12/26/2020 [facility] Ondansetron 4 MG Disintegrating Oral Tablet [...] Antacid 11/07/2020 12:00:00 AM EDT active [facility] ([facility]) 30 mg 11/07/2020 12:00:00 AM EDT [...] 09/20/2020 12:00:00 AM EST ORAL active [facility]) 2.5-0.025 mg 09/12/2020 12:00:00 AM [...] 09/05/2020 12:00:00 AM EST active [facility] 1 gram 09/05/2020 12:00:00 AM EST [...] MAXIMUM DAILY DOSE = 9 TABLETS SOLD: 05/22/2021 [facility] 1 gram 09/05/2020 12:00:00 AM EST tablet 120 TAKE THREE TABLETS BY MOUTH TWICE A DAY MAY INCREASE DURING EPISODES OF EXTREME DIARRHEA MAXIMUM DAILY DOSE = 9 TABLETS TAKE THREE TABLETS BY MOUTH TWICE A DAY MAY INCREASE DURING EPISODES OF EXTREME DIARRHEA MAXIMUM DAILY DOSE = 9 TABLETS SOLD: 03/07/2021 [facility] 1 gram 09/05/2020 12:00:00 AM EST tablet 180 TAKE THREE TABLETS BY MOUTH TWICE A DAY MAY INCREASE DURING EPISODES OF EXTREME DIARRHEA MAXIMUM DAILY DOSE = 9 TABLETS TAKE THREE TABLETS BY MOUTH TWICE A DAY MAY INCREASE DURING EPISODES OF EXTREME DIARRHEA MAXIMUM DAILY DOSE = 9 TABLETS SOLD: 11/28/2020 [facility] olanzapine 5 MG Oral Tablet OLANZAPINE 09/03/2020 12:00:00 AM EST tabl et 60 TAKE ONE TABLET BY MOUTH THREE TIMES A DAY TAKE ONE TABLET BY MOUTH THREE TIMES A DAY SOLD: 02/06/2021 [facility] 25 mg 09/03/2020 12:00:00 AM EST tablet 30 TAKE ONE TABLET BY MOUTH EVERY DAY (BENADRYL) TAKE ONE TABLET BY MOUTH EVERY DAY (BENADRYL) SOLD: 09/05/2020 [facility] olanzapine 5 MG Oral Tablet OLANZAPINE 09/03/2020 12:00:00 AM EST tabl et 90 TAKE ONE TABLET BY MOUTH THREE TIMES A DAY TAKE ONE TABLET BY MOUTH THREE TIMES A DAY SOLD: 10/03/2020 [facility] olanzapine 5 MG Oral Tablet OLANZAPINE 09/03/2020 12:00:00 AM EST tabl et 90 TAKE ONE TABLET BY MOUTH THREE TIMES A DAY TAKE ONE TABLET BY MOUTH THREE TIMES A DAY SOLD: 11/07/2020 [facility] olanzapine 5 MG Oral Tablet [...] MOUTH EVERY DAY SOLD: 02/27/2021 [facility] 2 mg 07/27/2020 12:00:00 AM EST tablet 90 TAKE ONE TABLET BY MOUTH EVERY DAY TAKE ONE TABLET BY MOUTH EVERY DAY SOLD: 05/22/2021 [facility] 23 X 36 " 07/19/2020 [...] DOSE = TWO TABLETS SOLD: 07/18/2020 [facility] Cyclobenzaprine hydrochloride 10 MG Oral Tablet CYCLOBENZAPR INE HCL 07/11/2020 12:00:00 AM EST tablet 60 TAKE ONE TABLET BY MOUTH TWICE A DAY NEEDED TAKE ONE TABLET BY MOUTH TWICE A DAY NEEDED SOLD: 08/08/2020 [facility] Cyclobenzaprine hydrochloride 10 MG Oral Tablet CYCLOBENZAPR [...] MOUTH TWICE A DAY NEEDED SOLD: 11/07/2020 [facility] Cyclobenzaprine hydrochloride 10 MG Oral Tablet CYCLOBENZAPR [...] DIAPER,BRIEF,ADULT, DISPOSABLE 05/07/2020 12:00:00 AM EDT [facility] 240 CHANGE NEEDED UP TO 8 TIMES A DAY CHANGE NEEDED UP TO 8 TIMES A DAY SOLD: 06/06/2020 [facility] DIAPER,BRIEF,ADULT, DISPOSABLE 05/07/2020 12:00:00 AM EDT [facility] [place] CHANGE NEEDED UP TO 8 TIMES [...] Drugs DIAPER,BRIEF,ADULT, DISPOSABLE 05/07/2020 12:00:00 AM EDT [facility] CHANGE NEEDED UP TO 8 TIMES [...] Olanzapine 05/01/2020 12:00:00 AM EDT completed [facility] ([facility]) 2 mg 05/01/2020 12:00:00 AM EDT [...] MEAL A ND BEFORE BED SOLD: 07/11/2020 [facility] 125 mg 04/14/2020 12:00:00 AM [...] 04/04/2020 12:00:00 AM EDT active M MAGDI ([facility]) olanzapine 2.5 MG Oral Tablet OLANZAPINE 02/08/2020 [...] = 5 CAPSULES SOLD: 05/02/2020 [facility] 200 mg calcium (500 mg) [...] TWICE A DAY SOLD: 07/18/2020 [facility] 25 mg 09/28/2019 12:00:00 AM EDT tablet 90 TAKE ONE TABLET BY MOUTH EVERY 8 HOURS NEEDED FOR DIZZINESS TAKE ONE TABLET BY MOUTH EVERY 8 HOURS A S NEEDED FOR DIZZINESS SOLD: 04/04/2020 [facility] 1 gram 07/27/2019 12:00:00 AM [...] Information Medicare Natl Govt Servic Medicare Primary [id number] Self 0 [id number] Medicare Natl Govt Servic Medicare Primary [id number] Self 0 [id number] Medicare Natl Govt Servic Medicare Primary [id number] Self [id number] Medicare Natl Govt Servic Medicare Primary [id number] Self 0 [id number] Medicare Natl Govt Servic Medicare Primary [id number] Self [id number] Medicare - [place] Medicare Primary [id number] Self [id number] Medicare Natl Govt Servic Medicare Primary [id number] Self Medicare Natl Govt Servic Medicare Primary [id number] Self 4 [id number] Medicare - [place]GS Medicare Primary [id number] Self [id number] Medicare Natl Govt Servic Medicare Primary [id number] Self 4 [id number] Medicare Natl Govt Servic Medicare Primary [id number] Self 0 [id number] A Medicare Natl Govt [facility] Medicare Primary [id number] Self 4 [id number] BS [facility] Medigap Part B [id number] Self MEDICARE [id number] SP [id number] BS [place] Medigap Part B [id number] Self [id number] BS [place] Commercial [id number] Self [id number] MEDICARE [id number] SP [id number] [place] [id number] Self [place] Med[place] Part B [id number] Self MEDICAID [id number] SP [id number] [facility] [id number] 0.0 Self [id number] MEDICAID M [id number] S [id number] MEDICAID [id number] SP [id number] ANSI-Medicare Part B [id number] ANSI-Medicaid [id number] ANSI-Medicare Part B [id number] ANSI-Medicaid [id number] ANSI-Medicare Part B [id number] ANSI-Medicaid [id number] ANSI-Medicare Part B [id number] ANSI-Medicaid [id number] ANSI-Medicaid [id number] ANSI-Medicare Part B [id number] MEDICARE [id number] SP [id number] ANSI-Medicare Part B [id number] ANSI-Medicaid [id number] Medicaid Medigap Part B [id number] 0.0 Self [id number] [place] Part [place] [id number] Self [id number] ANSI-Medicaid [id number] ANSI-Medicare Part B [id number] ANSI-Medicare Part B [id number] ANSI-Medicaid [id number] MEDICARE C [id number] S [id number] A Medicaid Medigap Part B [id number] 0.0 Self [id number] Medicaid Medigap Part B [id number] 0.0 Self [id number] Medicaid Medigap Part B [id number] 0.0 Self [id number] Medicaid Medigap Part B [id number] 0.0 Self [id number] [facility] [id number] S [id number] MEDICARE [id number] SP [id number] [place] Medig[place] Part B [id number] Self Medicaid Medigap Part B [id number] Self 1 1 [place] Medig[place] Part B [id number] Self [id number] [place] Medig[place] Part B [id number] Self [place] 306/806 NOT ACTIVE SP NOT ACTIVE SELF PAY UNAVAILABLE SP UNAVAILA BLE [place] 306/806 [id number] SP [id number] [place] BCBS S [id number] S [id number] [place] P[place] 302/307 [id number] SP [id number] [place] [id number] SP [id number] Y [id number] MEDICARE PART A -O/P [id number] 18 [id number] MEDICAID -O/P EMERGENCY ROOM [id number] 18 [id number] [place]ED[place] [id number] SP [id number] MEDICARE C [id number] S [id number] MEDICARE PART A -O/P [id number] 18 [id number] MEDICARE PART A -O/P [id number] 18 [id number] Medicaid Medigap Part B [id number] Self [id number] [place] Med[place] Part B [id number] Self [id number] Medicaid Medigap Part B [id number] 0.0 Self [id number] [place] Part B [id number] [id number] Self [id number] [place] Part B [id number] Self [id number] [id number] MEDICARE [id number] SP [id number] Medicaid Medigap Part B [id number] 0.0 Self [id number] ANSI-Medicare Part B [id number] ANSI-Medicaid [id number] ANSI-Medicaid [id number] ANSI-Medicare Part B [id number] ANSI-Medicaid [id number] ANSI-Medicare Part B [id number] Problems, Conditions, and Diagnoses Code Display Name Description Problem Type Effective Dates Data Source(s) T00144 Presence of unspecified artificial hip j oint Presence of unspecified artificial hip joint Diagnosis 03/04/2021 11:38:00 AM EDT [facility] [id number] Personal history of nicotine dependence Personal history of nicotine dependence Diagnosis 03/04/2021 11:38:00 AM EDT [facility] Z7901 intermediate (current) use of a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 intermediate (current) use of a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 Diagnosis 03/04/2021 11:38:00 AM EDT [facility] E119 Type 2 diabetes mellitus without complic ations Type 2 diabetes mellitus without complications Diagnosis 03/04/2021 11:38:00 AM EDT [facility] I10 Essential (primary) hypertension Essential (primary) h ypertension Diagnosis 03/04/2021 11:38:00 AM EDT [facility] K5900 Constipation, unspecified Constipation, unspecified Di agnosis 03/04/2021 11:38:00 AM [facility] N3000 Acute cystitis without hematuria Acute cystitis without hematuria Diagnosis 02/17[facility]2021 07:58[facility] T70[facility] Pressure ulcer of other site, unspecifie d stage Pressure ulcer of other site, unspecified stage Diagnosis 02/17/2021 07:58:00 AM [facility] U34075 Pain in right foot Pain in right foot Diagnosis 07:58:[facility] G8929 Other chronic pain Other chronic pain Diagnosis 05:37:00 AM [facility] Z49842 Pain in right ankle and joints of right foot Pain in right ankle and joints of right foot Diagnosis 12/10/2020 05:37:00 AM [facility] R300 Dysuria Dysuria Diagnosis 12/10/2020 05:37:00 AM ED [facility] R1312 Dysphagia, oropharyngeal phase Dysphagia, oropharyngea l phase Diagnosis 12/01/2020 12:20:00 PM [facility] J029 Acute pharyngitis, unspecified Acute pharyngitis, unsp ecified Diagnosis 12/01/2020 12:20:00 PM [facility] G94314 Unspecified asthma, uncomplicated Unspecified as thma, uncomplicated Diagnosis 10/13/2020 11:01:00 PM [facility] M419 Scoliosis, unspecified Scoliosis, unspecified Diagnosi s 10/13/2020 11:01:00 PM [facility] N3001 Acute cystitis with hematuria Acute cystitis with ilda turia Diagnosis 10/13/2020 11:01:00 PM [facility] R05 Cough Cough Diagnosis 10/13/2020 11:01:00 PM ED [facility] O37981 Personal history of urinary (tract) infe ctions Personal history of urinary (tract) infections Diagnosis 07/01/2020 06:35:[address] 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 ID Date Data Source [id number] 04/22/2021 08:18:00 AM EDT [facility] Name Value Range Interpretation Code Description Data Melanie rce(s) Supporting Document(s) SARS-CoV-2 (COVID 19) NEGATIVE - SARS-CoV-2 (COVID19) [facility] This lab was ordered by [facility] a nd reported by [facility]. ID Date Data Source [id number] 03/04/2021 11:38:00 AM EDT [facility] 1 OrderSheet [facility] Emergency Department [address] [place] [address] Phone #: ext- [phone] 03/04/2021 11:37 Patient: FABIANO RAMIREZ Sex: F : 1955 Age: 65yWEIGHT:77.1 kg (S) HEIGHT:59 inches (S) BMI:34.4ALLERGIES: Darvacet, Demerol, MicrodentinCHIEF COMPLAINT: abd pain, constipationDIAGNOSIS: ConstipationLAB ORDERSOrder Description Priority Entered Acknowledged InitialedDIAGNOSTIC STUDY ORDERSOrder Description Priority Entered Acknowledged InitialedAbdomen Multiview STAT 13:02 03/04/2021 13:03 Daquan(Oxygen?(No)) Anita Fuentes manufacturing director, Julio TREVINO PA; Tech1 Reason for Study: constipation, lower abd painMEDICATION/IV/DRIP/FLUID ORDERSOrder Description Priority Entered Acknowledged InitialedGENERAL ORDERSOrder Description Priority Entered Acknowledged Initialed[Electronically signed by So Ladd R.N. (14:35 03/04/2021)][Electronically signed by Anita Fuentes (07:30 03/05/2021)][Electronically locked by Tyler Ladd R.N. (14:35 03/04/2021)] Name Value Range Interpretation Code Description Data Melanie rce(s) Supporting Document(s) ID Date Data Source [id number] 03/04/2021 11:38:00 AM EDT [facility] 1 Medication Reconciliation Report [facility] Emergency Department [address] [place] [address] Phone #: ext- [phone] 03/04/2021 11:37 Patient: [...] the Emergency Department: 2 Medication Reconciliation Report [facility] Emergency Department [address] [place] [address] Phone #: ext [phone] 03/04/2021 11:37 Patient: FABIANO RAMIREZ Sex: F : 1955 Age: 65yNone.The following Medications were prescribed to the patient:None. Name Value Range Interpretation Code Description Data Melanie rce(s) Supporting Document(s) ID Date Data Source [id number] 03/04/2021 11:38:00 AM EDT [place] [address] Medication Administration Record [facility] Emergency Department [address] [place] [address] Phone #: ext [phone] 03/04/2021 11:37 Patient: FABIANO RAMIREZ Sex: F : 1955 Age: 65yWeight: 77.1 kgHeight/Length: 59 inBMI: 34.4ALLERGIES: Darvacet, Microdentin, DemerolDate/Time Medication Administered Medication Ordered Name Value Range Interpretation Code Description Data Melanie rce(s) Supporting Document(s) ID Date Data Source [id number] 03/04/2021 11:38:00 AM EDT [facility] 1 General Instructions [facility] Emergency Department [address] [place] [address] Phone #: ext- [phone] 03/04/2021 11:37 Patient: FABIANO RAMIREZ Sex: F [...] much. Follow up with your regular provider ashutosh this week).Warnings: Further evaluation is necessary. It [...] by patient. ADDITIONAL INFORMATION 2 General Instructions [facility] Emergency Department [address] [place] [address] Phone #: ext- [phone] 03/04/2021 11:37 Patient: FABIANO RAMIREZ Sex: F [...] aging, work, and travel 3 General Instructions [facility] Emergency Department [address] [place] [address] Phone #: ext- [phone] 03/04/2021 11:37 Patient: [...] you can't pass Bowel obstruction or perforationHome [facility]ton va medical centerAll treatment should be done after talking with [...] your healthcare provider first. 4 General Instructions [facility] Emergency Department [address] [place] [address] Phone #: ext- [phone] 03/04/2021 11:37 Patient: [...] have more tests or see a specialist.Call [facility] if any of these occur: Trouble breathing Stiff, rigid abdomen that is severely painful to touch Confusion Fainting or loss of consciousness Rapid heart rate Chest painWhen to seek medical adviceCall your healthcare provider right away if any of these occur: Fever of 100.4F (38C) or higher, or as directed by your healthcare provider 5 General Instructions [facility] Emergency Department [address] [place] [address] Phone #: ext- [phone] 03/04/2021 11:37 Patient: FABIANO RAMIREZ Sex: F : 1955 Age: 65y Failure to resume normal bowel movements Pain in your abdomen or back gets worse Nausea or vomiting Swelling in your abdomen Blood in the stool Black, tarry stool Involuntary weight loss Weakness [phone] [employer]. [address] [place] [address]. All rights reserved. This information is not [...] high in fiber 6 Genera l Instructions [facility] Emergency Department [address] [place] [address] Phone #: ext- [phone] 03/04/2021 11:37 Patient: FABIANO RAMIREZ Sex: F [...] green peas, celery, eggplant, potatoes, spinach, broccoli, [place] sprouts, winter squash, carrots, cauliflower, soybeans, lentils, and fresh and dried beans of all kinds. Other. Popcorn; any spicesIf you have diverticulosisThere aren't any specific foods to avoid if you have diverticulosis. But each person is different. Theremay be some foods that make your symptoms worse. Keep track and don't eat foods that make youfeel worse. 3770-8152 [employer]. [address] [place] [address], [place] [address]. All rights reserved. This information is not intended as asubstitute for professional medical care. Always follow your health director of career resources's instructions. You have been given the following additional information: Constipation (Adult) High-Fiber Diet(Electronically signed by EMRE Puga 03/05/2021 07:30) Name Value Range Interpretation Code Description Data Melnaie rce(s) Supporting Document(s) ID Date Data Source [id number] 03/04/2021 11:38:00 AM EDT [facility] 1 Clinical Report - Nurses [facility] Emergency Department [address] [place] [address] Phone #: ext- [phone] 03/04/2021 11:37 Patient: FABIANO RAMIREZ Sex: F : 1955 Age: 65yTRIAGEArrived by EMS. Historian: patient. Unaccompanied.Triage time: late entry - 11:34 03/04/2021. Acuity: LEVEL 3.Chief Complaint: ABDOMINAL PAIN and CONSTIPATION.Alert. No acute distress.Onset. (1 weeks ago). ( Pt hasnt had a normal BM in about a week. Pt was seen at [facility] yesterday andwas unable to tolerate a CT scan. She had a small BM 2 days ago. Pt has c/o of abd pain with a burningsensation.). She has had constipation.Treatment INSTRUCTION LIBRARIAN:None.SEPSIS SCREEN: SIRS SCREEN NEGATIVE. SEPSIS SCREEN NEGATIVE. No suspected or confirmedsigns of infection present. --11:45 03/04/21 So Ladd RClaudia.11:40 03/04/21. BP: 113/74. MAP: 87. HR: 95. RR: 18. O2 saturation: 98% on room air. Temp: 98.9 F(temporal). Pain level now: 04/29. --11:45 03/04/21 So Ladd RClaudia.Weight: 77.1 kg stated. Height/Length: 59 inches Per [...] Ladd R.N.Darvacet. 2 Clinical Report - Nurses [facility] Emergency Department [address] [place] [address] Phone #: ext- [phone] 03/04/2021 11:37 Patient: FABIANO RAMIREZ Sex: F : 1955 Age: 65yMicrodentin. --11:52 03/04/21 So Ladd R.N.PROBLEMS:Cystitis.Cough.Dysphagia.Diabetes Mellitus Type 2.Contusion.Arthritis.Ankle Injury.Chronic Back Pain.Cervical Strain.Spinal Tumor.Lower Extremity Pain.UTI - Urinary Tract Infection.Sprain.Incontinence.Islas Catheter.Fall.Hypoglycemia.Hypertension. --11:48 03/04/21 So Ladd R.N.Medication/allergy information source: the patient. --11:45 03/04/21 So Ladd R.N.ADDITIONAL SURGERIES:Appendectomy.Hernia Repair.Hip Prosthesis.Spinal surgery. --11:48 03/04/21 Ladd, So, R.N.HistoryPAST MEDICAL HX: The patient is post- [...] "Do you 3 Clinical Report - Nurses [facility] Emergency Department [address] [place] [address] Phone #: ext- [phone] 03/04/2021 11:37 Patient: [...] Ladd R.N. 4 Clinical Report - Nurses [facility] Emergency Department [address] [place] [address] Phone #: ext- [phone] 03/04/2021 11:37 [id number] Sex: [facility] : 1955 Age: 65y Rounding: Personal care / toileting: assisted with toileting. --13:49 03/04/21 So Ladd R.N. late entry - 14:00 03/04/21. ( Pt had a moderate BM, PA aware). --14:35 03/04/21 So Ladd R.N.DISPOSITION / DISCHARGE 14:19 03/04/21. BP: 112/65. HR: 82. RR: 18. O2 saturation: 98%. Temp: 98.2 F. Pain level now 5/10. --14:19 03/04/21 [facility] Tech, BELINDA Kim Tech1 late entry - 14:32 03/04/21. Departure time: 14:32 03/04/2021. Rowlett Coma Scale: 15- eyes open- spontaneous (4); best verbal response- oriented (5); best motor response- obeys commands (6). Condition at departure: improved and stable. No learning barriers present. Discharge instructions provided and reviewed with the patient. Reviewed warnings. Reviewed referral to a primary care physician for followup. Patient verbalized understanding. Written instructions provided in Georgian. The patient was discharged by the physician insurance legal assistant. She was discharged home and unaccompanied at time of discharge. She left ambulatory and via taxi. 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 --14:34 03/04/21 So Ladd R.N.Locked/Released at 03/04/2021 14:35 by So Ladd R.N. Name Value Range Interpretation Code Description Data Melanie rce(s) Supporting Document(s) ID Date Data Source [id number] 03/04/2021 11:38:00 AM EDT [facility] 1 Clinical Report - Physicians/Mid Levels [facility] Emergency Department [address] [place] [address] Phone #: ext- [phone] 03/04/2021 11:37 [facility]: [id number] Sex: F : 1955 Age: 65y Time [...] bed and bathroom." She was seen at [facility] yesterday but was unable to tolerate [...] seen recently by a health care provider ([facility] ED yesterday).REVIEW OF SYSTEMSNo chills, fatigue, [...] Repair. 2 Clinical Report - Physicians/Mid Levels [facility] Emergency Department [address] [place] [address] Phone #: ext- [phone] 03/04/2021 11:37 Patient: [...] room air. Temp: 98.9 F.Pain level now: 10/10. Have been reviewed and appear to be [...] 3. 3 Clinical Report - Physicians/Mid Levels [facility] Emergency Department [address] [place] [address] Phone #: ext- [phone] 03/04/2021 11:37 Patient: FABIANO RAMIREZ Sex: F : 1955 Age: 65yLABS, X-RAYS, AND EKGLaboratory Tests: Laboratory tests have been ordered, with results reviewed and considered in themedical decision making process. Abdomen Multiview: (OLE: 03/04/2021 13:02) ( MsgRcvd 03/04/2021 15:03) Final results Exam [place] [address] PHONE: [phone] FAX: [phone] Name .................. : CANDIDO MARIO Acct Number.................. : [id number] ROOM. ................. : TR-03 MR Number ................... : [id number] Stay type ............. : E/R Discharge Date......... ... : Admit Date ......... : 03/04/21 Admit Phys .................... : IRMA Stallings Date of ....... : 1955 Family Phys ................... : JENNY GARCIA Phone .................. : [phone] Age ................................ : 65 Film# .................. .:[id number] Sex ................................. : F Unsigned transcriptions are preliminary reports and do not represent a medical or legal document ABDOMEN MULTIPLE VIEW [id number] COMPLETE:03/04/21 13:02 Reason(s): constipation, lower abd pain [...] REC 4 Clinical Report - Physicians/Mid Levels [facility] [place] [address] Phone #: ext- [phone] 03/04/2021 11:37 Patient: FABIANO RAMIREZ [facility]#: [id number] Sex: F : 1955 Age: 65y Page [...] packet. 5 Clinical Report - Physicians/Mid Levels [facility] Emergency Department [address] [place] [address] Phone #: ext- [phone] 03/04/2021 11:37 Patient: FABIANO RAMIREZ Sex: F : 1955 Age: 65y Motrin IB Oral : 400, prn. Potassium Chloride Oral : Packet 20 meq, 2x a day. Promethazine HCl Oral : Tablet 25 mg, prn. Sudafed Oral : 60 mg 2x a day. ZyPREXA Oral : Tablet 10 mg, at bedtime. Follow-up: Follow up with your [facility] provider Daisy Rodriguez NP Friday. Call for an appointment. Reason for referral: evaluation and treatment. Summary of care provided to patient via paper. Understanding of the discharge instructions verbalized by patient.(Electronically signed by EMRE Puga 03/05/2021 07:30) Name Value Range Interpretation Code Description Data Melanie rce(s) Supporting Document(s) ID Date Data Source [id number] 03/04/2021 03:03:00 [place] [address] PHONE: [phone] FAX: [phone] Name .................. : CANDIDO AMRIO Acct Number.................. : [id number] ROOM. ................. : TR-03 MR Number ................... : [id number] Stay type ............. : E/R Discharge Date......... ... : Admit Date ......... : 03/04/21 Admit Phys .................... : IRMA Stallings Date of ....... : 1955 Family Phys ................... : JENNY NAN Phone .................. : [phone] Age ................................ : 65 Film# .................. .:[id number] Sex ................................. : F Unsigned transcriptions are preliminary reports and do not represent a medical or legal document ABDOMEN MULTIPLE VIEW [id number] COMPLETE:03/04/21 13:02 Reason(s): constipation, lower abd pain [...] rce(s) Supporting Document(s) ID Date Data Source [id number] 02/19/2021 09:47:00 AM EDT [facility] [address] [place] [address] PHONE: [phone] FAX: [phone] Name .................. : CANDIDO MARIO Acct Number.................. : [id number] ROOM. ................. : TR-02 Number ................... : [id number] Stay type ............. : E/R Discharge Date......... ... : 02/17/21 Admit Date ......... : 02/17/21 Admit Phys .................... : IRMA Stallings Date of ....... : 1955 Family Phys ................... : JENNY [employer] Phone .................. : [phone] Age ................................ : 65 Film# .................. .:[id number] Sex ................................. 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 No other abnormalities. 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 Electronically Reviewed and Signed By NIGEL LEVINE MD , 02/19/21 09:47, [facility] Transcribe Initials: DZ , Transcribe Date: 02/17/21 11:42, Dictation Date: Copy for: EMERGENCY DEPT [facility] Copy for: 710 MED REC DISCHARGED Page 1 of 1 Name Value Range Interpretation Code Description Data Melanie rce(s) Supporting Document(s) ID Date Data Source [id number] 02/17/2021 07:58:00 AM EDT [facility] 1 OrderSheet [facility] Emergency Department [address] [place] [address] Phone #: ext- [phone] 02/17/2021 07:54 Patient: FABIANO RAMIREZ Sex: F : 1955 Age: 65yWEIGHT:67.8 kg (M) HEIGHT:59 inches (S) BMI:30.2ALLERGIES: Darvacet, Demerol, MicrodentinCHIEF COMPLAINT: painDIAGNOSIS: CystitisLAB ORDERSOrder Description Priority Entered Acknowledged InitialedUrinalysis (Clean STAT 08:31 02/17/2021 08:57 PeterCatch) Serge Echeverria ; Thomas RNCulture, Urine STAT 08:31 02/17/2021 08:57 Naresh(Urine, Clean Serge Echeverria ; Thomas RNCatch)DIAGNOSTIC STUDY ORDERSOrder Description Priority Entered Acknowledged InitialedToes Right STAT 08:31 02/17/2021 08:33 Naresh(Oxygen?(No)) Serge Echeverria ; Thomas RN Reason for Study: PainMEDICATION/IV/DRIP/FLUID ORDERSOrder Description Priority Entered Acknowledged InitialedGENERAL ORDERSOrder Description Priority Entered Acknowledged InitialedSplint (Aircast) R 10:13 02/17/2021 10:15 Serge Resendez ; manufacturing directorJulio Menditea ER Tech1[Electronically signed by Naresh Guzman RN (10:25 02/17/2021)][Electronically signed by Serge Echeverria (11:03 02/17/2021)][Electronically locked by Naresh Guzman RN (10:25 02/17/2021)] Name Value Range Interpretation Code Description Data Melanie rce(s) Supporting Document(s) ID Date Data Source [id number] 02/17/2021 07:58:00 AM EDT [facility] 1 Medication Reconciliation Report [facility] Emergency Department [address] [place] [address] Phone #: ext- [phone] 02/17/2021 07:54 Patient: [...] the Emergency Department: 2 Medication Reconciliation Report [facility] Emergency Department [address] [place] [address] Phone #: ext [phone] 02/17/2021 07:54 Patient: FABIANO RAMIREZ Sex: F : 1955 Age: 65yNone.The following Medications were prescribed to the patient:Bactrim DS 800 mg-160 mg tablet Take 1 tablet twice a day for 7 days -- Dispense 14 tablet. Refills: 0.Substitution permitted.Pharmacy - [phone] - [address] ; [place] [address]. . -- Serge Echeverria Name Value Range Interpretation Code Description Data [facility](s) Supporting Document(s) ID Date Data Source [id number] 02/17/2021 07:58:00 AM EDT [facility] 1 Medication Administration Record [facility] Emergency Department [address] [place] [address] Phone #: ext [phone] 02/17/2021 07:54 Patient: FABIANO RAMIREZ Sex: F : 1955 Age: 65yWeight: 67.8 kgHeight/Length: 59 inBMI: 30.2ALLERGIES: Darvacet, Demerol, MicrodentinDate/Time Medication Administered Medication Ordered Name Value Range Interpretation Code Description Data Melanie rce(s) Supporting Document(s) ID Date Data Source [id number] 02/17/2021 07:58:00 AM EDT [facility] 1 General Instructions [facility] Emergency Department [address] [place] [address] Phone #: ext- [phone] 02/17/2021 07:54 Patient: [...] Dispense 14 tablet. Refills: 0.Substitution permitted.Pharmacy - [facility] - [address] ; [place] [address]. .Follow-up:Follow up with your healthcare provider.Understanding of the discharge instructions verbalized by patient. 2 General Instructions [facility] Emergency Department [address] [place] [address] Phone #: ext- [phone] 02/17/2021 07:54 Patient: FABIANO RAMIREZ Sex: F [...] a bladder infection are: 3 General Instructions [facility] Emergency Department [address] [place] [address] Phone #: ext- [phone] 02/17/2021 07:54 Patient: [...] Fluid loss (dehydration) Constipation 4 General Instructions [facility] Emergency Department [address] [place] [address] Phone #: ext- [phone] 02/17/2021 07:54 Patient: [...] can irritate your bladder. 5 General Instructions [facility] Emergency Department [address] [place] [address] Phone #: ext- [phone] 02/17/2021 07:54 Patient: [...] if the results will affect your treatment.Call [phone] if any of the following occur: Trouble [...] in the outer vaginal area (labia) [employer]. [address] [place] [address]. All rights reserved. This information is not intended as asubstitute for professional medical care. Always follow your healthcare professional's instructions. 6 General Instructions [facility] Emergency Department [address] [place] [address] Phone #: ext- [phone] 02/17/2021 07:54 Patient: FABIANO RAMIREZ Sex: F : 1955 Age: 65yYou have been given the following additional information:Bladder Infection, Female (Adult)(Electronically signed by Serge Echeverria 02/17/2021 11:03) Name Value Range Interpretation Code Description Data Melanie rce(s) Supporting Document(s) ID Date Data Source [id number] 02/17/2021 07:58:00 AM EDT [facility] 1 Clinical Report - Nurses [facility] Emergency Department [address] [place] [address] Phone #: ext [phone] 02/17/2021 07:54 Patient: FABIANO RAMIREZ Sex: F : 1955 Age: 65yTRIAGEArrived by EMS. Historian: patient.Acuity: LEVEL 4.Chief Complaint: RIGHT LOWER EXTREMITY PAIN.No injury occurred. Onset. (2 weeks ago). ( Pt states she has had right lower extremity pain for about thepast 2 weeks, she was seen here more than a couple weeks ago and an air splint was applied, she went [facility] yesterday and was released, she reports continued pain and now feels nausea).Treatment INSTRUCTION LIBRARIAN:None.EMS Treatment INSTRUCTION LIBRARIAN:EMS treatment verbally communicated and report reviewed. See report.SEPSIS SCREEN: SIRS SCREEN NEGATIVE. SEPSIS SCREEN NEGATIVE. No suspected or confirmedsigns of infection present.ARRON COMA SCORE: 15- eyes open- spontaneous (4); [...] a day. 2 Clinical Report - Nurses [facility] Emergency Department [address] [place] [address] Phone #: ext- [phone] 02/17/2021 07:54 Patient: FABIANO RAMIREZ Sex: F : 1955 Age: 65y ZyPREXA Oral (Tablet 10 mg), at bedtime. --:02/17/21 Naresh Guzman RN. Allerg ielandy Peguero. Kristina. Aviva. --:59 02/17/21 Naresh Guzman RN. History PAST MEDICAL [...] assessment completed. No skin integrity risk identified. --08:02/17/21 Naresh Guzman RN. Interventions To treatment room. [...] Guzman RN. 3 Clinical Report - Nurses [facility] Emergency Department [address] [place] [address] Phone #: [phone] mel- [phone] 02/17/2021 07:54 Patient: FABIANO RAMIREZ Sex: F [...] Patient verbalized understanding. Written instructions provided in Georgian. The patient was discharged by the physician. She was discharged home. She left ambulatory and via taxi. --10:25 02/17/21 Naresh Guzman RN 10:24 0708/10. BP: 138/98. MAP: 111. HR: 98. RR: 18. O2 saturation: 100%. Pain level now: 10/28. --10:25 02/17/21 Naresh Guzman RN.Locked/Released at 02/17/2021 10:25 by Naresh uGzman RN Name Value Range Interpretation Code Description Data Melanie rce(s) Supporting Document(s) ID Date Data Source [id number] 02/17/2021 07:58:00 AM EDT [facility] 1 Clinical Report - Physicians/Mid Levels [facility] Emergency Department [address] [place] [address] Phone #: ext- [phone] 02/17/2021 07:54 Patient: FABIANO RAMIREZ Sex: F [...] No trauma. She states the ED at [facility] just wraps her toes, she thinks they wrapped it too tight. She wears a air cast and walks with a walker at home.). Patient denies an injury. Similar symptoms previously. Recent medical care: The patient was seen recently in the emergency department. ( Multiple times at [facility] for urinary complaints).REVIEW OF SYSTEMSNo chest [...] Normal inspection. 2 Clinical Report - Physicians/Mid [facility] Emergency Department [address] [place] [address] Phone #: ext- [phone] 02/17/2021 07:54 Patient: FABIANO RAMIREZ Sex: F [...] soft tissue neck done yesterday with urinalysis. Patienthas had multiple UA done over last several months at [facility]. Not currently on antibiotics 3 Clinical Report - Physicians/Mid Levels [facility] Emergency Department [address] [place] [address] Phone #: ext- [phone] 02/17/2021 07:54 Patient: FABIANO RAMIREZ Sex: F [...] tablet. Refills: 0. Substitution permitted. Pharmacy - [facility] - [address] ; [place] [address]. . 4 Clinical Report - Physicians/Mid Levels [facility] Emergency Department [address] [place] [address] Phone #: ext- [phone] 02/17/2021 07:54 Patient: LETTIERE, FABIANO Sex: F : 1955 Age: 65y Follow-up: Follow up with your healthcare provider. Understanding of the discharge instructions verbalized by patient.(Electronically signed by Serge Echeverria 02/17/2021 11:03) Name Value Range Interpretation Code Description Data Melanie rce(s) Supporting Document(s) ID Date Data Source [id number] 02/20/2021 07:22:00 AM EDT [facility] Name Value Range Interpretation Code Description Data Melanie rce(s) Supporting Document(s) CULTURE URINE [facility] _CULTURE URINE_$$[id number]$$[id number]$$596354$$060994$$159919$$902179$$601842$$591338$$507999$$ 270410$$220377$$327735$$986283$$633509$$325761$$961264$$973457$$620161$$433564$$ 012192$$834596$$494842$$599850$$790924$$267274$$801085$$934534 -- Continued on next page --Patient: CANDIDO MARIO Order: [id number] Page 2Culture: CULTURE URINE Status: Final ====$$[id number]$$[id number] DATE/TIME: 02/19/2021 08:06Culture: CULTURE URINE Status: FinalUrine Culture,Comprehensive: K6Rrcwn urogenital flora25,000-50,000 colony forming units per mLP1 Test performed by: [facility] Janel HURTADO #: [id number] [address] [place] [id number] [facility] [id number] Director : Ross Jeffers MD NPI #:Machine Operator 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 URINALYSIS SOURCE R [facility] COLOR yellow NORMAL: Yellow [facility] CLARITY hazy NORMAL: Clear [facility] Specific gravity of Urine by Test strip 1.015 1.001 - 1.030 [facility] pH 8 5 - 9 [facility] Glucose [Mass/volume] in Urine by Test strip NORM NORMAL: Negat [facility] Bilirubin.total [Presence] in Urine by Test strip NEG NORMAL: Negative [facility] Ketones [Presence] in Urine by Test strip NEG NORMAL: Negative [facility] Protein [Mass/volume] in Urine by Test strip NEG NORMAL: Negat [facility] Nitrite [Presence] in Urine by Test strip NEG NORMAL: Negative [facility] BLOOD 25 NORMAL: Negative [facility] LEUK EST 100 NORMAL: Negative [facility] Urobilinogen [Mass/volume] in Urine by Test strip NOR less deanna n 1.0 mg/dL [facility] MICROSCOPIC See Below [facility] ital WBC 10 - 15 NORMAL: NONE SEEN A [facility] Erythrocytes [#/volume] in Urine by Test strip 15 - 20 NORMAL: NON E SEEN A [facility] EPITHELIAL MODERATE NORMAL: NONE SEEN A [facility] Bacteria [Presence] in Urine sediment by Light microscopy 1+ SMALL NORMAL: NONE SEEN [facility] Amorphous sediment [Presence] in Urine sediment by Light yong roscopy 2+ NORMAL: NONE SEEN [facility] Crystals [type] in Urine sediment by Light microscopy See Below [facility] TRIPLE PHOS 3+ NORMAL: NONE SEEN A [facility] ID Date Data Source [id number] 12/10/2020 05:37:00 AM EDT [facility] 1 OrderSheet [facility] Emergency Department [address] [place], [place] [address] Phone #: ext- [phone] 12/10/2020 05:37 Patient: FABIANO RAMIREZ Sex: F : 1955 Age: 65yWEIGHT:68.0 kg (S) HEIGHT:59 inches (S) BMI:30.3ALLERGIES: Darvacet, Demerol, MicrodentinCHIEF COMPLAINT: dysuriaDIAGNOSIS: Urinary tract infectious diseaseLAB ORDERSOrder Description Priority Entered Acknowledged InitialedUrinalysis (Clean STAT 05:49 12/10/2020 05:49 Srinivasa Lerner) Roxanne Lerner R.N. RFreyaNFreya; Per protocol; Xavier Robertson PhysicianCulture, Urine STAT 06:58 12/10/2020 07:04 Yann,(Urine, Clean [...] rce(s) Supporting Document(s) ID Date Data Source [id number] 12/10/2020 05:37:00 AM EDT [facility] 1 Medication Reconciliation Report [facility] Emergency Department [address] [place] [address] Phone #: ext- [phone] 12/10/2020 05:37 Patient: [...] Emergency Department: 2 Medication Re conciliation Report [facility] Emergency Department [address] [place] [address] Phone #: ext- [phone] 12/10/2020 05:37 Patient: FABIANO RAMIREZ Sex: F : 1955 Age: 65yMacrobid [PO] PO 100 mg, administered: 07:11 12/10/2020The following Medications were prescribed to the patient:Macrobid 100 mg capsule Take 1 capsule twice a day for 7 days -- Dispense 14 capsule. Refills: 0.Substitution permitted.Pharmacy - [facility] - [address] ; [place] [id number]. . -- Physician Sergio Name Value Range Interpretation Code Description Data Melanie rce(s) Supporting Document(s) ID Date Data Source [id number] 12/10/2020 05:37:00 AM EDT [facility] 1 Medication Administration Record [facility] Emergency Department [address] [place] [address] Phone #: ubg- [phone] 12/10/2020 05:37 Patient: FABIANO RAMIREZ Sex: F : 1955 Age: 65yWeight: 68.0 kgHeight/Length: 59 inBMI: 30.3ALLERGIES: Darvacet, Demerol, Microdentin Date/Time Medication Administered Medication OrderedGiven MACROBID [PO] (NITROFURANTOIN Macrobid PO 100 mg (NOW)07:11 12/10/2020 MONOHYD MACRO)Roxanne Lerner R.N. Dose: 100 mg PO Name Value Range Interpretation Code Description Data Melanie rce(s) Supporting Document(s) ID Date Data Source [id number] 12/10/2020 05:37:00 AM EDT [facility] 1 General Instructions [facility] Emergency Department [address] [place] [address] Phone #: ext- [phone] 12/10/2020 05:37 Patient: [...] Dispense 14 capsule. Refills: 0.Substitution permitted.Pharmacy - [phone] - [address] ; [place] [address]. .Follow-up:Follow up with your healthcare provider in three days for staple removal. Call for an appointment. Summaryof care provided to patient via paper.Understanding of the discharge instructions verbalized. ADDITIONAL INFORMATIONBladder Infection, Female (Adult) 2 General Instructions [facility] Emergency Department [address] [place] [address] Phone #: ext- [phone] 12/10/2020 05:37 Patient: FABIANO RAMIREZ Sex: F [...] Urgent need to urinate 3 General Instructions [facility] Emergency Department [address] [place] [address] Phone #: ext- [phone] 12/10/2020 05:37 Patient: [...] a diaphragm for controlTreatment 4 General Instructions [facility] Emergency Department [address] [place] [address] Phone #: ext- [phone] 12/10/2020 05:37 Patient: [...] your healthcare provider.Follow-up care 5 General Instructions [facility] Emergency Department [address] [place] [address] Phone #: ext- [phone] 12/10/2020 05:37 [id number] Sex: F : 1955 Age: 65yCall your [...] swelling in the outer vaginal area (labia) [id number] [employer]. [address] [place] [address]. All rights reserved. This information is not intended as asubstitute for professional medical care. Always follow your healthcare professional's instructions. You have been given the following additional information: Bladder Infection, Female (Adult) 6 General Instructions [facility] Emergency Department [address] [place] [address] Phone #: ext- [phone] 12/10/2020 05:37 Patient: FABIANO RAMIREZ Sex: F : 1955 Age: 65y(Electronically signed by Xavier Robertson, Physician 12/10/2020 07:04) Name Value Range Interpretation Code Description Data Melanie rce(s) Supporting Document(s) ID Date Data Source [id number] 12/10/2020 05:37:00 AM EDT [facility] 1 Clinical Report - Nurses [facility] Emergency Department [address] [place] [address] Phone #: ext- [phone] 12/10/2020 05:37 Patient: [...] LEG PAIN.Alert. No acute distress.This started today.Treatment INSTRUCTION LIBRARIAN:None.SEPSIS SCREEN: SIRS SCREEN NEGATIVE. SEPSIS SCREEN NEGATIVE. [...] Noam Carney.AllergiesDarvacet.Demerol. 2 Clinical Report - Nurses [facility] Emergency Department [address] [place] [address] Phone #: ext- [phone] 12/10/2020 05:37 Patient: FABIANO RAMIREZ Sex: F : 1955 Age: 65y Microdentin. --05:41 12/10/20 Noam Carney. PROBLEMS: Spinal Tumor. Lower Extremity Pain. UTI - Urinary Tract Infection. --05:41 12/10/20 Naom Carney. History SOCIAL HX: Never smoker. No [...] significant family medical history. --06:21 12/10/20 Xavier Robetrson, Physician. Interventions Identification band on patient. To treatment room. --05:43 12/10/20 Noam Carney.PHYSICAL ASSESSMENTTo room via stretcher.GENERAL / NEURO / PSYCH: Alert. Oriented X 4. Appears in no acute distress.HEENT: Pupils equal, round and reactive to light. No facial asymmetry noted. Mucous membranes are 3 Clinical Report - Nurses [facility] Emergency Department [address] [place] [address] Phone #: ext- [phone] 12/10/2020 05:37 Patient: FABIANO RAMIREZ Sex: F [...] Patient verbalized understanding. Written instructions provided in Georgian. The patient was discharged home and accompanied [...] rce(s) Supporting Document(s) ID Date Data Source [id number] 12/10/2020 05:37:00 AM EDT [facility] 1 Clinical Report - Physicians/Mid Levels [facility] Emergency Department [address] [place] [address] Phone #: ext- [phone] 12/10/2020 05:37 Patient: FABIANO RAMIREZ Sex: F [...] surgery. 2 Clinical Report - Physicians/Mid Levels [facility] Emergency Department [address] [place] [address] Phone #: ext- [phone] 12/10/2020 05:37 Patient: [...] roomair. Temp: 98.1 F. Pain level now: 04/29. Have been reviewed as abnormal. Hypertensive. Heart [...] process. 3 Clinical Report - Physicians/Mid Levels [facility] Emergency Department [address] [place] [address] Phone #: ext- [phone] 12/10/2020 05:37 Patient: FABIANO RAMIREZ Sex: F [...] arise. 4 Clinical Report - Physicians/Mid Levels [facility] Emergency Department [address] [place] [address] Phone #: ext- [phone] 12/10/2020 05:37 Patient: FABIANO RAMIREZ Sex: F : 1955 Age: 65y Prescription Medications: Macrobid 100 mg capsule Take 1 capsule twice a day for 7 days -- Dispense 14 capsule. Refills: 0. Substitution permitted. Pharmacy - [facility] - [address] ; [place] [address]. . Follow-up: Follow up with your healthcare provider in three days for staple removal. Call for an appointment. Summary of care provided to patient via paper. Understanding of the discharge instructions verbalized.(Electronically signed by Xavier Robertson, Physician 12/10/2020 07:04) Name Value Range Interpretation Code Description Data Melanie rce(s) Supporting Document(s) ID Date Data Source [id number] 12/14/2020 09:42:00 AM EDT [facility] Name Value Range Interpretation Code Description Data Melanie rce(s) Supporting Document(s) CULTURE URINE [facility] _CULTURE URINE_$$[id number]$$214841$$658213$$572872$$403388$$263759$$622189$$121316$$846204$$ 654092$$264208$$448132$$892474$$444843$$314036$$775628$$178264$$879258$$492982$$ 031703$$819408$$924257$$058074$$394961$$803651$$733734$$793139 -- Continued on next page --Patient: CANDIDO MARIO Order: Page 2Culture: CULTURE URINE Status: Final ==== -- Continued on next page --Patient: CANDIDO MARIO Order: Page 2Culture: CULTURE URINE Status: Prelim =====$$[id number]$$[id number] DATE/TIME: 12/14/2020 09:06Culture: CULTURE URINE Status: FinalIsolate [...] on 12/13/2020 05:37 ET Escherichia coliUrine Culture,Comprehensive: J7Mgirtogigsv coli Flag: APatient: CANDIDO MARIO Order: [id number] Page 3Culture: CULTURE URINE Status: Final ISOLATE [...] S S . . . . . .14107-9Cakfuhwagz S S . . . . . .267-5Imipenem S S . . . . . .279-0Levofloxacin R R . . . . . .98010- 8Meropenem S S . . . . . .6652-2Nitrofurantoin S S . . . . . .363-2Piperacillin/Tazobactam S S . . . . . .412-7Tetracycline S S . . . . . .496-0Tobramycin S S . . . . . .508-2 Trimethoprim/Sulfa S S . . . . . .516-5P1 Test performed by: [facility] #: [id number] [address] [place] [address] [id number] [facility] [id number] Director : Ross Jeffers MD NPI #:Machine Operator Hop Picker : 12/13/20.1334.XMT.SENT REF 12/14/20.0942.XMT.SENT REF ID Date Data Source [id number] 12/10/2020 06:34:00 AM EDT [facility] Name Value Range Interpretation Code Description Data Melanie rce(s) Supporting Document(s) [facility]IS [facility] URINALYSIS SOURCE [facility] COLOR yellow NORMAL: Yellow [facility] CLARITY cloudy NORMAL: Clear [facility] Specific gravity of Urine by Test strip 1.015 1.001 - 1.030 [facility] pH 8 5 - [address] [facility] Glucose [Mass/volume] in Urine by Test strip NORM [facility]: [facility] Bilirubin.total [Presence] in Urine by Test strip NEG NORMAL: Negative [facility] Ketones [Presence] in Urine by Test strip NEG NORMAL: Negative [facility] Protein [Mass/volume] in Urine by Test strip NEG NORMAL: Negat [facility] Nitrite [Presence] in Urine by Test strip NEG NORMAL: Negative [facility] BLOOD 10 NORMAL: Negative [facility] Leukocyte esterase [Presence] in Urine by Test strip 500 KANE L: Negative A [facility] Urobilinogen [Mass/volume] in Urine by Test strip NOR less deanna n 1.0 mg/dL [facility] MICROSCOPIC See Below [facility] ital WBC 20 - 30 NORMAL: NONE SEEN A [facility] Erythrocytes [#/volume] in Urine by Test strip 3 - 5 NORMAL: NON E SEEN [facility] EPITHELIAL MODERATE NORMAL: NONE SEEN A [facility] Bacteria [Presence] in Urine sediment by Light microscopy 2+ MOD NORMAL: NONE SEEN A [facility] Amorphous sediment [Presence] in Urine sediment by Light yong roscopy 2+ NORMAL: NONE SEEN [facility] ID Date Data Source [id number] 12/06/2020 09:09:00 AM EDT [facility] [address] [place] [address] PHONE: [phone] FAX: [phone] Name .................. : CANDIDO MARIO Acct Number.................. : [id number] ROOM. ................. : [place]-05 Number ................... : [id number] Stay type ............. : E/R Discharge Date......... ... : 12/01/20 Admit Date ......... : 12/01/20 Admit Phys .................... : [facility] Date of ....... : 1955 Family Phys ................... : JENNY GARCIA Phone .................. : [phone] Age ................................ : 65 Film# .................. .:[id number] Sex ................................. : F Unsigned transcriptions are preliminary reports and do not represent a medical or legal document CT ST NECK W/O CONTRAST 64896 COMPLETE:12/01/20 15:07 RUFUS 17974 Reason(s): evaluate for foreign body as she [...] and further evaluation, Page 1 of 2 [place] [address] PHONE: [phone] FAX: [phone] Name .................. : CANDIDO MARIO Acct Number.................. : [id number] ROOM. ................. : [place] Number ................... : [id number] Stay type ............. : E/R Discharge Date......... ... : 12/01/20 Admit Date ......... : 12/01/20 Admit Phys .................... : CHANLIECCO Date of ....... : Family Phys ................... : JENNY NAN Phone .................. : [phone] Age ................................ : 65 Film# .................. .:[id number] Sex ................................. : F Unsigned transcriptions are preliminary reports and do not represent a medical or legal document CT ST NECK W/O CONTRAST 56515 COMPLETE:12/01/20 15:07 RUFUS [id number] Reason(s): evaluate for foreign body as she [...] rce(s) Supporting Document(s) ID Date Data Source [id number] 12/01/2020 12:20:00 PM EDT [facility] 1 OrderSheet [facility] Emergency Department [address] [place] [address] Phone #: ext- [phone] 12/01/2020 12:07 Patient: FABIANO RAMIREZ Sex: F : 1955 Age: 65yWEIGHT:71.9 kg (M) HEIGHT:59 inches (S) BMI:32.0ALLERGIES: Darvacet, Demerol, MicrodentinCHIEF COMPLAINT: sore throat, FB sensation in throatDIAGNOSIS: DysphagiaLAB ORDERSOrder Description Priority Entered Acknowledged InitialedDIAGNOSTIC STUDY ORDERSOrder Description Priority Entered Acknowledged InitialedCT Neck Soft STAT 13:26 12/01/2020 13:30 Mikaela Landis W/O Cont Karen Saucedo R.N.(Oxygen?(No)) ; Reason [...] rce(s) Supporting Document(s) ID Date Data Source [id number] 12/01/2020 12:20:00 PM EDT [facility] 1 Medication Reconciliation Report [facility] Emergency Department [address] [place] [address] Phone #: ext- [phone] 12/01/2020 12:07 Patient: [...] the Emergency Department: 2 Medication Reconciliation Report [facility] Emergency Department [address] [place] [address] Phone #: ext- [phone] 12/01/2020 12:07 Patient: FABIANO RAMIREZ Sex: F : 1955 Age: 65yGI Cocktail [PO] PO 50 mL, administered: 12:40 12/01/2020tivan [IM] IM 1 mg, administered: 14:25 12/01/2020The following Medications were prescribed to the patient:None. Name Value Range Interpretation Code Description Data Melanie rce(s) Supporting Document(s) ID Date Data Source [id number] 12/01/2020 12:20:00 PM EDT [place] [address] Medication Administration Record [facility] Emergency Department [address] [place] [address] Phone #: ext- [phone] 12/01/2020 12:07 Patient: FABIANO RAMIREZ Sex: F : 1955 Age: 65yWeight: 71.9 kgHeight/Length: 59 inBMI: 32ALLERGIES: Darvacet, Demerol, Microdentin Date/Time Medication Administered Medication OrderedGiven GI COCKTAIL [PO] (CALCIUM GI Cocktail PO 50 mL with12:40 12/01/2020 CARBONATE ANTACID) Lidocaine Viscous Mouth/ThroatGrMyles novak R.N. Dose: 50 mL Oral Suspension PO 10 mL, Maalox Oral 30 mL, Oral 10 mLGiven ATIVAN [IM] (LORAZEPAM) Ativan IM 1 mg (HIGH ALERT14:25 12/01/2020 Dose: 1 mg IM MEDICATION, NOW)Myles Landis R.N. Name Value Range Interpretation Code Description Data Melanie rce(s) Supporting Document(s) ID Date Data Source [id number] 12/01/2020 12:20:00 PM EDT [facility] 1 General Instructions [facility] Emergency Department [address] [place] [address] Phone #: ext- [phone] 12/01/2020 12:07 Patient: [...] an ear, nose and throat physician (an social media marketing analyst)and a analyzer sales in three days. Reason for referral: evaluation. Summary of care provided to patientvia paper. ADDITIONAL INFORMATIONDysphagia (Adult) 2 General Instructions [facility] Emergency Department [address] [place] [address] Phone #: ext- [phone] 12/01/2020 12:07 Patient: [...] evaluate you using X-ray, 3 General Instructions [facility] Emergency Department [address] [place] [address] Phone #: ext- [phone] 12/01/2020 12:07 Patient: [...] for any of the followin General Instructions [facility] Emergency Department [address] [place] [address] Phone #: [phone]- [phone] 12/01/2020 12:07 Patient: FABIANO RAMIREZ Sex: F : 1955 Age: 65y Inability to keep down food or liquid Symptoms that get worse quickly Coughing that won't stop Continuing to lose weight Fever of 100.4F (38C) or higher, or as directed by your healthcare provider Other symptoms as indicated by your healthcare providerCall [id number] for any of the following: Trouble breathing Inability to talk Drooling, inability to control secretions Loss of consciousness [phone] [employer]. [address] [place] [address], [place] [address]. All rights reserved. This information is not intended as asubstitute for professional medical care. Always follow your healthcare professional's instructions. You have been given the following additional information: Dysphagia (Adult)(Electronically signed by Karen Saucedo 12/01/2020 19:10) Name Value Range Interpretation Code Description Data Melanie rce(s) Supporting Document(s) ID Date Data Source [id number] 12/01/2020 12:20:00 PM EDT [facility] 1 Clinical Report - Nurses [facility] Emergency Department [address] [place] [address] Phone #: [phone]- [phone] 12/01/2020 12:07 Patient: FABIANO RAMIREZ Sex: F : 1955 Age: 65yTRIAGEArrived by EMS. Historian: EMS and patient.Acuity: LEVEL 4.Chief Complaint: SORE THROAT.This started yesterday. ( Per EMS, they state pt got a piece of chicken caught in her throat yesterday andwent to [facility] to have it extracted which she did but now per EMS, they state pt is still c/o a sore throat).EMS Treatment INSTRUCTION LIBRARIAN:EMS treatment verbally communicated and report reviewed. See report.SEPSIS SCREEN: SIRS SCREEN NEGATIVE: heart rate greater than 90. SEPSIS SCREEN NEGATIVE.No suspected or confirmed signs of infection present.ARRON COMA SCORE: 15- eyes open- spontaneous (4); best verbal response- oriented (5); bestmotor response- obeys commands (6). --12:26 12/01/20 Naresh Guzman RN12:20 12/01/20. BP: 137/77. MAP: 97. HR: 99. RR: 20. O2 saturation: 97% on room air. Temp: 98.3 F(oral). Pain level now: 01/27. --12:26 12/01/20 Naresh Guzman RN.Weight: 71.9 kg measured. Height/Length: 59 inches Per Patient. BMI: 32. --12:20 12/01/20 Naresh Guzman RN.MedicationsAlbuterol Sulfate Inhalation 2 unit [...] Guzman RN.AllergiesDarvacet. 2 Clinical Report - Nurses [facility] Emergency Department [address] [place] [address] Phone #: ext- [phone] 12/01/2020 12:07 Patient: [...] ent completed. No skin integrity risk identified. --12:12/01/20 Naresh Guzman RN. Interventions To treatment room. --12:12/01/20 Naresh Guzman RN.PHYSICAL ASSESSMENTGENERAL / NEURO / [...] in lowest 3 Clinical Report - Nurses [facility] Emergency Department [address] [place] [address] Phone #: ext- [phone] 12/01/2020 12:07 [id number] Sex: F : 1955 Age: 65y position. Brakes of bed on. Patient ready for evaluation- ED physician and PA notified. --12:12/01/20 Naresh Guzman RN 12:40 12/01/2020 GI Cocktail [...] Patient verbalized understanding. Written instructions provided in Georgian. The patient was discharged by the physician. She was discharged home. She left ambulatory. Director Of Advertising Sales driving. --16:49 12/01/20 Myles Landis R.N. 16:48 12/01/20. BP: 142/86. MAP: 104. HR: 74. RR: 18. O2 saturation: 97%. Temp: deferred. Pain level now: 08/30. --16:49 12/01/20 Myles Landis R.N. Departure time: 16:50 12/01/2020. --16:50 12/01/20 Myles Landis R.N.Locked/Released at 12/01/2020 16:50 by Myles Landis R.N. Name Value Range Interpretation Code Description Data Melanie rce(s) Supporting Document(s) ID Date Data Source [id number] 12/01/2020 12:20:00 PM EDT [facility] 1 Clinical Report - Physicians/Mid Levels [facility] Emergency Department [address] [place] [address] Phone #: ext- [phone] 12/01/2020 12:07 Patient: FABIANO RAMIREZ Sex: F : 1955 Age: 65y Time Seen: 12:28 12/01/2020; initial patient contact, initial documentation. Arrived- By ambulance. Historian- patient. Disposition decision: 16:27 12/01/2020.HISTORY OF PRESENT ILLNESS Chief Complaint: SORE THROAT. FOREIGN BODY SENSATION IN THROAT. This started yesterday and is still present (persistent 1 day INSTRUCTION LIBRARIAN). It was abrupt in onset and has [...] pain on swallowing. she was seen at [facility] where they did an xray [...] Additional Surgeries: 2 Clinical Report - Physicians/Mid [facility] Emergency Department [address] [place] [address] Phone #: ext- [phone] 12/01/2020 12:07 Patient: [...] room air.Temp: 98.3 F. Pain level now: 7/10. Have been reviewed. Oxygen saturation normal.Appearance: Alert. [...] X 3. 3 Clinical Report - Physicians/Mid [facility] Emergency Department [address] [place] [address] Phone #: ext- [phone] 12/01/2020 12:07 Patient: FABIANO RAMIREZ Sex: F [...] day. 4 Clinical Report - Physicians/Mid Levels [facility] Emergency Department [address] [place] [address] Phone #: ext- [phone] 12/01/2020 12:07 Patient: FABIANO RAMIREZ Sex: F : 1955 Age: 65y Meclizine [...] an ear, nose and throat physician (an social media marketing analyst) and a analyzer sales in three days. Reason for referral: evaluation. Summary of care provided to patient via paper.(Electronically signed by Karen Saucedo 12/01/2020 19:10) Name Value Range Interpretation Code Description Data Melanie rce(s) Supporting Document(s) ID Date Data Source [id number] 11/04/2020 09:59:00 PM EDT [facility]) Name Value Range Interpretation Code Description Data Melanie rce(s) Supporting Document(s) Appearance, Urine RFX Laboratory test result [facility] ([facility]) PH,Urine RFX 7.0 units 5.0-9.0 [facility] ([facility]) Color, Urine RFX Laboratory test result [facility] ([facility]) Glucose, Urine (Ua) Auto RFX Laboratory test result [facility] ([facility]) Specific Harrah Ur Auto RFX 1.013 1.002-1.035 [facility] ([facility]) Protein, Urine Auto RFX Laboratory test result [facility] ([facility]) Ketone, Urine Auto RFX Laboratory test result [facility] ([facility]) Urobilinogen, Urine Auto RFX 0.2 mg/dL 0.0-2.0 [facility] ([facility]) Bilirubin, Urine Auto RFX Laboratory test result [facility] ([facility]) Nitrite, Urine Auto RFX Laboratory test result [facility] ([facility]) Blood, Urine Blood RFX Laboratory test result [facility] ([facility]) Leukocyte Esterase Ur Auto RFX Laboratory test result [facility] ([facility]) RBC, Urine Auto RFX 2 /HPF 0-3 [facility] ([facility]) WBC, Urine Auto RFX 12 /HPF 0-3 [facility] ([facility]) Squam Epithelial Cell Ur Aurfx 1 /HPF 0-6 [facility] ([facility]) Mucus, Urine RFX Laboratory test result [facility] ([facility]) Bacteria, Urine Auto RFX Laboratory test result [facility] ([facility]) Hyaline Cast, Urine Auto RFX 1 /LPF 0-1 M [facility] ([facility]) ID Date Data Source [id number] 11/04/2020 09:59:00 PM EDT [facility]) Name Value Range Interpretation Code Description Data Melanie rce(s) Supporting Document(s) Reflex Urine Culture Laboratory test result [facility] ([facility]) <content>FULL REPORT IN LAB NOTES [...] 1 S</content>
<content></content> ID Date Data Source [id number] 10/29/2020 11:06:00 AM EDT [facility] ([facility]) Name Value Range Interpretation Code Description Data Melanie rce(s) Supporting Document(s) Reflex Urine Culture Laboratory test result [facility] ([facility]) <content>FULL REPORT IN LAB NOTES (eCW a [...] 2 S</content>
<content></content> ID Date Data Source [id number] 10/29/2020 11:06:00 AM EDT [facility] ([facility]) Name Value Range Interpretation Code Description Data Melanie rce(s) Supporting Document(s) Appearance, Urine RFX Laboratory test result [facility] ([facility]) PH,Urine RFX 7.0 units 5.0-9.0 [facility] ([facility]) Color, Urine RFX Laboratory test result [facility] ([facility]) Specific Harrah Ur Auto RFX 1.012 1.002-1.035 [facility] ([facility]) Protein, Urine Auto RFX Laboratory test result [facility] ([facility]) Glucose, Urine (Ua) Auto RFX Laboratory test result [facility] ([facility]) Urobilinogen, Urine Auto RFX 0.2 mg/dL 0.0-2.0 [facility] ([facility]) Ketone, Urine Auto RFX Laboratory test result [facility] ([facility]) Bilirubin, Urine Auto RFX Laboratory test result [facility] ([facility]) Nitrite, Urine Auto RFX Laboratory test result [facility] ([facility]) Leukocyte Esterase Ur Auto RFX Laboratory test result [facility] ([facility]) WBC, Urine Auto RFX 29 /HPF 0-3 [facility] ([facility]) Blood, Urine Blood RFX Laboratory test result [facility] ([facility]) RBC, Urine Auto RFX 12 /HPF 0-3 [facility] ([facility]) Squam Epithelial Cell Ur Aurfx 1 /HPF 0-6 [facility] ([facility]) Bacteria, Urine Auto RFX Laboratory test result [facility] ([facility]) Hyaline Cast, Urine Auto RFX 1 /LPF 0-1 M [facility] ([facility]) Mucus, Urine RFX Laboratory test result [facility] ([facility]) Amorphous Sediment RFX Laboratory test result [facility] ([facility]) ID Date Data Source [id number] 10/29/2020 10:47:00 AM EDT [facility] Name Value Range Interpretation Code Description Data Melanie rce(s) Supporting Document(s) SARS COVID ANTIGEN NEGATIVE [facility] This lab was ordered by PEYTON vargas nd reported by [facility]. ID Date Data Source [id number] 10/29/2020 10:47:00 AM EDT [facility] ([facility]) Name Value Range Interpretation Code Description Data Melanie rce(s) Supporting Document(s) Laboratory test finding (navigational concept) Laboratory test result [facility] ([facility]) The Tory SARS Antigen ALISTAIR does not diff erentiate between SARS-CoV and SARS-CoV-2. Negative results do not rule out COVID-19 and should not be used as the sole basis for treatment. Negative results should be considered in the context of a patient's recent exposure, history and the presence of clinical signs and symptoms consistent with COVID-19. ID Date Data Source [id number] 10/19/2020 08:54:00 [place] [address] PHONE: [phone] FAX: [phone] Name .................. : YUNIGavin MARIO Acct Number.................. : [id number] ROOM. ................. : TR-04 MR Number ................... : [id number] Stay type ............. : E/R Discharge Date......... ... : 10/14/20 Admit Date ......... : 10/13/20 Admit Phys .................... : VIJAYA Date of ....... : 1955 Family Phys ................... : JENNY NAN Phone . ................. : [phone] Age ................................ : 65 Film# .................. .:[id number] Sex ................................. : F Unsigned transcriptions are preliminary reports and do not represent a medical or legal document CHEST PORTABLE [id number] COMPLETE:10/14/20 00:54 [facility] 7229 Reason(s): cough hemoptysis [...] By Blane Pfeiffer MD , 10/19/20 08:55, J Transcribe Initials: SHANNAN , Transcribe Date: 10/14/20 13:06, Dictation Date: Copy for: [address] [place] [address] DISCHARGED Page 1 of 1 Name Value Range Interpretation Code Description Data Melanie rce(s) Supporting Document(s) ID Date Data Source [id number] 10/16/2020 09:15:00 [place] [address] RESPIRATORY CARE REPORT ==== ---------NAME------- NUMBER SEX AGE ADMIT DISC. XRAY# F/C KELSEY MARIO [id number] F 65 10/13/20 10/14/20 [id number] E/R DATE OF : 1955 M/R# [id number] #: [id number] TR-04 LOCATION: EKG 61058 COMPLETE:10/14/20 0 0:29 T 18606 PHYSICIAN: VIJAYA Name Value Range Interpretation Code Description Data Melanie rce(s) Supporting Document(s) ID Date Data Source [id number] 10/13/2020 11:01:00 PM EDT [facility] 1 OrderSheet [facility] Emergency Department [address] [place] [address] Phone #: ext- [phone] 10/13/2020 23:01 Patient: FABIANO RAMIREZ Sex: F : 1955 Age: 65yWEIGHT:91.6 kg (M) HEIGHT:62 inches (S) BMI:37.0ALLERGIES: Darvacet, Demerol, MicrodentinDIAGNOSIS: Urinary tract infectious disease, CoughLAB ORDERSOrder Description Priority Entered Acknowledged InitialedBlood Culture STAT 23:47 10/13/2020 00:03 10/14/2020q10m X2 (Sched Karen Saucedo Gregory23:47 10/13/2020) ;Blood Culture STAT 23:47 10/13/2020 00:03 10/14/2020q10m X2 (Sched Karen Saucedo Gregory23:57 10/13/2020) ;CBC w Diff STAT 23:47 10/13/2020 23:59 Vijaya Carney Victoria Gregory ;CMP STAT 23:47 10/13/2020 23:59 Vijaya Carney Victoria Gregory ;Culture, Urine STAT 23:47 10/13/2020 00:19 10/14/2020(Urine, [facility]) ;Lactic Acid STAT 23:47 10/13/2020 23:59 Vijaya Carney Victoria Gregory ;PT/INR STAT 23:47 10/13/2020 00:00 10/14/2020 Karen Saucedo Gregory ;PT/PTT STAT 23:47 10/13/2020 Initialed: 00:00 10/14/2020 Noam Carney Victoria Cancelled: Duplicate Order 00:05 ; 10/14/2020 Marybeth Saucedon-T STAT 23:47 10/13/2020 00:00 10/14/2020 Karen Saucedo Gregory ;Urinalysis (Clean STAT 23:47 10/13/2020 00:18 10/14/2020atch) Karen Saucedo Virginia ;Venous Blood Gas STAT 23:47 10/13/2020 Initialed: 23:50 Karen Saucedo Victoria Cancelled: Wrong Order 23:50 ; Karen Saucedo 2 OrderSheet [facility] Emergency Department [address] [place] [address] Phone #: ext- [phone] 10/13/2020 23:01 [id number] Sex[facility] F : 1955 Age: 65yCRP STAT [...] 01:50 10/14/2020 01:53 Vijaya Lerner Victoria Laura RFreyaNFreya ;DIAGNOSTIC STUDY ORDERSOrder Description Priority Entered Acknowledged InitialedChest Portable 1 STAT 23:47 10/13/2020 00:44 10/14/2020View (Oxygen? Karen Saucedo Gregory(Yes)) ; Reason for Study: ciugh hemoptysisCT CTA CHEST STAT 01:50 10/14/2020 Ack'd: 01:53 02:35 Yann,(NONCOR) W CON Karen Saucedo Laura Laura R.NFreyaINC PP ; R.N.(Oxygen?(No))(IV?(Yes)) Reason for Study: hemoptysisMEDICATION/IV/DRIP/FLUID ORDERSOrder Description Priority Entered Acknowledged InitialedRocephin 01:49 10/14/2020 01:56 Angelika,(1gm/50mL) IVPB Karen Saucedo1000 mg with ;Dextrose 50 mlspike bag (D5W)GENERAL ORDERSOrder Description Priority Entered Acknowledged InitialedAccucheck 23:47 10/13/2020 23:59 Angelika, 3 OrderSheet [facility] Emergency Department [address] [place] [address] Phone #: ext- [phone] 10/13/2020 23:01 [facility]: [id number] Sex: F : 1955 Age: 65y Karen [...] rce(s) Supporting Document(s) ID Date Data Source [id number] 10/13/2020 11:01:00 PM EDT [facility] 1 Medication Reconciliation Report [facility] Emergency Department [address] [place] [address] Phone #: ext- [phone] 10/13/2020 23:01 Patient: [...] Home Medication information:patient 2 Medication Reconciliation Report [facility] Emergency Department [address] [place] [address] Phone #: ext- [phone] 10/13/2020 23:01 Patient: [...] Dispense 14 tablet. Refills: 0.Substitution permitted.Pharmacy - [phone] - [address] ; [place] [address]. . -- Karen Saucedo Name Value Range Interpretation Code Description Data Melanie rce(s) Supporting Document(s) ID Date Data Source [id number] 10/13/2020 11:01:00 PM EDT [place] [address] Medication Administration Record [facility] Emergency Department [address] [place] [address] Phone #: ext- [phone] 10/13/2020 23:01 Patient: FABIANO RAMIREZ Sex: F : 1955 Age: 65yWeight: 91.6 kgHeight/Length: 62 inBMI: 37ALLERGIES: Darvacet, Demerol, Microdentin Date/Time Medication Administered Medication OrderedStart ROCEPHIN (1GM/50ML) [IVPB] Rocephin (1gm/50mL) IVPB 862481:[id number] 10/14/2020 (CEFTRIAXONE SODIUM) mg with Dextrose 50 ml spike Noam Ramesh, Dose: 1 gm IVPB (D5W)---- Rate: 100 mL/hr over 30 minute(s)Stop Dispensed: 50 mL bag02:58 10/14/2020 Site: #1 left Noam Estrada, Name Value Range Interpretation Code Description Data Melanie rce(s) Supporting Document(s) ID Date Data Source [id number] 10/13/2020 11:01:00 PM EDT [facility] 1 General Instructions [facility] Emergency Department [address] [place] [address] Phone #: ext- [phone] 10/13/2020 23:01 Patient: [...] Dispense 14 tablet. Refills: 0.Substitution permitted.Pharmacy - [phone] - [address] ; [place] [address]. .Follow-up:Follow up with your healthcare provider Friday if not better. Reason for referral: evaluation. Summary ofcare provided to patient via paper. ADDITIONAL INFORMATION 2 General Instructions [facility] Emergency Department [address] [place] [address] Phone #: ext- [phone] 10/13/2020 23:01 Patient: [...] prescribed for this condition. 3 General Instructions [facility] Emergency Department [address] [place] [address] Phone #: ext- [phone] 10/13/2020 23:01 Patient: [...] loosen secretions in the nose and lungs. Rdrj-xdp-pbhacuw cold medicines will not shorten the length of time you're sick, but they may be helpful for the following symptoms: cough, sore throat, and nasal and sinus congestion. If you take prescription medicines, ask your healthcare provider or pharmacist which qqfe-mts-oepjsmi medicines are safe to use. (Note: Don't [...] wheezing, or difficulty breathing 4 General Instructions [facility] Emergency Department [address] [place] [address] Phone #: ext- [phone] 10/13/2020 23:01 Patient: FABIANO RAMIREZ Sex: F : 1955 Age: 65y Coughing up blood Very severe pain with swallowing, especially if it goes along with a muffled voice [employer]. [address] [place] [address], [place] [address]. All rights reserved. This information is not [...] of cystitis isan infection. 5 General Instructions [facility] Emergency Department [address] [place] [address] Phone #: fvf- [phone] 10/13/2020 23:01 Patient: FABIANO RAMIREZ Sex: F [...] put in Older age 6 General Instructions [facility] Emergency Department [address] [place] [address] Phone #: ext- [phone] 10/13/2020 23:01 Patient: FABIANO RAMIREZ Sex: F [...] and vegetables, and fiber. 7 General Instructions [facility] Emergency Department [address] [place] [address] Phone #: ext- [phone] 10/13/2020 23:01 Patient: [...] if the results will affect your treatment.Call [phone] if any of the following occur: Trouble [...] outer vaginal area (labia) 8 General Instructions [facility] Emergency Department [address] [place] [address] Phone #: ext- [phone] 10/13/2020 23:01 Patient: FABIANO RAMIREZ Sex: F : 1955 Age: 65y [address] [employer]. [address] [place] [address], [place] [address]. All rights reserved. This information is not intended as asubstitute for professional medical care. Always follow your healthcare professional's instructions. You have been given the following additional information: URI, Viral, No Abx (Adult) Bladder Infection, Female (Adult)(Electronically signed by Karen Saucedo 10/15/2020 07:57) Name Value Range Interpretation Code Description Data Melanie rce(s) Supporting Document(s) ID Date Data Source [id number] 10/13/2020 11:01:00 PM EDT [facility] 1 Clinical Report - Nurses [facility] Emergency Department [address] [place] [address] Phone #: ext- [phone] 10/13/2020 23:01 Patient: [...] No acute distress.Onset. 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 2 Clinical Report - Nurses [facility] Emergency Department [address] [place] [address] Phone #: ext- [phone] 10/13/2020 23:01 Patient: [...] pre- and 3 Clinical Report - Nurses [facility] Emergency Department [address] [place] [address] Phone #: ext- [phone] 10/13/2020 23:01 Patient: FABIANO RAMIREZ Sex: F : 1955 Age: 65y post-medication administration. Information reviewed with patient including reason for taking this medication, signs of allergic reaction and precautions. Verbalizes understanding. --01:56 10/14/20 Noam Carney Patient returned from CT by wheelchair with mask and radiology scheduler. --02:36 10/14/20 Roxanne Lerner R.NFreya 02:37 10/14/20. BP: 127/77. MAP: 93. HR: 82. RR: 18. O2 saturation: 94% on room air. --02:39 10/14/20 Roxanne Lerner RFreyaNFryea The patient is calm and resting quietly. [...] Patient verbalized understanding. Written instructions provided in Georgian. No treatment instructions. The patient was discharged by the physician. She was discharged home. She left ambulatory and via taxi. 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 --04:24 10/14/20 Noam Carney.Locked/Released at 10/14/2020 04:25 by Noam Carney Name Value Range Interpretation Code Description Data Melanie rce(s) Supporting Document(s) ID Date Data Source [id number] 10/13/2020 11:01:00 PM EDT [facility] 1 Clinical Report - Physicians/Mid Levels [facility] Emergency Department [address] [place] [address] Phone #: ext- [phone] 10/13/2020 23:01 Patient: [...] surgery. 2 Clinical Report - Physicians/Mid Levels [facility] Emergency Department [address] [place] [address] Phone #: ext- [phone] 10/13/2020 23:01 Patient: FABIANO RAMIREZ Sex: F [...] Interpretation 3 Clinical Report - Physicians/Mid Levels [facility] Emergency Department [address] [place] [address] Phone #: ext- [phone] 10/13/2020 23:01 Patient: FABIANO RAMIREZ Sex: F [...] CTA CHEST NON-CORONARY W CON INC PP [facility] [address] [place] [address] ---------NAME--------- NUMBER SEX AGE ADMIT DISC. XRAY# F/C TYPE CANDIDO MARIO [id number] F 65 10/13/20 [id number] E/R DATE OF : 1955 M/R# [id number] #: [id number] TR-04 LOCATION: TRANSCRIBED: 10/14/20 3:[address] CTA CHEST NON-CORONARY W [id number] COMPLETED:10/14/20 2:52 [facility] 7231 Reason(s): hemoptysis -- PHYSICIAN: VIJAYA -- -- R A D I O L O G Y R E P O R T -- PATIENT HISTORY: hemopstysis. isovue 370 75 ml [id number] exp 09/12. estimated dose 394.5. actual dose 395.6 mGy*cm. Time Out performed. Correct patient with 2 identifiers, type and amount of contrast used, correct body part and side all verified prior to examination. / COR SLAB MIP (DICOM Hx) EXAM: CTA Chest with Intravenous Contrast for PE evaluation -- CLINICAL HISTORY:hemopstysis. isovue 370 75 ml [id number] exp 09/12. estimated dose 394.5. actual dose [...] thoracic aorta. 4 Clinical Report - Physicians/Mid Levels [facility] Emergency Department [address] [place] [address] Phone #: ext- [phone] 10/13/2020 23:01 Patient: [...] 03:51Venous Blood Gas: (OLE: 10/14/2020 00:01) ( [facility] 10/14/2020 00:22) Final results Test Result Flag [...] 85.0)CBC w Diff: (OLE: 10/14/2020 00:01) ( [facility] 10/14/2020 00:10) Final results Test Result Flag [...] 7.0) 5 Clinical Report - Physicians/Mid Levels [facility] Emergency Department [address] [place] [address] Phone #: ext- [phone] 10/13/2020 23:01 Patient: FABIANO RAMIREZ Sex: F [...] Male GFR Interprentation 20-49 yrs >60 mL/min Zbcgzz14-66 yrs >56 mL/min Normal 60-69 yrs >49 mL/min Normal 70-79yrs>42 mL/min Normal 80 and above >35 mL/min Normal Female GFRInterpretation 20-39 yrs >60 mL/min Normal 40-49 yrs >58 mL/minNormal 50-59 yrs >51 mL/min Normal 60-69 yrs >45 mL/min Iasvjh98-79 yrs >39 mL/min Normal 80 and above [...] VenousThrombosis, Pulmonary Embolus, Tissue heart valves, Acute MS, Atrial Fibrillation, Valvular heartdisease and recurrent Systemic Embolism. - International Normalized Ratio (INR): 2.5 - 3.5 6 Clinical Report - Physicians/Mid Levels [facility] Emergency Department [address] [place] [address] Phone #: ext- [phone] 10/13/2020 23:01 Patient: [...] NONEVenous Blood Gas: (OLE: 10/13/2020 23:47) ( [facility] 10/13/2020 23:50) CanceledCRP: (OLE: 10/14/2020 00:01) ( [facility] 10/14/2020 00:40) Final results Test Result Flag Units (Reference) CRP-HS 11.76 H MG/L (1.00 - 3.00) CDC/S HS-CRP CUT-OFF: RELATIVE RISK: <1.0 mg/LLow 1.0 - 3.0 mg/L Average >3.0 mg/LHigh Optimally, the average of HS-CRP results repeated two weeks apart should be used forrisk assessment.ABG: (OLE: 10/13/2020 23:47) ( [facility] 10/14/2020 00:02) CanceledMagnesium: (OLE: 10/14/2020 00:01) ( [facility] 10/14/2020 00:40) Final results Test Result Flag Units (Reference) MAGNESIUM 2.2 MG/DL (1.7 - 2.2)Chest Portable 1 View: (OLE: 10/13/2020 23:47) ( [facility] 10/14/2020 00:54) In ProgressCHEST PORTABLE 7 Clinical Report - Physicians/Mid Levels [facility] Emergency Department [address] [place] [address] Phone #: ext- [phone] 10/13/2020 23:01 [id number] Sex: F : 1955 Age: 65y Reason(s): [...] Oral. 8 Clinical Report - Physicians/Mid Levels [facility] Emergency Department [address] [place] [address] Phone #: ext- [phone] 10/13/2020 23:01 Patient: FABIANO RAMIREZ Sex: F [...] tablet. Refills: 0. Substitution permitted. Pharmacy - [phone] - [address] ; [place] [address]. . Follow-up: Follow up with your healthcare provider Friday if not better. Reason for referral: evaluation. Summary of care provided to patient via paper.(Electronically signed by Karen Saucedo 10/15/2020 07:57) Name Value Range Interpretation Code Description Data Melanie rce(s) Supporting Document(s) ID Date Data Source [id number] 10/14/2020 03:51:00 AM EDT [address] [address] ---------NAME--------- NUMBER SEX AGE ADMIT DISC. XRAY# F/C TYPE CANDIDO MARIO [id number] F 65 10/13/20 [id number] E/R DATE OF : 1955 M/R# [id number] #: [id number] TR-04 LOCATION: TRANSCRIBED: 10/14/20 3:[address]A CHEST NON-CORONARY W [id number] COMPLETED:10/14/20 2:52 [facility] 7231 Reason(s): hemoptysis PHYSICIAN: VIJAYA R A D I O L O G Y R E P O R T PATIENT HISTORY:hemopstysis. isovue 370 75 ml [id number] exp 09/12. estimated dose 394.5. actualdose 395.6 mGy*cm.Time Out performed. Correct patient with 2 identifiers, type and amount ofcontrast used, correct body part and side all verified prior to examination. /COR SLAB MIP (DICOM Hx)EXAM: CTA Chest with Intravenous Contrast for PE evaluationCLINICAL HISTORY:hemopstysis. isovue 370 75 ml [id number] exp 09/12. estimated fwcs703.5. actual dose 395.6 mGy*cm. Time Out performed. [...] rce(s) Supporting Document(s) ID Date Data Source [id number] 10/21/2020 06:30:00 AM EDT [facility] Name Value Range Interpretation Code Description Data Melanie rce(s) Supporting Document(s) CULTURE BLOOD [facility] _CULTURE BLOOD_ TEST PERFORM ED AT [address] [address] CLIA# [id number] SEE SCANNED REPORT{ PRELIM ID Date Data Source [id number] 10/14/2020 12:35:00 AM EDT [facility] ([facility]) Name Value Range Interpretation Code Description Data Melanie rce(s) Supporting Document(s) Culture Blood Laboratory test result [facility] ([facility]) _CULTURE BLOOD_ TEST PERFORMED AT [address] [address] CLIA# [id number] SEE SCANNED REPORT { PRELIM ID Date Data Source [id number] 10/19/2020 11:49:00 AM EDT [facility] [address] Name Value Range Interpretation Code Description Data Melanie rce(s) Supporting Document(s) Bacteria identified in Blood by Culture [facility] NO GROWTH AFTER 5 DAYS ID Date Data Source [id number] 10/21/2020 06:29:00 AM EDT [facility] Name Value Range Interpretation Code Description Data Melanie rce(s) Supporting Document(s) CULTURE BLOOD [facility] _CULTURE BLOOD_ TEST PERFORM ED AT [address] [address] CLIA# [id number] SEE SCANNED REPORT{ PRELIM ID Date Data Source [id number] 10/14/2020 12:04:00 AM EDT [facility] ([facility]) Name Value Range Interpretation Code Description Data Melanie rce(s) Supporting Document(s) Culture Blood Laboratory test result [facility] ([facility]) _CULTURE BLOOD_ TEST PERFORMED AT [address] [address] CLIA# [id number] SEE SCANNED REPORT { PRELIM ID Date Data Source [id number] 10/14/2020 12:01:00 AM EDT [facility]) Name Value Range Interpretation Code Description Data Melanie rce(s) Supporting Document(s) C reactive protein [Mass/volume] in Serum or Plasma by High sensitivity method 11.76 mg/L 1.00-3.00 [facility] ([facility] ) <content>CDC/S HS-CRP CUT-OFF: RELATIVE RISK:</content>
<content><1.0 mg/L Low</content>
<content>1.0 - 3.0 mg/L Average</laron nt>
<content>>3.0 mg/L High</content>
<content>Optimally, the average of HS-CRP results repeated</content>
<content>two weeks apart should be used for risk assessment.</content>
<content></content> Magnesium Serum 2.2 mg/dL 1.7-2.2 [facility] ([facility]) Natriuretic peptide.B prohormone N-Terminal [Mass/volu me] in Serum or Plasma 20 pg/mL 0-125 [facility] ([facility] ) Fibrin D-dimer [Presence] in Platelet poor plasma 0.32 ug/mL 0.27-0.5 0 [facility] ([facility]) ID Date Data Source [id number] 10/14/2020 12:01:00 AM EDT [facility] ([facility]) Name Value Range Interpretation Code Description Data Melanie rce(s) Supporting Document(s) Comprehensive Metabo Laboratory test result [facility] ([facility]) COMPREHENSIVE METABOLIC PANEL Sodium 140 meq/L 134-153 [facility] Potassium 3.9 meq/L 3.6-5.0 [facility] Co2 31 meq/L 22-30 [facility] Chloride 102 meq/L 98-107 [facility] BUN 12 mg/dL 7-21 [facility] Glucose 94 mg/dL 70-99 [facility] Creatinine 0.8 mg/dL 0.7-1.5 [facility] ([facility]) Total Protein 7.0 g/dL 6.3-8.2 [facility] ([facility]) BUN/Creat 15 8-27 [facility] Globulin 2.8 GM/DL 2.4-3.2 [facility] Albumin 4.2 g/dL 3.9-5.0 [facility] A/G Ratio 1.5 0.8-2.0 [facility] Calcium 10.1 mg/dL 8.4-10.2 [facility] ([facility]) Total Bili Laboratory test result 0.2-1.3 [facility] ([facility]) Alkaline Phos 62 U/L 38-126 [facility] ([facility]) Sgot/Ast 14 U/L 5-40 [facility] SGPT/Alt 13 U/L 7-56 [facility] Anion Gap 7.0 mmol/L 8.0-16.0 [facility] Non-Aa GFR Laboratory test result [facility] ([facility]) Age 65 yrs [facility] Afr Amer GFR Laboratory test result [facility] ([facility]) Male GFR Interprentation 20-49 yrs >60 [...] >32 mL/min Normal ID Date Data Source [id number] 10/14/2020 12:01:00 AM EDT [facility] ([facility]) Name Value Range Interpretation Code Description Data Melanie rce(s) Supporting Document(s) Troponin T.cardiac [Mass/volume] in Serum or Plasma Laborato ry test result 0.00-0.10 [facility] ([facility]) TROPONIN T 0.1 ng/ml Recommended as the clinical th reshold value for Troponin T. ID Date Data Source [id number] 10/14/2020 12:01:00 AM EDT [facility] ([facility]) Name Value Range Interpretation Code Description Data Melanie rce(s) Supporting Document(s) pCO2 V 56.1 mm/HG 38.0-51.0 [facility] pH V 7.37 7.32-7.43 [facility] pO2 V 39.7 mm/HG 30.0-55.0 [facility] Hco3 V 31.5 meq/L 22.0-29.0 [facility] Tco2 V 33.2 meq/L 22.0-29.0 [facility] O2 Sat V 73.4 % 40.0-85.0 [facility] Base Excess 4.9 [facility] ([facility]) ID Date Data Source [id number] 10/14/2020 12:01:00 AM EDT [facility] ([facility]) Name Value Range Interpretation Code Description Data Melanie rce(s) Supporting Document(s) Protime 15.3 s 11.0-15.5 [facility]) Inr 1.15 0.93-1.23 [facility] ([facility]) \\BLDo\\INR INTERPRETATION\\BLDx\\ Therapeutic range for Coumadin and related oral a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. -International Normalized Ratio (INR): 2 .0 - 3.0 for Venous Thrombosis, Pulmonary Embolus, Tissue heart valves, Acute MS, Atrial Fibrillation, Valvular heart disease and recurrent Systemic Embolism. -International Normalized Ratio (INR): 2 .5 - 3.5 for Mechanical Prosthetic valve. ID Date Data Source [id number] 10/14/2020 12:01:00 AM EDT [facility] ([facility]) Name Value Range Interpretation Code Description Data Melanie rce(s) Supporting Document(s) Lactate [Mass/volume] in Serum or Plasma 1.4 mmol/L 0.2-2.2 [facility] ([facility]) ID Date Data Source [id number] 10/14/2020 12:01:00 AM EDT [facility] ([facility]) Name Value Range Interpretation Code Description Data Melanie rce(s) Supporting Document(s) CBC W/Automated Diff Laboratory test result [facility] ([facility]) COMPLETE BLOOD COUNT WBC 5.8 10^3/uL 4.2-11.0 [facility] ([facility]) RBC 3.92 10^6/uL 4.20-5.40 [facility] ([facility]) Hematocrit 36.6 % 37.0-47.0 [facility] ([facility]) Hemoglobin 11.9 g/dL 12.0-16.0 [facility] ([facility]) MCV 93.4 fL 81.0-101 [facility] MCH 30.4 pg 27.0-34.0 [facility] RDW 15.5 % 11.5-14.5 [facility] MCHC 32.5 g/dL 31.0-36.0 [facility]) Platelets 204 10^3/uL 150-450 [facility] ([facility]) MPV 8.4 fL 7.4-10.4 [facility]) Neut 43.7 % 37.0-80.0 [facility]) Lymph 45.6 % 25.0-40.0 [facility]) Irwin 6.2 % 3.0-8.0 [facility]) Baso 0.3 % 0.0-2.5 [facility]) Eos 4.0 % 0.0-7.0 [facility]) %Ig 0.2 % 0.0-0.0 [facility] %NRBC 0.0 % 0.0-0.0 [facility] #Neut 2.54 10^3/uL 2.00-6.90 [facility] ([facility]) #Lymph 2.65 10^3/uL 0.60-3.40 [facility] ([facility]) #Irwin 0.36 10^3/uL 0.00-0.90 [facility] ([facility]) #Eos 0.23 10^3/uL 0.00-0.70 [facility] ([facility]) #Baso 0.02 10^3/uL 0.00-0.20 [facility] ([facility]) #Ig 0.01 10^3/uL 0.00-0.10 [facility] ([facility]) #NRBC 0.00 10^3/uL 0.00-0.00 [facility] ([facility]) Manual Diff Laboratory test result [facility] ([facility]) RBC Morph Laboratory test result [facility] ([facility]) ID Date Data Source [id number] 10/14/2020 02:08:00 AM EDT [facility] Name Value Range Interpretation Code Description Data Melanie rce(s) Supporting Document(s) BNP 20 PG/ML 0 - 125 [facility] ID Date Data Source [id number] 10/14/2020 12:40:00 AM EDT [facility] Name Value Range Interpretation Code Description Data Melanie rce(s) Supporting Document(s) Fibrin D-dimer FEU [Mass/volume] in Platelet poor plasma 0.32 ug /mL 0.27 - 0.50 [facility] ID Date Data Source [id number] 10/14/2020 12:39:00 AM EDT [facility] Name Value Range Interpretation Code Description Data Melanie rce(s) Supporting Document(s) Magnesium [Mass/volume] in Serum or Plasma 2.2 MG/DL 1.7 - 2.2 [facility] ID Date Data Source [id number] 10/14/2020 12:39:00 AM EDT [facility] Name Value Range Interpretation Code Description Data Melanie rce(s) Supporting Document(s) C reactive protein [Mass/volume] in Serum or Plasma by High sensitivity method 11.76 MG/L 1.00 - 3.00 H [facility] CDC/S HS-CRP CUT-OFF: RELATIVE RISK: <1.0 mg/L Low 1.0 - 3.0 mg/L Average >3.0 mg/L High Optimally, the average of HS-CRP results repeated two weeks apart should be used for risk assessment. ID Date Data Source [id number] 10/14/2020 12:39:00 AM EDT [facility] Name Value Range Interpretation Code Description Data Melanie rce(s) Supporting Document(s) COMPREHENSIVE METABOLIC PANEL [facility] COMPREHENSIVE METABOLIC PANEL Sodium [Moles/volume] in Serum or Plasma 140 mEq/L 134 - 153 [facility] Potassium [Moles/volume] in Serum or Plasma 3.9 mEq/L 3.6 - 5.0 [facility] Chloride [Moles/volume] in Serum or Plasma 102 mEq/L 98 - 107 [facility] Carbon dioxide, total [Moles/volume] in Serum or Plasma 31 MEQ/L 22 - 30 H [facility] Glucose [Mass/volume] in Serum or Plasma 94 MG/DL 70 - 99 [facility] BUN 12 MG/DL 7 - 21 [facility] Creatinine [Mass/volume] in Serum or Plasma 0.8 MG/DL 0.7 - 1.5 [facility] BUN/CREAT 15 8 - 27 [facility] Protein [Mass/volume] in Serum or Plasma 7.0 G/DL 6.3 - 8.2 [facility] Albumin [Mass/volume] in Serum or Plasma 4.2 G/DL 3.9 - 5.0 [facility] Globulin [Mass/volume] in Serum by calculation 2.8 GM/DL 2.4 - 3.2 [facility] A/G RATIO 1.5 0.8 - 2.0 [facility] Calcium [Mass/volume] in Serum or Plasma 10.1 MG/DL 8.4 - 10.2 [facility] Bilirubin.total [Mass/volume] in Serum or Plasma <0.7 MG/DL 0.2 - 1.3 [facility] Alkaline phosphatase [Enzymatic activity/volume] in Serum or Plasma 62 U/L 38 - 126 [facility] Aspartate aminotransferase [Enzymatic activity/volume] in Serum or Plasma 14 U/L 5 - 40 [facility] Alanine aminotransferase [Enzymatic activity/volume] in Seru m or Plasma 13 U/L 7 - 56 [facility] Anion gap 3 in Serum or Plasma 7.0 mmol/L 8.0 - 16.0 L [facility] AGE [address] [facility] NON-AA GFR >60 mL/min [facility] AFR AMER GFR >60 [facility] Male GFR In terprentation [...] >32 mL/min Normal ID Date Data Source [id number] 10/14/2020 12:39:00 AM EDT [facility] Name Value Range Interpretation Code Description Data Melanie rce(s) Supporting Document(s) TROPONIN T <0.01 NG/ML 0.00 - 0.10 [facility] TROPONIN T0.1 ng/ml Recommended as the c linical threshold value forTroponin T. ID Date Data Source [id number] 10/14/2020 12:22:00 AM EDT [facility] Name Value Range Interpretation Code Description Data Melanie rce(s) Supporting Document(s) Prothrombin time (PT) 15.3 SECONDS 11.0 - 15.5 [facility] INR in Platelet poor plasma by Coagulation assay 1.15 0.93 - 1. 23 [facility] \\BLDo\\INR INTERPRETATION\\BLDx\\ Therapeutic range for Coumadin and related oral a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. - International Normalized Ratio (INR): 2.0 - 3.0 for Venous Thrombosis, Pulmonary Embolus, Tissue heart valves, Acute MS, Atrial Fibrillation, Valvular heart disease and recurrent Systemic Embolism. -International Normalized Ratio (INR): 2.5 - 3.5 for Mechanical Prosthetic valve. ID Date Data Source [id number] 10/14/2020 12:22:00 AM EDT [facility] Name Value Range Interpretation Code Description Data Melanie rce(s) Supporting Document(s) Lactate [Moles/volume] in Serum or Plasma 1.4 MMOL/L 0.2 - 2.2 [facility] ID Date Data Source [id number] 10/14/2020 12:22:00 AM EDT [facility] Name Value Range Interpretation Code Description Data Melanie rce(s) Supporting Document(s) pH of Serum or Plasma 7.37 7.32 - 7.43 [facility] pCO2 V 56.1 mm/HG 38.0 - 51.0 [facility] pO2 V 39.7 mm/HG 30.0 - 55.0 [facility] Bicarbonate [Moles/volume] in Venous blood 31.5 meq/L 22.0 - 29.0 H [facility] TCO2 V 33.2 meq/L 22.0 - 29.0 H [facility] pital Base excess in Blood by calculation 4.9 -2.0 - 2.0 H [facility] O2 SAT V 73.4 % 40.0 - 85.0 [facility] ID Date Data Source [id number] 10/14/2020 12:10:00 AM EDT [facility] Name Value Range Interpretation Code Description Data Melanie rce(s) Supporting Document(s) CBC W/AUTOMATED DIFF [facility] COMPLETE BLOOD COUNT Leukocytes [#/volume] in Blood by Automated count 5.8 10^3/uL 4.2 - 1 1.0 [facility] Erythrocytes [#/volume] in Blood by Automated count 3.92 10^6/uL 4. 20 - 5.40 L [facility] Hemoglobin [Mass/volume] in Blood 11.9 g/dL 12.0 - 16.0 L [facility] Hematocrit [Volume Fraction] of Blood by Automated count 36.6 % 3 7.0 - 47.0 L [facility] Erythrocyte mean corpuscular volume [Entitic volume] by Auto mated count 93.4 fL 81.0 - 101 [facility] Erythrocyte mean corpuscular hemoglobin [Entitic mass] by Automated count 30.4 pg 27.0 - 34.0 [facility] Erythrocyte mean corpuscular hemoglobin concentration [Mass/volume] by Automated count 32.5 g/dL 31.0 - 36.0 [facility] Erythrocyte distribution width [Ratio] by Automated count 15.5 % 11.5 - 14.5 H [facility] Platelets [#/volume] in Blood by Automated count 204 10^3/uL 150 - 45 0 [facility] Platelet mean volume [Entitic volume] in Blood by Automated count 8.4 fL 7.4 - 10.4 [facility] Neutrophils/100 leukocytes in Blood by Automated count 43.7 % 37. 0 - 80.0 [facility] Lymphocytes/100 leukocytes in Blood by Manual count 45.6 % 25.0 - 40.0 H [facility] Monocytes/100 leukocytes in Blood by Automated count 6.2 % 3.0 - 8.0 [facility] Eosinophils/100 leukocytes in Blood by Automated count 4.0 % 0.0 - 7.0 [facility] Basophils/100 leukocytes in Blood by Automated count 0.3 % 0.0 - 2.5 [facility] %IG 0.2 % 0.0 - 0.0 [facility] %NRBC 0.0 % 0.0 - 0.0 [facility] al Neutrophils [#/volume] in Blood by Automated count 2.54 10^3/uL 2.00 - 6.90 [facility] Lymphocytes [#/volume] in Blood by Automated count 2.65 10^3/uL 0.60 - 3.40 [facility] Monocytes [#/volume] in Blood by Automated count 0.36 10^3/uL 0.00 - 0.90 [facility] Eosinophils [#/volume] in Blood by Automated count 0.23 10^3/uL 0.00 - 0.70 [facility] Basophils [#/volume] in Blood by Automated count 0.02 10^3/uL 0.00 - 0.20 [facility] #IG 0.01 10^3/uL 0.00 - 0.10 [facility] #NRBC 0.00 10^3/uL 0.00 - 0.00 [facility] MANUAL DIFF NOT INDICATED [facility] RBC MORPH NOT INDICATED [facility] ID Date Data Source [id number] 10/18/2020 02:37:00 PM EDT [facility] Name Value Range Interpretation Code Description Data Melanie rce(s) Supporting Document(s) CULTURE URINE [facility] _CULTURE URINE_$$[id number]$$[id number]$$[id number]$$[id number]$$[id number]$$[id number]$$[id number]$$[id number]$$[id number]$$ 775733$$022420$$168664$$445584$$772131$$779714$$021516$$126641$$729388$$112411$$ 627893$$433748$$798416$$219388$$364213$$626902$$[id number]$$[id number] -- Continued on next page --Patient: CANDIDO MARIO Order: Page 2Culture: CULTURE URINE Status: Final ==== -- Continued on next page --Patient: CANDIDO MARIO Order: Page 2Culture: CULTURE URINE Status: Prelim ===== -- Continued on next page --Patient: CANDIDO MARIO Order: Page 2Culture: CULTURE URINE Status: Prelim =====$$[id number]$$[id number] DATE/TIME: 10/18/2020 12:06Culture: CULTURE URINE Status: FinalIsolate 1 Enterococcus faecalis Flag: A . . . . . . .7Greater than 100,000 colony forming units per mL Previous result entered on 10/17/2020 14:24 ET Enterococcus faecalisSusceptibility results being verified. Final report to follow. Previous result entered on 10/17/2020 05:41 ET Microbiological testing to rule out the presence of possible pathogensis in progress.Urine Culture,Comprehensive: [id number] faecalis Flag: APatient: CANDIDO MARIO Order: Page 3Culture: CULTURE URINE Status: Final ISOLATE 1 Enterococcus faecalis Isolate 1Antibiotic YONG IntUnits ug/mL ----Ciprofloxacin R R . . . . . .185-9Levofloxacin R R . . . . . .50150-9Atuqlbwdaxorgs S S . . . . . .363-2Penicillin S S . . . . . .6932-8Tetracycline R R . . . . . .496- 0Vancomycin S S . . . . . 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 : 10/[email or web address] REF 10/18/[email or web address] REF 10/18/[email or web address] REF ID Date Data Source [id number] 10/13/2020 11:45:00 PM EDT [facility] ([facility]) Name Value Range Interpretation Code Description Data Melanie rce(s) Supporting Document(s) Urinalysis Laboratory test result [facility] ([facility]) SOURCE: Clean Catch Source Laboratory test result [facility] ([facility]) SOURCE: Clean Catch Clarity Laboratory test result [facility] ([facility]) SOURCE: Clean Catch Color Laboratory test result [facility] ([facility]) SOURCE: Clean Catch Spec Harrah 1.010 1.001-1.030 [facility] ([facility]) SOURCE: Clean Catch Glucose Laboratory test result [facility] ([facility]) SOURCE: Clean Catch pH 7 5-9 [facility] ([facility]) SOURCE: Clean Catch Bilirubin Laboratory test result [facility] ([facility]) SOURCE: Clean Catch Ketone Laboratory test result [facility] ([facility]) SOURCE: Clean Catch Protein Laboratory test result [facility] ([facility]) SOURCE: Clean Catch Blood 25 Abnormal (applies to non-numeric res ults) [facility] ([facility]) SOURCE: Clean Catch Nitrite Laboratory test result [facility] ([facility]) SOURCE: Clean Catch Leuk Est 500 Abnormal (applies to non-numeric res ults) [facility] ([facility]) SOURCE: Clean Catch Urobilinogen Laboratory test result [facility] ([facility]) SOURCE: Clean Catch Microscopic Laboratory test result [facility] ([facility]) SOURCE: Clean Catch WBC Laboratory test result Abnormal (applies to non -numeric results) [facility] ([facility]) SOURCE: Clean Catch RBC Laboratory test result [facility] ([facility]) SOURCE: Clean Catch Epithelial Laboratory test result Abnormal (applies to non -numeric results) [facility] ([facility]) SOURCE: Clean Catch Bacteria Laboratory test result Abnormal (applies to non -numeric results) [facility] ([facility]) SOURCE: Clean Catch ID Date Data Source [id number] 10/13/2020 11:45:00 PM EDT [facility] ([facility] Name Value Range Interpretation Code Description Data Melanie rce(s) Supporting Document(s) Culture Urine Laboratory test result [facility] ([facility]) SOURCE: Clean Catch ID Date Data Source [id number] 10/14/2020 12:22:00 AM EDT [facility] Name Value Range Interpretation Code Description Data Melanie rce(s) Supporting Document(s) URINALYSIS [facility] URINALYSIS SOURCE R [facility] COLOR yellow NORMAL: Yellow [facility] CLARITY hazy NORMAL: Clear [facility] Specific gravity of Urine by Test strip 1.010 1.001 - 1.030 [facility] pH 7 5 - 9 [facility] Glucose [Mass/volume] in Urine by Test strip NORM NORMAL: Negat [facility] Bilirubin.total [Presence] in Urine by Test strip NEG NORMAL: Negative [facility] Ketones [Presence] in Urine by Test strip NEG NORMAL: Negative [facility] Protein [Mass/volume] in Urine by Test strip NEG NORMAL: Negat [facility] Nitrite [Presence] in Urine by Test strip NEG NORMAL: Negative [facility] BLOOD 25 NORMAL: Negative [facility] Leukocyte esterase [Presence] in Urine by Test strip 500 KANE L: Negative [facility] Urobilinogen [Mass/volume] in Urine by Test strip NOR less deanna n 1.0 mg/dL [facility] MICROSCOPIC See Below [facility] WBC 7 - 10 NORMAL: NONE SEEN A [facility] Erythrocytes [#/volume] in Urine by Test strip 1 - 3 NORMAL: NON E SEEN [facility] EPITHELIAL MODERATE NORMAL: NONE SEEN A [facility] Bacteria [Presence] in Urine sediment by Light microscopy 2+ MOD NORMAL: NONE SEEN A [facility] ID Date Data Source [id number] 09/16/2020 05:22:00 AM EST [facility] ([facility]) Name Value Range Interpretation Code Description Data Melanie rce(s) Supporting Document(s) Bedside Glucose 82 mg/dL 80-115 [facility] ([facility]) ID Date Data Source [id number] 09/16/2020 04:34:00 AM EST [facility] ([facility]) Name Value Range Interpretation Code Description Data Melanie rce(s) Supporting Document(s) Urine Culture Laboratory test result [facility] ([facility]) <content>FULL REPORT IN LAB NOTES (eCW [...] FOR ESBL</content>
<content></content> ID Date Data Source [id number] 09/09/2020 12:43:00 AM EST [facility] ([facility]) Name Value Range Interpretation Code Description Data Melanie rce(s) Supporting Document(s) Laboratory test finding (navigational concept) 39.0 % 38.0-51.0 [facility] ([facility]) Laboratory test finding (navigational concept) 85 mg/dL 70-105 [facility] ([facility]) Laboratory test finding (navigational concept) 4.1 meq/L 3.5-5.1 [facility] ([facility]) Laboratory test finding (navigational concept) 142 meq/L 136-145 [facility] ([facility]) Laboratory test finding (navigational concept) 5.1 mg/dL 4.5-5.3 [facility] ([facility]) Laboratory test finding (navigational concept) 106 meq/L 98-109 [facility] ([facility]) Laboratory test finding (navigational concept) 18 mg/dL 8-26 [facility] ([facility]) Laboratory test finding (navigational concept) 29.0 MM/L 23.0-27.0 [facility] Laboratory test finding (navigational concept) 0.9 mg/dL 0.6-1.3 [facility] ID Date Data Source [id number] 09/09/2020 12:37:00 AM EST [facility] ([facility]) Name Value Range Interpretation Code Description Data Melanie rce(s) Supporting Document(s) Lipoprotein lipase [Enzymatic activity/volume] in Serum or P lasma 141 U/L 73-393 [facility]) ID Date Data Source [id number] 09/09/2020 12:37:00 AM EST [facility] ([facility]) Name Value Range Interpretation Code Description Data Melanie rce(s) Supporting Document(s) Ast/Sgot 10 U/L 7-37 [facility] ([facility] Alt/SGPT 16 U/L 12-78 [facility] Alkaline Phosphatase 60 U/L 45-117 [facility] ([facility]) Bilirubin,Total 0.2 mg/dL 0.2-1.0 [facility] ([facility]) Bilirubin,Direct Laboratory test result 0.0-0.2 [facility] ([facility]) Total Protein 7.2 GM/DL 6.4-8.2 [facility] ([facility]) Albumin 3.2 GM/DL 3.2-5.2 [facility] ([facility] Albumin/Globulin Ratio 0.8 1.2-2.2 [facility] ([facility]) ID Date Data Source [id number] 09/09/2020 12:37:00 AM EST [facility] ([facility]) Name Value Range Interpretation Code Description Data Melanie rce(s) Supporting Document(s) White Blood Count 5.2 10 4.0-10.0 [facility] ([facility]) Hemoglobin 11.7 g/dL 12.0-15.5 [facility] Red Blood Count 4.06 10 4.00-5.40 [facility] ([facility]) Hematocrit 38.6 % 36.0-47.0 [facility] Mean Corpuscular Volume 95.1 fl 80.0-96.0 [facility] ([facility]) Mean Corpuscular Hemoglobin 28.8 pg 27.0-33.0 [facility] ([facility]) Mean Corpuscular HGB Conc 30.3 g/dL 32.0-36.5 [facility] ([facility]) Platelet Count, Automated 180 10 150-450 [facility] ([facility]) Red Cell Distribution Width 14.7 % 11.5-14.5 [facility] ([facility]) Neutrophils % 50.9 % 36.0-66.0 [facility] ([facility]) Lymph % 37.5 % 24.0-44.0 [facility] Irwin % 7.9 % 2.0-8.0 [facility] Eos % 3.3 % 0.0-3.0 [facility] Baso % 0.2 % 0.0-1.0 [facility]) Immature Granulocyte % 0.2 % 0-3.0 [facility] ([facility]) Nucleated Red Blood Cell % 0.0 % 0-0 [facility] ([facility]) Neutrophils # 2.6 10 1.5-8.5 [facility] ([facility]) Lymph # 1.9 10 1.5-5.0 [facility] Irwin # 0.4 10 0.0-0.8 [facility] Eos # 0.2 10 0.0-0.5 [facility] Baso # 0.0 10 0.0-0.2 [facility] ID Date Data Source [id number] 08/12/2020 08:01:00 AM EST [facility] ([facility]) Name Value Range Interpretation Code Description Data Melanie rce(s) Supporting Document(s) Reflex Urine Culture Laboratory test result [facility] ([facility]) <content>FULL REPORT IN LAB NOTES (eCW [...] FOR ESBL</content>
<content></content> ID Date Data Source [id number] 08/12/2020 08:01:00 AM EST [facility]) Name Value Range Interpretation Code Description Data Melanie rce(s) Supporting Document(s) Color, Urine RFX Laboratory test result [facility] ([facility]) Appearance, Urine RFX Laboratory test result [facility] ([facility]) PH,Urine RFX 7.0 units 5.0-9.0 [facility] [facility]) Specific Harrah Ur Auto RFX 1.008 1.002-1.035 [facility]) Protein, Urine Auto RFX Laboratory test result [facility] ([facility]) Ketone, Urine Auto RFX Laboratory test result [facility] ([facility]) Glucose, Urine (Ua) Auto RFX Laboratory test result [facility] ([facility]) Bilirubin, Urine Auto RFX Laboratory test result [facility] ([facility]) Urobilinogen, Urine Auto RFX 0.2 mg/dL 0.0-2.0 [facility] ([facility]) Nitrite, Urine Auto RFX Laboratory test result [facility] ([facility]) Blood, Urine Blood RFX Laboratory test result [facility] ([facility]) Leukocyte Esterase Ur Auto RFX Laboratory test result [facility] ([facility]) WBC, Urine Auto RFX 9 /HPF 0-3 [facility] ([facility]) Bacteria, Urine Auto RFX Laboratory test result [facility] ([facility]) RBC, Urine Auto RFX 9 /HPF 0-3 [facility] ([facility]) Squam Epithelial Cell Ur Aurfx 5 /HPF 0-6 [facility] ([facility]) Hyaline Cast, Urine Auto RFX 0 /LPF 0-1 M [facility] ([facility]) Mucus, Urine RFX Laboratory test result [facility] ([facility]) Amorphous Sediment RFX Laboratory test result [facility] ([facility]) ID Date Data Source [id number] 08/12/2020 07:52:00 AM EST [facility] ([facility]) Name Value Range Interpretation Code Description Data Melanie rce(s) Supporting Document(s) Gats Culture (Neg Strep SCR) Laboratory test result [facility] ([facility]) FULL REPORT IN LAB NOTES ([facility]CW and [facility] ). NEGATIVE FOR STREP PYOGENES (GROUP A) ID Date Data Source [id number] 08/12/2020 06:51:00 AM EST [facility] ([facility]) Name Value Range Interpretation Code Description Data Melanie rce(s) Supporting Document(s) Influenza A Amplification Laboratory test result [facility] ([facility]) Negative results do not preclude influen za or RSV virus infection and should not be used as the sole basis for treatment or other patient management decisions. RSV Amplification Laboratory test result [facility] ([facility]) Negative results do not preclude influen za or RSV virus infection and should not be used as the sole basis for treatment or other patient management decisions. Influenza B Amplification Laboratory test result [facility] ([facility]) Negative results do not preclude influen za or RSV virus infection and should not be used as the sole basis for treatment or other patient management decisions. Laboratory test finding (navigational concept) Laboratory test result [facility] ([facility]) A false negative result may [...] pathogens. DISCLAIMER: Testing was performed using the [employer] SARS-CoV-2 test. This test was developed and its performance characteristics determined by [employer]. This test has not been FDA cleared [...] or revoked sooner. ID Date Data Source [id number] 08/12/2020 06:51:00 AM EST [facility] Name Value Range Interpretation Code Description Data Melanie rce(s) Supporting Document(s) SARS coronavirus 2 RNA [Presence] in Res piratory specimen by MILAGROS with probe detection NEGATIVE [facility] This lab was ordered by [facility] a nd reported by [facility]. ID Date Data Source [id number] 07/22/2020 04:54:00 AM EST [facility] ([facility]) Name Value Range Interpretation Code Description Data Melanie rce(s) Supporting Document(s) Reflex Urine Culture Laboratory test result [facility] ([facility]) <content>FULL REPORT IN LAB NOTES ([facility]CW [...] 1 S</content>
<content></content> ID Date Data Source [id number] 07/22/2020 04:54:00 AM EST [facility] ([facility]) Name Value Range Interpretation Code Description Data Melanie rce(s) Supporting Document(s) Color, Urine RFX Laboratory test result [facility] ([facility]) Appearance, Urine RFX Laboratory test result [facility] ([facility]) PH,Urine RFX 7.0 units 5.0-9.0 [facility] ([facility]) Specific Harrah Ur Auto RFX 1.005 1.002-1.035 [facility] ([facility]) Protein, Urine Auto RFX Laboratory test result [facility] ([facility]) Glucose, Urine (Ua) Auto RFX Laboratory test result [facility] ([facility]) Urobilinogen, Urine Auto RFX 0.2 mg/dL 0.0-2.0 [facility] ([facility]) Ketone, Urine Auto RFX Laboratory test result [facility] ([facility]) Nitrite, Urine Auto RFX Laboratory test result [facility] ([facility]) Bilirubin, Urine Auto RFX Laboratory test result [facility] ([facility]) Leukocyte Esterase Ur Auto RFX Laboratory test result [facility] ([facility]) Blood, Urine Blood RFX Laboratory test result [facility] ([facility]) WBC, Urine Auto RFX 11 /HPF 0-3 [facility] ([facility]) RBC, Urine Auto RFX 1 /HPF 0-3 [facility] ([facility]) Squam Epithelial Cell Ur Aurfx 0 /HPF 0-6 [facility] ([facility]) Bacteria, Urine Auto RFX Laboratory test result [facility] ([facility]) Hyaline Cast, Urine Auto RFX 0 /LPF 0-1 M [facility] ([facility]) Mucus, Urine RFX Laboratory test result [facility] ([facility]) ID Date Data Source [id number] 07/01/2020 06:35:00 AM EST [facility] 1 OrderSheet [facility] Emergency Department [address] [place] [address] Phone #: ext- [phone] 07/01/2020 06:35 Patient: FABIANO RAMIREZ Sex: F : 1955 Age: 64yWEIGHT:76.2 kg (M)ALLERGIES: Darvacet, Demerol, MicrodentinCHIEF COMPLAINT: dysuriaDIAGNOSIS: Urinary tract infectious diseaseLAB ORDERSOrder Description Priority Entered Acknowledged InitialedUrinalysis (Clean STAT 06:47 07/01/2020 06:54 Tamia Hemphill) Tamia Clements R.N. RFreyaNFreya; Per protocol; Henri Boyle PhysicianCulture, Urine STAT [...] rce(s) Supporting Document(s) ID Date Data Source [id number] 07/01/2020 06:35:00 AM EST [facility] 1 Medication Reconciliation Report [facility] Emergency Department [address] [place] [address] Phone #: ext- [phone] 07/01/2020 06:35 Patient: [...] the Emergency Department: 2 Medication Reconciliation Report [facility] Emergency Department [address] [place] [address] Phone #: ext- [phone] 07/01/2020 06:35 Patient: FABIANO RAMIREZ Sex: F : 1955 Age: 64yNone.The following Medications were prescribed to the patient:ciprofloxacin 250 mg tablet Take 1 tablet twice a day for 7 days -- Dispense 14 tablet. Refills: 0.Substitution permitted.Pharmacy - [phone] - [address] ; [place] [address]. . -- Xavier Robertson, Physician Name Value Range Interpretation Code Description Data Melanie rce(s) Supporting Document(s) ID Date Data Source [id number] 07/01/2020 06:35:00 AM EST [facility] 1 Medication Administration Record [facility] Emergency Department [address] [place] [address] Phone #: ext- [phone] 07/01/2020 06:35 Patient: FABIANO RAMIREZ Sex: F : 1955 Age: 64yWeight: 76.2 kgHeight/Length: 59 inBMI: 34ALLERGIES: Darvacet, Demerol, MicrodentinDate/Time Medication Administered Medication Ordered Name Value Range Interpretation Code Description Data Melanie rce(s) Supporting Document(s) ID Date Data Source [id number] 07/01/2020 06:35:00 AM EST [facility] 1 General Instructions [facility] Emergency Department [address] [place] [address] Phone #: ext- [phone] 07/01/2020 06:35 Patient: [...] Dispense 14 tablet. Refills: 0.Substitution permitted.Pharmacy - [phone] - [address] ; [place] [address]. .Follow-up:Follow up with your healthcare provider in four days. Call for an appointment.Understanding of the discharge instructions v erbalized by patient. ADDITIONAL INFORMATION 2 General Instructions [facility] Emergency Department [address] [place] [address] Phone #: ext- [phone] 07/01/2020 06:35 Patient: [...] or burning when urinating 3 General Instructions [facility] Emergency Department [address] [place] [address] Phone #: ext- [phone] 07/01/2020 06:35 Patient: [...] (dehydration) Constipation Having sex 4 General In [facility] Emergency Department [address] [place] [address] Phone #: ext- [phone] 07/01/2020 06:35 Patient: [...] flush out your bladder. 5 General Instructions [facility] Emergency Department [address] [place] [address] Phone #: [phone] 07/01/2020 06:35 Patient: FABIANO RAMIREZ Sex: F [...] swelling in the outer vaginal area (labia) [id number] [employer] [place] [address]. All rights reserved. This information is not intended as asubstitute for professional medical care. Always follow your healthcare professional's instructions. You have been given the following additional information: Bladder Infection, Female (Adult) 6 General Instructions [facility] Emergency Department [address] [place] [address] Phone #: ext- [phone] 07/01/2020 06:35 Patient: FABIANO RAMIREZ Sex: F : 1955 Age: 64y(Electronically signed by Xavier Robertson, Physician 07/01/2020 08:41) Name Value Range Interpretation Code Description Data Melanie rce(s) Supporting Document(s) ID Date Data Source [id number] 07/01/2020 06:35:00 AM EST [facility] 1 Clinical Report - Nurses [facility] Emergency Department [address] [place] [address] Phone #: ext- [phone] 07/01/2020 06:35 Patient: FABIANO RAMIREZ Sex: F : 1955 Age: 64yTRIAGEArrived by EMS. Historian: patient.Triage time: 06:35 07/01/2020. Acuity: LEVEL 4.Chief Complaint: PAINFUL URINATION.Onset. (2 days). No fever.EMS Treatment INSTRUCTION LIBRARIAN:See EMS report.SEPSIS SCREEN: SEPSIS SCREEN NEGATIVE. No suspected or confirmed signs of infection present.--06:47 07/01/20 Tamia Clements R.N.06:43 07/01/20. BP: 133/83. MAP: 99. HR: 83. RR: 16. O2 saturation: 98%. Temp: 97.4 F. Pain level now:810. --06:47 07/01/20 Tamia Clements R.N.Weight: 76.2 kg [...] Clements R.N.PROBLEMS: 2 Clinical Report - Nurses [facility] Emergency Department [address] [place] [address] Phone #: ext- [phone] 07/01/2020 06:35 Patient: [...] 07/01/20 Xavier Robertson Physician.PHYSICAL ASSESSMENTTo room via stretche r.GENERAL / NEURO / PSYCH: Alert. Oriented X 4. Appears anxious.HEENT: Mucous membranes are pink.RESPIRATORY: Respirations not labored.CVS: Capillary refill less than 2 seconds.GI / : No emesis noted. Pain with urination. She has had frequency of urination. Urgency ofurination. Patient is incontinent of urine. 3 Clinical Report - Nurses [facility] Emergency Department [address] [place] [address] Phone #: ext- [phone] 07/01/2020 06:35 Patient: [...] rce(s) Supporting Document(s) ID Date Data Source [id number] 07/01/2020 06:35:00 AM [facility] 1 Clinical Report - Physicians/Mid Levels [facility] Emergency Department [address] [place] [address] Phone #: ext- [phone] 07/01/2020 06:35 Patient: FABIANO RAMIREZ Sex: F [...] Appendectomy. 2 Clinical Report - Physicians/Mid Levels [facility] Emergency Department [address] [place] [address] Phone #: ext- [phone] 07/01/2020 06:35 Patient: [...] turgor. 3 Clinical Report - Physicians/Mid Levels [facility] Emergency Department [address] [place] [address] Phone #: ext- [phone] 07/01/2020 06:35 Patient: [...] right ankle pain.INSTRUCTIONS 4 Clinical Report - Physicians/[facility] Emergency Department [address] [place] [address] Phone #: ext- [phone] 07/01/2020 06:35 [id number] Sex: F : 1955 Age: 64y Drink [...] tablet. Refills: 0. Substitution permitted. Pharmacy - [phone] - [address] ; [place] [address]. . Follow-up: Follow up with your healthcare provider in four days. Call for an appointment. Understanding of the discharge instructions verbalized by patient.(Electronically signed by Xavier Robertson, Physician 07/01/2020 08:41) Name Value Range Interpretation Code Description Data Melanie rce(s) Supporting Document(s) ID Date Data Source [id number] 07/01/2020 06:50:00 AM EST [facility] ([facility]) Name Value Range Interpretation Code Description Data Melanie rce(s) Supporting Document(s) Culture Urine Laboratory test result [facility] ([facility]) <content>_CULTURE URINE_</content>
<content>^$229920</content>
<content>^^718039</content>
<content>$$871059</content>
<content>^^014920</content>
<content>$$ 031350</content>
<content>$$582172</content>
<content>$$168474</content>
<content>$$ 531273</content>
<content>$$411769</content>
<content>$$044322</content>
<content> $$055245</content>
<content>$$215552</content>
<content>$$881238</conten t>
<content>$$083329</content>
<content>$$708824</content>
<content> $$441121</content>
<content>$$773732</content>
<content>$$487966</content>
<content>$$89913 0</content>
<content>$$637864</content>
<content>$$001988</content>
<content>$$151650</content>
<content>$$290723</content>
<content>$$169228</content>
<content>$$ 061847</content>
<content>$$207517</content>
<content>$$281526</content>
<content> ^^651200</content>
<content>$$288278</content>
<content>$$078028</conten t>
<content>$$230613</content>
<content></content>
<content>-- Continued on next page --</content>
<content>Patient: CANDIDO MARIO Order: [id number] Page 2</content>
<content>Culture: CULTURE URINE Status: Final</laron nt>
<content> < /content>
<content></content>
<content></content>
<content>-- Continued on next page --</content>
<content>Patient: CANDIDO MARIO Order: [id number] Page 2</content>
<content>Culture: CULTURE URINE Status: Prelim</content>
<content> < /content>
<content></content>
<content></content>
<content>-- Continued on next page --</content>
<content>Patient: CANDIDO MARIO Order: [id number] Page 2</content>
<content>Culture: CULTURE URINE Status: Prelim</content>
<content> < /content>
<content></content>
<content>$$505614</content>
<content>$ $158064</content>
<content></content>
<content>REPORTED DATE/TIME: 07/05/2020 11:06</content>
<content>Culture: CULTURE [...]
<content></content>
<content></content>
<content> Patient: CANDIDO MARIO Order: [id number] Page 3</content>
<content>Culture: CULTURE URINE Status: Final</content>
[...] S S . . . . . .01020-1</content>
<content>Gentamicin S S . . . . . .267-5</content>
<content>Imipenem S S . . . . . .279-0</content>
<content>Levofloxacin S S . . . . . .56914-7</content>
<content>Meropenem S S . . . . . .6652-2</content>
<content>Nitrofurantoin S S . . . . . .363-2</content>
<content>Piperacillin/Tazobactam S S . . . . . .412-7</content>
<content>Tetracycline S S . . . . . .496-0</content>
<content>Tobramycin S S . . . . . .508-2</content>
<content>Trimethoprim/Sulfa S S . . . . . .516-5</content>
<content></content>
<content>P1 Test performed by: Rose HURTADO #: [id number]</content>
<content>[address]</content>
<content>[id number]</content>
<content>[place] [address]</content>
<content>Children'S Counselor : Ross Jeffers MD NPI #:</content>
<content>Machine Operator Hop Picker :</content>
<content>07/03/20.1551.XMT.SENT REF</content>
<content>07/04/20.1209.XMT.SENT REF</content>
<content>07/05/20.1201.XMT.SENT REF</content>
<content></content>
<content></content> ID Date Data Source [id number] 07/01/2020 06:50:00 AM EST [facility] ([facility]) Name Value Range Interpretation Code Description Data Melanie rce(s) Supporting Document(s) Urinalysis Laboratory test result [facility] ([facility]) URINALYSIS Source Laboratory test result [facility] ([facility]) SOURCE: Clean Catch Color Laboratory test result [facility] ([facility]) SOURCE: Clean Catch Clarity Laboratory test result [facility] ([facility]) SOURCE: Clean Catch Spec Harrah 1.010 1.001-1.030 [facility] ([facility]) SOURCE: Clean Catch pH 7 5-9 [facility] SOURCE: Clean Catch Glucose Laboratory test result [facility] ([facility]) SOURCE: Clean Catch Bilirubin Laboratory test result [facility] ([facility]) SOURCE: Clean Catch Ketone Laboratory test result [facility] ([facility]) SOURCE: Clean Catch Protein Laboratory test result [facility] ([facility]) SOURCE: Clean Catch Nitrite Laboratory test result [facility] ([facility]) SOURCE: Clean Catch Blood 150 Abnormal (applies to non-numeric res ults) [facility] ([facility]) SOURCE: Clean Catch Leuk Est 500 Abnormal (applies to non-numeric res ults) [facility] ([facility]) SOURCE: Clean Catch Urobilinogen Laboratory test result [facility] NT ([facility]) SOURCE: Clean Catch Microscopic Laboratory test result [facility] T ([facility]) SOURCE: Clean Catch WBC Laboratory test result Abnormal (applies to non -numeric results) [facility] ([facility]) SOURCE: Clean Catch RBC Laboratory test result Abnormal (applies to non -numeric results) [facility] ([facility]) SOURCE: Clean Catch Epithelial Laboratory test result Abnormal (applies to non -numeric results) [facility] ([facility]) SOURCE: Clean Catch Bacteria Laboratory test result Abnormal (applies to non -numeric results) [facility] ([facility]) SOURCE: Clean Catch ID Date Data Source [id number] 07/05/2020 12:01:00 PM EST [facility] Name Value Range Interpretation Code Description Data Melanie rce(s) Supporting Document(s) CULTURE URINE [facility] _CULTURE URINE_$$[id number]$$[id number]$$728544$$882521$$919356$$441822$$077513$$115793$$477412$$ 725946$$886879$$445230$$988669$$839360$$685693$$783652$$553526$$132426$$705350$$ 765110$$789382$$224687$$356673$$783850$$183111$$214524$$513755 -- Continued on next page --Patient: ABRANIERE FABIANO Order: [id number] Page 2Culture: CULTURE URINE Status: Final ==== -- Continued on next page --Patient: LETTIERE FABIANO Order: [id number] Page 2Culture: CULTURE URINE Status: Prelim ===== -- Continued on next page --Patient: CANDIDO MARIO Order: [id number] Page 2Culture: CULTURE URINE Status: Prelim =====$$219797$$[id number] DATE/TIME: 07/05/2020 11:06Culture: CULTURE URINE Status: FinalIsolate [...] presence of possible pathogensis in progress.Urine Culture,Comprehensive: S2Temdncdsxbo coli Flag: APatient: CANDIDO MARIO Order: [id number] Page 3Culture: CULTURE URINE Status: Final ====ISOLATE [...] S S . . . . . .91341-7Qgrtkmufke S S . . . . . .267-5Imipenem S S . . . . . .279- 0Levofloxacin S S . . . . . .85857-9Uapcspsnr S S . . . . . .6652-2Nitrofurantoin S S . . . . . .363-2Piperacillin/Tazobactam S S . . . . . .412-7Tetracycline S S . . . . . .496-0Tobramycin S S . . . . . .508-2Trimethoprim/Sulfa S S . . . . . 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 : 07/03/20.1551.XMT.SENT REF 07/04/20.1209.XMT.SENT REF 07/05/20.1201.XMT.SENT REF ID Date Data Source [id number] 07/01/2020 07:08:00 AM EST [facility] Name Value Range Interpretation Code Description Data Melanie rce(s) Supporting Document(s) URINALYSIS [facility] URINALYSIS SOURCE R [facility] COLOR yellow NORMAL: Yellow [facility] CLARITY clear NORMAL: Clear [facility] Specific gravity of Urine by Test strip 1.010 1.001 - 1.030 [facility] pH 7 5 - 9 [facility] Glucose [Mass/volume] in Urine by Test strip NORM N[facility]AL: [facility] Bil[facility].total [Presence] in Urine by Test strip NEG NORMAL: Negative [facility] Ketones [Presence] in Urine by Test strip NEG NORMAL: Negative [facility] Protein [Mass/volume] in Urine by Test strip NEG NORMAL: Negat [facility] Nitrite [Presence] in Urine by Test strip POS NORMAL: Negative [facility] BLOOD 150 NORMAL: Negative [facility] Leukocyte esterase [Presence] in Urine by Test strip 500 KANE L: Negative [facility] Urobilinogen [Mass/volume] in Urine by Test strip NOR less deanna n 1.0 mg/dL [facility] MICROSCOPIC See Below [facility] ital WBC 5 - 7 NORMAL: NONE SEEN A [facility] Erythrocytes [#/volume] in Urine by Test strip 7 - 10 NORMAL: NON E SEEN A [facility] EPITHELIAL MODERATE NORMAL: NONE SEEN A [facility] Bacteria [Presence] in Urine sediment by Light microscopy 3+ LARGE NORMAL: NONE SEEN A [facility] ID Date Data Source [id number] 06/08/2020 02:10:00 PM EST [facility] ([facility]) Name Value Range Interpretation Code Description Data Melanie rce(s) Supporting Document(s) Erythrocytes [#/volume] in Blood by Automated count 4.16 x10*6/UL 4.2 0-6.30 [facility] ([facility]) Leukocytes [#/volume] in Blood by Automated count 5.4 x10*3/UL 4.1-10 .9 [facility] ([facility]) Hemoglobin [Mass/volume] in Blood 12.5 g/dL 12.0-18.0 [facility] ([facility]) Hematocrit [Volume Fraction] of Blood by Automated count 37.8 % 3 7.0-51.0 [facility] ([facility]) MCHC 33.0 g/dL 31.0-38.0 [facility] MCH 30.1 pg 26.0-32.0 [facility] MCV 91.0 fL 80.0-97.0 [facility]) Platelets [#/volume] in Blood by Automated count 219 x10*3/UL 140-440 [facility] ([facility]) Erythrocyte distribution width [Ratio] by Automated count 14.4 % 11.6-13.7 [facility] ([facility]) MPV 6.9 FL 7.8-11.0 [facility] Lymph % 27.9 % 10.0-58.5 [facility] Neut % 65.6 % 37.0-92.0 [facility] ([facility]) Mid % 6.5 % 1.7-9.3 [facility] ([facility]) Neut # 3.5 x10*3/UL 2.0-7.8 [facility] ([facility]) Lymph # 1.5 x10*3/UL 0.6-4.1 [facility] ([facility]) Mid # 0.4 x10*3/UL 0.1-0.6 [facility] ([facility]) ID Date Data Source [id number] 05/04/2020 01:59:00 PM EDT [facility] ([facility]) Name Value Range Interpretation Code Description Data Melanie rce(s) Supporting Document(s) Triglyceride [Mass/volume] in Serum or Plasma 186 mg/dL 30-150 [facility] ([facility]) Cholesterol [Mass/volume] in Serum or Plasma 180 mg/dL 131-200 [facility] ([facility]) Cholesterol in HDL [Mass/volume] in Serum or Plasma 55 mg/dL 35-60 [facility] ([facility]) Cholesterol in LDL [Mass/volume] in Serum or Plasma by calcu lation 88 CALC 50-159 [facility] ([facility]) ID Date Data Source [id number] 05/04/2020 01:59:00 PM EDT [facility] ([facility]) Name Value Range Interpretation Code Description Data Melanie rce(s) Supporting Document(s) Glucose [Mass/volume] in Serum or Plasma 86 mg/dL 74-99 [facility] ([facility]) 100-125 mg/dL PRE-DIABETES/FASTING >126 mg/dL DIABETES/FASTING Urea nitrogen [Mass/volume] in Serum or Plasma 14 mg/dL 7-18 [facility] ([facility]) Creatinine 1.0 mg/dL 0.6-1.3 [facility] ([facility]) Sodium [Moles/volume] in Serum or Plasma 144 meq/L 136-145 [facility] ([facility]) Chloride [Moles/volume] in Serum or Plasma 105 meq/L 98-107 [facility] ([facility]) Potassium [Moles/volume] in Serum or Plasma 4.0 meq/L 3.5-5.1 [facility] ([facility]) Calcium [Mass/volume] in Serum or Plasma 9.9 mg/dL 8.5-10.1 [facility] ([facility]) Carbon dioxide, total [Moles/volume] in Serum or Plasma 36 meq/L 21 -32 [facility] ([facility]) Total Bilirubin 0.2 mg/dL 0.2-1.0 [facility] ([facility]) Alkaline phosphatase isoenzyme [Units/volume] in Serum or Pl asma 55 mg/dL 46-116 [facility] ([facility]) Aspartate aminotransferase [Enzymatic activity/volume] in Serum or Plasma 23 U/L 15-37 [facility] ([facility] ) Alanine aminotransferase [Enzymatic activity/volume] in Seru m or Plasma 26 U/L 12-78 [facility] ([facility]) Albumin [Mass/volume] in Serum or Plasma 3.7 g/dL 3.4-5.0 [facility] ([facility]) Proteinase 3 Ab [Units/volume] in Serum 7.7 g/dL 6.4-8.2 [facility] ([facility]) Glomerular filtration rate/1.73 sq M pre dicted among blacks [Volume Rate/Area] in Serum or Plasma by Creatinine-based formula (MDRD) Laboratory test result [facility] ([facility]) <content>CHRONIC KIDNEY DISEASE STAGING PER NKF</content>
<content></content>
<content>STAGE I & II GFR >= 60 NORMAL TO MILDLY DECREASED</content>
<content>STAGE III GFR 30-59 MODERATELY DECREASED</content>
<content>STAGE IV GFR 15-29 SEVERELY DECREASED</content>
<content>STAGE V GFR <15 VERY LITTLE GFR LEFT</content>
<content>ESRD GFR <15 ON REBAR BENDER</content>
<content></content> A/G Ratio 0.93 CALC 1.00-1.90 [facility]) Glomerular filtration rate/1.73 sq M pre dicted among non-blacks [Volume Rate/Area] in Serum or Plasma by Creatinine-based formula (MDRD) 56 mL/min [facility] ([facility]) ID Date Data Source [id number] 05/04/2020 01:59:00 PM EDT [facility] ([facility]) Name Value Range Interpretation Code Description Data Melanie rce(s) Supporting Document(s) Leukocytes [#/volume] in Blood by Automated count 5.8 x10*3/UL 4.1-10 .9 [facility] ([facility]) Hemoglobin [Mass/volume] in Blood 12.1 g/dL 12.0-18.0 [facility] ([facility]) Erythrocytes [#/volume] in Blood by Automated count 4.06 x10*6/UL 4.2 0-6.30 [facility] ([facility]) MCV 91.6 fL 80.0-97.0 [facility] ([facility]) Hematocrit [Volume Fraction] of Blood by Automated count 37.2 % 3 7.0-51.0 [facility] ([facility]) MCHC 32.6 g/dL 31.0-38.0 [facility] ([facility]) MCH 29.8 pg 26.0-32.0 [facility] ([facility]) Erythrocyte distribution width [Ratio] by Automated count 14.4 % 11.6-13.7 [facility] ([facility]) Platelets [#/volume] in Blood by Automated count 240 x10*3/UL 140-440 [facility] ([facility]) MPV 7.1 FL 7.8-11.0 [facility]) Lymph % 26.4 % 10.0-58.5 [facility] Mid % 7.1 % 1.7-9.3 [facility] Neut % 66.5 % 37.0-92.0 [facility] Neut # 3.8 x10*3/UL 2.0-7.8 [facility] ([facility]) Mid # 0.5 x10*3/UL 0.1-0.6 [facility] ([facility]) Lymph # 1.5 x10*3/UL 0.6-4.1 [facility] ([facility]) ID Date Data Source [id number] 04/23/2020 01:44:00 PM EDT [facility] ([facility]) Name Value Range Interpretation Code Description Data Melanie rce(s) Supporting Document(s) Lactate [Mass/volume] in Serum or Plasma 1.3 mmol/L 0.4-2.0 [facility] ([facility]) Y/N query for Sepsis Lactate Rule: Y ID Date Data Source [id number] 04/01/2020 06:10:00 AM EDT [facility] ([facility]) Name Value Range Interpretation Code Description Data Melanie rce(s) Supporting Document(s) Appearance, Urine RFX Laboratory test result [facility] ([facility]) Color, Urine RFX Laboratory test result [facility] ([facility]) PH,Urine RFX 8.0 units 5.0-9.0 [facility] ([facility]) Protein, Urine Auto RFX Laboratory test result [facility] ([facility]) Specific Harrah Ur Auto RFX 1.006 1.002-1.035 [facility] ([facility]) Ketone, Urine Auto RFX Laboratory test result [facility] ([facility]) Glucose, Urine (Ua) Auto RFX Laboratory test result [facility] ([facility]) Bilirubin, Urine Auto RFX Laboratory test result [facility] ([facility]) Urobilinogen, Urine Auto RFX 0.2 mg/dL 0.0-2.0 [facility] ([facility]) Leukocyte Esterase Ur Auto RFX Laboratory test result [facility] ([facility]) Nitrite, Urine Auto RFX Laboratory test result [facility] ([facility]) Blood, Urine Blood RFX Laboratory test result [facility] ([facility]) WBC, Urine Auto RFX 1 /HPF 0-3 [facility] ([facility]) Bacteria, Urine Auto RFX Laboratory test result [facility] ([facility]) RBC, Urine Auto RFX 2 /HPF 0-3 [facility] ([facility]) Squam Epithelial Cell Ur Aurfx 1 /HPF 0-6 [facility] ([facility]) Hyaline Cast, Urine Auto RFX 0 /LPF 0-1 M [facility] ([facility]) Amorphous Sediment RFX Laboratory test result [facility] ([facility]) Procedure Social History No Information Vital Signs ID Date Data Source UNK Name Value Range Interpretation Code Description Data Source(s) Systolic blood pressure 134 mm[Hg] 134 mm[Hg] [facility] ([facility]) Diastolic blood pressure 84 mm[Hg] 84 mm[Hg] [facility] ([facility]) Heart rate 87 /min 87 /min [facility] ([facility]) Oxygen saturation in Arterial blood by Pulse oximetry 93 % 93 % [facility] ([facility]) Body temperature 97.0 [degF] 97.0 [degF] [facility] ([facility]) Body height 59 [in_i] 59 [in_i] [facility] ([facility]) 4'11" Body weight 152.00 [lb_av] 152.00 [lb_av] [facility] ([facility]) Body mass index (BMI) [Ratio] 30.7 kg/m2 30.7 k g/m2 [facility] ([facility]) [place] body weight 100 [lb_av] 100 [lb_av] [facility] Body weight 68.947 kg 68.947 kg [facility] ([facility]) Body surface area Derived from formula 1.64 m2 1.64 m2 [facility] ([facility]) Systolic blood pressure 122 mm[Hg] 122 mm[Hg] M [facility] ([facility]) Diastolic blood pressure 80 mm[Hg] 80 mm[Hg] [facility] ([facility]) Heart rate 102 /min 102 /min [facility] ([facility]) Body height 59 [in_i] 59 [in_i] [facility] ([facility]) 4'11" Body weight 157.00 [lb_av] 157.00 [lb_av] [facility] ([facility]) Oxygen saturation in Arterial blood by Pulse oximetry 97 % 97 % [facility] ([facility]) Body mass index (BMI) [Ratio] 31.7 kg/m2 31.7 k g/m2 [facility] ([facility]) Body mass index (BMI) [Ratio] 31.5 kg/m2 31.5 k g/m2 [facility] ([facility]) Heart rate 94 /min 94 /min [facility] ([facility]) Body height 59 [in_i] 59 [in_i] [facility] ([facility]) 4'11" Body weight 156.00 [lb_av] 156.00 [lb_av] [facility] ([facility]) Oxygen saturation in Arterial blood by Pulse oximetry 96 % 96 % [facility] ([facility]) Systolic blood pressure 116 mm[Hg] 116 mm[Hg] M [facility] ([facility]) Diastolic blood pressure 72 mm[Hg] 72 mm[Hg] [facility] ([facility]) Heart rate 94 /min 94 /min [facility] ([facility]) Body height 59 [in_i] 59 [in_i] [facility] ([facility]) 4'11" Body weight 155.00 [lb_av] 155.00 [lb_av] [facility] ([facility]) Body mass index (BMI) [Ratio] 31.3 kg/m2 31.3 k g/m2 [facility] ([facility]) Oxygen saturation in Arterial blood by Pulse oximetry 96 % 96 % [facility] ([facility])
--- OUTSIDE RECORDS SUMMARY | 2021-05-26 10:09 | CCD ---
Author Author [facility] Organization [facility] Address Unknown Phone Unavailable Care Team Providers Care Snath Handle Assembler Name Role Phone MARK, F XAVIER DO [...] XAVIER DO Unavailable Unavailable Hospital Lab, Area [place] Unavailable Unavailable Serge Echeverria MD Unavailable Unavailable [...] is protected by Article 27-F of the [facility] Public Health law. If you continue you may have access to information: Regarding HIV / AIDS; Provided by facilities licensed or operated by the [facility] Office of Mental Health; or Provided by the [facility] Office for People With Developmental Disabilities. If such information is present, then the following [facility] mandated warning applies: This information [...] law may result in a fine or usp sentence or both. A general authorization for the release of medical or other information is NOT sufficient authorization for further disc losure. Family History Family Member Name Family Member Gender Family Member Status Date o f Status Description Data Source(s) Unknown Male Problem [facility] ([facility] () Unknown Female Problem [facility]) Unknown Female Problem [facility] ([facility]) Unknown Female Problem [facility] ([facility]) Encounters Encounter Providers Location Date Indications Data Source(s ) Emergency Attender: Serge Echeverria MDConsultant: Daisy CHENEY 03/04/2021 11:38:00 AM EDT - 03/04/2021 02:32:00 PM EDT [facility] Patient discharged. Emergency Attender: Serge Echeverria MDConsultant: Daisy RODRIGUEZ ANP 02/17/2021 07:58:00 AM EDT - 02/17/2021 10:25:00 AM EDT [facility] Patient discharged. Emergency Attender: XAVIER ROBERTSON DOConsultant: Daisy CHENEY 12/10/2020 05:37:00 AM EDT - 12/10/2020 07:15:00 AM EDT [facility] Patient discharged. Emergency Attender: KAREN SAUCEDO MDConsultant: Susan RODRIGUEZ ANP 12/01/2020 12:20:00 PM EDT - 12/01/2020 04:50:00 PM EDT [facility] Patient discharged. Outpatient Attender: [facility] 10/14/2020 12:0 4:00 AM EDT [facility] Emergency Attender: KAREN SAUCEDO MDConsultant: Susan RODRIGUEZ ANP 10/13/2020 11:01:00 PM EDT - 10/14/2020 04:24:00 AM EDT [facility] Patient discharged. Outpatient Attender: Daisy Craig 05/2021 01:40:00 PM EST [facility] ([facility] ) Emergency Attender: HENRI BOYLE MDConsultant: Daisy TREVINO ANP 07/01/2020 06:35:00 AM EST - 07/01/2020 07:46:00 AM EST [facility] Patient discharged. Outpatient Attender: Daisy Craig 01:45:00 PM EST [facility] ([facility] ) Outpatient Attender: Daisy Craig 02:45:00 PM EDT [facility] ([facility] ) Immunizations Vaccine Date Status Description Data Source(s) COVID-19 VACCINE [facility] 04/11/2021 12:00:00 AM EDT completed [facility] Vaccine Series Complete: YESThis Data wa s Submitted to [facility]. COVID-19 VACCINE Pfizer 03/21/2021 12:00:00 AM EDT completed [facility] Vaccine Series Complete: NOThis Data was Submitted to [facility]. Influenza, injectable, MDCK, preservative free, stefania valent 05/01/2020 02:55:00 PM EDT completed [facility] ([facility]) Medications Medication Brand Name Start [...] UP TO 10 A DAY SOLD: 05/01/2021 [facility] 23 X 36 " 03/06/2021 12:00:00 [...] DAY FOR 7 DAYS SOLD: 12/26/2020 [email or web address] Ondansetron 4 MG Disintegrating Oral Tablet [...] Antacid 11/07/2020 12:00:00 AM EDT active [facility] ([facility]) 30 mg 11/07/2020 12:00:00 AM EDT [...] 09/20/2020 12:00:00 AM EST ORAL active [facility] ([facility]) 2.5-0.025 mg 09/12/2020 12:00:00 AM [...] 09/05/2020 12:00:00 AM EST active [facility] 1 gram 09/05/2020 12:00:00 AM EST [...] DAILY DOSE = 9 TABLETS SOLD: 03/07/2021 [facility] 1 gram 09/05/2020 12:00:00 AM EST tablet 180 TAKE THREE TABLETS BY MOUTH TWICE A DAY MAY INCREASE DURING EPISODES OF EXTREME DIARRHEA MAXIMUM DAILY DOSE = 9 TABLETS TAKE THREE TABLETS BY MOUTH TWICE A DAY MAY INCREASE DURING EPISODES OF EXTREME DIARRHEA MAXIMUM DAILY DOSE = 9 TABLETS SOLD: 11/28/2020 [facility] olanzapine 5 MG Oral Tablet OLANZAPINE 09/03/2020 12:00:00 AM EST tabl et 60 TAKE ONE TABLET BY MOUTH THREE TIMES A DAY TAKE ONE TABLET BY MOUTH THREE TIMES A DAY SOLD: 02/06/2021 [facility] 25 mg 09/03/2020 12:00:00 AM EST tablet 30 TAKE ONE TABLET BY MOUTH EVERY DAY (BENADRYL) TAKE ONE TABLET BY MOUTH EVERY DAY (BENADRYL) SOLD: 09/05/2020 [facility] olanzapine 5 MG Oral Tablet OLANZAPINE 09/03/2020 12:00:00 AM EST tabl et 90 TAKE ONE TABLET BY MOUTH THREE TIMES A DAY TAKE ONE TABLET BY MOUTH THREE TIMES A DAY SOLD: 10/03/2020 [facility] olanzapine 5 MG Oral Tablet OLANZAPINE 09/03/2020 12:00:00 AM EST tabl et 90 TAKE ONE TABLET BY MOUTH THREE TIMES A DAY TAKE ONE TABLET BY MOUTH THREE TIMES A DAY SOLD: 11/07/2020 [facility] olanzapine 5 MG Oral Tablet [...] MOUTH TWICE A DAY NEEDED SOLD: 11/07/2020 [facility] Cyclobenzaprine hydrochloride 10 MG Oral Tablet CYCLOBENZAPR [...] DIAPER,BRIEF,ADULT, DISPOSABLE 05/07/2020 12:00:00 AM EDT [facility] 240 CHANGE NEEDED UP TO 8 TIMES A DAY CHANGE NEEDED UP TO 8 TIMES A DAY SOLD: 06/06/2020 [facility] DIAPER,BRIEF,ADULT, DISPOSABLE 05/07/2020 12:00:00 AM EDT [facility] 234 CHANGE NEEDED UP TO 8 TIMES [...] Drugs DIAPER,BRIEF,ADULT, DISPOSABLE 05/07/2020 12:00:00 AM EDT [facility] 234 CHANGE NEEDED UP TO 8 TIMES [...] 04/04/2020 12:00:00 AM EDT active M [facility] ([facility]) olanzapine 2.5 MG Oral Tablet OLANZAPINE [...] Information Medicare Natl Govt Servic Medicare Primary [id number] Self 0 [id number] Medicare Natl Govt Servic Medicare Primary [id number] Self 0 [id number] Medicare Natl Govt Servic Medicare Primary [id number] Self 4 [id number] Medicare Natl Govt Servic Medicare Primary [id number] Self 0 [id number] Medicare Natl Govt Servic Medicare Primary [id number] Self [id number] Medicare - NGS Medicare Primary [id number] Self [id number] Medicare Natl Govt Servic Medicare Primary [id number] Self Medicare Natl Govt Servic Medicare Primary [id number] Self 4 [id number] Medicare - NGS Medicare Primary [id number] Self [id number] Medicare Natl Govt Servic Medicare Primary [id number] Self 4 [id number] Medicare Natl Govt Servic Medicare Primary [id number] Self 0 [id number] A Medicare Natl Govt [facility] Medicare Primary [id number] Self 4 [id number] BS [facility] Medigap Part B [id number] Self MEDICARE [id number] SP [id number] A75 BS [place] Medigap Part B [id number] Self [id number] BS [place] Commercial [id number] Self [id number] MEDICARE [id number] SP [id number] [place] Primary [id number] Self [place] Medig[place] Part B [id number] Self MEDICAID [id number] SP [id number] [facility] [id number] 0.0 Self [id number] MEDICAID M [id number] S [id number] MEDICAID [id number] SP [id number] ANSI-Medicare Part B [id number] ANSI-Medicaid [id number] ANSI-Medicare Part B [id number] ANSI-Medicaid [id number] ANSI-Medicare Part B [id number] ANSI-Medicaid [id number] ANSI-Medicare Part B [id number] ANSI-Medicaid [id number] ANSI-Medicaid [id number] ANSI-Medicare Part B [id number] MEDICARE [id number] SP [id number] ANSI-Medicare Part B [id number] ANSI-Medicaid [id number] Medicaid Medigap Part B [id number] 0.0 Self [id number] [place] Part [place] [id number] [id number] Self [id number] ANSI-Medicaid [id number] ANSI-Medicare Part B [id number] ANSI-Medicare Part B [id number] ANSI-Medicaid [id number] MEDICARE C [id number] S [id number] A Medicaid Medigap Part B [id number] 0.0 Self [id number] Medicaid Medigap Part B [id number] 0.0 Self [id number] Medicaid Medigap Part B [id number] 0.0 Self [id number] Medicaid Medigap Part B [id number] 0.0 Self [id number] [facility] [id number] S [id number] MEDICARE [id number] SP [id number] [place] Medigap Part B [id number] Self Medicaid Medigap Part B [id number] Self 1 1 BS [place] Medigap Part B [id number] Self [id number] BS [place] Medigap Part B [id number] Self [place] 306/806 NOT ACTIVE SP NOT ACTIVE SELF PAY UNAVAILABLE SP UNAVAILA BLE [place] 306/806 [id number] SP [id number] [place]CE[place] BCBS S [id number] S [id number] [place] P[place] 302/307 [id number] SP [id number] [place] [id number] SP [id number] Y [id number] MEDICARE PART A -O/P [id number] 18 [id number] MEDICAID -O/P EMERGENCY ROOM [id number] EMEDNY [id number] SP [id number] MEDICARE C [id number] S [id number] MEDICARE PART A -O/P [id number] 18 [id number] MEDICARE PART A -O/P [id number] 18 [id number] Medicaid Medigap Part B [id number] Self [id number] [place] Medigap Part B [id number] Self [id number] Medicaid Medigap Part B [id number] 0.0 Self [id number] [place] Med[place] Part B [id number] 5585.0 Self [id number] [place] Medigap Part B [id number] Self [id number] [id number] MEDICARE [id number] SP [id number] Medicaid Medigap Part B [id number] 0.0 Self [id number] ANSI-Medicare Part B [id number] ANSI-Medicaid [id number] ANSI-Medicaid [id number] ANSI-Medicare Part B [id number] ANSI-Medicaid [id number] ANSI-Medicare Part B [id number] Problems, Conditions, and Diagnoses Code Display Name Description Problem Type Effective Dates Data Source(s) D99970 Presence of unspecified artificial hip j oint Presence of unspecified artificial hip joint Diagnosis 03/04/2021 11:38:00 AM EDT [facility] H44684 Personal history of nicotine dependence Personal history of nicotine dependence Diagnosis 03/04/2021 11:38:00 AM EDT [facility] Z7901 halfway (current) use of a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 halfway (current) use of a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 Diagnosis 03/04/2021 11:38:00 AM EDT [facility] E119 Type 2 diabetes mellitus without complic ations Type 2 diabetes mellitus without complications Diagnosis 03/04/2021 11:38:00 AM EDT [facility] I10 Essential (primary) hypertension Essential (primary) h ypertension Diagnosis 03/04/2021 11:38:00 AM EDT [facility] K5900 Constipation, unspecified Constipation, unspecified Di agnosis 03/04/2021 11:38:00 AM [facility] N3000 Acute cystitis without hematuria Acute cystitis without hematuria Diagnosis [facility] ulcer of other site, unspecifie d stage Pressure ulcer of other site, unspecified stage Diagnosis 02/17/2021 07:58:00 AM [facility] X91541 Pain in right foot Pain in right foot [facility] Other chronic pain Other chronic pain Diagnosis 05:37:00 AM [facility] P02886 Pain in right ankle and joints of right foot Pain in right ankle and joints of right foot Diagnosis 12/10/2020 05:37:00 AM [facility] R300 Dysuria Dysuria Diagnosis 12/10/2020 05:37:00 AM ED [facility] R1312 Dysphagia, oropharyngeal phase Dysphagia, oropharyngea l phase Diagnosis 12/01/2020 12:20:00 PM [facility] J029 Acute pharyngitis, unspecified Acute pharyngitis, unsp ecified Diagnosis 12/01/2020 12:20:00 PM [facility] D82551 Unspecified asthma, uncomplicated Unspecified as thma, uncomplicated Diagnosis 10/13/2020 11:01:00 PM [facility] M419 Scoliosis, unspecified Scoliosis, unspecified Diagnosi s 10/13/2020 11:01:00 PM [facility] N3001 Acute cystitis with hematuria Acute cystitis with ilda turia Diagnosis 10/13/2020 11:01:00 PM [facility] R05 Cough Cough Diagnosis 10/13/2020 11:01:00 PM ED [facility] J40178 Personal history of urinary (tract) infe ctions Personal history of urinary (tract) infections Diagnosis 07/01/2020 06:35:[address] 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 ID Date Data Source [id number] 04/22/2021 08:18:00 AM EDT [facility] Name Value Range Interpretation Code Description Data Melanie rce(s) Supporting Document(s) SARS-CoV-2 (COVID 19) NEGATIVE - SARS-CoV-2 (COVID19) [facility] This lab was ordered by [facility] a nd reported by [facility]. ID Date Data Source [id number] 03/04/2021 11:38:00 AM EDT [facility] 1 OrderSheet [facility] Emergency Department [address] [place] [address] Phone #: ext- [phone] 03/04/2021 11:37 Patient: FABIANO RAMIREZ Sex: F : 1955 Age: 65yWEIGHT:77.1 kg (S) HEIGHT:59 inches (S) BMI:34.4ALLERGIES: Darvacet, Demerol, MicrodentinCHIEF COMPLAINT: abd pain, constipationDIAGNOSIS: ConstipationLAB ORDERSOrder Description Priority Entered Acknowledged InitialedDIAGNOSTIC STUDY ORDERSOrder Description Priority Entered Acknowledged InitialedAbdomen Multiview STAT 13:02 03/04/2021 13:03 Daquan(Oxygen?(No)) Anita Fuentes student advisor, Julio TREVINO PA; Tech1 Reason for Study: constipation, lower abd painMEDICATION/IV/DRIP/FLUID ORDERSOrder Description Priority Entered Acknowledged InitialedGENERAL ORDERSOrder Description Priority Entered Acknowledged Initialed[Electronically signed by So Ladd R.N. (14:35 03/04/2021)][Electronically signed by Anita Fuentes (07:30 03/05/2021)][Electronically locked by Tyler Ladd R.N. (14:35 03/04/2021)] Name Value Range Interpretation Code Description Data Melanie rce(s) Supporting Document(s) ID Date Data Source [id number] 03/04/2021 11:38:00 AM EDT [facility] 1 Medication Reconciliation Report [facility] Emergency Department [address] [place] [address] Phone #: ext- [phone] 03/04/2021 11:37 Patient: [...] the Emergency Department: 2 Medication Reconciliation Report [facility] Emergency Department [address] [place] [address] Phone #: ext [phone] 03/04/2021 11:37 Patient: FABIANO RAMIREZ Sex: F : 1955 Age: 65yNone.The following Medications were prescribed to the patient:None. Name Value Range Interpretation Code Description Data Melanie rce(s) Supporting Document(s) ID Date Data Source [id number] 03/04/2021 11:38:00 AM EDT [place] [address] Medication Administration Record [facility] Emergency Department [address] [place] [address] Phone #: ext [phone] 03/04/2021 11:37 Patient: FABIANO RAMIREZ Sex: F : 1955 Age: 65yWeight: 77.1 kgHeight/Length: 59 inBMI: 34.4ALLERGIES: Darvacet, Microdentin, DemerolDate/Time Medication Administered Medication Ordered Name Value Range Interpretation Code Description Data Melanie rce(s) Supporting Document(s) ID Date Data Source [id number] 03/04/2021 11:38:00 AM EDT [facility] 1 General Instructions [facility] Emergency Department [address] [place] [address] Phone #: ext- [phone] 03/04/2021 11:37 Patient: FABIANO RAMIREZ Sex: F [...] by patient. ADDITIONAL INFORMATION 2 General Instructions [facility] Emergency Department [address] [place] [address] Phone #: ext- [phone] 03/04/2021 11:37 Patient: FABIANO RAMIREZ Sex: F [...] aging, work, and travel 3 General Instructions [facility] Emergency Department [address] [place] [address] Phone #: ext- [phone] 03/04/2021 11:37 Patient: [...] you can't pass Bowel obstruction or perforationHome [facility] hospitalAll treatment should be done after talking with [...] your healthcare provider first. 4 General Instructions [facility] Emergency Department [address] [place] [address] Phone #: ext- [phone] 03/04/2021 11:37 Patient: [...] have more tests or see a specialist.Call [facility] if any of these occur: Trouble breathing Stiff, rigid abdomen that is severely painful to touch Confusion Fainting or loss of consciousness Rapid heart rate Chest painWhen to seek medical adviceCall your healthcare provider right away if any of these occur: Fever of 100.4F (38C) or higher, or as directed by your healthcare provider 5 General Instructions [facility] Emergency Department [address] [place] [address] Phone #: ext- [phone] 03/04/2021 11:37 Patient: FABIANO RAMIREZ Sex: F : 1955 Age: 65y Failure to resume normal bowel movements Pain in your abdomen or back gets worse Nausea or vomiting Swelling in your abdomen Blood in the stool Black, tarry stool Involuntary weight loss Weakness 5584-6134 [employer]. [address] [place] [address]. All rights reserved. This information is not [...] high in fiber 6 Genera l Instructions [facility] Emergency Department [address] [place] [address] Phone #: ext- [phone] 03/04/2021 11:37 Patient: FABIANO RAMIREZ Sex: F [...] green peas, celery, eggplant, potatoes, spinach, broccoli, Pine sprouts, winter squash, carrots, cauliflower, soybeans, lentils, and fresh and dried beans of all kinds. Other. Popcorn; any spicesIf you have diverticulosisThere aren't any specific foods to avoid if you have diverticulosis. But each person is different. Theremay be some foods that make your symptoms worse. Keep track and don't eat foods that make youfeel worse. 2485-9236 [employer]. [address] [place] [address], [place] [address]. All rights reserved. This information is not intended as asubstitute for professional medical care. Always follow your health careers adviser's instructions. You have been given the following additional information: Constipation (Adult) High-Fiber Diet(Electronically signed by EMRE Puga 03/05/2021 07:30) Name Value Range Interpretation Code Description Data Melanie rce(s) Supporting Document(s) ID Date Data Source [id number] 03/04/2021 11:38:00 AM EDT [facility] 1 Clinical Report - Nurses [facility] Emergency Department [address] [place] [address] Phone #: ext- [phone] 03/04/2021 11:37 Patient: FABIANO RAMIREZ Sex: F : 1955 Age: 65yTRIAGEArrived by EMS. Historian: patient. Unaccompanied.Triage time: late entry - 11:34 03/04/2021. Acuity: LEVEL 3.Chief Complaint: ABDOMINAL PAIN and CONSTIPATION.Alert. No acute distress.Onset. (1 weeks ago). ( Pt hasnt had a normal BM in about a week. Pt was seen at [facility] yesterday andwas unable to tolerate a CT scan. She had a small BM 2 days ago. Pt has c/o of abd pain with a burningsensation.). 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 SEPSIS SCREEN NEGATIVE. [...] Ladd R.N.Darvacet. 2 Clinical Report - Nurses [facility] Emergency Department [address] [place] [address] Phone #: ext- [phone] 03/04/2021 11:37 Patient: [...] "Do you 3 Clinical Report - Nurses [facility] Emergency Department [address] [place] [address] Phone #: ext- [phone] 03/04/2021 11:37 Patient: [...] Ladd R.N. 4 Clinical Report - Nurses [facility] Emergency Department [address] [place] [address] Phone #: ext- [phone] 03/04/2021 11:37 [id number] Sex: F : 1955 Age: 65y Rounding: Personal care / toileting: assisted with toileting. --13:49 03/04/21 So Ladd R.N. late entry - 14:00 03/04/21. ( Pt had a moderate BM, PA aware). --14:35 03/04/21 So Ladd R.N.DISPOSITION / DISCHARGE 14:19 03/04/21. BP: 112/65. HR: 82. RR: 18. O2 saturation: 98%. Temp: 98.2 F. Pain level now 5/10. --14:19 03/04/21 [facility] Tech, BELINDA Kim Tech1 late entry - 14:32 03/04/21. Departure time: 14:32 03/04/2021. Howard Coma Scale: 15- eyes open- spontaneous (4); best verbal response- oriented (5); best motor response- obeys commands (6). Condition at departure: improved and stable. No learning barriers present. Discharge instructions provided and reviewed with the patient. Reviewed warnings. Reviewed referral to a primary care physician for followup. Patient verbalized understanding. Written instructions provided in Palauan. The patient was discharged by the physician education assistant. She was discharged home and unaccompanied at time of discharge. She left ambulatory and via taxi. 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 --14:34 03/04/21 So Ladd R.N.Locked/Released at 03/04/2021 14:35 by So Ladd R.N. Name Value Range Interpretation Code Description Data Melanie rce(s) Supporting Document(s) ID Date Data Source [id number] 03/04/2021 11:38:00 AM EDT [facility] 1 Clinical Report - Physicians/Mid Levels [facility] Emergency Department [address] [place] [address] Phone #: ext- [phone] 03/04/2021 11:37 [facility]: [id number] Sex: F : 1955 Age: 65y Time [...] bed and bathroom." She was seen at [facility] yesterday but was unable to tolerate [...] seen recently by a health care provider ([facility] ED yesterday).REVIEW OF SYSTEMSNo chills, fatigue, [...] Repair. 2 Clinical Report - Physicians/Mid Levels [facility] Emergency Department [address] [place] [address] Phone #: ext- [phone] 03/04/2021 11:37 Patient: [...] 3. 3 Clinical Report - Physicians/Mid Levels [facility] Emergency Department [address] [place] [address] Phone #: ext- [phone] 03/04/2021 11:37 Patient: FABIANO RAMIREZ Sex: F : 1955 Age: 65yLABS, X-RAYS, AND EKGLaboratory Tests: Laboratory tests have been ordered, with results reviewed and considered in themedical decision making process. Abdomen Multiview: (OLE: 03/04/2021 13:02) ( MsgRcvd 03/04/2021 15:03) Final results Exam [place] [address] PHONE: [phone] FAX: [phone] Name .................. : CANDIDO MARIO Acct Number.................. : [id number] ROOM. ................. : TR-03 MR Number ................... : [id number] Stay type ............. : E/R Discharge Date......... ... : Admit Date ......... : 03/04/21 Admit Phys .................... : IRMA Stallings Date of ....... : 1955 Family Phys ................... : JENNY GARCIA Phone .................. : [phone] Age ................................ : 65 Film# .................. .:[id number] Sex ................................. : F Unsigned transcriptions are preliminary reports and do not represent a medical or legal document ABDOMEN MULTIPLE VIEW 60526 COMPLETE:03/04/21 13:02 Reason(s): constipation, lower abd pain [...] REC 4 Clinical Report - Physicians/Mid Levels [facility] [place] [address] Phone #: ext- [phone] 03/04/2021 11:37 Patient: FABIANO RAMIREZ [facility] [id number] Sex: F : 1955 Age: 65y Page [...] packet. 5 Clinical Report - Physicians/Mid Levels [facility] Emergency Department [address] [place] [address] Phone #: ext- [phone] 03/04/2021 11:37 Patient: FABIANO RAMIREZ Sex: F : 1955 Age: 65y Motrin IB Oral : 400, prn. Potassium Chloride Oral : Packet 20 meq, 2x a day. Promethazine HCl Oral : Tablet 25 mg, prn. Sudafed Oral : 60 mg 2x a day. ZyPREXA Oral : Tablet 10 mg, at bedtime. Follow-up: Follow up with your [facility] provider Daisy Rodriguez NP Friday. Call for an appointment. Reason for referral: evaluation and treatment. Summary of care provided to patient via paper. Understanding of the discharge instructions verbalized by patient.(Electronically signed by EMRE uPga 03/05/2021 07:30) Name Value Range Interpretation Code Description Data Melanie rce(s) Supporting Document(s) ID Date Data Source [id number] 03/04/2021 03:03:00 [place] [address] PHONE: [phone] FAX: [phone] Name .................. : CANDIDO MARIO Acct Number.................. : [id number] ROOM. ................. : TR-03 MR Number ................... : [id number] Stay type ............. : E/R Discharge Date......... ... : Admit Date ......... : 03/04/21 Admit Phys .................... : IRMA Stallings Date of ....... : 1955 Family Phys ................... : JENNY NAN Phone .................. : [phone] Age ................................ : 65 Film# .................. .:[id number] Sex ................................. : F Unsigned transcriptions are preliminary reports and do not represent a medical or legal document ABDOMEN MULTIPLE VIEW 22278 COMPLETE:03/04/21 13:02 Reason(s): constipation, lower abd pain [...] rce(s) Supporting Document(s) ID Date Data Source [id number] 02/19/2021 09:47:00 AM EDT [facility] [address] [place] [address] PHONE: [phone] FAX: [phone] Name .................. : CANDIDO MARIO Acct Number.................. : [id number] ROOM. ................. : TR-02 Number ................... : [id number] Stay type ............. : E/R Discharge Date......... ... : 02/17/21 Admit Date ......... : 02/17/21 Admit Phys .................... : IRMA Stallings Date of ....... : 1955 Family Phys ................... : JENNY [employer] Phone .................. : [phone] Age ................................ : 65 Film# .................. .:[id number] Sex ................................. : F Unsigned transcriptions are preliminary reports and do not represent a medical or legal document [place] [id number] COMPLETE:02/17/21 08:31 53966 Reason(s): Pain RIGHT TOE SERIES: FINDINGS: Amputation of the michelle of the second and third digits noted. No other abnormalities. 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 Electronically Reviewed and Signed By NIGEL LEVINE MD , 02/19/21 09:47, [facility] Transcribe Initials: DZ , Transcribe Date: 02/17/21 11:42, Dictation Date: Copy for: EMERGENCY DEPT via pauldenm Copy for: 710 MED REC DISCHARGED Page 1 of 1 Name Value Range Interpretation Code Description Data Melanie rce(s) Supporting Document(s) ID Date Data Source [id number] 02/17/2021 07:58:00 AM EDT [facility] 1 OrderSheet [facility] Emergency Department [address] [place] [address] Phone #: ext- [phone] 02/17/2021 07:54 Patient: [...] R 10:13 02/17/2021 10:15 Serge Resendez ; student advisorJulio Mendieta ER Tech1[Electronically signed by Naresh Guzman RN (10:25 02/17/2021)][Electronically signed by Serge Echeverria (11:03 02/17/2021)][Electronically locked by Naresh Guzman RN (10:25 02/17/2021)] Name Value Range Interpretation Code Description Data Melanie rce(s) Supporting Document(s) ID Date Data Source [id number] 02/17/2021 07:58:00 AM EDT [facility] 1 Medication Reconciliation Report [facility] Emergency Department [address] [place] [address] Phone #: ext- [phone] 02/17/2021 07:54 Patient: [...] the Emergency Department: 2 Medication Reconciliation Report [facility] Emergency Department [address] [place] [address] Phone #: ext [phone] 02/17/2021 07:54 Patient: FABIANO RAMIREZ Sex: F : 1955 Age: 65yNone.The following Medications were prescribed to the patient:Bactrim DS 800 mg-160 mg tablet Take 1 tablet twice a day for 7 days -- Dispense 14 tablet. Refills: 0.Substitution permitted.Pharmacy - [facility] - [address] [facility] ; [place] [address]. . -- Serge Echeverria Name Value Range Interpretation Code Description Data [facility](s) Supporting Document(s) ID Date Data Source [id number] 02/17/2021 07:58:00 AM EDT [facility] 1 Medication Administration Record [facility] Emergency Department [address] [place] [address] Phone #: ext [phone] 02/17/2021 07:54 Patient: FABIANO RAMIREZ Sex: F : 1955 Age: 65yWeight: 67.8 kgHeight/Length: 59 inBMI: 30.2ALLERGIES: Darvacet, Demerol, MicrodentinDate/Time Medication Administered Medication Ordered Name Value Range Interpretation Code Description Data Melanie rce(s) Supporting Document(s) ID Date Data Source [id number] 02/17/2021 07:58:00 AM EDT [facility] 1 General Instructions [facility] Emergency Department [address] [place] [address] Phone #: ext- [phone] 02/17/2021 07:54 Patient: [...] Dispense 14 tablet. Refills: 0.Substitution permitted.Pharmacy - [facility] - [address] [facility] ; [place] [address]. .Follow-up:Follow up with your healthcare provider.Understanding of the discharge instructions verbalized by patient. 2 General Instructions [facility] Emergency Department [address] [place] [address] Phone #: ext- [phone] 02/17/2021 07:54 Patient: FABIANO RAMIREZ Sex: F [...] a bladder infection are: 3 General Instructions [facility] Emergency Department [address] [place] [address] Phone #: ext- [phone] 02/17/2021 07:54 Patient: [...] Fluid loss (dehydration) Constipation 4 General Instructions [facility] Emergency Department [address] [place] [address] Phone #: ext- [phone] 02/17/2021 07:54 Patient: [...] can irritate your bladder. 5 General Instructions [facility] Emergency Department [address] [place] [address] Phone #: ext- [phone] 02/17/2021 07:54 Patient: [...] if the results will affect your treatment.Call [phone] [phone] if any of the following occur: Trouble [...] in the outer vaginal area (labia) [employer]. [address] [place] [address]. All rights reserved. This information is not intended as asubstitute for professional medical care. Always follow your healthcare professional's instructions. 6 General Instructions [facility] Emergency Department [address] [place] [address] Phone #: ext- [phone] 02/17/2021 07:54 Patient: FABIANO RAMIREZ Sex: F : 1955 Age: 65yYou have been given the following additional information:Bladder Infection, Female (Adult)(Electronically signed by Serge Echeverria 02/17/2021 11:03) Name Value Range Interpretation Code Description Data Melanie rce(s) Supporting Document(s) ID Date Data Source [id number] 02/17/2021 07:58:00 AM EDT [facility] 1 Clinical Report - Nurses [facility] Emergency Department [address] [place] [address] Phone #: [phone] ext [phone] 02/17/2021 07:54 Patient: FABIANO RAMIREZ Sex: F : 1955 Age: 65yTRIAGEArrived by EMS. Historian: patient.Acuity: LEVEL 4.Chief Complaint: RIGHT LOWER EXTREMITY PAIN.No injury occurred. Onset. (2 weeks ago). ( Pt states she has had right lower extremity pain for about thepast 2 weeks, she was seen here more than a couple weeks ago and an air splint was applied, she went [facility] yesterday and was released, she reports continued pain and now feels nausea).Treatment VENEER JOINTER HELPER:None.EMS Treatment VENEER JOINTER HELPER:EMS treatment verbally communicated and report reviewed. See [...] a day. 2 Clinical Report - Nurses [facility] Emergency Department [address] [place] [address] Phone #: ext- [phone] 02/17/2021 07:54 Patient: FABIANO RAMIREZ Sex: F [...] Guzman RN. 3 Clinical Report - Nurses [facility] Emergency Department [address] [place] [address] Phone #: tit- [phone] 02/17/2021 07:54 Patient: FABIANO RAMIREZ Sex: F [...] Patient verbalized understanding. Written instructions provided in Palauan. The patient was discharged by the physician. [...] rce(s) Supporting Document(s) ID Date Data Source [id number] 02/17/2021 07:58:00 AM EDT [facility] 1 Clinical Report - Physicians/Mid Levels [facility] Emergency Department [address] [place] [address] Phone #: ext- [phone] 02/17/2021 07:54 Patient: FABIANO RAMIREZ Sex: F [...] No trauma. She states the ED at [facility] just wraps her toes, she thinks they wrapped it too tight. She wears a air cast and walks with a walker at home.). Patient denies an injury. Similar symptoms previously. Recent medical care: The patient was seen recently in the emergency department. ( Multiple times at [facility] for urinary complaints).REVIEW OF SYSTEMSNo chest [...] Normal inspection. 2 Clinical Report - Physicians/Mid [facility] Emergency Department [address] [place] [address] Phone #: ext- [phone] 02/17/2021 07:54 Patient: FABIANO RAMIREZ Sex: F [...] UA done over last several months at [facility]. Not currently on antibiotics 3 Clinical Report - Physicians/Mid Levels [facility] Emergency Department [address] [place] [address] Phone #: ext- [phone] 02/17/2021 07:54 Patient: FABIANO RAMIREZ Sex: F [...] tablet. Refills: 0. Substitution permitted. Pharmacy - [facility] - [address] [facility] ; [place] [address]. . 4 Clinical Report - Physicians/Mid Levels [facility] Emergency Department [address] [place] [address] Phone #: ext- [phone] 02/17/2021 07:54 Patient: LETTIERE, FABIANO Sex: F : 1955 Age: 65y Follow-up: Follow up with your healthcare provider. Understanding of the discharge instructions verbalized by patient.(Electronically signed by Serge Echeverria 02/17/2021 11:03) Name Value Range Interpretation Code Description Data Melanie rce(s) Supporting Document(s) ID Date Data Source [id number] 02/20/2021 07:22:00 AM EDT [facility] Name Value Range Interpretation Code Description Data Melanie rce(s) Supporting Document(s) CULTURE URINE [facility] spital _CULTURE URINE_$$[id number]$$781863$$402196$$674442$$668900$$810160$$816417$$467447$$352370$$ 140431$$561342$$112776$$983765$$070255$$052874$$002808$$167258$$454828$$664165$$ 135485$$996644$$304527$$589746$$981027$$334125$$287379$$521140 -- Continued on next page --Patient: CANDIDO MARIO Order: [id number] Page 2Culture: CULTURE URINE Status: Final ====$$[id number]$$[id number] DATE/TIME: 02/19/2021 08:06Culture: CULTURE URINE Status: FinalUrine Culture,Comprehensive: D6Shlwu urogenital flora25,000-50,000 colony forming units per mLP1 Test performed by: [facility] Janel HURTADO #: [id number] [address] [place] [id number] [facility] [id number] Director : Ross Jeffers MD NPI #:Elevating Grader Operator : 02/20/[email or web address].SENT REF ID Date Data Source [id number] 02/17/2021 09:31:00 AM EDT [facility] Name Value Range Interpretation Code Description Data Melanie rce(s) Supporting Document(s) [facility] SOURCE R [facility] Hospit al COLOR yellow NORMAL: Yellow [facility]spital CLARITY hazy NORMAL: Clear [facility] Ho spital Specific gravity of Urine by Test strip 1.015 1.001 - 1.030 [facility] pH 8 5 - 9 [facility] Glucose [Mass/volume] in Urine by Test strip NORM NORMAL: Negat [facility] Bilirubin.total [Presence] in Urine by Test strip NEG NORMAL: Negative [facility] Ketones [Presence] in Urine by Test strip NEG NORMAL: Negative [facility] Protein [Mass/volume] in Urine by Test strip NEG NORMAL: Negat [facility] Nitrite [Presence] in Urine by Test strip NEG NORMAL: Negative [facility] BLOOD 25 NORMAL: Negative [facility] LEUK EST 100 NORMAL: Negative [facility] Urobilinogen [Mass/volume] in Urine by Test strip NOR less deanna n 1.0 mg/dL [facility] MICROSCOPIC See Below [facility] ital WBC 10 - 15 NORMAL: NONE SEEN A [facility] Erythrocytes [#/volume] in Urine by Test strip 15 - 20 NORMAL: NON E SEEN A [facility] EPITHELIAL MODERATE NORMAL: NONE SEEN A [facility] Bacteria [Presence] in Urine sediment by Light microscopy 1+ SMALL NORMAL: NONE SEEN [facility] Amorphous sediment [Presence] in Urine sediment by Light yong roscopy 2+ NORMAL: NONE SEEN [facility] Crystals [type] in Urine sediment by Light microscopy See Below [facility] TRIPLE PHOS 3+ NORMAL: NONE SEEN A [facility] ID Date Data Source [id number] 12/10/2020 05:37:00 AM EDT [facility] 1 OrderSheet [facility] Emergency Department [address] [place], [place] [address] Phone #: ext- [phone] 12/10/2020 05:37 Patient: [...] rce(s) Supporting Document(s) ID Date Data Source [id number] 12/10/2020 05:37:00 AM EDT [facility] 1 Medication Reconciliation Report [facility] Emergency Department [address] [place] [address] Phone #: ext- [phone] 12/10/2020 05:37 Patient: [...] Emergency Department: 2 Medication Re conciliation Report [facility] Emergency Department [address] [place] [address] Phone #: ext- [phone] 12/10/2020 05:37 Patient: FABIANO RAMIREZ Sex: F : 1955 Age: 65yMacrobid [PO] PO 100 mg, administered: 07:11 12/10/2020The following Medications were prescribed to the patient:Macrobid 100 mg capsule Take 1 capsule twice a day for 7 days -- Dispense 14 capsule. Refills: 0.Substitution permitted.Pharmacy - [facility] - [address] [facility] ; [place] [id number]. . -- Physician Sergio Name Value Range Interpretation Code Description Data Melanie rce(s) Supporting Document(s) ID Date Data Source [id number] 12/10/2020 05:37:00 AM EDT [facility] 1 Medication Administration Record [facility] Emergency Department [address] [place] [address] Phone #: [phone] bbw- [phone] 12/10/2020 05:37 Patient: FABIANO RAMIREZ Sex: F : 1955 Age: 65yWeight: 68.0 kgHeight/Length: 59 inBMI: 30.3ALLERGIES: Darvacet, Demerol, Microdentin Date/Time Medication Administered Medication OrderedGiven MACROBID [PO] (NITROFURANTOIN Macrobid PO 100 mg (NOW)07:11 12/10/2020 MONOHYD MACRO)Roxanne Lerner R.N. Dose: 100 mg PO Name Value Range Interpretation Code Description Data Melanie rce(s) Supporting Document(s) ID Date Data Source [id number] 12/10/2020 05:37:00 AM EDT [facility] 1 General Instructions [facility] Emergency Department [address] [place] [address] Phone #: ext- [phone] 12/10/2020 05:37 Patient: [...] Dispense 14 capsule. Refills: 0.Substitution permitted.Pharmacy - [facility] - [address] [facility] ; [place] [address]. .Follow-up:Follow up with your healthcare provider in three days for staple removal. Call for an appointment. Summaryof care provided to patient via paper.Understanding of the discharge instructions verbalized. ADDITIONAL INFORMATIONBladder Infection, Female (Adult) 2 General Instructions [facility] Emergency Department [address] [place] [address] Phone #: ext- [phone] 12/10/2020 05:37 Patient: FABIANO RAMIREZ Sex: F [...] Urgent need to urinate 3 General Instructions [facility] Emergency Department [address] [place] [address] Phone #: ext- [phone] 12/10/2020 05:37 Patient: [...] a diaphragm for controlTreatment 4 General Instructions [facility] Emergency Department [address] [place] [address] Phone #: ext- [phone] 12/10/2020 05:37 Patient: [...] your healthcare provider.Follow-up care 5 General Instructions [facility] Emergency Department [address] [place] [address] Phone #: ext- [phone] 12/10/2020 05:37 [id number] Sex: F : 1955 Age: 65yCall your [...] swelling in the outer vaginal area (labia) [id number] [employer]. [address] [place] [address]. All rights reserved. This information is not intended as asubstitute for professional medical care. Always follow your healthcare professional's instructions. You have been given the following additional information: Bladder Infection, Female (Adult) 6 General Instructions [facility] Emergency Department [address] [place] [address] Phone #: ext- [phone] 12/10/2020 05:37 Patient: FABIANO RAMIREZ Sex: F : 1955 Age: 65y(Electronically signed by Xavier Robertson, Physician 12/10/2020 07:04) Name Value Range Interpretation Code Description Data Melanie rce(s) Supporting Document(s) ID Date Data Source [id number] 12/10/2020 05:37:00 AM EDT [facility] 1 Clinical Report - Nurses [facility] Emergency Department [address] [place] [address] Phone #: ext- [phone] 12/10/2020 05:37 Patient: [...] LEG PAIN.Alert. No acute distress.This started today.Treatment VENEER JOINTER HELPER:None.SEPSIS SCREEN: SIRS SCREEN NEGATIVE. SEPSIS SCREEN NEGATIVE. [...] Noam Carney.AllergiesDarvacet.Demerol. 2 Clinical Report - Nurses [facility] Emergency Department [address] [place] [address] Phone #: ext- [phone] 12/10/2020 05:37 Patient: [...] membranes are 3 Clinical Report - Nurses [facility] Emergency Department [address] [place] [address] Phone #: ext- [phone] 12/10/2020 05:37 Patient: FABIANO RAMIREZ Sex: F [...] Patient verbalized understanding. Written instructions provided in Palauan. The patient was discharged home and accompanied [...] rce(s) Supporting Document(s) ID Date Data Source [id number] 12/10/2020 05:37:00 AM EDT [facility] 1 Clinical Report - Physicians/Mid Levels [facility] Emergency Department [address] [place] [address] Phone #: ext- [phone] 12/10/2020 05:37 Patient: FABIANO RAMIREZ Sex: F [...] surgery. 2 Clinical Report - Physicians/Mid Levels [facility] Emergency Department [address] [place] [address] Phone #: ext- [phone] 12/10/2020 05:37 Patient: [...] process. 3 Clinical Report - Physicians/Mid Levels [facility] Emergency Department [address] [place] [address] Phone #: ext- [phone] 12/10/2020 05:37 Patient: FABIANO RAMIREZ Sex: F [...] arise. 4 Clinical Report - Physicians/Mid Levels [facility] Emergency Department [address] [place] [address] Phone #: ext- [phone] 12/10/2020 05:37 Patient: FABIANO RAMIREZ Sex: F : 1955 Age: 65y Prescription Medications: Macrobid 100 mg capsule Take 1 capsule twice a day for 7 days -- Dispense 14 capsule. Refills: 0. Substitution permitted. Pharmacy - [facility] - [address] [facility] ; [place] [address]. . Follow-up: Follow up with your healthcare provider in three days for staple removal. Call for an appointment. Summary of care provided to patient via paper. Understanding of the discharge instructions verbalized.(Electronically signed by Xavier Robertson, Physician 12/10/2020 07:04) Name Value Range Interpretation Code Description Data Melanie rce(s) Supporting Document(s) ID Date Data Source [id number] 12/14/2020 09:42:00 AM EDT [facility] Name Value Range Interpretation Code Description Data Melanie rce(s) Supporting Document(s) CULTURE URINE [facility] spital _CULTURE URINE_$$220193$$908210$$933159$$918590$$420199$$343421$$495200$$420184$$293923$$ 393577$$820791$$912900$$696456$$654009$$787569$$817975$$664055$$037781$$477229$$ 924120$$124117$$407715$$753066$$846210$$379703$$818187$$976433 -- Continued on next page --Patient: CANDIDO MARIO Order: Page 2Culture: CULTURE URINE Status: Final ==== -- Continued on next page --Patient: CANDIDO MARIO Order: Page 2Culture: CULTURE URINE Status: Prelim =====$$[id number]$$[id number] DATE/TIME: 12/14/2020 09:06Culture: CULTURE URINE Status: FinalIsolate [...] on 12/13/2020 05:37 ET Escherichia coliUrine Culture,Comprehensive: A5Mgkrujsflls coli Flag: APatient: CANDIDO MARIO Order: [id number] Page 3Culture: CULTURE URINE Status: Final ISOLATE [...] S S . . . . . .03605-7Dxrlqhcinl S S . . . . . .267-5Imipenem S S . . . . . .279-0Levofloxacin R R . . . . . .75094- 8Meropenem S S . . . . . .6652-2Nitrofurantoin S S . . . . . .363-2Piperacillin/Tazobactam S S . . . . . .412-7Tetracycline S S . . . . . .496-0Tobramycin S S . . . . . .508-2 Trimethoprim/Sulfa S S . . . . . .516-5P1 Test performed by: [facility] #: [id number] [address] [place] [id number] [facility] [id number] Director : Ross Jeffers MD NPI #:Elevating Grader Operator : 12/13/20.1334.XMT.SENT REF 12/14/20.0942.XMT.SENT REF ID Date Data Source [id number] 12/10/2020 06:34:00 AM EDT [facility] Name Value Range Interpretation Code Description Data Melanie rce(s) Supporting Document(s) [facility] SOURCE R [facility] COLOR yellow NORMAL: Yellow [facility] [facility] CLARITY cloudy NORMAL: Clear [facility] Specific gravity of Urine by Test strip 1.015 1.001 - 1.030 [facility] pH 8 5 - 9 [facility] [Mass/volume] in Urine by Test strip NORM [facility] Bilirubin.total [Presence] in Urine by Test strip NEG NORMAL: Negative [facility] Ketones [Presence] in Urine by Test strip NEG NORMAL: Negative [facility] Protein [Mass/volume] in Urine by Test strip NEG NORMAL: Negat [facility] Nitrite [Presence] in Urine by Test strip NEG NORMAL: Negative [facility] BLOOD 10 NORMAL: Negative [facility] Leukocyte esterase [Presence] in Urine by Test strip 500 KANE L: Negative A [facility] Urobilinogen [Mass/volume] in Urine by Test strip NOR less deanna n 1.0 mg/dL [facility] MICROSCOPIC See Below [facility] WBC 20 - 30 NORMAL: NONE SEEN A [facility] Erythrocytes [#/volume] in Urine by Test strip 3 - 5 NORMAL: NON E SEEN [facility] EPITHELIAL MODERATE NORMAL: NONE SEEN A [facility] Bacteria [Presence] in Urine sediment by Light microscopy 2+ MOD NORMAL: NONE SEEN A [facility] Amorphous sediment [Presence] in Urine sediment by Light yong roscopy 2+ NORMAL: NONE SEEN [facility] ID Date Data Source [id number] 12/06/2020 09:09:00 AM EDT [facility] [address] [place] [address] PHONE: [phone] FAX: [phone] Name .................. : CANDIDO MARIO Acct Number.................. : [id number] ROOM. ................. : VT-05 Number ................... : [id number] Stay type ............. : E/R Discharge Date......... ... : 12/01/20 Admit Date ......... : 12/01/20 Admit Phys .................... : [facility] Date of ....... : 1955 Family Phys ................... : JENNY GARCIA Phone .................. : [phone] Age ................................ : 65 Film# .................. .:[id number] Sex ................................. : F Unsigned transcriptions are preliminary reports and do not represent a medical or legal document CT ST NECK W/O CONTRAST [id number] COMPLETE:12/01/20 15:07 RUFUS [id number] Reason(s): evaluate for foreign body as she [...] and further evaluation, Page 1 of 2 [place] [address] PHONE: [phone] FAX: [phone] Name .................. : CANDIDO MARIO Acct Number.................. : [id number] ROOM. ................. : [place] Number ................... : [id number] Stay type ............. : E/R Discharge Date......... ... : 12/01/20 Admit Date ......... : 12/01/20 Admit Phys .................... : CHANLIECCO Date of ....... : Family Phys ................... : JENNY NAN Phone .................. : [phone] Age ................................ : 65 Film# .................. .:[id number] Sex ................................. : F Unsigned transcriptions are preliminary reports and do not represent a medical or legal document CT ST NECK W/O CONTRAST 59188 COMPLETE:12/01/20 15:07 RUFUS [id number] Reason(s): evaluate for foreign body as she [...] rce(s) Supporting Document(s) ID Date Data Source [id number] 12/01/2020 12:20:00 PM EDT [facility] 1 OrderSheet [facility] Emergency Department [address] [place] [address] Phone #: ext- [phone] 12/01/2020 12:07 Patient: [...] rce(s) Supporting Document(s) ID Date Data Source [id number] 12/01/2020 12:20:00 PM EDT [facility] 1 Medication Reconciliation Report [facility] Emergency Department [address] [place] [address] Phone #: ext- [phone] 12/01/2020 12:07 Patient: [...] the Emergency Department: 2 Medication Reconciliation Report [facility] Emergency Department [address] [place] [address] Phone #: ext- [phone] 12/01/2020 12:07 Patient: FABIANO RAMIREZ Sex: F : 1955 Age: 65yGI Cocktail [PO] PO 50 mL, administered: 12:40 12/01/2020tivan [IM] IM 1 mg, administered: 14:25 12/01/2020The following Medications were prescribed to the patient:None. Name Value Range Interpretation Code Description Data Melanie rce(s) Supporting Document(s) ID Date Data Source [id number] 12/01/2020 12:20:00 PM EDT [place] [address] Medication Administration Record [facility] Emergency Department [address] [place] [address] Phone #: ext- [phone] 12/01/2020 12:07 Patient: [...] rce(s) Supporting Document(s) ID Date Data Source [id number] 12/01/2020 12:20:00 PM EDT [facility] 1 General Instructions [facility] Emergency Department [address] [place] [address] Phone #: ext- [phone] 12/01/2020 12:07 Patient: [...] an ear, nose and throat physician (an independent living specialist)and a security software engineer in three days. Reason for referral: evaluation. Summary of care provided to patientvia paper. ADDITIONAL INFORMATIONDysphagia (Adult) 2 General Instructions [facility] Emergency Department [address] [place] [address] Phone #: ext- [phone] 12/01/2020 12:07 Patient: [...] evaluate you using X-ray, 3 General Instructions [facility] Emergency Department [address] [place] [address] Phone #: ext- [phone] 12/01/2020 12:07 Patient: [...] for any of the followin General Instructions [facility] Emergency Department [address] [place] [address] Phone #: wkd- [phone] 12/01/2020 12:07 Patient: FABIANO RAMIREZ Sex: F : 1955 Age: 65y Inability to keep down food or liquid Symptoms that get worse quickly Coughing that won't stop Continuing to lose weight Fever of 100.4F (38C) or higher, or as directed by your healthcare provider Other symptoms as indicated by your healthcare providerCall [phone] [phone] for any of the following: Trouble breathing Inability to talk Drooling, inability to control secretions Loss of consciousness [phone] [employer]. [address] [place] [address], [place] [address]. All rights reserved. This information is not intended as asubstitute for professional medical care. Always follow your healthcare professional's instructions. You have been given the following additional information: Dysphagia (Adult)(Electronically signed by Karen Saucedo 12/01/2020 19:10) Name Value Range Interpretation Code Description Data Melanie rce(s) Supporting Document(s) ID Date Data Source [id number] 12/01/2020 12:20:00 PM EDT [facility] 1 Clinical Report - Nurses [facility] Emergency Department [address] [place] [address] Phone #: [phone]- [phone] 12/01/2020 12:07 Patient: FABIANO RAMIREZ Sex: F : 1955 Age: 65yTRIAGEArrived by EMS. Historian: EMS and patient.Acuity: LEVEL 4.Chief Complaint: SORE THROAT.This started yesterday. 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 See [...] Guzman RN.AllergiesDarvacet. 2 Clinical Report - Nurses [facility] Emergency Department [address] [place] [address] Phone #: ext- [phone] 12/01/2020 12:07 Patient: [...] in lowest 3 Clinical Report - Nurses [facility] Emergency Department [address] [place] [address] Phone #: ext- [phone] 12/01/2020 12:07 [id number] Sex[facility] F : 1955 Age: 65y position. [...] Patient verbalized understanding. Written instructions provided in Palauan. The patient was discharged by the physician. She was discharged home. She left ambulatory. Peer Tutor driving. --16:49 12/01/20 Myles Landis R.N. 16:48 12/01/20. BP: 142/86. MAP: 104. HR: 74. RR: 18. O2 saturation: 97%. Temp: deferred. Pain level now: 08/30. --16:49 12/01/20 Myles Landis R.N. Departure time: 16:50 12/01/2020. --16:50 12/01/20 Myles Landis R.N.Locked/Released at 12/01/2020 16:50 by Myles Landis R.N. Name Value Range Interpretation Code Description Data Melanie rce(s) Supporting Document(s) ID Date Data Source [id number] 12/01/2020 12:20:00 PM EDT [facility] 1 Clinical Report - Physicians/Mid Levels [facility] Emergency Department [address] [place] [address] Phone #: ext- [phone] 12/01/2020 12:07 Patient: FABIANO RAMIREZ Sex: F : 1955 Age: 65y Time Seen: 12:28 12/01/2020; initial patient contact, initial documentation. Arrived- By ambulance. Historian- patient. Disposition decision: 16:27 12/01/2020.HISTORY OF PRESENT ILLNESS Chief Complaint: SORE THROAT. FOREIGN BODY SENSATION IN THROAT. 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 It was abrupt in onset and has [...] pain on swallowing. she was seen at [facility] where they did an xray [...] Additional Surgeries: 2 Clinical Report - Physicians/[facility] Emergency Department [address] [place] [address] Phone #: ext- [phone] 12/01/2020 12:07 Patient: [...] X 3. 3 Clinical Report - Physicians/[facility] Emergency Department [address] [place] [address] Phone #: [phone] ext- [phone] 12/01/2020 12:07 Patient: FABIANO RAMIREZ Sex: F [...] day. 4 Clinical Report - Physicians/Mid Levels [facility] Emergency Department [address] [place] [address] Phone #: ext- [phone] 12/01/2020 12:07 Patient: [...] an ear, nose and throat physician (an independent living specialist) and a security software engineer in three days. Reason for referral: evaluation. Summary of care provided to patient via paper.(Electronically signed by Karen Saucedo 12/01/2020 19:10) Name Value Range Interpretation Code Description Data Melanie rce(s) Supporting Document(s) ID Date Data Source [id number] 11/04/2020 09:59:00 PM EDT [facility] Name Value Range Interpretation Code Description Data Melanie rce(s) Supporting Document(s) Appearance, Urine RFX Laboratory test result [facility] ([facility]) PH,Urine RFX 7.0 units 5.0-9.0 [facility] ([facility]) Color, Urine RFX Laboratory test result [facility] ([facility]) Glucose, Urine (Ua) Auto RFX Laboratory test result [facility] ([facility]) Specific [place] Ur Auto RFX 1.013 1.002-1.035 [facility] ([facility]) Protein, Urine Auto RFX Laboratory test result [facility] ([facility]) Ketone, Urine Auto RFX Laboratory test result [facility] ([facility]) Urobilinogen, Urine Auto RFX 0.2 mg/dL 0.0-2.0 [facility] ([facility]) Bilirubin, Urine Auto RFX Laboratory test result [facility] ([facility]) Nitrite, Urine Auto RFX Laboratory test result [facility] ([facility]) Blood, Urine Blood RFX Laboratory test result [facility] ([facility]) Leukocyte Esterase Ur Auto RFX Laboratory test result [facility] ([facility]) RBC, Urine Auto RFX 2 /HPF 0-3 [facility] WBC, Urine Auto RFX 12 /HPF 0-3 [facility]) Squam Epithelial Cell Ur Aurfx 1 /HPF 0-6 [facility] ([facility]) Mucus, Urine RFX Laboratory test result [facility] ([facility]) Bacteria, Urine Auto RFX Laboratory test result [facility]) Hyaline Cast, Urine Auto RFX 1 /LPF 0-1 M [facility] ([facility]) ID Date Data Source [id number] 11/04/2020 09:59:00 PM EDT [facility] Name Value Range Interpretation Code Description Data Melanie rce(s) Supporting Document(s) Reflex Urine Culture Laboratory test result [facility] ([facility]) <content>FULL REPORT IN LAB NOTES [...] 1 S</content>
<content></content> ID Date Data Source [id number] 10/29/2020 11:06:00 AM EDT [facility] ([facility]) Name Value Range Interpretation Code Description Data Melanie rce(s) Supporting Document(s) Reflex Urine Culture Laboratory test result [facility]) <content>FULL REPORT IN LAB NOTES (eCW [...] 2 S</content>
<content></content> ID Date Data Source [id number] 10/29/2020 11:06:00 AM EDT [facility] Name Value Range Interpretation Code Description Data Melanie rce(s) Supporting Document(s) Appearance, Urine RFX Laboratory test result [facility]) PH,Urine RFX 7.0 units 5.0-9.0 [facility]) Color, Urine RFX Laboratory test result [facility] ([facility]) Specific [place] Ur Auto RFX 1.012 1.002-1.035 [facility]) Protein, Urine Auto RFX Laboratory test result [facility]) Glucose, Urine (Ua) Auto RFX Laboratory test result [facility] ([facility]) Urobilinogen, Urine Auto RFX 0.2 mg/dL 0.0-2.0 [facility]) Ketone, Urine Auto RFX Laboratory test result [facility]) Bilirubin, Urine Auto RFX Laboratory test result [facility]) Nitrite, Urine Auto RFX Laboratory test result [facility]) Leukocyte Esterase Ur Auto RFX Laboratory test result [facility] ([facility]) WBC, Urine Auto RFX 29 /HPF 0-3 [facility]) Blood, Urine Blood RFX Laboratory test result [facility]) RBC, Urine Auto RFX 12 /HPF 0-3 [facility]) Squam Epithelial Cell Ur Aurfx 1 /HPF 0-6 [facility] ([facility]) Bacteria, Urine Auto RFX Laboratory test result [facility] ([facility]) Hyaline Cast, Urine Auto RFX 1 /LPF 0-1 M [facility] ([facility]) Mucus, Urine RFX Laboratory test result [facility] ([facility]) Amorphous Sediment RFX Laboratory test result [facility] ([facility]) ID Date Data Source [id number] 10/29/2020 10:47:00 AM EDT [facility] Name Value Range Interpretation Code Description Data Melanie rce(s) Supporting Document(s) SARS COVID ANTIGEN NEGATIVE [facility] This lab was ordered by PEYTON vargas nd reported by [facility]. ID Date Data Source [id number] 10/29/2020 10:47:00 AM EDT [facility] ([facility]) Name Value Range Interpretation Code Description Data Melanie rce(s) Supporting Document(s) Laboratory test finding (navigational concept) Laboratory test result [facility] ([facility]) The Tory SARS Antigen ALISTAIR does not diff erentiate between SARS-CoV and SARS-CoV-2. Negative results do not rule out COVID-19 and should not be used as the sole basis for treatment. Negative results should be considered in the context of a patient's recent exposure, history and the presence of clinical signs and symptoms consistent with COVID-19. ID Date Data Source [id number] 10/19/2020 08:54:00 [place] [address] PHONE: [phone] FAX: [phone] Name .................. : YUNIGavin MARIO Acct Number.................. : [id number] ROOM. ................. : TR-04 MR Number ................... : [id number] Stay type ............. : E/R Discharge Date......... ... : 10/14/20 Admit Date ......... : 10/13/20 Admit Phys .................... : VIJAYA Date of ....... : 1955 Family Phys ................... : JENNY NAN Phone . ................. : [phone] Age ................................ : 65 Film# .................. .:[id number] Sex ................................. : F Unsigned transcriptions are preliminary reports and do not represent a medical or legal document CHEST PORTABLE [id number] COMPLETE:10/14/20 00:54 [facility] 7229 Reason(s): cough hemoptysis PORTABLE CHEST X-RAY: [...] Date: 10/14/20 13:06, Dictation Date: Copy for: [address] [place] [address] DISCHARGED Page 1 of 1 Name Value Range Interpretation Code Description Data Melanie rce(s) Supporting Document(s) ID Date Data Source [id number] 10/16/2020 09:15:[place] [address] RESPIRATORY CARE REPORT ==== ---------NAME------- NUMBER SEX AGE ADMIT DISC. XRAY# F/C KELSEY MARIO [id number] F 65 10/13/20 10/14/20 [id number] E/R DATE OF : 1955 M/R# [id number] #: [id number] TR-04 LOCATION: EKG 07653 COMPLETE:10/14/20 0 0:29 T 04883 PHYSICIAN: VIJAYA Name Value Range Interpretation Code Description Data Melanie rce(s) Supporting Document(s) ID Date Data Source [id number] 10/13/2020 11:01:00 PM EDT [facility] 1 OrderSheet [facility] Emergency Department [address] [place] [address] Phone #: ext- [phone] 10/13/2020 23:01 Patient: [...] STAT 23:47 10/13/2020 00:19 10/14/2020(Urine, [facility] ;Lactic Acid STAT 23:47 10/13/2020 23:59 Vijaya [...] Order 23:50 ; Karen Saucedo 2 OrderSheet [facility] Emergency Department [address] [place] [address] Phone #: ext- [phone] 10/13/2020 23:01 Patient: [id number] Sex: F : 1955 Age: 65yCRP STAT [...] InitialedAccucheck 23:47 10/13/2020 23:59 Angelika, 3 OrderSheet [facility] Emergency Department [address] [place] [address] Phone #: ext- [phone] 10/13/2020 23:01 Patient: [id number] Sex: F : 1955 Age: 65y Karen [...] rce(s) Supporting Document(s) ID Date Data Source [id number] 10/13/2020 11:01:00 PM EDT [facility] 1 Medication Reconciliation Report [facility] Emergency Department [address] [place] [address] Phone #: ext- [phone] 10/13/2020 23:01 Patient: [...] Home Medication information:patient 2 Medication Reconciliation Report [facility] Emergency Department [address] [place] [address] Phone #: ext- [phone] 10/13/2020 23:01 Patient: [...] Dispense 14 tablet. Refills: 0.Substitution permitted.Pharmacy - [facility] - [address] ; [place] [address]. . -- Karen Saucedo Name Value Range Interpretation Code Description Data Melanie rce(s) Supporting Document(s) ID Date Data Source [id number] 10/13/2020 11:01:00 PM EDT [place] [address] Medication Administration Record [facility] Emergency Department [address] [place] [address] Phone #: ext- [phone] 10/13/2020 23:01 Patient: FABIANO RAMIREZ Sex: F : 1955 Age: 65yWeight: 91.6 kgHeight/Length: 62 inBMI: 37ALLERGIES: Darvacet, Demerol, Microdentin Date/Time Medication Administered Medication OrderedStart ROCEPHIN (1GM/50ML) [IVPB] Rocephin (1gm/50mL) IVPB 526450:56 10/14/2020 (CEFTRIAXONE SODIUM) mg with Dextrose 50 ml spike Noam Ramesh, Dose: 1 gm IVPB (D5W)---- Rate: 100 mL/hr over 30 minute(s)Stop Dispensed: 50 mL bag02:58 10/14/2020 Site: #1 left Noam Estrada, Name Value Range Interpretation Code Description Data Melanie rce(s) Supporting Document(s) ID Date Data Source [id number] 10/13/2020 11:01:00 PM EDT [facility] 1 General Instructions [facility] Emergency Department [address] [place] [address] Phone #: ext- [phone] 10/13/2020 23:01 Patient: [...] Dispense 14 tablet. Refills: 0.Substitution permitted.Pharmacy - [facility] - [address] ; [place] [address]. .Follow-up:Follow up with your healthcare provider Friday if not better. Reason for referral: evaluation. Summary ofcare provided to patient via paper. ADDITIONAL INFORMATION 2 General Instructions [facility] Emergency Department [address] [place] [address] Phone #: ext- [phone] 10/13/2020 23:01 Patient: [...] prescribed for this condition. 3 General Instructions [facility] Emergency Department [address] [place] [address] Phone #: ext- [phone] 10/13/2020 23:01 Patient: [...] loosen secretions in the nose and lungs. Tezq-ell-rvanzya cold medicines will not shorten the length of time you're sick, but they may be helpful for the following symptoms: cough, sore throat, and nasal and sinus congestion. If you take prescription medicines, ask your healthcare provider or pharmacist which vpoi-ori-jomfwaf medicines are safe to use. (Note: Don't [...] wheezing, or difficulty breathing 4 General Instructions [facility] Emergency Department [address] [place] [address] Phone #: ext- [phone] 10/13/2020 23:01 Patient: FABIANO RAMIREZ Sex: F : 1955 Age: 65y Coughing up blood Very severe pain with swallowing, especially if it goes along with a muffled voice [employer]. [address] [place] [address], [place] [address]. All rights reserved. This information is not [...] of cystitis isan infection. 5 General Instructions [facility] Emergency Department [address] [place] [address] Phone #: blo- [phone] 10/13/2020 23:01 Patient: FABIANO RAMIREZ Sex: F [...] put in Older age 6 General Instructions [facility] Emergency Department [address] [place] [address] Phone #: ext- [phone] 10/13/2020 23:01 Patient: FABIANO RAMIREZ Sex: F [...] and vegetables, and fiber. 7 General Instructions [facility] Emergency Department [address] [place] [address] Phone #: ext- [phone] 10/13/2020 23:01 Patient: [...] if the results will affect your treatment.Call [phone] if any of the following occur: Trouble [...] outer vaginal area (labia) 8 General Instructions [facility] Emergency Department [address] [place] [address] Phone #: ext- [phone] 10/13/2020 23:01 Patient: FABIANO RAMIREZ Sex: F : 1955 Age: 65y [phone] [employer]. [address] [place] [address], [place] [address]. All rights reserved. This information is not intended as asubstitute for professional medical care. Always follow your healthcare professional's instructions. You have been given the following additional information: URI, Viral, No Abx (Adult) Bladder Infection, Female (Adult)(Electronically signed by Karen Saucedo 10/15/2020 07:57) Name Value Range Interpretation Code Description Data Melanie rce(s) Supporting Document(s) ID Date Data Source [id number] 10/13/2020 11:01:00 PM EDT [facility] 1 Clinical Report - Nurses [facility] Emergency Department [address] [place] [address] Phone #: ext- [phone] 10/13/2020 23:01 Patient: [...] No acute distress.Onset. 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 --23:35 10/13/20 Claudia Mgiuel RN.Weight: 91.6 kg measured. Height/Length: 62 inches [...] Miguel RN.AllergiesDarvacet. 2 Clinical Report - Nurses [facility] Emergency Department [address] [place] [address] Phone #: ext- [phone] 10/13/2020 23:01 Patient: [...] pre- and 3 Clinical Report - Nurses [facility] Emergency Department [address] [place] [address] Phone #: ext- [phone] 10/13/2020 23:01 Patient: FABIANO RAMIREZ Sex: F : 1955 Age: 65y post-medication administration. Information reviewed with patient including reason for taking this medication, signs of allergic reaction and precautions. Verbalizes understanding. --01:56 10/14/20 Noam Carney Patient returned from CT by wheelchair with mask and industrial ecology technician. --02:36 10/14/20 Roxanne Lerner R.NFreya 02:37 10/14/20. BP: 127/77. MAP: 93. HR: 82. RR: 18. O2 saturation: 94% on room air. --02:39 10/14/20 Roxanne Lerner RFreyaNFreya The patient is calm and resting quietly. [...] Patient verbalized understanding. Written instructions provided in Palauan. No treatment instructions. The patient was discharged by the physician. She was discharged home. She left ambulatory and via taxi. 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 --04:24 10/14/20 Noam Carney.Locked/Released at 10/14/2020 04:25 by Noam Carney Name Value Range Interpretation Code Description Data Melanie rce(s) Supporting Document(s) ID Date Data Source [id number] 10/13/2020 11:01:00 PM EDT [facility] 1 Clinical Report - Physicians/Mid Levels [facility] Emergency Department [address] [place] [address] Phone #: ext- [phone] 10/13/2020 23:01 Patient: [...] surgery. 2 Clinical Report - Physicians/Mid Levels [facility] Emergency Department [address] [place] [address] Phone #: ext- [phone] 10/13/2020 23:01 Patient: FABIANO RAMIREZ Sex: F [...] Interpretation 3 Clinical Report - Physicians/Mid Levels [facility] Emergency Department [address] [place] [address] Phone #: ext- [phone] 10/13/2020 23:01 Patient: FABIANO RAMIREZ Sex: F [...] CTA CHEST NON-CORONARY W CON INC PP [facility] [address] [place] [address] ---------NAME--------- NUMBER SEX AGE ADMIT DISC. XRAY# F/C TYPE CANDIDO MARIO [id number] F 65 10/13/20 [id number] E/R DATE OF : 1955 M/R# [id number] #: [id number] TR-04 LOCATION: TRANSCRIBED: 10/14/20 3:[address] CTA CHEST NON-CORONARY W [id number] COMPLETED:10/14/20 2:52 [facility] 7231 Reason(s): hemoptysis -- PHYSICIAN: VIJAYA -- -- R A D I O L O G Y R E P O R T -- PATIENT HISTORY: hemopstysis. isovue 370 75 ml [id number] exp 09/12. estimated dose 394.5. actual dose 395.6 mGy*cm. Time Out performed. Correct patient with 2 identifiers, type and amount of contrast used, correct body part and side all verified prior to examination. / COR SLAB MIP (DICOM Hx) EXAM: CTA Chest with Intravenous Contrast for PE evaluation -- CLINICAL HISTORY:hemopstysis. isovue 370 75 ml [id number] exp 09/12. estimated dose 394.5. actual dose [...] aorta. 4 Clinical Report - Physicians/Mid Levels [facility] Emergency Department [address] [place] [address] Phone #: ext- [phone] 10/13/2020 23:01 Patient: [...] 03:51Venous Blood Gas: (OLE: 10/14/2020 00:01) ( [facility] 10/14/2020 00:22) Final results Test Result Flag [...] 85.0)CBC w Diff: (OLE: 10/14/2020 00:01) ( [facility] 10/14/2020 00:10) Final results Test Result Flag [...] 7.0) 5 Clinical Report - Physicians/Mid Levels [facility] Emergency Department [address] [place] [address] Phone #: ext- [phone] 10/13/2020 23:01 Patient: FABIANO RAMIREZ Sex: F [...] Male GFR Interprentation 20-49 yrs >60 mL/min Afdeup54-33 yrs >56 mL/min Normal 60-69 yrs >49 mL/min Normal 70-79yrs>42 mL/min Normal 80 and above >35 mL/min Normal Female GFRInterpretation 20-39 yrs >60 mL/min Normal 40-49 yrs >58 mL/minNormal 50-59 yrs >51 mL/min Normal 60-69 yrs >45 mL/min Ciewch91-61 yrs >39 mL/min Normal 80 and above [...] VenousThrombosis, Pulmonary Embolus, Tissue heart valves, Acute NH, Atrial Fibrillation, Valvular heartdisease and recurrent Systemic Embolism. - International Normalized Ratio (INR): 2.5 - 3.5 6 Clinical Report - Physicians/Mid Levels [facility] Emergency Department [address] [place] [address] Phone #: ext- [phone] 10/13/2020 23:01 Patient: [...] NONEVenous Blood Gas: (OLE: 10/13/2020 23:47) ( [facility] 10/13/2020 23:50) CanceledCRP: (OLE: 10/14/2020 00:01) ( [facility] 10/14/2020 00:40) Final results Test Result Flag Units (Reference) CRP-HS 11.76 H MG/L (1.00 - 3.00) CDC/S HS-CRP CUT-OFF: RELATIVE RISK: <1.0 mg/LLow 1.0 - 3.0 mg/L Average >3.0 mg/LHigh Optimally, the average of HS-CRP results repeated two weeks apart should be used forrisk assessment.ABG: (OLE: 10/13/2020 23:47) ( [facility] 10/14/2020 00:02) CanceledMagnesium: (OLE: 10/14/2020 00:01) ( [facility] 10/14/2020 00:40) Final results Test Result Flag Units (Reference) MAGNESIUM 2.2 MG/DL (1.7 - 2.2)Chest Portable 1 View: (OLE: 10/13/2020 23:47) ( [facility] 10/14/2020 00:54) In ProgressCHEST PORTABLE 7 Clinical Report - Physicians/Mid Levels [facility] Emergency Department [address] [place] [address] Phone #: ext- [phone] 10/13/2020 23:01 [id number]: [facility] : 1955 Age: 65y Reason(s): [...] Oral. 8 Clinical Report - Physicians/Mid Levels [facility] Emergency Department [address] [place] [address] Phone #: [phone] ext- [phone] 10/13/2020 23:01 Patient: FABIANO RAMIREZ Sex: F [...] tablet. Refills: 0. Substitution permitted. Pharmacy - [id number] - [address] ; [place] [address]. . Follow-up: Follow up with your healthcare provider Friday if not better. Reason for referral: evaluation. Summary of care provided to patient via paper.(Electronically signed by Karen Saucedo 10/15/2020 07:57) Name Value Range Interpretation Code Description Data Melanie rce(s) Supporting Document(s) ID Date Data Source [id number] 10/14/2020 03:51:00 AM EDT [address] [address] ---------NAME--------- NUMBER SEX AGE ADMIT DISC. XRAY# F/C TYPE CANDIDO MARIO [id number] F 65 10/13/20 [id number] E/R DATE OF : 1955 M/R# [id number] #: [id number] TR-04 LOCATION: TRANSCRIBED: 10/14/20 3:[address] CTA CHEST NON-CORONARY W [id number] COMPLETED:10/14/20 2:52 [facility] 7231 Reason(s): hemoptysis PHYSICIAN: VIJAYA R A D I O L O G Y R E P O R T PATIENT HISTORY:hemopstysis. isovue 370 75 ml [id number] exp 09/12. estimated dose 394.5. actualdose 395.6 mGy*cm.Time Out performed. Correct patient with 2 identifiers, type and amount ofcontrast used, correct body part and side all verified prior to examination. /COR SLAB MIP (DICOM Hx)EXAM: CTA Chest with Intravenous Contrast for PE evaluationCLINICAL HISTORY:hemopstysis. isovue 370 75 ml [id number] exp 09/12. estimated qqoo135.5. actual dose 395.6 mGy*cm. Time Out performed. [...] rce(s) Supporting Document(s) ID Date Data Source [id number] 10/21/2020 06:30:00 AM EDT [facility] Name Value Range Interpretation Code Description Data Melanie rce(s) Supporting Document(s) CULTURE BLOOD [facility] spital _CULTURE BLOOD_ TEST PERFORM ED AT [address] [address] CLIA# [id number] SEE SCANNED REPORT{ PRELIM ID Date Data Source [id number] 10/14/2020 12:35:00 AM EDT [facility] ([facility]) Name Value Range Interpretation Code Description Data Melanie rce(s) Supporting Document(s) Culture Blood Laboratory test result [facility] ([facility]) _CULTURE BLOOD_ TEST PERFORMED AT [address] [address] CLIA# [id number] SEE SCANNED REPORT { PRELIM ID Date Data Source [id number] 10/19/2020 11:49:00 AM EDT [facility] [address] Name Value Range Interpretation Code Description Data Melanie rce(s) Supporting Document(s) Bacteria identified in Blood by Culture [facility] NO GROWTH AFTER 5 DAYS ID Date Data Source [id number] 10/21/2020 06:29:00 AM EDT [facility] Name Value Range Interpretation Code Description Data Melanie rce(s) Supporting Document(s) CULTURE BLOOD [facility] spital _CULTURE BLOOD_ TEST PERFORM ED AT [address] [address] CLIA# [id number] SEE SCANNED REPORT{ PRELIM ID Date Data Source [id number] 10/14/2020 12:04:00 AM EDT [facility] ([facility]) Name Value Range Interpretation Code Description Data Melanie rce(s) Supporting Document(s) Culture Blood Laboratory test [facility] _[facility] B[facility]OD_ TEST PERFORMED AT [address] [address] CLIA# [id number] SEE SCANNED REPORT { PRELIM ID Date Data Source [id number] 10/14/2020 12:01:00 AM EDT [facility] Name Value Range Interpretation Code Description Data Melanie rce(s) Supporting Document(s) C reactive protein [Mass/volume] in Serum or Plasma by High sensitivity method 11.76 mg/L 1.00-3.00 [facility] <content>CDC/S HS-CRP CUT-OFF: RELATIVE RISK:</content>
<content><1.0 mg/L Low</content>
<content>1.0 - 3.0 mg/L Average</laron nt>
<content>>3.0 mg/L High</content>
<content>Optimally, the average of HS-CRP results repeated</content>
<content>two weeks apart should be used for risk assessment.</content>
<content></content> Magnesium Serum 2.2 mg/dL 1.7-2.2 [facility] ([facility]) Natriuretic peptide.B prohormone N-Terminal [Mass/volu me] in Serum or Plasma 20 pg/mL 0-125 [facility] ([facility] ) Fibrin D-dimer [Presence] in Platelet poor plasma 0.32 ug/mL 0.27-0.5 0 [facility] ([facility]) ID Date Data Source [id number] 10/14/2020 12:01:00 AM EDT [facility] ([facility]) Name Value Range Interpretation Code Description Data Melanie rce(s) Supporting Document(s) Comprehensive Metabo Laboratory test result [facility] COMPREHENSIVE METABOLIC PANEL Sodium 140 meq/L 134-153 [facility] Potassium 3.9 meq/L 3.6-5.0 [facility] Co2 31 meq/L 22-30 [facility] Chloride 102 meq/L 98-107 [facility] BUN 12 mg/dL 7-21 [facility] Glucose 94 mg/dL 70-99 [facility] Creatinine 0.8 mg/dL 0.7-1.5 [facility] ([facility]) Total Protein 7.0 g/dL 6.3-8.2 [facility] ([facility]) BUN/Creat 15 8-27 [facility] Globulin 2.8 GM/DL 2.4-3.2 [facility] Albumin 4.2 g/dL 3.9-5.0 [facility] A/G Ratio 1.5 0.8-2.0 [facility] Calcium 10.1 mg/dL 8.4-10.2 [facility] ([facility]) Total Bili Laboratory test result 0.2-1.3 [facility] ([facility]) Alkaline Phos 62 U/L 38-126 [facility] ([facility]) Sgot/Ast 14 U/L 5-40 [facility] SGPT/Alt 13 U/L 7-56 [facility] Anion Gap 7.0 mmol/L 8.0-16.0 [facility] Non-Aa GFR Laboratory test result [facility] ([facility]) Age 65 yrs [facility] Afr Amer GFR Laboratory test result [facility] ([facility]) Male GFR Interprentation 20-49 yrs >60 [...] >32 mL/min Normal ID Date Data Source [id number] 10/14/2020 12:01:00 AM EDT [facility] ([facility]) Name Value Range Interpretation Code Description Data Melanie rce(s) Supporting Document(s) Troponin T.cardiac [Mass/volume] in Serum or Plasma Laborato ry test result 0.00-0.10 [facility] ([facility]) TROPONIN T 0.1 ng/ml Recommended as the clinical th reshold value for Troponin T. ID Date Data Source [id number] 10/14/2020 12:01:00 AM EDT [facility] ([facility]) Name Value Range Interpretation Code Description Data Melanie rce(s) Supporting Document(s) pCO2 V 56.1 mm/HG 38.0-51.0 [facility] pH V 7.37 7.32-7.43 [facility] pO2 V 39.7 mm/HG 30.0-55.0 [facility] Hco3 V 31.5 meq/L 22.0-29.0 [facility] Tco2 V 33.2 meq/L 22.0-29.0 [facility] O2 Sat V 73.4 % 40.0-85.0 [facility]) Base Excess 4.9 [facility] ([facility]) ID Date Data Source [id number] 10/14/2020 12:01:00 AM EDT [facility]) Name Value Range Interpretation Code Description Data Melanie rce(s) Supporting Document(s) Protime 15.3 s 11.0-15.5 [facility] Inr 1.15 0.93-1.23 [facility] \\BLDo\\INR INTERPRETATION\\BLDx\\ Therapeutic range for Coumadin and related oral a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. -International Normalized Ratio (INR): 2 .0 - 3.0 for Venous Thrombosis, Pulmonary Embolus, Tissue heart valves, Acute NH, Atrial Fibrillation, Valvular heart disease and recurrent Systemic Embolism. -International Normalized Ratio (INR): 2 .5 - 3.5 for Mechanical Prosthetic valve. ID Date Data Source [id number] 10/14/2020 12:01:00 AM EDT [facility] ([facility]) Name Value Range Interpretation Code Description Data Melanie rce(s) Supporting Document(s) Lactate [Mass/volume] in Serum or Plasma 1.4 mmol/L 0.2-2.2 [facility] ([facility]) ID Date Data Source [id number] 10/14/2020 12:01:00 AM EDT [facility] ([facility]) Name Value Range Interpretation Code Description Data Melanie rce(s) Supporting Document(s) CBC W/Automated Diff Laboratory test result [facility] ([facility]) COMPLETE BLOOD COUNT WBC 5.8 10^3/uL 4.2-11.0 [facility] ([facility]) RBC 3.92 10^6/uL 4.20-5.40 [facility] ([facility]) Hematocrit 36.6 % 37.0-47.0 [facility] ([facility]) Hemoglobin 11.9 g/dL 12.0-16.0 [facility] ([facility]) MCV 93.4 fL 81.0-101 [facility] MCH 30.4 pg 27.0-34.0 [facility] RDW 15.5 % 11.5-14.5 [facility] MCHC 32.5 g/dL 31.0-36.0 [facility] Platelets 204 10^3/uL 150-450 [facility] ([facility]) MPV 8.4 fL 7.4-10.4 [facility] Neut 43.7 % 37.0-80.0 [facility] Lymph 45.6 % 25.0-40.0 [facility]) [place] 6.2 % 3.0-8.0 [facility] Baso 0.3 % 0.0-2.5 [facility] Eos 4.0 % 0.0-7.0 [facility] %Ig 0.2 % 0.0-0.0 [facility] %NRBC 0.0 % 0.0-0.0 [facility] #Neut 2.54 10^3/uL 2.00-6.90 [facility] ([facility]) #Lymph 2.65 10^3/uL 0.60-3.40 [facility] ([facility]) #[place] 0.36 10^3/uL 0.00-0.90 [facility] ([facility]) #Eos 0.23 10^3/uL 0.00-0.70 [facility] ([facility]) #Baso 0.02 10^3/uL 0.00-0.20 [facility] ([facility]) #Ig 0.01 10^3/uL 0.00-0.10 [facility] ([facility]) #NRBC 0.00 10^3/uL 0.00-0.00 [facility] ([facility]) Manual Diff Laboratory test result [facility] ([facility]) RBC Morph Laboratory test result [facility] ([facility]) ID Date Data Source [id number] 10/14/2020 02:08:00 AM EDT [facility] Name Value Range Interpretation Code Description Data Melanie rce(s) Supporting Document(s) BNP 20 [facility] - [facility] Data Source [id number] 10/14/2020 12:40:00 AM EDT [facility] Name Value Range Interpretation Code Description Data Melanie rce(s) Supporting Document(s) Fibrin D-dimer FEU [Mass/volume] in Platelet poor plasma 0.32 ug /mL 0.27 - 0.50 [facility] ID Date Data Source [id number] 10/14/2020 12:39:00 AM EDT [facility] Name Value Range Interpretation Code Description Data Melanie rce(s) Supporting Document(s) Magnesium [Mass/volume] in Serum or Plasma 2.2 MG/DL 1.7 - 2.2 [facility] ID Date Data Source [id number] 10/14/2020 12:39:00 AM EDT [facility] Name Value Range Interpretation Code Description Data Melanie rce(s) Supporting Document(s) C reactive protein [Mass/volume] in Serum or Plasma by High sensitivity method 11.76 MG/L 1.00 - 3.00 H [facility] CDC/S HS-CRP CUT-OFF: RELATIVE RISK: <1.0 mg/L Low 1.0 - 3.0 mg/L Average >3.0 mg/L High Optimally, the average of HS-CRP results repeated two weeks apart should be used for risk assessment. ID Date Data Source [id number] 10/14/2020 12:39:00 AM EDT [facility] Name Value Range Interpretation Code Description Data Melanie rce(s) Supporting Document(s) COMPREHENSIVE METABOLIC PANEL [facility] COMPREHENSIVE METABOLIC PANEL Sodium [Moles/volume] in Serum or Plasma 140 mEq/L 134 - 153 [facility] Potassium [Moles/volume] in Serum or Plasma 3.9 mEq/L 3.6 - 5.0 [facility] Chloride [Moles/volume] in Serum or Plasma 102 mEq/L 98 - 107 [facility] Carbon dioxide, total [Moles/volume] in Serum or Plasma 31 MEQ/L 22 - 30 H [facility] Glucose [Mass/volume] in Serum or Plasma 94 MG/DL 70 - 99 [facility] BUN 12 MG/DL 7 - 21 [facility] Creatinine [Mass/volume] in Serum or Plasma 0.8 MG/DL 0.7 - 1.5 [facility] BUN/CREAT 15 8 - 27 [facility] Protein [Mass/volume] in Serum or Plasma 7.0 G/DL 6.3 - 8.2 [facility] Albumin [Mass/volume] in Serum or Plasma 4.2 G/DL 3.9 - 5.0 [facility] Globulin [Mass/volume] in Serum by calculation 2.8 GM/DL 2.4 - 3.2 [facility] A/G RATIO 1.5 0.8 - 2.0 [facility] Calcium [Mass/volume] in Serum or Plasma 10.1 MG/DL 8.4 - 10.2 [facility] Bilirubin.total [Mass/volume] in Serum or Plasma <0.7 MG/DL 0.2 - 1.3 [facility] Alkaline phosphatase [Enzymatic activity/volume] in Serum or Plasma 62 U/L 38 - 126 [facility] Aspartate aminotransferase [Enzymatic activity/volume] in Serum or Plasma 14 U/L 5 - 40 [facility] Alanine aminotransferase [Enzymatic activity/volume] in Seru m or Plasma 13 U/L 7 - 56 [facility] Anion gap 3 in Serum or Plasma 7.0 mmol/L 8.0 - 16.0 L [facility] AGE 65 yrs [facility] NON-AA GFR >60 mL/min [facility] ital AFR AMER GFR >60 [facility] Male GFR In terprentation [...] >32 mL/min Normal ID Date Data Source [id number] 10/14/2020 12:39:00 AM EDT [facility] Name Value Range Interpretation Code Description Data Melanie rce(s) Supporting Document(s) TROPONIN T <0.01 NG/ML 0.00 - 0.10 [facility]ital TROPONIN T0.1 ng/ml Recommended as the c linical threshold value forTroponin T. ID Date Data Source [id number] 10/14/2020 12:22:00 AM EDT [facility] Name Value Range Interpretation Code Description Data Melanie rce(s) Supporting Document(s) Prothrombin time (PT) 15.3 SECONDS 11.0 - 15.5 [facility] INR in Platelet poor plasma by Coagulation assay 1.15 0.93 - 1. 23 [facility] \\BLDo\\INR INTERPRETATION\\BLDx\\ Therapeutic range for Coumadin and related oral a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. - International Normalized Ratio (INR): 2.0 - 3.0 for Venous Thrombosis, Pulmonary Embolus, Tissue heart valves, Acute NH, Atrial Fibrillation, Valvular heart disease and recurrent Systemic Embolism. -International Normalized Ratio (INR): 2.5 - 3.5 for Mechanical Prosthetic valve. ID Date Data Source [id number] 10/14/2020 12:22:00 AM EDT [facility] Name Value Range Interpretation Code Description Data Melanie rce(s) Supporting Document(s) Lactate [Moles/volume] in Serum or Plasma 1.4 MMOL/L 0.2 - 2.2 [facility] ID Date Data Source [id number] 10/14/2020 12:22:00 AM EDT [facility] Name Value Range Interpretation Code Description Data Melanie rce(s) Supporting Document(s) pH of Serum or Plasma 7.37 7.32 - 7.43 [facility] pCO2 V 56.1 mm/HG 38.0 - 51.0 H [facility] pO2 V 39.7 mm/HG 30.0 - 55.0 [facility] Bicarbonate [Moles/volume] in Venous blood 31.5 meq/L 22.0 - 29.0 H [facility] TCO2 V 33.2 meq/L 22.0 - 29.[address] [facility] pital Base excess in Blood by calculation 4.9 -2.0 - 2.0 H [facility] O2 SAT V 73.4 % 40.0 - 85.0 [facility] ital ID Date Data Source [id number] 10/14/2020 12:10:00 AM EDT [facility] Name Value Range Interpretation Code Description Data Melanie rce(s) Supporting Document(s) CBC W/AUTOMATED DIFF [facility] COMPLETE BLOOD COUNT Leukocytes [#/volume] in Blood by Automated count 5.8 10^3/uL 4.2 - 1 1.0 [facility] Erythrocytes [#/volume] in Blood by Automated count 3.92 10^6/uL 4. 20 - 5.40 L [facility] Hemoglobin [Mass/volume] in Blood 11.9 g/dL 12.0 - 16.0 L [facility] Hematocrit [Volume Fraction] of Blood by Automated count 36.6 % 3 7.0 - 47.0 L [facility] Erythrocyte mean corpuscular volume [Entitic volume] by Auto mated count 93.4 fL 81.0 - 101 [facility] Erythrocyte mean corpuscular hemoglobin [Entitic mass] by Automated count 30.4 pg 27.0 - 34.0 [facility] Erythrocyte mean corpuscular hemoglobin concentration [Mass/volume] by Automated count 32.5 g/dL 31.0 - 36.0 [facility] Erythrocyte distribution width [Ratio] by Automated count 15.5 % 11.5 - 14.5 H [facility] Platelets [#/volume] in Blood by Automated count 204 10^3/uL 150 - 45 0 [facility] Platelet mean volume [Entitic volume] in Blood by Automated count 8.4 fL 7.4 - 10.4 [facility] Neutrophils/100 leukocytes in Blood by Automated count 43.7 % 37. 0 - 80.0 [facility] Lymphocytes/100 leukocytes in Blood by Manual count 45.6 % 25.0 - 40.0 H [facility] Monocytes/100 leukocytes in Blood by Automated count 6.2 % 3.0 - 8.0 [facility] Eosinophils/100 leukocytes in Blood by Automated count 4.0 % 0.0 - 7.0 [facility] Basophils/100 leukocytes in Blood by Automated count 0.3 % 0.0 - 2.5 [facility] %IG 0.2 % 0.0 - 0.0 H [facility] al %NRBC 0.0 % 0.0 - 0.0 [facility] Neutrophils [#/volume] in Blood by Automated count 2.54 10^3/uL 2.00 - 6.90 [facility] Lymphocytes [#/volume] in Blood by Automated count 2.65 10^3/uL 0.60 - 3.40 [facility] Monocytes [#/volume] in Blood by Automated count 0.36 10^3/uL 0.00 - 0.90 [facility] Eosinophils [#/volume] in Blood by Automated count 0.23 10^3/uL 0.00 - 0.70 [facility] Basophils [#/volume] in Blood by Automated count 0.02 10^3/uL 0.00 - 0.20 [facility] #IG 0.01 10^3/uL 0.00 - 0.10 [facility] #NRBC 0.00 10^3/uL 0.00 - 0.00 [facility] MANUAL DIFF NOT INDICATED [facility] RBC MORPH NOT INDICATED [facility] spital ID Date Data Source [id number] 10/18/2020 02:37:00 PM EDT [facility] Name Value Range Interpretation Code Description Data Melanie rce(s) Supporting Document(s) CULTURE URINE [facility] _CULTURE URINE_$$[id number]$$[id number]$$[id number]$$[id number]$$[id number]$$[id number]$$[id number]$$[id number]$$[id number]$$ 385688$$701667$$152492$$698574$$147813$$312529$$379712$$768675$$148559$$735473$$ 438186$$383448$$429651$$136905$$872364$$530704$$[id number]$$[id number] -- Continued on next page --Patient: CANDIDO MARIO Order: Page 2Culture: CULTURE URINE Status: Final ==== -- Continued on next page --Patient: CANDIDO MARIO Order: Page 2Culture: CULTURE URINE Status: Prelim ===== -- Continued on next page --Patient: CANDIDO MARIO Order: Page 2Culture: CULTURE URINE Status: Prelim =====$$[id number] DATE/TIME: 10/18/2020 12:06Culture: CULTURE URINE Status: FinalIsolate 1 Enterococcus faecalis Flag: A . . . . . . .7Greater than 100,000 colony forming units per mL Previous result entered on 10/17/2020 14:24 ET Enterococcus faecalisSusceptibility results being verified. Final report to follow. Previous result entered on 10/17/2020 05:41 ET Microbiological testing to rule out the presence of possible pathogensis in progress.Urine Culture,Comprehensive: P3Quyurwwiefld faecalis Flag: APatient: CANDIDO MARIO Order: Page 3Culture: CULTURE URINE Status: Final ISOLATE 1 Enterococcus faecalis Isolate 1Antibiotic YONG IntUnits ug/mL ----Ciprofloxacin R R . . . . . .185-9Levofloxacin R R . . . . . .00863-9Sujbeoywyupfzo S S . . . . . .363-2Penicillin S S . . . . . .6932-8Tetracycline R R . . . . . .496- 0Vancomycin S S . . . . . .524-9P1 Test performed by: [facility] #: [id number] [address] [place] [id number] [facility] [id number] Director : Ross Jeffers MD NPI #:Elevating Grader Operator : 10/17/20.0658.XMT.SENT REF 10/18/20.0700.XMT.SENT REF 10/18/20.1437.XMT.SENT REF ID Date Data Source [id number] 10/13/2020 11:45:00 PM EDT [facility] ([facility]) Name Value Range Interpretation Code Description Data Melanie rce(s) Supporting Document(s) Urinalysis Laboratory test result [facility] ([facility]) SOURCE: Clean Catch Source Laboratory test result [facility] ([facility]) SOURCE: Clean Catch Clarity Laboratory test result [facility] ([facility]) SOURCE: Clean Catch Color Laboratory test result [facility] ([facility]) SOURCE: Clean Catch Spec [place] 1.010 1.001-1.030 [facility] ([facility]) SOURCE: Clean Catch Glucose Laboratory test result [facility] ([facility]) SOURCE: Clean Catch pH 7 5-9 [facility] ([facility]) SOURCE: Clean Catch Bilirubin Laboratory test result [facility] ([facility]) SOURCE: Clean Catch Ketone Laboratory test result [facility] ([facility]) SOURCE: Clean Catch Protein Laboratory test result [facility] ([facility]) SOURCE: Clean Catch Blood 25 Abnormal (applies to non-numeric res ults) [facility] ([facility]) SOURCE: Clean Catch Nitrite Laboratory test result [facility] ([facility]) SOURCE: Clean Catch Leuk Est 500 Abnormal (applies to non-numeric res ults) [facility] ([facility]) SOURCE: Clean Catch Urobilinogen Laboratory test result MEDE NT ([facility]) SOURCE: Clean Catch Microscopic Laboratory test result MEDEN T ([facility]) SOURCE: Clean Catch WBC Laboratory test result Abnormal (applies to non -numeric results) [facility] ([facility]) SOURCE: Clean Catch RBC Laboratory test result [facility] ([facility]) SOURCE: Clean Catch Epithelial Laboratory test result Abnormal (applies to non -numeric results) [facility] ([facility]) SOURCE: Clean Catch Bacteria Laboratory test result Abnormal (applies to non -numeric results) [facility] ([facility]) SOURCE: Clean Catch ID Date Data Source [id number] 10/13/2020 11:45:00 PM EDT [facility] Name Value Range Interpretation Code Description Data Melanei rce(s) Supporting Document(s) Culture Urine Laboratory test result [facility] ([facility]) SOURCE: Clean Catch ID Date Data Source [id number] 10/14/2020 12:22:00 AM EDT [facility] Name Value Range Interpretation Code Description Data Melanie rce(s) Supporting Document(s) URINALYSIS [facility] URINALYSIS SOURCE R [facility] COLOR yellow NORMAL: Yellow [facility] CLARITY hazy NORMAL: Clear [facility] Specific gravity of Urine by Test strip 1.010 1.001 - 1.030 [facility] 7 5 - [facility] Gl[facility] [Mass/volume] in Urine by Test strip NORM NORMAL: Negat [facility] Bilirubin.total [Presence] in Urine by Test strip NEG NORMAL: Negative [facility] Ketones [Presence] in Urine by Test strip NEG NORMAL: Negative [facility] Protein [Mass/volume] in Urine by Test strip NEG NORMAL: Negat [facility] Nitrite [Presence] in Urine by Test strip NEG NORMAL: Negative [facility] BLOOD 25 NORMAL: Negative [facility] Leukocyte esterase [Presence] in Urine by Test strip 500 KANE L: Negative [facility] Urobilinogen [Mass/volume] in Urine by Test strip NOR less deanna n 1.0 mg/dL [facility] MICROSCOPIC See Below [facility] ital WBC 7 - 10 NORMAL: NONE SEEN A [facility] Erythrocytes [#/volume] in Urine by Test strip 1 - 3 NORMAL: NON E SEEN [facility] EPITHELIAL MODERATE NORMAL: NONE SEEN A [facility] Bacteria [Presence] in Urine sediment by Light microscopy 2+ MOD NORMAL: NONE SEEN A [facility] ID Date Data Source [id number] 09/16/2020 05:22:00 AM EST [facility] ([facility]) Name Value Range Interpretation Code Description Data Melanie rce(s) Supporting Document(s) Bedside Glucose 82 mg/dL 80-115 [facility] ([facility]) ID Date Data Source [id number] 09/16/2020 04:34:00 AM EST [facility] ([facility]) Name Value Range Interpretation Code Description Data Melanie rce(s) Supporting Document(s) Urine Culture Laboratory test result [facility] ([facility]) <content>FULL REPORT IN LAB NOTES (eCW [...] FOR ESBL</content>
<content></content> ID Date Data Source [id number] 09/09/2020 12:43:00 AM EST [facility] Name Value Range Interpretation Code Description Data Melanie rce(s) Supporting Document(s) Laboratory test finding (navigational concept) 39.0 % 38.0-51.0 [facility] ([facility]) Laboratory test finding (navigational concept) 85 mg/dL 70-105 [facility] ([facility]) Laboratory test finding (navigational concept) 4.1 meq/L 3.5-5.1 [facility] ([facility]) Laboratory test finding (navigational concept) 142 meq/L 136-145 [facility] ([facility]) Laboratory test finding (navigational concept) 5.1 mg/dL 4.5-5.3 [facility] ([facility]) Laboratory test finding (navigational concept) 106 meq/L 98-109 [facility] ([facility]) Laboratory test finding (navigational concept) 18 mg/dL 8-26 [facility] ([facility]) Laboratory test finding (navigational concept) 29.0 MM/L 23.0-27.0 [facility] Laboratory test finding (navigational concept) 0.9 mg/dL 0.6-1.3 [facility] ID Date Data Source [id number] 09/09/2020 12:37:00 AM EST [facility] Name Value Range Interpretation Code Description Data Melanie rce(s) Supporting Document(s) Lipoprotein lipase [Enzymatic activity/volume] in Serum or P lasma 141 U/L 73-393 [facility] ID Date Data Source [id number] 09/09/2020 12:37:00 AM EST [facility] ([facility]) Name Value Range Interpretation Code Description Data Melanie rce(s) Supporting Document(s) Ast/Sgot 10 U/L 7-37 [facility] Alt/SGPT 16 U/L 12-78 [facility] Alkaline Phosphatase 60 U/L 45-117 [facility] ([facility]) Bilirubin,Total 0.2 mg/dL 0.2-1.0 [facility] ([facility]) Bilirubin,Direct Laboratory test result 0.0-0.2 [facility] ([facility]) Total Protein 7.2 GM/DL 6.4-8.2 [facility] ([facility]) Albumin 3.2 GM/DL 3.2-5.2 [facility] Albumin/Globulin Ratio 0.8 1.2-2.2 [facility] ([facility]) ID Date Data Source [id number] 09/09/2020 12:37:00 AM EST [facility] ([facility]) Name Value Range Interpretation Code Description Data Melanie rce(s) Supporting Document(s) White Blood Count 5.2 10 4.0-10.0 [facility] ([facility]) Hemoglobin 11.7 g/dL 12.0-15.5 [facility] ([facility]) Red Blood Count 4.06 10 4.00-5.40 [facility] ([facility]) Hematocrit 38.6 % 36.0-47.0 [facility] ([facility]) Mean Corpuscular Volume 95.1 fl 80.0-96.0 [facility] ([facility]) Mean Corpuscular Hemoglobin 28.8 pg 27.0-33.0 [place] [facility] ([facility]) Mean Corpuscular HGB Conc 30.3 g/dL 32.0-36.5 [facility]E NT ([facility]) Platelet Count, Automated 180 10 150-450 [facility] ([facility]) Red Cell Distribution Width 14.7 % 11.5-14.5 [place] [facility] ([facility]) Neutrophils % 50.9 % 36.0-66.0 [facility] ([facility]) Lymph % 37.5 % 24.0-44.0 [facility] [place] % 7.9 % 2.0-8.0 [facility] Eos % 3.3 % 0.0-3.0 [facility] Baso % 0.2 % 0.0-1.0 [facility] Immature Granulocyte % 0.2 % 0-3.0 [facility] ([facility]) Nucleated Red Blood Cell % 0.0 % 0-0 [facility] ([facility]) Neutrophils # 2.6 10 1.5-8.5 [facility] ([facility]) Lymph # 1.9 10 1.5-5.0 [facility] [place] # 0.4 10 0.0-0.8 [facility] Eos # 0.2 10 0.0-0.5 [facility] Baso # 0.0 10 0.0-0.2 [facility] ID Date Data Source [id number] 08/12/2020 08:01:00 AM EST [facility] ([facility]) Name Value Range Interpretation Code Description Data Melanie rce(s) Supporting Document(s) Reflex Urine Culture Laboratory test result [facility] ([facility]) <content>FULL REPORT IN LAB NOTES (eCW [...] FOR ESBL</content>
<content></content> ID Date Data Source [id number] 08/12/2020 08:01:00 AM EST [facility] Name Value Range Interpretation Code Description Data Melanie rce(s) Supporting Document(s) Color, Urine RFX Laboratory test result [facility] ([facility]) Appearance, Urine RFX Laboratory [facility] PH,Urine RFX 7.0 units 5.0-9.0 [facility] ([facility]) Specific [place] Ur Auto RFX 1.008 1.002-1.035 [facility]) Protein, Urine Auto RFX Laboratory test result [facility] ([facility]) Ketone, Urine Auto RFX Laboratory test result [facility] ([facility]) Glucose, Urine (Ua) Auto RFX Laboratory test result [facility] ([facility]) Bilirubin, Urine Auto RFX Laboratory test result [facility] ([facility]) Urobilinogen, Urine Auto RFX 0.2 mg/dL 0.0-2.0 [facility] ([facility]) Nitrite, Urine Auto RFX Laboratory test [facility]) Blood, Urine Blood RFX Laboratory test result [facility] ([facility]) Leukocyte Esterase Ur Auto RFX Laboratory test result [facility] ([facility]) WBC, Urine Auto RFX 9 /HPF 0-3 [facility] Bacteria, Urine Auto RFX Laboratory test result [facility] ([facility]) RBC, Urine Auto RFX 9 /HPF 0-3 [facility] Squam Epithelial Cell Ur Aurfx 5 /HPF 0-6 [facility] Hyaline Cast, Urine Auto RFX 0 /LPF 0-1 M [facility] Mucus, Urine RFX Laboratory test result [facility] ([facility]) Amorphous Sediment RFX Laboratory test result [facility] ([facility]) ID Date Data Source [id number] 08/12/2020 07:52:00 AM EST [facility] Name Value Range Interpretation Code Description Data Melanie rce(s) Supporting Document(s) Gats Culture (Neg Strep SCR) Laboratory test result [facility] ([facility]) FULL REPORT IN LAB NOTES (eCW and [facility] ). NEGATIVE FOR STREP PYOGENES (GROUP A) ID Date Data Source [id number] 08/12/2020 06:51:00 AM EST [facility] ([facility]) Name Value Range Interpretation Code Description Data Melanie rce(s) Supporting Document(s) Influenza A Amplification Laboratory test result [facility] ([facility]) Negative results do not preclude influen za or RSV virus infection and should not be used as the sole basis for treatment or other patient management decisions. RSV Amplification Laboratory test result [facility] ([facility]) Negative results do not preclude influen za or RSV virus infection and should not be used as the sole basis for treatment or other patient management decisions. Influenza B Amplification Laboratory test result [facility] ([facility]) Negative results do not preclude influen za or RSV virus infection and should not be used as the sole basis for treatment or other patient management decisions. Laboratory test finding (navigational concept) Laboratory test result [facility] ([facility]) A false negative result may occur [...] pathogens. DISCLAIMER: Testing was performed using the [employer] SARS-CoV-2 test. This test was developed and its performance characteristics determined by [employer]. This test has not been FDA cleared [...] or revoked sooner. ID Date Data Source [id number] 08/12/2020 06:51:00 AM EST [facility] Name Value Range Interpretation Code Description Data Melanie rce(s) Supporting Document(s) SARS coronavirus 2 RNA [Presence] in Res piratory specimen by MIL[facility] with probe detection NEGATIVE [facility] This lab was ordered by [facility] a nd reported by [facility]. ID Date Data Source [id number] 07/22/2020 04:54:00 AM EST [facility] ([facility]) Name Value Range Interpretation Code Description Data Melanie rce(s) Supporting Document(s) Reflex Urine Culture Laboratory test result [facility] ([facility]) <content>FULL REPORT IN LAB NOTES (eCW [...] 1 S</content>
<content></content> ID Date Data Source [id number] 07/22/2020 04:54:00 AM EST [facility] ([facility]) Name Value Range Interpretation Code Description Data Melanie rce(s) Supporting Document(s) Color, Urine RFX Laboratory test result [facility] ([facility]) Appearance, Urine RFX Laboratory test result [facility] ([facility]) PH,Urine RFX 7.0 units 5.0-9.0 [facility] Specific [place] Ur Auto RFX 1.005 1.002-1.035 [facility] ([facility]) Protein, Urine Auto RFX Laboratory test result [facility] ([facility]) Glucose, Urine (Ua) Auto RFX Laboratory test result [facility] ([facility]) Urobilinogen, Urine Auto RFX 0.2 mg/dL 0.0-2.0 [facility] Ketone, Urine Auto RFX Laboratory test result [facility] ([facility]) Nitrite, Urine Auto RFX Laboratory test result [facility] ([facility]) Bilirubin, Urine Auto RFX Laboratory test result [facility] ([facility]) Leukocyte Esterase Ur Auto RFX Laboratory test result [facility] ([facility]) Blood, Urine Blood RFX Laboratory test result [facility] ([facility]) WBC, Urine Auto RFX 11 /HPF 0-3 [facility] RBC, Urine Auto RFX 1 /HPF 0-3 [facility] ([facility]) Squam Epithelial Cell Ur Aurfx 0 /HPF 0-6 [facility] ([facility]) Bacteria, Urine Auto RFX Laboratory test result [facility] ([facility]) Hyaline Cast, Urine Auto RFX 0 /LPF 0-1 M [facility] ([facility]) Mucus, Urine RFX Laboratory test result [facility] ID Date Data Source [id number] 07/01/2020 06:35:00 AM EST [facility] 1 OrderSheet [facility] Emergency Department [address] [place] [address] Phone #: ext- [phone] 07/01/2020 06:35 Patient: [...] rce(s) Supporting Document(s) ID Date Data Source [id number] 07/01/2020 06:35:00 AM EST [facility] 1 Medication Reconciliation Report [facility] Emergency Department [address] [place] [address] Phone #: ext- [phone] 07/01/2020 06:35 Patient: [...] the Emergency Department: 2 Medication Reconciliation Report [facility] Emergency Department [address] [place] [address] Phone #: ext- [phone] 07/01/2020 06:35 Patient: FABIANO RAMIREZ Sex: F : 1955 Age: 64yNone.The following Medications were prescribed to the patient:ciprofloxacin 250 mg tablet Take 1 tablet twice a day for 7 days -- Dispense 14 tablet. Refills: 0.Substitution permitted.Pharmacy - [facility] - [address] ; [place] [address]. . -- Xavier Robertson, Physician Name Value Range Interpretation Code Description Data Melanie rce(s) Supporting Document(s) ID Date Data Source [id number] 07/01/2020 06:35:00 AM EST [facility] 1 Medication Administration Record [facility] Emergency Department [address] [place] [address] Phone #: ext- [phone] 07/01/2020 06:35 Patient: FABIANO RAMIREZ Sex: F : 1955 Age: 64yWeight: 76.2 kgHeight/Length: 59 inBMI: 34ALLERGIES: Darvacet, Demerol, MicrodentinDate/Time Medication Administered Medication Ordered Name Value Range Interpretation Code Description Data Melanie rce(s) Supporting Document(s) ID Date Data Source [id number] 07/01/2020 06:35:00 AM EST [facility] 1 General Instructions [facility] Emergency Department [address] [place] [address] Phone #: ext- [phone] 07/01/2020 06:35 Patient: [...] Dispense 14 tablet. Refills: 0.Substitution permitted.Pharmacy - [facility] - [address] ; [place] [address]. .Follow-up:Follow up with your healthcare provider in four days. Call for an appointment.Understanding of the discharge instructions v erbalized by patient. ADDITIONAL INFORMATION 2 General Instructions [facility] Emergency Department [address] [place] [address] Phone #: ext- [phone] 07/01/2020 06:35 Patient: [...] or burning when urinating 3 General Instructions [facility] Emergency Department [address] [place] [address] Phone #: ext- [phone] 07/01/2020 06:35 Patient: [...] (dehydration) Constipation Having sex 4 General In [facility] Emergency Department [address] [place] [address] Phone #: ext- [phone] 07/01/2020 06:35 Patient: [...] flush out your bladder. 5 General Instructions [facility] Emergency Department [address] [place] [address] Phone #: yve- [phone] 07/01/2020 06:35 Patient: FABIANO RAMIREZ Sex: F [...] swelling in the outer vaginal area (labia) [id number] [employer]. [address] [place] [address]. All rights reserved. This information is not intended as asubstitute for professional medical care. Always follow your healthcare professional's instructions. You have been given the following additional information: Bladder Infection, Female (Adult) 6 General Instructions [facility] Emergency Department [address] [place] [address] Phone #: ext- [phone] 07/01/2020 06:35 Patient: FABIANO RAMIREZ Sex: F : 1955 Age: 64y(Electronically signed by Xavier Robertson, Physician 07/01/2020 08:41) Name Value Range Interpretation Code Description Data Melanie rce(s) Supporting Document(s) ID Date Data Source [id number] 07/01/2020 06:35:00 AM EST [facility] 1 Clinical Report - Nurses [facility] Emergency Department [address] [place] [address] Phone #: ext- [phone] 07/01/2020 06:35 Patient: FABIANO RAMIREZ Sex: F : 1955 Age: 64yTRIAGEArrived by EMS. Historian: patient.Triage time: 06:35 07/01/2020. Acuity: LEVEL 4.Chief Complaint: PAINFUL URINATION.Onset. (2 days). 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 No [...] Clements R.N.PROBLEMS: 2 Clinical Report - Nurses [facility] Emergency Department [address] [place] [address] Phone #: ext- [phone] 07/01/2020 06:35 Patient: [...] of urine. 3 Clinical Report - Nurses [facility] Emergency Department [address] [place] [address] Phone #: ext- [phone] 07/01/2020 06:35 Patient: [...] rce(s) Supporting Document(s) ID Date Data Source [id number] 07/01/2020 06:35:00 AM [facility] 1 Clinical Report - Physicians/Mid Levels [facility] Emergency Department [address] [place] [address] Phone #: ext- [phone] 07/01/2020 06:35 Patient: FABIANO RAMIREZ Sex: F [...] Appendectomy. 2 Clinical Report - Physicians/Mid Levels [facility] Emergency Department [address] [place] [address] Phone #: ext- [phone] 07/01/2020 06:35 Patient: [...] turgor. 3 Clinical Report - Physicians/Mid Levels [facility] Emergency Department [address] [place] [address] Phone #: ext- [phone] 07/01/2020 06:35 Patient: [...] ankle pain.INSTRUCTIONS 4 Clinical Report - Physicians/[facility] Emergency Department [address] [place] [address] Phone #: ext- [phone] 07/01/2020 06:35 [id number] Sex[facility] F : 1955 Age: 64y Drink [...] tablet. Refills: 0. Substitution permitted. Pharmacy - [facility] - [address] ; [place] [address]. . Follow-up: Follow up with your healthcare provider in four days. Call for an appointment. Understanding of the discharge instructions verbalized by patient.(Electronically signed by Xavier Robertson, Physician 07/01/2020 08:41) Name Value Range Interpretation Code Description Data Melanie rce(s) Supporting Document(s) ID Date Data Source [id number] 07/01/2020 06:50:00 AM EST [facility] ([facility]) Name Value Range Interpretation Code Description Data Melanie rce(s) Supporting Document(s) Culture Urine Laboratory test result [facility] ([facility]) <content>_CULTURE URINE_</content>
<content>^$321522</content>
<content>^^521970</content>
<content>$$149769</content>
<content>^^474240</content>
<content>$$ 387577</content>
<content>$$822341</content>
<content>$$077305</content>
<content>$$ 664801</content>
<content>$$376583</content>
<content>$$924129</content>
<content> $$006418</content>
<content>$$106050</content>
<content>$$443068</conten t>
<content>$$273755</content>
<content>$$183585</content>
<content> $$957068</content>
<content>$$449464</content>
<content>$$309393</content>
<content>$$65059 0</content>
<content>$$109097</content>
<content>$$308543</content>
<content>$$744171</content>
<content>$$206745</content>
<content>$$181697</content>
<content>$$ 090833</content>
<content>$$197783</content>
<content>$$349167</content>
<content> ^^085787</content>
<content>$$295653</content>
<content>$$903220</conten t>
<content>$$235602</content>
<content></content>
<content>-- Continued on next page --</content>
<content>Patient: CANDIDO MARIO Order: [id number] Page 2</content>
<content>Culture: CULTURE URINE Status: Final</laron nt>
<content> < /content>
<content></content>
<content></content>
<content>-- Continued on next page --</content>
<content>Patient: CANDIDO MARIO Order: [id number] Page 2</content>
<content>Culture: CULTURE URINE Status: Prelim</content>
<content> < /content>
<content></content>
<content></content>
<content>-- Continued on next page --</content>
<content>Patient: CANDIDO MARIO Order: [id number] Page 2</content>
<content>Culture: CULTURE URINE Status: Prelim</content>
<content> < /content>
<content></content>
<content>$$[id number]</content>
<content>$ $[id number]</content>
<content></content>
<content>REPORTED DATE/TIME: 07/05/2020 11:06</content>
<content>Culture: CULTURE [...]
<content></content>
<content></content>
<content> Patient: CANDIDO MARIO Order: [id number] Page 3</content>
<content>Culture: CULTURE URINE Status: Final</content>
[...] S S . . . . . .79605-0</content>
<content>Gentamicin S S . . . . . .267-5</content>
<content>Imipenem S S . . . . . .279-0</content>
<content>Levofloxacin S S . . . . . .31508-4</content>
<content>Meropenem S S . . . . . .6652-2</content>
<content>Nitrofurantoin S S . . . . . .363-2</content>
<content>Piperacillin/Tazobactam S S . . . . . .412-7</content>
<content>Tetracycline S S . . . . . .496-0</content>
<content>Tobramycin S S . . . . . .508-2</content>
<content>Trimethoprim/Sulfa S S . . . . . .516-5</content>
<content></content>
<content>P1 Test performed by: Rose HURTADO #: [id number]</content>
<content>[address]</content>
<content>[id number]</content>
<content>[place] [id number]</content>
<content>Signalling And Communications Engineer : Ross Jeffers MD NPI #:</content>
<content>Elevating Grader Operator :</content>
<content>07/03/20.1551.XMT.SENT REF</content>
<content>07/04/20.1209.XMT.SENT REF</content>
<content>07/05/20.1201.XMT.SENT REF</content>
<content></content>
<content></content> ID Date Data Source [id number] 07/01/2020 06:50:00 AM EST [facility] Name Value Range Interpretation Code Description Data Melanie rce(s) Supporting Document(s) Urinalysis Laboratory test result [facility] URINALYSIS Source Laboratory test result [facility] ([facility]) SOURCE: Clean Catch Color Laboratory test result [facility] SOURCE: Clean Catch Clarity Laboratory test result [facility] SOURCE: Clean Catch Spec [place] 1.010 1.001-1.030 [facility] SOURCE: Clean Catch pH 7 5-9 [facility] SOURCE: Clean Catch Glucose Laboratory test result [facility] SOURCE: Clean Catch Bilirubin Laboratory test result [facility] ([facility]) SOURCE: Clean Catch Ketone Laboratory test result [facility] SOURCE: Clean Catch Protein Laboratory test result [facility] SOURCE: Clean Catch Nitrite Laboratory test result [facility] SOURCE: Clean Catch Blood 150 Abnormal (applies to non-numeric res ults) [facility] SOURCE: Clean Catch Leuk Est 500 Abnormal (applies to non-numeric res ults) [facility] SOURCE: Clean Catch Urobilinogen Laboratory test result [facility] NT ([facility] SOURCE: Clean Catch Microscopic Laboratory test result [facility] T ([facility]) SOURCE: Clean Catch WBC Laboratory test result Abnormal (applies to non -numeric results) [facility] ([facility]) SOURCE: Clean Catch RBC Laboratory test result Abnormal (applies to non -numeric results) [facility] ([facility]) SOURCE: Clean Catch Epithelial Laboratory test result Abnormal (applies to non -numeric results) [facility] ([facility]) SOURCE: Clean Catch Bacteria Laboratory test result Abnormal (applies to non -numeric results) [facility] ([facility]) SOURCE: Clean Catch ID Date Data Source [id number] 07/05/2020 12:01:00 PM EST [facility] Name Value Range Interpretation Code Description Data Melanie rce(s) Supporting Document(s) CULTURE URINE [facility] _CULTURE URINE_$$[id number]$$[id number]$$705429$$966356$$414061$$297330$$948858$$612424$$061610$$ 714283$$240326$$741960$$227521$$426969$$829009$$537209$$623131$$295783$$217765$$ 840227$$867439$$954023$$026780$$646564$$033335$$663485$$[id number] -- Continued on next page --Patient: ABRANIERE FABIANO Order: [id number] Page 2Culture: CULTURE URINE Status: Final ==== -- Continued on next page --Patient: LETTIERE FABIANO Order: [id number] Page 2Culture: CULTURE URINE Status: Prelim ===== -- Continued on next page --Patient: CANDIDO MARIO Order: [id number] Page 2Culture: CULTURE URINE Status: Prelim =====$$[id number]$$[id number] DATE/TIME: 07/05/2020 11:06Culture: CULTURE URINE Status: FinalIsolate [...] presence of possible pathogensis in progress.Urine Culture,Comprehensive: [id number] coli Flag: APatient: CANDIDO MARIO Order: [id number] Page 3Culture: CULTURE URINE Status: Final ====ISOLATE [...] S S . . . . . .25051-9Jxxvmoxswz S S . . . . . .267-5Imipenem S S . . . . . .279- 0Levofloxacin S S . . . . . .47615-9Tokktkczz S S . . . . . .6652-2Nitrofurantoin S S . . . . . .363-2Piperacillin/Tazobactam S S . . . . . .412-7Tetracycline S S . . . . . .496-0Tobramycin S S . . . . . .508-2Trimethoprim/Sulfa S S . . . . . .516-5P1 Test performed [facility]: [facility] #: [id number] [address] [place] [id number] [facility] [id number] Director : Ross Jeffers MD NPI #:Elevating Grader Operator : 07/03/20.1551.XMT.SENT REF 07/04/20.1209.XMT.SENT REF 07/05/20.1201.XMT.SENT REF ID Date Data Source [id number] 07/01/2020 07:08:00 AM EST [facility] Name Value Range Interpretation Code Description Data Melanie rce(s) Supporting Document(s) UR[facility]ALYSIS [facility] URINALYSIS SOURCE R [facility] COLOR yellow NORMAL: Yellow [facility] CLARITY clear NORMAL: Clear [facility] Specific gravity of Urine by Test strip 1.010 1.001 - 1.030 [facility] pH 7 5 - 9 [facility] Glucose [Mass/volume] in Urine by Test strip NORM NORMAL: [facility] Bilirubin.total [Presence] in Urine by Test strip NEG NORMAL: Negative [facility] Ketones [Presence] in Urine by Test strip NEG NORMAL: Negative [facility] Protein [Mass/volume] in Urine by Test strip NEG NORMAL: Negat [facility] Nitrite [Presence] in Urine by Test strip POS NORMAL: Negative [facility] BLOOD 150 NORMAL: Negative [facility] Leukocyte esterase [Presence] in Urine by Test strip 500 KANE L: Negative [facility] Urobilinogen [Mass/volume] in Urine by Test strip NOR less deanna n 1.0 mg/dL [facility] MICROSCOPIC See Below [facility] ital WBC 5 - 7 NORMAL: NONE SEEN A [facility] Erythrocytes [#/volume] in Urine by Test strip 7 - 10 NORMAL: NON E SEEN A [facility] EPITHELIAL MODERATE NORMAL: NONE SEEN A [facility] Bacteria [Presence] in Urine sediment by Light microscopy 3+ LARGE NORMAL: NONE SEEN A [facility] ID Date Data Source [id number] 06/08/2020 02:10:00 PM EST [facility] ([facility]) Name Value Range Interpretation Code Description Data Melanie rce(s) Supporting Document(s) Erythrocytes [#/volume] in Blood by Automated count 4.16 x10*6/UL 4.2 0-6.30 [facility] ([facility]) Leukocytes [#/volume] in Blood by Automated count 5.4 x10*3/UL 4.1-10 .9 [facility] ([facility]) Hemoglobin [Mass/volume] in Blood 12.5 g/dL 12.0-18.0 [facility] ([facility]) Hematocrit [Volume Fraction] of Blood by Automated count 37.8 % 3 7.0-51.0 [facility] ([facility]) MCHC 33.0 g/dL 31.0-38.0 [facility] MCH 30.1 pg 26.0-32.0 [facility] MCV 91.0 fL 80.0-97.0 [facility] Platelets [#/volume] in Blood by Automated count 219 x10*3/UL 140-440 [facility] ([facility]) Erythrocyte distribution width [Ratio] by Automated count 14.4 % 11.6-13.7 [facility] ([facility]) MPV 6.9 FL 7.8-11.0 [facility] Lymph % 27.9 % 10.0-58.5 [facility] Neut % 65.6 % 37.0-92.0 [facility] Mid % 6.5 % 1.7-9.3 [facility] Neut # 3.5 x10*3/UL 2.0-7.8 [facility] ([facility]) Lymph # 1.5 x10*3/UL 0.6-4.1 [facility] ([facility]) Mid # 0.4 x10*3/UL 0.1-0.6 [facility] ([facility]) ID Date Data Source [id number] 05/04/2020 01:59:00 PM EDT [facility] ([facility]) Name Value Range Interpretation Code Description Data Melanie rce(s) Supporting Document(s) Triglyceride [Mass/volume] in Serum or Plasma 186 mg/dL 30-150 [facility] ([facility]) Cholesterol [Mass/volume] in Serum or Plasma 180 mg/dL 131-200 [facility] ([facility]) Cholesterol in HDL [Mass/volume] in Serum or Plasma 55 mg/dL 35-60 [facility] ([facility]) Cholesterol in LDL [Mass/volume] in Serum or Plasma by calcu lation 88 CALC 50-159 [facility] ([facility]) ID Date Data Source [id number] 05/04/2020 01:59:00 PM EDT [facility] ([facility]) Name Value Range Interpretation Code Description Data Melanie rce(s) Supporting Document(s) Glucose [Mass/volume] in Serum or Plasma 86 mg/dL 74-99 [facility] ([facility]) 100-125 mg/dL PRE-DIABETES/FASTING >126 mg/dL DIABETES/FASTING Urea nitrogen [Mass/volume] in Serum or Plasma 14 mg/dL 7-18 [facility] ([facility]) Creatinine 1.0 mg/dL 0.6-1.3 [facility] Sodium [Moles/volume] in Serum or Plasma 144 meq/L 136-145 [facility] ([facility]) Chloride [Moles/volume] in Serum or Plasma 105 meq/L 98-107 [facility] ([facility]) Potassium [Moles/volume] in Serum or Plasma 4.0 meq/L 3.5-5.1 [facility] ([facility]) Calcium [Mass/volume] in Serum or Plasma 9.9 mg/dL 8.5-10.1 [facility] ([facility]) Carbon dioxide, total [Moles/volume] in Serum or Plasma 36 meq/L 21 -32 [facility] ([facility]) Total Bilirubin 0.2 mg/dL 0.2-1.0 [facility] ([facility]) Alkaline phosphatase isoenzyme [Units/volume] in Serum or Pl asma 55 mg/dL 46-116 [facility] ([facility]) Aspartate aminotransferase [Enzymatic activity/volume] in Serum or Plasma 23 U/L 15-37 [facility] ([facility] ) Alanine aminotransferase [Enzymatic activity/volume] in Seru m or Plasma 26 U/L 12-78 [facility] ([facility]) Albumin [Mass/volume] in Serum or Plasma 3.7 g/dL 3.4-5.0 [facility] ([facility]) Proteinase 3 Ab [Units/volume] in Serum 7.7 g/dL 6.4-8.2 [facility] ([facility]) Glomerular filtration rate/1.73 sq M pre dicted among blacks [Volume Rate/Area] in Serum or Plasma by Creatinine-based formula (MDRD) Laboratory test result [facility] <content>CHRONIC KIDNEY DISEASE STAGING PER NKF</content>
<content></content>
<content>STAGE I & II GFR >= 60 NORMAL TO MILDLY DECREASED</content>
<content>STAGE III GFR 30-59 MODERATELY DECREASED</content>
<content>STAGE IV GFR 15-29 SEVERELY DECREASED</content>
<content>STAGE V GFR <15 VERY LITTLE GFR LEFT</content>
<content>ESRD GFR <15 ON GUIDE TOUR</content>
<content></content> A/G Ratio 0.93 CALC 1.00-1.90 [facility] ([facility]) Glomerular filtration rate/1.73 sq M pre dicted among non-blacks [Volume Rate/Area] in Serum or Plasma by Creatinine-based formula (MDRD) 56 mL/min [facility] ([facility]) ID Date Data Source [id number] 05/04/2020 01:59:00 PM EDT [facility] ([facility]) Name Value Range Interpretation Code Description Data Melanie rce(s) Supporting Document(s) Leukocytes [#/volume] in Blood by Automated count 5.8 x10*3/UL 4.1-10 .9 [facility] Hemoglobin [Mass/volume] in Blood 12.1 g/dL 12.0-18.0 [facility] Erythrocytes [#/volume] in Blood by Automated count 4.06 x10*6/UL 4.2 0-6.30 [facility] MCV 91.6 fL 80.0-97.0 [facility] ([facility]) Hematocrit [Volume Fraction] of Blood by Automated count 37.2 % 3 7.0-51.0 [facility] MCHC 32.6 g/dL 31.0-38.0 [facility] ([facility]) MCH 29.8 pg 26.0-32.0 [facility] ([facility]) Erythrocyte distribution width [Ratio] by Automated count 14.4 % 11.6-13.7 [facility] Platelets [#/volume] in Blood by Automated count 240 x10*3/UL 140-440 [facility] MPV 7.1 FL 7.8-11.0 [facility] Lymph % 26.4 % 10.0-58.5 [facility] Mid % 7.1 % 1.7-9.3 [facility] Neut % 66.5 % 37.0-92.0 [facility] Neut # 3.8 x10*3/UL 2.0-7.8 [facility] ([facility]) Mid # 0.5 x10*3/UL 0.1-0.6 [facility] ([facility]) Lymph # 1.5 x10*3/UL 0.6-4.1 [facility] ([facility]) ID Date Data Source [id number] 04/23/2020 01:44:00 PM EDT [facility] ([facility]) Name Value Range Interpretation Code Description Data Melanie rce(s) Supporting Document(s) Lactate [Mass/volume] in Serum or Plasma 1.3 mmol/L 0.4-2.0 [facility] ([facility]) Y/N query for Sepsis Lactate Rule: Y ID Date Data Source [id number] 04/01/2020 06:10:00 AM EDT [facility] ([facility]) Name Value Range Interpretation Code Description Data Melanie rce(s) Supporting Document(s) Appearance, Urine RFX Laboratory test result [facility] Color, Urine RFX Laboratory test result [facility] ([facility]) PH,Urine RFX 8.0 units 5.0-9.0 [facility] ([facility]) Protein, Urine Auto RFX Laboratory test result [facility] ([facility]) Specific [place] Ur Auto RFX 1.006 1.002-1.035 [facility] ([facility]) Ketone, Urine Auto RFX Laboratory test result [facility] ([facility]) Glucose, Urine (Ua) Auto RFX Laboratory test result [facility] ([facility]) Bilirubin, Urine Auto RFX Laboratory test result [facility] ([facility]) Urobilinogen, Urine Auto RFX 0.2 mg/dL 0.0-2.0 [facility] ([facility]) Leukocyte Esterase Ur Auto RFX Laboratory test result [facility] ([facility]) Nitrite, Urine Auto RFX Laboratory test result [facility] ([facility]) Blood, Urine Blood RFX Laboratory test result [facility] WBC, Urine Auto RFX 1 /HPF 0-3 [facility] Bacteria, Urine Auto RFX Laboratory test result [facility] RBC, Urine Auto RFX 2 /HPF 0-3 [facility] ([facility]) Squam Epithelial Cell Ur Aurfx 1 /HPF 0-6 [facility] Hyaline Cast, Urine Auto RFX 0 /LPF 0-1 [facility] Amorphous Sediment RFX Laboratory test result [facility] Procedure Social History No Information Vital Signs ID Date Data Source UNK Name Value Range Interpretation Code Description Data Source(s) Systolic blood pressure 134 mm[Hg] 134 mm[Hg] [facility] ([facility]) Diastolic blood pressure 84 mm[Hg] 84 mm[Hg] [facility] ([facility]) Heart rate 87 /min 87 /min [facility] ([facility]) Oxygen saturation in Arterial blood by Pulse oximetry 93 % 93 % [facility] ([facility]) Body temperature 97.0 [degF] 97.0 [degF] [facility] ([facility]) Body height 59 [in_i] 59 [in_i] [facility] ([facility]) 4'11" Body weight 152.00 [lb_av] 152.00 [lb_av] [facility] ([facility]) Body mass index (BMI) [Ratio] 30.7 kg/m2 30.7 k g/m2 [facility] ([facility]) [place] body weight 100 [lb_av] 100 [lb_av] [facility] Body weight 68.947 kg 68.947 kg [facility] ([facility]) Body surface area Derived from formula 1.64 m2 1.64 m2 [facility] ([facility]) Systolic blood pressure 122 mm[Hg] 122 mm[Hg] [facility] Diastolic blood pressure 80 mm[Hg] 80 mm[Hg] [facility] ([facility]) Heart rate 102 /min 102 /min [facility] ([facility]) Body height 59 [in_i] 59 [in_i] [facility] ([facility]) 4'11" Body weight 157.00 [lb_av] 157.00 [lb_av] [facility] ([facility]) Oxygen saturation in Arterial blood by Pulse oximetry 97 % 97 % [facility] ([facility]) Body mass index (BMI) [Ratio] 31.7 kg/m2 31.7 k g/m2 [facility] ([facility]) Body mass index (BMI) [Ratio] 31.5 kg/m2 31.5 k g/m2 [facility] ([facility]) Heart rate 94 /min 94 /min [facility] ([facility]) Body height 59 [in_i] 59 [in_i] [facility] ([facility]) 4'11" Body weight 156.00 [lb_av] 156.00 [lb_av] [facility] ([facility]) Oxygen saturation in Arterial blood by Pulse oximetry 96 % 96 % [facility] ([facility]) Systolic blood pressure 116 mm[Hg] 116 mm[Hg] [facility] Diastolic blood pressure 72 mm[Hg] 72 mm[Hg] [facility] ([facility]) Heart rate 94 /min 94 /min [facility] ([facility]) Body height 59 [in_i] 59 [in_i] [facility] ([facility]) 4'11" Body weight 155.00 [lb_av] 155.00 [lb_av] [facility] ([facility]) Oxygen saturation in Arterial blood by Pulse oximetry 96 % 96 % [facility] ([facility]) Body mass index (BMI) [Ratio] 31.3 kg/m2 31.3 k g/m2 [facility] ([facility])
[2021-05-26] MEDS ORDERED: NS 1,000 ML IV ONE (11:05)
[2021-05-26 11:20] LABS: BASO % 0.5 % (0.0-1.0); EOS # 0.2 10^3/uL (0.0-0.5); HEMOGLOBIN 11.8 g/dl (12.0-15.5); LYMPH # 1.8 10^3/uL (1.5-5.0); LYMPH % 32.3 % (24.0-44.0); MEAN CORPUSCULAR HEMOGLOBIN 29.2 pg (27.0-33.0); MEAN CORPUSCULAR HGB CONC 31.1 g/dl (32.0-36.5); MEAN CORPUSCULAR VOLUME 94.1 fl (80.0-96.0); MONO # 0.3 10^3/uL (0.0-0.8); NEUTROPHILS # 3.2 10^3/uL (1.5-8.5); NEUTROPHILS % 56.8 % (36.0-66.0); PLATELET COUNT, AUTOMATED 173 10^3/uL (150-450); RED BLOOD COUNT 4.04 10^6/uL (4.00-5.40); WHITE BLOOD COUNT 5.5 10^3/uL (4.0-10.0)
[2021-05-26 11:49] LABS: ALT/SGPT 18 U/L (12-78); BILIRUBIN,DIRECT < 0.1 MG/DL (0.0-0.2); BILIRUBIN,TOTAL 0.2 MG/DL (0.2-1.0); BLOOD UREA NITROGEN 13 MG/DL (7-18); CALCIUM LEVEL 9.1 MG/DL (8.8-10.2); CARBON DIOXIDE LEVEL 28 MEQ/L (21-32); CHLORIDE LEVEL 110 MEQ/L (98-107); CREATININE FOR GFR 0.67 MG/DL (0.55-1.30); GLOMERULAR FILTRATION RATE > 60.0 (>45); GLUCOSE, FASTING 76 MG/DL (70-100); LIPASE 112 U/L (73-393); SODIUM LEVEL 140 MEQ/L (136-145); TOTAL PROTEIN 7.3 GM/DL (6.4-8.2)
[2021-05-26 12:49] VITALS: BP 148/77
[2021-05-26] MEDS ORDERED: cefTRIAXone SOD 500 MG in D5W MINI-BAG PLUS 50 ML IV ONE (13:00)
[2021-05-26] MEDS ORDERED: ACETAMINOPHEN 325 MG TAB PO ONE (13:50)
== END 2021-05-26 14:26 | disposition home or self-care (01) ==
LOC: M ED 07:32
DX: N39.0 Urinary tract infection, site not specified (principal); E86.0 Dehydration; N31.9 Neuromuscular dysfunction of bladder, unspecified; F31.9 Bipolar disorder, unspecified; G43.909 Migraine, unspecified, not intractable, without status migrainosus; Z86.718 Personal history of other venous thrombosis and embolism; Z87.440 Personal history of urinary (tract) infections
CPT/HCPCS: 80048; 80076; 81001; 83690; 85025; 87088; 87186; 96361; 96365; 96366; 99284; J0696

== ENCOUNTER 2021-06-29 22:26 | Emergency (ER) | payer MEDICARE, MEDICAID ==
[~2021-06-29] VITALS: Ht 149.9 cm; Wt 77.3 kg
[2021-06-29] MEDS ORDERED: PROM25TA12 PO (22:39)
[2021-06-29] MEDS ORDERED: ZOFR4TAB16 PO (22:40)
--- OUTSIDE RECORDS SUMMARY | 2021-06-29 22:41 | CCD ---
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 Active confirmed 617596144 Problem Urinary retention R33.9 Active confirmed 26 6730688 Problem Neurogenic bladder N31.9 Active confirmed 3 58481404 Problem Urinary tract infection, site not specified N39.0 Active confirmed 49885205 Problem Neuromuscular dysfunction of bladder, unspecified N31.9 Active confirmed 411524118 ALLERGIES Allergen (clinical drug ingredient) Drug/Non Drug Allergy do cumented on EMR Reaction Allergy Type Onset Date Status Darvocet-N 100 Hives Drug Allergy Active meperidine Demerol(NDC Code:[address]-33) Hives Drug Allergy Active nitrofurantoin Macrodantin(NDC Code:[address]-43) Hives Drug Al lergy Active nitrofurantoin, macrocrystals / nitrofurantoin, monohy drate Macrobid(NDC Code:[address]-27) Nausea/Vomiting Drug Allergy Active Penicillin G Benzathine Hives Drug Allergy Active ENCOUNTERS from 1955 to 2021-05-29 Encounter Location Date Provider Diagnosis [facility] [phone] [place] [address] May, Jossue Mcnair IMMUNIZATIONS Vaccine Route Administration Date Status Influenza 6mo & up Fluzone Unknown October 02, 2017 Admin istered Influenza 6mo & up Fluzone Unknown February 02, 2015 Refus ed SOCIAL HISTORY Sex Assigned At : Social History Observation Description Sex Assigned At Unknown REASON FOR REFERRAL No Information VITAL SIGNS No information MEDICATIONS Medication SIG (Take, Route, Frequency, Duration) Notes Start Da te End Date Status Loperamide HCl 2 MG 1 capsule Orally 8 time(s) a day Active Lidocaine 5 % 1 application to affected area as needed Externally PRN Unknown Promethazine HCl 25 MG 1 tablet at bedtime Orally prn for 30 day(s) Active Pyridium 100 MG 1 tablet after meals Orally Three times a day as needed for urinary pain Mar, Unknown Albuterol Unknown as directed inhalation as directed Active Catheters 16 fr Latex 1 intravesically change monthly and as nee ded Jun, Unknown Sudafed 30 mg 2 tablet as needed Orally bid Active Miralax 17g 17 grams orally as directed for as needed for constipation for up to 30 days Active Augmentin 500-125 MG 1 tablet Orally every 12 hrs for 10 day(s) Sep, Unknown Meclizine HCl 50 mg 1 tablet as needed Orally bid for 30 day(s) Active HYDROcodone-Acetaminophen 7.5-750 MG 1 tablet as needed Orally ever y 4 hrs Active Vitamin D 92343 1 tablet Orally once a week Active Zofran 4 MG 2 tablets Orally Once a day Active Potassium Chloride 20 MEQ/15ML (10%) 15 ml Orally Once a day Active Motrin IB 200 MG 2 tablet as needed Orally every 6 hrs Active KlonoPIN 0.25 MG 1 tablet at bedtime Orally Once a day, nightly Active Bactrim DS 800-160 MG 1 tablet Orally bid for 10 day(s) Feb, Unknown Flexeril 5 MG 1 tablet Orally Three times a day Active Lidocaine Viscous 2 % 5 ml as needed transurethral every 4 weeks or prn Feb, Unknown LaMICtal 25 MG as directed Orally bid Active Fosfomycin 3 g 3 g dissolved in 4 oz of water orally every 3 da ys for 3 doses Feb, Active Omnicef 300 MG 1 cap bid for 10 day(s) May, Active Nitrofurantoin Monohyd Macro 100 MG 1 capsule with brittany d Orally every 12 hrs for 7 day(s) Dec, Active Lidocaine HCl Jelly MCC 2 % 1 application Intravesical ly 1 dose prior to catheter insertion Aug, Unknown Ampicillin 500 MG 1 capsule 1 hour before or 2 hours after a meal Orally every 6 hrs for 10 day(s) Feb, Unknown Lomotil 2.5-0.025 MG 1 tablet as needed Orally Four times a day Active Pyridium 200 MG 1 tablet after meals Orally Three times a day as needed for urinary pain Mar, Unknown ZyPREXA 2.5 MG 1 tablet Orally Once a day Active PROCEDURES No Information RESULTS No Results REASON FOR VISIT ER f/u UTI MEDICAL (GENERAL) HISTORY Type Description Date Medical History NEUROGENIC BLADDER Medical History ASTHMA Medical History TMJ Medical History MINERES DISEASE Medical History BIPOLAR DISORDER Medical History SPINAL TUMOR Surgical History APPENDECTOMY 2006 Surgical History ALL TEETH EXTRACTED 2006 Surgical History SPINAL TUMOR REMOVED 2006 Surgical History CHOLECYSTECTOMY 2006 Hospitalization History Surgicaly related Hospitalization History Colonoscopy 02/26/16 Hospitalization History in [facility] ER catheter changed 11/29/17 Goals Section No Information Health Concerns No Information MEDICAL EQUIPMENT No Information MENTAL STATUS No Information FUNCTIONAL STATUS No Information ASSESSMENTS No Information PLAN OF TREATMENT Medication Medication Name Sig Start Date Stop Date Omnicef 300 MG 1 cap bid for 10 day(s) May, Next Appt Details Provider Name:Rolando Sheriff, 2020-12-0 9 03:30:00 PM, [address], , [place], [address], Insurance Providers Payer Name Payer Address Payer Phone Insured Name Patient Relati onship to Insured Coverage Start Date Coverage End Date MEDICARE Part A and B [address] [facility] [id number] [phone] FABIANO REY self MEDICAID [employer] [address] [facility] [id number] FABIANO REY self
--- OUTSIDE RECORDS SUMMARY | 2021-06-29 22:43 | CCD ---
Author Author [facility] Organization [facility] Address Unknown Phone Unavailable Care Team Providers Care Resin Coater Name Role Phone MARK, F XAVIER DO [...] XAVIER DO Unavailable Unavailable Hospital Lab, Area [place] Unavailable Unavailable Serge Echeverria MD Unavailable Unavailable [...] is protected by Article 27-F of the [facility] Public Health law. If you continue you may have access to information: Regarding HIV / AIDS; Provided by facilities licensed or operated by the [facility] Office of Mental Health; or Provided by the [facility] Office for People With Developmental Disabilities. If such information is present, then the following [facility] mandated warning applies: This information has been [...] law may result in a fine or fpc sentence or both. A general authorization for the release of medical or other information is NOT sufficient authorization for further disc losure. Family History Family Member Name Family Member Gender Family Member Status Date o f Status Description Data Source(s) Unknown Male Problem [facility] ([facility] () Unknown Female Problem [facility] Unknown Female Problem [facility] ([facility]) Unknown Female Problem [facility] ([facility]) Encounters Encounter Providers Location Date Indications Data Source(s ) Emergency Attender: Serge Echeverria MDConsultant: Diasy CHENEY 03/04/2021 11:38:00 AM EDT - 03/04/2021 02:32:00 PM EDT [facility] Patient discharged. Emergency Attender: Serge Echeverria MDConsultant: Daisy RODRIGUEZ ANP 02/17/2021 07:58:00 AM EDT - 02/17/2021 10:25:00 AM EDT [facility] Patient discharged. Emergency Attender: XAVIER ROBERTSON DOConsultant: Daisy CHENEY 12/10/2020 05:37:00 AM EDT - 12/10/2020 07:15:00 AM EDT [facility] Patient discharged. Emergency Attender: KAREN SAUCEDO MDConsultant: Susan RODRIGUEZ ANP 12/01/2020 12:20:00 PM EDT - 12/01/2020 04:50:00 PM EDT [facility] Patient discharged. Outpatient Attender: [facility] 10/14/2020 12:0 4:00 AM EDT [facility] Emergency Attender: KAREN SAUCEDO MDConsultant: Susan RODRIGUEZ ANP 10/13/2020 11:01:00 PM EDT - 10/14/2020 04:24:00 AM EDT [facility] Patient discharged. Outpatient Attender: Daisy Craig 05/2021 01:40:00 PM EST [facility] ([facility] ) Emergency Attender: HENRI BOYLE MDConsultant: Daisy TREVINO ANP 07/01/2020 06:35:00 AM EST - 07/01/2020 07:46:00 AM EST [facility] Patient discharged. Outpatient Attender: Daisy Craig 01:45:00 PM EST [facility] ([facility] ) Outpatient Attender: Daisy Craig 02:45:00 PM EDT [facility] ([facility] ) Immunizations Vaccine Date Status Description Data Source(s) COVID-19 VACCINE [facility] 04/11/2021 12:00:00 AM EDT completed [facility] Vaccine Series Complete: YESThis Data wa s Submitted to [facility] [employer]. COVID-19 VACCINE Pfizer 03/21/2021 12:00:00 AM EDT completed [facility] Vaccine Series Complete: NOThis Data was Submitted to [facility] [employer]. Influenza, injectable, MDCK, preservative free, stefania valent 05/01/2020 02:55:00 PM EDT completed [facility] Medications Medication Brand Name Start Date Product Form Dose Route Admi nistrative Instructions Pharmacy Instructions Status Indications Reaction Description Data Source(s) 1 gram 06/25/2021 12:00:00 AM EST tablet 120 TAKE THREE TABLETS BY MOUTH TWICE A DAY MAY INCREASE DURING EPISODES OF EXTREME DIARRHEA MAXIMUM DAILY DOSE = 9 TABLETS TAKE THREE TABLETS BY MOUTH TWICE A DAY MAY INCREASE DURING EPISODES OF EXTREME DIARRHEA MAXIMUM DAILY DOSE = 9 TABLETS SOLD: 06/25/2021 [facility] 23 X 36 " 06/24/2021 12:00:00 AM EST pad 300 APPLY TO BED NEEDED FOR UP TO 10 A DAY APPLY TO BED NEEDED FOR UP TO 10 A DAY SOLD: 06/25/2021 [facility] 5 mg 06/23/2021 12:00:00 AM EST tablet 180 TAKE ONE TABLET BY MOUTH TWICE A DAY TAKE ONE TABLET BY MOUTH TWICE A DAY SOLD: 06/25/2021 [facility] 125 mg 06/23/2021 12:00:00 AM EST tablet,chewable 100 CHEW 1 TABLET BY MOUTH AFTER EACH MEAL AND BEFORE BED CHEW 1 TABLET BY MOUTH AFTER EACH MEAL A ND BEFORE BED SOLD: 06/25/2021 [facility] 25 mg 06/22/2021 12:00:00 AM EST tablet 90 TAKE ONE TABLET BY MOUTH EVERY DAY TAKE ONE TABLET BY MOUTH EVERY DAY SOLD: 06/25/2021 [facility] Atropine Sulfate 0.025 MG / Diphenoxylat e Hydrochloride 2.5 MG Oral Tablet 2.5- 0.025 mg DIPHENOXYLATE HCL/ATROPINE 06/20/2021 12:00:00 AM EST tablet 30 TAKE ONE TABLET BY MOUTH EVERY DAY NEEDED FOR DIARRHEA MAXIMUM DAILY DOSE = 1 TABLET TAKE ONE TABLET BY MOUTH EVERY DAY NE EDED FOR DIARRHEA MAXIMUM DAILY DOSE = 1 TABLET SOLD: 06/25/2021 [facility] Cyclobenzaprine hydrochloride 10 MG Oral Tablet CYCLOBENZAPR INE HCL 06/18/2021 12:00:00 AM EST tablet 60 TAKE ONE TABLET BY MOUTH TWICE A DAY NEEDED TAKE ONE TABLET BY MOUTH TWICE A DAY NEEDED SOLD: 06/19/2021 [facility] 0.5 mg 06/05/2021 12:00:00 AM EST tablet 60 TAKE ONE TABLET BY MOUTH TWICE A DAY MAXIMUM DAILY DOSE = 2 TABLETS TAKE ONE TABLET BY MOUTH TWICE A DAY MAX IMUM DAILY DOSE = 2 TABLETS SOLD: 06/05/2021 [facility] olanzapine 5 MG Oral Tablet OLANZAPINE 06/05/2021 12:00:00 AM EST tabl et 90 TAKE ONE TABLET BY MOUTH THREE TIMES A DAY TAKE ONE TABLET BY MOUTH THREE TIMES A DAY SOLD: 06/05/2021 [facility] 300 mg 05/28/2021 12:00:00 AM EST capsule 20 TAKE ONE CAPSULE BY MOUTH TWICE A DAY FOR 10 DAYS TAKE ONE CAPSULE BY MOUTH TWICE A DAY FOR 10 DAYS SOLD : 05/29/2021 [facility] 200 mg calcium (500 mg) 05/21/2021 12:00:00 AM EDT tablet,ch ewable 180 TAKE 2 TABLETS BY MOUTH THREE TIMES A DAY TAKE 2 TABLETS BY MOUTH THREE TIMES A DAY SOLD: 05/22/2021 [facility] 30 mg 05/13/2021 12:00:00 AM EDT tablet 60 TAKE ONE TABLET BY MOUTH TWICE A DAY TAKE ONE TABLET BY MOUTH TWICE A DAY SOLD: 05/15/2021 [facility] 30 mg 05/13/2021 12:00:00 AM EDT tablet 60 TAKE ONE TABLET BY MOUTH TWICE A DAY TAKE ONE TABLET BY MOUTH TWICE A DAY SOLD: 06/05/2021 [facility] Cyclobenzaprine hydrochloride 10 MG Oral [...] DRINK DIRECTED SOLD: 05/08/2021 [facility] ELECTROLYTES/DEXTROSE 05/08/2021 12:00:00 AM EDT solution 3 000 DRINK DIRECTED DRINK DIRECTED SOLD: 06/05/2021 [facility] 500 mg 05/06/2021 12:00:00 [...] = 5 CAPSULES SOLD: 04/24/2021 [facility] 2 mg 04/24/2021 12:00:00 AM EDT capsule 120 TAKE 1 CAPSULE BY MOUTH AFTER EACH LOOSE STOOL MAXIMUM DAILY DOSE = 5 CAPSULES TAKE 1 CAPSULE BY MOUTH AFTER EACH LOOSE STOOL MAXIMUM DAILY DOSE = 5 CAPSULES SOLD: 06/19/2021 [facility] 0.5 mg 04/10/2021 12:00:00 AM [...] USE DIRECTED 8 TIMES PER DAY SOLD: 05/31/2021 [facility] DIAPER,BRIEF,ADULT, DISPOSABLE 04/09/2021 12:00:00 AM EDT mi sc 234 USE DIRECTED 8 TIMES PER DAY USE DIRECTED 8 TIMES PER DAY SOLD: 04/10/2021 [facility] DIAPER,BRIEF,ADULT, DISPOSABLE 04/09/2021 12:00:00 AM EDT mi sc 234 USE DIRECTED 8 TIMES PER DAY USE DIRECTED 8 TIMES PER DAY SOLD: 06/25/2021 [facility] 100 mg 04/01/2021 12:00:00 AM [...] EACH MEAL A ND BEFORE BED SOLD: 06/05/2021 [facility] 125 mg 03/31/2021 12:00:00 [...] MAXIMUM DAILY DOSE = 6 TABLETS SOLD: 05/29/2021 [facility] 325 mg 03/19/2021 12:00:00 AM [...] FOR UP TO 10 A DAY SOLD: 06/05/2021 [facility] 23 X 36 " 03/06/2021 [...] FOR UP TO 10 A DAY SOLD: 05/29/2021 [facility] 23 X 36 " 03/06/2021 [...] DOSE = 1 TABLET SOLD: 01/27/2021 [facility] 25 mg 01/23/2021 12:00:00 AM EDT tablet 30 TAKE ONE TABLET BY MOUTH EVERY DAY (BENADRYL) TAKE ONE TABLET BY MOUTH EVERY DAY (BENADRYL) SOLD: 01/27/2021 [facility] Meclizine Hydrochloride 25 MG Oral Tablet MECLIZINE [...] 6 HOURS NEEDED FOR N AUSEA SOLD: 06/19/2021 [facility] Ondansetron 4 MG Disintegrating Oral [...] Antacid 11/07/2020 12:00:00 AM EDT active MEDENT ([facility]) 30 mg 11/07/2020 12:00:00 [...] 09/20/2020 12:00:00 AM EST ORAL active [facility]) 2.5-0.025 mg 09/12/2020 12:00:00 AM [...] DAILY DOSE = 9 TABLETS SOLD: 09/05/2020 [facility] Colestipol Hydrochloride 1000 MG Oral Tablet Colestipol [...] MAXIMUM DAILY DOSE = 9 TABLETS SOLD: 06/25/2021 [facility] 1 gram 09/05/2020 12:00:00 AM [...] DAILY DOSE = 9 TABLETS SOLD: 11/28/2020 [facility] olanzapine 5 MG Oral Tablet OLANZAPINE 09/03/2020 [...] TWO TIMES A DAY SOLD: 07/18/2020 [facility] olanzapine 5 MG Oral Tablet Olanzapine 07/12/2020 12:00:00 AM EST ORAL active [facility] ([facility]) 0.5 mg 07/12/2020 12:00:00 AM EST tablet 60 TAKE ONE TABLET BY MOUTH TWICE A DAY MAXIMUM DAILY DOSE = TWO TABLETS TAKE ONE TABLET BY MOUTH TWICE A DAY MAXIMUM DAILY DOSE = TWO TABLETS SOLD: 07/18/2020 [facility] Cyclobenzaprine hydrochloride 10 MG Oral Tablet CYCLOBENZAPR INE HCL 07/11/2020 12:00:00 AM EST tablet 60 TAKE ONE TABLET BY MOUTH TWICE A DAY NEEDED TAKE ONE TABLET BY MOUTH TWICE A DAY NEEDED SOLD: 08/08/2020 [facility] Cyclobenzaprine hydrochloride 10 MG Oral Tablet CYCLOBENZAPR [...] EVERY DAY (BENADRYL) SOLD: 07/11/2020 [facility] Cyclobenzaprine hydrochloride 10 MG Oral Tablet CYCLOBENZAPR INE HCL 07/11/2020 12:00:00 AM EST tablet 60 TAKE ONE TABLET BY MOUTH TWICE A DAY NEEDED TAKE ONE TABLET BY MOUTH TWICE A DAY NEEDED SOLD: 10/10/2020 [facility] Cyclobenzaprine hydrochloride 10 MG Oral [...] DAILY DOSE = SIX TABLETS SOLD: 07/11/2020 [facility] Acetaminophen 325 MG Oral Tablet Acetaminophen 06/06/2020 12:00:00 AM EST active [facility] ([facility]) Meclizine Hydrochloride 25 MG Oral Tablet MECLIZINE HCL 05/30/2020 12:00:00 AM EST tablet 90 TAKE ONE TABLET BY MOUTH VICKI RY 8 HOURS NEEDED FOR DIZZINESS TAKE ONE TABLET BY MOUTH EVERY 8 HOURS NEEDED FOR DIZZINESS SOLD: 10/10/2020 [facility] Meclizine Hydrochloride 25 MG Oral Tablet MECLIZINE [...] Olanzapine 05/01/2020 12:00:00 AM EDT completed [facility] ([facility]) 2 mg 05/01/2020 12:00:00 AM EDT tablet 7 TAKE ONE TABLET BY MOUTH EVERY DAY TAKE ONE TABLET BY MOUTH EVERY DAY SOLD: 05/02/2020 [facility] olanzapine 5 MG Oral Tablet OLANZAPINE 05/01/2020 12:00:00 AM EDT tabl et 14 TAKE ONE TABLET BY MOUTH TWICE A DAY TAKE ONE TABLET BY MOUTH TWICE A DAY SOLD: 06/20/2020 [facility] 30 mg 04/18/2020 12:00:00 AM [...] BEFORE BED SOLD: 07/25/2020 [facility] 137 mcg (0.1 %) 01/27/2020 12:00:00 AM [...] A DAY NEEDED SOLD: 06/13/2020 [facility] 100-50 mcg/dose 01/13/2020 12:00:00 AM [...] = 5 CAPSULES SOLD: 05/02/2020 [facility] 23 X 36 " 10/27/2019 12:00:00 AM EDT pad 150 APPLY TO BED NEEDED UP TO 10 TIMES PER DAY APPLY TO BED NEEDED UP TO 10 TIMES PER DAY SOLD: 05/02/2020 [facility] 5 mg 10/12/2019 12:00:00 AM EDT tablet 180 TAKE ONE TABLET BY MOUTH TWICE A DAY TAKE ONE TABLET BY MOUTH TWICE A DAY SOLD: 07/18/2020 [facility] 1 gram 07/27/2019 12:00:00 AM EST tablet 150 TAKE THREE TABLETS BY MOUTH TWICE A DAY MAY INCREASE DURING EPISODES OF EXTREME DIARRHEA MAXIMUM DAILY DOSE = 9 TABLETS TAKE THREE TABLETS BY MOUTH TWICE A DAY MAY INCREASE DURING EPISODES OF EXTREME DIARRHEA MAXIMUM DAILY DOSE = 9 TABLETS SOLD: 07/28/2020 [facility] Insurance Providers Payer name Policy type / Coverage type Policy ID Covered democrat ID Covered democrat's relationship to laura Policy Laura Plan Information Medicare Natl Govt [facility] Medicare Primary [id number] Self [id number] Medicare [facility] Medicare Primary [id number] Self [id number] Medicare Natl Govt Servic Medicare Primary [id number] Self [id number] Medicare Natl Govt Servic Medicare Primary [id number] Self [id number] Medicare Natl Govt Servic Medicare Primary [id number] Self [id number] Medicare - NGS Medicare Primary [id number] Self [id number] Medicare Natl Govt Servic Medicare Primary [id number] Self Medicare Natl Govt Servic Medicare Primary [id number] Self [id number] Medicare - NGS Medicare Primary [id number] Self [id number] Medicare Natl Govt Servic Medicare Primary [id number] Self [id number] Medicare Natl Govt Servic Medicare Primary [id number] Self 0 [id number] Medicare Natl Govt Servic Medicare Primary [id number] Self [id number] BS [place] Medigap Part B [id number] Self MEDICARE [id number] SP [id number] BS [place] Medigap Part B [id number] Self [id number] BS [place] Commercial [id number] [id number] Self [id number] MEDICARE [id number] SP [id number] [place] Primary [id number] Self Medicaid [place] Medig[place] Part B [id number] Self MEDICAID [id number] SP [id number] Medicaid Medigap Part B [id number] 0.0 Self [id number] MEDICAID M [id number] S [id number] MEDICAID [id number] SP [id number] ANSI-Medicare Part B [id number] ANSI-Medicaid [id number] ANSI-Medicare Part B [id number] ANSI-Medicaid [id number] ANSI-Medicare Part B [id number] ANSI-Medicaid [id number] ANSI-Medicare Part B [id number] ANSI-Medicaid [id number] ANSI-Medicaid [id number] ANSI-Medicare Part B [id number] MEDICARE [id number] SP [id number] ANSI-Medicare Part B [id number] ANSI-Medicaid [id number] Medicaid [facility] Part B [id number] 0.0 Self [id number] Medicaid [place] Medigap Part B [id number] Self [id number] ANSI-Medicaid [id number] ANSI-Medicare Part B [id number] ANSI-Medicare Part B [id number] ANSI-Medicaid [id number] MEDICARE C [id number] S [id number] A Medicaid Medigap Part B [id number] 0.0 Self [id number] Medicaid Medigap Part B [id number] 0.0 Self [id number] Medicaid Medigap Part B [id number] 0.0 Self [id number] Medicaid Medigap Part B [id number] 0.0 Self [id number] [facility] [id number] S [id number] MEDICARE [id number] SP [id number] [place] Medigap Part B [id number] Self Medicaid Medigap Part B [id number] Self 1 1 BS [place] Medigap Part B [id number] Self [id number] BS [place] Medigap Part B [id number] Self [place] 306/806 NOT ACTIVE SP NOT ACTIVE SELF PAY UNAVAILABLE SP UNAVAILA BLE [place] 306/806 [id number] SP [id number] [place] BCBS S [id number] S [id number] [place] PPO 302/307 [id number] SP [id number] [place] [id number] SP [id number] Y [id number] MEDICARE PART A -O/P [id number] 18 [id number] MEDICAID -O/P EMERGENCY ROOM [id number] [place] [id number] SP [id number] MEDICARE C [id number] S [id number] MEDICARE PART A -O/P [id number] 18 [id number] MEDICARE PART A -O/P [id number] 18 [id number] Medicaid Medigap Part B [id number] Self [id number] [place] Med[place] Part B [id number] Self [id number] Medicaid Medigap Part B [id number] 0.0 Self [id number] [place] Medig[place] Part B [id number] Self [id number] [place] Med[place] Part B [id number] Self [id number] [id number] MEDICARE [id number] SP [id number] Medicaid Medigap Part B [id number] 0.0 Self [id number] ANSI-Medicare Part B [id number] ANSI-Medicaid [id number] ANSI-Medicaid [id number] ANSI-Medicare Part B [id number] [facility]-Medicaid [id number] [facility] [id number] Problems, Conditions, and Diagnoses Code Display Name Description Problem Type Effective Dates Data Source(s) I85379 Presence of unspecified artificial hip j oint Presence of unspecified artificial hip joint Diagnosis 03/04/2021 11:38:[address] [facility] [id number] Personal history of nicotine dependence Personal history of nicotine dependence Diagnosis 03/04/2021 11:38:00 AM [facility] Z7901 MCFP (current) use of a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 MCFP (current) use of a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 Diagnosis [facility] Type 2 diabetes mellitus without complic ations Type 2 diabetes mellitus without complications Diagnosis 03/04/2021 11:38:00 AM EDT [facility] I10 Essential (primary) hypertension Essential (primary) h ypertension Diagnosis 03/04/2021 11:38:00 AM [facility] K5900 Constipation, unspecified Constipation, unspecified Di agnosis 03/04/2021 11:38:00 AM [facility] N3000 Acute cystitis without hematuria Acute cystitis without hematuria Diagnosis 02/17/2021 07:58:00 AM [facility] B70560 Pressure ulcer of other site, unspecifie d stage Pressure ulcer of other site, unspecified stage Diagnosis 02/17/2021 07:58:00 AM [facility] N23361 Pain in right foot Pain in right foot Diagnosis 07:58:00 AM [facility] G8929 Other chronic pain Other chronic pain Diagnosis 05:37:00 AM [facility] E48425 Pain in right ankle and joints of right foot Pain in right ankle and joints of right foot Diagnosis 12/10/2020 05:37:[address] [facility] R300 Dysuria Dysuria Diagnosis 12/10/2020 05:37:00 AM ED [facility] R1312 Dysphagia, oropharyngeal phase Dysphagia, oropharyngea l phase Diagnosis 12/01/2020 12:20:00 PM EDT [facility] J029 Acute pharyngitis, unspecified Acute pharyngitis, unsp ecified Diagnosis 12/01/2020 12:20:00 PM EDT [facility] F12712 Unspecified asthma, uncomplicated Unspecified as thma, uncomplicated Diagnosis 10/13/2020 11:01:00 PM [facility] M419 Scoliosis, unspecified Scoliosis, unspecified Diagnosi s 10/13/2020 11:01:00 PM [facility] N3001 Acute cystitis with hematuria Acute cystitis with ilda turia Diagnosis 10/13/2020 11:01:00 PM [facility] R05 Cough Cough Diagnosis 10/13/2020 11:01:00 PM ED [facility] [id number] Personal history of urinary (tract) infe ctions Personal history of urinary (tract) infections Diagnosis 07/01/2020 06:35:00 AM [facility] Z7902 intermission coordinator (current) use of antithromboti cs/antiplatelets MCFP (current) use of antithrombotics/antiplatelets Diagnosis 020 06:35:00 AM [facility] Surgeries/Procedures No Information Results ID Date Data Source [id number] 05/19/2021 11:06:00 AM EDT [facility] Name Value Range Interpretation Code Description Data Melanie rce(s) Supporting Document(s) SARS COVID ANTIGEN NEGATIVE [facility] This lab was ordered by PEYTON vargas nd reported by [facility]. ID Date Data Source [id number] 04/22/2021 08:18:00 AM EDT [facility] Name Value Range Interpretation Code Description Data Melanie rce(s) Supporting Document(s) SARS-CoV-2 (COVID 19) NEGATIVE - SARS-CoV-2 (COVID19) [facility] This lab was ordered by [facility] a nd reported by [facility]. ID Date Data Source [id number] 03/04/2021 11:38:00 AM EDT [facility] 1 OrderSheet [facility] Emergency Department [address] [place] [address] Phone #: [phone] 03/04/2021 11:37 [id number] Sex[facility] F : 1955 Age: 65yWEIGHT:77.1 kg (S) HEIGHT:59 inches (S) BMI:34.4ALLERGIES: Darvacet, Demerol, MicrodentinCHIEF COMPLAINT: abd pain, constipationDIAGNOSIS: ConstipationLAB ORDERSOrder Description Priority Entered Acknowledged InitialedDIAGNOSTIC STUDY ORDERSOrder Description Priority Entered Acknowledged InitialedAbdomen Multiview STAT 13:02 03/04/2021 13:03 [facility](Oxygen?(No)) Anita Fuentes heavy repairerJulio; Tech1 Reason for Study: constipation, lower abd painMEDICATION/IV/DRIP/FLUID ORDERSOrder Description Priority Entered Acknowledged InitialedGENERAL ORDERSOrder Description Priority Entered Acknowledged Initialed[Electronically signed by So Ladd R.N. (14:35 03/04/2021)][Electronically signed by Anita Fuentes (07:30 03/05/2021)][Electronically locked by Tyler Ladd R.N. (14:35 03/04/2021)] Name Value Range Interpretation Code Description Data Melanie rce(s) Supporting Document(s) ID Date Data Source [id number] 03/04/2021 11:38:00 AM EDT [facility] 1 Medication Reconciliation Report [facility] Emergency Department [address] [place] [address] Phone #: ext- [phone] 03/04/2021 11:37 Patient: FABIANO RAMIREZ Sex: F [...] the Emergency Department: 2 Medication Reconciliation Report [facility] Emergency Department [address] [place] [address] Phone #: ext- [phone] 03/04/2021 11:37 Patient: FABIANO RAMIREZ Sex: F : 1955 Age: 65yNone.The following Medications were prescribed to the patient:None. Name Value Range Interpretation Code Description Data Melanie rce(s) Supporting Document(s) ID Date Data Source [id number] 03/04/2021 11:38:00 AM EDT [facility] 1 Medication Administration Record [facility] Emergency Department [address] [place] [address] Phone #: ext- [phone] 03/04/2021 11:37 Patient: FABIANO RAMIREZ Sex: F : 1955 Age: 65yWeight: 77.1 kgHeight/Length: 59 inBMI: 34.4ALLERGIES: Darvacet, Microdentin, DemerolDate/Time Medication Administered Medication Ordered Name Value Range Interpretation Code Description Data Melanie rce(s) Supporting Document(s) ID Date Data Source [id number] 03/04/2021 11:38:00 AM EDT [place] [id number] General Instructions [facility] Emergency Department [address] [place] [address] Phone #: ext- [phone] 03/04/2021 11:37 Patient: [...] by patient. ADDITIONAL INFORMATION 2 General Instructions [facility] Emergency Department [address] [place] [address] Phone #: ext- [phone] 03/04/2021 11:37 Patient: FABIANO RAMIREZ Sex: F [...] aging, work, and travel 3 General Instructions [facility] Emergency Department [address] [place] [address] Phone #: ext- [phone] 03/04/2021 11:37 Patient: [...] your healthcare provider first. 4 General Instructions [facility] Emergency Department [address] [place] [address] Phone #: ext- [phone] 03/04/2021 11:37 Patient: [...] have more tests or see a specialist.Call [phone] if any of these occur: Trouble breathing Stiff, rigid abdomen that is severely painful to touch Confusion Fainting or loss of consciousness Rapid heart rate Chest painWhen to seek medical adviceCall your healthcare provider right away if any of these occur: Fever of 100.4F (38C) or higher, or as directed by your healthcare provider 5 General Instructions [facility] Emergency Department [address] [place] [address] Phone #: ext- [phone] 03/04/2021 11:37 Patient: FABIANO RAMIREZ Sex: F : 1955 Age: 65y Failure to resume normal bowel movements Pain in your abdomen or back gets worse Nausea or vomiting Swelling in your abdomen Blood in the stool Black, tarry stool Involuntary weight loss Weakness 4808-4701 [employer]. [address] [place] [address]. All rights reserved. This information is not [...] high in fiber 6 Genera l Instructions [facility] Emergency Department [address] [place] [address] Phone #: ext- [phone] 03/04/2021 11:37 [id number] Sex: F : 1955 Age: 65yThese foods [...] green peas, celery, eggplant, potatoes, spinach, broccoli, [place] sprouts, winter squash, carrots, cauliflower, soybeans, lentils, and fresh and dried beans of all kinds. Other. Popcorn; any spicesIf you have diverticulosisThere aren't any specific foods to avoid if you have diverticulosis. But each person is different. Theremay be some foods that make your symptoms worse. Keep track and don't eat foods that make youfeel worse. 6226-6005 [employer]. [address] [place] [address]. All rights reserved. This information is not intended as asubstitute for professional medical care. Always follow your health manager home healthcare's instructions. You have been given the following additional information: Constipation (Adult) High-Fiber Diet(Electronically signed by EMRE Puga 03/05/2021 07:30) Name Value Range Interpretation Code Description Data Melanie rce(s) Supporting Document(s) ID Date Data Source [id number] 03/04/2021 11:38:00 AM EDT [facility] 1 Clinical Report - Nurses [facility] Emergency Department [address] [place] [address] Phone #: ext- [phone] 03/04/2021 11:37 Patient: FABIANO RAMIREZ Sex: F : 1955 Age: 65yTRIAGEArrived by EMS. Historian: patient. Unaccompanied.Triage time: late entry - 11:34 03/04/2021. Acuity: LEVEL 3.Chief Complaint: ABDOMINAL PAIN and CONSTIPATION.Alert. No acute distress.Onset. (1 weeks ago). ( Pt hasnt had a normal BM in about a week. Pt was seen at [facility] yesterday andwas unable to tolerate a CT scan. She had a small BM 2 days ago. Pt has c/o of abd pain with a burningsensation.). She has had constipation.Treatment SERVICES ENGINEER:None.SEPSIS SCREEN: SIRS SCREEN NEGATIVE. SEPSIS SCREEN NEGATIVE. [...] (Tablet 10 mg), at bedtime. --11:50 03/04/21 Ladd, So, R.N.AllergiesDemerol. --11:51 03/04/21 So Ladd R.N.Darvacet. 2 Clinical Report - Nurses [facility] Emergency Department [address] [place] [address] Phone #: ext- [phone] 03/04/2021 11:37 Patient: [...] "Do you 3 Clinical Report - Nurses [facility] Emergency Department [address] [place] [address] Phone #: ext- [phone] 03/04/2021 11:37 Patient: [...] Ladd R.N. 4 Clinical Report - Nurses [facility] Emergency Department [address] [place] [address] Phone #: ext- [phone] 03/04/2021 11:37 Patient: [...] F. Pain level now 5/10. --14:19 03/04/21 [place] heavy repairerJulio ER TechMonica late entry - 14:32 03/04/21. Departure time: [...] Patient verbalized understanding. Written instructions provided in Nigerian. The patient was discharged by the physician medical assistant supervisor. She was discharged home and unaccompanied at time of discharge. She left ambulatory and via taxi. 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 --14:34 03/04/21 So Ladd R.N.Locked/Released at 03/04/2021 14:35 by So Ladd R.N. Name Value Range Interpretation Code Description Data Melanie rce(s) Supporting Document(s) ID Date Data Source [id number] 03/04/2021 11:38:00 AM EDT [facility] 1 Clinical Report - Physicians/Mid Levels [facility] Emergency Department [address] [place] [address] Phone #: ext- [phone] 03/04/2021 11:37 Patient: [id number] Sex: F : 1955 Age: 65y Time [...] bed and bathroom." She was seen at [facility] yesterday but was unable to [...] seen recently by a health care provider ([facility] ED yesterday).REVIEW OF SYSTEMSNo chills, [...] Repair. 2 Clinical Report - Physicians/Mid Levels [facility] Emergency Department [address] [place] [address] Phone #: ext- [phone] 03/04/2021 11:37 Patient: FABIANO RAMIREZ Sex: F [...] 3. 3 Clinical Report - Physicians/Mid Levels [facility] Emergency Department [address] [place] [address] Phone #: ext- [phone] 03/04/2021 11:37 Patient: FABIANO RAMIREZ Sex: F : 1955 Age: 65yLABS, X-RAYS, AND EKGLaboratory Tests: Laboratory tests have been ordered, with results reviewed and considered in themedical decision making process. Abdomen Multiview: (OLE: 03/04/2021 13:02) ( MsgRcvd 03/04/2021 15:03) Final results Exam ABDOMEN MULTIPLE VIEW [facility] [address] [place] [address] PHONE: [phone] FAX: [phone] Name .................. : CANDIDO MARIO Acct Number.................. : [id number] ROOM. ................. : [facility]03 MR Number ................... : [id number] Stay type ............. : E/R Discharge Date......... ... : Admit Date ......... : 03/04/21 Admit Phys .................... : IRMA Stallings Date of ....... : 1955 Family Phys ................... : JENNY GARCIA Phone .................. : [phone] Age ................................ : 65 Film# .................. .:[id number] Sex ................................. : F Unsigned transcriptions are preliminary reports and do not represent a medical or legal document ABDOMEN MULTIPLE VIEW [id number] COMPLETE:03/04/21 13:02 [id number] Reason(s): constipation, lower abd pain ABDOMINAL RADIOGRAPH [...] REC 4 Clinical Report - Physicians/Mid Levels [facility] [place] [address] Phone #: ext- [phone] 03/04/2021 11:37 Patient: FABIANO RAMIREZ Sex: F [...] packet. 5 Clinical Report - Physicians/Mid Levels [facility] Emergency Department [address] [place] [address] Phone #: ext- [phone] 03/04/2021 11:37 Patient: FABIANO RAMIREZ Sex: F : 1955 Age: 65y Motrin IB Oral : 400, prn. Potassium Chloride Oral : Packet 20 meq, 2x a day. Promethazine HCl Oral : Tablet 25 mg, prn. Sudafed Oral : 60 mg 2x a day. ZyPREXA Oral : Tablet 10 mg, at bedtime. Follow-up: Follow up with your [facility] provider Daisy Rodriguez NP Friday. Call for an appointment. Reason for referral: evaluation and treatment. Summary of care provided to patient via paper. Understanding of the discharge instructions verbalized by patient.(Electronically signed by EMRE Puga 03/05/2021 07:30) Name Value Range Interpretation Code Description Data Melanie rce(s) Supporting Document(s) ID Date Data Source [id number] 03/04/2021 03:03:00 PM EDT [facility] [address] [place] [address] PHONE: [phone] FAX: [phone] Name .................. : CANDIDO MARIO Acct Number.................. : [id number] ROOM. ................. : TR-03 MR Number ................... : [id number] Stay type ............. : E/R Discharge Date......... ... : Admit Date ......... : 03/04/21 Admit Phys .................... : IRMA Stallings Date of ....... : 1955 Family Phys ................... : JENNY GARCIA Phone .................. : [phone] Age ................................ : 65 Film# .................. .:[id number] Sex ................................. : F Unsigned transcriptions are preliminary reports and do not represent a medical or legal document ABDOMEN MULTIPLE VIEW [id number] COMPLETE:03/04/21 13:02 04414 Reason(s): constipation, lower abd pain ABDOMINAL RADIOGRAPH [...] EMERGENCY DEPT via modem Copy for: [facility] REC Page 1 of 1 Name Value Range Interpretation Code Description Data Melanie rce(s) Supporting Document(s) ID Date Data Source [id number] 02/19/2021 09:47:00 AM EDT [facility] [address] [place] [address] PHONE: [phone] FAX: [phone] Name .................. : CANDIDO MARIO Acct Number.................. : [id number] ROOM. ................. : TR- Number ................... : [id number] Stay type ............. : E/R Discharge Date......... ... : 02/17/21 Admit Date ......... : 02/17/21 Admit Phys .................... : IRMA Stallings Date of ....... : 1955 Family Phys ................... : [employer] Phone .................. : [phone] Age ................................ : 65 Film# .................. .:[id number] Sex ................................. 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 No other abnormalities. 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 Electronically Reviewed and Signed By NIGEL LEVINE MD , 02/19/21 09:47, [facility] Transcribe Initials: SHANNAN , Transcribe Date: 02/17/21 11:42, Dictation Date: Copy for: EMERGENCY DEPT via jonesportm Copy for: 710 MED REC DISCHARGED Page 1 of 1 Name Value Range Interpretation Code Description Data Melanie rce(s) Supporting Document(s) ID Date Data Source [id number] 02/17/2021 07:58:00 AM EDT [facility] 1 OrderSheet [facility] Emergency Department [address] [place] [address] Phone #: ext- [phone] 02/17/2021 07:54 Patient: [...] Acknowledged InitialedSplint (Aircast) R 10:13 02/17/2021 10:15 BurnhamSerge Harris ; heavy repairerJulio ER Tech1[Electronically signed by Naresh Guzman RN (10:25 02/17/2021)][Electronically signed by Serge Echeverria (11:03 02/17/2021)][Electronically locked by Naresh Guzman RN (10:25 02/17/2021)] Name Value Range Interpretation Code Description Data Melanie rce(s) Supporting Document(s) ID Date Data Source [id number] 02/17/2021 07:58:00 AM EDT [facility] 1 Medication Reconciliation Report [facility] Emergency Department [address] [place] [address] Phone #: ext [phone] 02/17/2021 07:54 Patient: FABIANO RAMIREZ Sex: F [...] the Emergency Department: 2 Medication Reconciliation Report [facility] Emergency Department [address] [place] [address] Phone #: ext- [phone] 02/17/2021 07:54 Patient: FABIANO RAMIREZ Sex: F : 1955 Age: 65yNone.The following Medications were prescribed to the patient:Bactrim DS 800 mg-160 mg tablet Take 1 tablet twice a day for 7 days -- Dispense 14 tablet. Refills: 0.Substitution permitted.Pharmacy - [facility] - [address] [facility] ; [place] [address]. . -- Serge Echeverria Name Value Range Interpretation Code Description Data Melanie rce(s) Supporting Document(s) ID Date Data Source [id number] 02/17/2021 07:58:00 AM EDT [place] [address] Medication Administration Record [facility] Emergency Department [address] [place] [address] Phone #: ext- [phone] 02/17/2021 07:54 Patient: FABIANO RAMIREZ Sex: F : 1955 Age: 65yWeight: 67.8 kgHeight/Length: 59 inBMI: 30.2ALLERGIES: Darvacet, Demerol, MicrodentinDate/Time Medication Administered Medication Ordered Name Value Range Interpretation Code Description Data [facility] Supporting Document(s) ID Date Data Source [id number] 02/17/2021 07:58:00 AM EDT [facility] 1 General Instructions [facility] Emergency Department [address] [place] [address] Phone #: ext- [phone] 02/17/2021 07:54 Patient: FABIANO RAMIREZ Sex: F [...] Dispense 14 tablet. Refills: 0.Substitution permitted.Pharmacy - [facility] - [address] ; [place] [address]. .Follow-up:Follow up with your healthcare provider.Understanding of the discharge instructions verbalized by patient. 2 General Instructions [facility] Emergency Department [address] [place] [address] Phone #: ext- [phone] 02/17/2021 07:54 Patient: FABIANO RAMIREZ Sex: F [...] a bladder infection are: 3 General Instructions [facility] Emergency Department [address] [place] [address] Phone #: ext- [phone] 02/17/2021 07:54 Patient: [...] Fluid loss (dehydration) Constipation 4 General Instructions [facility] Emergency Department [address] [place] [address] Phone #: ext- [phone] 02/17/2021 07:54 Patient: FABIANO RAMIREZ Sex: F [...] can irritate your bladder. 5 General Instructions [facility] Emergency Department [address] [place] [address] Phone #: ext- [phone] 02/17/2021 07:54 Patient: [...] if the results will affect your treatment.Call [phone] if any of the following occur: [...] swelling in the outer vaginal area (labia) 2231-4723 [employer]. [address] [place] [address], [place] [address]. All rights reserved. This information is not intended as asubstitute for professional medical care. Always follow your healthcare professional's instructions. 6 General Instructions [facility] Emergency Department [address] [place] [address] Phone #: ext- [phone] 02/17/2021 07:54 Patient: FABIANO RAMIREZ Sex: F : 1955 Age: 65yYou have been given the following additional information:Bladder Infection, Female (Adult)(Electronically signed by Serge Echeverria 02/17/2021 11:03) Name Value Range Interpretation Code Description Data Melanie rce(s) Supporting Document(s) ID Date Data Source [id number] 02/17/2021 07:58:00 AM EDT [facility] 1 Clinical Report - Nurses [facility] Emergency Department [address] [place] [address] Phone #: leg- [phone] 02/17/2021 07:54 Patient: FABIANO RAMIREZ Sex: F : 1955 Age: 65yTRIAGEArrived by EMS. Historian: patient.Acuity: LEVEL 4.Chief Complaint: RIGHT LOWER EXTREMITY PAIN.No injury occurred. Onset. (2 weeks ago). ( Pt states she has had right lower extremity pain for about thepast 2 weeks, she was seen here more than a couple weeks ago and an air splint was applied, she went [facility] yesterday and was released, she reports continued pain and now feels nausea).Treatment SERVICES ENGINEER:None.EMS Treatment SERVICES ENGINEER:EMS treatment verbally communicated and report reviewed. See [...] a day. 2 Clinical Report - Nurses [facility] Emergency Department [address] [place] [address] Phone #: ext- [phone] 02/17/2021 07:54 Patient: [...] Guzman RN. 3 Clinical Report - Nurses [facility] Emergency Department [address] [place] [address] Phone #: ext- [phone] 02/17/2021 07:54 Patient: FABIANO RAMIREZ Sex: F [...] Patient verbalized understanding. Written instructions provided in Nigerian. The patient was discharged by the physician. [...] rce(s) Supporting Document(s) ID Date Data Source [id number] 02/17/2021 07:58:00 AM EDT [facility] 1 Clinical Report - Physicians/Mid Levels [facility] Emergency Department [address] [place] [address] Phone #: ext- [phone] 02/17/2021 07:54 Patient: FABIANO RAMIREZ Sex: F [...] No trauma. She states the ED at [facility] just wraps her toes, she thinks they wrapped it too tight. She wears a air cast and walks with a walker at home.). Patient denies an injury. Similar symptoms previously. Recent medical care: The patient was seen recently in the emergency department. ( Multiple times at [facility] for urinary complaints).REVIEW OF SYSTEMSNo chest [...] inspection. 2 Clinical Report - Physicians/Mid Levels [facility] Emergency Department [address] [place] [address] Phone #: ext- [phone] 02/17/2021 07:54 Patient: [...] UA done over last several months at [facility]. Not currently on antibiotics 3 Clinical Report - Physicians/Mid Levels [facility] Emergency Department [address] [place] [address] Phone #: ext- [phone] 02/17/2021 07:54 Patient: [...] tablet. Refills: 0. Substitution permitted. Pharmacy - [facility] - [address] ; [place] [address]. . 4 Clinical Report - Physicians/Mid Levels [facility] Emergency Department [address] [place] [address] Phone #: ext- [phone] 02/17/2021 07:54 Patient: FABIANO RAMIREZ Sex: F : 1955 Age: 65y Follow-up: Follow up with your healthcare provider. Understanding of the discharge instructions verbalized by patient.(Electronically signed by Serge Echeverria 02/17/2021 11:03) Name Value Range Interpretation Code Description Data Melanie rce(s) Supporting Document(s) ID Date Data Source [id number] 02/20/2021 07:22:00 AM EDT [facility] Name Value Range Interpretation Code Description Data Melanie rce(s) Supporting Document(s) CULTURE URINE [facility] spital _CULTURE URINE_$$[id number]$$[id number]$$458826$$974414$$723135$$323121$$789077$$268972$$108371$$ 117651$$253041$$849642$$434009$$476441$$361150$$993969$$368380$$478647$$859090$$ 458416$$051246$$231673$$737470$$694585$$697092$$275996$$634711 -- Continued on next page --Patient: CANDIDO MARIO Order: [id number] Page 2Culture: CULTURE URINE Status: Final ====$$[id number]$$[id number] DATE/TIME: 02/19/2021 08:06Culture: CULTURE URINE Status: FinalUrine Culture,Comprehensive: M6Hatqt urogenital flora25,000-50,000 colony forming units per mLP1 Test performed [facility]: [facility] KATY #: [id number] [address] [place] [address] [id number] [facility] [id number] Director : Ross Jeffers MD NPI #:Branch Banker : 02/20/[email or web address].[email or web address] REF ID Date Data Source [id number] 02/17/2021 09:31:00 AM EDT [facility] Name Value Range Interpretation Code Description Data Melanie rce(s) Supporting Document(s) UR[facility]ALYSIS [facility] URINALYS[facility] SOURCE R [facility] COLOR yellow NORMAL: Yellow [facility] CLARITY hazy NORMAL: Clear [facility] Specific gravity of Urine by Test strip 1.015 1.001 - 1.030 [facility] pH 8 5 - 9 [facility] Glucose [Mass/volume] in Urine by Test strip NORM NORMAL: Negat gabe [facility] Bilirubin.total [Presence] in Urine by Test strip NEG NORMAL: Negative [facility] Ketones [Presence] in Urine by Test strip NEG NORMAL: Negative [facility] Protein [Mass/volume] in Urine by Test strip NEG NORMAL: Negat [facility] Nitrite [Presence] in Urine by Test strip NEG NORMAL: Negative [facility] BLOOD 25 NORMAL: Negative A [facility] LEUK EST 100 NORMAL: Negative A [facility] Urobilinogen [Mass/volume] in Urine by Test strip NOR less deanna n 1.0 mg/dL [facility] MICROSCOPIC See Below [facility] ital WBC 10 - 15 NORMAL: NONE SEEN A [facility] Erythrocytes [#/volume] in Urine by Test strip 15 - 20 NORMAL: NON E SEEN A [facility] EPITHELIAL MODERATE NORMAL: NONE SEEN A [facility] Bacteria [Presence] in Urine sediment by Light microscopy 1+ SMALL NORMAL: NONE SEEN [facility] Amorphous sediment [Presence] in Urine sediment by Light yong roscopy 2+ NORMAL: NONE SEEN [facility] Crystals [type] in Urine sediment by Light microscopy See Below [facility] TRIPLE PHOS 3+ NORMAL: NONE SEEN A [facility] ID Date Data Source [id number] 12/10/2020 05:37:00 AM EDT [facility] 1 OrderSheet [facility] Emergency Department [address] [place] [address] Phone #: ext- [phone] 12/10/2020 05:37 Patient: FABIANO RAMIREZ Sex: F : 1955 Age: 65yWEIGHT:68.0 kg (S) HEIGHT:59 inches (S) BMI:30.3ALLERGIES: Darvacet, Demerol, MicrodentinCHIEF COMPLAINT: dysuriaDIAGNOSIS: Urinary tract infectious diseaseLAB ORDERSOrder Description Priority Entered Acknowledged InitialedUrinalysis (Clean STAT 05:49 12/10/2020 05:49 Yann,Catch) Roxanne Lerner R.N. RFreyaNFreya; Per protocol; Xavier [...] rce(s) Supporting Document(s) ID Date Data Source [id number] 12/10/2020 05:37:00 AM EDT [facility] 1 Medication Reconciliation Report [facility] Emergency Department [address] [place] [address] Phone #: ext- [phone] 12/10/2020 05:37 Patient: [id number] Sex: F : 1955 Age: 65yWeight: 68.0 [...] Emergency Department: 2 Medication Re conciliation Report [facility] Emergency Department [address] [place] [address] Phone #: ext- [phone] 12/10/2020 05:37 Patient: FABIANO RAMIREZ Sex: F : 1955 Age: 65yMacrobid [PO] PO 100 mg, administered: 07:11 12/10/2020The following Medications were prescribed to the patient:Macrobid 100 mg capsule Take 1 capsule twice a day for 7 days -- Dispense 14 capsule. Refills: 0.Substitution permitted.Pharmacy - [facility] - [address] [place] [address]. . -- Xavier Robertson, Physician Name Value Range Interpretation Code Description Data Melanie rce(s) Supporting Document(s) ID Date Data Source [id number] 12/10/2020 05:37:00 AM EDT [facility] 1 Medication Administration Record [facility] Emergency Department [address] [place] [address] Phone #: ext- [phone] 12/10/2020 05:37 Patient: FABIANO RAMIREZ Sex: F : 1955 Age: 65yWeight: 68.0 kgHeight/Length: 59 inBMI: 30.3ALLERGIES: Darvacet, Demerol, Microdentin Date/Time Medication Administered Medication OrderedGiven MACROBID [PO] (NITROFURANTOIN Macrobid PO 100 mg (NOW)07:11 12/10/2020 MONOHYD MACRO)Roxanne Lerner R.N. Dose: 100 mg PO Name Value Range Interpretation Code Description Data Melanie rce(s) Supporting Document(s) ID Date Data Source [id number] 12/10/2020 05:37:00 AM EDT [facility] 1 General Instructions [facility] Emergency Department [address] [place] [address] Phone #: ext- [phone] 12/10/2020 05:37 Patient: [...] Dispense 14 capsule. Refills: 0.Substitution permitted.Pharmacy - [facility] - [address] ; [place] [address]. .Follow-up:Follow up with your healthcare provider in three days for staple removal. Call for an appointment. Summaryof care provided to patient via paper.Understanding of the discharge instructions verbalized. ADDITIONAL INFORMATIONBladder Infection, Female (Adult) 2 General Instructions [facility] Emergency Department [address] [place] [address] Phone #: ext- [phone] 12/10/2020 05:37 Patient: [...] Urgent need to urinate 3 General Instructions [facility] Emergency Department [address] [place] [address] Phone #: ext- [phone] 12/10/2020 05:37 Patient: [...] a diaphragm for controlTreatment 4 General Instructions [facility] Emergency Department [address] [place] [address] Phone #: ext- [phone] 12/10/2020 05:37 Patient: [...] your healthcare provider.Follow-up care 5 General Instructions [facility] Emergency Department [address] [place] [address] Phone #: ext- [phone] 12/10/2020 05:37 Patient: FABIANO RAMIREZ Sex: F [...] if the results will affect your treatment.Call [phone] if any of the following occur: [...] swelling in the outer vaginal area (labia) 6103-7561 [employer]. [address] [place] [address]. All rights reserved. This information is not intended as asubstitute for professional medical care. Always follow your healthcare professional's instructions. You have been given the following additional information: Bladder Infection, Female (Adult) 6 General Instructions [facility] Emergency Department [address] [place] [address] Phone #: ext- [phone] 12/10/2020 05:37 Patient: [id number] Sex: F : 1955 Age: 65y(Electronically signed by Xavier Robertson, Physician 12/10/2020 07:04) Name Value Range Interpretation Code Description Data Melanie rce(s) Supporting Document(s) ID Date Data Source [id number] 12/10/2020 05:37:00 AM EDT [facility] 1 Clinical Report - Nurses [facility] Emergency Department [address] [place] [address] Phone #: ext- [phone] 12/10/2020 05:37 Patient: [...] LEG PAIN.Alert. No acute distress.This started today.Treatment SERVICES ENGINEER:None.SEPSIS SCREEN: SIRS SCREEN NEGATIVE. SEPSIS SCREEN NEGATIVE. [...] Noam Carney.AllergiesDarvacet.Demerol. 2 Clinical Report - Nurses [facility] Emergency Department [address] [place] [address] Phone #: ext- [phone] 12/10/2020 05:37 Patient: FABIANO RAMIREZ Sex: F [...] membranes are 3 Clinical Report - Nurses [facility] Emergency Department [address] [place] [address] Phone #: ext- [phone] 12/10/2020 05:37 Patient: FABIANO RAMIREZ Sex: F [...] patient. Verbalizes understanding. --07:11 12/10/20 Roxanne Ibrahim RFreyaN. Short leg velcro splint applied to right ankle. Distal pulses intact, sensation intact and motor within normal limits. Patient tolerated the procedure well. Splinting applied by me. --07:12 12/10/20 Roxanne Lerner RClaudia.DISPOSITION / DISCHARGE Condition at departure: stable. No learning barriers present. Discharge instructions provided and reviewed with the patient. Reviewed warnings. Reviewed medication(s). Treatments reviewed. Reviewed referrals. Patient verbalized understanding. Written instructions provided in Nigerian. The patient was discharged home and accompanied [...] rce(s) Supporting Document(s) ID Date Data Source [id number] 12/10/2020 05:37:00 AM EDT [facility] 1 Clinical Report - Physicians/Mid Levels [facility] Emergency Department [address] [place] [address] Phone #: ext- [phone] 12/10/2020 05:37 Patient: [...] surgery. 2 Clinical Report - Physicians/Mid Levels [facility] Emergency Department [address] [place] [address] Phone #: ext- [phone] 12/10/2020 05:37 Patient: [...] process. 3 Clinical Report - Physicians/Mid Levels [facility] Emergency Department [address] [place] [address] Phone #: ext- [phone] 12/10/2020 05:37 [id number] Sex[facility] : 1955 Age: 65y Urinalysis: [...] arise. 4 Clinical Report - Physicians/Mid Levels [facility] Emergency Department [address] [place] [address] Phone #: ext- [phone] 12/10/2020 05:37 Patient: FABIANO RAMIREZ Sex: F : 1955 Age: 65y Prescription Medications: Macrobid 100 mg capsule Take 1 capsule twice a day for 7 days -- Dispense 14 capsule. Refills: 0. Substitution permitted. Pharmacy - [facility] [address] [place] [address]. . Follow-up: Follow up with your healthcare provider in three days for staple removal. Call for an appointment. Summary of care provided to patient via paper. Understanding of the discharge instructions verbalized.(Electronically signed by Xavier Robertson, Physician 12/10/2020 07:04) Name Value Range Interpretation Code Description Data Mealnie rce(s) Supporting Document(s) ID Date Data Source [id number] 12/14/2020 09:42:00 AM EDT [facility] Name Value Range Interpretation Code Description Data Melanie rce(s) Supporting Document(s) CULTURE URINE [facility] spital _CULTURE URINE_$$[id number]$$151092$$575854$$323198$$172785$$888785$$297495$$164149$$226630$$ 380411$$626970$$489907$$463851$$713450$$955715$$820943$$859743$$962644$$609871$$ 915895$$031348$$600131$$161235$$114103$$057924$$778718$$974593 -- Continued on next page --Patient: CANDIDO MARIO Order: Page 2Culture: CULTURE URINE Status: Final ==== -- Continued on next page --Patient: CANDIDO MARIO Order: 2Culture: CULTURE URINE Status: Prelim =====$$[id number]$$[id number] DATE/TIME: 12/14/2020 09:06Culture: CULTURE URINE Status: FinalIsolate [...] on 12/13/2020 05:37 ET Escherichia coliUrine Culture,Comprehensive: X4Ryfjeuvmnra coli Flag: APatient: CANDIDO MARIO Order: [id number] Page 3Culture: CULTURE URINE Status: Final ISOLATE [...] S S . . . . . .37440-3Ztrtvpzxoc S S . . . . . .267-5Imipenem S S . . . . . .279-0Levofloxacin R R . . . . . .15746- 8Meropenem S S . . . . . .6652-2Nitrofurantoin S S . . . . . .363-2Piperacillin/Tazobactam S S . . . . . .412-7Tetracycline S S . . . . . .496-0Tobramycin S S . . . . . .508-2 Trimethoprim/Sulfa S S . . . . . .516-5P1 Test performed by: Rose HURTADO #: [id number] [address] [place] [address] [id number] [facility] [id number] Director : Ross Jeffers MD NPI #:Branch Banker : 12/13/20.1334.XMT.SENT REF 12/14/20.0942.XMT.SENT REF ID Date Data Source [id number] 12/10/2020 06:34:00 AM EDT [facility] Name Value Range Interpretation Code Description Data Melanie rce(s) Supporting Document(s) URINALYSIS [facility] alberto [facility] yellow NORMAL: Yellow [facility]sp[facility] CLARITY cloudy NORMAL: Clear [facility] spital Specific gravity of Urine by Test strip 1.015 1.001 - 1.030 [facility] pH 8 5 - 9 [facility] Glucose [Mass/volume] in Urine by Test strip NORM NORMAL: Negat [facility] Bilirubin.total [Presence] in Urine by Test strip NEG NORMAL: Negative [facility] Ketones [Presence] in Urine by Test strip NEG NORMAL: Negative [facility] Protein [Mass/volume] in Urine by Test strip NEG NORMAL: Negat [facility] Nitrite [Presence] in Urine by Test strip NEG NORMAL: Negative [facility] BLOOD 10 NORMAL: Negative [facility] Leukocyte esterase [Presence] in Urine by Test strip 500 KANE L: Negative [facility] Urobilinogen [Mass/volume] in Urine by Test strip NOR less deanna n 1.0 mg/dL [facility] MICROSCOPIC See Below [facility] ital WBC 20 - 30 NORMAL: NONE SEEN A [facility] Erythrocytes [#/volume] in Urine by Test strip 3 - 5 NORMAL: NON E SEEN [facility] EPITHELIAL MODERATE NORMAL: NONE SEEN A [facility] Bacteria [Presence] in Urine sediment by Light microscopy 2+ MOD NORMAL: NONE SEEN A [facility] Amorphous sediment [Presence] in Urine sediment by Light yong roscopy 2+ NORMAL: NONE SEEN [facility] ID Date Data Source [id number] 12/06/2020 09:09:00 AM EDT [facility] [address] [place] [address] PHONE: [phone] FAX: [phone] Name .................. : CANDIDO MARIO Acct Number.................. : [id number] ROOM. ................. : VT-05 Number ................... : [id number] Stay type ............. : E/R Discharge Date......... ... : 12/01/20 Admit Date ......... : 12/01/20 [facility] Date of ....... : 1955 Family Phys ................... : JENNY NAN Phone .................. : [phone] Age ................................ : 65 Film# .................. .:[id number] Sex ................................. : F Unsigned transcriptions are preliminary reports and do not represent a medical or legal document CT ST NECK W/O CONTRAST 85838 COMPLETE:12/01/20 15:07 RUFUS 92440 Reason(s): evaluate for foreign body as she [...] and further evaluation, Page 1 of 2 [place] [address] PHONE: [phone] FAX: [phone] Name .................. : CANDIDO MARIO Acct Number.................. : [id number] ROOM. ................. : VT-05 Number ................... : [id number] Stay type ............. : E/R Discharge Date......... ... : 12/01/20 Admit Date ......... : 12/01/20 Admit Phys .................... : VIJAYA Date of ....... : Family Phys ................... : JENNY GARCIA Phone .................. : [phone] Age ................................ : 65 Film# .................. .:[id number] Sex ................................. : F Unsigned transcriptions are preliminary reports and do not represent a medical or legal document CT ST NECK W/O CONTRAST 71213 COMPLETE:12/01/20 15:07 RUFUS 50508 Reason(s): evaluate for foreign body as she [...] rce(s) Supporting Document(s) ID Date Data Source [id number] 12/01/2020 12:20:00 PM EDT [facility] 1 OrderSheet [facility] Emergency Department [address] [place] [address] Phone #: ext- [phone] 12/01/2020 12:07 Patient: FAIBANO RAMIREZ Sex: F : 1955 Age: 65yWEIGHT:71.9 kg (M) HEIGHT:59 inches (S) BMI:32.0ALLERGIES: Darvacet, Demerol, MicrodentinCHIEF COMPLAINT: sore throat, FB sensation in throatDIAGNOSIS: DysphagiaLAB ORDERSOrder Description Priority Entered Acknowledged InitialedDIAGNOSTIC STUDY ORDERSOrder Description Priority Entered Acknowledged InitialedCT Neck Soft STAT 13:26 12/01/2020 13:30 BobyTissue W/O Cont Karen Saucedo R.N.(Oxygen?(No)) ; Reason for Study: evaluate for foreign body as she has fb sensation on swallowing after she choked on chicken boneMEDICATION/IV/DRIP/FLUID ORDERSOrder Description Priority Entered Acknowledged InitialedGI Cocktail PO 50 12:34 12/01/2020 12:40 BobymL with Lidocaine Karen Saucedo R.N.Viscous ;Mouth/Throat 10mL, [...] rce(s) Supporting Document(s) ID Date Data Source [id number] 12/01/2020 12:20:00 PM EDT [facility] 1 Medication Reconciliation Report [facility] Emergency Department [address] [place] [address] Phone #: ext- [phone] 12/01/2020 12:07 [id number] Sex: F : 1955 Age: 65yWeight: 71.9 [...] the Emergency Department: 2 Medication Reconciliation Report [facility] Emergency Department [address] [place] [address] Phone #: ext- [phone] 12/01/2020 12:07 Patient: FABIANO RAMIREZ Sex: F : 1955 Age: 65yGI Cocktail [PO] PO 50 mL, administered: 12:40 12/01/2020tivan [IM] IM 1 mg, administered: 14:25 12/01/2020The following Medications were prescribed to the patient:None. Name Value Range Interpretation Code Description Data Melanie rce(s) Supporting Document(s) ID Date Data Source [id number] 12/01/2020 12:20:00 PM EDT [facility] 1 Medication Administration Record [facility] Emergency Department [address] [place] [address] Phone #: ext- [phone] 12/01/2020 12:07 Patient: [...] rce(s) Supporting Document(s) ID Date Data Source [id number] 12/01/2020 12:20:00 PM EDT [facility] 1 General Instructions [facility] Emergency Department [address] [place] [address] Phone #: ext- [phone] 12/01/2020 12:07 Patient: [...] an ear, nose and throat physician (an nurse head)and a eyeletter in three days. Reason for referral: evaluation. Summary of care provided to patientvia paper. ADDITIONAL INFORMATIONDysphagia (Adult) 2 General Instructions [facility] Emergency Department [address] [place] [address] Phone #: ext- [phone] 12/01/2020 12:07 Patient: FABIANO RAMIREZ [facility]#: [id number] Sex: F : 1955 Age: 65y Dysphagia [...] evaluate you using X-ray, 3 General Instructions [facility] Emergency Department [address] [place] [address] Phone #: ext- [phone] 12/01/2020 12:07 Patient: [id number] Sex: F : 1955 Age: 65yspecial esophagus [...] for any of the followin General Instructions [facility] Emergency Department [address] [place] [address] Phone #: [phone] wta- [phone] 12/01/2020 12:07 Patient: FABIANO RAMIREZ Sex: F : 1955 Age: 65y Inability to keep down food or liquid Symptoms that get worse quickly Coughing that won't stop Continuing to lose weight Fever of 100.4F (38C) or higher, or as directed by your healthcare provider Other symptoms as indicated by your healthcare providerCall [address] [place] [address] for any of the following: Trouble breathing Inability to talk Drooling, inability to control secretions Loss of consciousness [id number] [employer]. [address] [place] [address]. All rights reserved. This information is not intended as asubstitute for professional medical care. Always follow your healthcare professional's instructions. You have been given the following additional information: Dysphagia (Adult)(Electronically signed by Karen Saucedo 12/01/2020 19:10) Name Value Range Interpretation Code Description Data Melanie rce(s) Supporting Document(s) ID Date Data Source [id number] 12/01/2020 12:20:00 PM EDT [facility] 1 Clinical Report - Nurses [facility] Emergency Department [address] [place] [address] Phone #: aha- [phone] 12/01/2020 12:07 Patient: FABIANO RAMIREZ Sex: F : 1955 Age: 65yTRIAGEArrived by EMS. Historian: EMS and patient.Acuity: LEVEL 4.Chief Complaint: SORE THROAT.This started yesterday. ( Per EMS, they state pt got a piece of chicken caught in her throat yesterday andwent [facility] to have it extracted which she did but now per EMS, they state pt is still c/o a sore throat).EMS Treatment SERVICES ENGINEER:EMS treatment verbally communicated and report reviewed. See [...] Guzman RN.AllergiesDarvacet. 2 Clinical Report - Nurses [facility] Emergency Department [address] [place] [address] Phone #: ext- [phone] 12/01/2020 12:07 Patient: FABIANO RAMIREZ Sex: F : 1955 Age: 65y Demerol. Microdentin. --12:28 12/01/20 Naresh Guzman RN. History PAST [...] in lowest 3 Clinical Report - Nurses [facility] Emergency Department [address] [place] [address] Phone #: ext- [phone] 12/01/2020 12:07 Patient: FABIANO RAMIREZ Sex: F [...] 12/01/20 Myles Landis R.N. Patient returned from [place] by wheelchair with tech. --14:20 12/01/20 Myles Landis R.N. ( Unable to get comfortable in CT). --14:12/01/20 Myles Landis R.N. 14:25 12/01/2020 Ativan (LORazepam) IM 1 mg given. Given in the left deltoid. Allergies verified and confirmed 5 rights. Information reviewed. Verbalizes understanding. --14:25 12/01/20 Myles Landis R.N. Patient returned from [place] by wheelchair with tech. --15:07 12/01/20 Myles [...] Patient verbalized understanding. Written instructions provided in Nigerian. The patient was discharged by the physician. She was discharged home. She left ambulatory. Account Support Rep driving. --16:49 12/01/20 Myles Landis R.N. 16:48 12/01/20. BP: 142/86. MAP: 104. HR: 74. RR: 18. O2 saturation: 97%. Temp: deferred. Pain level now: 08/30. --16:49 12/01/20 Myles Landis R.N. Departure time: 16:50 12/01/2020. --16:50 12/01/20 Myles Landis R.N.Locked/Released at 12/01/2020 16:50 by Myles Landis R.N. Name Value Range Interpretation Code Description Data Melanie rce(s) Supporting Document(s) ID Date Data Source [id number] 12/01/2020 12:20:00 PM EDT [facility] 1 Clinical Report - Physicians/Mid Levels [facility] Emergency Department [address] [place] [address] Phone #: ext- [phone] 12/01/2020 12:07 Patient: FABIANO RAMIREZ Sex: F : 1955 Age: 65y Time Seen: 12:28 12/01/2020; initial patient contact, initial documentation. Arrived- By ambulance. Historian- patient. Disposition decision: 16:27 12/01/2020.HISTORY OF PRESENT ILLNESS Chief Complaint: SORE THROAT. FOREIGN BODY SENSATION IN THROAT. This started yesterday and is still present (persistent 1 day SERVICES ENGINEER). It was abrupt in onset and has [...] pain on swallowing. she was seen at [facility] where they did an xray [...] Surgeries: 2 Clinical Report - Physicians/Mid Levels [facility] Emergency Department [address] [place] [address] Phone #: ext- [phone] 12/01/2020 12:07 Patient: [...] 3. 3 Clinical Report - Physicians/Mid Levels [facility] Emergency Department [address] [place] [address] Phone #: ext- [phone] 12/01/2020 12:07 Patient: FABIANO RAMIREZ Sex: F : 1955 Age: 65yLABS, X-RAYS, AND EKGCT Neck - Soft Tissue: (Quan aviles Alf - 12/01/2020 4:12:45 PMNo radiopaque foreign body [...] day. 4 Clinical Report - Physicians/Mid Levels [facility] Emergency Department [address] [place] [address] Phone #: ext- [phone] 12/01/2020 12:07 Patient: [id number] Sex: F : 1955 Age: 65y Meclizine [...] an ear, nose and throat physician (an nurse head) and a eyeletter in three days. Reason for referral: evaluation. Summary of care provided to patient via paper.(Electronically signed by Karen Saucedo 12/01/2020 19:10) Name Value Range Interpretation Code Description Data [facility] rce(s) Supporting Document(s) ID Date Data Source [id number] 11/04/2020 09:59:00 PM EDT [facility] Name Value Range Interpretation Code Description Data [facility] Supporting Document(s) Appearance, Urine RFX Laboratory test result [facility] ([facility]) PH,Urine RFX 7.0 units 5.0-9.0 [facility] ([facility]) Color, Urine RFX Laboratory test result [facility] ([facility]) Glucose, Urine (Ua) Auto RFX Laboratory test result [facility] Specific [place] Ur Auto RFX 1.013 1.002-1.035 [facility] ([facility]) Protein, Urine Auto RFX Laboratory test result [facility] ([facility]) Ketone, Urine Auto RFX Laboratory test result [facility] ([facility]) Urobilinogen, Urine Auto RFX 0.2 mg/dL 0.0-2.0 [facility]) Bilirubin, Urine Auto RFX Laboratory test result [facility] Nitrite, Urine Auto RFX Laboratory test result [facility]) Blood, Urine Blood RFX Laboratory test result [facility] ([facility]) Leukocyte Esterase Ur Auto RFX Laboratory test result [facility] ([facility]) RBC, Urine Auto RFX 2 /HPF 0-3 [facility] WBC, Urine Auto RFX 12 /HPF 0-3 [facility]) Squam Epithelial Cell Ur Aurfx 1 /HPF 0-6 [facility] ([facility]) Mucus, Urine RFX Laboratory test result [facility] ([facility]) Bacteria, Urine Auto RFX Laboratory test result [facility] ([facility]) Hyaline Cast, Urine Auto RFX 1 /LPF 0-1 M [facility] ([facility]) ID Date Data Source [id number] 11/04/2020 09:59:00 PM EDT [facility] ([facility]) Name Value Range Interpretation Code Description Data Melanie rce(s) Supporting Document(s) Reflex Urine Culture Laboratory test result [facility] ([facility]) <content>FULL REPORT IN LAB NOTES (eCW [...] 1 S</content>
<content></content> ID Date Data Source [id number] 10/29/2020 11:06:00 AM EDT [facility] ([facility]) Name Value Range Interpretation Code Description Data Melanie rce(s) Supporting Document(s) Reflex Urine Culture Laboratory test result [facility] ([facility]) <content>FULL REPORT IN LAB NOTES (eCW [...] 2 S</content>
<content></content> ID Date Data Source [id number] 10/29/2020 11:06:00 AM EDT [facility] ([facility]) Name Value Range Interpretation Code Description Data Melanie rce(s) Supporting Document(s) Appearance, Urine RFX Laboratory test result [facility] PH,Urine RFX 7.0 units 5.0-9.0 [facility]) Color, Urine RFX Laboratory test result [facility]) Specific [place] Ur Auto RFX 1.012 1.002-1.035 [facility]) Protein, Urine Auto RFX Laboratory test result [facility]) Glucose, Urine (Ua) Auto RFX Laboratory test result [facility]) Urobilinogen, Urine Auto RFX 0.2 mg/dL 0.0-2.0 [facility]) Ketone, Urine Auto RFX Laboratory test result [facility]) Bilirubin, Urine Auto RFX Laboratory test result [facility]) Nitrite, Urine Auto RFX Laboratory test result [facility]) Leukocyte Esterase Ur Auto RFX Laboratory test result [facility]) WBC, Urine Auto RFX 29 /HPF 0-3 [facility] Blood, Urine Blood RFX Laboratory test result [facility]) RBC, Urine Auto RFX 12 /HPF 0-3 [facility] Squam Epithelial Cell Ur Aurfx 1 /HPF 0-6 [facility]) Bacteria, Urine Auto RFX Laboratory test result [facility]) Hyaline Cast, Urine Auto RFX 1 /LPF 0-1 M [facility]) Mucus, Urine RFX Laboratory test result [facility]) Amorphous Sediment RFX Laboratory test result [facility]) ID Date Data Source [id number] 10/29/2020 10:47:00 AM EDT [facility] Name Value Range Interpretation Code Description Data Melanie rce(s) Supporting Document(s) SARS COVID ANTIGEN NEGATIVE [facility] This lab was ordered by [facility] a nd reported by [facility]. ID Date Data Source [id number] 10/29/2020 10:47:00 AM EDT [facility] ([facility]) Name Value Range Interpretation Code Description Data Melanie rce(s) Supporting Document(s) Laboratory test finding (navigational concept) Laboratory test result [facility] ([facility]) The Tory SARS Antigen ALISTAIR does not diff erentiate between SARS-CoV and SARS-CoV-2. Negative results do not rule out COVID-19 and should not be used as the sole basis for treatment. Negative results should be considered in the context of a patient's recent exposure, history and the presence of clinical signs and symptoms consistent with COVID-19. ID Date Data Source [id number] 10/19/2020 08:54:00 AM EDT [facility] [address] [place] [address] PHONE: [phone] FAX: [phone] Name .................. : CANDIDO MARIO Acct Number.................. : [id number] ROOM. ................. : TR-04 MR Number ................... : [id number] Stay type ............. : E/R Discharge Date......... ... : 10/14/20 Admit Date ......... : 10/13/20 Admit Phys .................... : ROXANNESIERRA [place] Date of ....... : 1955 Family Phys ................... : JENNY NAN Phone . ................. : [phone] Age ................................ : 65 Film# .................. .:[id number] Sex ................................. : F Unsigned transcriptions are preliminary reports and do not represent a medical or legal document CHEST PORTABLE [id number] COMPLETE:10/14/20 00:54 SR 7229 Reason(s): cough hemoptysis PORTABLE CHEST X-RAY: [...] By Blane Pfeiffer MD , 10/19/20 08:55, RUST Transcribe Initials: SHANNAN , Transcribe Date: 10/14/20 13:06, Dictation Date: Copy for: [facility] REC DISCHARGED Page 1 of 1 Name Value Range Interpretation Code Description Data Melanie rce(s) Supporting Document(s) ID Date Data Source [id number] 10/16/2020 09:15:00 AM EDT [address] [address] RESPIRATORY CARE REPORT ==== ---------NAME------- NUMBER SEX AGE ADMIT DISC. XRAY# F/C KELSEY MARIO [id number] F 65 10/13/20 10/14/20 [id number] E/R DATE OF : 1955 M/R# [id number] #: [id number] TR-04 LOCATION: EKG 78173 COMPLETE:10/14/20 0 0:29 T 79655 PHYSICIAN: VIJAYA Name Value Range Interpretation Code Description Data Melanie rce(s) Supporting Document(s) ID Date Data Source [id number] 10/13/2020 11:01:00 PM EDT [facility] 1 OrderSheet [facility] Emergency Department [address] [place] [address] Phone #: ext- [phone] 10/13/2020 23:01 Patient: FABIANO RAMIREZ Sex: F [...] 23:47 10/13/2020 00:19 10/14/2020(Urine, Clean [facility] ;Lactic Acid STAT 23:47 [...] Order 23:50 ; Karen Saucedo 2 OrderSheet F F [facility] [address] [place] [address] Phone #: ext- [phone] 10/13/2020 23:01 Patient: [...] InitialedAccucheck 23:47 10/13/2020 23:59 Angelika, 3 OrderSheet [facility] [address] [place] [address] Phone #: ext- [phone] 10/13/2020 23:01 Patient: FABIANO RAMIREZ Sex: F [...] rce(s) Supporting Document(s) ID Date Data Source [id number] 10/13/2020 11:01:00 PM EDT [facility] 1 Medication Reconciliation Report [facility] [address] [place] [address] Phone #: ext- [phone] 10/13/2020 23:01 Patient: [...] Home Medication information:patient 2 Medication Reconciliation Report [facility] [address] [place] [address] Phone #: ext- [phone] 10/13/2020 23:01 Patient: [...] Dispense 14 tablet. Refills: 0.Substitution permitted.Pharmacy - [facility] - [address] [facility] ; [place] [address]. . -- Karen Saucedo Name Value Range Interpretation Code Description Data Melanie rce(s) Supporting Document(s) ID Date Data Source [id number] 10/13/2020 11:01:00 PM EDT [facility] 1 Medication Administration Record [facility] [address] [place] [address] Phone #: ext- [phone] 10/13/2020 23:01 Patient: FABIANO RAMIREZ Sex: F : 1955 Age: 65yWeight: 91.6 kgHeight/Length: 62 inBMI: 37ALLERGIES: Darvacet, Demerol, Microdentin Date/Time Medication Administered Medication OrderedStart ROCEPHIN (1GM/50ML) [IVPB] Rocephin (1gm/50mL) IVPB [id number] 10/14/2020 (CEFTRIAXONE SODIUM) mg with Dextrose 50 ml spike Noam Ramesh, Dose: 1 gm IVPB (D5W)---- Rate: 100 mL/hr over 30 minute(s)Stop Dispensed: 50 mL bag02:58 10/14/2020 Site: #1 left Noam Estrada, Name Value Range Interpretation Code Description Data Melanie rce(s) Supporting Document(s) ID Date Data Source [id number] 10/13/2020 11:01:00 PM EDT [facility] 1 General Instructions [facility] [address] [place] [address] Phone #: ext- [phone] 10/13/2020 23:01 Patient: [...] Dispense 14 tablet. Refills: 0.Substitution permitted.Pharmacy - [facility] #88 - [address] [facility] ; [place] [address]. .Follow-up:Follow up with your healthcare provider Friday if not better. Reason for referral: evaluation. Summary ofcare provided to patient via paper. ADDITIONAL INFORMATION 2 General Instructions [facility] Department [address] [place] [address] Phone #: ext- [phone] 10/13/2020 23:01 Patient: FABIANO RAMIREZ Sex: F [...] prescribed for this condition. 3 General Instructions [facility] [address] [place] [address] Phone #: ext- [phone] 10/13/2020 23:01 Patient: FABIANO RAMIREZ Sex: F [...] loosen secretions in the nose and lungs. Xmzw-jrm-shgffos cold medicines will not shorten the length of time you're sick, but they may be helpful for the following symptoms: cough, sore throat, and nasal and sinus congestion. If you take prescription medicines, ask your healthcare provider or pharmacist which riww-jia-blgfvkc medicines are safe to use. (Note: Don't [...] wheezing, or difficulty breathing 4 General Instructions [facility] [address] [place] [address] Phone #: ext- [phone] 10/13/2020 23:01 Patient: FABIANO RAMIREZ Sex: F : 1955 Age: 65y Coughing up blood Very severe pain with swallowing, especially if it goes along with a muffled voice [phone] [employer]. [address] [place] [address]. All rights reserved. This information is not [...] of cystitis isan infection. 5 General Instructions [facility] Department [address] [place] [address] Phone #: [phone]- [phone] 10/13/2020 23:01 Patient: FABIANO RAMIREZ Sex: F [...] put in Older age 6 General Instructions [facility] Department [address] [place] [address] Phone #: ext- [phone] 10/13/2020 23:01 Patient: FABIANO RAMIREZ Sex: F [...] and vegetables, and fiber. 7 General Instructions [facility] [address] [place] [address] Phone #: ext- [phone] 10/13/2020 23:01 Patient: [...] outer vaginal area (labia) 8 General Instructions [facility] [address] [place] [address] Phone #: ext- [phone] 10/13/2020 23:01 Patient: FABIANO RAMIREZ Sex: F : 1955 Age: 65y [id number] [employer]. [address] [place] [address]. All rights reserved. This information is not intended as asubstitute for professional medical care. Always follow your healthcare professional's instructions. You have been given the following additional information: URI, Viral, No Abx (Adult) Bladder Infection, Female (Adult)(Electronically signed by Karen Saucedo 10/15/2020 07:57) Name Value Range Interpretation Code Description Data Melanie rce(s) Supporting Document(s) ID Date Data Source [id number] 10/13/2020 11:01:00 PM EDT [facility] 1 Clinical Report - Nurses [facility] [address] [place] [address] Phone #: ext- [phone] 10/13/2020 23:01 Patient: FABIANO RAMIREZ Sex: F [...] No acute distress.Onset. (See the triage note).Treatment SERVICES ENGINEER:(she was seen here a few months ago [...] Miguel RN.AllergiesDarvacet. 2 Clinical Report - Nurses [facility] Department [address] [place] [address] Phone #: ext- [phone] 10/13/2020 23:01 Patient: [...] pre- and 3 Clinical Report - Nurses [facility] [address] [place] [address] Phone #: ext- [phone] 10/13/2020 23:01 Patient: FABIANO RAMIREZ Sex: F : 1955 Age: 65y post-medication administration. Information reviewed with patient including reason for taking this medication, signs of allergic reaction and precautions. Verbalizes understanding. --01:56 10/14/20 Noam Carney Patient returned from [place] by wheelchair with mask and audiovisual technician. --02:36 10/14/20 Roxanne Lerner R.N. 02:37 [...] Patient verbalized understanding. Written instructions provided in Nigerian. No treatment instructions. The patient was discharged by the physician. She was discharged home. She left ambulatory and via taxi. 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 --04:24 10/14/20 Noam Carney.Locked/Released at 10/14/2020 04:25 by Noam Carney Name Value Range Interpretation Code Description Data Melanie rce(s) Supporting Document(s) ID Date Data Source [id number] 10/13/2020 11:01:00 PM EDT [facility] 1 Clinical Report - Physicians/Mid Levels [facility] Department [address] [place] [address] Phone #: ext- [phone] 10/13/2020 23:01 Patient: FABIANO RAMIREZ Sex: F [...] surgery. 2 Clinical Report - Physicians/Mid Levels [facility] Department [address] [place] [address] Phone #: ext- [phone] 10/13/2020 23:01 Patient: FABIANO RAMIREZ Sex: F [...] Interpretation 3 Clinical Report - Physicians/Mid Levels [facility] Department [address] [place] [address] Phone #: ext- [phone] 10/13/2020 23:01 Patient: [...] CT CTA CHEST NON-CORONARY W CON [place] [address] [facility] [address] ---------NAME--------- NUMBER SEX AGE ADMIT DISC. XRAY# F/C TYPE CANDIDO MARIO [id number] F 65 10/13/20 [id number] E/R DATE OF : 1955 M/R# [id number] #: [id number] TR-04 LOCATION: TRANSCRIBED: 10/14/20 3:[address] CTA CHEST NON-CORONARY W [id number] COMPLETED:10/14/20 2:52 [facility] [place] Reason(s): hemoptysis -- PHYSICIAN: VIJAYA -- -- R A D I O L O G Y R E P O R T -- PATIENT HISTORY: hemopstysis. isovue 370 75 ml [id number] exp 09/12. estimated dose 394.5. actual dose 395.6 mGy*cm. Time Out performed. Correct patient with 2 identifiers, type and amount of contrast used, correct body part and side all verified prior to examination. / COR SLAB MIP (DICOM Hx) EXAM: CTA Chest with Intravenous Contrast for PE evaluation -- CLINICAL HISTORY:hemopstysis. isovue 370 75 ml [id number] exp 09/12. estimated dose 394.5. actual dose [...] thoracic aorta. 4 Clinical Report - Physicians/Mid [facility] Emergency Department [address] [place] [address] Phone #: ext- [phone] 10/13/2020 23:01 Patient: [...] 7.0) 5 Clinical Report - Physicians/Mid Levels [facility] [address] [place] [address] Phone #: ext- [phone] 10/13/2020 23:01 [id number] Sex: F : 1955 Age: 65y BASO [...] Male GFR Interprentation 20-49 yrs >60 mL/min Sscdan11-40 yrs >56 mL/min Normal 60-69 yrs >49 mL/min Normal 70-79yrs>42 mL/min Normal 80 and above >35 mL/min Normal Female GFRInterpretation 20-39 yrs >60 mL/min Normal 40-49 yrs >58 mL/minNormal 50-59 yrs >51 mL/min Normal 60-69 yrs >45 mL/min Unawfe06-28 yrs >39 mL/min Normal 80 and above >32 mL/min NormalLactic Acid: (OLE: 10/14/2020 00:01) ( [facility] 10/14/[facility]22) Final results Test Result Flag Units (Reference) LACTIC ACID 1.4 MMOL/L (0.2 - 2.2)PT/INR: (OLE: 10/14/2020 00:01) ( [facility] 10/14/2020 00:22) Final results Test Result Flag Units (Reference) PROTIME 15.3 SECONDS (11.0 - 15.5) INR 1.15 (0.93 - 1.23) \\BLDo\\INR INTERPRETATION\\BLDx\\ Therapeutic range for Coumadin andrelated oral a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. - International Normalized Ratio (INR): 2.0 - 3.0 for VenousThrombosis, Pulmonary Embolus, Tissue heart valves, Acute WA, Atrial Fibrillation, Valvular heartdisease and recurrent Systemic Embolism. - International Normalized Ratio (INR): 2.5 - 3.5 6 Clinical Report - Physicians/Mid Levels [facility] Department [address] [place] [address] Phone #: ext- [phone] 10/13/2020 23:01 [id number] Sex: F : 1955 Age: 65yfor Mechanical Prosthetic valve.PT/PTT: (OLE: 10/13/2020 23:47) ( [facility] 10/14/2020 00:06) CanceledTroponin-T: (OLE: 10/14/2020 00:01) ( [facility] 10/14/2020 00:39) Final results Test Result Flag Units (Reference) TROPONIN T <0.01 NG/ML (0.00 - 0.10) TROPONIN T0.1 ng/ml Recommended as the clinical threshold value forTroponin T.Urinalysis: (OLE: 10/13/2020 23:45) ( [facility] 10/14/2020 00:22) Final results Test Result Flag [...] NONEVenous Blood Gas: (OLE: 10/13/2020 23:47) ( [facility] 10/13/2020 23:50) CanceledCRP: (OLE: 10/14/2020 00:01) ( [facility] 10/14/2020 00:40) Final results Test Result Flag Units (Reference) CRP-HS 11.76 H MG/L (1.00 - 3.00) CDC/S HS-CRP CUT-OFF: RELATIVE RISK: <1.0 mg/LLow 1.0 - 3.0 mg/L Average >3.0 mg/LHigh Optimally, the average of HS-CRP results repeated two weeks apart should be used forrisk assessment.ABG: (OLE: 10/13/2020 23:47) ( [facility] 10/14/2020 00:02) CanceledMagnesium: (OLE: 10/14/2020 00:01) ( [facility] 10/14/2020 00:40) Final results Test Result Flag Units (Reference) MAGNESIUM 2.2 MG/DL (1.7 - 2.2)Chest Portable 1 View: (OLE: 10/13/2020 23:47) ( MsgRcvd 10/14/2020 00:54) In ShokanCHEST PORTABLE 7 Clinical Report - Physicians/Mid Levels [facility] Department [address] [place] [address] Phone #: ext- [phone] 10/13/2020 23:01 Patient: [...] Oral. 8 Clinical Report - Physicians/Mid Levels [facility] Department [address] [place] [address] Phone #: [phone]- [phone] 10/13/2020 23:01 Patient: FABIANO RAMIREZ Sex: F [...] tablet. Refills: 0. Substitution permitted. Pharmacy - [facility]46 - [address] [facility] ; [place] [address]. . Follow-up: Follow up with your healthcare provider Friday if not better. Reason for referral: evaluation. Summary of care provided to patient via paper.(Electronically signed by Karen Saucedo 10/15/2020 07:57) Name Value Range Interpretation Code Description Data Melanie rce(s) Supporting Document(s) ID Date Data Source [id number] 10/14/2020 03:51:00 AM EDT [facility] [address] [place] [address] ---------NAME--------- NUMBER SEX AGE ADMIT DISC. XRAY# F/C TYPE CANDIDO MARIO [id number] F 65 10/13/20 [id number] E/R DATE OF : 1955 M/R# [id number] #: [id number] TR-04 LOCATION: TRANSCRIBED: 10/14/20 3:[address] CTA CHEST NON-CORONARY W [id number] COMPLETED:10/14/20 2:52 [facility] [place] Reason(s): hemoptysis PHYSICIAN: VIJAYA R A D I O L O G Y R E P O R T PATIENT HISTORY:hemopstysis. isovue 370 75 ml [id number] exp 09/12. estimated dose 394.5. actualdose 395.6 mGy*cm.Time Out performed. Correct patient with 2 identifiers, type and amount ofcontrast used, correct body part and side all verified prior to examination. /COR SLAB MIP (DICOM Hx)EXAM: CTA Chest with Intravenous Contrast for PE evaluationCLINICAL HISTORY:hemopstysis. isovue 370 75 ml [id number] exp 09/12. estimated [id number]. actual dose 395.6 mGy*cm. Time Out performed. [...] rce(s) Supporting Document(s) ID Date Data Source [id number] 10/21/2020 06:30:00 AM EDT [facility] Name Value Range Interpretation Code Description Data Melanie rce(s) Supporting Document(s) CULTURE BLOOD [facility] _CULTURE BLOOD_ TEST [place] [address] CLIA# [id number] SEE SCANNED REPORT{ PRELIM ID Date Data Source [id number] 10/14/2020 12:35:00 AM EDT [facility] ([facility]) Name Value Range Interpretation Code Description Data Melanie rce(s) Supporting Document(s) Culture Blood Laboratory test result [facility] ([facility]) _CULTURE BLOOD_ TEST [place] [address] CLIA# [id number] SEE SCANNED REPORT { PRELIM ID Date Data Source [id number] 10/19/2020 11:49:00 AM EDT [facility] [address] Name Value Range Interpretation Code Description Data Melanie rce(s) Supporting Document(s) Bacteria identified in Blood by Culture [facility] NO GROWTH AFTER 5 DAYS ID Date Data Source [id number] 10/21/2020 06:29:00 AM EDT [facility] Name Value Range Interpretation Code Description Data Melanie rce(s) Supporting Document(s) [facility] BLOOD [facility] _CULTURE BLOOD_ TEST PERFORM ED AT [address] [address] CLIA# [id number] SEE SCANNED REPORT{ PRELIM ID Date Data Source [id number] 10/14/2020 12:04:00 AM EDT [facility] ([facility]) Name Value Range Interpretation Code Description Data Melanie rce(s) Supporting Document(s) Culture Blood Laboratory test result [facility] ([facility]) _CULTURE BLOOD_ TEST PERFORMED AT [address] [address] [facility]# [id number] SEE SCANNED REPORT { PRELIM ID Date Data Source [id number] 10/14/2020 12:01:00 AM EDT [facility] ([facility]) Name Value Range Interpretation Code Description Data Melanie rce(s) Supporting Document(s) C reactive protein [Mass/volume] in Serum or Plasma by High sensitivity method 11.76 mg/L 1.00-3.00 [facility] <content>CDC/S HS-CRP CUT-OFF: RELATIVE RISK:</content>
<content><1.0 mg/L Low</content>
<content>1.0 - 3.0 mg/L Average</laron nt>
<content>>3.0 mg/L High</content>
<content>Optimally, the average of HS-CRP results repeated</content>
<content>two weeks apart should be used for risk assessment.</content>
<content></content> Magnesium Serum 2.2 mg/dL 1.7-2.2 [facility] ([facility]) Natriuretic peptide.B prohormone N-Terminal [Mass/volu me] in Serum or Plasma 20 pg/mL 0-125 [facility] ([facility] ) Fibrin D-dimer [Presence] in Platelet poor plasma 0.32 ug/mL 0.27-0.5 0 [facility] ([facility]) ID Date Data Source [id number] 10/14/2020 12:01:00 AM EDT [facility] ([facility]) Name Value Range Interpretation Code Description Data Melanie rce(s) Supporting Document(s) Comprehensive [facility] Laboratory test result [facility] ([facility]) COMPREHENSIVE METABOLIC PANEL Sodium 140 meq/L 134-153 [facility] Potassium 3.9 meq/L 3.6-5.0 [facility] Co2 31 meq/L 22-30 [facility] Chloride 102 meq/L 98-107 [facility]) BUN 12 mg/dL 7-21 [facility]) Glucose 94 mg/dL 70-99 [facility] [facility]) Creatinine 0.8 mg/dL 0.7-1.5 [facility] ([facility]) Total Protein 7.0 g/dL 6.3-8.2 [facility] ([facility]) BUN/Creat 15 8-27 [facility] [facility]) Globulin 2.8 GM/DL 2.4-3.2 [facility] [facility]) Albumin 4.2 g/dL 3.9-5.0 [facility] [facility]) A/G Ratio 1.5 0.8-2.0 [facility] [facility]) Calcium 10.1 mg/dL 8.4-10.2 [facility] ([facility]) Total Bili Laboratory test result 0.2-1.3 [facility] ([facility]) Alkaline Phos 62 U/L 38-126 [facility] ([facility]) Sgot/Ast 14 U/L 5-40 [facility] [facility]) SGPT/Alt 13 U/L 7-56 [facility] [facility]) Anion Gap 7.0 mmol/L 8.0-16.0 [facility] ([facility]) Non-Aa GFR Laboratory test result [facility] ([facility]) Age 65 yrs [facility] [facility]) Afr Amer GFR Laboratory test result [facility] ([facility]) Male GFR Interprentation 20-49 yrs >60 [...] >32 mL/min Normal ID Date Data Source [id number] 10/14/2020 12:01:00 AM EDT [facility] ([facility]) Name Value Range Interpretation Code Description Data Melanie rce(s) Supporting Document(s) Troponin T.cardiac [Mass/volume] in Serum or Plasma Laborato ry test result 0.00-0.10 [facility] ([facility]) TROPONIN T 0.1 ng/ml Recommended as the clinical th reshold value for Troponin T. ID Date Data Source [id number] 10/14/2020 12:01:00 AM EDT [facility] ([facility]) Name Value Range Interpretation Code Description Data Melanie rce(s) Supporting Document(s) pCO2 V 56.1 mm/HG 38.0-51.0 [facility] pH V 7.37 7.32-7.43 [facility] [facility]) pO2 V 39.7 mm/HG 30.0-55.0 [facility] Hco3 V 31.5 meq/L 22.0-29.0 [facility] Tco2 V 33.2 meq/L 22.0-29.0 [facility] O2 Sat V 73.4 % 40.0-85.0 [facility] [facility]) Base Excess 4.9 [facility] ([facility]) ID Date Data Source [id number] 10/14/2020 12:01:00 AM EDT [facility] ([facility]) Name Value Range Interpretation Code Description Data Melanie rce(s) Supporting Document(s) Protime 15.3 s 11.0-15.5 [facility] [facility]) Inr 1.15 0.93-1.23 [facility] [facility]) \\BLDo\\INR INTERPRETATION\\BLDx\\ Therapeutic range for Coumadin and related oral a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. -International Normalized Ratio (INR): 2 .0 - 3.0 for Venous Thrombosis, Pulmonary Embolus, Tissue heart valves, Acute WA, Atrial Fibrillation, Valvular heart disease and recurrent Systemic Embolism. -International Normalized Ratio (INR): 2 .5 - 3.5 for Mechanical Prosthetic valve. ID Date Data Source [id number] 10/14/2020 12:01:00 AM EDT [facility] ([facility]) Name Value Range Interpretation Code Description Data Melanie rce(s) Supporting Document(s) Lactate [Mass/volume] in Serum or Plasma 1.4 mmol/L 0.2-2.2 [facility] ([facility]) ID Date Data Source [id number] 10/14/2020 12:01:00 AM EDT [facility] ([facility]) Name Value Range Interpretation Code Description Data Melanie rce(s) Supporting Document(s) CBC W/Automated Diff Laboratory test result [facility] ([facility]) COMPLETE BLOOD COUNT WBC 5.8 10^3/uL 4.2-11.0 [facility] ([facility]) RBC 3.92 10^6/uL 4.20-5.40 [facility] ([facility]) Hematocrit 36.6 % 37.0-47.0 [facility] Hemoglobin 11.9 g/dL 12.0-16.0 [facility] MCV 93.4 fL 81.0-101 [facility] MCH 30.4 pg 27.0-34.0 [facility] RDW 15.5 % 11.5-14.5 [facility] MCHC 32.5 g/dL 31.0-36.0 [facility] Platelets 204 10^3/uL 150-450 [facility] ([facility]) MPV 8.4 fL 7.4-10.4 [facility] Neut 43.7 % 37.0-80.0 [facility] Lymph 45.6 % 25.0-40.0 [facility]) Hutchinson 6.2 % 3.0-8.0 [facility] Baso 0.3 % 0.0-2.5 [facility] Eos 4.0 % 0.0-7.0 [facility] %Ig 0.2 % 0.0-0.0 [facility] %NRBC 0.0 % 0.0-0.0 [facility] #Neut 2.54 10^3/uL 2.00-6.90 [facility] ([facility]) #Lymph 2.65 10^3/uL 0.60-3.40 [facility] ([facility]) #Hutchinson 0.36 10^3/uL 0.00-0.90 [facility] ([facility]) #Eos 0.23 10^3/uL 0.00-0.70 [facility] ([facility]) #Baso 0.02 10^3/uL 0.00-0.20 [facility] ([facility]) #Ig 0.01 10^3/uL 0.00-0.10 [facility] ([facility]) #NRBC 0.00 10^3/uL 0.00-0.00 [facility] ([facility]) Manual Diff Laboratory test result [facility] ([facility]) RBC Morph Laboratory test result [facility] ([facility]) ID Date Data Source [id number] 10/14/2020 02:08:00 AM EDT [facility] Value Range Interpretation Code Description Data Melanie rce(s) Supporting Document(s) BNP 20 PG/ML 0 - 125 [facility] ID Date Data Source [id number] 10/14/2020 12:40:00 AM EDT [facility] Value Range Interpretation Code Description Data Melanie rce(s) Supporting Document(s) Fibrin D-dimer FEU [Mass/volume] in Platelet poor plasma 0.32 ug /mL 0.27 - 0.50 [facility] ID Date Data Source [id number] 10/14/2020 12:39:00 AM EDT [facility] Value Range Interpretation Code Description Data Melanie rce(s) Supporting Document(s) Magnesium [Mass/volume] in Serum or Plasma 2.2 MG/DL 1.7 - 2.2 [facility] ID Date Data Source [id number] 10/14/2020 12:39:00 AM EDT [facility] Name Value Range Interpretation Code Description Data Melanie rce(s) Supporting Document(s) C reactive protein [Mass/volume] in Serum or Plasma by High sensitivity method 11.76 MG/L 1.00 - 3.00 [facility] CDC/S HS-CRP CUT-OFF: RELATIVE RISK: <1.0 mg/L Low 1.0 - 3.0 mg/L Average >3.0 mg/L High Optimally, the average of HS-CRP results repeated two weeks apart should be used for risk assessment. ID Date Data Source [id number] 10/14/2020 12:39:00 AM EDT [facility] Name Value Range Interpretation Code Description Data Melanie rce(s) Supporting Document(s) COMPREHENSIVE METABOLIC PANEL [facility] COMPREHENSIVE METABOLIC PANEL Sodium [Moles/volume] in Serum or Plasma 140 mEq/L 134 - 153 [facility] Potassium [Moles/volume] in Serum or Plasma 3.9 mEq/L 3.6 - 5.0 [facility] Chloride [Moles/volume] in Serum or Plasma 102 mEq/L 98 - 107 [facility] Carbon dioxide, total [Moles/volume] in Serum or Plasma 31 MEQ/L 22 - 30 [facility] Glucose [Mass/volume] in Serum or Plasma 94 MG/DL 70 - 99 [facility] BUN 12 MG[facility]DL 7 - [facility] Creat[facility] [Mass/volume] in Serum or Plasma 0.8 MG/DL 0.7 - 1.5 [facility] BUN/CREAT 15 8 - 27 [facility] Protein [Mass/volume] in Serum or Plasma 7.0 G/DL 6.3 - 8.2 [facility] Albumin [Mass/volume] in Serum or Plasma 4.2 G/DL 3.9 - 5.0 [facility] Globulin [Mass/volume] in Serum by calculation 2.8 GM/DL 2.4 - 3.2 [facility] A/G RATIO 1.5 0.8 - 2.0 [facility] Calcium [Mass/volume] in Serum or Plasma 10.1 MG/DL 8.4 - 10.2 [facility] Bilirubin.total [Mass/volume] in Serum or Plasma <0.7 MG/DL 0.2 - 1.3 [facility] Alkaline phosphatase [Enzymatic activity/volume] in Serum or Plasma 62 U/L 38 - 126 [facility] Aspartate aminotransferase [Enzymatic activity/volume] in Serum or Plasma 14 U/L 5 - 40 [facility] Alanine aminotransferase [Enzymatic activity/volume] in Seru m or Plasma 13 U/L 7 - 56 [facility] Anion gap 3 in Serum or Plasma 7.0 mmol/L 8.0 - 16.0 L [facility] AGE 65 yrs [employer] al NON-AA GFR >60 mL/min [facility] ital AFR AMER GFR >60 [facility] Male GFR In terprentation [...] >32 mL/min Normal ID Date Data Source [id number] 10/14/2020 12:39:00 AM T [facility] Name Value Range Interpretation Code Description Data Melanie rce(s) Supporting Document(s) TROPONIN T <0.01 NG/ML 0.00 - 0.10 [facility] ospital TROPONIN T0.1 ng/ml Recommended as the c linical threshold value forTroponin T. ID Date Data Source [id number] 10/14/2020 12:22:00 AM [facility] Name Value Range Interpretation Code Description Data Melanie rce(s) Supporting Document(s) Prothrombin time (PT) 15.3 SECONDS 11.0 - 15.5 [facility] INR in Platelet poor plasma by Coagulation assay 1.15 0.93 - 1. 23 [facility] \\BLDo\\INR INTERPRETATION\\BLDx\\ Therapeutic range for Coumadin and related oral a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. - International Normalized Ratio (INR): 2.0 - 3.0 for Venous Thrombosis, Pulmonary Embolus, Tissue heart valves, Acute [place], Atrial Fibrillation, Valvular heart disease and recurrent Systemic Embolism. -International Normalized Ratio (INR): 2.5 - 3.5 for Mechanical Prosthetic valve. ID Date Data Source [id number] 10/14/2020 12:22:00 AM EDT [facility] Name Value Range Interpretation Code Description Data Melanie rce(s) Supporting Document(s) Lactate [Moles/volume] in Serum or Plasma 1.4 MMOL/L 0.2 - 2.2 [facility] ID Date Data Source [id number] 10/14/2020 12:22:00 AM EDT [facility] Name Value Range Interpretation Code Description Data Melanie rce(s) Supporting Document(s) pH of Serum or Plasma 7.37 7.32 - 7.43 [facility] pCO2 V 56.1 mm/HG 38.0 - 51.0 H [facility] pO2 V 39.7 mm/HG 30.0 - 55.0 [facility] Bicarbonate [Moles/volume] in Venous blood 31.5 meq/L 22.0 - 29.0 H [facility] TCO2 V 33.2 meq/L 22.0 - 29.0 H [facility] Base excess in Blood by calculation 4.9 -2.0 - 2.0 [facility] O2 SAT V 73.4 % 40.0 - 85.0 [facility] ID Date Data Source [id number] 10/14/2020 12:10:00 AM EDT [facility] Name Value Range Interpretation Code Description Data Melanie rce(s) Supporting Document(s) CBC W/AUTOMATED DIFF [facility] COMPLETE BLOOD COUNT Leukocytes [#/volume] in Blood by Automated count 5.8 10^3/uL 4.2 - 1 1.0 [facility] Erythrocytes [#/volume] in Blood by Automated count 3.92 10^6/uL 4. 20 - 5.40 L [facility] Hemoglobin [Mass/volume] in Blood 11.9 g/dL 12.0 - 16.0 L [facility] Hematocrit [Volume Fraction] of Blood by Automated count 36.6 % 3 7.0 - 47.0 L [facility] Erythrocyte mean corpuscular volume [Entitic volume] by Auto mated count 93.4 fL 81.0 - 101 [facility] Erythrocyte mean corpuscular hemoglobin [Entitic mass] by Automated count 30.4 pg 27.0 - 34.0 [facility] Erythrocyte mean corpuscular hemoglobin concentration [Mass/volume] by Automated count 32.5 g/dL 31.0 - 36.0 [facility] Erythrocyte distribution width [Ratio] by Automated count 15.5 % 11.5 - 14.5 H [facility] Platelets [#/volume] in Blood by Automated count 204 10^3/uL 150 - 45 0 [facility] Platelet mean volume [Entitic volume] in Blood by Automated count 8.4 fL 7.4 - 10.4 [facility] Neutrophils/100 leukocytes in Blood by Automated count 43.7 % 37. 0 - 80.0 [facility] Lymphocytes/100 leukocytes in Blood by Manual count 45.6 % 25.0 - 40.0 H [facility] Monocytes/100 leukocytes in Blood by Automated count 6.2 % 3.0 - 8.0 [facility] Eosinophils/100 leukocytes in Blood by Automated count 4.0 % 0.0 - 7.0 [facility] Basophils/100 leukocytes in Blood by Automated count 0.3 % 0.0 - 2.5 [facility] %IG 0.2 % 0.0 - 0.0 [facility] 0.[facility] % 0.0 - 0.0 [facility] Neutrophils [#/volume] in Blood by Automated count 2.54 10^3/uL 2.00 - 6.90 [facility] Lymphocytes [#/volume] in Blood by Automated count 2.65 10^3/uL 0.60 - 3.40 [facility] Monocytes [#/volume] in Blood by Automated count 0.36 10^3/uL 0.00 - 0.90 [facility] Eosinophils [#/volume] in Blood by Automated count 0.23 10^3/uL 0.00 - 0.70 [facility] Basophils [#/volume] in Blood by Automated count 0.02 10^3/uL 0.00 - 0.20 [facility] #IG 0.01 10^3/uL 0.00 - 0.10 [facility] #NRBC 0.00 10^3/uL 0.00 - 0.00 [facility] MANUAL DIFF NOT INDICATED [facility] RBC MORPH NOT INDICATED [facility] ID Date Data Source [id number] 10/18/2020 02:37:00 PM EDT [facility] Name Value Range Interpretation Code Description Data Melanie rce(s) Supporting Document(s) CULTURE URINE [facility] _CULTURE URINE_$$[id number]$$[id number]$$[id number]$$930759$$955257$$659609$$839060$$840826$$564711$$ 685158$$608325$$794416$$702538$$042724$$533495$$779173$$052417$$345639$$242007$$ 098586$$944475$$504287$$914886$$786022$$883873$$343378$$[id number] -- Continued on next page --Patient: LETTIERE FABIANO Order: Page 2Culture: CULTURE URINE Status: Final ==== -- Continued on next page --Patient: LETTIERE FABIANO Order: Page 2Culture: CULTURE URINE Status: Prelim ===== -- Continued on next page --Patient: CANDIDO MARIO Order: [id number] Page 2Culture: CULTURE URINE Status: Prelim =====$$[id number]$$[id number] DATE/TIME: 10/18/2020 12:06Culture: CULTURE URINE Status: FinalIsolate 1 Enterococcus faecalis Flag: A . . . . . . .7Greater than 100,000 colony forming units per mL Previous result entered on 10/17/2020 14:24 ET Enterococcus faecalisSusceptibility results being verified. Final report to follow. Previous result entered on 10/17/2020 05:41 ET Microbiological testing to rule out the presence of possible pathogensis in progress.Urine Culture,Comprehensive: [id number] faecalis Flag: APatient: CANDIDO MARIO Order: [id number] Page 3Culture: CULTURE URINE Status: Final ISOLATE 1 Enterococcus faecalis Isolate 1Antibiotic YONG IntUnits ug/mL ----Ciprofloxacin R R . . . . . .185-9Levofloxacin R R . . . . . .73623-3Jldrszrpqpbkiq S S . . . . . .363-2Penicillin S S . . . . . .6932-8Tetracycline R R . . . . . .496- 0Vancomycin S S . . . . . .524-9P1 Test performed by: [facility] #: [id number] [address] [place] [address] [id number] [facility] [id number] Director : Ross Jeffers MD NPI #:Branch Banker : 10/17/20.0658.XMT.SENT REF 10/18/20.0700.XMT.SENT REF 10/18/20.1437.XMT.SENT REF ID Date Data Source [id number] 10/13/2020 11:45:00 PM EDT [facility] ([facility]) Name Value Range Interpretation Code Description Data Melanie rce(s) Supporting Document(s) Urinalysis Laboratory test result [facility] ([facility]) SOURCE: Clean Catch Source Laboratory test result [facility] ([facility]) SOURCE: Clean Catch Clarity Laboratory test result [facility] ([facility]) SOURCE: Clean Catch Color Laboratory test result [facility] ([facility]) SOURCE: Clean Catch Spec [place] 1.010 1.001-1.030 [facility] ([facility]) SOURCE: Clean Catch Glucose Laboratory test result [facility] ([facility]) SOURCE: Clean Catch pH 7 5-9 [facility]: Clean Catch Bilirubin Laboratory test result [facility] ([facility]) SOURCE: Clean Catch Ketone Laboratory test result [facility] ([facility]) SOURCE: Clean Catch Protein Laboratory test result [facility] ([facility]) SOURCE: Clean Catch Blood 25 Abnormal (applies to non-numeric res ults) [facility] ([facility]) SOURCE: Clean Catch Nitrite Laboratory test result [facility] ([facility]) SOURCE: Clean Catch Leuk Est 500 Abnormal (applies to non-numeric res ults) [facility] ([facility]) SOURCE: Clean Catch Urobilinogen Laboratory test result [facility] NT ([facility]) SOURCE: Clean Catch Microscopic Laboratory test result [facility] T ([facility]) SOURCE: Clean Catch WBC Laboratory test result Abnormal (applies to non -numeric results) [facility] ([facility]) SOURCE: Clean Catch RBC Laboratory test result [facility] ([facility]) SOURCE: Clean Catch Epithelial Laboratory test result Abnormal (applies to non -numeric results) [facility] ([facility]) SOURCE: Clean Catch Bacteria Laboratory test result Abnormal (applies to non -numeric results) [facility] ([facility]) SOURCE: Clean Catch ID Date Data Source [id number] 10/13/2020 11:45:00 PM EDT [facility] ([facility]) Name Value Range Interpretation Code Description Data Melanie rce(s) Supporting Document(s) Culture Urine Laboratory test result [facility] ([facility]) SOURCE: Clean Catch ID Date Data Source [id number] 10/14/2020 12:22:00 AM EDT [facility] Name Value Range Interpretation Code Description Data Melanie rce(s) Supporting Document(s) [facility] S[facility] R [facility] COLOR yellow NORMAL: Yellow [facility] CLARITY hazy NORMAL: Clear [facility] Specific gravity of Urine by Test strip 1.010 1.001 - 1.030 [facility] pH 7 5 - 9 [facility] Glucose [Mass/volume] in Urine by Test strip NORM NORMAL: Negat [facility] Bilirubin.total [Presence] in Urine by Test strip NEG NORMAL: Negative [facility] Ketones [Presence] in Urine by Test strip NEG NORMAL: Negative [facility] Protein [Mass/volume] in Urine by Test strip NEG NORMAL: Negat [facility] Nitrite [Presence] in Urine by Test strip NEG NORMAL: Negative [facility] BLOOD 25 NORMAL: Negative [facility] Leukocyte esterase [Presence] in Urine by Test strip 500 KANE L: Negative [facility] Urobilinogen [Mass/volume] in Urine by Test strip NOR less deanna n 1.0 mg/dL [facility] MICROSCOPIC See Below [facility] WBC 7 - 10 NORMAL: NONE SEEN A [facility] Erythrocytes [#/volume] in Urine by Test strip 1 - 3 NORMAL: NON E SEEN [facility] EPITHELIAL MODERATE NORMAL: NONE SEEN A [facility] Bacteria [Presence] in Urine sediment by Light microscopy 2+ MOD NORMAL: NONE SEEN A [facility] ID Date Data Source [id number] 09/16/2020 05:22:00 AM EST [facility] ([facility]) Name Value Range Interpretation Code Description Data Melanie rce(s) Supporting Document(s) Bedside Glucose 82 mg/dL 80-115 [facility] ([facility]) ID Date Data Source [id number] 09/16/2020 04:34:00 AM EST [facility] ([facility]) Name Value Range Interpretation Code Description Data Melanie rce(s) Supporting Document(s) Urine Culture Laboratory test result [facility] ([facility]) <content>FULL REPORT IN LAB NOTES (eCW [...] FOR ESBL</content>
<content></content> ID Date Data Source [id number] 09/09/2020 12:43:00 AM EST [facility] ([facility]) Name Value Range Interpretation Code Description Data Melanie rce(s) Supporting Document(s) Laboratory test finding (navigational concept) 39.0 % 38.0-51.0 [facility] ([facility]) Laboratory test finding (navigational concept) 85 mg/dL 70-105 [facility] ([facility]) Laboratory test finding (navigational concept) 4.1 meq/L 3.5-5.1 [facility] ([facility]) Laboratory test finding (navigational concept) 142 meq/L 136-145 [facility] ([facility]) Laboratory test finding (navigational concept) 5.1 mg/dL 4.5-5.3 [facility] ([facility]) Laboratory test finding (navigational concept) 106 meq/L 98-109 [facility] ([facility]) Laboratory test finding (navigational concept) 18 mg/dL 8-26 [facility] ([facility]) Laboratory test finding (navigational concept) 29.0 MM/L 23.0-27.0 [facility] Laboratory test finding (navigational concept) 0.9 mg/dL 0.6-1.3 [facility] ([facility]) ID Date Data Source [id number] 09/09/2020 12:37:00 AM EST [facility] ([facility]) Name Value Range Interpretation Code Description Data Melanie rce(s) Supporting Document(s) Lipoprotein lipase [Enzymatic activity/volume] in Serum or P lasma 141 U/L 73-393 [facility] ([facility]) ID Date Data Source [id number] 09/09/2020 12:37:00 AM EST [facility] ([facility]) Name Value Range Interpretation Code Description Data Melanie rce(s) Supporting Document(s) Ast/Sgot 10 U/L 7-37 [facility] Alt/SGPT 16 U/L 12-78 [facility]) Alkaline Phosphatase 60 U/L 45-117 [facility] ([facility]) Bilirubin,Total 0.2 mg/dL 0.2-1.0 [facility] ([facility]) Bilirubin,Direct Laboratory test result 0.0-0.2 [facility] ([facility]) Total Protein 7.2 GM/DL 6.4-8.2 [facility] ([facility]) Albumin 3.2 GM/DL 3.2-5.2 [facility] Albumin/Globulin Ratio 0.8 1.2-2.2 [facility] ([facility]) ID Date Data Source [id number] 09/09/2020 12:37:00 AM EST [facility] ([facility]) Name Value Range Interpretation Code Description Data Melanie rce(s) Supporting Document(s) White Blood Count 5.2 10 4.0-10.0 [facility] ([facility]) Hemoglobin 11.7 g/dL 12.0-15.5 [facility] Red Blood Count 4.06 10 4.00-5.40 [facility] ([facility]) Hematocrit 38.6 % 36.0-47.0 [facility] [facility]) Mean Corpuscular Volume 95.1 fl 80.0-96.0 [facility] ([facility]) Mean Corpuscular Hemoglobin 28.8 pg 27.0-33.0 [place] [facility] ([facility]) Mean Corpuscular HGB Conc 30.3 g/dL 32.0-36.5 [facility] ([facility]) Platelet Count, Automated 180 10 150-450 [facility] ([facility]) Red Cell Distribution Width 14.7 % 11.5-14.5 [facility] ([facility]) Neutrophils % 50.9 % 36.0-66.0 [facility] ([facility]) Lymph % 37.5 % 24.0-44.0 [facility] [facility]) [place] % 7.9 % 2.0-8.0 [facility] [facility] Eos % 3.3 % 0.0-3.0 [facility] Baso % 0.2 % 0.0-1.0 [facility] Immature Granulocyte % 0.2 % 0-3.0 [facility] ([facility]) Nucleated Red Blood Cell % 0.0 % 0-0 [facility] ([facility]) Neutrophils # 2.6 10 1.5-8.5 [facility] ([facility]) Lymph # 1.9 10 1.5-5.0 [facility] [place] # 0.4 10 0.0-0.8 [facility] Eos # 0.2 10 0.0-0.5 [facility] Baso # 0.0 10 0.0-0.2 [facility] ID Date Data Source [id number] 08/12/2020 08:01:00 AM EST [facility] ([facility]) Name Value Range Interpretation Code Description Data Melanie rce(s) Supporting Document(s) Reflex Urine Culture Laboratory test result [facility] ([facility]) <content>FULL REPORT IN LAB NOTES (eCW [...] FOR ESBL</content>
<content></content> ID Date Data Source [id number] 08/12/2020 08:01:00 AM EST [facility] ([facility]) Name Value Range Interpretation Code Description Data Melanie rce(s) Supporting Document(s) Color, Urine RFX Laboratory test result [facility] ([facility]) Appearance, Urine RFX Laboratory test result [facility] ([facility]) PH,Urine RFX 7.0 units 5.0-9.0 [facility] ([facility]) Specific [place] Ur Auto RFX 1.008 1.002-1.035 [facility] ([facility]) Protein, Urine Auto RFX Laboratory test result [facility] Ketone, Urine Auto RFX Laboratory test result [facility] ([facility]) Glucose, Urine (Ua) Auto RFX Laboratory test result [facility] ([facility]) Bilirubin, Urine Auto RFX Laboratory test result [facility] ([facility]) Urobilinogen, Urine Auto RFX 0.2 mg/dL 0.0-2.0 [facility] ([facility]) Nitrite, Urine Auto RFX Laboratory test result [facility] ([facility]) Blood, Urine Blood RFX Laboratory test result [facility] ([facility]) Leukocyte Esterase Ur Auto RFX Laboratory test result [facility] ([facility]) WBC, Urine Auto RFX 9 /HPF 0-3 [facility] Bacteria, Urine Auto RFX Laboratory test result [facility] ([facility]) RBC, Urine Auto RFX 9 /HPF 0-3 [facility] ([facility]) Squam Epithelial Cell Ur Aurfx 5 /HPF 0-6 [facility] ([facility]) Hyaline Cast, Urine Auto RFX 0 /LPF 0-1 M [facility] ([facility]) Mucus, Urine RFX Laboratory test result [facility] ([facility]) Amorphous Sediment RFX Laboratory test result [facility] ([facility]) ID Date Data Source [id number] 08/12/2020 07:52:00 AM EST [facility] ([facility]) Name Value Range Interpretation Code Description Data Melanie rce(s) Supporting Document(s) Gats Culture (Neg Strep SCR) Laboratory test result [facility] ([facility]) FULL REPORT IN LAB NOTES ([facility]CW and [facility] ). NEGATIVE FOR STREP PYOGENES (GROUP A) ID Date Data Source [id number] 08/12/2020 06:51:00 AM EST [facility] ([facility]) Name Value Range Interpretation Code Description Data Melanie rce(s) Supporting Document(s) Influenza A Amplification Laboratory test result [facility] ([facility]) Negative results do not preclude influen za or RSV virus infection and should not be used as the sole basis for treatment or other patient management decisions. RSV Amplification Laboratory test result [facility] ([facility]) Negative results do not preclude influen za or RSV virus infection and should not be used as the sole basis for treatment or other patient management decisions. Influenza B Amplification Laboratory test result [facility] ([facility]) Negative results do not preclude influen za or RSV virus infection and should not be used as the sole basis for treatment or other patient management decisions. Laboratory test finding (navigational concept) Laboratory test result [facility] ([facility]) A false negative result may occur [...] pathogens. DISCLAIMER: Testing was performed using the [employer] SARS-CoV-2 test. This test was developed and its performance characteristics determined by [employer]. This test has not been FDA cleared [...] or revoked sooner. ID Date Data Source [id number] 08/12/2020 06:51:00 AM EST [facility] Name Value Range Interpretation Code Description Data Melanie rce(s) Supporting Document(s) SARS coronavirus 2 RNA [Presence] in Res piratory specimen by MILAGROS with probe detection NEGATIVE [facility] This lab was ordered by [facility] a nd reported by [facility]. ID Date Data Source [id number] 07/22/2020 04:54:00 AM EST [facility] ([facility]) Name Value Range Interpretation [...] 1 S</content>
<content></content> ID Date Data Source [id number] 07/22/2020 04:54:00 AM [facility] Name Value Range Interpretation Code Description Data Melanie rce(s) Supporting Document(s) Color, Urine RFX Laboratory test result [facility] Appearance, Urine RFX Laboratory test result [facility] PH,Urine RFX 7.0 units 5.0-9.0 [facility] Specific [place] Ur Auto RFX 1.005 1.002-1.035 [facility] Protein, Urine Auto RFX Laboratory test result [facility] Glucose, Urine (Ua) Auto RFX Laboratory test result [facility] Urobilinogen, Urine Auto RFX 0.2 mg/dL 0.0-2.0 [facility] Ketone, Urine Auto RFX Laboratory test result [facility] Nitrite, Urine Auto RFX Laboratory test result [facility] Bilirubin, Urine Auto RFX Laboratory test result [facility] Leukocyte Esterase Ur Auto RFX Laboratory test result [facility] ([facility]) Blood, Urine Blood RFX Laboratory test result [facility] ([facility]) WBC, Urine Auto RFX 11 /HPF 0-3 [facility] ([facility]) RBC, Urine Auto RFX 1 /HPF 0-3 [facility] ([facility]) Squam Epithelial Cell Ur Aurfx 0 /HPF 0-6 [facility] ([facility]) Bacteria, Urine Auto RFX Laboratory test result [facility] ([facility]) Hyaline Cast, Urine Auto RFX 0 /LPF 0-1 M [facility] ([facility]) Mucus, Urine RFX Laboratory test result [facility] ([facility]) ID Date Data Source [id number] 07/01/2020 06:35:00 AM EST [facility] 1 OrderSheet [facility] Emergency Department [address] [place] [address] Phone #: ext- [phone] 07/01/2020 06:35 Patient: [...] rce(s) Supporting Document(s) ID Date Data Source [id number] 07/01/2020 06:35:00 AM EST [facility] 1 Medication Reconciliation Report [facility] Emergency Department [address] [place] [address] Phone #: ext- [phone] 07/01/2020 06:35 Patient: [...] the Emergency Department: 2 Medication Reconciliation Report [facility] Emergency Department [address] [place] [address] Phone #: ext [phone] 07/01/2020 06:35 Patient: FABIANO RAMIREZ Sex: F : 1955 Age: 64yNone.The following Medications were prescribed to the patient:ciprofloxacin 250 mg tablet Take 1 tablet twice a day for 7 days -- Dispense 14 tablet. Refills: 0.Substitution permitted.Pharmacy - [id number] - [id number] ; [place] [address]. . -- Xavier Robertson Physician Name Value Range Interpretation Code Description Data [facility](s) Supporting Document(s) ID Date Data Source [id number] 07/01/2020 06:35:00 AM [place] [address] Medication Administration Record [facility] Emergency Department [address] [place] [address] Phone #: ext- [phone] 07/01/2020 06:35 Patient: FABIANO RAMIREZ Sex: F : 1955 Age: 64yWeight: 76.2 kgHeight/Length: 59 inBMI: 34ALLERGIES: Darvacet, Demerol, MicrodentinDate/Time Medication Administered Medication Ordered Name Value Range Interpretation Code Description Data [facility] Supporting Document(s) ID Date Data Source [id number] 07/01/2020 06:35:00 AM [facility] 1 General Instructions [facility] Emergency Department [address] [place] [address] Phone #: ext- [phone] 07/01/2020 06:35 Patient: [...] Dispense 14 tablet. Refills: 0.Substitution permitted.Pharmacy - [facility] - [address] ; [place] [address]. .Follow-up:Follow up with your healthcare provider in four days. Call for an appointment.Understanding of the discharge instructions v erbalized by patient. ADDITIONAL INFORMATION 2 General Instructions [facility] Emergency Department [address] [place] [address] Phone #: ext- [phone] 07/01/2020 06:35 Patient: [...] or burning when urinating 3 General Instructions [facility] Emergency Department [address] [place] [address] Phone #: ext- [phone] 07/01/2020 06:35 Patient: [...] Fluid loss (dehydration) Constipation Having sex 4 [facility] Emergency Department [address] [place] [address] Phone #: ext- [phone] 07/01/2020 06:35 Patient: [...] flush out your bladder. 5 General Instructions [facility] Emergency Department [address] [place] [address] Phone #: kyn- [phone] 07/01/2020 06:35 Patient: FABIANO RAMIREZ Sex: F [...] if the results will affect your treatment.Call [phone] if any of the following occur: Trouble [...] in the outer vaginal area (labia) [employer]. [address] [place] [address], [place] [address]. All rights reserved. This information is not intended as asubstitute for professional medical care. Always follow your healthcare professional's instructions. You have been given the following additional information: Bladder Infection, Female (Adult) 6 General Instructions [facility] Emergency Department [address] [place] [address] Phone #: ext- [phone] 07/01/2020 06:35 Patient: FABIANO RAMIREZ Sex: F : 1955 Age: 64y(Electronically signed by Xavier Robertson, Physician 07/01/2020 08:41) Name Value Range Interpretation Code Description Data Melanie rce(s) Supporting Document(s) ID Date Data Source [id number] 07/01/2020 06:35:00 AM EST [facility] 1 Clinical Report - Nurses [facility] Emergency Department [address] [place] [address] Phone #: ext- [phone] 07/01/2020 06:35 Patient: FABIANO RAMIREZ Sex: F : 1955 Age: 64yTRIAGEArrived by EMS. Historian: patient.Triage time: 06:35 07/01/2020. Acuity: LEVEL 4.Chief Complaint: PAINFUL URINATION.Onset. (2 days). 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 No [...] Clements R.N.PROBLEMS: 2 Clinical Report - Nurses [facility] Emergency Department [address] [place] [address] Phone #: ext- [phone] 07/01/2020 06:35 Patient: [...] 07/01/20 Xavier Robertson, Physician.PHYSICAL ASSESSMENTTo room via Cluttere r.GENERAL / NEURO / PSYCH: Alert. Oriented X 4. Appears anxious.HEENT: Mucous membranes are pink.RESPIRATORY: Respirations not labored.[facility]: Capillary refill less than 2 seconds.GI / : No emesis noted. Pain with urination. She has had frequency of urination. Urgency ofurination. Patient is incontinent of urine. 3 Clinical Report - Nurses [facility] Emergency Department [address] [place] [address] Phone #: ext- [phone] 07/01/2020 06:35 [id number] Sex: F : 1955 Age: 64y SKIN: [...] rce(s) Supporting Document(s) ID Date Data Source [id number] 07/01/2020 06:35:00 AM [facility] 1 Clinical Report - Physicians/[facility] Emergency Department [address] [place] [address] Phone #: ext- [phone] 07/01/2020 06:35 Patient: [...] Appendectomy. 2 Clinical Report - Physicians/Mid Levels [facility] Emergency Department [address] [place] [address] Phone #: ext- [phone] 07/01/2020 06:35 [id number] Sex: F : 1955 Age: 64y Hernia [...] turgor. 3 Clinical Report - Physicians/Mid Levels [facility] Emergency Department [address] [place] [address] Phone #: ext- [phone] 07/01/2020 06:35 Patient: [...] pain.INSTRUCTIONS 4 Clinical Report - Physicians/Mid Levels [facility] Emergency Department [address] [place] [address] Phone #: ext- [phone] 07/01/2020 06:35 Patient: [...] tablet. Refills: 0. Substitution permitted. Pharmacy - [id number] - [address] [place] [address]. . Follow-up: Follow up with your healthcare provider in four days. Call for an appointment. Understanding of the discharge instructions verbalized by patient.(Electronically signed by Xavier Robertson, Physician 07/01/2020 08:41) Name Value Range Interpretation Code Description Data Melanie rce(s) Supporting Document(s) ID Date Data Source [id number] 07/01/2020 06:50:00 AM EST [facility] ([facility]) Name Value Range Interpretation Code Description Data Melanie rce(s) Supporting Document(s) Culture Urine Laboratory test result [facility] ([facility]) <content>_CULTURE URINE_</content>
<content>^$552247</content>
<content>^^290778</content>
<content>$$422685</content>
<content>^^662294</content>
<content>$$ 184058</content>
<content>$$910580</content>
<content>$$901023</content>
<content>$$ 254009</content>
<content>$$170444</content>
<content>$$686095</content>
<content> $$971271</content>
<content>$$846204</content>
<content>$$834036</conten t>
<content>$$557459</content>
<content>$$030190</content>
<content> $$169254</content>
<content>$$102546</content>
<content>$$481122</content>
<content>$$65155 0</content>
<content>$$071691</content>
<content>$$169394</content>
<content>$$931369</content>
<content>$$995505</content>
<content>$$023427</content>
<content>$$ 637783</content>
<content>$$867247</content>
<content>$$587727</content>
<content> ^^450056</content>
<content>$$320126</content>
<content>$$730596</conten t>
<content>$$813723</content>
<content></content>
<content>-- Continued on next page --</content>
<content>Patient: CANDIDO MARIO Order: [id number] Page 2</content>
<content>Culture: CULTURE URINE Status: Final</laron nt>
<content> < /content>
<content></content>
<content></content>
<content>-- Continued on next page --</content>
<content>Patient: CANDIDO MARIO Order: [id number] Page 2</content>
<content>Culture: CULTURE URINE Status: Prelim</content>
<content> < /content>
<content></content>
<content></content>
<content>-- Continued on next page --</content>
<content>Patient: CANDIDO FABIANO Order: [id number] Page 2</content>
<content>Culture: CULTURE URINE Status: Prelim</content>
<content> < /content>
<content></content>
<content>$$962365</content>
<content>$ $588574</content>
<content></content>
<content>REPORTED DATE/TIME: 07/05/2020 11:06</content>
<content>Culture: CULTURE [...]
<content></content>
<content></content>
<content> Patient: CANDIDO MARIO Order: [id number] Page 3</content>
<content>Culture: CULTURE URINE Status: Final</content>
[...] S S . . . . . .97692-0</content>
<content>Gentamicin S S . . . . . .267-5</content>
<content>Imipenem S S . . . . . .279-0</content>
<content>Levofloxacin S S . . . . . .95446-1</content>
<content>Meropenem S S . . . . . .6652-2</content>
<content>Nitrofurantoin S S . . . . . .363-2</content>
<content>Piperacillin/Tazobactam S S . . . . . .412-7</content>
<content>Tetracycline S S . . . . . .496-0</content>
<content>Tobramycin S S . . . . . .508-2</content>
<content>Trimethoprim/Sulfa S S . . . . . .516-5</content>
<content></content>
<content>P1 Test performed by: [facility] Janel HURTADO #: [id number]</content>
<content>[address]</content>
<content>[id number]</content>
<content>Janel [place] [id number]</content>
<content>Emergency Department Director : Ross Jeffers MD NPI #:</content>
<content>Branch Banker :</content>
<content>07/03/20.1551.XMT.SENT REF</content>
<content>07/04/20.1209.XMT.SENT REF</content>
<content>07/05/20.1201.XMT.SENT REF</content>
<content></content>
<content></content> ID Date Data Source [id number] 07/01/2020 06:50:00 AM EST [facility] ([facility]) Name Value Range Interpretation Code Description Data Melanie rce(s) Supporting Document(s) Urinalysis [facility]IS Source [facility] SOURCE: Clean Catch Color Laboratory test result [facility] ([facility]) SOURCE: Clean Catch Clarity Laboratory test result [facility] ([facility]) SOURCE: Clean Catch Spec [place] 1.010 1.001-1.030 [facility] SOURCE: Clean Catch pH 7 5-9 [facility] S[facility]: Clean Catch Glucose Laboratory test result [facility] ([facility]) SOURCE: Clean Catch Bilirubin Laboratory test result [facility] ([facility]) SOURCE: Clean Catch Ketone Laboratory test result [facility] ([facility]) SOURCE: Clean Catch Protein Laboratory [facility] SOURCE: Clean Catch Nitrite Laboratory [facility] result [facility] SOURCE: Clean Catch Blood 150 Abnormal (applies to non-numeric res ults) [facility] ([facility]) SOURCE: Clean Catch Leuk Est 500 Abnormal (applies to non-numeric res ults) [facility] ([facility]) SOURCE: Clean Catch Urobilinogen Laboratory test result [facility] NT ([facility]) SOURCE: Clean Catch Microscopic Laboratory test result [facility] SOURCE: Clean Catch WBC Laboratory test result Abnormal (applies to non -numeric results) [facility] ([facility]) SOURCE: Clean Catch RBC Laboratory test result Abnormal (applies to non -numeric results) [facility] ([facility]) SOURCE: Clean Catch Epithelial Laboratory test result Abnormal (applies to non -numeric results) [facility] ([facility]) SOURCE: Clean Catch Bacteria Laboratory test result Abnormal (applies to non -numeric results) [facility] ([facility]) SOURCE: Clean Catch ID Date Data Source [id number] 07/05/2020 12:01:00 PM EST [facility] Name Value Range Interpretation Code Description Data Melanie rce(s) Supporting Document(s) CULTURE URINE [facility] _CULTURE URINE_$$[id number]$$399164$$480574$$975788$$230039$$235904$$478296$$510083$$474126$$ 585044$$305936$$043792$$487984$$734461$$774724$$322352$$467955$$759438$$668093$$ 449841$$274436$$810942$$922260$$201194$$202787$$976875$$224590 -- Continued on next page --Patient: LETTIERE FABIANO Order: [id number] Page 2Culture: CULTURE URINE Status: Final ==== -- Continued on next page --Patient: LETTIERE FABIANO Order: [id number] Page 2Culture: CULTURE URINE Status: Prelim ===== -- Continued on next page --Patient: LETTIERE FABIANO Order: [id number] Page 2Culture: CULTURE URINE Status: Prelim =====$$[id number]$$[id number] DATE/TIME: 07/05/2020 11:06Culture: CULTURE URINE Status: FinalIsolate [...] presence of possible pathogensis in progress.Urine Culture,Comprehensive: [id number] coli Flag: APatient: CANDIDO MARIO Order: [id number] Page 3Culture: CULTURE URINE Status: Final ====ISOLATE [...] S S . . . . . .60828-5Fbnozwehdn S S . . . . . .267-5Imipenem S S . . . . . .279- 0Levofloxacin S S . . . . . .15741-2Bejxiyprp S S . . . . . .6652-2Nitrofurantoin S S . . . . . .363-2Piperacillin/Tazobactam S S . . . . . .412-7Tetracycline S S . . . . . .496-0Tobramycin S S . . . . . .508-2Trimethoprim/Sulfa S S . . . . . .516-5P1 Test performed by: [facility] #: [id number] [address] [id number] [facility] [id number] Director : Ross Jeffers MD NPI #:Branch Banker : 07/03/20.1551.XMT.SENT REF 07/04/20.1209.XMT.SENT REF 07/05/20.1201.XMT.SENT REF ID Date Data Source [id number] 07/01/2020 07:08:00 AM EST [facility] Name Value Range Interpretation Code Description Data Melanie rce(s) Supporting Document(s) [facility] COL[facility] yellow NORMAL: Yellow [facility] CLARITY clear NORMAL: Clear [facility] Specific gravity of Urine by Test strip 1.010 1.001 - 1.030 [facility] pH 7 5 - 9 [facility] Glucose [Mass/volume] in Urine by Test strip NORM NORMAL: Negat [facility] Bilirubin.total [Presence] in Urine by Test strip NEG NORMAL: Negative [facility] Ketones [Presence] in Urine by Test strip NEG NORMAL: Negative [facility] Protein [Mass/volume] in Urine by Test strip NEG NORMAL: Negat [facility] Nitrite [Presence] in Urine by Test strip POS NORMAL: Negative [facility] BLOOD 150 NORMAL: Negative [facility] Leukocyte esterase [Presence] in Urine by Test strip 500 KANE L: Negative [facility] Urobilinogen [Mass/volume] in Urine by Test strip NOR less deanna n 1.0 mg/dL [facility] MICROSCOPIC See Below [facility] WBC 5 - 7 NORMAL: NONE SEEN A [facility] Erythrocytes [#/volume] in Urine by Test strip 7 - 10 NORMAL: NON E SEEN A [facility] EPITHELIAL MODERATE NORMAL: NONE SEEN A [facility] Bacteria [Presence] in Urine sediment by Light microscopy 3+ LARGE NORMAL: NONE SEEN A [facility] ID Date Data Source [id number] 06/08/2020 02:10:00 PM EST [facility] ([facility]) Name Value Range Interpretation Code Description Data Melanie rce(s) Supporting Document(s) Erythrocytes [#/volume] in Blood by Automated count 4.16 x10*6/UL 4.2 0-6.30 [facility] ([facility]) Leukocytes [#/volume] in Blood by Automated count 5.4 x10*3/UL 4.1-10 .9 [facility] ([facility]) Hemoglobin [Mass/volume] in Blood 12.5 g/dL 12.0-18.0 [facility] ([facility]) Hematocrit [Volume Fraction] of Blood by Automated count 37.8 % 3 7.0-51.0 [facility] ([facility]) MCHC 33.0 g/dL 31.0-38.0 [facility] MCH 30.1 pg 26.0-32.0 [facility] MCV 91.0 fL 80.0-97.0 [facility] Platelets [#/volume] in Blood by Automated count 219 x10*3/UL 140-440 [facility] ([facility]) Erythrocyte distribution width [Ratio] by Automated count 14.4 % 11.6-13.7 [facility] ([facility]) MPV 6.9 FL 7.8-11.0 [facility] Lymph % 27.9 % 10.0-58.5 [facility] Neut % 65.6 % 37.0-92.0 [facility] Mid % 6.5 % 1.7-9.3 [facility] Neut # 3.5 x10*3/UL 2.0-7.8 [facility] ([facility]) Lymph # 1.5 x10*3/UL 0.6-4.1 [facility] ([facility]) Mid # 0.4 x10*3/UL 0.1-0.6 [facility] ([facility]) ID Date Data Source [id number] 05/04/2020 01:59:00 PM EDT [facility] ([facility]) Name Value Range Interpretation Code Description Data Melanie rce(s) Supporting Document(s) Triglyceride [Mass/volume] in Serum or Plasma 186 mg/dL 30-150 [facility] ([facility]) Cholesterol [Mass/volume] in Serum or Plasma 180 mg/dL 131-200 [facility] ([facility]) Cholesterol in HDL [Mass/volume] in Serum or Plasma 55 mg/dL 35-60 [facility] ([facility]) Cholesterol in LDL [Mass/volume] in Serum or Plasma by calcu lation 88 CALC 50-159 [facility] ([facility]) ID Date Data Source [id number] 05/04/2020 01:59:00 PM EDT [facility] ([facility]) Name Value Range Interpretation Code Description Data Melanie rce(s) Supporting Document(s) Glucose [Mass/volume] in Serum or Plasma 86 mg/dL 74-99 [facility] ([facility]) 100-125 mg/dL PRE-DIABETES/FASTING >126 mg/dL DIABETES/FASTING Urea nitrogen [Mass/volume] in Serum or Plasma 14 mg/dL 7-18 [facility] ([facility]) Creatinine 1.0 mg/dL 0.6-1.3 [facility] Sodium [Moles/volume] in Serum or Plasma 144 meq/L 136-145 [facility] ([facility]) Chloride [Moles/volume] in Serum or Plasma 105 meq/L 98-107 [facility] ([facility]) Potassium [Moles/volume] in Serum or Plasma 4.0 meq/L 3.5-5.1 [facility] ([facility]) Calcium [Mass/volume] in Serum or Plasma 9.9 mg/dL 8.5-10.1 [facility] ([facility]) Carbon dioxide, total [Moles/volume] in Serum or Plasma 36 meq/L 21 -32 [facility] ([facility]) Total Bilirubin 0.2 mg/dL 0.2-1.0 [facility] ([facility]) Alkaline phosphatase isoenzyme [Units/volume] in Serum or Pl asma 55 mg/dL 46-116 [facility] ([facility]) Aspartate aminotransferase [Enzymatic activity/volume] in Serum or Plasma 23 U/L 15-37 [facility] ([facility] ) Alanine aminotransferase [Enzymatic activity/volume] in Seru m or Plasma 26 U/L 12-78 [facility] ([facility]) Albumin [Mass/volume] in Serum or Plasma 3.7 g/dL 3.4-5.0 [facility] ([facility]) Proteinase 3 Ab [Units/volume] in Serum 7.7 g/dL 6.4-8.2 [facility] ([facility]) Glomerular filtration rate/1.73 sq M pre dicted among blacks [Volume Rate/Area] in Serum or Plasma by Creatinine-based formula (MDRD) Laboratory test result [facility] ([facility]) <content>CHRONIC KIDNEY DISEASE STAGING PER NKF</content>
<content></content>
<content>STAGE I & II GFR >= 60 NORMAL TO MILDLY DECREASED</content>
<content>STAGE III GFR 30-59 MODERATELY DECREASED</content>
<content>STAGE IV GFR 15-29 SEVERELY DECREASED</content>
<content>STAGE V GFR <15 VERY LITTLE GFR LEFT</content>
<content>ESRD GFR <15 ON STORM CHASER</content>
<content></content> A/G Ratio 0.93 CALC 1.00-1.90 [facility] Glomerular filtration rate/1.73 sq M pre dicted among non-blacks [Volume Rate/Area] in Serum or Plasma by Creatinine-based formula (MDRD) 56 mL/min [facility] ([facility]) ID Date Data Source [id number] 05/04/2020 01:59:00 PM EDT [facility] ([facility]) Name Value Range Interpretation Code Description Data Melanie rce(s) Supporting Document(s) Leukocytes [#/volume] in Blood by Automated count 5.8 x10*3/UL 4.1-10 .9 [facility] ([facility]) Hemoglobin [Mass/volume] in Blood 12.1 g/dL 12.0-18.0 [facility] ([facility]) Erythrocytes [#/volume] in Blood by Automated count 4.06 x10*6/UL 4.2 0-6.30 [facility] ([facility]) MCV 91.6 fL 80.0-97.0 [facility]) Hematocrit [Volume Fraction] of Blood by Automated count 37.2 % 3 7.0-51.0 [facility] ([facility]) MCHC 32.6 g/dL 31.0-38.0 [facility]) MCH 29.8 pg 26.0-32.0 [facility]) Erythrocyte distribution width [Ratio] by Automated count 14.4 % 11.6-13.7 [facility] ([facility]) Platelets [#/volume] in Blood by Automated count 240 x10*3/UL 140-440 [facility] ([facility]) MPV 7.1 FL 7.8-11.0 [facility]) Lymph % 26.4 % 10.0-58.5 [facility]) Mid % 7.1 % 1.7-9.3 [facility]) Neut % 66.5 % 37.0-92.0 [facility] Neut # 3.8 x10*3/UL 2.0-7.8 [facility] ([facility]) Mid # 0.5 x10*3/UL 0.1-0.6 [facility] ([facility]) Lymph # 1.5 x10*3/UL 0.6-4.1 [facility] ([facility]) Procedure Social History No Information Vital Signs ID Date Data Source UNK Name Value Range Interpretation Code Description Data Source(s) Systolic blood pressure 134 mm[Hg] 134 mm[Hg] M [facility] ([facility]) Diastolic blood pressure 84 mm[Hg] 84 mm[Hg] [facility] ([facility]) Heart rate 87 /min 87 /min [facility] ([facility]) Oxygen saturation in Arterial blood by Pulse oximetry 93 % 93 % [facility] ([facility]) Body temperature 97.0 [degF] 97.0 [degF] [facility] ([facility]) Body height 59 [in_i] 59 [in_i] [facility] ([facility]) 4'11" Body weight 152.00 [lb_av] 152.00 [lb_av] [facility] Body mass index (BMI) [Ratio] 30.7 kg/m2 30.7 k g/m2 [facility] ([facility]) Peck body weight 100 [lb_av] 100 [lb_av] [facility] Body weight 68.947 kg 68.947 kg [facility] ([facility]) Body surface area Derived from formula 1.64 m2 1.64 m2 [facility] ([facility]) Systolic blood pressure 122 mm[Hg] 122 mm[Hg] M [facility] ([facility]) Diastolic blood pressure 80 mm[Hg] 80 mm[Hg] [facility] ([facility]) Heart rate 102 /min 102 /min [facility] ([facility]) Body height 59 [in_i] 59 [in_i] [facility] ([facility]) 4'11" Body weight 157.00 [lb_av] 157.00 [lb_av] [facility] Oxygen saturation in Arterial blood by Pulse oximetry 97 % 97 % [facility] ([facility]) Body mass index (BMI) [Ratio] 31.7 kg/m2 31.7 k g/m2 [facility] ([facility]) Body mass index (BMI) [Ratio] 31.5 kg/m2 31.5 k g/m2 [facility] ([facility]) Heart rate 94 /min 94 /min [facility] ([facility]) Body height 59 [in_i] 59 [in_i] [facility] ([facility]) 4'11" Body weight 156.00 [lb_av] 156.00 [lb_av] [facility] ([facility]) Oxygen saturation in Arterial blood by Pulse oximetry 96 % 96 % [facility] ([facility]) Systolic blood pressure 116 mm[Hg] 116 mm[Hg] M [facility] ([facility]) Diastolic blood pressure 72 mm[Hg] 72 mm[Hg] [facility] ([facility]) Heart rate 94 /min 94 /min [facility] ([facility]) Body height 59 [in_i] 59 [in_i] [facility] ([facility]) 4'11" Body weight 155.00 [lb_av] 155.00 [lb_av] [facility] ([facility]) Oxygen saturation in Arterial blood by Pulse oximetry 96 % 96 % [facility] ([facility]) Body mass index (BMI) [Ratio] 31.3 kg/m2 31.3 k g/m2 [facility] ([facility])
--- OUTSIDE RECORDS SUMMARY | 2021-06-30 07:56 | CCD ---
Author Author [facility] Organization [facility] Address Unknown Phone Unavailable Care Team Providers Care Corporate Job Titles Name Role Phone MARK, F XAVIER DO Unavailable Unavailable MARK, F XAVIER DO Unavailable Unavailable MARK, F XAVIER DO Unavailable Unavailable MARK, F XAVIER DO Unavailable Unavailable MARK, F XAVIER DO Unavailable Unavailable MARK, F XVAIER DO Unavailable Unavailable MARK, F XAVIER DO [...] XAVIER DO Unavailable Unavailable Hospital Lab, [facility] Unavailable Unavailable Serge Echeverria MD Unavailable Unavailable [...] is protected by Article 27-F of the [facility] Public Health law. If you continue you may have access to information: Regarding HIV / AIDS; Provided by facilities licensed or operated by the [facility] Office of Mental Health; or Provided by the [facility] Office for People With Developmental Disabilities. If such information is present, then the following [facility] mandated warning applies: This information has been [...] [place] Unknown Female Problem [facility] Unknown Female Problem [facility] ([facility]) Unknown Female Problem [facility] ([facility]) Encounters Encounter Providers Location Date Indications Data Source(s ) Emergency Attender: Serge Echeverria MDConsultant: Daisy CHENEY 03/04/2021 11:38:00 AM EDT - 03/04/2021 02:32:00 PM EDT [facility] Patient discharged. Emergency Attender: Serge Echeverria MDConsultant: Daisy RODRIGUEZ ANP 02/17/2021 07:58:00 AM EDT - 02/17/2021 10:25:00 AM EDT [facility] Patient discharged. Emergency Attender: AXVIER ROBERTSON DOConsultant: Daisy CHENEY 12/10/2020 05:37:00 AM EDT - 12/10/2020 07:15:00 AM EDT [facility] Patient discharged. Emergency Attender: KAREN SAUCEDO MDConsultant: Susan RODRIGUEZ ANP 12/01/2020 12:20:00 PM EDT - 12/01/2020 04:50:00 PM EDT [facility] Patient discharged. Outpatient Attender: [facility] 10/14/2020 12:0 4:00 AM EDT [facility] Emergency Attender: KAREN SAUCEDO MDConsultant: Susan RODRIGUEZ ANP 10/13/2020 11:01:00 PM EDT - 10/14/2020 04:24:00 AM EDT [facility] Patient discharged. Outpatient Attender: Daisy Craig 05/2021 01:40:00 PM EST [facility] ([facility] ) Emergency Attender: HENRI BOYLE MDConsultant: Daisy TREVINO ANP 07/01/2020 06:35:00 AM EST - 07/01/2020 07:46:00 AM EST [facility] Patient discharged. Outpatient Attender: Daisy Craig 01:45:00 PM EST [facility] ([facility] ) Outpatient Attender: Daisy Craig 02:45:00 PM EDT [facility] ([facility] ) Immunizations Vaccine Date Status Description Data Source(s) COVID-19 VACCINE [facility] 04/11/2021 12:00:00 AM EDT completed [facility] Vaccine Series Complete: YESThis Data wa s Submitted to [facility]. COVID-19 VACCINE Pfizer 03/21/2021 12:00:00 AM EDT completed [facility] Vaccine Series Complete: NOThis Data was Submitted to [facility]. Influenza, injectable, MDCK, preservative free, stefania valent 05/01/2020 02:55:00 PM EDT completed [facility] Medications Medication Brand Name Start Date Product [...] Antacid 11/07/2020 12:00:00 AM EDT active [facility] ([facility]) 30 mg 11/07/2020 12:00:00 AM EDT [...] 09/20/2020 12:00:00 AM EST ORAL active [facility]) 2.5-0.025 mg 09/12/2020 12:00:00 AM [...] DAILY DOSE = 9 TABLETS SOLD: 09/05/2020 [facility] Colestipol Hydrochloride 1000 MG Oral Tablet Colestipol [...] DAILY DOSE = 9 TABLETS SOLD: 11/28/2020 [facility] olanzapine 5 MG Oral Tablet OLANZAPINE 09/03/2020 [...] TWO TIMES A DAY SOLD: 07/18/2020 [facility] olanzapine 5 MG Oral Tablet Olanzapine 07/12/2020 12:00:00 AM EST ORAL active [facility] ([facility]) 0.5 mg 07/12/2020 12:00:00 AM EST tablet 60 TAKE ONE TABLET BY MOUTH TWICE A DAY MAXIMUM DAILY DOSE = TWO TABLETS TAKE ONE TABLET BY MOUTH TWICE A DAY MAXIMUM DAILY DOSE = TWO TABLETS SOLD: 07/18/2020 [facility] Cyclobenzaprine hydrochloride 10 MG Oral Tablet CYCLOBENZAPR INE HCL 07/11/2020 12:00:00 AM EST tablet 60 TAKE ONE TABLET BY MOUTH TWICE A DAY NEEDED TAKE ONE TABLET BY MOUTH TWICE A DAY NEEDED SOLD: 08/08/2020 [facility] Cyclobenzaprine hydrochloride 10 MG Oral Tablet CYCLOBENZAPR [...] DAILY DOSE = SIX TABLETS SOLD: 07/11/2020 [facility] Acetaminophen 325 MG Oral Tablet Acetaminophen 06/06/2020 12:00:00 AM EST active [facility] ([facility]) Meclizine Hydrochloride 25 MG Oral Tablet MECLIZINE HCL 05/30/2020 12:00:00 AM EST tablet 90 TAKE ONE TABLET BY MOUTH VICKI RY 8 HOURS NEEDED FOR DIZZINESS TAKE ONE TABLET BY MOUTH EVERY 8 HOURS NEEDED FOR DIZZINESS SOLD: 10/10/2020 [facility] Meclizine Hydrochloride 25 MG Oral Tablet MECLIZINE [...] Olanzapine 05/01/2020 12:00:00 AM EDT completed [facility] ([facility]) 2 mg 05/01/2020 12:00:00 AM [...] DAILY DOSE = 9 TABLETS SOLD: 07/28/2020 [facility] Insurance Providers Payer name Policy type / Coverage type Policy ID Covered republican ID Covered republican's relationship to laura Policy Laura Plan Information Medicare Natl Govt [facility] Medicare Primary [id number] Self 0 [id number] Medicare [facility] Medicare Primary [id number] Self 0 [id number] Medicare Natl Govt Servic Medicare Primary [id number] Self 4 [id number] Medicare Natl Govt Servic Medicare Primary [id number] Self 0 [id number] Medicare Natl Govt Servic Medicare Primary [id number] Self [id number] Medicare - [place] Medicare Primary [id number] Self [id number] Medicare Natl Govt Servic Medicare Primary [id number] Self Medicare Natl Govt Servic Medicare Primary [id number] Self 4 [id number] Medicare - [place] Medicare Primary [id number] Self [id number] Medicare Natl Govt Servic Medicare Primary [id number] Self 4 [id number] Medicare Natl Govt Servic Medicare Primary [id number] Self 0 [id number] Medicare Natl Govt Servic Medicare Primary [id number] Self 4 [id number] BS [place] Medigap Part B [id number] Self MEDICARE [id number] SP [id number] BS [place] Medigap Part B [id number] Self [id number] BS [place] Trad/[place] Commercial [phone] [id number] Self [id number] MEDICARE [id number] SP [id number] [place] Primary [id number] Self Medicaid [place] Medig[place] Part B [id number] Self MEDICAID [id number] SP [id number] Medicaid Medigap Part B [id number] 0.0 Self [id number] MEDICAID M [id number] S [id number] MEDICAID [id number] SP [id number] ANSI-Medicare Part B [id number] ANSI-Medicaid [id number] ANSI-Medicare Part B [id number] ANSI-Medicaid [id number] ANSI-Medicare Part B [id number] ANSI-Medicaid [id number] ANSI-Medicare Part B [id number] ANSI-Medicaid [id number] ANSI-Medicaid [id number] ANSI-Medicare Part B [id number] MEDICARE [id number] SP [id number] ANSI-Medicare Part B [id number] ANSI-Medicaid [id number] [facility] [id number] 0.0 Self [id number] Medicaid [place] Med[place]ap Part B [id number] Self [id number] ANSI-Medicaid [id number] ANSI-Medicare Part B [id number] ANSI-Medicare Part B [id number] ANSI-Medicaid [id number] MEDICARE C [id number] S [id number] A Medicaid Medigap Part B [id number] 0.0 Self [id number] Medicaid Medigap Part B [id number] 0.0 Self [id number] Medicaid Medigap Part B [id number] 0.0 Self [id number] Medicaid Medigap Part B [id number] 0.0 Self [id number] [facility] [id number] S [id number] MEDICARE [id number] SP [id number] [place] Medig[place] Part B [id number] Self Medicaid Medigap Part B [id number] Self 1 1 BS [place] Medigap Part B [id number] Self [id number] BS [place] Medigap Part B [id number] Self [place] 306/806 NOT ACTIVE SP NOT ACTIVE SELF PAY UNAVAILABLE SP UNAVAILA BLE [place] 306/806 [id number] SP [id number] [place] BCBS S [id number] S [id number] [place] PPO 302/307 [id number] SP [id number] [place] [id number] SP [id number] Y [id number] MEDICARE PART A -O/P [id number] 18 [id number] MEDICAID -O/P EMERGENCY ROOM [id number] [place] [id number] SP [id number] MEDICARE C [id number] S [id number] MEDICARE PART A -O/P [id number] 18 [id number] MEDICARE PART A -O/P [id number] 18 [id number] Medicaid Medigap Part B [id number] Self [id number] BS [place] Part B [id number] Self [id number] Medicaid Medigap Part B [id number] 0.0 Self [id number] Medicaid [place] Med[place] Part B [id number] Self [id number] BS Of [place] Med[place] Part B [id number] Self [id number] [id number] MEDICARE [id number] SP [id number] A75 Medicaid Medigap Part B [id number] 0.0 Self [id number] ANSI-Medicare Part B [id number] ANSI-Medicaid [id number] ANSI-Medicaid [id number] ANSI-Medicare Part B [id number] [facility]-Medicaid [id number] [facility] [id number] Problems, Conditions, and Diagnoses Code Display Name Description Problem Type Effective Dates Data Source(s) O46341 Presence of unspecified artificial hip j oint Presence of unspecified artificial hip joint Diagnosis 03/04/2021 11:38:00 AM [facility] B12978 Personal history of nicotine dependence Personal history of nicotine dependence Diagnosis 03/04/2021 11:38:00 AM [facility] Z7901 nursing home (current) use of a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 nursing home (current) use of a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 Diagnosis [facility] Type 2 diabetes mellitus without complic ations Type 2 diabetes mellitus without complications Diagnosis 03/04/2021 11:38:00 AM EDT [facility] I10 Essential (primary) hypertension Essential (primary) h ypertension Diagnosis 03/04/2021 11:38:00 AM [facility] K5900 Constipation, unspecified Constipation, unspecified Di agnosis 03/04/2021 11:38:00 AM [facility] N3000 Acute cystitis without hematuria Acute cystitis without hematuria Diagnosis 02/17/2021 07:58:00 AM [facility] X84477 Pressure ulcer of other site, unspecifie d stage Pressure ulcer of other site, unspecified stage Diagnosis 02/17/2021 07:58:00 AM [facility] S68225 Pain in right foot Pain in right foot Diagnosis 07:58:00 AM [facility] G8929 Other chronic pain Other chronic pain Diagnosis 05:37:00 AM [facility] T25661 Pain in right ankle and joints of right foot Pain in right ankle and joints of right foot Diagnosis 12/10/2020 05:37:00 AM EDT [facility] R300 Dysuria Dysuria Diagnosis 12/10/2020 05:37:[address] [facility] R1312 Dysphagia, oropharyngeal phase Dysphagia, oropharyngea l phase Diagnosis 12/01/2020 12:20:00 PM EDT [facility] J029 Acute pharyngitis, unspecified Acute pharyngitis, unsp ecified Diagnosis 12/01/2020 12:20:00 PM EDT [facility] T92200 Unspecified asthma, uncomplicated Unspecified as thma, uncomplicated Diagnosis 10/13/2020 11:01:00 PM [facility] M419 Scoliosis, unspecified Scoliosis, unspecified Diagnosi s 10/13/2020 11:01:00 PM [facility] N3001 Acute cystitis with hematuria Acute cystitis with ilda turia Diagnosis 10/13/2020 11:01:00 PM [facility] R05 Cough Cough Diagnosis 10/13/2020 11:01:[address] [facility] Q78045 Personal history of urinary (tract) infe ctions Personal history of urinary (tract) infections Diagnosis 07/01/2020 06:35:[address] 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. ID Date Data Source [id number] 04/22/2021 08:18:00 AM EDT [facility] Name Value Range Interpretation Code Description Data Melanie rce(s) Supporting Document(s) SARS-CoV-2 (COVID 19) NEGATIVE - SARS-CoV-2 (COVID19) [facility] This lab was ordered by [facility] a nd reported by [facility]. ID Date Data Source [id number] 03/04/2021 11:38:00 AM EDT [facility] 1 OrderSheet [facility] Emergency Department [address] [address] Phone #: ext- [phone] 03/04/2021 11:37 [id number] Sex[facility] F : 1955 Age: 65yWEIGHT:77.1 kg (S) HEIGHT:59 inches (S) BMI:34.4ALLERGIES: Darvacet, Demerol, MicrodentinCHIEF COMPLAINT: abd pain, constipationDIAGNOSIS: ConstipationLAB ORDERSOrder Description Priority Entered Acknowledged InitialedDIAGNOSTIC STUDY ORDERSOrder Description Priority Entered Acknowledged InitialedAbdomen Multiview STAT 13:02 03/04/2021 13:03 Rose(Oxygen?(No)) Anita Fuentes clothing 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 (14:35 03/04/2021)][Electronically signed by Anita Fuentes (07:30 03/05/2021)][Electronically locked by Tyler Ladd R.N. (14:35 03/04/2021)] Name Value Range Interpretation Code Description Data Melanie rce(s) Supporting Document(s) ID Date Data Source [id number] 03/04/2021 11:38:00 AM EDT [facility] 1 Medication Reconciliation Report [facility] Emergency Department [address] [place] [address] Phone #: ext- [phone] 03/04/2021 11:37 Patient: FABIANO RAMIREZ Sex: F [...] the Emergency Department: 2 Medication Reconciliation Report [facility] Emergency Department [address] [place] [address] Phone #: ext- [phone] 03/04/2021 11:37 Patient: FABIANO RAMIREZ Sex: F : 1955 Age: 65yNone.The following Medications were prescribed to the patient:None. Name Value Range Interpretation Code Description Data Melanie rce(s) Supporting Document(s) ID Date Data Source [id number] 03/04/2021 11:38:00 AM EDT [facility] 1 Medication Administration Record [facility] Emergency Department [address] [place] [address] Phone #: ext- [phone] 03/04/2021 11:37 Patient: FABIANO RAMIREZ Sex: F : 1955 Age: 65yWeight: 77.1 kgHeight/Length: 59 inBMI: 34.4ALLERGIES: Darvacet, Microdentin, DemerolDate/Time Medication Administered Medication Ordered Name Value Range Interpretation Code Description Data Melanie rce(s) Supporting Document(s) ID Date Data Source [id number] 03/04/2021 11:38:00 AM EDT [place] [address] General Instructions [facility] Emergency Department [address] [place] [address] Phone #: ext- [phone] 03/04/2021 11:37 Patient: [...] by patient. ADDITIONAL INFORMATION 2 General Instructions [facility] Emergency Department [address] [place] [address] Phone #: ext- [phone] 03/04/2021 11:37 Patient: FABIANO RAMIREZ Sex: F [...] aging, work, and travel 3 General Instructions [facility] Department [address] [place] [address] Phone #: ext- [phone] 03/04/2021 11:37 Patient: [...] your healthcare provider first. 4 General Instructions [facility] Department [address] [place] [address] Phone #: ext- [phone] 03/04/2021 11:37 Patient: [...] have more tests or see a specialist.Call [phone] if any of these occur: Trouble breathing Stiff, rigid abdomen that is severely painful to touch Confusion Fainting or loss of consciousness Rapid heart rate Chest painWhen to seek medical adviceCall your healthcare provider right away if any of these occur: Fever of 100.4F (38C) or higher, or as directed by your healthcare provider 5 General Instructions [facility] Department [address] [place] [address] Phone #: ext- [phone] 03/04/2021 11:37 Patient: FABIANO RAMIREZ Sex: F : 1955 Age: 65y Failure to resume normal bowel movements Pain in your abdomen or back gets worse Nausea or vomiting Swelling in your abdomen Blood in the stool Black, tarry stool Involuntary weight loss Weakness 4850-3763 [employer] [address] [place] [address] 84709. All rights reserved. This information is not [...] high in fiber 6 Genera l Instructions [facility] Emergency Department [address] [place] [address] Phone #: ext- [phone] 03/04/2021 11:37 [id number] Sex: F : 1955 Age: 65yThese foods [...] green peas, celery, eggplant, potatoes, spinach, broccoli, Hines sprouts, winter squash, carrots, cauliflower, soybeans, lentils, and fresh and dried beans of all kinds. Other. Popcorn; any spicesIf you have diverticulosisThere aren't any specific foods to avoid if you have diverticulosis. But each person is different. Theremay be some foods that make your symptoms worse. Keep track and don't eat foods that make youfeel worse. 3124-8236 [employer] [address] [place] [address]. All rights reserved. This information is not intended as asubstitute for professional medical care. Always follow your health hourly caregiver's instructions. You have been given the following additional information: Constipation (Adult) High-Fiber Diet(Electronically signed by EMRE Puga 03/05/2021 07:30) Name Value Range Interpretation Code Description Data Melanie rce(s) Supporting Document(s) ID Date Data Source [id number] 03/04/2021 11:38:00 AM EDT [facility] 1 Clinical Report - Nurses [facility] Emergency Department [address] [place] [address] Phone #: ext- [phone] 03/04/2021 11:37 Patient: FABIANO RAMIREZ Sex: F : 1955 Age: 65yTRIAGEArrived by EMS. Historian: patient. Unaccompanied.Triage time: late entry - 11:34 03/04/2021. Acuity: LEVEL 3.Chief Complaint: ABDOMINAL PAIN and CONSTIPATION.Alert. No acute distress.Onset. (1 weeks ago). ( Pt hasnt had a normal BM in about a week. Pt was seen at [facility] yesterday andwas unable to tolerate a CT scan. She had a small BM 2 days ago. Pt has c/o of abd pain with a burningsensation.). 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 SEPSIS SCREEN NEGATIVE. [...] Ladd R.N.Darvacet. 2 Clinical Report - Nurses [facility] Emergency Department [address] [place] [address] Phone #: ext- [phone] 03/04/2021 11:37 Patient: [...] "Do you 3 Clinical Report - Nurses [facility] Department [address] [place] [address] Phone #: ext- [phone] 03/04/2021 11:37 Patient: [...] Ladd R.N. 4 Clinical Report - Nurses [facility] Emergency Department [address] [place] [address] Phone #: ext- [phone] 03/04/2021 11:37 Patient: [...] F. Pain level now 5/10. --14:19 03/04/21 Rose clothing room supervisorJulio ER TechMonica late entry - 14:32 03/04/21. [...] Patient verbalized understanding. Written instructions provided in Lithuanian. The patient was discharged by the physician assistant corporate secretary. She was discharged home and unaccompanied at time of discharge. She left ambulatory and via taxi. 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 --14:34 03/04/21 So Ladd R.N.Locked/Released at 03/04/2021 14:35 by So Ladd R.N. Name Value Range Interpretation Code Description Data Melanie rce(s) Supporting Document(s) ID Date Data Source [id number] 03/04/2021 11:38:00 AM EDT [facility] 1 Clinical Report - Physicians/Mid Levels [facility] Emergency Department [address] [place] [address] Phone #: ext- [phone] 03/04/2021 11:37 Patient: [id number] Sex: F : 1955 Age: 65y Time [...] and bathroom." She was seen at [facility] yesterday but was unable to [...] recently by a health care provider ([facility] ED yesterday).REVIEW OF SYSTEMSNo chills, [...] Repair. 2 Clinical Report - Physicians/Mid Levels [facility] [address] [place] [address] Phone #: ext- [phone] 03/04/2021 11:37 Patient: FABIANO RAMIREZ Sex: F [...] 3. 3 Clinical Report - Physicians/Mid Levels [facility] [address] [place] [address] Phone #: ext- [phone] 03/04/2021 11:37 Patient: FABIANO RAMIREZ Sex: F : 1955 Age: 65yLABS, X-RAYS, AND EKGLaboratory Tests: Laboratory tests have been ordered, with results reviewed and considered in themedical decision making process. Abdomen Multiview: (OLE: 03/04/2021 13:02) ( MsgRcvd 03/04/2021 15:03) Final results Exam ABDOMEN MULTIPLE [facility] [address] [place] [address] PHONE: [phone] FAX: [phone] Name .................. : CANDIDO MARIO Acct Number.................. : [id number] ROOM. ................. : [facility]03 MR Number ................... : [id number] Stay type ............. : E/R Discharge Date......... ... : Admit Date ......... : 03/04/21 Admit Phys .................... : IRMA Stallings Date of ....... : 1955 Family Phys ................... : JENNY GARCIA Phone .................. : [phone] Age ................................ : 65 Film# .................. .:[id number] Sex ................................. : F Unsigned transcriptions are preliminary reports and do not represent a medical or legal document ABDOMEN MULTIPLE VIEW 22476 COMPLETE:03/04/21 13:02 39724 Reason(s): constipation, lower abd pain ABDOMINAL RADIOGRAPH [...] REC 4 Clinical Report - Physicians/Mid Levels [facility] [place] [address] Phone #: ext- [phone] 03/04/2021 11:37 Patient: FABIANO RAMIREZ Sex: F [...] packet. 5 Clinical Report - Physicians/Mid Levels [facility] Emergency Department [address] [place] [address] Phone #: ext- [phone] 03/04/2021 11:37 Patient: FABIANO RAMIREZ Sex: F : 1955 Age: 65y Motrin IB Oral : 400, prn. Potassium Chloride Oral : Packet 20 meq, 2x a day. Promethazine HCl Oral : Tablet 25 mg, prn. Sudafed Oral : 60 mg 2x a day. ZyPREXA Oral : Tablet 10 mg, at bedtime. Follow-up: Follow up with your [facility] provider Daisy Rodriguez NP Friday. Call for an appointment. Reason for referral: evaluation and treatment. Summary of care provided to patient via paper. Understanding of the discharge instructions verbalized by patient.(Electronically signed by EMRE Puga 03/05/2021 07:30) Name Value Range Interpretation Code Description Data Melanie rce(s) Supporting Document(s) ID Date Data Source [id number] 03/04/2021 03:03:00 PM EDT [facility] [address] [place] [address] PHONE: [phone] FAX: [phone] Name .................. : CANDIDO MARIO Acct Number.................. : [id number] ROOM. ................. : TR-03 MR Number ................... : [id number] Stay type ............. : E/R Discharge Date......... ... : Admit Date ......... : 03/04/21 Admit Phys .................... : IRMA Stallings Date of ....... : 1955 Family Phys ................... : JENNY GARCIA Phone .................. : [phone] Age ................................ : 65 Film# .................. .:[id number] Sex ................................. : F Unsigned transcriptions are preliminary reports and do not represent a medical or legal document ABDOMEN MULTIPLE VIEW 70583 COMPLETE:03/04/21 13:02 27072 Reason(s): constipation, lower abd pain ABDOMINAL RADIOGRAPH [...] EMERGENCY DEPT via modem Copy for: [facility] REC Page 1 of 1 Name Value Range Interpretation Code Description Data Melanie rce(s) Supporting Document(s) ID Date Data Source [id number] 02/19/2021 09:47:00 AM EDT [facility] [address] [place] [address] PHONE: [phone] FAX: [phone] Name .................. : CANDIDO MARIO Acct Number.................. : [id number] ROOM. ................. : TR- Number ................... : [id number] Stay type ............. : E/R Discharge Date......... ... : 02/17/21 Admit Date ......... : 02/17/21 Admit Phys .................... : IRMA Stallings Date of ....... : 1955 Family Phys ................... : [employer] Phone .................. : [phone] Age ................................ : 65 Film# .................. .:[id number] Sex ................................. 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 No other abnormalities. 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 Electronically Reviewed and Signed By NIGEL LEVINE MD , 02/19/21 09:47, [facility] Transcribe Initials: SHANNAN , Transcribe Date: 02/17/21 11:42, Dictation Date: Copy for: EMERGENCY DEPT via dunkirkm Copy for: 710 MED REC DISCHARGED Page 1 of 1 Name Value Range Interpretation Code Description Data Melanie rce(s) Supporting Document(s) ID Date Data Source [id number] 02/17/2021 07:58:00 AM EDT [facility] 1 OrderSheet [facility] Emergency Department [address] [place] [address] Phone #: ext- [phone] 02/17/2021 07:54 Patient: [...] R 10:13 02/17/2021 10:15 BurnhamSerge Harris ; clothing room supervisorJulio ER Tech1[Electronically signed by Naresh Guzman RN (10:25 02/17/2021)][Electronically signed by Serge Echeverria (11:03 02/17/2021)][Electronically locked by Naresh Guzman RN (10:25 02/17/2021)] Name Value Range Interpretation Code Description Data Melanie rce(s) Supporting Document(s) ID Date Data Source [id number] 02/17/2021 07:58:00 AM EDT [facility] 1 Medication Reconciliation Report [facility] Emergency Department [address] [place] [address] Phone #: ext [phone] 02/17/2021 07:54 Patient: FABIANO RAMIREZ Sex: F [...] the Emergency Department: 2 Medication Reconciliation Report [facility] Emergency Department [address] [place] [address] Phone #: ext- [phone] 02/17/2021 07:54 Patient: FABIANO RAMIREZ Sex: F : 1955 Age: 65yNone.The following Medications were prescribed to the patient:Bactrim DS 800 mg-160 mg tablet Take 1 tablet twice a day for 7 days -- Dispense 14 tablet. Refills: 0.Substitution permitted.Pharmacy - [facility] - [address] ; [place] [address]. . -- Serge Echeverria Name Value Range Interpretation Code Description Data Melanie rce(s) Supporting Document(s) ID Date Data Source [id number] 02/17/2021 07:58:00 AM EDT [place] [address] Medication Administration Record [facility] Emergency Department [address] [place] [address] Phone #: ext- [phone] 02/17/2021 07:54 Patient: FABIANO RAMIREZ Sex: F : 1955 Age: 65yWeight: 67.8 kgHeight/Length: 59 inBMI: 30.2ALLERGIES: Darvacet, Demerol, MicrodentinDate/Time Medication Administered Medication Ordered Name Value Range Interpretation Code Description Data [facility] Supporting Document(s) ID Date Data Source [id number] 02/17/2021 07:58:00 AM EDT [facility] 1 General Instructions [facility] Emergency Department [address] [place] [address] Phone #: ext- [phone] 02/17/2021 07:54 Patient: FABIANO RAMIREZ Sex: F [...] Dispense 14 tablet. Refills: 0.Substitution permitted.Pharmacy - [facility] - [address] ; [place] [address]. .Follow-up:Follow up with your healthcare provider.Understanding of the discharge instructions verbalized by patient. 2 General Instructions [facility] Emergency Department [address] [place] [address] Phone #: ext- [phone] 02/17/2021 07:54 Patient: FABIANO RAMIREZ Sex: F [...] a bladder infection are: 3 General Instructions [facility] Department [address] [place] [address] Phone #: ext- [phone] 02/17/2021 07:54 Patient: [...] Fluid loss (dehydration) Constipation 4 General Instructions [facility] Department [address] [place] [address] Phone #: ext- [phone] 02/17/2021 07:54 Patient: FABIANO RAMIREZ Sex: F [...] can irritate your bladder. 5 General Instructions [facility] Department [address] [place] [address] Phone #: ext- [phone] 02/17/2021 07:54 Patient: [...] if the results will affect your treatment.Call [phone] if any of the following occur: Trouble [...] swelling in the outer vaginal area (labia) [id number] [employer]. [address] [place] [address], [place] [address]. All rights reserved. This information is not intended as asubstitute for professional medical care. Always follow your healthcare professional's instructions. 6 General Instructions [facility] Emergency Department [address] [place] [address] Phone #: ext- [phone] 02/17/2021 07:54 Patient: FABIANO RAMIREZ Sex: F : 1955 Age: 65yYou have been given the following additional information:Bladder Infection, Female (Adult)(Electronically signed by Serge Echeverria 02/17/2021 11:03) Name Value Range Interpretation Code Description Data Melanie rce(s) Supporting Document(s) ID Date Data Source [id number] 02/17/2021 07:58:00 AM EDT [facility] 1 Clinical Report - Nurses [facility] Emergency Department [address] [place] [address] Phone #: zwj- [phone] 02/17/2021 07:54 Patient: FABIANO RAMIREZ Sex: F : 1955 Age: 65yTRIAGEArrived by EMS. Historian: patient.Acuity: LEVEL 4.Chief Complaint: RIGHT LOWER EXTREMITY PAIN.No injury occurred. Onset. (2 weeks ago). ( Pt states she has had right lower extremity pain for about thepast 2 weeks, she was seen here more than a couple weeks ago and an air splint was applied, she went [facility] yesterday and was released, she reports continued pain and now feels nausea).Treatment CENTERLESS GRINDER SET UP OPERATOR:None.EMS Treatment CENTERLESS GRINDER SET UP OPERATOR:EMS treatment verbally communicated and report reviewed. See [...] a day. 2 Clinical Report - Nurses [facility] Emergency Department [address] [place] [address] Phone #: ext- [phone] 02/17/2021 07:54 Patient: [...] Guzman RN. 3 Clinical Report - Nurses [facility] Department [address] [place] [address] Phone #: ext- [phone] 02/17/2021 07:54 Patient: FABIANO RAMIREZ Sex: F [...] Patient verbalized understanding. Written instructions provided in Lithuanian. The patient was discharged by the physician. [...] rce(s) Supporting Document(s) ID Date Data Source [id number] 02/17/2021 07:58:00 AM EDT [facility] 1 Clinical Report - Physicians/Mid Levels [facility] Emergency Department [address] [place] [address] Phone #: ext- [phone] 02/17/2021 07:54 Patient: FABIANO RAMIREZ Sex: F [...] No trauma. She states the ED at [facility] just wraps her toes, she thinks they wrapped it too tight. She wears a air cast and walks with a walker at home.). Patient denies an injury. Similar symptoms previously. Recent medical care: The patient was seen recently in the emergency department. ( Multiple times at [facility] for urinary complaints).REVIEW OF SYSTEMSNo chest [...] inspection. 2 Clinical Report - Physicians/Mid Levels [facility] Department [address] [place] [address] Phone #: ext- [phone] 02/17/2021 07:54 Patient: [...] UA done over last several months at [facility]. Not currently on antibiotics 3 Clinical Report - Physicians/Mid Levels [facility] Emergency Department [address] [place] [address] Phone #: ext- [phone] 02/17/2021 07:54 Patient: [...] tablet. Refills: 0. Substitution permitted. Pharmacy - [facility] - [address] ; [place] [address]. . 4 Clinical Report - Physicians/Mid Levels [facility] Emergency Department [address] [place] [address] Phone #: ext- [phone] 02/17/2021 07:54 Patient: FABIANO RAMIREZ Sex: F : 1955 Age: 65y Follow-up: Follow up with your healthcare provider. Understanding of the discharge instructions verbalized by patient.(Electronically signed by Serge Echeverria 02/17/2021 11:03) Name Value Range Interpretation Code Description Data Melanie rce(s) Supporting Document(s) ID Date Data Source [id number] 02/20/2021 07:22:00 AM EDT [facility] Name Value Range Interpretation Code Description Data Melanie rce(s) Supporting Document(s) CULTURE URINE [facility] spital _CULTURE URINE_$$[id number]$$066037$$953698$$790978$$359668$$781840$$625607$$768887$$093307$$ 678040$$634672$$584785$$581924$$753673$$632991$$598538$$322676$$551732$$047810$$ 022995$$181841$$708330$$165599$$631420$$113776$$338904$$251197 -- Continued on next page --Patient: CANDIDO MARIO Order: [id number] Page 2Culture: CULTURE URINE Status: Final ====$$[id number] DATE/TIME: 02/19/2021 08:06Culture: CULTURE URINE Status: FinalUrine Culture,Comprehensive: [id number] urogenital flora25,000-50,000 colony forming units per mLP1 Test performed by: [facility] KATY #: [id number] [address] [place] [address] [id number] [facility] [address]Aylcxwo Director : Ross Jeffers MD NPI #:Granite Chip Terrazzo Finisher : 02/20/21.0722.XMT.SENT REF ID Date Data Source [id number] 02/17/2021 09:31:00 AM EDT [facility] Name Value Range Interpretation Code Description Data Melanie rce(s) Supporting Document(s) URINALYSIS [facility] al[facility] URINALYSIS SOURCE R [facility] COLOR yellow NORMAL: Yellow [facility] CLARITY hazy NORMAL: Clear [facility] Specific gravity of Urine by Test strip 1.015 1.001 - 1.030 [facility] pH 8 5 - 9 [facility] Glucose [Mass/volume] in Urine by Test strip NORM NORMAL: Negat gabe [facility] Bilirubin.total [Presence] in Urine by Test strip NEG NORMAL: Negative [facility] Ketones [Presence] in Urine by Test strip NEG NORMAL: Negative [facility] Protein [Mass/volume] in Urine by Test strip NEG NORMAL: Negat [facility] Nitrite [Presence] in Urine by Test strip NEG NORMAL: Negative [facility] BLOOD 25 NORMAL: Negative A [facility] LEUK EST 100 NORMAL: Negative A [facility] Urobilinogen [Mass/volume] in Urine by Test strip NOR less deanna n 1.0 mg/dL [facility] MICROSCOPIC See Below [facility] ital WBC 10 - 15 NORMAL: NONE SEEN A [facility] Erythrocytes [#/volume] in Urine by Test strip 15 - 20 NORMAL: NON E SEEN A [facility] EPITHELIAL MODERATE NORMAL: NONE SEEN A [facility] Bacteria [Presence] in Urine sediment by Light microscopy 1+ SMALL NORMAL: NONE SEEN [facility] Amorphous sediment [Presence] in Urine sediment by Light yong roscopy 2+ NORMAL: NONE SEEN [facility] Crystals [type] in Urine sediment by Light microscopy See Below [facility] TRIPLE PHOS 3+ NORMAL: NONE SEEN A [facility] ID Date Data Source [id number] 12/10/2020 05:37:00 AM EDT [facility] 1 OrderSheet [facility] Emergency Department [address] [place] [address] Phone #: ext- [phone] 12/10/2020 05:37 Patient: [...] rce(s) Supporting Document(s) ID Date Data Source [id number] 12/10/2020 05:37:00 AM EDT [facility] 1 Medication Reconciliation Report [facility] Emergency Department [address] [place] [address] Phone #: ext- [phone] 12/10/2020 05:37 [id number] Sex[facility] F : 1955 Age: 65yWeight: 68.0 [...] Emergency Department: 2 Medication Re conciliation Report [facility] Emergency Department [address] [place] [address] Phone #: ext- [phone] 12/10/2020 05:37 Patient: FABIANO RAMIREZ Sex: F : 1955 Age: 65yMacrobid [PO] PO 100 mg, administered: 07:11 12/10/2020The following Medications were prescribed to the patient:Macrobid 100 mg capsule Take 1 capsule twice a day for 7 days -- Dispense 14 capsule. Refills: 0.Substitution permitted.Pharmacy - [facility] - [address] [place] [address]. . -- Xavier Robertson, Physician Name Value Range Interpretation Code Description Data Melanie rce(s) Supporting Document(s) ID Date Data Source [id number] 12/10/2020 05:37:00 AM EDT [facility] 1 Medication Administration Record [facility] Department [address] [place] [address] Phone #: ext- [phone] 12/10/2020 05:37 Patient: FABIANO RAMIREZ Sex: F : 1955 Age: 65yWeight: 68.0 kgHeight/Length: 59 inBMI: 30.3ALLERGIES: Darvacet, Demerol, Microdentin Date/Time Medication Administered Medication OrderedGiven MACROBID [PO] (NITROFURANTOIN Macrobid PO 100 mg (NOW)07:11 12/10/2020 MONOHYD MACRO)Roxanne Lerner R.N. Dose: 100 mg PO Name Value Range Interpretation Code Description Data Melanie rce(s) Supporting Document(s) ID Date Data Source [id number] 12/10/2020 05:37:00 AM EDT [facility] 1 General Instructions [facility] Department [address] [place] [address] Phone #: ext- [phone] 12/10/2020 05:37 Patient: [...] Dispense 14 capsule. Refills: 0.Substitution permitted.Pharmacy - [facility] - [address] ; [place] [address]. .Follow-up:Follow up with your healthcare provider in three days for staple removal. Call for an appointment. Summaryof care provided to patient via paper.Understanding of the discharge instructions verbalized. ADDITIONAL INFORMATIONBladder Infection, Female (Adult) 2 General Instructions [facility] Department [address] [place] [address] Phone #: ext- [phone] 12/10/2020 05:37 Patient: [...] Urgent need to urinate 3 General Instructions [facility] Department [address] [place] [address] Phone #: ext- [phone] 12/10/2020 05:37 Patient: [...] a diaphragm for controlTreatment 4 General Instructions [facility] Department [address] [place] [address] Phone #: ext- [phone] 12/10/2020 05:37 Patient: [...] your healthcare provider.Follow-up care 5 General Instructions [facility] Department [address] [place] [address] Phone #: ext- [phone] 12/10/2020 05:37 Patient: FABIANO RAMIREZ Sex: F [...] if the results will affect your treatment.Call [phone] [phone] if any of the following occur: [...] swelling in the outer vaginal area (labia) 3417-2770 [employer] [address] [place] [address]. All rights reserved. This information is not intended as asubstitute for professional medical care. Always follow your healthcare professional's instructions. You have been given the following additional information: Bladder Infection, Female (Adult) 6 General Instructions [facility] Department [address] [place] [address] Phone #: ext- [phone] 12/10/2020 05:37 Patient: [id number] Sex: F : 1955 Age: 65y(Electronically signed by Xavier Robertson, Physician 12/10/2020 07:04) Name Value Range Interpretation Code Description Data Melanie rce(s) Supporting Document(s) ID Date Data Source [id number] 12/10/2020 05:37:00 AM EDT [facility] 1 Clinical Report - Nurses [facility] Department [address] [place] [address] Phone #: ext- [phone] 12/10/2020 05:37 Patient: [...] LEG PAIN.Alert. No acute distress.This started today.Treatment CENTERLESS GRINDER SET UP OPERATOR:None.SEPSIS SCREEN: SIRS SCREEN NEGATIVE. SEPSIS SCREEN NEGATIVE. [...] Noam Carney.AllergiesDarvacet.Demerol. 2 Clinical Report - Nurses [facility] Department [address] [place] [address] Phone #: ext- [phone] 12/10/2020 05:37 Patient: FABIANO RAMIREZ Sex: F [...] membranes are 3 Clinical Report - Nurses [facility] Department [address] [place] [address] Phone #: ext- [phone] 12/10/2020 05:37 Patient: FABIANO RAMIREZ Sex: F [...] Patient verbalized understanding. Written instructions provided in Lithuanian. The patient was discharged home and accompanied [...] rce(s) Supporting Document(s) ID Date Data Source [id number] 12/10/2020 05:37:00 AM EDT [facility] 1 Clinical Report - Physicians/Mid Levels [facility] Department [address] [place] [address] Phone #: ext- [phone] 12/10/2020 05:37 Patient: [...] surgery. 2 Clinical Report - Physicians/Mid Levels [facility] Department [address] [place] [address] Phone #: ext- [phone] 12/10/2020 05:37 Patient: [...] process. 3 Clinical Report - Physicians/Mid Levels [facility] Department [address] [place] [address] Phone #: ext- [phone] 12/10/2020 05:37 Patient: [id number] Sex: F : 1955 Age: 65y Urinalysis: [...] arise. 4 Clinical Report - Physicians/Mid Levels [facility] Department [address] [place] [address] Phone #: ext- [phone] 12/10/2020 05:37 Patient: FABIANO RAMIREZ Sex: F : 1955 Age: 65y Prescription Medications: Macrobid 100 mg capsule Take 1 capsule twice a day for 7 days -- Dispense 14 capsule. Refills: 0. Substitution permitted. Pharmacy - [facility] [address] [place] [address]. . Follow-up: Follow up with your healthcare provider in three days for staple removal. Call for an appointment. Summary of care provided to patient via paper. Understanding of the discharge instructions verbalized.(Electronically signed by Xavier Robertson, Physician 12/10/2020 07:04) Name Value Range Interpretation Code Description Data Melanie rce(s) Supporting Document(s) ID Date Data Source [id number] 12/14/2020 09:42:00 AM EDT [facility] Name Value Range Interpretation Code Description Data Melanie rce(s) Supporting Document(s) CULTURE URINE [facility] _CULTURE URINE_$$938141$$305563$$252793$$896587$$659482$$471857$$486534$$903620$$470209$$ 727482$$878361$$398721$$444128$$611028$$120206$$338405$$497949$$473772$$011422$$ 037168$$456230$$539473$$743342$$121197$$879463$$207307$$071126 -- Continued on next page --Patient: CANDIDO MARIO Order: Page 2Culture: CULTURE URINE Status: Final ==== -- Continued on next page --Patient: CANDIDO MARIO Order: 2Culture: CULTURE URINE Status: Prelim =====$$[id number]$$[id number] DATE/TIME: 12/14/2020 09:06Culture: CULTURE URINE Status: FinalIsolate [...] on 12/13/2020 05:37 ET Escherichia coliUrine Culture,Comprehensive: [id number] coli Flag: APatient: CANDIDO MARIO Order: [id number] Page 3Culture: CULTURE URINE Status: Final ISOLATE [...] S S . . . . . .72341-4Fuvzkkbygx S S . . . . . .267-5Imipenem S S . . . . . .279-0Levofloxacin R R . . . . . .32261- 8Meropenem S S . . . . . .6652-2Nitrofurantoin S S . . . . . .363-2Piperacillin/Tazobactam S S . . . . . .412-7Tetracycline S S . . . . . .496-0Tobramycin S S . . . . . .508-2 Trimethoprim/Sulfa S S . . . . . .516-5P1 Test performed by: Rose HURTADO #: [id number] [address] [place] [address] [id number] [facility] [address]Elfjloj Director : Ross Jeffers MD NPI #:Granite Chip Terra[employer] Finisher : 12/13/20.1334.XMT.SENT REF 12/14/20.0942.XMT.SENT REF ID Date Data Source [id number] 12/10/2020 06:34:00 AM EDT [facility] Name Value Range Interpretation Code Description Data Melanie rce(s) Supporting Document(s) URINALYSIS [facility] alberto [facility] yellow NORMAL: Yellow [facility] CLARITY cloudy NORMAL: Clear [facility] spital Specific gravity of Urine by Test strip 1.015 1.001 - 1.030 [facility] pH 8 5 - 9 [facility] al Glucose [Mass/volume] in Urine by Test strip NORM NORMAL: Negat [facility] Bilirubin.total [Presence] in Urine by Test strip NEG NORMAL: Negative [facility] Ketones [Presence] in Urine by Test strip NEG NORMAL: Negative [facility] Protein [Mass/volume] in Urine by Test strip NEG NORMAL: Negat [facility] Nitrite [Presence] in Urine by Test strip NEG NORMAL: Negative [facility] BLOOD 10 NORMAL: Negative [facility] Leukocyte esterase [Presence] in Urine by Test strip 500 [address]: Negative [facility] Urobilinogen [Mass/volume] in Urine by Test strip NOR less deanna n 1.0 mg/dL [facility] MICROSCOPIC See Below [facility] ital WBC 20 - 30 NORMAL: NONE SEEN A [facility] Erythrocytes [#/volume] in Urine by Test strip 3 - 5 NORMAL: NON E SEEN [facility] EPITHELIAL MODERATE NORMAL: NONE SEEN A [facility] Bacteria [Presence] in Urine sediment by Light microscopy 2+ MOD NORMAL: NONE SEEN A [facility] Amorphous sediment [Presence] in Urine sediment by Light yong roscopy 2+ NORMAL: NONE SEEN [facility] ID Date Data Source [id number] 12/06/2020 09:09:00 AM EDT [facility] [address] [place] [address] PHONE: [phone] FAX: [phone] Name .................. : CANDIDO MARIO Acct Number.................. : [id number] ROOM. ................. : [place]-05 Number ................... : [id number] Stay type ............. : E/R Discharge Date......... ... : 12/01/20 Admit Date ......... : 12/01/20 Admit Phys .................... [facility] Date of ....... : 1955 Family Phys ................... : JENNY NAN Phone .................. : [phone] Age ................................ : 65 Film# .................. .:[id number] Sex ................................. : F Unsigned transcriptions are preliminary reports and do not represent a medical or legal document CT ST NECK W/O CONTRAST 19371 COMPLETE:12/01/20 15:07 RUFUS [id number] Reason(s): evaluate for foreign body as she [...] and further evaluation, Page 1 of 2 [place] [address] PHONE: [phone] FAX: [phone] Name .................. : CADNIDO MARIO Acct Number.................. : [id number] ROOM. ................. : VT-05 Number ................... : [id number] Stay type ............. : E/R Discharge Date......... ... : 12/01/20 Admit Date ......... : 12/01/20 Admit Phys .................... : VIJAYA Date of ....... : Family Phys ................... : JENNY GARCIA Phone .................. : [phone] Age ................................ : 65 Film# .................. .:[id number] Sex ................................. : F Unsigned transcriptions are preliminary reports and do not represent a medical or legal document CT ST NECK W/O CONTRAST 72226 COMPLETE:12/01/20 15:07 RUFUS [id number] Reason(s): evaluate for foreign body as she [...] rce(s) Supporting Document(s) ID Date Data Source [id number] 12/01/2020 12:20:00 PM EDT [facility] 1 OrderSheet [facility] Department [address] [place] [address] Phone #: ext- [phone] 12/01/2020 12:07 Patient: FABIANO RAMIREZ Sex: F [...] rce(s) Supporting Document(s) ID Date Data Source [id number] 12/01/2020 12:20:00 PM EDT [facility] 1 Medication Reconciliation Report [facility] Emergency Department [address] [place] [address] Phone #: ext- [phone] 12/01/2020 12:07 [id number] Sex: [facility] : 1955 Age: 65yWeight: 71.9 [...] the Emergency Department: 2 Medication Reconciliation Report [facility] Emergency Department [address] [place] [address] Phone #: ext- [phone] 12/01/2020 12:07 Patient: FABIANO RAMIREZ Sex: F : 1955 Age: 65yGI Cocktail [PO] PO 50 mL, administered: 12:40 12/01/2020tivan [IM] IM 1 mg, administered: 14:25 12/01/2020The following Medications were prescribed to the patient:None. Name Value Range Interpretation Code Description Data Melanie rce(s) Supporting Document(s) ID Date Data Source [id number] 12/01/2020 12:20:00 PM EDT [facility] 1 Medication Administration Record [facility] Emergency Department [address] [place] [address] Phone #: ext- [phone] 12/01/2020 12:07 Patient: [...] rce(s) Supporting Document(s) ID Date Data Source [id number] 12/01/2020 12:20:00 PM EDT [facility] 1 General Instructions [facility] Emergency Department [address] [place] [address] Phone #: ext- [phone] 12/01/2020 12:07 Patient: [...] an ear, nose and throat physician (an wagon washer)and a otolaryngology rep in three days. Reason for referral: evaluation. Summary of care provided to patientvia paper. ADDITIONAL INFORMATIONDysphagia (Adult) 2 General Instructions [facility] Emergency Department [address] [place] [address] Phone #: ext- [phone] 12/01/2020 12:07 Patient: FABIANO RAMIREZ [facility]#: [id number] Sex: F : 1955 Age: 65y Dysphagia [...] evaluate you using X-ray, 3 General Instructions [facility] Emergency Department [address] [place] [address] Phone #: ext- [phone] 12/01/2020 12:07 [facility]: [id number] Sex: F : 1955 Age: 65yspecial esophagus [...] for any of the followin General Instructions [facility] Emergency Department [address] [place] [address] Phone #: rda- [phone] 12/01/2020 12:07 Patient: FABIANO RAMIREZ Sex: F : 1955 Age: 65y Inability to keep down food or liquid Symptoms that get worse quickly Coughing that won't stop Continuing to lose weight Fever of 100.4F (38C) or higher, or as directed by your healthcare provider Other symptoms as indicated by your healthcare providerCall [address] [place] [address] for any of the following: Trouble breathing Inability to talk Drooling, inability to control secretions Loss of consciousness [phone] [employer]. [address] [place] [address]. All rights reserved. This information is not intended as asubstitute for professional medical care. Always follow your healthcare professional's instructions. You have been given the following additional information: Dysphagia (Adult)(Electronically signed by Karen Saucedo 12/01/2020 19:10) Name Value Range Interpretation Code Description Data Melanie rce(s) Supporting Document(s) ID Date Data Source [id number] 12/01/2020 12:20:00 PM EDT [facility] 1 Clinical Report - Nurses [facility] Emergency Department [address] [place] [address] Phone #: [phone]- [phone] 12/01/2020 12:07 Patient: FABIANO RAMIREZ Sex: F : 1955 Age: 65yTRIAGEArrived by EMS. Historian: EMS and patient.Acuity: LEVEL 4.Chief Complaint: SORE THROAT.This started yesterday. 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 See [...] Guzman RN.AllergiesDarvacet. 2 Clinical Report - Nurses [facility] Emergency Department [address] [place] [address] Phone #: ext- [phone] 12/01/2020 12:07 Patient: [...] in lowest 3 Clinical Report - Nurses [facility] Emergency Department [address] [place] [address] Phone #: ext- [phone] 12/01/2020 12:07 Patient: FABIANO RAMIREZ Sex: F : 1955 Age: 65y position. Brakes of bed on. Patient ready for evaluation- ED physician and PA notified. --12:27 12/01/20 Naresh Gumzan RN 12:40 12/01/2020 GI Cocktail (Calcium Carbonate Antacid) PO Oral Suspension 50 mL given. --12:40 12/01/20 Myles Landis R.N. Reassessment after medication administered. Pain still present but improving. Overall patient status is improved- she states feels better. GENERAL / NEURO / PSYCH: Alert. Oriented X 4. --13:02 12/01/20 Myles Landis R.N. Patient returned from [place] by wheelchair with tech. --14:20 12/01/20 Myles Landis R.N. ( Unable to get comfortable in CT). --14:12/01/20 Myles Landis R.N. 14:25 12/01/2020 Ativan (LORazepam) IM 1 mg given. Given in the left deltoid. Allergies verified and confirmed 5 rights. Information reviewed. Verbalizes understanding. --14:25 12/01/20 Myles Landis R.N. Patient returned from [place] by wheelchair with tech. --15:07 12/01/20 Myles [...] Patient verbalized understanding. Written instructions provided in Lithuanian. The patient was discharged by the physician. She was discharged home. She left ambulatory. 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 --16:49 12/01/20 Myles Landis R.N. 16:48 12/01/20. BP: 142/86. MAP: 104. HR: 74. RR: 18. O2 saturation: 97%. Temp: deferred. Pain level now: 08/30. --16:49 12/01/20 Myles Landis R.N. Departure time: 16:50 12/01/2020. --16:50 12/01/20 Myles Landis R.N.Locked/Released at 12/01/2020 16:50 by Myles Landis R.N. Name Value Range Interpretation Code Description Data Melanie rce(s) Supporting Document(s) ID Date Data Source [id number] 12/01/2020 12:20:00 PM EDT [facility] 1 Clinical Report - Physicians/Mid Levels [facility] Emergency Department [address] [place] [address] Phone #: ext- [phone] 12/01/2020 12:07 Patient: FABIANO RAMIREZ Sex: F : 1955 Age: 65y Time Seen: 12:28 12/01/2020; initial patient contact, initial documentation. Arrived- By ambulance. Historian- patient. Disposition decision: 16:27 12/01/2020.HISTORY OF PRESENT ILLNESS Chief Complaint: SORE THROAT. FOREIGN BODY SENSATION IN THROAT. 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 It was abrupt in onset and has [...] pain on swallowing. she was seen at [facility] where they did an xray [...] Surgeries: 2 Clinical Report - Physicians/Mid Levels [facility] Emergency Department [address] [place] [address] Phone #: ext- [phone] 12/01/2020 12:07 Patient: [...] 3. 3 Clinical Report - Physicians/Mid Levels [facility] [address] [place] [address] Phone #: ext- [phone] 12/01/2020 12:07 Patient: FABIANO RAMIREZ Sex: F [...] day. 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 Reason for referral: evaluation. Summary of care provided to patient via paper.(Electronically signed by Karen Saucedo 12/01/2020 19:10) Name Value Range Interpretation Code Description Data [facility] rce(s) Supporting Document(s) ID Date Data Source [id number] 11/04/2020 09:59:00 PM EDT [facility] Name Value Range Interpretation Code Description Data [facility] Supporting Document(s) Appearance, Urine RFX Laboratory test result [facility] ([facility]) PH,Urine RFX 7.0 units 5.0-9.0 [facility] ([facility]) Color, Urine RFX Laboratory test result [facility] ([facility]) Glucose, Urine (Ua) Auto RFX Laboratory test result [facility]) Specific Alpha Ur Auto RFX 1.013 1.002-1.035 [facility] ([facility]) Protein, Urine Auto RFX Laboratory test result [facility] ([facility]) Ketone, Urine Auto RFX Laboratory test result [facility] ([facility]) Urobilinogen, Urine Auto RFX 0.2 mg/dL 0.0-2.0 [facility]) Bilirubin, Urine Auto RFX Laboratory test result [facility]) Nitrite, Urine Auto RFX Laboratory test result [facility]) Blood, Urine Blood RFX Laboratory test result [facility] ([facility]) Leukocyte Esterase Ur Auto RFX Laboratory test result [facility] ([facility]) RBC, Urine Auto RFX 2 /HPF 0-3 [facility] WBC, Urine Auto RFX 12 /HPF 0-3 [facility]) Squam Epithelial Cell Ur Aurfx 1 /HPF 0-6 [facility] ([facility]) Mucus, Urine RFX Laboratory test result [facility] ([facility]) Bacteria, Urine Auto RFX Laboratory test result [facility] ([facility]) Hyaline Cast, Urine Auto RFX 1 /LPF 0-1 M [facility] ([facility]) ID Date Data Source [id number] 11/04/2020 09:59:00 PM EDT [facility] ([facility]) Name Value Range Interpretation Code Description [...] 1 S</content>
<content></content> ID Date Data Source [id number] 10/29/2020 11:06:00 AM EDT [facility] ([facility]) Name Value Range Interpretation Code Description Data Melanie rce(s) Supporting Document(s) Reflex Urine Culture Laboratory test result [facility] ([facility]) <content>FULL REPORT IN LAB NOTES (eCW [...] 2 S</content>
<content></content> ID Date Data Source [id number] 10/29/2020 11:06:00 AM EDT [facility] ([facility]) Name Value Range Interpretation Code Description Data Melanie rce(s) Supporting Document(s) Appearance, Urine RFX Laboratory test result [facility]) PH,Urine RFX 7.0 units 5.0-9.0 [facility]) Color, Urine RFX Laboratory test result [facility]) Specific Alpha Ur Auto RFX 1.012 1.002-1.035 [facility]) Protein, Urine Auto RFX Laboratory test result [facility]) Glucose, Urine (Ua) Auto RFX Laboratory test result [facility]) Urobilinogen, Urine Auto RFX 0.2 mg/dL 0.0-2.0 [facility]) Ketone, Urine Auto RFX Laboratory test result [facility]) Bilirubin, Urine Auto RFX Laboratory test result [facility]) Nitrite, Urine Auto RFX Laboratory test result [facility]) Leukocyte Esterase Ur Auto RFX Laboratory test result [facility]) WBC, Urine Auto RFX 29 /HPF 0-3 [facility]) Blood, Urine Blood RFX Laboratory test result [facility]) RBC, Urine Auto RFX 12 /HPF 0-3 [facility]) Squam Epithelial Cell Ur Aurfx 1 /HPF 0-6 [facility]) Bacteria, Urine Auto RFX Laboratory test result [facility]) Hyaline Cast, Urine Auto RFX 1 /LPF 0-1 M [facility]) Mucus, Urine RFX Laboratory test result [facility]) Amorphous Sediment RFX Laboratory test result [facility]) ID Date Data Source [id number] 10/29/2020 10:47:00 AM EDT [facility] Name Value Range Interpretation Code Description Data Melanie rce(s) Supporting Document(s) SARS COVID ANTIGEN NEGATIVE [facility] This lab was [facility] a nd reported by [facility]. ID Date Data Source [id number] 10/29/2020 10:47:00 AM EDT [facility] ([facility]) Name Value Range Interpretation Code Description Data Melanie rce(s) Supporting Document(s) Laboratory test finding (navigational concept) Laboratory test result [facility] ([facility]) The Tory SARS Antigen ALISTAIR does not diff erentiate between SARS-CoV and SARS-CoV-2. Negative results do not rule out COVID-19 and should not be used as the sole basis for treatment. Negative results should be considered in the context of a patient's recent exposure, history and the presence of clinical signs and symptoms consistent with COVID-19. ID Date Data Source [id number] 10/19/2020 08:54:00 AM EDT [facility] [address] [place] [address] PHONE: [phone] FAX: [phone] Name .................. : CANDIDO MARIO Acct Number.................. : [id number] ROOM. ................. : TR-04 MR Number ................... : [id number] Stay type ............. : E/R Discharge Date......... ... : 10/14/20 Admit Date ......... : 10/13/20 [facility] .................... [facility] Date of ....... : 1955 Family Phys ................... : JENNY NAN Phone . ................. : [phone] Age ................................ : 65 Film# .................. .:[id number] Sex ................................. : F Unsigned transcriptions are preliminary reports and do not represent a medical or legal document CHEST PORTABLE 60203 COMPLETE:10/14/20 00:54 SR 7229 Reason(s): cough hemoptysis [...] By Blane Pfeiffer MD , 10/19/20 08:55, [facility] Transcribe Initials: SHANNAN , Transcribe Date: 10/14/20 13:06, Dictation Date: Copy for: [facility] REC DISCHARGED Page 1 of 1 Name Value Range Interpretation Code Description Data Melanie rce(s) Supporting Document(s) ID Date Data Source [id number] 10/16/2020 09:15:00 AM EDT [address] [address] RESPIRATORY CARE REPORT ==== ---------NAME------- NUMBER SEX AGE ADMIT DISC. XRAY# F/C KELSEY MARIO [id number] F 65 10/13/20 10/14/20 [id number] MB4 E/R DATE OF : 1955 M/R# [id number] #: [id number] TR-04 LOCATION: EKG 77961 COMPLETE:10/14/20 0 0:29 T 99176 PHYSICIAN: VIJAYA Name Value Range Interpretation Code Description Data Melanie rce(s) Supporting Document(s) ID Date Data Source [id number] 10/13/2020 11:01:00 PM EDT [facility] 1 OrderSheet [facility] Department [address] [place] [address] Phone #: ext- [phone] 10/13/2020 23:01 Patient: FABIANO RAMIREZ Sex: F [...] 23:47 10/13/2020 00:19 10/14/2020(Urine, Clean [facility]cedo [facility]) ;Lactic Acid STAT 23:47 10/13/2020 23:59 Vijaya [...] Order 23:50 ; Karen Saucedo 2 OrderSheet [facility] Department [address] [place] [address] Phone #: ext- [phone] 10/13/2020 23:01 Patient: [...] InitialedAccucheck 23:47 10/13/2020 23:59 Angelika, 3 OrderSheet [facility] Department [address] [place] [address] Phone #: ext- [phone] 10/13/2020 23:01 Patient: FABIANO RAMIREZ Sex: F [...] rce(s) Supporting Document(s) ID Date Data Source [id number] 10/13/2020 11:01:00 PM EDT [facility] 1 Medication Reconciliation Report [facility] [address] [place] [address] Phone #: ext- [phone] 10/13/2020 23:01 Patient: [...] Home Medication information:patient 2 Medication Reconciliation Report [facility] Department [address] [place] [address] Phone #: ext- [phone] 10/13/2020 23:01 Patient: [...] Dispense 14 tablet. Refills: 0.Substitution permitted.Pharmacy - [id number] - [address] ; [place] [address]. . -- Karen Saucedo Name Value Range Interpretation Code Description Data Melanie rce(s) Supporting Document(s) ID Date Data Source [id number] 10/13/2020 11:01:00 PM EDT [facility] 1 Medication Administration Record [facility] [address] [place] [address] Phone #: ext- [phone] 10/13/2020 23:01 Patient: FABIANO RAMIREZ Sex: F : 1955 Age: 65yWeight: 91.6 kgHeight/Length: 62 inBMI: 37ALLERGIES: Darvacet, Demerol, Microdentin Date/Time Medication Administered Medication OrderedStart ROCEPHIN (1GM/50ML) [IVPB] Rocephin (1gm/50mL) IVPB 517650:56 10/14/2020 (CEFTRIAXONE SODIUM) mg with Dextrose 50 ml spike Noam Ramesh, Dose: 1 gm IVPB (D5W)---- Rate: 100 mL/hr over 30 minute(s)Stop Dispensed: 50 mL bag02:58 10/14/2020 Site: #1 left Noam Estrada, Name Value Range Interpretation Code Description Data Melanie rce(s) Supporting Document(s) ID Date Data Source [id number] 10/13/2020 11:01:00 PM EDT [facility] 1 General Instructions [facility] [address] [place] [address] Phone #: ext- [phone] 10/13/2020 23:01 Patient: [...] Dispense 14 tablet. Refills: 0.Substitution permitted.Pharmacy - [id number] - [address] ; [place] [address]. .Follow-up:Follow up with your healthcare provider Friday if not better. Reason for referral: evaluation. Summary ofcare provided to patient via paper. ADDITIONAL INFORMATION 2 General Instructions [facility] Department [address] [place] [address] Phone #: ext- [phone] 10/13/2020 23:01 Patient: FABIANO RAMIREZ Sex: F [...] prescribed for this condition. 3 General Instructions [facility] [address] [place] [address] Phone #: ext- [phone] 10/13/2020 23:01 Patient: FABIANO RAMIREZ Sex: F [...] loosen secretions in the nose and lungs. Iphf-tvp-rbyfbkp cold medicines will not shorten the length of time you're sick, but they may be helpful for the following symptoms: cough, sore throat, and nasal and sinus congestion. If you take prescription medicines, ask your healthcare provider or pharmacist which wdnv-gjn-dmocwyb medicines are safe to use. (Note: Don't [...] wheezing, or difficulty breathing 4 General Instructions [facility] [address] [place] [address] Phone #: ext- [phone] 10/13/2020 23:01 Patient: FABIANO RAMIREZ Sex: F : 1955 Age: 65y Coughing up blood Very severe pain with swallowing, especially if it goes along with a muffled voice [phone] [employer] [address] [place] [address]. All rights reserved. This information is not [...] of cystitis isan infection. 5 General Instructions [facility] Department [address] [place] [address] Phone #: [phone] zil- [phone] 10/13/2020 23:01 Patient: FABIANO RAMIREZ Sex: F [...] put in Older age 7 General Instructions [facility] Department [address] [place] [address] Phone #: ext- [phone] 10/13/2020 23:01 Patient: FABIANO RAMIREZ Sex: F [...] and vegetables, and fiber. 7 General Instructions [facility] [address] [place] [address] Phone #: ext- [phone] 10/13/2020 23:01 Patient: [...] outer vaginal area (labia) 8 General Instructions [facility] Department [address] [place] [address] Phone #: ext- [phone] 10/13/2020 23:01 Patient: FABIANO RAMIREZ Sex: F : 1955 Age: 65y [phone] [employer]. [address] [place] [address]. All rights reserved. This information is not intended as asubstitute for professional medical care. Always follow your healthcare professional's instructions. You have been given the following additional information: URI, Viral, No Abx (Adult) Bladder Infection, Female (Adult)(Electronically signed by Karen Saucedo 10/15/2020 07:57) Name Value Range Interpretation Code Description Data Melanie rce(s) Supporting Document(s) ID Date Data Source [id number] 10/13/2020 11:01:00 PM EDT [facility] 1 Clinical Report - Nurses [facility] [address] [place] [address] Phone #: ext- [phone] 10/13/2020 23:01 Patient: FABIANO RAMIREZ Sex: F [...] No acute distress.Onset. 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 2 Clinical Report - Nurses [facility] [address] [place] [address] Phone #: ext- [phone] 10/13/2020 23:01 Patient: [...] pre- and 3 Clinical Report - Nurses [facility] [address] [place] [address] Phone #: ext- [phone] 10/13/2020 23:01 Patient: FABIANO RAMIREZ Sex: F : 1955 Age: 65y post-medication administration. Information reviewed with patient including reason for taking this medication, signs of allergic reaction and precautions. Verbalizes understanding. 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 --02:36 10/14/20 Roxanne Lerner R.N. 02:37 [...] Patient verbalized understanding. Written instructions provided in Lithuanian. No treatment instructions. The patient was discharged by the physician. She was discharged home. She left ambulatory and via taxi. 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 --04:24 10/14/20 Noam Carney.Locked/Released at 10/14/2020 04:25 by Noam Carney Name Value Range Interpretation Code Description Data Melanie rce(s) Supporting Document(s) ID Date Data Source [id number] 10/13/2020 11:01:00 PM EDT [facility] 1 Clinical Report - Physicians/Mid Levels [facility] Department [address] [place] [address] Phone #: ext- [phone] 10/13/2020 23:01 Patient: FABIANO RAMIREZ Sex: F [...] surgery. 2 Clinical Report - Physicians/Mid Levels [facility] Department [address] [place] [address] Phone #: ext- [phone] 10/13/2020 23:01 Patient: FABIANO RAMIREZ Sex: F [...] Interpretation 3 Clinical Report - Physicians/Mid Levels [facility] Emergency Department [address] [place] [address] Phone #: ext- [phone] 10/13/2020 23:01 Patient: [...] CT CTA CHEST NON-CORONARY W CON INC [place] [id number] [facility] [place] [address] ---------NAME--------- NUMBER SEX AGE ADMIT DISC. XRAY# F/C TYPE CANDIDO MARIO [id number] F 65 10/13/20 [id number] E/R DATE OF : 1955 M/R# [id number] #: [id number] TR-04 LOCATION: TRANSCRIBED: 10/14/20 3:[address] CTA CHEST NON-CORONARY W [id number] COMPLETED:10/14/20 2:52 [facility] 7231 Reason(s): hemoptysis -- PHYSICIAN: VIJAYA -- -- R A D I O L O G Y R E P O R T -- PATIENT HISTORY: hemopstysis. isovue 370 75 ml [id number] exp 09/12. estimated dose 394.5. actual dose 395.6 mGy*cm. Time Out performed. Correct patient with 2 identifiers, type and amount of contrast used, correct body part and side all verified prior to examination. / COR SLAB MIP (DICOM Hx) EXAM: CTA Chest with Intravenous Contrast for PE evaluation -- CLINICAL HISTORY:hemopstysis. isovue 370 75 ml [id number] exp 09/12. estimated dose 394.5. actual dose [...] thoracic aorta. 4 Clinical Report - Physicians/Mid [facility] Emergency Department [address] [place] [address] Phone #: ext- [phone] 10/13/2020 23:01 Patient: [...] 7.0) 5 Clinical Report - Physicians/Mid Levels [facility] Emergency Department [address] [place] [place] [address] Phone #: ext- [phone] 10/13/2020 23:01 [id number] Sex: [facility] : 1955 Age: 65y BASO [...] Male GFR Interprentation 20-49 yrs >60 mL/min Qcmkah14-51 yrs >56 mL/min Normal 60-69 yrs >49 mL/min Normal 70-79yrs>42 mL/min Normal 80 and above >35 mL/min Normal Female GFRInterpretation 20-39 yrs >60 mL/min Normal 40-49 yrs >58 mL/minNormal 50-59 yrs >51 mL/min Normal 60-69 yrs >45 mL/min Lmhmbd30-93 yrs >39 mL/min Normal 80 and above >32 mL/min NormalLactic Acid: (OLE: 10/14/2020 00:01) ( [facility] [place]14[facility]:22) Final results Test Result Flag Units (Reference) LACTIC ACID 1.4 MMOL/L (0.2 - 2.2)PT/INR: (OLE: 10/14/2020 00:01) ( [facility] [place] 10/14/2020 00:22) Final results Test Result Flag Units (Reference) PROTIME 15.3 SECONDS (11.0 - 15.5) INR 1.15 (0.93 - 1.23) \\BLDo\\INR INTERPRETATION\\BLDx\\ Therapeutic range for Coumadin andrelated oral a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. - International Normalized Ratio (INR): 2.0 - 3.0 for VenousThrombosis, Pulmonary Embolus, Tissue heart valves, Acute NV, Atrial Fibrillation, Valvular heartdisease and recurrent Systemic Embolism. - International Normalized Ratio (INR): 2.5 - 3.5 6 Clinical Report - Physicians/Mid Levels [facility] Emergency Department [address] [place] [address] Phone #: ext- [phone] 10/13/2020 23:01 [facility]: [id number] Sex: F : 1955 Age: 65yfor Mechanical Prosthetic valve.PT/PTT: (OLE: 10/13/2020 23:47) ( [facility] [place] [facility] 10[facility]14[facility] 00:06) CanceledTroponin-T: (OLE: 10/14/2020 00:01) ( [facility] [place] 10/14/2020 00:39) Final results Test Result Flag Units (Reference) TROPONIN T <0.01 NG/ML (0.00 - 0.10) TROPONIN T0.1 ng/ml Recommended as the clinical threshold value forTroponin T.Urinalysis: (OLE: 10/13/2020 23:45) ( [facility] [place] 10/14/2020 00:22) Final results Test Result Flag [...] NONEVenous Blood Gas: (OLE: 10/13/2020 23:47) ( [facility] [place] 10/13/2020 23:50) CanceledCRP: (OLE: 10/14/2020 00:01) ( [facility] [place] 10/14/2020 00:40) Final results Test Result Flag [...] 10/13/2020 23:47) ( MsgRcvd 10/14/2020 00:54) In [place] 7 Clinical Report - Physicians/Mid Levels [facility] Emergency Department [address] [place] [address] Phone #: ext- [phone] 10/13/2020 23:01 Patient: [...] Oral. 8 Clinical Report - Physicians/Mid Levels [facility] Emergency Department [address] [place] [address] Phone #: [phone] gar- [phone] 10/13/2020 23:01 Patient: FABIANO RAMIREZ Sex: F [...] tablet. Refills: 0. Substitution permitted. Pharmacy - [id number] - [address] ; [place] [address]. . Follow-up: Follow up with your healthcare provider Friday if not better. Reason for referral: evaluation. Summary of care provided to patient via paper.(Electronically signed by Karen Saucedo 10/15/2020 07:57) Name Value Range Interpretation Code Description Data Melanie rce(s) Supporting Document(s) ID Date Data Source [id number] 10/14/2020 03:51:00 AM EDT [facility] [address] [address] ---------NAME--------- NUMBER SEX AGE ADMIT DISC. XRAY# F/C TYPE CANDIDO MARIO [id number] F 65 10/13/20 [id number] E/R DATE OF : 1955 M/R# [id number] #: [id number] TR-04 LOCATION: TRANSCRIBED: 10/14/20 3:[address] CTA CHEST NON-CORONARY W [id number] COMPLETED:10/14/20 2:52 [facility] 7231 Reason(s): hemoptysis PHYSICIAN: VIJAYA R A D I O L O G Y R E P O R T PATIENT HISTORY:hemopstysis. isovue 370 75 ml [id number] exp 09/12. estimated dose 394.5. actualdose 395.6 mGy*cm.Time Out performed. Correct patient with 2 identifiers, type and amount ofcontrast used, correct body part and side all verified prior to examination. /COR SLAB MIP (DICOM Hx)EXAM: CTA Chest with Intravenous Contrast for PE evaluationCLINICAL HISTORY:hemopstysis. isovue 370 75 ml [id number] exp 09/12. estimated hvjo045.5. actual dose 395.6 mGy*cm. Time Out performed. [...] rce(s) Supporting Document(s) ID Date Data Source [id number] 10/21/2020 06:30:00 AM EDT [facility] Name Value Range Interpretation Code Description Data Melanie rce(s) Supporting Document(s) CULTURE BLOOD [facility] _CULTURE BLOOD_ [place] [address] CLIA# [id number] SEE SCANNED REPORT{ PRELIM ID Date Data Source [id number] 10/14/2020 12:35:00 AM EDT [facility] ([facility]) Name Value Range Interpretation Code Description Data Melanie rce(s) Supporting Document(s) Culture Blood Laboratory test result [facility] ([facility]) _CULTURE BLOOD_ [place] [address] CLIA# [id number] SEE SCANNED REPORT { PRELIM ID Date Data Source [id number] 10/19/2020 11:49:00 AM EDT [facility] [address] Name Value Range Interpretation Code Description Data Melanie rce(s) Supporting Document(s) Bacteria identified in Blood by Culture [facility] NO GROWTH AFTER 5 DAYS ID Date Data Source [id number] 10/21/2020 06:29:00 AM EDT [facility] Name Value Range Interpretation Code Description Data Melanie rce(s) Supporting Document(s) [place] BLOOD [facility] _CULTURE BLOOD_ TEST PERFORM ED AT [address] [address] CLIA# [id number] SEE SCANNED REPORT{ PRELIM ID Date Data Source [id number] 10/14/2020 12:04:00 AM EDT [facility] ([facility]) Name Value Range Interpretation Code Description Data Melanie rce(s) Supporting Document(s) Culture Blood Laboratory test result [facility] ([facility]) _CULTURE BLOOD_ TEST PERFORMED AT [address] [address] [facility]# [id number] SEE SCANNED REPORT { PRELIM ID Date Data Source [id number] 10/14/2020 12:01:00 AM EDT [facility] ([facility]) Name Value Range Interpretation Code Description Data Melanie rce(s) Supporting Document(s) C reactive protein [Mass/volume] in Serum or Plasma by High sensitivity method 11.76 mg/L 1.00-3.00 [facility] <content>CDC/S HS-CRP CUT-OFF: RELATIVE RISK:</content>
<content><1.0 mg/L Low</content>
<content>1.0 - 3.0 mg/L Average</laron nt>
<content>>3.0 mg/L High</content>
<content>Optimally, the average of HS-CRP results repeated</content>
<content>two weeks apart should be used for risk assessment.</content>
<content></content> Magnesium Serum 2.2 mg/dL 1.7-2.2 [facility] ([facility]) Natriuretic peptide.B prohormone N-Terminal [Mass/volu me] in Serum or Plasma 20 pg/mL 0-125 [facility] ([facility] ) Fibrin D-dimer [Presence] in Platelet poor plasma 0.32 ug/mL 0.27-0.5 0 [facility] ([facility]) ID Date Data Source [id number] 10/14/2020 12:01:00 AM EDT [facility] ([facility]) Name Value Range Interpretation Code Description Data Melanie rce(s) Supporting Document(s) Comprehensive [facility]abo Laboratory test result [facility] ([facility]) COMPREHENSIVE METABOLIC PANEL Sodium 140 meq/L 134-153 [facility] Potassium 3.9 meq/L 3.6-5.0 [facility]) Co2 31 meq/L 22-30 [facility] Chloride 102 meq/L 98-107 [facility] BUN 12 mg/dL 7-21 [facility]) Glucose 94 mg/dL 70-99 [facility]) Creatinine 0.8 mg/dL 0.7-1.5 [facility] ([facility]) Total Protein 7.0 g/dL 6.3-8.2 [facility] ([facility]) BUN/Creat 15 8-27 [facility]) Globulin 2.8 GM/DL 2.4-3.2 [facility]) Albumin 4.2 g/dL 3.9-5.0 [facility]) A/G Ratio 1.5 0.8-2.0 [facility]) Calcium 10.1 mg/dL 8.4-10.2 [facility] ([facility]) Total Bili Laboratory test result 0.2-1.3 [facility] ([facility]) Alkaline Phos 62 U/L 38-126 [facility] ([facility]) Sgot/Ast 14 U/L 5-40 [facility]) SGPT/Alt 13 U/L 7-56 [facility]) Anion Gap 7.0 mmol/L 8.0-16.0 [facility] ([facility]) Non-Aa GFR Laboratory test result [facility] ([facility]) Age 65 yrs [facility]) Afr Amer GFR Laboratory test result [facility] NT ([facility]) Male GFR Interprentation 20-49 yrs >60 [...] >32 mL/min Normal ID Date Data Source [id number] 10/14/2020 12:01:00 AM EDT [facility] ([facility]) Name Value Range Interpretation Code Description Data Melanie rce(s) Supporting Document(s) Troponin T.cardiac [Mass/volume] in Serum or Plasma Laborato ry test result 0.00-0.10 [facility] ([facility]) TROPONIN T 0.1 ng/ml Recommended as the clinical th reshold value for Troponin T. ID Date Data Source [id number] 10/14/2020 12:01:00 AM EDT [facility] ([facility]) Name Value Range Interpretation Code Description Data Melanie rce(s) Supporting Document(s) pCO2 V 56.1 mm/HG 38.0-51.0 [facility] pH V 7.37 7.32-7.43 [facility]) pO2 V 39.7 mm/HG 30.0-55.0 [facility] Hco3 V 31.5 meq/L 22.0-29.0 [facility] Tco2 V 33.2 meq/L 22.0-29.0 [facility] O2 Sat V 73.4 % 40.0-85.0 [facility]) Base Excess 4.9 [facility] ([facility]) ID Date Data Source [id number] 10/14/2020 12:01:00 AM EDT [facility] ([facility]) Name Value Range Interpretation Code Description Data Melanie rce(s) Supporting Document(s) Protime 15.3 s 11.0-15.5 [facility]) Inr 1.15 0.93-1.23 [facility]) \\BLDo\\INR INTERPRETATION\\BLDx\\ Therapeutic range for Coumadin and related oral a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. -International Normalized Ratio (INR): 2 .0 - 3.0 for Venous Thrombosis, Pulmonary Embolus, Tissue heart valves, Acute NV, Atrial Fibrillation, Valvular heart disease and recurrent Systemic Embolism. -International Normalized Ratio (INR): 2 .5 - 3.5 for Mechanical Prosthetic valve. ID Date Data Source [id number] 10/14/2020 12:01:00 AM EDT [facility] ([facility]) Name Value Range Interpretation Code Description Data Melanie rce(s) Supporting Document(s) Lactate [Mass/volume] in Serum or Plasma 1.4 mmol/L 0.2-2.2 [facility] ([facility]) ID Date Data Source [id number] 10/14/2020 12:01:00 AM EDT [facility] ([facility]) Name Value Range Interpretation Code Description Data Melanie rce(s) Supporting Document(s) CBC W/Automated Diff Laboratory test result [facility] ([facility]) COMPLETE BLOOD COUNT WBC 5.8 10^3/uL 4.2-11.0 [facility] ([facility]) RBC 3.92 10^6/uL 4.20-5.40 [facility] ([facility]) Hematocrit 36.6 % 37.0-47.0 [facility]) Hemoglobin 11.9 g/dL 12.0-16.0 [facility] MCV 93.4 fL 81.0-101 [facility] MCH 30.4 pg 27.0-34.0 [facility] RDW 15.5 % 11.5-14.5 [facility] MCHC 32.5 g/dL 31.0-36.0 [facility] Platelets 204 10^3/uL 150-450 [facility] ([facility]) MPV 8.4 fL 7.4-10.4 [facility]) Neut 43.7 % 37.0-80.0 [facility]) Lymph 45.6 % 25.0-40.0 [facility]) [place] 6.2 % 3.0-8.0 [facility]) Baso 0.3 % 0.0-2.5 [facility] Eos 4.0 % 0.0-7.0 [facility] %Ig 0.2 % 0.0-0.0 [facility] %NRBC 0.0 % 0.0-0.0 [facility]) #Neut 2.54 10^3/uL 2.00-6.90 [facility] ([facility]) #Lymph 2.65 10^3/uL 0.60-3.40 [facility] ([facility]) #[place] 0.36 10^3/uL 0.00-0.90 [facility] ([facility]) #Eos 0.23 10^3/uL 0.00-0.70 [facility] ([facility]) #Baso 0.02 10^3/uL 0.00-0.20 [facility] ([facility]) #Ig 0.01 10^3/uL 0.00-0.10 [facility] ([facility]) #NRBC 0.00 10^3/uL 0.00-0.00 [facility] ([facility]) Manual Diff Laboratory test result [facility] ([facility]) RBC Morph Laboratory test result [facility] ([facility]) ID Date Data Source [id number] 10/14/2020 02:08:00 AM EDT [facility] Value Range Interpretation Code Description Data Melanie rce(s) Supporting Document(s) BNP 20 PG/ML 0 - 125 [facility] ID Date Data Source [id number] 10/14/2020 12:40:00 AM EDT [facility] Value Range Interpretation Code Description Data Melanie rce(s) Supporting Document(s) Fibrin D-dimer FEU [Mass/volume] in Platelet poor plasma 0.32 ug /mL 0.27 - 0.50 [facility] ID Date Data Source [id number] 10/14/2020 12:39:00 AM EDT [facility] Value Range Interpretation Code Description Data Melanie rce(s) Supporting Document(s) Magnesium [Mass/volume] in Serum or Plasma 2.2 MG/DL 1.7 - 2.2 [facility] ID Date Data Source [id number] 10/14/2020 12:39:00 AM EDT [facility] Name Value Range Interpretation Code Description Data Melanie rce(s) Supporting Document(s) C reactive protein [Mass/volume] in Serum or Plasma by High sensitivity method 11.76 MG/L 1.00 - 3.00 H [facility] CDC/S HS-CRP CUT-OFF: RELATIVE RISK: <1.0 mg/L Low 1.0 - 3.0 mg/L Average >3.0 mg/L High Optimally, the average of HS-CRP results repeated two weeks apart should be used for risk assessment. ID Date Data Source [id number] 10/14/2020 12:39:00 AM EDT [facility] Name Value Range Interpretation Code Description Data Melanie rce(s) Supporting Document(s) COMPREHENSIVE METABOLIC PANEL [facility] COMPREHENSIVE METABOLIC PANEL Sodium [Moles/volume] in Serum or Plasma 140 mEq/L 134 - 153 [facility] Potassium [Moles/volume] in Serum or Plasma 3.9 mEq/L 3.6 - 5.0 [facility] Chloride [Moles/volume] in Serum or Plasma 102 mEq/L 98 - 107 [facility] Carbon dioxide, total [Moles/volume] in Serum or Plasma 31 MEQ/L 22 - 30 H [facility] Glucose [Mass/volume] in Serum or Plasma 94 MG/DL 70 - 99 [facility] BUN 12 MG/DL 7 - 21 [facility] Creatinine [Mass/volume] in Serum or Plasma 0.8 MG/DL 0.7 - 1.5 [facility] BUN/CREAT 15 8 - 27 [facility] Protein [Mass/volume] in Serum or Plasma 7.0 G/DL 6.3 - 8.2 [facility] Albumin [Mass/volume] in Serum or Plasma 4.2 G/DL 3.9 - 5.0 [facility] Globulin [Mass/volume] in Serum by calculation 2.8 GM/DL 2.4 - 3.2 [facility] A/G RATIO 1.5 0.8 - 2.0 [facility] Calcium [Mass/volume] in Serum or Plasma 10.1 MG/DL 8.4 - 10.2 [facility] Bilirubin.total [Mass/volume] in Serum or Plasma <0.7 MG/DL 0.2 - 1.3 [facility] Alkaline phosphatase [Enzymatic activity/volume] in Serum or Plasma 62 U/L 38 - 126 [facility] Aspartate aminotransferase [Enzymatic activity/volume] in Serum or Plasma 14 U/L 5 - 40 [facility] Alanine aminotransferase [Enzymatic activity/volume] in Seru m or Plasma 13 U/L 7 - 56 [facility] Anion gap 3 in Serum or Plasma 7.0 mmol/L 8.0 - 16.0 L [facility] AGE 65 yrs [facility] al NON-AA GFR >60 mL/min [facility] ital AFR AMER GFR >60 [facility] Male GFR In terprentation 20-49 [...] >32 mL/min Normal ID Date Data Source [id number] 10/14/2020 12:39:00 AM T [facility] Name Value Range Interpretation Code Description Data Melanie rce(s) Supporting Document(s) TROPONIN T <0.01 NG/ML 0.00 - 0.10 [facility] TROPONIN T0.1 ng/ml Recommended as the c linical threshold value forTroponin T. ID Date Data Source [id number] 10/14/2020 12:22:00 AM [facility] Name Value Range Interpretation Code Description Data Melanie rce(s) Supporting Document(s) Prothrombin time (PT) 15.3 SECONDS 11.0 - 15.5 [facility] INR in Platelet poor plasma by Coagulation assay 1.15 0.93 - 1. 23 [facility] \\BLDo\\INR INTERPRETATION\\BLDx\\ Therapeutic range for Coumadin and related oral a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. - International Normalized Ratio (INR): 2.0 - 3.0 for Venous Thrombosis, Pulmonary Embolus, Tissue heart valves, Acute NV, Atrial Fibrillation, Valvular heart disease and recurrent Systemic Embolism. -International Normalized Ratio (INR): 2.5 - 3.5 for Mechanical Prosthetic valve. ID Date Data Source [id number] 10/14/2020 12:22:00 AM EDT [facility] Name Value Range Interpretation Code Description Data Melanie rce(s) Supporting Document(s) Lactate [Moles/volume] in Serum or Plasma 1.4 MMOL/L 0.2 - 2.2 [facility] ID Date Data Source [id number] 10/14/2020 12:22:00 AM EDT [facility] Name Value Range Interpretation Code Description Data Melanie rce(s) Supporting Document(s) pH of Serum or Plasma 7.37 7.32 - 7.43 [facility] pCO2 V 56.1 mm/HG 38.0 - 51.0 H [facility] pO2 V 39.7 mm/HG 30.0 - 55.0 [facility] Bicarbonate [Moles/volume] in Venous blood 31.5 meq/L 22.0 - 29.0 H [facility] TCO2 V 33.2 meq/L 22.0 - 29.0 H [facility] Base excess in Blood by calculation 4.9 -2.0 - 2.0 H [facility] O2 SAT V 73.4 % 40.0 - 85.0 [facility] ID Date Data Source [id number] 10/14/2020 12:10:00 AM EDT [facility] Name Value Range Interpretation Code Description Data Melanie rce(s) Supporting Document(s) CBC W/AUTOMATED DIFF [facility] COMPLETE BLOOD COUNT Leukocytes [#/volume] in Blood by Automated count 5.8 10^3/uL 4.2 - 1 1.0 [facility] Erythrocytes [#/volume] in Blood by Automated count 3.92 10^6/uL 4. 20 - 5.40 L [facility] Hemoglobin [Mass/volume] in Blood 11.9 g/dL 12.0 - 16.0 L [facility] Hematocrit [Volume Fraction] of Blood by Automated count 36.6 % 3 7.0 - 47.0 L [facility] Erythrocyte mean corpuscular volume [Entitic volume] by Auto mated count 93.4 fL 81.0 - 101 [facility] Erythrocyte mean corpuscular hemoglobin [Entitic mass] by Automated count 30.4 pg 27.0 - 34.0 [facility] Erythrocyte mean corpuscular hemoglobin concentration [Mass/volume] by Automated count 32.5 g/dL 31.0 - 36.0 [facility] Erythrocyte distribution width [Ratio] by Automated count 15.5 % 11.5 - 14.5 H [facility] Platelets [#/volume] in Blood by Automated count 204 10^3/uL 150 - 45 0 [facility] Platelet mean volume [Entitic volume] in Blood by Automated count 8.4 fL 7.4 - 10.4 [facility] Neutrophils/100 leukocytes in Blood by Automated count 43.7 % 37. 0 - 80.0 [facility] Lymphocytes/100 leukocytes in Blood by Manual count 45.6 % 25.0 - 40.0 H [facility] Monocytes/100 leukocytes in Blood by Automated count 6.2 % 3.0 - 8.0 [facility] Eosinophils/100 leukocytes in Blood by Automated count 4.0 % 0.0 - 7.0 [facility] Basophils/100 leukocytes in Blood by Automated count 0.3 % 0.0 - 2.5 [facility] %IG 0.2 % 0.0 - 0.0 [facility] %NRBC 0.0 % 0.0 - 0.0 [facility] al Neutrophils [#/volume] in Blood by Automated count 2.54 10^3/uL 2.00 - 6.90 [facility] Lymphocytes [#/volume] in Blood by Automated count 2.65 10^3/uL 0.60 - 3.40 [facility] Monocytes [#/volume] in Blood by Automated count 0.36 10^3/uL 0.00 - 0.90 [facility] Eosinophils [#/volume] in Blood by Automated count 0.23 10^3/uL 0.00 - 0.70 [facility] Basophils [#/volume] in Blood by Automated count 0.02 10^3/uL 0.00 - 0.20 [facility] #IG 0.01 10^3/uL 0.00 - 0.10 [facility] #NRBC 0.00 10^3/uL 0.00 - 0.00 [facility] MANUAL DIFF NOT INDICATED [facility] RBC MORPH NOT INDICATED [facility] ID Date Data Source [id number] 10/18/2020 02:37:00 PM EDT [facility] Name Value Range Interpretation Code Description Data Melanie rce(s) Supporting Document(s) CULTURE URINE [facility] _CULTURE URINE_$$[id number]$$[id number]$$621970$$274174$$957786$$189570$$949893$$656896$$421273$$ 723124$$520762$$201766$$502866$$118430$$205493$$352644$$739234$$959278$$170737$$ 579789$$249350$$600555$$839626$$272624$$890822$$[id number]$$[id number] -- Continued on next page --Patient: LETTIERE FABIANO Order: Page 2Culture: CULTURE URINE Status: Final ==== -- Continued on next page --Patient: LETTIERE FABIANO Order: Page 2Culture: CULTURE URINE Status: Prelim ===== -- Continued on next page --Patient: CANDIDO MARIO Order: [id number] Page 2Culture: CULTURE URINE Status: Prelim =====$$[id number]$$[id number] DATE/TIME: 10/18/2020 12:06Culture: CULTURE URINE Status: FinalIsolate 1 Enterococcus faecalis Flag: A . . . . . . .7Greater than 100,000 colony forming units per mL Previous result entered on 10/17/2020 14:24 ET Enterococcus faecalisSusceptibility results being verified. Final report to follow. Previous result entered on 10/17/2020 05:41 ET Microbiological testing to rule out the presence of possible pathogensis in progress.Urine Culture,Comprehensive: P6Oioofagtuogm faecalis Flag: APatient: CANDIDO MARIO Order: [id number] Page 3Culture: CULTURE URINE Status: Final ISOLATE 1 Enterococcus faecalis Isolate 1Antibiotic YONG IntUnits ug/mL ----Ciprofloxacin R R . . . . . .185-9Levofloxacin R R . . . . . .65509-1Stxheqbsnxybtm S S . . . . . .363-2Penicillin S S . . . . . .6932-8Tetracycline R R . . . . . .496- 0Vancomycin S S . . . . . .524-9P1 Test performed by: [facility] #: [id number] [address] [place] [address] [id number] [facility] [id number] Director : Ross Jeffers MD NPI #:[employer] Finisher : 10/17/20.0658.XMT.SENT REF 10/18/20.0700.XMT.SENT REF 10/18/20.1437.XMT.SENT REF ID Date Data Source [id number] 10/13/2020 11:45:00 PM EDT [facility] ([facility]) Name Value Range Interpretation Code Description Data Melanie rce(s) Supporting Document(s) Urinalysis Laboratory test result [facility] ([facility]) SOURCE: Clean Catch Source Laboratory test result [facility] ([facility]) SOURCE: Clean Catch Clarity Laboratory test result [facility] ([facility]) SOURCE: Clean Catch Color Laboratory test result [facility] ([facility]) SOURCE: Clean Catch Spec Alpha 1.010 1.001-1.030 [facility] ([facility]) SOURCE: Clean Catch Glucose Laboratory test result [facility] ([facility]) SOURCE: Clean Catch pH 7 5-9 [facility] SOURCE: Clean Catch Bilirubin Laboratory test result [facility] ([facility]) SOURCE: Clean Catch Ketone Laboratory test result [facility] ([facility]) SOURCE: Clean Catch Protein Laboratory test result [facility] ([facility]) SOURCE: Clean Catch Blood 25 Abnormal (applies to non-numeric res ults) [facility] ([facility]) SOURCE: Clean Catch Nitrite Laboratory test result [facility] ([facility]) SOURCE: Clean Catch Leuk Est 500 Abnormal (applies to non-numeric res ults) [facility] ([facility]) SOURCE: Clean Catch Urobilinogen Laboratory test result MEDE NT ([facility]) SOURCE: Clean Catch Microscopic Laboratory test result MEDEN T ([facility]) SOURCE: Clean Catch WBC Laboratory test result Abnormal (applies to non -numeric results) [facility] ([facility]) SOURCE: Clean Catch RBC Laboratory test result [facility] ([facility]) SOURCE: Clean Catch Epithelial Laboratory test result Abnormal (applies to non -numeric results) [facility] ([facility]) SOURCE: Clean Catch Bacteria Laboratory test result Abnormal (applies to non -numeric results) [facility] ([facility]) SOURCE: Clean Catch ID Date Data Source [id number] 10/13/2020 11:45:00 PM EDT [facility] ([facility]) Name Value Range Interpretation Code Description Data Melanie rce(s) Supporting Document(s) Culture Urine Laboratory test result MED ENT ([facility]) SOURCE: Clean Catch ID Date Data Source [id number] 10/14/2020 12:22:00 AM EDT [facility] Name Value Range Interpretation Code Description Data Melanie rce(s) Supporting Document(s) [facility] SOURCE R [facility] COLOR yellow NORMAL: Yellow [facility] CLARITY hazy NORMAL: Clear [facility] Specific gravity of Urine by Test strip 1.010 1.001 - 1.030 [facility] pH 7 5 - 9 [facility] Glucose [Mass/volume] in Urine by Test strip NORM NORMAL: Negat [facility] Bilirubin.total [Presence] in Urine by Test strip NEG NORMAL: Negative [facility] Ketones [Presence] in Urine by Test strip NEG NORMAL: Negative [facility] Protein [Mass/volume] in Urine by Test strip NEG NORMAL: Negat [facility] Nitrite [Presence] in Urine by Test strip NEG NORMAL: Negative [facility] BLOOD 25 NORMAL: Negative [facility] Leukocyte esterase [Presence] in Urine by Test strip 500 KANE L: Negative [facility] Urobilinogen [Mass/volume] in Urine by Test strip NOR less deanna n 1.0 mg/dL [facility] MICROSCOPIC See Below [facility] WBC 7 - 10 NORMAL: NONE SEEN A [facility] Erythrocytes [#/volume] in Urine by Test strip 1 - 3 NORMAL: NON E SEEN [facility] EPITHELIAL MODERATE NORMAL: NONE SEEN A [facility] Bacteria [Presence] in Urine sediment by Light microscopy 2+ MOD NORMAL: NONE SEEN A [facility] ID Date Data Source [id number] 09/16/2020 05:22:00 AM EST [facility] ([facility]) Name Value Range Interpretation Code Description Data Melanie rce(s) Supporting Document(s) Bedside Glucose 82 mg/dL 80-115 [facility] ([facility]) ID Date Data Source [id number] 09/16/2020 04:34:00 AM EST [facility] ([facility]) Name Value Range Interpretation Code Description Data Melanie rce(s) Supporting Document(s) Urine Culture Laboratory test result MED ENT ([facility]) <content>FULL REPORT IN LAB NOTES (eCW [...] FOR ESBL</content>
<content></content> ID Date Data Source [id number] 09/09/2020 12:43:00 AM EST [facility] ([facility]) Name Value Range Interpretation Code Description Data Melanie rce(s) Supporting Document(s) Laboratory test finding (navigational concept) 39.0 % 38.0-51.0 MEDTRES ([facility]) Laboratory test finding (navigational concept) 85 mg/dL 70-105 [facility] ([facility]) Laboratory test finding (navigational concept) 4.1 meq/L 3.5-5.1 [facility] ([facility]) Laboratory test finding (navigational concept) 142 meq/L 136-145 [facility] ([facility]) Laboratory test finding (navigational concept) 5.1 mg/dL 4.5-5.3 [facility] ([facility]) Laboratory test finding (navigational concept) 106 meq/L 98-109 [facility] ([facility]) Laboratory test finding (navigational concept) 18 mg/dL 8-26 [facility] ([facility]) Laboratory test finding (navigational concept) 29.0 MM/L 23.0-27.0 [facility] Laboratory test finding (navigational concept) 0.9 mg/dL 0.6-1.3 [facility] ([facility]) ID Date Data Source [id number] 09/09/2020 12:37:00 AM EST [facility] ([facility]) Name Value Range Interpretation Code Description Data Melanie rce(s) Supporting Document(s) Lipoprotein lipase [Enzymatic activity/volume] in Serum or P lasma 141 U/L 73-393 [facility] ([facility]) ID Date Data Source [id number] 09/09/2020 12:37:00 AM EST [facility] ([facility]) Name Value Range Interpretation Code Description Data Melanie rce(s) Supporting Document(s) Ast/Sgot 10 U/L 7-37 [facility]) Alt/SGPT 16 U/L 12-78 [facility]) Alkaline Phosphatase 60 U/L 45-117 [facility] ([facility]) Bilirubin,Total 0.2 mg/dL 0.2-1.0 [facility] ([facility]) Bilirubin,Direct Laboratory test result 0.0-0.2 [facility] ([facility]) Total Protein 7.2 GM/DL 6.4-8.2 [facility] ([facility]) Albumin 3.2 GM/DL 3.2-5.2 [facility] Albumin/Globulin Ratio 0.8 1.2-2.2 [facility] ([facility]) ID Date Data Source [id number] 09/09/2020 12:37:00 AM EST [facility] ([facility]) Name Value Range Interpretation Code Description Data Melanie rce(s) Supporting Document(s) White Blood Count 5.2 10 4.0-10.0 [facility] ([facility]) Hemoglobin 11.7 g/dL 12.0-15.5 [facility] Red Blood Count 4.06 10 4.00-5.40 [facility] ([facility]) Hematocrit 38.6 % 36.0-47.0 [facility]) Mean Corpuscular Volume 95.1 fl 80.0-96.0 [facility] ([facility]) Mean Corpuscular Hemoglobin 28.8 pg 27.0-33.0 DE DENT ([facility]) Mean Corpuscular HGB Conc 30.3 g/dL 32.0-36.5 MEDE NT ([facility]) Platelet Count, Automated 180 10 150-450 MEDE NT ([facility]) Red Cell Distribution Width 14.7 % 11.5-14.5 [facility] ([facility]) Neutrophils % 50.9 % 36.0-66.0 [facility] ([facility]) Lymph % 37.5 % 24.0-44.0 [facility]) [place] % 7.9 % 2.0-8.0 [facility]) Eos % 3.3 % 0.0-3.0 [facility]) Baso % 0.2 % 0.0-1.0 [facility]) Immature Granulocyte % 0.2 % 0-3.0 [facility] ([facility]) Nucleated Red Blood Cell % 0.0 % 0-0 MED ENT ([facility]) Neutrophils # 2.6 10 1.5-8.5 [facility] ([facility]) Lymph # 1.9 10 1.5-5.0 [facility]) [place] # 0.4 10 0.0-0.8 [facility]) Eos # 0.2 10 0.0-0.5 [facility]) Baso # 0.0 10 0.0-0.2 [facility]) ID Date Data Source [id number] 08/12/2020 08:01:00 AM EST [facility] ([facility]) Name Value Range Interpretation Code Description Data Melanie rce(s) Supporting Document(s) Reflex Urine Culture Laboratory test result [facility] ([facility]) <content>FULL REPORT IN LAB NOTES (eCW [...] FOR ESBL</content>
<content></content> ID Date Data Source [id number] 08/12/2020 08:01:00 AM EST [facility] ([facility]) Name Value Range Interpretation Code Description Data Melanie rce(s) Supporting Document(s) Color, Urine RFX Laboratory test result [facility] ([facility]) Appearance, Urine RFX Laboratory test result [facility] ([facility]) PH,Urine RFX 7.0 units 5.0-9.0 [facility] ([facility]) Specific Alpha Ur Auto RFX 1.008 1.002-1.035 [facility] ([facility]) Protein, Urine Auto RFX Laboratory test result [facility] Ketone, Urine Auto RFX Laboratory test result [...] 0-3 [facility] Bacteria, Urine Auto RFX Laboratory test result [facility] ([facility]) RBC, Urine Auto RFX 9 /HPF 0-3 [facility] ([facility]) Squam Epithelial Cell Ur Aurfx 5 /HPF 0-6 [facility] ([facility]) Hyaline Cast, Urine Auto RFX 0 /LPF 0-1 M EDENT ([facility]) Mucus, Urine RFX Laboratory test result [facility] ([facility]) Amorphous Sediment RFX Laboratory test result [facility] ([facility]) ID Date Data Source [id number] 08/12/2020 07:52:00 AM EST [facility] ([facility]) Name Value Range Interpretation Code Description Data Melanie rce(s) Supporting Document(s) Gats Culture (Neg Strep SCR) Laboratory test result [facility] ([facility]) FULL REPORT IN LAB NOTES (eCW and Medent ). NEGATIVE FOR STREP PYOGENES (GROUP A) ID Date Data Source [id number] 08/12/2020 06:51:00 AM EST [facility] ([facility]) Name Value Range Interpretation Code Description Data Melanie rce(s) Supporting Document(s) Influenza A Amplification Laboratory test result [facility] ([facility]) Negative results do not preclude influen za or RSV virus infection and should not be used as the sole basis for treatment or other patient management decisions. RSV Amplification Laboratory test result [facility] ([facility]) Negative results do not preclude influen za or RSV virus infection and should not be used as the sole basis for treatment or other patient management decisions. Influenza B Amplification Laboratory test result [facility] ([facility]) Negative results do not preclude influen za or RSV virus infection and should not be used as the sole basis for treatment or other patient management decisions. Laboratory test finding (navigational concept) Laboratory test result [facility] ([facility]) A false negative result may occur [...] pathogens. DISCLAIMER: Testing was performed using the [employer] SARS-CoV-2 test. This test was developed and its performance characteristics determined by [employer]. This test has not been FDA cleared [...] or revoked sooner. ID Date Data Source [id number] 08/12/2020 06:51:00 AM EST [facility] Name Value Range Interpretation Code Description Data Melanie rce(s) Supporting Document(s) SARS coronavirus 2 RNA [Presence] in Res piratory specimen by MILAGROS with probe detection NEGATIVE [facility] This lab was ordered by [facility] a nd reported by [facility]. ID Date Data Source [id number] 07/22/2020 04:54:00 AM EST [facility] ([facility]) Name Value Range Interpretation Code Description [...] 1 S</content>
<content></content> ID Date Data Source [id number] 07/22/2020 04:54:00 AM [facility] Name Value Range Interpretation Code Description Data Melanie rce(s) Supporting Document(s) Color, Urine RFX Laboratory test result [facility] Appearance, Urine RFX Laboratory test result [facility] PH,Urine RFX 7.0 units 5.0-9.0 [facility] Specific Alpha Ur Auto RFX 1.005 1.002-1.035 [facility] Protein, Urine Auto RFX Laboratory test result [facility] Glucose, Urine (Ua) Auto RFX Laboratory test result [facility] Urobilinogen, Urine Auto RFX 0.2 mg/dL 0.0-2.0 [facility] Ketone, Urine Auto RFX Laboratory test result [facility] Nitrite, Urine Auto RFX Laboratory test result [facility] Bilirubin, Urine Auto RFX Laboratory test result [facility] Leukocyte Esterase Ur Auto RFX Laboratory test result [facility] ([facility]) Blood, Urine Blood RFX Laboratory test result [facility] ([facility]) WBC, Urine Auto RFX 11 /HPF 0-3 [facility] ([facility]) RBC, Urine Auto RFX 1 /HPF 0-3 [facility] ([facility]) Squam Epithelial Cell Ur Aurfx 0 /HPF 0-6 [facility] ([facility]) Bacteria, Urine Auto RFX Laboratory test result [facility] ([facility]) Hyaline Cast, Urine Auto RFX 0 /LPF 0-1 M EDENT ([facility]) Mucus, Urine RFX Laboratory test result [facility] ([facility]) ID Date Data Source [id number] 07/01/2020 06:35:00 AM EST [facility] 1 OrderSheet [facility] Emergency Department [address] [place] [address] Phone #: ext- [phone] 07/01/2020 06:35 Patient: [...] rce(s) Supporting Document(s) ID Date Data Source [id number] 07/01/2020 06:35:00 AM EST [facility] 1 Medication Reconciliation Report [facility] Emergency Department [address] [place] [address] Phone #: ext- [phone] 07/01/2020 06:35 Patient: [...] the Emergency Department: 2 Medication Reconciliation Report [facility] Emergency Department [address] [place] [address] Phone #: ext [phone] 07/01/2020 06:35 Patient: FABIANO RAMIREZ Sex: F : 1955 Age: 64yNone.The following Medications were prescribed to the patient:ciprofloxacin 250 mg tablet Take 1 tablet twice a day for 7 days -- Dispense 14 tablet. Refills: 0.Substitution permitted.Pharmacy - [facility] - [address] ; [place] [address]. . -- Xavier Robertson Physician Name Value Range Interpretation Code Description Data [facility](s) Supporting Document(s) ID Date Data Source [id number] 07/01/2020 06:35:00 AM [place] [address] Medication Administration Record [facility] Emergency Department [address] [place] [address] Phone #: ext- [phone] 07/01/2020 06:35 Patient: FABIANO RAMIREZ Sex: F : 1955 Age: 64yWeight: 76.2 kgHeight/Length: 59 inBMI: 34ALLERGIES: Darvacet, Demerol, MicrodentinDate/Time Medication Administered Medication Ordered Name Value Range Interpretation Code Description Data [facility] Supporting Document(s) ID Date Data Source [id number] 07/01/2020 06:35:00 AM [facility] 1 General Instructions [facility] Emergency Department [address] [place] [address] Phone #: ext- [phone] 07/01/2020 06:35 Patient: [...] Dispense 14 tablet. Refills: 0.Substitution permitted.Pharmacy - [facility] - [address] ; [place] [address]. .Follow-up:Follow up with your healthcare provider in four days. Call for an appointment.Understanding of the discharge instructions v erbalized by patient. ADDITIONAL INFORMATION 2 General Instructions [facility] Emergency Department [address] [place] [address] Phone #: ext- [phone] 07/01/2020 06:35 Patient: [...] or burning when urinating 3 General Instructions [facility] Emergency Department [address] [place] [address] Phone #: ext- [phone] 07/01/2020 06:35 Patient: [...] Fluid loss (dehydration) Constipation Having sex 4 [facility] Emergency Department [address] [place] [address] Phone #: ext- [phone] 07/01/2020 06:35 Patient: [...] flush out your bladder. 5 General Instructions [facility] Emergency Department [address] [place] [address] Phone #: [phone]- [phone] 07/01/2020 06:35 Patient: FABIANO RAMIREZ Sex: F [...] if the results will affect your treatment.Call [phone] if any of the following occur: [...] in the outer vaginal area (labia) [employer] [address] [place] [address], [place] [address]. All rights reserved. This information is not intended as asubstitute for professional medical care. Always follow your healthcare professional's instructions. You have been given the following additional information: Bladder Infection, Female (Adult) 6 General Instructions [facility] Emergency Department [address] [place] [address] Phone #: ext- [phone] 07/01/2020 06:35 Patient: FABIANO RAMIREZ Sex: F : 1955 Age: 64y(Electronically signed by Xavier Robertson, Physician 07/01/2020 08:41) Name Value Range Interpretation Code Description Data Melanie rce(s) Supporting Document(s) ID Date Data Source [id number] 07/01/2020 06:35:00 AM EST [facility] 1 Clinical Report - Nurses [facility] Emergency Department [address] [place] [address] Phone #: ext- [phone] 07/01/2020 06:35 Patient: FABIANO RAMIREZ Sex: F : 1955 Age: 64yTRIAGEArrived by EMS. Historian: patient.Triage time: 06:35 07/01/2020. Acuity: LEVEL 4.Chief Complaint: PAINFUL URINATION.Onset. (2 days). 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 No [...] Clements R.N.PROBLEMS: 2 Clinical Report - Nurses [facility] Emergency Department [address] [place] [address] Phone #: ext- [phone] 07/01/2020 06:35 Patient: [...] 07/01/20 Xavier Robertson, Physician.PHYSICAL ASSESSMENTTo room via CleanBee[employer]ye r.GENERAL / NEURO / PSYCH: Alert. Oriented X 4. Appears anxious.HEENT: Mucous membranes are pink.RESPIRATORY: Respirations not labored.CVS: Capillary refill less than 2 seconds.GI / : No emesis noted. Pain with urination. She has had frequency of urination. Urgency ofurination. Patient is incontinent of urine. 3 Clinical Report - Nurses [facility] Emergency Department [address] [place] [address] Phone #: ext- [phone] 07/01/2020 06:35 [id number] Sex: [facility] : 1955 Age: 64y SKIN: [...] rce(s) Supporting Document(s) ID Date Data Source [id number] 07/01/2020 06:35:00 AM [facility] 1 Clinical Report - Physicians/[facility] Emergency Department [address] [place] [address] Phone #: ext- [phone] 07/01/2020 06:35 Patient: [...] Appendectomy. 2 Clinical Report - Physicians/Mid Levels [facility] Emergency Department [address] [place] [address] Phone #: ext- [phone] 07/01/2020 06:35 [id number] Sex: F : 1955 Age: 64y Hernia [...] turgor. 3 Clinical Report - Physicians/Mid Levels [facility] Emergency Department [address] [place] [address] Phone #: ext- [phone] 07/01/2020 06:35 Patient: [...] pain.INSTRUCTIONS 4 Clinical Report - Physicians/Mid Levels [facility] Emergency Department [address] [place] [address] Phone #: ext- [phone] 07/01/2020 06:35 Patient: [...] tablet. Refills: 0. Substitution permitted. Pharmacy - [facility] - [address] [place] [address]. . Follow-up: Follow up with your healthcare provider in four days. Call for an appointment. Understanding of the discharge instructions verbalized by patient.(Electronically signed by Xavier Robertson, Physician 07/01/2020 08:41) Name Value Range Interpretation Code Description Data Melanie rce(s) Supporting Document(s) ID Date Data Source [id number] 07/01/2020 06:50:00 AM EST [facility] ([facility]) Name Value Range Interpretation Code Description Data Melanie rce(s) Supporting Document(s) Culture Urine Laboratory test result MED TRES ([facility]) <content>_CULTURE URINE_</content>
<content>^$960335</content>
<content>^^187607</content>
<content>$$477979</content>
<content>^^791505</content>
<content>$$ 100703</content>
<content>$$533887</content>
<content>$$840358</content>
<content>$$ 078622</content>
<content>$$427895</content>
<content>$$651195</content>
<content> $$454492</content>
<content>$$570305</content>
<content>$$163820</conten t>
<content>$$215162</content>
<content>$$544755</content>
<content> $$646884</content>
<content>$$741581</content>
<content>$$531823</content>
<content>$$83463 0</content>
<content>$$246234</content>
<content>$$624367</content>
<content>$$954995</content>
<content>$$809017</content>
<content>$$266354</content>
<content>$$ 071750</content>
<content>$$663300</content>
<content>$$910304</content>
<content> ^^679437</content>
<content>$$427633</content>
<content>$$394339</conten t>
<content>$$816798</content>
<content></content>
<content>-- Continued on next page --</content>
<content>Patient: CANDIDO MARIO Order: [id number] Page 2</content>
<content>Culture: CULTURE URINE Status: Final</laron nt>
<content> < /content>
<content></content>
<content></content>
<content>-- Continued on next page --</content>
<content>Patient: CANDIDO MARIO Order: [id number] Page 2</content>
<content>Culture: CULTURE URINE Status: Prelim</content>
<content> < /content>
<content></content>
<content></content>
<content>-- Continued on next page --</content>
<content>Patient: CANDIDO FABIANO Order: [id number] Page 2</content>
<content>Culture: CULTURE URINE Status: Prelim</content>
<content> < /content>
<content></content>
<content>$$809573</content>
<content>$ $888213</content>
<content></content>
<content>REPORTED DATE/TIME: 07/05/2020 11:06</content>
<content>Culture: CULTURE [...]
<content></content>
<content></content>
<content> Patient: CANDIDO MARIO Order: [id number] Page 3</content>
<content>Culture: CULTURE URINE Status: Final</content>
[...] S S . . . . . .01217-8</content>
<content>Gentamicin S S . . . . . .267-5</content>
<content>Imipenem S S . . . . . .279-0</content>
<content>Levofloxacin S S . . . . . .36043-6</content>
<content>Meropenem S S . . . . . .6652-2</content>
<content>Nitrofurantoin S S . . . . . .363-2</content>
<content>Piperacillin/Tazobactam S S . . . . . .412-7</content>
<content>Tetracycline S S . . . . . .496-0</content>
<content>Tobramycin S S . . . . . .508-2</content>
<content>Trimethoprim/Sulfa S S . . . . . .516-5</content>
<content></content>
<content>P1 Test performed by: [facility] Janel HURTADO #: [id number]</content>
<content>[address]</content>
<content>[id number]</content>
<content>Janel [place] [phone]</content>
<content>Apparel Pattern Maker : Ross Jeffers MD NPI #:</content>
<content>[employer] Finisher :</content>
<content>07/03/20.1551.XMT.SENT REF</content>
<content>07/04/20.1209.XMT.SENT REF</content>
<content>07/05/20.1201.XMT.SENT REF</content>
<content></content>
<content></content> ID Date Data Source [id number] 07/01/2020 06:50:00 AM EST [facility] ([facility]) Name Value Range Interpretation Code Description Data Melanie rce(s) Supporting Document(s) Urinalysis Laboratory test result [facility]) URINALYSIS Source [facility] SOURCE: Clean Catch Color Laboratory test result [facility] ([facility]) SOURCE: Clean Catch Clarity Laboratory test result [facility] ([facility]) SOURCE: Clean Catch Spec Alpha 1.010 1.001-1.030 [facility] SOURCE: Clean Catch pH 7 5-9 [facility] SOURCE: Clean Catch Glucose Laboratory test result [facility] ([facility]) SOURCE: Clean Catch Bilirubin Laboratory test result [facility] ([facility]) SOURCE: Clean Catch Ketone Laboratory test result [facility] ([facility]) SOURCE: Clean Catch Protein Laboratory test result [facility] ([facility]) SOURCE: Clean Catch Nitrite Laboratory test result [facility] SOURCE: Clean Catch Blood 150 Abnormal (applies to non-numeric res ults) [facility] ([facility]) SOURCE: Clean Catch Leuk Est 500 Abnormal (applies to non-numeric res ults) [facility] SOURCE: Clean Catch Urobilinogen Laboratory test result [facility] ([facility]) SOURCE: Clean Catch Microscopic Laboratory test result [facility] ([facility]) SOURCE: Clean Catch WBC Laboratory test result Abnormal (applies to non -numeric results) [facility] ([facility]) SOURCE: Clean Catch RBC Laboratory test result Abnormal (applies to non -numeric results) [facility] ([facility]) SOURCE: Clean Catch Epithelial Laboratory test result Abnormal (applies to non -numeric results) [facility] ([facility]) SOURCE: Clean Catch Bacteria Laboratory test result Abnormal (applies to non -numeric results) [facility] ([facility]) SOURCE: Clean Catch ID Date Data Source [id number] 07/05/2020 12:01:00 PM EST [facility] Name Value Range Interpretation Code Description Data Melanie rce(s) Supporting Document(s) CULTURE URINE [facility] _CULTURE URINE_$$[id number]$$[id number]$$[id number]$$910420$$607051$$791551$$882508$$708301$$050330$$ 325480$$994042$$733984$$562252$$392870$$514247$$704553$$232737$$162565$$211232$$ 861877$$708132$$378934$$934989$$821244$$980168$$741103$$[id number] -- Continued on next page --Patient: LETTIERE FABIANO Order: [id number] Page 2Culture: CULTURE URINE Status: Final ==== -- Continued on next page --Patient: LETTIERE FABIANO Order: [id number] Page 2Culture: CULTURE URINE Status: Prelim ===== -- Continued on next page --Patient: LETTIERE FABIANO Order: [id number] Page 2Culture: CULTURE URINE Status: Prelim =====$$[id number]$$[id number] DATE/TIME: 07/05/2020 11:06Culture: CULTURE URINE Status: FinalIsolate [...] presence of possible pathogensis in progress.Urine Culture,Comprehensive: I0Ryhepxlpclm coli Flag: APatient: CANDIDO MARIO Order: [id number] Page 3Culture: CULTURE URINE Status: Final ====ISOLATE [...] S S . . . . . .50318-3Qclppszncn S S . . . . . .267-5Imipenem S S . . . . . .279- 0Levofloxacin S S . . . . . .55737-2Hfdclpeoz S S . . . . . .6652-2Nitrofurantoin S S . . . . . .363-2Piperacillin/Tazobactam S S . . . . . .412-7Tetracycline S S . . . . . .496-0Tobramycin S S . . . . . .508-2Trimethoprim/Sulfa S S . . . . . .516-5P1 [facility]: [facility] #: [id number] [address] [id number] [facility] [id number] Director : Ross Jeffers MD NPI #:[employer] Finisher : 07/03/20.1551.XMT.SENT REF 07/04/20.1209.XMT.SENT REF 07/05/20.1201.XMT.SENT REF ID Date Data Source [id number] 07/01/2020 07:08:00 AM EST [facility] Name Value Range Interpretation Code Description Data Melanie rce(s) Supporting Document(s) [facility] COL[facility] yellow NORMAL: Yellow [facility] CLARITY clear NORMAL: Clear [facility] Specific gravity of Urine by Test strip 1.010 1.001 - 1.030 [facility] pH 7 5 - 9 [facility] Glucose [Mass/volume] in Urine by Test strip NORM NORMAL: Negat [facility] Bilirubin.total [Presence] in Urine by Test strip NEG NORMAL: Negative [facility] Ketones [Presence] in Urine by Test strip NEG NORMAL: Negative [facility] Protein [Mass/volume] in Urine by Test strip NEG NORMAL: Negat [facility] Nitrite [Presence] in Urine by Test strip POS NORMAL: Negative [facility] BLOOD 150 NORMAL: Negative [facility] Leukocyte esterase [Presence] in Urine by Test strip 500 KANE L: Negative [facility] Urobilinogen [Mass/volume] in Urine by Test strip NOR less deanna n 1.0 mg/dL [facility] MICROSCOPIC See Below [facility] WBC 5 - 7 NORMAL: NONE SEEN A [facility] Erythrocytes [#/volume] in Urine by Test strip 7 - 10 NORMAL: NON E SEEN A [facility] EPITHELIAL MODERATE NORMAL: NONE SEEN A [facility] Bacteria [Presence] in Urine sediment by Light microscopy 3+ LARGE NORMAL: NONE SEEN A [facility] ID Date Data Source [id number] 06/08/2020 02:10:00 PM EST [facility] ([facility]) Name Value Range Interpretation Code Description Data Melanie rce(s) Supporting Document(s) Erythrocytes [#/volume] in Blood by Automated count 4.16 x10*6/UL 4.2 0-6.30 [facility] ([facility]) Leukocytes [#/volume] in Blood by Automated count 5.4 x10*3/UL 4.1-10 .9 [facility] ([facility]) Hemoglobin [Mass/volume] in Blood 12.5 g/dL 12.0-18.0 [facility] ([facility]) Hematocrit [Volume Fraction] of Blood by Automated count 37.8 % 3 7.0-51.0 [facility] ([facility]) MCHC 33.0 g/dL 31.0-38.0 [facility] MCH 30.1 pg 26.0-32.0 [facility] MCV 91.0 fL 80.0-97.0 [facility] Platelets [#/volume] in Blood by Automated count 219 x10*3/UL 140-440 [facility] ([facility]) Erythrocyte distribution width [Ratio] by Automated count 14.4 % 11.6-13.7 [facility] ([facility]) MPV 6.9 FL 7.8-11.0 [facility] Lymph % 27.9 % 10.0-58.5 [facility] Neut % 65.6 % 37.0-92.0 [facility] Mid % 6.5 % 1.7-9.3 [facility] Neut # 3.5 x10*3/UL 2.0-7.8 [facility] ([facility]) Lymph # 1.5 x10*3/UL 0.6-4.1 [facility] ([facility]) Mid # 0.4 x10*3/UL 0.1-0.6 [facility] ([facility]) ID Date Data Source [id number] 05/04/2020 01:59:00 PM EDT [facility] ([facility]) Name Value Range Interpretation Code Description Data Mealnie rce(s) Supporting Document(s) Triglyceride [Mass/volume] in Serum or Plasma 186 mg/dL 30-150 [facility] ([facility]) Cholesterol [Mass/volume] in Serum or Plasma 180 mg/dL 131-200 [facility] ([facility]) Cholesterol in HDL [Mass/volume] in Serum or Plasma 55 mg/dL 35-60 [facility] ([facility]) Cholesterol in LDL [Mass/volume] in Serum or Plasma by calcu lation 88 CALC 50-159 [facility] ([facility]) ID Date Data Source [id number] 05/04/2020 01:59:00 PM EDT [facility] ([facility]) Name Value Range Interpretation Code Description Data Melanie rce(s) Supporting Document(s) Glucose [Mass/volume] in Serum or Plasma 86 mg/dL 74-99 [facility] ([facility]) 100-125 mg/dL PRE-DIABETES/FASTING >126 mg/dL DIABETES/FASTING Urea nitrogen [Mass/volume] in Serum or Plasma 14 mg/dL 7-18 [facility] ([facility]) Creatinine 1.0 mg/dL 0.6-1.3 [facility] Sodium [Moles/volume] in Serum or Plasma 144 meq/L 136-145 [facility] ([facility]) Chloride [Moles/volume] in Serum or Plasma 105 meq/L 98-107 [facility] ([facility]) Potassium [Moles/volume] in Serum or Plasma 4.0 meq/L 3.5-5.1 [facility] ([facility]) Calcium [Mass/volume] in Serum or Plasma 9.9 mg/dL 8.5-10.1 [facility] ([facility]) Carbon dioxide, total [Moles/volume] in Serum or Plasma 36 meq/L 21 -32 [facility] ([facility]) Total Bilirubin 0.2 mg/dL 0.2-1.0 [facility] ([facility]) Alkaline phosphatase isoenzyme [Units/volume] in Serum or Pl asma 55 mg/dL 46-116 [facility] ([facility]) Aspartate aminotransferase [Enzymatic activity/volume] in Serum or Plasma 23 U/L 15-37 [facility] ([facility] ) Alanine aminotransferase [Enzymatic activity/volume] in Seru m or Plasma 26 U/L 12-78 [facility] ([facility]) Albumin [Mass/volume] in Serum or Plasma 3.7 g/dL 3.4-5.0 [facility] ([facility]) Proteinase 3 Ab [Units/volume] in Serum 7.7 g/dL 6.4-8.2 [facility] ([facility]) Glomerular filtration rate/1.73 sq M pre dicted among blacks [Volume Rate/Area] in Serum or Plasma by Creatinine-based formula (MDRD) Laboratory test result [facility] ([facility]) <content>CHRONIC KIDNEY DISEASE STAGING PER NKF</content>
<content></content>
<content>STAGE I & II GFR >= 60 NORMAL TO MILDLY DECREASED</content>
<content>STAGE III GFR 30-59 MODERATELY DECREASED</content>
<content>STAGE IV GFR 15-29 SEVERELY DECREASED</content>
<content>STAGE V GFR <15 VERY LITTLE GFR LEFT</content>
<content>ESRD GFR <15 ON PHYTOCHEMISTRY PROFESSOR</content>
<content></content> A/G Ratio 0.93 CALC 1.00-1.90 [facility] Glomerular filtration rate/1.73 sq M pre dicted among non-blacks [Volume Rate/Area] in Serum or Plasma by Creatinine-based formula (MDRD) 56 mL/min [facility] ([facility]) ID Date Data Source [id number] 05/04/2020 01:59:00 PM EDT [facility] ([facility]) Name Value Range Interpretation Code Description Data Melanie rce(s) Supporting Document(s) Leukocytes [#/volume] in Blood by Automated count 5.8 x10*3/UL 4.1-10 .9 [facility] ([facility]) Hemoglobin [Mass/volume] in Blood 12.1 g/dL 12.0-18.0 [facility] ([facility]) Erythrocytes [#/volume] in Blood by Automated count 4.06 x10*6/UL 4.2 0-6.30 [facility] ([facility]) MCV 91.6 fL 80.0-97.0 [facility] Hematocrit [Volume Fraction] of Blood by Automated count 37.2 % 3 7.0-51.0 [facility] ([facility]) MCHC 32.6 g/dL 31.0-38.0 [facility] MCH 29.8 pg 26.0-32.0 [facility] Erythrocyte distribution width [Ratio] by Automated count 14.4 % 11.6-13.7 [facility] ([facility]) Platelets [#/volume] in Blood by Automated count 240 x10*3/UL 140-440 [facility] ([facility]) MPV 7.1 FL 7.8-11.0 [facility] Lymph % 26.4 % 10.0-58.5 [facility] Mid % 7.1 % 1.7-9.3 [facility] Neut % 66.5 % 37.0-92.0 [facility] Neut # 3.8 x10*3/UL 2.0-7.8 [facility] ([facility]) Mid # 0.5 x10*3/UL 0.1-0.6 [facility] ([facility]) Lymph # 1.5 x10*3/UL 0.6-4.1 [facility] ([facility]) Procedure Social History No Information Vital Signs ID Date Data Source UNK Name Value Range Interpretation Code Description Data Source(s) Systolic blood pressure 134 mm[Hg] 134 mm[Hg] [facility]) Diastolic blood pressure 84 mm[Hg] 84 mm[Hg] [facility] ([facility]) Heart rate 87 /min 87 /min [facility] ([facility]) Oxygen saturation in Arterial blood by Pulse oximetry 93 % 93 % [facility] ([facility]) Body temperature 97.0 [degF] 97.0 [degF] [facility] ([facility]) Body height 59 [in_i] 59 [in_i] [facility] ([facility]) 4'11" Body weight 152.00 [lb_av] 152.00 [lb_av] [facility] Body mass index (BMI) [Ratio] 30.7 kg/m2 30.7 k g/m2 [facility] ([facility]) [place] body weight 100 [lb_av] 100 [lb_av] [facility] Body weight 68.947 kg 68.947 kg [facility] ([facility]) Body surface area Derived from formula 1.64 m2 1.64 m2 [facility] ([facility]) Systolic blood pressure 122 mm[Hg] 122 mm[Hg] [facility]) Diastolic blood pressure 80 mm[Hg] 80 mm[Hg] [facility] ([facility]) Heart rate 102 /min 102 /min [facility] ([facility]) Body height 59 [in_i] 59 [in_i] [facility] ([facility]) 4'11" Body weight 157.00 [lb_av] 157.00 [lb_av] [facility] Oxygen saturation in Arterial blood by Pulse oximetry 97 % 97 % [facility] ([facility]) Body mass index (BMI) [Ratio] 31.7 kg/m2 31.7 k g/m2 [facility] ([facility]) Body mass index (BMI) [Ratio] 31.5 kg/m2 31.5 k g/m2 [facility] ([facility]) Heart rate 94 /min 94 /min [facility]) Body height 59 [in_i] 59 [in_i] [facility] ([facility]) 4'11" Body weight 156.00 [lb_av] 156.00 [lb_av] [facility] ([facility]) Oxygen saturation in Arterial blood by Pulse oximetry 96 % 96 % [facility] ([facility]) Systolic blood pressure 116 mm[Hg] 116 mm[Hg] [facility] ([facility]) Diastolic blood pressure 72 mm[Hg] 72 mm[Hg] [facility] ([facility]) Body mass index (BMI) [Ratio] 31.3 kg/m2 31.3 k g/m2 [facility] ([facility]) Heart rate 94 /min 94 /min [facility]) Body height 59 [in_i] 59 [in_i] [facility] ([facility]) 4'11" Body weight 155.00 [lb_av] 155.00 [lb_av] [facility] ([facility]) Oxygen saturation in Arterial blood by Pulse oximetry 96 % 96 % [facility] ([facility])
--- NOTE | 2021-06-30 08:10 | REP ---
INDICATION: constipation. COMPARISON: KUB, 03/03/2021. TECHNIQUE: Two AP supine images of the abdomen were obtained. FINDINGS: There is stool throughout the colon. The bowel gas pattern is otherwise unremarkable. There is no abnormal bowel dilatation or free intraperitoneal air. There is severe dextroscoliosis of the lumbar spine. IMPRESSION: Moderate constipation. <Electronically signed by Yazan Hung > 06/30/21 1110
[2021-06-30 08:45] LABS: BILIRUBIN, URINE MANUAL OBSCURED (NEGATIVE); GLUCOSE, URINE (UA) MANUAL NEGATIVE (NEGATIVE); KETONE, URINE MANUAL OBSCURED mg/dL (NEGATIVE); UROBILINOGEN, URINE MANUAL OBSCURED mg/dl (NORMAL)
[2021-06-30 09:08] LABS: BACTERIA, URINE MOD AMOUNT; HYALINE CAST, URINE NONE SEEN /lpf (0-1); RBC, URINE TNTC /hpf (0-3); RENAL EPITHELIAL CELLS, URINE SMALL AMOUNT /hpf; SQUAMOUS EPITHELIAL CELL URINE MOD AMOUNT /hpf (SMALL AMT); URIC ACID CRYSTALS, URINE SMALL AMOUNT /hpf
[2021-06-30] MEDS ORDERED: SENO8.6T10 PO (09:17)
[2021-06-30 09:40] VITALS: BP 109/67
== END 2021-06-30 09:41 | disposition home or self-care (01) ==
LOC: M ED 22:26
DX: K59.00 Constipation, unspecified (principal); N31.9 Neuromuscular dysfunction of bladder, unspecified; F31.9 Bipolar disorder, unspecified; G43.909 Migraine, unspecified, not intractable, without status migrainosus; Z87.440 Personal history of urinary (tract) infections; Z86.718 Personal history of other venous thrombosis and embolism; Z79.01 Long term (current) use of a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; Z79.899 Other long term (current) drug therapy; Z88.0 Allergy status to penicillin; Z88.8 Allergy status to other drugs, medicaments and biological substances; Z91.040 Latex allergy status

== ENCOUNTER 2021-07-01 12:57 | Emergency (ER) | payer MEDICARE, MEDICAID ==
[~2021-07-01] VITALS: Ht 149.9 cm; Wt 77.3 kg
[~2021-07-01 12:57] MED LIST changes: +PROM25TA12 PO
[2021-07-01 13:03] VITALS: BP 138/63
--- OUTSIDE RECORDS SUMMARY | 2021-07-01 13:07 | CCD ---
Author Author [facility] Organization [facility] Address Unknown Phone Unavailable Care Team Providers Care Human Resources Partner Name Role Phone MARK, F XAVIER DO [...] XAVIER DO Unavailable Unavailable Hospital Lab, Area [place] Unavailable Unavailable Serge Echeverria MD Unavailable Unavailable [...] is protected by Article 27-F of the [facility] Public Health law. If you continue you may have access to information: Regarding HIV / AIDS; Provided by facilities licensed or operated by the [facility] Office of Mental Health; or Provided by the [facility] Office for People With Developmental Disabilities. If such information is present, then the following [facility] mandated warning applies: This information has [...] law may result in a fine or snf sentence or both. A general authorization for the release of medical or other information is NOT sufficient authorization for further disc losure. Family History Family Member Name Family Member Gender Family Member Status Date o f Status Description Data Source(s) Unknown Male Problem [facility] ([facility] () Unknown Female Problem [facility] ([facility]) Unknown Female Problem [facility] ([facility]) Unknown Female Problem [facility] ([facility]) Encounters Encounter Providers Location Date Indications Data Source(s ) Emergency Attender: Serge Echeverria MDConsultant: Daisy CHENEY 03/04/2021 11:38:00 AM EDT - 03/04/2021 02:32:00 PM EDT [facility] Patient discharged. Emergency Attender: Serge Echeverria MDConsultant: Daisy RODRIGUEZ ANP 02/17/2021 07:58:00 AM EDT - 02/17/2021 10:25:00 AM EDT [facility] Patient discharged. Emergency Attender: XAVIER ROBERTSON DOConsultant: Daisy CHENEY 12/10/2020 05:37:00 AM EDT - 12/10/2020 07:15:00 AM EDT [facility] Patient discharged. Emergency Attender: KAREN SAUCEDO MDConsultant: Susan RODRIGUEZ ANP 12/01/2020 12:20:00 PM EDT - 12/01/2020 04:50:00 PM EDT [facility] Patient discharged. Outpatient Attender: [facility] 10/14/2020 12:0 4:00 AM EDT [facility] Emergency Attender: KAREN SAUCEDO MDConsultant: Susan RODRIGUEZ ANP 10/13/2020 11:01:00 PM EDT - 10/14/2020 04:24:00 AM EDT [facility] Patient discharged. Outpatient Attender: Daisy Craig 05/2021 01:40:00 PM EST [facility] ([facility] ) Emergency Attender: HENRI BOYLE MDConsultant: Daisy TREVINO ANP 07/01/2020 06:35:00 AM EST - 07/01/2020 07:46:00 AM EST [facility] Patient discharged. Outpatient Attender: Daisy Craig 01:45:00 PM EST [facility] ([facility] ) Outpatient Attender: Daisy Craig 02:45:00 PM EDT [facility] ([facility] ) Immunizations Vaccine Date Status Description Data Source(s) COVID-19 VACCINE [facility] 04/11/2021 12:00:00 AM EDT completed [facility] Vaccine Series Complete: YESThis Data wa s Submitted to [facility]. COVID-19 VACCINE Pfizer 03/21/2021 12:00:00 AM EDT completed [facility] Vaccine Series Complete: NOThis Data was Submitted to [facility] [employer]. Influenza, injectable, MDCK, preservative free, stefania valent 05/01/2020 02:55:00 PM EDT completed [facility] ([facility]) Medications Medication Brand Name Start Date Product [...] DAY FOR 7 DAYS SOLD: 12/26/2020 [facility] Ondansetron 4 MG Disintegrating Oral Tablet [...] Antacid 11/07/2020 12:00:00 AM EDT active [facility] ([facility]) 30 mg 11/07/2020 12:00:00 [...] 09/20/2020 12:00:00 AM EST ORAL active [facility] ([facility]) 2.5-0.025 mg 09/12/2020 12:00:00 AM [...] DAILY DOSE = 9 TABLETS SOLD: 09/05/2020 [facility] Colestipol Hydrochloride 1000 MG Oral Tablet Colestipol [...] DAILY DOSE = 9 TABLETS SOLD: 11/28/2020 [facility] olanzapine 5 MG Oral Tablet OLANZAPINE 09/03/2020 [...] TWO TIMES A DAY SOLD: 07/18/2020 [email or web address] olanzapine 5 MG Oral Tablet Olanzapine 07/12/2020 12:00:00 AM EST ORAL active [facility] ([facility]) 0.5 mg 07/12/2020 12:00:00 AM EST tablet 60 TAKE ONE TABLET BY MOUTH TWICE A DAY MAXIMUM DAILY DOSE = TWO TABLETS TAKE ONE TABLET BY MOUTH TWICE A DAY MAXIMUM DAILY DOSE = TWO TABLETS SOLD: 07/18/2020 [email or web address] Cyclobenzaprine hydrochloride 10 MG Oral Tablet CYCLOBENZAPR INE HCL 07/11/2020 12:00:00 AM EST tablet 60 TAKE ONE TABLET BY MOUTH TWICE A DAY NEEDED TAKE ONE TABLET BY MOUTH TWICE A DAY NEEDED SOLD: 08/08/2020 [email or web address] Cyclobenzaprine hydrochloride 10 MG Oral Tablet CYCLOBENZAPR [...] DAILY DOSE = SIX TABLETS SOLD: 07/11/2020 [facility] Acetaminophen 325 MG Oral Tablet Acetaminophen 06/06/2020 12:00:00 AM EST active [facility] ([facility]) Meclizine Hydrochloride 25 MG Oral Tablet MECLIZINE HCL 05/30/2020 12:00:00 AM EST tablet 90 TAKE ONE TABLET BY MOUTH VICKI RY 8 HOURS NEEDED FOR DIZZINESS TAKE ONE TABLET BY MOUTH EVERY 8 HOURS NEEDED FOR DIZZINESS SOLD: 10/10/2020 [facility] Meclizine Hydrochloride 25 MG Oral Tablet MECLIZINE [...] Olanzapine 05/01/2020 12:00:00 AM EDT completed [facility] ([facility]) 2 mg 05/01/2020 12:00:00 AM [...] DAILY DOSE = 9 TABLETS SOLD: 07/28/2020 [facility] Insurance Providers Payer name Policy type / Coverage type Policy ID Covered republican ID Covered republican's relationship to laura Policy Laura Plan Information Medicare Natl Govt [facility] Medicare Primary [id number] Self 0 [id number] Medicare [facility] Medicare Primary [id number] Self 0 [id number] Medicare Natl Govt Servic Medicare Primary [id number] .[id number] Self 4 [id number] Medicare Natl Govt Servic Medicare Primary [id number] Self 0 [id number] Medicare Natl Govt Servic Medicare Primary [id number] Self [id number] Medicare - N[place] Medicare Primary [id number] Self [id number] Medicare Natl Govt Servic Medicare Primary [id number] Self Medicare Natl Govt Servic Medicare Primary [id number] Self 4 [id number] Medicare - NGS Medicare Primary [id number] Self [id number] Medicare Natl Govt Servic Medicare Primary [id number] Self 4 [id number] Medicare Natl Govt Servic Medicare Primary [id number] Self 0 [id number] Medicare Natl Govt Servic Medicare Primary [id number] Self [id number] BS [place] Medig[place] Part B [id number] Self MEDICARE [id number] SP [id number] BS [place] Medigap Part B [id number] Self [id number] BS [place] Commercial [id number] Self [id number] MEDICARE [id number] SP [id number] [place] Primary [id number] Self Medicaid [place] Medig[place] Part B [id number] Self MEDICAID [id number] SP [id number] Medicaid Medigap Part B [id number] 0.0 Self [id number] MEDICAID M [id number] S [id number] MEDICAID [id number] SP [id number] ANSI-Medicare Part B [id number] ANSI-Medicaid [id number] ANSI-Medicare Part B [id number] ANSI-Medicaid [id number] ANSI-Medicare Part B [id number] ANSI-Medicaid [id number] ANSI-Medicare Part B [id number] ANSI-Medicaid [id number] ANSI-Medicaid [id number] ANSI-Medicare Part B [id number] MEDICARE [id number] SP [id number] ANSI-Medicare Part B [id number] ANSI-Medicaid [id number] [facility] [id number] 0.0 Self [id number] Medicaid [place] Medigap Part B [id number] Self [id number] ANSI-Medicaid [id number] ANSI-Medicare Part B [id number] ANSI-Medicare Part B [id number] ANSI-Medicaid [id number] MEDICARE C [id number] S [id number] A Medicaid Medigap Part B [id number] 0.0 Self [id number] Medicaid Medigap Part B [id number] 0.0 Self [id number] Medicaid Medigap Part B [id number] 0.0 Self [id number] Medicaid Medigap Part B [id number] 0.0 Self [id number] [facility] [id number] S [id number] MEDICARE [id number] SP [id number] [place] Medig[place] Part B [id number] Self Medicaid Medigap Part B [id number] Self 1 1 BS [place] Medigap Part B [id number] Self [id number] BS [place] Medigap Part B [id number] Self [place] 306/806 NOT ACTIVE SP NOT ACTIVE SELF PAY UNAVAILABLE SP UNAVAILA BLE [place] 306/806 [id number] SP [id number] EXCELLUS BCBS S [id number] S [id number] [place]BS [place] P[place] 302/307 [id number] SP [id number] [place] [id number] SP [id number] Y [id number] MEDICARE PART A -O/P [id number] 18 [id number] MEDICAID -O/P EMERGENCY ROOM [id number] [place] [id number] SP [id number] MEDICARE C [id number] S [id number] MEDICARE PART A -O/P [id number] 18 [id number] MEDICARE PART A -O/P [id number] 18 [id number] Medicaid Medigap Part B [id number] Self [id number] BS [place] Part B [id number] Self [id number] Medicaid Medigap Part B [id number] 0.0 Self [id number] Medicaid [place] Medigap Part B [id number] 5585.0 Self [id number] [place] Med[place] Part B [id number] Self [id number] [id number] MEDICARE [id number] SP [id number] A75 Medicaid Medigap Part B [id number] 0.0 Self [id number] ANSI-Medicare Part B [id number] ANSI-Medicaid [id number] ANSI-Medicaid [id number] ANSI-Medicare Part B [id number] [facility]-Medicaid [id number] [facility] [id number] Problems, Conditions, and Diagnoses Code Display Name Description Problem Type Effective Dates Data Source(s) W22878 Presence of unspecified artificial hip j oint Presence of unspecified artificial hip joint Diagnosis 03/04/2021 11:38:00 AM [facility] [id number] Personal history of nicotine dependence Personal history of nicotine dependence Diagnosis 03/04/2021 11:38:00 AM [facility] Z7901 FCI (current) use of a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 FCI (current) use of a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 Diagnosis [facility] Type 2 diabetes mellitus without complic ations Type 2 diabetes mellitus without complications Diagnosis 03/04/2021 11:38:00 AM EDT [facility] I10 Essential (primary) hypertension Essential (primary) h ypertension Diagnosis 03/04/2021 11:38:00 AM [facility] K5900 Constipation, unspecified Constipation, unspecified Di agnosis 03/04/2021 11:38:00 AM [facility] N3000 Acute cystitis without hematuria Acute cystitis without hematuria Diagnosis 02/17/2021 07:58:00 AM [facility] Y47616 Pressure ulcer of other site, unspecifie d stage Pressure ulcer of other site, unspecified stage Diagnosis 02/17/2021 07:58:00 AM [facility] P95784 Pain in right foot Pain in right foot Diagnosis 07:58:00 AM [facility] G8929 Other chronic pain Other chronic pain Diagnosis 05:37:00 AM [facility] M25221 Pain in right ankle and joints of right foot Pain in right ankle and joints of right foot Diagnosis 12/10/2020 05:37:00 AM EDT [facility] R300 Dysuria Dysuria Diagnosis 12/10/2020 05:37:00 AM ED [facility] R1312 Dysphagia, oropharyngeal phase Dysphagia, oropharyngea l phase Diagnosis 12/01/2020 12:20:00 PM EDT [facility] J029 Acute pharyngitis, unspecified Acute pharyngitis, unsp ecified Diagnosis 12/01/2020 12:20:00 PM EDT [facility] E67454 Unspecified asthma, uncomplicated Unspecified as thma, uncomplicated Diagnosis 10/13/2020 11:01:00 PM [facility] M419 Scoliosis, unspecified Scoliosis, unspecified Diagnosi s 10/13/2020 11:01:00 PM [facility] N3001 Acute cystitis with hematuria Acute cystitis with ilda turia Diagnosis 10/13/2020 11:01:00 PM 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 ID Date Data Source [id number] 04/22/2021 08:18:00 AM EDT [facility] Name Value Range Interpretation Code Description Data Melanie rce(s) Supporting Document(s) SARS-CoV-2 (COVID 19) NEGATIVE - SARS-CoV-2 (COVID19) [facility] This lab was ordered by [facility] a nd reported by [facility]. ID Date Data Source [id number] 03/04/2021 11:38:00 AM EDT [facility] 1 OrderSheet [facility] Emergency Department [address] [place] [address] Phone #: ext- [phone] 03/04/2021 11:37 [id number] Sex: F : 1955 Age: 65yWEIGHT:77.1 kg (S) HEIGHT:59 inches (S) BMI:34.4ALLERGIES: Darvacet, Demerol, MicrodentinCHIEF COMPLAINT: abd pain, constipationDIAGNOSIS: ConstipationLAB ORDERSOrder Description Priority Entered Acknowledged InitialedDIAGNOSTIC STUDY ORDERSOrder Description Priority Entered Acknowledged InitialedAbdomen Multiview STAT 13:02 03/04/2021 13:03 Barney(Oxygen?(No)) Anita Fuentes manager securityJulio; Tech1 Reason for Study: constipation, lower abd painMEDICATION/IV/DRIP/FLUID ORDERSOrder Description Priority Entered Acknowledged InitialedGENERAL ORDERSOrder Description Priority Entered Acknowledged Initialed[Electronically signed by So Ladd R.N. (14:35 03/04/2021)][Electronically signed by Anita Fuentes (07:30 03/05/2021)][Electronically locked by Tyler Ladd R.N. (14:35 03/04/2021)] Name Value Range Interpretation Code Description Data Melanie rce(s) Supporting Document(s) ID Date Data Source [id number] 03/04/2021 11:38:00 AM EDT [facility] 1 Medication Reconciliation Report [facility] Emergency Department [address] [place] [address] Phone #: ext- [phone] 03/04/2021 11:37 Patient: FABIANO RAMIREZ Sex: F [...] the Emergency Department: 2 Medication Reconciliation Report [facility] Emergency Department [address] [place] [address] Phone #: ext- [phone] 03/04/2021 11:37 Patient: FABIANO RAMIREZ Sex: F : 1955 Age: 65yNone.The following Medications were prescribed to the patient:None. Name Value Range Interpretation Code Description Data Melanie rce(s) Supporting Document(s) ID Date Data Source [id number] 03/04/2021 11:38:00 AM EDT [facility] 1 Medication Administration Record [facility] Emergency Department [address] [place] [address] Phone #: ext- [phone] 03/04/2021 11:37 Patient: FABIANO RAMIREZ Sex: F : 1955 Age: 65yWeight: 77.1 kgHeight/Length: 59 inBMI: 34.4ALLERGIES: Darvacet, Microdentin, DemerolDate/Time Medication Administered Medication Ordered Name Value Range Interpretation Code Description Data Melanie rce(s) Supporting Document(s) ID Date Data Source [id number] 03/04/2021 11:38:00 AM EDT [place] [address] General Instructions [facility] Emergency Department [address] [place] [address] Phone #: ext- [phone] 03/04/2021 11:37 Patient: [...] by patient. ADDITIONAL INFORMATION 2 General Instructions [facility] Emergency Department [address] [place] [address] Phone #: ext- [phone] 03/04/2021 11:37 Patient: FABIANO RAMIREZ Sex: F [...] aging, work, and travel 3 General Instructions [facility] Emergency Department [address] [place] [address] Phone #: ext- [phone] 03/04/2021 11:37 Patient: [...] your healthcare provider first. 4 General Instructions [facility] Emergency Department [address] [place] [address] Phone #: ext- [phone] 03/04/2021 11:37 Patient: [...] have more tests or see a specialist.Call 160Jypr 260 if any of these occur: Trouble breathing Stiff, rigid abdomen that is severely painful to touch Confusion Fainting or loss of consciousness Rapid heart rate Chest painWhen to seek medical adviceCall your healthcare provider right away if any of these occur: Fever of 100.4F (38C) or higher, or as directed by your healthcare provider 5 General Instructions [facility] Emergency Department [address] [place] [address] Phone #: ext- [phone] 03/04/2021 11:37 Patient: FABIANO RAMIREZ Sex: F : 1955 Age: 65y Failure to resume normal bowel movements Pain in your abdomen or back gets worse Nausea or vomiting Swelling in your abdomen Blood in the stool Black, tarry stool Involuntary weight loss Weakness [phone] [employer]. [address] [place] [address]. All rights reserved. This information is not [...] high in fiber 6 Genera l Instructions [facility] Emergency Department [address] [place] [address] Phone #: ext- [phone] 03/04/2021 11:37 Patient: [id number] Sex: F : 1955 Age: 65yThese foods [...] green peas, celery, eggplant, potatoes, spinach, broccoli, Bypro sprouts, winter squash, carrots, cauliflower, soybeans, lentils, and fresh and dried beans of all kinds. Other. Popcorn; any spicesIf you have diverticulosisThere aren't any specific foods to avoid if you have diverticulosis. But each person is different. Theremay be some foods that make your symptoms worse. Keep track and don't eat foods that make youfeel worse. [phone] [employer]. [address] [place] [address]. All rights reserved. This information is not intended as asubstitute for professional medical care. Always follow your health acute care assistant's instructions. You have been given the following additional information: Constipation (Adult) High-Fiber Diet(Electronically signed by EMRE Puga 03/05/2021 07:30) Name Value Range Interpretation Code Description Data Melanie rce(s) Supporting Document(s) ID Date Data Source [id number] 03/04/2021 11:38:00 AM EDT [facility] 1 Clinical Report - Nurses [facility] Emergency Department [address] [place] [address] Phone #: ext- [phone] 03/04/2021 11:37 Patient: FABIANO RAMIREZ Sex: F : 1955 Age: 65yTRIAGEArrived by EMS. Historian: patient. Unaccompanied.Triage time: late entry - 11:34 03/04/2021. Acuity: LEVEL 3.Chief Complaint: ABDOMINAL PAIN and CONSTIPATION.Alert. No acute distress.Onset. (1 weeks ago). ( Pt hasnt had a normal BM in about a week. Pt was seen at [facility] yesterday andwas unable to tolerate a CT scan. She had a small BM 2 days ago. Pt has c/o of abd pain with a burningsensation.). She has had constipation.Treatment ACADEMIC AFFAIRS COORDINATOR:None.SEPSIS SCREEN: SIRS SCREEN NEGATIVE. SEPSIS SCREEN NEGATIVE. [...] Ladd R.N.Darvacet. 2 Clinical Report - Nurses [facility] Emergency Department [address] [place] [address] Phone #: ext- [phone] 03/04/2021 11:37 Patient: [...] "Do you 3 Clinical Report - Nurses [facility] Emergency Department [address] [place] [address] Phone #: ext- [phone] 03/04/2021 11:37 Patient: [...] Ladd R.N. 4 Clinical Report - Nurses [facility] Emergency Department [address] [place] [address] Phone #: ext- [phone] 03/04/2021 11:37 Patient: [...] F. Pain level now 5/10. --14:19 03/04/21 Barney manager securityJulio ER TechMonica late entry - 14:32 03/04/21. [...] Patient verbalized understanding. Written instructions provided in German. The patient was discharged by the physician restaurant assistant manager. She was discharged home and unaccompanied at time of discharge. She left ambulatory and via taxi. 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 --14:34 03/04/21 So Ladd R.N.Locked/Released at 03/04/2021 14:35 by So Ladd R.N. Name Value Range Interpretation Code Description Data Melanie rce(s) Supporting Document(s) ID Date Data Source [id number] 03/04/2021 11:38:00 AM EDT [facility] 1 Clinical Report - Physicians/Mid Levels [facility] Emergency Department [address] [place] [address] Phone #: ext- [phone] 03/04/2021 11:37 Patient: [id number] Sex: F : 1955 Age: 65y Time [...] bed and bathroom." She was seen at [facility] yesterday but was unable to tolerate [...] seen recently by a health care provider ([facility] ED yesterday).REVIEW OF SYSTEMSNo chills, fatigue, [...] Repair. 2 Clinical Report - Physicians/Mid Levels [facility] Emergency Department [address] [place] [address] Phone #: ext- [phone] 03/04/2021 11:37 Patient: FABIANO RAMIREZ Sex: F [...] 3. 3 Clinical Report - Physicians/Mid Levels [facility] Emergency Department [address] [place] [address] Phone #: ext- [phone] 03/04/2021 11:37 Patient: FABIANO RAMIREZ Sex: F : 1955 Age: 65yLABS, X-RAYS, AND EKGLaboratory Tests: Laboratory tests have been ordered, with results reviewed and considered in themedical decision making process. Abdomen Multiview: (OLE: 03/04/2021 13:02) ( MsgRcvd 03/04/2021 15:03) Final results Exam ABDOMEN MULTIPLE VIEW [facility] [address] [place] [address] PHONE: [phone] FAX: [phone] Name .................. : CANDIDO MARIO Acct Number.................. : [id number] ROOM. ................. : [facility] [facility]03 MR Number ................... : [id number] Stay type ............. : E/R Discharge Date......... ... : Admit Date ......... : 03/04/21 Admit Phys .................... : IRMA Stallings Date of ....... : 1955 Family Phys ................... : JENNY GARCIA Phone .................. : [phone] Age ................................ : 65 Film# .................. .:[id number] Sex ................................. : F Unsigned transcriptions are preliminary reports and do not represent a medical or legal document ABDOMEN MULTIPLE VIEW 72577 COMPLETE:03/04/21 13:02 33093 Reason(s): constipation, lower abd pain ABDOMINAL RADIOGRAPH [...] REC 4 Clinical Report - Physicians/Mid Levels [facility] [place] [address] Phone #: ext- [phone] 03/04/2021 11:37 Patient: FABIANO RAMIREZ Sex: F [...] packet. 5 Clinical Report - Physicians/Mid Levels [facility] Emergency Department [address] [place] [address] Phone #: ext- [phone] 03/04/2021 11:37 Patient: FABIANO RAMIREZ Sex: F : 1955 Age: 65y Motrin IB Oral : 400, prn. Potassium Chloride Oral : Packet 20 meq, 2x a day. Promethazine HCl Oral : Tablet 25 mg, prn. Sudafed Oral : 60 mg 2x a day. ZyPREXA Oral : Tablet 10 mg, at bedtime. Follow-up: Follow up with your [facility] provider Daisy Rodriguez NP Friday. Call for an appointment. Reason for referral: evaluation and treatment. Summary of care provided to patient via paper. Understanding of the discharge instructions verbalized by patient.(Electronically signed by EMRE Puga 03/05/2021 07:30) Name Value Range Interpretation Code Description Data Melanie rce(s) Supporting Document(s) ID Date Data Source [id number] 03/04/2021 03:03:00 PM EDT [facility] [address] [place] [address] PHONE: [phone] FAX: [phone] Name .................. : CANDIDO MARIO Acct Number.................. : [id number] ROOM. ................. : TR-03 MR Number ................... : [id number] Stay type ............. : E/R Discharge Date......... ... : Admit Date ......... : 03/04/21 Admit Phys .................... : IRMA Stallings Date of ....... : 1955 Family Phys ................... : JENNY GARCIA Phone .................. : [phone] Age ................................ : 65 Film# .................. .:[id number] Sex ................................. : F Unsigned transcriptions are preliminary reports and do not represent a medical or legal document ABDOMEN MULTIPLE VIEW 78221 COMPLETE:03/04/21 13:02 09373 Reason(s): constipation, lower abd pain ABDOMINAL RADIOGRAPH [...] EMERGENCY DEPT via modem Copy for: [facility] REC Page 1 of 1 Name Value Range Interpretation Code Description Data Melanie rce(s) Supporting Document(s) ID Date Data Source [id number] 02/19/2021 09:47:00 AM EDT [facility] [address] [place] [address] PHONE: [phone] FAX: [phone] Name .................. : CANDIDO MARIO Acct Number.................. : [id number] ROOM. ................. : TR- Number ................... : [id number] Stay type ............. : E/R Discharge Date......... ... : 02/17/21 Admit Date ......... : 02/17/21 Admit Phys .................... : IRMA Stallings Date of ....... : 1955 Family Phys ................... : [employer] Phone .................. : [phone] Age ................................ : 65 Film# .................. .:[id number] Sex ................................. 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 No other abnormalities. 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 Electronically Reviewed and Signed By NIGEL LEVINE MD , 02/19/21 09:47, [facility] Transcribe Initials: SHANNAN , Transcribe Date: 02/17/21 11:42, Dictation Date: Copy for: EMERGENCY DEPT via mendonm Copy for: 710 [facility] REC DISCHARGED Page 1 of 1 Name Value Range Interpretation Code Description Data Melanie rce(s) Supporting Document(s) ID Date Data Source [id number] 02/17/2021 07:58:00 AM EDT [facility] 1 OrderSheet [facility] Emergency Department [address] [place] [address] Phone #: ext- [phone] 02/17/2021 07:54 Patient: [...] R 10:13 02/17/2021 10:15 BurnhamSerge Harris ; manager securityJulio ER Tech1[Electronically signed by Naresh Guzman RN (10:25 02/17/2021)][Electronically signed by Serge Echeverria (11:03 02/17/2021)][Electronically locked by Naresh Guzman RN (10:25 02/17/2021)] Name Value Range Interpretation Code Description Data Melanie rce(s) Supporting Document(s) ID Date Data Source [id number] 02/17/2021 07:58:00 AM EDT [facility] 1 Medication Reconciliation Report [facility] Emergency Department [address] [place] [address] Phone #: ext [phone] 02/17/2021 07:54 Patient: FABIANO RAMIREZ Sex: F [...] the Emergency Department: 2 Medication Reconciliation Report [facility] Emergency Department [address] [place] [address] Phone #: ext- [phone] 02/17/2021 07:54 Patient: FABIANO RAMIREZ Sex: F : 1955 Age: 65yNone.The following Medications were prescribed to the patient:Bactrim DS 800 mg-160 mg tablet Take 1 tablet twice a day for 7 days -- Dispense 14 tablet. Refills: 0.Substitution permitted.Pharmacy - [facility] - [address] [facility] ; [place] [address]. . -- Serge Echeverria Name Value Range Interpretation Code Description Data Melanie rce(s) Supporting Document(s) ID Date Data Source [id number] 02/17/2021 07:58:00 AM EDT [place] [address] Medication Administration Record [facility] Emergency Department [address] [place] [address] Phone #: ext- [phone] 02/17/2021 07:54 Patient: FABIANO RAMIREZ Sex: F : 1955 Age: 65yWeight: 67.8 kgHeight/Length: 59 inBMI: 30.2ALLERGIES: Darvacet, Demerol, MicrodentinDate/Time Medication Administered Medication Ordered Name Value Range Interpretation Code Description Data [facility] Supporting Document(s) ID Date Data Source [id number] 02/17/2021 07:58:00 AM EDT [facility] 1 General Instructions [facility] Emergency Department [address] [place] [address] Phone #: ext- [phone] 02/17/2021 07:54 Patient: FABIANO RAMIREZ Sex: F [...] Dispense 14 tablet. Refills: 0.Substitution permitted.Pharmacy - [facility] - [address] [facility] ; [place] [address]. .Follow-up:Follow up with your healthcare provider.Understanding of the discharge instructions verbalized by patient. 2 General Instructions [facility] Emergency Department [address] [place] [address] Phone #: ext- [phone] 02/17/2021 07:54 Patient: FABIANO RAMIREZ Sex: F [...] a bladder infection are: 3 General Instructions [facility] Emergency Department [address] [place] [address] Phone #: ext- [phone] 02/17/2021 07:54 Patient: [...] Fluid loss (dehydration) Constipation 4 General Instructions [facility] Emergency Department [address] [place] [address] Phone #: ext- [phone] 02/17/2021 07:54 Patient: FABIANO RAMRIEZ Sex: F : 1955 Age: 65y Having [...] can irritate your bladder. 5 General Instructions [facility] Emergency Department [address] [place] [address] Phone #: ext- [phone] 02/17/2021 07:54 Patient: [...] if the results will affect your treatment.Call [phone] if any of the following occur: Trouble [...] swelling in the outer vaginal area (labia) 9427-3650 [employer]. [address] [place] [address], [place] [address]. All rights reserved. This information is not intended as asubstitute for professional medical care. Always follow your healthcare professional's instructions. 6 General Instructions [facility] Emergency Department [address] [place] [address] Phone #: ext- [phone] 02/17/2021 07:54 Patient: FABIANO RAMIREZ Sex: F : 1955 Age: 65yYou have been given the following additional information:Bladder Infection, Female (Adult)(Electronically signed by Serge Echeverria 02/17/2021 11:03) Name Value Range Interpretation Code Description Data Melanie rce(s) Supporting Document(s) ID Date Data Source [id number] 02/17/2021 07:58:00 AM EDT [facility] 1 Clinical Report - Nurses [facility] Emergency Department [address] [place] [address] Phone #: [phone]- [phone] 02/17/2021 07:54 Patient: FABIANO RAMIREZ Sex: F : 1955 Age: 65yTRIAGEArrived by EMS. Historian: patient.Acuity: LEVEL 4.Chief Complaint: RIGHT LOWER EXTREMITY PAIN.No injury occurred. Onset. (2 weeks ago). ( Pt states she has had right lower extremity pain for about thepast 2 weeks, she was seen here more than a couple weeks ago and an air splint was applied, she went [facility] yesterday and was released, she reports continued pain and now feels nausea).Treatment ACADEMIC AFFAIRS COORDINATOR:None.EMS Treatment ACADEMIC AFFAIRS COORDINATOR:EMS treatment verbally communicated and report reviewed. See [...] a day. 2 Clinical Report - Nurses [facility] Emergency Department [address] [place] [address] Phone #: ext- [phone] 02/17/2021 07:54 Patient: [...] Guzman RN. 3 Clinical Report - Nurses [facility] Emergency Department [address] [place] [address] Phone #: ext- [phone] 02/17/2021 07:54 Patient: FABIANO RAMIREZ Sex: F [...] Patient verbalized understanding. Written instructions provided in German. The patient was discharged by the physician. [...] rce(s) Supporting Document(s) ID Date Data Source [id number] 02/17/2021 07:58:00 AM EDT [facility] 1 Clinical Report - Physicians/Mid Levels [facility] Emergency Department [address] [place] [address] Phone #: ext- [phone] 02/17/2021 07:54 Patient: FABIANO RAMIREZ Sex: F [...] trauma. She states the ED at [facility] just wraps her toes, she thinks they wrapped it too tight. She wears a air cast and walks with a walker at home.). Patient denies an injury. Similar symptoms previously. Recent medical care: The patient was seen recently in the emergency department. ( Multiple times at [facility] for urinary complaints).REVIEW OF SYSTEMSNo chest [...] inspection. 2 Clinical Report - Physicians/Mid Levels [facility] Emergency Department [address] [place] [address] Phone #: ext- [phone] 02/17/2021 07:54 Patient: [...] done over last several months at [facility]. Not currently on antibiotics 3 Clinical Report - Physicians/Mid Levels [facility] Emergency Department [address] [place] [address] Phone #: ext- [phone] 02/17/2021 07:54 Patient: [...] tablet. Refills: 0. Substitution permitted. Pharmacy - [facility] - [address] [facility] ; [place] [address]. . 4 Clinical Report - Physicians/Mid Levels [facility] Emergency Department [address] [place] [address] Phone #: ext- [phone] 02/17/2021 07:54 Patient: FABIANO RAMIREZ Sex: F : 1955 Age: 65y Follow-up: Follow up with your healthcare provider. Understanding of the discharge instructions verbalized by patient.(Electronically signed by Serge Echeverria 02/17/2021 11:03) Name Value Range Interpretation Code Description Data Melanie rce(s) Supporting Document(s) ID Date Data Source [id number] 02/20/2021 07:22:00 AM EDT [facility] Name Value Range Interpretation Code Description Data Melanie rce(s) Supporting Document(s) CULTURE URINE [facility] spital _CULTURE URINE_$$174128$$172914$$091767$$490703$$048138$$483162$$398561$$711976$$599307$$ 876881$$376595$$377711$$674056$$810710$$685411$$272111$$223946$$772437$$369710$$ 610015$$759029$$867000$$762806$$902546$$929486$$539551$$926004 -- Continued on next page --Patient: CANDIDO MARIO Order: [id number] Page 2Culture: CULTURE URINE Status: Final ====$$[id number]$$[id number] DATE/TIME: 02/19/2021 08:06Culture: CULTURE URINE Status: FinalUrine Culture,Comprehensive: S0Wswit urogenital flora25,000-50,000 colony forming units per mLP1 Test performed [facility]: [facility] KATY #: [id number] [address] [place] [address] [id number] [facility] [address]Rzjrkze Director : Ross Jeffers MD NPI #:Gill Box Tender : 02/20/21.0722.XMT.SENT REF ID Date Data Source [id number] 02/17/2021 09:31:00 AM EDT [facility] Name Value Range Interpretation Code Description Data Mealnie rce(s) Supporting Document(s) URINALYSIS [facility] URINALYSIS SOURCE R [facility] COLOR yellow NORMAL: Yellow [facility] CLARITY hazy NORMAL: Clear [facility] Specific gravity of Urine by Test strip 1.015 1.001 - 1.030 [facility] pH 8 5 - 9 [facility] Glucose [Mass/volume] in Urine by Test strip NORM NORMAL: Negat gabe [facility] Bilirubin.total [Presence] in Urine by Test strip NEG NORMAL: Negative [facility] Ketones [Presence] in Urine by Test strip NEG NORMAL: Negative [facility] Protein [Mass/volume] in Urine by Test strip NEG NORMAL: Negat [facility] Nitrite [Presence] in Urine by Test strip NEG NORMAL: Negative [facility] BLOOD 25 NORMAL: Negative A [facility] LEUK EST 100 NORMAL: Negative A [facility] Urobilinogen [Mass/volume] in Urine by Test strip NOR less deanna n 1.0 mg/dL [facility] MICROSCOPIC See Below [facility] ital WBC 10 - 15 NORMAL: NONE SEEN A [facility] Erythrocytes [#/volume] in Urine by Test strip 15 - 20 NORMAL: NON E SEEN A [facility] EPITHELIAL MODERATE NORMAL: NONE SEEN A [facility] Bacteria [Presence] in Urine sediment by Light microscopy 1+ SMALL NORMAL: NONE SEEN [facility] Amorphous sediment [Presence] in Urine sediment by Light yong roscopy 2+ NORMAL: NONE SEEN [facility] Crystals [type] in Urine sediment by Light microscopy See Below [facility] TRIPLE PHOS 3+ NORMAL: NONE SEEN A [facility] ID Date Data Source [id number] 12/10/2020 05:37:00 AM EDT [facility] 1 OrderSheet [facility] Emergency Department [address] [place] [address] Phone #: ext- [phone] 12/10/2020 05:37 Patient: [...] rce(s) Supporting Document(s) ID Date Data Source [id number] 12/10/2020 05:37:00 AM EDT [facility] 1 Medication Reconciliation Report [facility] Emergency Department [address] [place] [address] Phone #: ext- [phone] 12/10/2020 05:37 Patient: [id number] Sex: F : 1955 Age: 65yWeight: 68.0 [...] Emergency Department: 2 Medication Re conciliation Report [facility] Emergency Department [address] [place] [address] Phone #: ext- [phone] 12/10/2020 05:37 Patient: FABIANO RAMIREZ Sex: F : 1955 Age: 65yMacrobid [PO] PO 100 mg, administered: 07:11 12/10/2020The following Medications were prescribed to the patient:Macrobid 100 mg capsule Take 1 capsule twice a day for 7 days -- Dispense 14 capsule. Refills: 0.Substitution permitted.Pharmacy - [facility] - [address] [place] [address]. . -- Xavier Robertson, Physician Name Value Range Interpretation Code Description Data Melanie rce(s) Supporting Document(s) ID Date Data Source [id number] 12/10/2020 05:37:00 AM EDT [facility] 1 Medication Administration Record [facility] Emergency Department [address] [place] [address] Phone #: [phone] ext- [phone] 12/10/2020 05:37 Patient: FABIANO RAMIREZ Sex: F : 1955 Age: 65yWeight: 68.0 kgHeight/Length: 59 inBMI: 30.3ALLERGIES: Darvacet, Demerol, Microdentin Date/Time Medication Administered Medication OrderedGiven MACROBID [PO] (NITROFURANTOIN Macrobid PO 100 mg (NOW)07:11 12/10/2020 MONOHYD MACRO)Roxanne Lerner R.N. Dose: 100 mg PO Name Value Range Interpretation Code Description Data Melanie rce(s) Supporting Document(s) ID Date Data Source [id number] 12/10/2020 05:37:00 AM EDT [facility] 1 General Instructions [facility] Emergency Department [address] [place] [address] Phone #: ext- [phone] 12/10/2020 05:37 Patient: [...] Dispense 14 capsule. Refills: 0.Substitution permitted.Pharmacy - [facility] - [address] [facility] ; [place] [address]. .Follow-up:Follow up with your healthcare provider in three days for staple removal. Call for an appointment. Summaryof care provided to patient via paper.Understanding of the discharge instructions verbalized. ADDITIONAL INFORMATIONBladder Infection, Female (Adult) 2 General Instructions [facility] Emergency Department [address] [place] [address] Phone #: ext- [phone] 12/10/2020 05:37 Patient: [...] Urgent need to urinate 3 General Instructions [facility] Emergency Department [address] [place] [address] Phone #: ext- [phone] 12/10/2020 05:37 Patient: [...] a diaphragm for controlTreatment 4 General Instructions [facility] Emergency Department [address] [place] [address] Phone #: ext- [phone] 12/10/2020 05:37 Patient: [...] your healthcare provider.Follow-up care 5 General Instructions [facility] Emergency Department [address] [place] [address] Phone #: ext- [phone] 12/10/2020 05:37 Patient: FABIANO RAMIREZ Sex: F [...] if the results will affect your treatment.Call [phone] if any of the following occur: [...] swelling in the outer vaginal area (labia) 4116-4516 [employer]. [address] [place] [address]. All rights reserved. This information is not intended as asubstitute for professional medical care. Always follow your healthcare professional's instructions. You have been given the following additional information: Bladder Infection, Female (Adult) 6 General Instructions [facility] Emergency Department [address] [place] [address] Phone #: ext- [phone] 12/10/2020 05:37 Patient: FABIAN[facility]IRE[id number] Sex: F : 1955 Age: 65y(Electronically signed by Xavier Robertson, Physician 12/10/2020 07:04) Name Value Range Interpretation Code Description Data Melanie rce(s) Supporting Document(s) ID Date Data Source [id number] 12/10/2020 05:37:00 AM EDT [facility] 1 Clinical Report - Nurses [facility] Emergency Department [address] [place] [address] Phone #: ext- [phone] 12/10/2020 05:37 Patient: [...] LEG PAIN.Alert. No acute distress.This started today.Treatment ACADEMIC AFFAIRS COORDINATOR:None.SEPSIS SCREEN: SIRS SCREEN NEGATIVE. SEPSIS SCREEN NEGATIVE. [...] Noam Carney.AllergiesDarvacet.Demerol. 2 Clinical Report - Nurses [facility] Emergency Department [address] [place] [address] Phone #: ext- [phone] 12/10/2020 05:37 Patient: FABIANO RAMIREZ Sex: F [...] membranes are 3 Clinical Report - Nurses [facility] Emergency Department [address] [place] [address] Phone #: ext- [phone] 12/10/2020 05:37 Patient: FABIANO RAMIREZ Sex: F [...] Patient verbalized understanding. Written instructions provided in German. The patient was discharged home and accompanied [...] rce(s) Supporting Document(s) ID Date Data Source [id number] 12/10/2020 05:37:00 AM EDT [facility] 1 Clinical Report - Physicians/Mid Levels [facility] Emergency Department [address] [place] [address] Phone #: ext- [phone] 12/10/2020 05:37 Patient: [...] surgery. 2 Clinical Report - Physicians/Mid Levels [facility] Emergency Department [address] [place] [address] Phone #: ext- [phone] 12/10/2020 05:37 Patient: [...] process. 3 Clinical Report - Physicians/Mid Levels [facility] Emergency Department [address] [place] [address] Phone #: ext- [phone] 12/10/2020 05:37 Patient: FABIANO RAMIREZ [id number] Sex: F : 1955 Age: 65y Urinalysis: [...] arise. 4 Clinical Report - Physicians/Mid Levels [facility] Emergency Department [address] [place] [address] Phone #: ext- [phone] 12/10/2020 05:37 Patient: FABIANO RAMIREZ Sex: F : 1955 Age: 65y Prescription Medications: Macrobid 100 mg capsule Take 1 capsule twice a day for 7 days -- Dispense 14 capsule. Refills: 0. Substitution permitted. Pharmacy - [facility] - [address] [place] [address]. . Follow-up: Follow up with your healthcare provider in three days for staple removal. Call for an appointment. Summary of care provided to patient via paper. Understanding of the discharge instructions verbalized.(Electronically signed by Xavier Robertson, Physician 12/10/2020 07:04) Name Value Range Interpretation Code Description Data Melanie rce(s) Supporting Document(s) ID Date Data Source [id number] 12/14/2020 09:42:00 AM EDT [facility] Name Value Range Interpretation Code Description Data Melanie rce(s) Supporting Document(s) CULTURE URINE [facility] spital _CULTURE URINE_$$794964$$572961$$143079$$015027$$516143$$565450$$096455$$398117$$269060$$ 998187$$880299$$551784$$043439$$625021$$514031$$389121$$947920$$839181$$909066$$ 190405$$038501$$673624$$400516$$159948$$761975$$913922$$173676 -- Continued on next page --Patient: CANDIDO MARIO Order: Page 2Culture: CULTURE URINE Status: Final ==== -- Continued on next page --Patient: CANDIDO MARIO Order: 2Culture: CULTURE URINE Status: Prelim =====$$[id number]$$[id number] DATE/TIME: 12/14/2020 09:06Culture: CULTURE URINE Status: FinalIsolate [...] on 12/13/2020 05:37 ET Escherichia coliUrine Culture,Comprehensive: N0Kbmwecbnbfs coli Flag: APatient: CANDIDO MARIO Order: [id number] Page 3Culture: CULTURE URINE Status: Final ISOLATE [...] S S . . . . . .28156-5Nlrmurbkiz S S . . . . . .267-5Imipenem S S . . . . . .279-0Levofloxacin R R . . . . . .74743- 8Meropenem S S . . . . . .6652-2Nitrofurantoin S S . . . . . .363-2Piperacillin/Tazobactam S S . . . . . .412-7Tetracycline S S . . . . . .496-0Tobramycin S S . . . . . .508-2 Trimethoprim/Sulfa S S . . . . . .516-5P1 Test performed by: Rose HURTADO #: [id number] [address] [place] [address] [id number] [facility] [address] Director : Ross Jeffers MD NPI #:Gill Box Tender : 12/13/20.1334.XMT.SENT REF 12/14/20.0942.XMT.SENT REF ID Date Data Source [id number] 12/10/2020 06:34:00 AM EDT [facility] Name Value Range Interpretation Code Description Data Melanie rce(s) Supporting Document(s) URINALYSIS [facility] alberto [facility] yellow NORMAL: Yellow [facility] CLARITY cloudy NORMAL: Clear [facility] spital Specific gravity of Urine by Test strip 1.015 1.001 - 1.030 [facility] pH 8 5 - 9 [facility] al Glucose [Mass/volume] in Urine by Test strip NORM NORMAL: Negat [facility] Bilirubin.total [Presence] in Urine by Test strip NEG NORMAL: Negative [facility] Ketones [Presence] in Urine by Test strip NEG NORMAL: Negative [facility] Protein [Mass/volume] in Urine by Test strip NEG NORMAL: Negat [facility] Nitrite [Presence] in Urine by Test strip NEG NORMAL: Negative [facility] BLOOD 10 NORMAL: Negative [facility] Leukocyte esterase [Presence] in Urine by Test strip 500 KANE L: Negative [facility] Urobilinogen [Mass/volume] in Urine by Test strip NOR less deanna n 1.0 mg/dL [facility] MICROSCOPIC See Below [facility] ital WBC 20 - 30 NORMAL: NONE SEEN A [facility] Erythrocytes [#/volume] in Urine by Test strip 3 - 5 NORMAL: NON E SEEN [facility] EPITHELIAL MODERATE NORMAL: NONE SEEN A [facility] Bacteria [Presence] in Urine sediment by Light microscopy 2+ MOD NORMAL: NONE SEEN A [facility] Amorphous sediment [Presence] in Urine sediment by Light yong roscopy 2+ NORMAL: NONE SEEN [facility] ID Date Data Source [id number] 12/06/2020 09:09:00 AM EDT [facility] [address] [place] [address] PHONE: [phone] FAX: [phone] Name .................. : CANDIDO MARIO Acct Number.................. : [id number] ROOM. ................. : VT-05 Number ................... : [id number] Stay type ............. : E/R Discharge Date......... ... : 12/01/20 Admit Date ......... : 12/01/20 [facility] .................... [facility] Date of ....... : 1955 Family Phys ................... : JENNY NAN Phone .................. : [phone] Age ................................ : 65 Film# .................. .:[id number] Sex ................................. : F Unsigned transcriptions are preliminary reports and do not represent a medical or legal document CT ST NECK W/O CONTRAST 35050 COMPLETE:12/01/20 15:07 RUFUS 28872 Reason(s): evaluate for foreign body as she [...] and further evaluation, Page 1 of 2 [place] [address] PHONE: [phone] FAX: [phone] Name .................. : CANDIDO MARIO Acct Number.................. : [id number] ROOM. ................. : VT-05 Number ................... : [id number] Stay type ............. : E/R Discharge Date......... ... : 12/01/20 Admit Date ......... : 12/01/20 Admit Phys .................... : VIJAYA Date of ....... : Family Phys ................... : JENNY GARCIA Phone .................. : [phone] Age ................................ : 65 Film# .................. .:[id number] Sex ................................. : F Unsigned transcriptions are preliminary reports and do not represent a medical or legal document CT ST NECK W/O CONTRAST 10993 COMPLETE:12/01/20 15:07 RUFUS 29386 Reason(s): evaluate for foreign body as she [...] rce(s) Supporting Document(s) ID Date Data Source [id number] 12/01/2020 12:20:00 PM EDT [facility] 1 OrderSheet [facility] Emergency Department [address] [place] [address] Phone #: ext- [phone] 12/01/2020 12:07 Patient: FABIANO RAMIREZ Sex: F [...] rce(s) Supporting Document(s) ID Date Data Source [id number] 12/01/2020 12:20:00 PM EDT [facility] 1 Medication Reconciliation Report [facility] Emergency Department [address] [place] [address] Phone #: ext- [phone] 12/01/2020 12:07 [facility]: [id number] Sex: F : 1955 Age: 65yWeight: 71.9 [...] the Emergency Department: 2 Medication Reconciliation Report [facility] Emergency Department [address] [place] [address] Phone #: ext- [phone] 12/01/2020 12:07 Patient: FABIANO ARMIREZ Sex: F : 1955 Age: 65yGI Cocktail [PO] PO 50 mL, administered: 12:40 12/01/2020tivan [IM] IM 1 mg, administered: 14:25 12/01/2020The following Medications were prescribed to the patient:None. Name Value Range Interpretation Code Description Data Melanie rce(s) Supporting Document(s) ID Date Data Source [id number] 12/01/2020 12:20:00 PM EDT [facility] 1 Medication Administration Record [facility] Emergency Department [address] [place] [address] Phone #: ext- [phone] 12/01/2020 12:07 Patient: [...] rce(s) Supporting Document(s) ID Date Data Source [id number] 12/01/2020 12:20:00 PM EDT [facility] 1 General Instructions [facility] Emergency Department [address] [place] [address] Phone #: ext- [phone] 12/01/2020 12:07 Patient: [...] an ear, nose and throat physician (an maintenance assistant)and a pest control chemical technician in three days. Reason for referral: evaluation. Summary of care provided to patientvia paper. ADDITIONAL INFORMATIONDysphagia (Adult) 2 General Instructions [facility] Emergency Department [address] [place] [address] Phone #: ext- [phone] 12/01/2020 12:07 Patient: FABIANO RAMIREZ [facility]#: [id number] Sex: F : 1955 Age: 65y Dysphagia [...] evaluate you using X-ray, 3 General Instructions [facility] Emergency Department [address] [place] [address] Phone #: ext- [phone] 12/01/2020 12:07 Patient: [id number] Sex: F : 1955 Age: 65yspecial esophagus [...] for any of the followin General Instructions [facility] Emergency Department [address] [place] [address] Phone #: ons- [phone] 12/01/2020 12:07 Patient: FABIANO RAMIREZ Sex: F : 1955 Age: 65y Inability to keep down food or liquid Symptoms that get worse quickly Coughing that won't stop Continuing to lose weight Fever of 100.4F (38C) or higher, or as directed by your healthcare provider Other symptoms as indicated by your healthcare providerCall [address] [place] [address] for any of the following: Trouble breathing Inability to talk Drooling, inability to control secretions Loss of consciousness [phone] [employer]. [address] [place] [address]. All rights reserved. This information is not intended as asubstitute for professional medical care. Always follow your healthcare professional's instructions. You have been given the following additional information: Dysphagia (Adult)(Electronically signed by Karen Saucedo 12/01/2020 19:10) Name Value Range Interpretation Code Description Data Melanie rce(s) Supporting Document(s) ID Date Data Source [id number] 12/01/2020 12:20:00 PM EDT [facility] 1 Clinical Report - Nurses [facility] Emergency Department [address] [place] [address] Phone #: jrm- [phone] 12/01/2020 12:07 Patient: FABIANO RAMIREZ Sex: F : 1955 Age: 65yTRIAGEArrived by EMS. Historian: EMS and patient.Acuity: LEVEL 4.Chief Complaint: SORE THROAT.This started yesterday. 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 See [...] Guzman RN.AllergiesDarvacet. 2 Clinical Report - Nurses [facility] Emergency Department [address] [place] [address] Phone #: ext- [phone] 12/01/2020 12:07 Patient: [...] in lowest 3 Clinical Report - Nurses [facility] Emergency Department [address] [place] [address] Phone #: ext- [phone] 12/01/2020 12:07 Patient: FABIANO RAMIREZ Sex: F [...] 12/01/20 Myles Landis R.N. Patient returned from [place] by wheelchair with tech. --14:20 12/01/20 Myles Landis R.N. ( Unable to get comfortable in CT). --14:12/01/20 Myles Landis R.N. 14:25 12/01/2020 Ativan (LORazepam) IM 1 mg given. Given in the left deltoid. Allergies verified and confirmed 5 rights. Information reviewed. Verbalizes understanding. --14:25 12/01/20 Myles Landis R.N. Patient returned from [place] by wheelchair with tech. --15:07 12/01/20 Myles [...] Patient verbalized understanding. Written instructions provided in German. The patient was discharged by the physician. She was discharged home. She left ambulatory. Police Chief driving. --16:49 12/01/20 Myles Landis R.N. 16:48 12/01/20. BP: 142/86. MAP: 104. HR: 74. RR: 18. O2 saturation: 97%. Temp: deferred. Pain level now: 08/30. --16:49 12/01/20 Myles Landis R.N. Departure time: 16:50 12/01/2020. --16:50 12/01/20 Myles Landis R.N.Locked/Released at 12/01/2020 16:50 by Myles Landis R.N. Name Value Range Interpretation Code Description Data Melanie rce(s) Supporting Document(s) ID Date Data Source [id number] 12/01/2020 12:20:00 PM EDT [facility] 1 Clinical Report - Physicians/Mid Levels [facility] Emergency Department [address] [place] [address] Phone #: ext- [phone] 12/01/2020 12:07 Patient: FABIANO RAMIREZ Sex: F : 1955 Age: 65y Time Seen: 12:28 12/01/2020; initial patient contact, initial documentation. Arrived- By ambulance. Historian- patient. Disposition decision: 16:27 12/01/2020.HISTORY OF PRESENT ILLNESS Chief Complaint: SORE THROAT. FOREIGN BODY SENSATION IN THROAT. 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 It was abrupt in onset and has [...] on swallowing. she was seen at [facility] where they did an xray [...] Surgeries: 2 Clinical Report - Physicians/Mid Levels [facility] Emergency Department [address] [place] [address] Phone #: ext- [phone] 12/01/2020 12:07 Patient: [...] 3. 3 Clinical Report - Physicians/Mid Levels [facility] Emergency Department [address] [place] [address] Phone #: ext- [phone] 12/01/2020 12:07 Patient: FABIANO RAMIREZ Sex: F [...] day. 4 Clinical Report - Physicians/Mid Levels [facility] Emergency Department [address] [place] [address] Phone #: ext- [phone] 12/01/2020 12:07 Patient: [facility]ABIAN[facility]IREZ [id number] Sex: F : 1955 Age: 65y Meclizine [...] an ear, nose and throat physician (an maintenance assistant) and a pest control chemical technician in three days. Reason for referral: evaluation. Summary of care provided to patient via paper.(Electronically signed by Karen Saucedo 12/01/2020 19:10) Name Value Range Interpretation Code Description Data [facility] rce(s) Supporting Document(s) ID Date Data Source [id number] 11/04/2020 09:59:00 PM EDT [facility] Name Value Range Interpretation Code Description Data [facility] Document(s) Appearance, Urine RFX Laboratory test result [facility] ([facility]) PH,Urine RFX 7.0 units 5.0-9.0 [facility] ([facility]) Color, Urine RFX Laboratory test result [facility] ([facility]) Glucose, Urine (Ua) Auto RFX Laboratory test result [facility] Specific [place] Ur Auto RFX 1.013 1.002-1.035 [facility] ([facility]) Protein, Urine Auto RFX Laboratory test result [facility] ([facility]) Ketone, Urine Auto RFX Laboratory test result [facility] ([facility]) Urobilinogen, Urine Auto RFX 0.2 mg/dL 0.0-2.0 [facility] Bilirubin, Urine Auto RFX Laboratory test result [facility]) Nitrite, Urine Auto RFX Laboratory test result [facility]) Blood, Urine Blood RFX Laboratory test result [facility] ([facility]) Leukocyte Esterase Ur Auto RFX Laboratory test result [facility] ([facility]) RBC, Urine Auto RFX 2 /HPF 0-3 [facility] WBC, Urine Auto RFX 12 /HPF 0-3 [facility]) Squam Epithelial Cell Ur Aurfx 1 /HPF 0-6 [facility] ([facility]) Mucus, Urine RFX Laboratory test result [facility] ([facility]) Bacteria, Urine Auto RFX Laboratory test result [facility] ([facility]) Hyaline Cast, Urine Auto RFX 1 /LPF 0-1 M [facility] ([facility]) ID Date Data Source [id number] 11/04/2020 09:59:00 PM EDT [facility] ([facility]) Name Value Range Interpretation Code Description Data Melanie rce(s) Supporting Document(s) Reflex Urine Culture Laboratory test result [facility] ([facility]) <content>FULL REPORT IN LAB NOTES (eCW [...] 1 S</content>
<content></content> ID Date Data Source [id number] 10/29/2020 11:06:00 AM EDT [facility] ([facility]) Name Value Range Interpretation Code Description Data Melanie rce(s) Supporting Document(s) Reflex Urine Culture Laboratory test result [facility] ([facility]) <content>FULL REPORT IN LAB NOTES (eCW [...] 2 S</content>
<content></content> ID Date Data Source [id number] 10/29/2020 11:06:00 AM EDT [facility] ([facility]) Name Value Range Interpretation Code Description Data Melanie rce(s) Supporting Document(s) Appearance, Urine RFX Laboratory test result [facility] PH,Urine RFX 7.0 units 5.0-9.0 [facility]) Color, Urine RFX Laboratory test result [facility]) Specific [place] Ur Auto RFX 1.012 1.002-1.035 [facility]) Protein, Urine Auto RFX Laboratory test result [facility]) Glucose, Urine (Ua) Auto RFX Laboratory test result [facility]) Urobilinogen, Urine Auto RFX 0.2 mg/dL 0.0-2.0 [facility]) Ketone, Urine Auto RFX Laboratory test result [facility]) Bilirubin, Urine Auto RFX Laboratory test result [facility]) Nitrite, Urine Auto RFX Laboratory test result [facility]) Leukocyte Esterase Ur Auto RFX Laboratory test result [facility]) WBC, Urine Auto RFX 29 /HPF 0-3 [facility]) Blood, Urine Blood RFX Laboratory test result [facility]) RBC, Urine Auto RFX 12 /HPF 0-3 [facility]) Squam Epithelial Cell Ur Aurfx 1 /HPF 0-6 [facility]) Bacteria, Urine Auto RFX Laboratory test result [facility]) Hyaline Cast, Urine Auto RFX 1 /LPF 0-1 M [facility]) Mucus, Urine RFX Laboratory test result [facility]) Amorphous Sediment RFX Laboratory test result [facility]) ID Date Data Source [id number] 10/29/2020 10:47:00 AM EDT [facility] Name Value Range Interpretation Code Description Data Melanie rce(s) Supporting Document(s) SARS COVID ANTIGEN NEGATIVE [facility] This lab [facility] a nd reported by [facility]. ID Date Data Source [id number] 10/29/2020 10:47:00 AM EDT [facility] ([facility]) Name Value Range Interpretation Code Description Data Melanie rce(s) Supporting Document(s) Laboratory test finding (navigational concept) Laboratory test result [facility] ([facility]) The Tory SARS Antigen ALISTAIR does not diff erentiate between SARS-CoV and SARS-CoV-2. Negative results do not rule out COVID-19 and should not be used as the sole basis for treatment. Negative results should be considered in the context of a patient's recent exposure, history and the presence of clinical signs and symptoms consistent with COVID-19. ID Date Data Source [id number] 10/19/2020 08:54:00 AM EDT [facility] [address] [place] [address] PHONE: [phone] FAX: [phone] Name .................. : CANDIDO MARIO Acct Number.................. : [id number] ROOM. ................. : TR-04 MR Number ................... : [id number] Stay type ............. : E/R Discharge Date......... ... : 10/14/20 Admit Date ......... : 10/13/20 [facility] ....... : 1955 Family Phys ................... : JENNY NAN Phone . ................. : [phone] Age ................................ : 65 Film# .................. .:[id number] Sex ................................. : F Unsigned transcriptions are preliminary reports and do not represent a medical or legal document CHEST PORTABLE 51314 COMPLETE:10/14/20 00:54 SR 7229 Reason(s): cough hemoptysis [...] 10/14/20 13:06, Dictation Date: Copy for: [address] [facility] REC DISCHARGED Page 1 of 1 Name Value Range Interpretation Code Description Data Melanie rce(s) Supporting Document(s) ID Date Data Source [id number] 10/16/2020 09:15:00 AM EDT [address] [address] RESPIRATORY CARE REPORT ==== ---------NAME------- NUMBER SEX AGE ADMIT DISC. XRAY# F/C KELSEY MARIO [id number] F 65 10/13/20 10/14/20 [id number] E/R DATE OF : 1955 M/R# [id number] #: [id number] TR-04 LOCATION: EKG 61935 COMPLETE:10/14/20 0 0:29 T 38643 PHYSICIAN: VIJAYA Name Value Range Interpretation Code Description Data Melanie rce(s) Supporting Document(s) ID Date Data Source [id number] 10/13/2020 11:01:00 PM EDT [facility] 1 OrderSheet [facility] Emergency Department [address] [place] [address] Phone #: ext- [phone] 10/13/2020 23:01 Patient: AFBIANO RAMIREZ Sex: F : 1955 Age: 65yWEIGHT:91.6 [...] 23:47 10/13/2020 00:19 10/14/2020(Urine, Clean [facility] ;Lactic Acid STAT 23:47 10/13/2020 23:59 [...] Order 23:50 ; Karen Saucedo 2 OrderSheet [facility] Emergency Department [address] [place] [address] Phone #: ext- [phone] 10/13/2020 23:01 Patient: [...] InitialedAccucheck 23:47 10/13/2020 23:59 Angelika, 3 OrderSheet [facility] Emergency Department [address] [place] [address] Phone #: ext- [phone] 10/13/2020 23:01 Patient: FABIANO RAMIREZ Sex: F [...] rce(s) Supporting Document(s) ID Date Data Source [id number] 10/13/2020 11:01:00 PM EDT [facility] 1 Medication Reconciliation Report [facility] Emergency Department [address] [place] [address] Phone #: ext- [phone] 10/13/2020 23:01 Patient: [...] Home Medication information:patient 2 Medication Reconciliation Report [facility] Emergency Department [address] [place] [address] Phone #: ext- [phone] 10/13/2020 23:01 Patient: [...] Dispense 14 tablet. Refills: 0.Substitution permitted.Pharmacy - [facility] - [address] ; [place] [address]. . -- Karen Saucedo Name Value Range Interpretation Code Description Data Melanie rce(s) Supporting Document(s) ID Date Data Source [id number] 10/13/2020 11:01:00 PM EDT [facility] 1 Medication Administration Record [facility] Emergency Department [address] [place] [address] Phone #: ext- [phone] 10/13/2020 23:01 Patient: FABIANO RAMIREZ Sex: F : 1955 Age: 65yWeight: 91.6 kgHeight/Length: 62 inBMI: 37ALLERGIES: Darvacet, Demerol, Microdentin Date/Time Medication Administered Medication OrderedStart ROCEPHIN (1GM/50ML) [IVPB] Rocephin (1gm/50mL) IVPB 685290:[id number] 10/14/2020 (CEFTRIAXONE SODIUM) mg with Dextrose 50 ml spike Noam Ramesh, Dose: 1 gm IVPB (D5W)---- Rate: 100 mL/hr over 30 minute(s)Stop Dispensed: 50 mL bag02:58 10/14/2020 Site: #1 left Noam Estrada, Name Value Range Interpretation Code Description Data Melanie rce(s) Supporting Document(s) ID Date Data Source [id number] 10/13/2020 11:01:00 PM EDT [facility] 1 General Instructions [facility] Emergency Department [address] [place] [address] Phone #: ext- [phone] 10/13/2020 23:01 Patient: [...] Dispense 14 tablet. Refills: 0.Substitution permitted.Pharmacy - [facility] - [address] ; [place] [address]. .Follow-up:Follow up with your healthcare provider Friday if not better. Reason for referral: evaluation. Summary ofcare provided to patient via paper. ADDITIONAL INFORMATION 2 General Instructions [facility] Emergency Department [address] [place] [address] Phone #: ext- [phone] 10/13/2020 23:01 Patient: FABIANO RAMIREZ Sex: F [...] prescribed for this condition. 3 General Instructions [facility] Emergency Department [address] [place] [address] Phone #: ext- [phone] 10/13/2020 23:01 Patient: FABIANO RAMIREZ Sex: F [...] loosen secretions in the nose and lungs. Tanp-tvm-imflymc cold medicines will not shorten the length of time you're sick, but they may be helpful for the following symptoms: cough, sore throat, and nasal and sinus congestion. If you take prescription medicines, ask your healthcare provider or pharmacist which dhgf-bjm-ixcvhxf medicines are safe to use. (Note: Don't [...] wheezing, or difficulty breathing 4 General Instructions [facility] Emergency Department [address] [place] [address] Phone #: ext- [phone] 10/13/2020 23:01 Patient: FABIANO RAMIREZ Sex: F : 1955 Age: 65y Coughing up blood Very severe pain with swallowing, especially if it goes along with a muffled voice [phone] [employer]. [address] [place] [address]. All rights reserved. This information is not [...] of cystitis isan infection. 5 General Instructions [facility] Emergency Department [address] [place] [address] Phone #: lfi- [phone] 10/13/2020 23:01 Patient: FABIANO RAMIREZ Sex: F [...] put in Older age 6 General Instructions [facility] Emergency Department [address] [place] [address] Phone #: ext- [phone] 10/13/2020 23:01 Patient: FABIANO RAMIREZ Sex: F [...] and vegetables, and fiber. 7 General Instructions [facility] Emergency Department [address] [place] [address] Phone #: ext- [phone] 10/13/2020 23:01 Patient: [...] outer vaginal area (labia) 8 General Instructions [facility] Emergency Department [address] [place] [address] Phone #: ext- [phone] 10/13/2020 23:01 Patient: FABIANO RAMIREZ Sex: F : 1955 Age: 65y [phone] [employer]. [address] [place] [address]. All rights reserved. This information is not intended as asubstitute for professional medical care. Always follow your healthcare professional's instructions. You have been given the following additional information: URI, Viral, No Abx (Adult) Bladder Infection, Female (Adult)(Electronically signed by Karen Saucedo 10/15/2020 07:57) Name Value Range Interpretation Code Description Data Melanie rce(s) Supporting Document(s) ID Date Data Source [id number] 10/13/2020 11:01:00 PM EDT [facility] 1 Clinical Report - Nurses [facility] Emergency Department [address] [place] [address] Phone #: ext- [phone] 10/13/2020 23:01 Patient: FABIANO RAMIREZ Sex: F [...] No acute distress.Onset. (See the triage note).Treatment ACADEMIC AFFAIRS COORDINATOR:(she was seen here a few months ago [...] Miguel RN.AllergiesDarvacet. 2 Clinical Report - Nurses [facility] Emergency Department [address] [place] [address] Phone #: ext- [phone] 10/13/2020 23:01 Patient: [...] pre- and 3 Clinical Report - Nurses [facility] Emergency Department [address] [place] [address] Phone #: ext- [phone] 10/13/2020 23:01 Patient: FABIANO RAMRIEZ Sex: F : 1955 Age: 65y post-medication administration. Information reviewed with patient including reason for taking this medication, signs of allergic reaction and precautions. Verbalizes understanding. --01:56 10/14/20 Noam Carney Patient returned from [place] by wheelchair with mask and sound effects technician. --02:36 10/14/20 Roxanne Lerner R.N. 02:37 [...] Patient verbalized understanding. Written instructions provided in German. No treatment instructions. The patient was discharged by the physician. She was discharged home. She left ambulatory and via taxi. 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 --04:24 10/14/20 Noam Carney.Locked/Released at 10/14/2020 04:25 by Noam Carney Name Value Range Interpretation Code Description Data Melanie rce(s) Supporting Document(s) ID Date Data Source [id number] 10/13/2020 11:01:00 PM EDT [facility] 1 Clinical Report - Physicians/Mid Levels [facility] Emergency Department [address] [place] [address] Phone #: ext- [phone] 10/13/2020 23:01 Patient: FABIANO RAMIREZ Sex: F [...] surgery. 2 Clinical Report - Physicians/Mid Levels [facility] Emergency Department [address] [place] [address] Phone #: ext- [phone] 10/13/2020 23:01 Patient: FABIANO RAMIREZ Sex: F [...] Interpretation 3 Clinical Report - Physicians/Mid Levels [facility] Emergency Department [address] [place] [address] Phone #: ext- [phone] 10/13/2020 23:01 Patient: [...] CT CTA CHEST NON-CORONARY W [facility] [place] [id number] [facility] [place] [address] ---------NAME--------- NUMBER SEX AGE ADMIT DISC. XRAY# F/C TYPE CANDIDO MARIO [id number] F 65 10/13/20 [id number] E/R DATE OF : 1955 M/R# [id number] #: [id number] TR-04 LOCATION: TRANSCRIBED: 10/14/20 3:[address] CTA CHEST NON-CORONARY W [id number] COMPLETED:10/14/20 2:52 [facility] [place] Reason(s): hemoptysis -- PHYSICIAN: VIJAYA -- -- R A D I O L O G Y R E P O R T -- PATIENT HISTORY: hemopstysis. isovue 370 75 ml [id number] exp 09/12. estimated dose 394.5. actual dose 395.6 mGy*cm. Time Out performed. Correct patient with 2 identifiers, type and amount of contrast used, correct body part and side all verified prior to examination. / COR SLAB MIP (DICOM Hx) EXAM: CTA Chest with Intravenous Contrast for PE evaluation -- CLINICAL HISTORY:hemopstysis. isovue 370 75 ml [id number] exp 09/12. estimated dose 394.5. actual dose [...] thoracic aorta. 4 Clinical Report - Physicians/Mid [facility] Emergency Department [address] [place] [address] Phone #: ext- [phone] 10/13/2020 23:01 Patient: [...] 7.0) 5 Clinical Report - Physicians/Mid Levels [facility] Emergency Department [address] [place] [address] Phone #: ext- [phone] 10/13/2020 23:01 [facility]: [id number] Sex: F : 1955 Age: 65y BASO [...] Male GFR Interprentation 20-49 yrs >60 mL/min Eiwjij36-35 yrs >56 mL/min Normal 60-69 yrs >49 mL/min Normal 70-79yrs>42 mL/min Normal 80 and above >35 mL/min Normal Female GFRInterpretation 20-39 yrs >60 mL/min Normal 40-49 yrs >58 mL/minNormal 50-59 yrs >51 mL/min Normal 60-69 yrs >45 mL/min Kqnimw49-84 yrs >39 mL/min Normal 80 and above >32 mL/min NormalLactic Acid: (OEL: 10/14/2020 00:01) ( [facility] 10/14/2020 00:22) Final results Test Result Flag Units (Reference) LACTIC ACID 1.4 MMOL/L (0.2 - 2.2)PT/INR: (OLE: 10/14/2020 00:01) ( [facility] 10/14/2020 00:22) Final results Test Result Flag Units (Reference) PROTIME 15.3 SECONDS (11.0 - 15.5) INR 1.15 (0.93 - 1.23) \\BLDo\\INR INTERPRETATION\\BLDx\\ Therapeutic range for Coumadin andrelated oral a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. - International Normalized Ratio (INR): 2.0 - 3.0 for VenousThrombosis, Pulmonary Embolus, Tissue heart valves, Acute LA, Atrial Fibrillation, Valvular heartdisease and recurrent Systemic Embolism. - International Normalized Ratio (INR): 2.5 - 3.5 6 Clinical Report - Physicians/Mid Levels [facility] Emergency Department [address] [place] [address] Phone #: ext- [phone] 10/13/2020 23:01 Patient: [id number] Sex: F : 1955 Age: 65yfor Mechanical Prosthetic valve.PT/PTT: (OLE: 10/13/2020 23:47) ( [facility] 10/14/2020 00:06) CanceledTroponin-T: (OLE: 10/14/2020 00:01) ( [facility] 10/14/2020 00:39) Final results Test Result Flag Units (Reference) TROPONIN T <0.01 NG/ML (0.00 - 0.10) TROPONIN T0.1 ng/ml Recommended as the clinical threshold value forTroponin T.Urinalysis: (OLE: 10/13/2020 23:45) ( [facility] 10/14/2020 00:22) Final results Test Result Flag [...] NONEVenous Blood Gas: (OLE: 10/13/2020 23:47) ( [facility] 10/13/2020 23:50) CanceledCRP: (OLE: 10/14/2020 00:01) ( [facility] 10/14/2020 00:40) Final results Test Result Flag [...] 10/13/2020 23:47) ( MsgRcvd 10/14/2020 00:54) In RosalieCHEST PORTABLE 7 Clinical Report - Physicians/Mid Levels [facility] Emergency Department [address] [place] [address] Phone #: ext- [phone] 10/13/2020 23:01 Patient: [...] Oral. 8 Clinical Report - Physicians/Mid Levels [facility] Emergency Department [address] [place] [address] Phone #: ytu- [phone] 10/13/2020 23:01 Patient: FABIANO RAMIREZ Sex: F [...] tablet. Refills: 0. Substitution permitted. Pharmacy - [id number] - [phone] ; [place] [address]. . Follow-up: Follow up with your healthcare provider Friday if not better. Reason for referral: evaluation. Summary of care provided to patient via paper.(Electronically signed by Karen Saucedo 10/15/2020 07:57) Name Value Range Interpretation Code Description Data Melanie rce(s) Supporting Document(s) ID Date Data Source [id number] 10/14/2020 03:51:00 AM EDT [facility] [address] [place] [address] ---------NAME--------- NUMBER SEX AGE ADMIT DISC. XRAY# F/C TYPE CANDIDO MARIO [id number] F 65 10/13/20 [id number] E/R DATE OF : 1955 M/R# [id number] #: [id number] TR-04 LOCATION: TRANSCRIBED: 10/14/20 3:[address] CTA CHEST NON-CORONARY W [id number] COMPLETED:10/14/20 2:52 [facility] [place] Reason(s): hemoptysis PHYSICIAN: VIJAYA R A D I O L O G Y R E P O R T PATIENT HISTORY:hemopstysis. isovue 370 75 ml [id number] exp 09/12. estimated dose 394.5. actualdose 395.6 mGy*cm.Time Out performed. Correct patient with 2 identifiers, type and amount ofcontrast used, correct body part and side all verified prior to examination. /COR SLAB MIP (DICOM Hx)EXAM: CTA Chest with Intravenous Contrast for PE evaluationCLINICAL HISTORY:hemopstysis. isovue 370 75 ml [id number] exp 09/12. estimated rhga136.5. actual dose 395.6 mGy*cm. Time Out performed. [...] rce(s) Supporting Document(s) ID Date Data Source [id number] 10/21/2020 06:30:00 AM EDT [facility] Name Value Range Interpretation Code Description Data Melanie rce(s) Supporting Document(s) CULTURE BLOOD [facility] _CULTURE BLOOD_ TEST [place] [address] CLIA# [id number] SEE SCANNED REPORT{ PRELIM ID Date Data Source [id number] 10/14/2020 12:35:00 AM EDT [facility] ([facility]) Name Value Range Interpretation Code Description Data Melanie rce(s) Supporting Document(s) Culture Blood Laboratory test result [facility] ([facility]) _CULTURE BLOOD_ TEST [place] [address] CLIA# [id number] SEE SCANNED REPORT { PRELIM ID Date Data Source [id number] 10/19/2020 11:49:00 AM EDT [facility] [id number] Name Value Range Interpretation Code Description Data Melanie rce(s) Supporting Document(s) Bacteria identified in Blood by Culture [facility] NO GROWTH AFTER 5 DAYS ID Date Data Source [id number] 10/21/2020 06:29:00 AM EDT [facility] Name Value Range Interpretation Code Description Data Melanie rce(s) Supporting Document(s) [facility] BLOOD [facility] _CULTURE BLOOD_ TEST PERFORM ED AT [address] [address] CLIA# [id number] SEE SCANNED REPORT{ PRELIM ID Date Data Source [id number] 10/14/2020 12:04:00 AM EDT [facility] ([facility]) Name Value Range Interpretation Code Description Data Melanie rce(s) Supporting Document(s) Culture Blood Laboratory test result [facility] ([facility]) _CULTURE BLOOD_ TEST PERFORMED AT [address] [address] [facility]# [id number] SEE SCANNED REPORT { PRELIM ID Date Data Source [id number] 10/14/2020 12:01:00 AM EDT [facility] ([facility]) Name Value Range Interpretation Code Description Data Melanie rce(s) Supporting Document(s) C reactive protein [Mass/volume] in Serum or Plasma by High sensitivity method 11.76 mg/L 1.00-3.00 [facility] <content>CDC/S [...] Serum or Plasma 20 pg/mL 0-125 [facility] ([facility] ) Fibrin D-dimer [Presence] in Platelet poor plasma 0.32 ug/mL 0.27-0.5 0 [facility] ([facility]) ID Date Data Source [id number] 10/14/2020 12:01:00 AM EDT [facility] ([facility]) Name Value Range Interpretation Code Description Data Melanie rce(s) Supporting Document(s) Comprehensive [facility] Laboratory test result [facility] ([facility]) COMPREHENSIVE METABOLIC PANEL Sodium 140 meq/L 134-153 [facility]) Potassium 3.9 meq/L 3.6-5.0 [facility] Co2 31 meq/L 22-30 [facility] Chloride 102 meq/L 98-107 [facility] BUN 12 mg/dL 7-21 [facility] [facility]) Glucose 94 mg/dL 70-99 [facility] [facility]) Creatinine 0.8 mg/dL 0.7-1.5 [facility] ([facility]) Total Protein 7.0 g/dL 6.3-8.2 [facility] ([facility]) BUN/Creat 15 8-27 [facility] [facility]) Globulin 2.8 GM/DL 2.4-3.2 [facility] [facility]) Albumin 4.2 g/dL 3.9-5.0 [facility] [facility]) A/G Ratio 1.5 0.8-2.0 [facility] [facility]) Calcium 10.1 mg/dL 8.4-10.2 [facility] ([facility]) Total Bili Laboratory test result 0.2-1.3 [facility] ([facility]) Alkaline Phos 62 U/L 38-126 [facility] ([facility]) Sgot/Ast 14 U/L 5-40 [facility] [facility] SGPT/Alt 13 U/L 7-56 [facility] [facility]) Anion Gap 7.0 mmol/L 8.0-16.0 [facility] ([facility]) Non-Aa GFR Laboratory test result [facility] ([facility]) Age 65 yrs [facility] [facility]) Afr Amer GFR Laboratory test result [facility] NT ([facility]) Male GFR Interprentation 20-49 yrs >60 [...] >32 mL/min Normal ID Date Data Source [id number] 10/14/2020 12:01:00 AM EDT [facility] ([facility]) Name Value Range Interpretation Code Description Data Melanie rce(s) Supporting Document(s) Troponin T.cardiac [Mass/volume] in Serum or Plasma Laborato ry test result 0.00-0.[address] [facility] ([facility]) TROPONIN T 0.1 ng/ml Recommended as the clinical th reshold value for Troponin T. ID Date Data Source [id number] 10/14/2020 12:01:00 AM EDT [facility] ([facility]) Name Value Range Interpretation Code Description Data Melanie rce(s) Supporting Document(s) pCO2 V 56.1 mm/HG 38.0-51.0 [facility] pH V 7.37 7.32-7.43 [facility] [facility] pO2 V 39.7 mm/HG 30.0-55.0 [facility] Hco3 V 31.5 meq/L 22.0-29.0 [facility] Tco2 V 33.2 meq/L 22.0-29.0 [facility] O2 Sat V 73.4 % 40.0-85.0 [facility] [facility]) Base Excess 4.9 [facility] ([facility]) ID Date Data Source [id number] 10/14/2020 12:01:00 AM EDT [facility] ([facility]) Name Value Range Interpretation Code Description Data Melanie rce(s) Supporting Document(s) Protime 15.3 s 11.0-15.5 [facility] Inr 1.15 0.93-1.23 [facility] [facility]) \\BLDo\\INR INTERPRETATION\\BLDx\\ Therapeutic range for Coumadin and related oral a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. -International Normalized Ratio (INR): 2 .0 - 3.0 for Venous Thrombosis, Pulmonary Embolus, Tissue heart valves, Acute LA, Atrial Fibrillation, Valvular heart disease and recurrent Systemic Embolism. -International Normalized Ratio (INR): 2 .5 - 3.5 for Mechanical Prosthetic valve. ID Date Data Source [id number] 10/14/2020 12:01:00 AM EDT [facility] ([facility]) Name Value Range Interpretation Code Description Data Melanie rce(s) Supporting Document(s) Lactate [Mass/volume] in Serum or Plasma 1.4 mmol/L 0.2-2.2 [facility] ([facility]) ID Date Data Source [id number] 10/14/2020 12:01:00 AM EDT [facility] ([facility]) Name Value Range Interpretation Code Description Data Melanie rce(s) Supporting Document(s) CBC W/Automated Diff Laboratory test result [facility] ([facility]) COMPLETE BLOOD COUNT WBC 5.8 10^3/uL 4.2-11.0 [facility] ([facility]) RBC 3.92 10^6/uL 4.20-5.40 [facility] ([facility]) Hematocrit 36.6 % 37.0-47.0 [facility] Hemoglobin 11.9 g/dL 12.0-16.0 [facility] MCV 93.4 fL 81.0-101 [facility] MCH 30.4 pg 27.0-34.0 [facility] RDW 15.5 % 11.5-14.5 [facility] MCHC 32.5 g/dL 31.0-36.0 [facility] Platelets 204 10^3/uL 150-450 [facility] ([facility]) MPV 8.4 fL 7.4-10.4 [facility] Neut 43.7 % 37.0-80.0 [facility] Lymph 45.6 % 25.0-40.0 [facility] Wheeler 6.2 % 3.0-8.0 [facility] Baso 0.3 % 0.0-2.5 [facility] Eos 4.0 % 0.0-7.0 [facility] %Ig 0.2 % 0.0-0.0 [facility] %NRBC 0.0 % 0.0-0.0 [facility] #Neut 2.54 10^3/uL 2.00-6.90 [facility] ([facility]) #Lymph 2.65 10^3/uL 0.60-3.40 [facility] ([facility]) #Wheeler 0.36 10^3/uL 0.00-0.90 [facility] ([facility]) #Eos 0.23 10^3/uL 0.00-0.70 [facility] ([facility]) #Baso 0.02 10^3/uL 0.00-0.20 [facility] ([facility]) #Ig 0.01 10^3/uL 0.00-0.10 [facility] ([facility]) #NRBC 0.00 10^3/uL 0.00-0.00 [facility] ([facility]) Manual Diff Laboratory test result [facility] ([facility]) RBC Morph Laboratory test result [facility] ([facility]) ID Date Data Source [id number] 10/14/2020 02:08:00 AM EDT [facility] Value Range Interpretation Code Description Data Melanie rce(s) Supporting Document(s) BNP 20 PG/ML 0 - 125 [facility] ID Date Data Source [id number] 10/14/2020 12:40:00 AM EDT [facility] Value Range Interpretation Code Description Data Melanie rce(s) Supporting Document(s) Fibrin D-dimer FEU [Mass/volume] in Platelet poor plasma 0.32 ug /mL 0.27 - 0.50 [facility] ID Date Data Source [id number] 10/14/2020 12:39:00 AM EDT [facility] Value Range Interpretation Code Description Data Melanie rce(s) Supporting Document(s) Magnesium [Mass/volume] in Serum or Plasma 2.2 MG/DL 1.7 - 2.2 [facility] ID Date Data Source [id number] 10/14/2020 12:39:00 AM EDT [facility] Name Value Range Interpretation Code Description Data Melanie rce(s) Supporting Document(s) C reactive protein [Mass/volume] in Serum or Plasma by High sensitivity method 11.76 MG/L 1.00 - 3.00 H [facility] CDC/S HS-CRP CUT-OFF: RELATIVE RISK: <1.0 mg/L Low 1.0 - 3.0 mg/L Average >3.0 mg/L High Optimally, the average of HS-CRP results repeated two weeks apart should be used for risk assessment. ID Date Data Source [id number] 10/14/2020 12:39:00 AM EDT [facility] Name Value Range Interpretation Code Description Data Melanie rce(s) Supporting Document(s) COMPREHENSIVE METABOLIC PANEL [facility] COMPREHENSIVE METABOLIC PANEL Sodium [Moles/volume] in Serum or Plasma 140 mEq/L 134 - 153 [facility] Potassium [Moles/volume] in Serum or Plasma 3.9 mEq/L 3.6 - 5.0 [facility] Chloride [Moles/volume] in Serum or Plasma 102 mEq/L 98 - 107 [facility] Carbon dioxide, total [Moles/volume] in Serum or Plasma 31 MEQ/L 22 - 30 H [facility] Glucose [Mass/volume] in Serum or Plasma 94 MG/DL 70 - 99 [facility] BUN 12 MG[facility]DL 7 - [facility] Creatinine [Mass/volume] in Serum or Plasma 0.8 MG/DL 0.7 - 1.5 [facility] BUN/CREAT 15 8 - 27 [facility] al Protein [Mass/volume] in Serum or Plasma 7.0 G/DL 6.3 - 8.2 [facility] Albumin [Mass/volume] in Serum or Plasma 4.2 G/DL 3.9 - 5.0 [facility] Globulin [Mass/volume] in Serum by calculation 2.8 GM/DL 2.4 - 3.2 [facility] A/G RATIO 1.5 0.8 - 2.0 [facility] al Calcium [Mass/volume] in Serum or Plasma 10.1 MG/DL 8.4 - 10.2 [facility] Bilirubin.total [Mass/volume] in Serum or Plasma <0.7 MG/DL 0.2 - 1.3 [facility] Alkaline phosphatase [Enzymatic activity/volume] in Serum or Plasma 62 U/L 38 - 126 [facility] Aspartate aminotransferase [Enzymatic activity/volume] in Serum or Plasma 14 U/L 5 - 40 [facility] Alanine aminotransferase [Enzymatic activity/volume] in Seru m or Plasma 13 U/L 7 - 56 [facility] Anion gap 3 in Serum or Plasma 7.0 mmol/L 8.0 - 16.0 L [facility] AGE 65 yrs [facility] al NON-AA GFR >60 mL/min [facility] AFR AMER GFR >60 [facility] Male GFR In terprentation [...] >32 mL/min Normal ID Date Data Source [id number] 10/14/2020 12:39:00 AM T [facility] Name Value Range Interpretation Code Description Data Melanie rce(s) Supporting Document(s) TROPONIN T <0.01 NG/ML 0.00 - 0.10 [facility] ospital TROPONIN T0.1 ng/ml Recommended as the c linical threshold value forTroponin T. ID Date Data Source [id number] 10/14/2020 12:22:00 AM [facility] Name Value Range Interpretation Code Description Data Melanie rce(s) Supporting Document(s) Prothrombin time (PT) 15.3 SECONDS 11.0 - 15.5 [facility] INR in Platelet poor plasma by Coagulation assay 1.15 0.93 - 1. 23 [facility] \\BLDo\\INR INTERPRETATION\\BLDx\\ Therapeutic range for Coumadin and related oral a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. - International Normalized Ratio (INR): 2.0 - 3.0 for Venous Thrombosis, Pulmonary Embolus, Tissue heart valves, Acute LA, Atrial Fibrillation, Valvular heart disease and recurrent Systemic Embolism. -International Normalized Ratio (INR): 2.5 - 3.5 for Mechanical Prosthetic valve. ID Date Data Source [id number] 10/14/2020 12:22:00 AM EDT [facility] Name Value Range Interpretation Code Description Data Melanie rce(s) Supporting Document(s) Lactate [Moles/volume] in Serum or Plasma 1.4 MMOL/L 0.2 - 2.2 [facility] ID Date Data Source [id number] 10/14/2020 12:22:00 AM EDT [facility] Name Value Range Interpretation Code Description Data Melanie rce(s) Supporting Document(s) pH of Serum or Plasma 7.37 7.32 - 7.43 [facility] pCO2 V 56.1 mm/HG 38.0 - 51.0 H [facility] pO2 V 39.7 mm/HG 30.0 - 55.0 [facility] Bicarbonate [Moles/volume] in Venous blood 31.5 meq/L 22.0 - 29.0 H [facility] TCO2 V 33.2 meq/L 22.0 - 29.0 H [facility] Base excess in Blood by calculation 4.9 -2.0 - 2.0 H [facility] O2 SAT V 73.4 % 40.0 - 85.0 [facility] ID Date Data Source [id number] 10/14/2020 12:10:00 AM EDT [facility] Name Value Range Interpretation Code Description Data Melanie rce(s) Supporting Document(s) CBC W/AUTOMATED DIFF [facility] COMPLETE BLOOD COUNT Leukocytes [#/volume] in Blood by Automated count 5.8 10^3/uL 4.2 - 1 1.0 [facility] Erythrocytes [#/volume] in Blood by Automated count 3.92 10^6/uL 4. 20 - 5.40 L [facility] Hemoglobin [Mass/volume] in Blood 11.9 g/dL 12.0 - 16.0 L [facility] Hematocrit [Volume Fraction] of Blood by Automated count 36.6 % 3 7.0 - 47.0 L [facility] Erythrocyte mean corpuscular volume [Entitic volume] by Auto mated count 93.4 fL 81.0 - 101 [facility] Erythrocyte mean corpuscular hemoglobin [Entitic mass] by Automated count 30.4 pg 27.0 - 34.0 [facility] Erythrocyte mean corpuscular hemoglobin concentration [Mass/volume] by Automated count 32.5 g/dL 31.0 - 36.0 [facility] Erythrocyte distribution width [Ratio] by Automated count 15.5 % 11.5 - 14.5 H [facility] Platelets [#/volume] in Blood by Automated count 204 10^3/uL 150 - 45 0 [facility] Platelet mean volume [Entitic volume] in Blood by Automated count 8.4 fL 7.4 - 10.4 [facility] Neutrophils/100 leukocytes in Blood by Automated count 43.7 % 37. 0 - 80.0 [facility] Lymphocytes/100 leukocytes in Blood by Manual count 45.6 % 25.0 - 40.0 H [facility] Monocytes/100 leukocytes in Blood by Automated count 6.2 % 3.0 - 8.0 [facility] Eosinophils/100 leukocytes in Blood by Automated count 4.0 % 0.0 - 7.0 [facility] Basophils/100 leukocytes in Blood by Automated count 0.3 % 0.0 - 2.5 [facility] %IG 0.2 % 0.0 - 0.0 [facility] %NRBC 0.0 % 0.0 - 0.0 [facility] al Neutrophils [#/volume] in Blood by Automated count 2.54 10^3/uL 2.00 - 6.90 [facility] Lymphocytes [#/volume] in Blood by Automated count 2.65 10^3/uL 0.60 - 3.40 [facility] Monocytes [#/volume] in Blood by Automated count 0.36 10^3/uL 0.00 - 0.90 [facility] Eosinophils [#/volume] in Blood by Automated count 0.23 10^3/uL 0.00 - 0.70 [facility] Basophils [#/volume] in Blood by Automated count 0.02 10^3/uL 0.00 - 0.20 [facility] #IG 0.01 10^3/uL 0.00 - 0.10 [facility] #NRBC 0.00 10^3/uL 0.00 - 0.00 [facility] MANUAL DIFF NOT INDICATED [facility] RBC MORPH NOT INDICATED [facility] ID Date Data Source [id number] 10/18/2020 02:37:00 PM EDT [facility] Name Value Range Interpretation Code Description Data Melanie rce(s) Supporting Document(s) CULTURE URINE [facility] _CULTURE URINE_$$[id number]$$[id number]$$350625$$247257$$212213$$137356$$106584$$639134$$382112$$ 642811$$117622$$690851$$186536$$436975$$266957$$976040$$096855$$110976$$622894$$ 311769$$136015$$504502$$316127$$937826$$440216$$518923$$527956 -- Continued on next page --Patient: LETTIERE FABIANO Order: Page 2Culture: CULTURE URINE Status: Final ==== -- Continued on next page --Patient: LETTIERE FABIANO Order: Page 2Culture: CULTURE URINE Status: Prelim ===== -- Continued on next page --Patient: CANDIDO MARIO Order: [id number] Page 2Culture: CULTURE URINE Status: Prelim =====$$[id number]$$[id number] DATE/TIME: 10/18/2020 12:06Culture: CULTURE URINE Status: FinalIsolate 1 Enterococcus faecalis Flag: A . . . . . . .7Greater than 100,000 colony forming units per mL Previous result entered on 10/17/2020 14:24 ET Enterococcus faecalisSusceptibility results being verified. Final report to follow. Previous result entered on 10/17/2020 05:41 ET Microbiological testing to rule out the presence of possible pathogensis in progress.Urine Culture,Comprehensive: [id number] faecalis Flag: APatient: CANDIDO MARIO Order: [id number] Page 3Culture: CULTURE URINE Status: Final ISOLATE 1 Enterococcus faecalis Isolate 1Antibiotic YONG IntUnits ug/mL ----Ciprofloxacin R R . . . . . .185-9Levofloxacin R R . . . . . .65433-2Jcldswugibbysm S S . . . . . .363-2Penicillin S S . . . . . .6932-8Tetracycline R R . . . . . .496- 0Vancomycin S S . . . . . .524-9P1 Test performed by: [facility] #: [id number] [address] [place] [id number] [facility] [address]Gwygzno Director : Ross Jeffers MD NPI #:Gill Box Tender : 10/17/20.0658.XMT.SENT REF 10/18/20.0700.XMT.SENT REF 10/18/20.1437.XMT.SENT REF ID Date Data Source [id number] 10/13/2020 11:45:00 PM EDT [facility] ([facility]) Name Value Range Interpretation Code Description Data Melanie rce(s) Supporting Document(s) Urinalysis Laboratory test result [facility] ([facility]) SOURCE: Clean Catch Source Laboratory test result [facility] ([facility]) SOURCE: Clean Catch Clarity Laboratory test result [facility] ([facility]) SOURCE: Clean Catch Color Laboratory test result [facility] ([facility]) SOURCE: Clean Catch Spec [place] 1.010 1.001-1.030 [facility] ([facility]) SOURCE: Clean Catch Glucose Laboratory test result [facility] ([facility]) SOURCE: Clean Catch pH 7 5-9 [facility] [facility] SOURCE: Clean Catch Bilirubin Laboratory test result [facility] ([facility]) SOURCE: Clean Catch Ketone Laboratory test result [facility] ([facility]) SOURCE: Clean Catch Protein Laboratory test result [facility] ([facility]) SOURCE: Clean Catch Blood 25 Abnormal (applies to non-numeric res ults) [facility] ([facility]) SOURCE: Clean Catch Nitrite Laboratory test result [facility] ([facility]) SOURCE: Clean Catch Leuk Est 500 Abnormal (applies to non-numeric res ults) [facility] ([facility]) SOURCE: Clean Catch Urobilinogen Laboratory test result MEDE NT ([facility]) SOURCE: Clean Catch Microscopic Laboratory test result [facility]EN T ([facility]) SOURCE: Clean Catch WBC Laboratory test result Abnormal (applies to non -numeric results) [facility] ([facility]) SOURCE: Clean Catch RBC Laboratory test result [facility] ([facility]) SOURCE: Clean Catch Epithelial Laboratory test result Abnormal (applies to non -numeric results) [facility] ([facility]) SOURCE: Clean Catch Bacteria Laboratory test result Abnormal (applies to non -numeric results) [facility] ([facility]) SOURCE: Clean Catch ID Date Data Source [id number] 10/13/2020 11:45:00 PM EDT [facility] ([facility]) Name Value Range Interpretation Code Description Data Melanie rce(s) Supporting Document(s) Culture Urine Laboratory test result MED ENT ([facility]) SOURCE: Clean Catch ID Date Data Source [id number] 10/14/2020 12:22:00 AM EDT [facility] Name Value Range Interpretation Code Description Data Melanie rce(s) Supporting Document(s) [facility] S[facility] R [facility] COLOR yellow NORMAL: Yellow [facility] CLARITY hazy NORMAL: Clear [facility] Specific gravity of Urine by Test strip 1.010 1.001 - 1.030 [facility] pH 7 5 - 9 [facility] Glucose [Mass/volume] in Urine by Test strip NORM NORMAL: Negat [facility] Bilirubin.total [Presence] in Urine by Test strip NEG NORMAL: Negative [facility] Ketones [Presence] in Urine by Test strip NEG NORMAL: Negative [facility] Protein [Mass/volume] in Urine by Test strip NEG NORMAL: Negat [facility] Nitrite [Presence] in Urine by Test strip NEG NORMAL: Negative [facility] BLOOD 25 NORMAL: Negative [facility] Leukocyte esterase [Presence] in Urine by Test strip 500 KANE L: Negative [facility] Urobilinogen [Mass/volume] in Urine by Test strip NOR less deanna n 1.0 mg/dL [facility] MICROSCOPIC See Below [facility] WBC 7 - 10 NORMAL: NONE SEEN A [facility] Erythrocytes [#/volume] in Urine by Test strip 1 - 3 NORMAL: NON E SEEN [facility] EPITHELIAL MODERATE NORMAL: NONE SEEN A [facility] Bacteria [Presence] in Urine sediment by Light microscopy 2+ MOD NORMAL: NONE SEEN A [facility] ID Date Data Source [id number] 09/16/2020 05:22:00 AM EST [facility] ([facility]) Name Value Range Interpretation Code Description Data Melanie rce(s) Supporting Document(s) Bedside Glucose 82 mg/dL 80-115 [facility] ([facility]) ID Date Data Source [id number] 09/16/2020 04:34:00 AM EST [facility] ([facility]) Name Value Range Interpretation Code Description Data Melanie rce(s) Supporting Document(s) Urine Culture Laboratory test result [facility] ENT ([facility]) <content>FULL REPORT IN LAB NOTES (eCW [...] FOR ESBL</content>
<content></content> ID Date Data Source [id number] 09/09/2020 12:43:00 AM EST [facility] ([facility]) Name Value Range Interpretation Code Description Data Melanie rce(s) Supporting Document(s) Laboratory test finding (navigational concept) 39.0 % 38.0-51.0 [facility] ([facility]) Laboratory test finding (navigational concept) 85 mg/dL 70-105 [facility] ([facility]) Laboratory test finding (navigational concept) 4.1 meq/L 3.5-5.1 [facility] ([facility]) Laboratory test finding (navigational concept) 142 meq/L 136-145 [facility] ([facility]) Laboratory test finding (navigational concept) 5.1 mg/dL 4.5-5.3 [facility] ([facility]) Laboratory test finding (navigational concept) 106 meq/L 98-109 [facility] ([facility]) Laboratory test finding (navigational concept) 18 mg/dL 8-26 [facility] ([facility]) Laboratory test finding (navigational concept) 29.0 MM/L 23.0-27.0 [facility] Laboratory test finding (navigational concept) 0.9 mg/dL 0.6-1.3 [facility] ([facility]) ID Date Data Source [id number] 09/09/2020 12:37:00 AM EST [facility] ([facility]) Name Value Range Interpretation Code Description Data Melanie rce(s) Supporting Document(s) Lipoprotein lipase [Enzymatic activity/volume] in Serum or P lasma 141 U/L 73-393 [facility] ([facility]) ID Date Data Source [id number] 09/09/2020 12:37:00 AM EST [facility] ([facility]) Name Value Range Interpretation Code Description Data Melanie rce(s) Supporting Document(s) Ast/Sgot 10 U/L 7-37 [facility]) Alt/SGPT 16 U/L 12-78 [facility]) Alkaline Phosphatase 60 U/L 45-117 [facility] ([facility]) Bilirubin,Total 0.2 mg/dL 0.2-1.0 [facility] ([facility]) Bilirubin,Direct Laboratory test result 0.0-0.2 [facility] ([facility]) Total Protein 7.2 GM/DL 6.4-8.2 [facility] ([facility]) Albumin 3.2 GM/DL 3.2-5.2 [facility] [facility] Albumin/Globulin Ratio 0.8 1.2-2.2 [facility] ([facility]) ID Date Data Source [id number] 09/09/2020 12:37:00 AM EST [facility] ([facility]) Name Value Range Interpretation Code Description Data Melanie rce(s) Supporting Document(s) White Blood Count 5.2 10 4.0-10.0 [facility] ([facility]) Hemoglobin 11.7 g/dL 12.0-15.5 [facility] Red Blood Count 4.06 10 4.00-5.40 [facility] ([facility]) Hematocrit 38.6 % 36.0-47.0 [facility] [facility]) Mean Corpuscular Volume 95.1 fl 80.0-96.0 [facility] ([facility]) Mean Corpuscular Hemoglobin 28.8 pg 27.0-33.0 DC DENT ([facility]) Mean Corpuscular HGB Conc 30.3 g/dL 32.0-36.5 MEDE NT ([facility]) Platelet Count, Automated 180 10 150-450 [facility] NT ([facility]) Red Cell Distribution Width 14.7 % 11.5-14.5 [facility] ([facility]) Neutrophils % 50.9 % 36.0-66.0 [facility] ([facility]) Lymph % 37.5 % 24.0-44.0 [facility] [facility]) Wheeler % 7.9 % 2.0-8.0 [facility] [facility]) Eos % 3.3 % 0.0-3.0 [facility] [facility]) Baso % 0.2 % 0.0-1.0 [facility] [facility]) Immature Granulocyte % 0.2 % 0-3.0 [facility] ([facility]) Nucleated Red Blood Cell % 0.0 % 0-0 MED ENT ([facility]) Neutrophils # 2.6 10 1.5-8.5 [facility] ([facility]) Lymph # 1.9 10 1.5-5.0 [facility] [facility]) Wheeler # 0.4 10 0.0-0.8 [facility] [facility]) Eos # 0.2 10 0.0-0.5 [facility] [facility]) Baso # 0.0 10 0.0-0.2 [facility] [facility]) ID Date Data Source [id number] 08/12/2020 08:01:00 AM EST [facility] ([facility]) Name Value Range Interpretation Code Description Data Melanie rce(s) Supporting Document(s) Reflex Urine Culture Laboratory test result [facility] ([facility]) <content>FULL REPORT IN LAB NOTES (eCW [...] FOR ESBL</content>
<content></content> ID Date Data Source [id number] 08/12/2020 08:01:00 AM EST [facility] ([facility]) Name Value Range Interpretation Code Description Data Melanie rce(s) Supporting Document(s) Color, Urine RFX Laboratory test result [facility] ([facility]) Appearance, Urine RFX Laboratory test result [facility] ([facility]) PH,Urine RFX 7.0 units 5.0-9.0 [facility] ([facility]) Specific [place] Ur Auto RFX 1.008 1.002-1.035 [facility] ([facility]) Protein, Urine Auto RFX Laboratory test result [facility] Ketone, Urine Auto RFX Laboratory test result [facility] ([facility]) Glucose, Urine (Ua) Auto RFX Laboratory test result [facility] ([facility]) Bilirubin, Urine Auto RFX Laboratory test result [facility] ([facility]) Urobilinogen, Urine Auto RFX 0.2 mg/dL 0.0-2.0 [facility] ([facility]) Nitrite, Urine Auto RFX Laboratory test result [facility] ([facility]) Blood, Urine Blood RFX Laboratory test result [facility] ([facility]) Leukocyte Esterase Ur Auto RFX Laboratory test result [facility] ([facility]) WBC, Urine Auto RFX 9 /HPF 0-3 [facility] Bacteria, Urine Auto RFX Laboratory test result [facility] ([facility]) RBC, Urine Auto RFX 9 /HPF 0-3 [facility] ([facility]) Squam Epithelial Cell Ur Aurfx 5 /HPF 0-6 [facility] ([facility]) Hyaline Cast, Urine Auto RFX 0 /LPF 0-1 M EDENT ([facility]) Mucus, Urine RFX Laboratory test result [facility] ([facility]) Amorphous Sediment RFX Laboratory test result [facility] ([facility]) ID Date Data Source [id number] 08/12/2020 07:52:00 AM EST [facility] ([facility]) Name Value Range Interpretation Code Description Data Melanie rce(s) Supporting Document(s) Gats Culture (Neg Strep SCR) Laboratory test result [facility] ([facility]) FULL REPORT IN LAB NOTES (eCW and [facility] ). NEGATIVE FOR STREP PYOGENES (GROUP A) ID Date Data Source [id number] 08/12/2020 06:51:00 AM EST [facility] ([facility]) Name Value Range Interpretation Code Description Data Melanie rce(s) Supporting Document(s) Influenza A Amplification Laboratory test result [facility] ([facility]) Negative results do not preclude influen za or RSV virus infection and should not be used as the sole basis for treatment or other patient management decisions. RSV Amplification Laboratory test result [facility] ([facility]) Negative results do not preclude influen za or RSV virus infection and should not be used as the sole basis for treatment or other patient management decisions. Influenza B Amplification Laboratory test result [facility] ([facility]) Negative results do not preclude influen za or RSV virus infection and should not be used as the sole basis for treatment or other patient management decisions. Laboratory test finding (navigational concept) Laboratory test result [facility] ([facility]) A false negative result may occur [...] pathogens. DISCLAIMER: Testing was performed using the [employer] SARS-CoV-2 test. This test was developed and its performance characteristics determined by [employer]. This test has not been FDA cleared [...] or revoked sooner. ID Date Data Source [id number] 08/12/2020 06:51:00 AM EST [facility] Name Value Range Interpretation Code Description Data Melanie rce(s) Supporting Document(s) SARS coronavirus 2 RNA [Presence] in Res piratory specimen by MILAGROS with probe detection NEGATIVE [facility] This lab was ordered by [facility] a nd reported by [facility]. ID Date Data Source [id number] 07/22/2020 04:54:00 AM EST [facility] ([facility]) Name Value Range Interpretation [...] 1 S</content>
<content></content> ID Date Data Source [id number] 07/22/2020 04:54:00 AM EST [facility] Name Value Range Interpretation Code Description Data Melanie rce(s) Supporting Document(s) Color, Urine RFX Laboratory test result [facility] Appearance, Urine RFX Laboratory test result [facility] PH,Urine RFX 7.0 units 5.0-9.0 [facility] Specific [place] Ur Auto RFX 1.005 1.002-1.035 [facility] Protein, Urine Auto RFX Laboratory test result [facility] Glucose, Urine (Ua) Auto RFX Laboratory test result [facility] Urobilinogen, Urine Auto RFX 0.2 mg/dL 0.0-2.0 [facility] Ketone, Urine Auto RFX Laboratory test result [facility] Nitrite, Urine Auto RFX Laboratory test result [facility] Bilirubin, Urine Auto RFX Laboratory test result [facility] Leukocyte Esterase Ur Auto RFX Laboratory test result [facility] ([facility]) Blood, Urine Blood RFX Laboratory test result [facility] ([facility]) WBC, Urine Auto RFX 11 /HPF 0-3 [facility] ([facility]) RBC, Urine Auto RFX 1 /HPF 0-3 [facility] ([facility]) Squam Epithelial Cell Ur Aurfx 0 /HPF 0-6 [facility] ([facility]) Bacteria, Urine Auto RFX Laboratory test result [facility] ([facility]) Hyaline Cast, Urine Auto RFX 0 /LPF 0-1 M [facility] ([facility]) Mucus, Urine RFX Laboratory test result [facility] ([facility]) ID Date Data Source [id number] 07/01/2020 06:35:00 AM EST [facility] 1 OrderSheet [facility] Emergency Department [address] [place] [address] Phone #: ext- [phone] 07/01/2020 06:35 Patient: [...] rce(s) Supporting Document(s) ID Date Data Source [id number] 07/01/2020 06:35:00 AM EST [facility] 1 Medication Reconciliation Report [facility] Emergency Department [address] [place] [address] Phone #: ext- [phone] 07/01/2020 06:35 Patient: [...] the Emergency Department: 2 Medication Reconciliation Report [facility] Emergency Department [address] [place] [address] Phone #: ext [phone] 07/01/2020 06:35 Patient: FABIANO RAMIREZ Sex: F : 1955 Age: 64yNone.The following Medications were prescribed to the patient:ciprofloxacin 250 mg tablet Take 1 tablet twice a day for 7 days -- Dispense 14 tablet. Refills: 0.Substitution permitted.Pharmacy - [phone] - [address] ; [place] [address]. . -- Xavier Robertson Physician Name Value Range Interpretation Code Description Data [facility](s) Supporting Document(s) ID Date Data Source [id number] 07/01/2020 06:35:00 AM [place] [address] Medication Administration Record [facility] Emergency Department [address] [place] [address] Phone #: ext- [phone] 07/01/2020 06:35 Patient: FABIANO RAMIREZ Sex: F : 1955 Age: 64yWeight: 76.2 kgHeight/Length: 59 inBMI: 34ALLERGIES: Darvacet, Demerol, MicrodentinDate/Time Medication Administered Medication Ordered Name Value Range Interpretation Code Description Data [facility]) ID Date Data Source [id number] 07/01/2020 06:35:00 AM [facility] 1 General Instructions [facility] Emergency Department [address] [place] [address] Phone #: ext- [phone] 07/01/2020 06:35 Patient: [...] Dispense 14 tablet. Refills: 0.Substitution permitted.Pharmacy - [facility] - [address] ; [place] [address]. .Follow-up:Follow up with your healthcare provider in four days. Call for an appointment.Understanding of the discharge instructions v erbalized by patient. ADDITIONAL INFORMATION 2 General Instructions [facility] Emergency Department [address] [place] [address] Phone #: ext- [phone] 07/01/2020 06:35 Patient: [...] or burning when urinating 3 General Instructions [facility] Emergency Department [address] [place] [address] Phone #: ext- [phone] 07/01/2020 06:35 Patient: [...] Fluid loss (dehydration) Constipation Having sex 4 [facility] Emergency Department [address] [place] [address] Phone #: ext- [phone] 07/01/2020 06:35 Patient: [...] flush out your bladder. 5 General Instructions [facility] Emergency Department [address] [place] [address] Phone #: [phone]- [phone] 07/01/2020 06:35 Patient: FABIANO RAMIREZ Sex: F [...] if the results will affect your treatment.Call [phone] if any of the following occur: Trouble [...] in the outer vaginal area (labia) [employer]. [address] [place] [address], [place] [address]. All rights reserved. This information is not intended as asubstitute for professional medical care. Always follow your healthcare professional's instructions. You have been given the following additional information: Bladder Infection, Female (Adult) 6 General Instructions [facility] Emergency Department [address] [place] [address] Phone #: ext- [phone] 07/01/2020 06:35 Patient: FABIANO RAMIREZ Sex: F : 1955 Age: 64y(Electronically signed by Xavier Robertson, Physician 07/01/2020 08:41) Name Value Range Interpretation Code Description Data Melanie rce(s) Supporting Document(s) ID Date Data Source [id number] 07/01/2020 06:35:00 AM EST [facility] 1 Clinical Report - Nurses [facility] Emergency Department [address] [place] [address] Phone #: ext- [phone] 07/01/2020 06:35 Patient: FABIANO RAMIREZ Sex: F : 1955 Age: 64yTRIAGEArrived by EMS. Historian: patient.Triage time: 06:35 07/01/2020. Acuity: LEVEL 4.Chief Complaint: PAINFUL URINATION.Onset. (2 days). 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 No [...] Clements R.N.PROBLEMS: 2 Clinical Report - Nurses [facility] Emergency Department [address] [place] [address] Phone #: ext- [phone] 07/01/2020 06:35 Patient: [...] 07/01/20 Xavier Robertson, Physician.PHYSICAL ASSESSMENTTo room via ProgrammerMeetDesigner.come r.GENERAL / NEURO / PSYCH: Alert. Oriented X 4. Appears anxious.HEENT: Mucous membranes are pink.RESPIRATORY: Respirations not labored.CVS: Capillary refill less than 2 seconds.GI / : No emesis noted. Pain with urination. She has had frequency of urination. Urgency ofurination. Patient is incontinent of urine. 3 Clinical Report - Nurses [facility] Emergency Department [address] [place] [address] Phone #: ext- [phone] 07/01/2020 06:35 [id number] Sex: F : 1955 Age: 64y SKIN: [...] rce(s) Supporting Document(s) ID Date Data Source [id number] 07/01/2020 06:35:00 AM [facility] 1 Clinical Report - Physicians/[facility] Emergency Department [address] [place] [address] Phone #: ext- [phone] 07/01/2020 06:35 Patient: [...] Appendectomy. 2 Clinical Report - Physicians/Mid Levels [facility] Emergency Department [address] [place] [address] Phone #: ext- [phone] 07/01/2020 06:35 Patient: [id number] Sex: F : 1955 Age: 64y Hernia [...] turgor. 3 Clinical Report - Physicians/Mid Levels [facility] Emergency Department [address] [place] [address] Phone #: ext- [phone] 07/01/2020 06:35 Patient: [...] pain.INSTRUCTIONS 4 Clinical Report - Physicians/Mid Levels [facility] Emergency Department [address] [place] [address] Phone #: ext- [phone] 07/01/2020 06:35 Patient: [...] tablet. Refills: 0. Substitution permitted. Pharmacy - [facility] [address] [place] [address]. . Follow-up: Follow up with your healthcare provider in four days. Call for an appointment. Understanding of the discharge instructions verbalized by patient.(Electronically signed by Xavier Robertson, Physician 07/01/2020 08:41) Name Value Range Interpretation Code Description Data Melanie rce(s) Supporting Document(s) ID Date Data Source [id number] 07/01/2020 06:50:00 AM EST [facility] ([facility]) Name Value Range Interpretation Code Description Data Melanie rce(s) Supporting Document(s) Culture Urine Laboratory test result MED TRES ([facility]) <content>_CULTURE URINE_</content>
<content>^$088412</content>
<content>^^710784</content>
<content>$$526428</content>
<content>^^012352</content>
<content>$$ 943834</content>
<content>$$572000</content>
<content>$$109336</content>
<content>$$ 588973</content>
<content>$$500904</content>
<content>$$598527</content>
<content> $$638813</content>
<content>$$610585</content>
<content>$$075008</conten t>
<content>$$207889</content>
<content>$$429563</content>
<content> $$507942</content>
<content>$$553157</content>
<content>$$479884</content>
<content>$$44635 0</content>
<content>$$787003</content>
<content>$$222371</content>
<content>$$183330</content>
<content>$$298671</content>
<content>$$591430</content>
<content>$$ 067341</content>
<content>$$574145</content>
<content>$$116337</content>
<content> ^^260972</content>
<content>$$238953</content>
<content>$$791032</conten t>
<content>$$523568</content>
<content></content>
<content>-- Continued on next page --</content>
<content>Patient: CANDIDO MARIO Order: [id number] Page 2</content>
<content>Culture: CULTURE URINE Status: Final</laron nt>
<content> < /content>
<content></content>
<content></content>
<content>-- Continued on next page --</content>
<content>Patient: CANDIDO MARIO Order: [id number] Page 2</content>
<content>Culture: CULTURE URINE Status: Prelim</content>
<content> < /content>
<content></content>
<content></content>
<content>-- Continued on next page --</content>
<content>Patient: CANDIDO FABIANO Order: [id number] Page 2</content>
<content>Culture: CULTURE URINE Status: Prelim</content>
<content> < /content>
<content></content>
<content>$$116752</content>
<content>$ $[id number]</content>
<content></content>
<content>REPORTED DATE/TIME: 07/05/2020 11:06</content>
<content>Culture: CULTURE [...]
<content></content>
<content></content>
<content> Patient: CANDIDO MARIO Order: [id number] Page 3</content>
<content>Culture: CULTURE URINE Status: Final</content>
[...] S S . . . . . .98102-3</content>
<content>Gentamicin S S . . . . . .267-5</content>
<content>Imipenem S S . . . . . .279-0</content>
<content>Levofloxacin S S . . . . . .06040-7</content>
<content>Meropenem S S . . . . . .6652-2</content>
<content>Nitrofurantoin S S . . . . . .363-2</content>
<content>Piperacillin/Tazobactam S S . . . . . .412-7</content>
<content>Tetracycline S S . . . . . .496-0</content>
<content>Tobramycin S S . . . . . .508-2</content>
<content>Trimethoprim/Sulfa S S . . . . . .516-5</content>
<content></content>
<content>P1 Test performed by: [facility] Janel [place] #: [id number]</content>
<content>[address]</content>
<content>[id number]</content>
<content>[place] [address]</content>
<content>Db2 Developer : Ross Jeffers MD NPI #:</content>
<content>Gill Box Tender :</content>
<content>07/03/20.1551.XMT.SENT REF</content>
<content>07/04/20.1209.XMT.SENT REF</content>
<content>07/05/20.1201.XMT.SENT REF</content>
<content></content>
<content></content> ID Date Data Source [id number] 07/01/2020 06:50:00 AM EST [facility] ([facility]) Name Value Range Interpretation Code Description Data Melanie rce(s) Supporting Document(s) Urinalysis Laboratory test result [facility] URINALYSIS Source [facility] SOURCE: Clean Catch Color Laboratory test result [facility] ([facility]) SOURCE: Clean Catch Clarity Laboratory test result [facility] ([facility]) SOURCE: Clean Catch Spec [place] 1.010 1.001-1.030 [facility] SOURCE: Clean Catch pH 7 5-9 [facility] [facility] SOURCE: Clean Catch Glucose Laboratory test result [facility] ([facility]) SOURCE: Clean Catch Bilirubin Laboratory test result [facility] ([facility]) SOURCE: Clean Catch Ketone Laboratory test result [facility] ([facility]) SOURCE: Clean Catch Protein Laboratory test result [facility] SOURCE: Clean Catch Nitrite [facility] SOURCE: Clean Catch Blood 150 Abnormal (applies to non-numeric res ults) [facility] ([facility]) SOURCE: Clean Catch Leuk Est 500 Abnormal (applies to non-numeric res ults) [facility] SOURCE: Clean Catch Urobilinogen Laboratory test result [facility] ([facility]) SOURCE: Clean Catch Microscopic Laboratory test result [facility] SOURCE: Clean Catch WBC Laboratory test result Abnormal (applies to non -numeric results) [facility] SOURCE: Clean Catch RBC Laboratory test result Abnormal (applies to non -numeric results) [facility] ([facility]) SOURCE: Clean Catch Epithelial Laboratory test result Abnormal (applies to non -numeric results) [facility] SOURCE: Clean Catch Bacteria Laboratory test result Abnormal (applies to non -numeric results) [facility] SOURCE: Clean Catch ID Date Data Source [id number] 07/05/2020 12:01:00 PM EST [facility] Name Value Range Interpretation Code Description Data Melanie rce(s) Supporting Document(s) CULTURE URINE [facility] _CULTURE URINE_$$[id number]$$941536$$600206$$943603$$497937$$573893$$654758$$764716$$508141$$ 177150$$465043$$342802$$786979$$953150$$226159$$004137$$415004$$159880$$591384$$ 997387$$944006$$511613$$114290$$488696$$834880$$772281$$121138 -- Continued on next page --Patient: LETTIERE FABIANO Order: [id number] Page 2Culture: CULTURE URINE Status: Final ==== -- Continued on next page --Patient: LETTIERE FABIANO Order: [id number] Page 2Culture: CULTURE URINE Status: Prelim ===== -- Continued on next page --Patient: LETTIERE FABIANO Order: [id number] Page 2Culture: CULTURE URINE Status: Prelim =====$$[id number]$$[id number] DATE/TIME: 07/05/2020 11:06Culture: CULTURE URINE Status: FinalIsolate [...] presence of possible pathogensis in progress.Urine Culture,Comprehensive: V4Facojhxvqar coli Flag: APatient: CANDIDO MARIO Order: [id number] Page 3Culture: CULTURE URINE Status: Final ====ISOLATE [...] S S . . . . . .09630-7Xvnmuthceo S S . . . . . .267-5Imipenem S S . . . . . .279- 0Levofloxacin S S . . . . . .92075-2Rrcuqzvfd S S . . . . . .6652-2Nitrofurantoin S S . . . . . .363-2Piperacillin/Tazobactam S S . . . . . .412-7Tetracycline S S . . . . . .496-0Tobramycin S S . . . . . .508-2Trimethoprim/Sulfa S S . . . . . .516-5P1 [facility] performed [facility]: [id number] [address] [id number] [facility] [id number] Director : Ross Jeffers MD NPI #:Gill Box Tender : 07/03/20.1551.XMT.SENT REF 07/04/20.1209.XMT.SENT REF 07/05/20.1201.XMT.SENT REF ID Date Data Source [id number] 07/01/2020 07:08:00 AM EST [facility] Name Value Range Interpretation Code Description Data Melanie rce(s) Supporting Document(s) [facility] yellow NORMAL: Yellow [facility] CLARITY clear NORMAL: Clear [facility] Specific gravity of Urine by Test strip 1.010 1.001 - 1.030 [facility] pH 7 5 - 9 [facility] Glucose [Mass/volume] in Urine by Test strip NORM NORMAL: Negat [facility] Bilirubin.total [Presence] in Urine by Test strip NEG NORMAL: Negative [facility] Ketones [Presence] in Urine by Test strip NEG NORMAL: Negative [facility] Protein [Mass/volume] in Urine by Test strip NEG NORMAL: Negat [facility] Nitrite [Presence] in Urine by Test strip POS NORMAL: Negative [facility] BLOOD 150 NORMAL: Negative [facility] Leukocyte esterase [Presence] in Urine by Test strip 500 KANE L: Negative [facility] Urobilinogen [Mass/volume] in Urine by Test strip NOR less deanna n 1.0 mg/dL [facility] MICROSCOPIC See Below [facility] WBC 5 - 7 NORMAL: NONE SEEN A [facility] Erythrocytes [#/volume] in Urine by Test strip 7 - 10 NORMAL: NON E SEEN A [facility] EPITHELIAL MODERATE NORMAL: NONE SEEN A [facility] Bacteria [Presence] in Urine sediment by Light microscopy 3+ LARGE NORMAL: NONE SEEN A [facility] ID Date Data Source [id number] 06/08/2020 02:10:00 PM EST [facility] ([facility]) Name Value Range Interpretation Code Description Data Melanie rce(s) Supporting Document(s) Erythrocytes [#/volume] in Blood by Automated count 4.16 x10*6/UL 4.2 0-6.30 [facility] ([facility]) Leukocytes [#/volume] in Blood by Automated count 5.4 x10*3/UL 4.1-10 .9 [facility] ([facility]) Hemoglobin [Mass/volume] in Blood 12.5 g/dL 12.0-18.0 [facility] ([facility]) Hematocrit [Volume Fraction] of Blood by Automated count 37.8 % 3 7.0-51.0 [facility] ([facility]) MCHC 33.0 g/dL 31.0-38.0 [facility] [facility] MCH 30.1 pg 26.0-32.0 [facility] [facility] MCV 91.0 fL 80.0-97.0 [facility] [facility] Platelets [#/volume] in Blood by Automated count 219 x10*3/UL 140-440 [facility] ([facility]) Erythrocyte distribution width [Ratio] by Automated count 14.4 % 11.6-13.7 [facility] ([facility]) MPV 6.9 FL 7.8-11.0 [facility] Lymph % 27.9 % 10.0-58.5 [facility] [facility] Neut % 65.6 % 37.0-92.0 [facility] [facility] Mid % 6.5 % 1.7-9.3 [facility] [facility] Neut # 3.5 x10*3/UL 2.0-7.8 [facility] ([facility]) Lymph # 1.5 x10*3/UL 0.6-4.1 [facility] ([facility]) Mid # 0.4 x10*3/UL 0.1-0.6 [facility] ([facility]) ID Date Data Source [id number] 05/04/2020 01:59:00 PM EDT [facility] ([facility]) Name Value Range Interpretation Code Description Data Melanie rce(s) Supporting Document(s) Triglyceride [Mass/volume] in Serum or Plasma 186 mg/dL 30-150 [facility] ([facility]) Cholesterol [Mass/volume] in Serum or Plasma 180 mg/dL 131-200 [facility] ([facility]) Cholesterol in HDL [Mass/volume] in Serum or Plasma 55 mg/dL 35-60 [facility] ([facility]) Cholesterol in LDL [Mass/volume] in Serum or Plasma by calcu lation 88 CALC 50-159 [facility] ([facility]) ID Date Data Source [id number] 05/04/2020 01:59:00 PM EDT [facility] ([facility]) Name Value Range Interpretation Code Description Data Melanie rce(s) Supporting Document(s) Glucose [Mass/volume] in Serum or Plasma 86 mg/dL 74-99 [facility] ([facility]) 100-125 mg/dL PRE-DIABETES/FASTING >126 mg/dL DIABETES/FASTING Urea nitrogen [Mass/volume] in Serum or Plasma 14 mg/dL 7-18 [facility] ([facility]) Creatinine 1.0 mg/dL 0.6-1.3 [facility] Sodium [Moles/volume] in Serum or Plasma 144 meq/L 136-145 [facility] ([facility]) Chloride [Moles/volume] in Serum or Plasma 105 meq/L 98-107 [facility] ([facility]) Potassium [Moles/volume] in Serum or Plasma 4.0 meq/L 3.5-5.1 [facility] ([facility]) Calcium [Mass/volume] in Serum or Plasma 9.9 mg/dL 8.5-10.1 [facility] ([facility]) Carbon dioxide, total [Moles/volume] in Serum or Plasma 36 meq/L 21 -32 [facility] ([facility]) Total Bilirubin 0.2 mg/dL 0.2-1.0 [facility] ([facility]) Alkaline phosphatase isoenzyme [Units/volume] in Serum or Pl asma 55 mg/dL 46-116 [facility] ([facility]) Aspartate aminotransferase [Enzymatic activity/volume] in Serum or Plasma 23 U/L 15-37 [facility] ([facility] ) Alanine aminotransferase [Enzymatic activity/volume] in Seru m or Plasma 26 U/L 12-78 [facility] ([facility]) Albumin [Mass/volume] in Serum or Plasma 3.7 g/dL 3.4-5.0 [facility] ([facility]) Proteinase 3 Ab [Units/volume] in Serum 7.7 g/dL 6.4-8.2 [facility] ([facility]) Glomerular filtration rate/1.73 sq M pre dicted among blacks [Volume Rate/Area] in Serum or Plasma by Creatinine-based formula (MDRD) Laboratory test result [facility] ([facility]) <content>CHRONIC KIDNEY DISEASE STAGING PER NKF</content>
<content></content>
<content>STAGE I & II GFR >= 60 NORMAL TO MILDLY DECREASED</content>
<content>STAGE III GFR 30-59 MODERATELY DECREASED</content>
<content>STAGE IV GFR 15-29 SEVERELY DECREASED</content>
<content>STAGE V GFR <15 VERY LITTLE GFR LEFT</content>
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
<content></content> A/G Ratio 0.93 CALC 1.00-1.90 [facility] [facility] Glomerular filtration rate/1.73 sq M pre dicted among non-blacks [Volume Rate/Area] in Serum or Plasma by Creatinine-based formula (MDRD) 56 mL/min [facility] ID Date Data Source [id number] 05/04/2020 01:59:00 PM EDT [facility] ([facility]) Name Value Range Interpretation Code Description Data Melanie rce(s) Supporting Document(s) Leukocytes [#/volume] in Blood by Automated count 5.8 x10*3/UL 4.1-10 .9 [facility] ([facility]) Hemoglobin [Mass/volume] in Blood 12.1 g/dL 12.0-18.0 [facility] ([facility]) Erythrocytes [#/volume] in Blood by Automated count 4.06 x10*6/UL 4.2 0-6.30 [facility] ([facility]) MCV 91.6 fL 80.0-97.0 [facility] [facility] Hematocrit [Volume Fraction] of Blood by Automated count 37.2 % 3 7.0-51.0 [facility] ([facility]) MCHC 32.6 g/dL 31.0-38.0 [facility] [facility] MCH 29.8 pg 26.0-32.0 [facility] [facility] Erythrocyte distribution width [Ratio] by Automated count 14.4 % 11.6-13.7 [facility] ([facility]) Platelets [#/volume] in Blood by Automated count 240 x10*3/UL 140-440 [facility] ([facility]) MPV 7.1 FL 7.8-11.0 [facility] [facility] Lymph % 26.4 % 10.0-58.5 [facility] [facility] Mid % 7.1 % 1.7-9.3 [facility] [facility] Neut % 66.5 % 37.0-92.0 [facility] [facility] Neut # 3.8 x10*3/UL 2.0-7.8 [facility] ([facility]) Mid # 0.5 x10*3/UL 0.1-0.6 [facility] ([facility]) Lymph # 1.5 x10*3/UL 0.6-4.1 [facility] ([facility]) Procedure Social History No Information Vital Signs ID Date Data Source UNK Name Value Range Interpretation Code Description Data Source(s) Systolic blood pressure 134 mm[Hg] 134 mm[Hg] M [facility] ([facility]) Diastolic blood pressure 84 mm[Hg] 84 mm[Hg] [facility] ([facility]) Heart rate 87 /min 87 /min [facility] ([facility]) Oxygen saturation in Arterial blood by Pulse oximetry 93 % 93 % [facility] ([facility]) Body temperature 97.0 [degF] 97.0 [degF] [facility] ([facility]) Body height 59 [in_i] 59 [in_i] [facility] ([facility]) 4'11" Body weight 152.00 [lb_av] 152.00 [lb_av] [facility]) Body mass index (BMI) [Ratio] 30.7 kg/m2 30.7 k g/m2 [facility] ([facility]) [place] body weight 100 [lb_av] 100 [lb_av] [facility]) Body weight 68.947 kg 68[address] [facility] ([facility]) Body surface area Derived from formula 1.64 m2 [address] [facility] ([facility]) Systolic blood pressure 122 mm[Hg] 122 mm[Hg] M [facility] ([facility]) Diastolic blood pressure 80 mm[Hg] 80 mm[Hg] [facility] ([facility]) Heart rate 102 /min 102 /min [facility] ([facility]) Body height 59 [in_i] 59 [in_i] [facility] ([facility]) 4'11" Body weight 157.00 [lb_av] 157.00 [lb_av] [facility] ([facility]) Oxygen saturation in Arterial blood by Pulse oximetry 97 % 97 % [facility] ([facility]) Body mass index (BMI) [Ratio] 31.7 kg/m2 31.7 k g/m2 [facility] ([facility]) Body mass index (BMI) [Ratio] 31.5 kg/m2 31.5 k g/m2 [facility] ([facility]) Heart rate 94 /min 94 /min [facility] Body height 59 [in_i] 59 [in_i] [facility] ([facility]) 4'11" Body weight 156.00 [lb_av] 156.00 [lb_av] [facility] ([facility]) Oxygen saturation in Arterial blood by Pulse oximetry 96 % 96 % [facility] ([facility]) Systolic blood pressure 116 mm[Hg] 116 mm[Hg] [facility] ([facility]) Diastolic blood pressure 72 mm[Hg] 72 mm[Hg] [facility] ([facility]) Body mass index (BMI) [Ratio] 31.3 kg/m2 31.3 k g/m2 [facility] ([facility]) Heart rate 94 /min 94 /min [facility] Body height 59 [in_i] 59 [in_i] [facility] ([facility]) 4'11" Body weight 155.00 [lb_av] 155.00 [lb_av] [facility] ([facility]) Oxygen saturation in Arterial blood by Pulse oximetry 96 % 96 % [facility] ([facility])
--- OUTSIDE RECORDS SUMMARY | 2021-07-01 17:05 | CCD ---
Author Author [facility] Organization [facility] Address Unknown Phone Unavailable Care Team Providers Care Customer Engagement Specialist Name Role Phone MARK, F XAVIER DO [...] XAVIER DO Unavailable Unavailable Hospital Lab, Area [place] Unavailable Unavailable Serge Echeverria MD Unavailable Unavailable [...] is protected by Article 27-F of the [facility] Public Health law. If you continue you may have access to information: Regarding HIV / AIDS; Provided by facilities licensed or operated by the [facility] Office of Mental Health; or Provided by the [facility] Office for People With Developmental Disabilities. If such information is present, then the following [facility] mandated warning applies: This information has [...] [place] Unknown Female Problem [facility] Unknown Female Problem [facility] ([facility]) Unknown Female Problem [facility] ([facility]) Encounters Encounter Providers Location Date Indications Data Source(s ) Emergency Attender: Serge Echeverria MDConsultant: Daisy CHENEY 03/04/2021 11:38:00 AM EDT - 03/04/2021 02:32:00 PM EDT [facility] Patient discharged. Emergency Attender: Serge Echeverria MDConsultant: Daisy RODRIGUEZ ANP 02/17/2021 07:58:00 AM EDT - 02/17/2021 10:25:00 AM EDT [facility] Patient discharged. Emergency Attender: XAVIER ROBERTSON DOConsultant: Daisy CHENEY 12/10/2020 05:37:00 AM EDT - 12/10/2020 07:15:00 AM EDT [facility] Patient discharged. Emergency Attender: KAREN SAUCEDO MDConsultant: Susan RODRIGUEZ ANP 12/01/2020 12:20:00 PM EDT - 12/01/2020 04:50:00 PM EDT [facility] Patient discharged. Outpatient Attender: [facility] 10/14/2020 12:0 4:00 AM EDT [facility] Emergency Attender: KAREN SAUCEDO MDConsultant: Susan RODRIGUEZ ANP 10/13/2020 11:01:00 PM EDT - 10/14/2020 04:24:00 AM EDT [facility] Patient discharged. Outpatient Attender: Daisy Craig 05/2021 01:40:00 PM EST [facility] ([facility] ) Emergency Attender: HENRI BOYLE MDConsultant: Daisy TREVINO ANP 07/01/2020 06:35:00 AM EST - 07/01/2020 07:46:00 AM EST [facility] Patient discharged. Outpatient Attender: Daisy Craig 01:45:00 PM EST [facility] ([facility] ) Outpatient Attender: Daisy Craig 02:45:00 PM EDT [facility] ([facility] ) Immunizations Vaccine Date Status Description Data Source(s) COVID-19 VACCINE [facility] 04/11/2021 12:00:00 AM EDT completed [facility] Vaccine Series Complete: YESThis Data wa s Submitted to [facility] Via [facility]. COVID-19 VACCINE Pfizer 03/21/2021 12:00:00 AM EDT completed [facility] Vaccine Series Complete: NOThis Data was Submitted to [facility]. Medications Medication Brand Name Start Date Product [...] DAILY DOSE = 9 TABLETS SOLD: 06/25/2021 [facility] 23 X 36 " 06/24/2021 12:00:00 AM EST pad 300 APPLY TO BED NEEDED FOR UP TO 10 A DAY APPLY TO BED NEEDED FOR UP TO 10 A DAY SOLD: 06/25/2021 [facility] 5 mg 06/23/2021 12:00:00 AM EST tablet 180 TAKE ONE TABLET BY MOUTH TWICE A DAY TAKE ONE TABLET BY MOUTH TWICE A DAY SOLD: 06/25/2021 [facility] 125 mg 06/23/2021 12:00:00 AM EST tablet,chewable 100 CHEW 1 TABLET BY MOUTH AFTER EACH MEAL AND BEFORE BED CHEW 1 TABLET BY MOUTH AFTER EACH MEAL A ND BEFORE BED SOLD: 06/25/2021 [facility] 25 mg 06/22/2021 12:00:00 AM EST tablet 90 TAKE ONE TABLET BY MOUTH EVERY DAY TAKE ONE TABLET BY MOUTH EVERY DAY SOLD: 06/25/2021 [facility] Atropine Sulfate 0.025 MG / [...] MOUTH TWICE A DAY NEEDED SOLD: 06/19/2021 [facility] 0.5 mg 06/05/2021 12:00:00 AM EST [...] MOUTH THREE TIMES A DAY SOLD: 06/05/2021 [facility] 300 mg 05/28/2021 12:00:00 AM [...] DOSE = 2 TABLETS SOLD: 01/09/2021 [facility] Mecl[facility]ine Hydrochloride 25 MG Oral Tablet [...] MOUTH THREE TIMES A DAY SOLD: 01/16/2021 [facility] Calcium Carbonate 500 MG Chewable Tablet Calcium Antacid 11/07/2020 12:00:00 AM EDT active [facility] ([facility]) 30 mg 11/07/2020 12:00:00 [...] DAY FOR 5 DAYS SOLD: 11/03/2020 [facility] DIAPER,BRIEF,ADULT, DISPOSABLE 10/31/2020 12:00:00 AM EDT [...] 09/20/2020 12:00:00 AM EST ORAL active [facility]) 2.5-0.025 mg 09/12/2020 12:00:00 AM [...] HCL 09/05/2020 12:00:00 AM EST active [facility] 1 gram 09/05/2020 12:00:00 AM EST [...] DAILY DOSE = 9 TABLETS SOLD: 01/23/2021 [facility] 1 gram 09/05/2020 12:00:00 AM EST tablet 120 TAKE THREE TABLETS BY MOUTH TWICE A DAY MAY INCREASE DURING EPISODES OF EXTREME DIARRHEA MAXIMUM DAILY DOSE = 9 TABLETS TAKE THREE TABLETS BY MOUTH TWICE A DAY MAY INCREASE DURING EPISODES OF EXTREME DIARRHEA MAXIMUM DAILY DOSE = 9 TABLETS SOLD: 05/22/2021 [facility] 1 gram 09/05/2020 12:00:00 AM EST tablet 120 TAKE THREE TABLETS BY MOUTH TWICE A DAY MAY INCREASE DURING EPISODES OF EXTREME DIARRHEA MAXIMUM DAILY DOSE = 9 TABLETS TAKE THREE TABLETS BY MOUTH TWICE A DAY MAY INCREASE DURING EPISODES OF EXTREME DIARRHEA MAXIMUM DAILY DOSE = 9 TABLETS SOLD: 03/07/2021 [facility] 1 gram 09/05/2020 12:00:00 AM EST tablet 180 TAKE THREE TABLETS BY MOUTH TWICE A DAY MAY INCREASE DURING EPISODES OF EXTREME DIARRHEA MAXIMUM DAILY DOSE = 9 TABLETS TAKE THREE TABLETS BY MOUTH TWICE A DAY MAY INCREASE DURING EPISODES OF EXTREME DIARRHEA MAXIMUM DAILY DOSE = 9 TABLETS SOLD: 11/28/2020 [facility] olanzapine 5 MG Oral Tablet OLANZAPINE 09/03/2020 12:00:00 AM EST tabl et 60 TAKE ONE TABLET BY MOUTH THREE TIMES A DAY TAKE ONE TABLET BY MOUTH THREE TIMES A DAY SOLD: 02/06/2021 [facility] 25 mg 09/03/2020 12:00:00 AM [...] 10 A DAY SOLD: 08/29/2020 [facility] 23 X 36 " 07/19/2020 [...] TO 10 A DAY SOLD: 07/19/2020 [facility] olanzapine 5 MG Oral Tablet [...] 8 HOURS NEEDED FOR DIZZINESS SOLD: 10/10/2020 [facility] Meclizine Hydrochloride 25 MG Oral Tablet MECLIZINE HCL 05/30/2020 12:00:00 AM EST tablet 90 TAKE ONE TABLET BY MOUTH VICKI RY 8 HOURS NEEDED FOR DIZZINESS TAKE ONE TABLET BY MOUTH EVERY 8 HOURS NEEDED FOR DIZZINESS SOLD: 09/05/2020 [facility] Meclizine Hydrochloride 25 MG Oral Tablet [...] TABLET BY MOUTH EVERY DAY SOLD: 05/09/2020 [facility] 250 mg 05/07/2020 12:00:00 AM EDT [...] 05/01/2020 12:00:00 AM EDT completed [facility] ([facility]) 2 mg 05/01/2020 12:00:00 AM EDT [...] BY MOUTH TWICE A DAY SOLD: 08/29/2020 [facility] 30 mg 04/18/2020 12:00:00 AM EDT [...] DAILY DOSE = 9 TABLETS SOLD: 07/28/2020 [facility] Insurance Providers Payer name Policy type / Coverage type Policy ID Covered republican ID Covered republican's relationship to laura Policy Laura Plan Information [facility] Primary [id number] Self 0 [id number] [facility] Medicare Primary [id number] Self [id number] Medicare [facility] Medicare Primary [id number] Self 4 [id number] Medicare [facility] Medicare Primary [id number] Self [id number] Medicare Natl Govt Servic Medicare Primary [id number] Self [id number] Medicare - [place] Medicare Primary [id number] Self [id number] Medicare Natl Govt Servic Medicare Primary [id number] Self Medicare Natl Govt Servic Medicare Primary [id number] Self [id number] Medicare - [place] Medicare Primary [id number] Self [id number] Medicare Natl Govt Servic Medicare Primary [id number] Self 4 [id number] Medicare Natl Govt Servic Medicare Primary [id number] Self 0 [id number] Medicare Natl Govt Servic Medicare Primary [id number] Self 4 [id number] BS [facility] Medigap Part B [id number] Self MEDICARE [id number] SP [id number] BS [place] Medigap Part B [id number] Self [id number] BS [place] Commercial [id number] Self [id number] MEDICARE [id number] SP [id number] Medicare [place] Primary [id number] Self Medicaid [place] Medig[place] Part B [id number] Self MEDICAID [id number] SP [id number] Medicaid Medigap Part B [id number] 0.0 Self [id number] MEDICAID M [id number] S [id number] MEDICAID [id number] SP [id number] ANSI-Medicare Part B [id number] ANSI-Medicaid [id number] ANSI-Medicare Part B [id number] ANSI-Medicaid [id number] ANSI-Medicare Part B [id number] ANSI-Medicaid [id number] ANSI-Medicare Part B [id number] ANSI-Medicaid [id number] ANSI-Medicaid [id number] ANSI-Medicare Part B [id number] MEDICARE [id number] SP [id number] ANSI-Medicare Part B [id number] ANSI-Medicaid [id number] Medicaid Medigap Part B [id number] 0.0 Self [id number] Medicaid [place] Medigap Part B [id number] Self [id number] ANSI-Medicaid [id number] ANSI-Medicare Part B [id number] ANSI-Medicare Part B [id number] ANSI-Medicaid [id number] MEDICARE C [id number] S [id number] A Medicaid Medigap Part B [id number] 0.0 Self [id number] Medicaid Medigap Part B [id number] 0.0 Self [id number] Medicaid Medigap Part B [id number] 0.0 Self [id number] Medicaid Medigap Part B [id number] 0.0 Self [id number] [facility] C [id number] S [id number] MEDICARE [id number] SP [id number] [place] Medigap Part B [id number] Self Medicaid Medigap Part B [id number] Self 1 1 [place] Medigap Part B [id number] Self [id number] [place] Medigap Part B [id number] Self [place] 306/806 NOT ACTIVE SP NOT ACTIVE SELF PAY UNAVAILABLE SP UNAVAILA BLE [place] 306/806 [id number] SP [id number] [place] BCBS S [id number] S [id number] [place] PPO 302/307 [id number] SP [id number] [facility] MEDICAID [id number] SP [id number] Y [id number] MEDICARE PART A -O/P [id number] 18 [id number] MEDICAID -O/P EMERGENCY ROOM [id number] [place] [id number] SP [id number] MEDICARE C [id number] S [id number] MEDICARE PART A -O/P [id number] 18 [id number] MEDICARE PART A -O/P [id number] Medicaid Medigap Part B [id number] Self [id number] [place] Medig[place] Part B [id number] Self [id number] Medicaid Medigap Part B [id number] 0.0 Self [id number] [place] Medig[place] Part B [id number] 5585.0 Self [id number] [place] Medigap Part B [id number] Self [id number] MEDICARE [id number] A75 Medicaid Medigap Part B [id number] 0.0 Self [id number] ANSI-Medicare Part B [id number] ANSI-Medicaid [id number] ANSI-Medicaid [id number] ANSI-Medicare Part B [id number] ANSI-Medicaid [id number] ANS-Medicare Part B [id number] Problems, Conditions, and Diagnoses Code Display Name Description Problem Type Effective Dates Data Source(s) D55955 Presence of unspecified artificial hip j oint Presence of unspecified artificial hip joint Diagnosis [facility] Personal history of nicotine dependence Personal history of nicotine dependence Diagnosis 03/04/2021 11:38:00 AM [facility] 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 Diagnosis 03/04/2021 11:38:00 AM [facility] E119 Type 2 diabetes mellitus without complic ations Type 2 diabetes mellitus without complications Diagnosis 03/04/2021 11:38:[address] [facility] I10 Essential (primary) hypertension Essential (primary) h ypertension Diagnosis 03/04/2021 11:38:00 AM [facility] K5900 Constipation, unspecified Constipation, unspecified Di agnosis 03/04/2021 11:38:00 AM [facility] N3000 Acute cystitis without hematuria Acute cystitis without hematuria Diagnosis 02/17/2021 07:58:00 AM [facility] I54877 Pressure ulcer of other site, unspecifie d stage Pressure ulcer of other site, unspecified stage Diagnosis 02/17/2021 07:58:00 AM [facility] U31878 Pain in right foot Pain in right foot Diagnosis 07:58:00 AM [facility] G8929 Other chronic pain Other chronic pain Diagnosis 05:37:00 AM [facility] H18664 Pain in right ankle and joints of right foot Pain in right ankle and joints of right foot Diagnosis 12/10/2020 05:37:00 AM [facility] R300 Dysuria Dysuria Diagnosis 12/10/2020 05:37:00 AM ED [facility] R1312 Dysphagia, oropharyngeal phase Dysphagia, oropharyngea l phase Diagnosis 12/01/2020 12:20:00 PM EDT [facility] J029 Acute pharyngitis, unspecified Acute pharyngitis, unsp ecified Diagnosis 12/01/2020 12:20:00 PM EDT [facility] G63120 Unspecified asthma, uncomplicated Unspecified as thma, uncomplicated Diagnosis 10/13/2020 11:01:00 PM EDT [facility] M419 Scoliosis, unspecified Scoliosis, unspecified Diagnosi s 10/13/2020 11:01:00 PM EDT [facility] N3001 Acute cystitis with hematuria Acute cystitis with ilda turia Diagnosis [facility] Cough Cough Diagnosis 10/13/2020 11:01:00 PM ED [facility] S10739 Personal history of urinary (tract) infe ctions Personal history of urinary (tract) infections Diagnosis 07/01/2020 06:35:00 AM [facility] Z7902 skilled nursing (current) use of antithromboti cs/antiplatelets skilled nursing (current) use of antithrombotics/antiplatelets Diagnosis 020 06:35:00 AM [facility] Surgeries/Procedures No Information Results ID Date Data Source [id number] 05/19/2021 11:06:00 AM EDT [facility] Name Value Range Interpretation Code Description Data Melanie rce(s) Supporting Document(s) SARS COVID ANTIGEN NEGATIVE [facility] This lab was ordered by [facility] a nd reported by [facility]. ID Date Data Source [id number] 04/22/2021 08:18:00 AM EDT [facility] Name Value Range Interpretation Code Description Data Melanie rce(s) Supporting Document(s) SARS-CoV-2 (COVID 19) NEGATIVE - SARS-CoV-2 (COVID19) [facility] This lab was ordered by [facility] a nd reported by [facility]. ID Date Data Source [id number] 03/04/2021 11:38:00 AM EDT [facility] 1 OrderSheet [facility] Emergency Department [address] [place] [address] Phone #: ext- [phone] 03/04/2021 11:37 [id number] Sex: F : 1955 Age: 65yWEIGHT:77.1 kg (S) HEIGHT:59 inches (S) BMI:34.4ALLERGIES: Darvacet, Demerol, MicrodentinCHIEF COMPLAINT: abd pain, constipationDIAGNOSIS: ConstipationLAB ORDERSOrder Description Priority Entered Acknowledged InitialedDIAGNOSTIC STUDY ORDERSOrder Description Priority Entered Acknowledged InitialedAbdomen Multiview STAT 13:02 03/04/2021 13:03 [place](Oxygen?(No)) Anita Fuentes appeals officer, 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 (14:35 03/04/2021)][Electronically signed by Anita Fuentes (07:30 03/05/2021)][Electronically locked by Tyler Ladd R.N. (14:35 03/04/2021)] Name Value Range Interpretation Code Description Data Melanie rce(s) Supporting Document(s) ID Date Data Source [id number] 03/04/2021 11:38:00 AM EDT [facility] 1 Medication Reconciliation Report [facility] Emergency Department [address] [place] [address] Phone #: ext- [phone] 03/04/2021 11:37 Patient: [...] the Emergency Department: 2 Medication Reconciliation Report [facility] Emergency Department [address] [place] [address] Phone #: ext- [phone] 03/04/2021 11:37 Patient: FABIANO RAMIREZ Sex: F : 1955 Age: 65yNone.The following Medications were prescribed to the patient:None. Name Value Range Interpretation Code Description Data Melanie rce(s) Supporting Document(s) ID Date Data Source [id number] 03/04/2021 11:38:00 AM EDT [facility] 1 Medication Administration Record [facility] Emergency Department [address] [place] [address] Phone #: ext- [phone] 03/04/2021 11:37 Patient: FABIANO RAMIREZ Sex: F : 1955 Age: 65yWeight: 77.1 kgHeight/Length: 59 inBMI: 34.4ALLERGIES: Darvacet, Microdentin, DemerolDate/Time Medication Administered Medication Ordered Name Value Range Interpretation Code Description Data Melanie rce(s) Supporting Document(s) ID Date Data Source [id number] 03/04/2021 11:38:00 AM EDT [facility] 1 General Instructions [facility] Emergency Department [address] [place] [address] Phone #: ext- [phone] 03/04/2021 11:37 Patient: [...] much. [facility]Warnings: Further evaluation is necessary. It [...] by patient. ADDITIONAL INFORMATION 2 General Instructions [facility] Emergency Department [address] [place] [address] Phone #: ext- [phone] 03/04/2021 11:37 Patient: [...] aging, work, and travel 3 General Instructions [facility] Emergency Department [address] [place] [address] Phone #: ext- [phone] 03/04/2021 11:37 [id number] Sex: F : 1955 Age: 65y Frequent [...] your healthcare provider first. 4 General Instructions [facility] Emergency Department [address] [place] [address] Phone #: ext- [phone] 03/04/2021 11:37 Patient: [...] have more tests or see a specialist.Call [phone] if any of these occur: Trouble breathing Stiff, rigid abdomen that is severely painful to touch Confusion Fainting or loss of consciousness Rapid heart rate Chest painWhen to seek medical adviceCall your healthcare provider right away if any of these occur: Fever of 100.4F (38C) or higher, or as directed by your healthcare provider 5 General Instructions [facility] Emergency Department [address] [place] [address] Phone #: ext- [phone] 03/04/2021 11:37 Patient: FABIANO RAMIREZ Sex: F : 1955 Age: 65y Failure to resume normal bowel movements Pain in your abdomen or back gets worse Nausea or vomiting Swelling in your abdomen Blood in the stool Black, tarry stool Involuntary weight loss Weakness [id number] [employer]. [address] [place] [address], [place] [address]. All rights reserved. This information is not [...] high in fiber 6 Genera l Instructions [facility] Emergency Department [address] [place] [address] Phone #: ext- [phone] 03/04/2021 11:37 Patient: [...] green peas, celery, eggplant, potatoes, spinach, broccoli, [place] sprouts, winter squash, carrots, cauliflower, soybeans, lentils, and fresh and dried beans of all kinds. Other. Popcorn; any spicesIf you have diverticulosisThere aren't any specific foods to avoid if you have diverticulosis. But each person is different. Theremay be some foods that make your symptoms worse. Keep track and don't eat foods that make youfeel worse. [id number] [employer]. [address] [place] [address]. All rights reserved. This information is not intended as asubstitute for professional medical care. Always follow your health healthcare receptionist's instructions. You have been given the following additional information: Constipation (Adult) High-Fiber Diet(Electronically signed by EMRE Puga 03/05/2021 07:30) Name Value Range Interpretation Code Description Data Melanie rce(s) Supporting Document(s) ID Date Data Source [id number] 03/04/2021 11:38:00 AM EDT [facility] 1 Clinical Report - Nurses [facility] Emergency Department [address] [place] [address] Phone #: ext- [phone] 03/04/2021 11:37 [id number] Sex: F : 1955 Age: 65yTRIAGEArrived by EMS. Historian: patient. Unaccompanied.Triage time: late entry - 11:34 03/04/2021. Acuity: LEVEL 3.Chief Complaint: ABDOMINAL PAIN and CONSTIPATION.Alert. No acute distress.Onset. (1 weeks ago). ( Pt hasnt had a normal BM in about a week. Pt was seen at [facility] yesterday andwas unable to tolerate a CT scan. She had a small BM 2 days ago. Pt has c/o of abd pain with a burningsensation.). She has had constipation.Treatment OFFICE REP:None.SEPSIS SCREEN: SIRS SCREEN NEGATIVE. SEPSIS SCREEN NEGATIVE. [...] Ladd R.N.Darvacet. 2 Clinical Report - Nurses [facility] Emergency Department [address] [place] [address] Phone #: ext- [phone] 03/04/2021 11:37 Patient: FABIANO RAMIREZ Sex: F [...] "Do you 3 Clinical Report - Nurses [facility] Emergency Department [address] [place] [address] Phone #: ext- [phone] 03/04/2021 11:37 Patient: [...] Ladd R.N. 4 Clinical Report - Nurses [facility] Emergency Department [address] [place] [address] Phone #: ext- [phone] 03/04/2021 11:37 Patient: FABIANO RAMIREZ Sex: F [...] F. Pain level now 5/10. --14:19 03/04/21 [place] appeals officerJulio Mendieta ER Tech1 late entry - 14:32 03/04/21. Departure time: 14:32 03/04/2021. [place] Coma Scale: 15- eyes open- spontaneous (4); best verbal response- oriented (5); best motor response- obeys commands (6). Condition at departure: improved and stable. No learning barriers present. Discharge instructions provided and reviewed with the patient. Reviewed warnings. Reviewed referral to a primary care physician for followup. Patient verbalized understanding. Written instructions provided in [place]. The patient was discharged by the physician assistant sales director. She was discharged home and unaccompanied at time of discharge. She left ambulatory and via taxi. 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 --14:34 03/04/21 So Ladd R.N.Locked/Released at 03/04/2021 14:35 by So Ladd R.N. Name Value Range Interpretation Code Description Data Melanie rce(s) Supporting Document(s) ID Date Data Source [id number] 03/04/2021 11:38:00 AM EDT [facility] 1 Clinical Report - Physicians/Mid Levels [facility] Emergency Department [address] [place] [address] Phone #: ext- [phone] 03/04/2021 11:37 [id number] Sex: F : 1955 Age: 65y Time [...] bed and bathroom." She was seen at [facility] yesterday but was unable to tolerate [...] seen recently by a health care provider ([facility] ED yesterday).REVIEW OF SYSTEMSNo chills, fatigue, [...] Repair. 2 Clinical Report - Physicians/Mid Levels [facility] Emergency Department [address] [place] [address] Phone #: ext- [phone] 03/04/2021 11:37 Patient: FABIANO RAMIREZ Sex: F [...] 3. 3 Clinical Report - Physicians/Mid Levels [facility] Emergency Department [address] [place] [address] Phone #: ext- [phone] 03/04/2021 11:37 Patient: FABIANO RAMIREZ Sex: F : 1955 Age: 65yLABS, X-RAYS, AND EKGLaboratory Tests: Laboratory tests have been ordered, with results reviewed and considered in themedical decision making process. Abdomen Multiview: (OLE: 03/04/2021 13:02) ( MsgRcvd 03/04/2021 15:03) Final results Exam ABDOMEN MULTIPLE VIEW [facility] [address] [place] [address] PHONE: [phone] FAX: [phone] Name .................. : CANDIDO MARIO Acct Number.................. : [id number] ROOM. ................. : TR-03 MR Number ................... : [id number] Stay type ............. : E/R Discharge Date......... ... : Admit Date ......... : 03/04/21 Admit Phys .................... : IRMA Stallings Date of ....... : 1955 Family Phys ................... : JENNY GARCIA Phone .................. : [phone] Age ................................ : 65 Film# .................. .:[id number] Sex ................................. : F Unsigned transcriptions are preliminary reports and do not represent a medical or legal document ABDOMEN MULTIPLE VIEW 20203 COMPLETE:03/04/21 13:02 [id number] Reason(s): constipation, lower abd pain ABDOMINAL RADIOGRAPH [...] REC 4 Clinical Report - Physicians/Mid Levels [facility] Emergency Departmen t [address] [place] [address] Phone #: ext- [phone] 03/04/2021 11:37 Patient: FABIANO RAMIREZ Sex: F [...] packet. 5 Clinical Report - Physicians/Mid Levels [facility] Emergency Department [address] [place] [address] Phone #: ext- [phone] 03/04/2021 11:37 Patient: FABIANO RAMIREZ Sex: F : 1955 Age: 65y Motrin IB Oral : 400, prn. Potassium Chloride Oral : Packet 20 meq, 2x a day. Promethazine HCl Oral : Tablet 25 mg, prn. Sudafed Oral : 60 mg 2x a day. ZyPREXA Oral : Tablet 10 mg, at bedtime. Follow-up: Follow up with your [facility] provider Daisy Rodriguez NP Friday. Call for an appointment. Reason for referral: evaluation and treatment. Summary of care provided to patient via paper. Understanding of the discharge instructions verbalized by patient.(Electronically signed by EMRE Puga 03/05/2021 07:30) Name Value Range Interpretation Code Description Data Melanie rce(s) Supporting Document(s) ID Date Data Source [id number] 03/04/2021 03:03:00 PM EDT [facility] [address] [place] [address] PHONE: [phone] FAX: [phone] Name .................. : CANDIDO MARIO Acct Number.................. : [id number] ROOM. ................. : TR-03 MR Number ................... : [id number] Stay type ............. : E/R Discharge Date......... ... : Admit Date ......... : 03/04/21 Admit Phys .................... : IRMA Stallings Date of ....... : 1955 Family Phys ................... : JENNY GARCIA Phone .................. : [phone] Age ................................ : 65 Film# .................. .:[id number] Sex ................................. : F Unsigned transcriptions are preliminary reports and do not represent a medical or legal document ABDOMEN MULTIPLE VIEW 06432 COMPLETE:03/04/21 13:02 02804 Reason(s): constipation, lower abd pain ABDOMINAL RADIOGRAPH [...] EMERGENCY DEPT via modem Copy for: [facility] REC Page 1 of 1 Name Value Range Interpretation Code Description Data Melanie rce(s) Supporting Document(s) ID Date Data Source [id number] 02/19/2021 09:47:00 AM EDT [facility] [address] [place] [address] PHONE: [phone] FAX: [phone] Name .................. : CANDIDO MARIO Acct Number.................. : [id number] ROOM. ................. : TR- MR Number ................... : [id number] Stay type ............. : E/R Discharge Date......... ... : 02/17/21 Admit Date ......... : 02/17/21 Admit Phys .................... : IRMA Stallings Date of ....... : 1955 Family Phys ................... : JENNY NAN Phone .................. : [phone] Age ................................ : 65 Film# .................. .:[id number] Sex ................................. 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 No other abnormalities. 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 Electronically Reviewed and Signed By NIGEL LEVINE MD , 02/19/21 09:47, [facility] Transcribe Initials: SHANNAN , Transcribe Date: 02/17/21 11:42, Dictation Date: Copy for: EMERGENCY DEPT via [facility] Copy for: 710 MED REC DISCHARGED Page 1 of 1 Name Value Range Interpretation Code Description Data Melanie rce(s) Supporting Document(s) ID Date Data Source [id number] 02/17/2021 07:58:00 AM EDT [facility] 1 OrderSheet [facility] Emergency Department [address] [place] [address] Phone #: ext- [phone] 02/17/2021 07:54 Patient: FABIANO RAMIREZ Sex: F : 1955 Age: 65yWEIGHT:67.8 kg (M) HEIGHT:59 inches (S) BMI:30.2ALLERGIES: Darvacet, Demerol, MicrodentinCHIEF COMPLAINT: painDIAGNOSIS: CystitisLAB ORDERSOrder Description Priority Entered Acknowledged InitialedUrinalysis (Clean STAT 08:02/17/2021 08:57 NareshCatch) Serge Echeverria ; Thomas RNCulture, Urine STAT 08:02/17/2021 08:57 Naresh(Urine, Clean Serge Echeverria ; Thomas VAZQUEZCatch)DIAGNOSTIC STUDY ORDERSOrder Description Priority Entered Acknowledged InitialedToes Right STAT 08:02/17/2021 08:33 Naresh(Oxygen?(No)) Serge Echeverria ; Thomas VAZQUEZ Reason for Study: PainMEDICATION/IV/DRIP/FLUID ORDERSOrder Description Priority Entered Acknowledged InitialedGENERAL ORDERSOrder Description Priority Entered Acknowledged InitialedSplint (Aircast) R 10:13 02/17/2021 10:15 Serge Resendez ; appeals officerJulio Mendieta Tech1[Electronically signed by Naresh Guzman RN (10:02/17/2021)][Electronically signed by Serge Echeverria (11:03 02/17/2021)][Electronically locked by Naresh Guzman RN (10:02/17/2021)] Name Value Range Interpretation Code Description Data Melanie rce(s) Supporting Document(s) ID Date Data Source [id number] 02/17/2021 07:58:00 AM EDT [facility] 1 Medication Reconciliation Report [facility] Emergency Department [address] [place] [address] Phone #: ext- [phone] 02/17/2021 07:54 Patient: [...] the Emergency Department: 2 Medication Reconciliation Report [facility] Emergency Department [address] [place] [address] Phone #: ext- [phone] 02/17/2021 07:54 Patient: FABIANO RAMIREZ Sex: F : 1955 Age: 65yNone.The following Medications were prescribed to the patient:Bactrim DS 800 mg-160 mg tablet Take 1 tablet twice a day for 7 days -- Dispense 14 tablet. Refills: 0.Substitution permitted.Pharmacy - [facility] - [address] [facility] ; [place] [address]. . -- Serge Echeverria Name Value Range Interpretation Code Description Data Melanie e(s) Supporting Document(s) ID Date Data Source [id number] 02/17/2021 07:58:00 AM EDT [facility] 1 Medication Administration Record [facility] Emergency Department [address] [place] [address] Phone #: ext- [phone] 02/17/2021 07:54 Patient: FABIANO RAMIREZ Sex: F : 1955 Age: 65yWeight: 67.8 kgHeight/Length: 59 inBMI: 30.2ALLERGIES: Darvacet, Demerol, MicrodentinDate/Time Medication Administered Medication Ordered Name Value Range Interpretation Code Description Data [facility](s) Supporting Document(s) ID Date Data Source [id number] 02/17/2021 07:58:00 AM EDT [facility] 1 General Instructions [facility] Emergency Department [address] [place] [address] Phone #: ext- [phone] 02/17/2021 07:54 Patient: [...] Dispense 14 tablet. Refills: 0.Substitution permitted.Pharmacy - [facility] - [address] [facility] ; [place] [address]. .Follow-up:Follow up with your healthcare provider.Understanding of the discharge instructions verbalized by patient. 2 General Instructions [facility] Emergency Department [address] [place] [address] Phone #: ext- [phone] 02/17/2021 07:54 Patient: FABIANO RAMIREZ Sex: F [...] a bladder infection are: 3 General Instructions [facility] Emergency Department [address] [place] [address] Phone #: ext- [phone] 02/17/2021 07:54 Patient: [...] Fluid loss (dehydration) Constipation 4 General Instructions [facility] Emergency Department [address] [place] [address] Phone #: ext- [phone] 02/17/2021 07:54 Patient: [...] can irritate your bladder. 5 General Instructions [facility] Emergency Department [address] [place] [address] Phone #: ext- [phone] 02/17/2021 07:54 Patient: [...] swelling in the outer vaginal area (labia) [id number] [employer]. [address] [place] [address]. All rights reserved. This information is not intended as asubstitute for professional medical care. Always follow your healthcare professional's instructions. 6 General Instructions [facility] Emergency Department [address] [place] [address] Phone #: ext- [phone] 02/17/2021 07:54 Patient: FABIANO RAMIREZ Sex: F : 1955 Age: 65yYou have been given the following additional information:Bladder Infection, Female (Adult)(Electronically signed by Serge Echeverria 02/17/2021 11:03) Name Value Range Interpretation Code Description Data Melanie rce(s) Supporting Document(s) ID Date Data Source [id number] 02/17/2021 07:58:00 AM EDT [facility] 1 Clinical Report - Nurses [facility] Emergency Department [address] [place] [address] Phone #: [phone] ikp- [phone] 02/17/2021 07:54 Patient: FABIANO RAMIREZ Sex: F : 1955 Age: 65yTRIAGEArrived by EMS. Historian: patient.Acuity: LEVEL 4.Chief Complaint: RIGHT LOWER EXTREMITY PAIN.No injury occurred. Onset. (2 weeks ago). ( Pt states she has had right lower extremity pain for about thepast 2 weeks, she was seen here more than a couple weeks ago and an air splint was applied, she went [facility] yesterday and was released, she reports continued pain and now feels nausea).Treatment OFFICE REP:None.EMS Treatment OFFICE REP:EMS treatment verbally communicated and report reviewed. See report.SEPSIS SCREEN: SIRS SCREEN NEGATIVE. SEPSIS SCREEN NEGATIVE. No suspected or confirmedsigns of infection present.ARRON COMA SCORE: 15- eyes open- spontaneous (4); best verbal response- oriented (5); bestmotor response- obeys commands (6). --08:02 02/17/21 Naresh Guzman RN07:57 02/17/21. BP: 123/81. MAP: 95. HR: 101. RR: 18. O2 saturation: 94%. Temp: 97.9 F. Pain levelnow: 10/10. --08:02 02/17/21 Naresh Guzman RN.Weight: 67.8 kg [...] a day. 2 Clinical Report - Nurses [facility] Emergency Department [address] [place] [address] Phone #: ext- [phone] 02/17/2021 07:54 Patient: [...] Guzman RN. 3 Clinical Report - Nurses [facility] Emergency Department [address] [place] [address] Phone #: jfe- [phone] 02/17/2021 07:54 Patient: FABIANO RAMIREZ Sex: F [...] Patient verbalized understanding. Written instructions provided in Kittitian. The patient was discharged by the physician. [...] rce(s) Supporting Document(s) ID Date Data Source [id number] 02/17/2021 07:58:00 AM EDT [facility] 1 Clinical Report - Physicians/Mid Levels [facility] Emergency Department [address] [place] [address] Phone #: ext- [phone] 02/17/2021 07:54 Patient: FABIANO RAMIREZ Sex: F [...] No trauma. She states the ED at [facility] just wraps her toes, she thinks they wrapped it too tight. She wears a air cast and walks with a walker at home.). Patient denies an injury. Similar symptoms previously. Recent medical care: The patient was seen recently in the emergency department. ( Multiple times at [facility] for urinary complaints).REVIEW OF SYSTEMSNo chest [...] inspection. 2 Clinical Report - Physicians/Mid Levels [facility] Emergency Department [address] [place] [address] Phone #: ext- [phone] 02/17/2021 07:54 Patient: [...] UA done over last several months at [facility]. Not currently on antibiotics 3 Clinical Report - Physicians/Mid Levels [facility] Emergency Department [address] [place] [address] Phone #: ext- [phone] 02/17/2021 07:54 Patient: [...] tablet. Refills: 0. Substitution permitted. Pharmacy - [facility] - [address] [facility] ; [place] [address]. . 4 Clinical Report - Physicians/Mid Levels [facility] Emergency Department [address] [place] [address] Phone #: ext- [phone] 02/17/2021 07:54 Patient: FABIANO RAMIREZ Sex: F : 1955 Age: 65y Follow-up: Follow up with your healthcare provider. Understanding of the discharge instructions verbalized by patient.(Electronically signed by Serge Echeverria 02/17/2021 11:03) Name Value Range Interpretation Code Description Data Melanie rce(s) Supporting Document(s) ID Date Data Source [id number] 02/20/2021 07:22:00 AM EDT [facility] Name Value Range Interpretation Code Description Data Melanie rce(s) Supporting Document(s) CULTURE URINE [facility] _CULTURE URINE_$$[id number]$$[id number]$$564553$$212611$$895287$$886474$$369667$$410096$$746469$$ 415571$$568055$$264903$$897520$$832143$$707640$$636780$$611198$$344534$$549422$$ 644145$$258443$$428039$$205776$$432579$$319163$$560231$$568061 -- Continued on next page --Patient: CANDIDO MARIO Order: [id number] Page 2Culture: CULTURE URINE Status: Final ====$$[id number]$$[id number] DATE/TIME: 02/19/2021 08:06Culture: CULTURE URINE Status: FinalUrine Culture,Comprehensive: S9Evglq urogenital flora25,000-50,000 colony forming units per mLP1 Test performed by: [facility] CLIA #: [id number] [address] [place] [id number] [facility] [id number] Director : Ross Jeffers MD NPI #:Energy Rater : 02/20/21.0722.XMT.[email or web address] REF ID Date Data Source [id number] 02/17/2021 09:31:00 AM EDT [facility] Name Value Range Interpretation Code Description Data Melanie rce(s) Supporting Document(s) URINALYSIS [facility] URINALYSIS SOURCE R [facility] COLOR yellow NORMAL: Yellow [facility] CLARITY hazy NORMAL: Clear [facility] Specific gravity of Urine by Test strip 1.015 1.001 - 1.030 [facility] pH 8 5 - 9 [facility] Glucose [Mass/volume] in Urine by Test strip NORM NORMAL: Negat gabe [facility] Bilirubin.total [Presence] in Urine by Test strip NEG NORMAL: Negative [facility] Ketones [Presence] in Urine by Test strip NEG NORMAL: Negative [facility] Protein [Mass/volume] in Urine by Test strip NEG NORMAL: Negat gabe [facility] Nitrite [Presence] in Urine by Test strip NEG NORMAL: Negative [facility] BLOOD 25 NORMAL: Negative A [facility] LEUK EST 100 NORMAL: Negative [facility] Urobilinogen [Mass/volume] in Urine by Test strip NOR less deanna n 1.0 mg/dL [facility] MICROSCOPIC See Below [facility] ital WBC 10 - 15 NORMAL: NONE SEEN A [facility] Erythrocytes [#/volume] in Urine by Test strip 15 - 20 NORMAL: NON E SEEN A [facility] EPITHELIAL MODERATE NORMAL: NONE SEEN A [facility] Bacteria [Presence] in Urine sediment by Light microscopy 1+ SMALL NORMAL: NONE SEEN [facility] Amorphous sediment [Presence] in Urine sediment by Light yong roscopy 2+ NORMAL: NONE SEEN [facility] Crystals [type] in Urine sediment by Light microscopy See Below [facility] TRIPLE PHOS 3+ NORMAL: NONE SEEN A [facility] ID Date Data Source [id number] 12/10/2020 05:37:00 AM EDT [facility] 1 OrderSheet [facility] Emergency Department [address] [place] [address] Phone #: ext- [phone] 12/10/2020 05:37 Patient: FABIANO RAMIREZ Sex: F : 1955 Age: 65yWEIGHT:68.0 kg (S) HEIGHT:59 inches (S) BMI:30.3ALLERGIES: Kristina Peguero MicrodentinCHIEF COMPLAINT: dysuriaDIAGNOSIS: Urinary tract infectious diseaseLAB ORDERSOrder Description Priority Entered Acknowledged InitialedUrinalysis (Clean STAT 05:49 12/10/2020 05:49 Park Lerner Laura Laura R.NFreya Rollins; Per protocol; Xavier Robertson PhysicianCulture, Urine STAT 06:58 12/10/2020 07:04 Yann(Urine, Clean Xavier Oliveira R.N.Catch) Physician;DIAGNOSTIC STUDY ORDERSOrder [...] rce(s) Supporting Document(s) ID Date Data Source [id number] 12/10/2020 05:37:00 AM EDT [facility] 1 Medication Reconciliation Report [facility] Emergency Department [address] [place] [address] Phone #: ext- [phone] 12/10/2020 05:37 Patient: [...] Emergency Department: 2 Medication Re conciliation Report [facility] Emergency Department [address] [place] [address] Phone #: ext- [phone] 12/10/2020 05:37 Patient: FABIANO RAMIREZ Sex: F : 1955 Age: 65yMacrobid [PO] PO 100 mg, administered: 07:11 12/10/2020The following Medications were prescribed to the patient:Macrobid 100 mg capsule Take 1 capsule twice a day for 7 days -- Dispense 14 capsule. Refills: 0.Substitution permitted.Pharmacy - [facility] - [address] [facility] ; [place] [address]. . -- Xavier Robertson, Physician Name Value Range Interpretation Code Description Data Melanie rce(s) Supporting Document(s) ID Date Data Source [id number] 12/10/2020 05:37:00 AM EDT [facility] 1 Medication Administration Record [facility] Emergency Department [address] [place] [address] Phone #: [phone] hcc- [phone] 12/10/2020 05:37 Patient: FABIANO RAMIREZ Sex: F : 1955 Age: 65yWeight: 68.0 kgHeight/Length: 59 inBMI: 30.3ALLERGIES: Darvacet, Demerol, Microdentin Date/Time Medication Administered Medication OrderedGiven MACROBID [PO] (NITROFURANTOIN Macrobid PO 100 mg (NOW)07:11 12/10/2020 MONOHYD MACRO)Roxanne Lerner R.N. Dose: 100 mg PO Name Value Range Interpretation Code Description Data Melanie rce(s) Supporting Document(s) ID Date Data Source [id number] 12/10/2020 05:37:00 AM EDT [facility] 1 General Instructions [facility] Emergency Department [address] [place] [address] Phone #: ext- [phone] 12/10/2020 05:37 Patient: [...] Dispense 14 capsule. Refills: 0.Substitution permitted.Pharmacy - [facility] - [address] [facility] ; [place] [address]. .Follow-up:Follow up with your healthcare provider in three days for staple removal. Call for an appointment. Summaryof care provided to patient via paper.Understanding of the discharge instructions verbalized. ADDITIONAL INFORMATIONBladder Infection, Female (Adult) 2 General Instructions [facility] Emergency Department [address] [place] [address] Phone #: ext- [phone] 12/10/2020 05:37 Patient: [...] Urgent need to urinate 3 General Instructions [facility] Emergency Department [address] [place] [address] Phone #: ext- [phone] 12/10/2020 05:37 Patient: [...] a diaphragm for controlTreatment 4 General Instructions [facility] Emergency Department [address] [place] [address] Phone #: ext- [phone] 12/10/2020 05:37 Patient: [...] your healthcare provider.Follow-up care 5 General Instructions [facility] Emergency Department [address] [place] [address] Phone #: ext- [phone] 12/10/2020 05:37 Patient: [...] swelling in the outer vaginal area (labia) [employer]. [address] [place] [address]. All rights reserved. This information is not intended as asubstitute for professional medical care. Always follow your healthcare professional's instructions. You have been given the following additional information: Bladder Infection, Female (Adult) 6 General Instructions [facility] Emergency Department [address] [place] [address] Phone #: ext- [phone] 12/10/2020 05:37 Patient: FABIANO RAMIREZ Sex: F : 1955 Age: 65y(Electronically signed by Xavier Robertson, Physician 12/10/2020 07:04) Name Value Range Interpretation Code Description Data Melanie rce(s) Supporting Document(s) ID Date Data Source [id number] 12/10/2020 05:37:00 AM EDT [facility] 1 Clinical Report - Nurses [facility] Emergency Department [address] [place] [address] Phone #: ext- [phone] 12/10/2020 05:37 Patient: [...] LEG PAIN.Alert. No acute distress.This started today.Treatment OFFICE REP:None.SEPSIS SCREEN: SIRS SCREEN NEGATIVE. SEPSIS SCREEN NEGATIVE. [...] Noam Carney.AllergiesDarvacet.Demerol. 2 Clinical Report - Nurses [facility] Emergency Department [address] [place] [address] Phone #: ext- [phone] 12/10/2020 05:37 [id number] Sex: F : 1955 Age: 65y Microdentin. [...] band on patient. To treatment room. --05:43 5/23/21 Noam Carney.PHYSICAL ASSESSMENTTo room via stretcher.GENERAL / NEURO / PSYCH: Alert. Oriented X 4. Appears in no acute distress.HEENT: Pupils equal, round and reactive to light. No facial asymmetry noted. Mucous membranes are 3 Clinical Report - Nurses [facility] Emergency Department [address] [place] [address] Phone #: ext- [phone] 12/10/2020 05:37 Patient: [...] Patient verbalized understanding. Written instructions provided in Kittitian. The patient was discharged home and accompanied [...] rce(s) Supporting Document(s) ID Date Data Source [id number] 12/10/2020 05:37:00 AM EDT [facility] 1 Clinical Report - Physicians/Mid Levels [facility] Emergency Department [address] [place] [address] Phone #: ext- [phone] 12/10/2020 05:37 Patient: [...] surgery. 2 Clinical Report - Physicians/Mid Levels [facility] Emergency Department [address] [place] [address] Phone #: ext- [phone] 12/10/2020 05:37 Patient: FABIANO RAMIREZ Sex: F [...] process. 3 Clinical Report - Physicians/Mid Levels [facility] Emergency Department [address] [place] [address] Phone #: ext- [phone] 12/10/2020 05:37 Patient: [...] arise. 4 Clinical Report - Physicians/Mid Levels [facility] Emergency Department [address] [place] [address] Phone #: ext- [phone] 12/10/2020 05:37 Patient: FABIANO RAMIREZ Sex: F : 1955 Age: 65y Prescription Medications: Macrobid 100 mg capsule Take 1 capsule twice a day for 7 days -- Dispense 14 capsule. Refills: 0. Substitution permitted. Pharmacy - [facility] - [address] [place] [address]. . Follow-up: Follow up with your healthcare provider in three days for staple removal. Call for an appointment. Summary of care provided to patient via paper. Understanding of the discharge instructions verbalized.(Electronically signed by Xavier Robertson, Physician 12/10/2020 07:04) Name Value Range Interpretation Code Description Data Melanie rce(s) Supporting Document(s) ID Date Data Source [id number] 12/14/2020 09:42:00 AM EDT [facility] [facility] Name Value Range Interpretation Code Description Data Melanie rce(s) Supporting Document(s) CULTURE URINE [facility] spital _CULTURE URINE_$$[id number]$$846444$$933654$$064597$$999324$$095711$$473722$$987907$$231465$$ 056222$$973169$$038312$$064427$$149807$$805167$$002915$$408043$$578308$$307899$$ 065174$$942553$$729003$$960285$$686202$$725825$$406819$$064822 -- Continued on next page --Patient: CANDIDO MARIO Order: Page 2Culture: CULTURE URINE Status: Final ==== -- Continued on next page --Patient: CANDIDO MARIO Order: Page 2Culture: CULTURE URINE Status: Prelim =====$$[id number]$$[id number] DATE/TIME: 12/14/2020 09:06Culture: CULTURE URINE Status: FinalIsolate [...] on 12/13/2020 05:37 ET Escherichia coliUrine Culture,Comprehensive: K7Hhyglfcawbc coli Flag: APatient: CANDIDO MARIO Order: [id number] Page 3Culture: CULTURE URINE Status: Final ISOLATE [...] S S . . . . . .28960-9Nzjqoklfoh S S . . . . . .267-5Imipenem S S . . . . . .279-0Levofloxacin R R . . . . . .05690- 8Meropenem S S . . . . . .6652-2Nitrofurantoin S S . . . . . .363-2Piperacillin/Tazobactam S S . . . . . .412-7Tetracycline S S . . . . . .496-0Tobramycin S S . . . . . .508-2 Trimethoprim/Sulfa S S . . . . . .516-5P1 Test performed by: Rose HURTADO #: [id number] [address] [place] [address] Avenue [id number] [facility] [address]Nvcumpn Director : Ross Jeffers MD NPI #:Energy Rater : 12/13/20.1334.XMT.SENT REF 12/14/20.0942.XMT.SENT REF ID Date Data Source [id number] 12/10/2020 06:34:00 AM EDT [facility] Name Value Range Interpretation Code Description Data Melanie rce(s) Supporting Document(s) [facility] S[facility] R [facility] COLOR yellow NORMAL: Yellow [facility] CLARITY cloudy NORMAL: Clear [facility] Specific gravity of Urine by Test strip 1.015 1.001 - 1.030 [facility] pH 8 5 - 9 [facility] Glucose [Mass/volume] in Urine by Test strip NORM NORMAL: Negat [facility] Bilirubin.total [Presence] in Urine by Test strip NEG NORMAL: Negative [facility] Ketones [Presence] in Urine by Test strip NEG NORMAL: Negative [facility] Protein [Mass/volume] in Urine by Test strip NEG NORMAL: Negat [facility] Nitrite [Presence] in Urine by Test strip NEG NORMAL: Negative [facility] BLOOD 10 NORMAL: Negative [facility] Leukocyte esterase [Presence] in Urine by Test strip 500 KANE L: Negative [facility] Urobilinogen [Mass/volume] in Urine by Test strip NOR less deanna n 1.0 mg/dL [facility] MICROSCOPIC See Below [facility] WBC 20 - 30 NORMAL: NONE SEEN A [facility] Erythrocytes [#/volume] in Urine by Test strip 3 - 5 NORMAL: NON E SEEN [facility] EPITHELIAL MODERATE NORMAL: NONE SEEN A [facility] Bacteria [Presence] in Urine sediment by Light microscopy 2+ MOD NORMAL: NONE SEEN A [facility] Amorphous sediment [Presence] in Urine sediment by Light yong roscopy 2+ NORMAL: NONE SEEN [facility] ID Date Data Source [id number] 12/06/2020 09:09:00 AM EDT [facility] [address] [place] [address] PHONE: [phone] FAX: [phone] Name .................. : CANDIDO MARIO Acct Number.................. : [id number] ROOM. ................. : VT-05 Number ................... : [id number] Stay type ............. : E/R Discharge Date......... ... : 12/01/20 Admit Date ......... : 12/01/20 [facility] Date of ....... : 1955 Family Phys ................... : [employer] Phone .................. : [phone] Age ................................ : 65 Film# .................. .:[id number] Sex ................................. : F Unsigned transcriptions are preliminary reports and do not represent a medical or legal document CT ST NECK W/O CONTRAST [id number] COMPLETE:12/01/20 15:07 RUFUS 64518 Reason(s): evaluate for foreign body as she [...] and further evaluation, Page 1 of 2 [facility] [address] [place] [address] PHONE: [phone] FAX: [phone] Name .................. : CANDIDO MARIO Acct Number.................. : [id number] ROOM. ................. : VT-05 Number ................... : [id number] Stay type ............. : E/R Discharge Date......... ... : 12/01/20 Admit Date ......... : 12/01/20 [facility] .................... [facility] Date of ....... : Family Phys ................... : JENNY GARCIA Phone .................. : [phone] Age ................................ : 65 Film# .................. .:[id number] Sex ................................. : F Unsigned transcriptions are preliminary reports and do not represent a medical or legal document CT ST NECK W/O CONTRAST 23815 COMPLETE:12/01/20 15:07 RUFUS 24718 Reason(s): evaluate for foreign body as she [...] By Alf Glass MD , 12/06/20 09:09, [facility] Transcribe Initials: SSR, Transcribe Date: 12/05/20 10:47, Dictation Date: Copy for: EMERGENCY DEPT via modem Copy for: 710 MED REC DISCHARGED Page 2 of 2 Name Value Range Interpretation Code Description Data Melanie rce(s) Supporting Document(s) ID Date Data Source [id number] 12/01/2020 12:20:00 PM EDT [facility] 1 OrderSheet [facility] Emergency Department [address] [place] [address] Phone #: ext- [phone] 12/01/2020 12:07 Patient: FABIANO RAMIREZ Sex: F [...] rce(s) Supporting Document(s) ID Date Data Source [id number] 12/01/2020 12:20:00 PM EDT [facility] 1 Medication Reconciliation Report [facility] Emergency Department [address] [place] [address] Phone #: ext- [phone] 12/01/2020 12:07 [id number] Sex[facility] F : 1955 Age: 65yWeight: 71.9 [...] the Emergency Department: 2 Medication Reconciliation Report [facility] Emergency Department [address] [place] [address] Phone #: ext- [phone] 12/01/2020 12:07 [id number] Sex[facility] F : 1955 Age: 65yGI Cocktail [PO] PO 50 mL, administered: 12:40 12/01/2020tivan [IM] IM 1 mg, administered: 14:25 12/01/2020The following Medications were prescribed to the patient:None. Name Value Range Interpretation Code Description Data Melanie rce(s) Supporting Document(s) ID Date Data Source [id number] 12/01/2020 12:20:00 PM EDT [facility] 1 Medication Administration Record [facility] Emergency Department [address] [place] [address] Phone #: ext- [phone] 12/01/2020 12:07 Patient: FABIANO RAMIREZ Sex: F : 1955 Age: 65yWeight: 71.9 kgHeight/Length: 59 inBMI: 32ALLERGIES: Darvacet, Demerol, Microdentin Date/Time Medication Administered Medication OrderedGiven GI COCKTAIL [PO] (CALCIUM GI Cocktail PO 50 mL with12:40 12/01/2020 CARBONATE ANTACID) Lidocaine Viscous Mouth/ThroatGrovesMyles R.N. Dose: 50 mL Oral Suspension PO 10 mL, Maalox Oral 30 mL, Oral 10 mLGiven ATIVAN [IM] (LORAZEPAM) Ativan IM 1 mg (HIGH ALERT14:25 12/01/2020 Dose: 1 mg IM MEDICATION, NOW)Myles Landis R.N. Name Value Range Interpretation Code Description Data Melanie rce(s) Supporting Document(s) ID Date Data Source [id number] 12/01/2020 12:20:00 PM EDT [facility] 1 General Instructions [facility] Emergency Department [address] [place] [address] Phone #: ext- [phone] 12/01/2020 12:07 Patient: [...] an ear, nose and throat physician (an it audit manager)and a customer accounts advisor in three days. Reason for referral: evaluation. Summary of care provided to patientvia paper. ADDITIONAL INFORMATIONDysphagia (Adult) 2 General Instructions [facility] Emergency Department [address] [place] [address] Phone #: ext- [phone] 12/01/2020 12:07 Patient: [...] evaluate you using X-ray, 3 General Instructions [facility] Emergency Department [address] [place] [address] Phone #: ext- [phone] 12/01/2020 12:07 Patient: [...] for any of the followin General Instructions [facility] Emergency Department [address] [place] [address], [place] [address] Phone #: pmi- [phone] 12/01/2020 12:07 Patient: FABIANO RAMIREZ Sex: F : 1955 Age: 65y Inability to keep down food or liquid Symptoms that get worse quickly Coughing that won't stop Continuing to lose weight Fever of 100.4F (38C) or higher, or as directed by your healthcare provider Other symptoms as indicated by your healthcare providerCall 911Call 911 for any of the following: Trouble breathing Inability to talk Drooling, inability to control secretions Loss of consciousness [phone] [employer]. [address] [place] [address]. All rights reserved. This information is not intended as asubstitute for professional medical care. Always follow your healthcare professional's instructions. You have been given the following additional information: Dysphagia (Adult)(Electronically signed by Karen Saucedo 12/01/2020 19:10) Name Value Range Interpretation Code Description Data Melanie rce(s) Supporting Document(s) ID Date Data Source [id number] 12/01/2020 12:20:00 PM EDT [facility] 1 Clinical Report - Nurses [facility] Emergency Department [address] [place] [address] Phone #: gik- [phone] 12/01/2020 12:07 Patient: FABIANO RAMIREZ Sex: F : 1955 Age: 65yTRIAGEArrived by EMS. Historian: EMS and patient.Acuity: LEVEL 4.Chief Complaint: SORE THROAT.This started yesterday. ( Per EMS, they state pt got a piece of chicken caught in her throat yesterday andwent to [facility] to have it extracted which she did but now per EMS, they state pt is still c/o a sore throat).EMS Treatment OFFICE REP:EMS treatment verbally communicated and report reviewed. See [...] Guzman RN.AllergiesDarvacet. 2 Clinical Report - Nurses [facility] Emergency Department [address] [place] [address] Phone #: ext- [phone] 12/01/2020 12:07 [id number] Sex: F : 1955 Age: 65y Demerol. Chicas. --12:28 12/01/20 Naresh Guzman RN. History PAST [...] in lowest 3 Clinical Report - Nurses [facility] Emergency Department [address] [place] [address] Phone #: ext- [phone] 12/01/2020 12:07 Patient: FABIANO RAMIREZ Sex: F [...] Patient verbalized understanding. Written instructions provided in Kittitian. The patient was discharged by the physician. She was discharged home. She left ambulatory. Pin Inserter driving. --16:49 12/01/20 Myles Landis R.N. 16:48 12/01/20. BP: 142/86. MAP: 104. HR: 74. RR: 18. O2 saturation: 97%. Temp: deferred. Pain level now: 08/30. --16:49 12/01/20 Myles Landis R.N. Departure time: 16:50 12/01/2020. --16:50 12/01/20 Myles Landis R.N.Locked/Released at 12/01/2020 16:50 by Myles Landis R.N. Name Value Range Interpretation Code Description Data Melanie rce(s) Supporting Document(s) ID Date Data Source [id number] 12/01/2020 12:20:00 PM EDT [facility] 1 Clinical Report - Physicians/Mid Levels [facility] Emergency Department [address] [place] [address] Phone #: ext- [phone] 12/01/2020 12:07 Patient: FABIANO RAMIREZ Sex: F : 1955 Age: 65y Time Seen: 12:28 12/01/2020; initial patient contact, initial documentation. Arrived- By ambulance. Historian- patient. Disposition decision: 16:27 12/01/2020.HISTORY OF PRESENT ILLNESS Chief Complaint: SORE THROAT. FOREIGN BODY SENSATION IN THROAT. This started yesterday and is still present (persistent 1 day OFFICE REP). It was abrupt in onset and has [...] pain on swallowing. she was seen at [facility] where they did an xray [...] Surgeries: 2 Clinical Report - Physicians/Mid Levels [facility] Emergency Department [address] [place] [address] Phone #: ext- [phone] 12/01/2020 12:07 Patient: FABIANO RAMIREZ [facility]#: [id number] Sex: F : 1955 Age: 65y Appendectomy. [...] 3. 3 Clinical Report - Physicians/Mid Levels [facility] Emergency Department [address] [place] [address] Phone #: [phone] ext- [phone] 12/01/2020 12:07 Patient: FABIANO RAMIREZ Sex: F [...] day. 4 Clinical Report - Physicians/Mid Levels [facility] Emergency Department [address] [place] [address] Phone #: ext- [phone] 12/01/2020 12:07 Patient: FABIANO RAMIREZ [facility]#: [id number] Sex: F : 1955 Age: 65y Meclizine [...] an ear, nose and throat physician (an it audit manager) and a customer accounts advisor in three days. Reason for referral: evaluation. Summary of care provided to patient via paper.(Electronically signed by Karen Saucedo 12/01/2020 19:10) Name Value Range Interpretation Code Description Data [facility] rce(s) Supporting Document(s) ID Date Data Source [id number] 11/04/2020 09:59:00 PM EDT [facility] Name Value Range Interpretation Code Description Data [facility] rce(s) Supporting Document(s) Appearance, Urine RFX Laboratory test result [facility] ([facility]) PH,Urine RFX 7.0 units 5.0-9.0 [facility] ([facility]) Color, Urine RFX Laboratory test result [facility] ([facility]) Glucose, Urine (Ua) Auto RFX Laboratory test result [facility] ([facility]) Specific [place] Ur Auto RFX 1.013 1.002-1.035 [facility] ([facility]) Protein, Urine Auto RFX Laboratory test result [facility] ([facility]) Ketone, Urine Auto RFX Laboratory test result [facility] ([facility]) Urobilinogen, Urine Auto RFX 0.2 mg/dL 0.0-2.0 [facility] ([facility]) Bilirubin, Urine Auto RFX Laboratory test result [facility] ([facility]) Nitrite, Urine Auto RFX Laboratory test result [facility] ([facility]) Blood, Urine Blood RFX Laboratory test result [facility] ([facility]) Leukocyte Esterase Ur Auto RFX Laboratory test result [facility] ([facility]) RBC, Urine Auto RFX 2 /HPF 0-3 [facility] ([facility]) WBC, Urine Auto RFX 12 /HPF 0-3 [facility] ([facility]) Squam Epithelial Cell Ur Aurfx 1 /HPF 0-6 [facility] ([facility]) Mucus, Urine RFX Laboratory test result [facility] ([facility]) Bacteria, Urine Auto RFX Laboratory test result [facility] ([facility]) Hyaline Cast, Urine Auto RFX 1 /LPF 0-1 M [facility] ([facility]) ID Date Data Source [id number] 11/04/2020 09:59:00 PM EDT [facility] ([facility]) Name Value Range Interpretation Code Description Data Melanie rce(s) Supporting Document(s) Reflex Urine Culture Laboratory test result [facility] ([facility]) <content>FULL REPORT IN LAB NOTES (eCW a [...] 1 S</content>
<content></content> ID Date Data Source [id number] 10/29/2020 11:06:00 AM EDT [facility] ([facility]) Name Value Range Interpretation Code Description Data Melanie rce(s) Supporting Document(s) Reflex Urine Culture Laboratory test result [facility] ([facility]) <content>FULL REPORT IN LAB NOTES (eCW [...] 2 S</content>
<content></content> ID Date Data Source [id number] 10/29/2020 11:06:00 AM EDT [facility] ([facility]) Name Value Range Interpretation Code Description Data Melanie rce(s) Supporting Document(s) Appearance, Urine RFX Laboratory test result [facility] ([facility]) PH,Urine RFX 7.0 units 5.0-9.0 [facility] ([facility]) Color, Urine RFX Laboratory test result [facility] ([facility]) Specific [place] Ur Auto RFX 1.012 1.002-1.035 [facility] ([facility]) Protein, Urine Auto RFX Laboratory test result [facility] ([facility]) Glucose, Urine (Ua) Auto RFX Laboratory test result [facility] ([facility]) Urobilinogen, Urine Auto RFX 0.2 mg/dL 0.0-2.0 [facility] ([facility]) Ketone, Urine Auto RFX Laboratory test result [facility] ([facility]) Bilirubin, Urine Auto RFX Laboratory test result [facility] ([facility]) Nitrite, Urine Auto RFX Laboratory test result [facility] ([facility]) Leukocyte Esterase Ur Auto RFX Laboratory test result [facility] ([facility]) WBC, Urine Auto RFX 29 /HPF 0-3 [facility] ([facility]) Blood, Urine Blood RFX Laboratory test result [facility] ([facility]) RBC, Urine Auto RFX 12 /HPF 0-3 [facility] ([facility]) Squam Epithelial Cell Ur Aurfx 1 /HPF 0-6 [facility] ([facility]) Bacteria, Urine Auto RFX Laboratory test result [facility] ([facility]) Hyaline Cast, Urine Auto RFX 1 /LPF 0-1 M [facility] ([facility]) Mucus, Urine RFX Laboratory test result [facility] ([facility]) Amorphous Sediment RFX Laboratory test result [facility] ([facility]) ID Date Data Source [id number] 10/29/2020 10:47:00 AM EDT [facility] Name Value Range Interpretation Code Description Data Melanie rce(s) Supporting Document(s) SARS COVID [facility]TIGEN NEGATIVE [facility] This lab was ordered by PEYTON vargas nd reported by [facility]. ID Date Data Source [id number] 10/29/2020 10:47:00 AM EDT [facility] ([facility]) Name Value Range Interpretation Code Description Data Melanie rce(s) Supporting Document(s) Laboratory test finding (navigational concept) Laboratory test result [facility] ([facility]) The [facility] SARS Antigen ALISTAIR does not diff erentiate between SARS-CoV and SARS-CoV-2. Negative results do not rule out COVID-19 and should not be used as the sole basis for treatment. Negative results should be considered in the context of a patient's recent exposure, history and the presence of clinical signs and symptoms consistent with COVID-19. ID Date Data Source [id number] 10/19/2020 08:54:00 AM EDT [facility] [address] [place] [address] PHONE: [phone] FAX: [phone] Name .................. : CANDIDO MARIO Acct Number.................. : [id number] ROOM. ................. : TR-04 MR Number ................... : [id number] Stay type ............. : E/R Discharge Date......... ... : 10/14/20 Admit Date ......... : 10/13/20 Admit Phys .................... : [facility] Date of ....... : 1955 Family Phys ................... : JENNY [employer] Phone . ................. : [phone] Age ................................ : 65 Film# .................. .:[id number] Sex ................................. : F Unsigned transcriptions are preliminary reports and do not represent a medical or legal document CHEST PORTABLE [id number] COMPLETE:10/14/20 00:54 [facility] 7229 Reason(s): cough hemoptysis PORTABLE CHEST X-RAY: [...] Date: 10/14/20 13:06, Dictation Date: Copy for: [address] [place] [address] DISCHARGED Page 1 of 1 Name Value Range Interpretation Code Description Data Melanie rce(s) Supporting Document(s) ID Date Data Source [id number] 10/16/2020 09:15:00 AM EDT [address] [address] RESPIRATORY CARE REPORT ==== ---------NAME------- NUMBER SEX AGE ADMIT DISC. XRAY# F/C KELSEY MARIO [id number] F 65 10/13/20 10/14/20 [id number] E/R DATE OF : 1955 M/R# [id number] #: [id number] TR-04 LOCATION: EKG [id number] COMPLETE:10/14/20 0 0:29 T 99673 PHYSICIAN: VIJAYA Name Value Range Interpretation Code Description Data Melanie rce(s) Supporting Document(s) ID Date Data Source [id number] 10/13/2020 11:01:00 PM EDT [facility] 1 OrderSheet [facility] Emergency Department [address] [place] [address] Phone #: ext- [phone] 10/13/2020 23:01 Patient: FABIANO RAMIREZ Sex: F [...] Victoria Cancelled: Duplicate Order 00:05 ; 10/14/2020 Sherwin Saucedonin-T STAT 23:47 10/13/2020 00:00 10/14/2020 Karen Saucedo Gregory ;Urinalysis (Clean STAT 23:47 10/13/2020 00:18 10/14/2020atch) Karen Saucedo [place] ;Venous Blood Gas STAT 23:47 10/13/2020 Initialed: 23:50 Karen Saucedo Victoria Cancelled: Wrong Order 23:50 ; Karen Saucedo 2 OrderSheet [facility] Emergency Department [address] [place] [address] Phone #: ext- [phone] 10/13/2020 23:01 Patient: [...] 01:50 10/14/2020 01:53 Vijaya Lerner Victoria Laura RShlomo ;DIAGNOSTIC STUDY ORDERSOrder Description Priority Entered Acknowledged InitialedChest Portable 1 STAT 23:47 10/13/2020 00:44 10/14/2020View (Oxygen? Karen Saucedo Gregory(Yes)) ; Reason for Study: ciugh hemoptysisCT CTA CHEST STAT 01:50 10/14/2020 Ack'd: 01:53 02:35 Yann,(NONCOR) W CON Karen Saucedo Laura Laura RFreyaNFreyaINC PP ; R.N.(Oxygen?(No))(IV?(Yes)) Reason for Study: hemoptysisMEDICATION/IV/DRIP/FLUID ORDERSOrder Description Priority Entered Acknowledged InitialedRocephin 01:49 10/14/2020 01:56 Angelika,(1gm/50mL) IVPB Karen Saucedo1000 mg with ;Dextrose 50 mlspike bag (D5W)GENERAL ORDERSOrder Description Priority Entered Acknowledged InitialedAccucheck 23:47 10/13/2020 23:59 Jeffy Carney OrderSheet [facility] Emergency Department [address] [place] [address] Phone #: ext- [phone] 10/13/2020 23:01 Patient: FABIANO RAMIREZ Sex: F : 1955 Age: 65y Karen Saucedo ;Blood Pressure 23:47 10/13/2020 23:59 Angelika,Monitor Karen Saucedo ;EKG 23:47 10/13/2020 00:03 10/14/2020 Karen Saucedo Gregory ;NPO 23:47 10/13/2020 23:59 Vijaya Carney Victoria Gregory ;Oxygen titrate to 23:47 10/13/2020 23:59 Agnelika,92% Karen Saucedo ;Pulse oximeter 23:47 10/13/2020 23:59 Angelika,(Continuous) Karen Saucedo ;Saline Lock 23:47 10/13/2020 23:59 Vijaya Carney Victoria Gregory ;Vitals 23:47 10/13/2020 23:59 Vijaya aCrney Victoria Gregory ;[Electronically signed by Noam Carney (04:10/14/2020)][Electronically signed by Karen Saucedo (07:57 10/15/2020)][Electronically locked by Noam Carney (04:10/14/2020)] Name Value Range Interpretation Code Description Data Melanie rce(s) Supporting Document(s) ID Date Data Source [id number] 10/13/2020 11:01:00 PM EDT [facility] 1 Medication Reconciliation Report [facility] Emergency Department [address] [place] [address] Phone #: ext- [phone] 10/13/2020 23:01 Patient: [...] Home Medication information:patient 2 Medication Reconciliation Report [facility] Emergency Department [address] [place] [address] Phone #: ext- [phone] 10/13/2020 23:01 Patient: [...] Dispense 14 tablet. Refills: 0.Substitution permitted.Pharmacy - [id number] - [address] ; [place] [address]. . -- Karen Saucedo Name Value Range Interpretation Code Description Data Melanie rce(s) Supporting Document(s) ID Date Data Source [id number] 10/13/2020 11:01:00 PM EDT [facility] 1 Medication Administration Record [facility] Emergency Department [address] [place] [address] Phone #: ext- [phone] 10/13/2020 23:01 Patient: FABIANO RAMIREZ Sex: F : 1955 Age: 65yWeight: 91.6 kgHeight/Length: 62 inBMI: 37ALLERGIES: Darvacet, Demerol, Microdentin Date/Time Medication Administered Medication OrderedStart ROCEPHIN (1GM/50ML) [IVPB] Rocephin (1gm/50mL) IVPB 999720:[id number] 10/14/2020 (CEFTRIAXONE SODIUM) mg with Dextrose 50 ml spike Noam Ramesh, Dose: 1 gm IVPB (D5W)---- Rate: 100 mL/hr over 30 minute(s)Stop Dispensed: 50 mL bag02:58 10/14/2020 Site: #1 left Noam Estrada, Name Value Range Interpretation Code Description Data Melanie rce(s) Supporting Document(s) ID Date Data Source [id number] 10/13/2020 11:01:00 PM EDT [facility] 1 General Instructions [facility] Emergency Department [address] [place] [address] Phone #: ext- [phone] 10/13/2020 23:01 Patient: [...] Dispense 14 tablet. Refills: 0.Substitution permitted.Pharmacy - [id number] - [address] [facility] ; [place] [address]. .Follow-up:Follow up with your healthcare provider Friday if not better. Reason for referral: evaluation. Summary ofcare provided to patient via paper. ADDITIONAL INFORMATION 2 General Instructions [facility] Emergency Department [address] [place] [address] Phone #: ext- [phone] 10/13/2020 23:01 Patient: FABIANO RAMIREZ Sex: F [...] prescribed for this condition. 3 General Instructions [facility] Emergency Department [address] [place] [address] Phone #: ext- [phone] 10/13/2020 23:01 Patient: FABIANO RAMIREZ Sex: F [...] loosen secretions in the nose and lungs. Cxeu-wjm-dyaiank cold medicines will not shorten the length of time you're sick, but they may be helpful for the following symptoms: cough, sore throat, and nasal and sinus congestion. If you take prescription medicines, ask your healthcare provider or pharmacist which nnug-fhc-qlkvdwy medicines are safe to use. (Note: Don't [...] wheezing, or difficulty breathing 4 General Instructions [facility] Emergency Department [address] [place] [address] Phone #: ext- [phone] 10/13/2020 23:01 Patient: FABIANO RAMIREZ Sex: F : 1955 Age: 65y Coughing up blood Very severe pain with swallowing, especially if it goes along with a muffled voice [employer]. [address] [place] [address]. All rights reserved. This information is not [...] of cystitis isan infection. 5 General Instructions [facility] Emergency Department [address] [place] [address] Phone #: [phone]- [phone] 10/13/2020 23:01 Patient: FABIANO RAMIREZ Sex: F [...] put in Older age 6 General Instructions [facility] Emergency Department [address] [place] [address] Phone #: ext- [phone] 10/13/2020 23:01 Patient: FABIANO RAMIREZ Sex: F [...] and vegetables, and fiber. 7 General Instructions [facility] Emergency Department [address] [place] [address] Phone #: ext- [phone] 10/13/2020 23:01 Patient: [...] if the results will affect your treatment.Call [phone] if any of the following occur: Trouble [...] outer vaginal area (labia) 8 General Instructions [facility] Emergency Department [address] [place] [address] Phone #: ext- [phone] 10/13/2020 23:01 Patient: FABIANO RAMIREZ Sex: F : 1955 Age: 65y [phone] [employer] [place] [address]. All rights reserved. This information is not intended as asubstitute for professional medical care. Always follow your healthcare professional's instructions. You have been given the following additional information: URI, Viral, No Abx (Adult) Bladder Infection, Female (Adult)(Electronically signed by Karen Saucedo 10/15/2020 07:57) Name Value Range Interpretation Code Description Data Melanie rce(s) Supporting Document(s) ID Date Data Source [id number] 10/13/2020 11:01:00 PM EDT [facility] 1 Clinical Report - Nurses [facility] Emergency Department [address] [place] [address] Phone #: ext- [phone] 10/13/2020 23:01 Patient: [...] No acute distress.Onset. (See the triage note).Treatment OFFICE REP:(she was seen here a few months ago [...] Miguel RN.AllergiesDarvacet. 2 Clinical Report - Nurses [facility] Emergency Department [address] [place] [address] Phone #: ext- [phone] 10/13/2020 23:01 Patient: FABIANO RAMIREZ Sex: F [...] reports abuse. (denies). Abuse assessment. denies. --23:35 3/26/21 Claudia Miguel RN SOCIAL HX: Never smoker. [...] pre- and 3 Clinical Report - Nurses [facility] Emergency Department [address] [place] [address] Phone #: ext- [phone] 10/13/2020 23:01 Patient: FABIANO RAMIREZ Sex: F : 1955 Age: 65y post-medication administration. Information reviewed with patient including reason for taking this medication, signs of allergic reaction and precautions. Verbalizes understanding. --01:56 10/14/20 Noam Carney Patient returned from CT by wheelchair with mask and radiology transcriptionist. --02:36 10/14/20 Roxanne Lerner R.N. 02:37 10/14/20. [...] Temp: 97.9 F (oral). Pain level now: 210. --04:12 10/14/20 Noam Carney Condition at departure: stable. No learning barriers present. Discharge instructions provided and reviewed with the patient. Reviewed warnings (return for worsening symptoms). Reviewed medication(s) side effects, precautions, dosing and course information (bactrim). Reviewed referral to a primary care physician. Patient verbalized understanding. Written instructions provided in Kittitian. No treatment instructions. The patient was discharged by the physician. She was discharged home. She left ambulatory and via taxi. 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 --04:24 10/14/20 Noam Carney.Locked/Released at 10/14/2020 04:25 by Noam Carney Name Value Range Interpretation Code Description Data Melanie rce(s) Supporting Document(s) ID Date Data Source [id number] 10/13/2020 11:01:00 PM EDT [facility] 1 Clinical Report - Physicians/Mid Levels [facility] Emergency Department [address] [place] [address] Phone #: ext- [phone] 10/13/2020 23:01 Patient: FABIANO RAMIREZ Sex: F [...] surgery. 2 Clinical Report - Physicians/Mid Levels [facility] Emergency Department [address] [place] [address] Phone #: ext- [phone] 10/13/2020 23:01 Patient: [...] Interpretation 3 Clinical Report - Physicians/Mid Levels [facility] Emergency Department [address] [place] [address] Phone #: ext- [phone] 10/13/2020 23:01 Patient: [...] CTA CHEST [place] [address] ---------NAME--------- NUMBER SEX AGE ADMIT DISC. XRAY# F/C TYPE CANDIDO MARIO [id number] F 65 10/13/20 [id number] E/R DATE OF : 1955 M/R# [id number] #: [id number] TR-04 LOCATION: TRANSCRIBED: 10/14/20 3:[address] CTA CHEST NON-CORONARY W [id number] COMPLETED:10/14/20 2:52 [facility] 7231 Reason(s): hemoptysis -- PHYSICIAN: VIJAYA -- -- R A D I O L O G Y R E P O R T -- PATIENT HISTORY: hemopstysis. isovue 370 75 ml [id number] exp 09/12. estimated dose 394.5. actual dose 395.6 mGy*cm. Time Out performed. Correct patient with 2 identifiers, type and amount of contrast used, correct body part and side all verified prior to examination. / COR SLAB MIP (DICOM Hx) EXAM: CTA Chest with Intravenous Contrast for PE evaluation -- CLINICAL HISTORY:hemopstysis. isovue 370 75 ml [id number] exp 09/12. estimated dose 394.5. actual dose [...] thoracic aorta. 4 Clinical Report - Physicians/[facility] Emergency Department [address] [place] [address] Phone #: ext- [phone] 10/13/2020 23:01 Patient: FABIANO RAMIREZ Sex: F [...] 7.0) 5 Clinical Report - Physicians/Mid Levels [facility] Emergency Department [address] [place] [address] Phone #: ext- [phone] 10/13/2020 23:01 Patient: [...] Male GFR Interprentation 20-49 yrs >60 mL/min Kbxrxw16-74 yrs >56 mL/min Normal 60-69 yrs >49 mL/min Normal 70-79yrs>42 mL/min Normal 80 and above >35 mL/min Normal Female GFRInterpretation 20-39 yrs >60 mL/min Normal 40-49 yrs >58 mL/minNormal 50-59 yrs >51 mL/min Normal 60-69 yrs >45 mL/min Ghsrkx27-25 yrs >39 mL/min Normal 80 and above [...] VenousThrombosis, Pulmonary Embolus, Tissue heart valves, Acute SD, Atrial Fibrillation, Valvular heartdisease and recurrent Systemic Embolism. - International Normalized Ratio (INR): 2.5 - 3.5 6 Clinical Report - Physicians/Mid Levels [facility] Emergency Department [address] [place] [address] Phone #: ext- [phone] 10/13/2020 23:01 Patient: FABIANO RAMIREZ Sex: F : 1955 Age: 65yfor Mechanical Prosthetic valve.PT/PTT: (OLE: 10/13/2020 23:47) ( [facility] 10/14/2020 00:06) CanceledTroponin-T: (OLE: 10/14/2020 00:01) ( [facility] 10/14/2020 00:39) Final results Test Result Flag Units (Reference) TROPONIN T <0.01 NG/ML (0.00 - 0.10) TROPONIN T0.1 ng/ml Recommended as the clinical threshold value forTroponin T.Urinalysis: (OLE: 10/13/2020 23:45) ( [facility] 10/14/2020 00:22) Final results Test Result Flag [...] NONEVenous Blood Gas: (OLE: 10/13/2020 23:47) ( [facility] 10/13/2020 23:50) CanceledCRP: (OLE: 10/14/2020 00:01) ( [facility] 10/14/2020 00:40) Final results Test Result Flag Units (Reference) CRP-HS 11.76 H MG/L (1.00 - 3.00) CDC/AHS HS-CRP CUT-OFF: RELATIVE RISK: <1.0 mg/LLow 1.0 - 3.0 mg/L Average >3.0 mg/LHigh Optimally, the average of HS-CRP results repeated two weeks apart should be used forrisk assessment.ABG: (OLE: 10/13/2020 23:47) ( [facility] 10/14/2020 00:02) CanceledMagnesium: (OLE: 10/14/2020 00:01) ( [facility] 10/14/2020 00:40) Final results Test Result Flag Units (Reference) MAGNESIUM 2.2 MG/DL (1.7 - 2.2)Chest Portable 1 View: (OLE: 10/13/2020 23:47) ( [facility] 10/14/2020 00:54) [place] 7 Clinical Report - Physicians/Mid Levels [facility] Emergency Department [address] [place] [address] Phone #: ext- [phone] 10/13/2020 23:01 Patient: FABIANO RAMIREZ Sex: F : 1955 Age: 65y Reason(s): ciugh hemoptysis TRANSPORTATION: P IV? O2? Oxygen?(Yes) Room: E D-Dimer: (OLE: 10/14/2020 00:01) ( [facility] 10/14/2020 00:40) Final results Test Result Flag [...] Oral. 8 Clinical Report - Physicians/Mid Levels [facility] Emergency Department [address] [place] [address] Phone #: tyu- [phone] 10/13/2020 23:01 Patient: FABIANO RAMIREZ Sex: F [...] tablet. Refills: 0. Substitution permitted. Pharmacy - [id number] - [address] [facility] ; [place] [address]. . Follow-up: Follow up with your healthcare provider Friday if not better. Reason for referral: evaluation. Summary of care provided to patient via paper.(Electronically signed by Karen Saucedo 10/15/2020 07:57) Name Value Range Interpretation Code Description Data Melanie rce(s) Supporting Document(s) ID Date Data Source [id number] 10/14/2020 03:51:00 AM EDT [facility] [address] [place] [address] ---------NAME--------- NUMBER SEX AGE ADMIT DISC. XRAY# F/C TYPE CANDIDO MARIO [id number] F 65 10/13/20 [id number] E/R DATE OF : 1955 M/R# [id number] #: [id number] TR-04 LOCATION: TRANSCRIBED: 10/14/20 3:[address] CTA CHEST NON-CORONARY W [id number] COMPLETED:10/14/20 2:52 [facility] 7231 Reason(s): hemoptysis PHYSICIAN: VIJAYA R A D I O L O G Y R E P O R T PATIENT HISTORY:hemopstysis. isovue 370 75 ml [id number] exp 09/12. estimated dose 394.5. actualdose 395.6 mGy*cm.Time Out performed. Correct patient with 2 identifiers, type and amount ofcontrast used, correct body part and side all verified prior to examination. /COR SLAB MIP (DICOM Hx)EXAM: CTA Chest with Intravenous Contrast for PE evaluationCLINICAL HISTORY:hemopstysis. isovue 370 75 ml [id number] exp 09/12. estimated zndq846.5. actual dose 395.6 mGy*cm. Time Out performed. [...] rce(s) Supporting Document(s) ID Date Data Source [id number] 10/21/2020 06:30:00 AM EDT [facility] Name Value Range Interpretation Code Description Data Melanie rce(s) Supporting Document(s) CULTURE BLOOD [facility] _CULTURE BLOOD_ TEST PERFORM ED AT [address] [address] CLIA# [id number] SEE SCANNED REPORT{ PRELIM ID Date Data Source [id number] 10/14/2020 12:35:00 AM EDT [facility] ([facility]) Name Value Range Interpretation Code Description Data Melanie rce(s) Supporting Document(s) Culture Blood Laboratory test result [facility] ([facility]) _CULTURE BLOOD_ [place] [address] CLIA# [id number] SEE SCANNED REPORT { PRELIM ID Date Data Source [id number] 10/19/2020 11:49:00 AM EDT [facility] [address] Name Value Range Interpretation Code Description Data Melanie rce(s) Supporting Document(s) Bacteria identified in Blood by Culture [facility] NO GROWTH AFTER 5 DAYS ID Date Data Source [id number] 10/21/2020 06:29:00 AM EDT [facility] Name Value Range Interpretation Code Description Data Melanie rce(s) Supporting Document(s) [facility] BLOOD [facility] _CULTURE BLOOD_ TEST PERFORM ED AT [address] [address] CLIA# [id number] SEE SCANNED REPORT{ PRELIM ID Date Data Source [id number] 10/14/2020 12:04:00 AM EDT [facility] ([facility]) Name Value Range Interpretation Code Description Data Melanie rce(s) Supporting Document(s) Culture Blood Laboratory test result [facility] ([facility]) _CULTURE BLOOD_ TEST PERFORMED AT [address] [address] CLIA# [id number] SEE SCANNED REPORT { PRELIM ID Date Data Source [id number] 10/14/2020 12:01:00 AM EDT [facility] ([facility]) Name Value Range Interpretation Code Description Data Melanie rce(s) Supporting Document(s) C reactive protein [Mass/volume] in Serum or Plasma by High sensitivity method 11.76 mg/L 1.00-3.00 [facility] [facility] <content>CDC/S HS-CRP CUT-OFF: RELATIVE RISK:</content>
<content><1.0 mg/L Low</content>
<content>1.0 - 3.0 mg/L Average</laron nt>
<content>>3.0 mg/L High</content>
<content>Optimally, the average of HS-CRP results repeated</content>
<content>two weeks apart should be used for risk assessment.</content>
<content></content> Magnesium Serum 2.2 mg/dL 1.7-2.2 [facility] ([facility]) Natriuretic peptide.B prohormone N-Terminal [Mass/volu me] in Serum or Plasma 20 pg/mL 0-125 [facility] [facility] Fibrin D-dimer [Presence] in Platelet poor plasma 0.32 ug/mL 0.27-0.5 0 [facility] [facility] ID Date Data Source [id number] 10/14/2020 12:01:00 AM [facility]) Name Value Range Interpretation Code Description Data Melanie rce(s) Supporting Document(s) Comprehensive [facility]abo Laboratory test result [facility] ([facility]) COMPREHENSIVE METABOLIC PANEL Sodium 140 meq/L 134-153 [facility] [facility] Potassium 3.9 meq/L 3.6-5.0 [facility] [facility] Co2 31 meq/L 22-30 [facility] [facility] Chloride 102 meq/L 98-107 [facility] [facility] BUN 12 mg/dL 7-21 [facility] [facility] Glucose 94 mg/dL 70-99 [facility] ([place] [facility]) Creatinine 0.8 mg/dL 0.7-1.5 [facility] ([facility]) Total Protein 7.0 g/dL 6.3-8.2 [facility] ([facility]) BUN/Creat 15 8-27 [facility] ([place] [facility]) Globulin 2.8 GM/DL 2.4-3.2 [facility] [facility]) Albumin 4.2 g/dL 3.9-5.0 [facility] [facility]) A/G Ratio 1.5 0.8-2.0 [facility] [facility]) Calcium 10.1 mg/dL 8.4-10.2 [facility] ([facility]) Total Bili Laboratory test result 0.2-1.3 [facility] ([facility]) Alkaline Phos 62 U/L 38-126 [facility] ([facility]) Sgot/Ast 14 U/L 5-40 [facility] [facility]) SGPT/Alt 13 U/L 7-56 [facility] [facility]) Anion Gap 7.0 mmol/L 8.0-16.0 [facility] ([facility]) Non-Aa GFR Laboratory test result [facility] ([facility]) Age 65 yrs [facility] ([place] [facility]) Afr Amer GFR Laboratory test result [facility] ([facility]) Male GFR Interprentation 20-49 yrs >60 [...] >32 mL/min Normal ID Date Data Source [id number] 10/14/2020 12:01:00 AM EDT [facility] ([facility]) Name Value Range Interpretation Code Description Data Melanie rce(s) Supporting Document(s) Troponin T.cardiac [Mass/volume] in Serum or Plasma Laborato ry test result 0.00-0.10 [facility] TROPONIN T 0.1 ng/ml Recommended as the clinical th reshold value for Troponin T. ID Date Data Source [id number] 10/14/2020 12:01:00 AM EDT [facility] ([facility]) Name Value Range Interpretation Code Description Data Melanie rce(s) Supporting Document(s) pCO2 V 56.1 mm/HG 38.0-51.0 [facility] [facility]) pH V 7.37 7.32-7.43 [facility] [facility]) pO2 V 39.7 mm/HG 30.0-55.0 [facility] Hco3 V 31.5 meq/L 22.0-29.0 [facility] ([facility]) Tco2 V 33.2 meq/L 22.0-29.0 [facility] ([facility]) O2 Sat V 73.4 % 40.0-85.0 [facility] ([place] [facility]) Base Excess 4.9 [facility] ([facility]) ID Date Data Source [id number] 10/14/2020 12:01:00 AM EDT [facility] ([facility]) Name Value Range Interpretation Code Description Data Melanie rce(s) Supporting Document(s) Protime 15.3 s 11.0-15.5 [facility] ([place] [facility]) Inr 1.15 0.93-1.23 [facility] ([place] [facility]) \\BLDo\\INR INTERPRETATION\\BLDx\\ Therapeutic range for Coumadin and related oral a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. -International Normalized Ratio (INR): 2 .0 - 3.0 for Venous Thrombosis, Pulmonary Embolus, Tissue heart valves, Acute SD, Atrial Fibrillation, Valvular heart disease and recurrent Systemic Embolism. -International Normalized Ratio (INR): 2 .5 - 3.5 for Mechanical Prosthetic valve. ID Date Data Source [id number] 10/14/2020 12:01:00 AM EDT [facility] ([facility]) Name Value Range Interpretation Code Description Data Melanie rce(s) Supporting Document(s) Lactate [Mass/volume] in Serum or Plasma 1.4 mmol/L 0.2-2.2 [facility] ([facility]) ID Date Data Source [id number] 10/14/2020 12:01:00 AM EDT [facility] ([facility]) Name Value Range Interpretation Code Description Data Melanie rce(s) Supporting Document(s) CBC W/Automated Diff Laboratory test result [facility] ([facility]) COMPLETE BLOOD COUNT WBC 5.8 10^3/uL 4.2-11.0 [facility] ([facility]) RBC 3.92 10^6/uL 4.20-5.40 [facility] ([facility]) Hematocrit 36.6 % 37.0-47.0 [facility] [facility] Hemoglobin 11.9 g/dL 12.0-16.0 [facility] [facility] MCV 93.4 fL 81.0-101 [facility] [facility] MCH 30.4 pg 27.0-34.0 [facility] [facility]) RDW 15.5 % 11.5-14.5 [facility] [facility]) MCHC 32.5 g/dL 31.0-36.0 [facility] [facility] Platelets 204 10^3/uL 150-450 [facility] ([facility]) MPV 8.4 fL 7.4-10.4 [facility] [facility] Neut 43.7 % 37.0-80.0 [facility] [facility] Lymph 45.6 % 25.0-40.0 [facility] [facility]) Johnson 6.2 % 3.0-8.0 [facility] [facility]) Baso 0.3 % 0.0-2.5 [facility] [facility] Eos 4.0 % 0.0-7.0 [facility] [facility] %Ig 0.2 % 0.0-0.0 [facility] [facility]) %NRBC 0.0 % 0.0-0.0 [facility] [facility]) #Neut 2.54 10^3/uL 2.00-6.90 [facility] ([facility]) #Lymph 2.65 10^3/uL 0.60-3.40 [facility] ([facility]) #Johnson 0.36 10^3/uL 0.00-0.90 [facility] ([facility]) #Eos 0.23 10^3/uL 0.00-0.70 [facility] ([facility]) #Baso 0.02 10^3/uL 0.00-0.20 [facility] ([facility]) #Ig 0.01 10^3/uL 0.00-0.10 [facility] ([facility]) #NRBC 0.00 10^3/uL 0.00-0.00 [facility] ([facility]) Manual Diff Laboratory test result [facility] ([facility]) RBC Morph Laboratory test result [facility] ([facility]) ID Date Data Source [id number] 10/14/2020 02:08:00 AM EDT [facility] Value Range Interpretation Code Description Data Melanie rce(s) Supporting Document(s) BNP 20 PG/ML 0 - 125 [facility] ID Date Data Source [id number] 10/14/2020 12:40:00 AM EDT [facility] Value Range Interpretation Code Description Data Melanie rce(s) Supporting Document(s) Fibrin D-dimer FEU [Mass/volume] in Platelet poor plasma 0.32 ug /mL 0.27 - 0.50 [facility] ID Date Data Source [id number] 10/14/2020 12:39:00 AM EDT [facility] Value Range Interpretation Code Description Data Melanie rce(s) Supporting Document(s) Magnesium [Mass/volume] in Serum or Plasma 2.2 MG/DL 1.7 - 2.2 [facility] ID Date Data Source [id number] 10/14/2020 12:39:00 AM EDT [facility] Name Value Range Interpretation Code Description Data Melanie rce(s) Supporting Document(s) C reactive protein [Mass/volume] in Serum or Plasma by High sensitivity method 11.76 MG/L 1.00 - 3.00 H [facility]/S HS-CRP CUT-OFF: RELATIVE RISK: <1.0 mg/L Low 1.0 - 3.0 mg/L Average >3.0 mg/L High Optimally, the average of HS-CRP results repeated two weeks apart should be used for risk assessment. ID Date Data Source [id number] 10/14/2020 12:39:00 AM EDT [facility] Name Value Range Interpretation Code Description Data Melanie rce(s) Supporting Document(s) COMPREHENSIVE METABOLIC PANEL [facility] COMPREHENSIVE METABOLIC PANEL Sodium [Moles/volume] in Serum or Plasma 140 mEq/L 134 - 153 [facility] Potassium [Moles/volume] in Serum or Plasma 3.9 mEq/L 3.6 - 5.0 [facility] Chloride [Moles/volume] in Serum or Plasma 102 mEq/L 98 - 107 [facility] Carbon dioxide, total [Moles/volume] in Serum or Plasma 31 MEQ/L 22 - 30 H [facility] Glucose [Mass/volume] in Serum or Plasma 94 MG/DL 70 - 99 [facility] BUN 12 MG/DL 7 - 21 [facility] Creatinine [Mass/volume] in Serum or Plasma 0.8 MG/DL 0.7 - 1.5 [facility] BUN/CREAT 15 8 - 27 [facility] Protein [Mass/volume] in Serum or Plasma 7.0 G/DL 6.3 - 8.2 [facility] Albumin [Mass/volume] in Serum or Plasma 4.2 G/DL 3.9 - 5.0 [facility] Globulin [Mass/volume] in Serum by calculation 2.8 GM/DL 2.4 - 3.2 [facility] A/G RATIO 1.5 0.8 - 2.0 [facility] Calcium [Mass/volume] in Serum or Plasma 10.1 MG/DL 8.4 - 10.2 [facility] Bilirubin.total [Mass/volume] in Serum or Plasma <0.7 MG/DL 0.2 - 1.3 [facility] Alkaline phosphatase [Enzymatic activity/volume] in Serum or Plasma 62 U/L 38 - 126 [facility] Aspartate aminotransferase [Enzymatic activity/volume] in Serum or Plasma 14 U/L 5 - 40 [facility] Alanine aminotransferase [Enzymatic activity/volume] in Seru m or Plasma 13 U/L 7 - 56 [facility] Anion gap 3 in Serum or Plasma 7.0 mmol/L 8.0 - 16.0 L [facility] AGE 65 yrs [facility] NON-AA GFR >60 mL/min [facility] AFR AMER GFR >60 [facility] Male GFR In terprentation [...] >32 mL/min Normal ID Date Data Source [id number] 10/14/2020 12:39:00 AM EDT [facility] Name Value Range Interpretation Code Description Data Melanie e(s) Supporting Document(s) TROPONIN T <0.01 NG/ML 0.00 - 0.10 [facility] TROPONIN T0.1 ng/ml Recommended as the c linical threshold value forTroponin T. ID Date Data Source [id number] 10/14/2020 12:22:00 AM EDT [facility] Name Value Range Interpretation Code Description Data Melanie [facility](s) Supporting Document(s) Prothrombin time (PT) 15.3 SECONDS 11.0 - 15.5 [facility] INR in Platelet poor plasma by Coagulation assay 1.15 0.93 - 1. 23 [facility] \\BLDo\\INR INTERPRETATION\\BLDx\\ Therapeutic range for Coumadin and related oral a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. - International Normalized Ratio (INR): 2.0 - 3.0 for Venous Thrombosis, Pulmonary Embolus, Tissue heart valves, Acute SD, Atrial Fibrillation, Valvular heart disease and recurrent Systemic Embolism. -International Normalized Ratio (INR): 2.5 - 3.5 for Mechanical Prosthetic valve. ID Date Data Source [id number] 10/14/2020 12:22:00 AM EDT [facility] Name Value Range Interpretation Code Description Data Melanie rce(s) Supporting Document(s) Lactate [Moles/volume] in Serum or Plasma 1.4 MMOL/L 0.2 - 2.2 [facility] ID Date Data Source [id number] 10/14/2020 12:22:00 AM EDT [facility] Name Value Range Interpretation Code Description Data Melanie rce(s) Supporting Document(s) pH of Serum or Plasma 7.37 7.32 - 7.43 [facility] pCO2 V 56.1 mm/HG 38.0 - 51.0 [facility] pO2 V 39.7 mm/HG 30.0 - 55.0 [facility] Bicarbonate [Moles/volume] in Venous blood 31.5 meq/L 22.0 - 29.0 H [facility] TCO2 V 33.2 meq/L 22.0 - 29.0 [facility] Base excess in Blood by calculation 4.9 -2.0 - 2.0 H [facility] O2 SAT V 73.4 % 40.0 - 85.0 [facility] ID Date Data Source [id number] 10/14/2020 12:10:00 AM EDT [facility] Name Value Range Interpretation Code Description Data Melanie rce(s) Supporting Document(s) CBC W/AUTOMATED DIFF [facility] COMPLETE BLOOD COUNT Leukocytes [#/volume] in Blood by Automated count 5.8 10^3/uL 4.2 - 1 1.0 [facility] Erythrocytes [#/volume] in Blood by Automated count 3.92 10^6/uL 4. 20 - 5.40 L [facility] Hemoglobin [Mass/volume] in Blood 11.9 g/dL 12.0 - 16.0 L [facility] Hematocrit [Volume Fraction] of Blood by Automated count 36.6 % 3 7.0 - 47.0 L [facility] Erythrocyte mean corpuscular volume [Entitic volume] by Auto mated count 93.4 fL 81.0 - 101 [facility] Erythrocyte mean corpuscular hemoglobin [Entitic mass] by Automated count 30.4 pg 27.0 - 34.0 [facility] Erythrocyte mean corpuscular hemoglobin concentration [Mass/volume] by Automated count 32.5 g/dL 31.0 - 36.0 [facility] Erythrocyte distribution width [Ratio] by Automated count 15.5 % 11.5 - 14.5 H [facility] Platelets [#/volume] in Blood by Automated count 204 10^3/uL 150 - 45 0 [facility] Platelet mean volume [Entitic volume] in Blood by Automated count 8.4 fL 7.4 - 10.4 [facility] Neutrophils/100 leukocytes in Blood by Automated count 43.7 % 37. 0 - 80.0 [facility] Lymphocytes/100 leukocytes in Blood by Manual count 45.6 % 25.0 - 40.0 H [facility] Monocytes/100 leukocytes in Blood by Automated count 6.2 % 3.0 - 8.0 [facility] Eosinophils/100 leukocytes in Blood by Automated count 4.0 % 0.0 - 7.0 [facility] Basophils/100 leukocytes in Blood by Automated count 0.3 % 0.0 - 2.5 [facility] %IG 0.2 % 0.0 - 0.0 [facility] %NRBC 0.0 % 0.0 - 0.0 [facility] Neutrophils [#/volume] in Blood by Automated count 2.54 10^3/uL 2.00 - 6.90 [facility] Lymphocytes [#/volume] in Blood by Automated count 2.65 10^3/uL 0.60 - 3.40 [facility] Monocytes [#/volume] in Blood by Automated count 0.36 10^3/uL 0.00 - 0.90 [facility] Eosinophils [#/volume] in Blood by Automated count 0.23 10^3/uL 0.00 - 0.70 [facility] Basophils [#/volume] in Blood by Automated count 0.02 10^3/uL 0.00 - 0.20 [facility] #IG 0.01 10^3/uL 0.00 - 0.10 [facility] #NRBC 0.00 10^3/uL 0.00 - 0.00 [facility] MANUAL DIFF NOT INDICATED [facility] RBC MORPH NOT INDICATED [facility] ID Date Data Source [id number] 10/18/2020 02:37:00 PM EDT [facility] Name Value Range Interpretation Code Description Data Melanie rce(s) Supporting Document(s) CULTURE URINE [facility] _CULTURE URINE_$$[id number]$$[id number]$$[id number]$$146009$$799555$$235593$$090194$$902819$$897753$$ 347317$$961967$$320182$$502218$$801933$$026671$$701919$$852899$$784502$$872646$$ 727941$$178680$$343486$$656118$$004862$$881717$$307991$$[id number] -- Continued on next page --Patient: LETTIERE FABIANO Order: [id number] Page 2Culture: CULTURE URINE Status: Final ==== -- Continued on next page --Patient: LETTIERE FABIANO Order: [id number] Page 2Culture: CULTURE URINE Status: Prelim ===== -- Continued on next page --Patient: CANDIDO MARIO Order: [id number] Page 2Culture: CULTURE URINE Status: Prelim =====$$[id number]$$[id number] DATE/TIME: 10/18/2020 12:06Culture: CULTURE URINE Status: FinalIsolate 1 Enterococcus faecalis Flag: A . . . . . . .7Greater than 100,000 colony forming units per mL Previous result entered on 10/17/2020 14:24 ET Enterococcus faecalisSusceptibility results being verified. Final report to follow. Previous result entered on 10/17/2020 05:41 ET Microbiological testing to rule out the presence of possible pathogensis in progress.Urine Culture,Comprehensive: A1Mketovwklqqc faecalis Flag: APatient: CANDIDO MARIO Order: [id number] Page 3Culture: CULTURE URINE Status: Final ISOLATE 1 Enterococcus faecalis Isolate 1Antibiotic YONG IntUnits ug/mL ----Ciprofloxacin R R . . . . . .185-9Levofloxacin R R . . . . . .11170-8Pcxgacyknmebxr S S . . . . . .363-2Penicillin S S . . . . . .6932-8Tetracycline R R . . . . . .496- 0Vancomycin S S . . . . . .524-9P1 Test performed by: [facility] Janel GENESIS #: [id number] [address] [place] [address] [id number] [facility] [id number] Director : Ross Jeffers MD NPI #:Energy Rater : 10/17/20.0658.XMT.SENT REF 10/18/20.0700.XMT.SENT REF 10/18/20.1437.XMT.SENT REF ID Date Data Source [id number] 10/13/2020 11:45:00 PM EDT [facility]) Name Value Range Interpretation Code Description Data Melanie rce(s) Supporting Document(s) Urinalysis Laboratory test result [facility] ([facility]) SOURCE: Clean Catch Source Laboratory test result [facility] ([facility]) SOURCE: Clean Catch Clarity Laboratory test result [facility] ([place] [facility]) SOURCE: Clean Catch Color Laboratory test result [facility] ([place] [facility]) SOURCE: Clean Catch Spec [place] 1.010 1.001-1.030 [facility] ([facility]) SOURCE: Clean Catch Glucose Laboratory test result [facility] ([place] [facility] SOURCE: Clean Catch pH 7 5-9 [facility] [facility] SOURCE: Clean Catch Bilirubin Laboratory test result [facility] ([facility]) SOURCE: Clean Catch Ketone Laboratory test result [facility] ([facility]) SOURCE: Clean Catch Protein Laboratory test result [facility] ([facility]) SOURCE: Clean Catch Blood 25 Abnormal (applies to non-numeric res ults) [facility] ([facility]) SOURCE: Clean Catch Nitrite Laboratory test result [facility] ([facility]) SOURCE: Clean Catch Leuk Est 500 Abnormal (applies to non-numeric res ults) [facility] ([facility]) SOURCE: Clean Catch Urobilinogen Laboratory test result [facility] NT ([place] [facility] SOURCE: Clean Catch Microscopic Laboratory test result [facility] T ([place] [facility]) SOURCE: Clean Catch WBC Laboratory test result Abnormal (applies to non -numeric results) [facility] ([facility]) SOURCE: Clean Catch RBC Laboratory test result [facility] ([facility]) SOURCE: Clean Catch Epithelial Laboratory test result Abnormal (applies to non -numeric results) [facility] ([facility]) SOURCE: Clean Catch Bacteria Laboratory test result Abnormal (applies to non -numeric results) [facility] ([facility]) SOURCE: Clean Catch ID Date Data Source [id number] 10/13/2020 11:45:00 PM EDT [facility] ([facility]) Name Value Range Interpretation Code Description Data Melanie rce(s) Supporting Document(s) Culture Urine Laboratory test result [facility] ([facility]) SOURCE: Clean Catch ID Date Data Source [id number] 10/14/2020 12:22:00 AM EDT [facility] Name Value Range Interpretation Code Description Data Melanie rce(s) Supporting Document(s) URINALYSIS [facility] yellow NORMAL: Yellow [facility] CLARITY hazy NORMAL: Clear [facility] Specific gravity of Urine by Test strip 1.010 1.001 - 1.030 [facility] pH 7 5 - 9 [facility] Glucose [Mass/volume] in Urine by Test strip NORM N[facility]AL: [facility] Bilirubin.total [Presence] in Urine by Test strip NEG NORMAL: Negative [facility] Ketones [Presence] in Urine by Test strip NEG NORMAL: Negative [facility] Protein [Mass/volume] in Urine by Test strip NEG NORMAL: [facility] Nitrite [Presence] in Urine by Test strip NEG NORMAL: Negative [facility] BLOOD 25 NORMAL: Negative [facility] Leukocyte esterase [Presence] in Urine by Test strip 500 KANE L: Negative [facility] Urobilinogen [Mass/volume] in Urine by Test strip NOR less deanna n 1.0 mg/dL [facility] MICROSCOPIC See Below [facility] WBC 7 - 10 NORMAL: NONE SEEN [facility] Erythrocytes [#/volume] in Urine by Test strip 1 - 3 NORMAL: NON E SEEN [facility] EPITHELIAL MODERATE NORMAL: NONE SEEN A [facility] Bacteria [Presence] in Urine sediment by Light microscopy 2+ MOD NORMAL: NONE SEEN A [facility] ID Date Data Source [id number] 09/16/2020 05:22:00 AM EST [facility] ([facility]) Name Value Range Interpretation Code Description Data Melanie rce(s) Supporting Document(s) Bedside Glucose 82 mg/dL 80-115 [facility] ([facility]) ID Date Data Source [id number] 09/16/2020 04:34:00 AM EST [facility] ([facility]) Name Value Range Interpretation Code Description Data Melanie rce(s) Supporting Document(s) Urine Culture Laboratory test result [facility] ([facility]) <content>FULL REPORT IN LAB NOTES (eCW [...] FOR ESBL</content>
<content></content> ID Date Data Source [id number] 09/09/2020 12:43:00 AM EST [facility] ([facility]) Name Value Range Interpretation Code Description Data Melanie rce(s) Supporting Document(s) Laboratory test finding (navigational concept) 39.0 % 38.0-51.0 [facility] ([facility]) Laboratory test finding (navigational concept) 85 mg/dL 70-105 [facility] ([facility]) Laboratory test finding (navigational concept) 4.1 meq/L 3.5-5.1 [facility] ([facility]) Laboratory test finding (navigational concept) 142 meq/L 136-145 [facility] ([facility]) Laboratory test finding (navigational concept) 5.1 mg/dL 4.5-5.3 [facility] ([facility]) Laboratory test finding (navigational concept) 106 meq/L 98-109 [facility] ([facility]) Laboratory test finding (navigational concept) 18 mg/dL 8-26 [facility] ([facility]) Laboratory test finding (navigational concept) 29.0 MM/L 23.0-27.0 [facility] ([facility]) Laboratory test finding (navigational concept) 0.9 mg/dL 0.6-1.3 [facility] ([facility]) ID Date Data Source [id number] 09/09/2020 12:37:00 AM EST [facility] ([facility]) Name Value Range Interpretation Code Description Data Melanie rce(s) Supporting Document(s) Lipoprotein lipase [Enzymatic activity/volume] in Serum or P lasma 141 U/L 73-393 [facility] ([facility]) ID Date Data Source [id number] 09/09/2020 12:37:00 AM EST [facility] ([facility]) Name Value Range Interpretation Code Description Data Melanie rce(s) Supporting Document(s) Ast/Sgot 10 U/L 7-37 [facility] [facility] Alt/SGPT 16 U/L 12-78 [facility] [facility]) Alkaline Phosphatase 60 U/L 45-117 [facility] ([facility]) Bilirubin,Total 0.2 mg/dL 0.2-1.0 [facility] ([facility]) Bilirubin,Direct Laboratory test result 0.0-0.2 [facility] ([facility]) Total Protein 7.2 GM/DL 6.4-8.2 [facility] ([facility]) Albumin 3.2 GM/DL 3.2-5.2 [facility] [facility] Albumin/Globulin Ratio 0.8 1.2-2.2 [facility] ([facility]) ID Date Data Source [id number] 09/09/2020 12:37:00 AM EST [facility] ([facility]) Name Value Range Interpretation Code Description Data Melanie rce(s) Supporting Document(s) White Blood Count 5.2 10 4.0-10.0 [facility] ([facility]) Hemoglobin 11.7 g/dL 12.0-15.5 [facility] [facility] Red Blood Count 4.06 10 4.00-5.40 [facility] ([facility]) Hematocrit 38.6 % 36.0-47.0 [facility] ([facility]) Mean Corpuscular Volume 95.1 fl 80.0-96.0 [facility] ([facility]) Mean Corpuscular Hemoglobin 28.8 pg 27.0-33.0 [facility] ([facility]) Mean Corpuscular HGB Conc 30.3 g/dL 32.0-36.5 [facility] ([facility]) Platelet Count, Automated 180 10 150-450 [facility] ([facility]) Red Cell Distribution Width 14.7 % 11.5-14.5 [facility] ([facility]) Neutrophils % 50.9 % 36.0-66.0 [facility] ([facility]) Lymph % 37.5 % 24.0-44.0 [facility] [facility]) Johnson % 7.9 % 2.0-8.0 [facility] [facility]) Eos % 3.3 % 0.0-3.0 [facility] [facility]) Baso % 0.2 % 0.0-1.0 [facility] [facility]) Immature Granulocyte % 0.2 % 0-3.0 [facility] ([facility]) Nucleated Red Blood Cell % 0.0 % 0-0 [facility] ([facility]) Neutrophils # 2.6 10 1.5-8.5 [facility] ([facility]) Lymph # 1.9 10 1.5-5.0 [facility] [facility] Johnson # 0.4 10 0.0-0.8 [facility] [facility]) Eos # 0.2 10 0.0-0.5 [facility] [facility] Baso # 0.0 10 0.0-0.2 [facility] [facility] ID Date Data Source [id number] 08/12/2020 08:01:00 AM EST [facility] ([facility]) Name Value Range Interpretation Code Description Data Melanie rce(s) Supporting Document(s) Reflex Urine Culture Laboratory test result [facility] ([facility]) <content>FULL REPORT IN LAB NOTES (eCW [...] FOR ESBL</content>
<content></content> ID Date Data Source [id number] 08/12/2020 08:01:00 AM EST [facility] Name Value Range Interpretation Code Description Data Melanie rce(s) Supporting Document(s) Color, Urine RFX Laboratory test result [facility] ([facility]) Appearance, Urine RFX Laboratory test result [facility] ([place] [facility]) PH,Urine RFX 7.0 units 5.0-9.0 [facility] ([place] [facility]) Specific [place] Ur Auto RFX 1.008 1.002-1.035 [facility] ([place] [facility]) Protein, Urine Auto RFX Laboratory test result [facility] ([facility]) Ketone, Urine Auto RFX Laboratory test result [facility] ([facility]) Glucose, Urine (Ua) Auto RFX Laboratory test result [facility] ([facility]) Bilirubin, Urine Auto RFX Laboratory test result [facility] ([facility]) Urobilinogen, Urine Auto RFX 0.2 mg/dL 0.0-2.0 [facility] ([facility]) Nitrite, Urine Auto RFX Laboratory test result [facility] ([facility]) Blood, Urine Blood RFX Laboratory test result [facility] ([facility]) Leukocyte Esterase Ur Auto RFX Laboratory test result [facility] ([facility]) WBC, Urine Auto RFX 9 /HPF 0-3 [facility] ([facility]) Bacteria, Urine Auto RFX Laboratory test result [facility] ([facility]) RBC, Urine Auto RFX 9 /HPF 0-3 [facility] ([facility]) Squam Epithelial Cell Ur Aurfx 5 /HPF 0-6 [facility] ([facility]) Hyaline Cast, Urine Auto RFX 0 /LPF 0-1 M [facility] ([facility]) Mucus, Urine RFX Laboratory test result [facility] ([facility]) Amorphous Sediment RFX Laboratory test result [facility] ([facility]) ID Date Data Source [id number] 08/12/2020 07:52:00 AM EST [facility] Name Value Range Interpretation Code Description Data Melanie rce(s) Supporting Document(s) Gats Culture (Neg Strep SCR) Laboratory test result [facility] ([facility]) FULL REPORT IN LAB NOTES ([facility]CW and [facility] ). NEGATIVE FOR STREP PYOGENES (GROUP A) ID Date Data Source [id number] 08/12/2020 06:51:00 AM EST [facility] Name Value Range Interpretation Code Description Data Melanie rce(s) Supporting Document(s) Influenza A Amplification Laboratory test result [facility] ([facility]) Negative results do not preclude influen za or RSV virus infection and should not be used as the sole basis for treatment or other patient management decisions. RSV Amplification Laboratory test result [facility] ([facility]) Negative results do not preclude influen za or RSV virus infection and should not be used as the sole basis for treatment or other patient management decisions. Influenza B Amplification Laboratory test result [facility] ([place] [facility] Negative results do not preclude influen za or RSV virus infection and should not be used as the sole basis for treatment or other patient management decisions. Laboratory test finding (navigational concept) Laboratory test result [facility] ([facility]) A false negative result may occur [...] pathogens. DISCLAIMER: Testing was performed using the [employer] SARS-CoV-2 test. This test was developed and its performance characteristics determined by [employer]. This test has not been FDA cleared [...] or revoked sooner. ID Date Data Source [id number] 08/12/2020 06:51:00 AM EST [facility] Name Value Range Interpretation Code Description Data Melanie rce(s) Supporting Document(s) SARS coronavirus 2 RNA [Presence] in Res piratory specimen by MIL[facility] with probe detection NEGATIVE [facility] This lab was ordered by [facility] a nd reported by [facility]. ID Date Data Source [id number] 07/22/2020 04:54:00 AM EST [facility] ([facility]) Name Value Range Interpretation Code Description Data Melanie rce(s) Supporting Document(s) Reflex Urine Culture Laboratory test result [facility] ([place] [facility]) <content>FULL REPORT IN LAB NOTES [...] 1 S</content>
<content></content> ID Date Data Source [id number] 07/22/2020 04:54:00 AM EST [facility] Name Value Range Interpretation Code Description Data Melanie rce(s) Supporting Document(s) Color, Urine RFX Laboratory test result [facility] ([place] [facility]) Appearance, Urine RFX Laboratory test result [facility] ([place] [facility]) PH,Urine RFX 7.0 units 5.0-9.0 [facility] ([place] [facility]) Specific [place] Ur Auto RFX 1.005 1.002-1.035 [facility] ([place] [facility]) Protein, Urine Auto RFX Laboratory test result [facility] ([place] [facility]) Glucose, Urine (Ua) Auto RFX Laboratory test result [facility] ([place] [facility]) Urobilinogen, Urine Auto RFX 0.2 mg/dL 0.0-2.0 [facility] ([place] [facility]) Ketone, Urine Auto RFX Laboratory test result [facility] ([place] [facility]) Nitrite, Urine Auto RFX Laboratory test result [facility] ([place] [facility]) Bilirubin, Urine Auto RFX Laboratory test result [facility] ([place] [facility]) Leukocyte Esterase Ur Auto RFX Laboratory test result [facility] ([place] [facility]) Blood, Urine Blood RFX Laboratory test result [facility] ([place] [facility]) WBC, Urine Auto RFX 11 /HPF 0-3 [facility] ([facility]) RBC, Urine Auto RFX 1 /HPF 0-3 [facility] ([facility]) Squam Epithelial Cell Ur Aurfx 0 /HPF 0-6 [facility] ([facility]) Bacteria, Urine Auto RFX Laboratory test result [facility] ([facility]) Hyaline Cast, Urine Auto RFX 0 /LPF 0-1 M [facility] ([facility]) Mucus, Urine RFX Laboratory test result [facility] ([facility]) ID Date Data Source [id number] 07/01/2020 06:35:00 AM EST [facility] 1 OrderSheet [facility] Emergency Department [address] [place] [address] Phone #: ext- [phone] 07/01/2020 06:35 Patient: FABIANO RAMIREZ Sex: F : 1955 Age: 64yWEIGHT:76.2 kg (M)ALLERGIES: Darvacet, Demerol, MicrodentinCHIEF COMPLAINT: dysuriaDIAGNOSIS: Urinary tract infectious diseaseLAB ORDERSOrder Description Priority Entered Acknowledged InitialedUrinalysis (Clean STAT 06:47 07/01/2020 06:54 Tamia Hemphill) Tamia EganNFreya R.N.; Per protocol; Henri Boyle PhysicianCulture, Urine STAT 07:31 07/01/2020 07:35 Antionette(Urine, Clean Xavier Keenan) Physician;DIAGNOSTIC STUDY ORDERSOrder Description Priority Entered Acknowledged InitialedMEDICATION/IV/DRIP/FLUID ORDERSOrder Description Priority Entered Acknowledged InitialedGENERAL ORDERSOrder Description Priority Entered Acknowledged InitialedSplint (Aircast) R 06:49 07/01/2020 06:50 Tamia Clements RN; Starr RFreyaNFreya Verbal order per; Xavier Robertson Physician[Electronically signed by Liset Adan (07:46 07/01/2020)][Electronically signed by Xavier Robertson (08:41 07/01/2020)][Electronically locked by Liset Adan (07:46 07/01/2020)] Name Value Range Interpretation Code Description Data Melanie rce(s) Supporting Document(s) ID Date Data Source [id number] 07/01/2020 06:35:00 AM EST [facility] 1 Medication Reconciliation Report [facility] Emergency Department [address] [place] [address] Phone #: ext- [phone] 07/01/2020 06:35 Patient: [...] the Emergency Department: 2 Medication Reconciliation Report [facility] Emergency Department [address] [place] [address] Phone #: ext- [phone] 07/01/2020 06:35 Patient: FABIANO RAMIREZ Sex: F : 1955 Age: 64yNone.The following Medications were prescribed to the patient:ciprofloxacin 250 mg tablet Take 1 tablet twice a day for 7 days -- Dispense 14 tablet. Refills: 0.Substitution permitted.Pharmacy - [id number] - [id number] ; [place] [address]. . -- Xavier Robertson Physician Name Value Range Interpretation Code Description Data [facility](s) Supporting Document(s) ID Date Data Source [id number] 07/01/2020 06:35:00 AM [place] [address] Medication Administration Record [facility] Emergency Department [address] [place] [address] Phone #: ext- [phone] 07/01/2020 06:35 Patient: FABIANO RAMIREZ Sex: F : 1955 Age: 64yWeight: 76.2 kgHeight/Length: 59 inBMI: 34ALLERGIES: Darvacet, Demerol, MicrodentinDate/Time Medication Administered Medication Ordered Name Value Range Interpretation Code Description Data Melanie e(s) Supporting Document(s) ID Date Data Source [id number] 07/01/2020 06:35:00 AM [facility] 1 General Instructions [facility] Emergency Department [address] [place] [address] Phone #: ext- [phone] 07/01/2020 06:35 Patient: [...] Dispense 14 tablet. Refills: 0.Substitution permitted.Pharmacy - [id number] - [id number] ; [place] [address]. .Follow-up:Follow up with your healthcare provider in four days. Call for an appointment.Understanding of the discharge instructions v erbalized by patient. ADDITIONAL INFORMATION 2 General Instructions [facility] Emergency Department [address] [place] [address] Phone #: ext- [phone] 07/01/2020 06:35 Patient: [...] or burning when urinating 3 General Instructions [facility] Emergency Department [address] [place] [address] Phone #: ext- [phone] 07/01/2020 06:35 Patient: [...] (dehydration) Constipation Having sex 4 General In [facility] Emergency Department [address] [place] [address] Phone #: ext- [phone] 07/01/2020 06:35 Patient: [...] flush out your bladder. 5 General Instructions [facility] Emergency Department [address] [place] [address] Phone #: [phone] 07/01/2020 06:35 Patient: FABIANO RAMIREZ Sex: F [...] if the results will affect your treatment.Call [phone] if any of the following occur: [...] swelling in the outer vaginal area (labia) [phone] [employer]. [address] [place] [address]. All rights reserved. This information is not intended as asubstitute for professional medical care. Always follow your healthcare professional's instructions. You have been given the following additional information: Bladder Infection, Female (Adult) 6 General Instructions [facility] Emergency Department [address] [place] [address] Phone #: ext- [phone] 07/01/2020 06:35 Patient: FABIANO RAMIREZ Sex: F : 1955 Age: 64y(Electronically signed by Xavier Robertson, Physician 07/01/2020 08:41) Name Value Range Interpretation Code Description Data Melanie rce(s) Supporting Document(s) ID Date Data Source [id number] 07/01/2020 06:35:00 AM EST [facility] 1 Clinical Report - Nurses [facility] Emergency Department [address] [place] [address] Phone #: ext [phone] 07/01/2020 06:35 Patient: FABIANO RAMIREZ Sex: F : 1955 Age: 64yTRIAGEArrived by EMS. Historian: patient.Triage time: 06:35 07/01/2020. Acuity: LEVEL 4.Chief Complaint: PAINFUL URINATION.Onset. (2 days). No fever.EMS Treatment OFFICE REP:See EMS report.SEPSIS SCREEN: SEPSIS SCREEN NEGATIVE. No [...] Clements R.N.PROBLEMS: 2 Clinical Report - Nurses [facility] Emergency Department [address] [place] [address] Phone #: ext- [phone] 07/01/2020 06:35 [id number] Sex[facility] F : 1955 Age: 64y Diabetes Mellitus Type 2. Contusion. Arthritis. Ankle Injury. Cervical Strain. Spinal Tumor. Sprain. UTI - Urinary Tract Infection. Hypoglycemia. Incontinence. Lower Extremity Pain. --06:48 07/01/20 Tamia Clements R.N. ADDITIONAL SURGERIES: Appendectomy. Hernia Repair. Spinal surgery. --06:48 07/01/20 Tamia Clements R.N. History PAST MEDICAL HX: ( hx multiple UTIs). --06:47 07/01/20 Tamia Clemenst R.N. SOCIAL HX: Never smoker. No alcohol [...] 07/01/20 Xavier Robertson, Physician.PHYSICAL ASSESSMENTTo room via [facility].GENERAL / NEURO / PSYCH: Alert. Oriented X 4. Appears anxious.HEENT: Mucous membranes are pink.RESPIRATORY: Respirations not labored.CVS: Capillary refill less than 2 seconds.GI / : No emesis noted. Pain with urination. She has had frequency of urination. Urgency ofurination. Patient is incontinent of urine. 3 Clinical Report - Nurses [facility] Emergency Department [address] [place] [address] Phone #: ext- [phone] 07/01/2020 06:35 Patient: FABIANO RAMIREZ Sex: F [...] rce(s) Supporting Document(s) ID Date Data Source [id number] 07/01/2020 06:35:00 AM [facility] 1 Clinical Report - Physicians/Mid Levels [facility] Emergency Department [address] [place] [address] Phone #: ext- [phone] 07/01/2020 06:35 Patient: [...] Appendectomy. 2 Clinical Report - Physicians/Mid Levels [facility] Emergency Department [address] [place] [address] Phone #: ext- [phone] 07/01/2020 06:35 Patient: [...] turgor. 3 Clinical Report - Physicians/Mid Levels [facility] Emergency Department [address] [place] [address] Phone #: ext- [phone] 07/01/2020 06:35 Patient: FABIANO RAMIREZ Sex: F [...] pain.INSTRUCTIONS 4 Clinical Report - Physicians/Mid Levels [facility] Emergency Department [address] [place] [address] Phone #: ext- [phone] 07/01/2020 06:35 Patient: FABIANO RAMIREZ Sex: F [...] tablet. Refills: 0. Substitution permitted. Pharmacy - [id number] - [address] ; [place] [address]. . Follow-up: Follow up with your healthcare provider in four days. Call for an appointment. Understanding of the discharge instructions verbalized by patient.(Electronically signed by Xavier Robertson Physician 07/01/2020 08:41) Name Value Range Interpretation Code Description Data Melanie rubio(s) Supporting Document(s) ID Date Data Source [id number] 07/01/2020 06:50:00 AM EST [facility] ([facility]) Name Value Range Interpretation Code Description Data Melanie rubio(s) Supporting Document(s) Culture Urine Laboratory test result [facility] ([facility]) <content>_CULTURE URINE_</content>
<content>^$679706</content>
<content>^^968810</content>
<content>$$246411</content>
<content>^^674295</content>
<content>$$ 980818</content>
<content>$$020366</content>
<content>$$268648</content>
<content>$$ 191969</content>
<content>$$673038</content>
<content>$$976076</content>
<content> $$656964</content>
<content>$$639520</content>
<content>$$879557</conten t>
<content>$$006934</content>
<content>$$770365</content>
<content> $$235377</content>
<content>$$870864</content>
<content>$$200750</content>
<content>$$01447 0</content>
<content>$$908849</content>
<content>$$359482</content>
<content>$$380028</content>
<content>$$082761</content>
<content>$$482683</content>
<content>$$ 954249</content>
<content>$$080773</content>
<content>$$042681</content>
<content> ^^690053</content>
<content>$$597572</content>
<content>$$302422</conten t>
<content>$$121398</content>
<content></content>
<content>-- Continued on next page --</content>
<content>Patient: CANDIDO FABIANO Order: [id number] Page 2</content>
<content>Culture: CULTURE URINE Status: Final</laron nt>
<content> < /content>
<content></content>
<content></content>
<content>-- Continued on next page --</content>
<content>Patient: LETTIERE FABIANO Order: [id number] Page 2</content>
<content>Culture: CULTURE URINE Status: Prelim</content>
<content> < /content>
<content></content>
<content></content>
<content>-- Continued on next page --</content>
<content>Patient: LETTIERE FABIANO Order: [id number] Page 2</content>
<content>Culture: CULTURE URINE Status: Prelim</content>
<content> < /content>
<content></content>
<content>$$388268</content>
<content>$ $348274</content>
<content></content>
<content>REPORTED DATE/TIME: 07/05/2020 11:06</content>
<content>Culture: CULTURE [...]
<content></content>
<content></content>
<content> Patient: CANDIDO MARIO Order: [id number] Page 3</content>
<content>Culture: CULTURE URINE Status: Final</content>
[...] S S . . . . . .13700-6</content>
<content>Gentamicin S S . . . . . .267-5</content>
<content>Imipenem S S . . . . . .279-0</content>
<content>Levofloxacin S S . . . . . .52144-9</content>
<content>Meropenem S S . . . . . .6652-2</content>
<content>Nitrofurantoin S S . . . . . .363-2</content>
<content>Piperacillin/Tazobactam S S . . . . . .412-7</content>
<content>Tetracycline S S . . . . . .496-0</content>
<content>Tobramycin S S . . . . . .508-2</content>
<content>Trimethoprim/Sulfa S S . . . . . .516-5</content>
<content></content>
<content>P1 Test performed by: [facility]TADO #: [id number]</content>
<content>[address]</content>
<content>[id number]</content>
<content>Janel H[place]DLEST[place] [id number]</content>
<content>Improvement Manager : Ross Jeffers MD NPI #:</content>
<content>Energy Rater :</content>
<content>07/03/20.1551.XMT.SENT REF</content>
<content>07/04/20.1209.XMT.SENT REF</content>
<content>07/05/20.1201.XMT.SENT REF</content>
<content></content>
<content></content> ID Date Data Source [id number] 07/01/2020 06:50:00 AM EST [facility] ([facility]) Name Value Range Interpretation Code Description Data Melanie rce(s) Supporting Document(s) Urinalysis Laboratory test result [facility] ([facility]) URINALYSIS Source Laboratory test result [facility] ([facility]) SOURCE: Clean Catch Color Laboratory test result [facility] ([facility]) SOURCE: Clean Catch Clarity Laboratory test result [facility] ([facility]) SOURCE: Clean Catch Spec [place] 1.010 1.001-1.030 [facility] SOURCE: Clean Catch pH 7 5-9 [facility] [facility] SOURCE: Clean Catch Glucose Laboratory test result [facility] ([facility]) SOURCE: Clean Catch Bilirubin Laboratory test result [facility] ([facility] SOURCE: Clean Catch Ketone Laboratory test result [facility] ([facility]) SOURCE: Clean Catch Protein Laboratory test result [facility] ([facility] SOURCE: Clean Catch Nitrite Laboratory test result [facility] ([facility]) SOURCE: Clean Catch Blood 150 Abnormal (applies to non-numeric res ults) [facility]) SOURCE: Clean Catch Leuk Est 500 Abnormal (applies to non-numeric res ults) [facility] SOURCE: Clean Catch Urobilinogen Laboratory test result MED[facility] NT ([facility]) SOURCE: Clean Catch Microscopic Laboratory test result [facility] T ([facility]) SOURCE: Clean Catch WBC Laboratory test result Abnormal (applies to non -numeric results) [facility] ([facility]) SOURCE: Clean Catch RBC Laboratory test result Abnormal (applies to non -numeric results) [facility] ([facility]) SOURCE: Clean Catch Epithelial Laboratory test result Abnormal (applies to non -numeric results) [facility] [facility] SOURCE: Clean Catch Bacteria Laboratory test result Abnormal (applies to non -numeric results) [facility] SOURCE: Clean Catch ID Date Data Source [id number] 07/05/2020 12:01:00 PM EST [facility] Name Value Range Interpretation Code Description Data Melanie rce(s) Supporting Document(s) CULTURE URINE [facility] _CULTURE URINE_$$[id number]$$715449$$511639$$815527$$842027$$455713$$838471$$777691$$689624$$ 276117$$442130$$629154$$719487$$781193$$169509$$950857$$835019$$168191$$439861$$ 710677$$716049$$108039$$691997$$319918$$183106$$791704$$605249 -- Continued on next page --Patient: CANDIDO MARIO Order: [id number] Page 2Culture: CULTURE URINE Status: Final ==== -- Continued on next page --Patient: CANDIDO MARIO Order: [id number] Page 2Culture: CULTURE URINE Status: Prelim ===== -- Continued on next page --Patient: CANDIDO MARIO Order: [id number] Page 2Culture: CULTURE URINE Status: Prelim =====$$[id number]$$[id number] DATE/TIME: 07/05/2020 11:06Culture: CULTURE URINE Status: FinalIsolate [...] presence of possible pathogensis in progress.Urine Culture,Comprehensive: D7Desiinekhpc coli Flag: APatient: CANDIDO MARIO Order: [id number] Page 3Culture: CULTURE URINE Status: Final ====ISOLATE [...] S S . . . . . .27174-6Gcckqptyus S S . . . . . .267-5Imipenem S S . . . . . .279- 0Levofloxacin S S . . . . . .98888-7Tpzbgbvei S S . . . . . .6652-2Nitrofurantoin S S . . . . . .363-2Piperacillin/Tazobactam S S . . . . . .412-7Tetracycline S S . . . . . .496-0Tobramycin S S . . . . . .508-2Trimethoprim/Sulfa S S . . . . . .516-5P1 Test performed by: [facility] #: [id number] [address] [facility] [id number] [facility] [id number] Director : Ross Jeffers MD NPI #:Energy Rater : 07/03/20.1551.XMT.SENT REF 07/04/20.1209.XMT.SENT REF 07/05/20.1201.XMT.SENT REF ID Date Data Source [id number] 07/01/2020 07:08:00 AM EST [facility] Name Value Range Interpretation Code Description Data Melanie rce(s) Supporting Document(s) [facility] COL[facility] yellow NORMAL: Yellow [facility] CLARITY clear NORMAL: Clear [facility] Specific gravity of Urine by Test strip 1.010 1.001 - 1.030 [facility] pH 7 5 - 9 [facility] Glucose [Mass/volume] in Urine by Test strip NORM NORMAL: Negat [facility] Bilirubin.total [Presence] in Urine by Test strip NEG NORMAL: Negative [facility] Ketones [Presence] in Urine by Test strip NEG NORMAL: Negative [facility] Protein [Mass/volume] in Urine by Test strip [facility]G [facility]AL[facility] Nit[facility] [Presence] in Urine by Test strip POS NORMAL: Negative [facility] BLOOD 150 NORMAL: Negative [facility] Leukocyte esterase [Presence] in Urine by Test strip 500 KANE L: Negative [facility] Urobilinogen [Mass/volume] in Urine by Test strip NOR less deanna n 1.0 mg/dL [facility] MICROSCOPIC See Below [facility] WBC 5 - 7 NORMAL: NONE SEEN A [facility] Erythrocytes [#/volume] in Urine by Test strip 7 - 10 NORMAL: NON E SEEN A [facility] EPITHELIAL MODERATE NORMAL: NONE SEEN A [facility] Bacteria [Presence] in Urine sediment by Light microscopy 3+ LARGE NORMAL: NONE SEEN A [facility] ID Date Data Source [id number] 06/08/2020 02:10:00 PM EST [facility] ([facility]) Name Value Range Interpretation Code Description Data Melanie rce(s) Supporting Document(s) Erythrocytes [#/volume] in Blood by Automated count 4.16 x10*6/UL 4.2 0-6.30 [facility] ([facility]) Leukocytes [#/volume] in Blood by Automated count 5.4 x10*3/UL 4.1-10 .9 [facility] ([facility]) Hemoglobin [Mass/volume] in Blood 12.5 g/dL 12.0-18.0 [facility] ([facility]) Hematocrit [Volume Fraction] of Blood by Automated count 37.8 % 3 7.0-51.0 [facility] ([facility]) MCHC 33.0 g/dL 31.0-38.0 [facility] [facility] MCH 30.1 pg 26.0-32.0 [facility] ([place] [facility] MCV 91.0 fL 80.0-97.0 [facility] [facility] Platelets [#/volume] in Blood by Automated count 219 x10*3/UL 140-440 [facility] ([facility]) Erythrocyte distribution width [Ratio] by Automated count 14.4 % 11.6-13.7 [facility] ([facility]) MPV 6.9 FL 7.8-11.0 [facility] [facility] Lymph % 27.9 % 10.0-58.5 [facility] [facility] Neut % 65.6 % 37.0-92.0 [facility] [facility] Mid % 6.5 % 1.7-9.3 [facility] [facility] Neut # 3.5 x10*3/UL 2.0-7.8 [facility] ([facility]) Lymph # 1.5 x10*3/UL 0.6-4.1 [facility] ([facility]) Mid # 0.4 x10*3/UL 0.1-0.6 [facility] ([facility]) ID Date Data Source [id number] 05/04/2020 01:59:00 PM EDT [facility] ([facility]) Name Value Range Interpretation Code Description Data Melanie rce(s) Supporting Document(s) Triglyceride [Mass/volume] in Serum or Plasma 186 mg/dL 30-150 [facility] ([facility]) Cholesterol [Mass/volume] in Serum or Plasma 180 mg/dL 131-200 [facility] ([facility]) Cholesterol in HDL [Mass/volume] in Serum or Plasma 55 mg/dL 35-60 [facility] ([facility]) Cholesterol in LDL [Mass/volume] in Serum or Plasma by calcu lation 88 CALC 50-159 [facility] ([facility]) ID Date Data Source [id number] 05/04/2020 01:59:00 PM EDT [facility] ([facility]) Name Value Range Interpretation Code Description Data Melanie rce(s) Supporting Document(s) Glucose [Mass/volume] in Serum or Plasma 86 mg/dL 74-99 [facility] ([facility]) 100-125 mg/dL PRE-DIABETES/FASTING >126 mg/dL DIABETES/FASTING Urea nitrogen [Mass/volume] in Serum or Plasma 14 mg/dL 7-18 [facility] ([facility]) Creatinine 1.0 mg/dL 0.6-1.3 [facility] Sodium [Moles/volume] in Serum or Plasma 144 meq/L 136-145 [facility] ([facility]) Chloride [Moles/volume] in Serum or Plasma 105 meq/L 98-107 [facility] ([facility]) Potassium [Moles/volume] in Serum or Plasma 4.0 meq/L 3.5-5.1 [facility] ([facility]) Calcium [Mass/volume] in Serum or Plasma 9.9 mg/dL 8.5-10.1 [facility] ([facility]) Carbon dioxide, total [Moles/volume] in Serum or Plasma 36 meq/L 21 -32 [facility] ([facility]) Total Bilirubin 0.2 mg/dL 0.2-1.0 [facility] Alkaline phosphatase isoenzyme [Units/volume] in Serum or Pl asma 55 mg/dL 46-116 [facility] ([facility]) Aspartate aminotransferase [Enzymatic activity/volume] in Serum or Plasma 23 U/L 15-37 [facility] ([facility] ) Alanine aminotransferase [Enzymatic activity/volume] in Seru m or Plasma 26 U/L 12-78 [facility] ([facility]) Albumin [Mass/volume] in Serum or Plasma 3.7 g/dL 3.4-5.0 [facility] ([facility]) Proteinase 3 Ab [Units/volume] in Serum 7.7 g/dL 6.4-8.2 [facility] ([facility]) Glomerular filtration rate/1.73 sq M pre dicted among blacks [Volume Rate/Area] in Serum or Plasma by Creatinine-based formula (MDRD) Laboratory test result [facility] ([place] [facility] <content>CHRONIC KIDNEY DISEASE STAGING PER NKF</content>
<content></content>
<content>STAGE I & II GFR >= 60 NORMAL TO MILDLY DECREASED</content>
<content>STAGE III GFR 30-59 MODERATELY DECREASED</content>
<content>STAGE IV GFR 15-29 SEVERELY DECREASED</content>
<content>STAGE V GFR <15 VERY LITTLE GFR LEFT</content>
<content>ESRD GFR <15 ON [employer]CHOOL [employer]AS[employer]ER</content>
<content></content> A/G Ratio 0.93 CALC 1.00-1.90 [facility] ([place] [facility] Glomerular filtration rate/1.73 sq M pre dicted among non-blacks [Volume Rate/Area] in Serum or Plasma by Creatinine-based formula (MDRD) 56 mL/min [facility] ([facility]) ID Date Data Source [id number] 05/04/2020 01:59:00 PM EDT [facility] ([facility] Name Value Range Interpretation Code Description Data Melanie rce(s) Supporting Document(s) Leukocytes [#/volume] in Blood by Automated count 5.8 x10*3/UL 4.1-10 .9 [facility] ([facility]) Hemoglobin [Mass/volume] in Blood 12.1 g/dL 12.0-18.0 [facility] ([facility]) Erythrocytes [#/volume] in Blood by Automated count 4.06 x10*6/UL 4.2 0-6.30 [facility] ([facility]) MCV 91.6 fL 80.0-97.0 [facility] [facility] Hematocrit [Volume Fraction] of Blood by Automated count 37.2 % 3 7.0-51.0 [facility] ([facility]) MCHC 32.6 g/dL 31.0-38.0 [facility] [facility] MCH 29.8 pg 26.0-32.0 [facility] ([place] [facility]) Erythrocyte distribution width [Ratio] by Automated count 14.4 % 11.6-13.7 [facility] ([facility]) Platelets [#/volume] in Blood by Automated count 240 x10*3/UL 140-440 [facility] ([facility]) MPV 7.1 FL 7.8-11.0 [facility] [facility] Lymph % 26.4 % 10.0-58.5 [facility] [facility] Mid % 7.1 % 1.7-9.3 [facility] [facility] Neut % 66.5 % 37.0-92.0 [facility] [facility] Neut # 3.8 x10*3/UL 2.0-7.8 [facility] ([facility]) Mid # 0.5 x10*3/UL 0.1-0.6 [facility] ([facility]) Lymph # 1.5 x10*3/UL 0.6-4.1 [facility] ([facility]) Procedure Social History No Information Vital Signs ID Date Data Source UNK Name Value Range Interpretation Code Description Data Source(s) Systolic blood pressure 134 mm[Hg] 134 mm[Hg] [facility] ([facility], ) Diastolic blood pressure 84 mm[Hg] 84 mm[Hg] [facility] ([facility]) Heart rate 87 /min 87 /min [facility] ([facility]) Oxygen saturation in Arterial blood by Pulse oximetry 93 % 93 % [facility] ([facility]) Body temperature 97.0 [degF] 97.0 [degF] [facility] ([facility]) Body height 59 [in_i] 59 [in_i] [facility] ([facility]) 4'11" Body weight 152.00 [lb_av] 152.00 [lb_av] [facility] ([facility]) Body mass index (BMI) [Ratio] 30.7 kg/m2 30.7 k g/m2 [facility] ([facility]) [place] body weight 100 [lb_av] 100 [facility]_av[facility] Body weight 68.947 kg 68.947 kg [facility] ([facility]) Body surface area Derived from formula 1.64 m2 1.64 m2 [facility] ([facility]) Systolic blood pressure 122 mm[Hg] 122 mm[Hg] [facility] ([facility]) Diastolic blood pressure 80 mm[Hg] 80 mm[Hg] [facility] ([facility]) Heart rate 102 /min 102 /min [facility] ([facility]) Body height 59 [in_i] 59 [in_i] [facility]) 4'11" Body weight 157.00 [lb_av] 157.00 [lb_av] [facility] ([facility]) Oxygen saturation in Arterial blood by Pulse oximetry 97 % 97 % [facility] ([facility]) Body mass index (BMI) [Ratio] 31.7 kg/m2 31.7 k g/m2 [facility] ([facility]) Body mass index (BMI) [Ratio] 31.5 kg/m2 31.5 k g/m2 [facility] ([facility]) Heart rate 94 /min 94 /min [facility] ([facility]) Body height 59 [in_i] 59 [in_i] [facility] ([facility]) 4'11" Body weight 156.00 [lb_av] 156.00 [lb_av] [facility] ([facility]) Oxygen saturation in Arterial blood by Pulse oximetry 96 % 96 % [facility] ([facility]) Systolic blood pressure 116 mm[Hg] 116 mm[facility]Hg] [facility] Diastolic blood pressure 72 mm[Hg] 72 mm[Hg] [facility] ([facility]) Body mass index (BMI) [Ratio] 31.3 kg/m2 31.3 k g/m2 [facility] ([facility]) Heart rate 94 /min 94 /min [facility] ([facility]) Body height 59 [in_i] 59 [in_i] [facility] ([facility]) 4'11" Body weight 155.00 [lb_av] 155.00 [lb_av] [facility] Oxygen saturation in Arterial blood by Pulse oximetry 96 % 96 % [facility] ([facility])
[2021-07-01 17:38] LABS: BASO % 0.4 % (0.0-1.0); EOS # 0.1 10^3/uL (0.0-0.5); EOS % 2.9 % (0.0-3.0); HEMATOCRIT 35.8 % (36.0-47.0); HEMOGLOBIN 11.2 g/dl (12.0-15.5); LYMPH # 1.5 10^3/uL (1.5-5.0); LYMPH % 31.6 % (24.0-44.0); MEAN CORPUSCULAR HEMOGLOBIN 29.9 pg (27.0-33.0); MEAN CORPUSCULAR HGB CONC 31.3 g/dl (32.0-36.5); MEAN CORPUSCULAR VOLUME 95.5 fl (80.0-96.0); MONO # 0.4 10^3/uL (0.0-0.8); MONO % 7.6 % (2.0-8.0); NEUTROPHILS # 2.8 10^3/uL (1.5-8.5); NEUTROPHILS % 57.3 % (36.0-66.0); PLATELET COUNT, AUTOMATED 167 10^3/uL (150-450); RED BLOOD COUNT 3.75 10^6/uL (4.00-5.40); WHITE BLOOD COUNT 4.8 10^3/uL (4.0-10.0)
[2021-07-01 18:07] LABS: ALBUMIN 3.1 GM/DL (3.2-5.2); ALT/SGPT 34 U/L (12-78); BILIRUBIN,DIRECT 0.1 MG/DL (0.0-0.2); BILIRUBIN,TOTAL 0.3 MG/DL (0.2-1.0); BLOOD UREA NITROGEN 15 MG/DL (7-18); CALCIUM LEVEL 9.4 MG/DL (8.8-10.2); CARBON DIOXIDE LEVEL 28 MEQ/L (21-32); CHLORIDE LEVEL 111 MEQ/L (98-107); CREATININE FOR GFR 0.68 MG/DL (0.55-1.30); GLOMERULAR FILTRATION RATE > 60.0 (>45); GLUCOSE, FASTING 83 MG/DL (70-100); LIPASE 152 U/L (73-393); POTASSIUM SERUM 4.1 MEQ/L (3.5-5.1); SODIUM LEVEL 142 MEQ/L (136-145)
--- NOTE | 2021-07-01 21:10 | REPVR ---
PROCEDURE INFORMATION: Exam: US Duplex Left Lower Extremity Veins, Limited Exam date and time: 07/01/2021 8:02 PM Age: 65 years old Clinical indication: Edema, localized; Lower extremity, left; Additional info: Swelling TECHNIQUE: Imaging protocol: Real-time Duplex ultrasound of the Left Lower Extremity with 2-D reyna scale, color Doppler flow and spectral waveform analysis with image documentation. Limited exam focused on the left lower extremity veins. COMPARISON: US Duplex, Ext,LOWER veins,unilat 06/25/2015 9:24 AM FINDINGS: Left deep veins: Suboptimal visualization of the common femoral and proximal profunda femoral veins. The femoral, popliteal and posterior tibial veins are patent without thrombus. Normal compressibility, augmentation response and Doppler waveforms. Left superficial veins: Unremarkable. Saphenofemoral junction is patent without thrombus. Soft tissues: 5.1 x 1.4 x 3 cm popliteal cyst. IMPRESSION: 1. Limited examination without sonographic evidence of deep vein thrombosis. 2. 5.1 x 1.4 x 3 cm popliteal cyst. Electronically signed by: Jasen Eli On 07/01/2021 21:09:59 PM
== END 2021-07-01 21:48 | disposition home or self-care (01) ==
LOC: M ED 12:57
DX: R15.9 Full incontinence of feces (principal); R22.42 Localized swelling, mass and lump, left lower limb; K21.9 Gastro-esophageal reflux disease without esophagitis; G43.909 Migraine, unspecified, not intractable, without status migrainosus; N31.9 Neuromuscular dysfunction of bladder, unspecified; Z86.718 Personal history of other venous thrombosis and embolism; J45.909 Unspecified asthma, uncomplicated; J44.9 Chronic obstructive pulmonary disease, unspecified; K59.00 Constipation, unspecified; F31.9 Bipolar disorder, unspecified; F41.9 Anxiety disorder, unspecified; M54.9 Dorsalgia, unspecified; M71.22 Synovial cyst of popliteal space [Baker], left knee; Z79.01 Long term (current) use of a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; Z79.899 Other long term (current) drug therapy; Z88.0 Allergy status to penicillin; Z91.040 Latex allergy status; Z88.8 Allergy status to other drugs, medicaments and biological substances

== ENCOUNTER 2021-07-08 11:40 | Emergency (ER) | payer MEDICARE, MEDICAID ==
[~2021-07-08] VITALS: Ht 149.9 cm; Wt 70.9 kg
[2021-07-08 11:40] VITALS: BP 139/82
[2021-07-08] MEDS ORDERED: BACTDSTA (12:00)
[2021-07-08 13:30] LABS: BASO % 0.6 % (0.0-1.0); EOS # 0.2 10^3/uL (0.0-0.5); EOS % 4.3 % (0.0-3.0); HEMATOCRIT 35.8 % (36.0-47.0); HEMOGLOBIN 11.2 g/dl (12.0-15.5); LYMPH # 1.8 10^3/uL (1.5-5.0); MEAN CORPUSCULAR HEMOGLOBIN 29.9 pg (27.0-33.0); MEAN CORPUSCULAR HGB CONC 31.3 g/dl (32.0-36.5); MEAN CORPUSCULAR VOLUME 95.7 fl (80.0-96.0); MONO # 0.3 10^3/uL (0.0-0.8); MONO % 6.4 % (2.0-8.0); NEUTROPHILS # 2.4 10^3/uL (1.5-8.5); NEUTROPHILS % 50.5 % (36.0-66.0); PLATELET COUNT, AUTOMATED 202 10^3/uL (150-450); RED BLOOD COUNT 3.74 10^6/uL (4.00-5.40); WHITE BLOOD COUNT 4.7 10^3/uL (4.0-10.0)
[2021-07-08 13:41] LABS: INR 1.11; PROTHROMBIN TIME 14.7 SECONDS (12.7-14.5)
[2021-07-08 13:42] LABS: PARTIAL THROMBOPLASTIN TIME 32.2 SECONDS (25.9-37.0)
[2021-07-08 13:58] LABS: ALBUMIN 3.3 GM/DL (3.2-5.2); ALT/SGPT 20 U/L (12-78); BILIRUBIN,TOTAL 0.1 MG/DL (0.2-1.0); BLOOD UREA NITROGEN 18 MG/DL (7-18); CALCIUM LEVEL 9.3 MG/DL (8.8-10.2); CARBON DIOXIDE LEVEL 27 MEQ/L (21-32); CHLORIDE LEVEL 109 MEQ/L (98-107); CREATININE FOR GFR 0.69 MG/DL (0.55-1.30); GLOMERULAR FILTRATION RATE > 60.0 (>45); GLUCOSE, FASTING 92 MG/DL (70-100); POTASSIUM SERUM 4.8 MEQ/L (3.5-5.1); SODIUM LEVEL 141 MEQ/L (136-145); TOTAL PROTEIN 7.2 GM/DL (6.4-8.2)
== END 2021-07-08 15:23 | disposition left against medical advice (07) ==
LOC: M ED 11:40
DX: R31.9 Hematuria, unspecified (principal); M54.9 Dorsalgia, unspecified; Z53.9 Procedure and treatment not carried out, unspecified reason; Z87.440 Personal history of urinary (tract) infections; F31.9 Bipolar disorder, unspecified; Z86.718 Personal history of other venous thrombosis and embolism; Z79.01 Long term (current) use of a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; Z79.899 Other long term (current) drug therapy; Z88.0 Allergy status to penicillin; Z88.8 Allergy status to other drugs, medicaments and biological substances; Z91.040 Latex allergy status

== ENCOUNTER 2021-07-13 00:32 | Emergency (ER) | payer MEDICARE, MEDICAID ==
[~2021-07-13] VITALS: Ht 149.9 cm; Wt 63.0 kg
[~2021-07-13 00:32] MED LIST changes: +BACTDSTA; +POTA-149 PO; +POTA-151 PO; -POTA10TA16 PO; -POTA20TA6 PO
[2021-07-13] MEDS ORDERED: MICR1TAB5 (00:46)
[2021-07-13] MEDS ORDERED: [UNRECOGNIZED DRUG - CODE] (00:46)
[2021-07-13] MEDS ORDERED: CLON0.5T2 (00:46)
[2021-07-13] MEDS ORDERED: LOPE1CAP5 (00:46)
[2021-07-13] MEDS ORDERED: ACETAMINOPHEN TAB 650MG DOSE (2X325MG) PO ONE (08:50)
[2021-07-13] MEDS ORDERED: NS 1,000 ML IV ONE (08:50)
[2021-07-13 09:41] LABS: BASO % 0.4 % (0.0-1.0); EOS # 0.1 10^3/uL (0.0-0.5); EOS % 2.4 % (0.0-3.0); HEMATOCRIT 39.2 % (36.0-47.0); HEMOGLOBIN 12.6 g/dl (12.0-15.5); LYMPH # 1.7 10^3/uL (1.5-5.0); LYMPH % 31.5 % (24.0-44.0); MEAN CORPUSCULAR HEMOGLOBIN 30.1 pg (27.0-33.0); MEAN CORPUSCULAR HGB CONC 32.1 g/dl (32.0-36.5); MEAN CORPUSCULAR VOLUME 93.6 fl (80.0-96.0); MONO # 0.3 10^3/uL (0.0-0.8); NEUTROPHILS # 3.2 10^3/uL (1.5-8.5); NEUTROPHILS % 59.5 % (36.0-66.0); PLATELET COUNT, AUTOMATED 206 10^3/uL (150-450); RED BLOOD COUNT 4.19 10^6/uL (4.00-5.40); WHITE BLOOD COUNT 5.3 10^3/uL (4.0-10.0)
[2021-07-13 10:02] LABS: ALBUMIN 3.6 GM/DL (3.2-5.2); BILIRUBIN,DIRECT 0.1 MG/DL (0.0-0.2); BILIRUBIN,TOTAL 0.3 MG/DL (0.2-1.0); TOTAL PROTEIN 7.7 GM/DL (6.4-8.2)
[2021-07-13 10:25] VITALS: BP 159/95
== END 2021-07-13 11:02 | disposition home or self-care (01) ==
LOC: M ED 00:32
DX: R30.0 Dysuria (principal); R31.1 Benign essential microscopic hematuria; F41.9 Anxiety disorder, unspecified; F31.89 Other bipolar disorder; N31.9 Neuromuscular dysfunction of bladder, unspecified; K21.9 Gastro-esophageal reflux disease without esophagitis; Z87.448 Personal history of other diseases of urinary system; J44.9 Chronic obstructive pulmonary disease, unspecified; K59.00 Constipation, unspecified; Z79.01 Long term (current) use of a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; Z79.899 Other long term (current) drug therapy; Z88.0 Allergy status to penicillin; Z88.8 Allergy status to other drugs, medicaments and biological substances; Z91.040 Latex allergy status

== ENCOUNTER 2021-07-27 12:01 | Emergency (ER) | payer MEDICARE, MEDICAID ==
[~2021-07-27] VITALS: Ht 149.9 cm; Wt 77.3 kg
[~2021-07-27 12:01] MED LIST changes: +CLON0.5T2; +LOPE1CAP5; +MICR1TAB5; +[UNRECOGNIZED DRUG - CODE]
[2021-07-27 14:30] LABS: BASO % 0.7 % (0.0-1.0); EOS # 0.3 10^3/uL (0.0-0.5); EOS % 6.1 % (0.0-3.0); HEMATOCRIT 35.9 % (36.0-47.0); HEMOGLOBIN 11.4 g/dl (12.0-15.5); LYMPH # 1.9 10^3/uL (1.5-5.0); MEAN CORPUSCULAR HEMOGLOBIN 30.2 pg (27.0-33.0); MEAN CORPUSCULAR HGB CONC 31.8 g/dl (32.0-36.5); MONO # 0.3 10^3/uL (0.0-0.8); MONO % 6.1 % (2.0-8.0); NEUTROPHILS % 44.9 % (36.0-66.0); PLATELET COUNT, AUTOMATED 163 10^3/uL (150-450); RED BLOOD COUNT 3.78 10^6/uL (4.00-5.40); WHITE BLOOD COUNT 4.4 10^3/uL (4.0-10.0)
[2021-07-27 15:05] LABS: ALBUMIN 3.3 GM/DL (3.2-5.2); ALT/SGPT 19 U/L (12-78); BILIRUBIN,TOTAL < 0.1 MG/DL (0.2-1.0); BLOOD UREA NITROGEN 9 MG/DL (7-18); CALCIUM LEVEL 8.9 MG/DL (8.8-10.2); CARBON DIOXIDE LEVEL 29 MEQ/L (21-32); CHLORIDE LEVEL 111 MEQ/L (98-107); CREATININE FOR GFR 0.57 MG/DL (0.55-1.30); GLOMERULAR FILTRATION RATE > 60.0 (>45); GLUCOSE, FASTING 81 MG/DL (70-100); POTASSIUM SERUM 4.6 MEQ/L (3.5-5.1); SODIUM LEVEL 143 MEQ/L (136-145); TOTAL PROTEIN 6.9 GM/DL (6.4-8.2)
[2021-07-27 19:46] VITALS: BP 131/70
== END 2021-07-27 19:47 | disposition home or self-care (01) ==
LOC: M ED 12:01 → EDBD 12:01 → M ED 19:47
DX: R30.0 Dysuria (principal); Z79.01 Long term (current) use of a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; Z79.899 Other long term (current) drug therapy; Z88.0 Allergy status to penicillin; Z88.8 Allergy status to other drugs, medicaments and biological substances; Z91.040 Latex allergy status

== ENCOUNTER 2021-09-02 19:25 | Emergency (ER) | payer MEDICARE, MEDICAID ==
[~2021-09-02] VITALS: Ht 154.9 cm; Wt 58.1 kg
[2021-09-02] MEDS ORDERED: NS 1,000 ML IV ONE (22:40)
[2021-09-02 23:13] LABS: BASO % 0.6 % (0.0-1.0); EOS # 0.2 10^3/uL (0.0-0.5); EOS % 6.7 % (0.0-3.0); HEMATOCRIT 36.1 % (36.0-47.0); HEMOGLOBIN 11.4 g/dl (12.0-15.5); LYMPH # 1.7 10^3/uL (1.5-5.0); LYMPH % 50.7 % (24.0-44.0); MEAN CORPUSCULAR HGB CONC 31.6 g/dl (32.0-36.5); MONO # 0.2 10^3/uL (0.0-0.8); MONO % 6.7 % (2.0-8.0); NEUTROPHILS # 1.2 10^3/uL (1.5-8.5); PLATELET COUNT, AUTOMATED 160 10^3/uL (150-450); WHITE BLOOD COUNT 3.4 10^3/uL (4.0-10.0)
[2021-09-02 23:40] LABS: BLOOD UREA NITROGEN 14 MG/DL (7-18); CALCIUM LEVEL 9.7 MG/DL (8.8-10.2); CARBON DIOXIDE LEVEL 30 MEQ/L (21-32); CHLORIDE LEVEL 108 MEQ/L (98-107); CREATININE FOR GFR 0.63 MG/DL (0.55-1.30); GLOMERULAR FILTRATION RATE > 60.0 (>45); GLUCOSE, FASTING 87 MG/DL (70-100); POTASSIUM SERUM 5.1 MEQ/L (3.5-5.1); SODIUM LEVEL 143 MEQ/L (136-145)
[2021-09-03] MEDS ORDERED: ACETAMINOPHEN 325 MG TAB PO ONE
[2021-09-03 01:29] VITALS: BP 177/84
== END 2021-09-03 01:32 | disposition home or self-care (01) ==
LOC: M ED 19:25
DX: R30.0 Dysuria (principal); R51.9 Headache, unspecified; Z78.0 Asymptomatic menopausal state; Z88.0 Allergy status to penicillin; Z88.8 Allergy status to other drugs, medicaments and biological substances; Z91.040 Latex allergy status; Z79.899 Other long term (current) drug therapy; Z79.01 Long term (current) use of a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

== ENCOUNTER 2021-09-06 11:47 | Emergency (ER) | payer MEDICARE, MEDICAID ==
[~2021-09-06] VITALS: Ht 149.9 cm; Wt 65.6 kg
[2021-09-06 16:49] VITALS: BP 136/78
== END 2021-09-06 16:54 | disposition home or self-care (01) ==
LOC: M ED 11:47
DX: R09.89 Other specified symptoms and signs involving the circulatory and respiratory systems (principal); J45.909 Unspecified asthma, uncomplicated; G43.909 Migraine, unspecified, not intractable, without status migrainosus; F31.9 Bipolar disorder, unspecified; Z79.01 Long term (current) use of a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; Z79.899 Other long term (current) drug therapy; Z88.0 Allergy status to penicillin; Z88.8 Allergy status to other drugs, medicaments and biological substances; Z91.040 Latex allergy status

== ENCOUNTER 2021-09-15 19:47 | Emergency (ER) | payer MEDICARE, MEDICAID ==
[~2021-09-15] VITALS: Ht 152.4 cm; Wt 69.4 kg
[2021-09-15 21:03] LABS: BASO % 0.5 % (0.0-1.0); EOS # 0.2 10^3/uL (0.0-0.5); EOS % 4.3 % (0.0-3.0); HEMATOCRIT 37.1 % (36.0-47.0); HEMOGLOBIN 11.6 g/dl (12.0-15.5); LYMPH # 1.9 10^3/uL (1.5-5.0); LYMPH % 42.5 % (24.0-44.0); MEAN CORPUSCULAR HGB CONC 31.3 g/dl (32.0-36.5); MEAN CORPUSCULAR VOLUME 95.9 fl (80.0-96.0); MONO # 0.3 10^3/uL (0.0-0.8); MONO % 5.9 % (2.0-8.0); NEUTROPHILS # 2.1 10^3/uL (1.5-8.5); NEUTROPHILS % 46.6 % (36.0-66.0); PLATELET COUNT, AUTOMATED 153 10^3/uL (150-450); RED BLOOD COUNT 3.87 10^6/uL (4.00-5.40); WHITE BLOOD COUNT 4.4 10^3/uL (4.0-10.0)
[2021-09-15 21:40] LABS: ALBUMIN 3.3 GM/DL (3.2-5.2); ALT/SGPT 20 U/L (12-78); BILIRUBIN,DIRECT < 0.1 MG/DL (0.0-0.2); BILIRUBIN,TOTAL < 0.1 MG/DL (0.2-1.0); BLOOD UREA NITROGEN 13 MG/DL (7-18); CALCIUM LEVEL 9.4 MG/DL (8.8-10.2); CARBON DIOXIDE LEVEL 27 MEQ/L (21-32); CHLORIDE LEVEL 109 MEQ/L (98-107); CREATININE FOR GFR 0.72 MG/DL (0.55-1.30); ETHYL ALCOHOL (ETHANOL) < 0.003 % (0.000-0.010); GLOMERULAR FILTRATION RATE > 60.0 (>45); GLUCOSE, FASTING 82 MG/DL (70-100); LIPASE 246 U/L (73-393); POTASSIUM SERUM 3.8 MEQ/L (3.5-5.1); SODIUM LEVEL 142 MEQ/L (136-145); TOTAL PROTEIN 7.2 GM/DL (6.4-8.2)
[2021-09-15] MEDS ORDERED: PROMETHAZINE INJ 25 MG/ML VIAL (J2550) IV ONE (22:40)
[2021-09-15] MEDS ORDERED: MECLIZINE 25 MG TABLET PO ONE (22:40)
[2021-09-15 22:42] LABS: BILIRUBIN, URINE MANUAL NEGATIVE (NEGATIVE); GLUCOSE, URINE (UA) MANUAL NEGATIVE (NEGATIVE); KETONE, URINE MANUAL NEGATIVE (NEGATIVE); UROBILINOGEN, URINE MANUAL NORMAL (NORMAL)
[2021-09-15 22:48] LABS: AMORPHOUS SEDIMENT, URINE MOD AMOUNT (NEGATIVE); BACTERIA, URINE LARGE AMOUNT; HYALINE CAST, URINE NONE SEEN /lpf (0-1); RBC, URINE TNTC /hpf (0-3); SQUAMOUS EPITHELIAL CELL URINE MOD AMOUNT /hpf (SMALL AMT)
[2021-09-15 23:20] LABS: AMPHETAMINES LEVEL URINE NEGATIVE (NEGATIVE); BARBITURATES URINE NEGATIVE (NEGATIVE); BENZODIAZEPINES URINE NEGATIVE (NEGATIVE); CANNABINOIDS URINE NEGATIVE (NEGATIVE); COCAINE METABOLITE URINE NEGATIVE (NEGATIVE); METHADONE URINE NEGATIVE (NEGATIVE); OPIATES URINE POSITIVE (NEGATIVE); PHENCYCLIDINE URINE NEGATIVE (NEGATIVE)
[2021-09-15] MEDS ORDERED: ONDA4TAB6 PO (23:40)
[2021-09-15 23:46] VITALS: BP 166/109
== END 2021-09-16 00:07 | disposition home or self-care (01) ==
LOC: M ED 19:47
DX: R42 Dizziness and giddiness (principal); K21.9 Gastro-esophageal reflux disease without esophagitis; F41.9 Anxiety disorder, unspecified; F31.9 Bipolar disorder, unspecified; F41.0 Panic disorder [episodic paroxysmal anxiety]; Z79.01 Long term (current) use of a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; Z79.899 Other long term (current) drug therapy; Z88.0 Allergy status to penicillin; Z88.8 Allergy status to other drugs, medicaments and biological substances; Z91.040 Latex allergy status

== ENCOUNTER 2021-09-20 19:20 | Emergency (ER) | payer MEDICARE, MEDICAID ==
[~2021-09-20] VITALS: Ht 157.5 cm; Wt 63.6 kg
[2021-09-20 20:23] LABS: BASO % 0.4 % (0.0-1.0); EOS # 0.1 10^3/uL (0.0-0.5); EOS % 1.9 % (0.0-3.0); HEMATOCRIT 37.8 % (36.0-47.0); HEMOGLOBIN 12.3 g/dl (12.0-15.5); LYMPH # 1.4 10^3/uL (1.5-5.0); LYMPH % 29.3 % (24.0-44.0); MEAN CORPUSCULAR HEMOGLOBIN 30.4 pg (27.0-33.0); MEAN CORPUSCULAR HGB CONC 32.5 g/dl (32.0-36.5); MEAN CORPUSCULAR VOLUME 93.3 fl (80.0-96.0); MONO # 0.2 10^3/uL (0.0-0.8); MONO % 5.1 % (2.0-8.0); NEUTROPHILS % 63.1 % (36.0-66.0); PLATELET COUNT, AUTOMATED 181 10^3/uL (150-450); RED BLOOD COUNT 4.05 10^6/uL (4.00-5.40); WHITE BLOOD COUNT 4.7 10^3/uL (4.0-10.0)
[2021-09-20 20:53] LABS: CK-MB VALUE MASS 1.6 NG/ML (<3.6); MB/CK RELATIVE INDEX 2.67 (< OR =4)
[2021-09-20] MEDS ORDERED: MECLIZINE 25 MG TABLET PO ONE (21:10)
[2021-09-20] MEDS ORDERED: PROMETHAZINE INJ 25 MG/ML VIAL (J2550) IV ONE (21:10)
[2021-09-20] MEDS ORDERED: NS 1,000 ML IV ONE (21:10)
[2021-09-20 21:52] LABS: ALBUMIN 3.5 GM/DL (3.2-5.2); ALT/SGPT 15 U/L (12-78); AMYLASE 66 U/L (25-115); BILIRUBIN,DIRECT 0.1 MG/DL (0.0-0.2); BILIRUBIN,TOTAL 0.3 MG/DL (0.2-1.0); BLOOD UREA NITROGEN 14 MG/DL (7-18); CALCIUM LEVEL 9.3 MG/DL (8.8-10.2); CARBON DIOXIDE LEVEL 29 MEQ/L (21-32); CHLORIDE LEVEL 106 MEQ/L (98-107); CREATININE FOR GFR 0.76 MG/DL (0.55-1.30); GLOMERULAR FILTRATION RATE > 60.0 (>45); GLUCOSE, FASTING 154 MG/DL (70-100); LIPASE 163 U/L (73-393); POTASSIUM SERUM 3.5 MEQ/L (3.5-5.1); SODIUM LEVEL 142 MEQ/L (136-145); TOTAL PROTEIN 7.3 GM/DL (6.4-8.2)
[2021-09-20] MEDS ORDERED: LORazepam 2 MG/ML VIAL IV STA (22:24)
[2021-09-21 01:19] VITALS: BP 132/86
== END 2021-09-21 01:58 | disposition home or self-care (01) ==
LOC: M ED 19:20
DX: H81.09 Meniere's disease, unspecified ear (principal); Z88.0 Allergy status to penicillin; Z88.8 Allergy status to other drugs, medicaments and biological substances; Z91.040 Latex allergy status
CPT/HCPCS: 51701; 70450; 80048; 80076; 81001; 82150; 82550; 82553; 83690; 84484; 85025; 87088; 93005; 93041; 96361; 96374; 96375; 99285; J2060

== ENCOUNTER 2021-09-22 22:55 | Emergency (ER) | payer MEDICARE, MEDICAID ==
[~2021-09-22] VITALS: Ht 149.9 cm; Wt 150.0 kg
[2021-09-23] MEDS ORDERED: MECLIZINE 25 MG TABLET PO ONE (00:15)
[2021-09-23 00:32] LABS: BASO % 0.3 % (0.0-1.0); EOS # 0.1 10^3/uL (0.0-0.5); EOS % 4.1 % (0.0-3.0); HEMATOCRIT 34.8 % (36.0-47.0); LYMPH # 1.4 10^3/uL (1.5-5.0); LYMPH % 44.1 % (24.0-44.0); MEAN CORPUSCULAR HEMOGLOBIN 30.2 pg (27.0-33.0); MEAN CORPUSCULAR HGB CONC 31.6 g/dl (32.0-36.5); MEAN CORPUSCULAR VOLUME 95.6 fl (80.0-96.0); MONO # 0.2 10^3/uL (0.0-0.8); MONO % 5.6 % (2.0-8.0); NEUTROPHILS # 1.5 10^3/uL (1.5-8.5); NEUTROPHILS % 45.6 % (36.0-66.0); PLATELET COUNT, AUTOMATED 172 10^3/uL (150-450); RED BLOOD COUNT 3.64 10^6/uL (4.00-5.40); WHITE BLOOD COUNT 3.2 10^3/uL (4.0-10.0)
[2021-09-23 01:01] LABS: CK-MB VALUE MASS 1.7 NG/ML (<3.6); MB/CK RELATIVE INDEX 2.74 (< OR =4)
[2021-09-23 01:10] LABS: BLOOD UREA NITROGEN 10 MG/DL (7-18); CALCIUM LEVEL 9.4 MG/DL (8.8-10.2); CARBON DIOXIDE LEVEL 28 MEQ/L (21-32); CHLORIDE LEVEL 107 MEQ/L (98-107); CREATININE FOR GFR 0.71 MG/DL (0.55-1.30); GLOMERULAR FILTRATION RATE > 60.0 (>45); GLUCOSE, FASTING 126 MG/DL (70-100); POTASSIUM SERUM 3.9 MEQ/L (3.5-5.1); SODIUM LEVEL 143 MEQ/L (136-145); THYROID STIMULATING HORMONE 0.467 uIU/ML (0.358-3.740)
[2021-09-23 02:27] LABS: APPEARANCE, URINE MANUAL TURBID (CLEAR); COLOR, URINE MANUAL YELLOW (YELLOW)
[2021-09-23 02:29] LABS: BILIRUBIN, URINE MANUAL NEGATIVE (NEGATIVE); GLUCOSE, URINE (UA) MANUAL NEGATIVE (NEGATIVE); KETONE, URINE MANUAL NEGATIVE (NEGATIVE); PROTEIN, URINE MANUAL NEGATIVE (NEGATIVE); UROBILINOGEN, URINE MANUAL NORMAL (NORMAL)
[2021-09-23 02:31] LABS: BLOOD URINE MANUAL POSITIVE (NEGATIVE); LEUKOCYTE ESTERASE, URINE MAN POSITIVE (NEGATIVE); NITRITE, URINE MANUAL POSITIVE (NEGATIVE)
[2021-09-23 02:38] LABS: BACTERIA, URINE LARGE AMOUNT; CALCIUM OXALATE CRYSTALS,URINE SMALL AMOUNT /hpf; SQUAMOUS EPITHELIAL CELL URINE SMALL AMOUNT /hpf (SMALL AMT); TRANSITIONAL EPI CELLS, URINE SMALL AMOUNT /hpf
[2021-09-23 02:39] LABS: HYALINE CAST, URINE NONE SEEN /lpf (0-1); MUCUS, URINE SMALL AMOUNT (NEGATIVE)
[2021-09-23] MEDS ORDERED: FOSFOMYCIN TROMETHAMINE 3 GM POWDER PACKET (MONUROL) PO ONE (02:40)
[2021-09-23 03:04] VITALS: BP 132/77
== END 2021-09-23 03:57 | disposition home or self-care (01) ==
LOC: M ED 22:55
DX: N39.0 Urinary tract infection, site not specified (principal); H81.4 Vertigo of central origin; Z88.0 Allergy status to penicillin; Z88.8 Allergy status to other drugs, medicaments and biological substances; Z91.040 Latex allergy status

== ENCOUNTER 2021-09-25 19:47 | Emergency (ER) | payer MEDICARE, MEDICAID ==
[~2021-09-25] VITALS: Ht 149.9 cm; Wt 84.1 kg
[2021-09-25 20:12] VITALS: BP 134/77
[2021-09-25 21:27] LABS: BASO % 0.4 % (0.0-1.0); EOS # 0.1 10^3/uL (0.0-0.5); HEMATOCRIT 35.6 % (36.0-47.0); HEMOGLOBIN 11.4 g/dl (12.0-15.5); LYMPH # 2.4 10^3/uL (1.5-5.0); LYMPH % 50.4 % (24.0-44.0); MEAN CORPUSCULAR HEMOGLOBIN 30.5 pg (27.0-33.0); MEAN CORPUSCULAR VOLUME 95.2 fl (80.0-96.0); MONO # 0.2 10^3/uL (0.0-0.8); MONO % 4.9 % (2.0-8.0); NEUTROPHILS # 1.9 10^3/uL (1.5-8.5); NEUTROPHILS % 41.3 % (36.0-66.0); PLATELET COUNT, AUTOMATED 168 10^3/uL (150-450); RED BLOOD COUNT 3.74 10^6/uL (4.00-5.40); WHITE BLOOD COUNT 4.7 10^3/uL (4.0-10.0)
[2021-09-25 22:04] LABS: BLOOD UREA NITROGEN 13 MG/DL (7-18); CALCIUM LEVEL 9.2 MG/DL (8.8-10.2); CARBON DIOXIDE LEVEL 27 MEQ/L (21-32); CHLORIDE LEVEL 108 MEQ/L (98-107); CREATININE FOR GFR 0.64 MG/DL (0.55-1.30); GLOMERULAR FILTRATION RATE > 60.0 (>45); GLUCOSE, FASTING 96 MG/DL (70-100); MAGNESIUM LEVEL 2.1 MG/DL (1.8-2.4); POTASSIUM SERUM 4.2 MEQ/L (3.5-5.1); SODIUM LEVEL 140 MEQ/L (136-145); THYROID STIMULATING HORMONE 0.962 uIU/ML (0.358-3.740)
[2021-09-25] MEDS ORDERED: PROMETHAZINE 25 MG TAB PO ONE (22:25)
[2021-09-25] MEDS ORDERED: PROMETHAZINE INJ 25 MG/ML VIAL (J2550) IM ONE (23:00)
== END 2021-09-26 00:05 | disposition home or self-care (01) ==
LOC: M ED 19:47 → EDBD 19:47 → M ED 09-26 00:05
DX: R11.0 Nausea (principal); R42 Dizziness and giddiness; Z88.0 Allergy status to penicillin; Z88.8 Allergy status to other drugs, medicaments and biological substances; Z91.040 Latex allergy status; Z79.899 Other long term (current) drug therapy; Z79.01 Long term (current) use of a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

== ENCOUNTER 2021-09-27 14:48 | Emergency (ER) | payer MEDICARE, MEDICAID ==
[~2021-09-27] VITALS: Ht 149.9 cm; Wt 72.7 kg
[2021-09-27 15:20] VITALS: BP 139/80
[2021-09-27] MEDS ORDERED: BOUDREAUX'S BUTT PASTE TOP ONE (17:25)
[2021-09-28] MEDS ORDERED: DEBR6.5S4 OTIC (07:24)
== END 2021-09-27 19:44 | disposition home or self-care (01) ==
LOC: M ED 14:48
DX: L29.3 Anogenital pruritus, unspecified (principal); L29.0 Pruritus ani; R19.7 Diarrhea, unspecified; G43.909 Migraine, unspecified, not intractable, without status migrainosus; K21.9 Gastro-esophageal reflux disease without esophagitis; J45.909 Unspecified asthma, uncomplicated; F31.9 Bipolar disorder, unspecified; Z88.0 Allergy status to penicillin; Z88.8 Allergy status to other drugs, medicaments and biological substances; Z91.040 Latex allergy status; Z79.899 Other long term (current) drug therapy; Z79.01 Long term (current) use of a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

== ENCOUNTER 2021-09-28 05:50 | Emergency (ER) | payer MEDICARE, MEDICAID ==
[~2021-09-28] VITALS: Ht 149.9 cm; Wt 62.1 kg
[2021-09-28] MEDS ORDERED: DEBR6.5S4 OTIC (07:24)
[2021-09-28 07:32] VITALS: BP 138/79
== END 2021-09-28 07:34 | disposition home or self-care (01) ==
LOC: M ED 05:50
DX: H61.23 Impacted cerumen, bilateral (principal); R10.2 Pelvic and perineal pain; J44.9 Chronic obstructive pulmonary disease, unspecified; J45.909 Unspecified asthma, uncomplicated; G43.909 Migraine, unspecified, not intractable, without status migrainosus; F31.9 Bipolar disorder, unspecified; F33.9 Major depressive disorder, recurrent, unspecified; F41.9 Anxiety disorder, unspecified; K21.9 Gastro-esophageal reflux disease without esophagitis; N31.9 Neuromuscular dysfunction of bladder, unspecified; Z78.0 Asymptomatic menopausal state; Z79.899 Other long term (current) drug therapy; Z79.01 Long term (current) use of a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; Z88.0 Allergy status to penicillin; Z88.8 Allergy status to other drugs, medicaments and biological substances; Z91.040 Latex allergy status

== ENCOUNTER 2021-10-01 00:03 | Emergency (ER) | payer MEDICARE, MEDICAID ==
[~2021-10-01] VITALS: Ht 157.5 cm; Wt 62.7 kg
[~2021-10-01 00:03] MED LIST changes: +DEBR6.5S4 OTIC
[2021-10-01] MEDS ORDERED: CEPH500C PO (02:00)
[2021-10-01] MEDS ORDERED: CEPHALEXIN 500 MG CAP PO ONE (02:00)
[2021-10-01 02:08] VITALS: BP 140/88
== END 2021-10-01 02:09 | disposition home or self-care (01) ==
LOC: EDBD 00:03 → M ED 00:03
DX: N39.0 Urinary tract infection, site not specified (principal); N31.9 Neuromuscular dysfunction of bladder, unspecified; Z87.440 Personal history of urinary (tract) infections; Z79.01 Long term (current) use of a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; Z79.899 Other long term (current) drug therapy; Z88.0 Allergy status to penicillin; Z88.8 Allergy status to other drugs, medicaments and biological substances; Z91.040 Latex allergy status

== ENCOUNTER 2021-10-06 00:07 | Emergency (ER) | payer MEDICARE, MEDICAID ==
[~2021-10-06] VITALS: Ht 149.9 cm; Wt 62.0 kg
[~2021-10-06 00:07] MED LIST changes: +CEPH500C PO
[2021-10-06 03:52] VITALS: BP 123/66
[2021-10-07] MEDS ORDERED: BACT800T5 PO (00:17)
[2021-10-07] MEDS ORDERED: DIFL150T PO (00:17)
[2021-10-07] MEDS ORDERED: NYST50SS SS (00:17)
== END 2021-10-06 05:53 | disposition left against medical advice (07) ==
LOC: M ED 00:07
DX: Z53.21 Procedure and treatment not carried out due to patient leaving prior to being seen by health care provider (principal)

== ENCOUNTER 2021-10-06 21:11 | Emergency (ER) | payer MEDICARE, MEDICAID ==
[~2021-10-06] VITALS: Ht 149.9 cm; Wt 62.0 kg
[2021-10-06 21:27] VITALS: BP 124/75
[2021-10-07] MEDS ORDERED: BACTRIM 160MG/800MG DS TAB PO ONE (00:15)
[2021-10-07] MEDS ORDERED: NYST50SS SS (00:17)
[2021-10-07] MEDS ORDERED: DIFL150T PO (00:17)
[2021-10-07] MEDS ORDERED: BACT800T5 PO (00:17)
== END 2021-10-07 00:48 | disposition home or self-care (01) ==
LOC: M ED 21:11
DX: N39.0 Urinary tract infection, site not specified (principal); B37.0 Candidal stomatitis; H61.90 Disorder of external ear, unspecified, unspecified ear; Z79.01 Long term (current) use of a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; Z79.899 Other long term (current) drug therapy; Z88.0 Allergy status to penicillin; Z88.8 Allergy status to other drugs, medicaments and biological substances; Z91.040 Latex allergy status

== ENCOUNTER 2021-10-08 19:41 | Emergency (ER) | payer MEDICARE, MEDICAID ==
[~2021-10-08] VITALS: Ht 149.9 cm; Wt 79.5 kg
[~2021-10-08 19:41] MED LIST changes: +DIFL150T PO; +NYST50SS SS
[2021-10-08] MEDS ORDERED: BACTRIM 160MG/800MG DS TAB PO ONE (21:20)
[2021-10-08 21:59] LABS: BASO % 0.5 % (0.0-1.0); EOS # 0.1 10^3/uL (0.0-0.5); EOS % 2.6 % (0.0-3.0); HEMATOCRIT 37.1 % (36.0-47.0); LYMPH # 2.1 10^3/uL (1.5-5.0); LYMPH % 55.1 % (24.0-44.0); MEAN CORPUSCULAR HEMOGLOBIN 30.6 pg (27.0-33.0); MEAN CORPUSCULAR HGB CONC 32.3 g/dl (32.0-36.5); MEAN CORPUSCULAR VOLUME 94.6 fl (80.0-96.0); MONO # 0.2 10^3/uL (0.0-0.8); MONO % 5.8 % (2.0-8.0); NEUTROPHILS # 1.4 10^3/uL (1.5-8.5); PLATELET COUNT, AUTOMATED 138 10^3/uL (150-450); RED BLOOD COUNT 3.92 10^6/uL (4.00-5.40); WHITE BLOOD COUNT 3.8 10^3/uL (4.0-10.0)
[2021-10-08 22:13] LABS: BLOOD UREA NITROGEN 16 MG/DL (7-18); CALCIUM LEVEL 9.6 MG/DL (8.8-10.2); CARBON DIOXIDE LEVEL 28 MEQ/L (21-32); CHLORIDE LEVEL 109 MEQ/L (98-107); CREATININE FOR GFR 0.71 MG/DL (0.55-1.30); FREE T4 1.11 NG/DL (0.76-1.46); GLOMERULAR FILTRATION RATE > 60.0 (>45); GLUCOSE, FASTING 95 MG/DL (70-100); POTASSIUM SERUM 4.2 MEQ/L (3.5-5.1); SODIUM LEVEL 142 MEQ/L (136-145); THYROID STIMULATING HORMONE 0.943 uIU/ML (0.358-3.740)
[2021-10-08 22:25] VITALS: BP 148/66
== END 2021-10-08 22:39 | disposition home or self-care (01) ==
LOC: M ED 19:41 → EDBD 19:41 → M ED 22:39
DX: N39.0 Urinary tract infection, site not specified (principal); R42 Dizziness and giddiness; Z87.440 Personal history of urinary (tract) infections; J45.909 Unspecified asthma, uncomplicated; J44.9 Chronic obstructive pulmonary disease, unspecified; Z79.02 Long term (current) use of antithrombotics/antiplatelets; Z79.899 Other long term (current) drug therapy; Z88.0 Allergy status to penicillin; Z88.8 Allergy status to other drugs, medicaments and biological substances; Z91.040 Latex allergy status

== ENCOUNTER 2021-10-10 20:36 | Emergency (ER) | payer MEDICARE, MEDICAID ==
[~2021-10-10] VITALS: Ht 149.9 cm; Wt 79.5 kg
[2021-10-10 21:03] VITALS: BP 113/62
== END 2021-10-10 23:31 | disposition left against medical advice (07) ==
LOC: EDBD 20:36 → M ED 20:36
DX: Z53.21 Procedure and treatment not carried out due to patient leaving prior to being seen by health care provider (principal)

== ENCOUNTER 2021-10-14 23:28 | Emergency (ER) | payer MEDICARE, MEDICAID ==
[~2021-10-14] VITALS: Ht 149.9 cm; Wt 68.2 kg
[2021-10-15 00:51] LABS: BASO % 0.6 % (0.0-1.0); EOS # 0.1 10^3/uL (0.0-0.5); EOS % 4.1 % (0.0-3.0); HEMATOCRIT 36.6 % (36.0-47.0); LYMPH # 1.6 10^3/uL (1.5-5.0); LYMPH % 50.8 % (24.0-44.0); MEAN CORPUSCULAR HEMOGLOBIN 30.8 pg (27.0-33.0); MEAN CORPUSCULAR HGB CONC 32.8 g/dl (32.0-36.5); MEAN CORPUSCULAR VOLUME 94.1 fl (80.0-96.0); MONO # 0.2 10^3/uL (0.0-0.8); MONO % 5.7 % (2.0-8.0); NEUTROPHILS # 1.2 10^3/uL (1.5-8.5); NEUTROPHILS % 38.8 % (36.0-66.0); PLATELET COUNT, AUTOMATED 131 10^3/uL (150-450); RED BLOOD COUNT 3.89 10^6/uL (4.00-5.40); WHITE BLOOD COUNT 3.2 10^3/uL (4.0-10.0)
[2021-10-15] MEDS ORDERED: MECLIZINE 25 MG TABLET PO ONE (01:00)
[2021-10-15 01:10] LABS: BLOOD UREA NITROGEN 18 MG/DL (7-18); CALCIUM LEVEL 9.2 MG/DL (8.8-10.2); CARBON DIOXIDE LEVEL 28 MEQ/L (21-32); CHLORIDE LEVEL 108 MEQ/L (98-107); CREATININE FOR GFR 0.85 MG/DL (0.55-1.30); GLOMERULAR FILTRATION RATE > 60.0 (>45); GLUCOSE, FASTING 88 MG/DL (70-100); MAGNESIUM LEVEL 2.2 MG/DL (1.8-2.4); POTASSIUM SERUM 4.4 MEQ/L (3.5-5.1); SODIUM LEVEL 141 MEQ/L (136-145)
[2021-10-15 04:30] VITALS: BP 146/70
== END 2021-10-15 05:45 | disposition home or self-care (01) ==
LOC: M ED 23:28
DX: R42 Dizziness and giddiness (principal); Z86.718 Personal history of other venous thrombosis and embolism; Z87.440 Personal history of urinary (tract) infections; Z82.3 Family history of stroke; Z82.49 Family history of ischemic heart disease and other diseases of the circulatory system; Z79.01 Long term (current) use of a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; Z79.899 Other long term (current) drug therapy; Z88.0 Allergy status to penicillin; Z88.8 Allergy status to other drugs, medicaments and biological substances; Z91.040 Latex allergy status

== ENCOUNTER 2021-10-18 19:28 | Emergency (ER) | payer MEDICARE, MEDICAID ==
[2021-10-19] MEDS ORDERED: MECLIZINE 25 MG TABLET PO ONE (04:30)
[2021-10-19] MEDS ORDERED: PHENAZOPYRIDINE 100 MG TAB PO ONE (04:30)
[2021-10-19] MEDS ORDERED: PYRI1TAB5 PO (04:32)
[2021-10-19 04:47] VITALS: BP 140/83
== END 2021-10-19 05:00 | disposition home or self-care (01) ==
LOC: EDBD 19:28 → M ED 19:28
DX: R42 Dizziness and giddiness (principal); R30.0 Dysuria; F31.9 Bipolar disorder, unspecified; Z87.440 Personal history of urinary (tract) infections; Z79.01 Long term (current) use of a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; Z79.899 Other long term (current) drug therapy; Z88.0 Allergy status to penicillin; Z88.8 Allergy status to other drugs, medicaments and biological substances; Z91.040 Latex allergy status

== ENCOUNTER 2021-10-21 13:35 | Emergency (ER) | payer MEDICARE, MEDICAID ==
[~2021-10-21] VITALS: Ht 149.9 cm; Wt 66.0 kg
[2021-10-21 14:39] LABS: BASO % 0.3 % (0.0-1.0); EOS % 1.2 % (0.0-3.0); HEMATOCRIT 36.3 % (36.0-47.0); HEMOGLOBIN 11.9 g/dl (12.0-15.5); LYMPH # 1.2 10^3/uL (1.5-5.0); LYMPH % 35.5 % (24.0-44.0); MEAN CORPUSCULAR HEMOGLOBIN 31.2 pg (27.0-33.0); MEAN CORPUSCULAR HGB CONC 32.8 g/dl (32.0-36.5); MEAN CORPUSCULAR VOLUME 95.3 fl (80.0-96.0); MONO # 0.2 10^3/uL (0.0-0.8); MONO % 6.3 % (2.0-8.0); NEUTROPHILS # 1.9 10^3/uL (1.5-8.5); NEUTROPHILS % 56.7 % (36.0-66.0); PLATELET COUNT, AUTOMATED 145 10^3/uL (150-450); RED BLOOD COUNT 3.81 10^6/uL (4.00-5.40); WHITE BLOOD COUNT 3.3 10^3/uL (4.0-10.0)
[2021-10-21 15:10] LABS: ALBUMIN 3.4 GM/DL (3.2-5.2); ALT/SGPT 20 U/L (12-78); BILIRUBIN,DIRECT < 0.1 MG/DL (0.0-0.2); BILIRUBIN,TOTAL 0.2 MG/DL (0.2-1.0); BLOOD UREA NITROGEN 13 MG/DL (7-18); CALCIUM LEVEL 9.8 MG/DL (8.8-10.2); CARBON DIOXIDE LEVEL 31 MEQ/L (21-32); CHLORIDE LEVEL 107 MEQ/L (98-107); CREATININE FOR GFR 0.67 MG/DL (0.55-1.30); GLOMERULAR FILTRATION RATE > 60.0 (>45); GLUCOSE, FASTING 98 MG/DL (70-100); POTASSIUM SERUM 4.3 MEQ/L (3.5-5.1); SODIUM LEVEL 142 MEQ/L (136-145); TOTAL PROTEIN 7.3 GM/DL (6.4-8.2)
[2021-10-21 16:23] VITALS: BP 170/88
== END 2021-10-21 16:36 | disposition home or self-care (01) ==
LOC: EDBD 13:35 → M ED 13:35
DX: F43.0 Acute stress reaction (principal); F31.89 Other bipolar disorder; F41.9 Anxiety disorder, unspecified; J45.909 Unspecified asthma, uncomplicated; J44.9 Chronic obstructive pulmonary disease, unspecified; K21.9 Gastro-esophageal reflux disease without esophagitis; K57.92 Diverticulitis of intestine, part unspecified, without perforation or abscess without bleeding; Z79.01 Long term (current) use of a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; Z79.899 Other long term (current) drug therapy; Z88.0 Allergy status to penicillin; Z88.8 Allergy status to other drugs, medicaments and biological substances; Z91.040 Latex allergy status

== ENCOUNTER 2021-11-08 04:32 | Emergency (ER) | payer MEDICARE, MEDICAID ==
[~2021-11-08] VITALS: Ht 149.9 cm; Wt 62.0 kg
[2021-11-08 04:09] VITALS: BP 128/76
== END 2021-11-08 05:17 | disposition home or self-care (01) ==
LOC: M ED 04:32 → EDBD 04:32 → M ED 05:17
DX: R19.7 Diarrhea, unspecified (principal); F45.0 Somatization disorder; K21.9 Gastro-esophageal reflux disease without esophagitis; F31.89 Other bipolar disorder; Z86.718 Personal history of other venous thrombosis and embolism; Z79.01 Long term (current) use of a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; Z79.899 Other long term (current) drug therapy; Z88.0 Allergy status to penicillin; Z88.8 Allergy status to other drugs, medicaments and biological substances; Z91.040 Latex allergy status

== ENCOUNTER 2021-11-09 22:24 | Emergency (ER) | payer MEDICARE, MEDICAID ==
[~2021-11-09] VITALS: Ht 149.9 cm; Wt 72.7 kg
[2021-11-10 06:58] LABS: RSV AMPLIFICATION NEGATIVE (NEGATIVE)
[2021-11-10 08:35] VITALS: BP 110/70
[2021-11-10] MEDS ORDERED: CEPHALEXIN 250MG CAPSULE PO ONE (09:55)
[2021-11-10] MEDS ORDERED: CEPH250T PO (10:00)
== END 2021-11-10 11:05 | disposition home or self-care (01) ==
LOC: EDBD 22:24 → M ED 22:24
DX: N39.0 Urinary tract infection, site not specified (principal); Z87.440 Personal history of urinary (tract) infections; Z31.9 Encounter for procreative management, unspecified; Z79.01 Long term (current) use of a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; Z79.899 Other long term (current) drug therapy; Z88.0 Allergy status to penicillin; Z88.8 Allergy status to other drugs, medicaments and biological substances; Z91.040 Latex allergy status

== ENCOUNTER 2021-11-22 16:21 | Emergency (ER) | payer MEDICARE, MEDICAID ==
[~2021-11-22] VITALS: Ht 157.5 cm; Wt 75.9 kg
[~2021-11-22 16:21] MED LIST changes: +CEPH250T PO
[2021-11-22 16:39] VITALS: BP 133/62
== END 2021-11-22 22:31 | disposition home or self-care (01) ==
LOC: EDBD 16:21 → M ED 16:21
DX: N39.0 Urinary tract infection, site not specified (principal); R19.7 Diarrhea, unspecified; Z79.01 Long term (current) use of a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; Z79.51 Long term (current) use of inhaled steroids; Z79.899 Other long term (current) drug therapy; Z88.0 Allergy status to penicillin; Z88.8 Allergy status to other drugs, medicaments and biological substances; Z91.040 Latex allergy status

== ENCOUNTER 2021-12-01 20:11 | Emergency (ER) | payer MEDICARE, MEDICAID ==
[2021-12-02 07:00] VITALS: BP 132/72
[2021-12-02] MEDS ORDERED: PYRI1TAB5 PO (07:14)
== END 2021-12-02 07:33 | disposition home or self-care (01) ==
LOC: M ED 20:11 → EDBD 20:11 → M ED 12-02 07:33
DX: R30.0 Dysuria (principal); F41.9 Anxiety disorder, unspecified; F31.89 Other bipolar disorder; Z86.718 Personal history of other venous thrombosis and embolism; G43.909 Migraine, unspecified, not intractable, without status migrainosus; J45.909 Unspecified asthma, uncomplicated; J44.9 Chronic obstructive pulmonary disease, unspecified; K21.9 Gastro-esophageal reflux disease without esophagitis; K57.32 Diverticulitis of large intestine without perforation or abscess without bleeding; K59.00 Constipation, unspecified; M54.9 Dorsalgia, unspecified; Z79.01 Long term (current) use of a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; Z79.899 Other long term (current) drug therapy; Z88.0 Allergy status to penicillin; Z88.8 Allergy status to other drugs, medicaments and biological substances; Z91.040 Latex allergy status

== ENCOUNTER 2021-12-22 08:25 | Emergency (ER) | payer MEDICARE, MEDICAID ==
[~2021-12-22] VITALS: Ht 149.9 cm; Wt 72.7 kg
[2021-12-22] MEDS ORDERED: GI COCKTAIL 50ML BTL(HYOSCYAMINE/MAALOX/LIDOCAINE VISCOUS)(1:3:1) PO ONE (09:35)
[2021-12-22 10:09] LABS: BASO % 0.4 % (0.0-1.0); EOS # 0.1 10^3/uL (0.0-0.5); EOS % 2.7 % (0.0-3.0); HEMATOCRIT 31.8 % (36.0-47.0); HEMOGLOBIN 10.3 g/dl (12.0-15.5); LYMPH # 1.3 10^3/uL (1.5-5.0); LYMPH % 55.3 % (24.0-44.0); MEAN CORPUSCULAR HEMOGLOBIN 32.3 pg (27.0-33.0); MEAN CORPUSCULAR HGB CONC 32.4 g/dl (32.0-36.5); MEAN CORPUSCULAR VOLUME 99.7 fl (80.0-96.0); MONO # 0.1 10^3/uL (0.0-0.8); MONO % 5.3 % (2.0-8.0); NEUTROPHILS % 36.3 % (36.0-66.0); PLATELET COUNT, AUTOMATED 107 10^3/uL (150-450); RED BLOOD COUNT 3.19 10^6/uL (4.00-5.40); WHITE BLOOD COUNT 2.3 10^3/uL (4.0-10.0)
[2021-12-22 10:34] LABS: ALT/SGPT 12 U/L (12-78); BILIRUBIN,DIRECT < 0.1 MG/DL (0.0-0.2); BILIRUBIN,TOTAL 0.3 MG/DL (0.2-1.0); LIPASE 94 U/L (73-393); TOTAL PROTEIN 6.5 GM/DL (6.4-8.2)
[2021-12-22 10:37] LABS: NEUTROPHILS # 0.8 10^3/uL (1.5-8.5)
[2021-12-22 12:06] VITALS: BP 158/81
[2021-12-22] MEDS ORDERED: LOPE2CAP PO (12:07)
== END 2021-12-22 12:23 | disposition home or self-care (01) ==
LOC: EDBD 08:25 → M ED 08:25
DX: Z87.19 Personal history of other diseases of the digestive system (principal); F31.89 Other bipolar disorder; J44.9 Chronic obstructive pulmonary disease, unspecified; K21.9 Gastro-esophageal reflux disease without esophagitis; J45.909 Unspecified asthma, uncomplicated; N31.9 Neuromuscular dysfunction of bladder, unspecified; K57.90 Diverticulosis of intestine, part unspecified, without perforation or abscess without bleeding; Z79.01 Long term (current) use of a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; Z79.899 Other long term (current) drug therapy; Z88.0 Allergy status to penicillin; Z88.8 Allergy status to other drugs, medicaments and biological substances; Z91.040 Latex allergy status

== ENCOUNTER 2021-12-27 12:11 | Emergency (ER) | payer MEDICARE, MEDICAID ==
[~2021-12-27] VITALS: Ht 149.9 cm; Wt 72.7 kg
[2021-12-27 17:39] VITALS: BP 128/71
== END 2021-12-27 17:45 | disposition home or self-care (01) ==
LOC: M ED 12:11
DX: R30.0 Dysuria (principal); Z87.442 Personal history of urinary calculi; N31.9 Neuromuscular dysfunction of bladder, unspecified; F41.9 Anxiety disorder, unspecified; F31.89 Other bipolar disorder; Z86.718 Personal history of other venous thrombosis and embolism; J44.9 Chronic obstructive pulmonary disease, unspecified; Z79.01 Long term (current) use of a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; Z79.899 Other long term (current) drug therapy; Z88.0 Allergy status to penicillin; Z88.8 Allergy status to other drugs, medicaments and biological substances; Z91.040 Latex allergy status

== ENCOUNTER 2021-12-29 08:35 | Emergency (ER) | payer MEDICARE, MEDICAID ==
[~2021-12-29] VITALS: Ht 149.9 cm; Wt 57.6 kg
[2021-12-29] MEDS ORDERED: LIDOCAINE 4% CREAM 5GM (LMX4) TOP ONE (10:55)
[2021-12-29] MEDS ORDERED: LIDOCAINE VISCOUS 2% SOLN 15ML UDC SS ONE (10:55)
[2021-12-29 11:15] VITALS: BP 128/69
== END 2021-12-29 11:50 | disposition home or self-care (01) ==
LOC: EDBD 08:35 → M ED 08:35
DX: R09.89 Other specified symptoms and signs involving the circulatory and respiratory systems (principal); M25.571 Pain in right ankle and joints of right foot; Z79.899 Other long term (current) drug therapy; J44.9 Chronic obstructive pulmonary disease, unspecified; F31.89 Other bipolar disorder; K21.9 Gastro-esophageal reflux disease without esophagitis; Z88.0 Allergy status to penicillin; Z88.8 Allergy status to other drugs, medicaments and biological substances; Z91.040 Latex allergy status

== ENCOUNTER 2022-01-02 17:34 | Emergency (ER) | payer MEDICARE, MEDICAID ==
[~2022-01-02] VITALS: Ht 149.9 cm; Wt 77.3 kg
[~2022-01-02 17:34] MED LIST changes: -CLON0.5T2; -LOPE1CAP5; +LOPE1CAP5 PO
[2022-01-02] MEDS ORDERED: GI COCKTAIL 50ML BTL(HYOSCYAMINE/MAALOX/LIDOCAINE VISCOUS)(1:3:1) PO ONE (17:40)
[2022-01-02 17:49] VITALS: BP 131/84
[2022-01-02] MEDS ORDERED: ONDANSETRON 4MG ORAL DISINTEGRATING TAB PO ONE (18:10)
[2022-01-02 18:29] LABS: BASO % 0.4 % (0.0-1.0); EOS # 0.1 10^3/uL (0.0-0.5); EOS % 2.1 % (0.0-3.0); HEMATOCRIT 33.2 % (36.0-47.0); HEMOGLOBIN 10.8 g/dl (12.0-15.5); LYMPH # 1.1 10^3/uL (1.5-5.0); LYMPH % 45.5 % (24.0-44.0); MEAN CORPUSCULAR HEMOGLOBIN 32.1 pg (27.0-33.0); MEAN CORPUSCULAR HGB CONC 32.5 g/dl (32.0-36.5); MEAN CORPUSCULAR VOLUME 98.8 fl (80.0-96.0); MONO # 0.2 10^3/uL (0.0-0.8); MONO % 6.4 % (2.0-8.0); NEUTROPHILS # 1.1 10^3/uL (1.5-8.5); NEUTROPHILS % 45.2 % (36.0-66.0); PLATELET COUNT, AUTOMATED 124 10^3/uL (150-450); RED BLOOD COUNT 3.36 10^6/uL (4.00-5.40); WHITE BLOOD COUNT 2.3 10^3/uL (4.0-10.0)
[2022-01-02] MEDS ORDERED: SUCRALFATE SUSP 1GM/10ML UD PO ONE (18:35)
[2022-01-02 18:53] LABS: ALBUMIN 3.5 GM/DL (3.2-5.2); ALT/SGPT 24 U/L (12-78); BILIRUBIN,DIRECT 0.1 MG/DL (0.0-0.2); BILIRUBIN,TOTAL 0.4 MG/DL (0.2-1.0); BLOOD UREA NITROGEN 15 MG/DL (7-18); CALCIUM LEVEL 9.9 MG/DL (8.8-10.2); CARBON DIOXIDE LEVEL 27 MEQ/L (21-32); CHLORIDE LEVEL 107 MEQ/L (98-107); CREATININE FOR GFR 0.64 MG/DL (0.55-1.30); GLOMERULAR FILTRATION RATE > 60.0 (>45); GLUCOSE, FASTING 112 MG/DL (70-100); LIPASE 106 U/L (73-393); POTASSIUM SERUM 4.2 MEQ/L (3.5-5.1); SODIUM LEVEL 141 MEQ/L (136-145); TOTAL PROTEIN 7.2 GM/DL (6.4-8.2)
[2022-01-03] MEDS ORDERED: LIDO1PAD TOP (12:07)
== END 2022-01-02 22:54 | disposition home or self-care (01) ==
LOC: M ED 17:34
DX: R07.0 Pain in throat (principal); R09.89 Other specified symptoms and signs involving the circulatory and respiratory systems; K21.9 Gastro-esophageal reflux disease without esophagitis; Z79.01 Long term (current) use of a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; Z79.899 Other long term (current) drug therapy; Z88.0 Allergy status to penicillin; Z88.8 Allergy status to other drugs, medicaments and biological substances; Z91.040 Latex allergy status

== ENCOUNTER 2022-01-03 08:35 | Emergency (ER) | payer MEDICARE, MEDICAID ==
[~2022-01-03] VITALS: Ht 149.9 cm; Wt 70.5 kg
[2022-01-03 08:49] VITALS: BP 119/68
[2022-01-03] MEDS ORDERED: LIDO1PAD TOP (12:07)
[2022-01-03] MEDS ORDERED: LIDOCAINE 5% (LIDODERM) PATCH TD ONE (12:10)
[2022-01-04] MEDS ORDERED: **NOTE PATIENT COMMENT** MISC XX ONE
== END 2022-01-03 12:31 | disposition home or self-care (01) ==
LOC: M ED 08:35 → EDBD 08:35 → M ED 12:31
DX: R26.0 Ataxic gait (principal); M25.551 Pain in right hip; M16.10 Unilateral primary osteoarthritis, unspecified hip; Z79.01 Long term (current) use of a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; Z79.899 Other long term (current) drug therapy; Z88.0 Allergy status to penicillin; Z88.8 Allergy status to other drugs, medicaments and biological substances; Z91.040 Latex allergy status

== ENCOUNTER 2022-01-03 21:21 | Emergency (ER) | payer MEDICARE, MEDICAID ==
[~2022-01-03] VITALS: Ht 152.4 cm; Wt 72.7 kg
[~2022-01-03 21:21] MED LIST changes: +LIDO1PAD TOP
[2022-01-03] MEDS ORDERED: ACETAMINOPHEN 325 MG TAB PO ONE (22:00)
[2022-01-04 00:32] VITALS: BP 125/74
[2022-01-05] MEDS ORDERED: CALC500C14 PO (00:45)
[2022-01-05] MEDS ORDERED: DIPH25TA4 PO (00:46)
[2022-01-05] MEDS ORDERED: DIVA250T67 PO (00:46)
== END 2022-01-04 00:34 | disposition home or self-care (01) ==
LOC: M ED 21:21
DX: S82.54XA Nondisplaced fracture of medial malleolus of right tibia, initial encounter for closed fracture (principal); S80.01XA Contusion of right knee, initial encounter; W19.XXXA Unspecified fall, initial encounter; J44.9 Chronic obstructive pulmonary disease, unspecified; M25.571 Pain in right ankle and joints of right foot; F41.1 Generalized anxiety disorder; K21.9 Gastro-esophageal reflux disease without esophagitis; Z86.718 Personal history of other venous thrombosis and embolism; K57.92 Diverticulitis of intestine, part unspecified, without perforation or abscess without bleeding; Z87.19 Personal history of other diseases of the digestive system; Z79.01 Long term (current) use of a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; Z79.899 Other long term (current) drug therapy; Z88.0 Allergy status to penicillin; Z88.8 Allergy status to other drugs, medicaments and biological substances; Z91.040 Latex allergy status

== ENCOUNTER 2022-01-04 19:21 | Inpatient (IN) | payer MEDICARE, MEDICAID ==
[~2022-01-04] VITALS: Ht 149.9 cm; Wt 72.7 kg
[2022-01-04 20:42] LABS: BASO % 0.5 % (0.0-1.0); HEMATOCRIT 30.4 % (36.0-47.0); HEMOGLOBIN 9.7 g/dl (12.0-15.5); LYMPH # 1.1 10^3/uL (1.5-5.0); LYMPH % 54.1 % (24.0-44.0); MEAN CORPUSCULAR HEMOGLOBIN 32.7 pg (27.0-33.0); MEAN CORPUSCULAR HGB CONC 31.9 g/dl (32.0-36.5); MEAN CORPUSCULAR VOLUME 102.4 fl (80.0-96.0); MONO # 0.1 10^3/uL (0.0-0.8); MONO % 4.8 % (2.0-8.0); NEUTROPHILS % 39.6 % (36.0-66.0); PLATELET COUNT, AUTOMATED 112 10^3/uL (150-450); RED BLOOD COUNT 2.97 10^6/uL (4.00-5.40); WHITE BLOOD COUNT 2.1 10^3/uL (4.0-10.0)
[2022-01-04 20:55] LABS: INR 1.17; PROTHROMBIN TIME 15.3 SECONDS (12.7-14.5)
[2022-01-04 20:56] LABS: PARTIAL THROMBOPLASTIN TIME 40.2 SECONDS (25.9-37.0)
[2022-01-04 21:12] LABS: NEUTROPHILS # 0.8 10^3/uL (1.5-8.5)
[2022-01-04 21:14] LABS: ALBUMIN 2.9 GM/DL (3.2-5.2); ALT/SGPT 27 U/L (12-78); BILIRUBIN,DIRECT 0.3 MG/DL (0.0-0.2); BILIRUBIN,TOTAL 0.4 MG/DL (0.2-1.0); BLOOD UREA NITROGEN 17 MG/DL (7-18); CALCIUM LEVEL 8.6 MG/DL (8.8-10.2); CARBON DIOXIDE LEVEL 28 MEQ/L (21-32); CHLORIDE LEVEL 108 MEQ/L (98-107); CREATININE FOR GFR 0.75 MG/DL (0.55-1.30); GLOMERULAR FILTRATION RATE > 60.0 (>45); GLUCOSE, FASTING 93 MG/DL (70-100); SODIUM LEVEL 142 MEQ/L (136-145); TOTAL PROTEIN 6.6 GM/DL (6.4-8.2)
[2022-01-04] MEDS ORDERED: KETOROLAC 30 MG/ML 1ML VIAL IV ONE (22:00)
[2022-01-05] MEDS ORDERED: ACETAMINOPHEN TAB 650MG DOSE (2X325MG) PO PRN (00:45)
[2022-01-05] MEDS ORDERED: CALC500C14 PO (00:45)
[2022-01-05] MEDS ORDERED: ALBUTEROL SULFATE 2.5 MG/0.5 ML INH NEB SOLN INH PRN (00:45)
[2022-01-05] MEDS ORDERED: MECLIZINE 25 MG TABLET PO PRN (00:45)
[2022-01-05] MEDS ORDERED: DIPH25TA4 PO (00:46)
[2022-01-05] MEDS ORDERED: DIVA250T67 PO (00:46)
[2022-01-05] MEDS ORDERED: HOME MED LIST COMPLETE! XX SCH (00:50)
[2022-01-05 01:14] LABS: RSV AMPLIFICATION NEGATIVE (NEGATIVE)
[2022-01-05 03:30] VITALS: BP 113/63
[2022-01-05] MEDS: ARIPiprazole 2 MG TAB PO SCH ×2 (05:19→22:06)
[2022-01-05 06:00] VITALS: BP 114/64
[2022-01-05 06:47] LABS: VENOUS BASE EXCESS -0.6 (-2.0-2.0); VENOUS HCO3 25.3 MEQ/L (23.0-27.0); VENOUS O2 SATURATION 95.4 % (60.0-80.0); VENOUS PARTIAL PRESSURE CO2 47.3 mmHg (38.0-50.0); VENOUS PARTIAL PRESSURE O2 81.1 mmHg (30.0-50.0); VENOUS PH 7.346 UNITS (7.330-7.430); VENOUS STANDARD HCO3 23.9 MEQ/L; VENOUS TOTAL CO2 26.7 MEQ/L (24.0-28.0)
[2022-01-05 07:07] LABS: BLOOD UREA NITROGEN 18 MG/DL (7-18); CALCIUM LEVEL 8.3 MG/DL (8.8-10.2); CARBON DIOXIDE LEVEL 28 MEQ/L (21-32); CHLORIDE LEVEL 108 MEQ/L (98-107); GLOMERULAR FILTRATION RATE > 60.0 (>45); GLUCOSE, FASTING 79 MG/DL (70-100); SODIUM LEVEL 141 MEQ/L (136-145)
[2022-01-05] MEDS: cefTRIAXone SOD 1 GM in D5W MINI-BAG PLUS 50 ML IV SCH (08:00)
[2022-01-05 08:01] LABS: HEMATOCRIT 28.6 % (36.0-47.0); MEAN CORPUSCULAR HEMOGLOBIN 32.8 pg (27.0-33.0); MEAN CORPUSCULAR HGB CONC 31.5 g/dl (32.0-36.5); MEAN CORPUSCULAR VOLUME 104.4 fl (80.0-96.0); PLATELET COUNT, AUTOMATED 112 10^3/uL (150-450); RED BLOOD COUNT 2.74 10^6/uL (4.00-5.40)
[2022-01-05 08:08] LABS: WHITE BLOOD COUNT 1.4 10^3/uL (4.0-10.0)
[2022-01-05] MEDS: AZITHROMYCIN INJ 500 MG, VIAL MATE ADAPTER 1 EACH in NS 250 ML IV SCH (08:47)
[2022-01-05] MEDS: DIVALPROEX 250 MG TAB PO SCH ×2 (09:00→22:06)
[2022-01-05] MEDS: DOCUSATE SODIUM 100MG CAPSULE PO SCH ×3 (09:00→22:06)
[2022-01-05] MEDS: LACTOBACILLUS ACIDOPHILUS CAP (BACID) PO SCH (09:00)
[2022-01-05 09:01] LABS: BASOPHILS 1 % (0-1); EOSINOPHILS 3 % (0-3); LYMPHOCYTES 45 % (16-44); MONOCYTES 4 % (0-5); NEUTROPHILS 44 % (28-66)
[2022-01-05 09:02] LABS: OVALOCYTES 2+; PLATELET ESTIMATE DECREASED (NORMAL)
[2022-01-05 09:03] LABS: TEAR DROP CELLS 1+
[2022-01-05] MEDS: APIXABAN 5 MG TAB (ELIQUIS) PO SCH ×2 (10:20→22:07)
[2022-01-05 13:05] LABS: FREE T4 1.12 NG/DL (0.76-1.46)
[2022-01-05] MEDS: clonazePAM 0.5 MG TAB PO SCH (15:56)
[2022-01-05 20:39] VITALS: BP 113/57
[2022-01-06 04:10] VITALS: BP_SYST 119; BP_SYST 124; BP_DIAS 58; BP_DIAS 63
[2022-01-06 06:00] VITALS: BP 105/60
[2022-01-06] MEDS: AZITHROMYCIN INJ 500 MG, VIAL MATE ADAPTER 1 EACH in NS 250 ML IV SCH (06:23)
[2022-01-06 06:36] LABS: EOS % 1.9 % (0.0-3.0); HEMATOCRIT 28.4 % (36.0-47.0); HEMOGLOBIN 8.8 g/dl (12.0-15.5); LYMPH # 0.8 10^3/uL (1.5-5.0); MEAN CORPUSCULAR HEMOGLOBIN 32.4 pg (27.0-33.0); MEAN CORPUSCULAR VOLUME 104.4 fl (80.0-96.0); MONO # 0.1 10^3/uL (0.0-0.8); MONO % 6.2 % (2.0-8.0); NEUTROPHILS % 41.9 % (36.0-66.0); PLATELET COUNT, AUTOMATED 108 10^3/uL (150-450); RED BLOOD COUNT 2.72 10^6/uL (4.00-5.40); WHITE BLOOD COUNT 1.6 10^3/uL (4.0-10.0)
[2022-01-06 06:55] LABS: ALBUMIN 2.6 GM/DL (3.2-5.2); ALT/SGPT 21 U/L (12-78); BILIRUBIN,TOTAL 0.2 MG/DL (0.2-1.0); BLOOD UREA NITROGEN 16 MG/DL (7-18); CALCIUM LEVEL 9.3 MG/DL (8.8-10.2); CARBON DIOXIDE LEVEL 26 MEQ/L (21-32); CHLORIDE LEVEL 111 MEQ/L (98-107); CREATININE FOR GFR 0.52 MG/DL (0.55-1.30); GLOMERULAR FILTRATION RATE > 60.0 (>45); GLUCOSE, FASTING 109 MG/DL (70-100); MAGNESIUM LEVEL 2.2 MG/DL (1.8-2.4); PHOSPHORUS LEVEL 2.9 MG/DL (2.5-4.9); POTASSIUM SERUM 4.1 MEQ/L (3.5-5.1); SODIUM LEVEL 145 MEQ/L (136-145); TOTAL PROTEIN 6.2 GM/DL (6.4-8.2)
[2022-01-06 07:20] LABS: NEUTROPHILS # 0.7 10^3/uL (1.5-8.5)
[2022-01-06] MEDS: cefTRIAXone SOD 1 GM in D5W MINI-BAG PLUS 50 ML IV SCH (09:49)
[2022-01-06] MEDS: DIVALPROEX 250 MG TAB PO SCH ×2 (09:50→20:15)
[2022-01-06] MEDS: LACTOBACILLUS ACIDOPHILUS CAP (BACID) PO SCH (09:50)
[2022-01-06] MEDS: CYCLOBENZAPRINE 10MG TABLET PO SCH (09:50)
[2022-01-06] MEDS: APIXABAN 5 MG TAB (ELIQUIS) PO SCH ×2 (09:51→20:12)
[2022-01-06] MEDS: clonazePAM 0.5 MG TAB PO SCH ×2 (09:51→20:12)
[2022-01-06] MEDS: DOCUSATE SODIUM 100MG CAPSULE PO SCH ×2 (09:51→20:15)
[2022-01-06] MEDS ORDERED: ISOVUE-370 76% 100ML VIAL As Ordered ONE (11:09)
[2022-01-06 12:30] LABS: FERRITIN 110 NG/ML (8-252); IRON (FE) 35 UG/DL (50-170); PERCENT SATURATION 18.6 % (13.2-45.0); TOTAL IRON BINDING CAPACITY 188 UG/DL (250-450)
[2022-01-06 14:00] VITALS: BP 129/81
[2022-01-06] MEDS: ARIPiprazole 2 MG TAB PO SCH (20:12)
[2022-01-06] MEDS: ANEXSIA, NORCO 7.5MG/325MG TABLET(HYDROCODONE/APAP) PO PRN (20:57)
[2022-01-06] MEDS: RAMELTEON 8 MG TAB (ROZEREM) PO PRN (21:46)
[2022-01-06 22:00] VITALS: BP 124/73
[2022-01-06] MEDS ORDERED: diphenhydrAMINE 50MG/ML VIAL (J1200) IV ONE (22:00)
[2022-01-07 05:36] LABS: BILIRUBIN, URINE MANUAL NEGATIVE (NEGATIVE); GLUCOSE, URINE (UA) MANUAL NEGATIVE (NEGATIVE); KETONE, URINE MANUAL NEGATIVE (NEGATIVE); UROBILINOGEN, URINE MANUAL NORMAL (NORMAL)
[2022-01-07 05:39] LABS: BACTERIA, URINE SMALL AMOUNT; HYALINE CAST, URINE NONE SEEN /lpf (0-1); SQUAMOUS EPITHELIAL CELL URINE SMALL AMOUNT /hpf (SMALL AMT)
[2022-01-07 06:00] VITALS: BP 134/74
[2022-01-07 06:23] LABS: BASO % 0.6 % (0.0-1.0); EOS % 2.6 % (0.0-3.0); HEMATOCRIT 28.4 % (36.0-47.0); HEMOGLOBIN 8.8 g/dl (12.0-15.5); LYMPH # 0.9 10^3/uL (1.5-5.0); LYMPH % 56.8 % (24.0-44.0); MEAN CORPUSCULAR HEMOGLOBIN 31.8 pg (27.0-33.0); MEAN CORPUSCULAR VOLUME 102.5 fl (80.0-96.0); MONO # 0.1 10^3/uL (0.0-0.8); MONO % 5.8 % (2.0-8.0); NEUTROPHILS % 34.2 % (36.0-66.0); PLATELET COUNT, AUTOMATED 115 10^3/uL (150-450); RED BLOOD COUNT 2.77 10^6/uL (4.00-5.40); WHITE BLOOD COUNT 1.6 10^3/uL (4.0-10.0)
[2022-01-07 06:34] LABS: NEUTROPHILS # 0.5 10^3/uL (1.5-8.5)
[2022-01-07] MEDS: AZITHROMYCIN INJ 500 MG, VIAL MATE ADAPTER 1 EACH in NS 250 ML IV SCH (06:43)
[2022-01-07 08:55] LABS: VITAMIN B12 LEVEL 951 PG/ML (247-911)
[2022-01-07 08:56] LABS: FOLATE 19.8 NG/ML (>5.4)
[2022-01-07] MEDS: cefTRIAXone SOD 1 GM in D5W MINI-BAG PLUS 50 ML IV SCH (09:56)
[2022-01-07] MEDS: LACTOBACILLUS ACIDOPHILUS CAP (BACID) PO SCH (09:57)
[2022-01-07] MEDS: DOCUSATE SODIUM 100MG CAPSULE PO SCH ×2 (09:57→20:31)
[2022-01-07] MEDS: clonazePAM 0.5 MG TAB PO SCH ×2 (09:57→20:22)
[2022-01-07] MEDS: APIXABAN 5 MG TAB (ELIQUIS) PO SCH (09:57)
[2022-01-07] MEDS: CYCLOBENZAPRINE 10MG TABLET PO SCH (09:57)
[2022-01-07] MEDS: DIVALPROEX 250 MG TAB PO SCH ×2 (10:00→20:21)
[2022-01-07 14:00] VITALS: BP 140/65
[2022-01-07] MEDS ORDERED: diphenhydrAMINE 50MG CAP PO ONE (19:55)
[2022-01-07] MEDS: RAMELTEON 8 MG TAB (ROZEREM) PO PRN (20:21)
[2022-01-07] MEDS: ARIPiprazole 2 MG TAB PO SCH (20:21)
[2022-01-07] MEDS: ANEXSIA, NORCO 7.5MG/325MG TABLET(HYDROCODONE/APAP) PO PRN (20:23)
[2022-01-07 22:00] VITALS: BP 146/80
[2022-01-08 06:00] VITALS: BP 123/70
[2022-01-08 06:12] LABS: BASO % 0.6 % (0.0-1.0); EOS # 0.1 10^3/uL (0.0-0.5); HEMATOCRIT 29.2 % (36.0-47.0); HEMOGLOBIN 9.3 g/dl (12.0-15.5); LYMPH # 0.9 10^3/uL (1.5-5.0); LYMPH % 50.9 % (24.0-44.0); MEAN CORPUSCULAR HEMOGLOBIN 32.5 pg (27.0-33.0); MEAN CORPUSCULAR HGB CONC 31.8 g/dl (32.0-36.5); MEAN CORPUSCULAR VOLUME 102.1 fl (80.0-96.0); MONO # 0.1 10^3/uL (0.0-0.8); MONO % 4.6 % (2.0-8.0); NEUTROPHILS % 39.9 % (36.0-66.0); PLATELET COUNT, AUTOMATED 110 10^3/uL (150-450); RED BLOOD COUNT 2.86 10^6/uL (4.00-5.40); WHITE BLOOD COUNT 1.8 10^3/uL (4.0-10.0)
[2022-01-08] MEDS: AZITHROMYCIN INJ 500 MG, VIAL MATE ADAPTER 1 EACH in NS 250 ML IV SCH (06:20)
[2022-01-08 06:37] LABS: NEUTROPHILS # 0.7 10^3/uL (1.5-8.5)
[2022-01-08 06:44] LABS: BLOOD UREA NITROGEN 14 MG/DL (7-18); CALCIUM LEVEL 9.7 MG/DL (8.8-10.2); CARBON DIOXIDE LEVEL 28 MEQ/L (21-32); CHLORIDE LEVEL 107 MEQ/L (98-107); CREATININE FOR GFR 0.62 MG/DL (0.55-1.30); GLOMERULAR FILTRATION RATE > 60.0 (>45); GLUCOSE, FASTING 115 MG/DL (70-100); SODIUM LEVEL 143 MEQ/L (136-145)
[2022-01-08 06:45] LABS: MAGNESIUM LEVEL 2.1 MG/DL (1.8-2.4); PHOSPHORUS LEVEL 2.8 MG/DL (2.5-4.9)
[2022-01-08] MEDS ORDERED: GLUCAGON INJ 1MG VIAL SC PRN (08:35)
[2022-01-08] MEDS ORDERED: GLUCOSE 4GM CHEW TABLET PO PRN (08:35)
[2022-01-08] MEDS ORDERED: DEXTROSE 50% 50 ML SYRINGE IV PRN (08:35)
[2022-01-08] MEDS: LACTOBACILLUS ACIDOPHILUS CAP (BACID) PO SCH (08:40)
[2022-01-08] MEDS: clonazePAM 0.5 MG TAB PO SCH ×2 (08:41→20:37)
[2022-01-08] MEDS: DIVALPROEX 250 MG TAB PO SCH ×2 (08:41→20:38)
[2022-01-08] MEDS: DOCUSATE SODIUM 100MG CAPSULE PO SCH ×3 (08:41→20:38)
[2022-01-08] MEDS: CYCLOBENZAPRINE 5MG TABLET PO SCH (08:41)
[2022-01-08] MEDS: cefTRIAXone SOD 1 GM in D5W MINI-BAG PLUS 50 ML IV SCH (08:43)
[2022-01-08] MEDS: INSULIN LISPRO (NovoLOG) PER UNIT SC SCH ×3 (09:14→16:32)
[2022-01-08 14:00] VITALS: BP 146/94
[2022-01-08] MEDS: ARIPiprazole 2 MG TAB PO SCH (20:37)
[2022-01-08 20:39] VITALS: BP 133/83
[2022-01-08] MEDS: APIXABAN 5 MG TAB (ELIQUIS) PO SCH (21:00)
[2022-01-09 06:00] VITALS: BP 133/83
[2022-01-09] MEDS: INSULIN LISPRO (NovoLOG) PER UNIT SC SCH ×2 (06:00)
[2022-01-09] MEDS: AZITHROMYCIN INJ 500 MG, VIAL MATE ADAPTER 1 EACH in NS 250 ML IV SCH (06:05)
[2022-01-09 06:26] LABS: HEMATOCRIT 30.2 % (36.0-47.0); HEMOGLOBIN 9.8 g/dl (12.0-15.5); MEAN CORPUSCULAR HEMOGLOBIN 32.8 pg (27.0-33.0); MEAN CORPUSCULAR HGB CONC 32.5 g/dl (32.0-36.5); PLATELET COUNT, AUTOMATED 120 10^3/uL (150-450); RED BLOOD COUNT 2.99 10^6/uL (4.00-5.40)
[2022-01-09 06:56] LABS: BLOOD UREA NITROGEN 9 MG/DL (7-18); CALCIUM LEVEL 9.7 MG/DL (8.8-10.2); CARBON DIOXIDE LEVEL 28 MEQ/L (21-32); CHLORIDE LEVEL 105 MEQ/L (98-107); GLOMERULAR FILTRATION RATE > 60.0 (>45); GLUCOSE, FASTING 103 MG/DL (70-100); PHOSPHORUS LEVEL 3.7 MG/DL (2.5-4.9); POTASSIUM SERUM 4.1 MEQ/L (3.5-5.1); SODIUM LEVEL 140 MEQ/L (136-145)
[2022-01-09] MEDS ORDERED: LIDOCAINE 1% MDV 20ML VIAL As Ordered ONE (08:45)
[2022-01-09] MEDS: DOCUSATE SODIUM 100MG CAPSULE PO SCH ×2 (09:00→19:17)
[2022-01-09 09:35] VITALS: BP 140/79
[2022-01-09] MEDS: cefTRIAXone SOD 1 GM in D5W MINI-BAG PLUS 50 ML IV SCH (10:40)
[2022-01-09] MEDS: clonazePAM 0.5 MG TAB PO SCH (10:40)
[2022-01-09] MEDS: LACTOBACILLUS ACIDOPHILUS CAP (BACID) PO SCH (10:40)
[2022-01-09] MEDS: APIXABAN 5 MG TAB (ELIQUIS) PO SCH ×2 (10:40→19:16)
[2022-01-09] MEDS: CYCLOBENZAPRINE 5MG TABLET PO SCH (10:44)
[2022-01-09] MEDS: DIVALPROEX 250 MG TAB PO SCH ×2 (10:44→19:16)
[2022-01-09] MEDS ORDERED: LORazepam 1 MG TAB PO PRN (16:15)
[2022-01-09] MEDS: ARIPiprazole 2 MG TAB PO SCH (19:16)
[2022-01-09] MEDS: ANEXSIA, NORCO 7.5MG/325MG TABLET(HYDROCODONE/APAP) PO PRN (19:16)
== END 2022-01-09 19:45 | disposition short-term general hospital (02) | DRG 689 ==
LOC: M ED 19:21 → M ED INP 19:22 → ENRESERV 01-05 02:18 → M MSPAV 01-05 03:30 → OBSVTOIN 01-05 06:31
PROVIDERS: ADMIT Internal Medicine; ATTEND Internal Medicine
PROC: BW24YZZ Computerized Tomography (CT Scan) of Chest and Abdomen using Other Contrast (ICD-10-PCS; 2022-01-06)
PROC: 07DR3ZX Extraction of Iliac Bone Marrow, Percutaneous Approach, Diagnostic (ICD-10-PCS; principal; 2022-01-09 08:40)
DX: N39.0 Urinary tract infection, site not specified (principal); G93.41 Metabolic encephalopathy; D61.818 Other pancytopenia; S82.54XA Nondisplaced fracture of medial malleolus of right tibia, initial encounter for closed fracture; S80.01XA Contusion of right knee, initial encounter; W19.XXXA Unspecified fall, initial encounter; Z79.01 Long term (current) use of a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; Z79.899 Other long term (current) drug therapy; Z88.0 Allergy status to penicillin; Z88.5 Allergy status to narcotic agent; Z88.8 Allergy status to other drugs, medicaments and biological substances; Z91.040 Latex allergy status; F41.9 Anxiety disorder, unspecified; M54.9 Dorsalgia, unspecified; Z90.49 Acquired absence of other specified parts of digestive tract; F31.9 Bipolar disorder, unspecified; R33.9 Retention of urine, unspecified; R42 Dizziness and giddiness; R26.89 Other abnormalities of gait and mobility; Z86.718 Personal history of other venous thrombosis and embolism